=== PATIENT | male | born 1960 | race African-American/Black ===

== ENCOUNTER 2016-11-18 10:30 | Inpatient (IN) | payer BC ==
[~2016-11-18] VITALS: Ht 175.3 cm; Wt 96.7 kg
[~2016-11-18 10:30] MED LIST: HYDR12.58 PO; METF500T4 PO; METO-269 PO
[2016-11-18] MEDS ORDERED: LOSA25TA4 PO (11:03)
[2016-11-18] MEDS ORDERED: METF500T4 PO (11:04)
[2016-11-18] MEDS ORDERED: TAMS0.4C2 PO (11:04)
[2016-11-18] MEDS ORDERED: MELO-156 PO (11:04)
--- NOTE | 2016-11-18 11:05 | PHYS DOC ---
Past Medical History Past Medical History: Hypertension Additional Past Surgical Histo: L knee, R shoulder Adult General Chief Complaint Chief Complaint: OTHER COMPLAINTS HPI HPI Patient is a 55 year old male who presents with L side numbness. Patient reports he was getting ready for islam ~1015 when he started having L side numbness. He reports the sensation started in his face the progressed to his L arm and eventually to his L leg as well. This has mostly resolved by this point. He says he may have had a little weakness as well, but not at this time. No prior similar episodes. Patient noted to have elevated blood pressure; he has not yet taken his daily meds for this. Review of Systems Review of Systems Constitutional: Denies fever or chills Eyes: Denies change in visual acuity or eye pain HENT: Denies nasal congestion or sore throat Respiratory: Denies cough or shortness of breath Cardiovascular: Denies chest pain GI: Denies abdominal pain, nausea, vomiting, bloody stools or diarrhea : Denies dysuria or hematuria Musculoskeletal: Denies back pain or joint pain Integument: Denies rash or skin lesions Neurologic: L side numbness. Denies headache Current Medications Current Medications Current Medications Medications (Trade) Dose Ordered Sig/Vernon Start Time Stop Time Status Last Admin Dose Admin Hydralazine HCl (Apresoline) 10 mg 1X ONCE 11/18/16 11:30 11/18/16 11:31 DC 11/18/16 11:43 10 MG Allergies Allergies Allergies Coded Allergies Type Severity Reaction Last Updated Verified No Known Drug Allergies 10/07/15 No Physical Exam Physical Exam Constitutional: Well developed, well nourished, no acute distress, non-toxic appearance HENT: Normocephalic, atraumatic, bilateral external ears normal Eyes: PERRL, EOMI, conjunctiva normal, no discharge Neck: Normal range of motion, no stridor Cardiovascular: Heart rate normal, regular rhythm, no murmur Lungs & Thorax: Bilateral breath sounds clear to auscultation Abdomen: Bowel sounds normal, soft, non-distended, no TTP Skin: Warm, dry, no erythema, no rash Extremities: No obvious deformity, no edema Neurologic: Alert and oriented X 3, GCS 15, CN II-XII grossly intact except for L facial numbness, strength intact and symmetrical throughout, sensation to light touch intact diminished in LUE/LLE compared to RUE/RLE, no dystaxia noted Psychologic: Affect normal, judgement normal, mood normal Current Patient Data Vital Signs Vital Signs Date Time Temp Pulse Resp B/P Pulse Ox O2 Delivery O2 Flow Rate FiO2 11/18/16 11:43 57 187/88 11/18/16 10:46 98.4 18 95 Room Air 98.4 Lab Values Laboratory Tests Test 11/18/16 11:25 White Blood Count 5.8x10^3/uL (4.0-11.0) Red Blood Count 4.79x10^6/uL (4.30-5.70) Hemoglobin 13.5g/dL (13.0-17.5) Hematocrit 41.2% (39.0-53.0) Mean Corpuscular Volume 86fL (79-100) Mean Corpuscular Hemoglobin 28pg (25-35) Mean Corpuscular Hemoglobin Concent 33g/dL (31-37) Red Cell Distribution Width 14.1% (11.5-14.5) Platelet Count 187x10^3/uL (140-400) Neutrophils (%) (Auto) 54% (31-73) Lymphocytes (%) (Auto) 32% (24-48) Monocytes (%) (Auto) 10% (0-9) H Eosinophils (%) (Auto) 3% (0-3) Basophils (%) (Auto) 1% (0-3) Neutrophils # (Auto) 3.1x10^3uL (1.8-7.7) Lymphocytes # (Auto) 1.8x10^3/uL (1.0-4.8) Monocytes # (Auto) 0.6x10^3/uL (0.0-1.1) Eosinophils # (Auto) 0.2x10^3/uL (0.0-0.7) Basophils # (Auto) 0.1x10^3/uL (0.0-0.2) Prothrombin Time 13.9SEC (11.7-14.0) Prothrombin Time INR 1.1 (0.8-1.1) PTT 31SEC (24-38) Sodium Level 144mmol/L (136-145) Potassium Level 4.0mmol/L (3.5-5.1) Chloride Level 107mmol/L (98-107) Carbon Dioxide Level 27mmol/L (21-32) Anion Gap 10 (6-14) Blood Urea Nitrogen 16mg/dL (8-26) Creatinine 1.1mg/dL (0.7-1.3) Estimated GFR (Cockcroft-Gault) 83.8 BUN/Creatinine Ratio 15 (6-20) Glucose Level 135mg/dL (70-99) H Calcium Level 8.8mg/dL (8.5-10.1) Total Bilirubin 0.8mg/dL (0.2-1.0) Aspartate Amino Transferase (AST) 17U/L (15-37) Alanine Aminotransferase (ALT) 21U/L (16-63) Alkaline Phosphatase 59U/L (46-116) Total Protein 7.1g/dL (6.4-8.2) Albumin 3.5g/dL (3.4-5.0) Albumin/Globulin Ratio 1.0 (1.0-1.7) Laboratory Tests 11/18/16 11:25 Laboratory Tests 11/18/16 11:25 EKG EKG EKG (my read): sinus rhythm, rate 59, LAD, intervals wnl except RR 1016ms, no acute ST/T changes Radiology/Procedures Radiology/Procedures CT head: IMPRESSION: 1. Scattered areas of hypodensity within the cerebral white matter, a nonspecific finding which may be due to chronic small vessel disease. This is not only seen on the remote prior study. 2. Note is made that MRI is more sensitive for acute infarction. CXR: IMPRESSION: No acute pulmonary finding. Course & Med Decision Making Course & Med Decision Making Pertinent Labs and Imaging studies reviewed. (See chart for details) Patient is 55 year old male who presents with L side numbness. Symptoms improving. Concern for TIA. Given no findings other than numbness on exam as well as resolution of symptoms, I believe the risk of tPA for this patient far outweighs the possible benefit. CT head, CXR, EKG, labs ordered to evaluate. Dose of HTN meds ordered. Imaging results as above. Blood work unremarkable. Discussed results with patient, who at this time only has numbness in his L face. Discussed with Dr. Gil, will admit under his care for further evaluation and treatment. Dragon Disclaimer Dragon Disclaimer This electronic medical record was generated, in whole or in part, using a voice recognition dictation system. Departure Departure Impression: Primary Impression: Numbness and tingling of left side of face Additional Impressions: Numbness and tingling of left leg Numbness and tingling in left arm Disposition: 09 ADMITTED INPATIENT Admitting Physician: Ahsan Gil Condition: STABLE Referrals: DILLON ROJAS (PCP) Problem Qualifiers LISSETTE GILMORE MD Nov 18, 2016 11:05
[2016-11-18] MEDS ORDERED: hydrALAZINE 20 MG/ML VIAL. IVP ONE (11:30)
[2016-11-18 11:31] LABS: BASO # 0.1 x10^3/uL (0.0-0.2); BASO % 1 % (0-3); EOS % 3 % (0-3); HEMATOCRIT 41.2 % (39.0-53.0); HEMOGLOBIN 13.5 g/dL (13.0-17.5); LYMPH # 1.8 x10^3/uL (1.0-4.8); LYMPH % 32 % (24-48); MEAN CORPUSCULAR HEMOGLOBIN 28 pg (25-35); MEAN CORPUSCULAR HGB CONC 33 g/dL (31-37); MEAN CORPUSCULAR VOLUME 86 fL (79-100); MONO % 10 % (0-9); NEUT % 54 % (31-73); PLATELET COUNT 187 x10^3/uL (140-400); RED BLOOD COUNT 4.79 x10^6/uL (4.30-5.70); RED CELL DISTRIBUTION WIDTH 14.1 % (11.5-14.5); WHITE BLOOD COUNT 5.8 x10^3/uL (4.0-11.0)
--- NOTE | 2016-11-18 11:35 | RAD ---
EXAM: Chest, single view. HISTORY: Left-sided numbness. COMPARISON: 08/24/2015. FINDINGS: A frontal view of the chest is obtained. There is no infiltrate, effusion or pneumothorax. The heart is normal in size. IMPRESSION: No acute pulmonary finding.
[2016-11-18 11:41] LABS: INR 1.1 (0.8-1.1); PROTHROMBIN TIME PATIENT 13.9 SEC (11.7-14.0)
[2016-11-18 11:42] LABS: CALCIUM 8.8 mg/dL (8.5-10.1); CREATININE 1.1 mg/dL (0.7-1.3); GFR 83.8
--- NOTE | 2016-11-18 11:42 | RAD ---
EXAM: Head CT without contrast. HISTORY: Left-sided numbness. TECHNIQUE: Computed tomographic images of the head were obtained without contrast. COMPARISON: 02/10/2010. FINDINGS: There is no acute or subacute extra-axial or intraparenchymal hemorrhage. There is no mass effect or midline shift. There is no hydrocephalus. There are areas of decreased attenuation within the cerebral white matter, nonspecific and likely related to chronic small vessel disease. The visualized portions of the orbits, paranasal sinuses and mastoid air cells are unremarkable. No suspicious calvarial lesion is seen. IMPRESSION: 1. Scattered areas of hypodensity within the cerebral white matter, a nonspecific finding which may be due to chronic small vessel disease. This is not only seen on the remote prior study. 2. Note is made that MRI is more sensitive for acute infarction. PQRS Compliance Statement: One or more of the following individualized dose reduction techniques were utilized for this examination: 1. Automated exposure control 2. Adjustment of the mA and/or kV according to patient size 3. Use of iterative reconstruction technique
[2016-11-18 11:48] LABS: ALBUMIN 3.5 g/dL (3.4-5.0); TOTAL BILIRUBIN 0.8 mg/dL (0.2-1.0); TOTAL PROTEIN 7.1 g/dL (6.4-8.2)
[2016-11-18] MEDS ORDERED: ONDANSETRON PF 4 MG/2 ML VIAL. IV PRN (12:30)
[2016-11-18] MEDS ORDERED: ACETAMINOPHEN 325 MG TABLET. PO PRN (12:30)
[2016-11-18] MEDS ORDERED: MORPHINE SULFATE 2 MG/ML DISP.SYRIN. IV PRN (12:30)
--- NOTE | 2016-11-18 12:41 | EKG ---
[facility] [address] [place] [address] Test Date: 2016-11-18 Test Time: 11:11:29 Pat Name: JENI STARK Department: Room: [facility] Gender: M Voice Intercept Technician: [ : 1960 Requested By: LISSETTE GILMORE Order Number: [id number] Reading MD: Danisha Kwon Measurements Intervals [place] Rate: 59 P: 28 CA: 164 QRS: -22 QRSD: 72 T: -22 QT: 406 QTc: 406 Interpretive Statements SINUS RHYTHM LEFTWARD AXIS T ABNORMALITY IN INFERIOR LEADS RI6.01 No previous ECG available for comparison Electronically Signed On 11-18-2016 19:29:12 CDT by Danisha Kwon
--- NOTE | 2016-11-18 12:43 | ACF ---
Admission Forms Criteria NEUROLOGY GRG Clinical Indications for Admission to Inpatient Care (Place ' X' for any and all applicable criteria): Hospital admission is needed for appropriate care of the patient because of ANY ONE of the following: [ ]I. New-onset or worsening altered mental status remaining after emergency or observation level care (as appropriate) (9)(10)(11) [ ]II. Severe J[employer] WORKER infections or inflammatory conditions, including ANY ONE of the following(1)(2)(3): [ ]a) Intracranial abscess [ ]b) Spinal abscess or myelitis [ ]c) Tuberculous or other nonbacterial, nonviral JIG WORKER infection(8) [ ]III. Encephalitis(1)(2)(3) [ ]IV. Status epilepticus or repetitive seizures not controlled with emergent treatment [A] (7)(8) [ ]V. Transient alteration in consciousness with high-risk etiology; examples include (12)(13): [ ]a) Cardiovascular source [ ]b) Cataplexy [ ]. Cerebral aneurysm requiring ANY ONE of the following(14): [ ]a) IV antihypertensives or vasoactive agents [ ]b) Sedation and analgesia for suspected leak [ ]c) Need for external ventricular drainage and cerebral perfusion pressure monitoring [ ]d) Emergent evaluation to determine need for surgical clipping or endovascular coiling by interventional radiology. If surgery is required ( Also use Craniotomy, Supratentorial, for Surgery of Bleeding Intracranial Aneurysm (for bleeding aneurysm) or Craniotomy, Supratentorial (for nonbleeding aneurysm) as appropriate. [ ]VII. Altered mental status that is severe or persistent(16) [ ]VIII New-onset severe neurologic findings requiring inpatient care; examples include: [ ]a) Papilledema [ ]b) Cerebral edema [ ]c) Mass effect on imaging [X]IX. New-onset severe neurologic symptom requiring inpatient care indicated by ANY ONE of the following: [ ]a) Aphasia(15) [ ]b) Weakness (grade 3 or less) [ ]c) Paralysis (eg, hemiplegia) [ ]d) Spasticity(16) [ ]e) Ataxia(17) [ ]f) Amnesia(18) [ ]g) Involuntary movements(19) [ ]h) Vertigo [X]i) Other severe neurologic symptom not treatable at alternative level of care (eg, observation care) [ ]X. Guillain-[place] syndrome(20) [ ]XI. Myasthenia gravis crisis or inpatient monitoring need as indicated by ANY ONE of the following(21): [ ]a) Inadequate airway protection [ ]b) Respiratory insufficiency requiring intubation or inpatient. monitoring [ ]c) Progressive dysphagia with failure to thrive [ ]d) Intensive treatment (eg, course of plasmapheresis) with inadequate outpatient situation to monitor patients status [ ]XII. Multiple sclerosis or other acute demyelinating disease requiring inpatient care as indicated by ANY ONE of the following (22)(23): [ ]a) Acute severe deterioration requiring inpatient treatment (eg, IV steroids, plasmapheresis, close observation) [ ]b) Acute complication requiring inpatient care (eg, sepsis, severe decubitus, aspiration) [ ]XIII. Intracranial hypertension (eg, pseudotumor cerebri) requiring inpatient care (eg, acute visual loss, inadequate oral intake) (24) [ ]XIV.Parkinson disease requiring inpatient care (Also use Optimal Recovery Care Criteria or General Recovery Criteria as appropriate) indicated by ANY ONE of the following(25): [ ]a) Infection (eg, aspiration pneumonia) not treatable at alternative level of care [ ]b) Volume depletion not responsive to emergency and observation care treatment (as appropriate) [ ]c) Life-threatening agitation or psychotic behavior not treatable on emergency, observation care, or alternative level (eg, residential) basis [ ]d) Severe medication withdrawal effects (eg, freezing, neuroleptic malignant syndrome) not responsive to emergency and observation care treatment (as appropriate) [ ]e) Other severe manifestation not treatable at alternative level of care [ ]XV.Amyotrophic lateral sclerosis with inpatient care needs as indicated by ANY ONE of the following(26): [ ]a) Acute complications requiring inpatient care (Use Optimal Recovery Care Criteria or General Recovery Criteria as appropriate); examples include: [ ]i) Aspiration pneumonia [ ]ii) Sepsis [ ]b) Dehydration or hypovolemia (not responsive to emergency and observation care treatment as appropriate) AND artificial support desired [ ]c) Inadequate airway protection AND artificial support desired [ ]d) Severe ventilatory insufficiency AND artificial support desired [ ]XVI.Severe myopathy, neuropathy, or other neuromuscular disease as indicated by ANY ONE of the following: [ ]a) New-onset severe diffuse weakness (eg, strength 3/5 or less) [ ]b) Severe dysphagia [ ]c) Dyspnea at rest or with minimal exertion (new) [ ]d) Inadequate airway protection [ ]e) Inadequate ventilation as indicated by ANY ONE of the following : [ ]i) Partial pressure of carbon dioxide greater than 44 mm Hg (5.9 kPa) (new) [ ]ii) Reduced peak expiratory flow rate (new) [ ]iii) Vital capacity less than 50% of predicted ( less than 15 mL/kg) [ ]iv) Peak inspiratory force less negative than -30 cm H20 (-2942 Pa) [ ]XVII.Complications of congenital or degenerative disease (eg, infection, seizures, dehydration, injury) not responsive to emergency and observation care treatment (as appropriate ) [C](16)(29)(30) [ ]XVIII.Suspected or confirmed nerve or muscle toxic injury, including ANY ONE of the following: [ ]a) Rhabdomyolysis(31) [ ]b) Botulism(32) [ ]c) Other severe toxin-induced sign or symptom [ ]XIX. Neurologic trauma requiring inpatient treatment (medical) indicated by ANY ONE of the following(33)(34): [ ]a) Vital signs or neurologic signs more frequently than every 4 hours [ ]b) Hyperosmolar therapy [ ]c) Respiratory monitoring [ ]d) Intracranial pressure monitoring and treatment [ ]e) Stabilization and immobilization device placement (eg, braces, body jacket) [ ]f) Intubation & mechanical ventilation for airway protection or therapeutic hyperventilation [ ]g) Other treatment or monitoring needed that requires inpatient level of care [ ]XX.Complications of neurologic devices (eg, ventricular shunt, neurostimulator) requiring ANY ONE of the following(35)(36): [ ]a) IV antibiotics with monitoring while awaiting culture results [ ]b) Monitoring for hydrocephalus [ ]XXI Vasculitis with ANY ONE of the following(4)(5): [ ]a) Altered mental status [ ]b) Psychosis [ ]c) Seizures [ ]XXII. Neurology condition and ALL of the following: [ ]a) Symptom or finding for which emergency and observation care have failed or are not considered appropriate (Use General Criteria: Observation Care as appropriate) [ ]b) Presence of ANY ONE of the following: [ ]i) A General Admission Criteria [ ]ii A Pediatric General Admission Criteria The original [facility] content created by Rodrick Coppola has been revised. The portions of the content which have been revised are identified through the use of italic text or in bold, and [facility] has neither reviewed nor approved the modified material. All other unmodified content is copyright [facility] Please see references footnoted in the original [facility] edition 2016 Admission Criteria Met?: Yes MACHO BEDOYA Nov 18, 2016 12:43
[2016-11-18] MEDS ORDERED: ASPIRIN ENTERIC COATED 325 MG TABLET.DR. PO ONE (13:00)
[2016-11-18 14:17] VITALS: BP 171/93
[2016-11-18] MEDS ORDERED: METO100T11 (14:21)
[2016-11-18] MEDS: METOPROLOL SUCC 24HR ER 100 MG TAB.ER.24H. PO SCH (14:49)
[2016-11-18 15:30] VITALS: BP 171/93
[2016-11-18] MEDS ORDERED: LOSARTAN POTASSIUM 25 MG TABLET. PO SCH (15:30)
[2016-11-18] MEDS: TAMSULOSIN 0.4 MG CAP.ER.24H. PO SCH (15:39)
[2016-11-18] MEDS: MELOXICAM 7.5 MG TABLET PO SCH (15:39)
[2016-11-18 15:59] LABS: BILIRUBIN,URINE NEGATIVE (NEG); GLUCOSE,URINE NEGATIVE (NEG); NITRITE,URINE NEGATIVE (NEG); PROTEIN,URINE NEGATIVE (NEG-TRACE); UROBILINOGEN,URINE 0.2 mg/dL (0.2 mg/dL)
[2016-11-18 16:08] LABS: BARBITURATES NEG (NEG); BENZODIAZEPINES NEG (NEG); CANNABINOIDS NEG (NEG); COCAINE NEG (NEG); METHADONE NEG (NEG); OPIATES NEG (NEG); PHENCYCLIDINE NEG (NEG)
[2016-11-18 16:09] LABS: ETHANOL, URINE NEG (NEG)
[2016-11-18] MEDS ORDERED: LOSA100T6 PO (16:11)
[2016-11-18 16:14] LABS: BACTERIA,URINE 0 /HPF (0-FEW); RBC,URINE RARE /HPF (0-2); SQUAMOUS EPITHELIAL CELL,UR OCC /LPF; WBC,URINE 0 /HPF (0-4)
[2016-11-18] MEDS ORDERED: LOSARTAN POTASSIUM 25 MG TABLET. PO ONE ×2 (16:20→17:00)
--- NOTE | 2016-11-18 16:32 | PDOC2 ---
NEUROLOGY CONSULT Date of Admission Date of Admission DATE: 11/18/16 TIME: 16:21 Reason for Consult Reason for Consult: IMPRESSION: Left side UE and LE weakness. Left side of lip numbness. Reversible CVa syndrome? Hypertensive urgency, BP 219/98-102 mmHg. Headache. HTN, not well controlled. RECOMMENDATIONS/PLAN: BP control. Treat medical diseases. ASA 325 mg daily. Brain MRI w/o contrast. Carotid A US + Doppler. Echo Fasting lipids, TSH, Vit B12. HISTORY OF THE PRESENT ILLNESS: 55-y-old AA male patient with Hx of HTN but not well controlled. He developed symptoms of left side lip numbness, left side Ue and LE weakness since a.m on 11/18 to come to the ER of [facility]. His symptoms resolved when got to the ER. PAST MEDICAL HISTORY: Please see above. PAST SURGERY HISTORY: Right Shoulder Left knee surgery. ALLERGY: Reviewed. MEDICATIONS: Refer to [facility] FAMILY HISTORY: Non contributory. SOCIAL HISTORY: Lives at home. Denies current smoking, drinking, and illicit drug use. REVIEW OF SYSTEMS: Constitutional: No malnutrition, weight loss, cachexia. Head: No traumatic brain or head injury. Skin: No edema, or rash. Ear: No infection. Eyes: No vision loss or color blindness. Nose: No bleeding or purulent discharges. Hearing: No hearing decrease. Neck: No injury. Cardiac: HTN Pulmonary: No COPD. GI: No GI ulcer, GI bleeding. Urinary/genital: No dysuria, hematuria, incontinence, urinary retention. Endocrinologic: No cousin face, craniofacial dysmorphism, polydactyly, goiter. Skeletomuscular: No muscular atrophy, deformity. Neurological: see HP. Psychiatric: Denies drug use/abuse. Otherwise, not -xqqsc review of systems. PHYSICAL EXAMINATION: General appearance is in subacute distress. HEENT: Normocephalic and nontraumatic. Eyes, nose, ears, and throat are unremarkable. Neck is supple. No lymphadenopathy. No crepitus. Cardiovascular: S1, S2, regular rate and rhythm. Pulmonary: Clear to auscultation bilaterally. Abdomen: Bowel sounds are positive. Abdomen is soft, nontender, and nondistended. Extremities: No rash, lesions, or edema. No restriction of range of motion NEUROLOGICAL EXAMINATION: Alert Oriented to time, place and person. PERRL. EOMI. CN: no focal findings. Muscle tone: within normal. Muscle strength: 5 right side, 5- or 5 left side. DTR: 2+ Plantar reflex: Flexor response bilaterally Gait: not examined in bed. Sensory exam: no abnormal findings. No acute cerebellar signs elicited. F-T-N test fine. Current Medications Current Medications Current Medications Hydralazine HCl (Apresoline) 10 mg 1X ONCE IVP Last administered on 11/18/16 11:43; Start 11/18/16 at 11:30; Stop 11/18/16 at 11:31; Status DC Ondansetron HCl (Zofran) 4 mg PRN Q8HRS PRN IV NAUSEA/VOMITING; Start 11/18/16 at 12:30; Stop 11/19/16 at 12:29 Morphine Sulfate 2 mg PRN Q2HR PRN IV PAIN; Start 11/18/16 at 12:30; Stop at 12:29 Acetaminophen (Tylenol) 650 mg PRN Q4HRS PRN PO FEVER; Start 11/18/16 at 12:30; Stop 11/19/16 at 12:29 Aspirin (Ecotrin) 325 mg 1X ONCE PO Last administered on 11/18/16 13:28; Start 11/18/16 at 13:00; Stop 11/18/16 at 13:01; Status DC Losartan Potassium (Cozaar) 25 mg DAILY PO Last administered on 11/18/16 15:40 ; Start 11/18/16 at 15:30; Stop 11/18/16 at 16:20; Status DC Meloxicam (Mobic) 7.5 mg DAILY PO Last administered on 11/18/16 15:39; Start at 15:30 Metformin HCl (Glucophage) 500 mg BIDWMEALS PO ; Start 11/18/16 at 17:00 Metoprolol Succinate (Toprol Xl) 100 mg DAILY08 PO Last administered on 14:49; Start 11/18/16 at 15:30 Tamsulosin HCl (Flomax) 0.4 mg DAILY PO Last administered on 11/18/16 15:39; Start 11/18/16 at 16:00 Losartan Potassium (Cozaar) 75 mg 1X ONCE PO ; Start 11/18/16 at 16:20; Stop 11/18/16 at 16:21; Status DC Non-Formulary Medication 100 tab DAILY08 PO ; Start 11/19/16 at 08:00; Status UNV Active Scripts Active Reported Losartan Potassium 100 Mg Tablet 100 Tab PO DAILY08 Metoprolol Succinate ( Xl ) (Metoprolol Succinate) 100 Mg Tab.er.24h 100 Meloxicam 7.5 Mg Tablet 7.5 Mg PO DAILY Tamsulosin Hcl 0.4 Mg Cap.er.24h 0.4 Mg PO DAILY Metformin Hcl 500 Mg Tablet 500 Mg PO BIDWMEALS Allergies Allergies: Coded Allergies: No Known Drug Allergies (Unverified , 10/07/15) Vitals VITALS Vital Signs Date Time Temp Pulse Resp B/P Pulse Ox O2 Delivery O2 Flow Rate FiO2 11/18/16 15:40 68 171/93 11/18/16 15:30 97.5 16 100 Room Air 97.5 Labs Labs Laboratory Tests Test 11/18/16 11:25 11/18/16 15:19 White Blood Count 5.8x10^3/uL (4.0-11.0) Red Blood Count 4.79x10^6/uL (4.30-5.70) Hemoglobin 13.5g/dL (13.0-17.5) Hematocrit 41.2% (39.0-53.0) Mean Corpuscular Volume 86fL (79-100) Mean Corpuscular Hemoglobin 28pg (25-35) Mean Corpuscular Hemoglobin Concent 33g/dL (31-37) Red Cell Distribution Width 14.1% (11.5-14.5) Platelet Count 187x10^3/uL (140-400) Neutrophils (%) (Auto) 54% (31-73) Lymphocytes (%) (Auto) 32% (24-48) Monocytes (%) (Auto) 10% (0-9) Eosinophils (%) (Auto) 3% (0-3) Basophils (%) (Auto) 1% (0-3) Neutrophils # (Auto) 3.1x10^3uL (1.8-7.7) Lymphocytes # (Auto) 1.8x10^3/uL (1.0-4.8) Monocytes # (Auto) 0.6x10^3/uL (0.0-1.1) Eosinophils # (Auto) 0.2x10^3/uL (0.0-0.7) Basophils # (Auto) 0.1x10^3/uL (0.0-0.2) Prothrombin Time 13.9SEC (11.7-14.0) Prothromb Time International Ratio 1.1 (0.8-1.1) Activated Partial Thromboplast Time 31SEC (24-38) Sodium Level 144mmol/L (136-145) Potassium Level 4.0mmol/L (3.5-5.1) Chloride Level 107mmol/L (98-107) Carbon Dioxide Level 27mmol/L (21-32) Anion Gap 10 (6-14) Blood Urea Nitrogen 16mg/dL (8-26) Creatinine 1.1mg/dL (0.7-1.3) Estimated GFR (Cockcroft-Gault) 83.8 BUN/Creatinine Ratio 15 (6-20) Glucose Level 135mg/dL (70-99) Calcium Level 8.8mg/dL (8.5-10.1) Total Bilirubin 0.8mg/dL (0.2-1.0) Aspartate Amino Transf (AST/SGOT) 17U/L (15-37) Alanine Aminotransferase (ALT/SGPT) 21U/L (16-63) Alkaline Phosphatase 59U/L (46-116) Total Protein 7.1g/dL (6.4-8.2) Albumin 3.5g/dL (3.4-5.0) Albumin/Globulin Ratio 1.0 (1.0-1.7) Thyroid Stimulating Hormone (TSH) 1.344uIU/mL (0.358-3.74) Urine Collection Type Unknown Urine Color Yellow Urine Clarity Clear Urine pH 8.0 Urine Specific [place] 1.010 Urine Protein Negativemg/dL (NEG-TRACE) Urine Glucose (UA) Negativemg/dL (NEG) Urine Ketones (Stick) Tracemg/dL (NEG) Urine Blood Negative (NEG) Urine Nitrite Negative (NEG) Urine Bilirubin Negative (NEG) Urine Urobilinogen Dipstick 0.2mg/dL (0.2 mg/dL) Urine Leukocyte Esterase Negative (NEG) Urine RBC Rare/HPF (0-2) Urine WBC 0/HPF (0-4) Urine Squamous Epithelial Cells Occ/LPF Urine Bacteria 0/HPF (0-FEW) Urine Opiates Screen Neg (NEG) Urine Methadone Screen Neg (NEG) Urine Barbiturates Neg (NEG) Urine Phencyclidine Screen Neg (NEG) Urine Amphetamine/Methamphetamine Neg (NEG) Urine Benzodiazepines Screen Neg (NEG) Urine Cocaine Screen Neg (NEG) Urine Cannabinoids Screen Neg (NEG) Urine Ethyl Alcohol Neg (NEG) Laboratory Tests Test 11/18/16 11:25 11/18/16 15:19 White Blood Count 5.8x10^3/uL (4.0-11.0) Red Blood Count 4.79x10^6/uL (4.30-5.70) Hemoglobin 13.5g/dL (13.0-17.5) Hematocrit 41.2% (39.0-53.0) Mean Corpuscular Volume 86fL (79-100) Mean Corpuscular Hemoglobin 28pg (25-35) Mean Corpuscular Hemoglobin Concent 33g/dL (31-37) Red Cell Distribution Width 14.1% (11.5-14.5) Platelet Count 187x10^3/uL (140-400) Neutrophils (%) (Auto) 54% (31-73) Lymphocytes (%) (Auto) 32% (24-48) Monocytes (%) (Auto) 10% (0-9) Eosinophils (%) (Auto) 3% (0-3) Basophils (%) (Auto) 1% (0-3) Neutrophils # (Auto) 3.1x10^3uL (1.8-7.7) Lymphocytes # (Auto) 1.8x10^3/uL (1.0-4.8) Monocytes # (Auto) 0.6x10^3/uL (0.0-1.1) Eosinophils # (Auto) 0.2x10^3/uL (0.0-0.7) Basophils # (Auto) 0.1x10^3/uL (0.0-0.2) Prothrombin Time 13.9SEC (11.7-14.0) Prothromb Time International Ratio 1.1 (0.8-1.1) Activated Partial Thromboplast Time 31SEC (24-38) Sodium Level 144mmol/L (136-145) Potassium Level 4.0mmol/L (3.5-5.1) Chloride Level 107mmol/L (98-107) Carbon Dioxide Level 27mmol/L (21-32) Anion Gap 10 (6-14) Blood Urea Nitrogen 16mg/dL (8-26) Creatinine 1.1mg/dL (0.7-1.3) Estimated GFR (Cockcroft-Gault) 83.8 BUN/Creatinine Ratio 15 (6-20) Glucose Level 135mg/dL (70-99) Calcium Level 8.8mg/dL (8.5-10.1) Total Bilirubin 0.8mg/dL (0.2-1.0) Aspartate Amino Transf (AST/SGOT) 17U/L (15-37) Alanine Aminotransferase (ALT/SGPT) 21U/L (16-63) Alkaline Phosphatase 59U/L (46-116) Total Protein 7.1g/dL (6.4-8.2) Albumin 3.5g/dL (3.4-5.0) Albumin/Globulin Ratio 1.0 (1.0-1.7) Thyroid Stimulating Hormone (TSH) 1.344uIU/mL (0.358-3.74) Urine Collection Type Unknown Urine Color Yellow Urine Clarity Clear Urine pH 8.0 Urine Specific [place] 1.010 Urine Protein Negativemg/dL (NEG-TRACE) Urine Glucose (UA) Negativemg/dL (NEG) Urine Ketones (Stick) Tracemg/dL (NEG) Urine Blood Negative (NEG) Urine Nitrite Negative (NEG) Urine Bilirubin Negative (NEG) Urine Urobilinogen Dipstick 0.2mg/dL (0.2 mg/dL) Urine Leukocyte Esterase Negative (NEG) Urine RBC Rare/HPF (0-2) Urine WBC 0/HPF (0-4) Urine Squamous Epithelial Cells Occ/LPF Urine Bacteria 0/HPF (0-FEW) Urine Opiates Screen Neg (NEG) Urine Methadone Screen Neg (NEG) Urine Barbiturates Neg (NEG) Urine Phencyclidine Screen Neg (NEG) Urine Amphetamine/Methamphetamine Neg (NEG) Urine Benzodiazepines Screen Neg (NEG) Urine Cocaine Screen Neg (NEG) Urine Cannabinoids Screen Neg (NEG) Urine Ethyl Alcohol Neg (NEG) ELANA FOOTE MD Nov 18, 2016 16:32
--- NOTE | 2016-11-18 18:15 | RAD ---
PROCEDURE MR of the brain without contrast HISTORY Left-sided numbness and weakness. Headaches. TECHNIQUE Routine multiplanar MR sequences are obtained. Emergency interpretation requested. COMPARISON None FINDINGS Posterior fossa and visualized brainstem demonstrate no abnormality. No evidence of mass lesion or mass effect. There are numerous nodular foci of hyperintense T2 signal within the periventricular white matter bilaterally. No evidence of acute ischemia or restricted diffusion. Major vascular structures demonstrate the expected flow voids. The orbits appear unremarkable. The visualized sinuses appear clear. IMPRESSION 1. No evidence of acute infarction. 2. Numerous and extensive nodular periventricular T2 signal foci. This is a very nonspecific finding. This can be associated with chronic small vessel ischemic disease, although this extensive appearance would usually be expected in patients of a slightly greater age. Multiple sclerosis or other demyelinating disorder could be considered. Infectious or inflammatory etiology is possible depending on clinical correlation. No obvious mass lesion or mass effect. Electronically signed by: Noe Coelho MD (Nov 18, 2016 18:13:48)
[2016-11-18] MEDS: METFORMIN 500 MG TABLET. PO SCH (18:18)
[2016-11-18 19:10] VITALS: BP 137/80
--- NOTE | 2016-11-18 21:14 | HP ---
ADMIT DATE: 11/18/2016 CHIEF COMPLAINT: Left-sided weakness and numbness. HISTORY OF PRESENT ILLNESS: The patient is a pleasant middle-aged relatively healthy male who presented with left-sided numbness and weakness that occurred for a couple of hours. He was ____ it went away. Apparently, a couple years ago, he had a CAT scan that showed the possibility of multiple sclerosis. I have discussed the case with the ER physician. We are going to admit the patient and get an MRI and consult Neurology. PAST MEDICAL HISTORY: Possible early MS although we are not sure on this, hypertension, left knee surgery and right shoulder surgery. ALLERGIES: None. FAMILY HISTORY: Hypertension. SOCIAL HISTORY: He does not drink, smoke or take drugs. 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 MEDICATIONS: Reviewed, please refer to the MRAD. REVIEW OF SYSTEMS: GENERAL: No history of weight change, weakness or fevers. SKIN: No bruising, hair changes or rashes. EYES: No blurred, double or loss of vision. NOSE AND THROAT: No history of nosebleeds, hoarseness or sore throat. HEART: No history of palpitations, chest pain or shortness of breath on exertion. LUNGS: Denies cough, hemoptysis, wheezing or shortness of breath. GASTROINTESTINAL: Denies changes in appetite, nausea, vomiting, diarrhea or constipation. GENITOURINARY: No history of frequency, urgency, hesitancy or nocturia. NEUROLOGIC: Denies history of numbness, tingling, tremor or weakness. PSYCHIATRIC: No history of panic, anxiety or depression. ENDOCRINE: No history of heat or cold intolerance, polyuria or polydipsia. EXTREMITIES: Denies muscle weakness, joint pain, pain on walking or stiffness. PHYSICAL EXAMINATION: VITAL SIGNS: Temperature afebrile, pulse 68, respirations 20, blood pressure ____. GENERAL: He is alert, cooperative. His is present. HEART: Normal S1, S2. LUNGS: Clear. ABDOMEN: Soft, positive bowel sounds. EXTREMITIES: No edema. SKIN: No rashes. PSYCHIATRIC: He is stable. VASCULAR: Good capillary refill. ENDOCRINE: No thyromegaly. LYMPHATICS: No cervical nodes. HEMATOPOIETIC: No bruising. NEUROLOGICAL: He is moving all extremities. No focal deficits. LABORATORY DATA: Hematology normal. Electrolytes normal. INR normal at 1.1. Drug screen negative. Urinalysis negative. IMAGING DATA: MRI of the brain shows no acute infarct. He does have numerous nonspecific findings in the periventricular T2 signal foci. The radiologist states that this can be associated with small vessel ischemic disease. He also states that multiple scoliosis or other demyelinating disorders could be considered. ASSESSMENT AND PLAN: Transient ischemic attack versus autoimmune central nervous system disease such as multiple sclerosis. The patient has been admitted. We are consulting Neurology. Frequent neuro checks. Continue home medicines, cardiac monitoring. MISSY BATES DO DR: MARCO/tay JOB#: [id number] / [id number]
[2016-11-18 22:45] VITALS: BP 145/74
[2016-11-19] VITALS (7 sets, daily range): BP systolic 130–185; BP diastolic 71–103
[2016-11-19 05:09] LABS: CHOLESTEROL/HDL RATIO 4.3
[2016-11-19] MEDS: ASPIRIN 325 MG TABLET PO SCH (08:52)
[2016-11-19] MEDS: LOSARTAN POTASSIUM 50 MG TABLET. PO SCH (08:53)
[2016-11-19] MEDS: METFORMIN 500 MG TABLET. PO SCH ×2 (08:53→18:16)
[2016-11-19] MEDS: METOPROLOL SUCC 24HR ER 100 MG TAB.ER.24H. PO SCH (08:54)
[2016-11-19] MEDS: TAMSULOSIN 0.4 MG CAP.ER.24H. PO SCH ×2 (08:55→11:28)
[2016-11-19] MEDS: MELOXICAM 7.5 MG TABLET PO SCH (08:55)
[2016-11-19] MEDS ORDERED: ONDANSETRON PF 4 MG/2 ML VIAL. IV PRN (10:30)
--- NOTE | 2016-11-19 11:25 | RAD ---
Bilateral duplex carotid sonography History: Weakness and numbness, TIA, facial numbness. Duplex sonography of the cervical portion of both carotid arteries was performed. Findings: Right side: Peak systolic flow velocity of the CCA is 91 cm/sec. Peak systolic flow velocity of the ICA is 75 cm/sec. The ICA/CCA ratio is 0.82. Peak end diastolic flow velocity of the ICA is 25 cm/sec. The peak systolic velocity of the ECA is 125 cm/sec. There is mild intimal thickening of the right common carotid artery. The right carotid bulb demonstrates mild plaquing. Left side: Peak systolic flow velocity of the CCA is 97 cm/sec. Peak systolic flow velocity of the ICA is 85 cm/sec. The ICA/CCA ratio is 0.87. Peak end diastolic flow velocity of the ICA is 30 cm/sec. Peak systolic flow velocity of the ECA is 14 cm/sec. There is mild thickening of left common carotid artery. Scattered, mild atherosclerotic plaquing is seen involving left carotid system. Vertebral arteries: Bilateral vertebral arteries demonstrate antegrade flow. Impression: 1. No hemodynamically significant internal carotid artery stenosis identified. Note: Stenosis calculations for Doppler studies are derived from validated velocity criteria which are known to correlate with NASCET methodology of determining stenosis.
[2016-11-19] MEDS: AMLODIPINE BESYLATE 10 MG TABLET. PO SCH (11:28)
--- NOTE | 2016-11-19 11:39 | PDOC ---
PROGRESS NOTES Assessment Problems Medical Problems: (1) Left sided numbness Status: Acute (2) Numbness and tingling in left arm Status: Acute (3) Numbness and tingling of left leg Status: Acute (4) Numbness and tingling of left side of face Status: Acute TIA Hypertensive urgency, BP 219/98-102 mmHg. Brain MRI changes related to hypertension as I find no evidence of multiple sclerosis or other demyelinating disease. Plan BP control, okay for aggressive control below 150/90. Treat medical diseases. ASA 325 mg daily. I started statin medication and discuss side effects. I asked the nurse to continue bedrest until carotid Dopplers are done given the positional nature, occasionally, of his symptoms Await echocardiogram and carotid Doppler's He does not need rehabilitation modalities given the lack of evidence for a stroke. He was not a candidate for tissue plasminogen activator given resolution of symptoms. Subjective He says he has some left-sided weakness sometimes when he stands up. Objective Vital Signs Date Time Temp Pulse Resp B/P Pulse Ox O2 Delivery O2 Flow Rate FiO2 11/19/16 11:28 63 181/91 11/19/16 08:00 Room Air 11/19/16 07:00 98.3 18 96 98.3 Intake and Output 11/19/16 06:59 Intake Total 1040 ml Balance 1040 ml Intake Oral 1040 ml # Voids 4 PHYSICAL EXAM Alert. Oriented to time, place and person. PERRL. EOMI. CN: no focal findings. Muscle tone: normal. Muscle strength: 5/5 DTR: 2+ Plantar reflex: flexor Gait: normal Sensory exam: no abnormal findings. No cerebellar signs elicited. Review of Relevant I have reviewed the following items michelle (where applicable) has been applied. Labs Laboratory Tests Test 11/18/16 11:25 11/18/16 15:19 11/18/16 16:30 11/18/16 20:44 White Blood Count 5.8x10^3/uL (4.0-11.0) Red Blood Count 4.79x10^6/uL (4.30-5.70) Hemoglobin 13.5g/dL (13.0-17.5) Hematocrit 41.2% (39.0-53.0) Mean Corpuscular Volume 86fL (79-100) Mean Corpuscular Hemoglobin 28pg (25-35) Mean Corpuscular Hemoglobin Concent 33g/dL (31-37) Red Cell Distribution Width 14.1% (11.5-14.5) Platelet Count 187x10^3/uL (140-400) Neutrophils (%) (Auto) 54% (31-73) Lymphocytes (%) (Auto) 32% (24-48) Monocytes (%) (Auto) 10% (0-9) Eosinophils (%) (Auto) 3% (0-3) Basophils (%) (Auto) 1% (0-3) Neutrophils # (Auto) 3.1x10^3uL (1.8-7.7) Lymphocytes # (Auto) 1.8x10^3/uL (1.0-4.8) Monocytes # (Auto) 0.6x10^3/uL (0.0-1.1) Eosinophils # (Auto) 0.2x10^3/uL (0.0-0.7) Basophils # (Auto) 0.1x10^3/uL (0.0-0.2) Prothrombin Time 13.9SEC (11.7-14.0) Prothromb Time International Ratio 1.1 (0.8-1.1) Activated Partial Thromboplast Time 31SEC (24-38) Sodium Level 144mmol/L (136-145) Potassium Level 4.0mmol/L (3.5-5.1) Chloride Level 107mmol/L (98-107) Carbon Dioxide Level 27mmol/L (21-32) Anion Gap 10 (6-14) Blood Urea Nitrogen 16mg/dL (8-26) Creatinine 1.1mg/dL (0.7-1.3) Estimated GFR (Cockcroft-Gault) 83.8 BUN/Creatinine Ratio 15 (6-20) Glucose Level 135mg/dL (70-99) Calcium Level 8.8mg/dL (8.5-10.1) Total Bilirubin 0.8mg/dL (0.2-1.0) Aspartate Amino Transf (AST/SGOT) 17U/L (15-37) Alanine Aminotransferase (ALT/SGPT) 21U/L (16-63) Alkaline Phosphatase 59U/L (46-116) Total Protein 7.1g/dL (6.4-8.2) Albumin 3.5g/dL (3.4-5.0) Albumin/Globulin Ratio 1.0 (1.0-1.7) Vitamin B12 Level 309pg/mL (247-911) Thyroid Stimulating Hormone (TSH) 1.344uIU/mL (0.358-3.74) Urine Collection Type Unknown Urine Color Yellow Urine Clarity Clear Urine pH 8.0 Urine Specific Orange 1.010 Urine Protein Negativemg/dL (NEG-TRACE) Urine Glucose (UA) Negativemg/dL (NEG) Urine Ketones (Stick) Tracemg/dL (NEG) Urine Blood Negative (NEG) Urine Nitrite Negative (NEG) Urine Bilirubin Negative (NEG) Urine Urobilinogen Dipstick 0.2mg/dL (0.2 mg/dL) Urine Leukocyte Esterase Negative (NEG) Urine RBC Rare/HPF (0-2) Urine WBC 0/HPF (0-4) Urine Squamous Epithelial Cells Occ/LPF Urine Bacteria 0/HPF (0-FEW) Urine Opiates Screen Neg (NEG) Urine Methadone Screen Neg (NEG) Urine Barbiturates Neg (NEG) Urine Phencyclidine Screen Neg (NEG) Urine Amphetamine/Methamphetamine Neg (NEG) Urine Benzodiazepines Screen Neg (NEG) Urine Cocaine Screen Neg (NEG) Urine Cannabinoids Screen Neg (NEG) Urine Ethyl Alcohol Neg (NEG) Glucose (Fingerstick) 114mg/dL (70-99) 118mg/dL (70-99) Test 11/19/16 04:05 11/19/16 07:25 Triglycerides Level 218mg/dL (0-150) Cholesterol Level 187mg/dL (0-200) LDL Cholesterol, Calculated 99mg/dL (0-100) VLDL Cholesterol, Calculated 44mg/dL (0-40) HDL Cholesterol 44mg/dL (40-60) Cholesterol/HDL Ratio 4.3 Glucose (Fingerstick) 121mg/dL (70-99) Laboratory Tests Test 11/18/16 15:19 11/18/16 16:30 11/18/16 20:44 11/19/16 04:05 Urine Collection Type Unknown Urine Color Yellow Urine Clarity Clear Urine pH 8.0 Urine Specific Orange 1.010 Urine Protein Negativemg/dL (NEG-TRACE) Urine Glucose (UA) Negativemg/dL (NEG) Urine Ketones (Stick) Tracemg/dL (NEG) Urine Blood Negative (NEG) Urine Nitrite Negative (NEG) Urine Bilirubin Negative (NEG) Urine Urobilinogen Dipstick 0.2mg/dL (0.2 mg/dL) Urine Leukocyte Esterase Negative (NEG) Urine RBC Rare/HPF (0-2) Urine WBC 0/HPF (0-4) Urine Squamous Epithelial Cells Occ/LPF Urine Bacteria 0/HPF (0-FEW) Urine Opiates Screen Neg (NEG) Urine Methadone Screen Neg (NEG) Urine Barbiturates Neg (NEG) Urine Phencyclidine Screen Neg (NEG) Urine Amphetamine/Methamphetamine Neg (NEG) Urine Benzodiazepines Screen Neg (NEG) Urine Cocaine Screen Neg (NEG) Urine Cannabinoids Screen Neg (NEG) Urine Ethyl Alcohol Neg (NEG) Glucose (Fingerstick) 114mg/dL (70-99) 118mg/dL (70-99) Triglycerides Level 218mg/dL (0-150) Cholesterol Level 187mg/dL (0-200) LDL Cholesterol, Calculated 99mg/dL (0-100) VLDL Cholesterol, Calculated 44mg/dL (0-40) HDL Cholesterol 44mg/dL (40-60) Cholesterol/HDL Ratio 4.3 Test 11/19/16 07:25 Glucose (Fingerstick) 121mg/dL (70-99) Medications Current Medications Hydralazine HCl (Apresoline) 10 mg 1X ONCE IVP Last administered on 11/18/16 11:43; Start 11/18/16 at 11:30; Stop 11/18/16 at 11:31; Status DC Ondansetron HCl (Zofran) 4 mg PRN Q8HRS PRN IV NAUSEA/VOMITING; Start 11/18/16 at 12:30; Stop 11/19/16 at 12:29 Morphine Sulfate 2 mg PRN Q2HR PRN IV PAIN; Start 11/18/16 at 12:30; Stop at 12:29 Acetaminophen (Tylenol) 650 mg PRN Q4HRS PRN PO FEVER; Start 11/18/16 at 12:30; Stop 11/19/16 at 12:29 Aspirin (Ecotrin) 325 mg 1X ONCE PO Last administered on 11/18/16 13:28; Start 11/18/16 at 13:00; Stop 11/18/16 at 13:01; Status DC Losartan Potassium (Cozaar) 25 mg DAILY PO Last administered on 11/18/16 15:40 ; Start 11/18/16 at 15:30; Stop 11/18/16 at 16:20; Status DC Meloxicam (Mobic) 7.5 mg DAILY PO Last administered on 11/19/16 08:55; Start at 15:30 Metformin HCl (Glucophage) 500 mg BIDWMEALS PO Last administered on 11/19/16 08 :53; Start 11/18/16 at 17:00 Metoprolol Succinate (Toprol Xl) 100 mg DAILY08 PO Last administered on 08:54; Start 11/18/16 at 15:30; Stop 11/19/16 at 10:26; Status DC Tamsulosin HCl (Flomax) 0.4 mg DAILY PO Last administered on 11/19/16 08:55; Start 11/18/16 at 16:00; Stop 11/19/16 at 10:26; Status DC Losartan Potassium (Cozaar) 75 mg 1X ONCE PO ; Start 11/18/16 at 16:20; Stop 11/18/16 at 16:21; Status Cancel Losartan Potassium (Cozaar) 100 mg DAILY08 PO Last administered on 11/19/16 08: 53; Start 11/19/16 at 08:00 Losartan Potassium (Cozaar) 75 mg 1X ONCE PO Last administered on 11/18/16 18: 18; Start 11/18/16 at 17:00; Stop 11/18/16 at 17:01; Status DC Aspirin (Ingrid Aspirin) 325 mg DAILYWBKFT PO Last administered on 11/19/16 08: 52; Start 11/19/16 at 08:00 Atorvastatin Calcium (Lipitor) 10 mg QHS PO ; Start 11/19/16 at 21:00 Tamsulosin HCl (Flomax) 0.8 mg DAILY PO Last administered on 11/19/16 11:28; Start 11/19/16 at 11:00 Acetaminophen (Tylenol) 650 mg PRN Q6HRS PRN PO FEVER; Start 11/19/16 at 10:30 Carvedilol (Coreg) 12.5 mg BIDWMEALS PO ; Start 11/19/16 at 17:00 Amlodipine Besylate (Norvasc) 10 mg DAILY PO Last administered on 4/3/17at 11: 28; Start 11/19/16 at 11:00 Ondansetron HCl (Zofran) 4 mg PRN Q6HRS PRN IV NAUSEA/VOMITING; Start 11/19/16 at 10:30 Active Scripts Active Reported Losartan Potassium 100 Mg Tablet 100 Tab PO DAILY08 Metoprolol Succinate ( Xl ) (Metoprolol Succinate) 100 Mg Tab.er.24h 100 Meloxicam 7.5 Mg Tablet 7.5 Mg PO DAILY Tamsulosin Hcl 0.4 Mg Cap.er.24h 0.4 Mg PO DAILY Metformin Hcl 500 Mg Tablet 500 Mg PO BIDWMEALS Vitals/I & O Vital Sign - Last 24 Hours 11/18/16 11/18/16 11/18/16 11/18/16 11:37 11:43 12:06 13:06 Pulse 68 57 76 70 Resp 21 16 18 B/P 187/88 187/88 169/77 191/102 Pulse Ox 95 96 96 O2 Delivery Room Air Room Air Room Air 11/18/16 11/18/16 11/18/16 11/18/16 14:17 14:49 15:30 15:40 Temp 97.5 97.5 97.5 97.5 Pulse 68 68 68 68 Resp 16 16 B/P 171/93 171/93 171/93 171/93 Pulse Ox 100 100 O2 Delivery Room Air Room Air 11/18/16 11/18/16 11/18/16 11/18/16 17:00 18:18 19:10 20:05 Temp 98.7 98.7 Pulse 68 68 Resp 18 B/P 171/93 137/80 Pulse Ox 97 O2 Delivery Room Air Room Air Room Air 11/18/16 11/19/16 11/19/16 11/19/16 22:45 03:20 07:00 08:00 Temp 98.5 98.3 98.3 98.5 98.3 98.3 Pulse 66 66 63 Resp 18 18 18 B/P 145/74 135/72 181/91 Pulse Ox 94 96 96 O2 Delivery Room Air Room Air Room Air Room Air 11/19/16 11/19/16 11/19/16 08:53 08:54 11:28 Pulse 63 63 63 B/P 181/91 181/91 181/91 Intake and Output 4/2/17 4/2/17 4/3/17 14:59 22:59 06:59 Intake Total 200 ml 840 ml Balance 200 ml 840 ml Images Brain MRI: 1. No evidence of acute infarction. 2. Numerous and extensive nodular periventricular T2 signal foci. This is a very nonspecific finding. This can be associated with chronic small vessel ischemic disease, although this extensive appearance would usually be expected in patients of a slightly greater age. Multiple sclerosis or other demyelinating disorder could be considered. Infectious or inflammatory etiology is possible depending on clinical correlation. No obvious mass lesion or mass effect. RICH HUGGINS MD Nov 19, 2016 11:39
--- NOTE | 2016-11-19 13:10 | PDOC ---
PROGRESS NOTES Chief Complaint Chief Complaint left face, exts numbness TIA vs. HTN encephalopathy Hypertensive urgency BPH plan: FU WITH neuro MRI brain, carotid US neg echo pending on losartan, dc metoprolol, add coreg, amlodipine increase flomax since still polyuria hope dc tmr History of Present Illness History of Present Illness still left side numbness when walk ONLY no weakness uncontrolled BP Vitals Vitals Vital Signs Date Time Temp Pulse Resp B/P Pulse Ox O2 Delivery O2 Flow Rate FiO2 11/19/16 12:06 185/96 11/19/16 11:47 97.5 63 18 94 Room Air 97.5 Physical Exam General: Alert, Oriented X3, Cooperative Heart: Regular rate, Normal S1, Normal S2 Lungs: Clear Abdomen: Normal bowel sounds, Soft Extremities: No clubbing, No cyanosis Skin: No rashes Labs LABS Laboratory Tests Test 11/18/16 15:19 11/18/16 16:30 11/18/16 20:44 11/19/16 04:05 Urine Collection Type Unknown Urine Color Yellow Urine Clarity Clear Urine pH 8.0 Urine Specific Loyal 1.010 Urine Protein Negativemg/dL (NEG-TRACE) Urine Glucose (UA) Negativemg/dL (NEG) Urine Ketones (Stick) Tracemg/dL (NEG) Urine Blood Negative (NEG) Urine Nitrite Negative (NEG) Urine Bilirubin Negative (NEG) Urine Urobilinogen Dipstick 0.2mg/dL (0.2 mg/dL) Urine Leukocyte Esterase Negative (NEG) Urine RBC Rare/HPF (0-2) Urine WBC 0/HPF (0-4) Urine Squamous Epithelial Cells Occ/LPF Urine Bacteria 0/HPF (0-FEW) Urine Opiates Screen Neg (NEG) Urine Methadone Screen Neg (NEG) Urine Barbiturates Neg (NEG) Urine Phencyclidine Screen Neg (NEG) Urine Amphetamine/Methamphetamine Neg (NEG) Urine Benzodiazepines Screen Neg (NEG) Urine Cocaine Screen Neg (NEG) Urine Cannabinoids Screen Neg (NEG) Urine Ethyl Alcohol Neg (NEG) Glucose (Fingerstick) 114mg/dL (70-99) 118mg/dL (70-99) Triglycerides Level 218mg/dL (0-150) Cholesterol Level 187mg/dL (0-200) LDL Cholesterol, Calculated 99mg/dL (0-100) VLDL Cholesterol, Calculated 44mg/dL (0-40) HDL Cholesterol 44mg/dL (40-60) Cholesterol/HDL Ratio 4.3 Test 11/19/16 07:25 11/19/16 11:37 Glucose (Fingerstick) 121mg/dL (70-99) 101mg/dL (70-99) Review of Systems Review of Systems no fever, chills, sob or chest pain Assessment and Plan Assessmemt and Plan Problems Medical Problems: (1) Left sided numbness Status: Acute (2) Numbness and tingling in left arm Status: Acute (3) Numbness and tingling of left leg Status: Acute (4) Numbness and tingling of left side of face Status: Acute Problems: Comment Review of Relevant I have reviewed the following items michelle (where applicable) has been applied. Labs Laboratory Tests Test 11/18/16 11:25 11/18/16 15:19 11/18/16 16:30 11/18/16 20:44 White Blood Count 5.8x10^3/uL (4.0-11.0) Red Blood Count 4.79x10^6/uL (4.30-5.70) Hemoglobin 13.5g/dL (13.0-17.5) Hematocrit 41.2% (39.0-53.0) Mean Corpuscular Volume 86fL (79-100) Mean Corpuscular Hemoglobin 28pg (25-35) Mean Corpuscular Hemoglobin Concent 33g/dL (31-37) Red Cell Distribution Width 14.1% (11.5-14.5) Platelet Count 187x10^3/uL (140-400) Neutrophils (%) (Auto) 54% (31-73) Lymphocytes (%) (Auto) 32% (24-48) Monocytes (%) (Auto) 10% (0-9) Eosinophils (%) (Auto) 3% (0-3) Basophils (%) (Auto) 1% (0-3) Neutrophils # (Auto) 3.1x10^3uL (1.8-7.7) Lymphocytes # (Auto) 1.8x10^3/uL (1.0-4.8) Monocytes # (Auto) 0.6x10^3/uL (0.0-1.1) Eosinophils # (Auto) 0.2x10^3/uL (0.0-0.7) Basophils # (Auto) 0.1x10^3/uL (0.0-0.2) Prothrombin Time 13.9SEC (11.7-14.0) Prothromb Time International Ratio 1.1 (0.8-1.1) Activated Partial Thromboplast Time 31SEC (24-38) Sodium Level 144mmol/L (136-145) Potassium Level 4.0mmol/L (3.5-5.1) Chloride Level 107mmol/L (98-107) Carbon Dioxide Level 27mmol/L (21-32) Anion Gap 10 (6-14) Blood Urea Nitrogen 16mg/dL (8-26) Creatinine 1.1mg/dL (0.7-1.3) Estimated GFR (Cockcroft-Gault) 83.8 BUN/Creatinine Ratio 15 (6-20) Glucose Level 135mg/dL (70-99) Calcium Level 8.8mg/dL (8.5-10.1) Total Bilirubin 0.8mg/dL (0.2-1.0) Aspartate Amino Transf (AST/SGOT) 17U/L (15-37) Alanine Aminotransferase (ALT/SGPT) 21U/L (16-63) Alkaline Phosphatase 59U/L (46-116) Total Protein 7.1g/dL (6.4-8.2) Albumin 3.5g/dL (3.4-5.0) Albumin/Globulin Ratio 1.0 (1.0-1.7) Vitamin B12 Level 309pg/mL (247-911) Thyroid Stimulating Hormone (TSH) 1.344uIU/mL (0.358-3.74) Urine Collection Type Unknown Urine Color Yellow Urine Clarity Clear Urine pH 8.0 Urine Specific Loyal 1.010 Urine Protein Negativemg/dL (NEG-TRACE) Urine Glucose (UA) Negativemg/dL (NEG) Urine Ketones (Stick) Tracemg/dL (NEG) Urine Blood Negative (NEG) Urine Nitrite Negative (NEG) Urine Bilirubin Negative (NEG) Urine Urobilinogen Dipstick 0.2mg/dL (0.2 mg/dL) Urine Leukocyte Esterase Negative (NEG) Urine RBC Rare/HPF (0-2) Urine WBC 0/HPF (0-4) Urine Squamous Epithelial Cells Occ/LPF Urine Bacteria 0/HPF (0-FEW) Urine Opiates Screen Neg (NEG) Urine Methadone Screen Neg (NEG) Urine Barbiturates Neg (NEG) Urine Phencyclidine Screen Neg (NEG) Urine Amphetamine/Methamphetamine Neg (NEG) Urine Benzodiazepines Screen Neg (NEG) Urine Cocaine Screen Neg (NEG) Urine Cannabinoids Screen Neg (NEG) Urine Ethyl Alcohol Neg (NEG) Glucose (Fingerstick) 114mg/dL (70-99) 118mg/dL (70-99) Test 11/19/16 04:05 11/19/16 07:25 11/19/16 11:37 Triglycerides Level 218mg/dL (0-150) Cholesterol Level 187mg/dL (0-200) LDL Cholesterol, Calculated 99mg/dL (0-100) VLDL Cholesterol, Calculated 44mg/dL (0-40) HDL Cholesterol 44mg/dL (40-60) Cholesterol/HDL Ratio 4.3 Glucose (Fingerstick) 121mg/dL (70-99) 101mg/dL (70-99) Laboratory Tests Test 11/18/16 15:19 11/18/16 16:30 11/18/16 20:44 11/19/16 04:05 Urine Collection Type Unknown Urine Color Yellow Urine Clarity Clear Urine pH 8.0 Urine Specific Loyal 1.010 Urine Protein Negativemg/dL (NEG-TRACE) Urine Glucose (UA) Negativemg/dL (NEG) Urine Ketones (Stick) Tracemg/dL (NEG) Urine Blood Negative (NEG) Urine Nitrite Negative (NEG) Urine Bilirubin Negative (NEG) Urine Urobilinogen Dipstick 0.2mg/dL (0.2 mg/dL) Urine Leukocyte Esterase Negative (NEG) Urine RBC Rare/HPF (0-2) Urine WBC 0/HPF (0-4) Urine Squamous Epithelial Cells Occ/LPF Urine Bacteria 0/HPF (0-FEW) Urine Opiates Screen Neg (NEG) Urine Methadone Screen Neg (NEG) Urine Barbiturates Neg (NEG) Urine Phencyclidine Screen Neg (NEG) Urine Amphetamine/Methamphetamine Neg (NEG) Urine Benzodiazepines Screen Neg (NEG) Urine Cocaine Screen Neg (NEG) Urine Cannabinoids Screen Neg (NEG) Urine Ethyl Alcohol Neg (NEG) Glucose (Fingerstick) 114mg/dL (70-99) 118mg/dL (70-99) Triglycerides Level 218mg/dL (0-150) Cholesterol Level 187mg/dL (0-200) LDL Cholesterol, Calculated 99mg/dL (0-100) VLDL Cholesterol, Calculated 44mg/dL (0-40) HDL Cholesterol 44mg/dL (40-60) Cholesterol/HDL Ratio 4.3 Test 11/19/16 07:25 11/19/16 11:37 Glucose (Fingerstick) 121mg/dL (70-99) 101mg/dL (70-99) Medications Current Medications Hydralazine HCl (Apresoline) 10 mg 1X ONCE IVP Last administered on 11/18/16 11:43; Start 11/18/16 at 11:30; Stop 11/18/16 at 11:31; Status DC Ondansetron HCl (Zofran) 4 mg PRN Q8HRS PRN IV NAUSEA/VOMITING; Start 11/18/16 at 12:30; Stop 11/19/16 at 12:29; Status DC Morphine Sulfate 2 mg PRN Q2HR PRN IV PAIN; Start 11/18/16 at 12:30; Stop at 12:29; Status DC Acetaminophen (Tylenol) 650 mg PRN Q4HRS PRN PO FEVER; Start 11/18/16 at 12:30; Stop 11/19/16 at 12:29; Status DC Aspirin (Ecotrin) 325 mg 1X ONCE PO Last administered on 11/18/16 13:28; Start 11/18/16 at 13:00; Stop 11/18/16 at 13:01; Status DC Losartan Potassium (Cozaar) 25 mg DAILY PO Last administered on 11/18/16 15:40 ; Start 11/18/16 at 15:30; Stop 11/18/16 at 16:20; Status DC Meloxicam (Mobic) 7.5 mg DAILY PO Last administered on 11/19/16 08:55; Start at 15:30 Metformin HCl (Glucophage) 500 mg BIDWMEALS PO Last administered on 11/19/16 08 :53; Start 11/18/16 at 17:00 Metoprolol Succinate (Toprol Xl) 100 mg DAILY08 PO Last administered on 08:54; Start 11/18/16 at 15:30; Stop 11/19/16 at 10:26; Status DC Tamsulosin HCl (Flomax) 0.4 mg DAILY PO Last administered on 11/19/16 08:55; Start 11/18/16 at 16:00; Stop 11/19/16 at 10:26; Status DC Losartan Potassium (Cozaar) 75 mg 1X ONCE PO ; Start 11/18/16 at 16:20; Stop 11/18/16 at 16:21; Status Cancel Losartan Potassium (Cozaar) 100 mg DAILY08 PO Last administered on 11/19/16 08: 53; Start 11/19/16 at 08:00 Losartan Potassium (Cozaar) 75 mg 1X ONCE PO Last administered on 11/18/16 18: 18; Start 11/18/16 at 17:00; Stop 11/18/16 at 17:01; Status DC Aspirin (Stupeflix Aspirin) 325 mg DAILYWBKFT PO Last administered on 11/19/16 08: 52; Start 11/19/16 at 08:00 Atorvastatin Calcium (Lipitor) 10 mg QHS PO ; Start 11/19/16 at 21:00 Tamsulosin HCl (Flomax) 0.8 mg DAILY PO Last administered on 11/19/16 11:28; Start 11/19/16 at 11:00 Acetaminophen (Tylenol) 650 mg PRN Q6HRS PRN PO FEVER; Start 11/19/16 at 10:30 Carvedilol (Coreg) 12.5 mg BIDWMEALS PO ; Start 11/19/16 at 17:00 Amlodipine Besylate (Norvasc) 10 mg DAILY PO Last administered on 11/19/16 11: 28; Start 11/19/16 at 11:00 Ondansetron HCl (Zofran) 4 mg PRN Q6HRS PRN IV NAUSEA/VOMITING; Start 11/19/16 at 10:30 Active Scripts Active Reported Losartan Potassium 100 Mg Tablet 100 Tab PO DAILY08 Metoprolol Succinate ( Xl ) (Metoprolol Succinate) 100 Mg Tab.er.24h 100 Meloxicam 7.5 Mg Tablet 7.5 Mg PO DAILY Tamsulosin Hcl 0.4 Mg Cap.er.24h 0.4 Mg PO DAILY Metformin Hcl 500 Mg Tablet 500 Mg PO BIDWMEALS Vitals/I & O Vital Sign - Last 24 Hours 11/18/16 11/18/16 11/18/16 11/18/16 14:17 14:49 15:30 15:40 Temp 97.5 97.5 97.5 97.5 Pulse 68 68 68 68 Resp 16 16 B/P 171/93 171/93 171/93 171/93 Pulse Ox 100 100 O2 Delivery Room Air Room Air 11/18/16 11/18/16 11/18/16 11/18/16 17:00 18:18 19:10 20:05 Temp 98.7 98.7 Pulse 68 68 Resp 18 B/P 171/93 137/80 Pulse Ox 97 O2 Delivery Room Air Room Air Room Air 11/18/16 11/19/16 11/19/16 11/19/16 22:45 03:20 07:00 08:00 Temp 98.5 98.3 98.3 98.5 98.3 98.3 Pulse 66 66 63 Resp 18 18 18 B/P 145/74 135/72 181/91 Pulse Ox 94 96 96 O2 Delivery Room Air Room Air Room Air Room Air 11/19/16 11/19/16 11/19/16 11/19/16 08:53 08:54 11:28 11:47 Temp 97.5 97.5 Pulse 63 63 63 63 Resp 18 B/P 181/91 181/91 181/91 168/103 Pulse Ox 94 O2 Delivery Room Air 11/19/16 12:06 B/P 185/96 Intake and Output 11/18/16 11/18/16 11/19/16 15:00 23:00 07:00 Intake Total 200 ml 840 ml Balance 200 ml 840 ml TIMMY MARTINS MD Nov 19, 2016 13:09
[2016-11-19] MEDS ORDERED: hydrALAZINE 20 MG/ML VIAL. IVP PRN (13:15)
[2016-11-19] MEDS: ACETAMINOPHEN 325 MG TABLET. PO PRN ×2 (14:17→20:31)
[2016-11-19] MEDS: CARVEDILOL 12.5 MG TABLET. PO SCH (18:16)
[2016-11-19] MEDS ORDERED: ATORVASTATIN CALCIUM 10 MG TABLET. PO SCH (21:00)
[2016-11-20 03:00] VITALS: BP 128/74
[2016-11-20 07:00] VITALS: BP 150/82
--- NOTE | 2016-11-20 08:48 | RAD ---
PROCEDURE MRI brain without contrast. HISTORY Continued stroke-like symptoms, left-sided numbness TECHNIQUE Multiplanar, multi sequential non contrast MR imaging was performed of the brain. COMPARISON November 18, 2016 FINDINGS There is no restricted diffusion suggestive of a recent infarct or cytotoxic edema. There is no new intra-axial mass effect, midline shift, extra-axial fluid collection. As seen previously, there are innumerable foci of abnormal T2 and FLAIR hyperintense signal abnormality of the supratentorial white matter in a bilateral distribution greatest of the frontal parietal lobes. Multiple foci again have a perpendicular orientation relative to the lateral ventricles. There is mild T2 and FLAIR hyperintense signal abnormality of the yamilet. Ventricular size is within normal limits. There is preservation of the major arterial intracranial flow voids at the skull base. Frontal sinus is not pneumatized. There is patchy mild ethmoid air cell mucosal thickening. Mastoid air cells are aerated. There is nonspecific increased CSF signal of the optic nerve sheaths bilaterally. Cerebellar tonsils are normal in location. There is nonspecific mild heterogeneity of the marrow signal of the non expanded clivus. There is no significant abnormality of the pituitary gland or pineal gland. IMPRESSION 1. There is no evidence of a recent infarct or intracranial mass effect. As seen previously, there are innumerable foci of abnormal T2 and FLAIR hyperintense signal abnormality of the supratentorial white matter in a bilateral distribution. Pattern is concerning for inflammatory demyelinating disease. Electronically signed by: Norman Eli MD (Nov 20, 2016 08:45:51)
--- NOTE | 2016-11-20 08:53 | RAD ---
PROCEDURE MRA brain without contrast. HISTORY Continued left-sided weakness TECHNIQUE 3D [id number] MR angiography was performed of the head. COMPARISON None FINDINGS Any determination of stenosis is based on NASCET criteria. Both vertebral arteries constitute the basilar artery. There is visualization of segments of bilateral AICAs, PICAs poorly seen on this exam although believed to be segmentally seen on the left. There is visualization of the bilateral superior cerebellar arteries. There are posterior communicating arteries bilaterally. There is visualization of the petrous, cavernous, ophthalmic internal carotid arteries bilaterally,. There is a patent anterior communicating artery. There is visualization of the anterior, middle, and posterior cerebral arteries bilaterally. No significant focal stenosis, aneurysm, or arteriovenous malformation is identified. IMPRESSION 1. No significant focal stenosis, aneurysm, or arteriovenous malformation is identified. Electronically signed by: Norman Eli MD (Nov 20, 2016 08:51:10)
[2016-11-20] MEDS: TAMSULOSIN 0.4 MG CAP.ER.24H. PO SCH (09:14)
[2016-11-20] MEDS: CARVEDILOL 12.5 MG TABLET. PO SCH (09:14)
[2016-11-20] MEDS: LOSARTAN POTASSIUM 50 MG TABLET. PO SCH (09:14)
[2016-11-20] MEDS: ASPIRIN 325 MG TABLET PO SCH (09:14)
[2016-11-20] MEDS: METFORMIN 500 MG TABLET. PO SCH (09:14)
[2016-11-20] MEDS: AMLODIPINE BESYLATE 10 MG TABLET. PO SCH (09:15)
[2016-11-20] MEDS: MELOXICAM 7.5 MG TABLET PO SCH (09:15)
[2016-11-20] MEDS ORDERED: TAMS0.4C97 PO (10:55)
[2016-11-20] MEDS ORDERED: CARV12.52 PO (10:55)
[2016-11-20] MEDS ORDERED: ASPI325T4 PO (10:55)
[2016-11-20] MEDS ORDERED: AMLO10TA2 PO (10:55)
[2016-11-20] MEDS ORDERED: ATOR10TA60 PO (10:55)
[2016-11-20 11:27] VITALS: BP 147/78
--- NOTE | 2016-11-20 11:31 | PDOC ---
PROGRESS NOTES Assessment Problems Medical Problems: (1) Left sided numbness Status: Acute (2) Numbness and tingling in left arm Status: Acute (3) Numbness and tingling of left leg Status: Acute (4) Numbness and tingling of left side of face Status: Acute TIA As he was still having increasing left-sided numbness yesterday, despite resolution of hypertension, I repeated his brain MRI with MR angiogram, both negative. Hypertensive urgency, BP 219/98-102 mmHg. Brain MRI changes related to hypertension as I find no evidence of multiple sclerosis or other demyelinating disease. Plan Okay for discharge BP control, okay for aggressive control below 150/90. Treat medical diseases. ASA 325 mg daily. Statin. He does not need rehabilitation modalities given the lack of evidence for a stroke. Follow up with me in 6 weeks and I will go over his exam again. We could consider a lumbar puncture to settle the possibility of multiple sclerosis, but I do not believe this is necessary. Subjective He complains of continued left face, hands, and foot paresthesia Objective Vital Signs Date Time Temp Pulse Resp B/P Pulse Ox O2 Delivery O2 Flow Rate FiO2 11/20/16 09:15 62 150/82 11/20/16 08:00 Room Air 11/20/16 07:00 97.9 18 96 97.9 Intake and Output 11/20/16 06:59 Intake Total 1200 ml Balance 1200 ml Intake Oral 1200 ml # Voids 4 PHYSICAL EXAM Alert. Oriented to time, place and person. PERRL. EOMI. CN: no focal findings. Muscle tone: normal. Muscle strength: 5/5 DTR: 2+ Plantar reflex: flexor Gait: normal Sensory exam: no abnormal findings. No cerebellar signs elicited. Review of Relevant I have reviewed the following items michelle (where applicable) has been applied. Labs Laboratory Tests Test 11/18/16 15:19 11/18/16 16:30 11/18/16 20:44 11/19/16 04:05 Urine Collection Type Unknown Urine Color Yellow Urine Clarity Clear Urine pH 8.0 Urine Specific [place] 1.010 Urine Protein Negativemg/dL (NEG-TRACE) Urine Glucose (UA) Negativemg/dL (NEG) Urine Ketones (Stick) Tracemg/dL (NEG) Urine Blood Negative (NEG) Urine Nitrite Negative (NEG) Urine Bilirubin Negative (NEG) Urine Urobilinogen Dipstick 0.2mg/dL (0.2 mg/dL) Urine Leukocyte Esterase Negative (NEG) Urine RBC Rare/HPF (0-2) Urine WBC 0/HPF (0-4) Urine Squamous Epithelial Cells Occ/LPF Urine Bacteria 0/HPF (0-FEW) Urine Opiates Screen Neg (NEG) Urine Methadone Screen Neg (NEG) Urine Barbiturates Neg (NEG) Urine Phencyclidine Screen Neg (NEG) Urine Amphetamine/Methamphetamine Neg (NEG) Urine Benzodiazepines Screen Neg (NEG) Urine Cocaine Screen Neg (NEG) Urine Cannabinoids Screen Neg (NEG) Urine Ethyl Alcohol Neg (NEG) Glucose (Fingerstick) 114mg/dL (70-99) 118mg/dL (70-99) Triglycerides Level 218mg/dL (0-150) Cholesterol Level 187mg/dL (0-200) LDL Cholesterol, Calculated 99mg/dL (0-100) VLDL Cholesterol, Calculated 44mg/dL (0-40) HDL Cholesterol 44mg/dL (40-60) Cholesterol/HDL Ratio 4.3 Test 11/19/16 07:25 11/19/16 11:30 11/19/16 11:37 11/19/16 16:47 Glucose (Fingerstick) 121mg/dL (70-99) 101mg/dL (70-99) 90mg/dL (70-99) Erythrocyte Sedimentation Rate 18 (0-15) Test 11/19/16 21:09 11/20/16 07:55 Glucose (Fingerstick) 104mg/dL (70-99) 105mg/dL (70-99) Laboratory Tests Test 11/19/16 11:30 11/19/16 11:37 11/19/16 16:47 11/19/16 21:09 Erythrocyte Sedimentation Rate 18 (0-15) Glucose (Fingerstick) 101mg/dL (70-99) 90mg/dL (70-99) 104mg/dL (70-99) Test 11/20/16 07:55 Glucose (Fingerstick) 105mg/dL (70-99) Medications Current Medications Hydralazine HCl (Apresoline) 10 mg 1X ONCE IVP Last administered on 11/18/16t 11:43; Start 11/18/16 at 11:30; Stop 11/18/16 at 11:31; Status DC Ondansetron HCl (Zofran) 4 mg PRN Q8HRS PRN IV NAUSEA/VOMITING; Start 11/18/16 at 12:30; Stop 11/19/16 at 12:29; Status DC Morphine Sulfate 2 mg PRN Q2HR PRN IV PAIN; Start 11/18/16 at 12:30; Stop at 12:29; Status DC Acetaminophen (Tylenol) 650 mg PRN Q4HRS PRN PO FEVER; Start 11/18/16 at 12:30; Stop 11/19/16 at 12:29; Status DC Aspirin (Ecotrin) 325 mg 1X ONCE PO Last administered on 11/18/16 13:28; Start 11/18/16 at 13:00; Stop 11/18/16 at 13:01; Status DC Losartan Potassium (Cozaar) 25 mg DAILY PO Last administered on 11/18/16 15:40 ; Start 11/18/16 at 15:30; Stop 11/18/16 at 16:20; Status DC Meloxicam (Mobic) 7.5 mg DAILY PO Last administered on 11/20/16 09:15; Start at 15:30 Metformin HCl (Glucophage) 500 mg BIDWMEALS PO Last administered on 11/20/16 09 :14; Start 11/18/16 at 17:00 Metoprolol Succinate (Toprol Xl) 100 mg DAILY08 PO Last administered on 08:54; Start 11/18/16 at 15:30; Stop 11/19/16 at 10:26; Status DC Tamsulosin HCl (Flomax) 0.4 mg DAILY PO Last administered on 11/19/16 08:55; Start 11/18/16 at 16:00; Stop 11/19/16 at 10:26; Status DC Losartan Potassium (Cozaar) 75 mg 1X ONCE PO ; Start 11/18/16 at 16:20; Stop 11/18/16 at 16:21; Status Cancel Losartan Potassium (Cozaar) 100 mg DAILY08 PO Last administered on 11/20/16 09: 14; Start 11/19/16 at 08:00 Losartan Potassium (Cozaar) 75 mg 1X ONCE PO Last administered on 11/18/16 18: 18; Start 11/18/16 at 17:00; Stop 11/18/16 at 17:01; Status DC Aspirin (Ingrid Aspirin) 325 mg DAILYWBKFT PO Last administered on 11/20/16 09: 14; Start 11/19/16 at 08:00 Atorvastatin Calcium (Lipitor) 10 mg QHS PO Last administered on 11/19/16 20:30 ; Start 11/19/16 at 21:00 Tamsulosin HCl (Flomax) 0.8 mg DAILY PO Last administered on 11/20/16 09:14; Start 11/19/16 at 11:00 Acetaminophen (Tylenol) 650 mg PRN Q6HRS PRN PO FEVER Last administered on 20:31; Start 11/19/16 at 10:30 Carvedilol (Coreg) 12.5 mg BIDWMEALS PO Last administered on 11/20/16 09:14; Start 11/19/16 at 17:00 Amlodipine Besylate (Norvasc) 10 mg DAILY PO Last administered on 11/20/16 09: 15; Start 11/19/16 at 11:00 Ondansetron HCl (Zofran) 4 mg PRN Q6HRS PRN IV NAUSEA/VOMITING; Start 11/19/16 at 10:30 Hydralazine HCl (Apresoline) 10 mg PRN Q4HRS PRN IVP ELEVATED BP, SEE COMMENTS ; Start 11/19/16 at 13:15 Active Scripts Active Flomax (Tamsulosin Hcl) 0.4 Mg Cap.er.24h 0.8 Mg PO DAILY Carvedilol 12.5 Mg Tablet 12.5 Mg PO BIDWMEALS Atorvastatin Calcium 10 Mg Tablet 10 Mg PO QHS Aspirin 325 Mg Tablet 325 Mg PO DAILYWBKFT Amlodipine Besylate 10 Mg Tablet 10 Mg PO DAILY Reported Losartan Potassium 100 Mg Tablet 100 Tab PO DAILY08 Meloxicam 7.5 Mg Tablet 7.5 Mg PO DAILY Metformin Hcl 500 Mg Tablet 500 Mg PO BIDWMEALS Vitals/I & O Vital Sign - Last 24 Hours 11/19/16 11/19/16 11/19/16 11/19/16 11:28 11:47 12:06 15:51 Temp 97.5 98.1 97.5 98.1 Pulse 63 63 71 Resp 18 18 B/P 181/91 168/103 185/96 130/71 Pulse Ox 94 95 O2 Delivery Room Air Room Air 11/19/16 11/19/16 11/19/16 11/19/16 18:16 19:55 20:00 23:00 Temp 98.1 98.9 98.1 98.9 Pulse 71 66 69 Resp 20 21 B/P 130/71 138/77 138/75 Pulse Ox 97 93 O2 Delivery Room Air Room Air Room Air 11/20/16 11/20/16 11/20/16 11/20/16 03:00 07:00 08:00 09:14 Temp 97.5 97.9 97.5 97.9 Pulse 70 62 62 Resp 20 18 B/P 128/74 150/82 150/82 Pulse Ox 94 96 O2 Delivery Room Air Room Air Room Air 11/20/16 11/20/16 09:14 09:15 Pulse 62 62 B/P 150/82 150/82 Intake and Output 11/19/16 11/19/16 11/20/16 14:59 22:59 06:59 Intake Total 500 ml 700 ml Balance 500 ml 700 ml Images MRI brain, repeat, MRI angiogram, carotid Doppler's, negative Echocardiogram report pending RICH HUGGINS MD Nov 20, 2016 11:30
--- NOTE | 2016-11-20 12:37 | PDOC3 ---
Discharge Summary IPC Date of Admission: Nov 18, 2016 Discharge Date: Nov 20, 2016 Admitting Diagnosis left face, exts numbness TIA vs. HTN encephalopathy Hypertensive urgency BPH plan: FU WITH neuro MRI brain, carotid US neg echo pending on losartan, dc metoprolol, add coreg, amlodipine increase flomax since still polyuria hope dc tmr History of Present Illness History of Present Illness still left side numbness when walk ONLY no weakness uncontrolled BP Vitals Vitals Vital Signs Date Time Temp Pulse Resp B/P Pulse Ox O2 Delivery O2 Flow Rate FiO2 11/19/16 12:06 185/96 11/19/16 11:47 97.5 63 18 94 Room Air 97.5 Physical Exam Problems: Final Diagnosis CONSULTS neuro Brief Hospital Course Mr. Terrell is a 55 old M, with uncontrolled HTN, comes for left face, left arm and left leg numbness, especially post ambulation. MRI brain, and angiogram all neg. The numbness is likely 2/2 HTN encephalopathy dc home with losartan, coreg, amlodipine, asa, lipitor. dc time 35min General: Alert, Oriented X3, Cooperative Heart: Regular rate, Normal S1, Normal S2 Lungs: Clear Abdomen: Normal bowel sounds, Soft Extremities: No clubbing, No cyanosis Skin: No rashes Patient History: Patient reports no known family medical history. Problems: Disposition home CONDITION AT DISCHARGE: Improved Diet low salt Scheduled Amlodipine Besylate (Amlodipine Besylate) 10 MG PO DAILY Aspirin (Aspirin) 325 MG PO DAILYWBKFT Atorvastatin Calcium (Atorvastatin Calcium) 10 MG PO QHS Carvedilol (Carvedilol) 12.5 MG PO BIDWMEALS Losartan Potassium (Losartan Potassium) 100 TAB PO DAILY08 (Reported) Meloxicam (Meloxicam) 7.5 MG PO DAILY (Reported) Metformin Hcl (Metformin Hcl) 500 MG PO BIDWMEALS (Reported) Tamsulosin Hcl (Flomax) 0.8 MG PO DAILY Discontinued Medications Losartan Potassium (Losartan Potassium) 25 MG PO DAILY (Reported) Metoprolol Succinate (Toprol Xl) 1 TAB PO DAILY (Reported) Metoprolol Succinate (Metoprolol Succinate ( Xl )) 100 (Reported) Tamsulosin Hcl (Tamsulosin Hcl) 0.4 MG PO DAILY (Reported) Follow Up pcp in 2 weeks TIMMY MARTINS MD Nov 20, 2016 12:37
--- NOTE | 2016-11-20 13:30 | CARD ---
APPROVED REPORT EXAM: Two-dimensional and M-mode echocardiogram with Doppler and color Doppler. Other Information Quality : GoodHR: 66bpm Rhythm : NSR INDICATION CVA/TIA TIA Echo Enhancing Agent Agent/Amount Used: Agitated Saline 8mL RISK FACTORS Hypertension Hyperlipidemia Family History Diabetes 2D DIMENSIONS RVDd2.2 (2.9-3.5cm)Left Atrium(2D)3.4 (1.6-4.0cm) IVSd1.1 (0.7-1.1cm)Aortic Root(2D)3.4 (2.0-3.7cm) LVDd4.4 (3.9-5.9cm)LVOT Diameter2.3 (1.8-2.4cm) PWd1.1 (0.7-1.1cm)LVDs2.7 (2.5-4.0cm) FS (%) 37.9 %SV58.9 ml LVEF(%)68.3 (>50%) Aortic Valve AoV Peak Arcenio.103.8cm/sAoV VTI21.0cm AO Peak GR.4.3mmHgLVOT VTI 22.55cm AO Mean GR.2mmHg Mitral Valve MV E Xnlwyfse63.5cm/sMV DECEL [id number] MV A Abjiljyz02.6cm/sE/A Ratio1.1 MV A [id number] Pulmonary Vein S1 Penjocqa15.1cm/sS2 Btlwknit85.23cm/s D2 Vpjbicvn73.2cm/sPVa [id number] LEFT VENTRICLE The left ventricle is normal size. There is borderline concentric left ventricular hypertrophy. The l eft ventricular systolic function is normal and the ejection fraction is within normal range. The Eje ction Fraction is 60-65%. There is normal LV segmental wall motion. The left ventricular diastolic fu nction and filling is normal for age. There is no ventricular septal defect visualized. RIGHT VENTRICLE The right ventricle is normal size. There is normal right ventricular wall thickness. The right ventr icular systolic function is normal. ATRIA The left atrium is mildly dilated. The right atrium size is normal. There is no Doppler evidence for an atrial septal defect. Injection of bubbles documented no interatrial shunt. AORTIC VALVE The aortic valve is normal in structure and function. Doppler and Color Flow revealed no significant aortic regurgitation. There is no significant aortic valvular stenosis. MITRAL VALVE There is no evidence of mitral valve prolapse. There is no mitral valve stenosis. Doppler and Color F low revealed trace mitral regurgitation. TRICUSPID VALVE Doppler and Color Flow revealed trace tricuspid regurgitation. The pulmonary artery systolic pressure is estimated at 31 mmHg. There is mild pulmonary hypertension. PULMONIC VALVE Doppler and Color Flow revealed trace pulmonic valvular regurgitation. There is no pulmonic valvular stenosis. GREAT VESSELS The aortic root is normal in size. The ascending aorta is normal in size. The IVC is normal in size a nd collapses >50% with inspiration. PERICARDIAL EFFUSION There is no evidence of significant pericardial effusion. Critical Notification Critical Value: No <Conclusion> The left ventricular systolic function is normal and the ejection fraction is within normal range. Th e Ejection Fraction is 60-65%. There is normal LV segmental wall motion. There is no Doppler evidence for an atrial septal defect. Injection of bubbles documented no interatr ial shunt.
== END 2016-11-20 11:40 | disposition home or self-care (01) | DRG 59 ==
LOC: ER 10:30 → 6 SOUTH 12:15
PROVIDERS: ADMIT Internal Medicine; ATTEND Internal Medicine
DX: G35 Multiple sclerosis (principal); G45.9 Transient cerebral ischemic attack, unspecified; I10 Essential (primary) hypertension; I16.0 Hypertensive urgency; N40.0 Benign prostatic hyperplasia without lower urinary tract symptoms; Z79.82 Long term (current) use of aspirin; Z82.49 Family history of ischemic heart disease and other diseases of the circulatory system; Z79.899 Other long term (current) drug therapy
CPT/HCPCS: 99285; C8929; 36415; 70450; 70544; 70551; 71010; 80053; 80061; 81001; 82607; 82947; 84443; 85027; 85610; 85651; 85730; 93005; 93880; 96374; G0481; J0360

== ENCOUNTER 2020-06-30 14:58 | Emergency (ER) | payer BC ==
[~2020-06-30] VITALS: Ht 175.3 cm; Wt 100.0 kg
[~2020-06-30 14:58] MED LIST changes: +AMLO-187 PO; +ASPI325T8 PO; +ATOR10TA60 PO; +CARV12.511 PO; +LOSA100T14 PO; +LOSA25TA54 PO; +MELO7.5T29 PO; +METF500T16 PO; -METF500T4 PO; +METO-247; +TAMS0.4C2 PO; +TAMS0.4C97 PO
--- NOTE | 2020-06-30 15:23 | PHYS DOC ---
Past Medical History Past Medical History: Hypertension Past Surgical History: Other Additional Past Surgical Histo: L knee, R shoulder Smoking Status: Never Smoker Alcohol Use: Occasionally Drug Use: None General Adult EDM: Chief Complaint: NECK PAIN HPI: HPI: Patient is a 59 year old male who presents with complaint of neck pain. Patient has had 1 month of neck pain that is progressively got worse over the st couple days. Patient does a lot of work with his arms and has increased pain with activity. Patient says the symptoms were moderate and are now severe with range of motion. Patient describes the pain in the right upper trapezius area that radiates, right arm. Patient has some tingling into his fingers. Patient says he has some trouble with the dexterity in his right hand as well. Patient said he had MRI couple years ago which showed some stenosis. Patient denies any acute trauma. Patient says the pain is described as sharp in nature Review of Systems: Review of Systems: Constitutional: Denies fever or chills. [] Eyes: Denies change in visual acuity. [] HENT: Denies nasal congestion or sore throat. [] Respiratory: Denies cough or shortness of breath. [] Cardiovascular: Denies chest pain or edema. [] GI: Denies abdominal pain, nausea, vomiting, bloody stools or diarrhea. [] : Denies dysuria. [] Musculoskeletal: Complains of neck pain Integument: Denies rash. [] Neurologic: Denies headache, complains of some tingling in his right hand Endocrine: Denies polyuria or polydipsia. [] Lymphatic: Denies swollen glands. [] Psychiatric: Denies depression or anxiety. [] Heart Score: Risk Factors: Risk Factors: DM, Current or recent (<one month) smoker, HTN, HLP, family history of CAD, obesity. Risk Scores: Score 0 - 3: 2.5% MACE over next 6 weeks - Discharge Home Score 4 - 6: 20.3% MACE over next 6 weeks - Admit for Clinical Observation Score 7 - 10: 72.7% MACE over next 6 weeks - Early Invasive Strategies Current Medications: Current Medications Medications (Trade) Dose Ordered Sig/Vern[place] Start Time Stop Time Status Last Admin Dose Admin Lidocaine HCl (Lidocaine 1% 20ml Vial) 20 ml 1X ONCE 06/30/20 15:30 06/30/20 15:31 UNV Allergies: Allergies: Allergies Coded Allergies Type Severity Reaction Last Updated Verified No Known Drug Allergies 10/07/15 No Physical Exam: PE: Constitutional: Well developed, well nourished, no acute distress, non-toxic meredith earance. [] HENT: Normocephalic, atraumatic, bilateral external ears normal, no trismus nose normal. [] Eyes: PERRLA, EOMI, conjunctiva normal, no discharge. [] Neck: Tender to palpate the right trapezius muscle Cardiovascular:Heart rate regular rhythm, peripheral pulses intact cap refill is brisk Lungs & Thorax: Bilateral breath sounds clear, no respiratory distress Abdomen: , soft, no tenderness, no masses, no pulsatile masses. [] Skin: Warm, dry, no erythema, no rash. [] Back: No tenderness, no CVA tenderness. [] Extremities: No tenderness, no cyanosis, no clubbing, ROM intact, no edema. [] Neurologic: Alert and oriented X 3, normal motor function, normal sensory funct ion, no focal deficits noted. [] Psychologic: Affect normal, judgement normal, mood normal. [] EKG: EKG: [] Radiology/Procedures: Radiology/Procedures: [] Course & Med Decision Making: Course & Med Decision Making Pertinent Labs and Imaging studies reviewed. (See chart for details) [] Procedure note: Trigger point injection Clinical indication right trapezius muscle spasm. After obtaining verbal consent the skin was prepped with alcohol prep and a 22- gauge needle was used to inject 2 to 3 mL of 1% lidocaine. Patient tolerated well. No complications. 59-year-old male presents with radicular right-sided neck pain. Symptoms are consistent with cervical radiculopathy. Patient has no focal neurological deficits on my exam. Patient be treated with anti-inflammatories and muscle relaxants. Patient to follow-up with a spinal specialist. Return precautions given. Dragon Disclaimer: Linda Disclaimer: This electronic medical record was generated, in whole or in part, using a voice recognition dictation system. Departure Departure Impression: Primary Impression: Cervical radiculopathy Disposition: 01 DC HOME SELF CARE/HOMELESS Condition: STABLE Referrals: [facility] MD (PCP) KELLEN BRUNO MD 2-3 DAYS Patient Instructions: Cervical Radiculopathy Additional Instructions: EMERGENCY DEPARTMENT GENERAL DISCHARGE INSTRUCTIONS THANK YOU for coming to [facility] Emergency Department (ED) today and trusting us with your care. We trust that you had a positive experience in our Emergency Department. If you wish to speak to the department Management you can contact the billing department supervisor at . YOUR FOLLOW UP INSTRUCTIONS ARE FOLLOWS: Do you have a private doctor? If you do not have a private doctor, please ask for a resource list of physicians or clinics that may be able to assist you with follow up care. The Emergency Physician has interpreted your x-rays. The X-ray specialist will also review them. If there is a change in the findings you will be notified in 48 hours when at all possible. A lab test or lab culture may have been done, your results will be reviewed and you will be notified if you need a change in treatment. ADDITIONAL INSTRUCTIONS AND INFORMATION Your care today has been supervised by a physician who is specially trained in emergency care. Many problems require more than one evaluation for a complete diagnosis and treatment. We recommend that you schedule your follow up appointment as recommended to ensure complete treatment of your illness or injury. If you are unable to obtain follow up care and continue to have a problem, or if your condition worsens we recommend that you return to the ED. We are not able to safely determine your condition over the phone nor are we able to give sound medical advice over the phone. For these safety reasons, if you call for medical advice we will ask you to come to the ED for further evaluation If you have any questions regarding these discharge instructions please call the ED at . SAFETY INFORMATION In the interest of safety, wellness, and injury prevention; we encourage you to wear your seatbelt, if you smoke; quit smoking, and we encourage your family to use protective helmet for bicycling and other sporting events that present an increased risk for head injury. IF YOUR SYMPTOMS WORSEN OR NEW SYMPTOMS DEVELOP, OR YOU HAVE CONCERNS ABOUT YOUR CONDITION; OR IF YOUR CONDITION WORSENS WHILE YOU ARE WAITING FOR YOUR FOLLOW UP APPOINTMENT; EITHER CONTACT YOUR PRIMARY CARE DOCTOR, THE PHYSICIAN WHOSE NAME AND NUMBER YOU WERE GIVEN, OR RETURN TO THE ED IMMEDIATELY. Scripts Diazepam (VALIUM) 5 Mg Tablet 5 MG PO TID for SPASM, #15 TAB Prov: CINDA ERNANDEZ MD 06/30/20 Ibuprofen (IBUPROFEN) 600 Mg Tablet 600 MG PO PRN Q6HRS PRN for PAIN, #20 TAB take with food or milk Prov: CINDA ERNANDEZ MD 06/30/20 CINDA ERNANDEZ MD Jun 30, 2020 15:23
[2020-06-30] MEDS ORDERED: LIDOCAINE 1% Multi-Dose 20 ML VIAL. INJ ONE (15:30)
[2020-06-30] MEDS ORDERED: IBUP-1007 PO (15:42)
[2020-06-30] MEDS ORDERED: DIAZ5TAB PO (15:42)
[2020-06-30 16:05] VITALS: BP 138/73
== END 2020-06-30 16:08 | disposition home or self-care (01) ==
LOC: ER 14:58
DX: M54.12 Radiculopathy, cervical region (principal); I10 Essential (primary) hypertension
CPT/HCPCS: 20552; 99284; J3490

== ENCOUNTER 2020-08-27 08:54 | Inpatient (IN) | payer BC ==
[~2020-08-27] VITALS: Ht 172.7 cm; Wt 99.3 kg
[~2020-08-27 08:54] MED LIST changes: +DIAZ5TAB PO; +IBUP-1007 PO
[2020-08-27] MEDS ORDERED: IV NORMAL SALINE 1000ML BAG 1,000 ML IV ONE ×3 (10:00→11:15)
--- NOTE | 2020-08-27 10:16 | RAD ---
AP chest. HISTORY: Weakness AP view was taken of the chest. Lungs are clear. There is no pneumothorax or pleural effusion. Heart is normal in size. IMPRESSION: 1. No acute chest disease. Electronically signed by: Jared Skelton MD (08/27/2020 10:13 AM) [facility]
--- NOTE | 2020-08-27 10:20 | PHYS DOC ---
Past Medical History Past Medical History: High Cholesterol, Hypertension Additional Past Medical Histor: "prediabetes" Past Surgical History: Other Additional Past Surgical Histo: L knee, R shoulder Smoking Status: Never Smoker Alcohol Use: Occasionally Drug Use: None General Adult EDM: Chief Complaint: WEAKNESS/GENERALIZED HPI: HPI: Patient is a 59 year old presents with report of generalized weakness that has been progressive over the last several weeks. Patient also reports polyuria and polydipsia which has been worse over the past 3 days. Patient does report some low back pain which is worse when walking to the bathroom. Denies any fe cesar/chills, body aches, cough, shortness of breath, or nausea/vomiting/diarrhea. Patient denies known sick contacts. Denies exposure to COVID-19. 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 Patient does report history of "prediabetes" and reports he stopped taking his Metformin approximately 5-6 ago. Review of Systems: Review of Systems: Constitutional: Denies fever or chills Eyes: Denies redness or eye pain HENT: Denies nasal congestion or sore throat Respiratory: Denies cough or shortness of breath Cardiovascular: Denies chest pain or palpitations GI: Denies abdominal pain, nausea, or vomiting : Reports polyuria Musculoskeletal: Reports low back pain; denies joint pain Integument: Denies rash or skin lesions Neurologic: Denies headache, focal weakness or sensory changes; reports generalized weakness Complete systems were reviewed and found to be within normal limits, except as documented in this note. Current Medications: Current Medications Medications (Trade) Dose Ordered [facility] Start Time Stop Time Status Last Admin Dose Admin Sodium Chloride 1,000 ml @ 1,000 mls/hr 1X ONCE 08/27/20 10:00 08/27/20 10:59 08/27/20 10:00 1,000 MLS/HR Allergies: Allergies: Allergies Coded Allergies Type Severity Reaction Last Updated Verified No Known Drug Allergies 10/07/15 No Physical Exam: PE: Constitutional: Well developed, well nourished, no acute distress, non-toxic appearance HENT: Normocephalic, atraumatic, mucous membranes dry Eyes: PERRL, EOMI, conjunctiva normal, no discharge Neck: Normal range of motion, no tenderness, supple Lungs & Thorax: No respiratory distress, equal chest rise and fall Abdomen: Soft, no tenderness, no guarding/rebound tenderness/distention, reducible umbilical hernia noted Skin: Warm, dry, no erythema, no rash Back: No midline tenderness, no CVA tenderness, lumbar paraspinal tenderness noted Extremities: No tenderness, ROM intact, no edema Neurologic: Alert and oriented X 3, normal motor function, normal sensory function, no focal deficits noted Psychologic: Affect normal, judgment normal EKG: EKG: @1037 NSR at 78bpm, NO ST elevation, QRS 76ms, QT/QTc 358/411ms, nonspecific t wave inversion III Radiology/Procedures: Radiology/Procedures: PROCEDURE: PORTABLE CHEST 1V AP chest. HISTORY: Weakness AP view was taken of the chest. Lungs are clear. There is no pneumothorax or pleural effusion. Heart is normal in size. IMPRESSION: 1. No acute chest disease. Electronically signed by: Jared Skelton MD (08/27/2020 10:13 AM) [facility] PROCEDURE: CT HEAD WO CONTRAST CT head without contrast 08/27/2020. Reason for exam: Weakness. Noncontrast images were performed. Exposure: One or more of the following individualized dose reduction techniques were utilized for this examination: 1. Automated exposure control 2. Adjustment of the mA and/or kV according to patient size 3. Use of iterative reconstruction technique. Comparison is made with a study of 11/18/2016. FINDINGS: There is no apparent intracranial mass, hemorrhage or abnormal extra- axial fluid collection. Patchy low attenuation is again seen in the cerebral white matter. No new area of abnormal density is seen. The ventricles and basilar cisterns are normally positioned. The sinuses and mastoid air cells appear clear. IMPRESSION: No evidence of acute abnormality. Electronically signed by: Graham Parks Jr., MD (08/27/2020 10:24 AM) [id number] Course & Med Decision Making: Course & Med Decision Making Pertinent Labs and Imaging studies reviewed. (See chart for details) Patient presents with several week history of progressive generalized weakness. Patient now with polydipsia and polyuria x3 days. Accu-Chek read high. Patient does report history of "prediabetes ". Reports has stopped taking his Metformin for the last 5 to 6 months. IV fluid hydration provided. Labs obtained and posted to chart. Glucose greater than 700. Acetone negative. Osmolality pending. Insulin given. Renal insufficiency noted. Clinical signs of dehydration. CT head/chest x-ray without acute finding. Patient requiring admission for further evaluation and treatment. Discussed with Dr. Mena (hospitalist) who is in agreement with admission. Discussed findings and plan with patient, who acknowledges understanding and agreement. Dragon Disclaimer: Dragon Disclaimer: This electronic medical record was generated, in whole or in part, using a voice recognition dictation system. Departure Departure Impression: Primary Impression: Generalized weakness Additional Impressions: Hyperglycemia Acute renal insufficiency Disposition: ADMITTED INPT THIS HOSP Admitting Physician: YINA Andersen) Condition: STABLE Referrals: [facility] ALONSO MD (PCP) NIHSS Stroke Scale NIH Stroke Scale: NIH Stroke Scale Response (Comments) Value Level of Consciousness: 0 Alert/Responsive 0 LOC Questions: 0 Answers both correctly 0 LOC Commands: 0 Performs both tasks 0 Best Gaze: 0 Normal 0 Visual: 0 No visual loss 0 Facial Palsy: 0 Normal, symmetrical 0 Motor - Left Arm 0 No drift 0 Motor - Right Arm 0 No drift 0 Motor - Left Leg 0 No drift 0 Motor: Right Leg 0 No drift 0 Limb Ataxia: 0 Absent 0 Sensory: 0 No loss 0 Best Language: 0 Normal 0 Dysathria: 0 Normal 0 Extinction and Inattention: 0 Normal 0 Total 0 ALMANZA,CHRISTI Gregg DO Aug 27, 2020 10:19
[2020-08-27 10:38] LABS: BILIRUBIN,URINE NEGATIVE (NEG); CLARITY,URINE CLEAR; COLOR,URINE YELLOW; NITRITE,URINE NEGATIVE (NEG); PH,URINE 5.5 (<5.0-8.0); PROTEIN,URINE NEGATIVE (NEG-TRACE); UROBILINOGEN,URINE 0.2 mg/dL (0.2 mg/dL)
--- NOTE | 2020-08-27 10:39 | RAD ---
CT head without contrast 08/27/2020. Reason for exam: Weakness. Noncontrast images were performed. Exposure: One or more of the following individualized dose reducti on techniques were utilized for this examination: 1. Automated exposure control 2. Adjustment of th e mA and/or kV according to patient size 3. Use of iterative reconstruction technique. Comparison is made with a study of 11/18/2016. FINDINGS: There is no apparent intracranial mass, hemorrhage or abnormal extra-axial fluid collection . Patchy low attenuation is again seen in the cerebral white matter. No new area of abnormal density is seen. The ventricles and basilar cisterns are normally positioned. The sinuses and mastoid air stephen ls appear clear. IMPRESSION: No evidence of acute abnormality. Electronically signed by: Graham Parks Jr., MD (08/27/2020 10:24 AM) [id number]
[2020-08-27 10:42] LABS: ALBUMIN 3.6 g/dL (3.4-5.0); ALBUMIN/GLOBULIN RATIO 0.8 (1.0-1.7); CALCIUM 9.3 mg/dL (8.5-10.1); CREATININE 1.6 mg/dL (0.7-1.3); GFR 53.6; MAGNESIUM 2.4 mg/dL (1.8-2.4); POTASSIUM 4.9 mmol/L (3.5-5.1); TOTAL BILIRUBIN 0.9 mg/dL (0.2-1.0); TOTAL PROTEIN 8.3 g/dL (6.4-8.2)
[2020-08-27 10:47] LABS: CREATINE KINASE 137 U/L (39-308)
[2020-08-27 11:00] LABS: BASO # 0.1 x10^3/uL (0.0-0.2); BASO % 1 % (0-3); EOS # 0.2 x10^3/uL (0.0-0.7); EOS % 2 % (0-3); HEMATOCRIT 43.4 % (39.0-53.0); HEMOGLOBIN 14.5 g/dL (13.0-17.5); LYMPH # 1.8 x10^3/uL (1.0-4.8); LYMPH % 22 % (24-48); MEAN CORPUSCULAR HEMOGLOBIN 28 pg (25-35); MEAN CORPUSCULAR HGB CONC 34 g/dL (31-37); MEAN CORPUSCULAR VOLUME 84 fL (79-100); MONO # 0.6 x10^3/uL (0.0-1.1); MONO % 7 % (0-9); NEUT # 5.7 x10^3/uL (1.8-7.7); NEUT % 68 % (31-73); PLATELET COUNT 207 x10^3/uL (140-400); RED BLOOD COUNT 5.18 x10^6/uL (4.30-5.70); RED CELL DISTRIBUTION WIDTH 13.2 % (11.5-14.5); WHITE BLOOD COUNT 8.4 x10^3/uL (4.0-11.0)
[2020-08-27] MEDS ORDERED: INSULIN REGULAR 100 UNIT/ML 3ML VIAL. SQ ONE (11:00)
[2020-08-27] MEDS ORDERED: ONDANSETRON PF 4 MG/2 ML VIAL. IV PRN ×2 (11:15→12:00)
[2020-08-27] MEDS ORDERED: DEXTROSE 50% 25 GM / 50ML DISP.SYRIN. IV PRN ×2 (11:15→12:00)
[2020-08-27 11:28] LABS: BACTERIA,URINE 0 /HPF (0-FEW); RBC,URINE 0 /HPF (0-2); WBC,URINE OCC /HPF (0-4)
[2020-08-27] MEDS ORDERED: fentaNYL PF VIAL 100 MCG/2 ML VIAL IVP PRN (11:45)
[2020-08-27] MEDS ORDERED: ORPHENADRINE CITRATE 60 MG/2 ML VIAL. IV ONE (11:45)
[2020-08-27] MEDS ORDERED: ENOXAPARIN 40 MG/0.4 ML SYRINGE. SQ SCH (12:00)
[2020-08-27] MEDS ORDERED: LORazepam 0.5 MG TABLET PO PRN (12:00)
[2020-08-27] MEDS ORDERED: IPRATRPIUM/ALBUTEROL 0.5/2.5MG 3 ML NEBU. NEB SCH (12:00)
[2020-08-27] MEDS ORDERED: DOCUSATE SODIUM 100 MG CAPSULE. PO PRN (12:00)
[2020-08-27] MEDS ORDERED: guaiFENesin ORAL 200 MG/10 ML LIQUID. PO PRN (12:00)
[2020-08-27] MEDS ORDERED: ACETAMINOPHEN 325 MG TABLET. PO PRN (12:00)
[2020-08-27] MEDS: IV NORMAL SALINE 1000ML BAG 1,000 ML IV SCH ×2 (12:00→21:42)
[2020-08-27] MEDS ORDERED: ZOLPIDEM 5 MG TABLET. PO PRN (12:00)
[2020-08-27] MEDS ORDERED: ALBUTEROL SULFATE 2.5 MG/3 ML NEBU. NEB PRN (12:30)
[2020-08-27 12:56] LABS: CHOLESTEROL/HDL RATIO 4.1
[2020-08-27] MEDS: INSULIN GLARGINE SYRINGE. SQ SCH ×2 (15:03→21:45)
[2020-08-27] MEDS: INSULIN LISPRO 300 UNITS/3 ML VIAL. SQ SCH ×3 (15:08→17:46)
--- NOTE | 2020-08-27 16:28 | PDOC1 ---
History and Physical Date of Admission Date of Admission August 27, 2020 Identification/Chief Complaint Chief Complaint I feel weak Source Source: Chart review, Patient History of Present Illness History of Present Illness Patient is a 59-year-old gentleman with past medical history of essential hypertension dyslipidemia and he was told to be prediabetic who has been weaker than usual, like lightheaded. The patient denies any polyuria polyphagia polydipsia prior to his presentation to the ER today. He actually says that his vision has gotten better over the last week or so. Nevertheless patient has been feeling nauseous has not been able to eat as much as he usually does no changes in his diet has been reported no recent infections no upper respiratory tract infections no headaches no fever no chills no body aches. He has not been exposed to people infected with coronavirus. He was found to have 700 glycemia in the emergency department reason why we were asked to admit the patient to stabilize his new diagnosis of diabetes. He does not take medications on a regular basis. He is in no acute distress no chest pain palpitations no shortness of breath no paroxysmal internal dyspnea no nausea vomiting or diarrhea has been reported. Patient is eating at the time of my visit and seems to be in no acute distress. Plan of care has been explained detail all of his concerns addressed to the best of my abilities Past Medical History Cardiovascular: HTN, Hyperlipidemia Past Surgical History Past Surgical History: No pertinent history Family History Family History: No Significant Social History Smoke: No ALCOHOL: none Drugs: None Current Problem List Problem List Problems Medical Problems: (1) Acute renal insufficiency Status: Acute (2) Generalized weakness Status: Acute (3) Hyperglycemia Status: Acute Current Medications Current Medications Current Medications Medications (Trade) Dose Ordered Sig/[place] Start Time Stop Time Status Last Admin Dose Admin Acetaminophen (Tylenol) 650 mg PRN Q4HRS PRN 08/27/20 12:00 Albuterol Sulfate (Ventolin Neb Soln) 2.5 mg PRN Q4HRS PRN 08/27/20 12:30 Albuterol/ Ipratropium (Duoneb) 3 ml Q4H 08/27/20 12:00 08/27/20 12:25 DC Dextrose (Dextrose 50%-Water Syringe) 12.5 gm PRN Q15MIN PRN 08/27/20 12:00 08/27/20 12:26 DC Docusate Sodium (Colace) 100 mg PRN BID PRN 08/27/20 12:00 Enoxaparin Sodium (Lovenox 40mg Syringe) 40 mg Q24H 08/27/20 12:00 Fentanyl Citrate (Fentanyl 2ml Vial) 50 mcg PRN Q2HR PRN 08/27/20 11:45 08/28/20 11:44 08/27/20 12:23 50 MCG Guaifenesin (Robitussin) 200 mg PRN Q4HRS PRN 08/27/20 12:00 Insulin Glargine (Lantus Syringe) 12 unit BID 08/27/20 12:00 08/27/20 15:03 12 UNIT Insulin Human Lispro (HumaLOG) 8 units TIDAC 08/27/20 16:30 Insulin Human Regular (HumuLIN R VIAL) 10 unit 1X ONCE 08/27/20 11:00 08/27/20 11:01 DC 08/27/20 11:17 10 UNIT Lorazepam (Ativan) 0.5 mg PRN Q4HRS PRN 08/27/20 12:00 Ondansetron HCl (Zofran) 4 mg PRN Q4HRS PRN 08/27/20 12:00 Orphenadrine Citrate (Norflex) 60 mg 1X ONCE 08/27/20 11:45 08/27/20 11:46 DC Sodium Chloride 1,000 ml @ 100 mls/hr Q10H 08/27/20 12:00 Zolpidem Tartrate (Ambien) 5 mg PRN QHS PRN 08/27/20 12:00 Allergies Allergies Allergies Coded Allergies Type Severity Reaction Last Updated Verified No Known Drug Allergies 10/07/15 No ROS Review of System CONSTITUTIONAL: No fever or chills EYES: No recent changes SKIN: No rash or itching CARDIOVASCULAR: No chest pain, syncope, palpitations, or edema RESPIRATORY: No SOB or cough GASTROINTESTINAL: No nausea, vomiting or abdominal pain NEUROLOGICAL: No headaches or weakness ENDOCRINE: No cold or heat intolerance GENITOURINARY: No urgency or frequency of urination MUSCULOSKELETAL: No back pain or joint pain LYMPHATICS: No enlarged lymph nodes PSYCHIATRIC: No anxiety or depression Physical Exam Physical Exam GEN.: No apparent distress. Alert and oriented. HEENT: Head is normocephalic, atraumatic NECK: Supple. LUNGS: Clear to auscultation. HEART: RRR, S1, S2 present. Peripheral pulses intact ABDOMEN: Soft, nontender. Positive bowel sounds. EXTREMITIES: Without any cyanosis. NEUROLOGIC: Normal speech, normal tone PSYCHIATRIC: Normal affect, normal mood. SKIN: No ulcerations Vitals Vitals Vital Signs Date Time Temp Pulse Resp B/P (MAP) Pulse Ox O2 Delivery O2 Flow Rate FiO2 08/27/20 10:42 84 18 96 08/27/20 09:25 98.1 141/84 (103) Room Air 98.1 Labs Labs Laboratory Tests Test 08/27/20 09:30 08/27/20 10:00 08/27/20 15:00 Urine Collection Type Unknown Urine Color Yellow Urine Clarity Clear Urine pH 5.5 (<5.0-8.0) Urine Specific Hurst >=1.030 (1.000-1.030) Urine Protein Negative mg/dL (NEG-TRACE) Urine Glucose (UA) >=1000 mg/dL (NEG) Urine Ketones (Stick) Negative mg/dL (NEG) Urine Blood Negative (NEG) Urine Nitrite Negative (NEG) Urine Bilirubin Negative (NEG) Urine Urobilinogen Dipstick 0.2 mg/dL (0.2 mg/dL) Urine Leukocyte Esterase Negative (NEG) Urine RBC 0 /HPF (0-2) Urine WBC Occ /HPF (0-4) Urine Squamous Epithelial Cells Occ /LPF Urine Bacteria 0 /HPF (0-FEW) White Blood Count 8.4 x10^3/uL (4.0-11.0) Red Blood Count 5.18 x10^6/uL (4.30-5.70) Hemoglobin 14.5 g/dL (13.0-17.5) Hematocrit 43.4 % (39.0-53.0) Mean Corpuscular Volume 84 fL (79-100) Mean Corpuscular Hemoglobin 28 pg (25-35) Mean Corpuscular Hemoglobin Concent 34 g/dL (31-37) Red Cell Distribution Width 13.2 % (11.5-14.5) Platelet Count 207 x10^3/uL (140-400) Neutrophils (%) (Auto) 68 % (31-73) Lymphocytes (%) (Auto) 22 % (24-48) Monocytes (%) (Auto) 7 % (0-9) Eosinophils (%) (Auto) 2 % (0-3) Basophils (%) (Auto) 1 % (0-3) Neutrophils # (Auto) 5.7 x10^3/uL (1.8-7.7) Lymphocytes # (Auto) 1.8 x10^3/uL (1.0-4.8) Monocytes # (Auto) 0.6 x10^3/uL (0.0-1.1) Eosinophils # (Auto) 0.2 x10^3/uL (0.0-0.7) Basophils # (Auto) 0.1 x10^3/uL (0.0-0.2) Sodium Level 127 mmol/L (136-145) Potassium Level 4.9 mmol/L (3.5-5.1) Chloride Level 91 mmol/L (98-107) Carbon Dioxide Level 25 mmol/L (21-32) Anion Gap 11 (6-14) Blood Urea Nitrogen 22 mg/dL (8-26) Creatinine 1.6 mg/dL (0.7-1.3) Estimated GFR (Cockcroft-Gault) 53.6 BUN/Creatinine Ratio 14 (6-20) Glucose Level 737 mg/dL (70-99) Lactic Acid Level 1.5 mmol/L (0.4-2.0) Calcium Level 9.3 mg/dL (8.5-10.1) Magnesium Level 2.4 mg/dL (1.8-2.4) Total Bilirubin 0.9 mg/dL (0.2-1.0) Aspartate Amino Transf (AST/SGOT) 20 U/L (15-37) Alanine Aminotransferase (ALT/SGPT) 38 U/L (16-63) Alkaline Phosphatase 171 U/L (46-116) Creatine Kinase 137 U/L (39-308) Creatine Kinase MB (Mass) < 0.5 ng/mL (0.0-3.6) Creatine Kinase MB Relative Index % (0-4) Troponin I Quantitative < 0.017 ng/mL (0.000-0.055) Total Protein 8.3 g/dL (6.4-8.2) Albumin 3.6 g/dL (3.4-5.0) Albumin/Globulin Ratio 0.8 (1.0-1.7) Triglycerides Level 180 mg/dL (0-150) Cholesterol Level 158 mg/dL (0-200) LDL Cholesterol, Calculated 83 mg/dL (0-100) VLDL Cholesterol, Calculated 36 mg/dL (0-40) Non-HDL Cholesterol Calculated 119 mg/dL (0-129) HDL Cholesterol 39 mg/dL (40-60) Cholesterol/HDL Ratio 4.1 Acetone Level Neg (NEG) Glucose (Fingerstick) 530 mg/dL (70-99) Laboratory Tests Test 08/27/20 09:30 08/27/20 10:00 08/27/20 15:00 Urine Collection Type Unknown Urine Color Yellow Urine Clarity Clear Urine pH 5.5 (<5.0-8.0) Urine Specific Hurst >=1.030 (1.000-1.030) Urine Protein Negative mg/dL (NEG-TRACE) Urine Glucose (UA) >=1000 mg/dL (NEG) Urine Ketones (Stick) Negative mg/dL (NEG) Urine Blood Negative (NEG) Urine Nitrite Negative (NEG) Urine Bilirubin Negative (NEG) Urine Urobilinogen Dipstick 0.2 mg/dL (0.2 mg/dL) Urine Leukocyte Esterase Negative (NEG) Urine RBC 0 /HPF (0-2) Urine WBC Occ /HPF (0-4) Urine Squamous Epithelial Cells Occ /LPF Urine Bacteria 0 /HPF (0-FEW) White Blood Count 8.4 x10^3/uL (4.0-11.0) Red Blood Count 5.18 x10^6/uL (4.30-5.70) Hemoglobin 14.5 g/dL (13.0-17.5) Hematocrit 43.4 % (39.0-53.0) Mean Corpuscular Volume 84 fL (79-100) Mean Corpuscular Hemoglobin 28 pg (25-35) Mean Corpuscular Hemoglobin Concent 34 g/dL (31-37) Red Cell Distribution Width 13.2 % (11.5-14.5) Platelet Count 207 x10^3/uL (140-400) Neutrophils (%) (Auto) 68 % (31-73) Lymphocytes (%) (Auto) 22 % (24-48) Monocytes (%) (Auto) 7 % (0-9) Eosinophils (%) (Auto) 2 % (0-3) Basophils (%) (Auto) 1 % (0-3) Neutrophils # (Auto) 5.7 x10^3/uL (1.8-7.7) Lymphocytes # (Auto) 1.8 x10^3/uL (1.0-4.8) Monocytes # (Auto) 0.6 x10^3/uL (0.0-1.1) Eosinophils # (Auto) 0.2 x10^3/uL (0.0-0.7) Basophils # (Auto) 0.1 x10^3/uL (0.0-0.2) Sodium Level 127 mmol/L (136-145) Potassium Level 4.9 mmol/L (3.5-5.1) Chloride Level 91 mmol/L (98-107) Carbon Dioxide Level 25 mmol/L (21-32) Anion Gap 11 (6-14) Blood Urea Nitrogen 22 mg/dL (8-26) Creatinine 1.6 mg/dL (0.7-1.3) Estimated GFR (Cockcroft-Gault) 53.6 BUN/Creatinine Ratio 14 (6-20) Glucose Level 737 mg/dL (70-99) Lactic Acid Level 1.5 mmol/L (0.4-2.0) Calcium Level 9.3 mg/dL (8.5-10.1) Magnesium Level 2.4 mg/dL (1.8-2.4) Total Bilirubin 0.9 mg/dL (0.2-1.0) Aspartate Amino Transf (AST/SGOT) 20 U/L (15-37) Alanine Aminotransferase (ALT/SGPT) 38 U/L (16-63) Alkaline Phosphatase 171 U/L (46-116) Creatine Kinase 137 U/L (39-308) Creatine Kinase MB (Mass) < 0.5 ng/mL (0.0-3.6) Creatine Kinase MB Relative Index % (0-4) Troponin I Quantitative < 0.017 ng/mL (0.000-0.055) Total Protein 8.3 g/dL (6.4-8.2) Albumin 3.6 g/dL (3.4-5.0) Albumin/Globulin Ratio 0.8 (1.0-1.7) Triglycerides Level 180 mg/dL (0-150) Cholesterol Level 158 mg/dL (0-200) LDL Cholesterol, Calculated 83 mg/dL (0-100) VLDL Cholesterol, Calculated 36 mg/dL (0-40) Non-HDL Cholesterol Calculated 119 mg/dL (0-129) HDL Cholesterol 39 mg/dL (40-60) Cholesterol/HDL Ratio 4.1 Acetone Level Neg (NEG) Glucose (Fingerstick) 530 mg/dL (70-99) VTE Prophylaxis Ordered VTE Prophylaxis Devices: No VTE Pharmacological Prophylaxi: Yes Assessment/Plan Assessment/Plan Uncontrolled diabetes type 2 Hyperglycemia History of dyslipidemia Pseudohyponatremia History of essential hypertension Plan ADA diet We will give IV fluids 1 L further recommendations based on the clinical course Start insulin with Lantus twice a day and lispro with meals Follow response to therapy Lipid panel We will request a hemoglobin A1c DVT prophylaxis with Lovenox Justifications for Admission Other Justification uncontrolled diabetes CHRISTINE HOWARD MD Aug 27, 2020 16:27
[2020-08-27 16:30] VITALS: BP 145/85
[2020-08-27 18:59] VITALS: BP 145/85
[2020-08-27 19:00] VITALS: BP_SYST 126
[2020-08-27] MEDS: ENOXAPARIN 40 MG/0.4 ML SYRINGE. SQ SCH (21:41)
[2020-08-27 23:00] VITALS: BP 125/66
[2020-08-28 03:11] VITALS: BP 131/71
[2020-08-28 07:00] VITALS: BP 139/79
--- NOTE | 2020-08-28 07:39 | PDOC ---
PROGRESS NOTES Date of Service: DATE: 08/28/20 TIME: 07:36 Chief Complaint Chief Complaint Assessment/Plan New diagnosis of diabetes Uncontrolled diabetes type 2 Hyperglycemia History of dyslipidemia Pseudohyponatremia History of essential hypertension Plan ADA diet Start insulin with Lantus twice a day and lispro with meals Follow response to therapy Lipid panel with slight elevation of triglycerides and low HDL. Patient could probably have a trial of 3 months of lifestyle modification Follow results of hemoglobin A1c Diabetic education Hopefully discharge in next 24 to 48 hours continues to do well DVT prophylaxis with Lovenox History of Present Illness History of Present Illness History of Present Illness Patient is a 59-year-old gentleman with past medical history of essential h ypertension dyslipidemia and he was told to be prediabetic who has been weaker than usual, like lightheaded. The patient denies any polyuria polyphagia polydipsia prior to his presentation to the ER today. He actually says that his vision has gotten better over the last week or so. Nevertheless patient has been feeling nauseous has not been able to eat as much as he usually does no changes in his diet has been reported no recent infections no upper respiratory tract infections no headaches no fever no chills no body aches. He has not been exposed to people infected with coronavirus. He was found to have 700 glycemia in the emergency department reason why we were asked to admit the patient to stabilize his new diagnosis of diabetes. He does not take medications on a regular basis. He is in no acute distress no chest pain palpitations no shortness of breath no paroxysmal internal dyspnea no nausea vomiting or diarrhea has been reported. Patient is eating at the time of my visit and seems to be in no acute distress. Plan of care has been explained detail all of his concerns addressed to the best of my abilities 08/28: No acute events reported overnight, case discussed with nursing staff patient in no acute distress no complaints during my visit we are still waiting for hemoglobin A1c to be reported this will determine whether he can be on oral hypoglycemias or if he will need insulin Vitals Vitals Vital Signs Date Time Temp Pulse Resp B/P (MAP) Pulse Ox O2 Delivery O2 Flow Rate FiO2 08/28/20 03:11 98.1 82 18 131/71 (91) 97 Room Air 98.1 Physical Exam Lungs: Clear Labs LABS Laboratory Tests Test 08/27/20 09:30 08/27/20 10:00 08/27/20 15:00 08/27/20 16:25 Urine Collection Type Unknown Urine Color Yellow Urine Clarity Clear Urine pH 5.5 (<5.0-8.0) Urine Specific [place] >=1.030 (1.000-1.030) Urine Protein Negative mg/dL (NEG-TRACE) Urine Glucose (UA) >=1000 mg/dL (NEG) Urine Ketones (Stick) Negative mg/dL (NEG) Urine Blood Negative (NEG) Urine Nitrite Negative (NEG) Urine Bilirubin Negative (NEG) Urine Urobilinogen Dipstick 0.2 mg/dL (0.2 mg/dL) Urine Leukocyte Esterase Negative (NEG) Urine RBC 0 /HPF (0-2) Urine WBC Occ /HPF (0-4) Urine Squamous Epithelial Cells Occ /LPF Urine Bacteria 0 /HPF (0-FEW) White Blood Count 8.4 x10^3/uL (4.0-11.0) Red Blood Count 5.18 x10^6/uL (4.30-5.70) Hemoglobin 14.5 g/dL (13.0-17.5) Hematocrit 43.4 % (39.0-53.0) Mean Corpuscular Volume 84 fL (79-100) Mean Corpuscular Hemoglobin 28 pg (25-35) Mean Corpuscular Hemoglobin Concent 34 g/dL (31-37) Red Cell Distribution Width 13.2 % (11.5-14.5) Platelet Count 207 x10^3/uL (140-400) Neutrophils (%) (Auto) 68 % (31-73) Lymphocytes (%) (Auto) 22 % (24-48) Monocytes (%) (Auto) 7 % (0-9) Eosinophils (%) (Auto) 2 % (0-3) Basophils (%) (Auto) 1 % (0-3) Neutrophils # (Auto) 5.7 x10^3/uL (1.8-7.7) Lymphocytes # (Auto) 1.8 x10^3/uL (1.0-4.8) Monocytes # (Auto) 0.6 x10^3/uL (0.0-1.1) Eosinophils # (Auto) 0.2 x10^3/uL (0.0-0.7) Basophils # (Auto) 0.1 x10^3/uL (0.0-0.2) Sodium Level 127 mmol/L (136-145) Potassium Level 4.9 mmol/L (3.5-5.1) Chloride Level 91 mmol/L (98-107) Carbon Dioxide Level 25 mmol/L (21-32) Anion Gap 11 (6-14) Blood Urea Nitrogen 22 mg/dL (8-26) Creatinine 1.6 mg/dL (0.7-1.3) Estimated GFR (Cockcroft-Gault) 53.6 BUN/Creatinine Ratio 14 (6-20) Glucose Level 737 mg/dL (70-99) Lactic Acid Level 1.5 mmol/L (0.4-2.0) Calcium Level 9.3 mg/dL (8.5-10.1) Magnesium Level 2.4 mg/dL (1.8-2.4) Total Bilirubin 0.9 mg/dL (0.2-1.0) Aspartate Amino Transf (AST/SGOT) 20 U/L (15-37) Alanine Aminotransferase (ALT/SGPT) 38 U/L (16-63) Alkaline Phosphatase 171 U/L (46-116) Creatine Kinase 137 U/L (39-308) Creatine Kinase MB (Mass) < 0.5 ng/mL (0.0-3.6) Creatine Kinase MB Relative Index % (0-4) Troponin I Quantitative < 0.017 ng/mL (0.000-0.055) < 0.017 ng/mL (0.000-0.055) Total Protein 8.3 g/dL (6.4-8.2) Albumin 3.6 g/dL (3.4-5.0) Albumin/Globulin Ratio 0.8 (1.0-1.7) Triglycerides Level 180 mg/dL (0-150) Cholesterol Level 158 mg/dL (0-200) LDL Cholesterol, Calculated 83 mg/dL (0-100) VLDL Cholesterol, Calculated 36 mg/dL (0-40) Non-HDL Cholesterol Calculated 119 mg/dL (0-129) HDL Cholesterol 39 mg/dL (40-60) Cholesterol/HDL Ratio 4.1 Acetone Level Neg (NEG) Glucose (Fingerstick) 530 mg/dL (70-99) Test 08/27/20 17:27 08/27/20 20:42 Glucose (Fingerstick) 336 mg/dL (70-99) 180 mg/dL (70-99) Review of Systems Review of Systems Review of systems pertinent as per HPI otherwise 14 point review of system is negative Assessment and Plan Assessmemt and Plan Problems Medical Problems: (1) Acute renal insufficiency Status: Acute (2) Generalized weakness Status: Acute (3) Hyperglycemia Status: Acute Comment Review of Relevant I have reviewed the following items michelle (where applicable) has been applied. Labs Laboratory Tests Test 08/27/20 09:30 08/27/20 10:00 08/27/20 15:00 08/27/20 16:25 Urine Collection Type Unknown Urine Color Yellow Urine Clarity Clear Urine pH 5.5 (<5.0-8.0) Urine Specific [place] >=1.030 (1.000-1.030) Urine Protein Negative mg/dL (NEG-TRACE) Urine Glucose (UA) >=1000 mg/dL (NEG) Urine Ketones (Stick) Negative mg/dL (NEG) Urine Blood Negative (NEG) Urine Nitrite Negative (NEG) Urine Bilirubin Negative (NEG) Urine Urobilinogen Dipstick 0.2 mg/dL (0.2 mg/dL) Urine Leukocyte Esterase Negative (NEG) Urine RBC 0 /HPF (0-2) Urine WBC Occ /HPF (0-4) Urine Squamous Epithelial Cells Occ /LPF Urine Bacteria 0 /HPF (0-FEW) White Blood Count 8.4 x10^3/uL (4.0-11.0) Red Blood Count 5.18 x10^6/uL (4.30-5.70) Hemoglobin 14.5 g/dL (13.0-17.5) Hematocrit 43.4 % (39.0-53.0) Mean Corpuscular Volume 84 fL (79-100) Mean Corpuscular Hemoglobin 28 pg (25-35) Mean Corpuscular Hemoglobin Concent 34 g/dL (31-37) Red Cell Distribution Width 13.2 % (11.5-14.5) Platelet Count 207 x10^3/uL (140-400) Neutrophils (%) (Auto) 68 % (31-73) Lymphocytes (%) (Auto) 22 % (24-48) Monocytes (%) (Auto) 7 % (0-9) Eosinophils (%) (Auto) 2 % (0-3) Basophils (%) (Auto) 1 % (0-3) Neutrophils # (Auto) 5.7 x10^3/uL (1.8-7.7) Lymphocytes # (Auto) 1.8 x10^3/uL (1.0-4.8) Monocytes # (Auto) 0.6 x10^3/uL (0.0-1.1) Eosinophils # (Auto) 0.2 x10^3/uL (0.0-0.7) Basophils # (Auto) 0.1 x10^3/uL (0.0-0.2) Sodium Level 127 mmol/L (136-145) Potassium Level 4.9 mmol/L (3.5-5.1) Chloride Level 91 mmol/L (98-107) Carbon Dioxide Level 25 mmol/L (21-32) Anion Gap 11 (6-14) Blood Urea Nitrogen 22 mg/dL (8-26) Creatinine 1.6 mg/dL (0.7-1.3) Estimated GFR (Cockcroft-Gault) 53.6 BUN/Creatinine Ratio 14 (6-20) Glucose Level 737 mg/dL (70-99) Lactic Acid Level 1.5 mmol/L (0.4-2.0) Calcium Level 9.3 mg/dL (8.5-10.1) Magnesium Level 2.4 mg/dL (1.8-2.4) Total Bilirubin 0.9 mg/dL (0.2-1.0) Aspartate Amino Transf (AST/SGOT) 20 U/L (15-37) Alanine Aminotransferase (ALT/SGPT) 38 U/L (16-63) Alkaline Phosphatase 171 U/L (46-116) Creatine Kinase 137 U/L (39-308) Creatine Kinase MB (Mass) < 0.5 ng/mL (0.0-3.6) Creatine Kinase MB Relative Index % (0-4) Troponin I Quantitative < 0.017 ng/mL (0.000-0.055) < 0.017 ng/mL (0.000-0.055) Total Protein 8.3 g/dL (6.4-8.2) Albumin 3.6 g/dL (3.4-5.0) Albumin/Globulin Ratio 0.8 (1.0-1.7) Triglycerides Level 180 mg/dL (0-150) Cholesterol Level 158 mg/dL (0-200) LDL Cholesterol, Calculated 83 mg/dL (0-100) VLDL Cholesterol, Calculated 36 mg/dL (0-40) Non-HDL Cholesterol Calculated 119 mg/dL (0-129) HDL Cholesterol 39 mg/dL (40-60) Cholesterol/HDL Ratio 4.1 Acetone Level Neg (NEG) Glucose (Fingerstick) 530 mg/dL (70-99) Test 08/27/20 17:27 08/27/20 20:42 Glucose (Fingerstick) 336 mg/dL (70-99) 180 mg/dL (70-99) Laboratory Tests Test 08/27/20 09:30 08/27/20 10:00 08/27/20 15:00 08/27/20 16:25 Urine Collection Type Unknown Urine Color Yellow Urine Clarity Clear Urine pH 5.5 (<5.0-8.0) Urine Specific [place] >=1.030 (1.000-1.030) Urine Protein Negative mg/dL (NEG-TRACE) Urine Glucose (UA) >=1000 mg/dL (NEG) Urine Ketones (Stick) Negative mg/dL (NEG) Urine Blood Negative (NEG) Urine Nitrite Negative (NEG) Urine Bilirubin Negative (NEG) Urine Urobilinogen Dipstick 0.2 mg/dL (0.2 mg/dL) Urine Leukocyte Esterase Negative (NEG) Urine RBC 0 /HPF (0-2) Urine WBC Occ /HPF (0-4) Urine Squamous Epithelial Cells Occ /LPF Urine Bacteria 0 /HPF (0-FEW) White Blood Count 8.4 x10^3/uL (4.0-11.0) Red Blood Count 5.18 x10^6/uL (4.30-5.70) Hemoglobin 14.5 g/dL (13.0-17.5) Hematocrit 43.4 % (39.0-53.0) Mean Corpuscular Volume 84 fL (79-100) Mean Corpuscular Hemoglobin 28 pg (25-35) Mean Corpuscular Hemoglobin Concent 34 g/dL (31-37) Red Cell Distribution Width 13.2 % (11.5-14.5) Platelet Count 207 x10^3/uL (140-400) Neutrophils (%) (Auto) 68 % (31-73) Lymphocytes (%) (Auto) 22 % (24-48) Monocytes (%) (Auto) 7 % (0-9) Eosinophils (%) (Auto) 2 % (0-3) Basophils (%) (Auto) 1 % (0-3) Neutrophils # (Auto) 5.7 x10^3/uL (1.8-7.7) Lymphocytes # (Auto) 1.8 x10^3/uL (1.0-4.8) Monocytes # (Auto) 0.6 x10^3/uL (0.0-1.1) Eosinophils # (Auto) 0.2 x10^3/uL (0.0-0.7) Basophils # (Auto) 0.1 x10^3/uL (0.0-0.2) Sodium Level 127 mmol/L (136-145) Potassium Level 4.9 mmol/L (3.5-5.1) Chloride Level 91 mmol/L (98-107) Carbon Dioxide Level 25 mmol/L (21-32) Anion Gap 11 (6-14) Blood Urea Nitrogen 22 mg/dL (8-26) Creatinine 1.6 mg/dL (0.7-1.3) Estimated GFR (Cockcroft-Gault) 53.6 BUN/Creatinine Ratio 14 (6-20) Glucose Level 737 mg/dL (70-99) Lactic Acid Level 1.5 mmol/L (0.4-2.0) Calcium Level 9.3 mg/dL (8.5-10.1) Magnesium Level 2.4 mg/dL (1.8-2.4) Total Bilirubin 0.9 mg/dL (0.2-1.0) Aspartate Amino Transf (AST/SGOT) 20 U/L (15-37) Alanine Aminotransferase (ALT/SGPT) 38 U/L (16-63) Alkaline Phosphatase 171 U/L (46-116) Creatine Kinase 137 U/L (39-308) Creatine Kinase MB (Mass) < 0.5 ng/mL (0.0-3.6) Creatine Kinase MB Relative Index % (0-4) Troponin I Quantitative < 0.017 ng/mL (0.000-0.055) < 0.017 ng/mL (0.000-0.055) Total Protein 8.3 g/dL (6.4-8.2) Albumin 3.6 g/dL (3.4-5.0) Albumin/Globulin Ratio 0.8 (1.0-1.7) Triglycerides Level 180 mg/dL (0-150) Cholesterol Level 158 mg/dL (0-200) LDL Cholesterol, Calculated 83 mg/dL (0-100) VLDL Cholesterol, Calculated 36 mg/dL (0-40) Non-HDL Cholesterol Calculated 119 mg/dL (0-129) HDL Cholesterol 39 mg/dL (40-60) Cholesterol/HDL Ratio 4.1 Acetone Level Neg (NEG) Glucose (Fingerstick) 530 mg/dL (70-99) Test 08/27/20 17:27 08/27/20 20:42 Glucose (Fingerstick) 336 mg/dL (70-99) 180 mg/dL (70-99) Medications Current Medications Sodium Chloride 1,000 ml @ 1,000 mls/hr 1X ONCE IV Last administered on 08/27/20at 10:00; Start 08/27/20 at 10:00; Stop 08/27/20 at 10:59; Status DC Insulin Human Regular (HumuLIN R VIAL) 10 unit 1X ONCE SQ Last administered on 08/27/20at 11:17; Start 08/27/20 at 11:00; Stop 08/27/20 at 11:01; Status DC Sodium Chloride 1,000 ml @ 1,000 mls/hr 1X ONCE IV Last administered on 08/27/20at 11:15; Start 08/27/20 at 11:00; Stop 08/27/20 at 11:59; Status DC Ondansetron HCl (Zofran) 4 mg PRN Q8HRS PRN IV NAUSEA/VOMITING; Start 08/27/20 at 11:15; Stop 08/28/20 at 11:14 Insulin Human Lispro (HumaLOG) 0-5 UNITS TIDWMEALS SQ Last administered on 08/27/20at 17:44; Start 08/27/20 at 12:00 Dextrose (Dextrose 50%-Water Syringe) 12.5 gm PRN Q15MIN PRN IV SEE COMMENTS; Start 08/27/20 at 11:15 Sodium Chloride 1,000 ml @ 125 mls/hr 1X ONCE IV Last administered on 08/27/20at 12:22; Start 08/27/20 at 11:15; Stop 08/27/20 at 19:14; Status DC Orphenadrine Citrate (Norflex) 60 mg 1X ONCE IV ; Start 08/27/20 at 11:45; Stop 08/27/20 at 11:46; Status DC Fentanyl Citrate (Fentanyl 2ml Vial) 50 mcg PRN Q2HR PRN IVP PAIN Last administered on 08/27/20at 12:23; Start 08/27/20 at 11:45; Stop 08/28/20 at 11:44 Sodium Chloride 1,000 ml @ 100 mls/hr Q10H IV Last administered on 08/27/20at 21:42; Start 08/27/20 at 12:00 Ondansetron HCl (Zofran) 4 mg PRN Q4HRS PRN IV NAUSEA/VOMITING; Start 08/27/20 at 12:00 Zolpidem Tartrate (Ambien) 5 mg PRN QHS PRN PO INSOMNIA; Start 08/27/20 at 12:00 Acetaminophen (Tylenol) 650 mg PRN Q4HRS PRN PO TEMP OVER 100.4F OR MILD PAIN; Start 08/27/20 at 12:00 Docusate Sodium (Colace) 100 mg PRN BID PRN PO HARD STOOLS; Start 08/27/20 at 12:00 Albuterol/ Ipratropium (Duoneb) 3 ml Q4H NEB ; Start 08/27/20 at 12:00; Stop 08/27/20 at 12:25; Status DC Guaifenesin (Robitussin) 200 mg PRN Q4HRS PRN PO COUGH; Start 08/27/20 at 12:00 Lorazepam (Ativan) 0.5 mg PRN Q4HRS PRN PO ANXIETY / AGITATION; Start 08/27/20 at 12:00 Enoxaparin Sodium (Lovenox 40mg Syringe) 40 mg Q24H SQ ; Start 08/27/20 at 12:00; Stop 08/27/20 at 17:23; Status DC Dextrose (Dextrose 50%-Water Syringe) 12.5 gm PRN Q15MIN PRN IV SEE COMMENTS; Start 08/27/20 at 12:00; Stop 08/27/20 at 12:26; Status DC Insulin Glargine (Lantus Syringe) 12 unit BID SQ Last administered on 08/27/20at 21:45; Start 08/27/20 at 12:00 Insulin Human Lispro (HumaLOG) 8 units TIDAC SQ Last administered on 08/27/20at 17:46; Start 08/27/20 at 16:30 Albuterol Sulfate (Ventolin Neb Soln) 2.5 mg PRN Q4HRS PRN NEB SHORTNESS OF BREATH; Start 08/27/20 at 12:30 Enoxaparin Sodium (Lovenox 40mg Syringe) 40 mg Q24H SQ Last administered on 08/27/20at 21:41; Start 08/27/20 at 21:00 Active Scripts Active Valium (Diazepam) 5 Mg Tablet 5 Mg PO TID Ibuprofen 600 Mg Tablet 600 Mg PO PRN Q6HRS PRN take with food or milk Flomax (Tamsulosin Hcl) 0.4 Mg Cap.er.24h 0.8 Mg PO DAILY Carvedilol (Carvedilol) 12.5 Mg Tablet 12.5 Mg PO BIDWMEALS Atorvastatin Calcium 10 Mg Tablet 10 Mg PO QHS Aspirin 325 Mg Tablet 325 Mg PO [id number] Amlodipine Besylate 10 Mg Tablet 10 Mg PO DAILY Reported Losartan Potassium 100 Mg Tablet 100 Tab PO DAILY08 Meloxicam 7.5 Mg Tablet 7.5 Mg PO DAILY Metformin Hcl 500 Mg Tablet 500 Mg PO BIDWMEALS Vitals/I & O Vital Sign - Last 24 Hours 08/27/20 08/27/20 08/27/20 08/27/20 09:25 10:42 16:30 17:24 Temp 98.1 97.8 98.1 97.8 Pulse 89 84 91 Resp 20 18 18 B/P (MAP) 141/84 (103) 145/85 (105) Pulse Ox 96 96 96 O2 Delivery Room Air Room Air Room Air 08/27/20 08/27/20 08/27/20 08/27/20 17:45 19:00 20:02 23:00 Temp 98.3 98.4 98.3 98.4 Pulse 87 89 Resp 18 18 B/P (MAP) 126/ 125/66 (85) Pulse Ox 97 96 O2 Delivery Room Air Room Air Room Air Room Air 08/28/20 03:11 Temp 98.1 98.1 Pulse 82 Resp 18 B/P (MAP) 131/71 (91) Pulse Ox 97 O2 Delivery Room Air Intake and Output 1/9/21 1/9/21 1/10/21 15:00 23:00 07:00 Intake Total 1000 ml Balance 1000 ml Justicifation of Admission Dx: Justifications for Admission: Justification of Admission Dx: Yes Diabetic Urgency: Diabetic Urgency CHRISTINE HOWARD MD Aug 28, 2020 07:39
[2020-08-28] MEDS: IV NORMAL SALINE 1000ML BAG 1,000 ML IV SCH ×3 (08:00→21:23)
[2020-08-28] MEDS: INSULIN LISPRO 300 UNITS/3 ML VIAL. SQ SCH ×6 (08:30→17:26)
[2020-08-28] MEDS: LISINOPRIL 5 MG TABLET. PO SCH (10:44)
[2020-08-28] MEDS: INSULIN GLARGINE SYRINGE. SQ SCH ×2 (10:52→21:21)
[2020-08-28 11:00] VITALS: BP 139/88
--- NOTE | 2020-08-28 11:47 | EKG ---
[facility] [address] [place] [address] Test Date: 2020-08-27 Test Time: 10:37:49 Pat Name: JENI STARK Department: Room: Gender: M Alteration Hand: : 1960 Requested By: CHRISTI ALMANZA Order Number: [id number] Reading MD: Measurements Intervals [place] Rate: 78 P: 46 ND: 160 QRS: -17 QRSD: 76 T: 7 QT: 358 QTc: 411 Interpretive Statements SINUS RHYTHM LEFTWARD AXIS OTHERWISE NORMAL ECG RI6.01 No previous ECG available for comparison
[2020-08-28 13:18] LABS: HEMOGLOBIN A1C 12.3 % (4.8-5.6)
[2020-08-28 15:00] VITALS: BP 140/77
[2020-08-28 19:00] VITALS: BP 149/78
[2020-08-28] MEDS: ENOXAPARIN 40 MG/0.4 ML SYRINGE. SQ SCH (21:22)
[2020-08-28 23:00] VITALS: BP 132/77
[2020-08-29 03:06] VITALS: BP 141/86
[2020-08-29 07:00] VITALS: BP 154/82
[2020-08-29] MEDS: LISINOPRIL 5 MG TABLET. PO SCH (08:18)
[2020-08-29] MEDS: INSULIN LISPRO 300 UNITS/3 ML VIAL. SQ SCH ×6 (08:24→17:12)
[2020-08-29] MEDS: INSULIN GLARGINE SYRINGE. SQ SCH ×2 (09:33→21:01)
[2020-08-29 11:00] VITALS: BP 131/76
--- NOTE | 2020-08-29 11:21 | NUR ---
SW following. Discussed with RN, pt from home with girlfriend, room air, cardiac diet. RN advised no SW needs at this time. SW will continue to follow.
[2020-08-29] MEDS: IV NORMAL SALINE 1000ML BAG 1,000 ML IV SCH ×2 (14:00→23:37)
[2020-08-29 15:00] VITALS: BP 164/90
--- NOTE | 2020-08-29 16:55 | PDOC ---
[employer] PROGRESS NOTE Date of Service DOS: DATE: 08/29/20 TIME: 16:53 Chief Complaint Chief Complaint Assessment/Plan New diagnosis of diabetes Uncontrolled diabetes type 2 Hyperglycemia History of dyslipidemia Pseudohyponatremia History of essential hypertension Plan ADA diet Start insulin with Lantus twice a day and lispro with meals Follow response to therapy Lipid panel with slight elevation of triglycerides and low HDL. Patient could probably have a trial of 3 months of lifestyle modification Follow results of hemoglobin A1c Diabetic education Hopefully discharge in next 24 to 48 hours continues to do well DVT prophylaxis with Lovenox History of Present Illness History of Present Illness History of Present Illness Patient is a 59-year-old gentleman with past medical history of essential hypertension dyslipidemia and he was told to be prediabetic who has been weaker than usual, like lightheaded. The patient denies any polyuria polyphagia polydipsia prior to his presentation to the ER today. He actually says that his vision has gotten better over the last week or so. Nevertheless patient has been feeling nauseous has not been able to eat as much as he usually does no changes in his diet has been reported no recent infections no upper respiratory tract infections no headaches no fever no chills no body aches. He has not been exposed to people infected with coronavirus. He was found to have 700 glycemia in the emergency department reason why we were asked to admit the patient to stabilize his new diagnosis of diabetes. He does not take medications on a regular basis. He is in no acute distress no chest pain palpitations no shortness of breath no paroxysmal internal dyspnea no nausea vomiting or diarrhea has been reported. Patient is eating at the time of my visit and seems to be in no acute distress. Plan of care has been explained detail all of his concerns addressed to the best of my abilities 08/28: No acute events reported overnight, case discussed with nursing staff patient in no acute distress no complaints during my visit we are still waiting for hemoglobin A1c to be reported this will determine whether he can be on oral hypoglycemias or if he will need insulin 08/29/2020 No acute events overnight. Patient seen and examined bedside. No complaints voiced at this time and feels better after his sugars have been controlled. Patient has never been on insulin and we are waiting for A1c to determine whether he should be discharged with oral hypoglycemias or insulin. Vitals/I&O Vitals/I&O: Vital Signs Date Time Temp Pulse Resp B/P (MAP) Pulse Ox O2 Delivery O2 Flow Rate FiO2 08/29/20 15:00 98.2 87 18 164/90 (114) 97 Room Air 98.2 I & O 08/28/20 08/28/20 08/29/20 15:00 23:00 07:00 Intake Total 580 ml 360 ml Output Total 500 ml 500 ml Balance 80 ml 360 ml -500 ml Physical Exam Lungs: Clear Labs Labs: Laboratory Tests Test 08/28/20 17:06 08/28/20 20:34 08/29/20 07:23 08/29/20 11:42 Glucose (Fingerstick) 172 mg/dL (70-99) 214 mg/dL (70-99) 234 mg/dL (70-99) 205 mg/dL (70-99) Test 08/29/20 16:37 Glucose (Fingerstick) 315 mg/dL (70-99) Assessment and Plan Assessmemt and Plan Problems Medical Problems: (1) Acute renal insufficiency Status: Acute (2) Generalized weakness Status: Acute (3) Hyperglycemia Status: Acute Comment Review of Relevant I have reviewed the following items michelle (where applicable) has been applied. Justifications for Admission Other Justification uncontrolled diabetes SHANICE TAYLOR MD Aug 29, 2020 16:55
[2020-08-29 19:00] VITALS: BP 149/78
[2020-08-29] MEDS: ENOXAPARIN 40 MG/0.4 ML SYRINGE. SQ SCH (20:57)
[2020-08-29 23:00] VITALS: BP 161/77
[2020-08-30 03:00] VITALS: BP 129/69
[2020-08-30 07:00] VITALS: BP 140/89
[2020-08-30 07:08] LABS: BASO # 0.1 x10^3/uL (0.0-0.2); BASO % 1 % (0-3); EOS # 0.4 x10^3/uL (0.0-0.7); EOS % 4 % (0-3); HEMATOCRIT 35.9 % (39.0-53.0); LYMPH % 36 % (24-48); MEAN CORPUSCULAR HEMOGLOBIN 28 pg (25-35); MEAN CORPUSCULAR HGB CONC 34 g/dL (31-37); MEAN CORPUSCULAR VOLUME 83 fL (79-100); MONO # 0.8 x10^3/uL (0.0-1.1); MONO % 10 % (0-9); NEUT # 4.2 x10^3/uL (1.8-7.7); NEUT % 49 % (31-73); PLATELET COUNT 172 x10^3/uL (140-400); RED BLOOD COUNT 4.32 x10^6/uL (4.30-5.70); RED CELL DISTRIBUTION WIDTH 13.1 % (11.5-14.5); WHITE BLOOD COUNT 8.4 x10^3/uL (4.0-11.0)
[2020-08-30 07:34] LABS: CALCIUM 8.2 mg/dL (8.5-10.1); GFR 92.2; MAGNESIUM 1.8 mg/dL (1.8-2.4); PHOSPHORUS 3.6 mg/dL (2.6-4.7); POTASSIUM 3.7 mmol/L (3.5-5.1)
[2020-08-30] MEDS: LISINOPRIL 5 MG TABLET. PO SCH (08:55)
[2020-08-30] MEDS: INSULIN GLARGINE SYRINGE. SQ SCH (09:05)
[2020-08-30] MEDS: INSULIN LISPRO 300 UNITS/3 ML VIAL. SQ SCH ×4 (09:05→12:32)
[2020-08-30] MEDS: IV NORMAL SALINE 1000ML BAG 1,000 ML IV SCH (10:00)
--- NOTE | 2020-08-30 10:23 | NUR ---
SW following. Discussed with RN, pt wanting to discharge home today. Blood sugars high today. RN unsure if physician will release pt today. RN advised no SW needs. SW will continue to follow.
[2020-08-30 11:00] VITALS: BP 143/80
[2020-08-30] MEDS ORDERED: SITA100T PO (11:43)
[2020-08-30] MEDS ORDERED: CANA300T PO (11:46)
[2020-08-30 15:00] VITALS: BP 172/83
--- NOTE | 2020-08-30 16:45 | NUR ---
patient discharged home. meds and follow up reviewed. scripts sent to pharmacy. called in scripts for glucometer, strips, and lancets. pt stable upon dc.
--- NOTE | 2020-09-01 16:07 | PDOC3 ---
[facility]-Discharge Summary Date of Admission: Date of Admission: Aug 27, 2020 Date of Discharge: Date of Discharge: Aug 30, 2020 Discharge Diagnosis: Discharge Diagnosis: Uncontrolled diabetes type 2 Hyperglycemia History of dyslipidemia Pseudohyponatremia History of essential hypertension Hospital Course: Hospital Course: 59-year-old gentleman with past medical history of essential hypertension dyslipidemia and he was told to be prediabetic who has been weaker than usual, like lightheaded. The patient denies any polyuria polyphagia polydipsia prior to his presentation to the ER today. He actually says that his vision has gotten better over the last week or so. Nevertheless patient has been feeling nauseous has not been able to eat as much as he usually does no changes in his diet has been reported no recent infections no upper respiratory tract infections no headaches no fever no chills no body aches. He has not been exposed to people infected with coronavirus. He was found to have 700 glycemia in the emergency department reason why we were asked to admit the patient to stabilize his new diagnosis of diabetes. He does not take medications on a regular basis. He is in no acute distress no chest pain palpitations no shortness of breath no paroxysmal internal dyspnea no nausea vomiting or diarrhea has been reported. Patient is eating at the time of my visit and seems to be in no acute distress. Plan of care has been explained detail all of his concerns addressed to the best of my abilities 08/28: No acute events reported overnight, case discussed with nursing staff patient in no acute distress no complaints during my visit we are still waiting for hemoglobin A1c to be reported this will determine whether he can be on oral hypoglycemias or if he will need insulin 08/29/2020 No acute events overnight. Patient seen and examined bedside. No complaints voiced at this time and feels better after his sugars have been controlled. Patient has never been on insulin and we are waiting for A1c to determine whether he should be discharged with oral hypoglycemias or insulin. Patient had HbA1c of 12%. He will need insulin but he wants to try with oral hypoglycemics. He will be discharged with Januvia and Farxiga or Invokana. He is unable to tolerate metformin. The rest of his hospital course was uneventful. Activity: Activity: Resume previous activity Diet: Diet: Consistent Carbohydrate Medications: Home Meds Active Scripts Canagliflozin (INVOKANA) 300 Mg Tablet, 1 TAB PO DAILY for diabetes for 90 Days, #90 TAB 0 Refills Prov:SHANICE TAYLOR MD 08/30/20 Sitagliptin Phosphate (JANUVIA) 100 Mg Tablet, 1 TAB PO DAILY for diabetes for 90 Days, #90 TAB 1 Refill Prov:SHANICE TAYLOR MD 08/30/20 Diazepam (VALIUM) 5 Mg Tablet, 5 MG PO TID for SPASM, #15 TAB Prov:CINDA ERNANDEZ MD 06/30/20 Tamsulosin Hcl (FLOMAX) 0.4 Mg Cap.er.24h, 0.8 MG PO DAILY, #60 TAB-CAP Prov:TIMMY MARTINS MD 11/20/16 Carvedilol (CARVEDILOL ) 12.5 Mg Tablet, 12.5 MG PO BIDWMEALS, #60 TAB-CAP Prov:TIMMY MARTINS MD 11/20/16 Atorvastatin Calcium (ATORVASTATIN CALCIUM) 10 Mg Tablet, 10 MG PO QHS, #30 TAB- CAP Prov:TIMMY MARTINS MD 11/20/16 Aspirin (ASPIRIN) 325 Mg Tablet, 325 MG PO DAILYWBKFT, #30 TAB-CAP Prov:TIMMY MARTINS MD 11/20/16 Amlodipine Besylate (AMLODIPINE BESYLATE) 10 Mg Tablet, 10 MG PO DAILY, #30 TAB- CAP Prov:TIMMY MARTINS MD 11/20/16 Reported Medications Losartan Potassium (LOSARTAN POTASSIUM) 100 Mg Tablet, 100 TAB PO DAILY08, #30 11/18/16 Meloxicam (MELOXICAM) 7.5 Mg Tablet, 7.5 MG PO DAILY, TAB 11/18/16 Discontinued Reported Medications Metformin Hcl (METFORMIN HCL) 500 Mg Tablet, 500 MG PO BIDWMEALS for ANTI- DIABETIC, TAB 0 Refills 11/18/16 Discontinued Scripts Ibuprofen (IBUPROFEN) 600 Mg Tablet, 600 MG PO PRN Q6HRS PRN for PAIN, #20 TAB take with food or milk Prov:CINDA ERNANDEZ MD 06/30/20 Scheduled Amlodipine Besylate (Amlodipine Besylate), 10 MG PO DAILY Aspirin (Aspirin), 325 MG PO DAILYWBKFT Atorvastatin Calcium (Atorvastatin Calcium), 10 MG PO QHS Canagliflozin (Invokana), 1 TAB PO DAILY Carvedilol (Carvedilol ), 12.5 MG PO BIDWMEALS Diazepam (Valium), 5 MG PO TID Losartan Potassium (Losartan Potassium), 100 TAB PO DAILY08, (Reported) Meloxicam (Meloxicam), 7.5 MG PO DAILY, (Reported) Sitagliptin Phosphate (Januvia), 1 TAB PO DAILY Tamsulosin Hcl (Flomax), 0.8 MG PO DAILY Discontinued Medications Ibuprofen (Ibuprofen), 600 MG PO PRN Q6HRS PRN for PAIN Metformin Hcl (Metformin Hcl), 500 MG PO BIDWMEALS, (Reported) Total Time: Total Time: Total time spent was 60 minutes in preparing scripts, discharge planning with SW and RN, and preparing this discharge summary. Patient seen and examined on day of discharge. Justicifation of Admission Dx: Justifications for Admission: Justification of Admission Dx: Yes SHANICE TAYLOR MD Sep 01, 2020 16:06
== END 2020-08-30 16:47 | disposition home or self-care (01) | DRG 639 ==
LOC: ER 08:54 → ED HOLD 11:01 → 5 NORTH 17:13
PROVIDERS: ADMIT Internal Medicine; ATTEND Internal Medicine
DX: E11.65 Type 2 diabetes mellitus with hyperglycemia (principal); E78.00 Pure hypercholesterolemia, unspecified; E78.5 Hyperlipidemia, unspecified; I10 Essential (primary) hypertension; N28.9 Disorder of kidney and ureter, unspecified; Z79.4 Long term (current) use of insulin
CPT/HCPCS: 36415; 70450; 71045; 80048; 80053; 80061; 81001; 82010; 82553; 82962; 83036; 83605; 83735; 83930; 84100; 84484; 85025; 93005; 96361; 96372; 96374; 99285; J1650; J1815; J3010; J7030; G0378

== ENCOUNTER 2020-09-04 19:32 | Emergency (ER) | payer BC ==
[~2020-09-04] VITALS: Ht 172.7 cm; Wt 93.2 kg
[~2020-09-04 19:32] MED LIST changes: +CANA300T PO; +SITA100T PO
[2020-09-04] MEDS ORDERED: IV NORMAL SALINE 1000ML BAG 1,000 ML IV ONE (20:00)
--- NOTE | 2020-09-04 20:05 | PHYS DOC ---
Past Medical History Past Medical History: Diabetes-Type II, High Cholesterol, Hypertension Additional Past Medical Histor: "prediabetes" (AFSANEH BANGURA APRN) Past Surgical History: Other Additional Past Surgical Histo: L knee, R shoulder (AFSANEH BANGURA APRN) Smoking Status: Never Smoker Alcohol Use: Occasionally Drug Use: None (AFSANEH BANGURA APRN) General Adult EDM: Chief Complaint: BLOOD SUGAR PROBLEM HPI: HPI: Patient is a 59 year old male with history of high cholesterol, hypertension, diabetes type 2 who presents to the ED today complaining of hyperglycemia. Patient states he took his blood glucose today and the machine read high. He states he has had trouble controlling his blood sugars for the last 2 weeks. He states he got discharged from the hospital 6 days ago after being admitted for hyperglycemia. He states he was sent home with Mustaphacathleen which he did not fill the prescription until Saturday due to insurance issues. He reports having mac & cheese and barbecue beans this evening, checked his blood sugar and it was high. Denies any nausea vomiting. Denies any chest pain or shortness of breath. (AFSANEH BANGURA APRN) Review of Systems: Review of Systems: Constitutional: Denies fever or chills. [] Eyes: Denies change in visual acuity. [] HENT: Denies nasal congestion or sore throat. [] Respiratory: Denies cough or shortness of breath. [] Cardiovascular: Denies chest pain or edema. [] GI: Denies abdominal pain, nausea, vomiting, bloody stools or diarrhea. [] : Denies dysuria. [] Musculoskeletal: Denies back pain or joint pain. [] Integument: Denies rash. [] Neurologic: Denies headache, focal weakness or sensory changes. [] Endocrine: Reports hypoglycemia Psychiatric: Denies depression or anxiety. [] (AFSANEH BANGURA APRN) Heart Score: Risk Factors: Risk Factors: DM, Current or recent (<one month) smoker, HTN, HLP, family history of CAD, obesity. Risk Scores: Score 0 - 3: 2.5% MACE over next 6 weeks - Discharge Home Score 4 - 6: 20.3% MACE over next 6 weeks - Admit for Clinical Observation Score 7 - 10: 72.7% MACE over next 6 weeks - Early Invasive Strategies (AFSANEH BANGURA APRN) Current Medications: Current Medications Medications (Trade) Dose Ordered Sig/[place] Start Time Stop Time Status Last Admin Dose Admin Sodium Chloride 1,000 ml @ 1,000 mls/hr 1X ONCE 09/04/20 20:00 09/04/20 20:59 UNV (AFSANEH BANGURA APRN) Allergies: Allergies: Allergies Coded Allergies Type Severity Reaction Last Updated Verified No Known Drug Allergies 10/07/15 No (AFSANEH BANGURA APRN) Physical Exam: PE: Constitutional: Well developed, well nourished, no acute distress, non-toxic appearance. [] HENT: Normocephalic, atraumatic, bilateral external ears normal, oropharynx moist, no oral exudates, nose normal. [] Eyes: PERRLA, EOMI, conjunctiva normal, no discharge. [] Neck: Normal range of motion, no tenderness, supple, no stridor. [] Cardiovascular:Heart rate regular rhythm, no murmur [] Lungs & Thorax: Bilateral breath sounds clear to auscultation [] Abdomen: Bowel sounds normal, soft, no tenderness, no masses, no pulsatile masses. [] Skin: Warm, dry, no erythema, no rash. [] Back: No tenderness, no CVA tenderness. [] Extremities: No tenderness, no cyanosis, no clubbing, ROM intact, no edema. [] Neurologic: Alert and oriented X 3, normal motor function, normal sensory function, no focal deficits noted. [] Psychologic: Affect normal, judgement normal, mood normal. [] (AFSANEH BANGURA APRN) Current Patient Data: Labs: Laboratory Tests Test 09/04/20 19:45 Glucose (Fingerstick) 479 mg/dL (70-99) H (AFSANEH BANGURA APRN) EKG: EKG: [] (AFSANEH BANGURA APRN) Radiology/Procedures: Radiology/Procedures: [] (AFSANEH BANGURA APRN) Course & Med Decision Making: Course & Med Decision Making Pertinent Labs and Imaging studies reviewed. (See chart for details) This is a 59-year-old male patient with history of diabetes type 2 who presents today complaining of hyperglycemia. His glucose read at home was high. He was discharged from the hospital 6 days ago with Januvia which he did not fill until day before yesterday. Today had mac & cheese and barbecue beans, blood glucose was high with the home glucometer. CBC no acute findings, CMP with glucose of 446, anion gap is normal. Creatinine is 1.7 but this is around patient's baseline when he was admitted with creatinine of 1.6. Urine has no ketones. Patient was given 1 L of IV fluid and insulin 10 units. Glucose 365 prior to d/c I spoke to patient at length about diabetes especially the importance of observing the diet part of it and using medicines as ordered. He was discharged home and follow-up with the PCP in the course of this week (AFSANEH BANGURA APRN) Dragon Disclaimer: Dragon Disclaimer: This electronic medical record was generated, in whole or in part, using a voice recognition dictation system. (AFSANEH BANGURA APRN) Departure Departure Impression: Primary Impression: Hyperglycemia Disposition: 01 DC HOME SELF CARE/HOMELESS Condition: STABLE Referrals: LA[facility] ALON[facility] MD (PCP) Follow-up in the course of this week Patient Instructions: 1800 Calorie Diet for Diabetes Meal Planning, Hyperglycemia Additional Instructions: You were evaluated in the emergency room for high blood glucose. Please ensure you are following a diabetic diet. Try and read the discharge information on diabetes diet. Use your Januvia as prescribed. Follow-up with your doctor in the course of this week Attending Signature Attending Signature I have reviewed the PA/[employer] INSPECTOR's note and plan of care. I was available for consultation as needed during the patient's visit in the emergency department. I agree with the clinical impression, plan, and disposition. (CHRISTI ALMANZA DO) AFSANEH BANGURA APRN Sep 04, 2020 20:05 CHRISTI ALMANZA DO Sep 05, 2020 04:22
[2020-09-04 20:06] LABS: BILIRUBIN,URINE NEGATIVE (NEG); CLARITY,URINE CLEAR; COLOR,URINE YELLOW; NITRITE,URINE NEGATIVE (NEG); PH,URINE 5.5 (<5.0-8.0); PROTEIN,URINE NEGATIVE (NEG-TRACE); UROBILINOGEN,URINE 0.2 mg/dL (0.2 mg/dL)
[2020-09-04 20:13] LABS: BARBITURATES NEG (NEG); BENZODIAZEPINES NEG (NEG); CANNABINOIDS NEG (NEG); COCAINE NEG (NEG); METHADONE NEG (NEG); OPIATES NEG (NEG); PHENCYCLIDINE NEG (NEG)
[2020-09-04 20:13] LABS: BASO # 0.1 x10^3/uL (0.0-0.2); BASO % 1 % (0-3); EOS # 0.2 x10^3/uL (0.0-0.7); EOS % 2 % (0-3); HEMATOCRIT 39.3 % (39.0-53.0); LYMPH # 2.6 x10^3/uL (1.0-4.8); LYMPH % 27 % (24-48); MEAN CORPUSCULAR HEMOGLOBIN 28 pg (25-35); MEAN CORPUSCULAR HGB CONC 33 g/dL (31-37); MEAN CORPUSCULAR VOLUME 84 fL (79-100); MONO # 0.8 x10^3/uL (0.0-1.1); MONO % 9 % (0-9); NEUT # 5.8 x10^3/uL (1.8-7.7); NEUT % 60 % (31-73); PLATELET COUNT 233 x10^3/uL (140-400); RED BLOOD COUNT 4.69 x10^6/uL (4.30-5.70); RED CELL DISTRIBUTION WIDTH 13.3 % (11.5-14.5); WHITE BLOOD COUNT 9.6 x10^3/uL (4.0-11.0)
[2020-09-04 20:17] LABS: AMPHETAMINE/METHAMPHETAMINE NEG (NEG)
[2020-09-04 20:21] LABS: AMORPHOUS SEDIMENT,UR PRESENT /HPF; BACTERIA,URINE 0 /HPF (0-FEW); RBC,URINE 0 /HPF (0-2); WBC,URINE 0 /HPF (0-4)
[2020-09-04 20:23] LABS: CALCIUM 9.3 mg/dL (8.5-10.1); CREATININE 1.7 mg/dL (0.7-1.3); POTASSIUM 4.3 mmol/L (3.5-5.1)
[2020-09-04 20:29] LABS: ALBUMIN 3.5 g/dL (3.4-5.0); ALBUMIN/GLOBULIN RATIO 0.8 (1.0-1.7); TOTAL BILIRUBIN 0.4 mg/dL (0.2-1.0); TOTAL PROTEIN 7.9 g/dL (6.4-8.2)
[2020-09-04 21:09] VITALS: BP 144/78
== END 2020-09-04 21:42 | disposition home or self-care (01) ==
LOC: ER 19:32
DX: E11.65 Type 2 diabetes mellitus with hyperglycemia (principal); E78.00 Pure hypercholesterolemia, unspecified; I10 Essential (primary) hypertension; Z98.890 Other specified postprocedural states
CPT/HCPCS: 36415; 80053; 80307; 81001; 82010; 82962; 85025; 96360; 99283; G0480; J7030

== ENCOUNTER 2020-09-14 22:07 | Inpatient (IN) | payer BC ==
[~2020-09-14] VITALS: Ht 172.7 cm; Wt 96.8 kg
[2020-09-14 22:35] LABS: BILIRUBIN,URINE NEGATIVE (NEG); CLARITY,URINE CLEAR; NITRITE,URINE NEGATIVE (NEG); PH,URINE 5.5 (<5.0-8.0); PROTEIN,URINE NEGATIVE (NEG-TRACE); UROBILINOGEN,URINE 0.2 mg/dL (0.2 mg/dL)
[2020-09-14 22:41] LABS: BASO # 0.1 x10^3/uL (0.0-0.2); BASO % 1 % (0-3); EOS # 0.2 x10^3/uL (0.0-0.7); EOS % 2 % (0-3); HEMATOCRIT 40.5 % (39.0-53.0); HEMOGLOBIN 13.5 g/dL (13.0-17.5); LYMPH # 3.3 x10^3/uL (1.0-4.8); LYMPH % 33 % (24-48); MEAN CORPUSCULAR HEMOGLOBIN 28 pg (25-35); MEAN CORPUSCULAR HGB CONC 33 g/dL (31-37); MEAN CORPUSCULAR VOLUME 86 fL (79-100); MONO # 0.8 x10^3/uL (0.0-1.1); MONO % 8 % (0-9); NEUT # 5.6 x10^3/uL (1.8-7.7); NEUT % 56 % (31-73); PLATELET COUNT 211 x10^3/uL (140-400); RED BLOOD COUNT 4.74 x10^6/uL (4.30-5.70); RED CELL DISTRIBUTION WIDTH 13.8 % (11.5-14.5); WHITE BLOOD COUNT 9.9 x10^3/uL (4.0-11.0)
[2020-09-14 22:42] LABS: COLOR,URINE STRAW
[2020-09-14 22:43] LABS: BACTERIA,URINE 0 /HPF (0-FEW); RBC,URINE 0 /HPF (0-2); WBC,URINE 0 /HPF (0-4)
[2020-09-14 23:00] LABS: ALBUMIN 3.6 g/dL (3.4-5.0); ALBUMIN/GLOBULIN RATIO 0.8 (1.0-1.7); CALCIUM 9.3 mg/dL (8.5-10.1); CREATININE 1.6 mg/dL (0.7-1.3); GFR 53.6; POTASSIUM 4.9 mmol/L (3.5-5.1); TOTAL BILIRUBIN 0.4 mg/dL (0.2-1.0)
[2020-09-14] MEDS ORDERED: IV NORMAL SALINE 1000ML BAG 1,000 ML IV SCH (23:00)
[2020-09-14] MEDS ORDERED: INSULIN REGULAR 100 UNIT/ML 3ML VIAL. IV ONE (23:00)
--- NOTE | 2020-09-14 23:04 | PHYS DOC ---
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 He states that he was admitted here on August 27 and discharged on August 30 as his blood sugar was 700. This was a new diagnosis for him. Patient was placed on Januvia and Invokana on August 30 when he was discharged. Patient did not to get those medications until about 4 days ago. He states he had a hard time getting them. Patient states he is continued to feel bad. Patient denies headache, dizziness, chest pain, shortness of breath, numbness or tingling, syncope, vision changes, focal weakness, abdominal pain, nausea, vomiting, diarrhea, constipation, cough, fever. He states he took his blood sugar at home and it read high. He denies any pain at this time. Patient has a history of diabetes, high cholesterol, hypertension, left knee and right shoulder surgery. Review of Systems: Review of Systems: Constitutional: Denies fever or chills. [] Eyes: Denies change in visual acuity. [] HENT: Denies nasal congestion or sore throat. + Excessive thirst [] Respiratory: Denies cough or shortness of breath. [] Cardiovascular: Denies chest pain or edema. [] GI: Denies abdominal pain, nausea, vomiting, bloody stools or diarrhea. [] : Denies dysuria. + Frequent urination [] Musculoskeletal: Denies back pain or joint pain. + Generalized weakness [] Integument: Denies rash. [] Neurologic: Denies headache, focal weakness or sensory changes. [] Endocrine: Denies polyuria or polydipsia. [] Lymphatic: Denies swollen glands. [] Psychiatric: Denies depression or anxiety. [] Heart Score: Risk Factors: Risk Factors: DM, Current or recent (<one month) smoker, HTN, HLP, family history of CAD, obesity. Risk Scores: Score 0 - 3: 2.5% MACE over next 6 weeks - Discharge Home Score 4 - 6: 20.3% MACE over next 6 weeks - Admit for Clinical Observation Score 7 - 10: 72.7% MACE over next 6 weeks - Early Invasive Strategies Current Medications: Current Medications Medications (Trade) Dose Ordered Sig/Vernon Start Time Stop Time Status Last Admin Dose Admin Insulin Human Regular (HumuLIN R VIAL) 10 unit 1X ONCE 09/14/20 23:00 09/14/20 23:01 DC Sodium Chloride 1,000 ml @ 1,000 mls/hr Q1H 09/14/20 23:00 09/14/20 23:59 Allergies: Allergies: Allergies Coded Allergies Type Severity Reaction Last Updated Verified No Known Drug Allergies 10/07/15 No Physical Exam: PE: Constitutional: Well developed, well nourished, no acute distress, non-toxic appearance. [] HENT: Normocephalic, atraumatic, bilateral external ears normal, oropharynx moist, no oral exudates, nose normal. [] Eyes: PERRLA, EOMI, conjunctiva normal, no discharge. [] Neck: Normal range of motion, no tenderness, supple, no stridor. [] Cardiovascular:Heart rate regular rhythm, no murmur [] Lungs & Thorax: Bilateral breath sounds clear to auscultation [] Abdomen: Bowel sounds normal, soft, no tenderness, no masses, no pulsatile masses. [] Skin: Warm, dry, no erythema, no rash. [] Back: No tenderness, no CVA tenderness. [] Extremities: No tenderness, no cyanosis, no clubbing, ROM intact, no edema. [] Neurologic: Alert and oriented X 3, normal motor function, normal sensory function, no focal deficits noted. [] Psychologic: Affect normal, judgement normal, mood normal. Normal physical exam [] Current Patient Data: Labs: Laboratory Tests Test 09/14/20 22:25 09/14/20 22:33 Urine Collection Type Void Urine Color Straw Urine Clarity Clear Urine pH 5.5 (<5.0-8.0) Urine Specific [place] >=1.030 (1.000-1.030) Urine Protein Negative mg/dL (NEG-TRACE) Urine Glucose (UA) >=1000 mg/dL (NEG) Urine Ketones (Stick) Negative mg/dL (NEG) Urine Blood Negative (NEG) Urine Nitrite Negative (NEG) Urine Bilirubin Negative (NEG) Urine Urobilinogen Dipstick 0.2 mg/dL (0.2 mg/dL) Urine Leukocyte Esterase Negative (NEG) Urine RBC 0 /HPF (0-2) Urine WBC 0 /HPF (0-4) Urine Squamous Epithelial Cells Occ /LPF Urine Bacteria 0 /HPF (0-FEW) White Blood Count 9.9 x10^3/uL (4.0-11.0) Red Blood Count 4.74 x10^6/uL (4.30-5.70) Hemoglobin 13.5 g/dL (13.0-17.5) Hematocrit 40.5 % (39.0-53.0) Mean Corpuscular Volume 86 fL (79-100) Mean Corpuscular Hemoglobin 28 pg (25-35) Mean Corpuscular Hemoglobin Concent 33 g/dL (31-37) Red Cell Distribution Width 13.8 % (11.5-14.5) Platelet Count 211 x10^3/uL (140-400) Neutrophils (%) (Auto) 56 % (31-73) Lymphocytes (%) (Auto) 33 % (24-48) Monocytes (%) (Auto) 8 % (0-9) Eosinophils (%) (Auto) 2 % (0-3) Basophils (%) (Auto) 1 % (0-3) Neutrophils # (Auto) 5.6 x10^3/uL (1.8-7.7) Lymphocytes # (Auto) 3.3 x10^3/uL (1.0-4.8) Monocytes # (Auto) 0.8 x10^3/uL (0.0-1.1) Eosinophils # (Auto) 0.2 x10^3/uL (0.0-0.7) Basophils # (Auto) 0.1 x10^3/uL (0.0-0.2) Acetone Level Neg (NEG) Laboratory Tests 09/14/20 22:33 Vital Signs: Vital Signs Date Time Temp Pulse Resp B/P (MAP) Pulse Ox O2 Delivery O2 Flow Rate FiO2 09/14/20 22:17 98.0 97 12 156/115 (129) 98 Room Air 98.0 EKG: EK AND READ BY DR PRIDE SINUS RHYTHM AND NO STEMI Radiology/Procedures: Radiology/Procedures: [] Impression: [facility] [address] [place] [address] IMAGING REPORT Signed PATIENT: JENI STARK DACCOUNT: [id number] : 1960 LOCATION: ER AGE: 59 SEX: M EXAM STATUS: REG ER ORD. PHYSICIAN: JUAN ALBERTO KELLEY APRN REASON: weakness PROCEDURE: PORTABLE CHEST 1V Chest AP portable at 2253: Reason for examination: Weakness. Comparison is made to previous study dated 08/27/2020. The heart size is normal. Mediastinum is unremarkable. Lung fisher are clear. No acute bony abnormalities are seen. Impression: No acute cardiopulmonary disease. Electronically signed by: Alissa Dobbins MD (09/14/2020 11:14 PM) [facility] DICTATED and SIGNED BY: ALISSA DOBBINS MD DATE: 09/14/20 [id number] Course & Med Decision Making: Course & Med Decision Making Pertinent Labs and Imaging studies reviewed. (See chart for details) See HPI. Alert and oriented x4. Ambulatory with a steady gait. Skin pink warm and dry. No peripheral edema. Abdomen is soft and nontender. Speaks in full complete sentences. Patient's blood glucose is 698. He is given 10 units of insulin. His acetone is negative. Kidney function remains elevated. Sodium 129. [] Dragon Disclaimer: Dragon Disclaimer: This electronic medical record was generated, in whole or in part, using a voice recognition dictation system. Departure Departure Impression: Primary Impression: Hyperglycemia Disposition: ADMITTED INPT THIS HOSP Admitting Physician: YINA Condition: STABLE Referrals: [facility] MD (PCP) JUAN ALBERTO KELLEY APRN Sep 14, 2020 23:04
--- NOTE | 2020-09-14 23:16 | RAD ---
Chest AP portable at 2253: Reason for examination: Weakness. Comparison is made to previous study dated 08/27/2020. The heart size is normal. Mediastinum is unremarkable. Lung fisher are clear. No acute bony abnormali ties are seen. Impression: No acute cardiopulmonary disease. Electronically signed by: Bren Rae MD (09/14/2020 11:14 PM) DEE
[2020-09-14] MEDS ORDERED: ONDANSETRON PF 4 MG/2 ML VIAL. IV PRN (23:30)
[2020-09-14] MEDS ORDERED: IV NORMAL SALINE 1000ML BAG 1,000 ML IV ONE (23:30)
[2020-09-14] MEDS ORDERED: INSULIN REGULAR VIAL 100 UNIT in IV NORMAL SALINE 100ML 100 ML IV PRN (23:30)
[2020-09-14 23:46] LABS: BASE EXCESS COOX -3 mmol/L (-3-3); HCO3 COOX 22 mmol/L (21-28); METHEMOGLOBIN 0.2 % (0.0-1.9); OXYHEMOGLOBIN 94.4 %; PCO2 COOX 36 mmHg (35-46); PO2 COOX 82 mmHg (65-108); SAT O2 COOX 95 % (92-99)
--- NOTE | 2020-09-15 02:15 | NUR ---
The patient, JENI STARK, 59 y/o, M admitted by MISSY BATES III, DO, was given written information regarding hospital policies, unit procedures and contact persons. Valuables were checked and left with him.
[2020-09-15 03:37] VITALS: BP 125/63
--- NOTE | 2020-09-15 05:23 | EKG ---
[facility] [address] [place] [address] Test Date: 2020-09-14 Test Time: 22:39:37 Pat Name: JENI STARK Department: Room: Gender: M Collet Driller: : 1960 Requested By: JUAN ALBERTO KELLEY Order Number: [id number] Reading MD: Measurements Intervals [place] Rate: 88 P: 34 MO: 162 QRS: -27 QRSD: 72 T: 18 QT: 332 QTc: 405 Interpretive Statements SINUS RHYTHM LEFT ATRIAL ABNORMALITY LEFTWARD AXIS ABNORMAL ECG RI6.02 No previous ECG available for comparison
[2020-09-15 07:00] VITALS: BP_SYST 132; BP_SYST 178; BP_DIAS 62; BP_DIAS 85
[2020-09-15] MEDS ORDERED: DEXTROSE 50% 25 GM / 50ML DISP.SYRIN. IV PRN (08:45)
--- NOTE | 2020-09-15 09:12 | PDOC1 ---
History and Physical Date of Admission Date of Admission DATE: 09/15/20 TIME: 09:12 Identification/Chief Complaint Chief Complaint UNCONTROLLED DIABETES History of Present Illness History of Present Illness 59-year-old gentleman with past medical history of essential hypertension dyslipidemia and he was told HE diabetic who has been weaker than usual, lightheaded. NOTES polyuria polyphagia polydipsia prior to his presentation He actually says that his vision has gotten better over the last week or so. patient has been feeling nauseous has not been able to eat as much as he usually does no changes in his diet has been reported no recent infections no upper respiratory tract infections no headaches no fever no chills no body aches. He has not been exposed to people infected with coronavirus. we were asked to admit the patient to stabilize his diabetes. no acute distress no chest pain palpitations no shortness of breath no paroxysmal internal dyspnea no nausea vomiting or diarrhea has been reported was placed on Januvia and Invokana on August 30 when he was discharged. Patient did not to get those medications until about 4 days ago. He states he had a hard time getting them. DUE TO COST Patient states he is continued to feel bad. 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 [employer]." fhx HTN Cardiovascular: HTN, Hyperlipidemia Hepatobiliary: No pertinent hx Infectious disease: No pertinent hx Renal/: No pertinent hx Endocrine: Diabetes Dermatology: No pertinent hx Past Surgical History Past Surgical History: No pertinent history Family History Family History: No Significant, Hypertension Social History Smoke: <1 pack per day ALCOHOL: occassional Drugs: None, Marijuana Current Problem List Problem List Problems Medical Problems: (1) Hyperglycemia Status: Acute Current Medications Current Medications Current Medications Sodium Chloride 1,000 ml @ 1,000 mls/hr Q1H IV Last administered on 09/14/20at 22:57; Start 09/14/20 at 23:00; Stop 09/14/20 at 23:59; Status DC Insulin Human Regular (HumuLIN R VIAL) 10 unit 1X ONCE IV Last administered on 09/14/20at 23:01; Start 09/14/20 at 23:00; Stop 09/14/20 at 23:01; Status DC Sodium Chloride 1,000 ml @ 1,000 mls/hr 1X ONCE IV Last administered on 09/14/20at 23:50; Start 09/14/20 at 23:30; Stop 09/15/20 at 00:29; Status DC Insulin Human Regular 100 unit/ Sodium Chloride 101 ml @ 0 mls/hr CONT PRN IV SEE I/O RECORD Last administered on 09/14/20at 23:47; Start 09/14/20 at 23:30; Stop 09/15/20 at 08:38; Status DC Ondansetron HCl (Zofran) 4 mg PRN Q8HRS PRN IV NAUSEA/VOMITING 1ST CHOICE; Start 09/14/20 at 23:30; Stop 09/15/20 at 23:29 Insulin Human Lispro (HumaLOG) 0-7 UNITS TIDACHC SQ ; Start 09/15/20 at 11:30 Dextrose (Dextrose 50%-Water Syringe) 12.5 gm PRN Q15MIN PRN IV SEE COMMENTS; Start 09/15/20 at 08:45 Active Scripts Active Invokana (Canagliflozin) 300 Mg Tablet 1 Tab PO DAILY 90 Days Januvia (Sitagliptin Phosphate) 100 Mg Tablet 1 Tab PO DAILY 90 Days Valium (Diazepam) 5 Mg Tablet 5 Mg PO TID Flomax (Tamsulosin Hcl) 0.4 Mg Cap.er.24h 0.8 Mg PO DAILY Carvedilol (Carvedilol) 12.5 Mg Tablet 12.5 Mg PO BIDWMEALS Atorvastatin Calcium 10 Mg Tablet 10 Mg PO QHS Aspirin 325 Mg Tablet 325 Mg PO DAILYWBKFT Amlodipine Besylate 10 Mg Tablet 10 Mg PO DAILY Reported Losartan Potassium 100 Mg Tablet 100 Tab PO DAILY08 Meloxicam 7.5 Mg Tablet 7.5 Mg PO DAILY Allergies Allergies: Coded Allergies: No Known Drug Allergies (Unverified , 10/07/15) ROS Review of System Constitutional: Denies fever or chills. [] Eyes: Denies change in visual acuity. [] HENT: Denies nasal congestion or sore throat. + Excessive thirst [] Respiratory: Denies cough or shortness of breath. [] Cardiovascular: Denies chest pain or edema. [] GI: Denies abdominal pain, nausea, vomiting, bloody stools or diarrhea. [] : Denies dysuria. + Frequent urination [] Musculoskeletal: Denies back pain or joint pain. + Generalized weakness [] Integument: Denies rash. [] Neurologic: Denies headache, focal weakness or sensory changes. [] Endocrine: Denies polyuria or polydipsia. [] Lymphatic: Denies swollen glands. [] Psychiatric: Denies depression or anxiety. [] 14 PT ROS OTHERWISE NEG Physical Exam Physical Exam Constitutional: Well developed, well nourished, no acute distress, non-toxic appearance. [] HENT: Normocephalic, atraumatic, bilateral external ears normal, oropharynx moist, no oral exudates, nose normal. [] Eyes: PERRLA, EOMI, conjunctiva normal, no discharge. [] Neck: Normal range of motion, no tenderness, supple, no stridor. [] Cardiovascular:Heart rate regular rhythm, no murmur [] Lungs & Thorax: Bilateral breath sounds clear to auscultation [] Abdomen: Bowel sounds normal, soft, no tenderness, no masses, no pulsatile masses. [] Skin: Warm, dry, no erythema, no rash. [] Back: No tenderness, no CVA tenderness. [] Extremities: No tenderness, no cyanosis, no clubbing, ROM intact, no edema. [] Neurologic: Alert and oriented X 3, normal motor function, normal sensory function, no focal deficits noted. [] Psychologic: Affect normal, judgement normal, mood normal. General: Alert, Oriented X3, Cooperative, No acute distress HEENT: Atraumatic, EOMI, Mucous membr. moist/pink Lungs: Clear to auscultation, Normal air movement Heart: S1S2, RRR, no gallops, no murmurs Breasts: Not examined Abdomen: Normal bowel sounds, Soft Rectal Exam: not examined PELVIC: Examination not indicated Extremities: No clubbing, No cyanosis, No edema Neuro: Normal speech, Strength at 5/5 X4 ext, Sensation intact, Cranial nerves 3-12 NL Psych/Mental Status: Mental status NL, Mood NL Vitals Vitals Vital Signs Date Time Temp Pulse Resp B/P (MAP) Pulse Ox O2 Delivery O2 Flow Rate FiO2 09/15/20 07:00 97.9 70 16 132/62 (85) 98 Room Air 97.9 Labs Labs Laboratory Tests Test 09/14/20 22:25 09/14/20 22:33 09/14/20 23:27 09/14/20 23:45 Urine Collection Type Void Urine Color Straw Urine Clarity Clear Urine pH 5.5 (<5.0-8.0) Urine Specific [place] >=1.030 (1.000-1.030) Urine Protein Negative mg/dL (NEG-TRACE) Urine Glucose (UA) >=1000 mg/dL (NEG) Urine Ketones (Stick) Negative mg/dL (NEG) Urine Blood Negative (NEG) Urine Nitrite Negative (NEG) Urine Bilirubin Negative (NEG) Urine Urobilinogen Dipstick 0.2 mg/dL (0.2 mg/dL) Urine Leukocyte Esterase Negative (NEG) Urine RBC 0 /HPF (0-2) Urine WBC 0 /HPF (0-4) Urine Squamous Epithelial Cells Occ /LPF Urine Bacteria 0 /HPF (0-FEW) White Blood Count 9.9 x10^3/uL (4.0-11.0) Red Blood Count 4.74 x10^6/uL (4.30-5.70) Hemoglobin 13.5 g/dL (13.0-17.5) Hematocrit 40.5 % (39.0-53.0) Mean Corpuscular Volume 86 fL (79-100) Mean Corpuscular Hemoglobin 28 pg (25-35) Mean Corpuscular Hemoglobin Concent 33 g/dL (31-37) Red Cell Distribution Width 13.8 % (11.5-14.5) Platelet Count 211 x10^3/uL (140-400) Neutrophils (%) (Auto) 56 % (31-73) Lymphocytes (%) (Auto) 33 % (24-48) Monocytes (%) (Auto) 8 % (0-9) Eosinophils (%) (Auto) 2 % (0-3) Basophils (%) (Auto) 1 % (0-3) Neutrophils # (Auto) 5.6 x10^3/uL (1.8-7.7) Lymphocytes # (Auto) 3.3 x10^3/uL (1.0-4.8) Monocytes # (Auto) 0.8 x10^3/uL (0.0-1.1) Eosinophils # (Auto) 0.2 x10^3/uL (0.0-0.7) Basophils # (Auto) 0.1 x10^3/uL (0.0-0.2) Sodium Level 129 mmol/L (136-145) Potassium Level 4.9 mmol/L (3.5-5.1) Chloride Level 94 mmol/L (98-107) Carbon Dioxide Level 20 mmol/L (21-32) Anion Gap 15 (6-14) Blood Urea Nitrogen 26 mg/dL (8-26) Creatinine 1.6 mg/dL (0.7-1.3) Estimated GFR (Cockcroft-Gault) 53.6 BUN/Creatinine Ratio 16 (6-20) Glucose Level 698 mg/dL (70-99) Calcium Level 9.3 mg/dL (8.5-10.1) Magnesium Level 2.5 mg/dL (1.8-2.4) Total Bilirubin 0.4 mg/dL (0.2-1.0) Aspartate Amino Transf (AST/SGOT) 8 U/L (15-37) Alanine Aminotransferase (ALT/SGPT) 18 U/L (16-63) Alkaline Phosphatase 142 U/L (46-116) Troponin I Quantitative < 0.017 ng/mL (0.000-0.055) Total Protein 8.0 g/dL (6.4-8.2) Albumin 3.6 g/dL (3.4-5.0) Albumin/Globulin Ratio 0.8 (1.0-1.7) Acetone Level Neg (NEG) Glucose (Fingerstick) 515 mg/dL (70-99) O2 Saturation 95 % (92-99) Arterial Blood pH 7.39 (7.35-7.45) Arterial Blood pCO2 at Patient Temp 36 mmHg (35-46) Arterial Blood pO2 at Patient Temp 82 mmHg (65-108) Arterial Blood HCO3 22 mmol/L (21-28) Arterial Blood Base Excess -3 mmol/L (-3-3) Oxyhemoglobin 94.4 % Methemoglobin 0.2 % (0.0-1.9) Carbon Monoxide, Quantitative 0.2 % (0.0-1.9) FiO2 21 Test 09/15/20 00:44 09/15/20 01:50 09/15/20 02:41 09/15/20 04:01 Glucose (Fingerstick) 233 mg/dL (70-99) 131 mg/dL (70-99) 163 mg/dL (70-99) 195 mg/dL (70-99) Test 09/15/20 05:08 09/15/20 05:54 09/15/20 07:21 09/15/20 07:48 Glucose (Fingerstick) 222 mg/dL (70-99) 182 mg/dL (70-99) 84 mg/dL (70-99) 65 mg/dL (70-99) Test 09/15/20 08:00 09/15/20 08:15 Glucose (Fingerstick) 105 mg/dL (70-99) 172 mg/dL (70-99) Laboratory Tests Test 09/14/20 22:25 09/14/20 22:33 09/14/20 23:27 09/14/20 23:45 Urine Collection Type Void Urine Color Straw Urine Clarity Clear Urine pH 5.5 (<5.0-8.0) Urine Specific [place] >=1.030 (1.000-1.030) Urine Protein Negative mg/dL (NEG-TRACE) Urine Glucose (UA) >=1000 mg/dL (NEG) Urine Ketones (Stick) Negative mg/dL (NEG) Urine Blood Negative (NEG) Urine Nitrite Negative (NEG) Urine Bilirubin Negative (NEG) Urine Urobilinogen Dipstick 0.2 mg/dL (0.2 mg/dL) Urine Leukocyte Esterase Negative (NEG) Urine RBC 0 /HPF (0-2) Urine WBC 0 /HPF (0-4) Urine Squamous Epithelial Cells Occ /LPF Urine Bacteria 0 /HPF (0-FEW) White Blood Count 9.9 x10^3/uL (4.0-11.0) Red Blood Count 4.74 x10^6/uL (4.30-5.70) Hemoglobin 13.5 g/dL (13.0-17.5) Hematocrit 40.5 % (39.0-53.0) Mean Corpuscular Volume 86 fL (79-100) Mean Corpuscular Hemoglobin 28 pg (25-35) Mean Corpuscular Hemoglobin Concent 33 g/dL (31-37) Red Cell Distribution Width 13.8 % (11.5-14.5) Platelet Count 211 x10^3/uL (140-400) Neutrophils (%) (Auto) 56 % (31-73) Lymphocytes (%) (Auto) 33 % (24-48) Monocytes (%) (Auto) 8 % (0-9) Eosinophils (%) (Auto) 2 % (0-3) Basophils (%) (Auto) 1 % (0-3) Neutrophils # (Auto) 5.6 x10^3/uL (1.8-7.7) Lymphocytes # (Auto) 3.3 x10^3/uL (1.0-4.8) Monocytes # (Auto) 0.8 x10^3/uL (0.0-1.1) Eosinophils # (Auto) 0.2 x10^3/uL (0.0-0.7) Basophils # (Auto) 0.1 x10^3/uL (0.0-0.2) Sodium Level 129 mmol/L (136-145) Potassium Level 4.9 mmol/L (3.5-5.1) Chloride Level 94 mmol/L (98-107) Carbon Dioxide Level 20 mmol/L (21-32) Anion Gap 15 (6-14) Blood Urea Nitrogen 26 mg/dL (8-26) Creatinine 1.6 mg/dL (0.7-1.3) Estimated GFR (Cockcroft-Gault) 53.6 BUN/Creatinine Ratio 16 (6-20) Glucose Level 698 mg/dL (70-99) Calcium Level 9.3 mg/dL (8.5-10.1) Magnesium Level 2.5 mg/dL (1.8-2.4) Total Bilirubin 0.4 mg/dL (0.2-1.0) Aspartate Amino Transf (AST/SGOT) 8 U/L (15-37) Alanine Aminotransferase (ALT/SGPT) 18 U/L (16-63) Alkaline Phosphatase 142 U/L (46-116) Troponin I Quantitative < 0.017 ng/mL (0.000-0.055) Total Protein 8.0 g/dL (6.4-8.2) Albumin 3.6 g/dL (3.4-5.0) Albumin/Globulin Ratio 0.8 (1.0-1.7) Acetone Level Neg (NEG) Glucose (Fingerstick) 515 mg/dL (70-99) O2 Saturation 95 % (92-99) Arterial Blood pH 7.39 (7.35-7.45) Arterial Blood pCO2 at Patient Temp 36 mmHg (35-46) Arterial Blood pO2 at Patient Temp 82 mmHg (65-108) Arterial Blood HCO3 22 mmol/L (21-28) Arterial Blood Base Excess -3 mmol/L (-3-3) Oxyhemoglobin 94.4 % Methemoglobin 0.2 % (0.0-1.9) Carbon Monoxide, Quantitative 0.2 % (0.0-1.9) FiO2 21 Test 09/15/20 00:44 09/15/20 01:50 09/15/20 02:41 09/15/20 04:01 Glucose (Fingerstick) 233 mg/dL (70-99) 131 mg/dL (70-99) 163 mg/dL (70-99) 195 mg/dL (70-99) Test 09/15/20 05:08 09/15/20 05:54 09/15/20 07:21 09/15/20 07:48 Glucose (Fingerstick) 222 mg/dL (70-99) 182 mg/dL (70-99) 84 mg/dL (70-99) 65 mg/dL (70-99) Test 09/15/20 08:00 09/15/20 08:15 Glucose (Fingerstick) 105 mg/dL (70-99) 172 mg/dL (70-99) Images Images PATIENT: JENI STARK DACCOUNT: [id number] : 1960 LOCATION: ER AGE: 59 SEX: M EXAM STATUS: REG ER ORD. PHYSICIAN: JUAN ALBERTO KELLEY APRN REASON: weakness PROCEDURE: PORTABLE CHEST 1V Chest AP portable at 2253: Reason for examination: Weakness. Comparison is made to previous study dated 08/27/2020. The heart size is normal. Mediastinum is unremarkable. Lung fisher are clear. No acute bony abnormalities are seen. Impression: No acute cardiopulmonary disease. Electronically signed by: Bren Dobbins MD (09/14/2020 11:14 PM) [facility] DICTATED and SIGNED BY: BREN DOBBINS MD DATE: 09/14/20 [id number] VTE Prophylaxis Ordered VTE Prophylaxis Devices: Yes VTE Pharmacological Prophylaxi: Yes Assessment/Plan Assessment/Plan IMPRESSION Uncontrolled diabetes type 2 Hyperglycemia History of dyslipidemia Pseudohyponatremia History of essential hypertension MORBID OBESITY NONCOMPLIANCE DUE TO COST OF MEDS PLAN ADMIT OBSERVATION INSULIN DRIP Plan ADA diet Lantus twice a day and lispro with meals Lipid panel with slight elevation of triglycerides and low HDL. 3 months of lifestyle modification hemoglobin A1c DVT PROPHYLAXIS Diabetic education Hopefully discharge in next 24 to 48 hours continues to do well DVT prophylaxis with Lovenox Justifications for Admission Other Justification uncontrolled diabetes AIDE LENTZ MD Sep 15, 2020 09:12
--- NOTE | 2020-09-15 09:51 | NUR ---
SW following. Discussed with RN, pt from home, room air, ada diet. RN advised no SW needs at this time. SW will continue to follow.
[2020-09-15 11:00] VITALS: BP_SYST 153; BP_SYST 157; BP_DIAS 68; BP_DIAS 79
[2020-09-15] MEDS: INSULIN LISPRO 300 UNITS/3 ML VIAL. SQ SCH ×3 (12:12→21:49)
[2020-09-15] MEDS ORDERED: ZOLPIDEM 5 MG TABLET. PO PRN (14:30)
[2020-09-15] MEDS ORDERED: MAG HYDROX/ALUMINUM HYD/SIMETH 30 ML ORAL.SUSP PO PRN (14:30)
[2020-09-15] MEDS ORDERED: ALBUTEROL SULFATE 2.5 MG/3 ML NEBU. NEB PRN (14:30)
[2020-09-15] MEDS ORDERED: DOCUSATE SODIUM 100 MG CAPSULE. PO PRN (14:30)
[2020-09-15] MEDS ORDERED: LORazepam 0.5 MG TABLET PO PRN (14:30)
[2020-09-15] MEDS ORDERED: cloNIDine HCL 0.1 MG TABLET PO PRN (14:30)
[2020-09-15] MEDS ORDERED: 0.9 % SODIUM CHLORIDE 10 ML DISP.SYRIN. IV PRN (14:30)
[2020-09-15] MEDS ORDERED: ONDANSETRON PF 4 MG/2 ML VIAL. IV PRN (14:30)
[2020-09-15] MEDS ORDERED: SODIUM PHOSPHATES 19/7GM 133 ML ENEMA. PR PRN (14:30)
[2020-09-15] MEDS ORDERED: ACETAMINOPHEN 325 MG TABLET. PO PRN (14:30)
[2020-09-15] MEDS ORDERED: guaiFENesin ORAL 200 MG/10 ML LIQUID. PO PRN (14:30)
[2020-09-15] MEDS: IV NORMAL SALINE 1000ML BAG 1,000 ML IV SCH (14:55)
[2020-09-15] MEDS: ENOXAPARIN 40 MG/0.4 ML SYRINGE. SQ SCH (14:56)
[2020-09-15 15:00] VITALS: BP 140/87
[2020-09-15] MEDS: diazePAM 5 MG TABLET PO SCH ×2 (15:00→21:33)
[2020-09-15] MEDS: CARVEDILOL 12.5 MG TABLET. PO SCH (17:13)
[2020-09-15 19:00] VITALS: BP 145/85
[2020-09-15] MEDS ORDERED: INSULIN GLARGINE SYRINGE. SQ SCH (21:00)
[2020-09-15] MEDS: ATORVASTATIN CALCIUM 10 MG TABLET. PO SCH (21:33)
[2020-09-15 23:00] VITALS: BP 155/101
[2020-09-16] MEDS: IV NORMAL SALINE 1000ML BAG 1,000 ML IV SCH ×2 (00:33→11:30)
[2020-09-16 03:00] VITALS: BP 113/61
--- NOTE | 2020-09-16 04:38 | NUR ---
Patient non-compliant with food ate most of the night, had sandwich box, gram crackers, saltine crackers, peanut butter, milk, apple juice, grape juice, diet Christa cola, diet Christa north fork soda, chocolate pudding and continues to c/o being hungry constantly through the night asking different staff for food consistently, Doctor and RN educated on Diabetes and food but Patient continues to ask for food each time saying he is still hungry.
[2020-09-16 07:00] VITALS: BP 135/73
[2020-09-16] MEDS: CARVEDILOL 12.5 MG TABLET. PO SCH ×2 (08:00→17:00)
[2020-09-16] MEDS: ASPIRIN 325 MG TABLET PO SCH (08:19)
[2020-09-16] MEDS: diazePAM 5 MG TABLET PO SCH ×3 (08:20→20:51)
[2020-09-16] MEDS: TAMSULOSIN 0.4 MG CAP.ER.24H. PO SCH (08:22)
[2020-09-16] MEDS: LOSARTAN POTASSIUM 50 MG TABLET. PO SCH (08:22)
[2020-09-16] MEDS: INSULIN LISPRO 300 UNITS/3 ML VIAL. SQ SCH ×4 (08:29→20:57)
--- NOTE | 2020-09-16 08:44 | PDOC ---
PROGRESS NOTES Date of Service: DATE: 09/16/20 TIME: 08:43 Chief Complaint Chief Complaint VTE Prophylaxis Ordered VTE Prophylaxis Devices: Yes VTE Pharmacological Prophylaxi: Yes Assessment/Plan Assessment/Plan IMPRESSION Uncontrolled diabetes type 2, SLOW TO IMPROVE Hyperglycemia History of dyslipidemia Pseudohyponatremia History of essential hypertension MORBID OBESITY NONCOMPLIANCE DUE TO COST OF MEDS PLAN ADMIT OBSERVATION INSULIN DRIP, D/C 09-15 Plan ADA diet Lantus twice a day and lispro with meals Lipid panel with slight elevation of triglycerides and low HDL. 3 months of lifestyle modification hemoglobin A1c DVT PROPHYLAXIS Diabetic education Hopefully discharge 09-17 , ss insulin DVT prophylaxis with Lovenox 09-16 HE APPEARS TO BE CONSUMING TOO many carbs, d/w pt and dietary, educated D/W RN Justifications for Admission Justifications for Admission Other Justification uncontrolled diabetes History of Present Illness History of Present Illness Identification/Chief Complaint Chief Complaint UNCONTROLLED DIABETES History of Present Illness History of Present Illness 59-year-old gentleman with past medical history of essential hypertension dyslipidemia and he was told HE diabetic who has been weaker than usual, lightheaded. NOTES polyuria polyphagia polydipsia prior to his presentation He actually says that his vision has gotten better over the last week or so. patient has been feeling nauseous has not been able to eat as much as he usually does no changes in his diet has been reported no recent infections no upper respiratory tract infections no headaches no fever no chills no body aches. He has not been exposed to people infected with coronavirus. we were asked to admit the patient to stabilize his diabetes. no acute distress no chest pain palpitations no shortness of breath no pa roxysmal internal dyspnea no nausea vomiting or diarrhea has been reported was placed on Januvia and Invokana on August 30 when he was discharged. Patient did not to get those medications until about 4 days ago. He states he had a hard time getting them. DUE TO COST Patient states he is continued to feel bad. 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 MARIJUANA." fhx HTN Cardiovascular: HTN, Hyperlipidemia Hepatobiliary: No pertinent hx Infectious disease: No pertinent hx Renal/: No pertinent hx Endocrine: Diabetes Dermatology: No pertinent hx Past Surgical History Past Surgical History: No pertinent history Family History Family History: No Significant, Hypertension Social History Smoke: <1 pack per day ALCOHOL: occassional Drugs: None, Marijuana Current Problem List Problem List Problems Medical Problems: (1) Hyperglycemia Status: Acute Vitals Vitals Vital Signs Date Time Temp Pulse Resp B/P (MAP) Pulse Ox O2 Delivery O2 Flow Rate FiO2 09/16/20 08:22 65 135/73 09/16/20 07:00 97.7 16 98 Room Air 97.7 Physical Exam General: Alert, Oriented X3, Cooperative, No acute distress Heart: Regular rate Lungs: Clear Abdomen: Normal bowel sounds, Soft Extremities: No clubbing, No cyanosis, No edema Skin: No significant lesion Labs LABS Laboratory Tests Test 09/15/20 12:01 09/15/20 16:59 09/15/20 21:35 09/16/20 07:13 Glucose (Fingerstick) 307 mg/dL (70-99) 250 mg/dL (70-99) 440 mg/dL (70-99) 259 mg/dL (70-99) Assessment and Plan Assessmemt and Plan Problems Medical Problems: (1) Hyperglycemia Status: Acute Comment Review of Relevant I have reviewed the following items michelle (where applicable) has been applied. Labs Laboratory Tests Test 09/14/20 22:25 09/14/20 22:33 09/14/20 23:27 09/14/20 23:45 Urine Collection Type Void Urine Color Straw Urine Clarity Clear Urine pH 5.5 (<5.0-8.0) Urine Specific [place] >=1.030 (1.000-1.030) Urine Protein Negative mg/dL (NEG-TRACE) Urine Glucose (UA) >=1000 mg/dL (NEG) Urine Ketones (Stick) Negative mg/dL (NEG) Urine Blood Negative (NEG) Urine Nitrite Negative (NEG) Urine Bilirubin Negative (NEG) Urine Urobilinogen Dipstick 0.2 mg/dL (0.2 mg/dL) Urine Leukocyte Esterase Negative (NEG) Urine RBC 0 /HPF (0-2) Urine WBC 0 /HPF (0-4) Urine Squamous Epithelial Cells Occ /LPF Urine Bacteria 0 /HPF (0-FEW) White Blood Count 9.9 x10^3/uL (4.0-11.0) Red Blood Count 4.74 x10^6/uL (4.30-5.70) Hemoglobin 13.5 g/dL (13.0-17.5) Hematocrit 40.5 % (39.0-53.0) Mean Corpuscular Volume 86 fL (79-100) Mean Corpuscular Hemoglobin 28 pg (25-35) Mean Corpuscular Hemoglobin Concent 33 g/dL (31-37) Red Cell Distribution Width 13.8 % (11.5-14.5) Platelet Count 211 x10^3/uL (140-400) Neutrophils (%) (Auto) 56 % (31-73) Lymphocytes (%) (Auto) 33 % (24-48) Monocytes (%) (Auto) 8 % (0-9) Eosinophils (%) (Auto) 2 % (0-3) Basophils (%) (Auto) 1 % (0-3) Neutrophils # (Auto) 5.6 x10^3/uL (1.8-7.7) Lymphocytes # (Auto) 3.3 x10^3/uL (1.0-4.8) Monocytes # (Auto) 0.8 x10^3/uL (0.0-1.1) Eosinophils # (Auto) 0.2 x10^3/uL (0.0-0.7) Basophils # (Auto) 0.1 x10^3/uL (0.0-0.2) Sodium Level 129 mmol/L (136-145) Potassium Level 4.9 mmol/L (3.5-5.1) Chloride Level 94 mmol/L (98-107) Carbon Dioxide Level 20 mmol/L (21-32) Anion Gap 15 (6-14) Blood Urea Nitrogen 26 mg/dL (8-26) Creatinine 1.6 mg/dL (0.7-1.3) Estimated GFR (Cockcroft-Gault) 53.6 BUN/Creatinine Ratio 16 (6-20) Glucose Level 698 mg/dL (70-99) Calcium Level 9.3 mg/dL (8.5-10.1) Magnesium Level 2.5 mg/dL (1.8-2.4) Total Bilirubin 0.4 mg/dL (0.2-1.0) Aspartate Amino Transf (AST/SGOT) 8 U/L (15-37) Alanine Aminotransferase (ALT/SGPT) 18 U/L (16-63) Alkaline Phosphatase 142 U/L (46-116) Troponin I Quantitative < 0.017 ng/mL (0.000-0.055) Total Protein 8.0 g/dL (6.4-8.2) Albumin 3.6 g/dL (3.4-5.0) Albumin/Globulin Ratio 0.8 (1.0-1.7) Acetone Level Neg (NEG) Glucose (Fingerstick) 515 mg/dL (70-99) O2 Saturation 95 % (92-99) Arterial Blood pH 7.39 (7.35-7.45) Arterial Blood pCO2 at Patient Temp 36 mmHg (35-46) Arterial Blood pO2 at Patient Temp 82 mmHg (65-108) Arterial Blood HCO3 22 mmol/L (21-28) Arterial Blood Base Excess -3 mmol/L (-3-3) Oxyhemoglobin 94.4 % Methemoglobin 0.2 % (0.0-1.9) Carbon Monoxide, Quantitative 0.2 % (0.0-1.9) FiO2 21 Test 09/15/20 00:44 09/15/20 01:50 09/15/20 02:41 09/15/20 04:01 Glucose (Fingerstick) 233 mg/dL (70-99) 131 mg/dL (70-99) 163 mg/dL (70-99) 195 mg/dL (70-99) Test 09/15/20 05:08 09/15/20 05:54 09/15/20 07:21 09/15/20 07:48 Glucose (Fingerstick) 222 mg/dL (70-99) 182 mg/dL (70-99) 84 mg/dL (70-99) 65 mg/dL (70-99) Test 09/15/20 08:00 09/15/20 08:15 09/15/20 12:01 09/15/20 16:59 Glucose (Fingerstick) 105 mg/dL (70-99) 172 mg/dL (70-99) 307 mg/dL (70-99) 250 mg/dL (70-99) Test 09/15/20 21:35 09/16/20 07:13 Glucose (Fingerstick) 440 mg/dL (70-99) 259 mg/dL (70-99) Laboratory Tests Test 09/15/20 12:01 09/15/20 16:59 09/15/20 21:35 09/16/20 07:13 Glucose (Fingerstick) 307 mg/dL (70-99) 250 mg/dL (70-99) 440 mg/dL (70-99) 259 mg/dL (70-99) Medications Current Medications Sodium Chloride 1,000 ml @ 1,000 mls/hr Q1H IV Last administered on 09/14/20at 22:57; Start 09/14/20 at 23:00; Stop 09/14/20 at 23:59; Status DC Insulin Human Regular (HumuLIN R VIAL) 10 unit 1X ONCE IV Last administered on 09/14/20at 23:01; Start 09/14/20 at 23:00; Stop 09/14/20 at 23:01; Status DC Sodium Chloride 1,000 ml @ 1,000 mls/hr 1X ONCE IV Last administered on 09/14/20at 23:50; Start 09/14/20 at 23:30; Stop 09/15/20 at 00:29; Status DC Insulin Human Regular 100 unit/ Sodium Chloride 101 ml @ 0 mls/hr CONT PRN IV SEE I/O RECORD Last administered on 09/14/20at 23:47; Start 09/14/20 at 23:30; Stop 09/15/20 at 08:38; Status DC Ondansetron HCl (Zofran) 4 mg PRN Q8HRS PRN IV NAUSEA/VOMITING 1ST CHOICE; Start 09/14/20 at 23:30; Stop 09/15/20 at 23:29; Status DC Insulin Human Lispro (HumaLOG) 0-7 UNITS TIDACHC SQ Last administered on 09/16/20at 08:29; Start 09/15/20 at 11:30 Dextrose (Dextrose 50%-Water Syringe) 12.5 gm PRN Q15MIN PRN IV SEE COMMENTS; Start 09/15/20 at 08:45 Sodium Chloride (Normal Saline Flush) 3 ml QSHIFT PRN IV AFTER MEDS AND BLOOD DRAWS; Start 09/15/20 at 14:30 Sodium Chloride 1,000 ml @ 100 mls/hr Q10H IV Last administered on 09/16/20at 00:33; Start 09/15/20 at 14:30 Ondansetron HCl (Zofran) 4 mg PRN Q4HRS PRN IV NAUSEA/VOMITING; Start 09/15/20 at 14:30 Zolpidem Tartrate (Ambien) 5 mg PRN QHS PRN PO INSOMNIA Last administered on 09/15/20at 21:33; Start 09/15/20 at 14:30 Acetaminophen (Tylenol) 650 mg PRN Q4HRS PRN PO TEMP OVER 100.4F OR MILD PAIN; Start 09/15/20 at 14:30 Al Hydroxide/Mg Hydroxide (Mylanta Plus Xs) 30 ml PRN DAILY PRN PO HEARTBURN / GAS; Start 09/15/20 at 14:30 Clonidine HCl (Catapres) 0.1 mg PRN Q6HRS PRN PO SBP>160 OR DBP>90; Start 09/15/20 at 14:30 Sodium Monofluorophosphate (Fleet Adult) 133 ml PRN DAILY PRN [place] CONSTIPATION; Start 09/15/20 at 14:30 Docusate Sodium (Colace) 100 mg PRN BID PRN PO HARD STOOLS; Start 09/15/20 at 14:30 Albuterol Sulfate (Ventolin Neb Soln) 2.5 mg PRN Q4HRS PRN NEB SHORTNESS OF BREATH; Start 09/15/20 at 14:30 Guaifenesin (Robitussin) 200 mg PRN Q4HRS PRN PO COUGH; Start 09/15/20 at 14:30 Lorazepam (Ativan) 0.5 mg PRN Q4HRS PRN PO ANXIETY / AGITATION; Start 09/15/20 at 14:30 Enoxaparin Sodium (Lovenox 40mg Syringe) 40 mg Q24H SQ Last administered on 09/15/20at 14:56; Start 09/15/20 at 15:00 Amlodipine Besylate (Norvasc) 10 mg DAILY PO Last administered on 09/16/20at 08:19; Start 09/16/20 at 09:00 Aspirin (Ingrid Aspirin) 325 mg DAILYWBKFT PO Last administered on 09/16/20at 08:19; Start 09/16/20 at 08:00 Atorvastatin Calcium (Lipitor) 10 mg QHS PO Last administered on 09/15/20at 2 1:33; Start 09/15/20 at 21:00 Carvedilol (Coreg) 12.5 mg BIDWMEALS PO Last administered on 09/15/20at 17:13; Start 09/15/20 at 17:00 Diazepam (Valium) 5 mg TID PO Last administered on 09/15/20at 21:33; Start 09/15/20 at 15:00 Tamsulosin HCl (Flomax) 0.8 mg DAILY PO Last administered on 09/16/20at 08:22; Start 09/16/20 at 09:00 Losartan Potassium (Cozaar) 100 mg DAILY08 PO Last administered on 09/16/20at 08:22; Start 09/16/20 at 08:00 Insulin Glargine (Lantus Syringe) 10 unit QHS SQ Last administered on 09/15/20at 21:50; Start 09/15/20 at 21:00 Active Scripts Active Invokana (Canagliflozin) 300 Mg Tablet 1 Tab PO DAILY 90 Days Januvia (Sitagliptin Phosphate) 100 Mg Tablet 1 Tab PO DAILY 90 Days Valium (Diazepam) 5 Mg Tablet 5 Mg PO TID Flomax (Tamsulosin Hcl) 0.4 Mg Cap.er.24h 0.8 Mg PO DAILY Carvedilol (Carvedilol) 12.5 Mg Tablet 12.5 Mg PO BIDWMEALS Atorvastatin Calcium 10 Mg Tablet 10 Mg PO QHS Aspirin 325 Mg Tablet 325 Mg PO DAILYWBKFT Amlodipine Besylate 10 Mg Tablet 10 Mg PO DAILY Reported Losartan Potassium 100 Mg Tablet 100 Tab PO DAILY08 Meloxicam 7.5 Mg Tablet 7.5 Mg PO DAILY Vitals/I & O Vital Sign - Last 24 Hours 09/15/20 09/15/20 09/15/20 09/15/20 11:00 15:00 17:13 19:00 Temp 97.8 98.0 98.1 97.8 98.0 98.1 Pulse 86 88 88 70 Resp 18 18 18 B/P (MAP) 157/79 (105) 140/87 (104) 140/87 145/85 (105) Pulse Ox 98 97 96 O2 Delivery Room Air Room Air Room Air 09/15/20 09/15/20 09/16/20 09/16/20 20:00 23:00 03:00 07:00 Temp 98.0 97.9 97.7 98.0 97.9 97.7 Pulse 86 61 65 Resp 20 16 16 B/P (MAP) 155/101 (119) 113/61 (78) 135/73 (93) Pulse Ox 99 97 98 O2 Delivery Room Air Room Air Room Air 09/16/20 09/16/20 09/16/20 08:00 08:19 08:22 Pulse 65 65 65 B/P (MAP) 135/73 135/73 135/73 Intake and Output 09/15/20 09/15/20 09/16/20 15:00 23:00 07:00 Intake Total 2200 ml Output Total 775 ml 625 ml 600 ml Balance -775 ml -625 ml 1600 ml Justicifation of Admission Dx: Justifications for Admission: Justification of Admission Dx: Yes AIDE LENTZ MD Sep 16, 2020 08:44
--- NOTE | 2020-09-16 10:12 | NUR ---
SW following. Discussed with RN, pt from home, room air, ada diet. Pt wanting to go home. RN advised no SW needs at this time, and anticipates pt will be ready for discharge in the next day or two. SW will continue to follow.
[2020-09-16 11:00] VITALS: BP 141/75
[2020-09-16 13:11] LABS: CALCIUM 8.5 mg/dL (8.5-10.1); CREATININE 1.1 mg/dL (0.7-1.3); GFR 82.6; POTASSIUM 4.2 mmol/L (3.5-5.1)
[2020-09-16 15:00] VITALS: BP_SYST 124; BP_SYST 132; BP_SYST 141; BP_DIAS 47; BP_DIAS 57; BP_DIAS 71
[2020-09-16] MEDS: ENOXAPARIN 40 MG/0.4 ML SYRINGE. SQ SCH (15:07)
[2020-09-16 19:00] VITALS: BP 136/70
[2020-09-16] MEDS: ATORVASTATIN CALCIUM 10 MG TABLET. PO SCH (20:50)
[2020-09-16] MEDS ORDERED: INSULIN GLARGINE SYRINGE. SQ SCH (21:00)
[2020-09-16 23:00] VITALS: BP 154/86
[2020-09-17 03:00] VITALS: BP 139/71
[2020-09-17 07:00] VITALS: BP 158/86
[2020-09-17] MEDS ORDERED: NON FORMULARY ITEM (Canagliflozin (Invokana) 1 TAB) PO SCH (09:00)
[2020-09-17] MEDS ORDERED: LINAGLIPTIN 5 MG TABLET PO SCH (09:00)
[2020-09-17] MEDS: diazePAM 5 MG TABLET PO SCH ×2 (09:00→14:00)
[2020-09-17] MEDS: ASPIRIN 325 MG TABLET PO SCH (10:42)
[2020-09-17] MEDS: LOSARTAN POTASSIUM 50 MG TABLET. PO SCH (10:42)
[2020-09-17] MEDS: CARVEDILOL 12.5 MG TABLET. PO SCH (10:43)
[2020-09-17] MEDS: TAMSULOSIN 0.4 MG CAP.ER.24H. PO SCH (10:43)
[2020-09-17] MEDS: INSULIN LISPRO 300 UNITS/3 ML VIAL. SQ SCH ×2 (10:58→12:10)
--- NOTE | 2020-09-17 11:02 | PDOC ---
PROGRESS NOTES Date of Service: DATE: 09/17/20 TIME: 11:01 Chief Complaint Chief Complaint VTE Prophylaxis Ordered VTE Prophylaxis Devices: Yes VTE Pharmacological Prophylaxi: Yes Assessment/Plan Assessment/Plan IMPRESSION Uncontrolled diabetes type 2, SLOW TO IMPROVE a1c 12.3 Hyperglycemia History of dyslipidemia Pseudohyponatremia History of essential hypertension MORBID OBESITY NONCOMPLIANCE DUE TO COST OF MEDS PLAN ADMIT OBSERVATION INSULIN DRIP, D/C 09-15 Plan ADA diet Lantus 18 units sq q hs lispro with meals Lipid panel with slight elevation of triglycerides and low HDL. 3 months of lifestyle modification hemoglobin A1c DVT PROPHYLAXIS Diabetic education Hopefully discharge 09-17 , ss insulin, lantus 18 units hs DVT prophylaxis with Lovenox 09-17 HE APPEARS TO BE CONSUMING TOO many carbs, d/w pt and dietary, educated D/W RN d/c planning 32 min Justifications for Admission Justifications for Admission Other Justification uncontrolled diabetes History of Present Illness History of Present Illness Identification/Chief Complaint Chief Complaint UNCONTROLLED DIABETES History of Present Illness History of Present Illness 59-year-old gentleman with past medical history of essential hypertension dyslipidemia and he was told HE diabetic who has been weaker than usual, lightheaded. NOTES polyuria polyphagia polydipsia prior to his presentation He actually says that his vision has gotten better over the last week or so. patient has been feeling nauseous has not been able to eat as much as he usually does no changes in his diet has been reported no recent infections no upper respiratory tract infections no headaches no fever no chills no body aches. He has not been exposed to people infected with coronavirus. we were asked to admit the patient to stabilize his diabetes. no acute distress no chest pain palpitations no shortness of breath no paroxysmal internal dyspnea no nausea vomiting or diarrhea has been reported was placed on Januvia and Invokana on August 30 when he was discharged. Patient did not to get those medications until about 4 days ago. He states he had a hard time getting them. DUE TO COST Patient states he is continued to feel bad. 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 MARIJUANA." fhx HTN Cardiovascular: HTN, Hyperlipidemia Hepatobiliary: No pertinent hx Infectious disease: No pertinent hx Renal/: No pertinent hx Endocrine: Diabetes Dermatology: No pertinent hx Past Surgical History Past Surgical History: No pertinent history Family History Family History: No Significant, Hypertension Social History Smoke: <1 pack per day ALCOHOL: occassional Drugs: None, Marijuana Current Problem List Problem List Problems Medical Problems: (1) Hyperglycemia Status: Acute Vitals Vitals Vital Signs Date Time Temp Pulse Resp B/P (MAP) Pulse Ox O2 Delivery O2 Flow Rate FiO2 09/17/20 10:43 73 158/86 09/17/20 07:00 97.7 20 96 Room Air 97.7 Physical Exam General: Alert, Oriented X3, Cooperative, No acute distress Heart: Regular rate, Normal S1, Normal S2, No murmurs Lungs: Clear Abdomen: Normal bowel sounds, Soft, No tenderness Extremities: No clubbing, No cyanosis, No edema Skin: No significant lesion Labs LABS Laboratory Tests Test 09/16/20 12:50 09/16/20 16:29 09/16/20 19:24 09/17/20 07:55 Sodium Level 137 mmol/L (136-145) Potassium Level 4.2 mmol/L (3.5-5.1) Chloride Level 104 mmol/L (98-107) Carbon Dioxide Level 25 mmol/L (21-32) Anion Gap 8 (6-14) Blood Urea Nitrogen 12 mg/dL (8-26) Creatinine 1.1 mg/dL (0.7-1.3) Estimated GFR (Cockcroft-Gault) 82.6 Glucose Level 311 mg/dL (70-99) Calcium Level 8.5 mg/dL (8.5-10.1) Glucose (Fingerstick) 295 mg/dL (70-99) 293 mg/dL (70-99) 271 mg/dL (70-99) Assessment and Plan Assessmemt and Plan Problems Medical Problems: (1) Hyperglycemia Status: Acute Comment Review of Relevant I have reviewed the following items michelle (where applicable) has been applied. Labs Laboratory Tests Test 09/15/20 12:01 09/15/20 16:59 09/15/20 21:35 09/16/20 07:13 Glucose (Fingerstick) 307 mg/dL (70-99) 250 mg/dL (70-99) 440 mg/dL (70-99) 259 mg/dL (70-99) Test 09/16/20 10:42 09/16/20 12:50 09/16/20 16:29 09/16/20 19:24 Glucose (Fingerstick) 288 mg/dL (70-99) 295 mg/dL (70-99) 293 mg/dL (70-99) Sodium Level 137 mmol/L (136-145) Potassium Level 4.2 mmol/L (3.5-5.1) Chloride Level 104 mmol/L (98-107) Carbon Dioxide Level 25 mmol/L (21-32) Anion Gap 8 (6-14) Blood Urea Nitrogen 12 mg/dL (8-26) Creatinine 1.1 mg/dL (0.7-1.3) Estimated GFR (Cockcroft-Gault) 82.6 Glucose Level 311 mg/dL (70-99) Calcium Level 8.5 mg/dL (8.5-10.1) Test 09/17/20 07:55 Glucose (Fingerstick) 271 mg/dL (70-99) Laboratory Tests Test 09/16/20 12:50 09/16/20 16:29 09/16/20 19:24 09/17/20 07:55 Sodium Level 137 mmol/L (136-145) Potassium Level 4.2 mmol/L (3.5-5.1) Chloride Level 104 mmol/L (98-107) Carbon Dioxide Level 25 mmol/L (21-32) Anion Gap 8 (6-14) Blood Urea Nitrogen 12 mg/dL (8-26) Creatinine 1.1 mg/dL (0.7-1.3) Estimated GFR (Cockcroft-Gault) 82.6 Glucose Level 311 mg/dL (70-99) Calcium Level 8.5 mg/dL (8.5-10.1) Glucose (Fingerstick) 295 mg/dL (70-99) 293 mg/dL (70-99) 271 mg/dL (70-99) Medications Current Medications Sodium Chloride 1,000 ml @ 1,000 mls/hr Q1H IV Last administered on 09/14/20at 22:57; Start 09/14/20 at 23:00; Stop 09/14/20 at 23:59; Status DC Insulin Human Regular (HumuLIN R VIAL) 10 unit 1X ONCE IV Last administered on 09/14/20at 23:01; Start 09/14/20 at 23:00; Stop 09/14/20 at 23:01; Status DC Sodium Chloride 1,000 ml @ 1,000 mls/hr 1X ONCE IV Last administered on 09/14/20at 23:50; Start 09/14/20 at 23:30; Stop 09/15/20 at 00:29; Status DC Insulin Human Regular 100 unit/ Sodium Chloride 101 ml @ 0 mls/hr CONT PRN IV SEE I/O RECORD Last administered on 09/14/20at 23:47; Start 09/14/20 at 23:30; Stop 09/15/20 at 08:38; Status DC Ondansetron HCl (Zofran) 4 mg PRN Q8HRS PRN IV NAUSEA/VOMITING 1ST CHOICE; Start 09/14/20 at 23:30; Stop 09/15/20 at 23:29; Status DC Insulin Human Lispro (HumaLOG) 0-7 UNITS TIDACHC SQ Last administered on 09/17/20at 10:58; Start 09/15/20 at 11:30 Dextrose (Dextrose 50%-Water Syringe) 12.5 gm PRN Q15MIN PRN IV SEE COMMENTS; Start 09/15/20 at 08:45 Sodium Chloride (Normal Saline Flush) 3 ml QSHIFT PRN IV AFTER MEDS AND BLOOD DRAWS; Start 09/15/20 at 14:30 Sodium Chloride 1,000 ml @ 100 mls/hr Q10H IV Last administered on 09/16/20at 11:30; Start 09/15/20 at 14:30; Stop 09/16/20 at 12:33; Status DC Ondansetron HCl (Zofran) 4 mg PRN Q4HRS PRN IV NAUSEA/VOMITING; Start 09/15/20 at 14:30 Zolpidem Tartrate (Ambien) 5 mg PRN QHS PRN PO INSOMNIA Last administered on 09/15/20at 21:33; Start 09/15/20 at 14:30 Acetaminophen (Tylenol) 650 mg PRN Q4HRS PRN PO TEMP OVER 100.4F OR MILD PAIN; Start 09/15/20 at 14:30 Al Hydroxide/Mg Hydroxide (Mylanta Plus Xs) 30 ml PRN DAILY PRN PO HEARTBURN / GAS; Start 09/15/20 at 14:30 Clonidine HCl (Catapres) 0.1 mg PRN Q6HRS PRN PO SBP>160 OR DBP>90; Start 09/15/20 at 14:30 Sodium Monofluorophosphate (Fleet Adult) 133 ml PRN DAILY PRN [place] CONSTIPATION; Start 09/15/20 at 14:30 Docusate Sodium (Colace) 100 mg PRN BID PRN PO HARD STOOLS; Start 09/15/20 at 1 4:30 Albuterol Sulfate (Ventolin Neb Soln) 2.5 mg PRN Q4HRS PRN NEB SHORTNESS OF BREATH; Start 09/15/20 at 14:30 Guaifenesin (Robitussin) 200 mg PRN Q4HRS PRN PO COUGH; Start 09/15/20 at 14:30 Lorazepam (Ativan) 0.5 mg PRN Q4HRS PRN PO ANXIETY / AGITATION; Start 09/15/20 at 14:30 Enoxaparin Sodium (Lovenox 40mg Syringe) 40 mg Q24H SQ Last administered on 09/16/20at 15:07; Start 09/15/20 at 15:00 Amlodipine Besylate (Norvasc) 10 mg DAILY PO Last administered on 09/17/20at 10:43; Start 09/16/20 at 09:00 Aspirin (Ingrid Aspirin) 325 mg DAILYWBKFT PO Last administered on 09/17/20at 10:42; Start 09/16/20 at 08:00 Atorvastatin Calcium (Lipitor) 10 mg QHS PO Last administered on 09/16/20at 20:50; Start 09/15/20 at 21:00 Carvedilol (Coreg) 12.5 mg BIDWMEALS PO Last administered on 09/17/20at 10:43; Start 09/15/20 at 17:00 Diazepam (Valium) 5 mg TID PO Last administered on 09/15/20at 21:33; Start 09/15/20 at 15:00 Tamsulosin HCl (Flomax) 0.8 mg DAILY PO Last administered on 09/17/20at 10:43; Start 09/16/20 at 09:00 Losartan Potassium (Cozaar) 100 mg DAILY08 PO Last administered on 09/17/20at 10:42; Start 09/16/20 at 08:00 Insulin Glargine (Lantus Syringe) 10 unit QHS SQ Last administered on 09/15/20at 21:50; Start 09/15/20 at 21:00; Stop 09/16/20 at 12:33; Status DC Insulin Glargine (Lantus Syringe) 14 unit QHS SQ Last administered on 09/16/20at 20:57; Start 09/16/20 at 21:00 Non-Formulary Medication (Canagliflozin (Invokana)) 1 tab DAILY PO ; Start 09/17/20 at 09:00; Status UNV Linagliptin (Tradjenta) 5 mg DAILY PO Last administered on 09/17/20at 10:43; Start 09/17/20 at 09:00 Active Scripts Active Invokana (Canagliflozin) 300 Mg Tablet 1 Tab PO DAILY 90 Days Januvia (Sitagliptin Phosphate) 100 Mg Tablet 1 Tab PO DAILY 90 Days Valium (Diazepam) 5 Mg Tablet 5 Mg PO TID Flomax (Tamsulosin Hcl) 0.4 Mg Cap.er.24h 0.8 Mg PO DAILY Carvedilol (Carvedilol) 12.5 Mg Tablet 12.5 Mg PO BIDWMEALS Atorvastatin Calcium 10 Mg Tablet 10 Mg PO QHS Aspirin 325 Mg Tablet 325 Mg PO DAILYWBKFT Amlodipine Besylate 10 Mg Tablet 10 Mg PO DAILY Reported Losartan Potassium 100 Mg Tablet 100 Tab PO DAILY08 Meloxicam 7.5 Mg Tablet 7.5 Mg PO DAILY Vitals/I & O Vital Sign - Last 24 Hours 09/16/20 09/16/20 09/16/20 09/16/20 15:00 17:00 19:00 20:15 Temp 98.1 98.2 98.1 98.2 Pulse 65 88 81 Resp 16 17 B/P (MAP) 141/47 (78) 121/68 136/70 (92) Pulse Ox 96 96 O2 Delivery Room Air Room Air Room Air 09/16/20 09/17/20 09/17/20 09/17/20 23:00 03:00 07:00 10:42 Temp 98.1 98.2 97.7 98.1 98.2 97.7 Pulse 82 69 73 73 Resp 18 18 20 B/P (MAP) 154/86 (108) 139/71 (93) 158/86 (110) 158/86 Pulse Ox 98 95 96 O2 Delivery Room Air Room Air Room Air 09/17/20 09/17/20 10:43 10:43 Pulse 73 73 B/P (MAP) 158/86 158/86 Intake and Output 09/16/20 09/16/20 09/17/20 15:00 23:00 07:00 Intake Total 120 ml Balance 120 ml Justicifation of Admission Dx: Justifications for Admission: Justification of Admission Dx: Yes AIDE LENTZ MD Sep 17, 2020 11:02
[2020-09-17 11:15] VITALS: BP 151/83
[2020-09-17] MEDS ORDERED: INSU100V35 SQ (12:40)
[2020-09-17] MEDS ORDERED: INSU100V8 SQ (12:40)
[2020-09-17] MEDS ORDERED: DOCU-153 PO (12:40)
[2020-09-17] MEDS ORDERED: ACET325T9 PO (12:40)
--- NOTE | 2020-09-17 12:42 | DISCH ---
DISCHARGE INSTRUCTIONS Condition on Discharge Condition on Discharge: Stable Activity After Discharge Activity Instructions for Disc: Resume previous activity Exercise Instruction after Dis: Walk 10 min, 3 x per day, Exercise per therapy Driving Instructions after Dis: Do not drive today Diet after Discharge Diet after Discharge: Diabetic No Calorie Level Diet Texture: Regular Liquid Texture: Thin Liquid Wound Incision Care Wound/Incision Care: No wound care needed Checks after Discharge Checks after discharge: Check blood press - daily, Check blood sugar, ac/hs Contacting the DR. after DC Call your doctor for: If your condition worsens Follow-Up Follow up with: pcp in 5 days, keep glucose log ac. hs Treatment/Equipment after DC Adaptive Equipment Issued: None AIDE LENTZ MD Sep 17, 2020 12:42
[2020-09-17] MEDS: ENOXAPARIN 40 MG/0.4 ML SYRINGE. SQ SCH (15:00)
[2020-09-17 15:18] VITALS: BP 160/76
--- NOTE | 2020-09-17 15:30 | NUR ---
DISCHARGE INSTRUCTIONS GIVEN INCLUDING INFORMATION ON INSULIN ADMINISTRATION (HOW MUCH, WHEN AND WHAT TIMES TO INJECT), PATIENT DID NOT SHOW THIS SKI TOW OPERATOR HOW TO INJECT THE INSULIN BUT DID SHOW HOW TO DRAW UP THE INSULIN IN A SYRINGE. PATIENTS' SISTER AT THE BEDSIDE, QUESTIONS AND CONCERNS ANSWERED. SALINE LOCK REMOVED FROM PATIENTS' RIGHT AC PER THIS SKI TOW OPERATOR, BANDAGE APPLIED.
--- NOTE | 2020-09-17 16:05 | NUR ---
PATIENT LEAVES THE UNIT PER W/C AND ACCOMPANIED BY THIS MACHINES TECHNICIAN, EMOTIONAL SUPPORT GIVEN, FOLLOW UP APPOINTMENTS ENCOURAGED.
--- NOTE | 2020-09-17 20:32 | DS ---
DATE OF DISCHARGE: 09/17/2020 HISTORY OF PRESENT ILLNESS: This pleasant 59-year-old male with a known history of diabetes, was admitted after noting uncontrolled blood sugars was seen in the Emergency Room. He complained of vision blurring. Denied any headache, fever, or body aches. He apparently did not take his Januvia and Invokana since he was discharged on 08/30. He did get those medications filled 4 days prior to admission. His blood sugar remained out of control prior to admit . in the range of 600 Unfortunately, he is not following appropriate ADA diet and is eating too many calories in large portions., eating fast foods as well Family confirms by phone today that he often eats fast food, non ADA compliant PAST MEDICAL HISTORY: Significant for hyperlipidemia, cholesterol, and hypertension. SOCIAL HISTORY: Has used marijuana in the past. He smokes less than 1 pack per day. HOSPITAL COURSE: The patient did well with routine monitoring of blood sugars and Lantus 18 units was added at bedtime., glucose remained labile, and difficult to control and adjust his insulin needs, which prolonged his hospital stay LABORATORY DATA: Today's blood sugar is 279. Hemoglobin on admission 13.5. UA showed glycosuria, negative nitrites. Blood gas; pH is 7.39, pCO2 of 36, pO2 of 82. Urine drug screen in the past was negative. BUN is 12, creatinine is 1.1. Hemoglobin A1c is 12.3. DISCHARGE DIAGNOSES: 1. Uncontrolled diabetes secondary to diabetic medication noncompliance. His A1c is elevated at 12.3. 2. Hyperglycemia, improved. 3. Hyperlipidemia. 4. Pseudohyponatremia, resolved. 5. History of essential hypertension. 6. Morbid obesity. 7. Noncompliance with meds. The patient's insulin drip was discontinued on 09/15. He was instructed on an ADA diet and counseled nutrition. We increased the Lantus to 18 units at bedtime. Again, he appears to be consuming too many carbs and large serving portions. He will follow up with his primary care physician in 3-5 days.HE was instruced to stay with his family for 3-5 days after this hospital stay he has a home glucometer. his nurse today assured me he has been instructed on self insulin administration and precautions COMPLICATIONS: None. DISCHARGE CONDITION: Good. PROGNOSIS: Good with compliance. PROCEDURES: None. Discharge blood pressure 151/83, O2 sat 97% on room air. Discharge planning time is 32 minutes. AIDE LENTZ MD DR: TEJ/tay JOB#: [id number] / [id number] MEENU
[2020-09-17] MEDS ORDERED: INSULIN GLARGINE SYRINGE. SQ SCH (21:00)
== END 2020-09-17 16:05 | disposition home or self-care (01) | DRG 639 ==
LOC: ER 22:07 → 1 WEST ICU 23:27 → 5 NORTH 09-15 02:15
PROVIDERS: ADMIT Internal Medicine; ATTEND Internal Medicine
DX: E11.65 Type 2 diabetes mellitus with hyperglycemia (principal); E66.01 Morbid (severe) obesity due to excess calories; Z91.19 Patient's noncompliance with other medical treatment and regimen; E78.00 Pure hypercholesterolemia, unspecified; F17.210 Nicotine dependence, cigarettes, uncomplicated; E78.5 Hyperlipidemia, unspecified; I10 Essential (primary) hypertension; Z79.4 Long term (current) use of insulin; Z82.49 Family history of ischemic heart disease and other diseases of the circulatory system; Z91.14 Patient's other noncompliance with medication regimen; Z68.32 Body mass index [BMI] 32.0-32.9, adult
CPT/HCPCS: 36415; 36600; 71045; 80048; 80053; 81001; 82010; 82805; 82962; 83735; 84484; 85025; 93005; 96365; 96375; J1650; J1815; J7030; 99285-25; G0378

== ENCOUNTER → 2021-09-01 | Outpatient (CLI) | payer BC ==
[2021-08-01 12:00] VITALS: BP 128/58
[~2021-09-01] MED LIST changes: +ACET325T9 PO; +DOCU-148 PO; +INSU100V35 SQ; +INSU100V8 SQ
--- NOTE | 2021-09-01 16:00 | KCIC ---
MR CERVICAL SPINE WO DATE: 09/01/2021 1:39 PM INDICATION: CERVICAL STENOSIS/CERVICAL MYELOPATHY. S/P Trauma with Cspine fracture and anterior fusi on 07/2021. TECHNIQUE: Multiplanar multisequence magnetic resonance imaging of the cervical spine was performed w ithout administration of intravenous contrast using the standard cervical spine protocol. COMPARISON: 07/28/2021. FINDINGS: Postsurgical changes of ACDF at C4-C6. Straightening of the cervical lordosis. No acute fracture. Mild multilevel degenerative disc desicca tion and disc height loss. T3 hemangioma. Improved abnormal spinal cord signal, with residual T2/STIR hyperintensity and volume loss at C5-6. On the limited views of the cranial cavity and brain, the cerebellum and yamilet have normal morphology and signal characteristics. No Chiari malformation. No soft tissue abnormality. Normal signal voids are present in the vertebral arteries. Congenitally narrowed spinal canal. C2-3: No significant spinal canal stenosis or neural foraminal narrowing. C3-4: Disc osteophyte complex. Uncovertebral hypertrophy. Moderate spinal canal stenosis, previously moderate to severe. Severe right and moderate left neural foraminal narrowing. C4-5: Disc osteophyte complex. Uncovertebral hypertrophy. Moderate spinal canal stenosis, previously severe. Moderate bilateral neural foraminal narrowing. C5-6: Disc osteophyte complex. Uncovertebral hypertrophy. Moderate spinal canal stenosis, previously severe. Moderate right and mild left neural foraminal narrowing. C6-7: Disc osteophyte complex. Uncovertebral hypertrophy. Mild spinal canal stenosis, previously mode rate. Moderate bilateral neural foraminal narrowing. C7-T1: Uncovertebral hypertrophy. Severe bilateral neural foraminal narrowing. No spinal canal stenos is. IMPRESSION: Spinal canal stenosis and abnormal spinal cord signal have improved. Residual abnormal spinal cord si gnal with volume loss at C5-C6, likely myelomalacia. Electronically signed by: Freddy Alba MD (09/01/2021 3:58 PM) [id number]
== END ==
LOC: KCIC MRI 13:13
PROVIDERS: ATTEND Neurological Surgery
DX: M48.03 Spinal stenosis, cervicothoracic region (principal); M47.13 Other spondylosis with myelopathy, cervicothoracic region; M25.78 Osteophyte, vertebrae
CPT/HCPCS: 72141

== ENCOUNTER 2021-09-25 06:51 | Inpatient (IN) | payer BC ==
[~2021-09-25] VITALS: Ht 172.7 cm; Wt 96.3 kg
[2021-09-25] VITALS (7 sets, daily range): BP systolic 106–138; BP diastolic 57–84
--- NOTE | 2021-09-25 05:02 | PREOP HP ---
DATE OF SERVICE: 09/25/2021 PREOPERATIVE HISTORY AND PHYSICAL HISTORY OF PRESENT ILLNESS: The patient is a pleasant 60-year-old who underwent an ACDF at C4-C5 and C5-C6 in 07/2021 for severe cervical stenosis and myelopathy following a fall. He did well from that. He went to [facility] after that and he has noted significant improvement in his upper and lower extremity strength following that surgery. He does not have significant pain down. He does note that his hands feel cold to him. He has been working with occupational therapy, physical therapy. He says he is now able to feed himself. He does state that his right shoulder is painful at times and his left hamstring was tight. He is taking oxycodone, baclofen, and Lyrica. He is in a wheelchair and has a cervical collar. CURRENT MEDICATIONS: Insulin, amlodipine, hydralazine, aspirin, hydroxyzine, bacitracin, Flonase, NovoLog, MiraLax, atorvastatin, Colace, diazepam, magnesium, Mintox, Tylenol, baclofen, Lyrica, oxycodone. PAST MEDICAL HISTORY: Diabetes, hypertension, hyperlipidemia, osteoarthritis, GERD, status post left knee arthroplasty and TIA. PAST SURGICAL HISTORY: Left knee arthroplasty, ACDF at C4-C5, C5-C6 in 07/2021. IVC filter placement 07/2021. FAMILY HISTORY: Noncontributory, but does include cancer, diabetes and hypertension. 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 Does not smoke. . ALLERGIES: No known drug allergies. REVIEW OF SYSTEMS: A review of systems was performed and is noncontributory except that mentioned above. PHYSICAL EXAMINATION: GENERAL: Alert, pleasant, in no acute distress. HEENT: Head is normocephalic, atraumatic. SKIN: Warm and dry. NECK: Supple. No significant tenderness with palpation of posterior cervical region, well-healed incision. MUSCULOSKELETAL: Cervical paraspinal muscle bulk is normal. EXTREMITIES: No clubbing, cyanosis or edema. NEUROLOGIC: Alert and oriented x 3. Normal recent and remote memory, diffuse weakness in both hands, hip flexor strength is 2/5, otherwise 3-4/5 strength in the lower extremities, 4/5 strength in the triceps, sensory is intact to light touch in the upper and lower extremities except decreased sensation in both of his hands. He is seated in a wheelchair. IMAGING: I reviewed a cervical MRI scan. The stenosis has significantly improved; however, there is still multilevel deformation of the spinal cord with moderate stenosis. I feel it is prudent to perform a laminectomy and fusion to fully decompress the spinal cord and see if he can gain further improvement of function. ASSESSMENT AND PLAN: I do feel that further surgery including laminectomy and fusion to fully decompress the spinal cord is prudent and see if he can gain improvement in function. I did discuss this with the patient as well as his sister. I spoke with them about the technique and the risk and the expected postoperative course. I recommended a laminectomy C3 through C7 with instrumentation and facet fusion, C3-C6. They understand and would like to proceed. We will make arrangements. JOSEPH/WANG/YUE DR: Sathya TID: [id number] MEENU
[~2021-09-25 06:51] MED LIST changes: +ASPI-630 PO; +BACL10TA PO; +BUPIVACAINE-EPI 0.5% 30 ML VIAL KIT. ONE; +DEXAMETHASONE SOD PHOS 4 MG/ML VIAL ONE; +DICL100G24 TP; +FLUT16SP NS; +GELATIN SPONGE SIZE 100. ONE; +HYDR25TA PO; +INSU100V13 SQ; +KETOROLAC 60 MG/2 ML VIAL. ONE; +LIDO700A21 TP; +LIDOCAINE 2% PF 5 ML VIAL. ONE; +LINA5TAB PO; +MICO14CR2 TP; +MIDO2.5T PO; +ONDANSETRON PF 4 MG/2 ML VIAL. ONE; +OXYC5TAB2 PO; +PHENYLEPHRINE 10 MG/ML VIAL. ONE; +POLY2500 PO; +PREG100C PO; +PROCHLORPERAZINE 10 MG/2 ML VIAL. IVP PRN; +PROPOFOL 10 MG/ML (20ML) VIAL. IV ONE; +PROPOFOL 50 ML IV ONE; +REMIFENTANIL 1 MG VIAL. IV ONE; +SUCCINYLCHOLINE 200 MG/10 ML VIAL. ONE; +THROMBIN TOPICAL 20,000 UNIT SPRAY.SYRN KIT TP ONE; +ceFAZolin SODIUM 1 GM in IV NORMAL SALINE 1000ML BAG 1,000 ML IRR ONE; +fentaNYL PF VIAL 100 MCG/2 ML VIAL IVP PRN; +fentaNYL PF VIAL 100 MCG/2 ML VIAL ONE
[2021-09-25] MEDS ORDERED: GLYCOPYRROLATE 1 MG/5 ML VIAL. ONE (07:11)
[2021-09-25] MEDS: IV RINGERS,LACTATED 1000ML 1,000 ML IV SCH ×2 (07:55→12:54)
[2021-09-25] MEDS ORDERED: PROPOFOL 50 ML IV ONE (08:07)
[2021-09-25] MEDS ORDERED: KETAMINE HCL IN NACL, ISO-OSM 50 MG/5 ML SYRINGE ONE (08:15)
[2021-09-25 08:35] LABS: PROTHROMBIN TIME PATIENT 14.8 SEC (11.7-14.0)
[2021-09-25] MEDS ORDERED: GELATIN SPONGE SIZE 100. TP ONE (10:14)
[2021-09-25] MEDS ORDERED: BUPIVACAINE-EPI 0.5% 30 ML VIAL KIT. INJ ONE (10:14)
[2021-09-25] MEDS ORDERED: THROMBIN TOPICAL 20,000 UNIT SPRAY.SYRN KIT TP ONE (10:14)
[2021-09-25] MEDS ORDERED: KETOROLAC 60 MG/2 ML VIAL. INJ ONE (10:14)
[2021-09-25] MEDS ORDERED: HYDROmorphone 2 MG/ML INJ. ONE ×2 (10:44→14:54)
[2021-09-25] MEDS ORDERED: MAGNESIUM HYDROXIDE 2,400 MG/30 ML ORAL.SUSP. PO PRN (12:30)
[2021-09-25] MEDS ORDERED: 0.9 % SODIUM CHLORIDE 10 ML DISP.SYRIN. IV PRN (12:30)
[2021-09-25] MEDS ORDERED: MAG HYDROX/ALUMINUM HYD/SIMETH 30 ML ORAL.SUSP PO PRN (12:30)
[2021-09-25] MEDS ORDERED: ACETAMINOPHEN 325 MG TABLET. PO PRN (12:30)
[2021-09-25] MEDS ORDERED: MIDODRINE 2.5 MG TABLET PO PRN (12:30)
[2021-09-25] MEDS ORDERED: IV DEXTROSE 5% 250 ML BAG. IV PRN (12:30)
[2021-09-25] MEDS ORDERED: CALCIUM CARBONATE 500 MG TAB.CHEW PO PRN (12:30)
[2021-09-25] MEDS ORDERED: NALOXONE 0.4 MG/ML VIAL. IV PRN (12:30)
[2021-09-25] MEDS ORDERED: DEXTROSE 50% 25 GM / 50ML DISP.SYRIN. IV PRN (12:30)
[2021-09-25] MEDS ORDERED: DICLOFENAC SODIUM 1% TOPICAL GEL 100GM TUBE. TP PRN (13:15)
[2021-09-25] MEDS: INSULIN LISPRO 100 UNIT/ML 3ML VIAL for OP,RR ONLY. SQ PRN ×2 (13:26→17:01)
[2021-09-25] MEDS ORDERED: fentaNYL PF VIAL 100 MCG/2 ML VIAL ONE (13:26)
[2021-09-25] MEDS: fentaNYL PF VIAL 100 MCG/2 ML VIAL IVP PRN ×4 (13:30→23:49)
--- NOTE | 2021-09-25 13:34 | OP ---
DATE OF SURGERY: 09/25/2021 PREOPERATIVE DIAGNOSIS: Cervical spinal stenosis, C3 through C7. POSTOPERATIVE DIAGNOSIS: Cervical spinal stenosis, C3 through C7. OPERATION PERFORMED: Cervical laminectomy, C3, C4, C5, C6, partial C7 with lateral mass fusion C3 through C7, Posterior instrumentation C3-C7 on the left and posterior instrumentation C-C6 on the right. The operation was done with EMG monitoring, SSEP monitoring, fluoroscopy, microscopic dissection, motor evoked potentials. SURGEON: Cristóbal Collier M.D. ACCOUNT INSTALLATION SPECIALIST: VANESSA Messina, assisted with the surgery. She assisted with the exposure, the placement of the instrumentation, the laminectomy and the closure. OPERATIVE INDICATIONS: The patient is a pleasant 60-year-old who about 2 months ago suffered a significant cervical spine injury. He underwent an emergent anterior discectomy and fusion at C4-C5 and C5-C6 and he slowly began to improve. He has been through rehab. On imaging studies, there still remains [id number] cervical stenosis throughout the cervical spine and I felt to give him the absolute best chance of recovery would be worthwhile to perform a laminectomy C3 through C7 to fully decompress the spinal cord and give him every opportunity to improve. I spoke with him and his family about the surgery, the risks, technique and expected postoperative course. They wished for me to go ahead. DESCRIPTION OF PROCEDURE: Following general endotracheal anesthesia, the patient was positioned prone on a Tommie table in Pichardo pins. His posterior cervical region was then clipped, prepped and draped in standard fashion. ZAHRAA hose and AV impulse boots were applied for DVT prophylaxis. The microscope was draped, fluoroscopy draped and brought into field. Monitoring was established. Ancef 2 grams was given less than 1 hour prior to initiation of the surgery. Using fluoroscopic guidance, an incision was made in the midline from C2-C7. I dissected the skin, subcutaneous tissue, reflected the paraspinal muscles and placed a self-retaining retractor. I then placed engine pilot holes in C3, C4, C5, C6, C7 and placed screws and rods on each side and also excoriated the facets. On the right side at C7, I did not have excellent purchase and the screw was placed there, but otherwise, the screws in the other locations were perfect. I did trim the spinous process and placed this over the excoriated facet for fusion. I then, using a high-speed air drill, I burred down 2 troughs, 1 on each side. I then used the micro Kerrisons to trim and remove any residual bone. This immediately allowed the lamina to move posteriorly. I then continued and trimmed away the ligament, freeing up the lamina and gently peeled it away inferior to superior being very careful to avoid any contact with the cord. I then irrigated with antibiotic solution. At this point, I did lay Gelfoam over both lateral gutters. There was no significant hemorrhage. I did torque the rods that were attached to the screws. On the right side, I used a 70 mm oh, on the left, a 60 mm oh. I irrigated copiously with antibiotic solution. I removed the retractors, obtained hemostasis in the muscle. Then, I closed the wound in layers with absorbable suture and the skin was closed with skin favio. Films looked excellent. I was quite pleased with the surgery. JED/ISAAC DR: Lima TID: [id number] MEENU
[2021-09-25] MEDS ORDERED: MORPHINE SULFATE 2 MG/ML INJ. ONE (14:04)
[2021-09-25] MEDS: MORPHINE SULFATE 2 MG/ML INJ. IVP PRN ×2 (14:06→14:21)
[2021-09-25] MEDS: HYDROmorphone 2 MG/ML INJ. IVP PRN ×3 (14:55→16:53)
[2021-09-25] MEDS: oxyCODONE IR 5 MG TABLET PO PRN ×2 (15:41→21:57)
[2021-09-25] MEDS: POTASSIUM CL 20MEQ-0.45% NACL 1,000 ML IV SCH (18:26)
[2021-09-25] MEDS: LINAGLIPTIN 5 MG TABLET PO SCH (18:26)
[2021-09-25] MEDS: diazePAM 5 MG TABLET PO SCH ×2 (18:26→23:49)
[2021-09-25] MEDS: ceFAZolin SODIUM IV Push 1 GM VIAL. IVP SCH (19:35)
[2021-09-25] MEDS: METHYL SALICYLATE/MENTHOL TOPICAL CREAM 57GM TUBE. TP PRN (19:35)
[2021-09-25] MEDS: PREGABALIN 50 MG CAPSULE PO SCH (20:06)
[2021-09-25] MEDS: ATORVASTATIN CALCIUM 10 MG TABLET. PO SCH (20:06)
[2021-09-25] MEDS: BACLOFEN 10 MG TABLET. PO SCH (20:06)
[2021-09-25] MEDS: LIDOCAINE (700MG/PATCH) PATCH. TP SCH ×2 (20:06→21:00)
[2021-09-25] MEDS: MICONAZOLE NITRATE 2% TOPICAL CREAM 30GM TUBE. TP SCH (20:07)
[2021-09-25] MEDS: POLYETHYLENE GLYCOL 3350 17 GM PACKET. PO SCH (21:01)
[2021-09-25] MEDS: INSULIN GLARGINE SYRINGE. SQ SCH (22:01)
[2021-09-26] VITALS (17 sets, daily range): BP systolic 86–136; BP diastolic 50–77
[2021-09-26] MEDS: ceFAZolin SODIUM IV Push 1 GM VIAL. IVP SCH ×2 (04:14→10:00)
[2021-09-26] MEDS: POTASSIUM CL 20MEQ-0.45% NACL 1,000 ML IV SCH (07:00)
[2021-09-26] MEDS ORDERED: DEXAMETHASONE SOD PHOS 4 MG/ML VIAL IVP ONE (07:30)
[2021-09-26] MEDS: MUPIROCIN 2 % OINTMENT 22GM TUBE. NS SCH ×2 (07:33→21:00)
[2021-09-26] MEDS: LOSARTAN POTASSIUM 25 MG TABLET. PO SCH (07:33)
[2021-09-26] MEDS: FLUTICASONE 50MCG/NASAL SPRAY 16GM BOTTLE. NS SCH (07:34)
[2021-09-26 08:10] LABS: HEMATOCRIT 29.6 % (39.0-53.0); HEMOGLOBIN 9.5 g/dL (13.0-17.5); RED BLOOD COUNT 3.45 x10^6/uL (4.30-5.70); RED CELL DISTRIBUTION WIDTH 13.6 % (11.5-14.5); WHITE BLOOD COUNT 12.7 x10^3/uL (4.0-11.0)
[2021-09-26] MEDS: LINAGLIPTIN 5 MG TABLET PO SCH (08:30)
[2021-09-26] MEDS: ASPIRIN CHEWABLE 81 MG TABLET. PO SCH (08:30)
[2021-09-26] MEDS: PREGABALIN 50 MG CAPSULE PO SCH ×2 (08:30→20:23)
[2021-09-26] MEDS: BACLOFEN 10 MG TABLET. PO SCH ×2 (08:30→21:00)
[2021-09-26] MEDS: MICONAZOLE NITRATE 2% TOPICAL CREAM 30GM TUBE. TP SCH ×3 (09:00→21:00)
[2021-09-26] MEDS: diazePAM 5 MG TABLET PO SCH ×3 (09:00→20:23)
[2021-09-26] MEDS: POLYETHYLENE GLYCOL 3350 17 GM PACKET. PO SCH (09:00)
[2021-09-26] MEDS: fentaNYL PF VIAL 100 MCG/2 ML VIAL IVP PRN ×4 (09:28→23:22)
--- NOTE | 2021-09-26 09:42 | RAD ---
CT CERVICAL SPINE WO History: Pain, increased numbness, tingling, decreased range of motion. Comparison: MRI cervical spine 09/01/2021. Fluoroscopy for laminectomy 09/25/2021. CTA head and neck 05/2021 Technique: Noncontrast CT of the cervical spine. Findings: There are 7 nonrib-bearing cervical vertebral segments. Redemonstrated ACDF from C4-C6. There have been new postsurgical features from posterior spinal fixation C3-C7 on the left and C3-C6 on the right. C3-C6 laminectomies. Alignment remains anatomic. No fracture or a component malalignmen t identified. There is a small amount of extradural air at the level of C2 consistent with recent instrumentation. Evaluation of the spinal canal at the surgical levels is significantly limited by metallic streak art ifact. Question posterior epidural fluid collection at the level of C2-C3 measuring approximately 4 m m thickness and narrowing the thecal sac (sagittal image 28) to approximately 4-5 mm AP. No preverteb ral soft tissue swelling. There is a fluid tract in the posterior soft tissues consistent with recent instrumentation. Surgical clips in the vertical orientation along the posterior neck. Intervertebral disc heights are relatively preserved with mild narrowing at C6-C7. Left neural forami nal stenosis at C6-C7. Right neural foraminal stenosis at C3-C4. Limited evaluation of the upper chest is unremarkable. Impression: 1. Recent postsurgical features from C3-C7 posterior spinal fixation with C3-C6 laminectomies. 2. Metallic artifact significantly limits evaluation of the spinal canal at the surgical levels. Que stion posterior epidural hematoma at the level of C2-C3 measuring 4 mm thickness, narrowing the theca l sac to approximately 4-5 mm AP. This is not well visualized and could potentially represent imaging artifact. 3. Degenerative disc and facet disease causing foraminal stenosis on the right at C3-C4 and on the l eft at C6-C7. Findings discussed with patient's nurse Mirella at 09/26/2021 9:39 AM. FOR INTERNAL CODING PURPOSES RESULT CODE: (C) ------- Exposure: One or more of the following individualized dose reduction techniques were utilized for thi s examination: 1. Automated exposure control 2. Adjustment of the mA and/or kV according to patient size 3. Use of iterative reconstruction technique. Electronically signed by: Joon Hamm MD (09/26/2021 9:40 AM) [id number]
[2021-09-26] MEDS ORDERED: ceFAZolin SODIUM IV Push 1 GM VIAL. IVP ONE (10:05)
[2021-09-26] MEDS ORDERED: LIDOCAINE 2% PF 5 ML VIAL. ONE (10:18)
[2021-09-26] MEDS ORDERED: DEXAMETHASONE SOD PHOS 4 MG/ML VIAL ONE ×2 (10:18→11:04)
[2021-09-26] MEDS ORDERED: SEVOFLURANE 31 TO 60 MINUTES. IH ONE (10:18)
[2021-09-26] MEDS ORDERED: ONDANSETRON PF 4 MG/2 ML VIAL. ONE (10:18)
[2021-09-26] MEDS ORDERED: PROPOFOL 10 MG/ML (20ML) VIAL. IV ONE (10:18)
[2021-09-26] MEDS ORDERED: ROCURONIUM 50 MG/5 ML VIAL. ONE (10:19)
[2021-09-26] MEDS ORDERED: fentaNYL PF VIAL 100 MCG/2 ML VIAL ONE ×2 (10:19→14:23)
[2021-09-26] MEDS: INSULIN LISPRO 100 UNIT/ML 3ML VIAL for OP,RR ONLY. SQ PRN ×3 (10:29→15:11)
[2021-09-26] MEDS ORDERED: KETOROLAC 60 MG/2 ML VIAL. ONE (10:30)
[2021-09-26] MEDS ORDERED: THROMBIN TOPICAL 20,000 UNIT SPRAY.SYRN KIT TP ONE (10:30)
[2021-09-26] MEDS ORDERED: SUGAMMADEX SODIUM 200 MG/2 ML VIAL. IVP ONE (10:30)
[2021-09-26] MEDS ORDERED: ceFAZolin SODIUM 1 GM in IV NORMAL SALINE 1000ML BAG 1,000 ML IRR ONE (10:30)
[2021-09-26] MEDS ORDERED: BUPIVACAINE-EPI 0.5% 30 ML VIAL KIT. ONE (10:30)
[2021-09-26] MEDS ORDERED: GELATIN SPONGE SIZE 100. ONE (10:30)
[2021-09-26] MEDS ORDERED: VANCOMYCIN 1 GM in IV NORMAL SALINE 250ML 250 ML IV PRN (10:45)
[2021-09-26] MEDS ORDERED: GLYCOPYRROLATE 1 MG/5 ML VIAL. ONE (11:04)
--- NOTE | 2021-09-26 11:25 | CONS ---
DATE OF CONSULTATION: 09/26/2021 CHIEF COMPLAINT: Postop cervical laminectomy, request for evaluation and treatment of comorbidities. HISTORY OF PRESENT ILLNESS: The patient is a pleasant 60-year-old male who underwent a cervical laminectomy yesterday. We have been requested for postop medical evaluation and treatment of comorbidities. PAST MEDICAL HISTORY: Cervical laminectomy as per above, diabetes, hypertension, hyperlipidemia, arthritis, GERD, left knee arthroplasty and TIA and also IVC filter and prior ACDF at C4 through C5 and C5 through C6 in 07/2021. ALLERGIES: None. FAMILY HISTORY: Diabetes. SOCIAL HISTORY: Does not drink, smoke or take drugs. He is . 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 MEDICATIONS: Reviewed. Please see the MRAD. REVIEW OF SYSTEMS: GENERAL: No history of weight change, weakness or fevers. SKIN: No bruising, hair changes or rashes. HEENT: He complains of neck pain. EYES: No blurred, double or loss of vision. NOSE AND THROAT: No history of nosebleeds, hoarseness or sore throat. HEART: No history of palpitations, chest pain or shortness of breath on exertion. LUNGS: Denies cough, hemoptysis, wheezing or shortness of breath. GASTROINTESTINAL: Denies changes in appetite, nausea, vomiting, diarrhea or constipation. GENITOURINARY: No history of frequency, urgency, hesitancy or nocturia. NEUROLOGIC: Denies history of numbness, tingling, tremor or weakness. PSYCHIATRIC: No history of panic, anxiety or depression. ENDOCRINE: No history of heat or cold intolerance, polyuria or polydipsia. EXTREMITIES: Denies muscle weakness, joint pain, pain on walking or stiffness. PHYSICAL EXAMINATION: VITALS: Within normal limits and are stable. GENERAL: No apparent distress. Alert and oriented. HEENT: He has clean, dry and intact dressing on his posterior neck. Eyes: Extraocular muscles are intact, pupils are equally round and reactive to light and accommodation. MUSCULOSKELETAL: Well developed, well nourished, good range of motion. ENDOCRINE: No thyromegaly was palpated. LYMPHATICS: No cervical chain or axillary nodes were noted. HEMATOPOIETIC: No bruising. NECK: Supple, no JVD, no thyromegaly was noted. LUNGS: Clear to auscultation in all lung fisher without rhonchi or wheezing. HEART: RRR, S1, S2 present. Peripheral pulses intact, no obvious murmurs were noted. ABDOMEN: Soft, nontender. Positive bowel sounds no organomegaly, normal bowel sounds. EXTREMITIES: Without any cyanosis, clubbing, or edema. Pedal pulses intact, Homans sign is negative. NEUROLOGIC: Normal speech, normal tone. A and O x 3, moves all extremities, no obvious focal deficits. PSYCHIATRIC: Normal affect, normal mood. Stable. SKIN: No ulcerations or rashes, good skin turgor, no jaundice. VASCULAR: Good capillary refill, neurovascular bundle appears to be intact. LABORATORY DATA: Hemoglobin is 9.5. Glucose 184. ASSESSMENT AND PLAN: Postoperative cervical laminectomy. We are going to resume his home meds plus the sliding scale. Wound care, PT, OT. DVT prophylaxis. Full code. Continue the current dexamethasone and cefazolin. Suspect he might need snf. CAS DR: Debra TID: [id number]
[2021-09-26] MEDS ORDERED: HYDROmorphone 2 MG/ML INJ. ONE (11:56)
[2021-09-26 12:38] LABS: PROTHROMBIN TIME PATIENT 15.6 SEC (11.7-14.0)
[2021-09-26 14:21] LABS: CALCIUM 8.1 mg/dL (8.5-10.1); GFR 91.9; POTASSIUM 5.2 mmol/L (3.5-5.1)
--- NOTE | 2021-09-26 14:21 | OP ---
DATE OF SURGERY: 09/26/2021 PREOPERATIVE DIAGNOSIS: 1. Cervical epidural hematoma with sublaminar extension inferior C2, superior C7 2. Suboptimal positioning of right C3, C4 lateral mass screws POSTOPERATIVE DIAGNOSIS: 1. Cervical epidural hematoma with sublaminar extension inferior C2, superior C7 2. Suboptimal positioning of right C3, C4 lateral mass screws OPERATION PERFORMED: 1. Posterior cervical exploration with evacuation of cervical epidural hematoma. 2. Extension of laminectomy inferior C2, superior C7. 3. Repositioning of the C3 and C4 right lateral mass screws. SURGEON: Cristóbal Collier M.D. RETAIL LOSS PREVENTION INVESTIGATOR: quoc Messina assisted with the surgery. She assisted with the exposure, the removal of the epidural as well as closure. OPERATIVE INDICATIONS: The patient yesterday underwent a cervical laminectomy, which was uncomplicated. He did very well from that. He was noted this morning to be weaker than preoperatively and we proceeded immediately with a cervical CT scan in which there was a suspicion of an epidural hematoma. I discussed with the patient and his sister the rationale for exploration and hematoma removal. They understood and they wished me to go ahead. DESCRIPTION OF PROCEDURE: Following general endotracheal anesthesia, the patient was positioned prone in a neutral position. His skin favio removed and the posterior cervical region was then prepped and draped in the standard fashion. ZAHRAA hose and AV impulse boots were present. SCDs were present and functioning. The wound was then gently and carefully opened and we worked down through the skin, subcutaneous tissue, fascia and then encountered a large epidural hematoma. I did not find significant pressure per se. I removed the hematoma and it did intercalate itself superiorly under the inferior portion of the C2 lamina and inferiorly under the superior portion of the residual C7 lamina. I removed the hematoma. The wound was, at the time of opening and after the hematoma was removed, significantly hemorrhagic with multiple regions oozing, which was definitely not present when we closed 24 hours ago. I irrigated copiously throughout the operation. I used a high-speed air drill and the rongeurs to carry my bone work superiorly farther into of the C2 spinous process and lamina until I could visualize the dura without any evidence of clot and the same inferiorly with C7 I worked inferiorly to make sure any clot between the lamina and the spinal cord was removed. I then went to the lateral mass screws on the right side and removed the nuts and oh. This allowed me to reposition the C3 and C4 screws. I then replaced the nuts and rods and sequentially torqued the construct. I then laid Gelfoam along the gutters. I did use hemostatic agents as well to help with hemostasis. The bipolar cautery was employed and as I worked, the hemostasis became excellent. I did place a drain in the epidural space and brought out through a separate stab incision. I then closed the wound in layers with absorbable suture and the skin was closed with skin favio. The surgery went very well and the patient was stable following surgery. SAM/MARINE/ISAAC DR: Lima TID: [id number] MEENU
[2021-09-26] MEDS ORDERED: PROCHLORPERAZINE 10 MG/2 ML VIAL. IVP PRN ×2 (14:30)
[2021-09-26] MEDS ORDERED: MORPHINE SULFATE 2 MG/ML INJ. IVP PRN ×2 (14:30)
[2021-09-26] MEDS ORDERED: fentaNYL PF VIAL 100 MCG/2 ML VIAL IVP PRN ×4 (14:30)
[2021-09-26] MEDS ORDERED: IV RINGERS,LACTATED 1000ML 1,000 ML IV SCH ×2 (14:30)
[2021-09-26] MEDS ORDERED: HYDROmorphone 2 MG/ML INJ. IVP PRN ×2 (14:30)
[2021-09-26 14:47] LABS: HEMATOCRIT 27.4 % (39.0-53.0); HEMOGLOBIN 8.9 g/dL (13.0-17.5); RED BLOOD COUNT 3.17 x10^6/uL (4.30-5.70); RED CELL DISTRIBUTION WIDTH 13.8 % (11.5-14.5); WHITE BLOOD COUNT 12.8 x10^3/uL (4.0-11.0)
[2021-09-26] MEDS: IV 1/2 NORMAL SALINE 1,000 ML IV SCH (17:35)
[2021-09-26] MEDS: DEXAMETHASONE SOD PHOS 4 MG/ML VIAL IVP SCH ×2 (18:12→23:21)
[2021-09-26] MEDS: oxyCODONE IR 5 MG TABLET PO PRN (18:21)
[2021-09-26] MEDS: ATORVASTATIN CALCIUM 10 MG TABLET. PO SCH (20:15)
[2021-09-26] MEDS: INSULIN GLARGINE SYRINGE. SQ SCH (21:00)
[2021-09-26] MEDS: LIDOCAINE (700MG/PATCH) PATCH. TP SCH (21:00)
[2021-09-27] VITALS (30 sets, daily range): BP systolic 88–146; BP diastolic 42–71
[2021-09-27] MEDS: oxyCODONE IR 5 MG TABLET PO PRN ×4 (00:08→21:19)
[2021-09-27] MEDS: fentaNYL PF VIAL 100 MCG/2 ML VIAL IVP PRN ×6 (01:53→23:48)
[2021-09-27] MEDS ORDERED: ceFAZolin SODIUM IV Push 1 GM VIAL. IVP SCH (06:00)
[2021-09-27] MEDS ORDERED: VANCOMYCIN 1 GM in IV NORMAL SALINE 250ML 250 ML IV ONE (06:00)
[2021-09-27] MEDS: DEXAMETHASONE SOD PHOS 4 MG/ML VIAL IVP SCH ×4 (06:26→23:48)
[2021-09-27] MEDS: IV 1/2 NORMAL SALINE 1,000 ML IV SCH ×2 (07:29→15:41)
[2021-09-27 07:55] LABS: BASO % 0 % (0-3); EOS % 0 % (0-3); HEMATOCRIT 21.6 % (39.0-53.0); LYMPH # 1.2 x10^3/uL (1.0-4.8); LYMPH % 10 % (24-48); MEAN CORPUSCULAR HEMOGLOBIN 28 pg (25-35); MEAN CORPUSCULAR HGB CONC 32 g/dL (31-37); MEAN CORPUSCULAR VOLUME 86 fL (79-100); MONO # 1.5 x10^3/uL (0.0-1.1); MONO % 12 % (0-9); NEUT # 9.4 x10^3/uL (1.8-7.7); NEUT % 78 % (31-73); PLATELET COUNT 119 x10^3/uL (140-400); RED BLOOD COUNT 2.52 x10^6/uL (4.30-5.70); RED CELL DISTRIBUTION WIDTH 13.8 % (11.5-14.5); WHITE BLOOD COUNT 12.1 x10^3/uL (4.0-11.0)
[2021-09-27] MEDS: LOSARTAN POTASSIUM 25 MG TABLET. PO SCH (08:00)
[2021-09-27 08:32] LABS: CALCIUM 7.9 mg/dL (8.5-10.1); GFR 91.9; POTASSIUM 4.8 mmol/L (3.5-5.1)
[2021-09-27] MEDS: LINAGLIPTIN 5 MG TABLET PO SCH (08:54)
[2021-09-27] MEDS: diazePAM 5 MG TABLET PO SCH ×3 (08:54→21:18)
[2021-09-27] MEDS: POLYETHYLENE GLYCOL 3350 17 GM PACKET. PO SCH (08:54)
[2021-09-27] MEDS: PREGABALIN 50 MG CAPSULE PO SCH ×2 (08:55→21:19)
[2021-09-27] MEDS: FLUTICASONE 50MCG/NASAL SPRAY 16GM BOTTLE. NS SCH (08:59)
[2021-09-27] MEDS: BACLOFEN 10 MG TABLET. PO SCH ×2 (09:00→21:18)
[2021-09-27] MEDS: ASPIRIN CHEWABLE 81 MG TABLET. PO SCH (09:00)
[2021-09-27] MEDS: MICONAZOLE NITRATE 2% TOPICAL CREAM 30GM TUBE. TP SCH ×4 (09:01→21:21)
[2021-09-27] MEDS: MUPIROCIN 2 % OINTMENT 22GM TUBE. NS SCH ×2 (09:02→21:21)
--- NOTE | 2021-09-27 11:10 | PDOC ---
[facility] PROGRESS NOTE Date of Service DOS: DATE: 09/27/21 TIME: 11:08 Chief Complaint Chief Complaint Postoperative cervical laminectomy. We are going to resume his home meds plus the sliding scale. Wound care, PT, OT. DVT prophylaxis. Full code. Continue the current dexamethasone and cefazolin. Suspect he might need group home. Transfuse 1 unit packed red blood cells today History of Present Illness History of Present Illness 09/27 Patient evaluated examined at bedside. Was resting in bed easily awoken able to answer some questions. Some movement in his upper extremities but very limited in lower. Transfuse 1 unit today. Plan discussed with RN. Vitals/I&O Vitals/I&O: Vital Signs Date Time Temp Pulse Resp B/P (MAP) Pulse Ox O2 Delivery O2 Flow Rate FiO2 09/27/21 10:55 98.0 93 16 113/54 98.0 09/27/21 10:00 98 Nasal Cannula 1.0 I & O 09/26/21 09/26/21 09/27/21 15:00 23:00 07:00 Intake Total 1350 ml 1020 ml 250 ml Output Total 45 ml 685 ml 150 ml Balance 1305 ml 335 ml 100 ml Physical Exam General: Alert, Oriented X3, Cooperative Heart: Regular rate Lungs: Clear Abdomen: Normal bowel sounds, Soft, No tenderness Extremities: No edema, Normal pulses Skin: No significant lesion Labs Labs: Laboratory Tests Test 09/26/21 12:20 09/26/21 14:06 09/26/21 14:40 09/26/21 15:03 Prothrombin Time 15.6 SEC (11.7-14.0) Prothromb Time International Ratio 1.2 (0.8-1.1) Activated Partial Thromboplast Time 29 SEC (24-38) Glucose (Fingerstick) 199 mg/dL (70-99) 207 mg/dL (70-99) White Blood Count 12.8 x10^3/uL (4.0-11.0) Red Blood Count 3.17 x10^6/uL (4.30-5.70) Hemoglobin 8.9 g/dL (13.0-17.5) Hematocrit 27.4 % (39.0-53.0) Mean Corpuscular Volume 86 fL (79-100) Mean Corpuscular Hemoglobin 28 pg (25-35) Mean Corpuscular Hemoglobin Concent 32 g/dL (31-37) Red Cell Distribution Width 13.8 % (11.5-14.5) Platelet Count 118 x10^3/uL (140-400) Test 09/26/21 20:25 09/27/21 07:00 09/27/21 08:31 Glucose (Fingerstick) 179 mg/dL (70-99) 178 mg/dL (70-99) White Blood Count 12.1 x10^3/uL (4.0-11.0) Red Blood Count 2.52 x10^6/uL (4.30-5.70) Hemoglobin 7.0 g/dL (13.0-17.5) Hematocrit 21.6 % (39.0-53.0) Mean Corpuscular Volume 86 fL (79-100) Mean Corpuscular Hemoglobin 28 pg (25-35) Mean Corpuscular Hemoglobin Concent 32 g/dL (31-37) Red Cell Distribution Width 13.8 % (11.5-14.5) Platelet Count 119 x10^3/uL (140-400) Neutrophils (%) (Auto) 78 % (31-73) Lymphocytes (%) (Auto) 10 % (24-48) Monocytes (%) (Auto) 12 % (0-9) Eosinophils (%) (Auto) 0 % (0-3) Basophils (%) (Auto) 0 % (0-3) Neutrophils # (Auto) 9.4 x10^3/uL (1.8-7.7) Lymphocytes # (Auto) 1.2 x10^3/uL (1.0-4.8) Monocytes # (Auto) 1.5 x10^3/uL (0.0-1.1) Eosinophils # (Auto) 0.0 x10^3/uL (0.0-0.7) Basophils # (Auto) 0.0 x10^3/uL (0.0-0.2) Sodium Level 138 mmol/L (136-145) Potassium Level 4.8 mmol/L (3.5-5.1) Chloride Level 103 mmol/L (98-107) Carbon Dioxide Level 27 mmol/L (21-32) Anion Gap 8 (6-14) Blood Urea Nitrogen 27 mg/dL (8-26) Creatinine 1.0 mg/dL (0.7-1.3) Estimated GFR (Cockcroft-Gault) 91.9 Glucose Level 187 mg/dL (70-99) Calcium Level 7.9 mg/dL (8.5-10.1) Comment Review of Relevant I have reviewed the following items michelle (where applicable) has been applied. Medications: Current Medications Medications (Trade) Dose Ordered Sig/Vernon Route PRN Reason Start Time Stop Time Status Last Admin Dose Admin Ringer's Solution 1,000 ml @ 30 mls/hr Q24H IV 09/26/21 14:30 09/26/21 21:00 DC 09/26/21 15:18 Dexamethasone Sodium Phosphate (Decadron) 4 mg Q6HRS IVP 09/26/21 18:00 09/27/21 06:26 Sodium Chloride 1,000 ml @ 100 mls/hr Q10H IV 09/26/21 17:30 09/27/21 07:29 Vancomycin HCl 1 gm/Sodium Chloride 250 ml @ 166.667 mls/hr 1X ONCE IV 09/27/21 06:00 09/27/21 07:29 DC 09/27/21 06:27 Justifications for Admission Other Justification uncontrolled diabetes STACY LÓPEZ MD Sep 27, 2021 11:10
--- NOTE | 2021-09-27 12:55 | PDOC ---
PROGRESS NOTES Date of Service DATE: 09/27/21 TIME: 12:46 Subjective Subjective POD #1 S/P Evacuation of epidural hematoma, s/p cervical laminectomy and fusion 09/25/21 awake, alert pain well controlled sister at bedside Objective Objective Vital Signs Date Time Temp Pulse Resp B/P (MAP) Pulse Ox O2 Delivery O2 Flow Rate FiO2 09/27/21 12:16 16 97 Nasal Cannula 1.0 09/27/21 12:10 97.7 90 119/57 97.7 Intake and Output 09/27/21 07:00 Intake Total 2620 ml Output Total 880 ml Balance 1740 ml Intake Oral 270 ml IV Total 1850 ml Other 500 ml Output Urine Total 725 ml Drainage Total 155 ml Physical Exam General: Alert, Oriented X3, Cooperative Neuro: Normal speech, Other (sensation improved in upper and lower extremites, moves upper extremities with 3/5 strength, hand grasps trace) Skin: Other (dressing changed, ozzing, favio intact, drain in place- output noted) Plan Plan of Care labs noted transfusing PRBCs now keep in ICU D/W RN Comment Review of Relevant I have reviewed the following items michelle (where applicable) has been applied. Labs Laboratory Tests Test 09/25/21 13:21 09/25/21 16:47 09/25/21 20:54 09/26/21 00:33 Glucose (Fingerstick) 149 mg/dL (70-99) 175 mg/dL (70-99) 146 mg/dL (70-99) 185 mg/dL (70-99) Test 09/26/21 06:34 09/26/21 07:35 09/26/21 10:19 09/26/21 12:20 Glucose (Fingerstick) 170 mg/dL (70-99) 184 mg/dL (70-99) White Blood Count 12.7 x10^3/uL (4.0-11.0) Red Blood Count 3.45 x10^6/uL (4.30-5.70) Hemoglobin 9.5 g/dL (13.0-17.5) Hematocrit 29.6 % (39.0-53.0) Mean Corpuscular Volume 86 fL (79-100) Mean Corpuscular Hemoglobin 28 pg (25-35) Mean Corpuscular Hemoglobin Concent 32 g/dL (31-37) Red Cell Distribution Width 13.6 % (11.5-14.5) Platelet Count 117 x10^3/uL (140-400) Sodium Level 136 mmol/L (136-145) Potassium Level 5.2 mmol/L (3.5-5.1) Chloride Level 101 mmol/L (98-107) Carbon Dioxide Level 25 mmol/L (21-32) Anion Gap 10 (6-14) Blood Urea Nitrogen 27 mg/dL (8-26) Creatinine 1.0 mg/dL (0.7-1.3) Estimated GFR (Cockcroft-Gault) 91.9 Glucose Level 180 mg/dL (70-99) Calcium Level 8.1 mg/dL (8.5-10.1) Prothrombin Time 15.6 SEC (11.7-14.0) Prothromb Time International Ratio 1.2 (0.8-1.1) Activated Partial Thromboplast Time 29 SEC (24-38) Test 09/26/21 14:06 09/26/21 14:40 09/26/21 15:03 09/26/21 20:25 Glucose (Fingerstick) 199 mg/dL (70-99) 207 mg/dL (70-99) 179 mg/dL (70-99) White Blood Count 12.8 x10^3/uL (4.0-11.0) Red Blood Count 3.17 x10^6/uL (4.30-5.70) Hemoglobin 8.9 g/dL (13.0-17.5) Hematocrit 27.4 % (39.0-53.0) Mean Corpuscular Volume 86 fL (79-100) Mean Corpuscular Hemoglobin 28 pg (25-35) Mean Corpuscular Hemoglobin Concent 32 g/dL (31-37) Red Cell Distribution Width 13.8 % (11.5-14.5) Platelet Count 118 x10^3/uL (140-400) Test 09/27/21 07:00 09/27/21 08:31 White Blood Count 12.1 x10^3/uL (4.0-11.0) Red Blood Count 2.52 x10^6/uL (4.30-5.70) Hemoglobin 7.0 g/dL (13.0-17.5) Hematocrit 21.6 % (39.0-53.0) Mean Corpuscular Volume 86 fL (79-100) Mean Corpuscular Hemoglobin 28 pg (25-35) Mean Corpuscular Hemoglobin Concent 32 g/dL (31-37) Red Cell Distribution Width 13.8 % (11.5-14.5) Platelet Count 119 x10^3/uL (140-400) Neutrophils (%) (Auto) 78 % (31-73) Lymphocytes (%) (Auto) 10 % (24-48) Monocytes (%) (Auto) 12 % (0-9) Eosinophils (%) (Auto) 0 % (0-3) Basophils (%) (Auto) 0 % (0-3) Neutrophils # (Auto) 9.4 x10^3/uL (1.8-7.7) Lymphocytes # (Auto) 1.2 x10^3/uL (1.0-4.8) Monocytes # (Auto) 1.5 x10^3/uL (0.0-1.1) Eosinophils # (Auto) 0.0 x10^3/uL (0.0-0.7) Basophils # (Auto) 0.0 x10^3/uL (0.0-0.2) Sodium Level 138 mmol/L (136-145) Potassium Level 4.8 mmol/L (3.5-5.1) Chloride Level 103 mmol/L (98-107) Carbon Dioxide Level 27 mmol/L (21-32) Anion Gap 8 (6-14) Blood Urea Nitrogen 27 mg/dL (8-26) Creatinine 1.0 mg/dL (0.7-1.3) Estimated GFR (Cockcroft-Gault) 91.9 Glucose Level 187 mg/dL (70-99) Calcium Level 7.9 mg/dL (8.5-10.1) Glucose (Fingerstick) 178 mg/dL (70-99) Laboratory Tests Test 09/26/21 14:06 09/26/21 14:40 09/26/21 15:03 09/26/21 20:25 Glucose (Fingerstick) 199 mg/dL (70-99) 207 mg/dL (70-99) 179 mg/dL (70-99) White Blood Count 12.8 x10^3/uL (4.0-11.0) Red Blood Count 3.17 x10^6/uL (4.30-5.70) Hemoglobin 8.9 g/dL (13.0-17.5) Hematocrit 27.4 % (39.0-53.0) Mean Corpuscular Volume 86 fL (79-100) Mean Corpuscular Hemoglobin 28 pg (25-35) Mean Corpuscular Hemoglobin Concent 32 g/dL (31-37) Red Cell Distribution Width 13.8 % (11.5-14.5) Platelet Count 118 x10^3/uL (140-400) Test 09/27/21 07:00 09/27/21 08:31 White Blood Count 12.1 x10^3/uL (4.0-11.0) Red Blood Count 2.52 x10^6/uL (4.30-5.70) Hemoglobin 7.0 g/dL (13.0-17.5) Hematocrit 21.6 % (39.0-53.0) Mean Corpuscular Volume 86 fL (79-100) Mean Corpuscular Hemoglobin 28 pg (25-35) Mean Corpuscular Hemoglobin Concent 32 g/dL (31-37) Red Cell Distribution Width 13.8 % (11.5-14.5) Platelet Count 119 x10^3/uL (140-400) Neutrophils (%) (Auto) 78 % (31-73) Lymphocytes (%) (Auto) 10 % (24-48) Monocytes (%) (Auto) 12 % (0-9) Eosinophils (%) (Auto) 0 % (0-3) Basophils (%) (Auto) 0 % (0-3) Neutrophils # (Auto) 9.4 x10^3/uL (1.8-7.7) Lymphocytes # (Auto) 1.2 x10^3/uL (1.0-4.8) Monocytes # (Auto) 1.5 x10^3/uL (0.0-1.1) Eosinophils # (Auto) 0.0 x10^3/uL (0.0-0.7) Basophils # (Auto) 0.0 x10^3/uL (0.0-0.2) Sodium Level 138 mmol/L (136-145) Potassium Level 4.8 mmol/L (3.5-5.1) Chloride Level 103 mmol/L (98-107) Carbon Dioxide Level 27 mmol/L (21-32) Anion Gap 8 (6-14) Blood Urea Nitrogen 27 mg/dL (8-26) Creatinine 1.0 mg/dL (0.7-1.3) Estimated GFR (Cockcroft-Gault) 91.9 Glucose Level 187 mg/dL (70-99) Calcium Level 7.9 mg/dL (8.5-10.1) Glucose (Fingerstick) 178 mg/dL (70-99) Medications Current Medications Fentanyl Citrate (Fentanyl 2ml Vial) 25 mcg PRN Q5MIN PRN IVP MILD PAIN 1-3; Start 09/25/21 at 06:00; Stop 09/25/21 at 20:00; Status DC Fentanyl Citrate (Fentanyl 2ml Vial) 50 mcg PRN Q5MIN PRN IVP MODERATE PAIN 4-6 Last administered on 09/25/21at 13:48; Start 09/25/21 at 06:00; Stop 09/25/21 at 20:00; Status DC Morphine Sulfate (Morphine Sulfate) 1 mg PRN Q10MIN PRN IVP SEVERE PAIN 7-10 Last administered on 09/25/21at 14:21; Start 09/25/21 at 06:00; Stop 09/25/21 at 20:00; Status DC Ringer's Solution 1,000 ml @ 30 mls/hr Q24H IV Last administered on 09/25/21at 12:54; Start 09/25/21 at 06:00; Stop 09/25/21 at 17:59; Status DC Hydromorphone HCl (Dilaudid) 0.5 mg PRN Q10MIN PRN IVP SEVERE PAIN 7-10, 2nd CHOICE Last administered on 09/25/21at 16:53; Start 09/25/21 at 06:00; Stop 09/25/21 at 20:00; Status DC Prochlorperazine Edisylate (Compazine) 5 mg PACU PRN PRN IVP NAUSEA, MRX1; Start 09/25/21 at 06:00; Stop 09/25/21 at 20:00; Status DC Cefazolin Sodium 1 gm/Sodium Chloride 1,000 ml @ 1,000 mls/hr 1X ONCE IRR Last administered on 09/25/21at 10:14; Start 09/25/21 at 06:00; Stop 09/25/21 at 06:59; Status DC Cefazolin Sodium/ Dextrose 50 ml @ 100 mls/hr 1X PREOP PRN IV PRIOR TO PROCEDURE Last administered on 09/25/21 09:30; Start 09/25/21 at 06:00; Stop 09/25/21 at 13:39; Status DC Insulin Human Lispro (HumaLOG VIAL for OP,RR ONLY) 0-10 units PRN Q1HR PRN SQ PER PROTOCOL Last administered on 09/25/21 17:01; Start 09/25/21 at 07:00; Stop 09/25/21 at 18:00; Status DC Bupivacaine HCl/ Epinephrine Bitart (Sensorcain-Epi 0.5% Kit) 30 ml STK-MED ONCE INJ Last administered on 09/25/21 10:14; Start 09/25/21 at 10:14; Stop 09/25/21 at 10:30; Status DC Ketorolac Tromethamine (Toradol Im) 60 mg STK-MED ONCE INJ Last administered on 09/25/21at 10:14; Start 09/25/21 at 10:14; Stop 09/25/21 at 10:30; Status DC Thrombin 20,000 unit STK-MED ONCE TP Last administered on 09/25/21 10:14; Start 09/25/21 at 10:14; Stop 09/25/21 at 10:30; Status DC Gelatin (Gelfoam Size 100) 1 each STK-MED ONCE TP Last administered on 09/25/21 10:14; Start 09/25/21 at 10:14; Stop 09/25/21 at 10:30; Status DC Acetaminophen (Tylenol) 650 mg PRN Q4HRS PRN PO TEMP OVER 100.4F OR MILD PAIN; Start 09/25/21 at 12:30 Aspirin (Aspirin Chewable) 81 mg DAILY PO Last administered on 09/26/21 08:30; Start 09/26/21 at 09:00 Atorvastatin Calcium (Lipitor) 10 mg QHS PO Last administered on 09/26/21 20:15; Start 09/25/21 at 21:00 Baclofen (Lioresal) 10 mg BID PO Last administered on 09/27/21at 09:00; Start 09/25/21 at 21:00 Diazepam (Valium) 5 mg TID PO Last administered on 09/27/21 08:54; Start 09/25/21 at 14:00 Docusate Sodium (Colace) 100 mg PRN BID PRN PO HARD STOOLS; Start 09/25/21 at 12:30 Fluticasone Propionate (Flonase) 2 spray DAILY NS ; Start 09/26/21 at 09:00 Hydroxyzine HCl (Atarax) 25 mg PRN Q6HRS PRN PO itching; Start 09/25/21 at 12:30 Lidocaine (Lidoderm) 1 patch QHS TP Last administered on 09/26/21at 21:00; Start 09/25/21 at 20:00 Linagliptin (Tradjenta) 5 mg DAILY PO Last administered on 09/27/21 08:54; Start 09/25/21 at 13:00 Miconazole Nitrate (Monistat-Derm) 1 crispin TID TP Last administered on 09/27/21 09:01; Start 09/25/21 at 21:00 Midodrine (Proamatine) 2.5 mg PRN 1X PRN PO hypotension Last administered on 09/27/21 08:56; Start 09/25/21 at 12:30 Oxycodone HCl (Roxicodone) 10 mg PRN Q6HRS PRN PO MODERATE-SEVERE PAIN Last administered on 09/27/21 08:57; Start 09/25/21 at 12:30 Diclofenac Sodium (Voltaren) 1 crispin PRN TID PRN TP PAIN CONTROL; Start 09/25/21 at 13:15; Stop 09/25/21 at 18:37; Status DC Insulin Glargine (Lantus Syringe) 4 unit QHS SQ Last administered on 09/26/21at 21:00; Start 09/25/21 at 21:00 Losartan Potassium (Cozaar) 25 mg DAILY08 PO ; Start 09/26/21 at 08:00 Polyethylene Glycol (miraLAX PACKET) 17 gm DAILY PO Last administered on 09/27/21 08:54; Start 09/25/21 at 14:00 Pregabalin (Lyrica) 100 mg BID PO Last administered on 09/27/21 08:55; Start 09/25/21 at 21:00 Acetaminophen (Tylenol) 650 mg PRN Q6HRS PRN PO MILD PAIN / TEMP > 100.3'F; Start 09/25/21 at 12:30; Status Cancel Al Hydroxide/Mg Hydroxide (Mylanta Plus Xs) 30 ml PRN Q3HRS PRN PO HEARTBURN / GAS; Start 09/25/21 at 12:30 Calcium Carbonate/ Glycine (Tums) 500 mg PRN Q3HRS PRN PO INDIGESTION; Start 09/25/21 at 12:30 Diphenhydramine HCl (Benadryl) 25 mg PRN Q6HRS PRN PO ITCHING; Start 09/25/21 at 12:30 Naloxone HCl (Narcan) 0.1 mg PRN Q2MIN PRN IV SEE COMMENTS; Start 09/25/21 at 12:30 Sodium Chloride (Normal Saline Flush) 3 ml QSHIFT PRN IV AFTER MEDS AND BLOOD DRAWS; Start 09/25/21 at 12:30 Potassium Chloride/Sodium Chloride 1,000 ml @ 75 mls/hr [id number] IV Last administered on 09/26/21at 07:00; Start 09/25/21 at 12:30; Stop 09/26/21 at 17:33; Status DC Magnesium Hydroxide (Milk Of Magnesia) 2,400 mg PRN Q12HR PRN PO CONSTIPATION; Start 09/25/21 at 12:30 Cefazolin Sodium (Ancef) 1 gm Q8H IVP Last administered on 09/26/21at 04:14; Start 09/25/21 at 18:00; Stop 09/26/21 at 10:01; Status DC Fentanyl Citrate (Fentanyl 2ml Vial) 50 mcg PRN Q2HR PRN IVP MODERATE TO SEVERE PAIN Last administered on 09/27/21at 11:46; Start 09/25/21 at 12:30 Dextrose (Dextrose 50%-Water Syringe) 12.5 gm PRN Q15MIN PRN IV SEE COMMENTS; Start 09/25/21 at 12:30 Dextrose (Iv Dextrose 5%) 250 ml PRN Q15MIN PRN IV SEE COMMENTS; Start 09/25/21 at 12:30 Gelatin (Gelfoam Size 100) 1 each STK-MED ONCE .ROUTE ; Start 09/25/21 at 06:37; Stop 09/25/21 at 14:55; Status DC Bupivacaine HCl/ Epinephrine Bitart (Sensorcain-Epi 0.5% Kit) 30 ml STK-MED ONCE .ROUTE ; Start 09/25/21 at 06:37; Stop 09/25/21 at 14:55; Status DC Ketorolac Tromethamine (Toradol Im) 60 mg STK-MED ONCE .ROUTE ; Start 09/25/21 at 06:37; Stop 09/25/21 at 14:55; Status DC Thrombin 20,000 unit STK-MED ONCE TP ; Start 09/25/21 at 06:38; Stop 09/25/21 at 14:55; Status DC Propofol (Diprivan) 200 mg STK-MED ONCE IV ; Start 09/25/21 at 05:54; Stop 09/25/21 at 14:57; Status DC Lidocaine HCl (Lidocaine Pf 2% Vial) 5 ml STK-MED ONCE .ROUTE ; Start 09/25/21 at 05:54; Stop 09/25/21 at 14:57; Status DC Ondansetron HCl (Zofran) 4 mg STK-MED ONCE .ROUTE ; Start 09/25/21 at 05:54; Stop 09/25/21 at 14:57; Status DC Phenylephrine HCl (Ramone-Synephrine Inj) 10 mg STK-MED ONCE .ROUTE ; Start 09/25/21 at 05:54; Stop 09/25/21 at 14:57; Status DC Propofol 50 ml @ As Directed STK-MED ONCE IV ; Start 09/25/21 at 05:54; Stop 09/25/21 at 14:57; Status DC Dexamethasone Sodium Phosphate (Decadron) 4 mg STK-MED ONCE .ROUTE ; Start 09/25/21 at 05:54; Stop 09/25/21 at 14:57; Status DC Fentanyl Citrate (Fentanyl 2ml Vial) 100 mcg STK-MED ONCE .ROUTE ; Start 09/25/21 at 05:54; Stop 09/25/21 at 14:57; Status DC Succinylcholine Chloride (Anectine) 200 mg STK-MED ONCE .ROUTE ; Start 09/25/21 at 05:54; Stop 09/25/21 at 14:57; Status DC Remifentanil HCl (Ultiva) 1 mg STK-MED ONCE IV ; Start 09/25/21 at 05:54; Stop 09/25/21 at 14:57; Status DC Glycopyrrolate (Robinul) 1 mg STK-MED ONCE .ROUTE ; Start 09/25/21 at 07:11; Stop 09/25/21 at 15:01; Status DC Propofol 50 ml @ As Directed STK-MED ONCE IV ; Start 09/25/21 at 08:07; Stop 09/25/21 at 15:02; Status DC Ketamine HCl (Ketamine) 50 mg STK-MED ONCE .ROUTE ; Start 09/25/21 at 08:15; Stop 09/25/21 at 15:02; Status DC Hydromorphone HCl (Dilaudid) 2 mg STK-MED ONCE .ROUTE ; Start 09/25/21 at 10:44; Stop 09/25/21 at 15:03; Status DC Fentanyl Citrate (Fentanyl 2ml Vial) 100 mcg STK-MED ONCE .ROUTE ; Start 09/25/21 at 13:26; Stop 09/25/21 at 15:04; Status DC Morphine Sulfate (Morphine Sulfate) 2 mg STK-MED ONCE .ROUTE ; Start 09/25/21 at 14:04; Stop 09/25/21 at 15:05; Status DC Hydromorphone HCl (Dilaudid) 2 mg STK-MED ONCE .ROUTE ; Start 09/25/21 at 14:54; Stop 09/25/21 at 15:06; Status DC Menthol/Methyl Salicylate (Bengay Greaseless Cream) 1 crispin PRN Q30MIN PRN TP MUSCLE PAIN Last administered on 09/25/21at 19:35; Start 09/25/21 at 18:45 Mupirocin (Bactroban) 1 crispin BID NS Last administered on 09/27/21at 09:02; Start 09/26/21 at 09:00 Dexamethasone Sodium Phosphate (Decadron) 10 mg 1X ONCE IVP Last administered on 09/26/21at 07:31; Start 09/26/21 at 07:30; Stop 09/26/21 at 07:31; Status DC Cefazolin Sodium 1 gm/Sodium Chloride 1,000 ml @ 1,000 mls/hr 1X ONCE IRR Last administered on 09/26/21at 11:52; Start 09/26/21 at 10:30; Stop 09/26/21 at 11:29; Status DC Cefazolin Sodium (Ancef) 1 gm STK-MED ONCE IVP ; Start 09/26/21 at 10:05; Stop 09/26/21 at 10:06; Status DC Lidocaine HCl (Lidocaine Pf 2% Vial) 5 ml STK-MED ONCE .ROUTE ; Start 09/26/21 at 10:18; Stop 09/26/21 at 10:18; Status DC Ondansetron HCl (Zofran) 4 mg STK-MED ONCE .ROUTE ; Start 09/26/21 at 10:18; Stop 09/26/21 at 10:18; Status DC Propofol (Diprivan) 200 mg STK-MED ONCE IV ; Start 09/26/21 at 10:18; Stop 09/26/21 at 10:19; Status DC Dexamethasone Sodium Phosphate (Decadron) 4 mg STK-MED ONCE .ROUTE ; Start 09/26/21 at 10:18; Stop 09/26/21 at 10:19; Status DC Sevoflurane (Ultane) 30 ml STK-MED ONCE IH ; Start 09/26/21 at 10:18; Stop 09/26/21 at 10:19; Status DC Fentanyl Citrate (Fentanyl 2ml Vial) 100 mcg STK-MED ONCE .ROUTE ; Start 09/26/21 at 10:19; Stop 09/26/21 at 10:19; Status DC Rocuronium Liberty (Zemuron) 50 mg STK-MED ONCE .ROUTE ; Start 09/26/21 at 10:19; Stop 09/26/21 at 10:19; Status DC Insulin Human Lispro (HumaLOG VIAL for OP,RR ONLY) 0-10 units PRN Q1HR PRN SQ PER PROTOCOL Last administered on 09/26/21at 15:11; Start 09/26/21 at 10:30; Stop 09/26/21 at 18:00; Status DC Sugammadex Sodium (Bridion) 200 mg 1X ONCE IVP ; Start 09/26/21 at 10:30; Stop 09/26/21 at 10:31; Status DC Gelatin (Gelfoam Size 100) 1 each STK-MED ONCE .ROUTE Last administered on 09/26/21at 11:52; Start 09/26/21 at 10:30; Stop 09/26/21 at 10:30; Status DC Bupivacaine HCl/ Epinephrine Bitart (Sensorcain-Epi 0.5% Kit) 30 ml STK-MED ONCE .ROUTE ; Start 09/26/21 at 10:30; Stop 09/26/21 at 10:30; Status DC Ketorolac Tromethamine (Toradol Im) 60 mg STK-MED ONCE .ROUTE ; Start 09/26/21 at 10:30; Stop 09/26/21 at 10:30; Status DC Thrombin 20,000 unit STK-MED ONCE TP Last administered on 09/26/21at 11:52; Start 09/26/21 at 10:30; Stop 09/26/21 at 10:31; Status DC Cefazolin Sodium/ Dextrose 50 ml @ As Directed STK-MED ONCE IV ; Start 09/26/21 at 10:32; Stop 09/26/21 at 10:32; Status DC Vancomycin HCl 1 gm/Sodium Chloride 250 ml @ 250 mls/hr PREOP PRN PRN IV PRIOR TO PROCEDURE; Start 09/26/21 at 10:45; Stop 09/26/21 at 14:00; Status DC Cefazolin Sodium/ Dextrose 50 ml @ 100 mls/hr 1X ONCE IV Last administered on 09/26/21at 11:00; Start 09/26/21 at 11:00; Stop 09/26/21 at 11:29; Status DC Dexamethasone Sodium Phosphate (Decadron) 4 mg STK-MED ONCE .ROUTE ; Start 09/26/21 at 11:04; Stop 09/26/21 at 11:04; Status DC Glycopyrrolate (Robinul) 1 mg STK-MED ONCE .ROUTE ; Start 09/26/21 at 11:04; Stop 09/26/21 at 11:04; Status DC Hydromorphone HCl (Dilaudid) 2 mg STK-MED ONCE .ROUTE ; Start 09/26/21 at 11:56; Stop 09/26/21 at 11:56; Status DC Fentanyl Citrate (Fentanyl 2ml Vial) 25 mcg PRN Q5MIN PRN IVP MILD PAIN 1-3; Start 09/26/21 at 14:30; Stop 09/26/21 at 18:15; Status DC Fentanyl Citrate (Fentanyl 2ml Vial) 50 mcg PRN Q5MIN PRN IVP MODERATE PAIN 4- 6; Start 09/26/21 at 14:30; Stop 09/26/21 at 18:15; Status DC Morphine Sulfate (Morphine Sulfate) 1 mg PRN Q10MIN PRN IVP SEVERE PAIN 7-10; Start 09/26/21 at 14:30; Stop 09/26/21 at 18:15; Status DC Ringer's Solution 1,000 ml @ 30 mls/hr Q24H IV Last administered on 09/26/21at 15:18; Start 09/26/21 at 14:30; Stop 09/26/21 at 21:00; Status DC Hydromorphone HCl (Dilaudid) 0.5 mg PRN Q10MIN PRN IVP SEVERE PAIN 7-10, 2nd CHOICE; Start 09/26/21 at 14:30; Stop 09/26/21 at 18:15; Status DC Prochlorperazine Edisylate (Compazine) 5 mg PACU PRN PRN IVP NAUSEA, MRX1; Start 09/26/21 at 14:30; Stop 09/26/21 at 21:00; Status DC Fentanyl Citrate (Fentanyl 2ml Vial) 100 mcg STK-MED ONCE .ROUTE ; Start 09/26/21 at 14:23; Stop 09/26/21 at 14:25; Status DC Fentanyl Citrate (Fentanyl 2ml Vial) 25 mcg PRN Q5MIN PRN IVP MILD PAIN 1-3; Start 09/26/21 at 14:30; Stop 09/27/21 at 14:29; Status UNV Fentanyl Citrate (Fentanyl 2ml Vial) 50 mcg PRN Q5MIN PRN IVP MODERATE PAIN 4- 6; Start 09/26/21 at 14:30; Stop 09/27/21 at 14:29; Status UNV Morphine Sulfate (Morphine Sulfate) 1 mg PRN Q10MIN PRN IVP SEVERE PAIN 7-10; Start 09/26/21 at 14:30; Stop 09/27/21 at 14:29; Status UNV Ringer's Solution 1,000 ml @ 30 mls/hr Q24H IV ; Start 09/26/21 at 14:30; Stop 09/27/21 at 02:29; Status UNV Hydromorphone HCl (Dilaudid) 0.5 mg PRN Q10MIN PRN IVP SEVERE PAIN 7-10, 2nd CHOICE; Start 09/26/21 at 14:30; Stop 09/27/21 at 14:29; Status UNV Prochlorperazine Edisylate (Compazine) 5 mg PACU PRN PRN IVP NAUSEA, MRX1; Start 09/26/21 at 14:30; Stop 09/27/21 at 14:29; Status UNV Dexamethasone Sodium Phosphate (Decadron) 4 mg Q6HRS IVP Last administered on 09/27/21at 12:26; Start 09/26/21 at 18:00 Sodium Chloride 1,000 ml @ 100 mls/hr Q10H IV Last administered on 09/27/21at 07 :29; Start 09/26/21 at 17:30 Cefazolin Sodium (Ancef) 1 gm Q8HRS IVP ; Start 09/27/21 at 06:00; Stop 09/27/21 at 05:47; Status DC Vancomycin HCl 1 gm/Sodium Chloride 250 ml @ 166.667 mls/hr 1X ONCE IV Last administered on 09/27/21at 06:27; Start 09/27/21 at 06:00; Stop 09/27/21 at 07:29; Status DC Active Scripts Active Dok (Docusate Sodium) 100 Mg Capsule 100 Mg PO PRN BID PRN 30 Days Tylenol (Acetaminophen) 325 Mg Tablet 650 Mg PO PRN Q4HRS PRN 30 Days Valium (Diazepam) 5 Mg Tablet 5 Mg PO TID Atorvastatin Calcium 10 Mg Tablet 10 Mg PO QHS Reported Midodrine Hcl 2.5 Mg Tablet 2.5 Mg PO PRN 1X PRN Aspirin 81 Mg Tab.chew 81 Mg PO DAILY Baclofen 10 Mg Tablet 10 Mg PO BID Lyrica (Pregabalin) 100 Mg Capsule 100 Mg PO BID 30 Days Polyethylene Glycol 3350 2,500 Gm Powder 17 Gm PO DAILY 30 Days Oxycodone HCl 5 Mg Tablet 10 Mg PO PRN Q6HRS PRN Micatin (Miconazole Nitrate) 14 Gm Cream..g. 1 [place]pin TP TID Tradjenta (Linagliptin) 5 Mg Tablet 5 Mg PO DAILY Lidocaine PATCH (Lidocaine) 1 Each Adh..patch 1 Each TP DAILY REMOVE AFTER 12 HOURS Levemir (Insulin Detemir) 100 Unit/1 Ml Vial 4 Unit SQ HS Hydroxyzine Hcl 25 Mg Tablet 25 Mg PO PRN Q6HRS PRN Fluticasone Propionate Nasal [place] (Fluticasone Propionate) 16 Gm [place].susp 2 [place] NS DAILY Diclofenac Sodium 100 Gm Gel..gram. 100 Gm TP PRN TID PRN Losartan Potassium 100 Mg Tablet 25 Tab PO DAILY08 Vitals/I & O Vital Sign - Last 24 Hours 09/26/21 09/26/21 09/26/21 09/26/21 13:54 13:54 14:10 14:25 Temp 98.6 98.6 Pulse 97 98 96 Resp 16 16 16 B/P (MAP) 90/47 102/54 95/54 Pulse Ox 99 99 98 O2 Delivery Simple Mask Mask Simple Mask Simple Mask O2 Flow Rate 10 10 10 10 09/26/21 09/26/21 09/26/21 09/26/21 14:27 14:40 14:55 15:08 Pulse 94 96 Resp 16 16 16 16 B/P (MAP) 90/46 85/44 Pulse Ox 99 98 99 100 O2 Delivery Simple Mask Simple Mask Simple Mask Simple Mask O2 Flow Rate 10.0 10 10 10.0 09/26/21 09/26/21 09/26/21 09/26/21 15:10 15:30 15:45 15:45 Temp 98.3 98.3 Pulse 90 98 Resp 16 14 B/P (MAP) 90/47 110/56 (74) Pulse Ox 99 100 100 O2 Delivery Simple Mask Room Air Nasal Cannula Room Air O2 Flow Rate 10 2.0 09/26/21 09/26/21 09/26/21 09/26/21 15:45 16:00 16:00 17:00 Pulse 84 92 Resp 14 14 B/P (MAP) 104/52 (69) 128/63 (84) Pulse Ox 100 100 100 O2 Delivery Room Air Nasal Cannula Nasal Cannula Nasal Cannula O2 Flow Rate 2.0 2.0 2.0 09/26/21 09/26/21 09/26/21 09/26/21 18:00 18:21 18:51 19:00 Pulse 98 104 Resp 17 10 14 B/P (MAP) 122/59 (80) 111/57 (75) Pulse Ox 99 100 100 100 O2 Delivery Nasal Cannula Nasal Cannula Nasal Cannula Nasal Cannula O2 Flow Rate 1.0 2.0 1.0 2.0 09/26/21 09/26/21 09/26/21 09/26/21 20:00 20:00 21:00 22:00 Temp 98.0 98.0 Pulse 98 90 90 Resp 17 17 17 B/P (MAP) 120/52 (74) 95/50 (65) 109/53 (71) Pulse Ox 99 99 99 O2 Delivery Nasal Cannula Nasal Cannula Nasal Cannula Nasal Cannula O2 Flow Rate 1.0 2.0 1.0 1.0 09/26/21 09/26/21 09/26/21 09/27/21 23:00 23:22 23:52 00:01 Temp 98.0 98.0 Pulse 104 100 Resp 14 17 B/P (MAP) 109/57 (74) 103/48 (66) Pulse Ox 100 100 100 99 O2 Delivery Nasal Cannula Nasal Cannula Nasal Cannula Nasal Cannula O2 Flow Rate 1.0 1.0 1.0 1.0 09/27/21 09/27/21 09/27/21 09/27/21 00:08 00:38 01:00 01:53 Pulse 100 Resp 14 B/P (MAP) 104/47 (66) Pulse Ox 99 99 97 97 O2 Delivery Nasal Cannula Nasal Cannula Nasal Cannula Nasal Cannula O2 Flow Rate 1.0 1.0 1.0 1.0 09/27/21 09/27/21 09/27/21 09/27/21 02:00 02:23 03:00 04:00 Pulse 109 108 107 Resp 14 14 17 B/P (MAP) 104/45 (64) 98/45 (62) 97/46 (63) Pulse Ox 97 97 97 99 O2 Delivery Nasal Cannula Nasal Cannula Nasal Cannula Nasal Cannula O2 Flow Rate 1.0 1.0 1.0 1.0 09/27/21 09/27/21 09/27/21 09/27/21 05:00 06:00 06:28 06:58 Pulse 104 104 Resp 17 17 14 16 B/P (MAP) 94/42 (59) 107/44 (65) Pulse Ox 99 99 97 O2 Delivery Nasal Cannula Nasal Cannula Nasal Cannula Nasal Cannula O2 Flow Rate 1.0 1.0 1.0 1.0 09/27/21 09/27/21 09/27/21 09/27/21 07:00 08:00 08:00 08:00 Temp 98.6 98.6 Pulse 102 103 102 Resp 18 16 B/P (MAP) 88/42 (57) 95/50 92/45 (61) Pulse Ox 97 97 O2 Delivery Nasal Cannula Nasal Cannula Nasal Cannula O2 Flow Rate 1.0 1.0 1.0 09/27/21 09/27/21 09/27/21 09/27/21 08:56 08:57 09:00 09:27 Pulse 103 106 Resp 22 16 18 B/P (MAP) 95/50 106/54 (71) Pulse Ox 97 97 98 O2 Delivery Nasal Cannula Nasal Cannula Nasal Cannula O2 Flow Rate 1.0 1.0 1.0 09/27/21 09/27/21 09/27/21 09/27/21 09:30 09:45 10:00 10:45 Temp 98.6 98.3 98.0 98.6 98.3 98.0 Pulse 103 103 98 93 Resp 16 16 18 16 B/P (MAP) 95/56 114/52 114/52 (72) 113/54 Pulse Ox 98 O2 Delivery Nasal Cannula O2 Flow Rate 1.0 09/27/21 09/27/21 09/27/21 09/27/21 10:55 11:00 11:10 11:46 Temp 98.0 98.5 98.0 98.5 Pulse 93 103 98 Resp 16 14 12 14 B/P (MAP) 113/54 117/53 (74) 117/53 Pulse Ox 98 97 O2 Delivery Nasal Cannula Nasal Cannula O2 Flow Rate 1.0 1.0 09/27/21 09/27/21 12:10 12:16 Temp 97.7 97.7 Pulse 90 Resp 18 16 B/P (MAP) 119/57 Pulse Ox 97 O2 Delivery Nasal Cannula O2 Flow Rate 1.0 Intake and Output 09/26/21 09/26/21 09/27/21 15:00 23:00 07:00 Intake Total 1350 ml 1020 ml 250 ml Output Total 45 ml 685 ml 150 ml Balance 1305 ml 335 ml 100 ml Justifications for Admission Other Justification uncontrolled diabetes KELLEN BRUNO MD Sep 27, 2021 12:55
[2021-09-27 13:49] LABS: HEMATOCRIT 26.3 % (39.0-53.0); HEMOGLOBIN 8.6 g/dL (13.0-17.5)
--- NOTE | 2021-09-27 19:07 | PATHOLOGY ---
[facility] Accession Number: [id number] . 01 Material submitted: . vertebral column - CERVICAL DECOMPRESSION . 01 Clinical history: . CERVICAL SPONDYLOSIS WITH MYELOPATHY STENOSIS POSTERIOR CERVICAL LAMINECTOMY C3 THRU PARTIAL C7 POSTERIOR CERVICAL INSTRUMENTATION AND FACET FUSION C3-C6 . 02 Diagnosis: Segments of fibrocartilaginous, adipose, and skeletal muscle tissue and bone, cervical decompression: - Focal degenerative and coagulative changes of fibrocartilaginous tissue. . (JPM:vida; 09/27/2021) MBR 09/27/2021 1657 Local . 02 Comment: There is no evidence of an acute inflammatory process or malignancy. (JPM:vida; 09/27/2021) . 02 Electronically signed: . Boone Jensen MD, Pathologist NPI- [id number] . 01 Gross description: . The specimen is received in formalin, labeled "Terrell, [place], cervical decompression" and consists of a linear rubbery and cartilaginous portion of tissue (6.1 cm in length by 2.1 x 1.5 cm) with 1 smooth, slightly concave side, and an opposing roughened side. The roughened side displays attached portions of bone, possibly consistent with portions of vertebrae. The opposing slightly concave side displays attached hemorrhagic fine adhesions. Sectioning reveals parra-pink calcified but otherwise unremarkable cut surfaces. Also received in the same container are multiple broussard-parra rubbery irregular portions of connective tissue (2.5 x 2.2 x 0.7 cm in aggregate). Sectioning reveals unremarkable cut surfaces. [facility] sections are submitted in A1 following decalcification. (MARSHALL; 09/26/2021) DKA/DKA 09/27/2021 1655 Local . 02 Pathologist provided ICD-10: M50.30 . 02 CPT . 552903, [id number] Specimen Comment: A courtesy copy of this report has been sent to [phone] Specimen Comment: Report sent to Specimen Comment: A duplicate report has been generated due to demographic updates. Performed at: 01 [facility] [id number] [facility] [address], [place] [id number] MD Severiano Atkins MD Phone: [phone] Performed at: [facility] [address] [place] [id number] MD Boone Jensen MD Phone: [phone]
--- NOTE | 2021-09-27 19:33 | CONS ---
DATE OF CONSULTATION: 09/27/2021 ATTENDING PHYSICIAN: Cristóbal Collier MD REASON FOR CONSULTATION: The patient was seen at the request of Dr. Collier for rehab evaluation. HISTORY OF PRESENT ILLNESS: This is a 60-year-old male who underwent ACDF at C4-5 and C5-6 in 07/2021 for severe cervical spinal stenosis and myelopathy following a fall. He did well from that, gone to [facility]. Some improvement in his upper and lower extremity muscle strength following the surgery, but could not take care of himself. He went to [facility] per senior living care unit. The patient does not have any pain. He does note how his hands feel cold any time, has been working with occupational and physical therapy, able to feed himself and his right shoulder is painful at times and left hamstring was tight. He has been taking baclofen, oxycodone and Lyrica. He is in a wheelchair in cervical collar. The patient started having increasing weakness, so he was transferred to [facility] on 09/25/2021. He had MRI scan of the cervical vertebrae done on 09/01/2021 and he had epidural hematoma and he had posterior cervical exploration with evacuation of cervical epidural hematoma, adjustment of C4 and C3 right lateral mass screws done on 09/26/2021. Preop CT scan revealed recent postsurgical fusion at C3-7 posterior spinal fusion with C3-4 laminectomies, metallic artifact significantly limits evaluation of the spinal canal at the surgical levels. Questionable posterior epidural hematoma at the level of C2-3 measuring 4 mm thickness, narrowing the thecal sac to approximately 4-5 mm AP diameter, degenerative disk and facet disease causing foraminal stenosis on the right at C3-4 and on the left at C6-7. The patient postop continues with no voluntary motion of his lower extremities and relatively increased weakness in his upper extremities when compared to his stay at [facility] as per the patient. 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 The patient had a sister available to help him as needed. The patient received blood transfusion this afternoon. PHYSICAL EXAMINATION: GENERAL: Today revealed a middle-aged male. He is alert, oriented to time, place, person, circumstance and cooperative. NEUROLOGIC: Normal speech. He had equal perception of touch and pinprick sensation overall. No voluntary motion of his lower extremities noted. He had significant weakness of finger extensors. Other than that, his upper extremity muscle strength is 2/5-3/5 grade. Absent knee and ankle jerks. Plantar reflex is equivocal bilaterally. The patient had dressing to posterior aspect of his neck. ASSESSMENT: Mobility and self-care limitation in a patient status post cervical decompression laminectomy and fusion done in 07/2021 and also status post evacuation of epidural hematoma in cervical area done on 09/26 2021 with continued quadriparesis without any voluntary motor function of his lower extremities. Clinical evidence of peripheral neuropathy, anemia. RECOMMENDATIONS: Agree with the plan for physical therapy and occupational therapy. Dr. Collier, I appreciate asking me to participate in care of this interesting patient. I will be glad to see him for followup with you on as needed basis. DIAMANTE DR: Rolando TID: [id number]
[2021-09-27] MEDS: ATORVASTATIN CALCIUM 10 MG TABLET. PO SCH (21:19)
[2021-09-27] MEDS: LIDOCAINE (700MG/PATCH) PATCH. TP SCH (21:20)
[2021-09-27] MEDS: METHYL SALICYLATE/MENTHOL TOPICAL CREAM 57GM TUBE. TP PRN (21:20)
[2021-09-27] MEDS: INSULIN GLARGINE SYRINGE. SQ SCH (21:35)
[2021-09-28] VITALS (24 sets, daily range): BP systolic 110–162; BP diastolic 53–87
[2021-09-28] MEDS: IV 1/2 NORMAL SALINE 1,000 ML IV SCH ×3 (00:08→22:21)
[2021-09-28] MEDS: oxyCODONE IR 5 MG TABLET PO PRN ×2 (04:18→21:26)
[2021-09-28] MEDS: DEXAMETHASONE SOD PHOS 4 MG/ML VIAL IVP SCH (05:06)
[2021-09-28 06:53] LABS: BASO % 0 % (0-3); EOS % 0 % (0-3); HEMATOCRIT 26.5 % (39.0-53.0); HEMOGLOBIN 8.6 g/dL (13.0-17.5); LYMPH # 1.1 x10^3/uL (1.0-4.8); LYMPH % 10 % (24-48); MEAN CORPUSCULAR HEMOGLOBIN 28 pg (25-35); MEAN CORPUSCULAR HGB CONC 32 g/dL (31-37); MEAN CORPUSCULAR VOLUME 86 fL (79-100); MONO # 0.7 x10^3/uL (0.0-1.1); MONO % 7 % (0-9); NEUT # 9.2 x10^3/uL (1.8-7.7); NEUT % 84 % (31-73); PLATELET COUNT 124 x10^3/uL (140-400); RED BLOOD COUNT 3.09 x10^6/uL (4.30-5.70); RED CELL DISTRIBUTION WIDTH 13.5 % (11.5-14.5); WHITE BLOOD COUNT 11.1 x10^3/uL (4.0-11.0)
[2021-09-28 07:02] LABS: CALCIUM 7.5 mg/dL (8.5-10.1); CREATININE 0.8 mg/dL (0.7-1.3); GFR 118.9; POTASSIUM 4.6 mmol/L (3.5-5.1)
[2021-09-28] MEDS: diazePAM 5 MG TABLET PO SCH ×3 (08:39→21:25)
[2021-09-28] MEDS: LOSARTAN POTASSIUM 25 MG TABLET. PO SCH (08:39)
[2021-09-28] MEDS: POLYETHYLENE GLYCOL 3350 17 GM PACKET. PO SCH (08:40)
[2021-09-28] MEDS: BACLOFEN 10 MG TABLET. PO SCH ×2 (08:40→21:26)
[2021-09-28] MEDS: LINAGLIPTIN 5 MG TABLET PO SCH (08:41)
[2021-09-28] MEDS: PREGABALIN 50 MG CAPSULE PO SCH ×2 (08:41→21:26)
[2021-09-28] MEDS: ASPIRIN CHEWABLE 81 MG TABLET. PO SCH (09:00)
[2021-09-28] MEDS: MICONAZOLE NITRATE 2% TOPICAL CREAM 30GM TUBE. TP SCH ×3 (09:00→21:27)
[2021-09-28] MEDS: FLUTICASONE 50MCG/NASAL SPRAY 16GM BOTTLE. NS SCH (09:30)
[2021-09-28] MEDS: MUPIROCIN 2 % OINTMENT 22GM TUBE. NS SCH ×2 (09:30→21:00)
--- NOTE | 2021-09-28 09:52 | PDOC ---
PROGRESS NOTES Date of Service DATE: 09/28/21 TIME: 09:48 Subjective Subjective No new complaints. Objective Objective Vital Signs Date Time Temp Pulse Resp B/P (MAP) Pulse Ox O2 Delivery O2 Flow Rate FiO2 09/28/21 09:00 96 19 153/71 (98) 95 Nasal Cannula 1.0 09/28/21 08:00 98.2 98.2 Intake and Output 09/28/21 07:00 Intake Total 1800 ml Output Total 2960 ml Balance -1160 ml Intake Oral 1800 ml Output Urine Total 2880 ml Drainage Total 80 ml Physical Exam Physical Exam He is alert,supine in bed wiht head end propped up and no change with his neurological status. I have not observed any muscle contraction of rectus abdominis muscle and may be slight tone in left hip extensors. Plan Plan of Care To continue present rehab efforts as tolerated. Comment Review of Relevant I have reviewed the following items michelle (where applicable) has been applied. Labs Laboratory Tests Test 09/26/21 10:19 09/26/21 12:20 09/26/21 14:06 09/26/21 14:40 Glucose (Fingerstick) 184 mg/dL (70-99) 199 mg/dL (70-99) Prothrombin Time 15.6 SEC (11.7-14.0) Prothromb Time International Ratio 1.2 (0.8-1.1) Activated Partial Thromboplast Time 29 SEC (24-38) White Blood Count 12.8 x10^3/uL (4.0-11.0) Red Blood Count 3.17 x10^6/uL (4.30-5.70) Hemoglobin 8.9 g/dL (13.0-17.5) Hematocrit 27.4 % (39.0-53.0) Mean Corpuscular Volume 86 fL (79-100) Mean Corpuscular Hemoglobin 28 pg (25-35) Mean Corpuscular Hemoglobin Concent 32 g/dL (31-37) Red Cell Distribution Width 13.8 % (11.5-14.5) Platelet Count 118 x10^3/uL (140-400) Test 09/26/21 15:03 09/26/21 20:25 09/27/21 07:00 09/27/21 08:31 Glucose (Fingerstick) 207 mg/dL (70-99) 179 mg/dL (70-99) 178 mg/dL (70-99) White Blood Count 12.1 x10^3/uL (4.0-11.0) Red Blood Count 2.52 x10^6/uL (4.30-5.70) Hemoglobin 7.0 g/dL (13.0-17.5) Hematocrit 21.6 % (39.0-53.0) Mean Corpuscular Volume 86 fL (79-100) Mean Corpuscular Hemoglobin 28 pg (25-35) Mean Corpuscular Hemoglobin Concent 32 g/dL (31-37) Red Cell Distribution Width 13.8 % (11.5-14.5) Platelet Count 119 x10^3/uL (140-400) Neutrophils (%) (Auto) 78 % (31-73) Lymphocytes (%) (Auto) 10 % (24-48) Monocytes (%) (Auto) 12 % (0-9) Eosinophils (%) (Auto) 0 % (0-3) Basophils (%) (Auto) 0 % (0-3) Neutrophils # (Auto) 9.4 x10^3/uL (1.8-7.7) Lymphocytes # (Auto) 1.2 x10^3/uL (1.0-4.8) Monocytes # (Auto) 1.5 x10^3/uL (0.0-1.1) Eosinophils # (Auto) 0.0 x10^3/uL (0.0-0.7) Basophils # (Auto) 0.0 x10^3/uL (0.0-0.2) Sodium Level 138 mmol/L (136-145) Potassium Level 4.8 mmol/L (3.5-5.1) Chloride Level 103 mmol/L (98-107) Carbon Dioxide Level 27 mmol/L (21-32) Anion Gap 8 (6-14) Blood Urea Nitrogen 27 mg/dL (8-26) Creatinine 1.0 mg/dL (0.7-1.3) Estimated GFR (Cockcroft-Gault) 91.9 Glucose Level 187 mg/dL (70-99) Calcium Level 7.9 mg/dL (8.5-10.1) Test 09/27/21 13:25 09/27/21 20:11 09/28/21 04:35 09/28/21 05:35 Hemoglobin 8.6 g/dL (13.0-17.5) 8.6 g/dL (13.0-17.5) Hematocrit 26.3 % (39.0-53.0) 26.5 % (39.0-53.0) Mean Corpuscular Hemoglobin Concent 33 g/dL (31-37) 32 g/dL (31-37) Glucose (Fingerstick) 321 mg/dL (70-99) Sodium Level 136 mmol/L (136-145) Potassium Level 4.6 mmol/L (3.5-5.1) Chloride Level 103 mmol/L (98-107) Carbon Dioxide Level 30 mmol/L (21-32) Anion Gap 3 (6-14) Blood Urea Nitrogen 24 mg/dL (8-26) Creatinine 0.8 mg/dL (0.7-1.3) Estimated GFR (Cockcroft-Gault) 118.9 Glucose Level 277 mg/dL (70-99) Calcium Level 7.5 mg/dL (8.5-10.1) White Blood Count 11.1 x10^3/uL (4.0-11.0) Red Blood Count 3.09 x10^6/uL (4.30-5.70) Mean Corpuscular Volume 86 fL (79-100) Mean Corpuscular Hemoglobin 28 pg (25-35) Red Cell Distribution Width 13.5 % (11.5-14.5) Platelet Count 124 x10^3/uL (140-400) Neutrophils (%) (Auto) 84 % (31-73) Lymphocytes (%) (Auto) 10 % (24-48) Monocytes (%) (Auto) 7 % (0-9) Eosinophils (%) (Auto) 0 % (0-3) Basophils (%) (Auto) 0 % (0-3) Neutrophils # (Auto) 9.2 x10^3/uL (1.8-7.7) Lymphocytes # (Auto) 1.1 x10^3/uL (1.0-4.8) Monocytes # (Auto) 0.7 x10^3/uL (0.0-1.1) Eosinophils # (Auto) 0.0 x10^3/uL (0.0-0.7) Basophils # (Auto) 0.0 x10^3/uL (0.0-0.2) Test 09/28/21 08:31 Glucose (Fingerstick) 266 mg/dL (70-99) Laboratory Tests Test 09/27/21 13:25 09/27/21 20:11 09/28/21 04:35 09/28/21 05:35 Hemoglobin 8.6 g/dL (13.0-17.5) 8.6 g/dL (13.0-17.5) Hematocrit 26.3 % (39.0-53.0) 26.5 % (39.0-53.0) Mean Corpuscular Hemoglobin Concent 33 g/dL (31-37) 32 g/dL (31-37) Glucose (Fingerstick) 321 mg/dL (70-99) Sodium Level 136 mmol/L (136-145) Potassium Level 4.6 mmol/L (3.5-5.1) Chloride Level 103 mmol/L (98-107) Carbon Dioxide Level 30 mmol/L (21-32) Anion Gap 3 (6-14) Blood Urea Nitrogen 24 mg/dL (8-26) Creatinine 0.8 mg/dL (0.7-1.3) Estimated GFR (Cockcroft-Gault) 118.9 Glucose Level 277 mg/dL (70-99) Calcium Level 7.5 mg/dL (8.5-10.1) White Blood Count 11.1 x10^3/uL (4.0-11.0) Red Blood Count 3.09 x10^6/uL (4.30-5.70) Mean Corpuscular Volume 86 fL (79-100) Mean Corpuscular Hemoglobin 28 pg (25-35) Red Cell Distribution Width 13.5 % (11.5-14.5) Platelet Count 124 x10^3/uL (140-400) Neutrophils (%) (Auto) 84 % (31-73) Lymphocytes (%) (Auto) 10 % (24-48) Monocytes (%) (Auto) 7 % (0-9) Eosinophils (%) (Auto) 0 % (0-3) Basophils (%) (Auto) 0 % (0-3) Neutrophils # (Auto) 9.2 x10^3/uL (1.8-7.7) Lymphocytes # (Auto) 1.1 x10^3/uL (1.0-4.8) Monocytes # (Auto) 0.7 x10^3/uL (0.0-1.1) Eosinophils # (Auto) 0.0 x10^3/uL (0.0-0.7) Basophils # (Auto) 0.0 x10^3/uL (0.0-0.2) Test 09/28/21 08:31 Glucose (Fingerstick) 266 mg/dL (70-99) Medications Current Medications Fentanyl Citrate (Fentanyl 2ml Vial) 25 mcg PRN Q5MIN PRN IVP MILD PAIN 1-3; Start 09/25/21 at 06:00; Stop 09/25/21 at 20:00; Status DC Fentanyl Citrate (Fentanyl 2ml Vial) 50 mcg PRN Q5MIN PRN IVP MODERATE PAIN 4-6 Last administered on 09/25/21at 13:48; Start 09/25/21 at 06:00; Stop 09/25/21 at 20:00; Status DC Morphine Sulfate (Morphine Sulfate) 1 mg PRN Q10MIN PRN IVP SEVERE PAIN 7-10 Last administered on 09/25/21at 14:21; Start 09/25/21 at 06:00; Stop 09/25/21 at 20:00; Status DC Ringer's Solution 1,000 ml @ 30 mls/hr Q24H IV Last administered on 09/25/21at 12:54; Start 09/25/21 at 06:00; Stop 09/25/21 at 17:59; Status DC Hydromorphone HCl (Dilaudid) 0.5 mg PRN Q10MIN PRN IVP SEVERE PAIN 7-10, 2nd CHOICE Last administered on 09/25/21at 16:53; Start 09/25/21 at 06:00; Stop 09/25/21 at 20:00; Status DC Prochlorperazine Edisylate (Compazine) 5 mg PACU PRN PRN IVP NAUSEA, MRX1; Start 09/25/21 at 06:00; Stop 09/25/21 at 20:00; Status DC Cefazolin Sodium 1 gm/Sodium Chloride 1,000 ml @ 1,000 mls/hr 1X ONCE IRR Last administered on 09/25/21at 10:14; Start 09/25/21 at 06:00; Stop 09/25/21 at 06:59; Status DC Cefazolin Sodium/ Dextrose 50 ml @ 100 mls/hr 1X PREOP PRN IV PRIOR TO PROCEDURE Last administered on 09/25/21at 09:30; Start 09/25/21 at 06:00; Stop 09/25/21 at 13:39; Status DC Insulin Human Lispro (HumaLOG VIAL for OP,RR ONLY) 0-10 units PRN Q1HR PRN SQ PER PROTOCOL Last administered on 09/25/21at 17:01; Start 09/25/21 at 07:00; Stop 09/25/21 at 18:00; Status DC Bupivacaine HCl/ Epinephrine Bitart (Sensorcain-Epi 0.5% Kit) 30 ml STK-MED ONCE INJ Last administered on 09/25/21at 10:14; Start 09/25/21 at 10:14; Stop 09/25/21 at 10:30; Status DC Ketorolac Tromethamine (Toradol Im) 60 mg STK-MED ONCE INJ Last administered on 09/25/21at 10:14; Start 09/25/21 at 10:14; Stop 09/25/21 at 10:30; Status DC Thrombin 20,000 unit STK-MED ONCE TP Last administered on 09/25/21 10:14; Start 09/25/21 at 10:14; Stop 09/25/21 at 10:30; Status DC Gelatin (Gelfoam Size 100) 1 each STK-MED ONCE TP Last administered on 09/25/21at 10:14; Start 09/25/21 at 10:14; Stop 09/25/21 at 10:30; Status DC Acetaminophen (Tylenol) 650 mg PRN Q4HRS PRN PO TEMP OVER 100.4F OR MILD PAIN; Start 09/25/21 at 12:30 Aspirin (Aspirin Chewable) 81 mg DAILY PO Last administered on 09/26/21at 08:30; Start 09/26/21 at 09:00 Atorvastatin Calcium (Lipitor) 10 mg QHS PO Last administered on 09/27/21at 21:19; Start 09/25/21 at 21:00 Baclofen (Lioresal) 10 mg BID PO Last administered on 09/28/21at 08:40; Start 09/25/21 at 21:00 Diazepam (Valium) 5 mg TID PO Last administered on 09/28/21 08:39; Start 09/25/21 at 14:00 Docusate Sodium (Colace) 100 mg PRN BID PRN PO HARD STOOLS; Start 09/25/21 at 12:30 Fluticasone Propionate (Flonase) 2 spray DAILY NS Last administered on 09/28/21at 09:30; Start 09/26/21 at 09:00 Hydroxyzine HCl (Atarax) 25 mg PRN Q6HRS PRN PO itching; Start 09/25/21 at 12:30 Lidocaine (Lidoderm) 1 patch QHS TP Last administered on 09/27/21 21:20; Start 09/25/21 at 20:00 Linagliptin (Tradjenta) 5 mg DAILY PO Last administered on 09/28/21 08:41; Start 09/25/21 at 13:00 Miconazole Nitrate (Monistat-Derm) 1 crispin TID TP Last administered on 09/27/21at 14:11; Start 09/25/21 at 21:00 Midodrine (Proamatine) 2.5 mg PRN 1X PRN PO hypotension Last administered on 09/27/21 08:56; Start 09/25/21 at 12:30 Oxycodone HCl (Roxicodone) 10 mg PRN Q6HRS PRN PO MODERATE-SEVERE PAIN Last administered on 09/28/21 04:18; Start 09/25/21 at 12:30 Diclofenac Sodium (Voltaren) 1 crispin PRN TID PRN TP PAIN CONTROL; Start 09/25/21 a t 13:15; Stop 09/25/21 at 18:37; Status DC Insulin Glargine (Lantus Syringe) 4 unit QHS SQ Last administered on 09/27/21 21:35; Start 09/25/21 at 21:00 Losartan Potassium (Cozaar) 25 mg DAILY08 PO Last administered on 09/28/21 08:39; Start 09/26/21 at 08:00 Polyethylene Glycol (miraLAX PACKET) 17 gm DAILY PO Last administered on 09/28/21at 08:40; Start 09/25/21 at 14:00 Pregabalin (Lyrica) 100 mg BID PO Last administered on 09/28/21at 08:41; Start 09/25/21 at 21:00 Acetaminophen (Tylenol) 650 mg PRN Q6HRS PRN PO MILD PAIN / TEMP > 100.3'F; Start 09/25/21 at 12:30; Status Cancel Al Hydroxide/Mg Hydroxide (Mylanta Plus Xs) 30 ml PRN Q3HRS PRN PO HEARTBURN / GAS; Start 09/25/21 at 12:30 Calcium Carbonate/ Glycine (Tums) 500 mg PRN Q3HRS PRN PO INDIGESTION; Start 09/25/21 at 12:30 Diphenhydramine HCl (Benadryl) 25 mg PRN Q6HRS PRN PO ITCHING; Start 09/25/21 at 12:30 Naloxone HCl (Narcan) 0.1 mg PRN Q2MIN PRN IV SEE COMMENTS; Start 09/25/21 at 12:30 Sodium Chloride (Normal Saline Flush) 3 ml QSHIFT PRN IV AFTER MEDS AND BLOOD DRAWS; Start 09/25/21 at 12:30 Potassium Chloride/Sodium Chloride 1,000 ml @ 75 mls/hr [id number] IV Last administered on 09/26/21at 07:00; Start 09/25/21 at 12:30; Stop 09/26/21 at 17:33; Status DC Magnesium Hydroxide (Milk Of Magnesia) 2,400 mg PRN Q12HR PRN PO CONSTIPATION; Start 09/25/21 at 12:30 Cefazolin Sodium (Ancef) 1 gm Q8H IVP Last administered on 09/26/21at 04:14; Start 09/25/21 at 18:00; Stop 09/26/21 at 10:01; Status DC Fentanyl Citrate (Fentanyl 2ml Vial) 50 mcg PRN Q2HR PRN IVP MODERATE TO SEVERE PAIN Last administered on 09/27/21at 23:48; Start 09/25/21 at 12:30 Dextrose (Dextrose 50%-Water Syringe) 12.5 gm PRN Q15MIN PRN IV SEE COMMENTS; Start 09/25/21 at 12:30 Dextrose (Iv Dextrose 5%) 250 ml PRN Q15MIN PRN IV SEE COMMENTS; Start 09/25/21 at 12:30 Gelatin (Gelfoam Size 100) 1 each STK-MED ONCE .ROUTE ; Start 09/25/21 at 06:37; Stop 09/25/21 at 14:55; Status DC Bupivacaine HCl/ Epinephrine Bitart (Sensorcain-Epi 0.5% Kit) 30 ml STK-MED ONCE .ROUTE ; Start 09/25/21 at 06:37; Stop 09/25/21 at 14:55; Status DC Ketorolac Tromethamine (Toradol Im) 60 mg STK-MED ONCE .ROUTE ; Start 09/25/21 at 06:37; Stop 09/25/21 at 14:55; Status DC Thrombin 20,000 unit STK-MED ONCE TP ; Start 09/25/21 at 06:38; Stop 09/25/21 at 14:55; Status DC Propofol (Diprivan) 200 mg STK-MED ONCE IV ; Start 09/25/21 at 05:54; Stop 09/25/21 at 14:57; Status DC Lidocaine HCl (Lidocaine Pf 2% Vial) 5 ml STK-MED ONCE .ROUTE ; Start 09/25/21 at 05:54; Stop 09/25/21 at 14:57; Status DC Ondansetron HCl (Zofran) 4 mg STK-MED ONCE .ROUTE ; Start 09/25/21 at 05:54; Stop 09/25/21 at 14:57; Status DC Phenylephrine HCl (Ramone-Synephrine Inj) 10 mg STK-MED ONCE .ROUTE ; Start 09/25/21 at 05:54; Stop 09/25/21 at 14:57; Status DC Propofol 50 ml @ As Directed STK-MED ONCE IV ; Start 09/25/21 at 05:54; Stop 09/25/21 at 14:57; Status DC Dexamethasone Sodium Phosphate (Decadron) 4 mg STK-MED ONCE .ROUTE ; Start 09/25/21 at 05:54; Stop 09/25/21 at 14:57; Status DC Fentanyl Citrate (Fentanyl 2ml Vial) 100 mcg STK-MED ONCE .ROUTE ; Start 09/25/21 at 05:54; Stop 09/25/21 at 14:57; Status DC Succinylcholine Chloride (Anectine) 200 mg STK-MED ONCE .ROUTE ; Start 09/25/21 at 05:54; Stop 09/25/21 at 14:57; Status DC Remifentanil HCl (Ultiva) 1 mg STK-MED ONCE IV ; Start 09/25/21 at 05:54; Stop 09/25/21 at 14:57; Status DC Glycopyrrolate (Robinul) 1 mg STK-MED ONCE .ROUTE ; Start 09/25/21 at 07:11; Stop 09/25/21 at 15:01; Status DC Propofol 50 ml @ As Directed STK-MED ONCE IV ; Start 09/25/21 at 08:07; Stop 09/25/21 at 15:02; Status DC Ketamine HCl (Ketamine) 50 mg STK-MED ONCE .ROUTE ; Start 09/25/21 at 08:15; Stop 09/25/21 at 15:02; Status DC Hydromorphone HCl (Dilaudid) 2 mg STK-MED ONCE .ROUTE ; Start 09/25/21 at 10:44; Stop 09/25/21 at 15:03; Status DC Fentanyl Citrate (Fentanyl 2ml Vial) 100 mcg STK-MED ONCE .ROUTE ; Start 09/25/21 at 13:26; Stop 09/25/21 at 15:04; Status DC Morphine Sulfate (Morphine Sulfate) 2 mg STK-MED ONCE .ROUTE ; Start 09/25/21 at 14:04; Stop 09/25/21 at 15:05; Status DC Hydromorphone HCl (Dilaudid) 2 mg STK-MED ONCE .ROUTE ; Start 09/25/21 at 14:54; Stop 09/25/21 at 15:06; Status DC Menthol/Methyl Salicylate ([place] Greaseless Cream) 1 crispin PRN Q30MIN PRN TP MUSCLE PAIN Last administered on 09/27/21at 21:20; Start 09/25/21 at 18:45 Mupirocin (Bactroban) 1 crispin BID NS Last administered on 09/28/21at 09:30; Start 09/26/21 at 09:00 Dexamethasone Sodium Phosphate (Decadron) 10 mg 1X ONCE IVP Last administered on 09/26/21at 07:31; Start 09/26/21 at 07:30; Stop 09/26/21 at 07:31; Status DC Cefazolin Sodium 1 gm/Sodium Chloride 1,000 ml @ 1,000 mls/hr 1X ONCE IRR Last administered on 09/26/21at 11:52; Start 09/26/21 at 10:30; Stop 09/26/21 at 11:29; Status DC Cefazolin Sodium (Ancef) 1 gm STK-MED ONCE IVP ; Start 09/26/21 at 10:05; Stop 09/26/21 at 10:06; Status DC Lidocaine HCl (Lidocaine Pf 2% Vial) 5 ml STK-MED ONCE .ROUTE ; Start 09/26/21 at 10:18; Stop 09/26/21 at 10:18; Status DC Ondansetron HCl (Zofran) 4 mg STK-MED ONCE .ROUTE ; Start 09/26/21 at 10:18; Stop 09/26/21 at 10:18; Status DC Propofol (Diprivan) 200 mg STK-MED ONCE IV ; Start 09/26/21 at 10:18; Stop 09/26/21 at 10:19; Status DC Dexamethasone Sodium Phosphate (Decadron) 4 mg STK-MED ONCE .ROUTE ; Start 09/26/21 at 10:18; Stop 09/26/21 at 10:19; Status DC Sevoflurane (Ultane) 30 ml STK-MED ONCE IH ; Start 09/26/21 at 10:18; Stop 09/26/21 at 10:19; Status DC Fentanyl Citrate (Fentanyl 2ml Vial) 100 mcg STK-MED ONCE .ROUTE ; Start 09/26/21 at 10:19; Stop 09/26/21 at 10:19; Status DC Rocuronium [place] (Zemuron) 50 mg STK-MED ONCE .ROUTE ; Start 09/26/21 at 10:19; Stop 09/26/21 at 10:19; Status DC Insulin Human Lispro (HumaLOG VIAL for OP,RR ONLY) 0-10 units PRN Q1HR PRN SQ PER PROTOCOL Last administered on 09/26/21at 15:11; Start 09/26/21 at 10:30; Stop 09/26/21 at 18:00; Status DC Sugammadex Sodium (Bridion) 200 mg 1X ONCE IVP ; Start 09/26/21 at 10:30; Stop 09/26/21 at 10:31; Status DC Gelatin (Gelfoam Size 100) 1 each STK-MED ONCE .ROUTE Last administered on 09/26/21at 11:52; Start 09/26/21 at 10:30; Stop 09/26/21 at 10:30; Status DC Bupivacaine HCl/ Epinephrine Bitart (Sensorcain-Epi 0.5% Kit) 30 ml STK-MED ONCE .ROUTE ; Start 09/26/21 at 10:30; Stop 09/26/21 at 10:30; Status DC Ketorolac Tromethamine (Toradol Im) 60 mg STK-MED ONCE .ROUTE ; Start 09/26/21 at 10:30; Stop 09/26/21 at 10:30; Status DC Thrombin 20,000 unit STK-MED ONCE TP Last administered on 09/26/21at 11:52; Start 09/26/21 at 10:30; Stop 09/26/21 at 10:31; Status DC Cefazolin Sodium/ Dextrose 50 ml @ As Directed STK-MED ONCE IV ; Start 09/26/21 at 10:32; Stop 09/26/21 at 10:32; Status DC Vancomycin HCl 1 gm/Sodium Chloride 250 ml @ 250 mls/hr PREOP PRN PRN IV PRIOR TO PROCEDURE; Start 09/26/21 at 10:45; Stop 09/26/21 at 14:00; Status DC Cefazolin Sodium/ Dextrose 50 ml @ 100 mls/hr 1X ONCE IV Last administered on 09/26/21at 11:00; Start 09/26/21 at 11:00; Stop 09/26/21 at 11:29; Status DC Dexamethasone Sodium Phosphate (Decadron) 4 mg STK-MED ONCE .ROUTE ; Start 09/26/21 at 11:04; Stop 09/26/21 at 11:04; Status DC Glycopyrrolate (Robinul) 1 mg STK-MED ONCE .ROUTE ; Start 09/26/21 at 11:04; Stop 09/26/21 at 11:04; Status DC Hydromorphone HCl (Dilaudid) 2 mg STK-MED ONCE .ROUTE ; Start 09/26/21 at 11:56; Stop 09/26/21 at 11:56; Status DC Fentanyl Citrate (Fentanyl 2ml Vial) 25 mcg PRN Q5MIN PRN IVP MILD PAIN 1-3; Start 09/26/21 at 14:30; Stop 09/26/21 at 18:15; Status DC Fentanyl Citrate (Fentanyl 2ml Vial) 50 mcg PRN Q5MIN PRN IVP MODERATE PAIN 4- 6; Start 09/26/21 at 14:30; Stop 09/26/21 at 18:15; Status DC Morphine Sulfate (Morphine Sulfate) 1 mg PRN Q10MIN PRN IVP SEVERE PAIN 7-10; Start 09/26/21 at 14:30; Stop 09/26/21 at 18:15; Status DC Ringer's Solution 1,000 ml @ 30 mls/hr Q24H IV Last administered on 09/26/21at 15:18; Start 09/26/21 at 14:30; Stop 09/26/21 at 21:00; Status DC Hydromorphone HCl (Dilaudid) 0.5 mg PRN Q10MIN PRN IVP SEVERE PAIN 7-10, 2nd CHOICE; Start 09/26/21 at 14:30; Stop 09/26/21 at 18:15; Status DC Prochlorperazine Edisylate (Compazine) 5 mg PACU PRN PRN IVP NAUSEA, MRX1; Start 09/26/21 at 14:30; Stop 09/26/21 at 21:00; Status DC Fentanyl Citrate (Fentanyl 2ml Vial) 100 mcg STK-MED ONCE .ROUTE ; Start 09/26/21 at 14:23; Stop 09/26/21 at 14:25; Status DC Fentanyl Citrate (Fentanyl 2ml Vial) 25 mcg PRN Q5MIN PRN IVP MILD PAIN 1-3; Start 09/26/21 at 14:30; Stop 09/27/21 at 14:29; Status UNV Fentanyl Citrate (Fentanyl 2ml Vial) 50 mcg PRN Q5MIN PRN IVP MODERATE PAIN 4- 6; Start 09/26/21 at 14:30; Stop 09/27/21 at 14:29; Status UNV Morphine Sulfate (Morphine Sulfate) 1 mg PRN Q10MIN PRN IVP SEVERE PAIN 7-10; Start 09/26/21 at 14:30; Stop 09/27/21 at 14:29; Status UNV Ringer's Solution 1,000 ml @ 30 mls/hr Q24H IV ; Start 09/26/21 at 14:30; Stop 09/27/21 at 02:29; Status UNV Hydromorphone HCl (Dilaudid) 0.5 mg PRN Q10MIN PRN IVP SEVERE PAIN 7-10, 2nd CHOICE; Start 09/26/21 at 14:30; Stop 09/27/21 at 14:29; Status UNV Prochlorperazine Edisylate (Compazine) 5 mg PACU PRN PRN IVP NAUSEA, MRX1; S tart 09/26/21 at 14:30; Stop 09/27/21 at 14:29; Status UNV Dexamethasone Sodium Phosphate (Decadron) 4 mg Q6HRS IVP Last administered on 09/28/21at 05:06; Start 09/26/21 at 18:00; Stop 09/28/21 at 06:00; Status DC Sodium Chloride 1,000 ml @ 100 mls/hr Q10H IV Last administered on 09/28/21at 00:08; Start 09/26/21 at 17:30 Cefazolin Sodium (Ancef) 1 gm Q8HRS IVP ; Start 09/27/21 at 06:00; Stop 09/27/21 at 05:47; Status DC Vancomycin HCl 1 gm/Sodium Chloride 250 ml @ 166.667 mls/hr 1X ONCE IV Last administered on 09/27/21at 06:27; Start 09/27/21 at 06:00; Stop 09/27/21 at 07:29; Status DC Active Scripts Active Dok (Docusate Sodium) 100 Mg Capsule 100 Mg PO PRN BID PRN 30 Days Tylenol (Acetaminophen) 325 Mg Tablet 650 Mg PO PRN Q4HRS PRN 30 Days Valium (Diazepam) 5 Mg Tablet 5 Mg PO TID Atorvastatin Calcium 10 Mg Tablet 10 Mg PO QHS Reported Midodrine Hcl 2.5 Mg Tablet 2.5 Mg PO PRN 1X PRN Aspirin 81 Mg Tab.chew 81 Mg PO DAILY Baclofen 10 Mg Tablet 10 Mg PO BID Lyrica (Pregabalin) 100 Mg Capsule 100 Mg PO BID 30 Days Polyethylene Glycol 3350 2,500 Gm Powder 17 Gm PO DAILY 30 Days Oxycodone HCl 5 Mg Tablet 10 Mg PO PRN Q6HRS PRN Micatin (Miconazole Nitrate) 14 Gm Cream..g. 1 [place] TP TID Tradjenta (Linagliptin) 5 Mg Tablet 5 Mg PO DAILY Lidocaine PATCH (Lidocaine) 1 Each Adh..patch 1 Each TP DAILY REMOVE AFTER 12 HOURS Levemir (Insulin Detemir) 100 Unit/1 Ml Vial 4 Unit SQ HS Hydroxyzine Hcl 25 Mg Tablet 25 Mg PO PRN Q6HRS PRN Fluticasone Propionate Nasal [place] (Fluticasone Propionate) 16 Gm [place].susp 2 [place] NS DAILY Diclofenac Sodium 100 Gm Gel..gram. 100 Gm TP PRN TID PRN Losartan Potassium 100 Mg Tablet 25 Tab PO DAILY08 Vitals/I & O Vital Sign - Last 24 Hours 09/27/21 09/27/21 09/27/21 09/27/21 10:00 10:45 10:55 11:00 Temp 98.0 98.0 98.0 98.0 Pulse 98 93 93 103 Resp 18 16 16 14 B/P (MAP) 114/52 (72) 113/54 113/54 117/53 (74) Pulse Ox 98 98 O2 Delivery Nasal Cannula Nasal Cannula O2 Flow Rate 1.0 1.0 09/27/21 09/27/21 09/27/21 09/27/21 11:10 11:46 12:00 12:10 Temp 98.5 97.7 97.7 98.5 97.7 97.7 Pulse 98 93 90 Resp 12 14 16 18 B/P (MAP) 117/53 111/55 (73) 119/57 Pulse Ox 97 98 O2 Delivery Nasal Cannula Nasal Cannula O2 Flow Rate 1.0 1.0 09/27/21 09/27/21 09/27/21 09/27/21 12:16 13:00 14:00 14:53 Pulse 94 100 Resp 16 16 14 15 B/P (MAP) 114/56 (75) 131/62 (85) Pulse Ox 97 98 97 97 O2 Delivery Nasal Cannula Nasal Cannula Nasal Cannula Nasal Cannula O2 Flow Rate 1.0 1.0 1.0 1.0 09/27/21 09/27/21 09/27/21 09/27/21 14:54 15:00 15:23 15:23 Pulse 96 Resp 15 16 14 14 B/P (MAP) 136/66 (89) Pulse Ox 97 98 97 97 O2 Delivery Nasal Cannula Nasal Cannula Nasal Cannula Nasal Cannula O2 Flow Rate 1.0 1.0 1.0 1.0 09/27/21 09/27/21 09/27/21 09/27/21 16:00 17:00 17:49 18:00 Temp 98.0 98.0 Pulse 98 100 98 Resp 16 14 20 18 B/P (MAP) 127/64 (85) 146/70 (95) 139/66 (90) Pulse Ox 98 98 97 98 O2 Delivery Nasal Cannula Nasal Cannula Nasal Cannula Nasal Cannula O2 Flow Rate 1.0 1.0 1.0 1.0 09/27/21 09/27/21 09/27/21 09/27/21 19:00 20:00 20:00 21:00 Pulse 101 96 94 Resp 25 17 19 B/P (MAP) 139/71 (93) 140/63 (88) 133/63 (86) Pulse Ox 98 97 97 O2 Delivery Nasal Cannula Nasal Cannula Nasal Cannula O2 Flow Rate 1.0 1.0 1.0 1.0 09/27/21 09/27/21 09/28/21 09/28/21 22:00 23:00 00:01 01:00 Temp 98.2 98.2 Pulse 88 74 72 69 Resp 18 15 12 14 B/P (MAP) 111/59 (76) 110/58 (75) 118/57 (77) 110/54 (72) Pulse Ox 97 97 98 97 O2 Delivery Nasal Cannula Nasal Cannula Nasal Cannula Nasal Cannula O2 Flow Rate 1.0 1.0 1.0 1.0 09/28/21 09/28/21 09/28/21 09/28/21 02:00 03:00 04:00 05:00 Temp 98.4 98.4 Pulse 64 62 82 84 Resp 13 19 19 19 B/P (MAP) 114/57 (76) 120/62 (81) 151/87 (108) 162/84 (110) Pulse Ox 98 98 96 97 O2 Delivery Nasal Cannula Nasal Cannula Nasal Cannula Nasal Cannula O2 Flow Rate 1.0 1.0 1.0 1.0 09/28/21 09/28/21 09/28/21 09/28/21 06:00 07:00 08:00 08:00 Temp 98.2 98.2 Pulse 77 76 74 Resp 16 17 18 B/P (MAP) 142/76 (98) 141/61 (87) 131/59 (83) Pulse Ox 97 98 97 O2 Delivery Nasal Cannula Nasal Cannula Nasal Cannula Nasal Cannula O2 Flow Rate 1.0 1.0 1.0 1.0 09/28/21 09/28/21 08:39 09:00 Pulse 76 96 Resp 19 B/P (MAP) 141/61 153/71 (98) Pulse Ox 95 O2 Delivery Nasal Cannula O2 Flow Rate 1.0 Intake and Output 09/27/21 09/27/21 09/28/21 15:00 23:00 07:00 Intake Total 960 ml 240 ml 600 ml Output Total 830 ml 590 ml 1540 ml Balance 130 ml -350 ml -940 ml Justifications for Admission Other Justification uncontrolled diabetes TERRY JURADO MD Sep 28, 2021 09:52
--- NOTE | 2021-09-28 11:14 | PDOC ---
[employer] PROGRESS NOTE Date of Service DOS: DATE: 09/28/21 TIME: 11:13 Chief Complaint Chief Complaint Postoperative cervical laminectomy. We are going to resume his home meds plus the sliding scale. Wound care, PT, OT. DVT prophylaxis. Full code. Continue the current dexamethasone and cefazolin. Suspect he might need prison. Transfuse 1 unit packed red blood cells today History of Present Illness History of Present Illness 09/28 Evaluate examined at bedside. Resting in bed had no complaints to me. Said pain is quite improved. Did okay with transfusion yesterday. Continue current treatments. PT/OT. Discussed with bedside RN. D 09/27 Patient evaluated examined at bedside. Was resting in bed easily awoken able to answer some questions. Some movement in his upper extremities but very limited in lower. Transfuse 1 unit today. Plan discussed with RN. Vitals/I&O Vitals/I&O: Vital Signs Date Time Temp Pulse Resp B/P (MAP) Pulse Ox O2 Delivery O2 Flow Rate FiO2 09/28/21 10:00 92 16 160/66 (97) 95 Room Air 09/28/21 09:00 1.0 09/28/21 08:00 98.2 98.2 I & O 09/27/21 09/27/21 09/28/21 15:00 23:00 07:00 Intake Total 960 ml 240 ml 600 ml Output Total 830 ml 590 ml 1540 ml Balance 130 ml -350 ml -940 ml Physical Exam General: Alert, Oriented X3, Cooperative Heart: Regular rate Lungs: Clear Abdomen: Normal bowel sounds, Soft, No tenderness Extremities: No edema, Normal pulses Skin: Other (dressing changed, ozzing, favio intact, drain in place- output noted) Labs Labs: Laboratory Tests Test 09/27/21 13:25 09/27/21 20:11 09/28/21 04:35 09/28/21 05:35 Hemoglobin 8.6 g/dL (13.0-17.5) 8.6 g/dL (13.0-17.5) Hematocrit 26.3 % (39.0-53.0) 26.5 % (39.0-53.0) Mean Corpuscular Hemoglobin Concent 33 g/dL (31-37) 32 g/dL (31-37) Glucose (Fingerstick) 321 mg/dL (70-99) Sodium Level 136 mmol/L (136-145) Potassium Level 4.6 mmol/L (3.5-5.1) Chloride Level 103 mmol/L (98-107) Carbon Dioxide Level 30 mmol/L (21-32) Anion Gap 3 (6-14) Blood Urea Nitrogen 24 mg/dL (8-26) Creatinine 0.8 mg/dL (0.7-1.3) Estimated GFR (Cockcroft-Gault) 118.9 Glucose Level 277 mg/dL (70-99) Calcium Level 7.5 mg/dL (8.5-10.1) White Blood Count 11.1 x10^3/uL (4.0-11.0) Red Blood Count 3.09 x10^6/uL (4.30-5.70) Mean Corpuscular Volume 86 fL (79-100) Mean Corpuscular Hemoglobin 28 pg (25-35) Red Cell Distribution Width 13.5 % (11.5-14.5) Platelet Count 124 x10^3/uL (140-400) Neutrophils (%) (Auto) 84 % (31-73) Lymphocytes (%) (Auto) 10 % (24-48) Monocytes (%) (Auto) 7 % (0-9) Eosinophils (%) (Auto) 0 % (0-3) Basophils (%) (Auto) 0 % (0-3) Neutrophils # (Auto) 9.2 x10^3/uL (1.8-7.7) Lymphocytes # (Auto) 1.1 x10^3/uL (1.0-4.8) Monocytes # (Auto) 0.7 x10^3/uL (0.0-1.1) Eosinophils # (Auto) 0.0 x10^3/uL (0.0-0.7) Basophils # (Auto) 0.0 x10^3/uL (0.0-0.2) Test 09/28/21 08:31 Glucose (Fingerstick) 266 mg/dL (70-99) Comment Review of Relevant I have reviewed the following items michelle (where applicable) has been applied. Justifications for Admission Other Justification uncontrolled diabetes STACY LÓPEZ MD Sep 28, 2021 11:14
[2021-09-28] MEDS: METHYL SALICYLATE/MENTHOL TOPICAL CREAM 57GM TUBE. TP PRN ×2 (13:21→21:27)
--- NOTE | 2021-09-28 16:31 | PDOC ---
PROGRESS NOTES Date of Service DATE: 09/28/21 TIME: 16:26 Subjective Subjective POD #2 S/P Evacuation of epidural hematoma, s/p cervical laminectomy and fusion 09/25/21 Pain improving increased sensation in hand and lower extremities Objective Objective Vital Signs Date Time Temp Pulse Resp B/P (MAP) Pulse Ox O2 Delivery O2 Flow Rate FiO2 09/28/21 16:00 98.2 68 18 124/54 (77) 97 Nasal Cannula 1.0 98.2 Intake and Output 09/28/21 07:00 Intake Total 1800 ml Output Total 2960 ml Balance -1160 ml Intake Oral 1800 ml Output Urine Total 2880 ml Drainage Total 80 ml Physical Exam General: Alert, Oriented X3, Cooperative, No acute distress Neuro: Normal speech, Other (sensation improved in upper and lower extremites, moves upper extremities with 3/5 strength, hand grasps trace) Skin: Other (dressing C,D,I, drain in place - output noted) Plan Plan of Care keep in ICU SCDs if not further improvement tomorrow will obtain cervical MRI D/W RN Comment Review of Relevant I have reviewed the following items michelle (where applicable) has been applied. Labs Laboratory Tests Test 09/26/21 20:25 09/27/21 07:00 09/27/21 08:31 09/27/21 13:25 Glucose (Fingerstick) 179 mg/dL (70-99) 178 mg/dL (70-99) White Blood Count 12.1 x10^3/uL (4.0-11.0) Red Blood Count 2.52 x10^6/uL (4.30-5.70) Hemoglobin 7.0 g/dL (13.0-17.5) 8.6 g/dL (13.0-17.5) Hematocrit 21.6 % (39.0-53.0) 26.3 % (39.0-53.0) Mean Corpuscular Volume 86 fL (79-100) Mean Corpuscular Hemoglobin 28 pg (25-35) Mean Corpuscular Hemoglobin Concent 32 g/dL (31-37) 33 g/dL (31-37) Red Cell Distribution Width 13.8 % (11.5-14.5) Platelet Count 119 x10^3/uL (140-400) Neutrophils (%) (Auto) 78 % (31-73) Lymphocytes (%) (Auto) 10 % (24-48) Monocytes (%) (Auto) 12 % (0-9) Eosinophils (%) (Auto) 0 % (0-3) Basophils (%) (Auto) 0 % (0-3) Neutrophils # (Auto) 9.4 x10^3/uL (1.8-7.7) Lymphocytes # (Auto) 1.2 x10^3/uL (1.0-4.8) Monocytes # (Auto) 1.5 x10^3/uL (0.0-1.1) Eosinophils # (Auto) 0.0 x10^3/uL (0.0-0.7) Basophils # (Auto) 0.0 x10^3/uL (0.0-0.2) Sodium Level 138 mmol/L (136-145) Potassium Level 4.8 mmol/L (3.5-5.1) Chloride Level 103 mmol/L (98-107) Carbon Dioxide Level 27 mmol/L (21-32) Anion Gap 8 (6-14) Blood Urea Nitrogen 27 mg/dL (8-26) Creatinine 1.0 mg/dL (0.7-1.3) Estimated GFR (Cockcroft-Gault) 91.9 Glucose Level 187 mg/dL (70-99) Calcium Level 7.9 mg/dL (8.5-10.1) Test 09/27/21 20:11 09/28/21 04:35 09/28/21 05:35 09/28/21 08:31 Glucose (Fingerstick) 321 mg/dL (70-99) 266 mg/dL (70-99) Sodium Level 136 mmol/L (136-145) Potassium Level 4.6 mmol/L (3.5-5.1) Chloride Level 103 mmol/L (98-107) Carbon Dioxide Level 30 mmol/L (21-32) Anion Gap 3 (6-14) Blood Urea Nitrogen 24 mg/dL (8-26) Creatinine 0.8 mg/dL (0.7-1.3) Estimated GFR (Cockcroft-Gault) 118.9 Glucose Level 277 mg/dL (70-99) Calcium Level 7.5 mg/dL (8.5-10.1) White Blood Count 11.1 x10^3/uL (4.0-11.0) Red Blood Count 3.09 x10^6/uL (4.30-5.70) Hemoglobin 8.6 g/dL (13.0-17.5) Hematocrit 26.5 % (39.0-53.0) Mean Corpuscular Volume 86 fL (79-100) Mean Corpuscular Hemoglobin 28 pg (25-35) Mean Corpuscular Hemoglobin Concent 32 g/dL (31-37) Red Cell Distribution Width 13.5 % (11.5-14.5) Platelet Count 124 x10^3/uL (140-400) Neutrophils (%) (Auto) 84 % (31-73) Lymphocytes (%) (Auto) 10 % (24-48) Monocytes (%) (Auto) 7 % (0-9) Eosinophils (%) (Auto) 0 % (0-3) Basophils (%) (Auto) 0 % (0-3) Neutrophils # (Auto) 9.2 x10^3/uL (1.8-7.7) Lymphocytes # (Auto) 1.1 x10^3/uL (1.0-4.8) Monocytes # (Auto) 0.7 x10^3/uL (0.0-1.1) Eosinophils # (Auto) 0.0 x10^3/uL (0.0-0.7) Basophils # (Auto) 0.0 x10^3/uL (0.0-0.2) Laboratory Tests Test 09/27/21 20:11 09/28/21 04:35 09/28/21 05:35 09/28/21 08:31 Glucose (Fingerstick) 321 mg/dL (70-99) 266 mg/dL (70-99) Sodium Level 136 mmol/L (136-145) Potassium Level 4.6 mmol/L (3.5-5.1) Chloride Level 103 mmol/L (98-107) Carbon Dioxide Level 30 mmol/L (21-32) Anion Gap 3 (6-14) Blood Urea Nitrogen 24 mg/dL (8-26) Creatinine 0.8 mg/dL (0.7-1.3) Estimated GFR (Cockcroft-Gault) 118.9 Glucose Level 277 mg/dL (70-99) Calcium Level 7.5 mg/dL (8.5-10.1) White Blood Count 11.1 x10^3/uL (4.0-11.0) Red Blood Count 3.09 x10^6/uL (4.30-5.70) Hemoglobin 8.6 g/dL (13.0-17.5) Hematocrit 26.5 % (39.0-53.0) Mean Corpuscular Volume 86 fL (79-100) Mean Corpuscular Hemoglobin 28 pg (25-35) Mean Corpuscular Hemoglobin Concent 32 g/dL (31-37) Red Cell Distribution Width 13.5 % (11.5-14.5) Platelet Count 124 x10^3/uL (140-400) Neutrophils (%) (Auto) 84 % (31-73) Lymphocytes (%) (Auto) 10 % (24-48) Monocytes (%) (Auto) 7 % (0-9) Eosinophils (%) (Auto) 0 % (0-3) Basophils (%) (Auto) 0 % (0-3) Neutrophils # (Auto) 9.2 x10^3/uL (1.8-7.7) Lymphocytes # (Auto) 1.1 x10^3/uL (1.0-4.8) Monocytes # (Auto) 0.7 x10^3/uL (0.0-1.1) Eosinophils # (Auto) 0.0 x10^3/uL (0.0-0.7) Basophils # (Auto) 0.0 x10^3/uL (0.0-0.2) Medications Current Medications Fentanyl Citrate (Fentanyl 2ml Vial) 25 mcg PRN Q5MIN PRN IVP MILD PAIN 1-3; Start 09/25/21 at 06:00; Stop 09/25/21 at 20:00; Status DC Fentanyl Citrate (Fentanyl 2ml Vial) 50 mcg PRN Q5MIN PRN IVP MODERATE PAIN 4-6 Last administered on 09/25/21at 13:48; Start 09/25/21 at 06:00; Stop 09/25/21 at 20:00; Status DC Morphine Sulfate (Morphine Sulfate) 1 mg PRN Q10MIN PRN IVP SEVERE PAIN 7-10 Last administered on 09/25/21at 14:21; Start 09/25/21 at 06:00; Stop 09/25/21 at 20:00; Status DC Ringer's Solution 1,000 ml @ 30 mls/hr Q24H IV Last administered on 09/25/21at 12:54; Start 09/25/21 at 06:00; Stop 09/25/21 at 17:59; Status DC Hydromorphone HCl (Dilaudid) 0.5 mg PRN Q10MIN PRN IVP SEVERE PAIN 7-10, 2nd CHOICE Last administered on 09/25/21at 16:53; Start 09/25/21 at 06:00; Stop 09/25/21 at 20:00; Status DC Prochlorperazine Edisylate (Compazine) 5 mg PACU PRN PRN IVP NAUSEA, MRX1; Start 09/25/21 at 06:00; Stop 09/25/21 at 20:00; Status DC Cefazolin Sodium 1 gm/Sodium Chloride 1,000 ml @ 1,000 mls/hr 1X ONCE IRR Last administered on 09/25/21at 10:14; Start 09/25/21 at 06:00; Stop 09/25/21 at 06:59; Status DC Cefazolin Sodium/ Dextrose 50 ml @ 100 mls/hr 1X PREOP PRN IV PRIOR TO PROCEDURE Last administered on 09/25/21at 09:30; Start 09/25/21 at 06:00; Stop 09/25/21 at 13:39; Status DC Insulin Human Lispro (HumaLOG VIAL for OP,RR ONLY) 0-10 units PRN Q1HR PRN SQ PER PROTOCOL Last administered on 09/25/21at 17:01; Start 09/25/21 at 07:00; Stop 09/25/21 at 18:00; Status DC Bupivacaine HCl/ Epinephrine Bitart (Sensorcain-Epi 0.5% Kit) 30 ml STK-MED ONCE INJ Last administered on 09/25/21at 10:14; Start 09/25/21 at 10:14; Stop 09/25/21 at 10:30; Status DC Ketorolac Tromethamine (Toradol Im) 60 mg STK-MED ONCE INJ Last administered on 09/25/21at 10:14; Start 09/25/21 at 10:14; Stop 09/25/21 at 10:30; Status DC Thrombin 20,000 unit STK-MED ONCE TP Last administered on 09/25/21 10:14; S tart 09/25/21 at 10:14; Stop 09/25/21 at 10:30; Status DC Gelatin (Gelfoam Size 100) 1 each STK-MED ONCE TP Last administered on 09/25/21 10:14; Start 09/25/21 at 10:14; Stop 09/25/21 at 10:30; Status DC Acetaminophen (Tylenol) 650 mg PRN Q4HRS PRN PO TEMP OVER 100.4F OR MILD PAIN; Start 09/25/21 at 12:30 Aspirin (Aspirin Chewable) 81 mg DAILY PO Last administered on 09/26/21 08:30; Start 09/26/21 at 09:00 Atorvastatin Calcium (Lipitor) 10 mg QHS PO Last administered on 09/27/21 21:19; Start 09/25/21 at 21:00 Baclofen (Lioresal) 10 mg BID PO Last administered on 09/28/21 08:40; Start 09/25/21 at 21:00 Diazepam (Valium) 5 mg TID PO Last administered on 09/28/21 08:39; Start 09/25/21 at 14:00 Docusate Sodium (Colace) 100 mg PRN BID PRN PO HARD STOOLS; Start 09/25/21 at 12:30 Fluticasone Propionate (Flonase) 2 spray DAILY NS Last administered on 09/28/21 09:30; Start 09/26/21 at 09:00 Hydroxyzine HCl (Atarax) 25 mg PRN Q6HRS PRN PO itching; Start 09/25/21 at 12:30 Lidocaine (Lidoderm) 1 patch QHS TP Last administered on 09/27/21 21:20; Start 09/25/21 at 20:00 Linagliptin (Tradjenta) 5 mg DAILY PO Last administered on 09/28/21 08:41; Start 09/25/21 at 13:00 Miconazole Nitrate (Monistat-Derm) 1 crispin TID TP Last administered on 09/27/21 14:11; Start 09/25/21 at 21:00 Midodrine (Proamatine) 2.5 mg PRN 1X PRN PO hypotension Last administered on 2/9/22at 08:56; Start 09/25/21 at 12:30 Oxycodone HCl (Roxicodone) 10 mg PRN Q6HRS PRN PO MODERATE-SEVERE PAIN Last administered on 09/28/21at 04:18; Start 09/25/21 at 12:30 Diclofenac Sodium (Voltaren) 1 cripsin PRN TID PRN TP PAIN CONTROL; Start 09/25/21 at 13:15; Stop 09/25/21 at 18:37; Status DC Insulin Glargine (Lantus Syringe) 4 unit QHS SQ Last administered on 09/27/21at 21:35; Start 09/25/21 at 21:00 Losartan Potassium (Cozaar) 25 mg DAILY08 PO Last administered on 09/28/21at 08:39; Start 09/26/21 at 08:00 Polyethylene Glycol (miraLAX PACKET) 17 gm DAILY PO Last administered on 09/28/21at 08:40; Start 09/25/21 at 14:00 Pregabalin (Lyrica) 100 mg BID PO Last administered on 09/28/21at 08:41; Start 09/25/21 at 21:00 Acetaminophen (Tylenol) 650 mg PRN Q6HRS PRN PO MILD PAIN / TEMP > 100.3'F; Start 09/25/21 at 12:30; Status Cancel Al Hydroxide/Mg Hydroxide (Mylanta Plus Xs) 30 ml PRN Q3HRS PRN PO HEARTBURN / GAS; Start 09/25/21 at 12:30 Calcium Carbonate/ Glycine (Tums) 500 mg PRN Q3HRS PRN PO INDIGESTION; Start 09/25/21 at 12:30 Diphenhydramine HCl (Benadryl) 25 mg PRN Q6HRS PRN PO ITCHING; Start 09/25/21 at 12:30 Naloxone HCl (Narcan) 0.1 mg PRN Q2MIN PRN IV SEE COMMENTS; Start 09/25/21 at 12:30 Sodium Chloride (Normal Saline Flush) 3 ml QSHIFT PRN IV AFTER MEDS AND BLOOD DRAWS; Start 09/25/21 at 12:30 Potassium Chloride/Sodium Chloride 1,000 ml @ 75 mls/hr [id number] IV Last administered on 09/26/21at 07:00; Start 09/25/21 at 12:30; Stop 09/26/21 at 17:33; Status DC Magnesium Hydroxide (Milk Of Magnesia) 2,400 mg PRN Q12HR PRN PO CONSTIPATION; Start 09/25/21 at 12:30 Cefazolin Sodium (Ancef) 1 gm Q8H IVP Last administered on 09/26/21at 04:14; Start 09/25/21 at 18:00; Stop 09/26/21 at 10:01; Status DC Fentanyl Citrate (Fentanyl 2ml Vial) 50 mcg PRN Q2HR PRN IVP MODERATE TO SEVERE PAIN Last administered on 09/27/21at 23:48; Start 09/25/21 at 12:30 Dextrose (Dextrose 50%-Water Syringe) 12.5 gm PRN Q15MIN PRN IV SEE COMMENTS; Start 09/25/21 at 12:30 Dextrose (Iv Dextrose 5%) 250 ml PRN Q15MIN PRN IV SEE COMMENTS; Start 09/25/21 at 12:30 Gelatin (Gelfoam Size 100) 1 each STK-MED ONCE .ROUTE ; Start 09/25/21 at 06:37; Stop 09/25/21 at 14:55; Status DC Bupivacaine HCl/ Epinephrine Bitart (Sensorcain-Epi 0.5% Kit) 30 ml STK-MED ONCE .ROUTE ; Start 09/25/21 at 06:37; Stop 09/25/21 at 14:55; Status DC Ketorolac Tromethamine (Toradol Im) 60 mg STK-MED ONCE .ROUTE ; Start 09/25/21 at 06:37; Stop 09/25/21 at 14:55; Status DC Thrombin 20,000 unit STK-MED ONCE TP ; Start 09/25/21 at 06:38; Stop 09/25/21 at 14:55; Status DC Propofol (Diprivan) 200 mg STK-MED ONCE IV ; Start 09/25/21 at 05:54; Stop 09/25/21 at 14:57; Status DC Lidocaine HCl (Lidocaine Pf 2% Vial) 5 ml STK-MED ONCE .ROUTE ; Start 09/25/21 at 05:54; Stop 09/25/21 at 14:57; Status DC Ondansetron HCl (Zofran) 4 mg STK-MED ONCE .ROUTE ; Start 09/25/21 at 05:54; Stop 09/25/21 at 14:57; Status DC Phenylephrine HCl (Ramone-Synephrine Inj) 10 mg STK-MED ONCE .ROUTE ; Start 09/25/21 at 05:54; Stop 09/25/21 at 14:57; Status DC Propofol 50 ml @ As Directed STK-MED ONCE IV ; Start 09/25/21 at 05:54; Stop 09/25/21 at 14:57; Status DC Dexamethasone Sodium Phosphate (Decadron) 4 mg STK-MED ONCE .ROUTE ; Start 09/25/21 at 05:54; Stop 09/25/21 at 14:57; Status DC Fentanyl Citrate (Fentanyl 2ml Vial) 100 mcg STK-MED ONCE .ROUTE ; Start 09/25/21 at 05:54; Stop 09/25/21 at 14:57; Status DC Succinylcholine Chloride (Anectine) 200 mg STK-MED ONCE .ROUTE ; Start 09/25/21 at 05:54; Stop 09/25/21 at 14:57; Status DC Remifentanil HCl (Ultiva) 1 mg STK-MED ONCE IV ; Start 09/25/21 at 05:54; Stop 09/25/21 at 14:57; Status DC Glycopyrrolate (Robinul) 1 mg STK-MED ONCE .ROUTE ; Start 09/25/21 at 07:11; Stop 09/25/21 at 15:01; Status DC Propofol 50 ml @ As Directed STK-MED ONCE IV ; Start 09/25/21 at 08:07; Stop 09/25/21 at 15:02; Status DC Ketamine HCl (Ketamine) 50 mg STK-MED ONCE .ROUTE ; Start 09/25/21 at 08:15; Stop 09/25/21 at 15:02; Status DC Hydromorphone HCl (Dilaudid) 2 mg STK-MED ONCE .ROUTE ; Start 09/25/21 at 10:44; Stop 09/25/21 at 15:03; Status DC Fentanyl Citrate (Fentanyl 2ml Vial) 100 mcg STK-MED ONCE .ROUTE ; Start 09/25/21 at 13:26; Stop 09/25/21 at 15:04; Status DC Morphine Sulfate (Morphine Sulfate) 2 mg STK-MED ONCE .ROUTE ; Start 09/25/21 at 14:04; Stop 09/25/21 at 15:05; Status DC Hydromorphone HCl (Dilaudid) 2 mg STK-MED ONCE .ROUTE ; Start 09/25/21 at 14:54; Stop 09/25/21 at 15:06; Status DC Menthol/Methyl Salicylate (Bengay Greaseless Cream) 1 crispin PRN Q30MIN PRN TP MUSCLE PAIN Last administered on 09/28/21at 13:21; Start 09/25/21 at 18:45 Mupirocin (Bactroban) 1 crispin BID NS Last administered on 09/28/21at 09:30; Start 09/26/21 at 09:00 Dexamethasone Sodium Phosphate (Decadron) 10 mg 1X ONCE IVP Last administered on 09/26/21at 07:31; Start 09/26/21 at 07:30; Stop 09/26/21 at 07:31; Status DC Cefazolin Sodium 1 gm/Sodium Chloride 1,000 ml @ 1,000 mls/hr 1X ONCE IRR Last administered on 09/26/21at 11:52; Start 09/26/21 at 10:30; Stop 09/26/21 at 11:29; Status DC Cefazolin Sodium (Ancef) 1 gm STK-MED ONCE IVP ; Start 09/26/21 at 10:05; Stop 09/26/21 at 10:06; Status DC Lidocaine HCl (Lidocaine Pf 2% Vial) 5 ml STK-MED ONCE .ROUTE ; Start 09/26/21 at 10:18; Stop 09/26/21 at 10:18; Status DC Ondansetron HCl (Zofran) 4 mg STK-MED ONCE .ROUTE ; Start 09/26/21 at 10:18; Stop 09/26/21 at 10:18; Status DC Propofol (Diprivan) 200 mg STK-MED ONCE IV ; Start 09/26/21 at 10:18; Stop 09/26/21 at 10:19; Status DC Dexamethasone Sodium Phosphate (Decadron) 4 mg STK-MED ONCE .ROUTE ; Start 09/26/21 at 10:18; Stop 09/26/21 at 10:19; Status DC Sevoflurane (Ultane) 30 ml STK-MED ONCE IH ; Start 09/26/21 at 10:18; Stop 09/26/21 at 10:19; Status DC Fentanyl Citrate (Fentanyl 2ml Vial) 100 mcg STK-MED ONCE .ROUTE ; Start 09/26/21 at 10:19; Stop 09/26/21 at 10:19; Status DC Rocuronium [place] (Zemuron) 50 mg STK-MED ONCE .ROUTE ; Start 09/26/21 at 10:19; Stop 09/26/21 at 10:19; Status DC Insulin Human Lispro (HumaLOG VIAL for OP,RR ONLY) 0-10 units PRN Q1HR PRN SQ PER PROTOCOL Last administered on 09/26/21at 15:11; Start 09/26/21 at 10:30; Stop 09/26/21 at 18:00; Status DC Sugammadex Sodium (Bridion) 200 mg 1X ONCE IVP Last administered on 09/26/21at 10:30; Start 09/26/21 at 10:30; Stop 09/26/21 at 10:31; Status DC Gelatin (Gelfoam Size 100) 1 each STK-MED ONCE .ROUTE Last administered on 09/26/21at 11:52; Start 09/26/21 at 10:30; Stop 09/26/21 at 10:30; Status DC Bupivacaine HCl/ Epinephrine Bitart (Sensorcain-Epi 0.5% Kit) 30 ml STK-MED ONCE .ROUTE ; Start 09/26/21 at 10:30; Stop 09/26/21 at 10:30; Status DC Ketorolac Tromethamine (Toradol Im) 60 mg STK-MED ONCE .ROUTE ; Start 09/26/21 at 10:30; Stop 09/26/21 at 10:30; Status DC Thrombin 20,000 unit STK-MED ONCE TP Last administered on 09/26/21at 11:52; Start 09/26/21 at 10:30; Stop 09/26/21 at 10:31; Status DC Cefazolin Sodium/ Dextrose 50 ml @ As Directed STK-MED ONCE IV ; Start 09/26/21 at 10:32; Stop 09/26/21 at 10:32; Status DC Vancomycin HCl 1 gm/Sodium Chloride 250 ml @ 250 mls/hr PREOP PRN PRN IV PRIOR TO PROCEDURE; Start 09/26/21 at 10:45; Stop 09/26/21 at 14:00; Status DC Cefazolin Sodium/ Dextrose 50 ml @ 100 mls/hr 1X ONCE IV Last administered on 09/26/21at 11:00; Start 09/26/21 at 11:00; Stop 09/26/21 at 11:29; Status DC Dexamethasone Sodium Phosphate (Decadron) 4 mg STK-MED ONCE .ROUTE ; Start 09/26/21 at 11:04; Stop 09/26/21 at 11:04; Status DC Glycopyrrolate (Robinul) 1 mg STK-MED ONCE .ROUTE ; Start 09/26/21 at 11:04; Stop 09/26/21 at 11:04; Status DC Hydromorphone HCl (Dilaudid) 2 mg STK-MED ONCE .ROUTE ; Start 09/26/21 at 11:56; Stop 09/26/21 at 11:56; Status DC Fentanyl Citrate (Fentanyl 2ml Vial) 25 mcg PRN Q5MIN PRN IVP MILD PAIN 1-3; Start 09/26/21 at 14:30; Stop 09/26/21 at 18:15; Status DC Fentanyl Citrate (Fentanyl 2ml Vial) 50 mcg PRN Q5MIN PRN IVP MODERATE PAIN 4- 6; Start 09/26/21 at 14:30; Stop 09/26/21 at 18:15; Status DC Morphine Sulfate (Morphine Sulfate) 1 mg PRN Q10MIN PRN IVP SEVERE PAIN 7-10; Start 09/26/21 at 14:30; Stop 09/26/21 at 18:15; Status DC Ringer's Solution 1,000 ml @ 30 mls/hr Q24H IV Last administered on 09/26/21at 15:18; Start 09/26/21 at 14:30; Stop 09/26/21 at 21:00; Status DC Hydromorphone HCl (Dilaudid) 0.5 mg PRN Q10MIN PRN IVP SEVERE PAIN 7-10, 2nd CHOICE; Start 09/26/21 at 14:30; Stop 09/26/21 at 18:15; Status DC Prochlorperazine Edisylate (Compazine) 5 mg PACU PRN PRN IVP NAUSEA, MRX1; Start 09/26/21 at 14:30; Stop 09/26/21 at 21:00; Status DC Fentanyl Citrate (Fentanyl 2ml Vial) 100 mcg STK-MED ONCE .ROUTE ; Start 09/26/21 at 14:23; Stop 09/26/21 at 14:25; Status DC Fentanyl Citrate (Fentanyl 2ml Vial) 25 mcg PRN Q5MIN PRN IVP MILD PAIN 1-3; Start 09/26/21 at 14:30; Stop 09/27/21 at 14:29; Status UNV Fentanyl Citrate (Fentanyl 2ml Vial) 50 mcg PRN Q5MIN PRN IVP MODERATE PAIN 4- 6; Start 09/26/21 at 14:30; Stop 09/27/21 at 14:29; Status UNV Morphine Sulfate (Morphine Sulfate) 1 mg PRN Q10MIN PRN IVP SEVERE PAIN 7-10; Start 09/26/21 at 14:30; Stop 09/27/21 at 14:29; Status UNV Ringer's Solution 1,000 ml @ 30 mls/hr Q24H IV ; Start 09/26/21 at 14:30; Stop 09/27/21 at 02:29; Status UNV Hydromorphone HCl (Dilaudid) 0.5 mg PRN Q10MIN PRN IVP SEVERE PAIN 7-10, 2nd CHOICE; Start 09/26/21 at 14:30; Stop 09/27/21 at 14:29; Status UNV Prochlorperazine Edisylate (Compazine) 5 mg PACU PRN PRN IVP NAUSEA, MRX1; Start 09/26/21 at 14:30; Stop 09/27/21 at 14:29; Status UNV Dexamethasone Sodium Phosphate (Decadron) 4 mg Q6HRS IVP Last administered on 09/28/21at 05:06; Start 09/26/21 at 18:00; Stop 09/28/21 at 06:00; Status DC Sodium Chloride 1,000 ml @ 100 mls/hr Q10H IV Last administered on 09/28/21at 12:52; Start 09/26/21 at 17:30 Cefazolin Sodium (Ancef) 1 gm Q8HRS IVP ; Start 09/27/21 at 06:00; Stop 09/27/21 at 05:47; Status DC Vancomycin HCl 1 gm/Sodium Chloride 250 ml @ 166.667 mls/hr 1X ONCE IV Last administered on 09/27/21at 06:27; Start 09/27/21 at 06:00; Stop 09/27/21 at 07:29; Status DC Active Scripts Active Dok (Docusate Sodium) 100 Mg Capsule 100 Mg PO PRN BID PRN 30 Days Tylenol (Acetaminophen) 325 Mg Tablet 650 Mg PO PRN Q4HRS PRN 30 Days Valium (Diazepam) 5 Mg Tablet 5 Mg PO TID Atorvastatin Calcium 10 Mg Tablet 10 Mg PO QHS Reported Midodrine Hcl 2.5 Mg Tablet 2.5 Mg PO PRN 1X PRN Aspirin 81 Mg Tab.chew 81 Mg PO DAILY Baclofen 10 Mg Tablet 10 Mg PO BID Lyrica (Pregabalin) 100 Mg Capsule 100 Mg PO BID 30 Days Polyethylene Glycol 3350 2,500 Gm Powder 17 Gm PO DAILY 30 Days Oxycodone HCl 5 Mg Tablet 10 Mg PO PRN Q6HRS PRN Micatin (Miconazole Nitrate) 14 Gm Cream..g. 1 Crispin TP TID Tradjenta (Linagliptin) 5 Mg Tablet 5 Mg PO DAILY Lidocaine PATCH (Lidocaine) 1 Each Adh..patch 1 Each TP DAILY REMOVE AFTER 12 HOURS Levemir (Insulin Detemir) 100 Unit/1 Ml Vial 4 Unit SQ HS Hydroxyzine Hcl 25 Mg Tablet 25 Mg PO PRN Q6HRS PRN Fluticasone Propionate Nasal [place] (Fluticasone Propionate) 16 Gm [place].susp 2 [place] NS DAILY Diclofenac Sodium 100 Gm Gel..gram. 100 Gm TP PRN TID PRN Losartan Potassium 100 Mg Tablet 25 Tab PO DAILY08 Vitals/I & O Vital Sign - Last 24 Hours 09/27/21 09/27/21 09/27/21 09/27/21 17:00 17:49 18:00 19:00 Pulse 100 98 101 Resp 14 20 18 25 B/P (MAP) 146/70 (95) 139/66 (90) 139/71 (93) Pulse Ox 98 97 98 98 O2 Delivery Nasal Cannula Nasal Cannula Nasal Cannula O2 Flow Rate 1.0 1.0 1.0 1.0 09/27/21 09/27/21 09/27/21 09/27/21 20:00 20:00 21:00 22:00 Pulse 96 94 88 Resp 17 19 18 B/P (MAP) 140/63 (88) 133/63 (86) 111/59 (76) Pulse Ox 97 97 97 O2 Delivery Nasal Cannula Nasal Cannula Nasal Cannula Nasal Cannula O2 Flow Rate 1.0 1.0 1.0 1.0 09/27/21 09/28/21 09/28/21 09/28/21 23:00 00:01 01:00 02:00 Temp 98.2 98.2 Pulse 74 72 69 64 Resp 15 12 14 13 B/P (MAP) 110/58 (75) 118/57 (77) 110/54 (72) 114/57 (76) Pulse Ox 97 98 97 98 O2 Delivery Nasal Cannula Nasal Cannula Nasal Cannula Nasal Cannula O2 Flow Rate 1.0 1.0 1.0 1.0 09/28/21 09/28/21 09/28/21 09/28/21 03:00 04:00 05:00 06:00 Temp 98.4 98.4 Pulse 62 82 84 77 Resp 19 19 19 16 B/P (MAP) 120/62 (81) 151/87 (108) 162/84 (110) 142/76 (98) Pulse Ox 98 96 97 97 O2 Delivery Nasal Cannula Nasal Cannula Nasal Cannula Nasal Cannula O2 Flow Rate 1.0 1.0 1.0 1.0 09/28/21 09/28/21 09/28/21 09/28/21 07:00 08:00 08:00 08:39 Temp 98.2 98.2 Pulse 76 74 76 Resp 17 18 B/P (MAP) 141/61 (87) 131/59 (83) 141/61 Pulse Ox 98 97 O2 Delivery Nasal Cannula Nasal Cannula Nasal Cannula O2 Flow Rate 1.0 1.0 1.0 09/28/21 09/28/21 09/28/21 09/28/21 09:00 10:00 11:00 12:00 Temp 98.9 98.9 Pulse 96 92 88 74 Resp 19 16 16 18 B/P (MAP) 153/71 (98) 160/66 (97) 134/61 (85) 140/57 (84) Pulse Ox 95 95 94 97 O2 Delivery Nasal Cannula Room Air Room Air Room Air O2 Flow Rate 1.0 09/28/21 09/28/21 09/28/21 09/28/21 13:00 14:00 15:00 16:00 Temp 98.2 98.2 Pulse 89 92 85 68 Resp 16 16 19 18 B/P (MAP) 138/65 (89) 128/53 (78) 135/64 (87) 124/54 (77) Pulse Ox 97 99 99 97 O2 Delivery Room Air Nasal Cannula Nasal Cannula Nasal Cannula O2 Flow Rate 1.0 1.0 1.0 Intake and Output 09/27/21 09/27/21 09/28/21 15:00 23:00 07:00 Intake Total 960 ml 240 ml 600 ml Output Total 830 ml 590 ml 1540 ml Balance 130 ml -350 ml -940 ml Justifications for Admission Other Justification uncontrolled diabetes KELLEN BRUNO MD Sep 28, 2021 16:30
[2021-09-28] MEDS: ATORVASTATIN CALCIUM 10 MG TABLET. PO SCH (21:26)
[2021-09-28] MEDS: LIDOCAINE (700MG/PATCH) PATCH. TP SCH (21:28)
[2021-09-28] MEDS: INSULIN GLARGINE SYRINGE. SQ SCH (21:29)
[2021-09-29] VITALS (24 sets, daily range): BP systolic 97–158; BP diastolic 54–87
[2021-09-29] MEDS: hydrOXYzine 25 MG TABLET PO PRN ×3 (00:16→21:00)
[2021-09-29 03:47] LABS: BASO % 0 % (0-3); EOS # 0.1 x10^3/uL (0.0-0.7); EOS % 1 % (0-3); HEMATOCRIT 24.4 % (39.0-53.0); HEMOGLOBIN 8.2 g/dL (13.0-17.5); LYMPH # 3.2 x10^3/uL (1.0-4.8); LYMPH % 26 % (24-48); MEAN CORPUSCULAR HEMOGLOBIN 28 pg (25-35); MEAN CORPUSCULAR HGB CONC 34 g/dL (31-37); MEAN CORPUSCULAR VOLUME 85 fL (79-100); MONO # 1.4 x10^3/uL (0.0-1.1); MONO % 11 % (0-9); NEUT # 7.8 x10^3/uL (1.8-7.7); NEUT % 62 % (31-73); PLATELET COUNT 145 x10^3/uL (140-400); RED BLOOD COUNT 2.87 x10^6/uL (4.30-5.70); RED CELL DISTRIBUTION WIDTH 13.5 % (11.5-14.5); WHITE BLOOD COUNT 12.5 x10^3/uL (4.0-11.0)
[2021-09-29 04:02] LABS: CALCIUM 7.5 mg/dL (8.5-10.1); CREATININE 0.7 mg/dL (0.7-1.3); GFR 138.7; POTASSIUM 3.9 mmol/L (3.5-5.1)
[2021-09-29] MEDS ORDERED: GADOTERATE 7.5 MMOL/15ML VIAL. IVP ONE (08:15)
[2021-09-29] MEDS: LIDOCAINE (700MG/PATCH) PATCH. TP SCH ×2 (08:39→20:33)
[2021-09-29] MEDS: diazePAM 5 MG TABLET PO SCH ×3 (08:39→20:32)
[2021-09-29] MEDS: DOCUSATE SODIUM 100 MG CAPSULE. PO PRN (08:39)
[2021-09-29] MEDS: POLYETHYLENE GLYCOL 3350 17 GM PACKET. PO SCH (08:39)
[2021-09-29] MEDS: PREGABALIN 50 MG CAPSULE PO SCH ×2 (08:40→20:33)
[2021-09-29] MEDS: LOSARTAN POTASSIUM 25 MG TABLET. PO SCH (08:40)
[2021-09-29] MEDS: LINAGLIPTIN 5 MG TABLET PO SCH (08:40)
[2021-09-29] MEDS: BACLOFEN 10 MG TABLET. PO SCH ×2 (08:40→20:32)
[2021-09-29] MEDS: FLUTICASONE 50MCG/NASAL SPRAY 16GM BOTTLE. NS SCH (08:41)
[2021-09-29] MEDS: MICONAZOLE NITRATE 2% TOPICAL CREAM 30GM TUBE. TP SCH ×3 (08:42→20:33)
[2021-09-29] MEDS: METHYL SALICYLATE/MENTHOL TOPICAL CREAM 57GM TUBE. TP PRN (08:42)
[2021-09-29] MEDS: MUPIROCIN 2 % OINTMENT 22GM TUBE. NS SCH ×2 (09:00→20:33)
--- NOTE | 2021-09-29 09:36 | PDOC ---
PROGRESS NOTES Date of Service DATE: 09/29/21 TIME: 09:32 Subjective Subjective No new complaints. Objective Objective Vital Signs Date Time Temp Pulse Resp B/P (MAP) Pulse Ox O2 Delivery O2 Flow Rate FiO2 09/29/21 08:40 81 121/62 09/29/21 06:00 16 98 Nasal Cannula 1.0 09/28/21 22:00 98.2 98.2 Intake and Output 09/29/21 07:00 Intake Total 2608 ml Output Total 3070 ml Balance -462 ml Intake Oral 1350 ml IV Total 1258 ml Output Urine Total 3050 ml Drainage Total 20 ml Physical Exam Physical Exam No change with his neurological status. He is alert and comfortable. Plan Plan of Care To consider steroids to ease edema if agreeable to . Comment Review of Relevant I have reviewed the following items michelle (where applicable) has been applied. Labs Laboratory Tests Test 09/27/21 13:25 09/27/21 20:11 09/28/21 04:35 09/28/21 05:35 Hemoglobin 8.6 g/dL (13.0-17.5) 8.6 g/dL (13.0-17.5) Hematocrit 26.3 % (39.0-53.0) 26.5 % (39.0-53.0) Mean Corpuscular Hemoglobin Concent 33 g/dL (31-37) 32 g/dL (31-37) Glucose (Fingerstick) 321 mg/dL (70-99) Sodium Level 136 mmol/L (136-145) Potassium Level 4.6 mmol/L (3.5-5.1) Chloride Level 103 mmol/L (98-107) Carbon Dioxide Level 30 mmol/L (21-32) Anion Gap 3 (6-14) Blood Urea Nitrogen 24 mg/dL (8-26) Creatinine 0.8 mg/dL (0.7-1.3) Estimated GFR (Cockcroft-Gault) 118.9 Glucose Level 277 mg/dL (70-99) Calcium Level 7.5 mg/dL (8.5-10.1) White Blood Count 11.1 x10^3/uL (4.0-11.0) Red Blood Count 3.09 x10^6/uL (4.30-5.70) Mean Corpuscular Volume 86 fL (79-100) Mean Corpuscular Hemoglobin 28 pg (25-35) Red Cell Distribution Width 13.5 % (11.5-14.5) Platelet Count 124 x10^3/uL (140-400) Neutrophils (%) (Auto) 84 % (31-73) Lymphocytes (%) (Auto) 10 % (24-48) Monocytes (%) (Auto) 7 % (0-9) Eosinophils (%) (Auto) 0 % (0-3) Basophils (%) (Auto) 0 % (0-3) Neutrophils # (Auto) 9.2 x10^3/uL (1.8-7.7) Lymphocytes # (Auto) 1.1 x10^3/uL (1.0-4.8) Monocytes # (Auto) 0.7 x10^3/uL (0.0-1.1) Eosinophils # (Auto) 0.0 x10^3/uL (0.0-0.7) Basophils # (Auto) 0.0 x10^3/uL (0.0-0.2) Test 09/28/21 08:31 09/29/21 03:25 Glucose (Fingerstick) 266 mg/dL (70-99) White Blood Count 12.5 x10^3/uL (4.0-11.0) Red Blood Count 2.87 x10^6/uL (4.30-5.70) Hemoglobin 8.2 g/dL (13.0-17.5) Hematocrit 24.4 % (39.0-53.0) Mean Corpuscular Volume 85 fL (79-100) Mean Corpuscular Hemoglobin 28 pg (25-35) Mean Corpuscular Hemoglobin Concent 34 g/dL (31-37) Red Cell Distribution Width 13.5 % (11.5-14.5) Platelet Count 145 x10^3/uL (140-400) Neutrophils (%) (Auto) 62 % (31-73) Lymphocytes (%) (Auto) 26 % (24-48) Monocytes (%) (Auto) 11 % (0-9) Eosinophils (%) (Auto) 1 % (0-3) Basophils (%) (Auto) 0 % (0-3) Neutrophils # (Auto) 7.8 x10^3/uL (1.8-7.7) Lymphocytes # (Auto) 3.2 x10^3/uL (1.0-4.8) Monocytes # (Auto) 1.4 x10^3/uL (0.0-1.1) Eosinophils # (Auto) 0.1 x10^3/uL (0.0-0.7) Basophils # (Auto) 0.0 x10^3/uL (0.0-0.2) Sodium Level 139 mmol/L (136-145) Potassium Level 3.9 mmol/L (3.5-5.1) Chloride Level 103 mmol/L (98-107) Carbon Dioxide Level 29 mmol/L (21-32) Anion Gap 7 (6-14) Blood Urea Nitrogen 22 mg/dL (8-26) Creatinine 0.7 mg/dL (0.7-1.3) Estimated GFR (Cockcroft-Gault) 138.7 Glucose Level 178 mg/dL (70-99) Calcium Level 7.5 mg/dL (8.5-10.1) Laboratory Tests Test 09/29/21 03:25 White Blood Count 12.5 x10^3/uL (4.0-11.0) Red Blood Count 2.87 x10^6/uL (4.30-5.70) Hemoglobin 8.2 g/dL (13.0-17.5) Hematocrit 24.4 % (39.0-53.0) Mean Corpuscular Volume 85 fL (79-100) Mean Corpuscular Hemoglobin 28 pg (25-35) Mean Corpuscular Hemoglobin Concent 34 g/dL (31-37) Red Cell Distribution Width 13.5 % (11.5-14.5) Platelet Count 145 x10^3/uL (140-400) Neutrophils (%) (Auto) 62 % (31-73) Lymphocytes (%) (Auto) 26 % (24-48) Monocytes (%) (Auto) 11 % (0-9) Eosinophils (%) (Auto) 1 % (0-3) Basophils (%) (Auto) 0 % (0-3) Neutrophils # (Auto) 7.8 x10^3/uL (1.8-7.7) Lymphocytes # (Auto) 3.2 x10^3/uL (1.0-4.8) Monocytes # (Auto) 1.4 x10^3/uL (0.0-1.1) Eosinophils # (Auto) 0.1 x10^3/uL (0.0-0.7) Basophils # (Auto) 0.0 x10^3/uL (0.0-0.2) Sodium Level 139 mmol/L (136-145) Potassium Level 3.9 mmol/L (3.5-5.1) Chloride Level 103 mmol/L (98-107) Carbon Dioxide Level 29 mmol/L (21-32) Anion Gap 7 (6-14) Blood Urea Nitrogen 22 mg/dL (8-26) Creatinine 0.7 mg/dL (0.7-1.3) Estimated GFR (Cockcroft-Gault) 138.7 Glucose Level 178 mg/dL (70-99) Calcium Level 7.5 mg/dL (8.5-10.1) Medications Current Medications Fentanyl Citrate (Fentanyl 2ml Vial) 25 mcg PRN Q5MIN PRN IVP MILD PAIN 1-3; Start 09/25/21 at 06:00; Stop 09/25/21 at 20:00; Status DC Fentanyl Citrate (Fentanyl 2ml Vial) 50 mcg PRN Q5MIN PRN IVP MODERATE PAIN 4-6 Last administered on 09/25/21at 13:48; Start 09/25/21 at 06:00; Stop 09/25/21 at 20:00; Status DC Morphine Sulfate (Morphine Sulfate) 1 mg PRN Q10MIN PRN IVP SEVERE PAIN 7-10 Last administered on 09/25/21at 14:21; Start 09/25/21 at 06:00; Stop 09/25/21 at 2 0:00; Status DC Ringer's Solution 1,000 ml @ 30 mls/hr Q24H IV Last administered on 09/25/21at 12:54; Start 09/25/21 at 06:00; Stop 09/25/21 at 17:59; Status DC Hydromorphone HCl (Dilaudid) 0.5 mg PRN Q10MIN PRN IVP SEVERE PAIN 7-10, 2nd CHOICE Last administered on 09/25/21at 16:53; Start 09/25/21 at 06:00; Stop 09/25/21 at 20:00; Status DC Prochlorperazine Edisylate (Compazine) 5 mg PACU PRN PRN IVP NAUSEA, MRX1; Start 09/25/21 at 06:00; Stop 09/25/21 at 20:00; Status DC Cefazolin Sodium 1 gm/Sodium Chloride 1,000 ml @ 1,000 mls/hr 1X ONCE IRR Last administered on 09/25/21at 10:14; Start 09/25/21 at 06:00; Stop 09/25/21 at 06:59; Status DC Cefazolin Sodium/ Dextrose 50 ml @ 100 mls/hr 1X PREOP PRN IV PRIOR TO PROCEDURE Last administered on 09/25/21at 09:30; Start 09/25/21 at 06:00; Stop 09/25/21 at 13:39; Status DC Insulin Human Lispro (HumaLOG VIAL for OP,RR ONLY) 0-10 units PRN Q1HR PRN SQ PER PROTOCOL Last administered on 09/25/21at 17:01; Start 09/25/21 at 07:00; Stop 09/25/21 at 18:00; Status DC Bupivacaine HCl/ Epinephrine Bitart (Sensorcain-Epi 0.5% Kit) 30 ml STK-MED ONCE INJ Last administered on 09/25/21at 10:14; Start 09/25/21 at 10:14; Stop 09/25/21 at 10:30; Status DC Ketorolac Tromethamine (Toradol Im) 60 mg STK-MED ONCE INJ Last administered on 09/25/21at 10:14; Start 09/25/21 at 10:14; Stop 09/25/21 at 10:30; Status DC Thrombin 20,000 unit STK-MED ONCE TP Last administered on 09/25/21at 10:14; Start 09/25/21 at 10:14; Stop 09/25/21 at 10:30; Status DC Gelatin (Gelfoam Size 100) 1 each STK-MED ONCE TP Last administered on 09/25/21at 10:14; Start 09/25/21 at 10:14; Stop 09/25/21 at 10:30; Status DC Acetaminophen (Tylenol) 650 mg PRN Q4HRS PRN PO TEMP OVER 100.4F OR MILD PAIN; Start 09/25/21 at 12:30 Aspirin (Aspirin Chewable) 81 mg DAILY PO Last administered on 09/26/21 08:30; Start 09/26/21 at 09:00; Stop 09/28/21 at 17:19; Status DC Atorvastatin Calcium (Lipitor) 10 mg QHS PO Last administered on 09/28/21 21:26; Start 09/25/21 at 21:00 Baclofen (Lioresal) 10 mg BID PO Last administered on 09/29/21 08:40; Start 09/25/21 at 21:00 Diazepam (Valium) 5 mg TID PO Last administered on 09/29/21 08:39; Start 09/25/21 at 14:00 Docusate Sodium (Colace) 100 mg PRN BID PRN PO HARD STOOLS Last administered on 09/29/21 08:39; Start 09/25/21 at 12:30 Fluticasone Propionate (Flonase) 2 spray DAILY NS Last administered on 09/29/21 08:41; Start 09/26/21 at 09:00 Hydroxyzine HCl (Atarax) 25 mg PRN Q6HRS PRN PO itching Last administered on 09/29/21 06:22; Start 09/25/21 at 12:30 Lidocaine (Lidoderm) 1 patch QHS TP Last administered on 09/28/21 21:28; Start 09/25/21 at 20:00 Linagliptin (Tradjenta) 5 mg DAILY PO Last administered on 09/29/21 08:40; Start 09/25/21 at 13:00 Miconazole Nitrate (Monistat-Derm) 1 crispin TID TP Last administered on 09/29/21 08:42; Start 09/25/21 at 21:00 Midodrine (Proamatine) 2.5 mg PRN 1X PRN PO hypotension Last administered on 09/27/21 08:56; Start 09/25/21 at 12:30 Oxycodone HCl (Roxicodone) 10 mg PRN Q6HRS PRN PO MODERATE-SEVERE PAIN Last administered on 09/28/21 21:26; Start 09/25/21 at 12:30 Diclofenac Sodium (Voltaren) 1 crispin PRN TID PRN TP PAIN CONTROL; Start 09/25/21 at 13:15; Stop 09/25/21 at 18:37; Status DC Insulin Glargine (Lantus Syringe) 4 unit QHS SQ Last administered on 09/28/21at 21:29; Start 09/25/21 at 21:00 Losartan Potassium (Cozaar) 25 mg DAILY08 PO Last administered on 09/29/21at 08:40; Start 09/26/21 at 08:00 Polyethylene Glycol (miraLAX PACKET) 17 gm DAILY PO Last administered on 09/29/21at 08:39; Start 09/25/21 at 14:00 Pregabalin (Lyrica) 100 mg BID PO Last administered on 09/29/21at 08:40; Start 09/25/21 at 21:00 Acetaminophen (Tylenol) 650 mg PRN Q6HRS PRN PO MILD PAIN / TEMP > 100.3'F; Start 09/25/21 at 12:30; Status Cancel Al Hydroxide/Mg Hydroxide (Mylanta Plus Xs) 30 ml PRN Q3HRS PRN PO HEARTBURN / GAS; Start 09/25/21 at 12:30 Calcium Carbonate/ Glycine (Tums) 500 mg PRN Q3HRS PRN PO INDIGESTION; Start 09/25/21 at 12:30 Diphenhydramine HCl (Benadryl) 25 mg PRN Q6HRS PRN PO ITCHING; Start 09/25/21 at 12:30 Naloxone HCl (Narcan) 0.1 mg PRN Q2MIN PRN IV SEE COMMENTS; Start 09/25/21 at 12:30 Sodium Chloride (Normal Saline Flush) 3 ml QSHIFT PRN IV AFTER MEDS AND BLOOD DRAWS; Start 09/25/21 at 12:30 Potassium Chloride/Sodium Chloride 1,000 ml @ 75 mls/hr [id number] IV Last administered on 09/26/21at 07:00; Start 09/25/21 at 12:30; Stop 09/26/21 at 17:33; Status DC Magnesium Hydroxide (Milk Of Magnesia) 2,400 mg PRN Q12HR PRN PO CONSTIPATION; Start 09/25/21 at 12:30 Cefazolin Sodium (Ancef) 1 gm Q8H IVP Last administered on 09/26/21at 04:14; Start 09/25/21 at 18:00; Stop 09/26/21 at 10:01; Status DC Fentanyl Citrate (Fentanyl 2ml Vial) 50 mcg PRN Q2HR PRN IVP MODERATE TO SEVERE PAIN Last administered on 09/27/21at 23:48; Start 09/25/21 at 12:30 Dextrose (Dextrose 50%-Water Syringe) 12.5 gm PRN Q15MIN PRN IV SEE COMMENTS; Start 09/25/21 at 12:30 Dextrose (Iv Dextrose 5%) 250 ml PRN Q15MIN PRN IV SEE COMMENTS; Start 09/25/21 at 12:30 Gelatin (Gelfoam Size 100) 1 each STK-MED ONCE .ROUTE ; Start 09/25/21 at 06:37; Stop 09/25/21 at 14:55; Status DC Bupivacaine HCl/ Epinephrine Bitart (Sensorcain-Epi 0.5% Kit) 30 ml STK-MED ONCE .ROUTE ; Start 09/25/21 at 06:37; Stop 09/25/21 at 14:55; Status DC Ketorolac Tromethamine (Toradol Im) 60 mg STK-MED ONCE .ROUTE ; Start 09/25/21 at 06:37; Stop 09/25/21 at 14:55; Status DC Thrombin 20,000 unit STK-MED ONCE TP ; Start 09/25/21 at 06:38; Stop 09/25/21 at 14:55; Status DC Propofol (Diprivan) 200 mg STK-MED ONCE IV ; Start 09/25/21 at 05:54; Stop 09/25/21 at 14:57; Status DC Lidocaine HCl (Lidocaine Pf 2% Vial) 5 ml STK-MED ONCE .ROUTE ; Start 09/25/21 at 05:54; Stop 09/25/21 at 14:57; Status DC Ondansetron HCl (Zofran) 4 mg STK-MED ONCE .ROUTE ; Start 09/25/21 at 05:54; Stop 09/25/21 at 14:57; Status DC Phenylephrine HCl (Ramone-Synephrine Inj) 10 mg STK-MED ONCE .ROUTE ; Start 09/25/21 at 05:54; Stop 09/25/21 at 14:57; Status DC Propofol 50 ml @ As Directed STK-MED ONCE IV ; Start 09/25/21 at 05:54; Stop 09/25/21 at 14:57; Status DC Dexamethasone Sodium Phosphate (Decadron) 4 mg STK-MED ONCE .ROUTE ; Start 09/25/21 at 05:54; Stop 09/25/21 at 14:57; Status DC Fentanyl Citrate (Fentanyl 2ml Vial) 100 mcg STK-MED ONCE .ROUTE ; Start 09/25/21 at 05:54; Stop 09/25/21 at 14:57; Status DC Succinylcholine Chloride (Anectine) 200 mg STK-MED ONCE .ROUTE ; Start 09/25/21 at 05:54; Stop 09/25/21 at 14:57; Status DC Remifentanil HCl (Ultiva) 1 mg STK-MED ONCE IV ; Start 09/25/21 at 05:54; Stop 09/25/21 at 14:57; Status DC Glycopyrrolate (Robinul) 1 mg STK-MED ONCE .ROUTE ; Start 09/25/21 at 07:11; Stop 09/25/21 at 15:01; Status DC Propofol 50 ml @ As Directed STK-MED ONCE IV ; Start 09/25/21 at 08:07; Stop 09/25/21 at 15:02; Status DC Ketamine HCl (Ketamine) 50 mg STK-MED ONCE .ROUTE ; Start 09/25/21 at 08:15; Stop 09/25/21 at 15:02; Status DC Hydromorphone HCl (Dilaudid) 2 mg STK-MED ONCE .ROUTE ; Start 09/25/21 at 10:44; Stop 09/25/21 at 15:03; Status DC Fentanyl Citrate (Fentanyl 2ml Vial) 100 mcg STK-MED ONCE .ROUTE ; Start 09/25/21 at 13:26; Stop 09/25/21 at 15:04; Status DC Morphine Sulfate (Morphine Sulfate) 2 mg STK-MED ONCE .ROUTE ; Start 09/25/21 at 14:04; Stop 09/25/21 at 15:05; Status DC Hydromorphone HCl (Dilaudid) 2 mg STK-MED ONCE .ROUTE ; Start 09/25/21 at 14:54; Stop 09/25/21 at 15:06; Status DC Menthol/Methyl Salicylate ([place] Greaseless Cream) 1 crispin PRN Q30MIN PRN TP MUSCLE PAIN Last administered on 09/29/21at 08:42; Start 09/25/21 at 18:45 Mupirocin (Bactroban) 1 crispin BID NS Last administered on 09/28/21at 21:00; Start 09/26/21 at 09:00 Dexamethasone Sodium Phosphate (Decadron) 10 mg 1X ONCE IVP Last administered on 09/26/21at 07:31; Start 09/26/21 at 07:30; Stop 09/26/21 at 07:31; Status DC Cefazolin Sodium 1 gm/Sodium Chloride 1,000 ml @ 1,000 mls/hr 1X ONCE IRR Last administered on 09/26/21at 11:52; Start 09/26/21 at 10:30; Stop 09/26/21 at 11:29; Status DC Cefazolin Sodium (Ancef) 1 gm STK-MED ONCE IVP ; Start 09/26/21 at 10:05; Stop 09/26/21 at 10:06; Status DC Lidocaine HCl (Lidocaine Pf 2% Vial) 5 ml STK-MED ONCE .ROUTE ; Start 09/26/21 at 10:18; Stop 09/26/21 at 10:18; Status DC Ondansetron HCl (Zofran) 4 mg STK-MED ONCE .ROUTE ; Start 09/26/21 at 10:18; Stop 09/26/21 at 10:18; Status DC Propofol (Diprivan) 200 mg STK-MED ONCE IV ; Start 09/26/21 at 10:18; Stop 09/26/21 at 10:19; Status DC Dexamethasone Sodium Phosphate (Decadron) 4 mg STK-MED ONCE .ROUTE ; Start 09/26/21 at 10:18; Stop 09/26/21 at 10:19; Status DC Sevoflurane (Ultane) 30 ml STK-MED ONCE IH ; Start 09/26/21 at 10:18; Stop 09/26/21 at 10:19; Status DC Fentanyl Citrate (Fentanyl 2ml Vial) 100 mcg STK-MED ONCE .ROUTE ; Start 09/26/21 at 10:19; Stop 09/26/21 at 10:19; Status DC Rocuronium [place] (Zemuron) 50 mg STK-MED ONCE .ROUTE ; Start 09/26/21 at 10:19; Stop 09/26/21 at 10:19; Status DC Insulin Human Lispro (HumaLOG VIAL for OP,RR ONLY) 0-10 units PRN Q1HR PRN SQ PER PROTOCOL Last administered on 09/26/21at 15:11; Start 09/26/21 at 10:30; Stop 09/26/21 at 18:00; Status DC Sugammadex Sodium (Bridion) 200 mg 1X ONCE IVP Last administered on 09/26/21at 10:30; Start 09/26/21 at 10:30; Stop 09/26/21 at 10:31; Status DC Gelatin (Gelfoam Size 100) 1 each STK-MED ONCE .ROUTE Last administered on 09/26/21at 11:52; Start 09/26/21 at 10:30; Stop 09/26/21 at 10:30; Status DC Bupivacaine HCl/ Epinephrine Bitart (Sensorcain-Epi 0.5% Kit) 30 ml STK-MED ONCE .ROUTE ; Start 09/26/21 at 10:30; Stop 09/26/21 at 10:30; Status DC Ketorolac Tromethamine (Toradol Im) 60 mg STK-MED ONCE .ROUTE ; Start 09/26/21 at 10:30; Stop 09/26/21 at 10:30; Status DC Thrombin 20,000 unit STK-MED ONCE TP Last administered on 09/26/21at 11:52; Start 09/26/21 at 10:30; Stop 09/26/21 at 10:31; Status DC Cefazolin Sodium/ Dextrose 50 ml @ As Directed STK-MED ONCE IV ; Start 09/26/21 at 10:32; Stop 09/26/21 at 10:32; Status DC Vancomycin HCl 1 gm/Sodium Chloride 250 ml @ 250 mls/hr PREOP PRN PRN IV PRIOR TO PROCEDURE; Start 09/26/21 at 10:45; Stop 09/26/21 at 14:00; Status DC Cefazolin Sodium/ Dextrose 50 ml @ 100 mls/hr 1X ONCE IV Last administered on 09/26/21at 11:00; Start 09/26/21 at 11:00; Stop 09/26/21 at 11:29; Status DC Dexamethasone Sodium Phosphate (Decadron) 4 mg STK-MED ONCE .ROUTE ; Start 09/26/21 at 11:04; Stop 09/26/21 at 11:04; Status DC Glycopyrrolate (Robinul) 1 mg STK-MED ONCE .ROUTE ; Start 09/26/21 at 11:04; Stop 09/26/21 at 11:04; Status DC Hydromorphone HCl (Dilaudid) 2 mg STK-MED ONCE .ROUTE ; Start 09/26/21 at 11:56; Stop 09/26/21 at 11:56; Status DC Fentanyl Citrate (Fentanyl 2ml Vial) 25 mcg PRN Q5MIN PRN IVP MILD PAIN 1-3; Start 09/26/21 at 14:30; Stop 09/26/21 at 18:15; Status DC Fentanyl Citrate (Fentanyl 2ml Vial) 50 mcg PRN Q5MIN PRN IVP MODERATE PAIN 4- 6; Start 09/26/21 at 14:30; Stop 09/26/21 at 18:15; Status DC Morphine Sulfate (Morphine Sulfate) 1 mg PRN Q10MIN PRN IVP SEVERE PAIN 7-10; Start 09/26/21 at 14:30; Stop 09/26/21 at 18:15; Status DC Ringer's Solution 1,000 ml @ 30 mls/hr Q24H IV Last administered on 09/26/21at 15:18; Start 09/26/21 at 14:30; Stop 09/26/21 at 21:00; Status DC Hydromorphone HCl (Dilaudid) 0.5 mg PRN Q10MIN PRN IVP SEVERE PAIN 7-10, 2nd CHOICE; Start 09/26/21 at 14:30; Stop 09/26/21 at 18:15; Status DC Prochlorperazine Edisylate (Compazine) 5 mg PACU PRN PRN IVP NAUSEA, MRX1; Start 09/26/21 at 14:30; Stop 09/26/21 at 21:00; Status DC Fentanyl Citrate (Fentanyl 2ml Vial) 100 mcg STK-MED ONCE .ROUTE ; Start 09/26/21 at 14:23; Stop 09/26/21 at 14:25; Status DC Fentanyl Citrate (Fentanyl 2ml Vial) 25 mcg PRN Q5MIN PRN IVP MILD PAIN 1-3; Start 09/26/21 at 14:30; Stop 09/27/21 at 14:29; Status UNV Fentanyl Citrate (Fentanyl 2ml Vial) 50 mcg PRN Q5MIN PRN IVP MODERATE PAIN 4- 6; Start 09/26/21 at 14:30; Stop 09/27/21 at 14:29; Status UNV Morphine Sulfate (Morphine Sulfate) 1 mg PRN Q10MIN PRN IVP SEVERE PAIN 7-10; Start 09/26/21 at 14:30; Stop 09/27/21 at 14:29; Status UNV Ringer's Solution 1,000 ml @ 30 mls/hr Q24H IV ; Start 09/26/21 at 14:30; Stop 09/27/21 at 02:29; Status UNV Hydromorphone HCl (Dilaudid) 0.5 mg PRN Q10MIN PRN IVP SEVERE PAIN 7-10, 2nd CHOICE; Start 09/26/21 at 14:30; Stop 09/27/21 at 14:29; Status UNV Prochlorperazine Edisylate (Compazine) 5 mg PACU PRN PRN IVP NAUSEA, MRX1; Start 09/26/21 at 14:30; Stop 09/27/21 at 14:29; Status UNV Dexamethasone Sodium Phosphate (Decadron) 4 mg Q6HRS IVP Last administered on 09/28/21at 05:06; Start 09/26/21 at 18:00; Stop 09/28/21 at 06:00; Status DC Sodium Chloride 1,000 ml @ 100 mls/hr Q10H IV Last administered on 09/28/21at 22:21; Start 09/26/21 at 17:30 Cefazolin Sodium (Ancef) 1 gm Q8HRS IVP ; Start 09/27/21 at 06:00; Stop 09/27/21 at 05:47; Status DC Vancomycin HCl 1 gm/Sodium Chloride 250 ml @ 166.667 mls/hr 1X ONCE IV Last administered on 09/27/21at 06:27; Start 09/27/21 at 06:00; Stop 09/27/21 at 07:29; Status DC Gadoterate Meglumine (Clariscan) 19 ml 1X ONCE IVP ; Start 09/29/21 at 08:15; Stop 09/29/21 at 08:17; Status DC Active Scripts Active Dok (Docusate Sodium) 100 Mg Capsule 100 Mg PO PRN BID PRN 30 Days Tylenol (Acetaminophen) 325 Mg Tablet 650 Mg PO PRN Q4HRS PRN 30 Days Valium (Diazepam) 5 Mg Tablet 5 Mg PO TID Atorvastatin Calcium 10 Mg Tablet 10 Mg PO QHS Reported Midodrine Hcl 2.5 Mg Tablet 2.5 Mg PO PRN 1X PRN Aspirin 81 Mg Tab.chew 81 Mg PO DAILY Baclofen 10 Mg Tablet 10 Mg PO BID Lyrica (Pregabalin) 100 Mg Capsule 100 Mg PO BID 30 Days Polyethylene Glycol 3350 2,500 Gm Powder 17 Gm PO DAILY 30 Days Oxycodone HCl 5 Mg Tablet 10 Mg PO PRN Q6HRS PRN Micatin (Miconazole Nitrate) 14 Gm Cream..g. 1 [place] TP TID Tradjenta (Linagliptin) 5 Mg Tablet 5 Mg PO DAILY Lidocaine PATCH (Lidocaine) 1 Each Adh..patch 1 Each TP DAILY REMOVE AFTER 12 HOURS Levemir (Insulin Detemir) 100 Unit/1 Ml Vial 4 Unit SQ HS Hydroxyzine Hcl 25 Mg Tablet 25 Mg PO PRN Q6HRS PRN Fluticasone Propionate Nasal [place] (Fluticasone Propionate) 16 Gm [place].susp 2 [place] NS DAILY Diclofenac Sodium 100 Gm Gel..gram. 100 Gm TP PRN TID PRN Losartan Potassium 100 Mg Tablet 25 Tab PO DAILY08 Vitals/I & O Vital Sign - Last 24 Hours 09/28/21 09/28/21 09/28/21 09/28/21 10:00 11:00 12:00 13:00 Temp 98.9 98.9 Pulse 92 88 74 89 Resp 16 16 18 16 B/P (MAP) 160/66 (97) 134/61 (85) 140/57 (84) 138/65 (89) Pulse Ox 95 94 97 97 O2 Delivery Room Air Room Air Room Air Room Air 09/28/21 09/28/21 09/28/21 09/28/21 14:00 15:00 16:00 17:00 Temp 98.2 98.2 Pulse 92 85 68 85 Resp 16 19 18 14 B/P (MAP) 128/53 (78) 135/64 (87) 124/54 (77) 116/67 (83) Pulse Ox 99 99 97 99 O2 Delivery Nasal Cannula Nasal Cannula Nasal Cannula Nasal Cannula O2 Flow Rate 1.0 1.0 1.0 1.0 09/28/21 09/28/21 09/28/21 09/28/21 18:00 19:00 20:00 20:00 Pulse 78 80 84 Resp 17 17 17 B/P (MAP) 146/64 (91) 130/60 (83) 130/64 (86) Pulse Ox 98 96 95 O2 Delivery Nasal Cannula Nasal Cannula Nasal Cannula Nasal Cannula O2 Flow Rate 1.0 1.0 1.0 1.0 09/28/21 09/28/21 09/28/21 09/28/21 21:00 21:26 22:00 23:00 Temp 98.2 98.2 Pulse 92 92 70 Resp 16 25 16 16 B/P (MAP) 135/67 (89) 135/67 (89) 121/64 (83) Pulse Ox 97 98 97 97 O2 Delivery Nasal Cannula Nasal Cannula Nasal Cannula Nasal Cannula O2 Flow Rate 1.0 1.0 1.0 09/29/21 09/29/21 09/29/21 09/29/21 00:01 01:00 02:00 03:00 Pulse 72 64 64 60 Resp 16 16 16 16 B/P (MAP) 121/64 (83) 109/57 (74) 108/55 (72) 107/60 (76) Pulse Ox 97 98 98 98 O2 Delivery Nasal Cannula Nasal Cannula Nasal Cannula Nasal Cannula O2 Flow Rate 1.0 1.0 1.0 1.0 09/29/21 09/29/21 09/29/21 09/29/21 04:00 05:00 06:00 08:40 Pulse 60 60 60 81 Resp 16 16 16 B/P (MAP) 107/58 (74) 108/57 (74) 109/58 (75) 121/62 Pulse Ox 98 98 98 O2 Delivery Nasal Cannula Nasal Cannula Nasal Cannula O2 Flow Rate 1.0 1.0 1.0 Intake and Output 09/28/21 09/28/21 09/29/21 15:00 23:00 07:00 Intake Total 950 ml 1658 ml Output Total 1450 ml 1620 ml Balance -500 ml 38 ml Justifications for Admission Other Justification uncontrolled diabetes TERRY JURADO MD Sep 29, 2021 09:36
--- NOTE | 2021-09-29 11:37 | PDOC ---
[facility] PROGRESS NOTE Date of Service DOS: DATE: 09/29/21 TIME: 11:35 Chief Complaint Chief Complaint Postoperative cervical laminectomy. We are going to resume his home meds plus the sliding scale. Wound care, PT, OT. DVT prophylaxis. Full code. Continue the current dexamethasone and cefazolin. Suspect he might need assisted. Transfuse 1 unit packed red blood cells today History of Present Illness History of Present Illness 09/29 Patient evaluated at bedside. Underwent MRI this morning. Symptoms very similar to yesterday but he feels like he is regaining some function. Pain controlled. PT OT. Hemoglovin stable. 09/28 Evaluate examined at bedside. Resting in bed had no complaints to me. Said pain is quite improved. Did okay with transfusion yesterday. Continue current treatments. PT/OT. Discussed with bedside RN. Roxi 09/27 Patient evaluated examined at bedside. Was resting in bed easily awoken able to answer some questions. Some movement in his upper extremities but very limited in lower. Transfuse 1 unit today. Plan discussed with RN. Vitals/I&O Vitals/I&O: Vital Signs Date Time Temp Pulse Resp B/P (MAP) Pulse Ox O2 Delivery O2 Flow Rate FiO2 09/29/21 08:40 81 121/62 09/29/21 08:00 Nasal Cannula 2.0 09/29/21 06:00 16 98 09/28/21 22:00 98.2 98.2 I & O 09/28/21 09/28/21 09/29/21 15:00 23:00 07:00 Intake Total 950 ml 1658 ml Output Total 1450 ml 1620 ml Balance -500 ml 38 ml Physical Exam General: Alert, Oriented X3, Cooperative, No acute distress Heart: Regular rate Lungs: Clear Abdomen: Normal bowel sounds, Soft, No tenderness Extremities: No edema, Normal pulses Skin: Other Labs Labs: Laboratory Tests Test 09/29/21 03:25 White Blood Count 12.5 x10^3/uL (4.0-11.0) Red Blood Count 2.87 x10^6/uL (4.30-5.70) Hemoglobin 8.2 g/dL (13.0-17.5) Hematocrit 24.4 % (39.0-53.0) Mean Corpuscular Volume 85 fL (79-100) Mean Corpuscular Hemoglobin 28 pg (25-35) Mean Corpuscular Hemoglobin Concent 34 g/dL (31-37) Red Cell Distribution Width 13.5 % (11.5-14.5) Platelet Count 145 x10^3/uL (140-400) Neutrophils (%) (Auto) 62 % (31-73) Lymphocytes (%) (Auto) 26 % (24-48) Monocytes (%) (Auto) 11 % (0-9) Eosinophils (%) (Auto) 1 % (0-3) Basophils (%) (Auto) 0 % (0-3) Neutrophils # (Auto) 7.8 x10^3/uL (1.8-7.7) Lymphocytes # (Auto) 3.2 x10^3/uL (1.0-4.8) Monocytes # (Auto) 1.4 x10^3/uL (0.0-1.1) Eosinophils # (Auto) 0.1 x10^3/uL (0.0-0.7) Basophils # (Auto) 0.0 x10^3/uL (0.0-0.2) Sodium Level 139 mmol/L (136-145) Potassium Level 3.9 mmol/L (3.5-5.1) Chloride Level 103 mmol/L (98-107) Carbon Dioxide Level 29 mmol/L (21-32) Anion Gap 7 (6-14) Blood Urea Nitrogen 22 mg/dL (8-26) Creatinine 0.7 mg/dL (0.7-1.3) Estimated GFR (Cockcroft-Gault) 138.7 Glucose Level 178 mg/dL (70-99) Calcium Level 7.5 mg/dL (8.5-10.1) Comment Review of Relevant I have reviewed the following items michelle (where applicable) has been applied. Medications: Current Medications Medications (Trade) Dose Ordered Sig/[place] Route PRN Reason Start Time Stop Time Status Last Admin Dose Admin Gadoterate Meglumine ([place]) 19 ml 1X ONCE IVP 09/29/21 08:15 09/29/21 08:17 DC 09/29/21 10:32 Justifications for Admission Other Justification uncontrolled diabetes STACY LÓPEZ MD Sep 29, 2021 11:37
[2021-09-29] MEDS: IV 1/2 NORMAL SALINE 1,000 ML IV SCH ×2 (11:38→20:32)
[2021-09-29] MEDS: fentaNYL PF VIAL 100 MCG/2 ML VIAL IVP PRN ×5 (12:22→23:01)
--- NOTE | 2021-09-29 13:36 | PDOC ---
PROGRESS NOTES Date of Service DATE: 09/29/21 TIME: 13:26 Subjective Subjective POD #3 S/P Evacuation of epidural hematoma, s/p cervical laminectomy and fusion 09/25/21 Pain improving, Feels hands are slightly stronger Objective Objective Vital Signs Date Time Temp Pulse Resp B/P (MAP) Pulse Ox O2 Delivery O2 Flow Rate FiO2 09/29/21 12:52 18 100 Nasal Cannula 2.0 09/29/21 11:00 68 126/71 (89) 09/29/21 08:00 98.5 98.5 Intake and Output 09/29/21 07:00 Intake Total 2608 ml Output Total 3070 ml Balance -462 ml Intake Oral 1350 ml IV Total 1258 ml Output Urine Total 3050 ml Drainage Total 20 ml Physical Exam General: Alert, Oriented X3, Cooperative, No acute distress Neuro: Normal speech, Other (Normal speech, Other (sensation improved in upper and lower extremites, moves upper extremities with 3/5 strength, hand grasps slightly stronger) Skin: Other (drain removed without difficulty, dressing changed, favio intact) Plan Plan of Care Cervical MRI reviewed, I do not see pressure on the spinal cord drain out keep in ICU D/W RN Comment Review of Relevant I have reviewed the following items michelle (where applicable) has been applied. Labs Laboratory Tests Test 09/27/21 20:11 09/28/21 04:35 09/28/21 05:35 09/28/21 08:31 Glucose (Fingerstick) 321 mg/dL (70-99) 266 mg/dL (70-99) Sodium Level 136 mmol/L (136-145) Potassium Level 4.6 mmol/L (3.5-5.1) Chloride Level 103 mmol/L (98-107) Carbon Dioxide Level 30 mmol/L (21-32) Anion Gap 3 (6-14) Blood Urea Nitrogen 24 mg/dL (8-26) Creatinine 0.8 mg/dL (0.7-1.3) Estimated GFR (Cockcroft-Gault) 118.9 Glucose Level 277 mg/dL (70-99) Calcium Level 7.5 mg/dL (8.5-10.1) White Blood Count 11.1 x10^3/uL (4.0-11.0) Red Blood Count 3.09 x10^6/uL (4.30-5.70) Hemoglobin 8.6 g/dL (13.0-17.5) Hematocrit 26.5 % (39.0-53.0) Mean Corpuscular Volume 86 fL (79-100) Mean Corpuscular Hemoglobin 28 pg (25-35) Mean Corpuscular Hemoglobin Concent 32 g/dL (31-37) Red Cell Distribution Width 13.5 % (11.5-14.5) Platelet Count 124 x10^3/uL (140-400) Neutrophils (%) (Auto) 84 % (31-73) Lymphocytes (%) (Auto) 10 % (24-48) Monocytes (%) (Auto) 7 % (0-9) Eosinophils (%) (Auto) 0 % (0-3) Basophils (%) (Auto) 0 % (0-3) Neutrophils # (Auto) 9.2 x10^3/uL (1.8-7.7) Lymphocytes # (Auto) 1.1 x10^3/uL (1.0-4.8) Monocytes # (Auto) 0.7 x10^3/uL (0.0-1.1) Eosinophils # (Auto) 0.0 x10^3/uL (0.0-0.7) Basophils # (Auto) 0.0 x10^3/uL (0.0-0.2) Test 09/29/21 03:25 White Blood Count 12.5 x10^3/uL (4.0-11.0) Red Blood Count 2.87 x10^6/uL (4.30-5.70) Hemoglobin 8.2 g/dL (13.0-17.5) Hematocrit 24.4 % (39.0-53.0) Mean Corpuscular Volume 85 fL (79-100) Mean Corpuscular Hemoglobin 28 pg (25-35) Mean Corpuscular Hemoglobin Concent 34 g/dL (31-37) Red Cell Distribution Width 13.5 % (11.5-14.5) Platelet Count 145 x10^3/uL (140-400) Neutrophils (%) (Auto) 62 % (31-73) Lymphocytes (%) (Auto) 26 % (24-48) Monocytes (%) (Auto) 11 % (0-9) Eosinophils (%) (Auto) 1 % (0-3) Basophils (%) (Auto) 0 % (0-3) Neutrophils # (Auto) 7.8 x10^3/uL (1.8-7.7) Lymphocytes # (Auto) 3.2 x10^3/uL (1.0-4.8) Monocytes # (Auto) 1.4 x10^3/uL (0.0-1.1) Eosinophils # (Auto) 0.1 x10^3/uL (0.0-0.7) Basophils # (Auto) 0.0 x10^3/uL (0.0-0.2) Sodium Level 139 mmol/L (136-145) Potassium Level 3.9 mmol/L (3.5-5.1) Chloride Level 103 mmol/L (98-107) Carbon Dioxide Level 29 mmol/L (21-32) Anion Gap 7 (6-14) Blood Urea Nitrogen 22 mg/dL (8-26) Creatinine 0.7 mg/dL (0.7-1.3) Estimated GFR (Cockcroft-Gault) 138.7 Glucose Level 178 mg/dL (70-99) Calcium Level 7.5 mg/dL (8.5-10.1) Laboratory Tests Test 09/29/21 03:25 White Blood Count 12.5 x10^3/uL (4.0-11.0) Red Blood Count 2.87 x10^6/uL (4.30-5.70) Hemoglobin 8.2 g/dL (13.0-17.5) Hematocrit 24.4 % (39.0-53.0) Mean Corpuscular Volume 85 fL (79-100) Mean Corpuscular Hemoglobin 28 pg (25-35) Mean Corpuscular Hemoglobin Concent 34 g/dL (31-37) Red Cell Distribution Width 13.5 % (11.5-14.5) Platelet Count 145 x10^3/uL (140-400) Neutrophils (%) (Auto) 62 % (31-73) Lymphocytes (%) (Auto) 26 % (24-48) Monocytes (%) (Auto) 11 % (0-9) Eosinophils (%) (Auto) 1 % (0-3) Basophils (%) (Auto) 0 % (0-3) Neutrophils # (Auto) 7.8 x10^3/uL (1.8-7.7) Lymphocytes # (Auto) 3.2 x10^3/uL (1.0-4.8) Monocytes # (Auto) 1.4 x10^3/uL (0.0-1.1) Eosinophils # (Auto) 0.1 x10^3/uL (0.0-0.7) Basophils # (Auto) 0.0 x10^3/uL (0.0-0.2) Sodium Level 139 mmol/L (136-145) Potassium Level 3.9 mmol/L (3.5-5.1) Chloride Level 103 mmol/L (98-107) Carbon Dioxide Level 29 mmol/L (21-32) Anion Gap 7 (6-14) Blood Urea Nitrogen 22 mg/dL (8-26) Creatinine 0.7 mg/dL (0.7-1.3) Estimated GFR (Cockcroft-Gault) 138.7 Glucose Level 178 mg/dL (70-99) Calcium Level 7.5 mg/dL (8.5-10.1) Medications Current Medications Fentanyl Citrate (Fentanyl 2ml Vial) 25 mcg PRN Q5MIN PRN IVP MILD PAIN 1-3; Start 09/25/21 at 06:00; Stop 09/25/21 at 20:00; Status DC Fentanyl Citrate (Fentanyl 2ml Vial) 50 mcg PRN Q5MIN PRN IVP MODERATE PAIN 4-6 Last administered on 09/25/21at 13:48; Start 09/25/21 at 06:00; Stop 09/25/21 at 20:00; Status DC Morphine Sulfate (Morphine Sulfate) 1 mg PRN Q10MIN PRN IVP SEVERE PAIN 7-10 Last administered on 09/25/21at 14:21; Start 09/25/21 at 06:00; Stop 09/25/21 at 20:00; Status DC Ringer's Solution 1,000 ml @ 30 mls/hr Q24H IV Last administered on 09/25/21at 12:54; Start 09/25/21 at 06:00; Stop 09/25/21 at 17:59; Status DC Hydromorphone HCl (Dilaudid) 0.5 mg PRN Q10MIN PRN IVP SEVERE PAIN 7-10, 2nd CHOICE Last administered on 09/25/21at 16:53; Start 09/25/21 at 06:00; Stop 09/25/21 at 20:00; Status DC Prochlorperazine Edisylate (Compazine) 5 mg PACU PRN PRN IVP NAUSEA, MRX1; Start 09/25/21 at 06:00; Stop 09/25/21 at 20:00; Status DC Cefazolin Sodium 1 gm/Sodium Chloride 1,000 ml @ 1,000 mls/hr 1X ONCE IRR Last administered on 09/25/21at 10:14; Start 09/25/21 at 06:00; Stop 09/25/21 at 06:59; Status DC Cefazolin Sodium/ Dextrose 50 ml @ 100 mls/hr 1X PREOP PRN IV PRIOR TO PROCEDURE Last administered on 09/25/21at 09:30; Start 09/25/21 at 06:00; Stop 09/25/21 at 13:39; Status DC Insulin Human Lispro (HumaLOG VIAL for OP,RR ONLY) 0-10 units PRN Q1HR PRN SQ PER PROTOCOL Last administered on 09/25/21at 17:01; Start 09/25/21 at 07:00; Stop 09/25/21 at 18:00; Status DC Bupivacaine HCl/ Epinephrine Bitart (Sensorcain-Epi 0.5% Kit) 30 ml STK-MED ONCE INJ Last administered on 09/25/21at 10:14; Start 09/25/21 at 10:14; Stop 09/25/21 at 10:30; Status DC Ketorolac Tromethamine (Toradol Im) 60 mg STK-MED ONCE INJ Last administered on 09/25/21at 10:14; Start 09/25/21 at 10:14; Stop 09/25/21 at 10:30; Status DC Thrombin 20,000 unit STK-MED ONCE TP Last administered on 09/25/21at 10:14; Start 09/25/21 at 10:14; Stop 09/25/21 at 10:30; Status DC Gelatin (Gelfoam Size 100) 1 each STK-MED ONCE TP Last administered on 09/25/21at 10:14; Start 09/25/21 at 10:14; Stop 09/25/21 at 10:30; Status DC Acetaminophen (Tylenol) 650 mg PRN Q4HRS PRN PO TEMP OVER 100.4F OR MILD PAIN; Start 09/25/21 at 12:30 Aspirin (Aspirin Chewable) 81 mg DAILY PO Last administered on 09/26/21 08:30; Start 09/26/21 at 09:00; Stop 09/28/21 at 17:19; Status DC Atorvastatin Calcium (Lipitor) 10 mg QHS PO Last administered on 09/28/21 21:26; Start 09/25/21 at 21:00 Baclofen (Lioresal) 10 mg BID PO Last administered on 09/29/21 08:40; Start 09/25/21 at 21:00 Diazepam (Valium) 5 mg TID PO Last administered on 09/29/21 08:39; Start 09/25/21 at 14:00 Docusate Sodium (Colace) 100 mg PRN BID PRN PO HARD STOOLS Last administered on 09/29/21 08:39; Start 09/25/21 at 12:30 Fluticasone Propionate (Flonase) 2 spray DAILY NS Last administered on 09/29/21 08:41; Start 09/26/21 at 09:00 Hydroxyzine HCl (Atarax) 25 mg PRN Q6HRS PRN PO itching Last administered on 09/29/21 06:22; Start 09/25/21 at 12:30 Lidocaine (Lidoderm) 1 patch QHS TP Last administered on 09/28/21 21:28; Start 09/25/21 at 20:00 Linagliptin (Tradjenta) 5 mg DAILY PO Last administered on 09/29/21 08:40; Start 09/25/21 at 13:00 Miconazole Nitrate (Monistat-Derm) 1 crispin TID TP Last administered on 09/29/21 08:42; Start 09/25/21 at 21:00 Midodrine (Proamatine) 2.5 mg PRN 1X PRN PO hypotension Last administered on 09/27/21 08:56; Start 09/25/21 at 12:30 Oxycodone HCl (Roxicodone) 10 mg PRN Q6HRS PRN PO MODERATE-SEVERE PAIN Last administered on 09/28/21 21:26; Start 09/25/21 at 12:30 Diclofenac Sodium (Voltaren) 1 crispin PRN TID PRN TP PAIN CONTROL; Start 09/25/21 at 13:15; Stop 09/25/21 at 18:37; Status DC Insulin Glargine (Lantus Syringe) 4 unit QHS SQ Last administered on 09/28/21at 21:29; Start 09/25/21 at 21:00 Losartan Potassium (Cozaar) 25 mg DAILY08 PO Last administered on 09/29/21at 08:40; Start 09/26/21 at 08:00 Polyethylene Glycol (miraLAX PACKET) 17 gm DAILY PO Last administered on 09/29/21at 08:39; Start 09/25/21 at 14:00 Pregabalin (Lyrica) 100 mg BID PO Last administered on 09/29/21at 08:40; Start 09/25/21 at 21:00 Acetaminophen (Tylenol) 650 mg PRN Q6HRS PRN PO MILD PAIN / TEMP > 100.3'F; Start 09/25/21 at 12:30; Status Cancel Al Hydroxide/Mg Hydroxide (Mylanta Plus Xs) 30 ml PRN Q3HRS PRN PO HEARTBURN / GAS; Start 09/25/21 at 12:30 Calcium Carbonate/ Glycine (Tums) 500 mg PRN Q3HRS PRN PO INDIGESTION; Start 09/25/21 at 12:30 Diphenhydramine HCl (Benadryl) 25 mg PRN Q6HRS PRN PO ITCHING; Start 09/25/21 at 12:30 Naloxone HCl (Narcan) 0.1 mg PRN Q2MIN PRN IV SEE COMMENTS; Start 09/25/21 at 12:30 Sodium Chloride (Normal Saline Flush) 3 ml QSHIFT PRN IV AFTER MEDS AND BLOOD DRAWS; Start 09/25/21 at 12:30 Potassium Chloride/Sodium Chloride 1,000 ml @ 75 mls/hr [id number] IV Last administered on 09/26/21at 07:00; Start 09/25/21 at 12:30; Stop 09/26/21 at 17:33; Status DC Magnesium Hydroxide (Milk Of Magnesia) 2,400 mg PRN Q12HR PRN PO CONSTIPATION; Start 09/25/21 at 12:30 Cefazolin Sodium (Ancef) 1 gm Q8H IVP Last administered on 09/26/21at 04:14; Start 09/25/21 at 18:00; Stop 09/26/21 at 10:01; Status DC Fentanyl Citrate (Fentanyl 2ml Vial) 50 mcg PRN Q2HR PRN IVP MODERATE TO SEVERE PAIN Last administered on 09/29/21at 12:22; Start 09/25/21 at 12:30 Dextrose (Dextrose 50%-Water Syringe) 12.5 gm PRN Q15MIN PRN IV SEE COMMENTS; Start 09/25/21 at 12:30 Dextrose (Iv Dextrose 5%) 250 ml PRN Q15MIN PRN IV SEE COMMENTS; Start 09/25/21 at 12:30 Gelatin (Gelfoam Size 100) 1 each STK-MED ONCE .ROUTE ; Start 09/25/21 at 06:37; Stop 09/25/21 at 14:55; Status DC Bupivacaine HCl/ Epinephrine Bitart (Sensorcain-Epi 0.5% Kit) 30 ml STK-MED ONCE .ROUTE ; Start 09/25/21 at 06:37; Stop 09/25/21 at 14:55; Status DC Ketorolac Tromethamine (Toradol Im) 60 mg STK-MED ONCE .ROUTE ; Start 09/25/21 at 06:37; Stop 09/25/21 at 14:55; Status DC Thrombin 20,000 unit STK-MED ONCE TP ; Start 09/25/21 at 06:38; Stop 09/25/21 at 14:55; Status DC Propofol (Diprivan) 200 mg STK-MED ONCE IV ; Start 09/25/21 at 05:54; Stop 09/25/21 at 14:57; Status DC Lidocaine HCl (Lidocaine Pf 2% Vial) 5 ml STK-MED ONCE .ROUTE ; Start 09/25/21 at 05:54; Stop 09/25/21 at 14:57; Status DC Ondansetron HCl (Zofran) 4 mg STK-MED ONCE .ROUTE ; Start 09/25/21 at 05:54; Stop 09/25/21 at 14:57; Status DC Phenylephrine HCl (Ramone-Synephrine Inj) 10 mg STK-MED ONCE .ROUTE ; Start 09/25/21 at 05:54; Stop 09/25/21 at 14:57; Status DC Propofol 50 ml @ As Directed STK-MED ONCE IV ; Start 09/25/21 at 05:54; Stop 09/25/21 at 14:57; Status DC Dexamethasone Sodium Phosphate (Decadron) 4 mg STK-MED ONCE .ROUTE ; Start 09/25/21 at 05:54; Stop 09/25/21 at 14:57; Status DC Fentanyl Citrate (Fentanyl 2ml Vial) 100 mcg STK-MED ONCE .ROUTE ; Start 09/25/21 at 05:54; Stop 09/25/21 at 14:57; Status DC Succinylcholine Chloride (Anectine) 200 mg STK-MED ONCE .ROUTE ; Start 09/25/21 at 05:54; Stop 09/25/21 at 14:57; Status DC Remifentanil HCl (Ultiva) 1 mg STK-MED ONCE IV ; Start 09/25/21 at 05:54; Stop 09/25/21 at 14:57; Status DC Glycopyrrolate (Robinul) 1 mg STK-MED ONCE .ROUTE ; Start 09/25/21 at 07:11; Stop 09/25/21 at 15:01; Status DC Propofol 50 ml @ As Directed STK-MED ONCE IV ; Start 09/25/21 at 08:07; Stop 09/25/21 at 15:02; Status DC Ketamine HCl (Ketamine) 50 mg STK-MED ONCE .ROUTE ; Start 09/25/21 at 08:15; Stop 09/25/21 at 15:02; Status DC Hydromorphone HCl (Dilaudid) 2 mg STK-MED ONCE .ROUTE ; Start 09/25/21 at 10:44; Stop 09/25/21 at 15:03; Status DC Fentanyl Citrate (Fentanyl 2ml Vial) 100 mcg STK-MED ONCE .ROUTE ; Start 09/25/21 at 13:26; Stop 09/25/21 at 15:04; Status DC Morphine Sulfate (Morphine Sulfate) 2 mg STK-MED ONCE .ROUTE ; Start 09/25/21 at 14:04; Stop 09/25/21 at 15:05; Status DC Hydromorphone HCl (Dilaudid) 2 mg STK-MED ONCE .ROUTE ; Start 09/25/21 at 14:54; Stop 09/25/21 at 15:06; Status DC Menthol/Methyl Salicylate (Bengay Greaseless Cream) 1 crispin PRN Q30MIN PRN TP MUSCLE PAIN Last administered on 09/29/21at 08:42; Start 09/25/21 at 18:45 Mupirocin (Bactroban) 1 crispin BID NS Last administered on 09/28/21at 21:00; Start 09/26/21 at 09:00 Dexamethasone Sodium Phosphate (Decadron) 10 mg 1X ONCE IVP Last administered on 09/26/21at 07:31; Start 09/26/21 at 07:30; Stop 09/26/21 at 07:31; Status DC Cefazolin Sodium 1 gm/Sodium Chloride 1,000 ml @ 1,000 mls/hr 1X ONCE IRR Last administered on 09/26/21at 11:52; Start 09/26/21 at 10:30; Stop 09/26/21 at 11:29; Status DC Cefazolin Sodium (Ancef) 1 gm STK-MED ONCE IVP ; Start 09/26/21 at 10:05; Stop 09/26/21 at 10:06; Status DC Lidocaine HCl (Lidocaine Pf 2% Vial) 5 ml STK-MED ONCE .ROUTE ; Start 09/26/21 at 10:18; Stop 09/26/21 at 10:18; Status DC Ondansetron HCl (Zofran) 4 mg STK-MED ONCE .ROUTE ; Start 09/26/21 at 10:18; Stop 09/26/21 at 10:18; Status DC Propofol (Diprivan) 200 mg STK-MED ONCE IV ; Start 09/26/21 at 10:18; Stop 09/26/21 at 10:19; Status DC Dexamethasone Sodium Phosphate (Decadron) 4 mg STK-MED ONCE .ROUTE ; Start 09/26/21 at 10:18; Stop 09/26/21 at 10:19; Status DC Sevoflurane (Ultane) 30 ml STK-MED ONCE IH ; Start 09/26/21 at 10:18; Stop 09/26/21 at 10:19; Status DC Fentanyl Citrate (Fentanyl 2ml Vial) 100 mcg STK-MED ONCE .ROUTE ; Start 09/26/21 at 10:19; Stop 09/26/21 at 10:19; Status DC Rocuronium Winston (Zemuron) 50 mg STK-MED ONCE .ROUTE ; Start 09/26/21 at 10:19; Stop 09/26/21 at 10:19; Status DC Insulin Human Lispro (HumaLOG VIAL for OP,RR ONLY) 0-10 units PRN Q1HR PRN SQ PER PROTOCOL Last administered on 09/26/21at 15:11; Start 09/26/21 at 10:30; Stop 09/26/21 at 18:00; Status DC Sugammadex Sodium (Bridion) 200 mg 1X ONCE IVP Last administered on 09/26/21at 10:30; Start 09/26/21 at 10:30; Stop 09/26/21 at 10:31; Status DC Gelatin (Gelfoam Size 100) 1 each STK-MED ONCE .ROUTE Last administered on 09/26/21at 11:52; Start 09/26/21 at 10:30; Stop 09/26/21 at 10:30; Status DC Bupivacaine HCl/ Epinephrine Bitart (Sensorcain-Epi 0.5% Kit) 30 ml STK-MED ONCE .ROUTE ; Start 09/26/21 at 10:30; Stop 09/26/21 at 10:30; Status DC Ketorolac Tromethamine (Toradol Im) 60 mg STK-MED ONCE .ROUTE ; Start 09/26/21 at 10:30; Stop 09/26/21 at 10:30; Status DC Thrombin 20,000 unit STK-MED ONCE TP Last administered on 09/26/21at 11:52; Start 09/26/21 at 10:30; Stop 09/26/21 at 10:31; Status DC Cefazolin Sodium/ Dextrose 50 ml @ As Directed STK-MED ONCE IV ; Start 09/26/21 at 10:32; Stop 09/26/21 at 10:32; Status DC Vancomycin HCl 1 gm/Sodium Chloride 250 ml @ 250 mls/hr PREOP PRN PRN IV PRIOR TO PROCEDURE; Start 09/26/21 at 10:45; Stop 09/26/21 at 14:00; Status DC Cefazolin Sodium/ Dextrose 50 ml @ 100 mls/hr 1X ONCE IV Last administered on 09/26/21at 11:00; Start 09/26/21 at 11:00; Stop 09/26/21 at 11:29; Status DC Dexamethasone Sodium Phosphate (Decadron) 4 mg STK-MED ONCE .ROUTE ; Start 09/26/21 at 11:04; Stop 09/26/21 at 11:04; Status DC Glycopyrrolate (Robinul) 1 mg STK-MED ONCE .ROUTE ; Start 09/26/21 at 11:04; Stop 09/26/21 at 11:04; Status DC Hydromorphone HCl (Dilaudid) 2 mg STK-MED ONCE .ROUTE ; Start 09/26/21 at 11:56; Stop 09/26/21 at 11:56; Status DC Fentanyl Citrate (Fentanyl 2ml Vial) 25 mcg PRN Q5MIN PRN IVP MILD PAIN 1-3; Start 09/26/21 at 14:30; Stop 09/26/21 at 18:15; Status DC Fentanyl Citrate (Fentanyl 2ml Vial) 50 mcg PRN Q5MIN PRN IVP MODERATE PAIN 4- 6; Start 09/26/21 at 14:30; Stop 09/26/21 at 18:15; Status DC Morphine Sulfate (Morphine Sulfate) 1 mg PRN Q10MIN PRN IVP SEVERE PAIN 7-10; Start 09/26/21 at 14:30; Stop 09/26/21 at 18:15; Status DC Ringer's Solution 1,000 ml @ 30 mls/hr Q24H IV Last administered on 09/26/21at 15:18; Start 09/26/21 at 14:30; Stop 09/26/21 at 21:00; Status DC Hydromorphone HCl (Dilaudid) 0.5 mg PRN Q10MIN PRN IVP SEVERE PAIN 7-10, 2nd CHOICE; Start 09/26/21 at 14:30; Stop 09/26/21 at 18:15; Status DC Prochlorperazine Edisylate (Compazine) 5 mg PACU PRN PRN IVP NAUSEA, MRX1; Start 09/26/21 at 14:30; Stop 09/26/21 at 21:00; Status DC Fentanyl Citrate (Fentanyl 2ml Vial) 100 mcg STK-MED ONCE .ROUTE ; Start 09/26/21 at 14:23; Stop 09/26/21 at 14:25; Status DC Fentanyl Citrate (Fentanyl 2ml Vial) 25 mcg PRN Q5MIN PRN IVP MILD PAIN 1-3; Start 09/26/21 at 14:30; Stop 09/27/21 at 14:29; Status UNV Fentanyl Citrate (Fentanyl 2ml Vial) 50 mcg PRN Q5MIN PRN IVP MODERATE PAIN 4- 6; Start 09/26/21 at 14:30; Stop 09/27/21 at 14:29; Status UNV Morphine Sulfate (Morphine Sulfate) 1 mg PRN Q10MIN PRN IVP SEVERE PAIN 7-10; Start 09/26/21 at 14:30; Stop 09/27/21 at 14:29; Status UNV Ringer's Solution 1,000 ml @ 30 mls/hr Q24H IV ; Start 09/26/21 at 14:30; Stop 09/27/21 at 02:29; Status UNV Hydromorphone HCl (Dilaudid) 0.5 mg PRN Q10MIN PRN IVP SEVERE PAIN 7-10, 2nd CHOICE; Start 09/26/21 at 14:30; Stop 09/27/21 at 14:29; Status UNV Prochlorperazine Edisylate (Compazine) 5 mg PACU PRN PRN IVP NAUSEA, MRX1; Start 09/26/21 at 14:30; Stop 09/27/21 at 14:29; Status UNV Dexamethasone Sodium Phosphate (Decadron) 4 mg Q6HRS IVP Last administered on 09/28/21at 05:06; Start 09/26/21 at 18:00; Stop 09/28/21 at 06:00; Status DC Sodium Chloride 1,000 ml @ 100 mls/hr Q10H IV Last administered on 09/29/21at 11:38; Start 09/26/21 at 17:30 Cefazolin Sodium (Ancef) 1 gm Q8HRS IVP ; Start 09/27/21 at 06:00; Stop 09/27/21 at 05:47; Status DC Vancomycin HCl 1 gm/Sodium Chloride 250 ml @ 166.667 mls/hr 1X ONCE IV Last administered on 09/27/21at 06:27; Start 09/27/21 at 06:00; Stop 09/27/21 at 07:29; Status DC Gadoterate Meglumine (Clariscan) 19 ml 1X ONCE IVP Last administered on 09/29/21at 10:32; Start 09/29/21 at 08:15; Stop 09/29/21 at 08:17; Status DC Active Scripts Active Dok (Docusate Sodium) 100 Mg Capsule 100 Mg PO PRN BID PRN 30 Days Tylenol (Acetaminophen) 325 Mg Tablet 650 Mg PO PRN Q4HRS PRN 30 Days Valium (Diazepam) 5 Mg Tablet 5 Mg PO TID Atorvastatin Calcium 10 Mg Tablet 10 Mg PO QHS Reported Midodrine Hcl 2.5 Mg Tablet 2.5 Mg PO PRN 1X PRN Aspirin 81 Mg Tab.chew 81 Mg PO DAILY Baclofen 10 Mg Tablet 10 Mg PO BID Lyrica (Pregabalin) 100 Mg Capsule 100 Mg PO BID 30 Days Polyethylene Glycol 3350 2,500 Gm Powder 17 Gm PO DAILY 30 Days Oxycodone HCl 5 Mg Tablet 10 Mg PO PRN Q6HRS PRN Micatin (Miconazole Nitrate) 14 Gm Cream..g. 1 Crispin TP TID Tradjenta (Linagliptin) 5 Mg Tablet 5 Mg PO DAILY Lidocaine PATCH (Lidocaine) 1 Each Adh..patch 1 Each TP DAILY REMOVE AFTER 12 HOURS Levemir (Insulin Detemir) 100 Unit/1 Ml Vial 4 Unit SQ HS Hydroxyzine Hcl 25 Mg Tablet 25 Mg PO PRN Q6HRS PRN Fluticasone Propionate Nasal [employer] (Fluticasone Propionate) 16 Gm [employer].susp 2 [employer] NS DAILY Diclofenac Sodium 100 Gm Gel..gram. 100 Gm TP PRN TID PRN Losartan Potassium 100 Mg Tablet 25 Tab PO DAILY08 Vitals/I & O Vital Sign - Last 24 Hours 09/28/21 09/28/21 09/28/21 09/28/21 14:00 15:00 16:00 17:00 Temp 98.2 98.2 Pulse 92 85 68 85 Resp 16 19 18 14 B/P (MAP) 128/53 (78) 135/64 (87) 124/54 (77) 116/67 (83) Pulse Ox 99 99 97 99 O2 Delivery Nasal Cannula Nasal Cannula Nasal Cannula Nasal Cannula O2 Flow Rate 1.0 1.0 1.0 1.0 09/28/21 09/28/21 09/28/21 09/28/21 18:00 19:00 20:00 20:00 Pulse 78 80 84 Resp 17 17 17 B/P (MAP) 146/64 (91) 130/60 (83) 130/64 (86) Pulse Ox 98 96 95 O2 Delivery Nasal Cannula Nasal Cannula Nasal Cannula Nasal Cannula O2 Flow Rate 1.0 1.0 1.0 1.0 09/28/21 09/28/21 09/28/21 09/28/21 21:00 21:26 22:00 23:00 Temp 98.2 98.2 Pulse 92 92 70 Resp 16 25 16 16 B/P (MAP) 135/67 (89) 135/67 (89) 121/64 (83) Pulse Ox 97 98 97 97 O2 Delivery Nasal Cannula Nasal Cannula Nasal Cannula Nasal Cannula O2 Flow Rate 1.0 1.0 1.0 09/29/21 09/29/21 09/29/21 09/29/21 00:01 01:00 02:00 03:00 Pulse 72 64 64 60 Resp 16 16 16 16 B/P (MAP) 121/64 (83) 109/57 (74) 108/55 (72) 107/60 (76) Pulse Ox 97 98 98 98 O2 Delivery Nasal Cannula Nasal Cannula Nasal Cannula Nasal Cannula O2 Flow Rate 1.0 1.0 1.0 1.0 09/29/21 09/29/21 09/29/21 09/29/21 04:00 05:00 06:00 07:00 Pulse 60 60 60 72 Resp 16 16 16 18 B/P (MAP) 107/58 (74) 108/57 (74) 109/58 (75) 135/56 (82) Pulse Ox 98 98 98 99 O2 Delivery Nasal Cannula Nasal Cannula Nasal Cannula Nasal Cannula O2 Flow Rate 1.0 1.0 1.0 2.0 09/29/21 09/29/21 09/29/21 09/29/21 08:00 08:00 08:40 09:00 Temp 98.5 98.5 Pulse 65 81 69 Resp 18 18 B/P (MAP) 125/63 (83) 121/62 122/54 (76) Pulse Ox 97 100 O2 Delivery Nasal Cannula Nasal Cannula Nasal Cannula O2 Flow Rate 2.0 2.0 2.0 09/29/21 09/29/21 09/29/21 09/29/21 10:00 11:00 12:22 12:52 Pulse 74 68 Resp 18 18 18 18 B/P (MAP) 135/72 (93) 126/71 (89) Pulse Ox 100 100 100 100 O2 Delivery Nasal Cannula Nasal Cannula Nasal Cannula Nasal Cannula O2 Flow Rate 2.0 2.0 2.0 2.0 Intake and Output 09/28/21 09/28/21 09/29/21 15:00 23:00 07:00 Intake Total 950 ml 1658 ml Output Total 1450 ml 1620 ml Balance -500 ml 38 ml Justifications for Admission Other Justification uncontrolled diabetes KELLEN BRUNO MD Sep 29, 2021 13:36
[2021-09-29] MEDS ORDERED: BISACODYL 10 MG SUPP.RECT. PR PRN (14:15)
[2021-09-29] MEDS: LACTULOSE 20 GM/30 ML SOLUTION. PO PRN (14:37)
--- NOTE | 2021-09-29 15:17 | RAD ---
EXAM: Cervical spine MRI without and with contrast. HISTORY: Cervical hematoma evacuation. TECHNIQUE: Multiplanar, multisequence magnetic resonance imaging of the cervical spine was performed without and with contrast. COMPARISON: CT dated 09/26/2021. MRI dated 07/28/2021. MRI dated 07/28/2021. FINDINGS: There is instrumented anterior spinal fusion and interbody fusion at C4-C6. There is viktoriya ctomy decompression and instrumented posterior fusion at C3-C7. The instrumentation is better charact erized on the recent CT. There is a drainage catheter within the laminectomy decompression space exte nding cephalad from C6 to terminate at C2. There is surrounding postoperative edema and susceptibilit y artifact. No drainable fluid collection is seen. There is central canal stenosis and deformation of the cervical spinal cord at multiple levels. There is associated focal T2 hyperintensity within the the dorsal aspect of the spinal cord at C5 due to m yelomalacia. This is stable in appearance. There is increased signal within the cervical spinal cord at T3 on sagittal images. This is likely artifactual rather than due to edema or myelomalacia, given the absence of a correlate signal abnormality on axial images. There is a 1.3 cm fluid signal intensi ty lesion within the right parotid gland. At C2-C3, there is endplate remodeling. There is no stenosis. At C3-C4, there is a left posterior lateral disc protrusion and osteophyte complex superimposed on a disc bulge and endplate remodeling. There is uncovertebral arthropathy. There is severe right and mil d to moderate left foraminal stenosis. There is deformation of the spinal cord and moderate central c anal stenosis measuring 6.1 mm. There are overlying laminectomy changes. At C4-C5, there is instrumented fusion and laminectomy decompression. There is endplate remodeling. T here is uncovertebral arthropathy. There is mild bilateral foraminal stenosis. At C5-C6, there is instrumented fusion and laminectomy decompression. There is endplate remodeling. T here is uncovertebral arthropathy. There is mild right foraminal stenosis. There is mild central han l stenosis. At C6-C7, there is a disc bulge and endplate remodeling. There is uncovertebral arthropathy. There is moderate bilateral facet arthropathy. There is mild right foraminal stenosis. At C7-T1, there is a suspected right foraminal disc osteophyte complex superimposed on a disc bulge a nd endplate remodeling. There is moderate to severe bilateral foraminal stenosis. IMPRESSION: 1. Interval placement of a surgical drain within laminectomy decompression spaces at the cervical lev els. No drainable focal lesion is seen. There is surrounding postoperative edema and susceptibility e ffect. 2. Instrumented anterior spinal fusion and interbody fusion at C4-C6 and posterior fusion at C3-C7. T he instrumentation is better characterized on the recent CT. 3. Deformation the spinal cord at multiple levels due to central canal stenosis. There are superimpos ed myelomalacia within C5, stable in appearance. 4. Degenerative changes resulting in foraminal and central canal stenosis as described above. The macie tral canal stenosis is decreased at C4-C5 and C5-C6 compared to the prior MRI. The stenosis is not si gnificantly changed the remainder of the levels. 4. Stable 1.3 cm suspected cystic lesion or T2 hyperintense lymph node within the right parotid gland . Electronically signed by: Delmi Freitas MD (09/29/2021 3:15 PM) [id number]
[2021-09-29] MEDS: oxyCODONE IR 5 MG TABLET PO PRN (18:42)
[2021-09-29] MEDS: ATORVASTATIN CALCIUM 10 MG TABLET. PO SCH (20:32)
[2021-09-29] MEDS: INSULIN GLARGINE SYRINGE. SQ SCH (20:36)
[2021-09-30] VITALS (19 sets, daily range): BP systolic 90–119; BP diastolic 46–65
[2021-09-30] MEDS: oxyCODONE IR 5 MG TABLET PO PRN ×4 (01:39→22:34)
[2021-09-30 05:23] LABS: CALCIUM 7.5 mg/dL (8.5-10.1); CREATININE 0.8 mg/dL (0.7-1.3); GFR 118.9; POTASSIUM 3.8 mmol/L (3.5-5.1)
[2021-09-30] MEDS: IV 1/2 NORMAL SALINE 1,000 ML IV SCH ×2 (05:35→14:42)
[2021-09-30 06:15] LABS: BASO % 0 % (0-3); EOS # 0.5 x10^3/uL (0.0-0.7); EOS % 4 % (0-3); HEMATOCRIT 25.7 % (39.0-53.0); HEMOGLOBIN 8.5 g/dL (13.0-17.5); LYMPH # 4.4 x10^3/uL (1.0-4.8); LYMPH % 33 % (24-48); MEAN CORPUSCULAR HEMOGLOBIN 29 pg (25-35); MEAN CORPUSCULAR HGB CONC 33 g/dL (31-37); MEAN CORPUSCULAR VOLUME 86 fL (79-100); MONO # 1.4 x10^3/uL (0.0-1.1); MONO % 10 % (0-9); NEUT # 6.9 x10^3/uL (1.8-7.7); NEUT % 52 % (31-73); PLATELET COUNT 159 x10^3/uL (140-400); RED BLOOD COUNT 2.99 x10^6/uL (4.30-5.70); RED CELL DISTRIBUTION WIDTH 13.9 % (11.5-14.5); WHITE BLOOD COUNT 13.2 x10^3/uL (4.0-11.0)
[2021-09-30] MEDS: LOSARTAN POTASSIUM 25 MG TABLET. PO SCH (08:12)
[2021-09-30] MEDS: BACLOFEN 10 MG TABLET. PO SCH ×2 (08:12→20:26)
[2021-09-30] MEDS: PREGABALIN 50 MG CAPSULE PO SCH ×2 (08:13→20:27)
[2021-09-30] MEDS: diazePAM 5 MG TABLET PO SCH ×3 (08:14→22:55)
[2021-09-30] MEDS: METHYL SALICYLATE/MENTHOL TOPICAL CREAM 57GM TUBE. TP PRN ×2 (08:15→21:07)
[2021-09-30] MEDS: fentaNYL PF VIAL 100 MCG/2 ML VIAL IVP PRN ×4 (08:15→17:45)
[2021-09-30] MEDS: POLYETHYLENE GLYCOL 3350 17 GM PACKET. PO SCH (08:15)
[2021-09-30] MEDS: MICONAZOLE NITRATE 2% TOPICAL CREAM 30GM TUBE. TP SCH ×3 (08:15→21:00)
[2021-09-30] MEDS: MUPIROCIN 2 % OINTMENT 22GM TUBE. NS SCH ×2 (08:16→21:00)
[2021-09-30] MEDS: FLUTICASONE 50MCG/NASAL SPRAY 16GM BOTTLE. NS SCH (08:16)
[2021-09-30] MEDS: LINAGLIPTIN 5 MG TABLET PO SCH (08:30)
--- NOTE | 2021-09-30 10:08 | PDOC ---
PROGRESS NOTES Date of Service DATE: 09/30/21 TIME: 10:04 Subjective Subjective POD #4 S/P Evacuation of epidural hematoma, s/p cervical laminectomy and fusion 09/25/21 Pain controlled with medication Objective Objective Vital Signs Date Time Temp Pulse Resp B/P (MAP) Pulse Ox O2 Delivery O2 Flow Rate FiO2 09/30/21 08:15 12 95 Room Air 09/30/21 08:12 81 119/65 09/30/21 04:00 99.0 99.0 09/29/21 17:22 2.0 Intake and Output 09/30/21 07:00 Intake Total 4545.7 ml Output Total 5000 ml Balance -454.3 ml Intake Oral 1320 ml IV Total 3225.7 ml Output Urine Total 5000 ml # Bowel Movements 1 Physical Exam General: Alert, Oriented X3, Cooperative Neuro: Normal speech, Other (sensation improved in upper and lower extremites, moves upper extremities with 3/5 strength, hand grasps slightly stronger- no significant change from yesterday) Skin: Other (dressing C,D,I) Plan Plan of Care keep in ICU SCDs D/W RN and sister Comment Review of Relevant I have reviewed the following items michelle (where applicable) has been applied. Labs Laboratory Tests Test 09/29/21 03:25 09/29/21 16:13 09/30/21 03:15 White Blood Count 12.5 x10^3/uL (4.0-11.0) 13.2 x10^3/uL (4.0-11.0) Red Blood Count 2.87 x10^6/uL (4.30-5.70) 2.99 x10^6/uL (4.30-5.70) Hemoglobin 8.2 g/dL (13.0-17.5) 8.5 g/dL (13.0-17.5) Hematocrit 24.4 % (39.0-53.0) 25.7 % (39.0-53.0) Mean Corpuscular Volume 85 fL (79-100) 86 fL (79-100) Mean Corpuscular Hemoglobin 28 pg (25-35) 29 pg (25-35) Mean Corpuscular Hemoglobin Concent 34 g/dL (31-37) 33 g/dL (31-37) Red Cell Distribution Width 13.5 % (11.5-14.5) 13.9 % (11.5-14.5) Platelet Count 145 x10^3/uL (140-400) 159 x10^3/uL (140-400) Neutrophils (%) (Auto) 62 % (31-73) 52 % (31-73) Lymphocytes (%) (Auto) 26 % (24-48) 33 % (24-48) Monocytes (%) (Auto) 11 % (0-9) 10 % (0-9) Eosinophils (%) (Auto) 1 % (0-3) 4 % (0-3) Basophils (%) (Auto) 0 % (0-3) 0 % (0-3) Neutrophils # (Auto) 7.8 x10^3/uL (1.8-7.7) 6.9 x10^3/uL (1.8-7.7) Lymphocytes # (Auto) 3.2 x10^3/uL (1.0-4.8) 4.4 x10^3/uL (1.0-4.8) Monocytes # (Auto) 1.4 x10^3/uL (0.0-1.1) 1.4 x10^3/uL (0.0-1.1) Eosinophils # (Auto) 0.1 x10^3/uL (0.0-0.7) 0.5 x10^3/uL (0.0-0.7) Basophils # (Auto) 0.0 x10^3/uL (0.0-0.2) 0.0 x10^3/uL (0.0-0.2) Sodium Level 139 mmol/L (136-145) 142 mmol/L (136-145) Potassium Level 3.9 mmol/L (3.5-5.1) 3.8 mmol/L (3.5-5.1) Chloride Level 103 mmol/L (98-107) 106 mmol/L (98-107) Carbon Dioxide Level 29 mmol/L (21-32) 28 mmol/L (21-32) Anion Gap 7 (6-14) 8 (6-14) Blood Urea Nitrogen 22 mg/dL (8-26) 20 mg/dL (8-26) Creatinine 0.7 mg/dL (0.7-1.3) 0.8 mg/dL (0.7-1.3) Estimated GFR (Cockcroft-Gault) 138.7 118.9 Glucose Level 178 mg/dL (70-99) 177 mg/dL (70-99) Calcium Level 7.5 mg/dL (8.5-10.1) 7.5 mg/dL (8.5-10.1) Glucose (Fingerstick) 133 mg/dL (70-99) Laboratory Tests Test 09/29/21 16:13 09/30/21 03:15 Glucose (Fingerstick) 133 mg/dL (70-99) White Blood Count 13.2 x10^3/uL (4.0-11.0) Red Blood Count 2.99 x10^6/uL (4.30-5.70) Hemoglobin 8.5 g/dL (13.0-17.5) Hematocrit 25.7 % (39.0-53.0) Mean Corpuscular Volume 86 fL (79-100) Mean Corpuscular Hemoglobin 29 pg (25-35) Mean Corpuscular Hemoglobin Concent 33 g/dL (31-37) Red Cell Distribution Width 13.9 % (11.5-14.5) Platelet Count 159 x10^3/uL (140-400) Neutrophils (%) (Auto) 52 % (31-73) Lymphocytes (%) (Auto) 33 % (24-48) Monocytes (%) (Auto) 10 % (0-9) Eosinophils (%) (Auto) 4 % (0-3) Basophils (%) (Auto) 0 % (0-3) Neutrophils # (Auto) 6.9 x10^3/uL (1.8-7.7) Lymphocytes # (Auto) 4.4 x10^3/uL (1.0-4.8) Monocytes # (Auto) 1.4 x10^3/uL (0.0-1.1) Eosinophils # (Auto) 0.5 x10^3/uL (0.0-0.7) Basophils # (Auto) 0.0 x10^3/uL (0.0-0.2) Sodium Level 142 mmol/L (136-145) Potassium Level 3.8 mmol/L (3.5-5.1) Chloride Level 106 mmol/L (98-107) Carbon Dioxide Level 28 mmol/L (21-32) Anion Gap 8 (6-14) Blood Urea Nitrogen 20 mg/dL (8-26) Creatinine 0.8 mg/dL (0.7-1.3) Estimated GFR (Cockcroft-Gault) 118.9 Glucose Level 177 mg/dL (70-99) Calcium Level 7.5 mg/dL (8.5-10.1) Medications Current Medications Fentanyl Citrate (Fentanyl 2ml Vial) 25 mcg PRN Q5MIN PRN IVP MILD PAIN 1-3; Start 09/25/21 at 06:00; Stop 09/25/21 at 20:00; Status DC Fentanyl Citrate (Fentanyl 2ml Vial) 50 mcg PRN Q5MIN PRN IVP MODERATE PAIN 4-6 Last administered on 09/25/21at 13:48; Start 09/25/21 at 06:00; Stop 09/25/21 at 20:00; Status DC Morphine Sulfate (Morphine Sulfate) 1 mg PRN Q10MIN PRN IVP SEVERE PAIN 7-10 Last administered on 09/25/21at 14:21; Start 09/25/21 at 06:00; Stop 09/25/21 at 20:00; Status DC Ringer's Solution 1,000 ml @ 30 mls/hr Q24H IV Last administered on 09/25/21at 12:54; Start 09/25/21 at 06:00; Stop 09/25/21 at 17:59; Status DC Hydromorphone HCl (Dilaudid) 0.5 mg PRN Q10MIN PRN IVP SEVERE PAIN 7-10, 2nd CHOICE Last administered on 09/25/21at 16:53; Start 09/25/21 at 06:00; Stop 09/25/21 at 20:00; Status DC Prochlorperazine Edisylate (Compazine) 5 mg PACU PRN PRN IVP NAUSEA, MRX1; Start 09/25/21 at 06:00; Stop 09/25/21 at 20:00; Status DC Cefazolin Sodium 1 gm/Sodium Chloride 1,000 ml @ 1,000 mls/hr 1X ONCE IRR Last administered on 09/25/21at 10:14; Start 09/25/21 at 06:00; Stop 09/25/21 at 06:59; Status DC Cefazolin Sodium/ Dextrose 50 ml @ 100 mls/hr 1X PREOP PRN IV PRIOR TO PROCEDURE Last administered on 09/25/21at 09:30; Start 09/25/21 at 06:00; Stop 09/25/21 at 13:39; Status DC Insulin Human Lispro (HumaLOG VIAL for OP,RR ONLY) 0-10 units PRN Q1HR PRN SQ PER PROTOCOL Last administered on 09/25/21at 17:01; Start 09/25/21 at 07:00; Stop 09/25/21 at 18:00; Status DC Bupivacaine HCl/ Epinephrine Bitart (Sensorcain-Epi 0.5% Kit) 30 ml STK-MED ONCE INJ Last administered on 09/25/21at 10:14; Start 09/25/21 at 10:14; Stop 09/25/21 at 10:30; Status DC Ketorolac Tromethamine (Toradol Im) 60 mg STK-MED ONCE INJ Last administered on 09/25/21at 10:14; Start 09/25/21 at 10:14; Stop 09/25/21 at 10:30; Status DC Thrombin 20,000 unit STK-MED ONCE TP Last administered on 09/25/21at 10:14; Start 09/25/21 at 10:14; Stop 09/25/21 at 10:30; Status DC Gelatin (Gelfoam Size 100) 1 each STK-MED ONCE TP Last administered on 09/25/21at 10:14; Start 09/25/21 at 10:14; Stop 09/25/21 at 10:30; Status DC Acetaminophen (Tylenol) 650 mg PRN Q4HRS PRN PO TEMP OVER 100.4F OR MILD PAIN; Start 09/25/21 at 12:30 Aspirin (Aspirin Chewable) 81 mg DAILY PO Last administered on 09/26/21at 08:30; Start 09/26/21 at 09:00; Stop 09/28/21 at 17:19; Status DC Atorvastatin Calcium (Lipitor) 10 mg QHS PO Last administered on 09/29/21at 20:32; Start 09/25/21 at 21:00 Baclofen (Lioresal) 10 mg BID PO Last administered on 09/30/21at 08:12; Start 09/25/21 at 21:00 Diazepam (Valium) 5 mg TID PO Last administered on 09/30/21 08:14; Start 09/25/21 at 14:00 Docusate Sodium (Colace) 100 mg PRN BID PRN PO HARD STOOLS Last administered on 09/29/21 08:39; Start 09/25/21 at 12:30 Fluticasone Propionate (Flonase) 2 spray DAILY NS Last administered on 09/30/21 08:16; Start 09/26/21 at 09:00 Hydroxyzine HCl (Atarax) 25 mg PRN Q6HRS PRN PO itching Last administered on 09/29/21 21:00; Start 09/25/21 at 12:30 Lidocaine (Lidoderm) 1 patch QHS TP Last administered on 09/29/21 20:33; Start 09/25/21 at 20:00 Linagliptin (Tradjenta) 5 mg DAILY PO Last administered on 09/30/21 08:30; Start 09/25/21 at 13:00 Miconazole Nitrate (Monistat-Derm) 1 crispin TID TP Last administered on 09/30/21 08:15; Start 09/25/21 at 21:00 Midodrine (Proamatine) 2.5 mg PRN 1X PRN PO hypotension Last administered on 09/27/21 08:56; Start 09/25/21 at 12:30 Oxycodone HCl (Roxicodone) 10 mg PRN Q6HRS PRN PO MODERATE-SEVERE PAIN Last administered on 09/30/21 08:14; Start 09/25/21 at 12:30 Diclofenac Sodium (Voltaren) 1 crispin PRN TID PRN TP PAIN CONTROL; Start 09/25/21 at 13:15; Stop 09/25/21 at 18:37; Status DC Insulin Glargine (Lantus Syringe) 4 unit QHS SQ Last administered on 09/29/21 20:36; Start 09/25/21 at 21:00 Losartan Potassium (Cozaar) 25 mg DAILY08 PO Last administered on 09/30/21 08:12; Start 09/26/21 at 08:00 Polyethylene Glycol (miraLAX PACKET) 17 gm DAILY PO Last administered on 09/30/21 08:15; Start 09/25/21 at 14:00 Pregabalin (Lyrica) 100 mg BID PO Last administered on 09/30/21at 08:13; Start 09/25/21 at 21:00 Acetaminophen (Tylenol) 650 mg PRN Q6HRS PRN PO MILD PAIN / TEMP > 100.3'F; Start 09/25/21 at 12:30; Status Cancel Al Hydroxide/Mg Hydroxide (Mylanta Plus Xs) 30 ml PRN Q3HRS PRN PO HEARTBURN / GAS; Start 09/25/21 at 12:30 Calcium Carbonate/ Glycine (Tums) 500 mg PRN Q3HRS PRN PO INDIGESTION; Start 09/25/21 at 12:30 Diphenhydramine HCl (Benadryl) 25 mg PRN Q6HRS PRN PO ITCHING; Start 09/25/21 at 12:30 Naloxone HCl (Narcan) 0.1 mg PRN Q2MIN PRN IV SEE COMMENTS; Start 09/25/21 at 12:30 Sodium Chloride (Normal Saline Flush) 3 ml QSHIFT PRN IV AFTER MEDS AND BLOOD DRAWS; Start 09/25/21 at 12:30 Potassium Chloride/Sodium Chloride 1,000 ml @ 75 mls/hr [id number] IV Last administered on 09/26/21at 07:00; Start 09/25/21 at 12:30; Stop 09/26/21 at 17:33; Status DC Magnesium Hydroxide (Milk Of Magnesia) 2,400 mg PRN Q12HR PRN PO CONSTIPATION; Start 09/25/21 at 12:30 Cefazolin Sodium (Ancef) 1 gm Q8H IVP Last administered on 09/26/21at 04:14; Start 09/25/21 at 18:00; Stop 09/26/21 at 10:01; Status DC Fentanyl Citrate (Fentanyl 2ml Vial) 50 mcg PRN Q2HR PRN IVP MODERATE TO SEVERE PAIN Last administered on 09/30/21at 08:15; Start 09/25/21 at 12:30 Dextrose (Dextrose 50%-Water Syringe) 12.5 gm PRN Q15MIN PRN IV SEE COMMENTS; Start 09/25/21 at 12:30 Dextrose (Iv Dextrose 5%) 250 ml PRN Q15MIN PRN IV SEE COMMENTS; Start 09/25/21 at 12:30 Gelatin (Gelfoam Size 100) 1 each STK-MED ONCE .ROUTE ; Start 09/25/21 at 06:37; Stop 09/25/21 at 14:55; Status DC Bupivacaine HCl/ Epinephrine Bitart (Sensorcain-Epi 0.5% Kit) 30 ml STK-MED ONCE .ROUTE ; Start 09/25/21 at 06:37; Stop 09/25/21 at 14:55; Status DC Ketorolac Tromethamine (Toradol Im) 60 mg STK-MED ONCE .ROUTE ; Start 09/25/21 at 06:37; Stop 09/25/21 at 14:55; Status DC Thrombin 20,000 unit STK-MED ONCE TP ; Start 09/25/21 at 06:38; Stop 09/25/21 at 14:55; Status DC Propofol (Diprivan) 200 mg STK-MED ONCE IV ; Start 09/25/21 at 05:54; Stop 09/25/21 at 14:57; Status DC Lidocaine HCl (Lidocaine Pf 2% Vial) 5 ml STK-MED ONCE .ROUTE ; Start 09/25/21 at 05:54; Stop 09/25/21 at 14:57; Status DC Ondansetron HCl (Zofran) 4 mg STK-MED ONCE .ROUTE ; Start 09/25/21 at 05:54; Stop 09/25/21 at 14:57; Status DC Phenylephrine HCl (Ramone-Synephrine Inj) 10 mg STK-MED ONCE .ROUTE ; Start 09/25/21 at 05:54; Stop 09/25/21 at 14:57; Status DC Propofol 50 ml @ As Directed STK-MED ONCE IV ; Start 09/25/21 at 05:54; Stop 09/25/21 at 14:57; Status DC Dexamethasone Sodium Phosphate (Decadron) 4 mg STK-MED ONCE .ROUTE ; Start 09/25/21 at 05:54; Stop 09/25/21 at 14:57; Status DC Fentanyl Citrate (Fentanyl 2ml Vial) 100 mcg STK-MED ONCE .ROUTE ; Start 09/25/21 at 05:54; Stop 09/25/21 at 14:57; Status DC Succinylcholine Chloride (Anectine) 200 mg STK-MED ONCE .ROUTE ; Start 09/25/21 at 05:54; Stop 09/25/21 at 14:57; Status DC Remifentanil HCl (Ultiva) 1 mg STK-MED ONCE IV ; Start 09/25/21 at 05:54; Stop 09/25/21 at 14:57; Status DC Glycopyrrolate (Robinul) 1 mg STK-MED ONCE .ROUTE ; Start 09/25/21 at 07:11; Stop 09/25/21 at 15:01; Status DC Propofol 50 ml @ As Directed STK-MED ONCE IV ; Start 09/25/21 at 08:07; Stop 09/25/21 at 15:02; Status DC Ketamine HCl (Ketamine) 50 mg STK-MED ONCE .ROUTE ; Start 09/25/21 at 08:15; Stop 09/25/21 at 15:02; Status DC Hydromorphone HCl (Dilaudid) 2 mg STK-MED ONCE .ROUTE ; Start 09/25/21 at 10:44; Stop 09/25/21 at 15:03; Status DC Fentanyl Citrate (Fentanyl 2ml Vial) 100 mcg STK-MED ONCE .ROUTE ; Start 09/25/21 at 13:26; Stop 09/25/21 at 15:04; Status DC Morphine Sulfate (Morphine Sulfate) 2 mg STK-MED ONCE .ROUTE ; Start 09/25/21 at 14:04; Stop 09/25/21 at 15:05; Status DC Hydromorphone HCl (Dilaudid) 2 mg STK-MED ONCE .ROUTE ; Start 09/25/21 at 14:54; Stop 09/25/21 at 15:06; Status DC Menthol/Methyl Salicylate ([place] Greaseless Cream) 1 crispin PRN Q30MIN PRN TP MUSCLE PAIN Last administered on 09/30/21at 08:15; Start 09/25/21 at 18:45 Mupirocin (Bactroban) 1 crispin BID NS Last administered on 09/30/21at 08:16; Start 09/26/21 at 09:00 Dexamethasone Sodium Phosphate (Decadron) 10 mg 1X ONCE IVP Last administered on 09/26/21at 07:31; Start 09/26/21 at 07:30; Stop 09/26/21 at 07:31; Status DC Cefazolin Sodium 1 gm/Sodium Chloride 1,000 ml @ 1,000 mls/hr 1X ONCE IRR Last administered on 09/26/21at 11:52; Start 09/26/21 at 10:30; Stop 09/26/21 at 11:29; Status DC Cefazolin Sodium (Ancef) 1 gm STK-MED ONCE IVP ; Start 09/26/21 at 10:05; Stop 09/26/21 at 10:06; Status DC Lidocaine HCl (Lidocaine Pf 2% Vial) 5 ml STK-MED ONCE .ROUTE ; Start 09/26/21 at 10:18; Stop 09/26/21 at 10:18; Status DC Ondansetron HCl (Zofran) 4 mg STK-MED ONCE .ROUTE ; Start 09/26/21 at 10:18; Stop 09/26/21 at 10:18; Status DC Propofol (Diprivan) 200 mg STK-MED ONCE IV ; Start 09/26/21 at 10:18; Stop 09/26/21 at 10:19; Status DC Dexamethasone Sodium Phosphate (Decadron) 4 mg STK-MED ONCE .ROUTE ; Start 09/26/21 at 10:18; Stop 09/26/21 at 10:19; Status DC Sevoflurane (Ultane) 30 ml STK-MED ONCE IH ; Start 09/26/21 at 10:18; Stop 09/26/21 at 10:19; Status DC Fentanyl Citrate (Fentanyl 2ml Vial) 100 mcg STK-MED ONCE .ROUTE ; Start 09/26/21 at 10:19; Stop 09/26/21 at 10:19; Status DC Rocuronium [place] (Zemuron) 50 mg STK-MED ONCE .ROUTE ; Start 09/26/21 at 10:19; Stop 09/26/21 at 10:19; Status DC Insulin Human Lispro (HumaLOG VIAL for OP,RR ONLY) 0-10 units PRN Q1HR PRN SQ PER PROTOCOL Last administered on 09/26/21at 15:11; Start 09/26/21 at 10:30; Stop 09/26/21 at 18:00; Status DC Sugammadex Sodium (Bridion) 200 mg 1X ONCE IVP Last administered on 09/26/21at 10:30; Start 09/26/21 at 10:30; Stop 09/26/21 at 10:31; Status DC Gelatin (Gelfoam Size 100) 1 each STK-MED ONCE .ROUTE Last administered on 09/26/21at 11:52; Start 09/26/21 at 10:30; Stop 09/26/21 at 10:30; Status DC Bupivacaine HCl/ Epinephrine Bitart (Sensorcain-Epi 0.5% Kit) 30 ml STK-MED ONCE .ROUTE ; Start 09/26/21 at 10:30; Stop 09/26/21 at 10:30; Status DC Ketorolac Tromethamine (Toradol Im) 60 mg STK-MED ONCE .ROUTE ; Start 09/26/21 at 10:30; Stop 09/26/21 at 10:30; Status DC Thrombin 20,000 unit STK-MED ONCE TP Last administered on 09/26/21at 11:52; Start 09/26/21 at 10:30; Stop 09/26/21 at 10:31; Status DC Cefazolin Sodium/ Dextrose 50 ml @ As Directed STK-MED ONCE IV ; Start 09/26/21 at 10:32; Stop 09/26/21 at 10:32; Status DC Vancomycin HCl 1 gm/Sodium Chloride 250 ml @ 250 mls/hr PREOP PRN PRN IV PRIOR TO PROCEDURE; Start 09/26/21 at 10:45; Stop 09/26/21 at 14:00; Status DC Cefazolin Sodium/ Dextrose 50 ml @ 100 mls/hr 1X ONCE IV Last administered on 09/26/21at 11:00; Start 09/26/21 at 11:00; Stop 09/26/21 at 11:29; Status DC Dexamethasone Sodium Phosphate (Decadron) 4 mg STK-MED ONCE .ROUTE ; Start 09/26/21 at 11:04; Stop 09/26/21 at 11:04; Status DC Glycopyrrolate (Robinul) 1 mg STK-MED ONCE .ROUTE ; Start 09/26/21 at 11:04; Stop 09/26/21 at 11:04; Status DC Hydromorphone HCl (Dilaudid) 2 mg STK-MED ONCE .ROUTE ; Start 09/26/21 at 11:56; Stop 09/26/21 at 11:56; Status DC Fentanyl Citrate (Fentanyl 2ml Vial) 25 mcg PRN Q5MIN PRN IVP MILD PAIN 1-3; Start 09/26/21 at 14:30; Stop 09/26/21 at 18:15; Status DC Fentanyl Citrate (Fentanyl 2ml Vial) 50 mcg PRN Q5MIN PRN IVP MODERATE PAIN 4- 6; Start 09/26/21 at 14:30; Stop 09/26/21 at 18:15; Status DC Morphine Sulfate (Morphine Sulfate) 1 mg PRN Q10MIN PRN IVP SEVERE PAIN 7-10; Start 09/26/21 at 14:30; Stop 09/26/21 at 18:15; Status DC Ringer's Solution 1,000 ml @ 30 mls/hr Q24H IV Last administered on 09/26/21at 15:18; Start 09/26/21 at 14:30; Stop 09/26/21 at 21:00; Status DC Hydromorphone HCl (Dilaudid) 0.5 mg PRN Q10MIN PRN IVP SEVERE PAIN 7-10, 2nd CHOICE; Start 09/26/21 at 14:30; Stop 09/26/21 at 18:15; Status DC Prochlorperazine Edisylate (Compazine) 5 mg PACU PRN PRN IVP NAUSEA, MRX1; Start 09/26/21 at 14:30; Stop 09/26/21 at 21:00; Status DC Fentanyl Citrate (Fentanyl 2ml Vial) 100 mcg STK-MED ONCE .ROUTE ; Start 09/26/21 at 14:23; Stop 09/26/21 at 14:25; Status DC Fentanyl Citrate (Fentanyl 2ml Vial) 25 mcg PRN Q5MIN PRN IVP MILD PAIN 1-3; Start 09/26/21 at 14:30; Stop 09/27/21 at 14:29; Status UNV Fentanyl Citrate (Fentanyl 2ml Vial) 50 mcg PRN Q5MIN PRN IVP MODERATE PAIN 4- 6; Start 09/26/21 at 14:30; Stop 09/27/21 at 14:29; Status UNV Morphine Sulfate (Morphine Sulfate) 1 mg PRN Q10MIN PRN IVP SEVERE PAIN 7-10; Start 09/26/21 at 14:30; Stop 09/27/21 at 14:29; Status UNV Ringer's Solution 1,000 ml @ 30 mls/hr Q24H IV ; Start 09/26/21 at 14:30; Stop 09/27/21 at 02:29; Status UNV Hydromorphone HCl (Dilaudid) 0.5 mg PRN Q10MIN PRN IVP SEVERE PAIN 7-10, 2nd CHOICE; Start 09/26/21 at 14:30; Stop 09/27/21 at 14:29; Status UNV Prochlorperazine Edisylate (Compazine) 5 mg PACU PRN PRN IVP NAUSEA, MRX1; Start 09/26/21 at 14:30; Stop 09/27/21 at 14:29; Status UNV Dexamethasone Sodium Phosphate (Decadron) 4 mg Q6HRS IVP Last administered on 09/28/21at 05:06; Start 09/26/21 at 18:00; Stop 09/28/21 at 06:00; Status DC Sodium Chloride 1,000 ml @ 100 mls/hr Q10H IV Last administered on 09/30/21at 05:35; Start 09/26/21 at 17:30 Cefazolin Sodium (Ancef) 1 gm Q8HRS IVP ; Start 09/27/21 at 06:00; Stop 09/27/21 at 05:47; Status DC Vancomycin HCl 1 gm/Sodium Chloride 250 ml @ 166.667 mls/hr 1X ONCE IV Last administered on 09/27/21at 06:27; Start 09/27/21 at 06:00; Stop 09/27/21 at 07:29; Status DC Gadoterate Meglumine (Clariscan) 19 ml 1X ONCE IVP Last administered on 09/29/21at 10:32; Start 09/29/21 at 08:15; Stop 09/29/21 at 08:17; Status DC Bisacodyl (Dulcolax Supp) 10 mg PRN DAILY PRN [place] CONSTIPATION; Start 09/29/21 at 14:15 Lactulose (Lactulose) 20 gm PRN DAILY PRN PO CONSTIPATION Last administered on 09/29/21at 14:37; Start 09/29/21 at 14:30 Active Scripts Active Dok (Docusate Sodium) 100 Mg Capsule 100 Mg PO PRN BID PRN 30 Days Tylenol (Acetaminophen) 325 Mg Tablet 650 Mg PO PRN Q4HRS PRN 30 Days Valium (Diazepam) 5 Mg Tablet 5 Mg PO TID Atorvastatin Calcium 10 Mg Tablet 10 Mg PO QHS Reported Midodrine Hcl 2.5 Mg Tablet 2.5 Mg PO PRN 1X PRN Aspirin 81 Mg Tab.chew 81 Mg PO DAILY Baclofen 10 Mg Tablet 10 Mg PO BID Lyrica (Pregabalin) 100 Mg Capsule 100 Mg PO BID 30 Days Polyethylene Glycol 3350 2,500 Gm Powder 17 Gm PO DAILY 30 Days Oxycodone HCl 5 Mg Tablet 10 Mg PO PRN Q6HRS PRN Micatin (Miconazole Nitrate) 14 Gm Cream..g. 1 [place] TP TID Tradjenta (Linagliptin) 5 Mg Tablet 5 Mg PO DAILY Lidocaine PATCH (Lidocaine) 1 Each Adh..patch 1 Each TP DAILY REMOVE AFTER 12 HOURS Levemir (Insulin Detemir) 100 Unit/1 Ml Vial 4 Unit SQ HS Hydroxyzine Hcl 25 Mg Tablet 25 Mg PO PRN Q6HRS PRN Fluticasone Propionate Nasal [place] (Fluticasone Propionate) 16 Gm [place].susp 2 [place] NS DAILY Diclofenac Sodium 100 Gm Gel..gram. 100 Gm TP PRN TID PRN Losartan Potassium 100 Mg Tablet 25 Tab PO DAILY08 Vitals/I & O Vital Sign - Last 24 Hours 09/29/21 09/29/21 09/29/21 09/29/21 11:00 12:00 12:22 12:52 Temp 98.6 98.6 Pulse 68 66 Resp 18 18 18 18 B/P (MAP) 126/71 (89) 145/75 (98) Pulse Ox 100 97 100 100 O2 Delivery Nasal Cannula Nasal Cannula Nasal Cannula Nasal Cannula O2 Flow Rate 2.0 2.0 2.0 2.0 09/29/21 09/29/21 09/29/21 09/29/21 13:00 14:00 14:24 14:54 Pulse 72 70 Resp 18 18 17 19 B/P (MAP) 152/74 (100) 158/87 (110) Pulse Ox 100 100 100 100 O2 Delivery Nasal Cannula Nasal Cannula Nasal Cannula Nasal Cannula O2 Flow Rate 2.0 2.0 2.0 2.0 09/29/21 09/29/21 09/29/21 09/29/21 15:00 16:00 16:52 17:00 Temp 98.5 98.5 Pulse 68 68 70 Resp 18 16 14 17 B/P (MAP) 127/68 (87) 139/69 (92) 141/65 (90) Pulse Ox 100 96 96 98 O2 Delivery Nasal Cannula Nasal Cannula Room Air Nasal Cannula O2 Flow Rate 2.0 2.0 2.0 09/29/21 09/29/21 09/29/21 09/29/21 17:22 18:00 18:42 19:00 Pulse 72 78 Resp 17 17 18 15 B/P (MAP) 149/75 (99) 131/66 (87) Pulse Ox 96 95 95 94 O2 Delivery Nasal Cannula Room Air Room Air Room Air O2 Flow Rate 2.0 09/29/21 09/29/21 09/29/21 09/29/21 19:12 20:00 20:00 20:34 Temp 98.7 98.7 Pulse 76 Resp 15 12 20 B/P (MAP) 109/54 (72) Pulse Ox 95 95 96 O2 Delivery Room Air Room Air Room Air Room Air 09/29/21 09/29/21 09/29/21 09/29/21 21:00 21:04 22:00 23:00 Pulse 86 82 76 Resp 14 18 16 14 B/P (MAP) 101/65 (77) 97/56 (70) 104/57 (73) Pulse Ox 95 95 96 96 O2 Delivery Room Air Room Air Room Air Room Air 09/29/21 09/29/21 09/30/21 09/30/21 23:01 23:31 00:00 01:00 Temp 99.0 99.0 Pulse 78 80 Resp 14 18 12 12 B/P (MAP) 90/50 (63) 95/57 (70) Pulse Ox 96 95 96 96 O2 Delivery Room Air Room Air Room Air Room Air 09/30/21 09/30/21 09/30/21 09/30/21 01:39 02:00 02:09 03:00 Pulse 78 74 Resp 12 11 12 12 B/P (MAP) 93/51 (65) 92/50 (64) Pulse Ox 95 95 95 96 O2 Delivery Room Air Room Air Room Air Room Air 09/30/21 09/30/21 09/30/21 09/30/21 04:00 05:00 06:00 07:00 Temp 99.0 99.0 Pulse 78 80 77 79 Resp 12 10 10 10 B/P (MAP) 96/51 (66) 109/52 (71) 101/50 (67) 104/51 (68) Pulse Ox 95 95 96 96 O2 Delivery Room Air Room Air Room Air Room Air 09/30/21 09/30/21 09/30/21 08:12 08:14 08:15 Pulse 81 Resp 12 12 B/P (MAP) 119/65 Pulse Ox 95 95 O2 Delivery Room Air Room Air Intake and Output 09/29/21 09/29/21 09/30/21 15:00 23:00 07:00 Intake Total 1000 ml 2420 ml 1125.7 ml Output Total 3400 ml 600 ml 1000 ml Balance -2400 ml 1820 ml 125.7 ml Justifications for Admission Other Justification uncontrolled diabetes TODD RIVERA APRN Sep 30, 2021 10:07
--- NOTE | 2021-09-30 10:22 | PDOC ---
PROGRESS NOTES Date of Service DATE: 09/30/21 TIME: 10:19 Subjective Subjective No new complaints. Nursing reports of low grade fever this AM. Objective Objective Vital Signs Date Time Temp Pulse Resp B/P (MAP) Pulse Ox O2 Delivery O2 Flow Rate FiO2 09/30/21 08:44 12 94 Room Air 09/30/21 08:12 81 119/65 09/30/21 04:00 99.0 99.0 09/29/21 17:22 2.0 Intake and Output 09/30/21 07:00 Intake Total 4545.7 ml Output Total 5000 ml Balance -454.3 ml Intake Oral 1320 ml IV Total 3225.7 ml Output Urine Total 5000 ml # Bowel Movements 1 Physical Exam Physical Exam He is alert,supine in bed and no change with his neurological status and apparently he received steroids initially post op period. Plan Plan of Care To continue present care efforts as tolerated. Comment Review of Relevant I have reviewed the following items michelle (where applicable) has been applied. Labs Laboratory Tests Test 09/29/21 03:25 09/29/21 16:13 09/30/21 03:15 White Blood Count 12.5 x10^3/uL (4.0-11.0) 13.2 x10^3/uL (4.0-11.0) Red Blood Count 2.87 x10^6/uL (4.30-5.70) 2.99 x10^6/uL (4.30-5.70) Hemoglobin 8.2 g/dL (13.0-17.5) 8.5 g/dL (13.0-17.5) Hematocrit 24.4 % (39.0-53.0) 25.7 % (39.0-53.0) Mean Corpuscular Volume 85 fL (79-100) 86 fL (79-100) Mean Corpuscular Hemoglobin 28 pg (25-35) 29 pg (25-35) Mean Corpuscular Hemoglobin Concent 34 g/dL (31-37) 33 g/dL (31-37) Red Cell Distribution Width 13.5 % (11.5-14.5) 13.9 % (11.5-14.5) Platelet Count 145 x10^3/uL (140-400) 159 x10^3/uL (140-400) Neutrophils (%) (Auto) 62 % (31-73) 52 % (31-73) Lymphocytes (%) (Auto) 26 % (24-48) 33 % (24-48) Monocytes (%) (Auto) 11 % (0-9) 10 % (0-9) Eosinophils (%) (Auto) 1 % (0-3) 4 % (0-3) Basophils (%) (Auto) 0 % (0-3) 0 % (0-3) Neutrophils # (Auto) 7.8 x10^3/uL (1.8-7.7) 6.9 x10^3/uL (1.8-7.7) Lymphocytes # (Auto) 3.2 x10^3/uL (1.0-4.8) 4.4 x10^3/uL (1.0-4.8) Monocytes # (Auto) 1.4 x10^3/uL (0.0-1.1) 1.4 x10^3/uL (0.0-1.1) Eosinophils # (Auto) 0.1 x10^3/uL (0.0-0.7) 0.5 x10^3/uL (0.0-0.7) Basophils # (Auto) 0.0 x10^3/uL (0.0-0.2) 0.0 x10^3/uL (0.0-0.2) Sodium Level 139 mmol/L (136-145) 142 mmol/L (136-145) Potassium Level 3.9 mmol/L (3.5-5.1) 3.8 mmol/L (3.5-5.1) Chloride Level 103 mmol/L (98-107) 106 mmol/L (98-107) Carbon Dioxide Level 29 mmol/L (21-32) 28 mmol/L (21-32) Anion Gap 7 (6-14) 8 (6-14) Blood Urea Nitrogen 22 mg/dL (8-26) 20 mg/dL (8-26) Creatinine 0.7 mg/dL (0.7-1.3) 0.8 mg/dL (0.7-1.3) Estimated GFR (Cockcroft-Gault) 138.7 118.9 Glucose Level 178 mg/dL (70-99) 177 mg/dL (70-99) Calcium Level 7.5 mg/dL (8.5-10.1) 7.5 mg/dL (8.5-10.1) Glucose (Fingerstick) 133 mg/dL (70-99) Laboratory Tests Test 09/29/21 16:13 09/30/21 03:15 Glucose (Fingerstick) 133 mg/dL (70-99) White Blood Count 13.2 x10^3/uL (4.0-11.0) Red Blood Count 2.99 x10^6/uL (4.30-5.70) Hemoglobin 8.5 g/dL (13.0-17.5) Hematocrit 25.7 % (39.0-53.0) Mean Corpuscular Volume 86 fL (79-100) Mean Corpuscular Hemoglobin 29 pg (25-35) Mean Corpuscular Hemoglobin Concent 33 g/dL (31-37) Red Cell Distribution Width 13.9 % (11.5-14.5) Platelet Count 159 x10^3/uL (140-400) Neutrophils (%) (Auto) 52 % (31-73) Lymphocytes (%) (Auto) 33 % (24-48) Monocytes (%) (Auto) 10 % (0-9) Eosinophils (%) (Auto) 4 % (0-3) Basophils (%) (Auto) 0 % (0-3) Neutrophils # (Auto) 6.9 x10^3/uL (1.8-7.7) Lymphocytes # (Auto) 4.4 x10^3/uL (1.0-4.8) Monocytes # (Auto) 1.4 x10^3/uL (0.0-1.1) Eosinophils # (Auto) 0.5 x10^3/uL (0.0-0.7) Basophils # (Auto) 0.0 x10^3/uL (0.0-0.2) Sodium Level 142 mmol/L (136-145) Potassium Level 3.8 mmol/L (3.5-5.1) Chloride Level 106 mmol/L (98-107) Carbon Dioxide Level 28 mmol/L (21-32) Anion Gap 8 (6-14) Blood Urea Nitrogen 20 mg/dL (8-26) Creatinine 0.8 mg/dL (0.7-1.3) Estimated GFR (Cockcroft-Gault) 118.9 Glucose Level 177 mg/dL (70-99) Calcium Level 7.5 mg/dL (8.5-10.1) Medications Current Medications Fentanyl Citrate (Fentanyl 2ml Vial) 25 mcg PRN Q5MIN PRN IVP MILD PAIN 1-3; Start 09/25/21 at 06:00; Stop 09/25/21 at 20:00; Status DC Fentanyl Citrate (Fentanyl 2ml Vial) 50 mcg PRN Q5MIN PRN IVP MODERATE PAIN 4-6 Last administered on 09/25/21at 13:48; Start 09/25/21 at 06:00; Stop 09/25/21 at 20:00; Status DC Morphine Sulfate (Morphine Sulfate) 1 mg PRN Q10MIN PRN IVP SEVERE PAIN 7-10 Last administered on 09/25/21at 14:21; Start 09/25/21 at 06:00; Stop 09/25/21 at 20:00; Status DC Ringer's Solution 1,000 ml @ 30 mls/hr Q24H IV Last administered on 09/25/21at 12:54; Start 09/25/21 at 06:00; Stop 09/25/21 at 17:59; Status DC Hydromorphone HCl (Dilaudid) 0.5 mg PRN Q10MIN PRN IVP SEVERE PAIN 7-10, 2nd CHOICE Last administered on 09/25/21at 16:53; Start 09/25/21 at 06:00; Stop 09/25/21 at 20:00; Status DC Prochlorperazine Edisylate (Compazine) 5 mg PACU PRN PRN IVP NAUSEA, MRX1; Start 09/25/21 at 06:00; Stop 09/25/21 at 20:00; Status DC Cefazolin Sodium 1 gm/Sodium Chloride 1,000 ml @ 1,000 mls/hr 1X ONCE IRR Last administered on 09/25/21at 10:14; Start 09/25/21 at 06:00; Stop 09/25/21 at 06:59; Status DC Cefazolin Sodium/ Dextrose 50 ml @ 100 mls/hr 1X PREOP PRN IV PRIOR TO PROCEDURE Last administered on 09/25/21at 09:30; Start 09/25/21 at 06:00; Stop 09/25/21 at 13:39; Status DC Insulin Human Lispro (HumaLOG VIAL for OP,RR ONLY) 0-10 units PRN Q1HR PRN SQ PER PROTOCOL Last administered on 09/25/21at 17:01; Start 09/25/21 at 07:00; Stop 09/25/21 at 18:00; Status DC Bupivacaine HCl/ Epinephrine Bitart (Sensorcain-Epi 0.5% Kit) 30 ml STK-MED ONCE INJ Last administered on 09/25/21at 10:14; Start 09/25/21 at 10:14; Stop 09/25/21 at 10:30; Status DC Ketorolac Tromethamine (Toradol Im) 60 mg STK-MED ONCE INJ Last administered on 09/25/21at 10:14; Start 09/25/21 at 10:14; Stop 09/25/21 at 10:30; Status DC Thrombin 20,000 unit STK-MED ONCE TP Last administered on 09/25/21at 10:14; Start 09/25/21 at 10:14; Stop 09/25/21 at 10:30; Status DC Gelatin (Gelfoam Size 100) 1 each STK-MED ONCE TP Last administered on 09/25/21at 10:14; Start 09/25/21 at 10:14; Stop 09/25/21 at 10:30; Status DC Acetaminophen (Tylenol) 650 mg PRN Q4HRS PRN PO TEMP OVER 100.4F OR MILD PAIN; Start 09/25/21 at 12:30 Aspirin (Aspirin Chewable) 81 mg DAILY PO Last administered on 09/26/21at 08:30; Start 09/26/21 at 09:00; Stop 09/28/21 at 17:19; Status DC Atorvastatin Calcium (Lipitor) 10 mg QHS PO Last administered on 09/29/21at 20:32; Start 09/25/21 at 21:00 Baclofen (Lioresal) 10 mg BID PO Last administered on 09/30/21at 08:12; Start 09/25/21 at 21:00 Diazepam (Valium) 5 mg TID PO Last administered on 09/30/21at 08:14; Start 09/25/21 at 14:00 Docusate Sodium (Colace) 100 mg PRN BID PRN PO HARD STOOLS Last administered on 09/29/21 08:39; Start 09/25/21 at 12:30 Fluticasone Propionate (Flonase) 2 spray DAILY NS Last administered on 08:16; Start 09/26/21 at 09:00 Hydroxyzine HCl (Atarax) 25 mg PRN Q6HRS PRN PO itching Last administered on 09/29/21 21:00; Start 09/25/21 at 12:30 Lidocaine (Lidoderm) 1 patch QHS TP Last administered on 09/29/21 20:33; Start 09/25/21 at 20:00 Linagliptin (Tradjenta) 5 mg DAILY PO Last administered on 09/30/21 08:30; Start 09/25/21 at 13:00 Miconazole Nitrate (Monistat-Derm) 1 crispin TID TP Last administered on 09/30/21 08:15; Start 09/25/21 at 21:00 Midodrine (Proamatine) 2.5 mg PRN 1X PRN PO hypotension Last administered on 09/27/21 08:56; Start 09/25/21 at 12:30 Oxycodone HCl (Roxicodone) 10 mg PRN Q6HRS PRN PO MODERATE-SEVERE PAIN Last administered on 09/30/21 08:14; Start 09/25/21 at 12:30 Diclofenac Sodium (Voltaren) 1 crispin PRN TID PRN TP PAIN CONTROL; Start 09/25/21 at 13:15; Stop 09/25/21 at 18:37; Status DC Insulin Glargine (Lantus Syringe) 4 unit QHS SQ Last administered on 09/29/21 20:36; Start 09/25/21 at 21:00 Losartan Potassium (Cozaar) 25 mg DAILY08 PO Last administered on 09/30/21 08:12; Start 09/26/21 at 08:00 Polyethylene Glycol (miraLAX PACKET) 17 gm DAILY PO Last administered on 09/30/21 08:15; Start 09/25/21 at 14:00 Pregabalin (Lyrica) 100 mg BID PO Last administered on 09/30/21 08:13; Start 09/25/21 at 21:00 Acetaminophen (Tylenol) 650 mg PRN Q6HRS PRN PO MILD PAIN / TEMP > 100.3'F; Start 09/25/21 at 12:30; Status Cancel Al Hydroxide/Mg Hydroxide (Mylanta Plus Xs) 30 ml PRN Q3HRS PRN PO HEARTBURN / GAS; Start 09/25/21 at 12:30 Calcium Carbonate/ Glycine (Tums) 500 mg PRN Q3HRS PRN PO INDIGESTION; Start 09/25/21 at 12:30 Diphenhydramine HCl (Benadryl) 25 mg PRN Q6HRS PRN PO ITCHING; Start 09/25/21 at 12:30 Naloxone HCl (Narcan) 0.1 mg PRN Q2MIN PRN IV SEE COMMENTS; Start 09/25/21 at 12:30 Sodium Chloride (Normal Saline Flush) 3 ml QSHIFT PRN IV AFTER MEDS AND BLOOD DRAWS; Start 09/25/21 at 12:30 Potassium Chloride/Sodium Chloride 1,000 ml @ 75 mls/hr [id number] IV Last administered on 09/26/21at 07:00; Start 09/25/21 at 12:30; Stop 09/26/21 at 17:33; Status DC Magnesium Hydroxide (Milk Of Magnesia) 2,400 mg PRN Q12HR PRN PO CONSTIPATION; Start 09/25/21 at 12:30 Cefazolin Sodium (Ancef) 1 gm Q8H IVP Last administered on 09/26/21at 04:14; Start 09/25/21 at 18:00; Stop 09/26/21 at 10:01; Status DC Fentanyl Citrate (Fentanyl 2ml Vial) 50 mcg PRN Q2HR PRN IVP MODERATE TO SEVERE PAIN Last administered on 09/30/21at 08:15; Start 09/25/21 at 12:30 Dextrose (Dextrose 50%-Water Syringe) 12.5 gm PRN Q15MIN PRN IV SEE COMMENTS; Start 09/25/21 at 12:30 Dextrose (Iv Dextrose 5%) 250 ml PRN Q15MIN PRN IV SEE COMMENTS; Start 09/25/21 at 12:30 Gelatin (Gelfoam Size 100) 1 each STK-MED ONCE .ROUTE ; Start 09/25/21 at 06:37; Stop 09/25/21 at 14:55; Status DC Bupivacaine HCl/ Epinephrine Bitart (Sensorcain-Epi 0.5% Kit) 30 ml STK-MED ONCE .ROUTE ; Start 09/25/21 at 06:37; Stop 09/25/21 at 14:55; Status DC Ketorolac Tromethamine (Toradol Im) 60 mg STK-MED ONCE .ROUTE ; Start 09/25/21 at 06:37; Stop 09/25/21 at 14:55; Status DC Thrombin 20,000 unit STK-MED ONCE TP ; Start 09/25/21 at 06:38; Stop 09/25/21 at 14:55; Status DC Propofol (Diprivan) 200 mg STK-MED ONCE IV ; Start 09/25/21 at 05:54; Stop 09/25/21 at 14:57; Status DC Lidocaine HCl (Lidocaine Pf 2% Vial) 5 ml STK-MED ONCE .ROUTE ; Start 09/25/21 at 05:54; Stop 09/25/21 at 14:57; Status DC Ondansetron HCl (Zofran) 4 mg STK-MED ONCE .ROUTE ; Start 09/25/21 at 05:54; Stop 09/25/21 at 14:57; Status DC Phenylephrine HCl (Ramone-Synephrine Inj) 10 mg STK-MED ONCE .ROUTE ; Start 09/25/21 at 05:54; Stop 09/25/21 at 14:57; Status DC Propofol 50 ml @ As Directed STK-MED ONCE IV ; Start 09/25/21 at 05:54; Stop 09/25/21 at 14:57; Status DC Dexamethasone Sodium Phosphate (Decadron) 4 mg STK-MED ONCE .ROUTE ; Start 09/25/21 at 05:54; Stop 09/25/21 at 14:57; Status DC Fentanyl Citrate (Fentanyl 2ml Vial) 100 mcg STK-MED ONCE .ROUTE ; Start 09/25/21 at 05:54; Stop 09/25/21 at 14:57; Status DC Succinylcholine Chloride (Anectine) 200 mg STK-MED ONCE .ROUTE ; Start 09/25/21 at 05:54; Stop 09/25/21 at 14:57; Status DC Remifentanil HCl (Ultiva) 1 mg STK-MED ONCE IV ; Start 09/25/21 at 05:54; Stop 09/25/21 at 14:57; Status DC Glycopyrrolate (Robinul) 1 mg STK-MED ONCE .ROUTE ; Start 09/25/21 at 07:11; Stop 09/25/21 at 15:01; Status DC Propofol 50 ml @ As Directed STK-MED ONCE IV ; Start 09/25/21 at 08:07; Stop 09/25/21 at 15:02; Status DC Ketamine HCl (Ketamine) 50 mg STK-MED ONCE .ROUTE ; Start 09/25/21 at 08:15; Stop 09/25/21 at 15:02; Status DC Hydromorphone HCl (Dilaudid) 2 mg STK-MED ONCE .ROUTE ; Start 09/25/21 at 10:44; Stop 09/25/21 at 15:03; Status DC Fentanyl Citrate (Fentanyl 2ml Vial) 100 mcg STK-MED ONCE .ROUTE ; Start 09/25/21 at 13:26; Stop 09/25/21 at 15:04; Status DC Morphine Sulfate (Morphine Sulfate) 2 mg STK-MED ONCE .ROUTE ; Start 09/25/21 at 14:04; Stop 09/25/21 at 15:05; Status DC Hydromorphone HCl (Dilaudid) 2 mg STK-MED ONCE .ROUTE ; Start 09/25/21 at 14:54; Stop 09/25/21 at 15:06; Status DC Menthol/Methyl Salicylate ([place] Greaseless Cream) 1 crispin PRN Q30MIN PRN TP MUSCLE PAIN Last administered on 09/30/21at 08:15; Start 09/25/21 at 18:45 Mupirocin (Bactroban) 1 crispin BID NS Last administered on 09/30/21at 08:16; Start 09/26/21 at 09:00 Dexamethasone Sodium Phosphate (Decadron) 10 mg 1X ONCE IVP Last administered on 09/26/21at 07:31; Start 09/26/21 at 07:30; Stop 09/26/21 at 07:31; Status DC Cefazolin Sodium 1 gm/Sodium Chloride 1,000 ml @ 1,000 mls/hr 1X ONCE IRR Last administered on 09/26/21at 11:52; Start 09/26/21 at 10:30; Stop 09/26/21 at 11:29; Status DC Cefazolin Sodium (Ancef) 1 gm STK-MED ONCE IVP ; Start 09/26/21 at 10:05; Stop 09/26/21 at 10:06; Status DC Lidocaine HCl (Lidocaine Pf 2% Vial) 5 ml STK-MED ONCE .ROUTE ; Start 09/26/21 at 10:18; Stop 09/26/21 at 10:18; Status DC Ondansetron HCl (Zofran) 4 mg STK-MED ONCE .ROUTE ; Start 09/26/21 at 10:18; Stop 09/26/21 at 10:18; Status DC Propofol (Diprivan) 200 mg STK-MED ONCE IV ; Start 09/26/21 at 10:18; Stop 09/26/21 at 10:19; Status DC Dexamethasone Sodium Phosphate (Decadron) 4 mg STK-MED ONCE .ROUTE ; Start 09/26/21 at 10:18; Stop 09/26/21 at 10:19; Status DC Sevoflurane (Ultane) 30 ml STK-MED ONCE IH ; Start 09/26/21 at 10:18; Stop 09/26/21 at 10:19; Status DC Fentanyl Citrate (Fentanyl 2ml Vial) 100 mcg STK-MED ONCE .ROUTE ; Start 09/26/21 at 10:19; Stop 09/26/21 at 10:19; Status DC Rocuronium [place] (Zemuron) 50 mg STK-MED ONCE .ROUTE ; Start 09/26/21 at 10:19; Stop 09/26/21 at 10:19; Status DC Insulin Human Lispro (HumaLOG VIAL for OP,RR ONLY) 0-10 units PRN Q1HR PRN SQ PER PROTOCOL Last administered on 09/26/21at 15:11; Start 09/26/21 at 10:30; Stop 09/26/21 at 18:00; Status DC Sugammadex Sodium (Bridion) 200 mg 1X ONCE IVP Last administered on 09/26/21at 10:30; Start 09/26/21 at 10:30; Stop 09/26/21 at 10:31; Status DC Gelatin (Gelfoam Size 100) 1 each STK-MED ONCE .ROUTE Last administered on 09/26/21at 11:52; Start 09/26/21 at 10:30; Stop 09/26/21 at 10:30; Status DC Bupivacaine HCl/ Epinephrine Bitart (Sensorcain-Epi 0.5% Kit) 30 ml STK-MED ONCE .ROUTE ; Start 09/26/21 at 10:30; Stop 09/26/21 at 10:30; Status DC Ketorolac Tromethamine (Toradol Im) 60 mg STK-MED ONCE .ROUTE ; Start 09/26/21 at 10:30; Stop 09/26/21 at 10:30; Status DC Thrombin 20,000 unit STK-MED ONCE TP Last administered on 09/26/21at 11:52; Start 09/26/21 at 10:30; Stop 09/26/21 at 10:31; Status DC Cefazolin Sodium/ Dextrose 50 ml @ As Directed STK-MED ONCE IV ; Start 09/26/21 at 10:32; Stop 09/26/21 at 10:32; Status DC Vancomycin HCl 1 gm/Sodium Chloride 250 ml @ 250 mls/hr PREOP PRN PRN IV PRIOR TO PROCEDURE; Start 09/26/21 at 10:45; Stop 09/26/21 at 14:00; Status DC Cefazolin Sodium/ Dextrose 50 ml @ 100 mls/hr 1X ONCE IV Last administered on 09/26/21at 11:00; Start 09/26/21 at 11:00; Stop 09/26/21 at 11:29; Status DC Dexamethasone Sodium Phosphate (Decadron) 4 mg STK-MED ONCE .ROUTE ; Start 09/26/21 at 11:04; Stop 09/26/21 at 11:04; Status DC Glycopyrrolate (Robinul) 1 mg STK-MED ONCE .ROUTE ; Start 09/26/21 at 11:04; Stop 09/26/21 at 11:04; Status DC Hydromorphone HCl (Dilaudid) 2 mg STK-MED ONCE .ROUTE ; Start 09/26/21 at 11:56; Stop 09/26/21 at 11:56; Status DC Fentanyl Citrate (Fentanyl 2ml Vial) 25 mcg PRN Q5MIN PRN IVP MILD PAIN 1-3; Start 09/26/21 at 14:30; Stop 09/26/21 at 18:15; Status DC Fentanyl Citrate (Fentanyl 2ml Vial) 50 mcg PRN Q5MIN PRN IVP MODERATE PAIN 4- 6; Start 09/26/21 at 14:30; Stop 09/26/21 at 18:15; Status DC Morphine Sulfate (Morphine Sulfate) 1 mg PRN Q10MIN PRN IVP SEVERE PAIN 7-10; Start 09/26/21 at 14:30; Stop 09/26/21 at 18:15; Status DC Ringer's Solution 1,000 ml @ 30 mls/hr Q24H IV Last administered on 09/26/21at 15:18; Start 09/26/21 at 14:30; Stop 09/26/21 at 21:00; Status DC Hydromorphone HCl (Dilaudid) 0.5 mg PRN Q10MIN PRN IVP SEVERE PAIN 7-10, 2nd CHOICE; Start 09/26/21 at 14:30; Stop 09/26/21 at 18:15; Status DC Prochlorperazine Edisylate (Compazine) 5 mg PACU PRN PRN IVP NAUSEA, MRX1; Start 09/26/21 at 14:30; Stop 09/26/21 at 21:00; Status DC Fentanyl Citrate (Fentanyl 2ml Vial) 100 mcg STK-MED ONCE .ROUTE ; Start 09/26/21 at 14:23; Stop 09/26/21 at 14:25; Status DC Fentanyl Citrate (Fentanyl 2ml Vial) 25 mcg PRN Q5MIN PRN IVP MILD PAIN 1-3; Start 09/26/21 at 14:30; Stop 09/27/21 at 14:29; Status UNV Fentanyl Citrate (Fentanyl 2ml Vial) 50 mcg PRN Q5MIN PRN IVP MODERATE PAIN 4- 6; Start 09/26/21 at 14:30; Stop 09/27/21 at 14:29; Status UNV Morphine Sulfate (Morphine Sulfate) 1 mg PRN Q10MIN PRN IVP SEVERE PAIN 7-10; Start 09/26/21 at 14:30; Stop 09/27/21 at 14:29; Status UNV Ringer's Solution 1,000 ml @ 30 mls/hr Q24H IV ; Start 09/26/21 at 14:30; Stop 09/27/21 at 02:29; Status UNV Hydromorphone HCl (Dilaudid) 0.5 mg PRN Q10MIN PRN IVP SEVERE PAIN 7-10, 2nd CHOICE; Start 09/26/21 at 14:30; Stop 09/27/21 at 14:29; Status UNV Prochlorperazine Edisylate (Compazine) 5 mg PACU PRN PRN IVP NAUSEA, MRX1; Start 09/26/21 at 14:30; Stop 09/27/21 at 14:29; Status UNV Dexamethasone Sodium Phosphate (Decadron) 4 mg Q6HRS IVP Last administered on 09/28/21at 05:06; Start 09/26/21 at 18:00; Stop 09/28/21 at 06:00; Status DC Sodium Chloride 1,000 ml @ 100 mls/hr Q10H IV Last administered on 09/30/21at 05:35; Start 09/26/21 at 17:30 Cefazolin Sodium (Ancef) 1 gm Q8HRS IVP ; Start 09/27/21 at 06:00; Stop 09/27/21 at 05:47; Status DC Vancomycin HCl 1 gm/Sodium Chloride 250 ml @ 166.667 mls/hr 1X ONCE IV Last administered on 09/27/21at 06:27; Start 09/27/21 at 06:00; Stop 09/27/21 at 07:29; Status DC Gadoterate Meglumine (Clariscan) 19 ml 1X ONCE IVP Last administered on 09/29/21at 10:32; Start 09/29/21 at 08:15; Stop 09/29/21 at 08:17; Status DC Bisacodyl (Dulcolax Supp) 10 mg PRN DAILY PRN [place] CONSTIPATION; Start 09/29/21 at 14:15 Lactulose (Lactulose) 20 gm PRN DAILY PRN PO CONSTIPATION Last administered on 09/29/21at 14:37; Start 09/29/21 at 14:30 Active Scripts Active Dok (Docusate Sodium) 100 Mg Capsule 100 Mg PO PRN BID PRN 30 Days Tylenol (Acetaminophen) 325 Mg Tablet 650 Mg PO PRN Q4HRS PRN 30 Days Valium (Diazepam) 5 Mg Tablet 5 Mg PO TID Atorvastatin Calcium 10 Mg Tablet 10 Mg PO QHS Reported Midodrine Hcl 2.5 Mg Tablet 2.5 Mg PO PRN 1X PRN Aspirin 81 Mg Tab.chew 81 Mg PO DAILY Baclofen 10 Mg Tablet 10 Mg PO BID Lyrica (Pregabalin) 100 Mg Capsule 100 Mg PO BID 30 Days Polyethylene Glycol 3350 2,500 Gm Powder 17 Gm PO DAILY 30 Days Oxycodone HCl 5 Mg Tablet 10 Mg PO PRN Q6HRS PRN Micatin (Miconazole Nitrate) 14 Gm Cream..g. 1 [place] TP TID Tradjenta (Linagliptin) 5 Mg Tablet 5 Mg PO DAILY Lidocaine PATCH (Lidocaine) 1 Each Adh..patch 1 Each TP DAILY REMOVE AFTER 12 HOURS Levemir (Insulin Detemir) 100 Unit/1 Ml Vial 4 Unit SQ HS Hydroxyzine Hcl 25 Mg Tablet 25 Mg PO PRN Q6HRS PRN Fluticasone Propionate Nasal [place] (Fluticasone Propionate) 16 Gm [place].susp 2 [place] NS DAILY Diclofenac Sodium 100 Gm Gel..gram. 100 Gm TP PRN TID PRN Losartan Potassium 100 Mg Tablet 25 Tab PO DAILY08 Vitals/I & O Vital Sign - Last 24 Hours 09/29/21 09/29/21 09/29/21 09/29/21 11:00 12:00 12:22 12:52 Temp 98.6 98.6 Pulse 68 66 Resp 18 18 18 18 B/P (MAP) 126/71 (89) 145/75 (98) Pulse Ox 100 97 100 100 O2 Delivery Nasal Cannula Nasal Cannula Nasal Cannula Nasal Cannula O2 Flow Rate 2.0 2.0 2.0 2.0 09/29/21 09/29/21 09/29/21 09/29/21 13:00 14:00 14:24 14:54 Pulse 72 70 Resp 18 18 17 19 B/P (MAP) 152/74 (100) 158/87 (110) Pulse Ox 100 100 100 100 O2 Delivery Nasal Cannula Nasal Cannula Nasal Cannula Nasal Cannula O2 Flow Rate 2.0 2.0 2.0 2.0 09/29/21 09/29/21 09/29/21 09/29/21 15:00 16:00 16:52 17:00 Temp 98.5 98.5 Pulse 68 68 70 Resp 18 16 14 17 B/P (MAP) 127/68 (87) 139/69 (92) 141/65 (90) Pulse Ox 100 96 96 98 O2 Delivery Nasal Cannula Nasal Cannula Room Air Nasal Cannula O2 Flow Rate 2.0 2.0 2.0 09/29/21 09/29/21 09/29/21 09/29/21 17:22 18:00 18:42 19:00 Pulse 72 78 Resp 17 17 18 15 B/P (MAP) 149/75 (99) 131/66 (87) Pulse Ox 96 95 95 94 O2 Delivery Nasal Cannula Room Air Room Air Room Air O2 Flow Rate 2.0 09/29/21 09/29/21 09/29/21 09/29/21 19:12 20:00 20:00 20:34 Temp 98.7 98.7 Pulse 76 Resp 15 12 20 B/P (MAP) 109/54 (72) Pulse Ox 95 95 96 O2 Delivery Room Air Room Air Room Air Room Air 09/29/21 09/29/21 09/29/21 09/29/21 21:00 21:04 22:00 23:00 Pulse 86 82 76 Resp 14 18 16 14 B/P (MAP) 101/65 (77) 97/56 (70) 104/57 (73) Pulse Ox 95 95 96 96 O2 Delivery Room Air Room Air Room Air Room Air 09/29/21 09/29/21 09/30/21 09/30/21 23:01 23:31 00:00 01:00 Temp 99.0 99.0 Pulse 78 80 Resp 14 18 12 12 B/P (MAP) 90/50 (63) 95/57 (70) Pulse Ox 96 95 96 96 O2 Delivery Room Air Room Air Room Air Room Air 09/30/21 09/30/21 09/30/21 09/30/21 01:39 02:00 02:09 03:00 Pulse 78 74 Resp 12 11 12 12 B/P (MAP) 93/51 (65) 92/50 (64) Pulse Ox 95 95 95 96 O2 Delivery Room Air Room Air Room Air Room Air 09/30/21 09/30/21 09/30/21 09/30/21 04:00 05:00 06:00 07:00 Temp 99.0 99.0 Pulse 78 80 77 79 Resp 12 10 10 10 B/P (MAP) 96/51 (66) 109/52 (71) 101/50 (67) 104/51 (68) Pulse Ox 95 95 96 96 O2 Delivery Room Air Room Air Room Air Room Air 09/30/21 09/30/21 09/30/21 09/30/21 08:12 08:14 08:15 08:44 Pulse 81 Resp 12 12 12 B/P (MAP) 119/65 Pulse Ox 95 95 94 O2 Delivery Room Air Room Air Room Air 09/30/21 08:44 Resp 12 Pulse Ox 94 O2 Delivery Room Air Intake and Output 09/29/21 09/29/21 09/30/21 15:00 23:00 07:00 Intake Total 1000 ml 2420 ml 1125.7 ml Output Total 3400 ml 600 ml 1000 ml Balance -2400 ml 1820 ml 125.7 ml Justifications for Admission Other Justification uncontrolled diabetes TERRY JURADO MD Sep 30, 2021 10:21
[2021-09-30] MEDS: ACETAMINOPHEN 325 MG TABLET. PO PRN (12:45)
[2021-09-30] MEDS: ATORVASTATIN CALCIUM 10 MG TABLET. PO SCH (20:26)
[2021-09-30] MEDS: LIDOCAINE (700MG/PATCH) PATCH. TP SCH (20:28)
[2021-09-30] MEDS: INSULIN GLARGINE SYRINGE. SQ SCH (20:36)
[2021-09-30] MEDS: hydrOXYzine 25 MG TABLET PO PRN (22:55)
[2021-10-01] VITALS (17 sets, daily range): BP systolic 87–134; BP diastolic 46–66
[2021-10-01] MEDS: IV 1/2 NORMAL SALINE 1,000 ML IV SCH ×2 (01:42→08:37)
[2021-10-01] MEDS: fentaNYL PF VIAL 100 MCG/2 ML VIAL IVP PRN ×3 (03:42→20:27)
[2021-10-01] MEDS: oxyCODONE IR 5 MG TABLET PO PRN ×3 (04:37→18:26)
[2021-10-01 08:30] LABS: BASO # 0.1 x10^3/uL (0.0-0.2); BASO % 1 % (0-3); EOS # 0.7 x10^3/uL (0.0-0.7); EOS % 5 % (0-3); HEMATOCRIT 26.4 % (39.0-53.0); HEMOGLOBIN 8.7 g/dL (13.0-17.5); LYMPH # 3.4 x10^3/uL (1.0-4.8); LYMPH % 24 % (24-48); MEAN CORPUSCULAR HEMOGLOBIN 28 pg (25-35); MEAN CORPUSCULAR HGB CONC 33 g/dL (31-37); MEAN CORPUSCULAR VOLUME 86 fL (79-100); MONO # 1.5 x10^3/uL (0.0-1.1); MONO % 11 % (0-9); NEUT # 8.6 x10^3/uL (1.8-7.7); NEUT % 60 % (31-73); PLATELET COUNT 169 x10^3/uL (140-400); RED BLOOD COUNT 3.06 x10^6/uL (4.30-5.70); RED CELL DISTRIBUTION WIDTH 14.1 % (11.5-14.5); WHITE BLOOD COUNT 14.2 x10^3/uL (4.0-11.0)
[2021-10-01] MEDS: DOCUSATE SODIUM 100 MG CAPSULE. PO PRN ×2 (08:34→20:28)
[2021-10-01] MEDS: LINAGLIPTIN 5 MG TABLET PO SCH (08:34)
[2021-10-01] MEDS: BACLOFEN 10 MG TABLET. PO SCH ×2 (08:34→20:29)
[2021-10-01] MEDS: LOSARTAN POTASSIUM 25 MG TABLET. PO SCH (08:34)
[2021-10-01] MEDS: diazePAM 5 MG TABLET PO SCH ×2 (08:34→13:08)
[2021-10-01] MEDS: LACTULOSE 20 GM/30 ML SOLUTION. PO PRN (08:35)
[2021-10-01] MEDS: PREGABALIN 50 MG CAPSULE PO SCH ×2 (08:35→20:28)
[2021-10-01] MEDS: POLYETHYLENE GLYCOL 3350 17 GM PACKET. PO SCH (08:35)
[2021-10-01] MEDS: MUPIROCIN 2 % OINTMENT 22GM TUBE. NS SCH ×2 (08:36→21:00)
[2021-10-01] MEDS: FLUTICASONE 50MCG/NASAL SPRAY 16GM BOTTLE. NS SCH (08:36)
[2021-10-01] MEDS: MICONAZOLE NITRATE 2% TOPICAL CREAM 30GM TUBE. TP SCH ×3 (08:36→21:00)
[2021-10-01 08:43] LABS: CALCIUM 7.9 mg/dL (8.5-10.1); CREATININE 0.8 mg/dL (0.7-1.3); GFR 118.9; POTASSIUM 4.2 mmol/L (3.5-5.1)
--- NOTE | 2021-10-01 09:57 | PDOC ---
[facility] PROGRESS NOTE Date of Service DOS: Late entry for September 30 Chief Complaint Chief Complaint Postoperative cervical laminectomy. We are going to resume his home meds plus the sliding scale. Wound care, PT, OT. DVT prophylaxis. Full code. Continue the current dexamethasone and cefazolin. Suspect he might need long-term. Transfuse 1 unit packed red blood cells today History of Present Illness History of Present Illness 09/30 Patient evaluated examined at bedside. Clinically about the same from . Continue rehab modalities. Labs stable. Plan discussed with bedside RN. 09/29 Patient evaluated at bedside. Underwent MRI this morning. Symptoms very similar to yesterday but he feels like he is regaining some function. Pain controlled. PT OT. Hemoglovin stable. 09/28 Evaluate examined at bedside. Resting in bed had no complaints to me. Said pain is quite improved. Did okay with transfusion yesterday. Continue current treatments. PT/OT. Discussed with bedside RN. Roxi 09/27 Patient evaluated examined at bedside. Was resting in bed easily awoken able to answer some questions. Some movement in his upper extremities but very limited in lower. Transfuse 1 unit today. Plan discussed with RN. Vitals/I&O Vitals/I&O: Vital Signs Date Time Temp Pulse Resp B/P (MAP) Pulse Ox O2 Delivery O2 Flow Rate FiO2 10/01/21 08:34 84 134/66 10/01/21 07:11 94 10/01/21 03:00 Room Air 10/01/21 02:00 12 09/30/21 23:45 98.9 98.9 I & O 09/30/21 09/30/21 10/01/21 15:00 23:00 07:00 Intake Total 200 ml 150 ml Output Total 1000 ml 800 ml 2200 ml Balance -1000 ml -600 ml -2050 ml Physical Exam General: Alert, Oriented X3, Cooperative Heart: Regular rate Lungs: Clear Abdomen: Normal bowel sounds, Soft, No tenderness Extremities: No edema, Normal pulses Skin: Other (dressing C,D,I) Labs Labs: Laboratory Tests Test 09/30/21 21:00 10/01/21 08:10 Glucose (Fingerstick) 148 mg/dL (70-99) White Blood Count 14.2 x10^3/uL (4.0-11.0) Red Blood Count 3.06 x10^6/uL (4.30-5.70) Hemoglobin 8.7 g/dL (13.0-17.5) Hematocrit 26.4 % (39.0-53.0) Mean Corpuscular Volume 86 fL (79-100) Mean Corpuscular Hemoglobin 28 pg (25-35) Mean Corpuscular Hemoglobin Concent 33 g/dL (31-37) Red Cell Distribution Width 14.1 % (11.5-14.5) Platelet Count 169 x10^3/uL (140-400) Neutrophils (%) (Auto) 60 % (31-73) Lymphocytes (%) (Auto) 24 % (24-48) Monocytes (%) (Auto) 11 % (0-9) Eosinophils (%) (Auto) 5 % (0-3) Basophils (%) (Auto) 1 % (0-3) Neutrophils # (Auto) 8.6 x10^3/uL (1.8-7.7) Lymphocytes # (Auto) 3.4 x10^3/uL (1.0-4.8) Monocytes # (Auto) 1.5 x10^3/uL (0.0-1.1) Eosinophils # (Auto) 0.7 x10^3/uL (0.0-0.7) Basophils # (Auto) 0.1 x10^3/uL (0.0-0.2) Sodium Level 137 mmol/L (136-145) Potassium Level 4.2 mmol/L (3.5-5.1) Chloride Level 102 mmol/L (98-107) Carbon Dioxide Level 30 mmol/L (21-32) Anion Gap 5 (6-14) Blood Urea Nitrogen 15 mg/dL (8-26) Creatinine 0.8 mg/dL (0.7-1.3) Estimated GFR (Cockcroft-Gault) 118.9 Glucose Level 146 mg/dL (70-99) Calcium Level 7.9 mg/dL (8.5-10.1) Comment Review of Relevant I have reviewed the following items michelle (where applicable) has been applied. Justifications for Admission Other Justification uncontrolled diabetes STACY LÓPEZ MD Oct 01, 2021 09:57
--- NOTE | 2021-10-01 12:26 | PDOC ---
[facility] PROGRESS NOTE Date of Service DOS: DATE: 10/01/21 TIME: 12:26 Chief Complaint Chief Complaint Postoperative cervical laminectomy. We are going to resume his home meds plus the sliding scale. Wound care, PT, OT. DVT prophylaxis. Full code. Continue the current dexamethasone and cefazolin. Suspect he might need [facility]. Transfuse 1 unit packed red blood cells today History of Present Illness History of Present Illness 10/01 Patient evaluated examined at bedside. Continues to improve. Continue rehab. Plan discussed with bedside RN. 09/30 Patient evaluated examined at bedside. Clinically about the same from yesterday. Continue rehab modalities. Labs stable. Plan discussed with bedside RN. 09/29 Patient evaluated at bedside. Underwent MRI this morning. Symptoms very similar to yesterday but he feels like he is regaining some function. Pain controlled. PT OT. Hemoglovin stable. 09/28 Evaluate examined at bedside. Resting in bed had no complaints to me. Said pain is quite improved. Did okay with transfusion yesterday. Continue current treatments. PT/OT. Discussed with bedside RN. Roxi 09/27 Patient evaluated examined at bedside. Was resting in bed easily awoken able to answer some questions. Some movement in his upper extremities but very limited in lower. Transfuse 1 unit today. Plan discussed with RN. Vitals/I&O Vitals/I&O: Vital Signs Date Time Temp Pulse Resp B/P (MAP) Pulse Ox O2 Delivery O2 Flow Rate FiO2 10/01/21 11:21 17 97 Room Air 2.0 10/01/21 11:00 76 118/56 (76) 10/01/21 08:00 99.1 99.1 I & O 09/30/21 09/30/21 10/01/21 15:00 23:00 07:00 Intake Total 200 ml 150 ml Output Total 1000 ml 800 ml 2200 ml Balance -1000 ml -600 ml -2050 ml Physical Exam General: Alert, Oriented X3, Cooperative Heart: Regular rate Lungs: Clear Abdomen: Normal bowel sounds, Soft, No tenderness Extremities: No edema, Normal pulses Skin: Other (dressing C,D,I) Labs Labs: Laboratory Tests Test 09/30/21 21:00 10/01/21 08:10 Glucose (Fingerstick) 148 mg/dL (70-99) White Blood Count 14.2 x10^3/uL (4.0-11.0) Red Blood Count 3.06 x10^6/uL (4.30-5.70) Hemoglobin 8.7 g/dL (13.0-17.5) Hematocrit 26.4 % (39.0-53.0) Mean Corpuscular Volume 86 fL (79-100) Mean Corpuscular Hemoglobin 28 pg (25-35) Mean Corpuscular Hemoglobin Concent 33 g/dL (31-37) Red Cell Distribution Width 14.1 % (11.5-14.5) Platelet Count 169 x10^3/uL (140-400) Neutrophils (%) (Auto) 60 % (31-73) Lymphocytes (%) (Auto) 24 % (24-48) Monocytes (%) (Auto) 11 % (0-9) Eosinophils (%) (Auto) 5 % (0-3) Basophils (%) (Auto) 1 % (0-3) Neutrophils # (Auto) 8.6 x10^3/uL (1.8-7.7) Lymphocytes # (Auto) 3.4 x10^3/uL (1.0-4.8) Monocytes # (Auto) 1.5 x10^3/uL (0.0-1.1) Eosinophils # (Auto) 0.7 x10^3/uL (0.0-0.7) Basophils # (Auto) 0.1 x10^3/uL (0.0-0.2) Sodium Level 137 mmol/L (136-145) Potassium Level 4.2 mmol/L (3.5-5.1) Chloride Level 102 mmol/L (98-107) Carbon Dioxide Level 30 mmol/L (21-32) Anion Gap 5 (6-14) Blood Urea Nitrogen 15 mg/dL (8-26) Creatinine 0.8 mg/dL (0.7-1.3) Estimated GFR (Cockcroft-Gault) 118.9 Glucose Level 146 mg/dL (70-99) Calcium Level 7.9 mg/dL (8.5-10.1) Comment Review of Relevant I have reviewed the following items michelle (where applicable) has been applied. Justifications for Admission Other Justification uncontrolled diabetes STACY LÓPEZ MD Oct 01, 2021 12:26
[2021-10-01 13:11] LABS: BILIRUBIN,URINE NEGATIVE (NEG); CLARITY,URINE CLEAR; COLOR,URINE YELLOW; NITRITE,URINE NEGATIVE (NEG); PROTEIN,URINE NEGATIVE (NEG-TRACE)
[2021-10-01 13:21] LABS: BACTERIA,URINE MANY /HPF (0-FEW); RBC,URINE OCC /HPF (0-2)
--- NOTE | 2021-10-01 15:48 | PDOC ---
PROGRESS NOTES Date of Service DATE: 10/01/21 TIME: 15:42 Subjective Subjective Patient seen at 1050 POD #5 S/P Evacuation of epidural hematoma, s/p cervical laminectomy and fusion 09/25/21 Pain controlled with medication Objective Objective Vital Signs Date Time Temp Pulse Resp B/P (MAP) Pulse Ox O2 Delivery O2 Flow Rate FiO2 10/01/21 14:00 87 16 103/53 (70) 96 Room Air 10/01/21 13:35 2.0 10/01/21 12:00 98.5 98.5 Intake and Output 10/01/21 07:00 Intake Total 350 ml Output Total 4000 ml Balance -3650 ml Intake Oral 350 ml Output Urine Total 3400 ml Drainage Total 600 ml # Bowel Movements 1 Physical Exam General: Alert, Oriented X3, Cooperative Neuro: Normal speech, Other (sensation improved in upper and lower extremites, moves upper extremities with 3/5 strength, hand grasps slightly stronger- finger extension on the right improved) Plan Plan of Care keep in ICU will need rehab SCDs Comment Review of Relevant I have reviewed the following items michelle (where applicable) has been applied. Labs Laboratory Tests Test 09/29/21 16:13 09/30/21 03:15 09/30/21 21:00 10/01/21 08:10 Glucose (Fingerstick) 133 mg/dL (70-99) 148 mg/dL (70-99) White Blood Count 13.2 x10^3/uL (4.0-11.0) 14.2 x10^3/uL (4.0-11.0) Red Blood Count 2.99 x10^6/uL (4.30-5.70) 3.06 x10^6/uL (4.30-5.70) Hemoglobin 8.5 g/dL (13.0-17.5) 8.7 g/dL (13.0-17.5) Hematocrit 25.7 % (39.0-53.0) 26.4 % (39.0-53.0) Mean Corpuscular Volume 86 fL (79-100) 86 fL (79-100) Mean Corpuscular Hemoglobin 29 pg (25-35) 28 pg (25-35) Mean Corpuscular Hemoglobin Concent 33 g/dL (31-37) 33 g/dL (31-37) Red Cell Distribution Width 13.9 % (11.5-14.5) 14.1 % (11.5-14.5) Platelet Count 159 x10^3/uL (140-400) 169 x10^3/uL (140-400) Neutrophils (%) (Auto) 52 % (31-73) 60 % (31-73) Lymphocytes (%) (Auto) 33 % (24-48) 24 % (24-48) Monocytes (%) (Auto) 10 % (0-9) 11 % (0-9) Eosinophils (%) (Auto) 4 % (0-3) 5 % (0-3) Basophils (%) (Auto) 0 % (0-3) 1 % (0-3) Neutrophils # (Auto) 6.9 x10^3/uL (1.8-7.7) 8.6 x10^3/uL (1.8-7.7) Lymphocytes # (Auto) 4.4 x10^3/uL (1.0-4.8) 3.4 x10^3/uL (1.0-4.8) Monocytes # (Auto) 1.4 x10^3/uL (0.0-1.1) 1.5 x10^3/uL (0.0-1.1) Eosinophils # (Auto) 0.5 x10^3/uL (0.0-0.7) 0.7 x10^3/uL (0.0-0.7) Basophils # (Auto) 0.0 x10^3/uL (0.0-0.2) 0.1 x10^3/uL (0.0-0.2) Sodium Level 142 mmol/L (136-145) 137 mmol/L (136-145) Potassium Level 3.8 mmol/L (3.5-5.1) 4.2 mmol/L (3.5-5.1) Chloride Level 106 mmol/L (98-107) 102 mmol/L (98-107) Carbon Dioxide Level 28 mmol/L (21-32) 30 mmol/L (21-32) Anion Gap 8 (6-14) 5 (6-14) Blood Urea Nitrogen 20 mg/dL (8-26) 15 mg/dL (8-26) Creatinine 0.8 mg/dL (0.7-1.3) 0.8 mg/dL (0.7-1.3) Estimated GFR (Cockcroft-Gault) 118.9 118.9 Glucose Level 177 mg/dL (70-99) 146 mg/dL (70-99) Calcium Level 7.5 mg/dL (8.5-10.1) 7.9 mg/dL (8.5-10.1) Test 10/01/21 11:30 Urine Collection Type Unknown Urine Color Yellow Urine Clarity Clear Urine pH 6.0 (<5.0-8.0) Urine Specific [place] 1.010 (1.000-1.030) Urine Protein Negative mg/dL (NEG-TRACE) Urine Glucose (UA) Negative mg/dL (NEG) Urine Ketones (Stick) Negative mg/dL (NEG) Urine Blood Trace (NEG) Urine Nitrite Negative (NEG) Urine Bilirubin Negative (NEG) Urine Urobilinogen Dipstick 1.0 mg/dL (0.2 mg/dL) Urine Leukocyte Esterase Moderate (NEG) Urine RBC Occ /HPF (0-2) Urine WBC 11-20 /HPF (0-4) Urine Squamous Epithelial Cells Occ /LPF Urine Bacteria Many /HPF (0-FEW) Laboratory Tests Test 09/30/21 21:00 10/01/21 08:10 10/01/21 11:30 Glucose (Fingerstick) 148 mg/dL (70-99) White Blood Count 14.2 x10^3/uL (4.0-11.0) Red Blood Count 3.06 x10^6/uL (4.30-5.70) Hemoglobin 8.7 g/dL (13.0-17.5) Hematocrit 26.4 % (39.0-53.0) Mean Corpuscular Volume 86 fL (79-100) Mean Corpuscular Hemoglobin 28 pg (25-35) Mean Corpuscular Hemoglobin Concent 33 g/dL (31-37) Red Cell Distribution Width 14.1 % (11.5-14.5) Platelet Count 169 x10^3/uL (140-400) Neutrophils (%) (Auto) 60 % (31-73) Lymphocytes (%) (Auto) 24 % (24-48) Monocytes (%) (Auto) 11 % (0-9) Eosinophils (%) (Auto) 5 % (0-3) Basophils (%) (Auto) 1 % (0-3) Neutrophils # (Auto) 8.6 x10^3/uL (1.8-7.7) Lymphocytes # (Auto) 3.4 x10^3/uL (1.0-4.8) Monocytes # (Auto) 1.5 x10^3/uL (0.0-1.1) Eosinophils # (Auto) 0.7 x10^3/uL (0.0-0.7) Basophils # (Auto) 0.1 x10^3/uL (0.0-0.2) Sodium Level 137 mmol/L (136-145) Potassium Level 4.2 mmol/L (3.5-5.1) Chloride Level 102 mmol/L (98-107) Carbon Dioxide Level 30 mmol/L (21-32) Anion Gap 5 (6-14) Blood Urea Nitrogen 15 mg/dL (8-26) Creatinine 0.8 mg/dL (0.7-1.3) Estimated GFR (Cockcroft-Gault) 118.9 Glucose Level 146 mg/dL (70-99) Calcium Level 7.9 mg/dL (8.5-10.1) Urine Collection Type Unknown Urine Color Yellow Urine Clarity Clear Urine pH 6.0 (<5.0-8.0) Urine Specific [place] 1.010 (1.000-1.030) Urine Protein Negative mg/dL (NEG-TRACE) Urine Glucose (UA) Negative mg/dL (NEG) Urine Ketones (Stick) Negative mg/dL (NEG) Urine Blood Trace (NEG) Urine Nitrite Negative (NEG) Urine Bilirubin Negative (NEG) Urine Urobilinogen Dipstick 1.0 mg/dL (0.2 mg/dL) Urine Leukocyte Esterase Moderate (NEG) Urine RBC Occ /HPF (0-2) Urine WBC 11-20 /HPF (0-4) Urine Squamous Epithelial Cells Occ /LPF Urine Bacteria Many /HPF (0-FEW) Medications Current Medications Fentanyl Citrate (Fentanyl 2ml Vial) 25 mcg PRN Q5MIN PRN IVP MILD PAIN 1-3; Start 09/25/21 at 06:00; Stop 09/25/21 at 20:00; Status DC Fentanyl Citrate (Fentanyl 2ml Vial) 50 mcg PRN Q5MIN PRN IVP MODERATE PAIN 4-6 Last administered on 09/25/21at 13:48; Start 09/25/21 at 06:00; Stop 09/25/21 at 20:00; Status DC Morphine Sulfate (Morphine Sulfate) 1 mg PRN Q10MIN PRN IVP SEVERE PAIN 7-10 Last administered on 09/25/21at 14:21; Start 09/25/21 at 06:00; Stop 09/25/21 at 20:00; Status DC Ringer's Solution 1,000 ml @ 30 mls/hr Q24H IV Last administered on 09/25/21at 12:54; Start 09/25/21 at 06:00; Stop 09/25/21 at 17:59; Status DC Hydromorphone HCl (Dilaudid) 0.5 mg PRN Q10MIN PRN IVP SEVERE PAIN 7-10, 2nd CHOICE Last administered on 09/25/21at 16:53; Start 09/25/21 at 06:00; Stop 09/25/21 at 20:00; Status DC Prochlorperazine Edisylate (Compazine) 5 mg PACU PRN PRN IVP NAUSEA, MRX1; Start 09/25/21 at 06:00; Stop 09/25/21 at 20:00; Status DC Cefazolin Sodium 1 gm/Sodium Chloride 1,000 ml @ 1,000 mls/hr 1X ONCE IRR Last administered on 09/25/21at 10:14; Start 09/25/21 at 06:00; Stop 09/25/21 at 06:59; Status DC Cefazolin Sodium/ Dextrose 50 ml @ 100 mls/hr 1X PREOP PRN IV PRIOR TO PROCEDURE Last administered on 09/25/21at 09:30; Start 09/25/21 at 06:00; Stop 09/25/21 at 13:39; Status DC Insulin Human Lispro (HumaLOG VIAL for OP,RR ONLY) 0-10 units PRN Q1HR PRN SQ PER PROTOCOL Last administered on 09/25/21at 17:01; Start 09/25/21 at 07:00; Stop 09/25/21 at 18:00; Status DC Bupivacaine HCl/ Epinephrine Bitart (Sensorcain-Epi 0.5% Kit) 30 ml STK-MED ONCE INJ Last administered on 09/25/21at 10:14; Start 09/25/21 at 10:14; Stop 09/25/21 at 10:30; Status DC Ketorolac Tromethamine (Toradol Im) 60 mg STK-MED ONCE INJ Last administered on 09/25/21 10:14; Start 09/25/21 at 10:14; Stop 09/25/21 at 10:30; Status DC Thrombin 20,000 unit STK-MED ONCE TP Last administered on 09/25/21at 10:14; Start 09/25/21 at 10:14; Stop 09/25/21 at 10:30; Status DC Gelatin (Gelfoam Size 100) 1 each STK-MED ONCE TP Last administered on 09/25/21 10:14; Start 09/25/21 at 10:14; Stop 09/25/21 at 10:30; Status DC Acetaminophen (Tylenol) 650 mg PRN Q4HRS PRN PO TEMP OVER 100.4F OR MILD PAIN Last administered on 09/30/21 12:45; Start 09/25/21 at 12:30 Aspirin (Aspirin Chewable) 81 mg DAILY PO Last administered on 09/26/21 08:30; Start 09/26/21 at 09:00; Stop 09/28/21 at 17:19; Status DC Atorvastatin Calcium (Lipitor) 10 mg QHS PO Last administered on 09/30/21 20:26; Start 09/25/21 at 21:00 Baclofen (Lioresal) 10 mg BID PO Last administered on 10/01/21 08:34; Start 09/25/21 at 21:00 Diazepam (Valium) 5 mg TID PO Last administered on 10/01/21at 13:08; Start 09/25/21 at 14:00 Docusate Sodium (Colace) 100 mg PRN BID PRN PO HARD STOOLS Last administered on 10/01/21 08:34; Start 09/25/21 at 12:30 Fluticasone Propionate (Flonase) 2 spray DAILY NS Last administered on 10/01/21 08:36; Start 09/26/21 at 09:00 Hydroxyzine HCl (Atarax) 25 mg PRN Q6HRS PRN PO itching Last administered on 09/30/21at 22:55; Start 09/25/21 at 12:30 Lidocaine (Lidoderm) 1 patch QHS TP Last administered on 09/30/21at 20:28; Start 09/25/21 at 20:00 Linagliptin (Tradjenta) 5 mg DAILY PO Last administered on 10/01/21 08:34; Start 09/25/21 at 13:00 Miconazole Nitrate (Monistat-Derm) 1 crispin TID TP Last administered on 10/01/21 13:05; Start 09/25/21 at 21:00 Midodrine (Proamatine) 2.5 mg PRN 1X PRN PO hypotension Last administered on 09/27/21 08:56; Start 09/25/21 at 12:30 Oxycodone HCl (Roxicodone) 10 mg PRN Q6HRS PRN PO MODERATE-SEVERE PAIN Last administered on 10/01/21at 13:05; Start 09/25/21 at 12:30 Diclofenac Sodium (Voltaren) 1 crispin PRN TID PRN TP PAIN CONTROL; Start 09/25/21 at 13:15; Stop 09/25/21 at 18:37; Status DC Insulin Glargine (Lantus Syringe) 4 unit QHS SQ Last administered on 09/30/21at 20:36; Start 09/25/21 at 21:00 Losartan Potassium (Cozaar) 25 mg DAILY08 PO Last administered on 10/01/21at 08:34; Start 09/26/21 at 08:00 Polyethylene Glycol (miraLAX PACKET) 17 gm DAILY PO Last administered on 10/01/21at 08:35; Start 09/25/21 at 14:00 Pregabalin (Lyrica) 100 mg BID PO Last administered on 10/01/21at 08:35; Start 09/25/21 at 21:00 Acetaminophen (Tylenol) 650 mg PRN Q6HRS PRN PO MILD PAIN / TEMP > 100.3'F; Start 09/25/21 at 12:30; Status Cancel Al Hydroxide/Mg Hydroxide (Mylanta Plus Xs) 30 ml PRN Q3HRS PRN PO HEARTBURN / GAS; Start 09/25/21 at 12:30 Calcium Carbonate/ Glycine (Tums) 500 mg PRN Q3HRS PRN PO INDIGESTION; Start 09/25/21 at 12:30 Diphenhydramine HCl (Benadryl) 25 mg PRN Q6HRS PRN PO ITCHING; Start 09/25/21 at 12:30 Naloxone HCl (Narcan) 0.1 mg PRN Q2MIN PRN IV SEE COMMENTS; Start 09/25/21 at 12:30 Sodium Chloride (Normal Saline Flush) 3 ml QSHIFT PRN IV AFTER MEDS AND BLOOD DRAWS; Start 09/25/21 at 12:30 Potassium Chloride/Sodium Chloride 1,000 ml @ 75 mls/hr [id number] IV Last administered on 09/26/21at 07:00; Start 09/25/21 at 12:30; Stop 09/26/21 at 17:33; Status DC Magnesium Hydroxide (Milk Of Magnesia) 2,400 mg PRN Q12HR PRN PO CONSTIPATION; Start 09/25/21 at 12:30 Cefazolin Sodium (Ancef) 1 gm Q8H IVP Last administered on 09/26/21at 04:14; Start 09/25/21 at 18:00; Stop 09/26/21 at 10:01; Status DC Fentanyl Citrate (Fentanyl 2ml Vial) 50 mcg PRN Q2HR PRN IVP MODERATE TO SEVERE PAIN Last administered on 10/01/21at 11:21; Start 09/25/21 at 12:30 Dextrose (Dextrose 50%-Water Syringe) 12.5 gm PRN Q15MIN PRN IV SEE COMMENTS; Start 09/25/21 at 12:30 Dextrose (Iv Dextrose 5%) 250 ml PRN Q15MIN PRN IV SEE COMMENTS; Start 09/25/21 at 12:30 Gelatin (Gelfoam Size 100) 1 each STK-MED ONCE .ROUTE ; Start 09/25/21 at 06:37; Stop 09/25/21 at 14:55; Status DC Bupivacaine HCl/ Epinephrine Bitart (Sensorcain-Epi 0.5% Kit) 30 ml STK-MED ONCE .ROUTE ; Start 09/25/21 at 06:37; Stop 09/25/21 at 14:55; Status DC Ketorolac Tromethamine (Toradol Im) 60 mg STK-MED ONCE .ROUTE ; Start 09/25/21 at 06:37; Stop 09/25/21 at 14:55; Status DC Thrombin 20,000 unit STK-MED ONCE TP ; Start 09/25/21 at 06:38; Stop 09/25/21 at 14:55; Status DC Propofol (Diprivan) 200 mg STK-MED ONCE IV ; Start 09/25/21 at 05:54; Stop 09/25/21 at 14:57; Status DC Lidocaine HCl (Lidocaine Pf 2% Vial) 5 ml STK-MED ONCE .ROUTE ; Start 09/25/21 at 05:54; Stop 09/25/21 at 14:57; Status DC Ondansetron HCl (Zofran) 4 mg STK-MED ONCE .ROUTE ; Start 09/25/21 at 05:54; Stop 09/25/21 at 14:57; Status DC Phenylephrine HCl ([place]one-Synephrine Inj) 10 mg STK-MED ONCE .ROUTE ; Start 09/25/21 at 05:54; Stop 09/25/21 at 14:57; Status DC Propofol 50 ml @ As Directed STK-MED ONCE IV ; Start 09/25/21 at 05:54; Stop 09/25/21 at 14:57; Status DC Dexamethasone Sodium Phosphate (Decadron) 4 mg STK-MED ONCE .ROUTE ; Start 09/25/21 at 05:54; Stop 09/25/21 at 14:57; Status DC Fentanyl Citrate (Fentanyl 2ml Vial) 100 mcg STK-MED ONCE .ROUTE ; Start 09/25/21 at 05:54; Stop 09/25/21 at 14:57; Status DC Succinylcholine Chloride ([place]) 200 mg STK-MED ONCE .ROUTE ; Start 09/25/21 at 05:54; Stop 09/25/21 at 14:57; Status DC Remifentanil HCl (Ultiva) 1 mg STK-MED ONCE IV ; Start 09/25/21 at 05:54; Stop 09/25/21 at 14:57; Status DC Glycopyrrolate (Robinul) 1 mg STK-MED ONCE .ROUTE ; Start 09/25/21 at 07:11; Stop 09/25/21 at 15:01; Status DC Propofol 50 ml @ As Directed STK-MED ONCE IV ; Start 09/25/21 at 08:07; Stop 09/25/21 at 15:02; Status DC Ketamine HCl (Ketamine) 50 mg STK-MED ONCE .ROUTE ; Start 09/25/21 at 08:15; Stop 09/25/21 at 15:02; Status DC Hydromorphone HCl (Dilaudid) 2 mg STK-MED ONCE .ROUTE ; Start 09/25/21 at 10:44; Stop 09/25/21 at 15:03; Status DC Fentanyl Citrate (Fentanyl 2ml Vial) 100 mcg STK-MED ONCE .ROUTE ; Start 09/25/21 at 13:26; Stop 09/25/21 at 15:04; Status DC Morphine Sulfate (Morphine Sulfate) 2 mg STK-MED ONCE .ROUTE ; Start 09/25/21 at 14:04; Stop 09/25/21 at 15:05; Status DC Hydromorphone HCl (Dilaudid) 2 mg STK-MED ONCE .ROUTE ; Start 09/25/21 at 14:54; Stop 09/25/21 at 15:06; Status DC Menthol/Methyl Salicylate ([place] Greaseless Cream) 1 crispin PRN Q30MIN PRN TP MUSCLE PAIN Last administered on 09/30/21at 21:07; Start 09/25/21 at 18:45 Mupirocin (Bactroban) 1 crispin BID NS Last administered on 10/01/21at 08:36; Start 09/26/21 at 09:00 Dexamethasone Sodium Phosphate (Decadron) 10 mg 1X ONCE IVP Last administered on 09/26/21at 07:31; Start 09/26/21 at 07:30; Stop 09/26/21 at 07:31; Status DC Cefazolin Sodium 1 gm/Sodium Chloride 1,000 ml @ 1,000 mls/hr 1X ONCE IRR Last administered on 09/26/21at 11:52; Start 09/26/21 at 10:30; Stop 09/26/21 at 11:29; Status DC Cefazolin Sodium (Ancef) 1 gm STK-MED ONCE IVP ; Start 09/26/21 at 10:05; Stop 09/26/21 at 10:06; Status DC Lidocaine HCl (Lidocaine Pf 2% Vial) 5 ml STK-MED ONCE .ROUTE ; Start 09/26/21 at 10:18; Stop 09/26/21 at 10:18; Status DC Ondansetron HCl (Zofran) 4 mg STK-MED ONCE .ROUTE ; Start 09/26/21 at 10:18; Stop 09/26/21 at 10:18; Status DC Propofol (Diprivan) 200 mg STK-MED ONCE IV ; Start 09/26/21 at 10:18; Stop 09/26/21 at 10:19; Status DC Dexamethasone Sodium Phosphate (Decadron) 4 mg STK-MED ONCE .ROUTE ; Start 09/26/21 at 10:18; Stop 09/26/21 at 10:19; Status DC Sevoflurane (Ultane) 30 ml STK-MED ONCE IH ; Start 09/26/21 at 10:18; Stop 09/26/21 at 10:19; Status DC Fentanyl Citrate (Fentanyl 2ml Vial) 100 mcg STK-MED ONCE .ROUTE ; Start 09/26/21 at 10:19; Stop 09/26/21 at 10:19; Status DC Rocuronium [place] (Zemuron) 50 mg STK-MED ONCE .ROUTE ; Start 09/26/21 at 10:19; Stop 09/26/21 at 10:19; Status DC Insulin Human Lispro (HumaLOG VIAL for OP,RR ONLY) 0-10 units PRN Q1HR PRN SQ PER PROTOCOL Last administered on 09/26/21at 15:11; Start 09/26/21 at 10:30; Stop 09/26/21 at 18:00; Status DC Sugammadex Sodium ([place]rid[place]) 200 mg 1X ONCE IVP Last administered on 09/26/21at 10:30; Start 09/26/21 at 10:30; Stop 09/26/21 at 10:31; Status DC Gelatin (Gelfoam Size 100) 1 each STK-MED ONCE .ROUTE Last administered on 09/26/21at 11:52; Start 09/26/21 at 10:30; Stop 09/26/21 at 10:30; Status DC Bupivacaine HCl/ Epinephrine Bitart (Sensorcain-Epi 0.5% Kit) 30 ml STK-MED ONCE .ROUTE ; Start 09/26/21 at 10:30; Stop 09/26/21 at 10:30; Status DC Ketorolac Tromethamine (Toradol Im) 60 mg STK-MED ONCE .ROUTE ; Start 09/26/21 at 10:30; Stop 09/26/21 at 10:30; Status DC Thrombin 20,000 unit STK-MED ONCE TP Last administered on 09/26/21at 11:52; Start 09/26/21 at 10:30; Stop 09/26/21 at 10:31; Status DC Cefazolin Sodium/ Dextrose 50 ml @ As Directed STK-MED ONCE IV ; Start 09/26/21 at 10:32; Stop 09/26/21 at 10:32; Status DC Vancomycin HCl 1 gm/Sodium Chloride 250 ml @ 250 mls/hr PREOP PRN PRN IV PRIOR TO PROCEDURE; Start 09/26/21 at 10:45; Stop 09/26/21 at 14:00; Status DC Cefazolin Sodium/ Dextrose 50 ml @ 100 mls/hr 1X ONCE IV Last administered on 09/26/21at 11:00; Start 09/26/21 at 11:00; Stop 09/26/21 at 11:29; Status DC Dexamethasone Sodium Phosphate (Decadron) 4 mg STK-MED ONCE .ROUTE ; Start 09/26/21 at 11:04; Stop 09/26/21 at 11:04; Status DC Glycopyrrolate (Robinul) 1 mg STK-MED ONCE .ROUTE ; Start 09/26/21 at 11:04; Stop 09/26/21 at 11:04; Status DC Hydromorphone HCl (Dilaudid) 2 mg STK-MED ONCE .ROUTE ; Start 09/26/21 at 11:56; Stop 09/26/21 at 11:56; Status DC Fentanyl Citrate (Fentanyl 2ml Vial) 25 mcg PRN Q5MIN PRN IVP MILD PAIN 1-3; Start 09/26/21 at 14:30; Stop 09/26/21 at 18:15; Status DC Fentanyl Citrate (Fentanyl 2ml Vial) 50 mcg PRN Q5MIN PRN IVP MODERATE PAIN 4- 6; Start 09/26/21 at 14:30; Stop 09/26/21 at 18:15; Status DC Morphine Sulfate (Morphine Sulfate) 1 mg PRN Q10MIN PRN IVP SEVERE PAIN 7-10; Start 09/26/21 at 14:30; Stop 09/26/21 at 18:15; Status DC Ringer's Solution 1,000 ml @ 30 mls/hr Q24H IV Last administered on 09/26/21at 15:18; Start 09/26/21 at 14:30; Stop 09/26/21 at 21:00; Status DC Hydromorphone HCl (Dilaudid) 0.5 mg PRN Q10MIN PRN IVP SEVERE PAIN 7-10, 2nd CHOICE; Start 09/26/21 at 14:30; Stop 09/26/21 at 18:15; Status DC Prochlorperazine Edisylate (Compazine) 5 mg PACU PRN PRN IVP NAUSEA, MRX1; Start 09/26/21 at 14:30; Stop 09/26/21 at 21:00; Status DC Fentanyl Citrate (Fentanyl 2ml Vial) 100 mcg STK-MED ONCE .ROUTE ; Start 09/26/21 at 14:23; Stop 09/26/21 at 14:25; Status DC Fentanyl Citrate (Fentanyl 2ml Vial) 25 mcg PRN Q5MIN PRN IVP MILD PAIN 1-3; Start 09/26/21 at 14:30; Stop 09/27/21 at 14:29; Status UNV Fentanyl Citrate (Fentanyl 2ml Vial) 50 mcg PRN Q5MIN PRN IVP MODERATE PAIN 4- 6; Start 09/26/21 at 14:30; Stop 09/27/21 at 14:29; Status UNV Morphine Sulfate (Morphine Sulfate) 1 mg PRN Q10MIN PRN IVP SEVERE PAIN 7-10; Start 09/26/21 at 14:30; Stop 09/27/21 at 14:29; Status UNV Ringer's Solution 1,000 ml @ 30 mls/hr Q24H IV ; Start 09/26/21 at 14:30; Stop 09/27/21 at 02:29; Status UNV Hydromorphone HCl (Dilaudid) 0.5 mg PRN Q10MIN PRN IVP SEVERE PAIN 7-10, 2nd CHOICE; Start 09/26/21 at 14:30; Stop 09/27/21 at 14:29; Status UNV Prochlorperazine Edisylate (Compazine) 5 mg PACU PRN PRN IVP NAUSEA, MRX1; Start 09/26/21 at 14:30; Stop 09/27/21 at 14:29; Status UNV Dexamethasone Sodium Phosphate (Decadron) 4 mg Q6HRS IVP Last administered on 09/28/21at 05:06; Start 09/26/21 at 18:00; Stop 09/28/21 at 06:00; Status DC Sodium Chloride 1,000 ml @ 100 mls/hr Q10H IV Last administered on 10/01/21at 08:37; Start 09/26/21 at 17:30 Cefazolin Sodium (Ancef) 1 gm Q8HRS IVP ; Start 09/27/21 at 06:00; Stop 09/27/21 at 05:47; Status DC Vancomycin HCl 1 gm/Sodium Chloride 250 ml @ 166.667 mls/hr 1X ONCE IV Last administered on 09/27/21at 06:27; Start 09/27/21 at 06:00; Stop 09/27/21 at 07:29; Status DC Gadoterate Meglumine (Clariscan) 19 ml 1X ONCE IVP Last administered on 09/29/21at 10:32; Start 09/29/21 at 08:15; Stop 09/29/21 at 08:17; Status DC Bisacodyl (Dulcolax Supp) 10 mg PRN DAILY PRN [place] CONSTIPATION; Start 09/29/21 at 14:15 Lactulose (Lactulose) 20 gm PRN DAILY PRN PO CONSTIPATION Last administered on 10/01/21at 08:35; Start 09/29/21 at 14:30 Active Scripts Active Dok (Docusate Sodium) 100 Mg Capsule 100 Mg PO PRN BID PRN 30 Days Tylenol (Acetaminophen) 325 Mg Tablet 650 Mg PO PRN Q4HRS PRN 30 Days Valium (Diazepam) 5 Mg Tablet 5 Mg PO TID Atorvastatin Calcium 10 Mg Tablet 10 Mg PO QHS Reported Midodrine Hcl 2.5 Mg Tablet 2.5 Mg PO PRN 1X PRN Aspirin 81 Mg Tab.chew 81 Mg PO DAILY Baclofen 10 Mg Tablet 10 Mg PO BID Lyrica (Pregabalin) 100 Mg Capsule 100 Mg PO BID 30 Days Polyethylene Glycol 3350 2,500 Gm Powder 17 Gm PO DAILY 30 Days Oxycodone HCl 5 Mg Tablet 10 Mg PO PRN Q6HRS PRN Micatin (Miconazole Nitrate) 14 Gm Cream..g. 1 [place] TP TID Tradjenta (Linagliptin) 5 Mg Tablet 5 Mg PO DAILY Lidocaine PATCH (Lidocaine) 1 Each Adh..patch 1 Each TP DAILY REMOVE AFTER 12 HOURS Levemir (Insulin Detemir) 100 Unit/1 Ml Vial 4 Unit SQ HS Hydroxyzine Hcl 25 Mg Tablet 25 Mg PO PRN Q6HRS PRN Fluticasone Propionate Nasal [place] (Fluticasone Propionate) 16 Gm [place].susp 2 [place] NS DAILY Diclofenac Sodium 100 Gm Gel..gram. 100 Gm TP PRN TID PRN Losartan Potassium 100 Mg Tablet 25 Tab PO DAILY08 Vitals/I & O Vital Sign - Last 24 Hours 09/30/21 09/30/21 09/30/21 09/30/21 16:00 17:00 17:45 18:00 Temp 100.3 100.3 Pulse 78 82 84 Resp 18 18 14 18 B/P (MAP) 96/53 (67) 111/56 (74) 104/60 (75) Pulse Ox 95 97 97 96 O2 Delivery Room Air Room Air Room Air Room Air 09/30/21 09/30/21 09/30/21 09/30/21 18:15 20:20 20:20 23:45 Temp 98.6 98.9 98.6 98.9 Resp 14 Pulse Ox 97 O2 Delivery Room Air Room Air 10/01/21 10/01/21 10/01/21 10/01/21 00:00 01:00 02:00 03:00 Pulse 80 75 Resp 12 12 12 B/P (MAP) 96/50 (65) 91/50 (64) 87/47 (60) 105/50 (68) Pulse Ox 94 94 O2 Delivery Room Air Room Air Nasal Cannula Room Air 10/01/21 10/01/21 10/01/21 10/01/21 07:11 08:00 08:00 08:34 Temp 99.1 99.1 Pulse 79 80 84 Resp 18 B/P (MAP) 111/55 (73) 110/60 (77) 134/66 Pulse Ox 94 96 O2 Delivery Room Air Room Air 10/01/21 10/01/21 10/01/21 10/01/21 09:00 10:00 11:00 11:21 Pulse 78 82 76 Resp 18 17 18 17 B/P (MAP) 134/66 (88) 99/54 (69) 118/56 (76) Pulse Ox 95 97 95 97 O2 Delivery Room Air Room Air Room Air Room Air O2 Flow Rate 2.0 2/13/10/01/21 10/01/21 10/01/21 11:51 12:00 13:00 13:05 Temp 98.5 98.5 Pulse 74 89 Resp 17 18 17 18 B/P (MAP) 120/53 (75) 115/55 (75) Pulse Ox 97 97 95 97 O2 Delivery Room Air Room Air Room Air Room Air O2 Flow Rate 2.0 2.0 10/01/21 10/01/21 13:35 14:00 Pulse 87 Resp 18 16 B/P (MAP) 103/53 (70) Pulse Ox 97 96 O2 Delivery Room Air Room Air O2 Flow Rate 2.0 Intake and Output 09/30/21 09/30/21 10/01/21 15:00 23:00 07:00 Intake Total 200 ml 150 ml Output Total 1000 ml 800 ml 2200 ml Balance -1000 ml -600 ml -2050 ml Justifications for Admission Other Justification uncontrolled diabetes KELLEN BRUNO MD Oct 01, 2021 15:48
[2021-10-01] MEDS: hydrOXYzine 25 MG TABLET PO PRN (18:26)
[2021-10-01] MEDS: LIDOCAINE (700MG/PATCH) PATCH. TP SCH (20:28)
[2021-10-01] MEDS: ATORVASTATIN CALCIUM 10 MG TABLET. PO SCH (20:29)
[2021-10-02] VITALS (14 sets, daily range): BP systolic 81–146; BP diastolic 44–67
[2021-10-02] MEDS: diazePAM 5 MG TABLET PO SCH ×4 (00:11→22:58)
[2021-10-02] MEDS: INSULIN GLARGINE SYRINGE. SQ SCH ×2 (00:17→23:09)
[2021-10-02] MEDS: fentaNYL PF VIAL 100 MCG/2 ML VIAL IVP PRN ×3 (00:27→21:18)
[2021-10-02] MEDS: IV 1/2 NORMAL SALINE 1,000 ML IV SCH ×3 (00:28→17:13)
[2021-10-02] MEDS: oxyCODONE IR 5 MG TABLET PO PRN ×4 (00:56→17:41)
[2021-10-02] MEDS: hydrOXYzine 25 MG TABLET PO PRN ×3 (01:03→22:58)
[2021-10-02] MEDS: METHYL SALICYLATE/MENTHOL TOPICAL CREAM 57GM TUBE. TP PRN ×2 (03:35→21:03)
[2021-10-02 06:02] LABS: BASO # 0.1 x10^3/uL (0.0-0.2); BASO % 1 % (0-3); EOS # 0.6 x10^3/uL (0.0-0.7); EOS % 4 % (0-3); HEMATOCRIT 25.8 % (39.0-53.0); HEMOGLOBIN 8.4 g/dL (13.0-17.5); LYMPH # 3.3 x10^3/uL (1.0-4.8); LYMPH % 22 % (24-48); MEAN CORPUSCULAR HEMOGLOBIN 29 pg (25-35); MEAN CORPUSCULAR HGB CONC 33 g/dL (31-37); MEAN CORPUSCULAR VOLUME 88 fL (79-100); MONO # 1.6 x10^3/uL (0.0-1.1); MONO % 11 % (0-9); NEUT # 9.2 x10^3/uL (1.8-7.7); NEUT % 62 % (31-73); PLATELET COUNT 195 x10^3/uL (140-400); RED BLOOD COUNT 2.95 x10^6/uL (4.30-5.70); RED CELL DISTRIBUTION WIDTH 14.2 % (11.5-14.5); WHITE BLOOD COUNT 14.8 x10^3/uL (4.0-11.0)
[2021-10-02 06:22] LABS: CALCIUM 7.7 mg/dL (8.5-10.1); CREATININE 0.8 mg/dL (0.7-1.3); GFR 118.9; POTASSIUM 4.3 mmol/L (3.5-5.1)
[2021-10-02] MEDS: LOSARTAN POTASSIUM 25 MG TABLET. PO SCH (08:00)
[2021-10-02] MEDS: MICONAZOLE NITRATE 2% TOPICAL CREAM 30GM TUBE. TP SCH ×3 (09:00→21:00)
[2021-10-02] MEDS: BACLOFEN 10 MG TABLET. PO SCH ×2 (09:05→21:01)
[2021-10-02] MEDS: PREGABALIN 50 MG CAPSULE PO SCH ×2 (09:05→21:02)
[2021-10-02] MEDS: LINAGLIPTIN 5 MG TABLET PO SCH (09:05)
[2021-10-02] MEDS: POLYETHYLENE GLYCOL 3350 17 GM PACKET. PO SCH (09:06)
[2021-10-02] MEDS: FLUTICASONE 50MCG/NASAL SPRAY 16GM BOTTLE. NS SCH (09:09)
[2021-10-02] MEDS: MUPIROCIN 2 % OINTMENT 22GM TUBE. NS SCH ×2 (09:09→21:00)
--- NOTE | 2021-10-02 09:32 | PDOC ---
PROGRESS NOTES Date of Service DATE: 10/02/21 TIME: 09:26 Subjective Subjective No new complaints. Objective Objective Vital Signs Date Time Temp Pulse Resp B/P (MAP) Pulse Ox O2 Delivery O2 Flow Rate FiO2 10/02/21 09:10 84 11 103/51 (68) 94 Room Air 10/02/21 04:00 98.5 98.5 10/02/21 00:27 2.0 Intake and Output 10/02/21 07:00 Intake Total 2720 ml Output Total 4000 ml Balance -1280 ml Intake Oral 1520 ml IV Total 1200 ml Output Urine Total 4000 ml Physical Exam Physical Exam He is alert,supine in bed and no change with his neurological status. He had urinary tract infection with E.Coli. Plan Plan of Care To arrange for rehab unit screen. Comment Review of Relevant I have reviewed the following items michelle (where applicable) has been applied. Labs Laboratory Tests Test 09/30/21 21:00 10/01/21 08:10 10/01/21 11:30 10/01/21 21:06 Glucose (Fingerstick) 148 mg/dL (70-99) 184 mg/dL (70-99) White Blood Count 14.2 x10^3/uL (4.0-11.0) Red Blood Count 3.06 x10^6/uL (4.30-5.70) Hemoglobin 8.7 g/dL (13.0-17.5) Hematocrit 26.4 % (39.0-53.0) Mean Corpuscular Volume 86 fL (79-100) Mean Corpuscular Hemoglobin 28 pg (25-35) Mean Corpuscular Hemoglobin Concent 33 g/dL (31-37) Red Cell Distribution Width 14.1 % (11.5-14.5) Platelet Count 169 x10^3/uL (140-400) Neutrophils (%) (Auto) 60 % (31-73) Lymphocytes (%) (Auto) 24 % (24-48) Monocytes (%) (Auto) 11 % (0-9) Eosinophils (%) (Auto) 5 % (0-3) Basophils (%) (Auto) 1 % (0-3) Neutrophils # (Auto) 8.6 x10^3/uL (1.8-7.7) Lymphocytes # (Auto) 3.4 x10^3/uL (1.0-4.8) Monocytes # (Auto) 1.5 x10^3/uL (0.0-1.1) Eosinophils # (Auto) 0.7 x10^3/uL (0.0-0.7) Basophils # (Auto) 0.1 x10^3/uL (0.0-0.2) Sodium Level 137 mmol/L (136-145) Potassium Level 4.2 mmol/L (3.5-5.1) Chloride Level 102 mmol/L (98-107) Carbon Dioxide Level 30 mmol/L (21-32) Anion Gap 5 (6-14) Blood Urea Nitrogen 15 mg/dL (8-26) Creatinine 0.8 mg/dL (0.7-1.3) Estimated GFR (Cockcroft-Gault) 118.9 Glucose Level 146 mg/dL (70-99) Calcium Level 7.9 mg/dL (8.5-10.1) Urine Collection Type Unknown Urine Color Yellow Urine Clarity Clear Urine pH 6.0 (<5.0-8.0) Urine Specific [place] 1.010 (1.000-1.030) Urine Protein Negative mg/dL (NEG-TRACE) Urine Glucose (UA) Negative mg/dL (NEG) Urine Ketones (Stick) Negative mg/dL (NEG) Urine Blood Trace (NEG) Urine Nitrite Negative (NEG) Urine Bilirubin Negative (NEG) Urine Urobilinogen Dipstick 1.0 mg/dL (0.2 mg/dL) Urine Leukocyte Esterase Moderate (NEG) Urine RBC Occ /HPF (0-2) Urine WBC 11-20 /HPF (0-4) Urine Squamous Epithelial Cells Occ /LPF Urine Bacteria Many /HPF (0-FEW) Test 10/02/21 05:40 White Blood Count 14.8 x10^3/uL (4.0-11.0) Red Blood Count 2.95 x10^6/uL (4.30-5.70) Hemoglobin 8.4 g/dL (13.0-17.5) Hematocrit 25.8 % (39.0-53.0) Mean Corpuscular Volume 88 fL (79-100) Mean Corpuscular Hemoglobin 29 pg (25-35) Mean Corpuscular Hemoglobin Concent 33 g/dL (31-37) Red Cell Distribution Width 14.2 % (11.5-14.5) Platelet Count 195 x10^3/uL (140-400) Neutrophils (%) (Auto) 62 % (31-73) Lymphocytes (%) (Auto) 22 % (24-48) Monocytes (%) (Auto) 11 % (0-9) Eosinophils (%) (Auto) 4 % (0-3) Basophils (%) (Auto) 1 % (0-3) Neutrophils # (Auto) 9.2 x10^3/uL (1.8-7.7) Lymphocytes # (Auto) 3.3 x10^3/uL (1.0-4.8) Monocytes # (Auto) 1.6 x10^3/uL (0.0-1.1) Eosinophils # (Auto) 0.6 x10^3/uL (0.0-0.7) Basophils # (Auto) 0.1 x10^3/uL (0.0-0.2) Sodium Level 138 mmol/L (136-145) Potassium Level 4.3 mmol/L (3.5-5.1) Chloride Level 102 mmol/L (98-107) Carbon Dioxide Level 30 mmol/L (21-32) Anion Gap 6 (6-14) Blood Urea Nitrogen 13 mg/dL (8-26) Creatinine 0.8 mg/dL (0.7-1.3) Estimated GFR (Cockcroft-Gault) 118.9 Glucose Level 160 mg/dL (70-99) Calcium Level 7.7 mg/dL (8.5-10.1) Laboratory Tests Test 10/01/21 11:30 10/01/21 21:06 10/02/21 05:40 Urine Collection Type Unknown Urine Color Yellow Urine Clarity Clear Urine pH 6.0 (<5.0-8.0) Urine Specific [place] 1.010 (1.000-1.030) Urine Protein Negative mg/dL (NEG-TRACE) Urine Glucose (UA) Negative mg/dL (NEG) Urine Ketones (Stick) Negative mg/dL (NEG) Urine Blood Trace (NEG) Urine Nitrite Negative (NEG) Urine Bilirubin Negative (NEG) Urine Urobilinogen Dipstick 1.0 mg/dL (0.2 mg/dL) Urine Leukocyte Esterase Moderate (NEG) Urine RBC Occ /HPF (0-2) Urine WBC 11-20 /HPF (0-4) Urine Squamous Epithelial Cells Occ /LPF Urine Bacteria Many /HPF (0-FEW) Glucose (Fingerstick) 184 mg/dL (70-99) White Blood Count 14.8 x10^3/uL (4.0-11.0) Red Blood Count 2.95 x10^6/uL (4.30-5.70) Hemoglobin 8.4 g/dL (13.0-17.5) Hematocrit 25.8 % (39.0-53.0) Mean Corpuscular Volume 88 fL (79-100) Mean Corpuscular Hemoglobin 29 pg (25-35) Mean Corpuscular Hemoglobin Concent 33 g/dL (31-37) Red Cell Distribution Width 14.2 % (11.5-14.5) Platelet Count 195 x10^3/uL (140-400) Neutrophils (%) (Auto) 62 % (31-73) Lymphocytes (%) (Auto) 22 % (24-48) Monocytes (%) (Auto) 11 % (0-9) Eosinophils (%) (Auto) 4 % (0-3) Basophils (%) (Auto) 1 % (0-3) Neutrophils # (Auto) 9.2 x10^3/uL (1.8-7.7) Lymphocytes # (Auto) 3.3 x10^3/uL (1.0-4.8) Monocytes # (Auto) 1.6 x10^3/uL (0.0-1.1) Eosinophils # (Auto) 0.6 x10^3/uL (0.0-0.7) Basophils # (Auto) 0.1 x10^3/uL (0.0-0.2) Sodium Level 138 mmol/L (136-145) Potassium Level 4.3 mmol/L (3.5-5.1) Chloride Level 102 mmol/L (98-107) Carbon Dioxide Level 30 mmol/L (21-32) Anion Gap 6 (6-14) Blood Urea Nitrogen 13 mg/dL (8-26) Creatinine 0.8 mg/dL (0.7-1.3) Estimated GFR (Cockcroft-Gault) 118.9 Glucose Level 160 mg/dL (70-99) Calcium Level 7.7 mg/dL (8.5-10.1) Microbiology 2/12/22 Urine Culture - Preliminary, Resulted Escherichia Coli Medications Current Medications Fentanyl Citrate (Fentanyl 2ml Vial) 25 mcg PRN Q5MIN PRN IVP MILD PAIN 1-3; Start 09/25/21 at 06:00; Stop 09/25/21 at 20:00; Status DC Fentanyl Citrate (Fentanyl 2ml Vial) 50 mcg PRN Q5MIN PRN IVP MODERATE PAIN 4-6 Last administered on 09/25/21at 13:48; Start 09/25/21 at 06:00; Stop 09/25/21 at 20:00; Status DC Morphine Sulfate (Morphine Sulfate) 1 mg PRN Q10MIN PRN IVP SEVERE PAIN 7-10 Last administered on 09/25/21at 14:21; Start 09/25/21 at 06:00; Stop 09/25/21 at 20:00; Status DC Ringer's Solution 1,000 ml @ 30 mls/hr Q24H IV Last administered on 09/25/21at 12:54; Start 09/25/21 at 06:00; Stop 09/25/21 at 17:59; Status DC Hydromorphone HCl (Dilaudid) 0.5 mg PRN Q10MIN PRN IVP SEVERE PAIN 7-10, 2nd CHOICE Last administered on 09/25/21at 16:53; Start 09/25/21 at 06:00; Stop 09/25/21 at 20:00; Status DC Prochlorperazine Edisylate (Compazine) 5 mg PACU PRN PRN IVP NAUSEA, MRX1; Start 09/25/21 at 06:00; Stop 09/25/21 at 20:00; Status DC Cefazolin Sodium 1 gm/Sodium Chloride 1,000 ml @ 1,000 mls/hr 1X ONCE IRR Last administered on 09/25/21at 10:14; Start 09/25/21 at 06:00; Stop 09/25/21 at 06:59; Status DC Cefazolin Sodium/ Dextrose 50 ml @ 100 mls/hr 1X PREOP PRN IV PRIOR TO PROCEDURE Last administered on 09/25/21at 09:30; Start 09/25/21 at 06:00; Stop 09/25/21 at 13:39; Status DC Insulin Human Lispro (HumaLOG VIAL for OP,RR ONLY) 0-10 units PRN Q1HR PRN SQ PER PROTOCOL Last administered on 09/25/21at 17:01; Start 09/25/21 at 07:00; Stop 09/25/21 at 18:00; Status DC Bupivacaine HCl/ Epinephrine Bitart (Sensorcain-Epi 0.5% Kit) 30 ml STK-MED ONCE INJ Last administered on 09/25/21at 10:14; Start 09/25/21 at 10:14; Stop 09/25/21 at 10:30; Status DC Ketorolac Tromethamine (Toradol Im) 60 mg STK-MED ONCE INJ Last administered on 09/25/21at 10:14; Start 09/25/21 at 10:14; Stop 09/25/21 at 10:30; Status DC Thrombin 20,000 unit STK-MED ONCE TP Last administered on 09/25/21at 10:14; Start 09/25/21 at 10:14; Stop 09/25/21 at 10:30; Status DC Gelatin (Gelfoam Size 100) 1 each STK-MED ONCE TP Last administered on 09/25/21a t 10:14; Start 09/25/21 at 10:14; Stop 09/25/21 at 10:30; Status DC Acetaminophen (Tylenol) 650 mg PRN Q4HRS PRN PO TEMP OVER 100.4F OR MILD PAIN Last administered on 09/30/21at 12:45; Start 09/25/21 at 12:30 Aspirin (Aspirin Chewable) 81 mg DAILY PO Last administered on 09/26/21 08:30; Start 09/26/21 at 09:00; Stop 09/28/21 at 17:19; Status DC Atorvastatin Calcium (Lipitor) 10 mg QHS PO Last administered on 10/01/21 20:29; Start 09/25/21 at 21:00 Baclofen (Lioresal) 10 mg BID PO Last administered on 10/02/21 09:05; Start 09/25/21 at 21:00 Diazepam (Valium) 5 mg TID PO Last administered on 10/02/21 09:05; Start 09/25/21 at 14:00 Docusate Sodium (Colace) 100 mg PRN BID PRN PO HARD STOOLS Last administered on 2/13/22at 20:28; Start 09/25/21 at 12:30 Fluticasone Propionate (Flonase) 2 spray DAILY NS Last administered on 10/02/21 09:09; Start 09/26/21 at 09:00 Hydroxyzine HCl (Atarax) 25 mg PRN Q6HRS PRN PO itching Last administered on 10/02/21 07:09; Start 09/25/21 at 12:30 Lidocaine (Lidoderm) 1 patch QHS TP Last administered on 10/01/21 20:28; Start 09/25/21 at 20:00 Linagliptin (Tradjenta) 5 mg DAILY PO Last administered on 10/02/21 09:05; Start 09/25/21 at 13:00 Miconazole Nitrate (Monistat-Derm) 1 crispin TID TP Last administered on 10/01/21 13:05; Start 09/25/21 at 21:00 Midodrine (Proamatine) 2.5 mg PRN 1X PRN PO hypotension Last administered on 09/27/21 08:56; Start 09/25/21 at 12:30 Oxycodone HCl (Roxicodone) 10 mg PRN Q6HRS PRN PO MODERATE-SEVERE PAIN Last administered on 10/02/21 07:09; Start 09/25/21 at 12:30 Diclofenac Sodium (Voltaren) 1 crispin PRN TID PRN TP PAIN CONTROL; Start 09/25/21 at 13:15; Stop 09/25/21 at 18:37; Status DC Insulin Glargine (Lantus Syringe) 4 unit QHS SQ Last administered on 10/02/21 00:17; Start 09/25/21 at 21:00 Losartan Potassium (Cozaar) 25 mg DAILY08 PO Last administered on 10/01/21 08:34; Start 09/26/21 at 08:00 Polyethylene Glycol (miraLAX PACKET) 17 gm DAILY PO Last administered on 10/02/21 09:06; Start 09/25/21 at 14:00 Pregabalin (Lyrica) 100 mg BID PO Last administered on 10/02/21 09:05; Start 09/25/21 at 21:00 Acetaminophen (Tylenol) 650 mg PRN Q6HRS PRN PO MILD PAIN / TEMP > 100.3'F; Start 09/25/21 at 12:30; Status Cancel Al Hydroxide/Mg Hydroxide (Mylanta Plus Xs) 30 ml PRN Q3HRS PRN PO HEARTBURN / GAS; Start 09/25/21 at 12:30 Calcium Carbonate/ Glycine (Tums) 500 mg PRN Q3HRS PRN PO INDIGESTION; Start 09/25/21 at 12:30 Diphenhydramine HCl (Benadryl) 25 mg PRN Q6HRS PRN PO ITCHING; Start 09/25/21 at 12:30 Naloxone HCl (Narcan) 0.1 mg PRN Q2MIN PRN IV SEE COMMENTS; Start 09/25/21 at 12:30 Sodium Chloride (Normal Saline Flush) 3 ml QSHIFT PRN IV AFTER MEDS AND BLOOD DRAWS; Start 09/25/21 at 12:30 Potassium Chloride/Sodium Chloride 1,000 ml @ 75 mls/hr [id number] IV Last administered on 09/26/21at 07:00; Start 09/25/21 at 12:30; Stop 09/26/21 at 17:33; Status DC Magnesium Hydroxide (Milk Of Magnesia) 2,400 mg PRN Q12HR PRN PO CONSTIPATION; Start 09/25/21 at 12:30 Cefazolin Sodium (Ancef) 1 gm Q8H IVP Last administered on 09/26/21at 04:14; Start 09/25/21 at 18:00; Stop 09/26/21 at 10:01; Status DC Fentanyl Citrate (Fentanyl 2ml Vial) 50 mcg PRN Q2HR PRN IVP MODERATE TO SEVERE PAIN Last administered on 10/02/21at 03:27; Start 09/25/21 at 12:30 Dextrose (Dextrose 50%-Water Syringe) 12.5 gm PRN Q15MIN PRN IV SEE COMMENTS; Start 09/25/21 at 12:30 Dextrose (Iv Dextrose 5%) 250 ml PRN Q15MIN PRN IV SEE COMMENTS; Start 09/25/21 at 12:30 Gelatin (Gelfoam Size 100) 1 each STK-MED ONCE .ROUTE ; Start 09/25/21 at 06:37; Stop 09/25/21 at 14:55; Status DC Bupivacaine HCl/ Epinephrine Bitart (Sensorcain-Epi 0.5% Kit) 30 ml STK-MED ONCE .ROUTE ; Start 09/25/21 at 06:37; Stop 09/25/21 at 14:55; Status DC Ketorolac Tromethamine (Toradol Im) 60 mg STK-MED ONCE .ROUTE ; Start 09/25/21 at 06:37; Stop 09/25/21 at 14:55; Status DC Thrombin 20,000 unit STK-MED ONCE TP ; Start 09/25/21 at 06:38; Stop 09/25/21 at 14:55; Status DC Propofol (Diprivan) 200 mg STK-MED ONCE IV ; Start 09/25/21 at 05:54; Stop 09/25/21 at 14:57; Status DC Lidocaine HCl (Lidocaine Pf 2% Vial) 5 ml STK-MED ONCE .ROUTE ; Start 09/25/21 at 05:54; Stop 09/25/21 at 14:57; Status DC Ondansetron HCl (Zofran) 4 mg STK-MED ONCE .ROUTE ; Start 09/25/21 at 05:54; Stop 09/25/21 at 14:57; Status DC Phenylephrine HCl ([place]one-Synephrine Inj) 10 mg STK-MED ONCE .ROUTE ; Start 09/25/21 at 05:54; Stop 09/25/21 at 14:57; Status DC Propofol 50 ml @ As Directed STK-MED ONCE IV ; Start 09/25/21 at 05:54; Stop 09/25/21 at 14:57; Status DC Dexamethasone Sodium Phosphate (Decadron) 4 mg STK-MED ONCE .ROUTE ; Start 09/25/21 at 05:54; Stop 09/25/21 at 14:57; Status DC Fentanyl Citrate (Fentanyl 2ml Vial) 100 mcg STK-MED ONCE .ROUTE ; Start 09/25/21 at 05:54; Stop 09/25/21 at 14:57; Status DC Succinylcholine Chloride ([place]) 200 mg STK-MED ONCE .ROUTE ; Start 09/25/21 at 05:54; Stop 09/25/21 at 14:57; Status DC Remifentanil HCl (Ultiva) 1 mg STK-MED ONCE IV ; Start 09/25/21 at 05:54; Stop 09/25/21 at 14:57; Status DC Glycopyrrolate (Robinul) 1 mg STK-MED ONCE .ROUTE ; Start 09/25/21 at 07:11; Stop 09/25/21 at 15:01; Status DC Propofol 50 ml @ As Directed STK-MED ONCE IV ; Start 09/25/21 at 08:07; Stop 09/25/21 at 15:02; Status DC Ketamine HCl (Ketamine) 50 mg STK-MED ONCE .ROUTE ; Start 09/25/21 at 08:15; Stop 09/25/21 at 15:02; Status DC Hydromorphone HCl (Dilaudid) 2 mg STK-MED ONCE .ROUTE ; Start 09/25/21 at 10:44; Stop 09/25/21 at 15:03; Status DC Fentanyl Citrate (Fentanyl 2ml Vial) 100 mcg STK-MED ONCE .ROUTE ; Start 09/25/21 at 13:26; Stop 09/25/21 at 15:04; Status DC Morphine Sulfate (Morphine Sulfate) 2 mg STK-MED ONCE .ROUTE ; Start 09/25/21 at 14:04; Stop 09/25/21 at 15:05; Status DC Hydromorphone HCl (Dilaudid) 2 mg STK-MED ONCE .ROUTE ; Start 09/25/21 at 14:54; Stop 09/25/21 at 15:06; Status DC Menthol/Methyl Salicylate ([place] Greaseless Cream) 1 crispin PRN Q30MIN PRN TP MUSCLE PAIN Last administered on 10/02/21at 03:35; Start 09/25/21 at 18:45 Mupirocin (Bactroban) 1 crispin BID NS Last administered on 10/02/21at 09:09; Start 09/26/21 at 09:00 Dexamethasone Sodium Phosphate (Decadron) 10 mg 1X ONCE IVP Last administered on 09/26/21at 07:31; Start 09/26/21 at 07:30; Stop 09/26/21 at 07:31; Status DC Cefazolin Sodium 1 gm/Sodium Chloride 1,000 ml @ 1,000 mls/hr 1X ONCE IRR Last administered on 09/26/21at 11:52; Start 09/26/21 at 10:30; Stop 09/26/21 at 11:29; Status DC Cefazolin Sodium (Ancef) 1 gm STK-MED ONCE IVP ; Start 09/26/21 at 10:05; Stop 09/26/21 at 10:06; Status DC Lidocaine HCl (Lidocaine Pf 2% Vial) 5 ml STK-MED ONCE .ROUTE ; Start 09/26/21 at 10:18; Stop 09/26/21 at 10:18; Status DC Ondansetron HCl (Zofran) 4 mg STK-MED ONCE .ROUTE ; Start 09/26/21 at 10:18; Stop 09/26/21 at 10:18; Status DC Propofol (Diprivan) 200 mg STK-MED ONCE IV ; Start 09/26/21 at 10:18; Stop 09/26/21 at 10:19; Status DC Dexamethasone Sodium Phosphate (Decadron) 4 mg STK-MED ONCE .ROUTE ; Start 09/26/21 at 10:18; Stop 09/26/21 at 10:19; Status DC Sevoflurane (Ultane) 30 ml STK-MED ONCE IH ; Start 09/26/21 at 10:18; Stop 09/26/21 at 10:19; Status DC Fentanyl Citrate (Fentanyl 2ml Vial) 100 mcg STK-MED ONCE .ROUTE ; Start 09/26/21 at 10:19; Stop 09/26/21 at 10:19; Status DC Rocuronium [place] (Zemuron) 50 mg STK-MED ONCE .ROUTE ; Start 09/26/21 at 10:19; Stop 09/26/21 at 10:19; Status DC Insulin Human Lispro (HumaLOG VIAL for OP,RR ONLY) 0-10 units PRN Q1HR PRN SQ PER PROTOCOL Last administered on 09/26/21at 15:11; Start 09/26/21 at 10:30; Stop 09/26/21 at 18:00; Status DC Sugammadex Sodium ([place]rid[place]) 200 mg 1X ONCE IVP Last administered on 09/26/21at 10:30; Start 09/26/21 at 10:30; Stop 09/26/21 at 10:31; Status DC Gelatin (Gelfoam Size 100) 1 each STK-MED ONCE .ROUTE Last administered on 09/26/21at 11:52; Start 09/26/21 at 10:30; Stop 09/26/21 at 10:30; Status DC Bupivacaine HCl/ Epinephrine Bitart (Sensorcain-Epi 0.5% Kit) 30 ml STK-MED ONCE .ROUTE ; Start 09/26/21 at 10:30; Stop 09/26/21 at 10:30; Status DC Ketorolac Tromethamine (Toradol Im) 60 mg STK-MED ONCE .ROUTE ; Start 09/26/21 at 10:30; Stop 09/26/21 at 10:30; Status DC Thrombin 20,000 unit STK-MED ONCE TP Last administered on 09/26/21at 11:52; Start 09/26/21 at 10:30; Stop 09/26/21 at 10:31; Status DC Cefazolin Sodium/ Dextrose 50 ml @ As Directed STK-MED ONCE IV ; Start 09/26/21 at 10:32; Stop 09/26/21 at 10:32; Status DC Vancomycin HCl 1 gm/Sodium Chloride 250 ml @ 250 mls/hr PREOP PRN PRN IV PRIOR TO PROCEDURE; Start 09/26/21 at 10:45; Stop 09/26/21 at 14:00; Status DC Cefazolin Sodium/ Dextrose 50 ml @ 100 mls/hr 1X ONCE IV Last administered on 09/26/21at 11:00; Start 09/26/21 at 11:00; Stop 09/26/21 at 11:29; Status DC Dexamethasone Sodium Phosphate (Decadron) 4 mg STK-MED ONCE .ROUTE ; Start 09/26/21 at 11:04; Stop 09/26/21 at 11:04; Status DC Glycopyrrolate (Robinul) 1 mg STK-MED ONCE .ROUTE ; Start 09/26/21 at 11:04; Stop 09/26/21 at 11:04; Status DC Hydromorphone HCl (Dilaudid) 2 mg STK-MED ONCE .ROUTE ; Start 09/26/21 at 11:56; Stop 09/26/21 at 11:56; Status DC Fentanyl Citrate (Fentanyl 2ml Vial) 25 mcg PRN Q5MIN PRN IVP MILD PAIN 1-3; Start 09/26/21 at 14:30; Stop 09/26/21 at 18:15; Status DC Fentanyl Citrate (Fentanyl 2ml Vial) 50 mcg PRN Q5MIN PRN IVP MODERATE PAIN 4- 6; Start 09/26/21 at 14:30; Stop 09/26/21 at 18:15; Status DC Morphine Sulfate (Morphine Sulfate) 1 mg PRN Q10MIN PRN IVP SEVERE PAIN 7-10; Start 09/26/21 at 14:30; Stop 09/26/21 at 18:15; Status DC Ringer's Solution 1,000 ml @ 30 mls/hr Q24H IV Last administered on 09/26/21at 15:18; Start 09/26/21 at 14:30; Stop 09/26/21 at 21:00; Status DC Hydromorphone HCl (Dilaudid) 0.5 mg PRN Q10MIN PRN IVP SEVERE PAIN 7-10, 2nd CHOICE; Start 09/26/21 at 14:30; Stop 09/26/21 at 18:15; Status DC Prochlorperazine Edisylate (Compazine) 5 mg PACU PRN PRN IVP NAUSEA, MRX1; Start 09/26/21 at 14:30; Stop 09/26/21 at 21:00; Status DC Fentanyl Citrate (Fentanyl 2ml Vial) 100 mcg STK-MED ONCE .ROUTE ; Start 09/26/21 at 14:23; Stop 09/26/21 at 14:25; Status DC Fentanyl Citrate (Fentanyl 2ml Vial) 25 mcg PRN Q5MIN PRN IVP MILD PAIN 1-3; Start 09/26/21 at 14:30; Stop 09/27/21 at 14:29; Status UNV Fentanyl Citrate (Fentanyl 2ml Vial) 50 mcg PRN Q5MIN PRN IVP MODERATE PAIN 4- 6; Start 09/26/21 at 14:30; Stop 09/27/21 at 14:29; Status UNV Morphine Sulfate (Morphine Sulfate) 1 mg PRN Q10MIN PRN IVP SEVERE PAIN 7-10; Start 09/26/21 at 14:30; Stop 09/27/21 at 14:29; Status UNV Ringer's Solution 1,000 ml @ 30 mls/hr Q24H IV ; Start 09/26/21 at 14:30; Stop 09/27/21 at 02:29; Status UNV Hydromorphone HCl (Dilaudid) 0.5 mg PRN Q10MIN PRN IVP SEVERE PAIN 7-10, 2nd CHOICE; Start 09/26/21 at 14:30; Stop 09/27/21 at 14:29; Status UNV Prochlorperazine Edisylate (Compazine) 5 mg PACU PRN PRN IVP NAUSEA, MRX1; Start 09/26/21 at 14:30; Stop 09/27/21 at 14:29; Status UNV Dexamethasone Sodium Phosphate (Decadron) 4 mg Q6HRS IVP Last administered on 09/28/21at 05:06; Start 09/26/21 at 18:00; Stop 09/28/21 at 06:00; Status DC Sodium Chloride 1,000 ml @ 100 mls/hr Q10H IV Last administered on 10/02/21at 07:13; Start 09/26/21 at 17:30 Cefazolin Sodium (Ancef) 1 gm Q8HRS IVP ; Start 09/27/21 at 06:00; Stop 09/27/21 at 05:47; Status DC Vancomycin HCl 1 gm/Sodium Chloride 250 ml @ 166.667 mls/hr 1X ONCE IV Last administered on 09/27/21at 06:27; Start 09/27/21 at 06:00; Stop 09/27/21 at 07:29; Status DC Gadoterate Meglumine (Clariscan) 19 ml 1X ONCE IVP Last administered on 09/29/21at 10:32; Start 09/29/21 at 08:15; Stop 09/29/21 at 08:17; Status DC Bisacodyl (Dulcolax Supp) 10 mg PRN DAILY PRN SC CONSTIPATION; Start 09/29/21 at 14:15 Lactulose (Lactulose) 20 gm PRN DAILY PRN PO CONSTIPATION Last administered on 10/01/21at 08:35; Start 09/29/21 at 14:30 Active Scripts Active Dok (Docusate Sodium) 100 Mg Capsule 100 Mg PO PRN BID PRN 30 Days Tylenol (Acetaminophen) 325 Mg Tablet 650 Mg PO PRN Q4HRS PRN 30 Days Valium (Diazepam) 5 Mg Tablet 5 Mg PO TID Atorvastatin Calcium 10 Mg Tablet 10 Mg PO QHS Reported Midodrine Hcl 2.5 Mg Tablet 2.5 Mg PO PRN 1X PRN Aspirin 81 Mg Tab.chew 81 Mg PO DAILY Baclofen 10 Mg Tablet 10 Mg PO BID Lyrica (Pregabalin) 100 Mg Capsule 100 Mg PO BID 30 Days Polyethylene Glycol 3350 2,500 Gm Powder 17 Gm PO DAILY 30 Days Oxycodone HCl 5 Mg Tablet 10 Mg PO PRN Q6HRS PRN Micatin (Miconazole Nitrate) 14 Gm Cream..g. 1 [place] TP TID Tradjenta (Linagliptin) 5 Mg Tablet 5 Mg PO DAILY Lidocaine PATCH (Lidocaine) 1 Each Adh..patch 1 Each TP DAILY REMOVE AFTER 12 HOURS Levemir (Insulin Detemir) 100 Unit/1 Ml Vial 4 Unit SQ HS Hydroxyzine Hcl 25 Mg Tablet 25 Mg PO PRN Q6HRS PRN Fluticasone Propionate Nasal [place] (Fluticasone Propionate) 16 Gm [place].susp 2 [place] NS DAILY Diclofenac Sodium 100 Gm Gel..gram. 100 Gm TP PRN TID PRN Losartan Potassium 100 Mg Tablet 25 Tab PO DAILY08 Vitals/I & O Vital Sign - Last 24 Hours 10/01/21 10/01/21 10/01/21 10/01/21 10:00 11:00 11:21 11:51 Pulse 82 76 Resp 17 18 17 17 B/P (MAP) 99/54 (69) 118/56 (76) Pulse Ox 97 95 97 97 O2 Delivery Room Air Room Air Room Air Room Air O2 Flow Rate 2.0 2.0 10/01/21 10/01/21 10/01/21 10/01/21 12:00 13:00 13:05 13:35 Temp 98.5 98.5 Pulse 74 89 Resp 18 17 18 18 B/P (MAP) 120/53 (75) 115/55 (75) Pulse Ox 97 95 97 97 O2 Delivery Room Air Room Air Room Air Room Air O2 Flow Rate 2.0 2.0 10/01/21 10/01/21 10/01/21 10/01/21 14:00 15:00 16:00 17:00 Temp 98.4 98.4 Pulse 87 87 87 90 Resp 16 16 17 18 B/P (MAP) 103/53 (70) 107/53 (71) 103/46 (65) 109/52 (71) Pulse Ox 96 96 98 94 O2 Delivery Room Air Room Air Room Air Room Air 10/01/21 10/01/21 10/01/21 10/01/21 18:00 18:26 18:56 19:00 Pulse 90 90 Resp 18 17 18 B/P (MAP) 98/49 (65) 107/46 (66) Pulse Ox 94 94 94 O2 Delivery Room Air Room Air Room Air Nasal Cannula O2 Flow Rate 2.0 2.0 10/01/21 10/02/21 10/02/21 10/02/21 20:10 00:27 02:31 04:00 Temp 98.5 98.5 Pulse 100 79 Resp 20 9 B/P (MAP) 103/54 (70) 84/48 (60) Pulse Ox 94 21 21 O2 Delivery Room Air Room Air Room Air Room Air O2 Flow Rate 2.0 10/02/21 10/02/21 10/02/21 05:00 06:12 09:10 Pulse 78 76 84 Resp 10 11 11 B/P (MAP) 81/45 (57) 96/46 (63) 103/51 (68) Pulse Ox 21 21 94 O2 Delivery Room Air Room Air Room Air Intake and Output 10/01/21 10/01/21 10/02/21 15:00 23:00 07:00 Intake Total 720 ml 1900 ml 100 ml Output Total 2050 ml 1450 ml 500 ml Balance -1330 ml 450 ml -400 ml Justifications for Admission Other Justification uncontrolled diabetes TERRY JURADO MD Oct 02, 2021 09:32
--- NOTE | 2021-10-02 11:46 | PDOC ---
[employer] PROGRESS NOTE Date of Service DOS: DATE: 10/02/21 TIME: 11:44 Chief Complaint Chief Complaint Postoperative posterior cervical laminectomy. Fall in July with cervical fracture (at that time he had a anterior cervical laminectomy) Status post cervical hematoma had to return to the OR History of the following; Cervical laminectomy as per above, diabetes, hypertension, hyperlipidemia, arthritis, GERD, left knee arthroplasty and TIA and also IVC filter and prior ACDF at C4 through C5 and C5 through C6 in 07/2021. History of Present Illness History of Present Illness 10/02/2021 Patient seen and examined in the ICU He is still unable to move his legs He is able to move his hands and arms slightly but is very weak at bedside Chart reviewed Discussed with RN I called case management to see if maybe he could go to [facility] sometime soon 10/01 Patient evaluated examined at bedside. Continues to improve. Continue rehab. Plan discussed with bedside RN. 09/30 Patient evaluated examined at bedside. Clinically about the same from yesterday. Continue rehab modalities. Labs stable. Plan discussed with bedside RN. 09/29 Patient evaluated at bedside. Underwent MRI this morning. Symptoms very similar to yesterday but he feels like he is regaining some function. Pain controlled. PT OT. Hemoglovin stable. 09/28 Evaluate examined at bedside. Resting in bed had no complaints to me. Said pain is quite improved. Did okay with transfusion yesterday. Continue current treatments. PT/OT. Discussed with bedside RN. Roxi 09/27 Patient evaluated examined at bedside. Was resting in bed easily awoken able to answer some questions. Some movement in his upper extremities but very limited in lower. Transfuse 1 unit today. Plan discussed with RN. Vitals/I&O Vitals/I&O: Vital Signs Date Time Temp Pulse Resp B/P (MAP) Pulse Ox O2 Delivery O2 Flow Rate FiO2 10/02/21 11:20 98.4 85 24 109/49 (69) 95 Room Air 98.4 10/02/21 00:27 2.0 I & O 10/01/21 10/01/21 10/02/21 15:00 23:00 07:00 Intake Total 720 ml 1900 ml 100 ml Output Total 2050 ml 1450 ml 500 ml Balance -1330 ml 450 ml -400 ml Physical Exam General: Alert, Oriented X3, Cooperative Heart: Regular rate Lungs: Clear Abdomen: Normal bowel sounds, Soft, No tenderness Extremities: No edema, Normal pulses Skin: Other (dressing C,D,I) Labs Labs: Laboratory Tests Test 10/01/21 21:06 10/02/21 05:40 Glucose (Fingerstick) 184 mg/dL (70-99) White Blood Count 14.8 x10^3/uL (4.0-11.0) Red Blood Count 2.95 x10^6/uL (4.30-5.70) Hemoglobin 8.4 g/dL (13.0-17.5) Hematocrit 25.8 % (39.0-53.0) Mean Corpuscular Volume 88 fL (79-100) Mean Corpuscular Hemoglobin 29 pg (25-35) Mean Corpuscular Hemoglobin Concent 33 g/dL (31-37) Red Cell Distribution Width 14.2 % (11.5-14.5) Platelet Count 195 x10^3/uL (140-400) Neutrophils (%) (Auto) 62 % (31-73) Lymphocytes (%) (Auto) 22 % (24-48) Monocytes (%) (Auto) 11 % (0-9) Eosinophils (%) (Auto) 4 % (0-3) Basophils (%) (Auto) 1 % (0-3) Neutrophils # (Auto) 9.2 x10^3/uL (1.8-7.7) Lymphocytes # (Auto) 3.3 x10^3/uL (1.0-4.8) Monocytes # (Auto) 1.6 x10^3/uL (0.0-1.1) Eosinophils # (Auto) 0.6 x10^3/uL (0.0-0.7) Basophils # (Auto) 0.1 x10^3/uL (0.0-0.2) Sodium Level 138 mmol/L (136-145) Potassium Level 4.3 mmol/L (3.5-5.1) Chloride Level 102 mmol/L (98-107) Carbon Dioxide Level 30 mmol/L (21-32) Anion Gap 6 (6-14) Blood Urea Nitrogen 13 mg/dL (8-26) Creatinine 0.8 mg/dL (0.7-1.3) Estimated GFR (Cockcroft-Gault) 118.9 Glucose Level 160 mg/dL (70-99) Calcium Level 7.7 mg/dL (8.5-10.1) Assessment and Plan Assessmemt and Plan Postoperative posterior cervical laminectomy. Fall in July with cervical fracture (at that time he had a anterior cervical laminectomy) Status post cervical hematoma had to return to the OR New UTI History of the following; Cervical laminectomy as per above, diabetes, hypertension, hyperlipidemia, arthritis, GERD, left knee arthroplasty and TIA and also IVC filter and prior ACDF at C4 through C5 and C5 through C6 in 07/2021. Plan ICU monitoring PT OT Wound USP meds DVT prophylaxis Added Levaquin for UTI As needed Valium Continue Lyrica Full code Seems like a good candidate to go to [facility] again Discussed with case management to see if we could arrange it Comment Review of Relevant I have reviewed the following items michelle (where applicable) has been applied. Justifications for Admission Other Justification uncontrolled diabetes MISSY BATES III DO Oct 02, 2021 11:46
[2021-10-02] MEDS: ASCORBIC ACID 500 MG TABLET PO SCH (12:13)
--- NOTE | 2021-10-02 13:30 | PDOC ---
PROGRESS NOTES Date of Service DATE: 10/02/21 TIME: 13:26 Subjective Subjective POD #6 S/P Evacuation of epidural hematoma, s/p cervical laminectomy and fusion 09/25/21 Pain controlled with medication sat on side of bed with nursing today Objective Objective Vital Signs Date Time Temp Pulse Resp B/P (MAP) Pulse Ox O2 Delivery O2 Flow Rate FiO2 10/02/21 13:09 90 11 116/60 (78) 97 Room Air 10/02/21 11:20 98.4 98.4 10/02/21 00:27 2.0 Intake and Output 10/02/21 07:00 Intake Total 2720 ml Output Total 4000 ml Balance -1280 ml Intake Oral 1520 ml IV Total 1200 ml Output Urine Total 4000 ml Physical Exam General: Alert, Oriented X3, Cooperative Neuro: Normal speech, Other (sensation intact in upper and lower extremites, moves upper extremities with 3/5 strength, hand grasps slightly stronger- finger extension improved) Skin: Other (dressing dry and intact) Plan Plan of Care UTI continue current plan plan for transfer to [facility] D/W RN Comment Review of Relevant I have reviewed the following items michelle (where applicable) has been applied. Labs Laboratory Tests Test 09/30/21 21:00 10/01/21 08:10 10/01/21 11:30 10/01/21 21:06 Glucose (Fingerstick) 148 mg/dL (70-99) 184 mg/dL (70-99) White Blood Count 14.2 x10^3/uL (4.0-11.0) Red Blood Count 3.06 x10^6/uL (4.30-5.70) Hemoglobin 8.7 g/dL (13.0-17.5) Hematocrit 26.4 % (39.0-53.0) Mean Corpuscular Volume 86 fL (79-100) Mean Corpuscular Hemoglobin 28 pg (25-35) Mean Corpuscular Hemoglobin Concent 33 g/dL (31-37) Red Cell Distribution Width 14.1 % (11.5-14.5) Platelet Count 169 x10^3/uL (140-400) Neutrophils (%) (Auto) 60 % (31-73) Lymphocytes (%) (Auto) 24 % (24-48) Monocytes (%) (Auto) 11 % (0-9) Eosinophils (%) (Auto) 5 % (0-3) Basophils (%) (Auto) 1 % (0-3) Neutrophils # (Auto) 8.6 x10^3/uL (1.8-7.7) Lymphocytes # (Auto) 3.4 x10^3/uL (1.0-4.8) Monocytes # (Auto) 1.5 x10^3/uL (0.0-1.1) Eosinophils # (Auto) 0.7 x10^3/uL (0.0-0.7) Basophils # (Auto) 0.1 x10^3/uL (0.0-0.2) Sodium Level 137 mmol/L (136-145) Potassium Level 4.2 mmol/L (3.5-5.1) Chloride Level 102 mmol/L (98-107) Carbon Dioxide Level 30 mmol/L (21-32) Anion Gap 5 (6-14) Blood Urea Nitrogen 15 mg/dL (8-26) Creatinine 0.8 mg/dL (0.7-1.3) Estimated GFR (Cockcroft-Gault) 118.9 Glucose Level 146 mg/dL (70-99) Calcium Level 7.9 mg/dL (8.5-10.1) Urine Collection Type Unknown Urine Color Yellow Urine Clarity Clear Urine pH 6.0 (<5.0-8.0) Urine Specific [place] 1.010 (1.000-1.030) Urine Protein Negative mg/dL (NEG-TRACE) Urine Glucose (UA) Negative mg/dL (NEG) Urine Ketones (Stick) Negative mg/dL (NEG) Urine Blood Trace (NEG) Urine Nitrite Negative (NEG) Urine Bilirubin Negative (NEG) Urine Urobilinogen Dipstick 1.0 mg/dL (0.2 mg/dL) Urine Leukocyte Esterase Moderate (NEG) Urine RBC Occ /HPF (0-2) Urine WBC 11-20 /HPF (0-4) Urine Squamous Epithelial Cells Occ /LPF Urine Bacteria Many /HPF (0-FEW) Test 10/02/21 05:40 10/02/21 12:02 White Blood Count 14.8 x10^3/uL (4.0-11.0) Red Blood Count 2.95 x10^6/uL (4.30-5.70) Hemoglobin 8.4 g/dL (13.0-17.5) Hematocrit 25.8 % (39.0-53.0) Mean Corpuscular Volume 88 fL (79-100) Mean Corpuscular Hemoglobin 29 pg (25-35) Mean Corpuscular Hemoglobin Concent 33 g/dL (31-37) Red Cell Distribution Width 14.2 % (11.5-14.5) Platelet Count 195 x10^3/uL (140-400) Neutrophils (%) (Auto) 62 % (31-73) Lymphocytes (%) (Auto) 22 % (24-48) Monocytes (%) (Auto) 11 % (0-9) Eosinophils (%) (Auto) 4 % (0-3) Basophils (%) (Auto) 1 % (0-3) Neutrophils # (Auto) 9.2 x10^3/uL (1.8-7.7) Lymphocytes # (Auto) 3.3 x10^3/uL (1.0-4.8) Monocytes # (Auto) 1.6 x10^3/uL (0.0-1.1) Eosinophils # (Auto) 0.6 x10^3/uL (0.0-0.7) Basophils # (Auto) 0.1 x10^3/uL (0.0-0.2) Sodium Level 138 mmol/L (136-145) Potassium Level 4.3 mmol/L (3.5-5.1) Chloride Level 102 mmol/L (98-107) Carbon Dioxide Level 30 mmol/L (21-32) Anion Gap 6 (6-14) Blood Urea Nitrogen 13 mg/dL (8-26) Creatinine 0.8 mg/dL (0.7-1.3) Estimated GFR (Cockcroft-Gault) 118.9 Glucose Level 160 mg/dL (70-99) Calcium Level 7.7 mg/dL (8.5-10.1) Glucose (Fingerstick) 201 mg/dL (70-99) Laboratory Tests Test 10/01/21 21:06 10/02/21 05:40 10/02/21 12:02 Glucose (Fingerstick) 184 mg/dL (70-99) 201 mg/dL (70-99) White Blood Count 14.8 x10^3/uL (4.0-11.0) Red Blood Count 2.95 x10^6/uL (4.30-5.70) Hemoglobin 8.4 g/dL (13.0-17.5) Hematocrit 25.8 % (39.0-53.0) Mean Corpuscular Volume 88 fL (79-100) Mean Corpuscular Hemoglobin 29 pg (25-35) Mean Corpuscular Hemoglobin Concent 33 g/dL (31-37) Red Cell Distribution Width 14.2 % (11.5-14.5) Platelet Count 195 x10^3/uL (140-400) Neutrophils (%) (Auto) 62 % (31-73) Lymphocytes (%) (Auto) 22 % (24-48) Monocytes (%) (Auto) 11 % (0-9) Eosinophils (%) (Auto) 4 % (0-3) Basophils (%) (Auto) 1 % (0-3) Neutrophils # (Auto) 9.2 x10^3/uL (1.8-7.7) Lymphocytes # (Auto) 3.3 x10^3/uL (1.0-4.8) Monocytes # (Auto) 1.6 x10^3/uL (0.0-1.1) Eosinophils # (Auto) 0.6 x10^3/uL (0.0-0.7) Basophils # (Auto) 0.1 x10^3/uL (0.0-0.2) Sodium Level 138 mmol/L (136-145) Potassium Level 4.3 mmol/L (3.5-5.1) Chloride Level 102 mmol/L (98-107) Carbon Dioxide Level 30 mmol/L (21-32) Anion Gap 6 (6-14) Blood Urea Nitrogen 13 mg/dL (8-26) Creatinine 0.8 mg/dL (0.7-1.3) Estimated GFR (Cockcroft-Gault) 118.9 Glucose Level 160 mg/dL (70-99) Calcium Level 7.7 mg/dL (8.5-10.1) Microbiology 09/30/21 Urine Culture - Preliminary, Resulted Escherichia Coli Medications Current Medications Fentanyl Citrate (Fentanyl 2ml Vial) 25 mcg PRN Q5MIN PRN IVP MILD PAIN 1-3; Start 09/25/21 at 06:00; Stop 09/25/21 at 20:00; Status DC Fentanyl Citrate (Fentanyl 2ml Vial) 50 mcg PRN Q5MIN PRN IVP MODERATE PAIN 4-6 Last administered on 09/25/21at 13:48; Start 09/25/21 at 06:00; Stop 09/25/21 at 20:00; Status DC Morphine Sulfate (Morphine Sulfate) 1 mg PRN Q10MIN PRN IVP SEVERE PAIN 7-10 Last administered on 09/25/21at 14:21; Start 09/25/21 at 06:00; Stop 09/25/21 at 20:00; Status DC Ringer's Solution 1,000 ml @ 30 mls/hr Q24H IV Last administered on 09/25/21at 12:54; Start 09/25/21 at 06:00; Stop 09/25/21 at 17:59; Status DC Hydromorphone HCl (Dilaudid) 0.5 mg PRN Q10MIN PRN IVP SEVERE PAIN 7-10, 2nd CHOICE Last administered on 09/25/21at 16:53; Start 09/25/21 at 06:00; Stop 09/25/21 at 20:00; Status DC Prochlorperazine Edisylate (Compazine) 5 mg PACU PRN PRN IVP NAUSEA, MRX1; Start 09/25/21 at 06:00; Stop 09/25/21 at 20:00; Status DC Cefazolin Sodium 1 gm/Sodium Chloride 1,000 ml @ 1,000 mls/hr 1X ONCE IRR Last administered on 09/25/21at 10:14; Start 09/25/21 at 06:00; Stop 09/25/21 at 06:59; Status DC Cefazolin Sodium/ Dextrose 50 ml @ 100 mls/hr 1X PREOP PRN IV PRIOR TO PROCEDURE Last administered on 09/25/21at 09:30; Start 09/25/21 at 06:00; Stop 09/25/21 at 13:39; Status DC Insulin Human Lispro (HumaLOG VIAL for OP,RR ONLY) 0-10 units PRN Q1HR PRN SQ PER PROTOCOL Last administered on 09/25/21at 17:01; Start 09/25/21 at 07:00; Stop 09/25/21 at 18:00; Status DC Bupivacaine HCl/ Epinephrine Bitart (Sensorcain-Epi 0.5% Kit) 30 ml STK-MED ONCE INJ Last administered on 09/25/21 10:14; Start 09/25/21 at 10:14; Stop 09/25/21 at 10:30; Status DC Ketorolac Tromethamine (Toradol Im) 60 mg STK-MED ONCE INJ Last administered on 09/25/21 10:14; Start 09/25/21 at 10:14; Stop 09/25/21 at 10:30; Status DC Thrombin 20,000 unit STK-MED ONCE TP Last administered on 09/25/21at 10:14; Start 09/25/21 at 10:14; Stop 09/25/21 at 10:30; Status DC Gelatin (Gelfoam Size 100) 1 each STK-MED ONCE TP Last administered on 09/25/21 10:14; Start 09/25/21 at 10:14; Stop 09/25/21 at 10:30; Status DC Acetaminophen (Tylenol) 650 mg PRN Q4HRS PRN PO TEMP OVER 100.4F OR MILD PAIN Last administered on 09/30/21at 12:45; Start 09/25/21 at 12:30 Aspirin (Aspirin Chewable) 81 mg DAILY PO Last administered on 09/26/21 08:30; Start 09/26/21 at 09:00; Stop 09/28/21 at 17:19; Status DC Atorvastatin Calcium (Lipitor) 10 mg QHS PO Last administered on 10/01/21 20:29; Start 09/25/21 at 21:00 Baclofen (Lioresal) 10 mg BID PO Last administered on 10/02/21 09:05; Start 09/25/21 at 21:00 Diazepam (Valium) 5 mg TID PO Last administered on 10/02/21 09:05; Start 09/25/21 at 14:00 Docusate Sodium (Colace) 100 mg PRN BID PRN PO HARD STOOLS Last administered on 10/01/21 20:28; Start 09/25/21 at 12:30 Fluticasone Propionate (Flonase) 2 spray DAILY NS Last administered on 10/02/21 09:09; Start 09/26/21 at 09:00 Hydroxyzine HCl (Atarax) 25 mg PRN Q6HRS PRN PO itching Last administered on 10/02/21 07:09; Start 09/25/21 at 12:30 Lidocaine (Lidoderm) 1 patch QHS TP Last administered on 10/01/21 20:28; Start 09/25/21 at 20:00 Linagliptin (Tradjenta) 5 mg DAILY PO Last administered on 10/02/21 09:05; Start 09/25/21 at 13:00 Miconazole Nitrate (Monistat-Derm) 1 crispin TID TP Last administered on 10/02/21 09:00; Start 09/25/21 at 21:00 Midodrine (Proamatine) 2.5 mg PRN 1X PRN PO hypotension Last administered on 09/27/21 08:56; Start 09/25/21 at 12:30 Oxycodone HCl (Roxicodone) 10 mg PRN Q6HRS PRN PO MODERATE-SEVERE PAIN Last administered on 10/02/21 12:14; Start 09/25/21 at 12:30 Diclofenac Sodium (Voltaren) 1 crispin PRN TID PRN TP PAIN CONTROL; Start 09/25/21 at 13:15; Stop 09/25/21 at 18:37; Status DC Insulin Glargine (Lantus Syringe) 4 unit QHS SQ Last administered on 10/02/21 00:17; Start 09/25/21 at 21:00 Losartan Potassium (Cozaar) 25 mg DAILY08 PO Last administered on 10/01/21 08:34; Start 09/26/21 at 08:00 Polyethylene Glycol (miraLAX PACKET) 17 gm DAILY PO Last administered on 10/02/21 09:06; Start 09/25/21 at 14:00 Pregabalin (Lyrica) 100 mg BID PO Last administered on 10/02/21 09:05; Start 09/25/21 at 21:00 Acetaminophen (Tylenol) 650 mg PRN Q6HRS PRN PO MILD PAIN / TEMP > 100.3'F; Start 09/25/21 at 12:30; Status Cancel Al Hydroxide/Mg Hydroxide (Mylanta Plus Xs) 30 ml PRN Q3HRS PRN PO HEARTBURN / GAS; Start 09/25/21 at 12:30 Calcium Carbonate/ Glycine (Tums) 500 mg PRN Q3HRS PRN PO INDIGESTION; Start 09/25/21 at 12:30 Diphenhydramine HCl (Benadryl) 25 mg PRN Q6HRS PRN PO ITCHING; Start 09/25/21 at 12:30 Naloxone HCl (Narcan) 0.1 mg PRN Q2MIN PRN IV SEE COMMENTS; Start 09/25/21 at 12:30 Sodium Chloride (Normal Saline Flush) 3 ml QSHIFT PRN IV AFTER MEDS AND BLOOD DRAWS; Start 09/25/21 at 12:30 Potassium Chloride/Sodium Chloride 1,000 ml @ 75 mls/hr [id number] IV Last administered on 09/26/21at 07:00; Start 09/25/21 at 12:30; Stop 09/26/21 at 17:33; Status DC Magnesium Hydroxide (Milk Of Magnesia) 2,400 mg PRN Q12HR PRN PO CONSTIPATION; Start 09/25/21 at 12:30 Cefazolin Sodium (Ancef) 1 gm Q8H IVP Last administered on 09/26/21at 04:14; Start 09/25/21 at 18:00; Stop 09/26/21 at 10:01; Status DC Fentanyl Citrate (Fentanyl 2ml Vial) 50 mcg PRN Q2HR PRN IVP MODERATE TO SEVERE PAIN Last administered on 10/02/21at 03:27; Start 09/25/21 at 12:30 Dextrose (Dextrose 50%-Water Syringe) 12.5 gm PRN Q15MIN PRN IV SEE COMMENTS; Start 09/25/21 at 12:30 Dextrose (Iv Dextrose 5%) 250 ml PRN Q15MIN PRN IV SEE COMMENTS; Start 09/25/21 at 12:30 Gelatin (Gelfoam Size 100) 1 each STK-MED ONCE .ROUTE ; Start 09/25/21 at 06:37; Stop 09/25/21 at 14:55; Status DC Bupivacaine HCl/ Epinephrine Bitart (Sensorcain-Epi 0.5% Kit) 30 ml STK-MED ONCE .ROUTE ; Start 09/25/21 at 06:37; Stop 09/25/21 at 14:55; Status DC Ketorolac Tromethamine (Toradol Im) 60 mg STK-MED ONCE .ROUTE ; Start 09/25/21 at 06:37; Stop 09/25/21 at 14:55; Status DC Thrombin 20,000 unit STK-MED ONCE TP ; Start 09/25/21 at 06:38; Stop 09/25/21 at 14:55; Status DC Propofol (Diprivan) 200 mg STK-MED ONCE IV ; Start 09/25/21 at 05:54; Stop 09/25/21 at 14:57; Status DC Lidocaine HCl (Lidocaine Pf 2% Vial) 5 ml STK-MED ONCE .ROUTE ; Start 09/25/21 at 05:54; Stop 09/25/21 at 14:57; Status DC Ondansetron HCl (Zofran) 4 mg STK-MED ONCE .ROUTE ; Start 09/25/21 at 05:54; Stop 09/25/21 at 14:57; Status DC Phenylephrine HCl (Ramone-Synephrine Inj) 10 mg STK-MED ONCE .ROUTE ; Start 09/25/21 at 05:54; Stop 09/25/21 at 14:57; Status DC Propofol 50 ml @ As Directed STK-MED ONCE IV ; Start 09/25/21 at 05:54; Stop 09/25 at 14:57; Status DC Dexamethasone Sodium Phosphate (Decadron) 4 mg STK-MED ONCE .ROUTE ; Start 09/25/21 at 05:54; Stop 09/25/21 at 14:57; Status DC Fentanyl Citrate (Fentanyl 2ml Vial) 100 mcg STK-MED ONCE .ROUTE ; Start 09/25/21 at 05:54; Stop 09/25/21 at 14:57; Status DC Succinylcholine Chloride (Anectine) 200 mg STK-MED ONCE .ROUTE ; Start 09/25/21 at 05:54; Stop 09/25/21 at 14:57; Status DC Remifentanil HCl (Ultiva) 1 mg STK-MED ONCE IV ; Start 09/25/21 at 05:54; Stop 09/25/21 at 14:57; Status DC Glycopyrrolate (Robinul) 1 mg STK-MED ONCE .ROUTE ; Start 09/25/21 at 07:11; Stop 09/25/21 at 15:01; Status DC Propofol 50 ml @ As Directed STK-MED ONCE IV ; Start 09/25/21 at 08:07; Stop 09/25/21 at 15:02; Status DC Ketamine HCl (Ketamine) 50 mg STK-MED ONCE .ROUTE ; Start 09/25/21 at 08:15; Stop 09/25/21 at 15:02; Status DC Hydromorphone HCl (Dilaudid) 2 mg STK-MED ONCE .ROUTE ; Start 09/25/21 at 10:44; Stop 09/25/21 at 15:03; Status DC Fentanyl Citrate (Fentanyl 2ml Vial) 100 mcg STK-MED ONCE .ROUTE ; Start 09/25/21 at 13:26; Stop 09/25/21 at 15:04; Status DC Morphine Sulfate (Morphine Sulfate) 2 mg STK-MED ONCE .ROUTE ; Start 09/25/21 at 14:04; Stop 09/25/21 at 15:05; Status DC Hydromorphone HCl (Dilaudid) 2 mg STK-MED ONCE .ROUTE ; Start 09/25/21 at 14:54; Stop 09/25/21 at 15:06; Status DC Menthol/Methyl Salicylate ([place] Greaseless Cream) 1 crispin PRN Q30MIN PRN TP MUSCLE PAIN Last administered on 10/02/21at 03:35; Start 09/25/21 at 18:45 Mupirocin (Bactroban) 1 crispin BID NS Last administered on 10/02/21at 09:09; Start 09/26/21 at 09:00 Dexamethasone Sodium Phosphate (Decadron) 10 mg 1X ONCE IVP Last administered on 09/26/21at 07:31; Start 09/26/21 at 07:30; Stop 09/26/21 at 07:31; Status DC Cefazolin Sodium 1 gm/Sodium Chloride 1,000 ml @ 1,000 mls/hr 1X ONCE IRR Last administered on 09/26/21at 11:52; Start 09/26/21 at 10:30; Stop 09/26/21 at 11:29; Status DC Cefazolin Sodium (Ancef) 1 gm STK-MED ONCE IVP ; Start 09/26/21 at 10:05; Stop 09/26/21 at 10:06; Status DC Lidocaine HCl (Lidocaine Pf 2% Vial) 5 ml STK-MED ONCE .ROUTE ; Start 09/26/21 at 10:18; Stop 09/26/21 at 10:18; Status DC Ondansetron HCl (Zofran) 4 mg STK-MED ONCE .ROUTE ; Start 09/26/21 at 10:18; Stop 09/26/21 at 10:18; Status DC Propofol (Diprivan) 200 mg STK-MED ONCE IV ; Start 09/26/21 at 10:18; Stop 09/26/21 at 10:19; Status DC Dexamethasone Sodium Phosphate (Decadron) 4 mg STK-MED ONCE .ROUTE ; Start 09/26/21 at 10:18; Stop 09/26/21 at 10:19; Status DC Sevoflurane (Ultane) 30 ml STK-MED ONCE IH ; Start 09/26/21 at 10:18; Stop 09/26/21 at 10:19; Status DC Fentanyl Citrate (Fentanyl 2ml Vial) 100 mcg STK-MED ONCE .ROUTE ; Start 09/26/21 at 10:19; Stop 09/26/21 at 10:19; Status DC Rocuronium [place] (Zemuron) 50 mg STK-MED ONCE .ROUTE ; Start 09/26/21 at 10:19; Stop 09/26/21 at 10:19; Status DC Insulin Human Lispro (HumaLOG VIAL for OP,RR ONLY) 0-10 units PRN Q1HR PRN SQ PER PROTOCOL Last administered on 09/26/21at 15:11; Start 09/26/21 at 10:30; Stop 09/26/21 at 18:00; Status DC Sugammadex Sodium (Bridion) 200 mg 1X ONCE IVP Last administered on 09/26/21at 10:30; Start 09/26/21 at 10:30; Stop 09/26/21 at 10:31; Status DC Gelatin (Gelfoam Size 100) 1 each STK-MED ONCE .ROUTE Last administered on 09/26/21at 11:52; Start 09/26/21 at 10:30; Stop 09/26/21 at 10:30; Status DC Bupivacaine HCl/ Epinephrine Bitart (Sensorcain-Epi 0.5% Kit) 30 ml STK-MED ONCE .ROUTE ; Start 09/26/21 at 10:30; Stop 09/26/21 at 10:30; Status DC Ketorolac Tromethamine (Toradol Im) 60 mg STK-MED ONCE .ROUTE ; Start 09/26/21 at 10:30; Stop 09/26/21 at 10:30; Status DC Thrombin 20,000 unit STK-MED ONCE TP Last administered on 09/26/21at 11:52; Start 09/26/21 at 10:30; Stop 09/26/21 at 10:31; Status DC Cefazolin Sodium/ Dextrose 50 ml @ As Directed STK-MED ONCE IV ; Start 09/26/21 at 10:32; Stop 09/26/21 at 10:32; Status DC Vancomycin HCl 1 gm/Sodium Chloride 250 ml @ 250 mls/hr PREOP PRN PRN IV PRIOR TO PROCEDURE; Start 09/26/21 at 10:45; Stop 09/26/21 at 14:00; Status DC Cefazolin Sodium/ Dextrose 50 ml @ 100 mls/hr 1X ONCE IV Last administered on 09/26/21at 11:00; Start 09/26/21 at 11:00; Stop 09/26/21 at 11:29; Status DC Dexamethasone Sodium Phosphate (Decadron) 4 mg STK-MED ONCE .ROUTE ; Start 09/26/21 at 11:04; Stop 09/26/21 at 11:04; Status DC Glycopyrrolate (Robinul) 1 mg STK-MED ONCE .ROUTE ; Start 09/26/21 at 11:04; Stop 09/26/21 at 11:04; Status DC Hydromorphone HCl (Dilaudid) 2 mg STK-MED ONCE .ROUTE ; Start 09/26/21 at 11:56; Stop 09/26/21 at 11:56; Status DC Fentanyl Citrate (Fentanyl 2ml Vial) 25 mcg PRN Q5MIN PRN IVP MILD PAIN 1-3; Start 09/26/21 at 14:30; Stop 09/26/21 at 18:15; Status DC Fentanyl Citrate (Fentanyl 2ml Vial) 50 mcg PRN Q5MIN PRN IVP MODERATE PAIN 4- 6; Start 09/26/21 at 14:30; Stop 09/26/21 at 18:15; Status DC Morphine Sulfate (Morphine Sulfate) 1 mg PRN Q10MIN PRN IVP SEVERE PAIN 7-10; Start 09/26/21 at 14:30; Stop 09/26/21 at 18:15; Status DC Ringer's Solution 1,000 ml @ 30 mls/hr Q24H IV Last administered on 09/26/21at 15:18; Start 09/26/21 at 14:30; Stop 09/26/21 at 21:00; Status DC Hydromorphone HCl (Dilaudid) 0.5 mg PRN Q10MIN PRN IVP SEVERE PAIN 7-10, 2nd CHOICE; Start 09/26/21 at 14:30; Stop 09/26/21 at 18:15; Status DC Prochlorperazine Edisylate (Compazine) 5 mg PACU PRN PRN IVP NAUSEA, MRX1; Start 09/26/21 at 14:30; Stop 09/26/21 at 21:00; Status DC Fentanyl Citrate (Fentanyl 2ml Vial) 100 mcg STK-MED ONCE .ROUTE ; Start 09/26/21 at 14:23; Stop 09/26/21 at 14:25; Status DC Fentanyl Citrate (Fentanyl 2ml Vial) 25 mcg PRN Q5MIN PRN IVP MILD PAIN 1-3; Start 09/26/21 at 14:30; Stop 09/27/21 at 14:29; Status UNV Fentanyl Citrate (Fentanyl 2ml Vial) 50 mcg PRN Q5MIN PRN IVP MODERATE PAIN 4- 6; Start 09/26/21 at 14:30; Stop 09/27/21 at 14:29; Status UNV Morphine Sulfate (Morphine Sulfate) 1 mg PRN Q10MIN PRN IVP SEVERE PAIN 7-10; Start 09/26/21 at 14:30; Stop 09/27/21 at 14:29; Status UNV Ringer's Solution 1,000 ml @ 30 mls/hr Q24H IV ; Start 09/26/21 at 14:30; Stop 09/27/21 at 02:29; Status UNV Hydromorphone HCl (Dilaudid) 0.5 mg PRN Q10MIN PRN IVP SEVERE PAIN 7-10, 2nd CHOICE; Start 09/26/21 at 14:30; Stop 09/27/21 at 14:29; Status UNV Prochlorperazine Edisylate (Compazine) 5 mg PACU PRN PRN IVP NAUSEA, MRX1; Start 09/26/21 at 14:30; Stop 09/27/21 at 14:29; Status UNV Dexamethasone Sodium Phosphate (Decadron) 4 mg Q6HRS IVP Last administered on 09/28/21at 05:06; Start 09/26/21 at 18:00; Stop 09/28/21 at 06:00; Status DC Sodium Chloride 1,000 ml @ 100 mls/hr Q10H IV Last administered on 10/02/21at 07:13; Start 09/26/21 at 17:30 Cefazolin Sodium (Ancef) 1 gm Q8HRS IVP ; Start 09/27/21 at 06:00; Stop 09/27/21 at 05:47; Status DC Vancomycin HCl 1 gm/Sodium Chloride 250 ml @ 166.667 mls/hr 1X ONCE IV Last administered on 09/27/21at 06:27; Start 09/27/21 at 06:00; Stop 09/27/21 at 07:29; Status DC Gadoterate Meglumine (Clariscan) 19 ml 1X ONCE IVP Last administered on 09/29/21at 10:32; Start 09/29/21 at 08:15; Stop 09/29/21 at 08:17; Status DC Bisacodyl (Dulcolax Supp) 10 mg PRN DAILY PRN [place] CONSTIPATION; Start 09/29/21 at 14:15 Lactulose (Lactulose) 20 gm PRN DAILY PRN PO CONSTIPATION Last administered on 10/01/21at 08:35; Start 09/29/21 at 14:30 Ascorbic Acid (Vitamin C) 500 mg DAILY PO Last administered on 10/02/21at 12:13; Start 10/02/21 at 10:00 Levofloxacin/ Dextrose 100 ml @ 100 mls/hr Q24H IV Last administered on 10/02/21at 12:15; Start 10/02/21 at 12:00 Active Scripts Active Dok (Docusate Sodium) 100 Mg Capsule 100 Mg PO PRN BID PRN 30 Days Tylenol (Acetaminophen) 325 Mg Tablet 650 Mg PO PRN Q4HRS PRN 30 Days Valium (Diazepam) 5 Mg Tablet 5 Mg PO TID Atorvastatin Calcium 10 Mg Tablet 10 Mg PO QHS Reported Midodrine Hcl 2.5 Mg Tablet 2.5 Mg PO PRN 1X PRN Aspirin 81 Mg Tab.chew 81 Mg PO DAILY Baclofen 10 Mg Tablet 10 Mg PO BID Lyrica (Pregabalin) 100 Mg Capsule 100 Mg PO BID 30 Days Polyethylene Glycol 3350 2,500 Gm Powder 17 Gm PO DAILY 30 Days Oxycodone HCl 5 Mg Tablet 10 Mg PO PRN Q6HRS PRN Micatin (Miconazole Nitrate) 14 Gm Cream..g. 1 [place] TP TID Tradjenta (Linagliptin) 5 Mg Tablet 5 Mg PO DAILY Lidocaine PATCH (Lidocaine) 1 Each Adh..patch 1 Each TP DAILY REMOVE AFTER 12 HOURS Levemir (Insulin Detemir) 100 Unit/1 Ml Vial 4 Unit SQ HS Hydroxyzine Hcl 25 Mg Tablet 25 Mg PO PRN Q6HRS PRN Fluticasone Propionate Nasal [place] (Fluticasone Propionate) 16 Gm [place].susp 2 [place] NS DAILY Diclofenac Sodium 100 Gm Gel..gram. 100 Gm TP PRN TID PRN Losartan Potassium 100 Mg Tablet 25 Tab PO DAILY08 Vitals/I & O Vital Sign - Last 24 Hours 10/01/21 10/01/21 10/01/21 10/01/21 13:35 14:00 15:00 16:00 Temp 98.4 98.4 Pulse 87 87 87 Resp 18 16 16 17 B/P (MAP) 103/53 (70) 107/53 (71) 103/46 (65) Pulse Ox 97 96 96 98 O2 Delivery Room Air Room Air Room Air Room Air O2 Flow Rate 2.0 10/01/21 10/01/21 10/01/21 10/01/21 17:00 18:00 18:26 18:56 Pulse 90 90 Resp 18 18 17 B/P (MAP) 109/52 (71) 98/49 (65) Pulse Ox 94 94 94 94 O2 Delivery Room Air Room Air Room Air Room Air O2 Flow Rate 2.0 2.0 10/01/21 10/01/21 10/02/21 10/02/21 19:00 20:10 00:27 02:31 Pulse 90 100 Resp 18 20 B/P (MAP) 107/46 (66) 103/54 (70) Pulse Ox 94 21 O2 Delivery Nasal Cannula Room Air Room Air Room Air O2 Flow Rate 2.0 10/02/21 10/02/21 10/02/21 10/02/21 04:00 05:00 06:12 08:00 Temp 98.5 98.5 Pulse 79 78 76 88 Resp 9 10 11 B/P (MAP) 84/48 (60) 81/45 (57) 96/46 (63) 95/48 Pulse Ox 21 21 21 O2 Delivery Room Air Room Air Room Air 10/02/21 10/02/21 10/02/21 10/02/21 09:00 09:10 10:00 11:20 Temp 98.4 98.4 Pulse 84 88 85 Resp 11 13 24 B/P (MAP) 103/51 (68) 95/48 (64) 109/49 (69) Pulse Ox 94 95 95 O2 Delivery Room Air Room Air Room Air Room Air 10/02/21 10/02/21 10/02/21 10/02/21 12:03 12:14 13:00 13:09 Pulse 82 90 Resp 15 20 11 B/P (MAP) 103/57 (72) 116/60 (78) Pulse Ox 95 97 97 O2 Delivery Room Air Room Air Room Air Room Air Intake and Output 10/01/21 10/01/21 10/02/21 15:00 23:00 07:00 Intake Total 720 ml 1900 ml 100 ml Output Total 2050 ml 1450 ml 500 ml Balance -1330 ml 450 ml -400 ml Justifications for Admission Other Justification uncontrolled diabetes KELLEN BRUNO MD Oct 02, 2021 13:29
[2021-10-02] MEDS: ACETAMINOPHEN 325 MG TABLET. PO PRN (14:14)
[2021-10-02] MEDS: ATORVASTATIN CALCIUM 10 MG TABLET. PO SCH (21:01)
[2021-10-02] MEDS: LIDOCAINE (700MG/PATCH) PATCH. TP SCH (21:04)
[2021-10-03] MEDS: oxyCODONE IR 5 MG TABLET PO PRN ×3 (03:14→17:20)
[2021-10-03] MEDS: IV 1/2 NORMAL SALINE 1,000 ML IV SCH ×3 (03:20→22:53)
[2021-10-03 04:36] VITALS: BP 106/60
[2021-10-03 05:32] LABS: BASO % 0 % (0-3); EOS # 0.5 x10^3/uL (0.0-0.7); EOS % 4 % (0-3); HEMATOCRIT 25.7 % (39.0-53.0); HEMOGLOBIN 8.3 g/dL (13.0-17.5); LYMPH # 2.5 x10^3/uL (1.0-4.8); LYMPH % 18 % (24-48); MEAN CORPUSCULAR HEMOGLOBIN 28 pg (25-35); MEAN CORPUSCULAR HGB CONC 32 g/dL (31-37); MEAN CORPUSCULAR VOLUME 87 fL (79-100); MONO # 1.5 x10^3/uL (0.0-1.1); MONO % 11 % (0-9); NEUT # 9.2 x10^3/uL (1.8-7.7); NEUT % 67 % (31-73); PLATELET COUNT 217 x10^3/uL (140-400); RED BLOOD COUNT 2.96 x10^6/uL (4.30-5.70); RED CELL DISTRIBUTION WIDTH 14.4 % (11.5-14.5); WHITE BLOOD COUNT 13.7 x10^3/uL (4.0-11.0)
[2021-10-03 05:35] LABS: CALCIUM 7.7 mg/dL (8.5-10.1); CREATININE 0.8 mg/dL (0.7-1.3); GFR 118.9; POTASSIUM 4.4 mmol/L (3.5-5.1)
[2021-10-03] MEDS: fentaNYL PF VIAL 100 MCG/2 ML VIAL IVP PRN ×4 (06:43→22:53)
[2021-10-03 08:00] VITALS: BP 92/56
[2021-10-03] MEDS: LOSARTAN POTASSIUM 25 MG TABLET. PO SCH (08:00)
[2021-10-03] MEDS: BACLOFEN 10 MG TABLET. PO SCH ×2 (08:02→19:25)
[2021-10-03] MEDS: POLYETHYLENE GLYCOL 3350 17 GM PACKET. PO SCH (08:02)
[2021-10-03] MEDS: LINAGLIPTIN 5 MG TABLET PO SCH (08:03)
[2021-10-03] MEDS: PREGABALIN 50 MG CAPSULE PO SCH ×2 (08:03→19:25)
[2021-10-03] MEDS: ASCORBIC ACID 500 MG TABLET PO SCH (08:03)
[2021-10-03] MEDS: MICONAZOLE NITRATE 2% TOPICAL CREAM 30GM TUBE. TP SCH ×4 (08:03→19:47)
[2021-10-03] MEDS: FLUTICASONE 50MCG/NASAL SPRAY 16GM BOTTLE. NS SCH (08:03)
[2021-10-03] MEDS: diazePAM 5 MG TABLET PO SCH ×4 (08:03→19:25)
[2021-10-03] MEDS: MUPIROCIN 2 % OINTMENT 22GM TUBE. NS SCH ×2 (08:04→19:47)
--- NOTE | 2021-10-03 11:04 | PDOC ---
[employer] PROGRESS NOTE Date of Service DOS: DATE: 10/03/21 TIME: 11:03 Chief Complaint Chief Complaint Postoperative posterior cervical laminectomy. Fall in July with cervical fracture (at that time he had a anterior cervical laminectomy) Status post cervical hematoma had to return to the OR History of the following; Cervical laminectomy as per above, diabetes, hypertension, hyperlipidemia, arthritis, GERD, left knee arthroplasty and TIA and also IVC filter and prior ACDF at C4 through C5 and C5 through C6 in 07/2021. History of Present Illness History of Present Illness 10/03/2021 Patient seen and examined in the ICU Chart reviewed Discussed with RN Called case management We are hoping to get the patient transferred to [facility] rehab if possible (they are evaluating his admission criteria to rehab) 10/02/2021 Patient seen and examined in the ICU He is still unable to move his legs He is able to move his hands and arms slightly but is very weak at bedside Chart reviewed Discussed with RN I called case management to see if maybe he could go to [facility] rehab sometime soon 10/01 Patient evaluated examined at bedside. Continues to improve. Continue rehab. Plan discussed with bedside RN. 09/30 Patient evaluated examined at bedside. Clinically about the same from yesterday. Continue rehab modalities. Labs stable. Plan discussed with bedside RN. 09/29 Patient evaluated at bedside. Underwent MRI this morning. Symptoms very similar to yesterday but he feels like he is regaining some function. Pain co ntrolled. PT OT. Hemoglovin stable. 09/28 Evaluate examined at bedside. Resting in bed had no complaints to me. Said pain is quite improved. Did okay with transfusion yesterday. Continue current treatments. PT/OT. Discussed with bedside RN. Roxi 09/27 Patient evaluated examined at bedside. Was resting in bed easily awoken able to answer some questions. Some movement in his upper extremities but very limited in lower. Transfuse 1 unit today. Plan discussed with RN. Vitals/I&O Vitals/I&O: Vital Signs Date Time Temp Pulse Resp B/P (MAP) Pulse Ox O2 Delivery O2 Flow Rate FiO2 10/03/21 08:00 97.9 83 16 92/56 (68) 98 Room Air 97.9 10/03/21 03:14 2.0 I & O 10/02/21 10/02/21 10/03/21 14:59 22:59 06:59 Intake Total 180 ml 2329.3 ml 1200 ml Output Total 1825 ml 500 ml 1650 ml Balance -1645 ml 1829.3 ml -450 ml Physical Exam General: Alert, Oriented X3, Cooperative Heart: Regular rate Lungs: Clear Abdomen: Normal bowel sounds, Soft, No tenderness Extremities: No edema, Normal pulses Skin: Other (dressing dry and intact) Labs Labs: Laboratory Tests Test 10/02/21 12:02 10/02/21 17:44 10/02/21 23:05 10/03/21 04:55 Glucose (Fingerstick) 201 mg/dL (70-99) 165 mg/dL (70-99) 153 mg/dL (70-99) White Blood Count 13.7 x10^3/uL (4.0-11.0) Red Blood Count 2.96 x10^6/uL (4.30-5.70) Hemoglobin 8.3 g/dL (13.0-17.5) Hematocrit 25.7 % (39.0-53.0) Mean Corpuscular Volume 87 fL (79-100) Mean Corpuscular Hemoglobin 28 pg (25-35) Mean Corpuscular Hemoglobin Concent 32 g/dL (31-37) Red Cell Distribution Width 14.4 % (11.5-14.5) Platelet Count 217 x10^3/uL (140-400) Neutrophils (%) (Auto) 67 % (31-73) Lymphocytes (%) (Auto) 18 % (24-48) Monocytes (%) (Auto) 11 % (0-9) Eosinophils (%) (Auto) 4 % (0-3) Basophils (%) (Auto) 0 % (0-3) Neutrophils # (Auto) 9.2 x10^3/uL (1.8-7.7) Lymphocytes # (Auto) 2.5 x10^3/uL (1.0-4.8) Monocytes # (Auto) 1.5 x10^3/uL (0.0-1.1) Eosinophils # (Auto) 0.5 x10^3/uL (0.0-0.7) Basophils # (Auto) 0.0 x10^3/uL (0.0-0.2) Sodium Level 137 mmol/L (136-145) Potassium Level 4.4 mmol/L (3.5-5.1) Chloride Level 104 mmol/L (98-107) Carbon Dioxide Level 30 mmol/L (21-32) Anion Gap 3 (6-14) Blood Urea Nitrogen 13 mg/dL (8-26) Creatinine 0.8 mg/dL (0.7-1.3) Estimated GFR (Cockcroft-Gault) 118.9 Glucose Level 161 mg/dL (70-99) Calcium Level 7.7 mg/dL (8.5-10.1) Assessment and Plan Assessmemt and Plan Postoperative posterior cervical laminectomy. Fall in July with cervical fracture (at that time he had a anterior cervical laminectomy) Status post cervical hematoma had to return to the OR New UTI History of the following; Cervical laminectomy as per above, diabetes, hypertension, hyperlipidemia, arthritis, GERD, left knee arthroplasty and TIA and also IVC filter and prior ACDF at C4 through C5 and C5 through C6 in 07/2021. Plan ICU monitoring PT OT Wound detention meds DVT prophylaxis Added Levaquin for UTI As needed Valium Continue Lyrica Full code Seems like a good candidate to go to [facility] rehab again Discussed with case management to see if we could arrange it (they are evaluating his admission criteria) Comment Review of Relevant I have reviewed the following items michelle (where applicable) has been applied. Medications: Current Medications Medications (Trade) Dose Ordered Sig/Vernon Route PRN Reason Start Time Stop Time Status Last Admin Dose Admin Levofloxacin/ Dextrose 100 ml @ 100 mls/hr Q24H IV 10/02/21 12:00 10/03/21 08:57 DC 10/02/21 12:15 Justifications for Admission Other Justification uncontrolled diabetes MISSY BATES III DO Oct 03, 2021 11:04
--- NOTE | 2021-10-03 11:22 | PDOC ---
PROGRESS NOTES Date of Service DATE: 10/03/21 TIME: 11:13 Subjective Subjective No new complaints. Objective Objective Vital Signs Date Time Temp Pulse Resp B/P (MAP) Pulse Ox O2 Delivery O2 Flow Rate FiO2 10/03/21 08:00 97.9 83 16 92/56 (68) 98 Room Air 97.9 10/03/21 03:14 2.0 Intake and Output 10/03/21 07:00 Intake Total 3709.3 ml Output Total 3975 ml Balance -265.7 ml Intake Oral 1480 ml IV Total 2229.3 ml Output Urine Total 3975 ml # Bowel Movements 1 Physical Exam Physical Exam He is alert,supine in bed with head end propped up and he had stiffness of his shoulders and no change with his neurological status. Plan Plan of Care Awaiting rehab unit transfer when medically stable. Comment Review of Relevant I have reviewed the following items michelle (where applicable) has been applied. Labs Laboratory Tests Test 10/01/21 11:30 10/01/21 21:06 10/02/21 05:40 10/02/21 12:02 Urine Collection Type Unknown Urine Color Yellow Urine Clarity Clear Urine pH 6.0 (<5.0-8.0) Urine Specific [place] 1.010 (1.000-1.030) Urine Protein Negative mg/dL (NEG-TRACE) Urine Glucose (UA) Negative mg/dL (NEG) Urine Ketones (Stick) Negative mg/dL (NEG) Urine Blood Trace (NEG) Urine Nitrite Negative (NEG) Urine Bilirubin Negative (NEG) Urine Urobilinogen Dipstick 1.0 mg/dL (0.2 mg/dL) Urine Leukocyte Esterase Moderate (NEG) Urine RBC Occ /HPF (0-2) Urine WBC 11-20 /HPF (0-4) Urine Squamous Epithelial Cells Occ /LPF Urine Bacteria Many /HPF (0-FEW) Glucose (Fingerstick) 184 mg/dL (70-99) 201 mg/dL (70-99) White Blood Count 14.8 x10^3/uL (4.0-11.0) Red Blood Count 2.95 x10^6/uL (4.30-5.70) Hemoglobin 8.4 g/dL (13.0-17.5) Hematocrit 25.8 % (39.0-53.0) Mean Corpuscular Volume 88 fL (79-100) Mean Corpuscular Hemoglobin 29 pg (25-35) Mean Corpuscular Hemoglobin Concent 33 g/dL (31-37) Red Cell Distribution Width 14.2 % (11.5-14.5) Platelet Count 195 x10^3/uL (140-400) Neutrophils (%) (Auto) 62 % (31-73) Lymphocytes (%) (Auto) 22 % (24-48) Monocytes (%) (Auto) 11 % (0-9) Eosinophils (%) (Auto) 4 % (0-3) Basophils (%) (Auto) 1 % (0-3) Neutrophils # (Auto) 9.2 x10^3/uL (1.8-7.7) Lymphocytes # (Auto) 3.3 x10^3/uL (1.0-4.8) Monocytes # (Auto) 1.6 x10^3/uL (0.0-1.1) Eosinophils # (Auto) 0.6 x10^3/uL (0.0-0.7) Basophils # (Auto) 0.1 x10^3/uL (0.0-0.2) Sodium Level 138 mmol/L (136-145) Potassium Level 4.3 mmol/L (3.5-5.1) Chloride Level 102 mmol/L (98-107) Carbon Dioxide Level 30 mmol/L (21-32) Anion Gap 6 (6-14) Blood Urea Nitrogen 13 mg/dL (8-26) Creatinine 0.8 mg/dL (0.7-1.3) Estimated GFR (Cockcroft-Gault) 118.9 Glucose Level 160 mg/dL (70-99) Calcium Level 7.7 mg/dL (8.5-10.1) Test 10/02/21 17:44 10/02/21 23:05 10/03/21 04:55 Glucose (Fingerstick) 165 mg/dL (70-99) 153 mg/dL (70-99) White Blood Count 13.7 x10^3/uL (4.0-11.0) Red Blood Count 2.96 x10^6/uL (4.30-5.70) Hemoglobin 8.3 g/dL (13.0-17.5) Hematocrit 25.7 % (39.0-53.0) Mean Corpuscular Volume 87 fL (79-100) Mean Corpuscular Hemoglobin 28 pg (25-35) Mean Corpuscular Hemoglobin Concent 32 g/dL (31-37) Red Cell Distribution Width 14.4 % (11.5-14.5) Platelet Count 217 x10^3/uL (140-400) Neutrophils (%) (Auto) 67 % (31-73) Lymphocytes (%) (Auto) 18 % (24-48) Monocytes (%) (Auto) 11 % (0-9) Eosinophils (%) (Auto) 4 % (0-3) Basophils (%) (Auto) 0 % (0-3) Neutrophils # (Auto) 9.2 x10^3/uL (1.8-7.7) Lymphocytes # (Auto) 2.5 x10^3/uL (1.0-4.8) Monocytes # (Auto) 1.5 x10^3/uL (0.0-1.1) Eosinophils # (Auto) 0.5 x10^3/uL (0.0-0.7) Basophils # (Auto) 0.0 x10^3/uL (0.0-0.2) Sodium Level 137 mmol/L (136-145) Potassium Level 4.4 mmol/L (3.5-5.1) Chloride Level 104 mmol/L (98-107) Carbon Dioxide Level 30 mmol/L (21-32) Anion Gap 3 (6-14) Blood Urea Nitrogen 13 mg/dL (8-26) Creatinine 0.8 mg/dL (0.7-1.3) Estimated GFR (Cockcroft-Gault) 118.9 Glucose Level 161 mg/dL (70-99) Calcium Level 7.7 mg/dL (8.5-10.1) Laboratory Tests Test 10/02/21 12:02 10/02/21 17:44 10/02/21 23:05 10/03/21 04:55 Glucose (Fingerstick) 201 mg/dL (70-99) 165 mg/dL (70-99) 153 mg/dL (70-99) White Blood Count 13.7 x10^3/uL (4.0-11.0) Red Blood Count 2.96 x10^6/uL (4.30-5.70) Hemoglobin 8.3 g/dL (13.0-17.5) Hematocrit 25.7 % (39.0-53.0) Mean Corpuscular Volume 87 fL (79-100) Mean Corpuscular Hemoglobin 28 pg (25-35) Mean Corpuscular Hemoglobin Concent 32 g/dL (31-37) Red Cell Distribution Width 14.4 % (11.5-14.5) Platelet Count 217 x10^3/uL (140-400) Neutrophils (%) (Auto) 67 % (31-73) Lymphocytes (%) (Auto) 18 % (24-48) Monocytes (%) (Auto) 11 % (0-9) Eosinophils (%) (Auto) 4 % (0-3) Basophils (%) (Auto) 0 % (0-3) Neutrophils # (Auto) 9.2 x10^3/uL (1.8-7.7) Lymphocytes # (Auto) 2.5 x10^3/uL (1.0-4.8) Monocytes # (Auto) 1.5 x10^3/uL (0.0-1.1) Eosinophils # (Auto) 0.5 x10^3/uL (0.0-0.7) Basophils # (Auto) 0.0 x10^3/uL (0.0-0.2) Sodium Level 137 mmol/L (136-145) Potassium Level 4.4 mmol/L (3.5-5.1) Chloride Level 104 mmol/L (98-107) Carbon Dioxide Level 30 mmol/L (21-32) Anion Gap 3 (6-14) Blood Urea Nitrogen 13 mg/dL (8-26) Creatinine 0.8 mg/dL (0.7-1.3) Estimated GFR (Cockcroft-Gault) 118.9 Glucose Level 161 mg/dL (70-99) Calcium Level 7.7 mg/dL (8.5-10.1) Microbiology 10/01/21 Urine Culture - Preliminary, Resulted Escherichia Coli Escherichia Coli#2 Medications Current Medications Fentanyl Citrate (Fentanyl 2ml Vial) 25 mcg PRN Q5MIN PRN IVP MILD PAIN 1-3; Start 09/25/21 at 06:00; Stop 09/25/21 at 20:00; Status DC Fentanyl Citrate (Fentanyl 2ml Vial) 50 mcg PRN Q5MIN PRN IVP MODERATE PAIN 4-6 Last administered on 09/25/21at 13:48; Start 09/25/21 at 06:00; Stop 09/25/21 at 20:00; Status DC Morphine Sulfate (Morphine Sulfate) 1 mg PRN Q10MIN PRN IVP SEVERE PAIN 7-10 Last administered on 09/25/21at 14:21; Start 09/25/21 at 06:00; Stop 09/25/21 at 20:00; Status DC Ringer's Solution 1,000 ml @ 30 mls/hr Q24H IV Last administered on 09/25/21at 12:54; Start 09/25/21 at 06:00; Stop 09/25/21 at 17:59; Status DC Hydromorphone HCl (Dilaudid) 0.5 mg PRN Q10MIN PRN IVP SEVERE PAIN 7-10, 2nd CHOICE Last administered on 09/25/21at 16:53; Start 09/25/21 at 06:00; Stop 09/25/21 at 20:00; Status DC Prochlorperazine Edisylate (Compazine) 5 mg PACU PRN PRN IVP NAUSEA, MRX1; Start 09/25/21 at 06:00; Stop 09/25/21 at 20:00; Status DC Cefazolin Sodium 1 gm/Sodium Chloride 1,000 ml @ 1,000 mls/hr 1X ONCE IRR Last administered on 09/25/21at 10:14; Start 09/25/21 at 06:00; Stop 09/25/21 at 06:59; Status DC Cefazolin Sodium/ Dextrose 50 ml @ 100 mls/hr 1X PREOP PRN IV PRIOR TO PROCEDURE Last administered on 09/25/21at 09:30; Start 09/25/21 at 06:00; Stop 09/25/21 at 13:39; Status DC Insulin Human Lispro (HumaLOG VIAL for OP,RR ONLY) 0-10 units PRN Q1HR PRN SQ PER PROTOCOL Last administered on 09/25/21at 17:01; Start 09/25/21 at 07:00; Stop 09/25/21 at 18:00; Status DC Bupivacaine HCl/ Epinephrine Bitart (Sensorcain-Epi 0.5% Kit) 30 ml STK-MED ONCE INJ Last administered on 2/7/22at 10:14; Start 09/25/21 at 10:14; Stop 09/25/21 at 10:30; Status DC Ketorolac Tromethamine (Toradol Im) 60 mg STK-MED ONCE INJ Last administered on 09/25/21 10:14; Start 09/25/21 at 10:14; Stop 09/25/21 at 10:30; Status DC Thrombin 20,000 unit STK-MED ONCE TP Last administered on 09/25/21 10:14; Start 09/25/21 at 10:14; Stop 09/25/21 at 10:30; Status DC Gelatin (Gelfoam Size 100) 1 each STK-MED ONCE TP Last administered on 09/25/21 10:14; Start 09/25/21 at 10:14; Stop 09/25/21 at 10:30; Status DC Acetaminophen (Tylenol) 650 mg PRN Q4HRS PRN PO TEMP OVER 100.4F OR MILD PAIN Last administered on 10/02/21 14:14; Start 09/25/21 at 12:30 Aspirin (Aspirin Chewable) 81 mg DAILY PO Last administered on 09/26/21 08:30; Start 09/26/21 at 09:00; Stop 09/28/21 at 17:19; Status DC Atorvastatin Calcium (Lipitor) 10 mg QHS PO Last administered on 10/02/21 21:01; Start 09/25/21 at 21:00 Baclofen (Lioresal) 10 mg BID PO Last administered on 10/03/21 08:02; Start 09/25/21 at 21:00 Diazepam (Valium) 5 mg TID PO Last administered on 10/03/21 08:03; Start 09/25/21 at 14:00 Docusate Sodium (Colace) 100 mg PRN BID PRN PO HARD STOOLS Last administered on 10/01/21 20:28; Start 09/25/21 at 12:30 Fluticasone Propionate (Flonase) 2 spray DAILY NS Last administered on 10/03/21 08:03; Start 09/26/21 at 09:00 Hydroxyzine HCl (Atarax) 25 mg PRN Q6HRS PRN PO itching Last administered on 10/02/21at 22:58; Start 09/25/21 at 12:30 Lidocaine (Lidoderm) 1 patch QHS TP Last administered on 10/02/21at 21:04; Start 09/25/21 at 20:00 Linagliptin (Tradjenta) 5 mg DAILY PO Last administered on 10/03/21 08:03; Start 09/25/21 at 13:00 Miconazole Nitrate (Monistat-Derm) 1 crispin TID TP Last administered on 10/03/21 08:03; Start 09/25/21 at 21:00 Midodrine (Proamatine) 2.5 mg PRN 1X PRN PO hypotension Last administered on 09/27/21 08:56; Start 09/25/21 at 12:30 Oxycodone HCl (Roxicodone) 10 mg PRN Q6HRS PRN PO MODERATE-SEVERE PAIN Last administered on 10/03/21 03:14; Start 09/25/21 at 12:30 Diclofenac Sodium (Voltaren) 1 crispin PRN TID PRN TP PAIN CONTROL; Start 09/25/21 at 13:15; Stop 09/25/21 at 18:37; Status DC Insulin Glargine (Lantus Syringe) 4 unit QHS SQ Last administered on 10/02/21at 23:09; Start 09/25/21 at 21:00 Losartan Potassium (Cozaar) 25 mg DAILY08 PO Last administered on 10/01/21at 08:34; Start 09/26/21 at 08:00 Polyethylene Glycol (miraLAX PACKET) 17 gm DAILY PO Last administered on 10/03/21at 08:02; Start 09/25/21 at 14:00 Pregabalin (Lyrica) 100 mg BID PO Last administered on 10/03/21at 08:03; Start 09/25/21 at 21:00 Acetaminophen (Tylenol) 650 mg PRN Q6HRS PRN PO MILD PAIN / TEMP > 100.3'F; Start 09/25/21 at 12:30; Status Cancel Al Hydroxide/Mg Hydroxide (Mylanta Plus Xs) 30 ml PRN Q3HRS PRN PO HEARTBURN / GAS; Start 09/25/21 at 12:30 Calcium Carbonate/ Glycine (Tums) 500 mg PRN Q3HRS PRN PO INDIGESTION; Start 09/25/21 at 12:30 Diphenhydramine HCl (Benadryl) 25 mg PRN Q6HRS PRN PO ITCHING; Start 09/25/21 at 12:30 Naloxone HCl (Narcan) 0.1 mg PRN Q2MIN PRN IV SEE COMMENTS; Start 09/25/21 at 1 2:30 Sodium Chloride (Normal Saline Flush) 3 ml QSHIFT PRN IV AFTER MEDS AND BLOOD DRAWS; Start 09/25/21 at 12:30 Potassium Chloride/Sodium Chloride 1,000 ml @ 75 mls/hr [id number] IV Last administered on 09/26/21at 07:00; Start 09/25/21 at 12:30; Stop 09/26/21 at 17:33; Status DC Magnesium Hydroxide (Milk Of Magnesia) 2,400 mg PRN Q12HR PRN PO CONSTIPATION; Start 09/25/21 at 12:30 Cefazolin Sodium (Ancef) 1 gm Q8H IVP Last administered on 09/26/21at 04:14; Start 09/25/21 at 18:00; Stop 09/26/21 at 10:01; Status DC Fentanyl Citrate (Fentanyl 2ml Vial) 50 mcg PRN Q2HR PRN IVP MODERATE TO SEVERE PAIN Last administered on 10/03/21at 06:43; Start 09/25/21 at 12:30 Dextrose (Dextrose 50%-Water Syringe) 12.5 gm PRN Q15MIN PRN IV SEE COMMENTS; Start 09/25/21 at 12:30 Dextrose (Iv Dextrose 5%) 250 ml PRN Q15MIN PRN IV SEE COMMENTS; Start 09/25/21 at 12:30 Gelatin (Gelfoam Size 100) 1 each STK-MED ONCE .ROUTE ; Start 09/25/21 at 06:37; Stop 09/25/21 at 14:55; Status DC Bupivacaine HCl/ Epinephrine Bitart (Sensorcain-Epi 0.5% Kit) 30 ml STK-MED ONCE .ROUTE ; Start 09/25/21 at 06:37; Stop 09/25/21 at 14:55; Status DC Ketorolac Tromethamine (Toradol Im) 60 mg STK-MED ONCE .ROUTE ; Start 09/25/21 at 06:37; Stop 09/25/21 at 14:55; Status DC Thrombin 20,000 unit STK-MED ONCE TP ; Start 09/25/21 at 06:38; Stop 09/25/21 at 14:55; Status DC Propofol (Diprivan) 200 mg STK-MED ONCE IV ; Start 09/25/21 at 05:54; Stop 09/25/21 at 14:57; Status DC Lidocaine HCl (Lidocaine Pf 2% Vial) 5 ml STK-MED ONCE .ROUTE ; Start 09/25/21 at 05:54; Stop 09/25/21 at 14:57; Status DC Ondansetron HCl (Zofran) 4 mg STK-MED ONCE .ROUTE ; Start 09/25/21 at 05:54; Stop 09/25/21 at 14:57; Status DC Phenylephrine HCl (Ramone-Synephrine Inj) 10 mg STK-MED ONCE .ROUTE ; Start 09/25/21 at 05:54; Stop 09/25/21 at 14:57; Status DC Propofol 50 ml @ As Directed STK-MED ONCE IV ; Start 09/25/21 at 05:54; Stop 09/25/21 at 14:57; Status DC Dexamethasone Sodium Phosphate (Decadron) 4 mg STK-MED ONCE .ROUTE ; Start 09/25/21 at 05:54; Stop 09/25/21 at 14:57; Status DC Fentanyl Citrate (Fentanyl 2ml Vial) 100 mcg STK-MED ONCE .ROUTE ; Start 09/25/21 at 05:54; Stop 09/25/21 at 14:57; Status DC Succinylcholine Chloride (Anectine) 200 mg STK-MED ONCE .ROUTE ; Start 09/25/21 at 05:54; Stop 09/25/21 at 14:57; Status DC Remifentanil HCl (Ultiva) 1 mg STK-MED ONCE IV ; Start 09/25/21 at 05:54; Stop 09/25/21 at 14:57; Status DC Glycopyrrolate (Robinul) 1 mg STK-MED ONCE .ROUTE ; Start 09/25/21 at 07:11; Stop 09/25/21 at 15:01; Status DC Propofol 50 ml @ As Directed STK-MED ONCE IV ; Start 09/25/21 at 08:07; Stop 09/25/21 at 15:02; Status DC Ketamine HCl (Ketamine) 50 mg STK-MED ONCE .ROUTE ; Start 09/25/21 at 08:15; Stop 09/25/21 at 15:02; Status DC Hydromorphone HCl (Dilaudid) 2 mg STK-MED ONCE .ROUTE ; Start 09/25/21 at 10:44; Stop 09/25/21 at 15:03; Status DC Fentanyl Citrate (Fentanyl 2ml Vial) 100 mcg STK-MED ONCE .ROUTE ; Start 09/25/21 at 13:26; Stop 09/25/21 at 15:04; Status DC Morphine Sulfate (Morphine Sulfate) 2 mg STK-MED ONCE .ROUTE ; Start 09/25/21 at 14:04; Stop 09/25/21 at 15:05; Status DC Hydromorphone HCl (Dilaudid) 2 mg STK-MED ONCE .ROUTE ; Start 09/25/21 at 14:54; Stop 09/25/21 at 15:06; Status DC Menthol/Methyl Salicylate (Bengay Greaseless Cream) 1 crispin PRN Q30MIN PRN TP MUSCLE PAIN Last administered on 10/02/21at 21:03; Start 09/25/21 at 18:45 Mupirocin (Bactroban) 1 crispin BID NS Last administered on 10/03/21at 08:04; Start 09/26/21 at 09:00 Dexamethasone Sodium Phosphate (Decadron) 10 mg 1X ONCE IVP Last administered on 09/26/21at 07:31; Start 09/26/21 at 07:30; Stop 09/26/21 at 07:31; Status DC Cefazolin Sodium 1 gm/Sodium Chloride 1,000 ml @ 1,000 mls/hr 1X ONCE IRR Last administered on 09/26/21at 11:52; Start 09/26/21 at 10:30; Stop 09/26/21 at 11:29; Status DC Cefazolin Sodium (Ancef) 1 gm STK-MED ONCE IVP ; Start 09/26/21 at 10:05; Stop 09/26/21 at 10:06; Status DC Lidocaine HCl (Lidocaine Pf 2% Vial) 5 ml STK-MED ONCE .ROUTE ; Start 09/26/21 at 10:18; Stop 09/26/21 at 10:18; Status DC Ondansetron HCl (Zofran) 4 mg STK-MED ONCE .ROUTE ; Start 09/26/21 at 10:18; Stop 09/26/21 at 10:18; Status DC Propofol (Diprivan) 200 mg STK-MED ONCE IV ; Start 09/26/21 at 10:18; Stop 09/26/21 at 10:19; Status DC Dexamethasone Sodium Phosphate (Decadron) 4 mg STK-MED ONCE .ROUTE ; Start 09/26/21 at 10:18; Stop 09/26/21 at 10:19; Status DC Sevoflurane (Ultane) 30 ml STK-MED ONCE IH ; Start 09/26/21 at 10:18; Stop 09/26/21 at 10:19; Status DC Fentanyl Citrate (Fentanyl 2ml Vial) 100 mcg STK-MED ONCE .ROUTE ; Start 09/26/21 at 10:19; Stop 09/26/21 at 10:19; Status DC Rocuronium Roland (Zemuron) 50 mg STK-MED ONCE .ROUTE ; Start 09/26/21 at 10:19; Stop 09/26/21 at 10:19; Status DC Insulin Human Lispro (HumaLOG VIAL for OP,RR ONLY) 0-10 units PRN Q1HR PRN SQ PER PROTOCOL Last administered on 09/26/21at 15:11; Start 09/26/21 at 10:30; Stop 09/26/21 at 18:00; Status DC Sugammadex Sodium (Bridion) 200 mg 1X ONCE IVP Last administered on 09/26/21at 10:30; Start 09/26/21 at 10:30; Stop 09/26/21 at 10:31; Status DC Gelatin (Gelfoam Size 100) 1 each STK-MED ONCE .ROUTE Last administered on 09/26/21at 11:52; Start 09/26/21 at 10:30; Stop 09/26/21 at 10:30; Status DC Bupivacaine HCl/ Epinephrine Bitart (Sensorcain-Epi 0.5% Kit) 30 ml STK-MED ONCE .ROUTE ; Start 09/26/21 at 10:30; Stop 09/26/21 at 10:30; Status DC Ketorolac Tromethamine (Toradol Im) 60 mg STK-MED ONCE .ROUTE ; Start 09/26/21 at 10:30; Stop 09/26/21 at 10:30; Status DC Thrombin 20,000 unit STK-MED ONCE TP Last administered on 09/26/21at 11:52; Start 09/26/21 at 10:30; Stop 09/26/21 at 10:31; Status DC Cefazolin Sodium/ Dextrose 50 ml @ As Directed STK-MED ONCE IV ; Start 09/26/21 at 10:32; Stop 09/26/21 at 10:32; Status DC Vancomycin HCl 1 gm/Sodium Chloride 250 ml @ 250 mls/hr PREOP PRN PRN IV PRIOR TO PROCEDURE; Start 09/26/21 at 10:45; Stop 09/26/21 at 14:00; Status DC Cefazolin Sodium/ Dextrose 50 ml @ 100 mls/hr 1X ONCE IV Last administered on 09/26/21at 11:00; Start 09/26/21 at 11:00; Stop 09/26/21 at 11:29; Status DC Dexamethasone Sodium Phosphate (Decadron) 4 mg STK-MED ONCE .ROUTE ; Start 09/26/21 at 11:04; Stop 09/26/21 at 11:04; Status DC Glycopyrrolate (Robinul) 1 mg STK-MED ONCE .ROUTE ; Start 09/26/21 at 11:04; Stop 09/26/21 at 11:04; Status DC Hydromorphone HCl (Dilaudid) 2 mg STK-MED ONCE .ROUTE ; Start 09/26/21 at 11:56; Stop 09/26/21 at 11:56; Status DC Fentanyl Citrate (Fentanyl 2ml Vial) 25 mcg PRN Q5MIN PRN IVP MILD PAIN 1-3; Start 09/26/21 at 14:30; Stop 09/26/21 at 18:15; Status DC Fentanyl Citrate (Fentanyl 2ml Vial) 50 mcg PRN Q5MIN PRN IVP MODERATE PAIN 4- 6; Start 09/26/21 at 14:30; Stop 09/26/21 at 18:15; Status DC Morphine Sulfate (Morphine Sulfate) 1 mg PRN Q10MIN PRN IVP SEVERE PAIN 7-10; Start 09/26/21 at 14:30; Stop 09/26/21 at 18:15; Status DC Ringer's Solution 1,000 ml @ 30 mls/hr Q24H IV Last administered on 09/26/21at 15:18; Start 09/26/21 at 14:30; Stop 09/26/21 at 21:00; Status DC Hydromorphone HCl (Dilaudid) 0.5 mg PRN Q10MIN PRN IVP SEVERE PAIN 7-10, 2nd CHOICE; Start 09/26/21 at 14:30; Stop 09/26/21 at 18:15; Status DC Prochlorperazine Edisylate (Compazine) 5 mg PACU PRN PRN IVP NAUSEA, MRX1; Start 09/26/21 at 14:30; Stop 09/26/21 at 21:00; Status DC Fentanyl Citrate (Fentanyl 2ml Vial) 100 mcg STK-MED ONCE .ROUTE ; Start 09/26/21 at 14:23; Stop 09/26/21 at 14:25; Status DC Fentanyl Citrate (Fentanyl 2ml Vial) 25 mcg PRN Q5MIN PRN IVP MILD PAIN 1-3; Start 09/26/21 at 14:30; Stop 09/27/21 at 14:29; Status UNV Fentanyl Citrate (Fentanyl 2ml Vial) 50 mcg PRN Q5MIN PRN IVP MODERATE PAIN 4- 6; Start 09/26/21 at 14:30; Stop 09/27/21 at 14:29; Status UNV Morphine Sulfate (Morphine Sulfate) 1 mg PRN Q10MIN PRN IVP SEVERE PAIN 7-10; Start 09/26/21 at 14:30; Stop 09/27/21 at 14:29; Status UNV Ringer's Solution 1,000 ml @ 30 mls/hr Q24H IV ; Start 09/26/21 at 14:30; Stop 09/27/21 at 02:29; Status UNV Hydromorphone HCl (Dilaudid) 0.5 mg PRN Q10MIN PRN IVP SEVERE PAIN 7-10, 2nd CHOICE; Start 09/26/21 at 14:30; Stop 09/27/21 at 14:29; Status UNV Prochlorperazine Edisylate (Compazine) 5 mg PACU PRN PRN IVP NAUSEA, MRX1; Start 09/26/21 at 14:30; Stop 09/27/21 at 14:29; Status UNV Dexamethasone Sodium Phosphate (Decadron) 4 mg Q6HRS IVP Last administered on 09/28/21at 05:06; Start 09/26/21 at 18:00; Stop 09/28/21 at 06:00; Status DC Sodium Chloride 1,000 ml @ 100 mls/hr Q10H IV Last administered on 10/03/21at 03:20; Start 09/26/21 at 17:30 Cefazolin Sodium (Ancef) 1 gm Q8HRS IVP ; Start 09/27/21 at 06:00; Stop 09/27/21 at 05:47; Status DC Vancomycin HCl 1 gm/Sodium Chloride 250 ml @ 166.667 mls/hr 1X ONCE IV Last administered on 09/27/21at 06:27; Start 09/27/21 at 06:00; Stop 09/27/21 at 07:29; Status DC Gadoterate Meglumine (Clariscan) 19 ml 1X ONCE IVP Last administered on 09/29/21at 10:32; Start 09/29/21 at 08:15; Stop 09/29/21 at 08:17; Status DC Bisacodyl (Dulcolax Supp) 10 mg PRN DAILY PRN [place] CONSTIPATION; Start 09/29/21 at 14:15 Lactulose (Lactulose) 20 gm PRN DAILY PRN PO CONSTIPATION Last administered on 10/01/21at 08:35; Start 09/29/21 at 14:30 Ascorbic Acid (Vitamin C) 500 mg DAILY PO Last administered on 10/03/21at 08:03; Start 10/02/21 at 10:00 Levofloxacin/ Dextrose 100 ml @ 100 mls/hr Q24H IV Last administered on 10/02/21at 12:15; Start 10/02/21 at 12:00; Stop 10/03/21 at 08:57; Status DC Levofloxacin/ Dextrose 50 ml @ 50 mls/hr Q24H IV ; Start 10/03/21 at 12:00 Lactobacillus Rhamnosus (Culturelle) 1 cap BID PO ; Start 10/03/21 at 21:00 Active Scripts Active Dok (Docusate Sodium) 100 Mg Capsule 100 Mg PO PRN BID PRN 30 Days Tylenol (Acetaminophen) 325 Mg Tablet 650 Mg PO PRN Q4HRS PRN 30 Days Valium (Diazepam) 5 Mg Tablet 5 Mg PO TID Atorvastatin Calcium 10 Mg Tablet 10 Mg PO QHS Reported Midodrine Hcl 2.5 Mg Tablet 2.5 Mg PO PRN 1X PRN Aspirin 81 Mg Tab.chew 81 Mg PO DAILY Baclofen 10 Mg Tablet 10 Mg PO BID Lyrica (Pregabalin) 100 Mg Capsule 100 Mg PO BID 30 Days Polyethylene Glycol 3350 2,500 Gm Powder 17 Gm PO DAILY 30 Days Oxycodone HCl 5 Mg Tablet 10 Mg PO PRN Q6HRS PRN Micatin (Miconazole Nitrate) 14 Gm Cream..g. 1 [place] TP TID Tradjenta (Linagliptin) 5 Mg Tablet 5 Mg PO DAILY Lidocaine PATCH (Lidocaine) 1 Each Adh..patch 1 Each TP DAILY REMOVE AFTER 12 HOURS Levemir (Insulin Detemir) 100 Unit/1 Ml Vial 4 Unit SQ HS Hydroxyzine Hcl 25 Mg Tablet 25 Mg PO PRN Q6HRS PRN Fluticasone Propionate Nasal [place] (Fluticasone Propionate) 16 Gm [place].susp 2 [place] NS DAILY Diclofenac Sodium 100 Gm Gel..gram. 100 Gm TP PRN TID PRN Losartan Potassium 100 Mg Tablet 25 Tab PO DAILY08 Vitals/I & O Vital Sign - Last 24 Hours 10/02/21 10/02/21 10/02/21 10/02/21 11:20 12:03 12:14 13:00 Temp 98.4 98.4 Pulse 85 82 Resp 24 15 20 B/P (MAP) 109/49 (69) 103/57 (72) Pulse Ox 95 95 97 O2 Delivery Room Air Room Air Room Air Room Air 10/02/21 10/02/21 10/02/21 10/02/21 13:09 14:18 16:06 17:41 Pulse 90 89 82 Resp 11 17 12 16 B/P (MAP) 116/60 (78) 146/67 (93) 87/44 (58) Pulse Ox 97 100 93 94 O2 Delivery Room Air Room Air 10/02/21 10/02/21 10/02/21 10/02/21 18:02 19:34 20:17 20:30 Temp 98.9 98.6 98.9 98.6 Pulse 82 79 Resp 15 16 14 B/P (MAP) 99/52 (68) 97/50 (66) Pulse Ox 92 92 95 O2 Delivery Room Air Room Air Room Air O2 Flow Rate 2.0 10/02/21 10/02/21 10/02/21 10/03/21 21:18 22:39 23:29 03:14 Temp 98.4 98.4 Pulse 79 Resp 16 18 18 16 B/P (MAP) 90/46 (61) Pulse Ox 95 95 95 95 O2 Delivery Room Air Room Air Room Air Room Air O2 Flow Rate 2.0 10/03/21 10/03/21 10/03/21 10/03/21 03:46 04:36 06:43 07:13 Temp 98.2 98.2 Pulse 82 Resp 18 20 16 18 B/P (MAP) 106/60 (75) Pulse Ox 95 96 96 98 O2 Delivery Room Air Room Air Room Air Room Air 10/03/21 10/03/21 08:00 08:00 Temp 97.9 97.9 Pulse 83 Resp 16 B/P (MAP) 92/56 (68) Pulse Ox 98 O2 Delivery Room Air Room Air Intake and Output 10/02/21 10/02/21 10/03/21 15:00 23:00 07:00 Intake Total 180 ml 2329.3 ml 1200 ml Output Total 1825 ml 500 ml 1650 ml Balance -1645 ml 1829.3 ml -450 ml Justifications for Admission Other Justification uncontrolled diabetes TERRY JURADO MD Oct 03, 2021 11:22
[2021-10-03 12:00] VITALS: BP 111/60
[2021-10-03 16:00] VITALS: BP 131/62
--- NOTE | 2021-10-03 17:01 | PDOC ---
PROGRESS NOTES Date of Service DATE: 10/03/21 TIME: 16:57 Subjective Subjective POD #7 S/P Evacuation of epidural hematoma, s/p cervical laminectomy and fusion 09/25/21 Sitting up in bed pain well controlled sat up on the side of bed today was able to hold chocolate milk and drink himself Objective Objective Vital Signs Date Time Temp Pulse Resp B/P (MAP) Pulse Ox O2 Delivery O2 Flow Rate FiO2 10/03/21 16:00 98.7 88 16 131/62 (85) 96 Room Air 98.7 10/03/21 03:14 2.0 Intake and Output 10/03/21 07:00 Intake Total 3709.3 ml Output Total 3975 ml Balance -265.7 ml Intake Oral 1480 ml IV Total 2229.3 ml Output Urine Total 3975 ml # Bowel Movements 1 Physical Exam General: Alert, Oriented X3, Cooperative Neuro: Normal speech (sensation intact in upper and lower extremites, moves upper extremities with 3/5 strength, hand grasps slightly stronger- finger extension improved)), Other (sensation intact in upper and lower extremites, moves upper extremities with 3/5 strength, hand grasps slightly stronger- finger extension improved, slight movement of right great toe) Plan Plan of Care SCDs continue current treatment plan stable to transfer to rehab D/W RN Comment Review of Relevant I have reviewed the following items michelle (where applicable) has been applied. Labs Laboratory Tests Test 10/01/21 21:06 10/02/21 05:40 10/02/21 12:02 10/02/21 17:44 Glucose (Fingerstick) 184 mg/dL (70-99) 201 mg/dL (70-99) 165 mg/dL (70-99) White Blood Count 14.8 x10^3/uL (4.0-11.0) Red Blood Count 2.95 x10^6/uL (4.30-5.70) Hemoglobin 8.4 g/dL (13.0-17.5) Hematocrit 25.8 % (39.0-53.0) Mean Corpuscular Volume 88 fL (79-100) Mean Corpuscular Hemoglobin 29 pg (25-35) Mean Corpuscular Hemoglobin Concent 33 g/dL (31-37) Red Cell Distribution Width 14.2 % (11.5-14.5) Platelet Count 195 x10^3/uL (140-400) Neutrophils (%) (Auto) 62 % (31-73) Lymphocytes (%) (Auto) 22 % (24-48) Monocytes (%) (Auto) 11 % (0-9) Eosinophils (%) (Auto) 4 % (0-3) Basophils (%) (Auto) 1 % (0-3) Neutrophils # (Auto) 9.2 x10^3/uL (1.8-7.7) Lymphocytes # (Auto) 3.3 x10^3/uL (1.0-4.8) Monocytes # (Auto) 1.6 x10^3/uL (0.0-1.1) Eosinophils # (Auto) 0.6 x10^3/uL (0.0-0.7) Basophils # (Auto) 0.1 x10^3/uL (0.0-0.2) Sodium Level 138 mmol/L (136-145) Potassium Level 4.3 mmol/L (3.5-5.1) Chloride Level 102 mmol/L (98-107) Carbon Dioxide Level 30 mmol/L (21-32) Anion Gap 6 (6-14) Blood Urea Nitrogen 13 mg/dL (8-26) Creatinine 0.8 mg/dL (0.7-1.3) Estimated GFR (Cockcroft-Gault) 118.9 Glucose Level 160 mg/dL (70-99) Calcium Level 7.7 mg/dL (8.5-10.1) Test 10/02/21 23:05 10/03/21 04:55 Glucose (Fingerstick) 153 mg/dL (70-99) White Blood Count 13.7 x10^3/uL (4.0-11.0) Red Blood Count 2.96 x10^6/uL (4.30-5.70) Hemoglobin 8.3 g/dL (13.0-17.5) Hematocrit 25.7 % (39.0-53.0) Mean Corpuscular Volume 87 fL (79-100) Mean Corpuscular Hemoglobin 28 pg (25-35) Mean Corpuscular Hemoglobin Concent 32 g/dL (31-37) Red Cell Distribution Width 14.4 % (11.5-14.5) Platelet Count 217 x10^3/uL (140-400) Neutrophils (%) (Auto) 67 % (31-73) Lymphocytes (%) (Auto) 18 % (24-48) Monocytes (%) (Auto) 11 % (0-9) Eosinophils (%) (Auto) 4 % (0-3) Basophils (%) (Auto) 0 % (0-3) Neutrophils # (Auto) 9.2 x10^3/uL (1.8-7.7) Lymphocytes # (Auto) 2.5 x10^3/uL (1.0-4.8) Monocytes # (Auto) 1.5 x10^3/uL (0.0-1.1) Eosinophils # (Auto) 0.5 x10^3/uL (0.0-0.7) Basophils # (Auto) 0.0 x10^3/uL (0.0-0.2) Sodium Level 137 mmol/L (136-145) Potassium Level 4.4 mmol/L (3.5-5.1) Chloride Level 104 mmol/L (98-107) Carbon Dioxide Level 30 mmol/L (21-32) Anion Gap 3 (6-14) Blood Urea Nitrogen 13 mg/dL (8-26) Creatinine 0.8 mg/dL (0.7-1.3) Estimated GFR (Cockcroft-Gault) 118.9 Glucose Level 161 mg/dL (70-99) Calcium Level 7.7 mg/dL (8.5-10.1) Laboratory Tests Test 10/02/21 17:44 10/02/21 23:05 10/03/21 04:55 Glucose (Fingerstick) 165 mg/dL (70-99) 153 mg/dL (70-99) White Blood Count 13.7 x10^3/uL (4.0-11.0) Red Blood Count 2.96 x10^6/uL (4.30-5.70) Hemoglobin 8.3 g/dL (13.0-17.5) Hematocrit 25.7 % (39.0-53.0) Mean Corpuscular Volume 87 fL (79-100) Mean Corpuscular Hemoglobin 28 pg (25-35) Mean Corpuscular Hemoglobin Concent 32 g/dL (31-37) Red Cell Distribution Width 14.4 % (11.5-14.5) Platelet Count 217 x10^3/uL (140-400) Neutrophils (%) (Auto) 67 % (31-73) Lymphocytes (%) (Auto) 18 % (24-48) Monocytes (%) (Auto) 11 % (0-9) Eosinophils (%) (Auto) 4 % (0-3) Basophils (%) (Auto) 0 % (0-3) Neutrophils # (Auto) 9.2 x10^3/uL (1.8-7.7) Lymphocytes # (Auto) 2.5 x10^3/uL (1.0-4.8) Monocytes # (Auto) 1.5 x10^3/uL (0.0-1.1) Eosinophils # (Auto) 0.5 x10^3/uL (0.0-0.7) Basophils # (Auto) 0.0 x10^3/uL (0.0-0.2) Sodium Level 137 mmol/L (136-145) Potassium Level 4.4 mmol/L (3.5-5.1) Chloride Level 104 mmol/L (98-107) Carbon Dioxide Level 30 mmol/L (21-32) Anion Gap 3 (6-14) Blood Urea Nitrogen 13 mg/dL (8-26) Creatinine 0.8 mg/dL (0.7-1.3) Estimated GFR (Cockcroft-Gault) 118.9 Glucose Level 161 mg/dL (70-99) Calcium Level 7.7 mg/dL (8.5-10.1) Microbiology 10/01/21 Urine Culture - Preliminary, Resulted Escherichia Coli Escherichia Coli#2 Medications Current Medications Fentanyl Citrate (Fentanyl 2ml Vial) 25 mcg PRN Q5MIN PRN IVP MILD PAIN 1-3; Start 09/25/21 at 06:00; Stop 09/25/21 at 20:00; Status DC Fentanyl Citrate (Fentanyl 2ml Vial) 50 mcg PRN Q5MIN PRN IVP MODERATE PAIN 4-6 Last administered on 09/25/21at 13:48; Start 09/25/21 at 06:00; Stop 09/25/21 at 20:00; Status DC Morphine Sulfate (Morphine Sulfate) 1 mg PRN Q10MIN PRN IVP SEVERE PAIN 7-10 Last administered on 09/25/21at 14:21; Start 09/25/21 at 06:00; Stop 09/25/21 at 20:00; Status DC Ringer's Solution 1,000 ml @ 30 mls/hr Q24H IV Last administered on 09/25/21at 12:54; Start 09/25/21 at 06:00; Stop 09/25/21 at 17:59; Status DC Hydromorphone HCl (Dilaudid) 0.5 mg PRN Q10MIN PRN IVP SEVERE PAIN 7-10, 2nd CHOICE Last administered on 09/25/21at 16:53; Start 09/25/21 at 06:00; Stop 09/25/21 at 20:00; Status DC Prochlorperazine Edisylate (Compazine) 5 mg PACU PRN PRN IVP NAUSEA, MRX1; Start 09/25/21 at 06:00; Stop 09/25/21 at 20:00; Status DC Cefazolin Sodium 1 gm/Sodium Chloride 1,000 ml @ 1,000 mls/hr 1X ONCE IRR Last administered on 09/25/21at 10:14; Start 09/25/21 at 06:00; Stop 09/25/21 at 06:59; Status DC Cefazolin Sodium/ Dextrose 50 ml @ 100 mls/hr 1X PREOP PRN IV PRIOR TO PROCEDURE Last administered on 09/25/21at 09:30; Start 09/25/21 at 06:00; Stop 09/25/21 at 13:39; Status DC Insulin Human Lispro (HumaLOG VIAL for OP,RR ONLY) 0-10 units PRN Q1HR PRN SQ PER PROTOCOL Last administered on 09/25/21at 17:01; Start 09/25/21 at 07:00; Stop 09/25/21 at 18:00; Status DC Bupivacaine HCl/ Epinephrine Bitart (Sensorcain-Epi 0.5% Kit) 30 ml STK-MED ONCE INJ Last administered on 09/25/21at 10:14; Start 09/25/21 at 10:14; Stop 09/25/21 at 10:30; Status DC Ketorolac Tromethamine (Toradol Im) 60 mg STK-MED ONCE INJ Last administered on 09/25/21at 10:14; Start 09/25/21 at 10:14; Stop 09/25/21 at 10:30; Status DC Thrombin 20,000 unit STK-MED ONCE TP Last administered on 09/25/21 10:14; Start 09/25/21 at 10:14; Stop 09/25/21 at 10:30; Status DC Gelatin (Gelfoam Size 100) 1 each STK-MED ONCE TP Last administered on 09/25/21 10:14; Start 09/25/21 at 10:14; Stop 09/25/21 at 10:30; Status DC Acetaminophen (Tylenol) 650 mg PRN Q4HRS PRN PO TEMP OVER 100.4F OR MILD PAIN Last administered on 10/02/21 14:14; Start 09/25/21 at 12:30 Aspirin (Aspirin Chewable) 81 mg DAILY PO Last administered on 09/26/21 08:30; Start 09/26/21 at 09:00; Stop 09/28/21 at 17:19; Status DC Atorvastatin Calcium (Lipitor) 10 mg QHS PO Last administered on 10/02/21 21:01; Start 09/25/21 at 21:00 Baclofen (Lioresal) 10 mg BID PO Last administered on 10/03/21 08:02; Start 09/25/21 at 21:00 Diazepam (Valium) 5 mg TID PO Last administered on 10/03/21 08:03; Start 09/25/21 at 14:00 Docusate Sodium (Colace) 100 mg PRN BID PRN PO HARD STOOLS Last administered on 10/01/21 20:28; Start 09/25/21 at 12:30 Fluticasone Propionate (Flonase) 2 spray DAILY NS Last administered on 10/03/21 08:03; Start 09/26/21 at 09:00 Hydroxyzine HCl (Atarax) 25 mg PRN Q6HRS PRN PO itching Last administered on 10/02/21 22:58; Start 09/25/21 at 12:30 Lidocaine (Lidoderm) 1 patch QHS TP Last administered on 10/02/21 21:04; Start 09/25/21 at 20:00 Linagliptin (Tradjenta) 5 mg DAILY PO Last administered on 10/03/21 08:03; Start 09/25/21 at 13:00 Miconazole Nitrate (Monistat-Derm) 1 crispin TID TP Last administered on 10/03/21at 08:03; Start 09/25/21 at 21:00 Midodrine (Proamatine) 2.5 mg PRN 1X PRN PO hypotension Last administered on 09/27/21at 08:56; Start 09/25/21 at 12:30 Oxycodone HCl (Roxicodone) 10 mg PRN Q6HRS PRN PO MODERATE-SEVERE PAIN Last administered on 10/03/21at 11:17; Start 09/25/21 at 12:30 Diclofenac Sodium (Voltaren) 1 crispin PRN TID PRN TP PAIN CONTROL; Start 09/25/21 at 13:15; Stop 09/25/21 at 18:37; Status DC Insulin Glargine (Lantus Syringe) 4 unit QHS SQ Last administered on 10/02/21at 23:09; Start 09/25/21 at 21:00 Losartan Potassium (Cozaar) 25 mg DAILY08 PO Last administered on 10/01/21at 08:34; Start 09/26/21 at 08:00 Polyethylene Glycol (miraLAX PACKET) 17 gm DAILY PO Last administered on 10/03/21at 08:02; Start 09/25/21 at 14:00 Pregabalin (Lyrica) 100 mg BID PO Last administered on 10/03/21at 08:03; Start 09/25/21 at 21:00 Acetaminophen (Tylenol) 650 mg PRN Q6HRS PRN PO MILD PAIN / TEMP > 100.3'F; Start 09/25/21 at 12:30; Status Cancel Al Hydroxide/Mg Hydroxide (Mylanta Plus Xs) 30 ml PRN Q3HRS PRN PO HEARTBURN / GAS; Start 09/25/21 at 12:30 Calcium Carbonate/ Glycine (Tums) 500 mg PRN Q3HRS PRN PO INDIGESTION; Start 09/25/21 at 12:30 Diphenhydramine HCl (Benadryl) 25 mg PRN Q6HRS PRN PO ITCHING; Start 09/25/21 at 12:30 Naloxone HCl (Narcan) 0.1 mg PRN Q2MIN PRN IV SEE COMMENTS; Start 09/25/21 at 12:30 Sodium Chloride (Normal Saline Flush) 3 ml QSHIFT PRN IV AFTER MEDS AND BLOOD DRAWS; Start 09/25/21 at 12:30 Potassium Chloride/Sodium Chloride 1,000 ml @ 75 mls/hr [id number] IV Last administered on 09/26/21at 07:00; Start 09/25/21 at 12:30; Stop 09/26/21 at 17:33; Status DC Magnesium Hydroxide (Milk Of Magnesia) 2,400 mg PRN Q12HR PRN PO CONSTIPATION; Start 09/25/21 at 12:30 Cefazolin Sodium (Ancef) 1 gm Q8H IVP Last administered on 09/26/21at 04:14; Start 09/25/21 at 18:00; Stop 09/26/21 at 10:01; Status DC Fentanyl Citrate (Fentanyl 2ml Vial) 50 mcg PRN Q2HR PRN IVP MODERATE TO SEVERE PAIN Last administered on 10/03/21at 13:19; Start 09/25/21 at 12:30 Dextrose (Dextrose 50%-Water Syringe) 12.5 gm PRN Q15MIN PRN IV SEE COMMENTS; Start 09/25/21 at 12:30 Dextrose (Iv Dextrose 5%) 250 ml PRN Q15MIN PRN IV SEE COMMENTS; Start 09/25/21 at 12:30 Gelatin (Gelfoam Size 100) 1 each STK-MED ONCE .ROUTE ; Start 09/25/21 at 06:37; Stop 09/25/21 at 14:55; Status DC Bupivacaine HCl/ Epinephrine Bitart (Sensorcain-Epi 0.5% Kit) 30 ml STK-MED ONCE .ROUTE ; Start 09/25/21 at 06:37; Stop 09/25/21 at 14:55; Status DC Ketorolac Tromethamine (Toradol Im) 60 mg STK-MED ONCE .ROUTE ; Start 09/25/21 at 06:37; Stop 09/25/21 at 14:55; Status DC Thrombin 20,000 unit STK-MED ONCE TP ; Start 09/25/21 at 06:38; Stop 09/25/21 at 14:55; Status DC Propofol (Diprivan) 200 mg STK-MED ONCE IV ; Start 09/25/21 at 05:54; Stop 09/25/21 at 14:57; Status DC Lidocaine HCl (Lidocaine Pf 2% Vial) 5 ml STK-MED ONCE .ROUTE ; Start 09/25/21 at 05:54; Stop 09/25/21 at 14:57; Status DC Ondansetron HCl (Zofran) 4 mg STK-MED ONCE .ROUTE ; Start 09/25/21 at 05:54; Stop 09/25/21 at 14:57; Status DC Phenylephrine HCl (Ramone-Synephrine Inj) 10 mg STK-MED ONCE .ROUTE ; Start 09/25/21 at 05:54; Stop 09/25/21 at 14:57; Status DC Propofol 50 ml @ As Directed STK-MED ONCE IV ; Start 09/25/21 at 05:54; Stop 09/25/21 at 14:57; Status DC Dexamethasone Sodium Phosphate (Decadron) 4 mg STK-MED ONCE .ROUTE ; Start 09/25/21 at 05:54; Stop 09/25/21 at 14:57; Status DC Fentanyl Citrate (Fentanyl 2ml Vial) 100 mcg STK-MED ONCE .ROUTE ; Start 09/25/21 at 05:54; Stop 09/25/21 at 14:57; Status DC Succinylcholine Chloride (Anectine) 200 mg STK-MED ONCE .ROUTE ; Start 09/25/21 at 05:54; Stop 09/25/21 at 14:57; Status DC Remifentanil HCl (Ultiva) 1 mg STK-MED ONCE IV ; Start 09/25/21 at 05:54; Stop 09/25/21 at 14:57; Status DC Glycopyrrolate (Robinul) 1 mg STK-MED ONCE .ROUTE ; Start 09/25/21 at 07:11; Stop 09/25/21 at 15:01; Status DC Propofol 50 ml @ As Directed STK-MED ONCE IV ; Start 09/25/21 at 08:07; Stop 09/25/21 at 15:02; Status DC Ketamine HCl (Ketamine) 50 mg STK-MED ONCE .ROUTE ; Start 09/25/21 at 08:15; Stop 09/25/21 at 15:02; Status DC Hydromorphone HCl (Dilaudid) 2 mg STK-MED ONCE .ROUTE ; Start 09/25/21 at 10:44; Stop 09/25/21 at 15:03; Status DC Fentanyl Citrate (Fentanyl 2ml Vial) 100 mcg STK-MED ONCE .ROUTE ; Start 09/25/21 at 13:26; Stop 09/25/21 at 15:04; Status DC Morphine Sulfate (Morphine Sulfate) 2 mg STK-MED ONCE .ROUTE ; Start 09/25/21 at 14:04; Stop 09/25/21 at 15:05; Status DC Hydromorphone HCl (Dilaudid) 2 mg STK-MED ONCE .ROUTE ; Start 09/25/21 at 14:54; Stop 09/25/21 at 15:06; Status DC Menthol/Methyl Salicylate (Bengay Greaseless Cream) 1 crispin PRN Q30MIN PRN TP MUSCLE PAIN Last administered on 10/02/21at 21:03; Start 09/25/21 at 18:45 Mupirocin (Bactroban) 1 crispin BID NS Last administered on 10/03/21at 08:04; Start 09/26/21 at 09:00 Dexamethasone Sodium Phosphate (Decadron) 10 mg 1X ONCE IVP Last administered on 09/26/21at 07:31; Start 09/26/21 at 07:30; Stop 09/26/21 at 07:31; Status DC Cefazolin Sodium 1 gm/Sodium Chloride 1,000 ml @ 1,000 mls/hr 1X ONCE IRR Last administered on 09/26/21at 11:52; Start 09/26/21 at 10:30; Stop 09/26/21 at 11:29; Status DC Cefazolin Sodium (Ancef) 1 gm STK-MED ONCE IVP ; Start 09/26/21 at 10:05; Stop 09/26/21 at 10:06; Status DC Lidocaine HCl (Lidocaine Pf 2% Vial) 5 ml STK-MED ONCE .ROUTE ; Start 09/26/21 at 10:18; Stop 09/26/21 at 10:18; Status DC Ondansetron HCl (Zofran) 4 mg STK-MED ONCE .ROUTE ; Start 09/26/21 at 10:18; Stop 09/26/21 at 10:18; Status DC Propofol (Diprivan) 200 mg STK-MED ONCE IV ; Start 09/26/21 at 10:18; Stop 09/26/21 at 10:19; Status DC Dexamethasone Sodium Phosphate (Decadron) 4 mg STK-MED ONCE .ROUTE ; Start 09/26/21 at 10:18; Stop 09/26/21 at 10:19; Status DC Sevoflurane (Ultane) 30 ml STK-MED ONCE IH ; Start 09/26/21 at 10:18; Stop 09/26/21 at 10:19; Status DC Fentanyl Citrate (Fentanyl 2ml Vial) 100 mcg STK-MED ONCE .ROUTE ; Start 09/26/21 at 10:19; Stop 09/26/21 at 10:19; Status DC Rocuronium [place] (Zemuron) 50 mg STK-MED ONCE .ROUTE ; Start 09/26/21 at 10:19; Stop 09/26/21 at 10:19; Status DC Insulin Human Lispro (HumaLOG VIAL for OP,RR ONLY) 0-10 units PRN Q1HR PRN SQ PER PROTOCOL Last administered on 09/26/21at 15:11; Start 09/26/21 at 10:30; Stop 09/26/21 at 18:00; Status DC Sugammadex Sodium (Bridion) 200 mg 1X ONCE IVP Last administered on 09/26/21at 10:30; Start 09/26/21 at 10:30; Stop 09/26/21 at 10:31; Status DC Gelatin (Gelfoam Size 100) 1 each STK-MED ONCE .ROUTE Last administered on 09/26/21at 11:52; Start 09/26/21 at 10:30; Stop 09/26/21 at 10:30; Status DC Bupivacaine HCl/ Epinephrine Bitart (Sensorcain-Epi 0.5% Kit) 30 ml STK-MED ONCE .ROUTE ; Start 09/26/21 at 10:30; Stop 09/26/21 at 10:30; Status DC Ketorolac Tromethamine (Toradol Im) 60 mg STK-MED ONCE .ROUTE ; Start 09/26/21 at 10:30; Stop 09/26/21 at 10:30; Status DC Thrombin 20,000 unit STK-MED ONCE TP Last administered on 09/26/21at 11:52; Start 09/26/21 at 10:30; Stop 09/26/21 at 10:31; Status DC Cefazolin Sodium/ Dextrose 50 ml @ As Directed STK-MED ONCE IV ; Start 09/26/21 at 10:32; Stop 09/26/21 at 10:32; Status DC Vancomycin HCl 1 gm/Sodium Chloride 250 ml @ 250 mls/hr PREOP PRN PRN IV PRIOR TO PROCEDURE; Start 09/26/21 at 10:45; Stop 09/26/21 at 14:00; Status DC Cefazolin Sodium/ Dextrose 50 ml @ 100 mls/hr 1X ONCE IV Last administered on 09/26/21at 11:00; Start 09/26/21 at 11:00; Stop 09/26/21 at 11:29; Status DC Dexamethasone Sodium Phosphate (Decadron) 4 mg STK-MED ONCE .ROUTE ; Start 09/26/21 at 11:04; Stop 09/26/21 at 11:04; Status DC Glycopyrrolate (Robinul) 1 mg STK-MED ONCE .ROUTE ; Start 09/26/21 at 11:04; Stop 09/26/21 at 11:04; Status DC Hydromorphone HCl (Dilaudid) 2 mg STK-MED ONCE .ROUTE ; Start 09/26/21 at 11:56; Stop 09/26/21 at 11:56; Status DC Fentanyl Citrate (Fentanyl 2ml Vial) 25 mcg PRN Q5MIN PRN IVP MILD PAIN 1-3; Start 09/26/21 at 14:30; Stop 09/26/21 at 18:15; Status DC Fentanyl Citrate (Fentanyl 2ml Vial) 50 mcg PRN Q5MIN PRN IVP MODERATE PAIN 4- 6; Start 09/26/21 at 14:30; Stop 09/26/21 at 18:15; Status DC Morphine Sulfate (Morphine Sulfate) 1 mg PRN Q10MIN PRN IVP SEVERE PAIN 7-10; Start 09/26/21 at 14:30; Stop 09/26/21 at 18:15; Status DC Ringer's Solution 1,000 ml @ 30 mls/hr Q24H IV Last administered on 09/26/21at 15:18; Start 09/26/21 at 14:30; Stop 09/26/21 at 21:00; Status DC Hydromorphone HCl (Dilaudid) 0.5 mg PRN Q10MIN PRN IVP SEVERE PAIN 7-10, 2nd CHOICE; Start 09/26/21 at 14:30; Stop 09/26/21 at 18:15; Status DC Prochlorperazine Edisylate (Compazine) 5 mg PACU PRN PRN IVP NAUSEA, MRX1; Start 09/26/21 at 14:30; Stop 09/26/21 at 21:00; Status DC Fentanyl Citrate (Fentanyl 2ml Vial) 100 mcg STK-MED ONCE .ROUTE ; Start 09/26/21 at 14:23; Stop 09/26/21 at 14:25; Status DC Fentanyl Citrate (Fentanyl 2ml Vial) 25 mcg PRN Q5MIN PRN IVP MILD PAIN 1-3; Start 09/26/21 at 14:30; Stop 09/27/21 at 14:29; Status UNV Fentanyl Citrate (Fentanyl 2ml Vial) 50 mcg PRN Q5MIN PRN IVP MODERATE PAIN 4- 6; Start 09/26/21 at 14:30; Stop 09/27/21 at 14:29; Status UNV Morphine Sulfate (Morphine Sulfate) 1 mg PRN Q10MIN PRN IVP SEVERE PAIN 7-10; Start 09/26/21 at 14:30; Stop 09/27/21 at 14:29; Status UNV Ringer's Solution 1,000 ml @ 30 mls/hr Q24H IV ; Start 09/26/21 at 14:30; Stop 09/27/21 at 02:29; Status UNV Hydromorphone HCl (Dilaudid) 0.5 mg PRN Q10MIN PRN IVP SEVERE PAIN 7-10, 2nd CHOICE; Start 09/26/21 at 14:30; Stop 09/27/21 at 14:29; Status UNV Prochlorperazine Edisylate (Compazine) 5 mg PACU PRN PRN IVP NAUSEA, MRX1; Start 09/26/21 at 14:30; Stop 09/27/21 at 14:29; Status UNV Dexamethasone Sodium Phosphate (Decadron) 4 mg Q6HRS IVP Last administered on 09/28/21at 05:06; Start 09/26/21 at 18:00; Stop 09/28/21 at 06:00; Status DC Sodium Chloride 1,000 ml @ 100 mls/hr Q10H IV Last administered on 10/03/21at 14:23; Start 09/26/21 at 17:30 Cefazolin Sodium (Ancef) 1 gm Q8HRS IVP ; Start 09/27/21 at 06:00; Stop 09/27/21 at 05:47; Status DC Vancomycin HCl 1 gm/Sodium Chloride 250 ml @ 166.667 mls/hr 1X ONCE IV Last administered on 09/27/21at 06:27; Start 09/27/21 at 06:00; Stop 09/27/21 at 07:29; Status DC Gadoterate Meglumine (Clariscan) 19 ml 1X ONCE IVP Last administered on 09/29/21at 10:32; Start 09/29/21 at 08:15; Stop 09/29/21 at 08:17; Status DC Bisacodyl (Dulcolax Supp) 10 mg PRN DAILY PRN AL CONSTIPATION; Start 09/29/21 at 14:15 Lactulose (Lactulose) 20 gm PRN DAILY PRN PO CONSTIPATION Last administered on 10/01/21at 08:35; Start 09/29/21 at 14:30 Ascorbic Acid (Vitamin C) 500 mg DAILY PO Last administered on 10/03/21at 08:03; Start 10/02/21 at 10:00 Levofloxacin/ Dextrose 100 ml @ 100 mls/hr Q24H IV Last administered on 10/02/21at 12:15; Start 10/02/21 at 12:00; Stop 10/03/21 at 08:57; Status DC Levofloxacin/ Dextrose 50 ml @ 50 mls/hr Q24H IV Last administered on 10/03/21at 11:17; Start 10/03/21 at 12:00 Lactobacillus Rhamnosus (Culturelle) 1 cap BID PO ; Start 10/03/21 at 21:00 Active Scripts Active Dok (Docusate Sodium) 100 Mg Capsule 100 Mg PO PRN BID PRN 30 Days Tylenol (Acetaminophen) 325 Mg Tablet 650 Mg PO PRN Q4HRS PRN 30 Days Valium (Diazepam) 5 Mg Tablet 5 Mg PO TID Atorvastatin Calcium 10 Mg Tablet 10 Mg PO QHS Reported Midodrine Hcl 2.5 Mg Tablet 2.5 Mg PO PRN 1X PRN Aspirin 81 Mg Tab.chew 81 Mg PO DAILY Baclofen 10 Mg Tablet 10 Mg PO BID Lyrica (Pregabalin) 100 Mg Capsule 100 Mg PO BID 30 Days Polyethylene Glycol 3350 2,500 Gm Powder 17 Gm PO DAILY 30 Days Oxycodone HCl 5 Mg Tablet 10 Mg PO PRN Q6HRS PRN Micatin (Miconazole Nitrate) 14 Gm Cream..g. 1 Crispin TP TID Tradjenta (Linagliptin) 5 Mg Tablet 5 Mg PO DAILY Lidocaine PATCH (Lidocaine) 1 Each Adh..patch 1 Each TP DAILY REMOVE AFTER 12 HOURS Levemir (Insulin Detemir) 100 Unit/1 Ml Vial 4 Unit SQ HS Hydroxyzine Hcl 25 Mg Tablet 25 Mg PO PRN Q6HRS PRN Fluticasone Propionate Nasal [place] (Fluticasone Propionate) 16 Gm [place].susp 2 [place] NS DAILY Diclofenac Sodium 100 Gm Gel..gram. 100 Gm TP PRN TID PRN Losartan Potassium 100 Mg Tablet 25 Tab PO DAILY08 Vitals/I & O Vital Sign - Last 24 Hours 10/02/21 10/02/21 10/02/21 10/02/21 17:41 18:02 19:34 20:17 Temp 98.9 98.6 98.9 98.6 Pulse 82 79 Resp 16 15 16 14 B/P (MAP) 99/52 (68) 97/50 (66) Pulse Ox 94 92 92 95 O2 Delivery Room Air Room Air O2 Flow Rate 2.0 10/02/21 10/02/21 10/02/21 10/02/21 20:30 21:18 22:39 23:29 Temp 98.4 98.4 Pulse 79 Resp 16 18 18 B/P (MAP) 90/46 (61) Pulse Ox 95 95 95 O2 Delivery Room Air Room Air Room Air Room Air 10/03/21 10/03/21 10/03/21 10/03/21 03:14 03:46 04:36 06:43 Temp 98.2 98.2 Pulse 82 Resp 16 18 20 16 B/P (MAP) 106/60 (75) Pulse Ox 95 95 96 96 O2 Delivery Room Air Room Air Room Air Room Air O2 Flow Rate 2.0 10/03/21 10/03/21 10/03/21 10/03/21 07:13 08:00 08:00 11:17 Temp 97.9 97.9 Pulse 83 Resp 18 16 16 B/P (MAP) 92/56 (68) Pulse Ox 98 98 98 O2 Delivery Room Air Room Air Room Air Room Air 10/03/21 10/03/21 10/03/21 10/03/21 11:47 12:00 13:19 13:49 Temp 98.5 98.5 Pulse 83 Resp 16 16 15 18 B/P (MAP) 111/60 (77) Pulse Ox 97 99 98 O2 Delivery Room Air Room Air Room Air 10/03/21 16:00 Temp 98.7 98.7 Pulse 88 Resp 16 B/P (MAP) 131/62 (85) Pulse Ox 96 O2 Delivery Room Air Intake and Output 10/02/21 10/02/21 10/03/21 15:00 23:00 07:00 Intake Total 180 ml 2329.3 ml 1200 ml Output Total 1825 ml 500 ml 1650 ml Balance -1645 ml 1829.3 ml -450 ml Justifications for Admission Other Justification uncontrolled diabetes KELLEN BRUNO MD Oct 03, 2021 17:01
[2021-10-03] MEDS: LACTOBACILLUS RHAMNOSUS GG 1 CAPSULE. PO SCH (19:24)
[2021-10-03] MEDS: ATORVASTATIN CALCIUM 10 MG TABLET. PO SCH (19:24)
[2021-10-03] MEDS: LIDOCAINE (700MG/PATCH) PATCH. TP SCH ×2 (19:25→23:31)
[2021-10-03 20:50] VITALS: BP 120/62
[2021-10-03] MEDS: INSULIN GLARGINE SYRINGE. SQ SCH (20:56)
[2021-10-03] MEDS: hydrOXYzine 25 MG TABLET PO PRN (23:04)
[2021-10-04] VITALS: BP 109/63
[2021-10-04] MEDS: oxyCODONE IR 5 MG TABLET PO PRN ×4 (03:01→23:11)
[2021-10-04 04:00] VITALS: BP 116/60
[2021-10-04] MEDS: fentaNYL PF VIAL 100 MCG/2 ML VIAL IVP PRN ×2 (05:47→20:10)
[2021-10-04 08:00] VITALS: BP 98/55
[2021-10-04] MEDS: LOSARTAN POTASSIUM 25 MG TABLET. PO SCH (08:00)
[2021-10-04] MEDS: POLYETHYLENE GLYCOL 3350 17 GM PACKET. PO SCH (08:47)
[2021-10-04] MEDS: diazePAM 5 MG TABLET PO SCH ×3 (09:00→20:11)
[2021-10-04] MEDS: FLUTICASONE 50MCG/NASAL SPRAY 16GM BOTTLE. NS SCH (09:00)
[2021-10-04] MEDS: MICONAZOLE NITRATE 2% TOPICAL CREAM 30GM TUBE. TP SCH ×3 (09:00→20:08)
[2021-10-04] MEDS: MUPIROCIN 2 % OINTMENT 22GM TUBE. NS SCH ×2 (09:08→20:09)
[2021-10-04] MEDS: ASCORBIC ACID 500 MG TABLET PO SCH (09:08)
[2021-10-04] MEDS: LACTOBACILLUS RHAMNOSUS GG 1 CAPSULE. PO SCH ×2 (09:08→20:10)
[2021-10-04] MEDS: BACLOFEN 10 MG TABLET. PO SCH ×2 (09:08→20:11)
[2021-10-04] MEDS: LINAGLIPTIN 5 MG TABLET PO SCH (09:08)
[2021-10-04] MEDS: PREGABALIN 50 MG CAPSULE PO SCH ×2 (09:08→20:11)
--- NOTE | 2021-10-04 10:00 | PDOC ---
PROGRESS NOTES Date of Service DATE: 10/04/21 TIME: 09:58 Subjective Subjective No new problems. Objective Objective Vital Signs Date Time Temp Pulse Resp B/P (MAP) Pulse Ox O2 Delivery O2 Flow Rate FiO2 10/04/21 09:44 Room Air 10/04/21 08:00 99.3 73 18 98/55 (69) 98 99.3 10/03/21 20:01 2.0 Intake and Output 10/04/21 07:00 Intake Total 4236 ml Output Total 4200 ml Balance 36 ml Intake Oral 980 ml IV Total 3256 ml Output Urine Total 4200 ml # Bowel Movements 2 Physical Exam Physical Exam He is alert,supine in bed and seems to be comfortable and no change with his neurological status. Plan Plan of Care Awaiting rehab unit transfer when medically stable. Comment Review of Relevant I have reviewed the following items michelle (where applicable) has been applied. Labs Laboratory Tests Test 10/02/21 12:02 10/02/21 17:44 10/02/21 23:05 10/03/21 04:55 Glucose (Fingerstick) 201 mg/dL (70-99) 165 mg/dL (70-99) 153 mg/dL (70-99) White Blood Count 13.7 x10^3/uL (4.0-11.0) Red Blood Count 2.96 x10^6/uL (4.30-5.70) Hemoglobin 8.3 g/dL (13.0-17.5) Hematocrit 25.7 % (39.0-53.0) Mean Corpuscular Volume 87 fL (79-100) Mean Corpuscular Hemoglobin 28 pg (25-35) Mean Corpuscular Hemoglobin Concent 32 g/dL (31-37) Red Cell Distribution Width 14.4 % (11.5-14.5) Platelet Count 217 x10^3/uL (140-400) Neutrophils (%) (Auto) 67 % (31-73) Lymphocytes (%) (Auto) 18 % (24-48) Monocytes (%) (Auto) 11 % (0-9) Eosinophils (%) (Auto) 4 % (0-3) Basophils (%) (Auto) 0 % (0-3) Neutrophils # (Auto) 9.2 x10^3/uL (1.8-7.7) Lymphocytes # (Auto) 2.5 x10^3/uL (1.0-4.8) Monocytes # (Auto) 1.5 x10^3/uL (0.0-1.1) Eosinophils # (Auto) 0.5 x10^3/uL (0.0-0.7) Basophils # (Auto) 0.0 x10^3/uL (0.0-0.2) Sodium Level 137 mmol/L (136-145) Potassium Level 4.4 mmol/L (3.5-5.1) Chloride Level 104 mmol/L (98-107) Carbon Dioxide Level 30 mmol/L (21-32) Anion Gap 3 (6-14) Blood Urea Nitrogen 13 mg/dL (8-26) Creatinine 0.8 mg/dL (0.7-1.3) Estimated GFR (Cockcroft-Gault) 118.9 Glucose Level 161 mg/dL (70-99) Calcium Level 7.7 mg/dL (8.5-10.1) Test 10/03/21 11:05 10/03/21 20:53 10/04/21 08:37 Coronavirus (COVID-19)(PCR) Not detected (NOT DETECTD) Glucose (Fingerstick) 166 mg/dL (70-99) 143 mg/dL (70-99) Laboratory Tests Test 10/03/21 11:05 10/03/21 20:53 10/04/21 08:37 Coronavirus (COVID-19)(PCR) Not detected (NOT DETECTD) Glucose (Fingerstick) 166 mg/dL (70-99) 143 mg/dL (70-99) Microbiology 10/01/21 Urine Culture - Final, Complete Escherichia Coli Escherichia Coli#2 Medications Current Medications Fentanyl Citrate (Fentanyl 2ml Vial) 25 mcg PRN Q5MIN PRN IVP MILD PAIN 1-3; Start 09/25/21 at 06:00; Stop 09/25/21 at 20:00; Status DC Fentanyl Citrate (Fentanyl 2ml Vial) 50 mcg PRN Q5MIN PRN IVP MODERATE PAIN 4-6 Last administered on 09/25/21at 13:48; Start 09/25/21 at 06:00; Stop 09/25/21 at 20:00; Status DC Morphine Sulfate (Morphine Sulfate) 1 mg PRN Q10MIN PRN IVP SEVERE PAIN 7-10 Last administered on 09/25/21at 14:21; Start 09/25/21 at 06:00; Stop 09/25/21 at 20:00; Status DC Ringer's Solution 1,000 ml @ 30 mls/hr Q24H IV Last administered on 09/25/21at 1 2:54; Start 09/25/21 at 06:00; Stop 09/25/21 at 17:59; Status DC Hydromorphone HCl (Dilaudid) 0.5 mg PRN Q10MIN PRN IVP SEVERE PAIN 7-10, 2nd CHOICE Last administered on 09/25/21at 16:53; Start 09/25/21 at 06:00; Stop 09/25/21 at 20:00; Status DC Prochlorperazine Edisylate (Compazine) 5 mg PACU PRN PRN IVP NAUSEA, MRX1; Start 09/25/21 at 06:00; Stop 09/25/21 at 20:00; Status DC Cefazolin Sodium 1 gm/Sodium Chloride 1,000 ml @ 1,000 mls/hr 1X ONCE IRR Last administered on 09/25/21at 10:14; Start 09/25/21 at 06:00; Stop 09/25/21 at 06:59; Status DC Cefazolin Sodium/ Dextrose 50 ml @ 100 mls/hr 1X PREOP PRN IV PRIOR TO PROCEDURE Last administered on 09/25/21at 09:30; Start 09/25/21 at 06:00; Stop 09/25/21 at 13:39; Status DC Insulin Human Lispro (HumaLOG VIAL for OP,RR ONLY) 0-10 units PRN Q1HR PRN SQ PER PROTOCOL Last administered on 09/25/21at 17:01; Start 09/25/21 at 07:00; Stop 09/25/21 at 18:00; Status DC Bupivacaine HCl/ Epinephrine Bitart (Sensorcain-Epi 0.5% Kit) 30 ml STK-MED ONCE INJ Last administered on 09/25/21at 10:14; Start 09/25/21 at 10:14; Stop 09/25/21 at 10:30; Status DC Ketorolac Tromethamine (Toradol Im) 60 mg STK-MED ONCE INJ Last administered on 09/25/21at 10:14; Start 09/25/21 at 10:14; Stop 09/25/21 at 10:30; Status DC Thrombin 20,000 unit STK-MED ONCE TP Last administered on 09/25/21 10:14; Start 09/25/21 at 10:14; Stop 09/25/21 at 10:30; Status DC Gelatin (Gelfoam Size 100) 1 each STK-MED ONCE TP Last administered on 09/25/21 10:14; Start 09/25/21 at 10:14; Stop 09/25/21 at 10:30; Status DC Acetaminophen (Tylenol) 650 mg PRN Q4HRS PRN PO TEMP OVER 100.4F OR MILD PAIN Last administered on 10/02/21 14:14; Start 09/25/21 at 12:30 Aspirin (Aspirin Chewable) 81 mg DAILY PO Last administered on 09/26/21 08:30; Start 09/26/21 at 09:00; Stop 09/28/21 at 17:19; Status DC Atorvastatin Calcium (Lipitor) 10 mg QHS PO Last administered on 10/03/21 19:24; Start 09/25/21 at 21:00 Baclofen (Lioresal) 10 mg BID PO Last administered on 10/04/21 09:08; Start 09/25/21 at 21:00 Diazepam (Valium) 5 mg TID PO Last administered on 10/03/21 19:25; Start 09/25/21 at 14:00 Docusate Sodium (Colace) 100 mg PRN BID PRN PO HARD STOOLS Last administered on 10/01/21 20:28; Start 09/25/21 at 12:30 Fluticasone Propionate (Flonase) 2 spray DAILY NS Last administered on 10/03/21 t 08:03; Start 09/26/21 at 09:00 Hydroxyzine HCl (Atarax) 25 mg PRN Q6HRS PRN PO itching Last administered on 10/03/21 23:04; Start 09/25/21 at 12:30 Lidocaine (Lidoderm) 1 patch QHS TP Last administered on 10/03/21 23:31; Start 09/25/21 at 20:00 Linagliptin (Tradjenta) 5 mg DAILY PO Last administered on 10/04/21 09:08; Start 09/25/21 at 13:00 Miconazole Nitrate (Monistat-Derm) 1 crispin TID TP Last administered on 10/03/21 08:03; Start 09/25/21 at 21:00 Midodrine (Proamatine) 2.5 mg PRN 1X PRN PO hypotension Last administered on 09/27/21 08:56; Start 09/25/21 at 12:30 Oxycodone HCl (Roxicodone) 10 mg PRN Q6HRS PRN PO MODERATE-SEVERE PAIN Last administered on 10/04/21 09:08; Start 09/25/21 at 12:30 Diclofenac Sodium (Voltaren) 1 crispin PRN TID PRN TP PAIN CONTROL; Start 09/25/21 at 13:15; Stop 09/25/21 at 18:37; Status DC Insulin Glargine (Lantus Syringe) 4 unit QHS SQ Last administered on 10/03/21at 20:56; Start 09/25/21 at 21:00 Losartan Potassium (Cozaar) 25 mg DAILY08 PO Last administered on 10/01/21at 08:34; Start 09/26/21 at 08:00 Polyethylene Glycol (miraLAX PACKET) 17 gm DAILY PO Last administered on 10/03/21 08:02; Start 09/25/21 at 14:00 Pregabalin (Lyrica) 100 mg BID PO Last administered on 10/04/21 09:08; Start 09/25/21 at 21:00 Acetaminophen (Tylenol) 650 mg PRN Q6HRS PRN PO MILD PAIN / TEMP > 100.3'F; Start 09/25/21 at 12:30; Status Cancel Al Hydroxide/Mg Hydroxide (Mylanta Plus Xs) 30 ml PRN Q3HRS PRN PO HEARTBURN / GAS; Start 09/25/21 at 12:30 Calcium Carbonate/ Glycine (Tums) 500 mg PRN Q3HRS PRN PO INDIGESTION; Start 09/25/21 at 12:30 Diphenhydramine HCl (Benadryl) 25 mg PRN Q6HRS PRN PO ITCHING; Start 09/25/21 at 12:30 Naloxone HCl (Narcan) 0.1 mg PRN Q2MIN PRN IV SEE COMMENTS; Start 09/25/21 at 12:30 Sodium Chloride (Normal Saline Flush) 3 ml QSHIFT PRN IV AFTER MEDS AND BLOOD DRAWS; Start 09/25/21 at 12:30 Potassium Chloride/Sodium Chloride 1,000 ml @ 75 mls/hr [id number] IV Last administered on 09/26/21at 07:00; Start 09/25/21 at 12:30; Stop 09/26/21 at 17:33; Status DC Magnesium Hydroxide (Milk Of Magnesia) 2,400 mg PRN Q12HR PRN PO CONSTIPATION; Start 09/25/21 at 12:30 Cefazolin Sodium (Ancef) 1 gm Q8H IVP Last administered on 09/26/21at 04:14; Start 09/25/21 at 18:00; Stop 09/26/21 at 10:01; Status DC Fentanyl Citrate (Fentanyl 2ml Vial) 50 mcg PRN Q2HR PRN IVP MODERATE TO SEVERE PAIN Last administered on 10/04/21at 05:47; Start 09/25/21 at 12:30 Dextrose (Dextrose 50%-Water Syringe) 12.5 gm PRN Q15MIN PRN IV SEE COMMENTS; Start 09/25/21 at 12:30 Dextrose (Iv Dextrose 5%) 250 ml PRN Q15MIN PRN IV SEE COMMENTS; Start 09/25/21 at 12:30 Gelatin (Gelfoam Size 100) 1 each STK-MED ONCE .ROUTE ; Start 09/25/21 at 06:37; Stop 09/25/21 at 14:55; Status DC Bupivacaine HCl/ Epinephrine Bitart (Sensorcain-Epi 0.5% Kit) 30 ml STK-MED ONCE .ROUTE ; Start 09/25/21 at 06:37; Stop 09/25/21 at 14:55; Status DC Ketorolac Tromethamine (Toradol Im) 60 mg STK-MED ONCE .ROUTE ; Start 09/25/21 at 06:37; Stop 09/25/21 at 14:55; Status DC Thrombin 20,000 unit STK-MED ONCE TP ; Start 09/25/21 at 06:38; Stop 09/25/21 at 14:55; Status DC Propofol (Diprivan) 200 mg STK-MED ONCE IV ; Start 09/25/21 at 05:54; Stop 09/25/21 at 14:57; Status DC Lidocaine HCl (Lidocaine Pf 2% Vial) 5 ml STK-MED ONCE .ROUTE ; Start 09/25/21 at 05:54; Stop 09/25/21 at 14:57; Status DC Ondansetron HCl (Zofran) 4 mg STK-MED ONCE .ROUTE ; Start 09/25/21 at 05:54; Stop 09/25/21 at 14:57; Status DC Phenylephrine HCl (Ramone-Synephrine Inj) 10 mg STK-MED ONCE .ROUTE ; Start 09/25/21 at 05:54; Stop 09/25/21 at 14:57; Status DC Propofol 50 ml @ As Directed STK-MED ONCE IV ; Start 09/25/21 at 05:54; Stop 09/25/21 at 14:57; Status DC Dexamethasone Sodium Phosphate (Decadron) 4 mg STK-MED ONCE .ROUTE ; Start 09/25/21 at 05:54; Stop 09/25/21 at 14:57; Status DC Fentanyl Citrate (Fentanyl 2ml Vial) 100 mcg STK-MED ONCE .ROUTE ; Start 09/25/21 at 05:54; Stop 09/25/21 at 14:57; Status DC Succinylcholine Chloride (Anectine) 200 mg STK-MED ONCE .ROUTE ; Start 09/25/21 at 05:54; Stop 09/25/21 at 14:57; Status DC Remifentanil HCl (Ultiva) 1 mg STK-MED ONCE IV ; Start 09/25/21 at 05:54; Stop 09/25/21 at 14:57; Status DC Glycopyrrolate (Robinul) 1 mg STK-MED ONCE .ROUTE ; Start 09/25/21 at 07:11; Stop 09/25/21 at 15:01; Status DC Propofol 50 ml @ As Directed STK-MED ONCE IV ; Start 09/25/21 at 08:07; Stop 09/25/21 at 15:02; Status DC Ketamine HCl (Ketamine) 50 mg STK-MED ONCE .ROUTE ; Start 09/25/21 at 08:15; Stop 09/25/21 at 15:02; Status DC Hydromorphone HCl (Dilaudid) 2 mg STK-MED ONCE .ROUTE ; Start 09/25/21 at 10:44; Stop 09/25/21 at 15:03; Status DC Fentanyl Citrate (Fentanyl 2ml Vial) 100 mcg STK-MED ONCE .ROUTE ; Start 09/25/21 at 13:26; Stop 09/25/21 at 15:04; Status DC Morphine Sulfate (Morphine Sulfate) 2 mg STK-MED ONCE .ROUTE ; Start 09/25/21 at 14:04; Stop 09/25/21 at 15:05; Status DC Hydromorphone HCl (Dilaudid) 2 mg STK-MED ONCE .ROUTE ; Start 09/25/21 at 14:54; Stop 09/25/21 at 15:06; Status DC Menthol/Methyl Salicylate ([place] Greaseless Cream) 1 crispin PRN Q30MIN PRN TP MUSCLE PAIN Last administered on 10/02/21at 21:03; Start 09/25/21 at 18:45 Mupirocin (Bactroban) 1 crispin BID NS Last administered on 10/04/21at 09:08; Start 09/26/21 at 09:00 Dexamethasone Sodium Phosphate (Decadron) 10 mg 1X ONCE IVP Last administered on 09/26/21at 07:31; Start 09/26/21 at 07:30; Stop 09/26/21 at 07:31; Status DC Cefazolin Sodium 1 gm/Sodium Chloride 1,000 ml @ 1,000 mls/hr 1X ONCE IRR Last administered on 09/26/21at 11:52; Start 09/26/21 at 10:30; Stop 09/26/21 at 11:29; Status DC Cefazolin Sodium (Ancef) 1 gm STK-MED ONCE IVP ; Start 09/26/21 at 10:05; Stop 09/26/21 at 10:06; Status DC Lidocaine HCl (Lidocaine Pf 2% Vial) 5 ml STK-MED ONCE .ROUTE ; Start 09/26/21 at 10:18; Stop 09/26/21 at 10:18; Status DC Ondansetron HCl (Zofran) 4 mg STK-MED ONCE .ROUTE ; Start 09/26/21 at 10:18; Stop 09/26/21 at 10:18; Status DC Propofol (Diprivan) 200 mg STK-MED ONCE IV ; Start 09/26/21 at 10:18; Stop 09/26/21 at 10:19; Status DC Dexamethasone Sodium Phosphate (Decadron) 4 mg STK-MED ONCE .ROUTE ; Start 09/26/21 at 10:18; Stop 09/26/21 at 10:19; Status DC Sevoflurane (Ultane) 30 ml STK-MED ONCE IH ; Start 09/26/21 at 10:18; Stop 09/26/21 at 10:19; Status DC Fentanyl Citrate (Fentanyl 2ml Vial) 100 mcg STK-MED ONCE .ROUTE ; Start 09/26/21 at 10:19; Stop 09/26/21 at 10:19; Status DC Rocuronium [place] (Zemuron) 50 mg STK-MED ONCE .ROUTE ; Start 09/26/21 at 10:19; Stop 09/26/21 at 10:19; Status DC Insulin Human Lispro (HumaLOG VIAL for OP,RR ONLY) 0-10 units PRN Q1HR PRN SQ PER PROTOCOL Last administered on 09/26/21at 15:11; Start 09/26/21 at 10:30; Stop 09/26/21 at 18:00; Status DC Sugammadex Sodium (Bridion) 200 mg 1X ONCE IVP Last administered on 09/26/21at 10:30; Start 09/26/21 at 10:30; Stop 09/26/21 at 10:31; Status DC Gelatin (Gelfoam Size 100) 1 each STK-MED ONCE .ROUTE Last administered on 09/26/21at 11:52; Start 09/26/21 at 10:30; Stop 09/26/21 at 10:30; Status DC Bupivacaine HCl/ Epinephrine Bitart (Sensorcain-Epi 0.5% Kit) 30 ml STK-MED ONCE .ROUTE ; Start 09/26/21 at 10:30; Stop 09/26/21 at 10:30; Status DC Ketorolac Tromethamine (Toradol Im) 60 mg STK-MED ONCE .ROUTE ; Start 09/26/21 at 10:30; Stop 09/26/21 at 10:30; Status DC Thrombin 20,000 unit STK-MED ONCE TP Last administered on 09/26/21at 11:52; Start 09/26/21 at 10:30; Stop 09/26/21 at 10:31; Status DC Cefazolin Sodium/ Dextrose 50 ml @ As Directed STK-MED ONCE IV ; Start 09/26/21 at 10:32; Stop 09/26/21 at 10:32; Status DC Vancomycin HCl 1 gm/Sodium Chloride 250 ml @ 250 mls/hr PREOP PRN PRN IV PRIOR TO PROCEDURE; Start 09/26/21 at 10:45; Stop 09/26/21 at 14:00; Status DC Cefazolin Sodium/ Dextrose 50 ml @ 100 mls/hr 1X ONCE IV Last administered on 09/26/21at 11:00; Start 09/26/21 at 11:00; Stop 09/26/21 at 11:29; Status DC Dexamethasone Sodium Phosphate (Decadron) 4 mg STK-MED ONCE .ROUTE ; Start at 11:04; Stop 09/26/21 at 11:04; Status DC Glycopyrrolate (Robinul) 1 mg STK-MED ONCE .ROUTE ; Start 09/26/21 at 11:04; Stop 09/26/21 at 11:04; Status DC Hydromorphone HCl (Dilaudid) 2 mg STK-MED ONCE .ROUTE ; Start 09/26/21 at 11:56; Stop 09/26/21 at 11:56; Status DC Fentanyl Citrate (Fentanyl 2ml Vial) 25 mcg PRN Q5MIN PRN IVP MILD PAIN 1-3; Start 09/26/21 at 14:30; Stop 09/26/21 at 18:15; Status DC Fentanyl Citrate (Fentanyl 2ml Vial) 50 mcg PRN Q5MIN PRN IVP MODERATE PAIN 4- 6; Start 09/26/21 at 14:30; Stop 09/26/21 at 18:15; Status DC Morphine Sulfate (Morphine Sulfate) 1 mg PRN Q10MIN PRN IVP SEVERE PAIN 7-10; Start 09/26/21 at 14:30; Stop 09/26/21 at 18:15; Status DC Ringer's Solution 1,000 ml @ 30 mls/hr Q24H IV Last administered on 09/26/21at 15:18; Start 09/26/21 at 14:30; Stop 09/26/21 at 21:00; Status DC Hydromorphone HCl (Dilaudid) 0.5 mg PRN Q10MIN PRN IVP SEVERE PAIN 7-10, 2nd CHOICE; Start 09/26/21 at 14:30; Stop 09/26/21 at 18:15; Status DC Prochlorperazine Edisylate (Compazine) 5 mg PACU PRN PRN IVP NAUSEA, MRX1; Start 09/26/21 at 14:30; Stop 09/26/21 at 21:00; Status DC Fentanyl Citrate (Fentanyl 2ml Vial) 100 mcg STK-MED ONCE .ROUTE ; Start 09/26/21 at 14:23; Stop 09/26/21 at 14:25; Status DC Fentanyl Citrate (Fentanyl 2ml Vial) 25 mcg PRN Q5MIN PRN IVP MILD PAIN 1-3; Start 09/26/21 at 14:30; Stop 09/27/21 at 14:29; Status UNV Fentanyl Citrate (Fentanyl 2ml Vial) 50 mcg PRN Q5MIN PRN IVP MODERATE PAIN 4- 6; Start 09/26/21 at 14:30; Stop 09/27/21 at 14:29; Status UNV Morphine Sulfate (Morphine Sulfate) 1 mg PRN Q10MIN PRN IVP SEVERE PAIN 7-10; Start 09/26/21 at 14:30; Stop 09/27/21 at 14:29; Status UNV Ringer's Solution 1,000 ml @ 30 mls/hr Q24H IV ; Start 09/26/21 at 14:30; Stop 09/27/21 at 02:29; Status UNV Hydromorphone HCl (Dilaudid) 0.5 mg PRN Q10MIN PRN IVP SEVERE PAIN 7-10, 2nd CHOICE; Start 09/26/21 at 14:30; Stop 09/27/21 at 14:29; Status UNV Prochlorperazine Edisylate (Compazine) 5 mg PACU PRN PRN IVP NAUSEA, MRX1; Start 09/26/21 at 14:30; Stop 09/27/21 at 14:29; Status UNV Dexamethasone Sodium Phosphate (Decadron) 4 mg Q6HRS IVP Last administered on 09/28/21at 05:06; Start 09/26/21 at 18:00; Stop 09/28/21 at 06:00; Status DC Sodium Chloride 1,000 ml @ 100 mls/hr Q10H IV Last administered on 10/03/21at 22:53; Start 09/26/21 at 17:30 Cefazolin Sodium (Ancef) 1 gm Q8HRS IVP ; Start 09/27/21 at 06:00; Stop 09/27/21 at 05:47; Status DC Vancomycin HCl 1 gm/Sodium Chloride 250 ml @ 166.667 mls/hr 1X ONCE IV Last administered on 09/27/21at 06:27; Start 09/27/21 at 06:00; Stop 09/27/21 at 07:29; Status DC Gadoterate Meglumine (Clariscan) 19 ml 1X ONCE IVP Last administered on 09/29/21at 10:32; Start 09/29/21 at 08:15; Stop 09/29/21 at 08:17; Status DC Bisacodyl (Dulcolax Supp) 10 mg PRN DAILY PRN [place] CONSTIPATION; Start 09/29/21 at 14:15 Lactulose (Lactulose) 20 gm PRN DAILY PRN PO CONSTIPATION Last administered on 10/01/21at 08:35; Start 09/29/21 at 14:30 Ascorbic Acid (Vitamin C) 500 mg DAILY PO Last administered on 10/04/21at 09:08; Start 10/02/21 at 10:00 Levofloxacin/ Dextrose 100 ml @ 100 mls/hr Q24H IV Last administered on 10/02/21at 12:15; Start 10/02/21 at 12:00; Stop 10/03/21 at 08:57; Status DC Levofloxacin/ Dextrose 50 ml @ 50 mls/hr Q24H IV Last administered on 10/03/21at 11:17; Start 10/03/21 at 12:00 Lactobacillus Rhamnosus (Culturelle) 1 cap BID PO Last administered on 10/04/21at 09:08; Start 10/03/21 at 21:00 Active Scripts Active Dok (Docusate Sodium) 100 Mg Capsule 100 Mg PO PRN BID PRN 30 Days Tylenol (Acetaminophen) 325 Mg Tablet 650 Mg PO PRN Q4HRS PRN 30 Days Valium (Diazepam) 5 Mg Tablet 5 Mg PO TID Atorvastatin Calcium 10 Mg Tablet 10 Mg PO QHS Reported Midodrine Hcl 2.5 Mg Tablet 2.5 Mg PO PRN 1X PRN Aspirin 81 Mg Tab.chew 81 Mg PO DAILY Baclofen 10 Mg Tablet 10 Mg PO BID Lyrica (Pregabalin) 100 Mg Capsule 100 Mg PO BID 30 Days Polyethylene Glycol 3350 2,500 Gm Powder 17 Gm PO DAILY 30 Days Oxycodone HCl 5 Mg Tablet 10 Mg PO PRN Q6HRS PRN Micatin (Miconazole Nitrate) 14 Gm Cream..g. 1 [place]pin TP TID Tradjenta (Linagliptin) 5 Mg Tablet 5 Mg PO DAILY Lidocaine PATCH (Lidocaine) 1 Each Adh..patch 1 Each TP DAILY REMOVE AFTER 12 HOURS Levemir (Insulin Detemir) 100 Unit/1 Ml Vial 4 Unit SQ HS Hydroxyzine Hcl 25 Mg Tablet 25 Mg PO PRN Q6HRS PRN Fluticasone Propionate Nasal [place] (Fluticasone Propionate) 16 Gm [place].susp 2 [place] NS DAILY Diclofenac Sodium 100 Gm Gel..gram. 100 Gm TP PRN TID PRN Losartan Potassium 100 Mg Tablet 25 Tab PO DAILY08 Vitals/I & O Vital Sign - Last 24 Hours 10/03/21 10/03/21 10/03/21 10/03/21 11:17 11:47 12:00 13:19 Temp 98.5 98.5 Pulse 83 Resp 16 16 16 15 B/P (MAP) 111/60 (77) Pulse Ox 98 97 99 O2 Delivery Room Air Room Air Room Air 10/03/21 10/03/21 10/03/21 10/03/21 13:49 16:00 17:20 18:00 Temp 98.7 98.7 Pulse 88 Resp 18 16 16 16 B/P (MAP) 131/62 (85) Pulse Ox 98 96 O2 Delivery Room Air Room Air Room Air 10/03/21 10/03/21 10/03/21 10/03/21 19:31 20:00 20:01 20:50 Temp 99.2 99.2 Pulse 85 Resp 16 B/P (MAP) 120/62 (81) Pulse Ox 96 96 96 O2 Delivery Room Air Room Air Room Air Room Air O2 Flow Rate 2.0 2.0 10/03/21 10/03/21 10/04/21 10/04/21 22:53 23:25 00:00 03:01 Temp 99.3 99.3 Pulse 85 Resp 16 16 18 16 B/P (MAP) 109/63 (78) Pulse Ox 96 93 94 95 O2 Delivery Room Air Room Air Room Air 210/04/21 10/04/21 10/04/21 03:33 04:00 05:47 06:20 Temp 99.6 99.6 Pulse 82 Resp 14 16 14 15 B/P (MAP) 116/60 (78) Pulse Ox 96 96 95 96 O2 Delivery Room Air Room Air Room Air Room Air 10/04/21 10/04/21 10/04/21 10/04/21 08:00 08:00 08:00 09:08 Temp 99.3 99.3 Pulse 73 73 Resp 18 B/P (MAP) 98/55 98/55 (69) Pulse Ox 98 O2 Delivery Room Air Room Air Room Air 10/04/21 09:44 O2 Delivery Room Air Intake and Output 10/03/21 10/03/21 10/04/21 15:00 23:00 07:00 Intake Total 290 ml 2015 ml 1931 ml Output Total 1200 ml 800 ml 2200 ml Balance -910 ml 1215 ml -269 ml Justifications for Admission Other Justification uncontrolled diabetes TERRY JURADO MD Oct 04, 2021 10:00
--- NOTE | 2021-10-04 10:54 | PDOC ---
[facility] PROGRESS NOTE Date of Service DOS: DATE: 10/04/21 TIME: 10:51 Chief Complaint Chief Complaint Postoperative posterior cervical laminectomy. Fall in July with cervical fracture (at that time he had a anterior cervical laminectomy) Status post cervical hematoma had to return to the OR History of the following; Cervical laminectomy as per above, diabetes, hypertension, hyperlipidemia, arthritis, GERD, left knee arthroplasty and TIA and also IVC filter and prior ACDF at C4 through C5 and C5 through C6 in 07/2021. History of Present Illness History of Present Illness 10/04/2021 Patient seen and examined again in the ICU He remains very weak cannot move his legs was able to move his hands His sister is present I called case management they are checking into possibly if he could go to rehab [facility] Chart reviewed 10/03/2021 Patient seen and examined in the ICU Chart reviewed Discussed with RN Called case management We are hoping to get the patient transferred to [facility] rehab if possible (they are evaluating his admission criteria to rehab) 10/02/2021 Patient seen and examined in the ICU He is still unable to move his legs He is able to move his hands and arms slightly but is very weak at bedside Chart reviewed Discussed with RN I called case management to see if maybe he could go to [facility] rehab sometime soon 10/01 Patient evaluated examined at bedside. Continues to improve. Continue rehab. Plan discussed with bedside RN. 09/30 Patient evaluated examined at bedside. Clinically about the same from yesterday. Continue rehab modalities. Labs stable. Plan discussed with bedside RN. 09/29 Patient evaluated at bedside. Underwent MRI this morning. Symptoms very similar to yesterday but he feels like he is regaining some function. Pain controlled. PT OT. Hemoglovin stable. 09/28 Evaluate examined at bedside. Resting in bed had no complaints to me. Said pain is quite improved. Did okay with transfusion yesterday. Continue current treatments. PT/OT. Discussed with bedside RN. Roxi 09/27 Patient evaluated examined at bedside. Was resting in bed easily awoken able to answer some questions. Some movement in his upper extremities but very limited in lower. Transfuse 1 unit today. Plan discussed with RN. Vitals/I&O Vitals/I&O: Vital Signs Date Time Temp Pulse Resp B/P (MAP) Pulse Ox O2 Delivery O2 Flow Rate FiO2 2/16/22 09:44 Room Air 10/04/21 08:00 99.3 73 18 98/55 (69) 98 99.3 10/03/21 20:01 2.0 I & O 10/03/21 10/03/21 10/04/21 15:00 23:00 07:00 Intake Total 290 ml 2015 ml 1931 ml Output Total 1200 ml 800 ml 2200 ml Balance -910 ml 1215 ml -269 ml Physical Exam General: Alert, Oriented X3, Cooperative Heart: Regular rate Lungs: Clear Abdomen: Normal bowel sounds, Soft, No tenderness Extremities: No edema, Normal pulses Skin: Other (dressing dry and intact) Labs Labs: Laboratory Tests Test 10/03/21 11:05 10/03/21 20:53 10/04/21 08:37 Coronavirus (COVID-19)(PCR) Not detected (NOT DETECTD) Glucose (Fingerstick) 166 mg/dL (70-99) 143 mg/dL (70-99) Assessment and Plan Assessmemt and Plan Postoperative posterior cervical laminectomy. Fall in July with cervical fracture (at that time he had a anterior cervical laminectomy) Status post cervical hematoma had to return to the OR New UTI History of the following; Cervical laminectomy as per above, diabetes, hypertension, hyperlipidemia, arthritis, GERD, left knee arthroplasty and TIA and also IVC filter and prior ACDF at C4 through C5 and C5 through C6 in 07/2021. Plan ICU monitoring PT OT Wound long-term meds DVT prophylaxis Added Levaquin for UTI As needed Valium Continue Lyrica Full code Rehab hospital [facility] evaluating patient Discussed with case management to see if we could arrange it (they are evaluating his admission criteria) Comment Review of Relevant I have reviewed the following items michelle (where applicable) has been applied. Medications: Current Medications Medications (Trade) Dose Ordered Sig/[place] Route PRN Reason Start Time Stop Time Status Last Admin Dose Admin Levofloxacin/ Dextrose 50 ml @ 50 mls/hr Q24H IV 10/03/21 12:00 10/03/21 11:17 Lactobacillus Rhamnosus (Culturelle) 1 cap BID PO 10/03/21 21:00 10/04/21 09:08 Justifications for Admission Other Justification uncontrolled diabetes JANANIAL K III DO Oct 04, 2021 10:53
[2021-10-04] MEDS: IV 1/2 NORMAL SALINE 1,000 ML IV SCH ×2 (11:39→19:13)
[2021-10-04 11:49] VITALS: BP 116/59
--- NOTE | 2021-10-04 13:32 | PDOC ---
PROGRESS NOTES Date of Service DATE: 10/04/21 TIME: 13:29 Subjective Subjective POD #8 S/P Evacuation of epidural hematoma, s/p cervical laminectomy and fusion 09/25/21 had increased neck pain overnight , now better and well controlled Objective Objective Vital Signs Date Time Temp Pulse Resp B/P (MAP) Pulse Ox O2 Delivery O2 Flow Rate FiO2 10/04/21 11:49 98.7 79 18 116/59 (78) 95 Room Air 98.7 10/03/21 20:01 2.0 Intake and Output 10/04/21 07:00 Intake Total 4236 ml Output Total 4200 ml Balance 36 ml Intake Oral 980 ml IV Total 3256 ml Output Urine Total 4200 ml # Bowel Movements 2 Physical Exam General: Alert, Oriented X3, Cooperative Neuro: Normal speech, Other (sensation intact in upper and lower extremities, moves upper extremities with 3/5 strength, hand grasps slightly stronger- finger extension improved, slight movement of right great toe) Skin: Other (dressing C,D,I, Flat) Plan Plan of Care continue current care SCDs working on placement to rehab [facility] out in a week Comment Review of Relevant I have reviewed the following items michelle (where applicable) has been applied. Labs Laboratory Tests Test 10/02/21 17:44 10/02/21 23:05 10/03/21 04:55 10/03/21 11:05 Glucose (Fingerstick) 165 mg/dL (70-99) 153 mg/dL (70-99) White Blood Count 13.7 x10^3/uL (4.0-11.0) Red Blood Count 2.96 x10^6/uL (4.30-5.70) Hemoglobin 8.3 g/dL (13.0-17.5) Hematocrit 25.7 % (39.0-53.0) Mean Corpuscular Volume 87 fL (79-100) Mean Corpuscular Hemoglobin 28 pg (25-35) Mean Corpuscular Hemoglobin Concent 32 g/dL (31-37) Red Cell Distribution Width 14.4 % (11.5-14.5) Platelet Count 217 x10^3/uL (140-400) Neutrophils (%) (Auto) 67 % (31-73) Lymphocytes (%) (Auto) 18 % (24-48) Monocytes (%) (Auto) 11 % (0-9) Eosinophils (%) (Auto) 4 % (0-3) Basophils (%) (Auto) 0 % (0-3) Neutrophils # (Auto) 9.2 x10^3/uL (1.8-7.7) Lymphocytes # (Auto) 2.5 x10^3/uL (1.0-4.8) Monocytes # (Auto) 1.5 x10^3/uL (0.0-1.1) Eosinophils # (Auto) 0.5 x10^3/uL (0.0-0.7) Basophils # (Auto) 0.0 x10^3/uL (0.0-0.2) Sodium Level 137 mmol/L (136-145) Potassium Level 4.4 mmol/L (3.5-5.1) Chloride Level 104 mmol/L (98-107) Carbon Dioxide Level 30 mmol/L (21-32) Anion Gap 3 (6-14) Blood Urea Nitrogen 13 mg/dL (8-26) Creatinine 0.8 mg/dL (0.7-1.3) Estimated GFR (Cockcroft-Gault) 118.9 Glucose Level 161 mg/dL (70-99) Calcium Level 7.7 mg/dL (8.5-10.1) Coronavirus (COVID-19)(PCR) Not detected (NOT DETECTD) Test 10/03/21 20:53 10/04/21 08:37 10/04/21 12:35 Glucose (Fingerstick) 166 mg/dL (70-99) 143 mg/dL (70-99) 181 mg/dL (70-99) Laboratory Tests Test 10/03/21 20:53 10/04/21 08:37 10/04/21 12:35 Glucose (Fingerstick) 166 mg/dL (70-99) 143 mg/dL (70-99) 181 mg/dL (70-99) Microbiology 10/01/21 Urine Culture - Final, Complete Escherichia Coli Escherichia Coli#2 Medications Current Medications Fentanyl Citrate (Fentanyl 2ml Vial) 25 mcg PRN Q5MIN PRN IVP MILD PAIN 1-3; Start 09/25/21 at 06:00; Stop 09/25/21 at 20:00; Status DC Fentanyl Citrate (Fentanyl 2ml Vial) 50 mcg PRN Q5MIN PRN IVP MODERATE PAIN 4-6 Last administered on 09/25/21at 13:48; Start 09/25/21 at 06:00; Stop 09/25/21 at 20:00; Status DC Morphine Sulfate (Morphine Sulfate) 1 mg PRN Q10MIN PRN IVP SEVERE PAIN 7-10 Last administered on 09/25/21at 14:21; Start 09/25/21 at 06:00; Stop 09/25/21 at 20:00; Status DC Ringer's Solution 1,000 ml @ 30 mls/hr Q24H IV Last administered on 09/25/21at 12:54; Start 09/25/21 at 06:00; Stop 09/25/21 at 17:59; Status DC Hydromorphone HCl (Dilaudid) 0.5 mg PRN Q10MIN PRN IVP SEVERE PAIN 7-10, 2nd CHOICE Last administered on 09/25/21at 16:53; Start 09/25/21 at 06:00; Stop 09/25/21 at 20:00; Status DC Prochlorperazine Edisylate (Compazine) 5 mg PACU PRN PRN IVP NAUSEA, MRX1; Start 09/25/21 at 06:00; Stop 09/25/21 at 20:00; Status DC Cefazolin Sodium 1 gm/Sodium Chloride 1,000 ml @ 1,000 mls/hr 1X ONCE IRR Last administered on 09/25/21at 10:14; Start 09/25/21 at 06:00; Stop 09/25/21 at 06:59; Status DC Cefazolin Sodium/ Dextrose 50 ml @ 100 mls/hr 1X PREOP PRN IV PRIOR TO PROCEDURE Last administered on 09/25/21at 09:30; Start 09/25/21 at 06:00; Stop 09/25/21 at 13:39; Status DC Insulin Human Lispro (HumaLOG VIAL for OP,RR ONLY) 0-10 units PRN Q1HR PRN SQ PER PROTOCOL Last administered on 09/25/21at 17:01; Start 09/25/21 at 07:00; Stop 09/25/21 at 18:00; Status DC Bupivacaine HCl/ Epinephrine Bitart (Sensorcain-Epi 0.5% Kit) 30 ml STK-MED ONCE INJ Last administered on 09/25/21at 10:14; Start 09/25/21 at 10:14; Stop 09/25/21 at 10:30; Status DC Ketorolac Tromethamine (Toradol Im) 60 mg STK-MED ONCE INJ Last administered on 09/25/21 10:14; Start 09/25/21 at 10:14; Stop 09/25/21 at 10:30; Status DC Thrombin 20,000 unit STK-MED ONCE TP Last administered on 09/25/21at 10:14; Start 09/25/21 at 10:14; Stop 09/25/21 at 10:30; Status DC Gelatin (Gelfoam Size 100) 1 each STK-MED ONCE TP Last administered on 09/25/21 10:14; Start 09/25/21 at 10:14; Stop 09/25/21 at 10:30; Status DC Acetaminophen (Tylenol) 650 mg PRN Q4HRS PRN PO TEMP OVER 100.4F OR MILD PAIN Last administered on 10/02/21at 14:14; Start 09/25/21 at 12:30 Aspirin (Aspirin Chewable) 81 mg DAILY PO Last administered on 09/26/21 08:30; Start 09/26/21 at 09:00; Stop 09/28/21 at 17:19; Status DC Atorvastatin Calcium (Lipitor) 10 mg QHS PO Last administered on 10/03/21at 19:24; Start 09/25/21 at 21:00 Baclofen (Lioresal) 10 mg BID PO Last administered on 10/04/21at 09:08; Start 09/25/21 at 21:00 Diazepam (Valium) 5 mg TID PO Last administered on 10/03/21at 19:25; Start 09/25/21 at 14:00 Docusate Sodium (Colace) 100 mg PRN BID PRN PO HARD STOOLS Last administered on 10/01/21 20:28; Start 09/25/21 at 12:30 Fluticasone Propionate (Flonase) 2 spray DAILY NS Last administered on 10/03/21 08:03; Start 09/26/21 at 09:00 Hydroxyzine HCl (Atarax) 25 mg PRN Q6HRS PRN PO itching Last administered on 10/03/21at 23:04; Start 09/25/21 at 12:30 Lidocaine (Lidoderm) 1 patch QHS TP Last administered on 10/03/21at 23:31; Start 09/25/21 at 20:00 Linagliptin (Tradjenta) 5 mg DAILY PO Last administered on 10/04/21at 09:08; Start 09/25/21 at 13:00 Miconazole Nitrate (Monistat-Derm) 1 crispin TID TP Last administered on 10/03/21 08:03; Start 09/25/21 at 21:00 Midodrine (Proamatine) 2.5 mg PRN 1X PRN PO hypotension Last administered on 09/27/21 08:56; Start 09/25/21 at 12:30 Oxycodone HCl (Roxicodone) 10 mg PRN Q6HRS PRN PO MODERATE-SEVERE PAIN Last administered on 10/04/21at 09:08; Start 09/25/21 at 12:30 Diclofenac Sodium (Voltaren) 1 crispin PRN TID PRN TP PAIN CONTROL; Start 09/25/21 at 13:15; Stop 09/25/21 at 18:37; Status DC Insulin Glargine (Lantus Syringe) 4 unit QHS SQ Last administered on 10/03/21at 20:56; Start 09/25/21 at 21:00 Losartan Potassium (Cozaar) 25 mg DAILY08 PO Last administered on 10/01/21at 08:34; Start 09/26/21 at 08:00 Polyethylene Glycol (miraLAX PACKET) 17 gm DAILY PO Last administered on 10/03/21at 08:02; Start 09/25/21 at 14:00 Pregabalin (Lyrica) 100 mg BID PO Last administered on 10/04/21at 09:08; Start 09/25/21 at 21:00 Acetaminophen (Tylenol) 650 mg PRN Q6HRS PRN PO MILD PAIN / TEMP > 100.3'F; Start 09/25/21 at 12:30; Status Cancel Al Hydroxide/Mg Hydroxide (Mylanta Plus Xs) 30 ml PRN Q3HRS PRN PO HEARTBURN / GAS; Start 09/25/21 at 12:30 Calcium Carbonate/ Glycine (Tums) 500 mg PRN Q3HRS PRN PO INDIGESTION; Start 09/25/21 at 12:30 Diphenhydramine HCl (Benadryl) 25 mg PRN Q6HRS PRN PO ITCHING; Start 09/25/21 at 12:30 Naloxone HCl (Narcan) 0.1 mg PRN Q2MIN PRN IV SEE COMMENTS; Start 09/25/21 at 12:30 Sodium Chloride (Normal Saline Flush) 3 ml QSHIFT PRN IV AFTER MEDS AND BLOOD DRAWS; Start 09/25/21 at 12:30 Potassium Chloride/Sodium Chloride 1,000 ml @ 75 mls/hr [id number] IV Last administered on 09/26/21at 07:00; Start 09/25/21 at 12:30; Stop 09/26/21 at 17:33; Status DC Magnesium Hydroxide (Milk Of Magnesia) 2,400 mg PRN Q12HR PRN PO CONSTIPATION; Start 09/25/21 at 12:30 Cefazolin Sodium (Ancef) 1 gm Q8H IVP Last administered on 09/26/21at 04:14; Start 09/25/21 at 18:00; Stop 09/26/21 at 10:01; Status DC Fentanyl Citrate (Fentanyl 2ml Vial) 50 mcg PRN Q2HR PRN IVP MODERATE TO SEVERE PAIN Last administered on 10/04/21at 05:47; Start 09/25/21 at 12:30 Dextrose (Dextrose 50%-Water Syringe) 12.5 gm PRN Q15MIN PRN IV SEE COMMENTS; Start 09/25/21 at 12:30 Dextrose (Iv Dextrose 5%) 250 ml PRN Q15MIN PRN IV SEE COMMENTS; Start 09/25/21 at 12:30 Gelatin (Gelfoam Size 100) 1 each STK-MED ONCE .ROUTE ; Start 09/25/21 at 06:37; Stop 09/25/21 at 14:55; Status DC Bupivacaine HCl/ Epinephrine Bitart (Sensorcain-Epi 0.5% Kit) 30 ml STK-MED ONCE .ROUTE ; Start 09/25/21 at 06:37; Stop 09/25/21 at 14:55; Status DC Ketorolac Tromethamine (Toradol Im) 60 mg STK-MED ONCE .ROUTE ; Start 09/25/21 at 06:37; Stop 09/25/21 at 14:55; Status DC Thrombin 20,000 unit STK-MED ONCE TP ; Start 09/25/21 at 06:38; Stop 09/25/21 at 14:55; Status DC Propofol (Diprivan) 200 mg STK-MED ONCE IV ; Start 09/25/21 at 05:54; Stop 09/25/21 at 14:57; Status DC Lidocaine HCl (Lidocaine Pf 2% Vial) 5 ml STK-MED ONCE .ROUTE ; Start 09/25/21 at 05:54; Stop 09/25/21 at 14:57; Status DC Ondansetron HCl (Zofran) 4 mg STK-MED ONCE .ROUTE ; Start 09/25/21 at 05:54; Stop 09/25/21 at 14:57; Status DC Phenylephrine HCl (Ramone-Synephrine Inj) 10 mg STK-MED ONCE .ROUTE ; Start 09/25/21 at 05:54; Stop 09/25/21 at 14:57; Status DC Propofol 50 ml @ As Directed STK-MED ONCE IV ; Start 09/25/21 at 05:54; Stop 09/25/21 at 14:57; Status DC Dexamethasone Sodium Phosphate (Decadron) 4 mg STK-MED ONCE .ROUTE ; Start 09/25/21 at 05:54; Stop 09/25/21 at 14:57; Status DC Fentanyl Citrate (Fentanyl 2ml Vial) 100 mcg STK-MED ONCE .ROUTE ; Start 09/25/21 at 05:54; Stop 09/25/21 at 14:57; Status DC Succinylcholine Chloride (Anectine) 200 mg STK-MED ONCE .ROUTE ; Start 09/25/21 at 05:54; Stop 09/25/21 at 14:57; Status DC Remifentanil HCl (Ultiva) 1 mg STK-MED ONCE IV ; Start 09/25/21 at 05:54; Stop 09/25/21 at 14:57; Status DC Glycopyrrolate (Robinul) 1 mg STK-MED ONCE .ROUTE ; Start 09/25/21 at 07:11; Stop 09/25/21 at 15:01; Status DC Propofol 50 ml @ As Directed STK-MED ONCE IV ; Start 09/25/21 at 08:07; Stop 09/25/21 at 15:02; Status DC Ketamine HCl (Ketamine) 50 mg STK-MED ONCE .ROUTE ; Start 09/25/21 at 08:15; Stop 09/25/21 at 15:02; Status DC Hydromorphone HCl (Dilaudid) 2 mg STK-MED ONCE .ROUTE ; Start 09/25/21 at 10:44; Stop 09/25/21 at 15:03; Status DC Fentanyl Citrate (Fentanyl 2ml Vial) 100 mcg STK-MED ONCE .ROUTE ; Start 09/25/21 at 13:26; Stop 09/25/21 at 15:04; Status DC Morphine Sulfate (Morphine Sulfate) 2 mg STK-MED ONCE .ROUTE ; Start 09/25/21 at 14:04; Stop 09/25/21 at 15:05; Status DC Hydromorphone HCl (Dilaudid) 2 mg STK-MED ONCE .ROUTE ; Start 09/25/21 at 14:54; Stop 09/25/21 at 15:06; Status DC Menthol/Methyl Salicylate (Bengay Greaseless Cream) 1 crispin PRN Q30MIN PRN TP MUSCLE PAIN Last administered on 10/02/21at 21:03; Start 09/25/21 at 18:45 Mupirocin (Bactroban) 1 crispin BID NS Last administered on 10/04/21at 09:08; Start 09/26/21 at 09:00 Dexamethasone Sodium Phosphate (Decadron) 10 mg 1X ONCE IVP Last administered on 09/26/21at 07:31; Start 09/26/21 at 07:30; Stop 09/26/21 at 07:31; Status DC Cefazolin Sodium 1 gm/Sodium Chloride 1,000 ml @ 1,000 mls/hr 1X ONCE IRR Last administered on 09/26/21at 11:52; Start 09/26/21 at 10:30; Stop 09/26/21 at 11:29; Status DC Cefazolin Sodium (Ancef) 1 gm STK-MED ONCE IVP ; Start 09/26/21 at 10:05; Stop 09/26/21 at 10:06; Status DC Lidocaine HCl (Lidocaine Pf 2% Vial) 5 ml STK-MED ONCE .ROUTE ; Start 09/26/21 at 10:18; Stop 09/26/21 at 10:18; Status DC Ondansetron HCl (Zofran) 4 mg STK-MED ONCE .ROUTE ; Start 09/26/21 at 10:18; Stop 09/26/21 at 10:18; Status DC Propofol (Diprivan) 200 mg STK-MED ONCE IV ; Start 09/26/21 at 10:18; Stop 09/26/21 at 10:19; Status DC Dexamethasone Sodium Phosphate (Decadron) 4 mg STK-MED ONCE .ROUTE ; Start 09/26/21 at 10:18; Stop 09/26/21 at 10:19; Status DC Sevoflurane (Ultane) 30 ml STK-MED ONCE IH ; Start 09/26/21 at 10:18; Stop 09/26/21 at 10:19; Status DC Fentanyl Citrate (Fentanyl 2ml Vial) 100 mcg STK-MED ONCE .ROUTE ; Start 09/26/21 at 10:19; Stop 09/26/21 at 10:19; Status DC Rocuronium [place] (Zemuron) 50 mg STK-MED ONCE .ROUTE ; Start 09/26/21 at 10:19; Stop 09/26/21 at 10:19; Status DC Insulin Human Lispro (HumaLOG VIAL for OP,RR ONLY) 0-10 units PRN Q1HR PRN SQ PER PROTOCOL Last administered on 09/26/21at 15:11; Start 09/26/21 at 10:30; Stop 09/26/21 at 18:00; Status DC Sugammadex Sodium (Bridion) 200 mg 1X ONCE IVP Last administered on 09/26/21at 10:30; Start 09/26/21 at 10:30; Stop 09/26/21 at 10:31; Status DC Gelatin (Gelfoam Size 100) 1 each STK-MED ONCE .ROUTE Last administered on 09/26/21at 11:52; Start 09/26/21 at 10:30; Stop 09/26/21 at 10:30; Status DC Bupivacaine HCl/ Epinephrine Bitart (Sensorcain-Epi 0.5% Kit) 30 ml STK-MED ONCE .ROUTE ; Start 09/26/21 at 10:30; Stop 09/26/21 at 10:30; Status DC Ketorolac Tromethamine (Toradol Im) 60 mg STK-MED ONCE .ROUTE ; Start 09/26/21 at 10:30; Stop 09/26/21 at 10:30; Status DC Thrombin 20,000 unit STK-MED ONCE TP Last administered on 09/26/21at 11:52; Start 09/26/21 at 10:30; Stop 09/26/21 at 10:31; Status DC Cefazolin Sodium/ Dextrose 50 ml @ As Directed STK-MED ONCE IV ; Start 09/26/21 at 10:32; Stop 09/26/21 at 10:32; Status DC Vancomycin HCl 1 gm/Sodium Chloride 250 ml @ 250 mls/hr PREOP PRN PRN IV PRIOR TO PROCEDURE; Start 09/26/21 at 10:45; Stop 09/26/21 at 14:00; Status DC Cefazolin Sodium/ Dextrose 50 ml @ 100 mls/hr 1X ONCE IV Last administered on 09/26/21at 11:00; Start 09/26/21 at 11:00; Stop 09/26/21 at 11:29; Status DC Dexamethasone Sodium Phosphate (Decadron) 4 mg STK-MED ONCE .ROUTE ; Start 09/26/21 at 11:04; Stop 09/26/21 at 11:04; Status DC Glycopyrrolate (Robinul) 1 mg STK-MED ONCE .ROUTE ; Start 09/26/21 at 11:04; Stop 09/26/21 at 11:04; Status DC Hydromorphone HCl (Dilaudid) 2 mg STK-MED ONCE .ROUTE ; Start 09/26/21 at 11:56; Stop 09/26/21 at 11:56; Status DC Fentanyl Citrate (Fentanyl 2ml Vial) 25 mcg PRN Q5MIN PRN IVP MILD PAIN 1-3; Start 09/26/21 at 14:30; Stop 09/26/21 at 18:15; Status DC Fentanyl Citrate (Fentanyl 2ml Vial) 50 mcg PRN Q5MIN PRN IVP MODERATE PAIN 4- 6; Start 09/26/21 at 14:30; Stop 09/26/21 at 18:15; Status DC Morphine Sulfate (Morphine Sulfate) 1 mg PRN Q10MIN PRN IVP SEVERE PAIN 7-10; Start 09/26/21 at 14:30; Stop 09/26/21 at 18:15; Status DC Ringer's Solution 1,000 ml @ 30 mls/hr Q24H IV Last administered on 09/26/21at 15:18; Start 09/26/21 at 14:30; Stop 09/26/21 at 21:00; Status DC Hydromorphone HCl (Dilaudid) 0.5 mg PRN Q10MIN PRN IVP SEVERE PAIN 7-10, 2nd CHOICE; Start 09/26/21 at 14:30; Stop 09/26/21 at 18:15; Status DC Prochlorperazine Edisylate (Compazine) 5 mg PACU PRN PRN IVP NAUSEA, MRX1; Start 09/26/21 at 14:30; Stop 09/26/21 at 21:00; Status DC Fentanyl Citrate (Fentanyl 2ml Vial) 100 mcg STK-MED ONCE .ROUTE ; Start 09/26/21 at 14:23; Stop 09/26/21 at 14:25; Status DC Fentanyl Citrate (Fentanyl 2ml Vial) 25 mcg PRN Q5MIN PRN IVP MILD PAIN 1-3; Start 09/26/21 at 14:30; Stop 09/27/21 at 14:29; Status UNV Fentanyl Citrate (Fentanyl 2ml Vial) 50 mcg PRN Q5MIN PRN IVP MODERATE PAIN 4- 6; Start 09/26/21 at 14:30; Stop 09/27/21 at 14:29; Status UNV Morphine Sulfate (Morphine Sulfate) 1 mg PRN Q10MIN PRN IVP SEVERE PAIN 7-10; Start 09/26/21 at 14:30; Stop 09/27/21 at 14:29; Status UNV Ringer's Solution 1,000 ml @ 30 mls/hr Q24H IV ; Start 09/26/21 at 14:30; Stop 09/27/21 at 02:29; Status UNV Hydromorphone HCl (Dilaudid) 0.5 mg PRN Q10MIN PRN IVP SEVERE PAIN 7-10, 2nd CHOICE; Start 09/26/21 at 14:30; Stop 09/27/21 at 14:29; Status UNV Prochlorperazine Edisylate (Compazine) 5 mg PACU PRN PRN IVP NAUSEA, MRX1; Start 09/26/21 at 14:30; Stop 09/27/21 at 14:29; Status UNV Dexamethasone Sodium Phosphate (Decadron) 4 mg Q6HRS IVP Last administered on 09/28/21at 05:06; Start 09/26/21 at 18:00; Stop 09/28/21 at 06:00; Status DC Sodium Chloride 1,000 ml @ 100 mls/hr Q10H IV Last administered on 10/04/21at 11:39; Start 09/26/21 at 17:30 Cefazolin Sodium (Ancef) 1 gm Q8HRS IVP ; Start 09/27/21 at 06:00; Stop 09/27/21 at 05:47; Status DC Vancomycin HCl 1 gm/Sodium Chloride 250 ml @ 166.667 mls/hr 1X ONCE IV Last administered on 09/27/21at 06:27; Start 09/27/21 at 06:00; Stop 09/27/21 at 07:29; Status DC Gadoterate Meglumine (Clariscan) 19 ml 1X ONCE IVP Last administered on 09/29/21at 10:32; Start 09/29/21 at 08:15; Stop 09/29/21 at 08:17; Status DC Bisacodyl (Dulcolax Supp) 10 mg PRN DAILY PRN VT CONSTIPATION; Start 09/29/21 at 14:15 Lactulose (Lactulose) 20 gm PRN DAILY PRN PO CONSTIPATION Last administered on 10/01/21at 08:35; Start 09/29/21 at 14:30 Ascorbic Acid (Vitamin C) 500 mg DAILY PO Last administered on 10/04/21at 09:08; Start 10/02/21 at 10:00 Levofloxacin/ Dextrose 100 ml @ 100 mls/hr Q24H IV Last administered on 10/02/21at 12:15; Start 10/02/21 at 12:00; Stop 10/03/21 at 08:57; Status DC Levofloxacin/ Dextrose 50 ml @ 50 mls/hr Q24H IV Last administered on 10/04/21at 11:39; Start 10/03/21 at 12:00 Lactobacillus Rhamnosus (Culturelle) 1 cap BID PO Last administered on 10/04/21at 09:08; Start 10/03/21 at 21:00 Active Scripts Active Dok (Docusate Sodium) 100 Mg Capsule 100 Mg PO PRN BID PRN 30 Days Tylenol (Acetaminophen) 325 Mg Tablet 650 Mg PO PRN Q4HRS PRN 30 Days Valium (Diazepam) 5 Mg Tablet 5 Mg PO TID Atorvastatin Calcium 10 Mg Tablet 10 Mg PO QHS Reported Midodrine Hcl 2.5 Mg Tablet 2.5 Mg PO PRN 1X PRN Aspirin 81 Mg Tab.chew 81 Mg PO DAILY Baclofen 10 Mg Tablet 10 Mg PO BID Lyrica (Pregabalin) 100 Mg Capsule 100 Mg PO BID 30 Days Polyethylene Glycol 3350 2,500 Gm Powder 17 Gm PO DAILY 30 Days Oxycodone HCl 5 Mg Tablet 10 Mg PO PRN Q6HRS PRN Micatin (Miconazole Nitrate) 14 Gm Cream..g. 1 Crispin TP TID Tradjenta (Linagliptin) 5 Mg Tablet 5 Mg PO DAILY Lidocaine PATCH (Lidocaine) 1 Each Adh..patch 1 Each TP DAILY REMOVE AFTER 12 HOURS Levemir (Insulin Detemir) 100 Unit/1 Ml Vial 4 Unit SQ HS Hydroxyzine Hcl 25 Mg Tablet 25 Mg PO PRN Q6HRS PRN Fluticasone Propionate Nasal Monarch (Fluticasone Propionate) 16 Gm Monarch.susp 2 Monarch NS DAILY Diclofenac Sodium 100 Gm Gel..gram. 100 Gm TP PRN TID PRN Losartan Potassium 100 Mg Tablet 25 Tab PO DAILY08 Vitals/I & O Vital Sign - Last 24 Hours 10/03/21 10/03/21 10/03/21 10/03/21 13:49 16:00 17:20 18:00 Temp 98.7 98.7 Pulse 88 Resp 18 16 16 16 B/P (MAP) 131/62 (85) Pulse Ox 98 96 O2 Delivery Room Air Room Air Room Air 10/03/21 10/03/21 10/03/21 10/03/21 19:31 20:00 20:01 20:50 Temp 99.2 99.2 Pulse 85 Resp 16 B/P (MAP) 120/62 (81) Pulse Ox 96 96 96 O2 Delivery Room Air Room Air Room Air Room Air O2 Flow Rate 2.0 2.0 10/03/21 10/03/21 10/04/21 10/04/21 22:53 23:25 00:00 03:01 Temp 99.3 99.3 Pulse 85 Resp 16 16 18 16 B/P (MAP) 109/63 (78) Pulse Ox 96 93 94 95 O2 Delivery Room Air Room Air Room Air 10/04/21 10/04/21 10/04/21 10/04/21 03:33 04:00 05:47 06:20 Temp 99.6 99.6 Pulse 82 Resp 14 16 14 15 B/P (MAP) 116/60 (78) Pulse Ox 96 96 95 96 O2 Delivery Room Air Room Air Room Air Room Air 10/04/21 10/04/21 10/04/21 10/04/21 08:00 08:00 08:00 09:08 Temp 99.3 99.3 Pulse 73 73 Resp 18 B/P (MAP) 98/55 98/55 (69) Pulse Ox 98 O2 Delivery Room Air Room Air Room Air 10/04/21 10/04/21 09:44 11:49 Temp 98.7 98.7 Pulse 79 Resp 18 B/P (MAP) 116/59 (78) Pulse Ox 95 O2 Delivery Room Air Room Air Intake and Output 10/03/21 10/03/21 10/04/21 15:00 23:00 07:00 Intake Total 290 ml 2015 ml 1931 ml Output Total 1200 ml 800 ml 2200 ml Balance -910 ml 1215 ml -269 ml Justifications for Admission Other Justification uncontrolled diabetes TODD RIVERA [employer] Oct 04, 2021 13:32
[2021-10-04 16:00] VITALS: BP 145/82
[2021-10-04 20:00] VITALS: BP 111/48
[2021-10-04] MEDS: ATORVASTATIN CALCIUM 10 MG TABLET. PO SCH (20:10)
[2021-10-04] MEDS: INSULIN GLARGINE SYRINGE. SQ SCH (20:18)
[2021-10-04] MEDS: LIDOCAINE (700MG/PATCH) PATCH. TP SCH (22:00)
[2021-10-04] MEDS: hydrOXYzine 25 MG TABLET PO PRN (23:11)
[2021-10-05] VITALS: BP 116/64
[2021-10-05] MEDS: fentaNYL PF VIAL 100 MCG/2 ML VIAL IVP PRN ×5 (00:37→22:46)
[2021-10-05 04:00] VITALS: BP 113/38
[2021-10-05] MEDS: IV 1/2 NORMAL SALINE 1,000 ML IV SCH (06:41)
[2021-10-05] MEDS: POLYETHYLENE GLYCOL 3350 17 GM PACKET. PO SCH (07:22)
[2021-10-05] MEDS: MICONAZOLE NITRATE 2% TOPICAL CREAM 30GM TUBE. TP SCH (07:23)
[2021-10-05] MEDS: MUPIROCIN 2 % OINTMENT 22GM TUBE. NS SCH ×2 (07:23→20:41)
[2021-10-05] MEDS: diazePAM 5 MG TABLET PO SCH ×3 (07:38→20:39)
[2021-10-05] MEDS: BACLOFEN 10 MG TABLET. PO SCH ×2 (07:39→20:39)
[2021-10-05] MEDS: LACTOBACILLUS RHAMNOSUS GG 1 CAPSULE. PO SCH ×2 (07:39→20:39)
[2021-10-05] MEDS: ASCORBIC ACID 500 MG TABLET PO SCH (07:39)
[2021-10-05] MEDS: PREGABALIN 50 MG CAPSULE PO SCH ×2 (07:39→20:39)
[2021-10-05] MEDS: LINAGLIPTIN 5 MG TABLET PO SCH (07:39)
[2021-10-05 08:00] VITALS: BP 123/54
[2021-10-05] MEDS: LOSARTAN POTASSIUM 25 MG TABLET. PO SCH (08:00)
[2021-10-05] MEDS: FLUTICASONE 50MCG/NASAL SPRAY 16GM BOTTLE. NS SCH (08:26)
[2021-10-05] MEDS: oxyCODONE IR 5 MG TABLET PO PRN ×3 (08:47→22:47)
--- NOTE | 2021-10-05 11:27 | PDOC ---
[facility] PROGRESS NOTE Date of Service DOS: DATE: 10/05/21 TIME: 11:26 Chief Complaint Chief Complaint Postoperative posterior cervical laminectomy. Fall in July with cervical fracture (at that time he had a anterior cervical laminectomy) Status post cervical hematoma had to return to the OR History of the following; Cervical laminectomy as per above, diabetes, hypertension, hyperlipidemia, arthritis, GERD, left knee arthroplasty and TIA and also IVC filter and prior ACDF at C4 through C5 and C5 through C6 in 07/2021. History of Present Illness History of Present Illness 10/05/2021 Patient seen and examined in the ICU His nurses are starting to get ready to clean him up His sister is present Discussed with RN Discussed with case management we are still awaiting rehab [facility] transfer if it can be arranged 10/04/2021 Patient seen and examined again in the ICU He remains very weak cannot move his legs was able to move his hands His sister is present I called case management they are checking into possibly if he could go to rehab [facility] Chart reviewed 10/03/2021 Patient seen and examined in the ICU Chart reviewed Discussed with RN Called case management We are hoping to get the patient transferred to [facility] rehab if possible (they are evaluating his admission criteria to rehab) 10/02/2021 Patient seen and examined in the ICU He is still unable to move his legs He is able to move his hands and arms slightly but is very weak at bedside Chart reviewed Discussed with RN I called case management to see if maybe he could go to [facility] rehab sometime soon 10/01 Patient evaluated examined at bedside. Continues to improve. Continue rehab. Plan discussed with bedside RN. 09/30 Patient evaluated examined at bedside. Clinically about the same from yesterday. Continue rehab modalities. Labs stable. Plan discussed with bedside RN. 09/29 Patient evaluated at bedside. Underwent MRI this morning. Symptoms very similar to yesterday but he feels like he is regaining some function. Pain controlled. PT OT. Hemoglovin stable. 09/28 Evaluate examined at bedside. Resting in bed had no complaints to me. Said pain is quite improved. Did okay with transfusion yesterday. Continue current treatments. PT/OT. Discussed with bedside RNStar Diane 09/27 Patient evaluated examined at bedside. Was resting in bed easily awoken able to answer some questions. Some movement in his upper extremities but very limited in lower. Transfuse 1 unit today. Plan discussed with RN. Vitals/I&O Vitals/I&O: Vital Signs Date Time Temp Pulse Resp B/P (MAP) Pulse Ox O2 Delivery O2 Flow Rate FiO2 10/05/21 11:13 16 95 Room Air 10/05/21 08:00 98.4 76 123/54 (77) 98.4 10/04/21 17:05 2.0 I & O 10/04/21 10/04/21 10/05/21 15:00 23:00 07:00 Intake Total 240 ml Output Total 1400 ml 1550 ml 700 ml Balance -1400 ml -1310 ml -700 ml Physical Exam General: Alert, Oriented X3, Cooperative Heart: Regular rate Lungs: Clear Abdomen: Normal bowel sounds, Soft, No tenderness Extremities: No edema, Normal pulses Skin: Other (dressing C,D,I, Flat) Labs Labs: Laboratory Tests Test 10/04/21 12:35 Glucose (Fingerstick) 181 mg/dL (70-99) Assessment and Plan Assessmemt and Plan Assessmemt and Plan Postoperative posterior cervical laminectomy. Fall in July with cervical fracture (at that time he had a anterior cervical laminectomy) Status post cervical hematoma had to return to the OR New UTI History of the following; Cervical laminectomy as per above, diabetes, hypertension, hyperlipidemia, arthritis, GERD, left knee arthroplasty and TIA and also IVC filter and prior ACDF at C4 through C5 and C5 through C6 in 07/2021. Plan ICU monitoring PT OT Wound detention meds DVT prophylaxis Added Levaquin for UTI As needed Valium Continue Lyrica Full code Rehab hospital [facility] evaluation in progress Hope to transfer to rehab hospital in [place] soon Comment Review of Relevant I have reviewed the following items michelle (where applicable) has been applied. Medications: Current Medications Medications (Trade) Dose Ordered Sig/[place] Route PRN Reason Start Time Stop Time Status Last Admin Dose Admin Lidocaine (Lidoderm) 1 patch QHS TP 10/04/21 22:00 10/04/21 22:00 Justifications for Admission Other Justification uncontrolled diabetes MISSY BATES III DO Oct 05, 2021 11:27
[2021-10-05 12:00] VITALS: BP 131/72
[2021-10-05 16:00] VITALS: BP 137/75
--- NOTE | 2021-10-05 16:25 | PDOC ---
PROGRESS NOTES Date of Service DATE: 10/05/21 TIME: 16:22 Subjective Subjective POD #9 S/P Evacuation of epidural hematoma, s/p cervical laminectomy and fusion 09/25/21 pain well controlled Objective Objective Vital Signs Date Time Temp Pulse Resp B/P (MAP) Pulse Ox O2 Delivery O2 Flow Rate FiO2 10/05/21 14:26 18 95 Room Air 10/05/21 12:00 98.9 72 131/72 (91) 98.9 10/04/21 17:05 2.0 Intake and Output 10/05/21 07:00 Intake Total 240 ml Output Total 3650 ml Balance -3410 ml Intake Oral 240 ml Output Urine Total 3650 ml # Bowel Movements 3 Physical Exam General: Alert, Oriented X3, Cooperative, No acute distress Neuro: Normal speech, Other (sensation intact in upper and lower extremities, moves upper extremities with 3/5 strength, hand grasps slightly stronger- finger extension improved, moves right great toe) Skin: Other (dressing C,D,I) Plan Plan of Care continue current care SCDs working on placement to rehab [facility] out in a week Comment Review of Relevant I have reviewed the following items michelle (where applicable) has been applied. Labs Laboratory Tests Test 10/03/21 20:53 10/04/21 08:37 10/04/21 12:35 Glucose (Fingerstick) 166 mg/dL (70-99) 143 mg/dL (70-99) 181 mg/dL (70-99) Microbiology 10/01/21 Urine Culture - Final, Complete Escherichia Coli Escherichia Coli#2 Medications Current Medications Fentanyl Citrate (Fentanyl 2ml Vial) 25 mcg PRN Q5MIN PRN IVP MILD PAIN 1-3; Start 09/25/21 at 06:00; Stop 09/25/21 at 20:00; Status DC Fentanyl Citrate (Fentanyl 2ml Vial) 50 mcg PRN Q5MIN PRN IVP MODERATE PAIN 4-6 Last administered on 09/25/21at 13:48; Start 09/25/21 at 06:00; Stop 09/25/21 at 20:00; Status DC Morphine Sulfate (Morphine Sulfate) 1 mg PRN Q10MIN PRN IVP SEVERE PAIN 7-10 Last administered on 09/25/21at 14:21; Start 09/25/21 at 06:00; Stop 09/25/21 at 20:00; Status DC Ringer's Solution 1,000 ml @ 30 mls/hr Q24H IV Last administered on 09/25/21at 12:54; Start 09/25/21 at 06:00; Stop 09/25/21 at 17:59; Status DC Hydromorphone HCl (Dilaudid) 0.5 mg PRN Q10MIN PRN IVP SEVERE PAIN 7-10, 2nd CHOICE Last administered on 09/25/21at 16:53; Start 09/25/21 at 06:00; Stop 09/25/21 at 20:00; Status DC Prochlorperazine Edisylate (Compazine) 5 mg PACU PRN PRN IVP NAUSEA, MRX1; Start 09/25/21 at 06:00; Stop 09/25/21 at 20:00; Status DC Cefazolin Sodium 1 gm/Sodium Chloride 1,000 ml @ 1,000 mls/hr 1X ONCE IRR Last administered on 09/25/21at 10:14; Start 09/25/21 at 06:00; Stop 09/25/21 at 06:59; Status DC Cefazolin Sodium/ Dextrose 50 ml @ 100 mls/hr 1X PREOP PRN IV PRIOR TO PROCEDURE Last administered on 09/25/21at 09:30; Start 09/25/21 at 06:00; Stop 09/25/21 at 13:39; Status DC Insulin Human Lispro (HumaLOG VIAL for OP,RR ONLY) 0-10 units PRN Q1HR PRN SQ PER PROTOCOL Last administered on 09/25/21at 17:01; Start 09/25/21 at 07:00; Stop 09/25/21 at 18:00; Status DC Bupivacaine HCl/ Epinephrine Bitart (Sensorcain-Epi 0.5% Kit) 30 ml STK-MED ONCE INJ Last administered on 09/25/21at 10:14; Start 09/25/21 at 10:14; Stop 09/25/21 at 10:30; Status DC Ketorolac Tromethamine (Toradol Im) 60 mg STK-MED ONCE INJ Last administered on 09/25/21at 10:14; Start 09/25/21 at 10:14; Stop 09/25/21 at 10:30; Status DC Thrombin 20,000 unit STK-MED ONCE TP Last administered on 09/25/21 10:14; Start 09/25/21 at 10:14; Stop 09/25/21 at 10:30; Status DC Gelatin (Gelfoam Size 100) 1 each STK-MED ONCE TP Last administered on 09/25/21 10:14; Start 09/25/21 at 10:14; Stop 09/25/21 at 10:30; Status DC Acetaminophen (Tylenol) 650 mg PRN Q4HRS PRN PO TEMP OVER 100.4F OR MILD PAIN Last administered on 10/02/21 14:14; Start 09/25/21 at 12:30 Aspirin (Aspirin Chewable) 81 mg DAILY PO Last administered on 09/26/21 08:30; Start 09/26/21 at 09:00; Stop 09/28/21 at 17:19; Status DC Atorvastatin Calcium (Lipitor) 10 mg QHS PO Last administered on 10/04/21 20:10; Start 09/25/21 at 21:00 Baclofen (Lioresal) 10 mg BID PO Last administered on 10/05/21 07:39; Start 09/25/21 at 21:00 Diazepam (Valium) 5 mg TID PO Last administered on 10/05/21 07:38; Start 09/25/21 at 14:00 Docusate Sodium (Colace) 100 mg PRN BID PRN PO HARD STOOLS Last administered on 10/01/21 20:28; Start 09/25/21 at 12:30 Fluticasone Propionate (Flonase) 2 spray DAILY NS Last administered on 10/03/21 08:03; Start 09/26/21 at 09:00 Hydroxyzine HCl (Atarax) 25 mg PRN Q6HRS PRN PO itching Last administered on 10/04/21 23:11; Start 09/25/21 at 12:30 Lidocaine (Lidoderm) 1 patch QHS TP Last administered on 10/03/21 23:31; Start 09/25/21 at 20:00; Stop 10/05/21 at 01:01; Status DC Linagliptin (Tradjenta) 5 mg DAILY PO Last administered on 10/05/21 07:39; S tart 09/25/21 at 13:00 Miconazole Nitrate (Monistat-Derm) 1 crispin TID TP Last administered on 10/04/21at 20:08; Start 09/25/21 at 21:00; Stop 10/05/21 at 13:23; Status DC Midodrine (Proamatine) 2.5 mg PRN 1X PRN PO hypotension Last administered on 09/27/21at 08:56; Start 09/25/21 at 12:30 Oxycodone HCl (Roxicodone) 10 mg PRN Q6HRS PRN PO MODERATE-SEVERE PAIN Last administered on 10/05/21at 13:56; Start 09/25/21 at 12:30 Diclofenac Sodium (Voltaren) 1 crispin PRN TID PRN TP PAIN CONTROL; Start 09/25/21 at 13:15; Stop 09/25/21 at 18:37; Status DC Insulin Glargine (Lantus Syringe) 4 unit QHS SQ Last administered on 10/04/21at 20:18; Start 09/25/21 at 21:00 Losartan Potassium (Cozaar) 25 mg DAILY08 PO Last administered on 10/01/21at 08:34; Start 09/26/21 at 08:00 Polyethylene Glycol (miraLAX PACKET) 17 gm DAILY PO Last administered on 10/03/21at 08:02; Start 09/25/21 at 14:00 Pregabalin (Lyrica) 100 mg BID PO Last administered on 10/05/21at 07:39; Start 09/25/21 at 21:00 Acetaminophen (Tylenol) 650 mg PRN Q6HRS PRN PO MILD PAIN / TEMP > 100.3'F; Start 09/25/21 at 12:30; Status Cancel Al Hydroxide/Mg Hydroxide (Mylanta Plus Xs) 30 ml PRN Q3HRS PRN PO HEARTBURN / GAS; Start 09/25/21 at 12:30 Calcium Carbonate/ Glycine (Tums) 500 mg PRN Q3HRS PRN PO INDIGESTION; Start 09/25/21 at 12:30 Diphenhydramine HCl (Benadryl) 25 mg PRN Q6HRS PRN PO ITCHING; Start 09/25/21 at 12:30 Naloxone HCl (Narcan) 0.1 mg PRN Q2MIN PRN IV SEE COMMENTS; Start 09/25/21 at 12:30 Sodium Chloride (Normal Saline Flush) 3 ml QSHIFT PRN IV AFTER MEDS AND BLOOD DRAWS; Start 09/25/21 at 12:30 Potassium Chloride/Sodium Chloride 1,000 ml @ 75 mls/hr [id number] IV Last administered on 09/26/21at 07:00; Start 09/25/21 at 12:30; Stop 09/26/21 at 17:33; Status DC Magnesium Hydroxide (Milk Of Magnesia) 2,400 mg PRN Q12HR PRN PO CONSTIPATION; Start 09/25/21 at 12:30 Cefazolin Sodium (Ancef) 1 gm Q8H IVP Last administered on 09/26/21at 04:14; Start 09/25/21 at 18:00; Stop 09/26/21 at 10:01; Status DC Fentanyl Citrate (Fentanyl 2ml Vial) 50 mcg PRN Q2HR PRN IVP MODERATE TO SEVERE PAIN Last administered on 10/05/21at 11:13; Start 09/25/21 at 12:30 Dextrose (Dextrose 50%-Water Syringe) 12.5 gm PRN Q15MIN PRN IV SEE COMMENTS; Start 09/25/21 at 12:30 Dextrose (Iv Dextrose 5%) 250 ml PRN Q15MIN PRN IV SEE COMMENTS; Start 09/25/21 at 12:30 Gelatin (Gelfoam Size 100) 1 each STK-MED ONCE .ROUTE ; Start 09/25/21 at 06:37; Stop 09/25/21 at 14:55; Status DC Bupivacaine HCl/ Epinephrine Bitart (Sensorcain-Epi 0.5% Kit) 30 ml STK-MED ONCE .ROUTE ; Start 09/25/21 at 06:37; Stop 09/25/21 at 14:55; Status DC Ketorolac Tromethamine (Toradol Im) 60 mg STK-MED ONCE .ROUTE ; Start 09/25/21 at 06:37; Stop 09/25/21 at 14:55; Status DC Thrombin 20,000 unit STK-MED ONCE TP ; Start 09/25/21 at 06:38; Stop 09/25/21 at 14:55; Status DC Propofol (Diprivan) 200 mg STK-MED ONCE IV ; Start 09/25/21 at 05:54; Stop 09/25/21 at 14:57; Status DC Lidocaine HCl (Lidocaine Pf 2% Vial) 5 ml STK-MED ONCE .ROUTE ; Start 09/25/21 at 05:54; Stop 09/25/21 at 14:57; Status DC Ondansetron HCl (Zofran) 4 mg STK-MED ONCE .ROUTE ; Start 09/25/21 at 05:54; Stop 09/25/21 at 14:57; Status DC Phenylephrine HCl (Ramone-Synephrine Inj) 10 mg STK-MED ONCE .ROUTE ; Start 09/25/21 at 05:54; Stop 09/25/21 at 14:57; Status DC Propofol 50 ml @ As Directed STK-MED ONCE IV ; Start 09/25/21 at 05:54; Stop 09/25/21 at 14:57; Status DC Dexamethasone Sodium Phosphate (Decadron) 4 mg STK-MED ONCE .ROUTE ; Start 09/25/21 at 05:54; Stop 09/25/21 at 14:57; Status DC Fentanyl Citrate (Fentanyl 2ml Vial) 100 mcg STK-MED ONCE .ROUTE ; Start 09/25/21 at 05:54; Stop 09/25/21 at 14:57; Status DC Succinylcholine Chloride (Anectine) 200 mg STK-MED ONCE .ROUTE ; Start 09/25/21 at 05:54; Stop 09/25/21 at 14:57; Status DC Remifentanil HCl (Ultiva) 1 mg STK-MED ONCE IV ; Start 09/25/21 at 05:54; Stop 09/25/21 at 14:57; Status DC Glycopyrrolate (Robinul) 1 mg STK-MED ONCE .ROUTE ; Start 09/25/21 at 07:11; Stop 09/25/21 at 15:01; Status DC Propofol 50 ml @ As Directed STK-MED ONCE IV ; Start 09/25/21 at 08:07; Stop 09/25/21 at 15:02; Status DC Ketamine HCl (Ketamine) 50 mg STK-MED ONCE .ROUTE ; Start 09/25/21 at 08:15; Stop 09/25/21 at 15:02; Status DC Hydromorphone HCl (Dilaudid) 2 mg STK-MED ONCE .ROUTE ; Start 09/25/21 at 10:44; Stop 09/25/21 at 15:03; Status DC Fentanyl Citrate (Fentanyl 2ml Vial) 100 mcg STK-MED ONCE .ROUTE ; Start 09/25/21 at 13:26; Stop 09/25/21 at 15:04; Status DC Morphine Sulfate (Morphine Sulfate) 2 mg STK-MED ONCE .ROUTE ; Start 09/25/21 at 14:04; Stop 09/25/21 at 15:05; Status DC Hydromorphone HCl (Dilaudid) 2 mg STK-MED ONCE .ROUTE ; Start 09/25/21 at 14:54; Stop 09/25/21 at 15:06; Status DC Menthol/Methyl Salicylate (Bengay Greaseless Cream) 1 crispin PRN Q30MIN PRN TP MUSCLE PAIN Last administered on 10/02/21at 21:03; Start 09/25/21 at 18:45 Mupirocin (Bactroban) 1 crispin BID NS Last administered on 10/04/21at 20:09; Start 09/26/21 at 09:00 Dexamethasone Sodium Phosphate (Decadron) 10 mg 1X ONCE IVP Last administered on 09/26/21at 07:31; Start 09/26/21 at 07:30; Stop 09/26/21 at 07:31; Status DC Cefazolin Sodium 1 gm/Sodium Chloride 1,000 ml @ 1,000 mls/hr 1X ONCE IRR Last administered on 09/26/21at 11:52; Start 09/26/21 at 10:30; Stop 09/26/21 at 11:29; Status DC Cefazolin Sodium (Ancef) 1 gm STK-MED ONCE IVP ; Start 09/26/21 at 10:05; Stop 09/26/21 at 10:06; Status DC Lidocaine HCl (Lidocaine Pf 2% Vial) 5 ml STK-MED ONCE .ROUTE ; Start 09/26/21 at 10:18; Stop 09/26/21 at 10:18; Status DC Ondansetron HCl (Zofran) 4 mg STK-MED ONCE .ROUTE ; Start 09/26/21 at 10:18; Stop 09/26/21 at 10:18; Status DC Propofol (Diprivan) 200 mg STK-MED ONCE IV ; Start 09/26/21 at 10:18; Stop 09/26/21 at 10:19; Status DC Dexamethasone Sodium Phosphate (Decadron) 4 mg STK-MED ONCE .ROUTE ; Start 09/26/21 at 10:18; Stop 09/26/21 at 10:19; Status DC Sevoflurane (Ultane) 30 ml STK-MED ONCE IH ; Start 09/26/21 at 10:18; Stop 09/26/21 at 10:19; Status DC Fentanyl Citrate (Fentanyl 2ml Vial) 100 mcg STK-MED ONCE .ROUTE ; Start 09/26/21 at 10:19; Stop 09/26/21 at 10:19; Status DC Rocuronium [place] (Zemuron) 50 mg STK-MED ONCE .ROUTE ; Start 09/26/21 at 10:19; Stop 09/26/21 at 10:19; Status DC Insulin Human Lispro (HumaLOG VIAL for OP,RR ONLY) 0-10 units PRN Q1HR PRN SQ PER PROTOCOL Last administered on 09/26/21at 15:11; Start 09/26/21 at 10:30; Stop 09/26/21 at 18:00; Status DC Sugammadex Sodium (Bridion) 200 mg 1X ONCE IVP Last administered on 09/26/21at 10:30; Start 09/26/21 at 10:30; Stop 09/26/21 at 10:31; Status DC Gelatin (Gelfoam Size 100) 1 each STK-MED ONCE .ROUTE Last administered on 09/26/21at 11:52; Start 09/26/21 at 10:30; Stop 09/26/21 at 10:30; Status DC Bupivacaine HCl/ Epinephrine Bitart (Sensorcain-Epi 0.5% Kit) 30 ml STK-MED ONCE .ROUTE ; Start 09/26/21 at 10:30; Stop 09/26/21 at 10:30; Status DC Ketorolac Tromethamine (Toradol Im) 60 mg STK-MED ONCE .ROUTE ; Start 09/26/21 at 10:30; Stop 09/26/21 at 10:30; Status DC Thrombin 20,000 unit STK-MED ONCE TP Last administered on 09/26/21at 11:52; Start 09/26/21 at 10:30; Stop 09/26/21 at 10:31; Status DC Cefazolin Sodium/ Dextrose 50 ml @ As Directed STK-MED ONCE IV ; Start 09/26/21 at 10:32; Stop 09/26/21 at 10:32; Status DC Vancomycin HCl 1 gm/Sodium Chloride 250 ml @ 250 mls/hr PREOP PRN PRN IV PRIOR TO PROCEDURE; Start 09/26/21 at 10:45; Stop 09/26/21 at 14:00; Status DC Cefazolin Sodium/ Dextrose 50 ml @ 100 mls/hr 1X ONCE IV Last administered on 09/26/21at 11:00; Start 09/26/21 at 11:00; Stop 09/26/21 at 11:29; Status DC Dexamethasone Sodium Phosphate (Decadron) 4 mg STK-MED ONCE .ROUTE ; Start 09/26/21 at 11:04; Stop 09/26/21 at 11:04; Status DC Glycopyrrolate (Robinul) 1 mg STK-MED ONCE .ROUTE ; Start 09/26/21 at 11:04; Stop 09/26/21 at 11:04; Status DC Hydromorphone HCl (Dilaudid) 2 mg STK-MED ONCE .ROUTE ; Start 09/26/21 at 11:56; Stop 09/26/21 at 11:56; Status DC Fentanyl Citrate (Fentanyl 2ml Vial) 25 mcg PRN Q5MIN PRN IVP MILD PAIN 1-3; Start 09/26/21 at 14:30; Stop 09/26/21 at 18:15; Status DC Fentanyl Citrate (Fentanyl 2ml Vial) 50 mcg PRN Q5MIN PRN IVP MODERATE PAIN 4- 6; Start 09/26/21 at 14:30; Stop 09/26/21 at 18:15; Status DC Morphine Sulfate (Morphine Sulfate) 1 mg PRN Q10MIN PRN IVP SEVERE PAIN 7-10; Start 09/26/21 at 14:30; Stop 09/26/21 at 18:15; Status DC Ringer's Solution 1,000 ml @ 30 mls/hr Q24H IV Last administered on 09/26/21at 15:18; Start 09/26/21 at 14:30; Stop 09/26/21 at 21:00; Status DC Hydromorphone HCl (Dilaudid) 0.5 mg PRN Q10MIN PRN IVP SEVERE PAIN 7-10, 2nd CHOICE; Start 09/26/21 at 14:30; Stop 09/26/21 at 18:15; Status DC Prochlorperazine Edisylate (Compazine) 5 mg PACU PRN PRN IVP NAUSEA, MRX1; Start 09/26/21 at 14:30; Stop 09/26/21 at 21:00; Status DC Fentanyl Citrate (Fentanyl 2ml Vial) 100 mcg STK-MED ONCE .ROUTE ; Start 09/26/21 at 14:23; Stop 09/26/21 at 14:25; Status DC Fentanyl Citrate (Fentanyl 2ml Vial) 25 mcg PRN Q5MIN PRN IVP MILD PAIN 1-3; Start 09/26/21 at 14:30; Stop 09/27/21 at 14:29; Status UNV Fentanyl Citrate (Fentanyl 2ml Vial) 50 mcg PRN Q5MIN PRN IVP MODERATE PAIN 4- 6; Start 09/26/21 at 14:30; Stop 09/27/21 at 14:29; Status UNV Morphine Sulfate (Morphine Sulfate) 1 mg PRN Q10MIN PRN IVP SEVERE PAIN 7-10; Start 09/26/21 at 14:30; Stop 09/27/21 at 14:29; Status UNV Ringer's Solution 1,000 ml @ 30 mls/hr Q24H IV ; Start 09/26/21 at 14:30; Stop 09/27/21 at 02:29; Status UNV Hydromorphone HCl (Dilaudid) 0.5 mg PRN Q10MIN PRN IVP SEVERE PAIN 7-10, 2nd CHOICE; Start 09/26/21 at 14:30; Stop 09/27/21 at 14:29; Status UNV Prochlorperazine Edisylate (Compazine) 5 mg PACU PRN PRN IVP NAUSEA, MRX1; Start 09/26/21 at 14:30; Stop 09/27/21 at 14:29; Status UNV Dexamethasone Sodium Phosphate (Decadron) 4 mg Q6HRS IVP Last administered on 09/28/21at 05:06; Start 09/26/21 at 18:00; Stop 09/28/21 at 06:00; Status DC Sodium Chloride 1,000 ml @ 100 mls/hr Q10H IV Last administered on 10/05/21at 06:41; Start 09/26/21 at 17:30; Stop 10/05/21 at 13:48; Status DC Cefazolin Sodium (Ancef) 1 gm Q8HRS IVP ; Start 09/27/21 at 06:00; Stop 09/27/21 at 05:47; Status DC Vancomycin HCl 1 gm/Sodium Chloride 250 ml @ 166.667 mls/hr 1X ONCE IV Last administered on 09/27/21at 06:27; Start 09/27/21 at 06:00; Stop 09/27/21 at 07:29; Status DC Gadoterate Meglumine (Clariscan) 19 ml 1X ONCE IVP Last administered on 09/29/21at 10:32; Start 09/29/21 at 08:15; Stop 09/29/21 at 08:17; Status DC Bisacodyl (Dulcolax Supp) 10 mg PRN DAILY PRN [place] CONSTIPATION; Start 09/29/21 at 14:15 Lactulose (Lactulose) 20 gm PRN DAILY PRN PO CONSTIPATION Last administered on 10/01/21at 08:35; Start 09/29/21 at 14:30 Ascorbic Acid (Vitamin C) 500 mg DAILY PO Last administered on 10/05/21at 07:39; Start 10/02/21 at 10:00 Levofloxacin/ Dextrose 100 ml @ 100 mls/hr Q24H IV Last administered on 10/02/21at 12:15; Start 10/02/21 at 12:00; Stop 10/03/21 at 08:57; Status DC Levofloxacin/ Dextrose 50 ml @ 50 mls/hr Q24H IV Last administered on 10/05/21at 11:13; Start 10/03/21 at 12:00 Lactobacillus Rhamnosus (Culturelle) 1 cap BID PO Last administered on 10/05/21at 07:39; Start 10/03/21 at 21:00 Lidocaine (Lidoderm) 1 patch QHS TP Last administered on 10/04/21at 22:00; Start 10/04/21 at 22:00 Active Scripts Active Dok (Docusate Sodium) 100 Mg Capsule 100 Mg PO PRN BID PRN 30 Days Tylenol (Acetaminophen) 325 Mg Tablet 650 Mg PO PRN Q4HRS PRN 30 Days Valium (Diazepam) 5 Mg Tablet 5 Mg PO TID Atorvastatin Calcium 10 Mg Tablet 10 Mg PO QHS Reported Midodrine Hcl 2.5 Mg Tablet 2.5 Mg PO PRN 1X PRN Aspirin 81 Mg Tab.chew 81 Mg PO DAILY Baclofen 10 Mg Tablet 10 Mg PO BID Lyrica (Pregabalin) 100 Mg Capsule 100 Mg PO BID 30 Days Polyethylene Glycol 3350 2,500 Gm Powder 17 Gm PO DAILY 30 Days Oxycodone HCl 5 Mg Tablet 10 Mg PO PRN Q6HRS PRN Micatin (Miconazole Nitrate) 14 Gm Cream..g. 1 Crispin TP TID Tradjenta (Linagliptin) 5 Mg Tablet 5 Mg PO DAILY Lidocaine PATCH (Lidocaine) 1 Each Adh..patch 1 Each TP DAILY REMOVE AFTER 12 HOURS Levemir (Insulin Detemir) 100 Unit/1 Ml Vial 4 Unit SQ HS Hydroxyzine Hcl 25 Mg Tablet 25 Mg PO PRN Q6HRS PRN Fluticasone Propionate Nasal [place] (Fluticasone Propionate) 16 Gm [place].susp 2 [place] NS DAILY Diclofenac Sodium 100 Gm Gel..gram. 100 Gm TP PRN TID PRN Losartan Potassium 100 Mg Tablet 25 Tab PO DAILY08 Vitals/I & O Vital Sign - Last 24 Hours 10/04/21 10/04/21 10/04/21 10/04/21 16:35 17:05 20:00 20:00 Temp 98.5 98.5 Pulse 75 Resp 12 B/P (MAP) 111/48 (69) Pulse Ox 97 97 96 O2 Delivery Room Air Room Air Room Air Room Air O2 Flow Rate 2.0 2.0 10/04/21 10/05/21 10/05/21 10/05/21 20:10 00:00 00:37 01:07 Temp 98.4 98.4 Pulse 81 Resp 15 11 15 12 B/P (MAP) 116/64 (81) Pulse Ox 94 96 O2 Delivery Room Air Room Air Room Air 10/05/21 10/05/21 10/05/21 10/05/21 04:00 04:29 04:59 08:00 Temp 98.7 98.7 Pulse 80 Resp 19 12 B/P (MAP) 113/38 (63) Pulse Ox 97 O2 Delivery Room Air Room Air Room Air 10/05/21 10/05/21 10/05/21 10/05/21 08:00 08:47 09:17 11:13 Temp 98.4 98.4 Pulse 76 Resp 16 16 20 16 B/P (MAP) 123/54 (77) Pulse Ox 95 95 96 95 O2 Delivery Room Air Room Air Room Air Room Air 10/05/21 10/05/21 10/05/21 10/05/21 11:43 12:00 13:56 14:26 Temp 98.9 98.9 Pulse 72 Resp 18 18 16 18 B/P (MAP) 131/72 (91) Pulse Ox 98 98 96 95 O2 Delivery Room Air Room Air Room Air Room Air Intake and Output 10/04/21 10/04/21 10/05/21 15:00 23:00 07:00 Intake Total 240 ml Output Total 1400 ml 1550 ml 700 ml Balance -1400 ml -1310 ml -700 ml Justifications for Admission Other Justification uncontrolled diabetes TODD RIVERA [employer] Oct 05, 2021 16:25
[2021-10-05 20:00] VITALS: BP 140/71
[2021-10-05] MEDS: ATORVASTATIN CALCIUM 10 MG TABLET. PO SCH (20:39)
[2021-10-05] MEDS: LIDOCAINE (700MG/PATCH) PATCH. TP SCH (20:39)
[2021-10-05] MEDS: INSULIN GLARGINE SYRINGE. SQ SCH (20:48)
[2021-10-05] MEDS: hydrOXYzine 25 MG TABLET PO PRN (22:47)
[2021-10-06] VITALS: BP 106/57
[2021-10-06] MEDS: fentaNYL PF VIAL 100 MCG/2 ML VIAL IVP PRN (01:15)
[2021-10-06 04:00] VITALS: BP 109/58
[2021-10-06] MEDS: oxyCODONE IR 5 MG TABLET PO PRN ×3 (05:06→20:43)
[2021-10-06 08:00] VITALS: BP 128/67
[2021-10-06] MEDS: MUPIROCIN 2 % OINTMENT 22GM TUBE. NS SCH ×2 (09:00→20:44)
[2021-10-06] MEDS: BACLOFEN 10 MG TABLET. PO SCH ×2 (09:00→20:43)
[2021-10-06] MEDS: POLYETHYLENE GLYCOL 3350 17 GM PACKET. PO SCH (09:00)
[2021-10-06] MEDS: diazePAM 5 MG TABLET PO SCH ×3 (09:08→22:57)
[2021-10-06] MEDS: ASCORBIC ACID 500 MG TABLET PO SCH (09:08)
[2021-10-06] MEDS: LACTOBACILLUS RHAMNOSUS GG 1 CAPSULE. PO SCH ×2 (09:08→20:43)
[2021-10-06] MEDS: LINAGLIPTIN 5 MG TABLET PO SCH (09:08)
[2021-10-06] MEDS: LOSARTAN POTASSIUM 25 MG TABLET. PO SCH (09:09)
[2021-10-06] MEDS: PREGABALIN 50 MG CAPSULE PO SCH ×2 (09:09→20:42)
[2021-10-06] MEDS: FLUTICASONE 50MCG/NASAL SPRAY 16GM BOTTLE. NS SCH (09:10)
--- NOTE | 2021-10-06 11:43 | PDOC ---
[employer] PROGRESS NOTE Date of Service DOS: DATE: 10/06/21 TIME: 11:42 Chief Complaint Chief Complaint Postoperative posterior cervical laminectomy. Fall in July with cervical fracture (at that time he had a anterior cervical laminectomy) Status post cervical hematoma had to return to the OR History of the following; Cervical laminectomy as per above, diabetes, hypertension, hyperlipidemia, arthritis, GERD, left knee arthroplasty and TIA and also IVC filter and prior ACDF at C4 through C5 and C5 through C6 in 07/2021. History of Present Illness History of Present Illness 10/06/2021 Patient seen and examined in the ICU I discussed the case with his sister again I also discussed the case with case management [facility] rehab may consider taking him after all now that he is improved over the past 3 days 10/05/2021 Patient seen and examined in the ICU His nurses are starting to get ready to clean him up His sister is present Discussed with RN Discussed with case management [facility] if it can be arranged 10/04/2021 Patient seen and examined again in the ICU He remains very weak cannot move his legs was able to move his hands His sister is present I called case management they are checking into possibly if he could go to rehab hospital [facility] Chart reviewed 10/03/2021 Patient seen and examined in the ICU Chart reviewed Discussed with RN Called case management We are [facility]they are evaluating his admission criteria to rehab) 10/02/2021 Patient seen and examined in the ICU He is still unable to move his legs He is able to move his hands and arms slightly but is very weak at bedside Chart reviewed Discussed with RN I called case management to see if maybe he could go to [facility] rehab sometime soon 10/01 Patient evaluated examined at bedside. Continues to improve. Continue rehab. Plan discussed with bedside RN. 09/30 Patient evaluated examined at bedside. Clinically about the same from yesterday. Continue rehab modalities. Labs stable. Plan discussed with bedside RN. 09/29 Patient evaluated at bedside. Underwent MRI this morning. Symptoms very similar to yesterday but he feels like he is regaining some function. Pain controlled. PT OT. Hemoglovin stable. 09/28 Evaluate examined at bedside. Resting in bed had no complaints to me. Said pain is quite improved. Did okay with transfusion yesterday. Continue current treatments. PT/OT. Discussed with bedside RN. Roxi 09/27 Patient evaluated examined at bedside. Was resting in bed easily awoken able to answer some questions. Some movement in his upper extremities but very limited in lower. Transfuse 1 unit today. Plan discussed with RN. Vitals/I&O Vitals/I&O: Vital Signs Date Time Temp Pulse Resp B/P (MAP) Pulse Ox O2 Delivery O2 Flow Rate FiO2 10/06/21 09:09 74 128/59 10/06/21 08:00 Room Air 10/06/21 05:06 14 10/06/21 04:00 98.7 97 98.7 I & O 10/05/21 10/05/21 10/06/21 15:00 23:00 07:00 Intake Total 1200 ml 700 ml 200 ml Output Total 1000 ml 925 ml 450 ml Balance 200 ml -225 ml -250 ml Physical Exam General: Alert, Oriented X3, Cooperative, No acute distress Heart: Regular rate Lungs: Clear Abdomen: Normal bowel sounds, Soft, No tenderness Extremities: No edema, Normal pulses Skin: Other (dressing C,D,I) Assessment and Plan Assessmemt and Plan Postoperative posterior cervical laminectomy. Fall in July with cervical fracture (at that time he had a anterior cervical laminectomy) Status post cervical hematoma had to return to the OR New UTI History of the following; Cervical laminectomy as per above, diabetes, hypertension, hyperlipidemia, arthritis, GERD, left knee arthroplasty and TIA and also IVC filter and prior ACDF at C4 through C5 and C5 through C6 in 07/2021. Plan We are hoping he can go to [facility] rehab after all as he is improved over the past 3 days For now continue the following; PT OT Wound halfway meds DVT prophylaxis Added Levaquin for UTI As needed Valium Continue Lyrica Full code [facility] rehab reevaluation as he has improved over the past 3 days Hope to transfer to [facility] rehab soon Comment Review of Relevant I have reviewed the following items michelle (where applicable) has been applied. Justifications for Admission Other Justification uncontrolled diabetes MISSY BATES III DO Oct 06, 2021 11:43
--- NOTE | 2021-10-06 11:50 | PDOC ---
PROGRESS NOTES Date of Service DATE: 10/06/21 TIME: 11:48 Subjective Subjective No new complaints. Objective Objective Vital Signs Date Time Temp Pulse Resp B/P (MAP) Pulse Ox O2 Delivery O2 Flow Rate FiO2 10/06/21 09:09 74 128/59 10/06/21 08:00 Room Air 10/06/21 05:06 14 10/06/21 04:00 98.7 97 98.7 10/04/21 17:05 2.0 Intake and Output 10/06/21 07:00 Intake Total 2100 ml Output Total 2375 ml Balance -275 ml Intake Oral 2050 ml IV Total 50 ml Output Urine Total 2375 ml # Bowel Movements 2 Physical Exam Physical Exam He is alert,supine in bed and seems to be comfortable and no change with his neurological status. Plan Plan of Care To continue present rehab efforts as tolerated. Comment Review of Relevant I have reviewed the following items michelle (where applicable) has been applied. Labs Laboratory Tests Test 10/04/21 12:35 Glucose (Fingerstick) 181 mg/dL (70-99) Microbiology 10/01/21 Urine Culture - Final, Complete Escherichia Coli Escherichia Coli#2 Medications Current Medications Fentanyl Citrate (Fentanyl 2ml Vial) 25 mcg PRN Q5MIN PRN IVP MILD PAIN 1-3; Start 09/25/21 at 06:00; Stop 09/25/21 at 20:00; Status DC Fentanyl Citrate (Fentanyl 2ml Vial) 50 mcg PRN Q5MIN PRN IVP MODERATE PAIN 4-6 Last administered on 09/25/21at 13:48; Start 09/25/21 at 06:00; Stop 09/25/21 at 20:00; Status DC Morphine Sulfate (Morphine Sulfate) 1 mg PRN Q10MIN PRN IVP SEVERE PAIN 7-10 Last administered on 09/25/21at 14:21; Start 09/25/21 at 06:00; Stop 09/25/21 at 20:00; Status DC Ringer's Solution 1,000 ml @ 30 mls/hr Q24H IV Last administered on 09/25/21at 12:54; Start 09/25/21 at 06:00; Stop 09/25/21 at 17:59; Status DC Hydromorphone HCl (Dilaudid) 0.5 mg PRN Q10MIN PRN IVP SEVERE PAIN 7-10, 2nd CHOICE Last administered on 09/25/21at 16:53; Start 09/25/21 at 06:00; Stop 09/25/21 at 20:00; Status DC Prochlorperazine Edisylate (Compazine) 5 mg PACU PRN PRN IVP NAUSEA, MRX1; Start 09/25/21 at 06:00; Stop 09/25/21 at 20:00; Status DC Cefazolin Sodium 1 gm/Sodium Chloride 1,000 ml @ 1,000 mls/hr 1X ONCE IRR Last administered on 09/25/21at 10:14; Start 09/25/21 at 06:00; Stop 09/25/21 at 06:59; Status DC Cefazolin Sodium/ Dextrose 50 ml @ 100 mls/hr 1X PREOP PRN IV PRIOR TO PROCEDURE Last administered on 09/25/21at 09:30; Start 09/25/21 at 06:00; Stop 09/25/21 at 13:39; Status DC Insulin Human Lispro (HumaLOG VIAL for OP,RR ONLY) 0-10 units PRN Q1HR PRN SQ PER PROTOCOL Last administered on 09/25/21at 17:01; Start 09/25/21 at 07:00; Stop 09/25/21 at 18:00; Status DC Bupivacaine HCl/ Epinephrine Bitart (Sensorcain-Epi 0.5% Kit) 30 ml STK-MED ONCE INJ Last administered on 09/25/21at 10:14; Start 09/25/21 at 10:14; Stop 09/25/21 at 10:30; Status DC Ketorolac Tromethamine (Toradol Im) 60 mg STK-MED ONCE INJ Last administered on 09/25/21at 10:14; Start 09/25/21 at 10:14; Stop 09/25/21 at 10:30; Status DC Thrombin 20,000 unit STK-MED ONCE TP Last administered on 09/25/21at 10:14; Start 09/25/21 at 10:14; Stop 09/25/21 at 10:30; Status DC Gelatin (Gelfoam Size 100) 1 each STK-MED ONCE TP Last administered on 09/25/21at 10:14; Start 09/25/21 at 10:14; Stop 09/25/21 at 10:30; Status DC Acetaminophen (Tylenol) 650 mg PRN Q4HRS PRN PO TEMP OVER 100.4F OR MILD PAIN Last administered on 10/02/21 14:14; Start 09/25/21 at 12:30 Aspirin (Aspirin Chewable) 81 mg DAILY PO Last administered on 09/26/21 08:30; Start 09/26/21 at 09:00; Stop 09/28/21 at 17:19; Status DC Atorvastatin Calcium (Lipitor) 10 mg QHS PO Last administered on 10/05/21 20:39; Start 09/25/21 at 21:00 Baclofen (Lioresal) 10 mg BID PO Last administered on 10/06/21 09:00; Start 09/25/21 at 21:00 Diazepam (Valium) 5 mg TID PO Last administered on 10/06/21 09:08; Start 09/25/21 at 14:00 Docusate Sodium (Colace) 100 mg PRN BID PRN PO HARD STOOLS Last administered on 10/01/21 20:28; Start 09/25/21 at 12:30 Fluticasone Propionate (Flonase) 2 spray DAILY NS Last administered on 10/06/21 09:10; Start 09/26/21 at 09:00 Hydroxyzine HCl (Atarax) 25 mg PRN Q6HRS PRN PO itching Last administered on 10/05/21 22:47; Start 09/25/21 at 12:30 Lidocaine (Lidoderm) 1 patch QHS TP Last administered on 10/03/21 23:31; Start 09/25/21 at 20:00; Stop 10/05/21 at 01:01; Status DC Linagliptin (Tradjenta) 5 mg DAILY PO Last administered on 10/06/21 09:08; Start 09/25/21 at 13:00 Miconazole Nitrate (Monistat-Derm) 1 crispin TID TP Last administered on 10/04/21 20:08; Start 09/25/21 at 21:00; Stop 10/05/21 at 13:23; Status DC Midodrine (Proamatine) 2.5 mg PRN 1X PRN PO hypotension Last administered on 09/27/21 08:56; Start 09/25/21 at 12:30 Oxycodone HCl (Roxicodone) 10 mg PRN Q6HRS PRN PO MODERATE-SEVERE PAIN Last administered on 10/06/21at 05:06; Start 09/25/21 at 12:30 Diclofenac Sodium (Voltaren) 1 crispin PRN TID PRN TP PAIN CONTROL; Start 09/25/21 at 13:15; Stop 09/25/21 at 18:37; Status DC Insulin Glargine (Lantus Syringe) 4 unit QHS SQ Last administered on 10/05/21at 20:48; Start 09/25/21 at 21:00 Losartan Potassium (Cozaar) 25 mg DAILY08 PO Last administered on 10/06/21at 09:09; Start 09/26/21 at 08:00 Polyethylene Glycol (miraLAX PACKET) 17 gm DAILY PO Last administered on 10/03/21at 08:02; Start 09/25/21 at 14:00 Pregabalin (Lyrica) 100 mg BID PO Last administered on 10/06/21at 09:09; Start 09/25/21 at 21:00 Acetaminophen (Tylenol) 650 mg PRN Q6HRS PRN PO MILD PAIN / TEMP > 100.3'F; Start 09/25/21 at 12:30; Status Cancel Al Hydroxide/Mg Hydroxide (Mylanta Plus Xs) 30 ml PRN Q3HRS PRN PO HEARTBURN / GAS; Start 09/25/21 at 12:30 Calcium Carbonate/ Glycine (Tums) 500 mg PRN Q3HRS PRN PO INDIGESTION; Start 09/25/21 at 12:30 Diphenhydramine HCl (Benadryl) 25 mg PRN Q6HRS PRN PO ITCHING; Start 09/25/21 at 12:30 Naloxone HCl (Narcan) 0.1 mg PRN Q2MIN PRN IV SEE COMMENTS; Start 09/25/21 at 12:30 Sodium Chloride (Normal Saline Flush) 3 ml QSHIFT PRN IV AFTER MEDS AND BLOOD DRAWS; Start 09/25/21 at 12:30 Potassium Chloride/Sodium Chloride 1,000 ml @ 75 mls/hr [id number] IV Last administered on 09/26/21at 07:00; Start 09/25/21 at 12:30; Stop 09/26/21 at 17:33; Status DC Magnesium Hydroxide (Milk Of Magnesia) 2,400 mg PRN Q12HR PRN PO CONSTIPATION; Start 09/25/21 at 12:30 Cefazolin Sodium (Ancef) 1 gm Q8H IVP Last administered on 09/26/21at 04:14; Start 09/25/21 at 18:00; Stop 09/26/21 at 10:01; Status DC Fentanyl Citrate (Fentanyl 2ml Vial) 50 mcg PRN Q2HR PRN IVP MODERATE TO SEVERE PAIN Last administered on 10/05/21at 22:46; Start 09/25/21 at 12:30 Dextrose (Dextrose 50%-Water Syringe) 12.5 gm PRN Q15MIN PRN IV SEE COMMENTS; Start 09/25/21 at 12:30 Dextrose (Iv Dextrose 5%) 250 ml PRN Q15MIN PRN IV SEE COMMENTS; Start 09/25/21 at 12:30 Gelatin (Gelfoam Size 100) 1 each STK-MED ONCE .ROUTE ; Start 09/25/21 at 06:37; Stop 09/25/21 at 14:55; Status DC Bupivacaine HCl/ Epinephrine Bitart (Sensorcain-Epi 0.5% Kit) 30 ml STK-MED ONCE .ROUTE ; Start 09/25/21 at 06:37; Stop 09/25/21 at 14:55; Status DC Ketorolac Tromethamine (Toradol Im) 60 mg STK-MED ONCE .ROUTE ; Start 09/25/21 at 06:37; Stop 09/25/21 at 14:55; Status DC Thrombin 20,000 unit STK-MED ONCE TP ; Start 09/25/21 at 06:38; Stop 09/25/21 at 14:55; Status DC Propofol (Diprivan) 200 mg STK-MED ONCE IV ; Start 09/25/21 at 05:54; Stop 09/25/21 at 14:57; Status DC Lidocaine HCl (Lidocaine Pf 2% Vial) 5 ml STK-MED ONCE .ROUTE ; Start 09/25/21 at 05:54; Stop 09/25/21 at 14:57; Status DC Ondansetron HCl (Zofran) 4 mg STK-MED ONCE .ROUTE ; Start 09/25/21 at 05:54; Stop 09/25/21 at 14:57; Status DC Phenylephrine HCl (Ramone-Synephrine Inj) 10 mg STK-MED ONCE .ROUTE ; Start 09/25/21 at 05:54; Stop 09/25/21 at 14:57; Status DC Propofol 50 ml @ As Directed STK-MED ONCE IV ; Start 09/25/21 at 05:54; Stop 09/25/21 at 14:57; Status DC Dexamethasone Sodium Phosphate (Decadron) 4 mg STK-MED ONCE .ROUTE ; Start 09/25/21 at 05:54; Stop 09/25/21 at 14:57; Status DC Fentanyl Citrate (Fentanyl 2ml Vial) 100 mcg STK-MED ONCE .ROUTE ; Start 09/25/21 at 05:54; Stop 09/25/21 at 14:57; Status DC Succinylcholine Chloride (Anectine) 200 mg STK-MED ONCE .ROUTE ; Start 09/25/21 at 05:54; Stop 09/25/21 at 14:57; Status DC Remifentanil HCl (Ultiva) 1 mg STK-MED ONCE IV ; Start 09/25/21 at 05:54; Stop 09/25/21 at 14:57; Status DC Glycopyrrolate (Robinul) 1 mg STK-MED ONCE .ROUTE ; Start 09/25/21 at 07:11; Stop 09/25/21 at 15:01; Status DC Propofol 50 ml @ As Directed STK-MED ONCE IV ; Start 09/25/21 at 08:07; Stop 09/25/21 at 15:02; Status DC Ketamine HCl (Ketamine) 50 mg STK-MED ONCE .ROUTE ; Start 09/25/21 at 08:15; Stop 09/25/21 at 15:02; Status DC Hydromorphone HCl (Dilaudid) 2 mg STK-MED ONCE .ROUTE ; Start 09/25/21 at 10:44; Stop 09/25/21 at 15:03; Status DC Fentanyl Citrate (Fentanyl 2ml Vial) 100 mcg STK-MED ONCE .ROUTE ; Start 09/25/21 at 13:26; Stop 09/25/21 at 15:04; Status DC Morphine Sulfate (Morphine Sulfate) 2 mg STK-MED ONCE .ROUTE ; Start 09/25/21 at 14:04; Stop 09/25/21 at 15:05; Status DC Hydromorphone HCl (Dilaudid) 2 mg STK-MED ONCE .ROUTE ; Start 09/25/21 at 14:54; Stop 09/25/21 at 15:06; Status DC Menthol/Methyl Salicylate ([place] Greaseless Cream) 1 crispin PRN Q30MIN PRN TP MUSCLE PAIN Last administered on 10/02/21at 21:03; Start 09/25/21 at 18:45 Mupirocin (Bactroban) 1 crispin BID NS Last administered on 10/05/21at 20:41; Start 09/26/21 at 09:00 Dexamethasone Sodium Phosphate (Decadron) 10 mg 1X ONCE IVP Last administered on 09/26/21at 07:31; Start 09/26/21 at 07:30; Stop 09/26/21 at 07:31; Status DC Cefazolin Sodium 1 gm/Sodium Chloride 1,000 ml @ 1,000 mls/hr 1X ONCE IRR Last administered on 09/26/21at 11:52; Start 09/26/21 at 10:30; Stop 09/26/21 at 11:29; Status DC Cefazolin Sodium (Ancef) 1 gm STK-MED ONCE IVP ; Start 09/26/21 at 10:05; Stop 09/26/21 at 10:06; Status DC Lidocaine HCl (Lidocaine Pf 2% Vial) 5 ml STK-MED ONCE .ROUTE ; Start 09/26/21 at 10:18; Stop 09/26/21 at 10:18; Status DC Ondansetron HCl (Zofran) 4 mg STK-MED ONCE .ROUTE ; Start 09/26/21 at 10:18; Stop 09/26/21 at 10:18; Status DC Propofol (Diprivan) 200 mg STK-MED ONCE IV ; Start 09/26/21 at 10:18; Stop 09/26/21 at 10:19; Status DC Dexamethasone Sodium Phosphate (Decadron) 4 mg STK-MED ONCE .ROUTE ; Start 09/26/21 at 10:18; Stop 09/26/21 at 10:19; Status DC Sevoflurane (Ultane) 30 ml STK-MED ONCE IH ; Start 09/26/21 at 10:18; Stop 09/26/21 at 10:19; Status DC Fentanyl Citrate (Fentanyl 2ml Vial) 100 mcg STK-MED ONCE .ROUTE ; Start 09/26/21 at 10:19; Stop 09/26/21 at 10:19; Status DC Rocuronium [place] (Zemuron) 50 mg STK-MED ONCE .ROUTE ; Start 09/26/21 at 10:19; Stop 09/26/21 at 10:19; Status DC Insulin Human Lispro (HumaLOG VIAL for OP,RR ONLY) 0-10 units PRN Q1HR PRN SQ PER PROTOCOL Last administered on 09/26/21at 15:11; Start 09/26/21 at 10:30; Stop 09/26/21 at 18:00; Status DC Sugammadex Sodium (Bridion) 200 mg 1X ONCE IVP Last administered on 09/26/21at 10:30; Start 09/26/21 at 10:30; Stop 09/26/21 at 10:31; Status DC Gelatin (Gelfoam Size 100) 1 each STK-MED ONCE .ROUTE Last administered on 09/26/21at 11:52; Start 09/26/21 at 10:30; Stop 09/26/21 at 10:30; Status DC Bupivacaine HCl/ Epinephrine Bitart (Sensorcain-Epi 0.5% Kit) 30 ml STK-MED ONCE .ROUTE ; Start 09/26/21 at 10:30; Stop 09/26/21 at 10:30; Status DC Ketorolac Tromethamine (Toradol Im) 60 mg STK-MED ONCE .ROUTE ; Start 09/26/21 at 10:30; Stop 09/26/21 at 10:30; Status DC Thrombin 20,000 unit STK-MED ONCE TP Last administered on 09/26/21at 11:52; Start 09/26/21 at 10:30; Stop 09/26/21 at 10:31; Status DC Cefazolin Sodium/ Dextrose 50 ml @ As Directed STK-MED ONCE IV ; Start 09/26/21 at 10:32; Stop 09/26/21 at 10:32; Status DC Vancomycin HCl 1 gm/Sodium Chloride 250 ml @ 250 mls/hr PREOP PRN PRN IV PRIOR TO PROCEDURE; Start 09/26/21 at 10:45; Stop 09/26/21 at 14:00; Status DC Cefazolin Sodium/ Dextrose 50 ml @ 100 mls/hr 1X ONCE IV Last administered on 09/26/21at 11:00; Start 09/26/21 at 11:00; Stop 09/26/21 at 11:29; Status DC Dexamethasone Sodium Phosphate (Decadron) 4 mg STK-MED ONCE .ROUTE ; Start 09/26/21 at 11:04; Stop 09/26/21 at 11:04; Status DC Glycopyrrolate (Robinul) 1 mg STK-MED ONCE .ROUTE ; Start 09/26/21 at 11:04; St op 09/26/21 at 11:04; Status DC Hydromorphone HCl (Dilaudid) 2 mg STK-MED ONCE .ROUTE ; Start 09/26/21 at 11:56; Stop 09/26/21 at 11:56; Status DC Fentanyl Citrate (Fentanyl 2ml Vial) 25 mcg PRN Q5MIN PRN IVP MILD PAIN 1-3; Start 09/26/21 at 14:30; Stop 09/26/21 at 18:15; Status DC Fentanyl Citrate (Fentanyl 2ml Vial) 50 mcg PRN Q5MIN PRN IVP MODERATE PAIN 4- 6; Start 09/26/21 at 14:30; Stop 09/26/21 at 18:15; Status DC Morphine Sulfate (Morphine Sulfate) 1 mg PRN Q10MIN PRN IVP SEVERE PAIN 7-10; Start 09/26/21 at 14:30; Stop 09/26/21 at 18:15; Status DC Ringer's Solution 1,000 ml @ 30 mls/hr Q24H IV Last administered on 09/26/21at 15:18; Start 09/26/21 at 14:30; Stop 09/26/21 at 21:00; Status DC Hydromorphone HCl (Dilaudid) 0.5 mg PRN Q10MIN PRN IVP SEVERE PAIN 7-10, 2nd CHOICE; Start 09/26/21 at 14:30; Stop 09/26/21 at 18:15; Status DC Prochlorperazine Edisylate (Compazine) 5 mg PACU PRN PRN IVP NAUSEA, MRX1; Start 09/26/21 at 14:30; Stop 09/26/21 at 21:00; Status DC Fentanyl Citrate (Fentanyl 2ml Vial) 100 mcg STK-MED ONCE .ROUTE ; Start 09/26/21 at 14:23; Stop 09/26/21 at 14:25; Status DC Fentanyl Citrate (Fentanyl 2ml Vial) 25 mcg PRN Q5MIN PRN IVP MILD PAIN 1-3; Start 09/26/21 at 14:30; Stop 09/27/21 at 14:29; Status UNV Fentanyl Citrate (Fentanyl 2ml Vial) 50 mcg PRN Q5MIN PRN IVP MODERATE PAIN 4- 6; Start 09/26/21 at 14:30; Stop 09/27/21 at 14:29; Status UNV Morphine Sulfate (Morphine Sulfate) 1 mg PRN Q10MIN PRN IVP SEVERE PAIN 7-10; Start 09/26/21 at 14:30; Stop 09/27/21 at 14:29; Status UNV Ringer's Solution 1,000 ml @ 30 mls/hr Q24H IV ; Start 09/26/21 at 14:30; Stop 09/27/21 at 02:29; Status UNV Hydromorphone HCl (Dilaudid) 0.5 mg PRN Q10MIN PRN IVP SEVERE PAIN 7-10, 2nd CHOICE; Start 09/26/21 at 14:30; Stop 09/27/21 at 14:29; Status UNV Prochlorperazine Edisylate (Compazine) 5 mg PACU PRN PRN IVP NAUSEA, MRX1; Start 09/26/21 at 14:30; Stop 09/27/21 at 14:29; Status UNV Dexamethasone Sodium Phosphate (Decadron) 4 mg Q6HRS IVP Last administered on 09/28/21at 05:06; Start 09/26/21 at 18:00; Stop 09/28/21 at 06:00; Status DC Sodium Chloride 1,000 ml @ 100 mls/hr Q10H IV Last administered on 10/05/21at 06:41; Start 09/26/21 at 17:30; Stop 10/05/21 at 13:48; Status DC Cefazolin Sodium (Ancef) 1 gm Q8HRS IVP ; Start 09/27/21 at 06:00; Stop 09/27/21 at 05:47; Status DC Vancomycin HCl 1 gm/Sodium Chloride 250 ml @ 166.667 mls/hr 1X ONCE IV Last administered on 09/27/21at 06:27; Start 09/27/21 at 06:00; Stop 09/27/21 at 07:29; Status DC Gadoterate Meglumine (Clariscan) 19 ml 1X ONCE IVP Last administered on 09/29/21at 10:32; Start 09/29/21 at 08:15; Stop 09/29/21 at 08:17; Status DC Bisacodyl (Dulcolax Supp) 10 mg PRN DAILY PRN IN CONSTIPATION; Start 09/29/21 at 14:15 Lactulose (Lactulose) 20 gm PRN DAILY PRN PO CONSTIPATION, 2nd choice Last administered on 10/01/21at 08:35; Start 09/29/21 at 14:30 Ascorbic Acid (Vitamin C) 500 mg DAILY PO Last administered on 10/06/21at 09:08; Start 10/02/21 at 10:00 Levofloxacin/ Dextrose 100 ml @ 100 mls/hr Q24H IV Last administered on 10/02/21at 12:15; Start 10/02/21 at 12:00; Stop 10/03/21 at 08:57; Status DC Levofloxacin/ Dextrose 50 ml @ 50 mls/hr Q24H IV Last administered on 10/05/21at 11:13; Start 10/03/21 at 12:00; Stop 10/06/21 at 23:00 Lactobacillus Rhamnosus (Culturelle) 1 cap BID PO Last administered on 10/06/21at 09:08; Start 10/03/21 at 21:00 Lidocaine (Lidoderm) 1 patch QHS TP Last administered on 10/05/21at 20:39; Start 10/04/21 at 22:00 Levofloxacin (Levaquin) 250 mg DAILY06 PO ; Start 10/07/21 at 06:00 Active Scripts Active Dok (Docusate Sodium) 100 Mg Capsule 100 Mg PO PRN BID PRN 30 Days Tylenol (Acetaminophen) 325 Mg Tablet 650 Mg PO PRN Q4HRS PRN 30 Days Valium (Diazepam) 5 Mg Tablet 5 Mg PO TID Atorvastatin Calcium 10 Mg Tablet 10 Mg PO QHS Reported Midodrine Hcl 2.5 Mg Tablet 2.5 Mg PO PRN 1X PRN Aspirin 81 Mg Tab.chew 81 Mg PO DAILY Baclofen 10 Mg Tablet 10 Mg PO BID Lyrica (Pregabalin) 100 Mg Capsule 100 Mg PO BID 30 Days Polyethylene Glycol 3350 2,500 Gm Powder 17 Gm PO DAILY 30 Days Oxycodone HCl 5 Mg Tablet 10 Mg PO PRN Q6HRS PRN Micatin (Miconazole Nitrate) 14 Gm Cream..g. 1 [place] TP TID Tradjenta (Linagliptin) 5 Mg Tablet 5 Mg PO DAILY Lidocaine PATCH (Lidocaine) 1 Each Adh..patch 1 Each TP DAILY REMOVE AFTER 12 HOURS Levemir (Insulin Detemir) 100 Unit/1 Ml Vial 4 Unit SQ HS Hydroxyzine Hcl 25 Mg Tablet 25 Mg PO PRN Q6HRS PRN Fluticasone Propionate Nasal [place] (Fluticasone Propionate) 16 Gm [place].susp 2 [place] NS DAILY Diclofenac Sodium 100 Gm Gel..gram. 100 Gm TP PRN TID PRN Losartan Potassium 100 Mg Tablet 25 Tab PO DAILY08 Vitals/I & O Vital Sign - Last 24 Hours 10/05/21 10/05/21 10/05/21 10/05/21 12:00 13:56 14:26 16:00 Temp 98.9 98.7 98.9 98.7 Pulse 72 76 Resp 18 16 18 16 B/P (MAP) 131/72 (91) 137/75 (95) Pulse Ox 98 96 95 96 O2 Delivery Room Air Room Air Room Air Room Air 10/05/21 10/05/21 10/05/21 10/05/21 18:03 18:33 20:00 20:00 Temp 98.3 98.3 Pulse 84 Resp 20 16 17 B/P (MAP) 140/71 (94) Pulse Ox 96 96 97 O2 Delivery Room Air Room Air Room Air Room Air 10/06/21 10/06/21 10/06/21 10/06/21 00:00 04:00 05:06 05:36 Temp 98.8 98.7 98.8 98.7 Pulse 82 73 Resp 16 14 14 B/P (MAP) 106/57 (73) 109/58 (75) Pulse Ox 94 97 O2 Delivery Room Air Room Air Room Air Room Air 10/06/21 10/06/21 08:00 09:09 Pulse 74 B/P (MAP) 128/59 O2 Delivery Room Air Intake and Output 10/05/21 10/05/21 10/06/21 15:00 23:00 07:00 Intake Total 1200 ml 700 ml 200 ml Output Total 1000 ml 925 ml 450 ml Balance 200 ml -225 ml -250 ml Justifications for Admission Other Justification uncontrolled diabetes TERRY JURADO MD Oct 06, 2021 11:50
[2021-10-06 11:57] VITALS: BP 137/71
--- NOTE | 2021-10-06 13:50 | PDOC ---
PROGRESS NOTES Date of Service DATE: 10/06/21 TIME: 13:48 Subjective Subjective POD #10 S/P Evacuation of epidural hematoma, s/p cervical laminectomy and fusion 09/25/21 pain well controlled sister at bedside Objective Objective Vital Signs Date Time Temp Pulse Resp B/P (MAP) Pulse Ox O2 Delivery O2 Flow Rate FiO2 10/06/21 11:57 98.5 89 18 137/71 (93) 95 Room Air 98.5 10/04/21 17:05 2.0 Intake and Output 10/06/21 07:00 Intake Total 2100 ml Output Total 2375 ml Balance -275 ml Intake Oral 2050 ml IV Total 50 ml Output Urine Total 2375 ml # Bowel Movements 2 Physical Exam General: Alert, Oriented X3, Cooperative, No acute distress Neuro: Normal speech, Other (sensation intact in upper and lower extremities, moves upper extremities with 3/5 strength, hand grasps slightly stronger- finger extension improved, moves right great toe) Skin: Other (dressing C,D,I) Plan Plan of Care continue current care SCDs working on placement to rehab [facility] out next week Comment Review of Relevant I have reviewed the following items michelle (where applicable) has been applied. Labs Microbiology 10/01/21 Urine Culture - Final, Complete Escherichia Coli Escherichia Coli#2 Medications Current Medications Fentanyl Citrate (Fentanyl 2ml Vial) 25 mcg PRN Q5MIN PRN IVP MILD PAIN 1-3; Start 09/25/21 at 06:00; Stop 09/25/21 at 20:00; Status DC Fentanyl Citrate (Fentanyl 2ml Vial) 50 mcg PRN Q5MIN PRN IVP MODERATE PAIN 4-6 Last administered on 09/25/21at 13:48; Start 09/25/21 at 06:00; Stop 09/25/21 at 2 0:00; Status DC Morphine Sulfate (Morphine Sulfate) 1 mg PRN Q10MIN PRN IVP SEVERE PAIN 7-10 Last administered on 09/25/21at 14:21; Start 09/25/21 at 06:00; Stop 09/25/21 at 20:00; Status DC Ringer's Solution 1,000 ml @ 30 mls/hr Q24H IV Last administered on 09/25/21at 12:54; Start 09/25/21 at 06:00; Stop 09/25/21 at 17:59; Status DC Hydromorphone HCl (Dilaudid) 0.5 mg PRN Q10MIN PRN IVP SEVERE PAIN 7-10, 2nd CHOICE Last administered on 09/25/21at 16:53; Start 09/25/21 at 06:00; Stop 09/25/21 at 20:00; Status DC Prochlorperazine Edisylate (Compazine) 5 mg PACU PRN PRN IVP NAUSEA, MRX1; Start 09/25/21 at 06:00; Stop 09/25/21 at 20:00; Status DC Cefazolin Sodium 1 gm/Sodium Chloride 1,000 ml @ 1,000 mls/hr 1X ONCE IRR Last administered on 09/25/21at 10:14; Start 09/25/21 at 06:00; Stop 09/25/21 at 06:59; Status DC Cefazolin Sodium/ Dextrose 50 ml @ 100 mls/hr 1X PREOP PRN IV PRIOR TO PRO CEDURE Last administered on 09/25/21at 09:30; Start 09/25/21 at 06:00; Stop 09/25/21 at 13:39; Status DC Insulin Human Lispro (HumaLOG VIAL for OP,RR ONLY) 0-10 units PRN Q1HR PRN SQ PER PROTOCOL Last administered on 09/25/21at 17:01; Start 09/25/21 at 07:00; Stop 09/25/21 at 18:00; Status DC Bupivacaine HCl/ Epinephrine Bitart (Sensorcain-Epi 0.5% Kit) 30 ml STK-MED ONCE INJ Last administered on 09/25/21at 10:14; Start 09/25/21 at 10:14; Stop 09/25/21 at 10:30; Status DC Ketorolac Tromethamine (Toradol Im) 60 mg STK-MED ONCE INJ Last administered on 09/25/21at 10:14; Start 09/25/21 at 10:14; Stop 09/25/21 at 10:30; Status DC Thrombin 20,000 unit STK-MED ONCE TP Last administered on 09/25/21at 10:14; Start 09/25/21 at 10:14; Stop 09/25/21 at 10:30; Status DC Gelatin (Gelfoam Size 100) 1 each STK-MED ONCE TP Last administered on 09/25/21at 10:14; Start 09/25/21 at 10:14; Stop 09/25/21 at 10:30; Status DC Acetaminophen (Tylenol) 650 mg PRN Q4HRS PRN PO TEMP OVER 100.4F OR MILD PAIN Last administered on 10/02/21 14:14; Start 09/25/21 at 12:30 Aspirin (Aspirin Chewable) 81 mg DAILY PO Last administered on 09/26/21 08:30; Start 09/26/21 at 09:00; Stop 09/28/21 at 17:19; Status DC Atorvastatin Calcium (Lipitor) 10 mg QHS PO Last administered on 10/05/21 20:39; Start 09/25/21 at 21:00 Baclofen (Lioresal) 10 mg BID PO Last administered on 10/06/21 09:00; Start 09/25/21 at 21:00 Diazepam (Valium) 5 mg TID PO Last administered on 10/06/21 09:08; Start 09/25/21 at 14:00 Docusate Sodium (Colace) 100 mg PRN BID PRN PO HARD STOOLS Last administered on 10/01/21 20:28; Start 09/25/21 at 12:30 Fluticasone Propionate (Flonase) 2 spray DAILY NS Last administered on 10/06/21 09:10; Start 09/26/21 at 09:00 Hydroxyzine HCl (Atarax) 25 mg PRN Q6HRS PRN PO itching Last administered on 10/05/21 22:47; Start 09/25/21 at 12:30 Lidocaine (Lidoderm) 1 patch QHS TP Last administered on 10/03/21 23:31; Start 09/25/21 at 20:00; Stop 10/05/21 at 01:01; Status DC Linagliptin (Tradjenta) 5 mg DAILY PO Last administered on 10/06/21 09:08; Start 09/25/21 at 13:00 Miconazole Nitrate (Monistat-Derm) 1 crispin TID TP Last administered on 10/04/21 20:08; Start 09/25/21 at 21:00; Stop 10/05/21 at 13:23; Status DC Midodrine (Proamatine) 2.5 mg PRN 1X PRN PO hypotension Last administered on 09/27/21at 08:56; Start 09/25/21 at 12:30 Oxycodone HCl (Roxicodone) 10 mg PRN Q6HRS PRN PO MODERATE-SEVERE PAIN Last administered on 10/06/21at 05:06; Start 09/25/21 at 12:30 Diclofenac Sodium (Voltaren) 1 crispin PRN TID PRN TP PAIN CONTROL; Start 09/25/21 at 13:15; Stop 09/25/21 at 18:37; Status DC Insulin Glargine (Lantus Syringe) 4 unit QHS SQ Last administered on 10/05/21at 20:48; Start 09/25/21 at 21:00 Losartan Potassium (Cozaar) 25 mg DAILY08 PO Last administered on 10/06/21at 09:09; Start 09/26/21 at 08:00 Polyethylene Glycol (miraLAX PACKET) 17 gm DAILY PO Last administered on 10/03/21at 08:02; Start 09/25/21 at 14:00 Pregabalin (Lyrica) 100 mg BID PO Last administered on 10/06/21at 09:09; Start 09/25/21 at 21:00 Acetaminophen (Tylenol) 650 mg PRN Q6HRS PRN PO MILD PAIN / TEMP > 100.3'F; Start 09/25/21 at 12:30; Status Cancel Al Hydroxide/Mg Hydroxide (Mylanta Plus Xs) 30 ml PRN Q3HRS PRN PO HEARTBURN / GAS; Start 09/25/21 at 12:30 Calcium Carbonate/ Glycine (Tums) 500 mg PRN Q3HRS PRN PO INDIGESTION; Start 09/25/21 at 12:30 Diphenhydramine HCl (Benadryl) 25 mg PRN Q6HRS PRN PO ITCHING; Start 09/25/21 at 12:30 Naloxone HCl (Narcan) 0.1 mg PRN Q2MIN PRN IV SEE COMMENTS; Start 09/25/21 at 12:30 Sodium Chloride (Normal Saline Flush) 3 ml QSHIFT PRN IV AFTER MEDS AND BLOOD DRAWS; Start 09/25/21 at 12:30 Potassium Chloride/Sodium Chloride 1,000 ml @ 75 mls/hr [id number] IV Last administered on 09/26/21at 07:00; Start 09/25/21 at 12:30; Stop 09/26/21 at 17:33; Status DC Magnesium Hydroxide (Milk Of Magnesia) 2,400 mg PRN Q12HR PRN PO CONSTIPATION; Start 09/25/21 at 12:30 Cefazolin Sodium (Ancef) 1 gm Q8H IVP Last administered on 09/26/21at 04:14; Start 09/25/21 at 18:00; Stop 09/26/21 at 10:01; Status DC Fentanyl Citrate (Fentanyl 2ml Vial) 50 mcg PRN Q2HR PRN IVP MODERATE TO SEVERE PAIN Last administered on 10/05/21at 22:46; Start 09/25/21 at 12:30 Dextrose (Dextrose 50%-Water Syringe) 12.5 gm PRN Q15MIN PRN IV SEE COMMENTS; Start 09/25/21 at 12:30 Dextrose (Iv Dextrose 5%) 250 ml PRN Q15MIN PRN IV SEE COMMENTS; Start 09/25/21 at 12:30 Gelatin (Gelfoam Size 100) 1 each STK-MED ONCE .ROUTE ; Start 09/25/21 at 06:37; Stop 09/25/21 at 14:55; Status DC Bupivacaine HCl/ Epinephrine Bitart (Sensorcain-Epi 0.5% Kit) 30 ml STK-MED ONCE .ROUTE ; Start 09/25/21 at 06:37; Stop 09/25/21 at 14:55; Status DC Ketorolac Tromethamine (Toradol Im) 60 mg STK-MED ONCE .ROUTE ; Start 09/25/21 at 06:37; Stop 09/25/21 at 14:55; Status DC Thrombin 20,000 unit STK-MED ONCE TP ; Start 09/25/21 at 06:38; Stop 09/25/21 at 14:55; Status DC Propofol (Diprivan) 200 mg STK-MED ONCE IV ; Start 09/25/21 at 05:54; Stop 09/25/21 at 14:57; Status DC Lidocaine HCl (Lidocaine Pf 2% Vial) 5 ml STK-MED ONCE .ROUTE ; Start 09/25/21 at 05:54; Stop 09/25/21 at 14:57; Status DC Ondansetron HCl (Zofran) 4 mg STK-MED ONCE .ROUTE ; Start 09/25/21 at 05:54; Stop 09/25/21 at 14:57; Status DC Phenylephrine HCl (Ramone-Synephrine Inj) 10 mg STK-MED ONCE .ROUTE ; Start 09/25/21 at 05:54; Stop 09/25/21 at 14:57; Status DC Propofol 50 ml @ As Directed STK-MED ONCE IV ; Start 09/25/21 at 05:54; Stop 09/25/21 at 14:57; Status DC Dexamethasone Sodium Phosphate (Decadron) 4 mg STK-MED ONCE .ROUTE ; Start 09/25/21 at 05:54; Stop 09/25/21 at 14:57; Status DC Fentanyl Citrate (Fentanyl 2ml Vial) 100 mcg STK-MED ONCE .ROUTE ; Start 09/25/21 at 05:54; Stop 09/25/21 at 14:57; Status DC Succinylcholine Chloride (Anectine) 200 mg STK-MED ONCE .ROUTE ; Start 09/25/21 at 05:54; Stop 09/25/21 at 14:57; Status DC Remifentanil HCl (Ultiva) 1 mg STK-MED ONCE IV ; Start 09/25/21 at 05:54; Stop 09/25/21 at 14:57; Status DC Glycopyrrolate (Robinul) 1 mg STK-MED ONCE .ROUTE ; Start 09/25/21 at 07:11; Stop 09/25/21 at 15:01; Status DC Propofol 50 ml @ As Directed STK-MED ONCE IV ; Start 09/25/21 at 08:07; Stop 09/25/21 at 15:02; Status DC Ketamine HCl (Ketamine) 50 mg STK-MED ONCE .ROUTE ; Start 09/25/21 at 08:15; Stop 09/25/21 at 15:02; Status DC Hydromorphone HCl (Dilaudid) 2 mg STK-MED ONCE .ROUTE ; Start 09/25/21 at 10:44; Stop 09/25/21 at 15:03; Status DC Fentanyl Citrate (Fentanyl 2ml Vial) 100 mcg STK-MED ONCE .ROUTE ; Start 09/25/21 at 13:26; Stop 09/25/21 at 15:04; Status DC Morphine Sulfate (Morphine Sulfate) 2 mg STK-MED ONCE .ROUTE ; Start 09/25/21 at 14:04; Stop 09/25/21 at 15:05; Status DC Hydromorphone HCl (Dilaudid) 2 mg STK-MED ONCE .ROUTE ; Start 09/25/21 at 14:54; Stop 09/25/21 at 15:06; Status DC Menthol/Methyl Salicylate (Bengay Greaseless Cream) 1 crispin PRN Q30MIN PRN TP MUSCLE PAIN Last administered on 10/02/21at 21:03; Start 09/25/21 at 18:45 Mupirocin (Bactroban) 1 crispin BID NS Last administered on 10/05/21at 20:41; Start 09/26/21 at 09:00 Dexamethasone Sodium Phosphate (Decadron) 10 mg 1X ONCE IVP Last administered on 09/26/21at 07:31; Start 09/26/21 at 07:30; Stop 09/26/21 at 07:31; Status DC Cefazolin Sodium 1 gm/Sodium Chloride 1,000 ml @ 1,000 mls/hr 1X ONCE IRR Last administered on 09/26/21at 11:52; Start 09/26/21 at 10:30; Stop 09/26/21 at 11:29; Status DC Cefazolin Sodium (Ancef) 1 gm STK-MED ONCE IVP ; Start 09/26/21 at 10:05; Stop 09/26/21 at 10:06; Status DC Lidocaine HCl (Lidocaine Pf 2% Vial) 5 ml STK-MED ONCE .ROUTE ; Start 09/26/21 at 10:18; Stop 09/26/21 at 10:18; Status DC Ondansetron HCl (Zofran) 4 mg STK-MED ONCE .ROUTE ; Start 09/26/21 at 10:18; Stop 09/26/21 at 10:18; Status DC Propofol (Diprivan) 200 mg STK-MED ONCE IV ; Start 09/26/21 at 10:18; Stop 09/26/21 at 10:19; Status DC Dexamethasone Sodium Phosphate (Decadron) 4 mg STK-MED ONCE .ROUTE ; Start 09/26/21 at 10:18; Stop 09/26/21 at 10:19; Status DC Sevoflurane (Ultane) 30 ml STK-MED ONCE IH ; Start 09/26/21 at 10:18; Stop 09/26/21 at 10:19; Status DC Fentanyl Citrate (Fentanyl 2ml Vial) 100 mcg STK-MED ONCE .ROUTE ; Start 09/26/21 at 10:19; Stop 09/26/21 at 10:19; Status DC Rocuronium [place] (Zemuron) 50 mg STK-MED ONCE .ROUTE ; Start 09/26/21 at 10:19; Stop 09/26/21 at 10:19; Status DC Insulin Human Lispro (HumaLOG VIAL for OP,RR ONLY) 0-10 units PRN Q1HR PRN SQ PER PROTOCOL Last administered on 09/26/21at 15:11; Start 09/26/21 at 10:30; Stop 09/26/21 at 18:00; Status DC Sugammadex Sodium (Bridion) 200 mg 1X ONCE IVP Last administered on 09/26/21at 10:30; Start 09/26/21 at 10:30; Stop 09/26/21 at 10:31; Status DC Gelatin (Gelfoam Size 100) 1 each STK-MED ONCE .ROUTE Last administered on 09/26/21at 11:52; Start 09/26/21 at 10:30; Stop 09/26/21 at 10:30; Status DC Bupivacaine HCl/ Epinephrine Bitart (Sensorcain-Epi 0.5% Kit) 30 ml STK-MED ONCE .ROUTE ; Start 09/26/21 at 10:30; Stop 09/26/21 at 10:30; Status DC Ketorolac Tromethamine (Toradol Im) 60 mg STK-MED ONCE .ROUTE ; Start 09/26/21 at 10:30; Stop 09/26/21 at 10:30; Status DC Thrombin 20,000 unit STK-MED ONCE TP Last administered on 09/26/21at 11:52; Start 09/26/21 at 10:30; Stop 09/26/21 at 10:31; Status DC Cefazolin Sodium/ Dextrose 50 ml @ As Directed STK-MED ONCE IV ; Start 09/26/21 at 10:32; Stop 09/26/21 at 10:32; Status DC Vancomycin HCl 1 gm/Sodium Chloride 250 ml @ 250 mls/hr PREOP PRN PRN IV PRIOR TO PROCEDURE; Start 09/26/21 at 10:45; Stop 09/26/21 at 14:00; Status DC Cefazolin Sodium/ Dextrose 50 ml @ 100 mls/hr 1X ONCE IV Last administered on 09/26/21at 11:00; Start 09/26/21 at 11:00; Stop 09/26/21 at 11:29; Status DC Dexamethasone Sodium Phosphate (Decadron) 4 mg STK-MED ONCE .ROUTE ; Start 09/26/21 at 11:04; Stop 09/26/21 at 11:04; Status DC Glycopyrrolate (Robinul) 1 mg STK-MED ONCE .ROUTE ; Start 09/26/21 at 11:04; Stop 09/26/21 at 11:04; Status DC Hydromorphone HCl (Dilaudid) 2 mg STK-MED ONCE .ROUTE ; Start 09/26/21 at 11:56; Stop 09/26/21 at 11:56; Status DC Fentanyl Citrate (Fentanyl 2ml Vial) 25 mcg PRN Q5MIN PRN IVP MILD PAIN 1-3; Start 09/26/21 at 14:30; Stop 09/26/21 at 18:15; Status DC Fentanyl Citrate (Fentanyl 2ml Vial) 50 mcg PRN Q5MIN PRN IVP MODERATE PAIN 4- 6; Start 09/26/21 at 14:30; Stop 09/26/21 at 18:15; Status DC Morphine Sulfate (Morphine Sulfate) 1 mg PRN Q10MIN PRN IVP SEVERE PAIN 7-10; Start 09/26/21 at 14:30; Stop 09/26/21 at 18:15; Status DC Ringer's Solution 1,000 ml @ 30 mls/hr Q24H IV Last administered on 09/26/21at 15:18; Start 09/26/21 at 14:30; Stop 09/26/21 at 21:00; Status DC Hydromorphone HCl (Dilaudid) 0.5 mg PRN Q10MIN PRN IVP SEVERE PAIN 7-10, 2nd CHOICE; Start 09/26/21 at 14:30; Stop 09/26/21 at 18:15; Status DC Prochlorperazine Edisylate (Compazine) 5 mg PACU PRN PRN IVP NAUSEA, MRX1; Start 09/26/21 at 14:30; Stop 09/26/21 at 21:00; Status DC Fentanyl Citrate (Fentanyl 2ml Vial) 100 mcg STK-MED ONCE .ROUTE ; Start 09/26/21 at 14:23; Stop 09/26/21 at 14:25; Status DC Fentanyl Citrate (Fentanyl 2ml Vial) 25 mcg PRN Q5MIN PRN IVP MILD PAIN 1-3; Start 09/26/21 at 14:30; Stop 09/27/21 at 14:29; Status UNV Fentanyl Citrate (Fentanyl 2ml Vial) 50 mcg PRN Q5MIN PRN IVP MODERATE PAIN 4- 6; Start 09/26/21 at 14:30; Stop 09/27/21 at 14:29; Status UNV Morphine Sulfate (Morphine Sulfate) 1 mg PRN Q10MIN PRN IVP SEVERE PAIN 7-10; Start 09/26/21 at 14:30; Stop 09/27/21 at 14:29; Status UNV Ringer's Solution 1,000 ml @ 30 mls/hr Q24H IV ; Start 09/26/21 at 14:30; Stop 09/27/21 at 02:29; Status UNV Hydromorphone HCl (Dilaudid) 0.5 mg PRN Q10MIN PRN IVP SEVERE PAIN 7-10, 2nd CHOICE; Start 09/26/21 at 14:30; Stop 09/27/21 at 14:29; Status UNV Prochlorperazine Edisylate (Compazine) 5 mg PACU PRN PRN IVP NAUSEA, MRX1; Start 09/26/21 at 14:30; Stop 09/27/21 at 14:29; Status UNV Dexamethasone Sodium Phosphate (Decadron) 4 mg Q6HRS IVP Last administered on 09/28/21at 05:06; Start 09/26/21 at 18:00; Stop 09/28/21 at 06:00; Status DC Sodium Chloride 1,000 ml @ 100 mls/hr Q10H IV Last administered on 10/05/21at 06:41; Start 09/26/21 at 17:30; Stop 10/05/21 at 13:48; Status DC Cefazolin Sodium (Ancef) 1 gm Q8HRS IVP ; Start 09/27/21 at 06:00; Stop 09/27/21 at 05:47; Status DC Vancomycin HCl 1 gm/Sodium Chloride 250 ml @ 166.667 mls/hr 1X ONCE IV Last administered on 09/27/21at 06:27; Start 09/27/21 at 06:00; Stop 09/27/21 at 07:29; Status DC Gadoterate Meglumine (Clariscan) 19 ml 1X ONCE IVP Last administered on 09/29/21at 10:32; Start 09/29/21 at 08:15; Stop 09/29/21 at 08:17; Status DC Bisacodyl (Dulcolax Supp) 10 mg PRN DAILY PRN MD CONSTIPATION; Start 09/29/21 at 14:15 Lactulose (Lactulose) 20 gm PRN DAILY PRN PO CONSTIPATION, 2nd choice Last administered on 10/01/21at 08:35; Start 09/29/21 at 14:30 Ascorbic Acid (Vitamin C) 500 mg DAILY PO Last administered on 10/06/21at 09:08; Start 10/02/21 at 10:00 Levofloxacin/ Dextrose 100 ml @ 100 mls/hr Q24H IV Last administered on 10/02/21at 12:15; Start 10/02/21 at 12:00; Stop 10/03/21 at 08:57; Status DC Levofloxacin/ Dextrose 50 ml @ 50 mls/hr Q24H IV Last administered on 10/05/21at 11:13; Start 10/03/21 at 12:00; Stop 10/06/21 at 23:00 Lactobacillus Rhamnosus (Culturelle) 1 cap BID PO Last administered on 10/06/21at 09:08; Start 10/03/21 at 21:00 Lidocaine (Lidoderm) 1 patch QHS TP Last administered on 10/05/21at 20:39; Start 10/04/21 at 22:00 Levofloxacin (Levaquin) 250 mg DAILY06 PO ; Start 10/07/21 at 06:00 Active Scripts Active Dok (Docusate Sodium) 100 Mg Capsule 100 Mg PO PRN BID PRN 30 Days Tylenol (Acetaminophen) 325 Mg Tablet 650 Mg PO PRN Q4HRS PRN 30 Days Valium (Diazepam) 5 Mg Tablet 5 Mg PO TID Atorvastatin Calcium 10 Mg Tablet 10 Mg PO QHS Reported Midodrine Hcl 2.5 Mg Tablet 2.5 Mg PO PRN 1X PRN Aspirin 81 Mg Tab.chew 81 Mg PO DAILY Baclofen 10 Mg Tablet 10 Mg PO BID Lyrica (Pregabalin) 100 Mg Capsule 100 Mg PO BID 30 Days Polyethylene Glycol 3350 2,500 Gm Powder 17 Gm PO DAILY 30 Days Oxycodone HCl 5 Mg Tablet 10 Mg PO PRN Q6HRS PRN Micatin (Miconazole Nitrate) 14 Gm Cream..g. 1 Crispin TP TID Tradjenta (Linagliptin) 5 Mg Tablet 5 Mg PO DAILY Lidocaine PATCH (Lidocaine) 1 Each Adh..patch 1 Each TP DAILY REMOVE AFTER 12 HOURS Levemir (Insulin Detemir) 100 Unit/1 Ml Vial 4 Unit SQ HS Hydroxyzine Hcl 25 Mg Tablet 25 Mg PO PRN Q6HRS PRN Fluticasone Propionate Nasal Waldo (Fluticasone Propionate) 16 Gm Waldo.susp 2 Waldo NS DAILY Diclofenac Sodium 100 Gm Gel..gram. 100 Gm TP PRN TID PRN Losartan Potassium 100 Mg Tablet 25 Tab PO DAILY08 Vitals/I & O Vital Sign - Last 24 Hours 10/05/21 10/05/21 10/05/21 10/05/21 13:56 14:26 16:00 18:03 Temp 98.7 98.7 Pulse 76 Resp 16 18 16 20 B/P (MAP) 137/75 (95) Pulse Ox 96 95 96 96 O2 Delivery Room Air Room Air Room Air Room Air 10/05/21 10/05/21 10/05/21 10/06/21 18:33 20:00 20:00 00:00 Temp 98.3 98.8 98.3 98.8 Pulse 84 82 Resp 16 17 16 B/P (MAP) 140/71 (94) 106/57 (73) Pulse Ox 96 97 94 O2 Delivery Room Air Room Air Room Air Room Air 10/06/21 10/06/21 10/06/21 10/06/21 04:00 05:06 05:36 08:00 Temp 98.7 98.7 Pulse 73 Resp 14 14 B/P (MAP) 109/58 (75) Pulse Ox 97 O2 Delivery Room Air Room Air Room Air Room Air 10/06/21 10/06/21 10/06/21 08:00 09:09 11:57 Temp 98.4 98.5 98.4 98.5 Pulse 79 74 89 Resp 17 18 B/P (MAP) 128/67 (87) 128/59 137/71 (93) Pulse Ox 95 95 O2 Delivery Room Air Room Air Intake and Output 10/05/21 10/05/21 10/06/21 15:00 23:00 07:00 Intake Total 1200 ml 700 ml 200 ml Output Total 1000 ml 925 ml 450 ml Balance 200 ml -225 ml -250 ml Justifications for Admission Other Justification uncontrolled diabetes TODD RIVERA APRN Oct 06, 2021 13:50
[2021-10-06 16:00] VITALS: BP 120/64
[2021-10-06 20:00] VITALS: BP 153/76
[2021-10-06] MEDS: LIDOCAINE (700MG/PATCH) PATCH. TP SCH (20:43)
[2021-10-06] MEDS: ATORVASTATIN CALCIUM 10 MG TABLET. PO SCH (20:43)
[2021-10-06] MEDS: INSULIN GLARGINE SYRINGE. SQ SCH (20:44)
[2021-10-06] MEDS: hydrOXYzine 25 MG TABLET PO PRN (22:57)
[2021-10-07] MEDS: oxyCODONE IR 5 MG TABLET PO PRN ×3 (02:58→23:58)
[2021-10-07 04:00] VITALS: BP 102/55
[2021-10-07 08:00] VITALS: BP 117/53
[2021-10-07] MEDS: LOSARTAN POTASSIUM 25 MG TABLET. PO SCH (08:11)
[2021-10-07] MEDS: MUPIROCIN 2 % OINTMENT 22GM TUBE. NS SCH ×2 (08:28→21:00)
[2021-10-07] MEDS: LINAGLIPTIN 5 MG TABLET PO SCH (08:28)
[2021-10-07] MEDS: diazePAM 5 MG TABLET PO SCH ×3 (08:28→22:58)
[2021-10-07] MEDS: LACTOBACILLUS RHAMNOSUS GG 1 CAPSULE. PO SCH ×2 (08:28→20:36)
[2021-10-07] MEDS: ASCORBIC ACID 500 MG TABLET PO SCH (08:28)
[2021-10-07] MEDS: FLUTICASONE 50MCG/NASAL SPRAY 16GM BOTTLE. NS SCH (08:28)
[2021-10-07] MEDS: BACLOFEN 10 MG TABLET. PO SCH ×2 (08:28→20:36)
[2021-10-07] MEDS: PREGABALIN 50 MG CAPSULE PO SCH ×2 (08:29→20:43)
[2021-10-07] MEDS: POLYETHYLENE GLYCOL 3350 17 GM PACKET. PO SCH (09:00)
--- NOTE | 2021-10-07 11:31 | PDOC ---
PROGRESS NOTES Date of Service DATE: 10/07/21 TIME: 11:29 Subjective Subjective No new complaints. Objective Objective Vital Signs Date Time Temp Pulse Resp B/P (MAP) Pulse Ox O2 Delivery O2 Flow Rate FiO2 10/07/21 08:11 78 102/55 10/07/21 08:00 98.7 19 96 Room Air 98.7 10/06/21 15:50 2.0 Intake and Output 10/07/21 07:00 Intake Total 1150 ml Output Total 1350 ml Balance -200 ml Intake Oral 1100 ml IV Total 50 ml Output Urine Total 1350 ml Physical Exam Physical Exam He is alert,supine in bed and seems to be comfortable and no change with his neurological status. Plan Plan of Care Waiting for rehab unit transfer when arrangements are completed. Comment Review of Relevant I have reviewed the following items michelle (where applicable) has been applied. Labs Microbiology 10/01/21 Urine Culture - Final, Complete Escherichia Coli Escherichia Coli#2 Medications Current Medications Fentanyl Citrate (Fentanyl 2ml Vial) 25 mcg PRN Q5MIN PRN IVP MILD PAIN 1-3; Start 09/25/21 at 06:00; Stop 09/25/21 at 20:00; Status DC Fentanyl Citrate (Fentanyl 2ml Vial) 50 mcg PRN Q5MIN PRN IVP MODERATE PAIN 4-6 Last administered on 09/25/21at 13:48; Start 09/25/21 at 06:00; Stop 09/25/21 at 20:00; Status DC Morphine Sulfate (Morphine Sulfate) 1 mg PRN Q10MIN PRN IVP SEVERE PAIN 7-10 Last administered on 09/25/21at 14:21; Start 09/25/21 at 06:00; Stop 09/25/21 at 20:00; Status DC Ringer's Solution 1,000 ml @ 30 mls/hr Q24H IV Last administered on 09/25/21at 12:54; Start 09/25/21 at 06:00; Stop 09/25/21 at 17:59; Status DC Hydromorphone HCl (Dilaudid) 0.5 mg PRN Q10MIN PRN IVP SEVERE PAIN 7-10, 2nd CHOICE Last administered on 09/25/21at 16:53; Start 09/25/21 at 06:00; Stop 09/25/21 at 20:00; Status DC Prochlorperazine Edisylate (Compazine) 5 mg PACU PRN PRN IVP NAUSEA, MRX1; Start 09/25/21 at 06:00; Stop 09/25/21 at 20:00; Status DC Cefazolin Sodium 1 gm/Sodium Chloride 1,000 ml @ 1,000 mls/hr 1X ONCE IRR Last administered on 09/25/21at 10:14; Start 09/25/21 at 06:00; Stop 09/25/21 at 06:59; Status DC Cefazolin Sodium/ Dextrose 50 ml @ 100 mls/hr 1X PREOP PRN IV PRIOR TO PROCEDURE Last administered on 09/25/21at 09:30; Start 09/25/21 at 06:00; Stop 09/25/21 at 13:39; Status DC Insulin Human Lispro (HumaLOG VIAL for OP,RR ONLY) 0-10 units PRN Q1HR PRN SQ PER PROTOCOL Last administered on 09/25/21at 17:01; Start 09/25/21 at 07:00; Stop 09/25/21 at 18:00; Status DC Bupivacaine HCl/ Epinephrine Bitart (Sensorcain-Epi 0.5% Kit) 30 ml STK-MED ONCE INJ Last administered on 09/25/21at 10:14; Start 09/25/21 at 10:14; Stop 09/25/21 at 10:30; Status DC Ketorolac Tromethamine (Toradol Im) 60 mg STK-MED ONCE INJ Last administered on 09/25/21at 10:14; Start 09/25/21 at 10:14; Stop 09/25/21 at 10:30; Status DC Thrombin 20,000 unit STK-MED ONCE TP Last administered on 09/25/21at 10:14; Start 09/25/21 at 10:14; Stop 09/25/21 at 10:30; Status DC Gelatin (Gelfoam Size 100) 1 each STK-MED ONCE TP Last administered on 09/25/21at 10:14; Start 09/25/21 at 10:14; Stop 09/25/21 at 10:30; Status DC Acetaminophen (Tylenol) 650 mg PRN Q4HRS PRN PO TEMP OVER 100.4F OR MILD PAIN Last administered on 10/02/21at 14:14; Start 09/25/21 at 12:30 Aspirin (Aspirin Chewable) 81 mg DAILY PO Last administered on 09/26/21 08:30; Start 09/26/21 at 09:00; Stop 09/28/21 at 17:19; Status DC Atorvastatin Calcium (Lipitor) 10 mg QHS PO Last administered on 10/06/21 20:43; Start 09/25/21 at 21:00 Baclofen (Lioresal) 10 mg BID PO Last administered on 10/07/21 08:28; Start 09/25/21 at 21:00 Diazepam (Valium) 5 mg TID PO Last administered on 10/07/21 08:28; Start 09/25/21 at 14:00 Docusate Sodium (Colace) 100 mg PRN BID PRN PO HARD STOOLS Last administered on 10/01/21 20:28; Start 09/25/21 at 12:30 Fluticasone Propionate (Flonase) 2 spray DAILY NS Last administered on 10/07/21 08:28; Start 09/26/21 at 09:00 Hydroxyzine HCl (Atarax) 25 mg PRN Q6HRS PRN PO itching Last administered on 10/06/21 22:57; Start 09/25/21 at 12:30 Lidocaine (Lidoderm) 1 patch QHS TP Last administered on 10/03/21 23:31; Start 09/25/21 at 20:00; Stop 10/05/21 at 01:01; Status DC Linagliptin (Tradjenta) 5 mg DAILY PO Last administered on 10/07/21 08:28; Start 09/25/21 at 13:00 Miconazole Nitrate (Monistat-Derm) 1 crispin TID TP Last administered on 10/04/21 20:08; Start 09/25/21 at 21:00; Stop 10/05/21 at 13:23; Status DC Midodrine (Proamatine) 2.5 mg PRN 1X PRN PO hypotension Last administered on 09/27/21 08:56; Start 09/25/21 at 12:30 Oxycodone HCl (Roxicodone) 10 mg PRN Q6HRS PRN PO MODERATE-SEVERE PAIN Last administered on 10/07/21 02:58; Start 09/25/21 at 12:30 Diclofenac Sodium (Voltaren) 1 crispin PRN TID PRN TP PAIN CONTROL; Start 09/25/21 at 13:15; Stop 09/25/21 at 18:37; Status DC Insulin Glargine (Lantus Syringe) 4 unit QHS SQ Last administered on 10/06/21at 20:44; Start 09/25/21 at 21:00 Losartan Potassium (Cozaar) 25 mg DAILY08 PO Last administered on 10/07/21at 08:11; Start 09/26/21 at 08:00 Polyethylene Glycol (miraLAX PACKET) 17 gm DAILY PO Last administered on 10/03/21at 08:02; Start 09/25/21 at 14:00 Pregabalin (Lyrica) 100 mg BID PO Last administered on 10/07/21at 08:29; Start 09/25/21 at 21:00 Acetaminophen (Tylenol) 650 mg PRN Q6HRS PRN PO MILD PAIN / TEMP > 100.3'F; Start 09/25/21 at 12:30; Status Cancel Al Hydroxide/Mg Hydroxide (Mylanta Plus Xs) 30 ml PRN Q3HRS PRN PO HEARTBURN / GAS; Start 09/25/21 at 12:30 Calcium Carbonate/ Glycine (Tums) 500 mg PRN Q3HRS PRN PO INDIGESTION; Start 09/25/21 at 12:30 Diphenhydramine HCl (Benadryl) 25 mg PRN Q6HRS PRN PO ITCHING; Start 09/25/21 at 12:30 Naloxone HCl (Narcan) 0.1 mg PRN Q2MIN PRN IV SEE COMMENTS; Start 09/25/21 at 12:30 Sodium Chloride (Normal Saline Flush) 3 ml QSHIFT PRN IV AFTER MEDS AND BLOOD DRAWS; Start 09/25/21 at 12:30 Potassium Chloride/Sodium Chloride 1,000 ml @ 75 mls/hr [id number] IV Last administered on 09/26/21at 07:00; Start 09/25/21 at 12:30; Stop 09/26/21 at 17:33; Status DC Magnesium Hydroxide (Milk Of Magnesia) 2,400 mg PRN Q12HR PRN PO CONSTIPATION; Start 09/25/21 at 12:30 Cefazolin Sodium (Ancef) 1 gm Q8H IVP Last administered on 09/26/21at 04:14; Start 09/25/21 at 18:00; Stop 09/26/21 at 10:01; Status DC Fentanyl Citrate (Fentanyl 2ml Vial) 50 mcg PRN Q2HR PRN IVP MODERATE TO SEVERE PAIN Last administered on 10/05/21at 22:46; Start 09/25/21 at 12:30 Dextrose (Dextrose 50%-Water Syringe) 12.5 gm PRN Q15MIN PRN IV SEE COMMENTS; Start 09/25/21 at 12:30 Dextrose (Iv Dextrose 5%) 250 ml PRN Q15MIN PRN IV SEE COMMENTS; Start 09/25/21 at 12:30 Gelatin (Gelfoam Size 100) 1 each STK-MED ONCE .ROUTE ; Start 09/25/21 at 06:37; Stop 09/25/21 at 14:55; Status DC Bupivacaine HCl/ Epinephrine Bitart (Sensorcain-Epi 0.5% Kit) 30 ml STK-MED ONCE .ROUTE ; Start 09/25/21 at 06:37; Stop 09/25/21 at 14:55; Status DC Ketorolac Tromethamine (Toradol Im) 60 mg STK-MED ONCE .ROUTE ; Start 09/25/21 at 06:37; Stop 09/25/21 at 14:55; Status DC Thrombin 20,000 unit STK-MED ONCE TP ; Start 09/25/21 at 06:38; Stop 09/25/21 at 14:55; Status DC Propofol (Diprivan) 200 mg STK-MED ONCE IV ; Start 09/25/21 at 05:54; Stop 09/25/21 at 14:57; Status DC Lidocaine HCl (Lidocaine Pf 2% Vial) 5 ml STK-MED ONCE .ROUTE ; Start 09/25/21 at 05:54; Stop 09/25/21 at 14:57; Status DC Ondansetron HCl (Zofran) 4 mg STK-MED ONCE .ROUTE ; Start 09/25/21 at 05:54; Stop 09/25/21 at 14:57; Status DC Phenylephrine HCl (Ramone-Synephrine Inj) 10 mg STK-MED ONCE .ROUTE ; Start 09/25/21 at 05:54; Stop 09/25/21 at 14:57; Status DC Propofol 50 ml @ As Directed STK-MED ONCE IV ; Start 09/25/21 at 05:54; Stop 09/25/21 at 14:57; Status DC Dexamethasone Sodium Phosphate (Decadron) 4 mg STK-MED ONCE .ROUTE ; Start 09/25/21 at 05:54; Stop 09/25/21 at 14:57; Status DC Fentanyl Citrate (Fentanyl 2ml Vial) 100 mcg STK-MED ONCE .ROUTE ; Start 09/25/21 at 05:54; Stop 09/25/21 at 14:57; Status DC Succinylcholine Chloride (Anectine) 200 mg STK-MED ONCE .ROUTE ; Start 09/25/21 a t 05:54; Stop 09/25/21 at 14:57; Status DC Remifentanil HCl (Ultiva) 1 mg STK-MED ONCE IV ; Start 09/25/21 at 05:54; Stop 09/25/21 at 14:57; Status DC Glycopyrrolate (Robinul) 1 mg STK-MED ONCE .ROUTE ; Start 09/25/21 at 07:11; Stop 09/25/21 at 15:01; Status DC Propofol 50 ml @ As Directed STK-MED ONCE IV ; Start 09/25/21 at 08:07; Stop 09/25/21 at 15:02; Status DC Ketamine HCl (Ketamine) 50 mg STK-MED ONCE .ROUTE ; Start 09/25/21 at 08:15; Stop 09/25/21 at 15:02; Status DC Hydromorphone HCl (Dilaudid) 2 mg STK-MED ONCE .ROUTE ; Start 09/25/21 at 10:44; Stop 09/25/21 at 15:03; Status DC Fentanyl Citrate (Fentanyl 2ml Vial) 100 mcg STK-MED ONCE .ROUTE ; Start 09/25/21 at 13:26; Stop 09/25/21 at 15:04; Status DC Morphine Sulfate (Morphine Sulfate) 2 mg STK-MED ONCE .ROUTE ; Start 09/25/21 at 14:04; Stop 09/25/21 at 15:05; Status DC Hydromorphone HCl (Dilaudid) 2 mg STK-MED ONCE .ROUTE ; Start 09/25/21 at 14:54; Stop 09/25/21 at 15:06; Status DC Menthol/Methyl Salicylate (Bengay Greaseless Cream) 1 crispin PRN Q30MIN PRN TP MUSCLE PAIN Last administered on 10/02/21at 21:03; Start 09/25/21 at 18:45 Mupirocin (Bactroban) 1 crispin BID NS Last administered on 10/07/21at 08:28; Start 09/26/21 at 09:00 Dexamethasone Sodium Phosphate (Decadron) 10 mg 1X ONCE IVP Last administered on 09/26/21at 07:31; Start 09/26/21 at 07:30; Stop 09/26/21 at 07:31; Status DC Cefazolin Sodium 1 gm/Sodium Chloride 1,000 ml @ 1,000 mls/hr 1X ONCE IRR Last administered on 09/26/21at 11:52; Start 09/26/21 at 10:30; Stop 09/26/21 at 11:29; Status DC Cefazolin Sodium (Ancef) 1 gm STK-MED ONCE IVP ; Start 09/26/21 at 10:05; Stop 09/26/21 at 10:06; Status DC Lidocaine HCl (Lidocaine Pf 2% Vial) 5 ml STK-MED ONCE .ROUTE ; Start 09/26/21 at 10:18; Stop 09/26/21 at 10:18; Status DC Ondansetron HCl (Zofran) 4 mg STK-MED ONCE .ROUTE ; Start 09/26/21 at 10:18; Stop 09/26/21 at 10:18; Status DC Propofol (Diprivan) 200 mg STK-MED ONCE IV ; Start 09/26/21 at 10:18; Stop 09/26/21 at 10:19; Status DC Dexamethasone Sodium Phosphate (Decadron) 4 mg STK-MED ONCE .ROUTE ; Start 09/26/21 at 10:18; Stop 09/26/21 at 10:19; Status DC Sevoflurane (Ultane) 30 ml STK-MED ONCE IH ; Start 09/26/21 at 10:18; Stop 09/26/21 at 10:19; Status DC Fentanyl Citrate (Fentanyl 2ml Vial) 100 mcg STK-MED ONCE .ROUTE ; Start 09/26/21 at 10:19; Stop 09/26/21 at 10:19; Status DC Rocuronium [place] (Zemuron) 50 mg STK-MED ONCE .ROUTE ; Start 09/26/21 at 10:19; Stop 09/26/21 at 10:19; Status DC Insulin Human Lispro (HumaLOG VIAL for OP,RR ONLY) 0-10 units PRN Q1HR PRN SQ PER PROTOCOL Last administered on 09/26/21at 15:11; Start 09/26/21 at 10:30; Stop 09/26/21 at 18:00; Status DC Sugammadex Sodium (Bridion) 200 mg 1X ONCE IVP Last administered on 09/26/21at 10:30; Start 09/26/21 at 10:30; Stop 09/26/21 at 10:31; Status DC Gelatin (Gelfoam Size 100) 1 each STK-MED ONCE .ROUTE Last administered on 09/26/21at 11:52; Start 09/26/21 at 10:30; Stop 09/26/21 at 10:30; Status DC Bupivacaine HCl/ Epinephrine Bitart (Sensorcain-Epi 0.5% Kit) 30 ml STK-MED ONCE .ROUTE ; Start 09/26/21 at 10:30; Stop 09/26/21 at 10:30; Status DC Ketorolac Tromethamine (Toradol Im) 60 mg STK-MED ONCE .ROUTE ; Start 09/26/21 at 10:30; Stop 09/26/21 at 10:30; Status DC Thrombin 20,000 unit STK-MED ONCE TP Last administered on 09/26/21at 11:52; Start 09/26/21 at 10:30; Stop 09/26/21 at 10:31; Status DC Cefazolin Sodium/ Dextrose 50 ml @ As Directed STK-MED ONCE IV ; Start 09/26/21 at 10:32; Stop 09/26/21 at 10:32; Status DC Vancomycin HCl 1 gm/Sodium Chloride 250 ml @ 250 mls/hr PREOP PRN PRN IV PRIOR TO PROCEDURE; Start 09/26/21 at 10:45; Stop 09/26/21 at 14:00; Status DC Cefazolin Sodium/ Dextrose 50 ml @ 100 mls/hr 1X ONCE IV Last administered on 09/26/21at 11:00; Start 09/26/21 at 11:00; Stop 09/26/21 at 11:29; Status DC Dexamethasone Sodium Phosphate (Decadron) 4 mg STK-MED ONCE .ROUTE ; Start 09/26/21 at 11:04; Stop 09/26/21 at 11:04; Status DC Glycopyrrolate (Robinul) 1 mg STK-MED ONCE .ROUTE ; Start 09/26/21 at 11:04; Stop 09/26/21 at 11:04; Status DC Hydromorphone HCl (Dilaudid) 2 mg STK-MED ONCE .ROUTE ; Start 09/26/21 at 11:56; Stop 09/26/21 at 11:56; Status DC Fentanyl Citrate (Fentanyl 2ml Vial) 25 mcg PRN Q5MIN PRN IVP MILD PAIN 1-3; Start 09/26/21 at 14:30; Stop 09/26/21 at 18:15; Status DC Fentanyl Citrate (Fentanyl 2ml Vial) 50 mcg PRN Q5MIN PRN IVP MODERATE PAIN 4- 6; Start 09/26/21 at 14:30; Stop 09/26/21 at 18:15; Status DC Morphine Sulfate (Morphine Sulfate) 1 mg PRN Q10MIN PRN IVP SEVERE PAIN 7-10; Start 09/26/21 at 14:30; Stop 09/26/21 at 18:15; Status DC Ringer's Solution 1,000 ml @ 30 mls/hr Q24H IV Last administered on 09/26/21at 15:18; Start 09/26/21 at 14:30; Stop 09/26/21 at 21:00; Status DC Hydromorphone HCl (Dilaudid) 0.5 mg PRN Q10MIN PRN IVP SEVERE PAIN 7-10, 2nd CHOICE; Start 09/26/21 at 14:30; Stop 09/26/21 at 18:15; Status DC Prochlorperazine Edisylate (Compazine) 5 mg PACU PRN PRN IVP NAUSEA, MRX1; Start 09/26/21 at 14:30; Stop 09/26/21 at 21:00; Status DC Fentanyl Citrate (Fentanyl 2ml Vial) 100 mcg STK-MED ONCE .ROUTE ; Start 09/26/21 at 14:23; Stop 09/26/21 at 14:25; Status DC Fentanyl Citrate (Fentanyl 2ml Vial) 25 mcg PRN Q5MIN PRN IVP MILD PAIN 1-3; Start 09/26/21 at 14:30; Stop 09/27/21 at 14:29; Status UNV Fentanyl Citrate (Fentanyl 2ml Vial) 50 mcg PRN Q5MIN PRN IVP MODERATE PAIN 4- 6; Start 09/26/21 at 14:30; Stop 09/27/21 at 14:29; Status UNV Morphine Sulfate (Morphine Sulfate) 1 mg PRN Q10MIN PRN IVP SEVERE PAIN 7-10; Start 09/26/21 at 14:30; Stop 09/27/21 at 14:29; Status UNV Ringer's Solution 1,000 ml @ 30 mls/hr Q24H IV ; Start 09/26/21 at 14:30; Stop 09/27/21 at 02:29; Status UNV Hydromorphone HCl (Dilaudid) 0.5 mg PRN Q10MIN PRN IVP SEVERE PAIN 7-10, 2nd CHOICE; Start 09/26/21 at 14:30; Stop 09/27/21 at 14:29; Status UNV Prochlorperazine Edisylate (Compazine) 5 mg PACU PRN PRN IVP NAUSEA, MRX1; Start 09/26/21 at 14:30; Stop 09/27/21 at 14:29; Status UNV Dexamethasone Sodium Phosphate (Decadron) 4 mg Q6HRS IVP Last administered on 09/28/21at 05:06; Start 09/26/21 at 18:00; Stop 09/28/21 at 06:00; Status DC Sodium Chloride 1,000 ml @ 100 mls/hr Q10H IV Last administered on 10/05/21at 06:41; Start 09/26/21 at 17:30; Stop 10/05/21 at 13:48; Status DC Cefazolin Sodium (Ancef) 1 gm Q8HRS IVP ; Start 09/27/21 at 06:00; Stop 09/27/21 at 05:47; Status DC Vancomycin HCl 1 gm/Sodium Chloride 250 ml @ 166.667 mls/hr 1X ONCE IV Last administered on 09/27/21at 06:27; Start 09/27/21 at 06:00; Stop 09/27/21 at 07:29; Status DC Gadoterate Meglumine (Clariscan) 19 ml 1X ONCE IVP Last administered on 09/29/21at 10:32; Start 09/29/21 at 08:15; Stop 09/29/21 at 08:17; Status DC Bisacodyl (Dulcolax Supp) 10 mg PRN DAILY PRN ID CONSTIPATION; Start 09/29/21 at 14:15 Lactulose (Lactulose) 20 gm PRN DAILY PRN PO CONSTIPATION, 2nd choice Last administered on 10/01/21at 08:35; Start 09/29/21 at 14:30 Ascorbic Acid (Vitamin C) 500 mg DAILY PO Last administered on 10/07/21at 08:28; Start 10/02/21 at 10:00 Levofloxacin/ Dextrose 100 ml @ 100 mls/hr Q24H IV Last administered on 10/02/21at 12:15; Start 10/02/21 at 12:00; Stop 10/03/21 at 08:57; Status DC Levofloxacin/ Dextrose 50 ml @ 50 mls/hr Q24H IV Last administered on 10/06/21at 15:19; Start 10/03/21 at 12:00; Stop 10/06/21 at 23:00; Status DC Lactobacillus Rhamnosus (Culturelle) 1 cap BID PO Last administered on 10/07/21at 08:28; Start 10/03/21 at 21:00 Lidocaine (Lidoderm) 1 patch QHS TP Last administered on 10/06/21at 20:43; Start 10/04/21 at 22:00 Levofloxacin (Levaquin) 250 mg DAILY06 PO Last administered on 10/07/21at 06:01; Start 10/07/21 at 06:00 Active Scripts Active Dok (Docusate Sodium) 100 Mg Capsule 100 Mg PO PRN BID PRN 30 Days Tylenol (Acetaminophen) 325 Mg Tablet 650 Mg PO PRN Q4HRS PRN 30 Days Valium (Diazepam) 5 Mg Tablet 5 Mg PO TID Atorvastatin Calcium 10 Mg Tablet 10 Mg PO QHS Reported Midodrine Hcl 2.5 Mg Tablet 2.5 Mg PO PRN 1X PRN Aspirin 81 Mg Tab.chew 81 Mg PO DAILY Baclofen 10 Mg Tablet 10 Mg PO BID Lyrica (Pregabalin) 100 Mg Capsule 100 Mg PO BID 30 Days Polyethylene Glycol 3350 2,500 Gm Powder 17 Gm PO DAILY 30 Days Oxycodone HCl 5 Mg Tablet 10 Mg PO PRN Q6HRS PRN Micatin (Miconazole Nitrate) 14 Gm Cream..g. 1 [place] TP TID Tradjenta (Linagliptin) 5 Mg Tablet 5 Mg PO DAILY Lidocaine PATCH (Lidocaine) 1 Each Adh..patch 1 Each TP DAILY REMOVE AFTER 12 HOURS Levemir (Insulin Detemir) 100 Unit/1 Ml Vial 4 Unit SQ HS Hydroxyzine Hcl 25 Mg Tablet 25 Mg PO PRN Q6HRS PRN Fluticasone Propionate Nasal [place] (Fluticasone Propionate) 16 Gm [place].susp 2 [place] NS DAILY Diclofenac Sodium 100 Gm Gel..gram. 100 Gm TP PRN TID PRN Losartan Potassium 100 Mg Tablet 25 Tab PO DAILY08 Vitals/I & O Vital Sign - Last 24 Hours 10/06/21 10/06/21 10/06/21 10/06/21 11:57 15:20 15:50 16:00 Temp 98.5 98.1 98.5 98.1 Pulse 89 74 Resp 18 18 18 B/P (MAP) 137/71 (93) 120/64 (82) Pulse Ox 95 95 94 94 O2 Delivery Room Air Room Air Room Air Room Air O2 Flow Rate 2.0 10/06/21 10/06/21 10/06/21 10/06/21 20:00 20:00 20:43 21:15 Temp 98.6 98.6 Pulse 76 Resp 14 14 14 B/P (MAP) 153/76 (101) Pulse Ox 98 98 O2 Delivery Room Air Room Air Room Air Room Air 10/07/21 10/07/21 10/07/21 10/07/21 02:58 03:35 04:00 08:00 Temp 98.4 98.4 Pulse 78 Resp 16 16 B/P (MAP) 102/55 (71) Pulse Ox 95 95 95 O2 Delivery Room Air Room Air Room Air Room Air 10/07/21 10/07/21 08:00 08:11 Temp 98.7 98.7 Pulse 81 78 Resp 19 B/P (MAP) 117/53 (74) 102/55 Pulse Ox 96 O2 Delivery Room Air Intake and Output 10/06/21 10/06/21 10/07/21 15:00 23:00 07:00 Intake Total 750 ml 400 ml Output Total 525 ml 525 ml 300 ml Balance 225 ml -125 ml -300 ml Justifications for Admission Other Justification uncontrolled diabetes TERRY JURADO MD Oct 07, 2021 11:31
--- NOTE | 2021-10-07 11:36 | PDOC ---
[employer] PROGRESS NOTE Date of Service DOS: DATE: 10/07/21 TIME: 11:35 Chief Complaint Chief Complaint Postoperative posterior cervical laminectomy. Fall in July with cervical fracture (at that time he had a anterior cervical laminectomy) Status post cervical hematoma had to return to the OR History of the following; Cervical laminectomy as per above, diabetes, hypertension, hyperlipidemia, arthritis, GERD, left knee arthroplasty and TIA and also IVC filter and prior ACDF at C4 through C5 and C5 through C6 in 07/2021. History of Present Illness History of Present Illness 10/07/2021 Patient seen and examined in the ICU (he is actually in overfull patient) He is working with his nurse to try to use his nurse button and remote control Started to move his toes a little bit Doing much better 10/06/2021 Patient seen and examined in the ICU I discussed the case with his sister again I also discussed the case with case management [facility] rehab may consider taking him after all now that he is improved over the past 3 days 10/05/2021 Patient seen and examined in the ICU His nurses are starting to get ready to clean him up His sister is present Discussed with RN Discussed with case management we are still awaiting rehab [facility] transfer if it can be arranged 10/04/2021 Patient seen and examined again in the ICU He remains very weak cannot move his legs was able to move his hands His sister is present I called case management they are checking into possibly if he could go to rehab [facility] Chart reviewed 10/03/2021 Patient seen and examined in the ICU Chart reviewed Discussed with RN Called case management We are hoping to get the patient transferred to [facility] rehab if possible (they are evaluating his admission criteria to rehab) 10/02/2021 Patient seen and examined in the ICU He is still unable to move his legs He is able to move his hands and arms slightly but is very weak at bedside Chart reviewed Discussed with RN I called case management to see if maybe he could go to [facility] rehab sometime soon 10/01 Patient evaluated examined at bedside. Continues to improve. Continue rehab. Plan discussed with bedside RN. 09/30 Patient evaluated examined at bedside. Clinically about the same from yesterday. Continue rehab modalities. Labs stable. Plan discussed with bedside RN. 09/29 Patient evaluated at bedside. Underwent MRI this morning. Symptoms very similar to yesterday but he feels like he is regaining some function. Pain controlled. PT OT. Hemoglovin stable. 09/28 Evaluate examined at bedside. Resting in bed had no complaints to me. Said pain is quite improved. Did okay with transfusion yesterday. Continue current treatments. PT/OT. Discussed with bedside RN. Roxi 09/27 Patient evaluated examined at bedside. Was resting in bed easily awoken able to answer some questions. Some movement in his upper extremities but very limited in lower. Transfuse 1 unit today. Plan discussed with RN. Vitals/I&O Vitals/I&O: Vital Signs Date Time Temp Pulse Resp B/P (MAP) Pulse Ox O2 Delivery O2 Flow Rate FiO2 10/07/21 08:11 78 102/55 10/07/21 08:00 98.7 19 96 Room Air 98.7 10/06/21 15:50 2.0 I & O 10/06/21 10/06/21 10/07/21 15:00 23:00 07:00 Intake Total 750 ml 400 ml Output Total 525 ml 525 ml 300 ml Balance 225 ml -125 ml -300 ml Physical Exam General: Alert, Oriented X3, Cooperative, No acute distress Heart: Regular rate Lungs: Clear Abdomen: Normal bowel sounds, Soft, No tenderness Extremities: No edema, Normal pulses Skin: Other (dressing C,D,I) Assessment and Plan Assessmemt and Plan Assessmemt and Plan Postoperative posterior cervical laminectomy. Fall in July with cervical fracture (at that time he had a anterior cervical laminectomy) Status post cervical hematoma had to return to the OR New UTI History of the following; Cervical laminectomy as per above, diabetes, hypertension, hyperlipidemia, arthritis, GERD, left knee arthroplasty and TIA and also IVC filter and prior ACDF at C4 through C5 and C5 through C6 in 07/2021. Plan We are hoping he can go to [facility] rehab after all as he is improved over the past 4 days For now continue the following; PT OT Wound snf meds DVT prophylaxis Added Levaquin for UTI As needed Valium Continue Lyrica Full code [facility] rehab reevaluation as he has improved over the past 3 days Hope to transfer to [facility] rehab soon Comment Review of Relevant I have reviewed the following items michelle (where applicable) has been applied. Medications: Current Medications Medications (Trade) Dose Ordered Sig/[place] Route PRN Reason Start Time Stop Time Status Last Admin Dose Admin Levofloxacin (Levaquin) 250 mg DAILY06 PO 10/07/21 06:00 10/07/21 06:01 Justifications for Admission Other Justification uncontrolled diabetes MISSY BATES III DO Oct 07, 2021 11:36
[2021-10-07 12:00] VITALS: BP 110/58
--- NOTE | 2021-10-07 12:13 | PDOC ---
PROGRESS NOTES Date of Service DATE: 10/07/21 TIME: 12:10 Subjective Subjective POD #11 S/P Evacuation of epidural hematoma, s/p cervical laminectomy and fusion 09/25/21 pain well controlled Objective Objective Vital Signs Date Time Temp Pulse Resp B/P (MAP) Pulse Ox O2 Delivery O2 Flow Rate FiO2 10/07/21 08:11 78 102/55 10/07/21 08:00 98.7 19 96 Room Air 98.7 10/06/21 15:50 2.0 Intake and Output 10/07/21 07:00 Intake Total 1150 ml Output Total 1350 ml Balance -200 ml Intake Oral 1100 ml IV Total 50 ml Output Urine Total 1350 ml Physical Exam General: Alert, Oriented X3, Cooperative Neuro: Normal speech, Other (sensation intact in upper and lower extremities, moves upper extremities with 3/5 strength, hand grasps slightly stronger- finger extension improved, moves right great toe) Skin: Other (dressing dry and intact) Plan Plan of Care continue current plan SCDs favio out next week arrangements being made for rehab placement Comment Review of Relevant I have reviewed the following items michelle (where applicable) has been applied. Labs Microbiology 10/01/21 Urine Culture - Final, Complete Escherichia Coli Escherichia Coli#2 Medications Current Medications Fentanyl Citrate (Fentanyl 2ml Vial) 25 mcg PRN Q5MIN PRN IVP MILD PAIN 1-3; Start 09/25/21 at 06:00; Stop 09/25/21 at 20:00; Status DC Fentanyl Citrate (Fentanyl 2ml Vial) 50 mcg PRN Q5MIN PRN IVP MODERATE PAIN 4-6 Last administered on 09/25/21at 13:48; Start 09/25/21 at 06:00; Stop 09/25/21 at 20:00; Status DC Morphine Sulfate (Morphine Sulfate) 1 mg PRN Q10MIN PRN IVP SEVERE PAIN 7-10 Last administered on 09/25/21at 14:21; Start 09/25/21 at 06:00; Stop 09/25/21 at 20:00; Status DC Ringer's Solution 1,000 ml @ 30 mls/hr Q24H IV Last administered on 09/25/21at 12:54; Start 09/25/21 at 06:00; Stop 09/25/21 at 17:59; Status DC Hydromorphone HCl (Dilaudid) 0.5 mg PRN Q10MIN PRN IVP SEVERE PAIN 7-10, 2nd CHOICE Last administered on 09/25/21at 16:53; Start 09/25/21 at 06:00; Stop 09/25/21 at 20:00; Status DC Prochlorperazine Edisylate (Compazine) 5 mg PACU PRN PRN IVP NAUSEA, MRX1; Start 09/25/21 at 06:00; Stop 09/25/21 at 20:00; Status DC Cefazolin Sodium 1 gm/Sodium Chloride 1,000 ml @ 1,000 mls/hr 1X ONCE IRR Last administered on 09/25/21at 10:14; Start 09/25/21 at 06:00; Stop 09/25/21 at 06:59; Status DC Cefazolin Sodium/ Dextrose 50 ml @ 100 mls/hr 1X PREOP PRN IV PRIOR TO PROCEDURE Last administered on 09/25/21at 09:30; Start 09/25/21 at 06:00; Stop 09/25/21 at 13:39; Status DC Insulin Human Lispro (HumaLOG VIAL for OP,RR ONLY) 0-10 units PRN Q1HR PRN SQ PER PROTOCOL Last administered on 09/25/21at 17:01; Start 09/25/21 at 07:00; Stop 09/25/21 at 18:00; Status DC Bupivacaine HCl/ Epinephrine Bitart (Sensorcain-Epi 0.5% Kit) 30 ml STK-MED ONCE INJ Last administered on 09/25/21at 10:14; Start 09/25/21 at 10:14; Stop 09/25/21 at 10:30; Status DC Ketorolac Tromethamine (Toradol Im) 60 mg STK-MED ONCE INJ Last administered on 09/25/21at 10:14; Start 09/25/21 at 10:14; Stop 09/25/21 at 10:30; Status DC Thrombin 20,000 unit STK-MED ONCE TP Last administered on 09/25/21at 10:14; Start 09/25/21 at 10:14; Stop 09/25/21 at 10:30; Status DC Gelatin (Gelfoam Size 100) 1 each STK-MED ONCE TP Last administered on 09/25/21at 10:14; Start 09/25/21 at 10:14; Stop 09/25/21 at 10:30; Status DC Acetaminophen (Tylenol) 650 mg PRN Q4HRS PRN PO TEMP OVER 100.4F OR MILD PAIN Last administered on 10/02/21 14:14; Start 09/25/21 at 12:30 Aspirin (Aspirin Chewable) 81 mg DAILY PO Last administered on 09/26/21 08:30; Start 09/26/21 at 09:00; Stop 09/28/21 at 17:19; Status DC Atorvastatin Calcium (Lipitor) 10 mg QHS PO Last administered on 10/06/21 20:43; Start 09/25/21 at 21:00 Baclofen (Lioresal) 10 mg BID PO Last administered on 10/07/21 08:28; Start 09/25/21 at 21:00 Diazepam (Valium) 5 mg TID PO Last administered on 10/07/21 08:28; Start 09/25/21 at 14:00 Docusate Sodium (Colace) 100 mg PRN BID PRN PO HARD STOOLS Last administered on 10/01/21 20:28; Start 09/25/21 at 12:30 Fluticasone Propionate (Flonase) 2 spray DAILY NS Last administered on 10/07/21 08:28; Start 09/26/21 at 09:00 Hydroxyzine HCl (Atarax) 25 mg PRN Q6HRS PRN PO itching Last administered on 10/06/21 22:57; Start 09/25/21 at 12:30 Lidocaine (Lidoderm) 1 patch QHS TP Last administered on 10/03/21 23:31; Start 09/25/21 at 20:00; Stop 10/05/21 at 01:01; Status DC Linagliptin (Tradjenta) 5 mg DAILY PO Last administered on 10/07/21 08:28; Start 09/25/21 at 13:00 Miconazole Nitrate (Monistat-Derm) 1 crispin TID TP Last administered on 10/04/21 20:08; Start 09/25/21 at 21:00; Stop 10/05/21 at 13:23; Status DC Midodrine (Proamatine) 2.5 mg PRN 1X PRN PO hypotension Last administered on 09/27/21 08:56; Start 09/25/21 at 12:30 Oxycodone HCl (Roxicodone) 10 mg PRN Q6HRS PRN PO MODERATE-SEVERE PAIN Last administered on 10/07/21at 02:58; Start 09/25/21 at 12:30 Diclofenac Sodium (Voltaren) 1 crispin PRN TID PRN TP PAIN CONTROL; Start 09/25/21 at 13:15; Stop 09/25/21 at 18:37; Status DC Insulin Glargine (Lantus Syringe) 4 unit QHS SQ Last administered on 10/06/21at 20:44; Start 09/25/21 at 21:00 Losartan Potassium (Cozaar) 25 mg DAILY08 PO Last administered on 10/07/21at 08:11; Start 09/26/21 at 08:00 Polyethylene Glycol (miraLAX PACKET) 17 gm DAILY PO Last administered on 10/03/21at 08:02; Start 09/25/21 at 14:00 Pregabalin (Lyrica) 100 mg BID PO Last administered on 10/07/21at 08:29; Start 09/25/21 at 21:00 Acetaminophen (Tylenol) 650 mg PRN Q6HRS PRN PO MILD PAIN / TEMP > 100.3'F; Start 09/25/21 at 12:30; Status Cancel Al Hydroxide/Mg Hydroxide (Mylanta Plus Xs) 30 ml PRN Q3HRS PRN PO HEARTBURN / GAS; Start 09/25/21 at 12:30 Calcium Carbonate/ Glycine (Tums) 500 mg PRN Q3HRS PRN PO INDIGESTION; Start 09/25/21 at 12:30 Diphenhydramine HCl (Benadryl) 25 mg PRN Q6HRS PRN PO ITCHING; Start 09/25/21 at 12:30 Naloxone HCl (Narcan) 0.1 mg PRN Q2MIN PRN IV SEE COMMENTS; Start 09/25/21 at 12:30 Sodium Chloride (Normal Saline Flush) 3 ml QSHIFT PRN IV AFTER MEDS AND BLOOD DRAWS; Start 09/25/21 at 12:30 Potassium Chloride/Sodium Chloride 1,000 ml @ 75 mls/hr [id number] IV Last administered on 09/26/21at 07:00; Start 09/25/21 at 12:30; Stop 09/26/21 at 17:33; Status DC Magnesium Hydroxide (Milk Of Magnesia) 2,400 mg PRN Q12HR PRN PO CONSTIPATION; Start 09/25/21 at 12:30 Cefazolin Sodium (Ancef) 1 gm Q8H IVP Last administered on 09/26/21at 04:14; Start 09/25/21 at 18:00; Stop 09/26/21 at 10:01; Status DC Fentanyl Citrate (Fentanyl 2ml Vial) 50 mcg PRN Q2HR PRN IVP MODERATE TO SEVERE PAIN Last administered on 10/05/21at 22:46; Start 09/25/21 at 12:30 Dextrose (Dextrose 50%-Water Syringe) 12.5 gm PRN Q15MIN PRN IV SEE COMMENTS; Start 09/25/21 at 12:30 Dextrose (Iv Dextrose 5%) 250 ml PRN Q15MIN PRN IV SEE COMMENTS; Start 09/25/21 at 12:30 Gelatin (Gelfoam Size 100) 1 each STK-MED ONCE .ROUTE ; Start 09/25/21 at 06:37; Stop 09/25/21 at 14:55; Status DC Bupivacaine HCl/ Epinephrine Bitart (Sensorcain-Epi 0.5% Kit) 30 ml STK-MED ONCE .ROUTE ; Start 09/25/21 at 06:37; Stop 09/25/21 at 14:55; Status DC Ketorolac Tromethamine (Toradol Im) 60 mg STK-MED ONCE .ROUTE ; Start 09/25/21 at 06:37; Stop 09/25/21 at 14:55; Status DC Thrombin 20,000 unit STK-MED ONCE TP ; Start 09/25/21 at 06:38; Stop 09/25/21 at 14:55; Status DC Propofol (Diprivan) 200 mg STK-MED ONCE IV ; Start 09/25/21 at 05:54; Stop 09/25/21 at 14:57; Status DC Lidocaine HCl (Lidocaine Pf 2% Vial) 5 ml STK-MED ONCE .ROUTE ; Start 09/25/21 at 05:54; Stop 09/25/21 at 14:57; Status DC Ondansetron HCl (Zofran) 4 mg STK-MED ONCE .ROUTE ; Start 09/25/21 at 05:54; Stop 09/25/21 at 14:57; Status DC Phenylephrine HCl (Ramone-Synephrine Inj) 10 mg STK-MED ONCE .ROUTE ; Start 09/25/21 at 05:54; Stop 09/25/21 at 14:57; Status DC Propofol 50 ml @ As Directed STK-MED ONCE IV ; Start 09/25/21 at 05:54; Stop 09/25/21 at 14:57; Status DC Dexamethasone Sodium Phosphate (Decadron) 4 mg STK-MED ONCE .ROUTE ; Start 09/25/21 at 05:54; Stop 09/25/21 at 14:57; Status DC Fentanyl Citrate (Fentanyl 2ml Vial) 100 mcg STK-MED ONCE .ROUTE ; Start 09/25/21 at 05:54; Stop 09/25/21 at 14:57; Status DC Succinylcholine Chloride (Anectine) 200 mg STK-MED ONCE .ROUTE ; Start 09/25/21 at 05:54; Stop 09/25/21 at 14:57; Status DC Remifentanil HCl (Ultiva) 1 mg STK-MED ONCE IV ; Start 09/25/21 at 05:54; Stop 09/25/21 at 14:57; Status DC Glycopyrrolate (Robinul) 1 mg STK-MED ONCE .ROUTE ; Start 09/25/21 at 07:11; Stop 09/25/21 at 15:01; Status DC Propofol 50 ml @ As Directed STK-MED ONCE IV ; Start 09/25/21 at 08:07; Stop 09/25/21 at 15:02; Status DC Ketamine HCl (Ketamine) 50 mg STK-MED ONCE .ROUTE ; Start 09/25/21 at 08:15; Stop 09/25/21 at 15:02; Status DC Hydromorphone HCl (Dilaudid) 2 mg STK-MED ONCE .ROUTE ; Start 09/25/21 at 10:44; Stop 09/25/21 at 15:03; Status DC Fentanyl Citrate (Fentanyl 2ml Vial) 100 mcg STK-MED ONCE .ROUTE ; Start 09/25/21 at 13:26; Stop 09/25/21 at 15:04; Status DC Morphine Sulfate (Morphine Sulfate) 2 mg STK-MED ONCE .ROUTE ; Start 09/25/21 at 14:04; Stop 09/25/21 at 15:05; Status DC Hydromorphone HCl (Dilaudid) 2 mg STK-MED ONCE .ROUTE ; Start 09/25/21 at 14:54; Stop 09/25/21 at 15:06; Status DC Menthol/Methyl Salicylate (Bengay Greaseless Cream) 1 crispin PRN Q30MIN PRN TP MUSCLE PAIN Last administered on 10/02/21at 21:03; Start 09/25/21 at 18:45 Mupirocin (Bactroban) 1 crispin BID NS Last administered on 10/07/21at 08:28; Start 09/26/21 at 09:00 Dexamethasone Sodium Phosphate (Decadron) 10 mg 1X ONCE IVP Last administered on 09/26/21at 07:31; Start 09/26/21 at 07:30; Stop 09/26/21 at 07:31; Status DC Cefazolin Sodium 1 gm/Sodium Chloride 1,000 ml @ 1,000 mls/hr 1X ONCE IRR Last administered on 09/26/21at 11:52; Start 09/26/21 at 10:30; Stop 09/26/21 at 11:29; Status DC Cefazolin Sodium (Ancef) 1 gm STK-MED ONCE IVP ; Start 09/26/21 at 10:05; Stop 09/26/21 at 10:06; Status DC Lidocaine HCl (Lidocaine Pf 2% Vial) 5 ml STK-MED ONCE .ROUTE ; Start 09/26/21 at 10:18; Stop 09/26/21 at 10:18; Status DC Ondansetron HCl (Zofran) 4 mg STK-MED ONCE .ROUTE ; Start 09/26/21 at 10:18; Stop 09/26/21 at 10:18; Status DC Propofol (Diprivan) 200 mg STK-MED ONCE IV ; Start 09/26/21 at 10:18; Stop 09/26/21 at 10:19; Status DC Dexamethasone Sodium Phosphate (Decadron) 4 mg STK-MED ONCE .ROUTE ; Start 09/26/21 at 10:18; Stop 09/26/21 at 10:19; Status DC Sevoflurane (Ultane) 30 ml STK-MED ONCE IH ; Start 09/26/21 at 10:18; Stop 09/26/21 at 10:19; Status DC Fentanyl Citrate (Fentanyl 2ml Vial) 100 mcg STK-MED ONCE .ROUTE ; Start 09/26/21 at 10:19; Stop 09/26/21 at 10:19; Status DC Rocuronium [place] (Zemuron) 50 mg STK-MED ONCE .ROUTE ; Start 09/26/21 at 10:19; Stop 09/26/21 at 10:19; Status DC Insulin Human Lispro (HumaLOG VIAL for OP,RR ONLY) 0-10 units PRN Q1HR PRN SQ PER PROTOCOL Last administered on 09/26/21at 15:11; Start 09/26/21 at 10:30; Stop 09/26/21 at 18:00; Status DC Sugammadex Sodium (Bridion) 200 mg 1X ONCE IVP Last administered on 09/26/21at 10:30; Start 09/26/21 at 10:30; Stop 09/26/21 at 10:31; Status DC Gelatin (Gelfoam Size 100) 1 each STK-MED ONCE .ROUTE Last administered on 09/26/21at 11:52; Start 09/26/21 at 10:30; Stop 09/26/21 at 10:30; Status DC Bupivacaine HCl/ Epinephrine Bitart (Sensorcain-Epi 0.5% Kit) 30 ml STK-MED ONCE .ROUTE ; Start 09/26/21 at 10:30; Stop 09/26/21 at 10:30; Status DC Ketorolac Tromethamine (Toradol Im) 60 mg STK-MED ONCE .ROUTE ; Start 09/26/21 at 10:30; Stop 09/26/21 at 10:30; Status DC Thrombin 20,000 unit STK-MED ONCE TP Last administered on 09/26/21at 11:52; Start 09/26/21 at 10:30; Stop 09/26/21 at 10:31; Status DC Cefazolin Sodium/ Dextrose 50 ml @ As Directed STK-MED ONCE IV ; Start 09/26/21 at 10:32; Stop 09/26/21 at 10:32; Status DC Vancomycin HCl 1 gm/Sodium Chloride 250 ml @ 250 mls/hr PREOP PRN PRN IV PRIOR TO PROCEDURE; Start 09/26/21 at 10:45; Stop 09/26/21 at 14:00; Status DC Cefazolin Sodium/ Dextrose 50 ml @ 100 mls/hr 1X ONCE IV Last administered on 09/26/21at 11:00; Start 09/26/21 at 11:00; Stop 09/26/21 at 11:29; Status DC Dexamethasone Sodium Phosphate (Decadron) 4 mg STK-MED ONCE .ROUTE ; Start 09/26/21 at 11:04; Stop 09/26/21 at 11:04; Status DC Glycopyrrolate (Robinul) 1 mg STK-MED ONCE .ROUTE ; Start 09/26/21 at 11:04; Stop 09/26/21 at 11:04; Status DC Hydromorphone HCl (Dilaudid) 2 mg STK-MED ONCE .ROUTE ; Start 09/26/21 at 11:56; Stop 09/26/21 at 11:56; Status DC Fentanyl Citrate (Fentanyl 2ml Vial) 25 mcg PRN Q5MIN PRN IVP MILD PAIN 1-3; Start 09/26/21 at 14:30; Stop 09/26/21 at 18:15; Status DC Fentanyl Citrate (Fentanyl 2ml Vial) 50 mcg PRN Q5MIN PRN IVP MODERATE PAIN 4- 6; Start 09/26/21 at 14:30; Stop 09/26/21 at 18:15; Status DC Morphine Sulfate (Morphine Sulfate) 1 mg PRN Q10MIN PRN IVP SEVERE PAIN 7-10; Start 09/26/21 at 14:30; Stop 09/26/21 at 18:15; Status DC Ringer's Solution 1,000 ml @ 30 mls/hr Q24H IV Last administered on 09/26/21at 15:18; Start 09/26/21 at 14:30; Stop 09/26/21 at 21:00; Status DC Hydromorphone HCl (Dilaudid) 0.5 mg PRN Q10MIN PRN IVP SEVERE PAIN 7-10, 2nd CHOICE; Start 09/26/21 at 14:30; Stop 09/26/21 at 18:15; Status DC Prochlorperazine Edisylate (Compazine) 5 mg PACU PRN PRN IVP NAUSEA, MRX1; Start 09/26/21 at 14:30; Stop 09/26/21 at 21:00; Status DC Fentanyl Citrate (Fentanyl 2ml Vial) 100 mcg STK-MED ONCE .ROUTE ; Start 09/26/21 at 14:23; Stop 09/26/21 at 14:25; Status DC Fentanyl Citrate (Fentanyl 2ml Vial) 25 mcg PRN Q5MIN PRN IVP MILD PAIN 1-3; Start 09/26/21 at 14:30; Stop 09/27/21 at 14:29; Status UNV Fentanyl Citrate (Fentanyl 2ml Vial) 50 mcg PRN Q5MIN PRN IVP MODERATE PAIN 4- 6; Start 09/26/21 at 14:30; Stop 09/27/21 at 14:29; Status UNV Morphine Sulfate (Morphine Sulfate) 1 mg PRN Q10MIN PRN IVP SEVERE PAIN 7-10; Start 09/26/21 at 14:30; Stop 09/27/21 at 14:29; Status UNV Ringer's Solution 1,000 ml @ 30 mls/hr Q24H IV ; Start 09/26/21 at 14:30; Stop 09/27/21 at 02:29; Status UNV Hydromorphone HCl (Dilaudid) 0.5 mg PRN Q10MIN PRN IVP SEVERE PAIN 7-10, 2nd CHOICE; Start 09/26/21 at 14:30; Stop 09/27/21 at 14:29; Status UNV Prochlorperazine Edisylate (Compazine) 5 mg PACU PRN PRN IVP NAUSEA, MRX1; S tart 09/26/21 at 14:30; Stop 09/27/21 at 14:29; Status UNV Dexamethasone Sodium Phosphate (Decadron) 4 mg Q6HRS IVP Last administered on 09/28/21at 05:06; Start 09/26/21 at 18:00; Stop 09/28/21 at 06:00; Status DC Sodium Chloride 1,000 ml @ 100 mls/hr Q10H IV Last administered on 10/05/21at 06:41; Start 09/26/21 at 17:30; Stop 10/05/21 at 13:48; Status DC Cefazolin Sodium (Ancef) 1 gm Q8HRS IVP ; Start 09/27/21 at 06:00; Stop 09/27/21 at 05:47; Status DC Vancomycin HCl 1 gm/Sodium Chloride 250 ml @ 166.667 mls/hr 1X ONCE IV Last administered on 09/27/21at 06:27; Start 09/27/21 at 06:00; Stop 09/27/21 at 07:29; Status DC Gadoterate Meglumine (Clariscan) 19 ml 1X ONCE IVP Last administered on 09/29/21at 10:32; Start 09/29/21 at 08:15; Stop 09/29/21 at 08:17; Status DC Bisacodyl (Dulcolax Supp) 10 mg PRN DAILY PRN ND CONSTIPATION; Start 09/29/21 at 14:15 Lactulose (Lactulose) 20 gm PRN DAILY PRN PO CONSTIPATION, 2nd choice Last administered on 10/01/21at 08:35; Start 09/29/21 at 14:30 Ascorbic Acid (Vitamin C) 500 mg DAILY PO Last administered on 10/07/21at 08:28; Start 10/02/21 at 10:00 Levofloxacin/ Dextrose 100 ml @ 100 mls/hr Q24H IV Last administered on 10/02/21at 12:15; Start 10/02/21 at 12:00; Stop 10/03/21 at 08:57; Status DC Levofloxacin/ Dextrose 50 ml @ 50 mls/hr Q24H IV Last administered on 10/06/21at 15:19; Start 10/03/21 at 12:00; Stop 10/06/21 at 23:00; Status DC Lactobacillus Rhamnosus (Culturelle) 1 cap BID PO Last administered on 10/07/21at 08:28; Start 10/03/21 at 21:00 Lidocaine (Lidoderm) 1 patch QHS TP Last administered on 10/06/21at 20:43; Start 10/04/21 at 22:00 Levofloxacin (Levaquin) 250 mg DAILY06 PO Last administered on 10/07/21at 06:01; Start 10/07/21 at 06:00 Active Scripts Active Dok (Docusate Sodium) 100 Mg Capsule 100 Mg PO PRN BID PRN 30 Days Tylenol (Acetaminophen) 325 Mg Tablet 650 Mg PO PRN Q4HRS PRN 30 Days Valium (Diazepam) 5 Mg Tablet 5 Mg PO TID Atorvastatin Calcium 10 Mg Tablet 10 Mg PO QHS Reported Midodrine Hcl 2.5 Mg Tablet 2.5 Mg PO PRN 1X PRN Aspirin 81 Mg Tab.chew 81 Mg PO DAILY Baclofen 10 Mg Tablet 10 Mg PO BID Lyrica (Pregabalin) 100 Mg Capsule 100 Mg PO BID 30 Days Polyethylene Glycol 3350 2,500 Gm Powder 17 Gm PO DAILY 30 Days Oxycodone HCl 5 Mg Tablet 10 Mg PO PRN Q6HRS PRN Micatin (Miconazole Nitrate) 14 Gm Cream..g. 1 [place] TP TID Tradjenta (Linagliptin) 5 Mg Tablet 5 Mg PO DAILY Lidocaine PATCH (Lidocaine) 1 Each Adh..patch 1 Each TP DAILY REMOVE AFTER 12 HOURS Levemir (Insulin Detemir) 100 Unit/1 Ml Vial 4 Unit SQ HS Hydroxyzine Hcl 25 Mg Tablet 25 Mg PO PRN Q6HRS PRN Fluticasone Propionate Nasal [place] (Fluticasone Propionate) 16 Gm [place].susp 2 [place] NS DAILY Diclofenac Sodium 100 Gm Gel..gram. 100 Gm TP PRN TID PRN Losartan Potassium 100 Mg Tablet 25 Tab PO DAILY08 Vitals/I & O Vital Sign - Last 24 Hours 10/06/21 10/06/21 10/06/21 10/06/21 15:20 15:50 16:00 20:00 Temp 98.1 98.6 98.1 98.6 Pulse 74 76 Resp 18 18 14 B/P (MAP) 120/64 (82) 153/76 (101) Pulse Ox 95 94 94 98 O2 Delivery Room Air Room Air Room Air Room Air O2 Flow Rate 2.0 10/06/21 10/06/21 10/06/21 10/07/21 20:00 20:43 21:15 02:58 Resp 14 14 16 Pulse Ox 98 95 O2 Delivery Room Air Room Air Room Air Room Air 10/07/21 10/07/21 10/07/21 10/07/21 03:35 04:00 08:00 08:00 Temp 98.4 98.7 98.4 98.7 Pulse 78 81 Resp 16 19 B/P (MAP) 102/55 (71) 117/53 (74) Pulse Ox 95 95 96 O2 Delivery Room Air Room Air Room Air Room Air 10/07/21 08:11 Pulse 78 B/P (MAP) 102/55 Intake and Output 10/06/21 10/06/21 10/07/21 15:00 23:00 07:00 Intake Total 750 ml 400 ml Output Total 525 ml 525 ml 300 ml Balance 225 ml -125 ml -300 ml Justifications for Admission Other Justification uncontrolled diabetes KELLEN BRUNO MD Oct 07, 2021 12:13
[2021-10-07 16:00] VITALS: BP 106/60
[2021-10-07 20:28] VITALS: BP 126/62
[2021-10-07] MEDS: ATORVASTATIN CALCIUM 10 MG TABLET. PO SCH (20:36)
[2021-10-07] MEDS: LIDOCAINE (700MG/PATCH) PATCH. TP SCH (20:39)
[2021-10-07] MEDS: INSULIN GLARGINE SYRINGE. SQ SCH (20:41)
[2021-10-07] MEDS: hydrOXYzine 25 MG TABLET PO PRN (22:58)
[2021-10-08] VITALS: BP 116/49
[2021-10-08 04:30] VITALS: BP 128/65
[2021-10-08] MEDS: oxyCODONE IR 5 MG TABLET PO PRN ×3 (06:27→22:45)
[2021-10-08 08:00] VITALS: BP 117/49
[2021-10-08] MEDS: LINAGLIPTIN 5 MG TABLET PO SCH (08:24)
[2021-10-08] MEDS: ASCORBIC ACID 500 MG TABLET PO SCH (08:24)
[2021-10-08] MEDS: LACTOBACILLUS RHAMNOSUS GG 1 CAPSULE. PO SCH ×2 (08:24→21:41)
[2021-10-08] MEDS: BACLOFEN 10 MG TABLET. PO SCH ×2 (08:24→21:41)
[2021-10-08] MEDS: LOSARTAN POTASSIUM 25 MG TABLET. PO SCH (08:24)
[2021-10-08] MEDS: PREGABALIN 50 MG CAPSULE PO SCH ×2 (08:25→21:41)
[2021-10-08] MEDS: MUPIROCIN 2 % OINTMENT 22GM TUBE. NS SCH ×2 (08:25→21:00)
[2021-10-08] MEDS: FLUTICASONE 50MCG/NASAL SPRAY 16GM BOTTLE. NS SCH (08:25)
[2021-10-08] MEDS: POLYETHYLENE GLYCOL 3350 17 GM PACKET. PO SCH (09:00)
[2021-10-08] MEDS: diazePAM 5 MG TABLET PO SCH ×3 (09:00→21:41)
--- NOTE | 2021-10-08 11:22 | PDOC ---
PROGRESS NOTES Date of Service DATE: 10/08/21 TIME: 11:20 Subjective Subjective No new complaints. Objective Objective Vital Signs Date Time Temp Pulse Resp B/P (MAP) Pulse Ox O2 Delivery O2 Flow Rate FiO2 10/08/21 08:24 71 117/40 10/08/21 08:00 97.9 19 98 Room Air 97.9 10/06/21 15:50 2.0 Intake and Output 10/08/21 07:00 Intake Total 1850 ml Output Total 1877 ml Balance -27 ml Intake Oral 1850 ml Output Urine Total 1875 ml Stool Total 2 ml Physical Exam Physical Exam He is alert,supiine in bed with head end propped up and he had trace right big toe movement and also right hip extension and adduction. Plan Plan of Care To continue present care efforts while waiting for rehab unit or SNF transfer. Comment Review of Relevant I have reviewed the following items michelle (where applicable) has been applied. Labs Microbiology 10/01/21 Urine Culture - Final, Complete Escherichia Coli Escherichia Coli#2 Medications Current Medications Fentanyl Citrate (Fentanyl 2ml Vial) 25 mcg PRN Q5MIN PRN IVP MILD PAIN 1-3; Start 09/25/21 at 06:00; Stop 09/25/21 at 20:00; Status DC Fentanyl Citrate (Fentanyl 2ml Vial) 50 mcg PRN Q5MIN PRN IVP MODERATE PAIN 4-6 Last administered on 09/25/21at 13:48; Start 09/25/21 at 06:00; Stop 09/25/21 at 20:00; Status DC Morphine Sulfate (Morphine Sulfate) 1 mg PRN Q10MIN PRN IVP SEVERE PAIN 7-10 Last administered on 09/25/21at 14:21; Start 09/25/21 at 06:00; Stop 09/25/21 at 20:00; Status DC Ringer's Solution 1,000 ml @ 30 mls/hr Q24H IV Last administered on 09/25/21at 12:54; Start 09/25/21 at 06:00; Stop 09/25/21 at 17:59; Status DC Hydromorphone HCl (Dilaudid) 0.5 mg PRN Q10MIN PRN IVP SEVERE PAIN 7-10, 2nd CHOICE Last administered on 09/25/21at 16:53; Start 09/25/21 at 06:00; Stop 09/25/21 at 20:00; Status DC Prochlorperazine Edisylate (Compazine) 5 mg PACU PRN PRN IVP NAUSEA, MRX1; Start 09/25/21 at 06:00; Stop 09/25/21 at 20:00; Status DC Cefazolin Sodium 1 gm/Sodium Chloride 1,000 ml @ 1,000 mls/hr 1X ONCE IRR Last administered on 09/25/21at 10:14; Start 09/25/21 at 06:00; Stop 09/25/21 at 06:59; Status DC Cefazolin Sodium/ Dextrose 50 ml @ 100 mls/hr 1X PREOP PRN IV PRIOR TO PROCEDURE Last administered on 09/25/21at 09:30; Start 09/25/21 at 06:00; Stop 09/25/21 at 13:39; Status DC Insulin Human Lispro (HumaLOG VIAL for OP,RR ONLY) 0-10 units PRN Q1HR PRN SQ PER PROTOCOL Last administered on 09/25/21at 17:01; Start 09/25/21 at 07:00; Stop 09/25/21 at 18:00; Status DC Bupivacaine HCl/ Epinephrine Bitart (Sensorcain-Epi 0.5% Kit) 30 ml STK-MED ONCE INJ Last administered on 09/25/21at 10:14; Start 09/25/21 at 10:14; Stop 09/25/21 at 10:30; Status DC Ketorolac Tromethamine (Toradol Im) 60 mg STK-MED ONCE INJ Last administered on 09/25/21at 10:14; Start 09/25/21 at 10:14; Stop 09/25/21 at 10:30; Status DC Thrombin 20,000 unit STK-MED ONCE TP Last administered on 09/25/21at 10:14; Start 09/25/21 at 10:14; Stop 09/25/21 at 10:30; Status DC Gelatin (Gelfoam Size 100) 1 each STK-MED ONCE TP Last administered on 09/25/21at 10:14; Start 09/25/21 at 10:14; Stop 09/25/21 at 10:30; Status DC Acetaminophen (Tylenol) 650 mg PRN Q4HRS PRN PO TEMP OVER 100.4F OR MILD PAIN Last administered on 10/02/21 14:14; Start 09/25/21 at 12:30 Aspirin (Aspirin Chewable) 81 mg DAILY PO Last administered on 09/26/21 08:30; Start 09/26/21 at 09:00; Stop 09/28/21 at 17:19; Status DC Atorvastatin Calcium (Lipitor) 10 mg QHS PO Last administered on 10/07/21 20:36; Start 09/25/21 at 21:00 Baclofen (Lioresal) 10 mg BID PO Last administered on 10/08/21 08:24; Start 09/25/21 at 21:00 Diazepam (Valium) 5 mg TID PO Last administered on 10/07/21 22:58; Start 09/25/21 at 14:00 Docusate Sodium (Colace) 100 mg PRN BID PRN PO HARD STOOLS Last administered on 10/01/21 20:28; Start 09/25/21 at 12:30 Fluticasone Propionate (Flonase) 2 spray DAILY NS Last administered on 10/08/21 08:25; Start 09/26/21 at 09:00 Hydroxyzine HCl (Atarax) 25 mg PRN Q6HRS PRN PO itching Last administered on 10/07/21 22:58; Start 09/25/21 at 12:30 Lidocaine (Lidoderm) 1 patch QHS TP Last administered on 10/03/21 23:31; Start 09/25/21 at 20:00; Stop 10/05/21 at 01:01; Status DC Linagliptin (Tradjenta) 5 mg DAILY PO Last administered on 10/08/21 08:24; Start 09/25/21 at 13:00 Miconazole Nitrate (Monistat-Derm) 1 crispin TID TP Last administered on 10/04/21 20:08; Start 09/25/21 at 21:00; Stop 10/05/21 at 13:23; Status DC Midodrine (Proamatine) 2.5 mg PRN 1X PRN PO hypotension Last administered on 09/27/21 08:56; Start 09/25/21 at 12:30 Oxycodone HCl (Roxicodone) 10 mg PRN Q6HRS PRN PO MODERATE-SEVERE PAIN Last administered on 2/20/22at 06:27; Start 09/25/21 at 12:30 Diclofenac Sodium (Voltaren) 1 crispin PRN TID PRN TP PAIN CONTROL; Start 09/25/21 at 13:15; Stop 09/25/21 at 18:37; Status DC Insulin Glargine (Lantus Syringe) 4 unit QHS SQ Last administered on 10/07/21at 20:41; Start 09/25/21 at 21:00 Losartan Potassium (Cozaar) 25 mg DAILY08 PO Last administered on 10/08/21at 08:24; Start 09/26/21 at 08:00 Polyethylene Glycol (miraLAX PACKET) 17 gm DAILY PO Last administered on 10/03/21at 08:02; Start 09/25/21 at 14:00 Pregabalin (Lyrica) 100 mg BID PO Last administered on 10/08/21at 08:25; Start 09/25/21 at 21:00 Acetaminophen (Tylenol) 650 mg PRN Q6HRS PRN PO MILD PAIN / TEMP > 100.3'F; Start 09/25/21 at 12:30; Status Cancel Al Hydroxide/Mg Hydroxide (Mylanta Plus Xs) 30 ml PRN Q3HRS PRN PO HEARTBURN / GAS; Start 09/25/21 at 12:30 Calcium Carbonate/ Glycine (Tums) 500 mg PRN Q3HRS PRN PO INDIGESTION; Start 09/25/21 at 12:30 Diphenhydramine HCl (Benadryl) 25 mg PRN Q6HRS PRN PO ITCHING; Start 09/25/21 at 12:30 Naloxone HCl (Narcan) 0.1 mg PRN Q2MIN PRN IV SEE COMMENTS; Start 09/25/21 at 12:30 Sodium Chloride (Normal Saline Flush) 3 ml QSHIFT PRN IV AFTER MEDS AND BLOOD DRAWS; Start 09/25/21 at 12:30 Potassium Chloride/Sodium Chloride 1,000 ml @ 75 mls/hr [id number] IV Last administered on 09/26/21at 07:00; Start 09/25/21 at 12:30; Stop 09/26/21 at 17:33; Status DC Magnesium Hydroxide (Milk Of Magnesia) 2,400 mg PRN Q12HR PRN PO CONSTIPATION; Start 09/25/21 at 12:30 Cefazolin Sodium (Ancef) 1 gm Q8H IVP Last administered on 09/26/21at 04:14; Start 09/25/21 at 18:00; Stop 09/26/21 at 10:01; Status DC Fentanyl Citrate (Fentanyl 2ml Vial) 50 mcg PRN Q2HR PRN IVP MODERATE TO SEVERE PAIN Last administered on 10/05/21at 22:46; Start 09/25/21 at 12:30 Dextrose (Dextrose 50%-Water Syringe) 12.5 gm PRN Q15MIN PRN IV SEE COMMENTS; Start 09/25/21 at 12:30 Dextrose (Iv Dextrose 5%) 250 ml PRN Q15MIN PRN IV SEE COMMENTS; Start 09/25/21 at 12:30 Gelatin (Gelfoam Size 100) 1 each STK-MED ONCE .ROUTE ; Start 09/25/21 at 06:37; Stop 09/25/21 at 14:55; Status DC Bupivacaine HCl/ Epinephrine Bitart (Sensorcain-Epi 0.5% Kit) 30 ml STK-MED ONCE .ROUTE ; Start 09/25/21 at 06:37; Stop 09/25/21 at 14:55; Status DC Ketorolac Tromethamine (Toradol Im) 60 mg STK-MED ONCE .ROUTE ; Start 09/25/21 at 06:37; Stop 09/25/21 at 14:55; Status DC Thrombin 20,000 unit STK-MED ONCE TP ; Start 09/25/21 at 06:38; Stop 09/25/21 at 14:55; Status DC Propofol (Diprivan) 200 mg STK-MED ONCE IV ; Start 09/25/21 at 05:54; Stop at 14:57; Status DC Lidocaine HCl (Lidocaine Pf 2% Vial) 5 ml STK-MED ONCE .ROUTE ; Start 09/25/21 at 05:54; Stop 09/25/21 at 14:57; Status DC Ondansetron HCl (Zofran) 4 mg STK-MED ONCE .ROUTE ; Start 09/25/21 at 05:54; Stop 09/25/21 at 14:57; Status DC Phenylephrine HCl (Ramone-Synephrine Inj) 10 mg STK-MED ONCE .ROUTE ; Start 09/25/21 at 05:54; Stop 09/25/21 at 14:57; Status DC Propofol 50 ml @ As Directed STK-MED ONCE IV ; Start 09/25/21 at 05:54; Stop 09/25/21 at 14:57; Status DC Dexamethasone Sodium Phosphate (Decadron) 4 mg STK-MED ONCE .ROUTE ; Start 09/25/21 at 05:54; Stop 09/25/21 at 14:57; Status DC Fentanyl Citrate (Fentanyl 2ml Vial) 100 mcg STK-MED ONCE .ROUTE ; Start 09/25/21 at 05:54; Stop 09/25/21 at 14:57; Status DC Succinylcholine Chloride (Anectine) 200 mg STK-MED ONCE .ROUTE ; Start 09/25/21 at 05:54; Stop 09/25/21 at 14:57; Status DC Remifentanil HCl (Ultiva) 1 mg STK-MED ONCE IV ; Start 09/25/21 at 05:54; Stop 09/25/21 at 14:57; Status DC Glycopyrrolate (Robinul) 1 mg STK-MED ONCE .ROUTE ; Start 09/25/21 at 07:11; Stop 09/25/21 at 15:01; Status DC Propofol 50 ml @ As Directed STK-MED ONCE IV ; Start 09/25/21 at 08:07; Stop 09/25/21 at 15:02; Status DC Ketamine HCl (Ketamine) 50 mg STK-MED ONCE .ROUTE ; Start 09/25/21 at 08:15; Stop 09/25/21 at 15:02; Status DC Hydromorphone HCl (Dilaudid) 2 mg STK-MED ONCE .ROUTE ; Start 09/25/21 at 10:44; Stop 09/25/21 at 15:03; Status DC Fentanyl Citrate (Fentanyl 2ml Vial) 100 mcg STK-MED ONCE .ROUTE ; Start 09/25/21 at 13:26; Stop 09/25/21 at 15:04; Status DC Morphine Sulfate (Morphine Sulfate) 2 mg STK-MED ONCE .ROUTE ; Start 09/25/21 at 14:04; Stop 09/25/21 at 15:05; Status DC Hydromorphone HCl (Dilaudid) 2 mg STK-MED ONCE .ROUTE ; Start 09/25/21 at 14:54; Stop 09/25/21 at 15:06; Status DC Menthol/Methyl Salicylate ([place] Greaseless Cream) 1 crispin PRN Q30MIN PRN TP MUSCLE PAIN Last administered on 10/02/21at 21:03; Start 09/25/21 at 18:45 Mupirocin (Bactroban) 1 crispin BID NS Last administered on 10/08/21at 08:25; Start 09/26/21 at 09:00 Dexamethasone Sodium Phosphate (Decadron) 10 mg 1X ONCE IVP Last administered on 09/26/21at 07:31; Start 09/26/21 at 07:30; Stop 09/26/21 at 07:31; Status DC Cefazolin Sodium 1 gm/Sodium Chloride 1,000 ml @ 1,000 mls/hr 1X ONCE IRR Last administered on 09/26/21at 11:52; Start 09/26/21 at 10:30; Stop 09/26/21 at 11:29; Status DC Cefazolin Sodium (Ancef) 1 gm STK-MED ONCE IVP ; Start 09/26/21 at 10:05; Stop 09/26/21 at 10:06; Status DC Lidocaine HCl (Lidocaine Pf 2% Vial) 5 ml STK-MED ONCE .ROUTE ; Start 09/26/21 at 10:18; Stop 09/26/21 at 10:18; Status DC Ondansetron HCl (Zofran) 4 mg STK-MED ONCE .ROUTE ; Start 09/26/21 at 10:18; Stop 09/26/21 at 10:18; Status DC Propofol (Diprivan) 200 mg STK-MED ONCE IV ; Start 09/26/21 at 10:18; Stop 09/26/21 at 10:19; Status DC Dexamethasone Sodium Phosphate (Decadron) 4 mg STK-MED ONCE .ROUTE ; Start 09/26/21 at 10:18; Stop 09/26/21 at 10:19; Status DC Sevoflurane (Ultane) 30 ml STK-MED ONCE IH ; Start 09/26/21 at 10:18; Stop 09/26/21 at 10:19; Status DC Fentanyl Citrate (Fentanyl 2ml Vial) 100 mcg STK-MED ONCE .ROUTE ; Start 09/26/21 at 10:19; Stop 09/26/21 at 10:19; Status DC Rocuronium [place] (Zemuron) 50 mg STK-MED ONCE .ROUTE ; Start 09/26/21 at 10:19; Stop 09/26/21 at 10:19; Status DC Insulin Human Lispro (HumaLOG VIAL for OP,RR ONLY) 0-10 units PRN Q1HR PRN SQ PER PROTOCOL Last administered on 09/26/21at 15:11; Start 09/26/21 at 10:30; Stop 09/26/21 at 18:00; Status DC Sugammadex Sodium (Bridion) 200 mg 1X ONCE IVP Last administered on 09/26/21at 10:30; Start 09/26/21 at 10:30; Stop 09/26/21 at 10:31; Status DC Gelatin (Gelfoam Size 100) 1 each STK-MED ONCE .ROUTE Last administered on 09/26/21at 11:52; Start 09/26/21 at 10:30; Stop 09/26/21 at 10:30; Status DC Bupivacaine HCl/ Epinephrine Bitart (Sensorcain-Epi 0.5% Kit) 30 ml STK-MED ONCE .ROUTE ; Start 09/26/21 at 10:30; Stop 09/26/21 at 10:30; Status DC Ketorolac Tromethamine (Toradol Im) 60 mg STK-MED ONCE .ROUTE ; Start 09/26/21 at 10:30; Stop 09/26/21 at 10:30; Status DC Thrombin 20,000 unit STK-MED ONCE TP Last administered on 09/26/21at 11:52; Start 09/26/21 at 10:30; Stop 09/26/21 at 10:31; Status DC Cefazolin Sodium/ Dextrose 50 ml @ As Directed STK-MED ONCE IV ; Start 09/26/21 at 10:32; Stop 09/26/21 at 10:32; Status DC Vancomycin HCl 1 gm/Sodium Chloride 250 ml @ 250 mls/hr PREOP PRN PRN IV PRIOR TO PROCEDURE; Start 09/26/21 at 10:45; Stop 09/26/21 at 14:00; Status DC Cefazolin Sodium/ Dextrose 50 ml @ 100 mls/hr 1X ONCE IV Last administered on 09/26/21at 11:00; Start 09/26/21 at 11:00; Stop 09/26/21 at 11:29; Status DC Dexamethasone Sodium Phosphate (Decadron) 4 mg STK-MED ONCE .ROUTE ; Start 09/26/21 at 11:04; Stop 09/26/21 at 11:04; Status DC Glycopyrrolate (Robinul) 1 mg STK-MED ONCE .ROUTE ; Start 09/26/21 at 11:04; Stop 09/26/21 at 11:04; Status DC Hydromorphone HCl (Dilaudid) 2 mg STK-MED ONCE .ROUTE ; Start 09/26/21 at 11:56; Stop 09/26/21 at 11:56; Status DC Fentanyl Citrate (Fentanyl 2ml Vial) 25 mcg PRN Q5MIN PRN IVP MILD PAIN 1-3; Start 09/26/21 at 14:30; Stop 09/26/21 at 18:15; Status DC Fentanyl Citrate (Fentanyl 2ml Vial) 50 mcg PRN Q5MIN PRN IVP MODERATE PAIN 4- 6; Start 09/26/21 at 14:30; Stop 09/26/21 at 18:15; Status DC Morphine Sulfate (Morphine Sulfate) 1 mg PRN Q10MIN PRN IVP SEVERE PAIN 7-10; Start 09/26/21 at 14:30; Stop 09/26/21 at 18:15; Status DC Ringer's Solution 1,000 ml @ 30 mls/hr Q24H IV Last administered on 09/26/21at 15:18; Start 09/26/21 at 14:30; Stop 09/26/21 at 21:00; Status DC Hydromorphone HCl (Dilaudid) 0.5 mg PRN Q10MIN PRN IVP SEVERE PAIN 7-10, 2nd CHOICE; Start 09/26/21 at 14:30; Stop 09/26/21 at 18:15; Status DC Prochlorperazine Edisylate (Compazine) 5 mg PACU PRN PRN IVP NAUSEA, MRX1; Start 09/26/21 at 14:30; Stop 09/26/21 at 21:00; Status DC Fentanyl Citrate (Fentanyl 2ml Vial) 100 mcg STK-MED ONCE .ROUTE ; Start 09/26/21 at 14:23; Stop 09/26/21 at 14:25; Status DC Fentanyl Citrate (Fentanyl 2ml Vial) 25 mcg PRN Q5MIN PRN IVP MILD PAIN 1-3; Start 09/26/21 at 14:30; Stop 09/27/21 at 14:29; Status UNV Fentanyl Citrate (Fentanyl 2ml Vial) 50 mcg PRN Q5MIN PRN IVP MODERATE PAIN 4- 6; Start 09/26/21 at 14:30; Stop 09/27/21 at 14:29; Status UNV Morphine Sulfate (Morphine Sulfate) 1 mg PRN Q10MIN PRN IVP SEVERE PAIN 7-10; Start 09/26/21 at 14:30; Stop 09/27/21 at 14:29; Status UNV Ringer's Solution 1,000 ml @ 30 mls/hr Q24H IV ; Start 09/26/21 at 14:30; Stop 09/27/21 at 02:29; Status UNV Hydromorphone HCl (Dilaudid) 0.5 mg PRN Q10MIN PRN IVP SEVERE PAIN 7-10, 2nd CHOICE; Start 09/26/21 at 14:30; Stop 09/27/21 at 14:29; Status UNV Prochlorperazine Edisylate (Compazine) 5 mg PACU PRN PRN IVP NAUSEA, MRX1; Start 09/26/21 at 14:30; Stop 09/27/21 at 14:29; Status UNV Dexamethasone Sodium Phosphate (Decadron) 4 mg Q6HRS IVP Last administered on 09/28/21at 05:06; Start 09/26/21 at 18:00; Stop 09/28/21 at 06:00; Status DC Sodium Chloride 1,000 ml @ 100 mls/hr Q10H IV Last administered on 10/05/21at 06:41; Start 09/26/21 at 17:30; Stop 10/05/21 at 13:48; Status DC Cefazolin Sodium (Ancef) 1 gm Q8HRS IVP ; Start 09/27/21 at 06:00; Stop 09/27/21 at 05:47; Status DC Vancomycin HCl 1 gm/Sodium Chloride 250 ml @ 166.667 mls/hr 1X ONCE IV Last administered on 09/27/21at 06:27; Start 09/27/21 at 06:00; Stop 09/27/21 at 07:29; Status DC Gadoterate Meglumine (Clariscan) 19 ml 1X ONCE IVP Last administered on 09/29/21at 10:32; Start 09/29/21 at 08:15; Stop 09/29/21 at 08:17; Status DC Bisacodyl (Dulcolax Supp) 10 mg PRN DAILY PRN PA CONSTIPATION; Start 09/29/21 at 14:15 Lactulose (Lactulose) 20 gm PRN DAILY PRN PO CONSTIPATION, 2nd choice Last administered on 10/01/21at 08:35; Start 09/29/21 at 14:30 Ascorbic Acid (Vitamin C) 500 mg DAILY PO Last administered on 10/08/21at 08:24; Start 10/02/21 at 10:00 Levofloxacin/ Dextrose 100 ml @ 100 mls/hr Q24H IV Last administered on 10/02/21at 12:15; Start 10/02/21 at 12:00; Stop 10/03/21 at 08:57; Status DC Levofloxacin/ Dextrose 50 ml @ 50 mls/hr Q24H IV Last administered on 10/06/21at 15:19; Start 10/03/21 at 12:00; Stop 10/06/21 at 23:00; Status DC Lactobacillus Rhamnosus (Culturelle) 1 cap BID PO Last administered on 10/08/21at 08:24; Start 10/03/21 at 21:00 Lidocaine (Lidoderm) 1 patch QHS TP Last administered on 10/07/21at 20:39; Start 10/04/21 at 22:00 Levofloxacin (Levaquin) 250 mg DAILY06 PO Last administered on 10/08/21at 06:16; Start 10/07/21 at 06:00 Active Scripts Active Dok (Docusate Sodium) 100 Mg Capsule 100 Mg PO PRN BID PRN 30 Days Tylenol (Acetaminophen) 325 Mg Tablet 650 Mg PO PRN Q4HRS PRN 30 Days Valium (Diazepam) 5 Mg Tablet 5 Mg PO TID Atorvastatin Calcium 10 Mg Tablet 10 Mg PO QHS Reported Midodrine Hcl 2.5 Mg Tablet 2.5 Mg PO PRN 1X PRN Aspirin 81 Mg Tab.chew 81 Mg PO DAILY Baclofen 10 Mg Tablet 10 Mg PO BID Lyrica (Pregabalin) 100 Mg Capsule 100 Mg PO BID 30 Days Polyethylene Glycol 3350 2,500 Gm Powder 17 Gm PO DAILY 30 Days Oxycodone HCl 5 Mg Tablet 10 Mg PO PRN Q6HRS PRN Micatin (Miconazole Nitrate) 14 Gm Cream..g. 1 [place] TP TID Tradjenta (Linagliptin) 5 Mg Tablet 5 Mg PO DAILY Lidocaine PATCH (Lidocaine) 1 Each Adh..patch 1 Each TP DAILY REMOVE AFTER 12 HOURS Levemir (Insulin Detemir) 100 Unit/1 Ml Vial 4 Unit SQ HS Hydroxyzine Hcl 25 Mg Tablet 25 Mg PO PRN Q6HRS PRN Fluticasone Propionate Nasal [place] (Fluticasone Propionate) 16 Gm [place].susp 2 [place] NS DAILY Diclofenac Sodium 100 Gm Gel..gram. 100 Gm TP PRN TID PRN Losartan Potassium 100 Mg Tablet 25 Tab PO DAILY08 Vitals/I & O Vital Sign - Last 24 Hours 10/07/21 10/07/21 10/07/21 10/07/21 12:00 16:00 17:39 18:09 Temp 98.4 97.8 98.4 97.8 Pulse 85 78 Resp 18 19 B/P (MAP) 110/58 (75) 106/60 (75) Pulse Ox 97 97 97 97 O2 Delivery Room Air Room Air Room Air Room Air 10/07/21 10/07/21 10/08/21 10/08/21 20:28 20:30 00:00 04:30 Temp 98.0 98.1 98.0 98.0 98.1 98.0 Pulse 75 66 73 Resp 18 18 18 B/P (MAP) 126/62 (83) 116/49 (71) 128/65 (86) Pulse Ox 98 95 95 O2 Delivery Room Air Room Air Room Air Room Air 10/08/21 10/08/21 10/08/21 10/08/21 07:00 08:00 08:00 08:24 Temp 97.9 97.9 Pulse 71 71 Resp 19 19 B/P (MAP) 117/49 (71) 117/40 Pulse Ox 98 98 O2 Delivery Room Air Room Air Room Air Intake and Output 10/07/21 10/07/21 10/08/21 15:00 23:00 07:00 Intake Total 1050 ml 550 ml 250 ml Output Total 376 ml 501 ml 1000 ml Balance 674 ml 49 ml -750 ml Justifications for Admission Other Justification uncontrolled diabetes TERRY JURADO MD Oct 08, 2021 11:22
[2021-10-08 12:00] VITALS: BP 129/69
--- NOTE | 2021-10-08 12:51 | PDOC ---
[facility] PROGRESS NOTE Date of Service DOS: DATE: 10/08/21 TIME: 12:49 Chief Complaint Chief Complaint Postoperative posterior cervical laminectomy. Fall in July with cervical fracture (at that time he had a anterior cervical laminectomy) Status post cervical hematoma had to return to the OR History of the following; Cervical laminectomy as per above, diabetes, hypertension, hyperlipidemia, arthritis, GERD, left knee arthroplasty and TIA and also IVC filter and prior ACDF at C4 through C5 and C5 through C6 in 07/2021. History of Present Illness History of Present Illness 10/08/2019 Patient seen and examined He is moving his toes more each day Discussed with RN Chart reviewed 10/07/2021 Patient seen and examined in the ICU (he is actually in overfull patient) He is working with his nurse to try to use his nurse button and remote control Started to move his toes a little bit Doing much better 10/06/2021 Patient seen and examined in the ICU I discussed the case with his sister again I also discussed the case with case management [facility] may consider taking him after all now that he is improved over the past 3 days 10/05/2021 Patient seen and examined in the ICU His nurses are starting to get ready to clean him up His sister is present Discussed with RN Discussed with case management we [facility] still [facility] transfer if it can be arranged 10/04/2021 Patient seen and examined again in the ICU He remains very weak cannot move his legs was able to move his hands His sister is present I called case management they are checking into possibly if he could go to rehab [facility] Chart reviewed 10/03/2021 Patient seen and examined in the ICU Chart reviewed Discussed with RN Called case management We are hoping to get the patient transferred to [facility] if possible (they are evaluating his admission criteria to rehab) 10/02/2021 Patient seen and examined in the ICU He is still unable to move his legs He is able to move his hands and arms slightly but is very weak at bedside Chart reviewed Discussed with RN I called case management to see if maybe he could go to [facility] sometime soon 10/01 Patient evaluated examined at bedside. Continues to improve. Continue rehab. Plan discussed with bedside RN. 09/30 Patient evaluated examined at bedside. Clinically about the same from yesterday. Continue rehab modalities. Labs stable. Plan discussed with bedside RN. 09/29 Patient evaluated at bedside. Underwent MRI this morning. Symptoms very similar to yesterday but he feels like he is regaining some function. Pain controlled. PT OT. Hemoglovin stable. 09/28 Evaluate examined at bedside. Resting in bed had no complaints to me. Said pain is quite improved. Did okay with transfusion yesterday. Continue current treatments. PT/OT. Discussed with bedside RNStar Diane 09/27 Patient evaluated examined at bedside. Was resting in bed easily awoken able to answer some questions. Some movement in his upper extremities but very limited in lower. Transfuse 1 unit today. Plan discussed with RN. Vitals/I&O Vitals/I&O: Vital Signs Date Time Temp Pulse Resp B/P (MAP) Pulse Ox O2 Delivery O2 Flow Rate FiO2 10/08/21 12:00 98.2 72 18 129/69 (89) 97 Room Air 98.2 I & O 10/07/21 10/07/21 10/08/21 15:00 23:00 07:00 Intake Total 1050 ml 550 ml 250 ml Output Total 376 ml 501 ml 1000 ml Balance 674 ml 49 ml -750 ml Physical Exam General: Alert, Oriented X3, Cooperative Heart: Regular rate Lungs: Clear Abdomen: Normal bowel sounds, Soft, No tenderness Extremities: No edema, Normal pulses Skin: Other (dressing dry and intact) Assessment and Plan Assessmemt and Plan Postoperative posterior cervical laminectomy. Fall in July with cervical fracture (at that time he had a anterior cervical laminectomy) Status post cervical hematoma had to return to the OR New UTI History of the following; Cervical laminectomy as per above, diabetes, hypertension, hyperlipidemia, arthritis, GERD, left knee arthroplasty and TIA and also IVC filter and prior ACDF at C4 through C5 and C5 through C6 in 07/2021. Plan We are hoping he can go to [facility] after all as he is improved over the past 5 days For now continue the following; PT OT (he is starting to move a little more each day) Wound long-term meds DVT prophylaxis Added Levaquin for UTI As needed Valium Continue Lyrica Full code [facility] reevaluation as he has improved over the past 5 days and is moving a little more each day Hope to transfer to [facility] soon Comment Review of Relevant I have reviewed the following items michelle (where applicable) has been applied. Justifications for Admission Other Justification uncontrolled diabetes MISSY BATES III DO Oct 08, 2021 12:51
[2021-10-08 17:00] VITALS: BP 150/79
--- NOTE | 2021-10-08 19:03 | PDOC ---
PROGRESS NOTES Date of Service DATE: 10/08/21 TIME: 19:02 Subjective Subjective Patient seen and examined at 1400 POD #12 S/P Evacuation of epidural hematoma, s/p cervical laminectomy and fusion 09/25/21 pain well controlled Objective Objective Vital Signs Date Time Temp Pulse Resp B/P (MAP) Pulse Ox O2 Delivery O2 Flow Rate FiO2 10/08/21 17:44 18 98 Room Air 10/08/21 17:00 97.9 76 150/79 (102) 97.9 10/06/21 15:50 2.0 Intake and Output 10/08/21 07:00 Intake Total 1850 ml Output Total 1877 ml Balance -27 ml Intake Oral 1850 ml Output Urine Total 1875 ml Stool Total 2 ml Physical Exam General: Alert, Oriented X3, Cooperative Neuro: Other (sensation intact in upper and lower extremities, moves upper extremities with 3/5 strength, hand grasps slightly stronger- finger extension improved, moves right great toe)) Skin: Other (dressing dry, intact) Plan Plan of Care continue current plan SCDs favio out next week arrangements being made for rehab placement Comment Review of Relevant I have reviewed the following items michelle (where applicable) has been applied. Labs Microbiology 10/01/21 Urine Culture - Final, Complete Escherichia Coli Escherichia Coli#2 Medications Current Medications Fentanyl Citrate (Fentanyl 2ml Vial) 25 mcg PRN Q5MIN PRN IVP MILD PAIN 1-3; Start 09/25/21 at 06:00; Stop 09/25/21 at 20:00; Status DC Fentanyl Citrate (Fentanyl 2ml Vial) 50 mcg PRN Q5MIN PRN IVP MODERATE PAIN 4-6 Last administered on 09/25/21at 13:48; Start 09/25/21 at 06:00; Stop 09/25/21 at 20:00; Status DC Morphine Sulfate (Morphine Sulfate) 1 mg PRN Q10MIN PRN IVP SEVERE PAIN 7-10 Last administered on 09/25/21at 14:21; Start 09/25/21 at 06:00; Stop 09/25/21 at 20:00; Status DC Ringer's Solution 1,000 ml @ 30 mls/hr Q24H IV Last administered on 09/25/21at 12:54; Start 09/25/21 at 06:00; Stop 09/25/21 at 17:59; Status DC Hydromorphone HCl (Dilaudid) 0.5 mg PRN Q10MIN PRN IVP SEVERE PAIN 7-10, 2nd CHOICE Last administered on 09/25/21at 16:53; Start 09/25/21 at 06:00; Stop 09/25/21 at 20:00; Status DC Prochlorperazine Edisylate (Compazine) 5 mg PACU PRN PRN IVP NAUSEA, MRX1; Start 09/25/21 at 06:00; Stop 09/25/21 at 20:00; Status DC Cefazolin Sodium 1 gm/Sodium Chloride 1,000 ml @ 1,000 mls/hr 1X ONCE IRR Last administered on 09/25/21at 10:14; Start 09/25/21 at 06:00; Stop 09/25/21 at 06:59; Status DC Cefazolin Sodium/ Dextrose 50 ml @ 100 mls/hr 1X PREOP PRN IV PRIOR TO PROCEDURE Last administered on 09/25/21at 09:30; Start 09/25/21 at 06:00; Stop 09/25/21 at 13:39; Status DC Insulin Human Lispro (HumaLOG VIAL for OP,RR ONLY) 0-10 units PRN Q1HR PRN SQ PER PROTOCOL Last administered on 09/25/21at 17:01; Start 09/25/21 at 07:00; Stop 09/25/21 at 18:00; Status DC Bupivacaine HCl/ Epinephrine Bitart (Sensorcain-Epi 0.5% Kit) 30 ml STK-MED ONCE INJ Last administered on 09/25/21at 10:14; Start 09/25/21 at 10:14; Stop 09/25/21 at 10:30; Status DC Ketorolac Tromethamine (Toradol Im) 60 mg STK-MED ONCE INJ Last administered on 09/25/21at 10:14; Start 09/25/21 at 10:14; Stop 09/25/21 at 10:30; Status DC Thrombin 20,000 unit STK-MED ONCE TP Last administered on 09/25/21at 10:14; Start 09/25/21 at 10:14; Stop 09/25/21 at 10:30; Status DC Gelatin (Gelfoam Size 100) 1 each STK-MED ONCE TP Last administered on 09/25/21at 10:14; Start 09/25/21 at 10:14; Stop 09/25/21 at 10:30; Status DC Acetaminophen (Tylenol) 650 mg PRN Q4HRS PRN PO TEMP OVER 100.4F OR MILD PAIN Last administered on 10/02/21 14:14; Start 09/25/21 at 12:30 Aspirin (Aspirin Chewable) 81 mg DAILY PO Last administered on 09/26/21 08:30; Start 09/26/21 at 09:00; Stop 09/28/21 at 17:19; Status DC Atorvastatin Calcium (Lipitor) 10 mg QHS PO Last administered on 10/07/21 20:36; Start 09/25/21 at 21:00 Baclofen (Lioresal) 10 mg BID PO Last administered on 10/08/21 08:24; Start 09/25/21 at 21:00 Diazepam (Valium) 5 mg TID PO Last administered on 10/08/21 12:56; Start 09/25/21 at 14:00 Docusate Sodium (Colace) 100 mg PRN BID PRN PO HARD STOOLS Last administered on 10/01/21 20:28; Start 09/25/21 at 12:30 Fluticasone Propionate (Flonase) 2 spray DAILY NS Last administered on 10/08/21 08:25; Start 09/26/21 at 09:00 Hydroxyzine HCl (Atarax) 25 mg PRN Q6HRS PRN PO itching Last administered on 10/07/21 22:58; Start 09/25/21 at 12:30 Lidocaine (Lidoderm) 1 patch QHS TP Last administered on 10/03/21 23:31; Start 09/25/21 at 20:00; Stop 10/05/21 at 01:01; Status DC Linagliptin (Tradjenta) 5 mg DAILY PO Last administered on 10/08/21 08:24; S tart 09/25/21 at 13:00 Miconazole Nitrate (Monistat-Derm) 1 crispin TID TP Last administered on 10/04/21 20:08; Start 09/25/21 at 21:00; Stop 10/05/21 at 13:23; Status DC Midodrine (Proamatine) 2.5 mg PRN 1X PRN PO hypotension Last administered on 09/27/21at 08:56; Start 09/25/21 at 12:30 Oxycodone HCl (Roxicodone) 10 mg PRN Q6HRS PRN PO MODERATE-SEVERE PAIN Last administered on 10/08/21at 17:14; Start 09/25/21 at 12:30 Diclofenac Sodium (Voltaren) 1 crispin PRN TID PRN TP PAIN CONTROL; Start 09/25/21 at 13:15; Stop 09/25/21 at 18:37; Status DC Insulin Glargine (Lantus Syringe) 4 unit QHS SQ Last administered on 10/07/21at 20:41; Start 09/25/21 at 21:00 Losartan Potassium (Cozaar) 25 mg DAILY08 PO Last administered on 10/08/21at 08:24; Start 09/26/21 at 08:00 Polyethylene Glycol (miraLAX PACKET) 17 gm DAILY PO Last administered on 10/03/21at 08:02; Start 09/25/21 at 14:00 Pregabalin (Lyrica) 100 mg BID PO Last administered on 10/08/21at 08:25; Start 09/25/21 at 21:00 Acetaminophen (Tylenol) 650 mg PRN Q6HRS PRN PO MILD PAIN / TEMP > 100.3'F; Start 09/25/21 at 12:30; Status Cancel Al Hydroxide/Mg Hydroxide (Mylanta Plus Xs) 30 ml PRN Q3HRS PRN PO HEARTBURN / GAS; Start 09/25/21 at 12:30 Calcium Carbonate/ Glycine (Tums) 500 mg PRN Q3HRS PRN PO INDIGESTION; Start 09/25/21 at 12:30 Diphenhydramine HCl (Benadryl) 25 mg PRN Q6HRS PRN PO ITCHING; Start 09/25/21 at 12:30 Naloxone HCl (Narcan) 0.1 mg PRN Q2MIN PRN IV SEE COMMENTS; Start 09/25/21 at 12:30 Sodium Chloride (Normal Saline Flush) 3 ml QSHIFT PRN IV AFTER MEDS AND BLOOD DRAWS; Start 09/25/21 at 12:30 Potassium Chloride/Sodium Chloride 1,000 ml @ 75 mls/hr [id number] IV Last administered on 09/26/21at 07:00; Start 09/25/21 at 12:30; Stop 09/26/21 at 17:33; Status DC Magnesium Hydroxide (Milk Of Magnesia) 2,400 mg PRN Q12HR PRN PO CONSTIPATION; Start 09/25/21 at 12:30 Cefazolin Sodium (Ancef) 1 gm Q8H IVP Last administered on 09/26/21at 04:14; Start 09/25/21 at 18:00; Stop 09/26/21 at 10:01; Status DC Fentanyl Citrate (Fentanyl 2ml Vial) 50 mcg PRN Q2HR PRN IVP MODERATE TO SEVERE PAIN Last administered on 10/05/21at 22:46; Start 09/25/21 at 12:30 Dextrose (Dextrose 50%-Water Syringe) 12.5 gm PRN Q15MIN PRN IV SEE COMMENTS; Start 09/25/21 at 12:30 Dextrose (Iv Dextrose 5%) 250 ml PRN Q15MIN PRN IV SEE COMMENTS; Start 09/25/21 at 12:30 Gelatin (Gelfoam Size 100) 1 each STK-MED ONCE .ROUTE ; Start 09/25/21 at 06:37; Stop 09/25/21 at 14:55; Status DC Bupivacaine HCl/ Epinephrine Bitart (Sensorcain-Epi 0.5% Kit) 30 ml STK-MED ONCE .ROUTE ; Start 09/25/21 at 06:37; Stop 09/25/21 at 14:55; Status DC Ketorolac Tromethamine (Toradol Im) 60 mg STK-MED ONCE .ROUTE ; Start 09/25/21 at 06:37; Stop 09/25/21 at 14:55; Status DC Thrombin 20,000 unit STK-MED ONCE TP ; Start 09/25/21 at 06:38; Stop 09/25/21 at 14:55; Status DC Propofol (Diprivan) 200 mg STK-MED ONCE IV ; Start 09/25/21 at 05:54; Stop 09/25/21 at 14:57; Status DC Lidocaine HCl (Lidocaine Pf 2% Vial) 5 ml STK-MED ONCE .ROUTE ; Start 09/25/21 at 05:54; Stop 09/25/21 at 14:57; Status DC Ondansetron HCl (Zofran) 4 mg STK-MED ONCE .ROUTE ; Start 09/25/21 at 05:54; Stop 09/25/21 at 14:57; Status DC Phenylephrine HCl (Ramone-Synephrine Inj) 10 mg STK-MED ONCE .ROUTE ; Start 09/25/21 at 05:54; Stop 09/25/21 at 14:57; Status DC Propofol 50 ml @ As Directed STK-MED ONCE IV ; Start 09/25/21 at 05:54; Stop 09/25/21 at 14:57; Status DC Dexamethasone Sodium Phosphate (Decadron) 4 mg STK-MED ONCE .ROUTE ; Start 09/25/21 at 05:54; Stop 09/25/21 at 14:57; Status DC Fentanyl Citrate (Fentanyl 2ml Vial) 100 mcg STK-MED ONCE .ROUTE ; Start 09/25/21 at 05:54; Stop 09/25/21 at 14:57; Status DC Succinylcholine Chloride (Anectine) 200 mg STK-MED ONCE .ROUTE ; Start 09/25/21 at 05:54; Stop 09/25/21 at 14:57; Status DC Remifentanil HCl (Ultiva) 1 mg STK-MED ONCE IV ; Start 09/25/21 at 05:54; Stop 09/25/21 at 14:57; Status DC Glycopyrrolate (Robinul) 1 mg STK-MED ONCE .ROUTE ; Start 09/25/21 at 07:11; Stop 09/25/21 at 15:01; Status DC Propofol 50 ml @ As Directed STK-MED ONCE IV ; Start 09/25/21 at 08:07; Stop 09/25/21 at 15:02; Status DC Ketamine HCl (Ketamine) 50 mg STK-MED ONCE .ROUTE ; Start 09/25/21 at 08:15; Stop 09/25/21 at 15:02; Status DC Hydromorphone HCl (Dilaudid) 2 mg STK-MED ONCE .ROUTE ; Start 09/25/21 at 10:44; Stop 09/25/21 at 15:03; Status DC Fentanyl Citrate (Fentanyl 2ml Vial) 100 mcg STK-MED ONCE .ROUTE ; Start 09/25/21 at 13:26; Stop 09/25/21 at 15:04; Status DC Morphine Sulfate (Morphine Sulfate) 2 mg STK-MED ONCE .ROUTE ; Start 09/25/21 at 14:04; Stop 09/25/21 at 15:05; Status DC Hydromorphone HCl (Dilaudid) 2 mg STK-MED ONCE .ROUTE ; Start 09/25/21 at 14:54; Stop 09/25/21 at 15:06; Status DC Menthol/Methyl Salicylate (Bengay Greaseless Cream) 1 crispin PRN Q30MIN PRN TP MUSCLE PAIN Last administered on 10/02/21at 21:03; Start 09/25/21 at 18:45 Mupirocin (Bactroban) 1 crispin BID NS Last administered on 10/08/21at 08:25; Start 09/26/21 at 09:00 Dexamethasone Sodium Phosphate (Decadron) 10 mg 1X ONCE IVP Last administered on 09/26/21at 07:31; Start 09/26/21 at 07:30; Stop 09/26/21 at 07:31; Status DC Cefazolin Sodium 1 gm/Sodium Chloride 1,000 ml @ 1,000 mls/hr 1X ONCE IRR Last administered on 09/26/21at 11:52; Start 09/26/21 at 10:30; Stop 09/26/21 at 11:29; Status DC Cefazolin Sodium (Ancef) 1 gm STK-MED ONCE IVP ; Start 09/26/21 at 10:05; Stop 09/26/21 at 10:06; Status DC Lidocaine HCl (Lidocaine Pf 2% Vial) 5 ml STK-MED ONCE .ROUTE ; Start 09/26/21 at 10:18; Stop 09/26/21 at 10:18; Status DC Ondansetron HCl (Zofran) 4 mg STK-MED ONCE .ROUTE ; Start 09/26/21 at 10:18; Stop 09/26/21 at 10:18; Status DC Propofol (Diprivan) 200 mg STK-MED ONCE IV ; Start 09/26/21 at 10:18; Stop 09/26/21 at 10:19; Status DC Dexamethasone Sodium Phosphate (Decadron) 4 mg STK-MED ONCE .ROUTE ; Start 09/26/21 at 10:18; Stop 09/26/21 at 10:19; Status DC Sevoflurane (Ultane) 30 ml STK-MED ONCE IH ; Start 09/26/21 at 10:18; Stop 09/26/21 at 10:19; Status DC Fentanyl Citrate (Fentanyl 2ml Vial) 100 mcg STK-MED ONCE .ROUTE ; Start 09/26/21 at 10:19; Stop 09/26/21 at 10:19; Status DC Rocuronium [place] (Zemuron) 50 mg STK-MED ONCE .ROUTE ; Start 09/26/21 at 10:19; Stop 09/26/21 at 10:19; Status DC Insulin Human Lispro (HumaLOG VIAL for OP,RR ONLY) 0-10 units PRN Q1HR PRN SQ PER PROTOCOL Last administered on 09/26/21at 15:11; Start 09/26/21 at 10:30; Stop 09/26/21 at 18:00; Status DC Sugammadex Sodium (Bridion) 200 mg 1X ONCE IVP Last administered on 09/26/21at 10:30; Start 09/26/21 at 10:30; Stop 09/26/21 at 10:31; Status DC Gelatin (Gelfoam Size 100) 1 each STK-MED ONCE .ROUTE Last administered on 09/26/21at 11:52; Start 09/26/21 at 10:30; Stop 09/26/21 at 10:30; Status DC Bupivacaine HCl/ Epinephrine Bitart (Sensorcain-Epi 0.5% Kit) 30 ml STK-MED ONCE .ROUTE ; Start 09/26/21 at 10:30; Stop 09/26/21 at 10:30; Status DC Ketorolac Tromethamine (Toradol Im) 60 mg STK-MED ONCE .ROUTE ; Start 09/26/21 at 10:30; Stop 09/26/21 at 10:30; Status DC Thrombin 20,000 unit STK-MED ONCE TP Last administered on 09/26/21at 11:52; Start 09/26/21 at 10:30; Stop 09/26/21 at 10:31; Status DC Cefazolin Sodium/ Dextrose 50 ml @ As Directed STK-MED ONCE IV ; Start 09/26/21 at 10:32; Stop 09/26/21 at 10:32; Status DC Vancomycin HCl 1 gm/Sodium Chloride 250 ml @ 250 mls/hr PREOP PRN PRN IV PRIOR TO PROCEDURE; Start 09/26/21 at 10:45; Stop 09/26/21 at 14:00; Status DC Cefazolin Sodium/ Dextrose 50 ml @ 100 mls/hr 1X ONCE IV Last administered on 09/26/21at 11:00; Start 09/26/21 at 11:00; Stop 09/26/21 at 11:29; Status DC Dexamethasone Sodium Phosphate (Decadron) 4 mg STK-MED ONCE .ROUTE ; Start 09/26/21 at 11:04; Stop 09/26/21 at 11:04; Status DC Glycopyrrolate (Robinul) 1 mg STK-MED ONCE .ROUTE ; Start 09/26/21 at 11:04; Stop 09/26/21 at 11:04; Status DC Hydromorphone HCl (Dilaudid) 2 mg STK-MED ONCE .ROUTE ; Start 09/26/21 at 11:56; Stop 09/26/21 at 11:56; Status DC Fentanyl Citrate (Fentanyl 2ml Vial) 25 mcg PRN Q5MIN PRN IVP MILD PAIN 1-3; Start 09/26/21 at 14:30; Stop 09/26/21 at 18:15; Status DC Fentanyl Citrate (Fentanyl 2ml Vial) 50 mcg PRN Q5MIN PRN IVP MODERATE PAIN 4- 6; Start 09/26/21 at 14:30; Stop 09/26/21 at 18:15; Status DC Morphine Sulfate (Morphine Sulfate) 1 mg PRN Q10MIN PRN IVP SEVERE PAIN 7-10; Start 09/26/21 at 14:30; Stop 09/26/21 at 18:15; Status DC Ringer's Solution 1,000 ml @ 30 mls/hr Q24H IV Last administered on 09/26/21at 15:18; Start 09/26/21 at 14:30; Stop 09/26/21 at 21:00; Status DC Hydromorphone HCl (Dilaudid) 0.5 mg PRN Q10MIN PRN IVP SEVERE PAIN 7-10, 2nd CHOICE; Start 09/26/21 at 14:30; Stop 09/26/21 at 18:15; Status DC Prochlorperazine Edisylate (Compazine) 5 mg PACU PRN PRN IVP NAUSEA, MRX1; Start 09/26/21 at 14:30; Stop 09/26/21 at 21:00; Status DC Fentanyl Citrate (Fentanyl 2ml Vial) 100 mcg STK-MED ONCE .ROUTE ; Start 09/26/21 at 14:23; Stop 09/26/21 at 14:25; Status DC Fentanyl Citrate (Fentanyl 2ml Vial) 25 mcg PRN Q5MIN PRN IVP MILD PAIN 1-3; Start 09/26/21 at 14:30; Stop 09/27/21 at 14:29; Status UNV Fentanyl Citrate (Fentanyl 2ml Vial) 50 mcg PRN Q5MIN PRN IVP MODERATE PAIN 4- 6; Start 09/26/21 at 14:30; Stop 09/27/21 at 14:29; Status UNV Morphine Sulfate (Morphine Sulfate) 1 mg PRN Q10MIN PRN IVP SEVERE PAIN 7-10; Start 09/26/21 at 14:30; Stop 09/27/21 at 14:29; Status UNV Ringer's Solution 1,000 ml @ 30 mls/hr Q24H IV ; Start 09/26/21 at 14:30; Stop 09/27/21 at 02:29; Status UNV Hydromorphone HCl (Dilaudid) 0.5 mg PRN Q10MIN PRN IVP SEVERE PAIN 7-10, 2nd CHOICE; Start 09/26/21 at 14:30; Stop 09/27/21 at 14:29; Status UNV Prochlorperazine Edisylate (Compazine) 5 mg PACU PRN PRN IVP NAUSEA, MRX1; Start 09/26/21 at 14:30; Stop 09/27/21 at 14:29; Status UNV Dexamethasone Sodium Phosphate (Decadron) 4 mg Q6HRS IVP Last administered on 09/28/21at 05:06; Start 09/26/21 at 18:00; Stop 09/28/21 at 06:00; Status DC Sodium Chloride 1,000 ml @ 100 mls/hr Q10H IV Last administered on 10/05/21at 06:41; Start 09/26/21 at 17:30; Stop 10/05/21 at 13:48; Status DC Cefazolin Sodium (Ancef) 1 gm Q8HRS IVP ; Start 09/27/21 at 06:00; Stop 09/27/21 at 05:47; Status DC Vancomycin HCl 1 gm/Sodium Chloride 250 ml @ 166.667 mls/hr 1X ONCE IV Last administered on 09/27/21at 06:27; Start 09/27/21 at 06:00; Stop 09/27/21 at 07:29; Status DC Gadoterate Meglumine (Clariscan) 19 ml 1X ONCE IVP Last administered on 09/29/21at 10:32; Start 09/29/21 at 08:15; Stop 09/29/21 at 08:17; Status DC Bisacodyl (Dulcolax Supp) 10 mg PRN DAILY PRN VT CONSTIPATION; Start 09/29/21 at 14:15 Lactulose (Lactulose) 20 gm PRN DAILY PRN PO CONSTIPATION, 2nd choice Last administered on 10/01/21at 08:35; Start 09/29/21 at 14:30 Ascorbic Acid (Vitamin C) 500 mg DAILY PO Last administered on 10/08/21at 08:24; Start 10/02/21 at 10:00 Levofloxacin/ Dextrose 100 ml @ 100 mls/hr Q24H IV Last administered on 10/02/21at 12:15; Start 10/02/21 at 12:00; Stop 10/03/21 at 08:57; Status DC Levofloxacin/ Dextrose 50 ml @ 50 mls/hr Q24H IV Last administered on 10/06/21at 15:19; Start 10/03/21 at 12:00; Stop 10/06/21 at 23:00; Status DC Lactobacillus Rhamnosus (Culturelle) 1 cap BID PO Last administered on 10/08/21at 08:24; Start 10/03/21 at 21:00 Lidocaine (Lidoderm) 1 patch QHS TP Last administered on 10/07/21at 20:39; Start 10/04/21 at 22:00 Levofloxacin (Levaquin) 250 mg DAILY06 PO Last administered on 10/08/21at 06:16; Start 10/07/21 at 06:00 Active Scripts Active Dok (Docusate Sodium) 100 Mg Capsule 100 Mg PO PRN BID PRN 30 Days Tylenol (Acetaminophen) 325 Mg Tablet 650 Mg PO PRN Q4HRS PRN 30 Days Valium (Diazepam) 5 Mg Tablet 5 Mg PO TID Atorvastatin Calcium 10 Mg Tablet 10 Mg PO QHS Reported Midodrine Hcl 2.5 Mg Tablet 2.5 Mg PO PRN 1X PRN Aspirin 81 Mg Tab.chew 81 Mg PO DAILY Baclofen 10 Mg Tablet 10 Mg PO BID Lyrica (Pregabalin) 100 Mg Capsule 100 Mg PO BID 30 Days Polyethylene Glycol 3350 2,500 Gm Powder 17 Gm PO DAILY 30 Days Oxycodone HCl 5 Mg Tablet 10 Mg PO PRN Q6HRS PRN Micatin (Miconazole Nitrate) 14 Gm Cream..g. 1 Crispin TP TID Tradjenta (Linagliptin) 5 Mg Tablet 5 Mg PO DAILY Lidocaine PATCH (Lidocaine) 1 Each Adh..patch 1 Each TP DAILY REMOVE AFTER 12 HOURS Levemir (Insulin Detemir) 100 Unit/1 Ml Vial 4 Unit SQ HS Hydroxyzine Hcl 25 Mg Tablet 25 Mg PO PRN Q6HRS PRN Fluticasone Propionate Nasal [place] (Fluticasone Propionate) 16 Gm [place].susp 2 [place] NS DAILY Diclofenac Sodium 100 Gm Gel..gram. 100 Gm TP PRN TID PRN Losartan Potassium 100 Mg Tablet 25 Tab PO DAILY08 Vitals/I & O Vital Sign - Last 24 Hours 10/07/21 10/07/21 10/08/21 10/08/21 20:28 20:30 00:00 04:30 Temp 98.0 98.1 98.0 98.0 98.1 98.0 Pulse 75 66 73 Resp 18 18 18 B/P (MAP) 126/62 (83) 116/49 (71) 128/65 (86) Pulse Ox 98 95 95 O2 Delivery Room Air Room Air Room Air Room Air 10/08/21 10/08/21 10/08/21 10/08/21 07:00 08:00 08:00 08:24 Temp 97.9 97.9 Pulse 71 71 Resp 19 19 B/P (MAP) 117/49 (71) 117/40 Pulse Ox 98 98 O2 Delivery Room Air Room Air Room Air 10/08/21 10/08/21 10/08/21 10/08/21 12:00 17:00 17:14 17:44 Temp 98.2 97.9 98.2 97.9 Pulse 72 76 Resp 18 17 18 18 B/P (MAP) 129/69 (89) 150/79 (102) Pulse Ox 97 98 98 98 O2 Delivery Room Air Room Air Room Air Room Air Intake and Output 10/07/21 10/07/21 10/08/21 15:00 23:00 07:00 Intake Total 1050 ml 550 ml 250 ml Output Total 376 ml 501 ml 1000 ml Balance 674 ml 49 ml -750 ml Justifications for Admission Other Justification uncontrolled diabetes KELLEN BRUNO MD Oct 08, 2021 19:02
[2021-10-08 20:00] VITALS: BP 136/72
[2021-10-08] MEDS: INSULIN GLARGINE SYRINGE. SQ SCH (21:40)
[2021-10-08] MEDS: ATORVASTATIN CALCIUM 10 MG TABLET. PO SCH (21:41)
[2021-10-08] MEDS: LIDOCAINE (700MG/PATCH) PATCH. TP SCH (21:53)
[2021-10-08] MEDS: hydrOXYzine 25 MG TABLET PO PRN (21:54)
[2021-10-09] VITALS: BP 132/74
[2021-10-09 04:00] VITALS: BP 106/72
[2021-10-09] MEDS: oxyCODONE IR 5 MG TABLET PO PRN ×3 (06:06→21:36)
[2021-10-09 07:29] VITALS: BP 113/63
[2021-10-09] MEDS: ASCORBIC ACID 500 MG TABLET PO SCH (08:33)
[2021-10-09] MEDS: diazePAM 5 MG TABLET PO SCH ×4 (08:33→20:58)
[2021-10-09] MEDS: BACLOFEN 10 MG TABLET. PO SCH ×2 (08:33→20:58)
[2021-10-09] MEDS: POLYETHYLENE GLYCOL 3350 17 GM PACKET. PO SCH (08:33)
[2021-10-09] MEDS: LINAGLIPTIN 5 MG TABLET PO SCH (08:33)
[2021-10-09] MEDS: LACTOBACILLUS RHAMNOSUS GG 1 CAPSULE. PO SCH ×2 (08:33→20:59)
[2021-10-09] MEDS: MUPIROCIN 2 % OINTMENT 22GM TUBE. NS SCH ×3 (08:34→20:59)
[2021-10-09] MEDS: LOSARTAN POTASSIUM 25 MG TABLET. PO SCH (08:34)
[2021-10-09] MEDS: FLUTICASONE 50MCG/NASAL SPRAY 16GM BOTTLE. NS SCH (08:34)
[2021-10-09] MEDS: PREGABALIN 50 MG CAPSULE PO SCH ×2 (08:36→20:58)
--- NOTE | 2021-10-09 11:32 | PDOC ---
[employer] PROGRESS NOTE Date of Service DOS: DATE: 10/09/21 TIME: 11:31 Chief Complaint Chief Complaint Postoperative posterior cervical laminectomy. Fall in July with cervical fracture (at that time he had a anterior cervical laminectomy) Status post cervical hematoma had to return to the OR History of the following; Cervical laminectomy as per above, diabetes, hypertension, hyperlipidemia, arthritis, GERD, left knee arthroplasty and TIA and also IVC filter and prior ACDF at C4 through C5 and C5 through C6 in 07/2021. History of Present Illness History of Present Illness 10/09/2021 Patient seen and examined Discussed with RN Chart reviewed Discussed with case management His sister is here as well discussed with her Plan is to get the patient to [facility] if they accept him 10/08/2019 Patient seen and examined He is moving his toes more each day Discussed with RN Chart reviewed 10/07/2021 Patient seen and examined in the ICU (he is actually in overfull patient) He is working with his nurse to try to use his nurse button and remote control Started to move his toes a little bit Doing much better 10/06/2021 Patient seen and examined in the ICU I discussed the case with his sister again I also discussed the case with case management [facility] rehab may consider taking him after all now that he is improved over the past 3 days 10/05/2021 Patient seen and examined in the ICU His nurses are starting to get ready to clean him up His sister is present Discussed with RN Discussed with case management [facility] if it can be arranged 10/04/2021 Patient seen and examined again in the ICU He remains very weak cannot move his legs was able to move his hands His sister is present I called case management they are checking into possibly if he could go to rehab [facility] Chart reviewed 10/03/2021 Patient seen and examined in the ICU Chart reviewed Discussed with RN Called case management We are hoping to get the patient transferred to [facility] rehab if possible (they are evaluating his admission criteria to rehab) 10/02/2021 Patient seen and examined in the ICU He is still unable to move his legs He is able to move his hands and arms slightly but is very weak at bedside Chart reviewed Discussed with RN I called case management to see if maybe he could go to [facility] rehab sometime soon 10/01 Patient evaluated examined at bedside. Continues to improve. Continue rehab. Plan discussed with bedside RN. 09/30 Patient evaluated examined at bedside. Clinically about the same from yesterday. Continue rehab modalities. Labs stable. Plan discussed with bedside RN. 09/29 Patient evaluated at bedside. Underwent MRI this morning. Symptoms very similar to yesterday but he feels like he is regaining some function. Pain controlled. PT OT. Hemoglovin stable. 09/28 Evaluate examined at bedside. Resting in bed had no complaints to me. Said pain is quite improved. Did okay with transfusion yesterday. Continue current treatments. PT/OT. Discussed with bedside RN. Roxi 09/27 Patient evaluated examined at bedside. Was resting in bed easily awoken able to answer some questions. Some movement in his upper extremities but very limited in lower. Transfuse 1 unit today. Plan discussed with RN. Vitals/I&O Vitals/I&O: Vital Signs Date Time Temp Pulse Resp B/P (MAP) Pulse Ox O2 Delivery O2 Flow Rate FiO2 10/09/21 08:34 79 113/63 10/09/21 07:45 Room Air 10/09/21 07:29 98.5 16 100 98.5 10/09/21 06:36 2.0 I & O 10/08/21 10/08/21 10/09/21 15:00 23:00 07:00 Intake Total 1500 ml 150 ml 500 ml Output Total 400 ml 550 ml 600 ml Balance 1100 ml -400 ml -100 ml Physical Exam General: Alert, Oriented X3, Cooperative Heart: Regular rate Lungs: Clear Abdomen: Normal bowel sounds, Soft, No tenderness Extremities: No edema, Normal pulses Skin: Other (dressing dry, intact) Assessment and Plan Assessmemt and Plan Postoperative posterior cervical laminectomy. Fall in July with cervical fracture (at that time he had a anterior cervical laminectomy) Status post cervical hematoma had to return to the OR New UTI History of the following; Cervical laminectomy as per above, diabetes, hypertension, hyperlipidemia, arthritis, GERD, left knee arthroplasty and TIA and also IVC filter and prior ACDF at C4 through C5 and C5 through C6 in 07/2021. Plan PT OT (he is starting to move a little more each day) Wound jail meds DVT prophylaxis Added Levaquin for UTI As needed Valium Continue Lyrica Full code [facility] rehab did not accept the patient again Hopes to transfer to [facility] alf unit Comment Review of Relevant I have reviewed the following items michelle (where applicable) has been applied. Justifications for Admission Other Justification uncontrolled diabetes MISSY BATES III DO Oct 09, 2021 11:32
[2021-10-09 12:00] VITALS: BP 138/65
--- NOTE | 2021-10-09 12:49 | PDOC ---
PROGRESS NOTES Date of Service DATE: 10/09/21 TIME: 12:46 Subjective Subjective POD #13 S/P Evacuation of epidural hematoma, s/p cervical laminectomy and fusion 09/25/21 pain well controlled left arm feels cold at night feels short of breath when talking Objective Objective Vital Signs Date Time Temp Pulse Resp B/P (MAP) Pulse Ox O2 Delivery O2 Flow Rate FiO2 10/09/21 12:00 97.9 80 16 138/65 (89) 97 Room Air 97.9 10/09/21 06:36 2.0 Intake and Output 10/09/21 06:59 Intake Total 2150 ml Output Total 1550 ml Balance 600 ml Intake Oral 2150 ml Output Urine Total 1550 ml Physical Exam General: Alert, Oriented X3, Cooperative, No acute distress Neuro: Normal speech, Other (sensation intact in upper and lower extremities, moves upper extremities with 3/5 strength, hand grasps slightly stronger- finger extension improved, moves right great toe) Skin: Other (dressing dry and intact) Plan Plan of Care continue current plan chest x ray SCDs favio out this week arrangements being made for rehab/ SNF placement D/W RN Comment Review of Relevant I have reviewed the following items michelle (where applicable) has been applied. Labs Microbiology 10/01/21 Urine Culture - Final, Complete Escherichia Coli Escherichia Coli#2 Medications Current Medications Fentanyl Citrate (Fentanyl 2ml Vial) 25 mcg PRN Q5MIN PRN IVP MILD PAIN 1-3; Start 09/25/21 at 06:00; Stop 09/25/21 at 20:00; Status DC Fentanyl Citrate (Fentanyl 2ml Vial) 50 mcg PRN Q5MIN PRN IVP MODERATE PAIN 4-6 Last administered on 09/25/21at 13:48; Start 09/25/21 at 06:00; Stop 09/25/21 at 20:00; Status DC Morphine Sulfate (Morphine Sulfate) 1 mg PRN Q10MIN PRN IVP SEVERE PAIN 7-10 Last administered on 09/25/21at 14:21; Start 09/25/21 at 06:00; Stop 09/25/21 at 20:00; Status DC Ringer's Solution 1,000 ml @ 30 mls/hr Q24H IV Last administered on 09/25/21at 12:54; Start 09/25/21 at 06:00; Stop 09/25/21 at 17:59; Status DC Hydromorphone HCl (Dilaudid) 0.5 mg PRN Q10MIN PRN IVP SEVERE PAIN 7-10, 2nd CHOICE Last administered on 09/25/21at 16:53; Start 09/25/21 at 06:00; Stop 09/25/21 at 20:00; Status DC Prochlorperazine Edisylate (Compazine) 5 mg PACU PRN PRN IVP NAUSEA, MRX1; Start 09/25/21 at 06:00; Stop 09/25/21 at 20:00; Status DC Cefazolin Sodium 1 gm/Sodium Chloride 1,000 ml @ 1,000 mls/hr 1X ONCE IRR Last administered on 09/25/21at 10:14; Start 09/25/21 at 06:00; Stop 09/25/21 at 06:59; Status DC Cefazolin Sodium/ Dextrose 50 ml @ 100 mls/hr 1X PREOP PRN IV PRIOR TO PROCEDURE Last administered on 09/25/21at 09:30; Start 09/25/21 at 06:00; Stop 09/25/21 at 13:39; Status DC Insulin Human Lispro (HumaLOG VIAL for OP,RR ONLY) 0-10 units PRN Q1HR PRN SQ PER PROTOCOL Last administered on 09/25/21at 17:01; Start 09/25/21 at 07:00; Stop 09/25/21 at 18:00; Status DC Bupivacaine HCl/ Epinephrine Bitart (Sensorcain-Epi 0.5% Kit) 30 ml STK-MED ONCE INJ Last administered on 09/25/21at 10:14; Start 09/25/21 at 10:14; Stop 09/25/21 at 10:30; Status DC Ketorolac Tromethamine (Toradol Im) 60 mg STK-MED ONCE INJ Last administered on 09/25/21at 10:14; Start 09/25/21 at 10:14; Stop 09/25/21 at 10:30; Status DC Thrombin 20,000 unit STK-MED ONCE TP Last administered on 09/25/21at 10:14; Start 09/25/21 at 10:14; Stop 09/25/21 at 10:30; Status DC Gelatin (Gelfoam Size 100) 1 each STK-MED ONCE TP Last administered on 09/25/21at 10:14; Start 09/25/21 at 10:14; Stop 09/25/21 at 10:30; Status DC Acetaminophen (Tylenol) 650 mg PRN Q4HRS PRN PO TEMP OVER 100.4F OR MILD PAIN Last administered on 10/02/21 14:14; Start 09/25/21 at 12:30 Aspirin (Aspirin Chewable) 81 mg DAILY PO Last administered on 09/26/21 08:30; Start 09/26/21 at 09:00; Stop 09/28/21 at 17:19; Status DC Atorvastatin Calcium (Lipitor) 10 mg QHS PO Last administered on 10/08/21at 21:41; Start 09/25/21 at 21:00 Baclofen (Lioresal) 10 mg BID PO Last administered on 10/09/21at 08:33; Start 09/25/21 at 21:00 Diazepam (Valium) 5 mg TID PO Last administered on 10/09/21 08:33; Start 09/25/21 at 14:00 Docusate Sodium (Colace) 100 mg PRN BID PRN PO HARD STOOLS Last administered on 10/01/21 20:28; Start 09/25/21 at 12:30 Fluticasone Propionate (Flonase) 2 spray DAILY NS Last administered on 10/09/21 08:34; Start 09/26/21 at 09:00 Hydroxyzine HCl (Atarax) 25 mg PRN Q6HRS PRN PO itching Last administered on 10/08/21 21:54; Start 09/25/21 at 12:30 Lidocaine (Lidoderm) 1 patch QHS TP Last administered on 10/03/21 23:31; Start 09/25/21 at 20:00; Stop 10/05/21 at 01:01; Status DC Linagliptin (Tradjenta) 5 mg DAILY PO Last administered on 10/09/21 08:33; Start 09/25/21 at 13:00 Miconazole Nitrate (Monistat-Derm) 1 crispin TID TP Last administered on 10/04/21 20:08; Start 09/25/21 at 21:00; Stop 10/05/21 at 13:23; Status DC Midodrine (Proamatine) 2.5 mg PRN 1X PRN PO hypotension Last administered on 09/27/21at 08:56; Start 09/25/21 at 12:30 Oxycodone HCl (Roxicodone) 10 mg PRN Q6HRS PRN PO MODERATE-SEVERE PAIN Last administered on 10/09/21at 06:06; Start 09/25/21 at 12:30 Diclofenac Sodium (Voltaren) 1 crispin PRN TID PRN TP PAIN CONTROL; Start 09/25/21 at 13:15; Stop 09/25/21 at 18:37; Status DC Insulin Glargine (Lantus Syringe) 4 unit QHS SQ Last administered on 10/08/21at 21:40; Start 09/25/21 at 21:00 Losartan Potassium (Cozaar) 25 mg DAILY08 PO Last administered on 10/09/21at 08:34; Start 09/26/21 at 08:00 Polyethylene Glycol (miraLAX PACKET) 17 gm DAILY PO Last administered on 10/09/21at 08:33; Start 09/25/21 at 14:00 Pregabalin (Lyrica) 100 mg BID PO Last administered on 10/09/21at 08:36; Start 09/25/21 at 21:00 Acetaminophen (Tylenol) 650 mg PRN Q6HRS PRN PO MILD PAIN / TEMP > 100.3'F; Start 09/25/21 at 12:30; Status Cancel Al Hydroxide/Mg Hydroxide (Mylanta Plus Xs) 30 ml PRN Q3HRS PRN PO HEARTBURN / GAS; Start 09/25/21 at 12:30 Calcium Carbonate/ Glycine (Tums) 500 mg PRN Q3HRS PRN PO INDIGESTION; Start 09/25/21 at 12:30 Diphenhydramine HCl (Benadryl) 25 mg PRN Q6HRS PRN PO ITCHING; Start 09/25/21 at 12:30 Naloxone HCl (Narcan) 0.1 mg PRN Q2MIN PRN IV SEE COMMENTS; Start 09/25/21 at 12:30 Sodium Chloride (Normal Saline Flush) 3 ml QSHIFT PRN IV AFTER MEDS AND BLOOD DRAWS; Start 09/25/21 at 12:30 Potassium Chloride/Sodium Chloride 1,000 ml @ 75 mls/hr [id number] IV Last administered on 09/26/21at 07:00; Start 09/25/21 at 12:30; Stop 09/26/21 at 17:33; Status DC Magnesium Hydroxide (Milk Of Magnesia) 2,400 mg PRN Q12HR PRN PO CONSTIPATION; Start 09/25/21 at 12:30 Cefazolin Sodium (Ancef) 1 gm Q8H IVP Last administered on 09/26/21at 04:14; Start 09/25/21 at 18:00; Stop 09/26/21 at 10:01; Status DC Fentanyl Citrate (Fentanyl 2ml Vial) 50 mcg PRN Q2HR PRN IVP MODERATE TO SEVERE PAIN Last administered on 10/05/21at 22:46; Start 09/25/21 at 12:30 Dextrose (Dextrose 50%-Water Syringe) 12.5 gm PRN Q15MIN PRN IV SEE COMMENTS; Start 09/25/21 at 12:30 Dextrose (Iv Dextrose 5%) 250 ml PRN Q15MIN PRN IV SEE COMMENTS; Start 09/25/21 at 12:30 Gelatin (Gelfoam Size 100) 1 each STK-MED ONCE .ROUTE ; Start 09/25/21 at 06:37; Stop 09/25/21 at 14:55; Status DC Bupivacaine HCl/ Epinephrine Bitart (Sensorcain-Epi 0.5% Kit) 30 ml STK-MED ONCE .ROUTE ; Start 09/25/21 at 06:37; Stop 09/25/21 at 14:55; Status DC Ketorolac Tromethamine (Toradol Im) 60 mg STK-MED ONCE .ROUTE ; Start 09/25/21 at 06:37; Stop 09/25/21 at 14:55; Status DC Thrombin 20,000 unit STK-MED ONCE TP ; Start 09/25/21 at 06:38; Stop 09/25/21 at 14:55; Status DC Propofol (Diprivan) 200 mg STK-MED ONCE IV ; Start 09/25/21 at 05:54; Stop 09/25/21 at 14:57; Status DC Lidocaine HCl (Lidocaine Pf 2% Vial) 5 ml STK-MED ONCE .ROUTE ; Start 09/25/21 at 05:54; Stop 09/25/21 at 14:57; Status DC Ondansetron HCl (Zofran) 4 mg STK-MED ONCE .ROUTE ; Start 09/25/21 at 05:54; Stop 09/25/21 at 14:57; Status DC Phenylephrine HCl (Ramone-Synephrine Inj) 10 mg STK-MED ONCE .ROUTE ; Start 09/25/21 at 05:54; Stop 09/25/21 at 14:57; Status DC Propofol 50 ml @ As Directed STK-MED ONCE IV ; Start 09/25/21 at 05:54; Stop 09/25/21 at 14:57; Status DC Dexamethasone Sodium Phosphate (Decadron) 4 mg STK-MED ONCE .ROUTE ; Start 09/25/21 at 05:54; Stop 09/25/21 at 14:57; Status DC Fentanyl Citrate (Fentanyl 2ml Vial) 100 mcg STK-MED ONCE .ROUTE ; Start 09/25/21 at 05:54; Stop 09/25/21 at 14:57; Status DC Succinylcholine Chloride (Anectine) 200 mg STK-MED ONCE .ROUTE ; Start 09/25/21 at 05:54; Stop 09/25/21 at 14:57; Status DC Remifentanil HCl (Ultiva) 1 mg STK-MED ONCE IV ; Start 09/25/21 at 05:54; Stop 09/25/21 at 14:57; Status DC Glycopyrrolate (Robinul) 1 mg STK-MED ONCE .ROUTE ; Start 09/25/21 at 07:11; Stop 09/25/21 at 15:01; Status DC Propofol 50 ml @ As Directed STK-MED ONCE IV ; Start 09/25/21 at 08:07; Stop 09/25/21 at 15:02; Status DC Ketamine HCl (Ketamine) 50 mg STK-MED ONCE .ROUTE ; Start 09/25/21 at 08:15; Stop 09/25/21 at 15:02; Status DC Hydromorphone HCl (Dilaudid) 2 mg STK-MED ONCE .ROUTE ; Start 09/25/21 at 10:44; Stop 09/25/21 at 15:03; Status DC Fentanyl Citrate (Fentanyl 2ml Vial) 100 mcg STK-MED ONCE .ROUTE ; Start 09/25/21 at 13:26; Stop 09/25/21 at 15:04; Status DC Morphine Sulfate (Morphine Sulfate) 2 mg STK-MED ONCE .ROUTE ; Start 09/25/21 at 14:04; Stop 09/25/21 at 15:05; Status DC Hydromorphone HCl (Dilaudid) 2 mg STK-MED ONCE .ROUTE ; Start 09/25/21 at 14:54; Stop 09/25/21 at 15:06; Status DC Menthol/Methyl Salicylate (Bengay Greaseless Cream) 1 crispin PRN Q30MIN PRN TP MUSCLE PAIN Last administered on 10/02/21at 21:03; Start 09/25/21 at 18:45 Mupirocin (Bactroban) 1 crispin BID NS Last administered on 10/08/21at 21:00; Start 09/26/21 at 09:00 Dexamethasone Sodium Phosphate (Decadron) 10 mg 1X ONCE IVP Last administered on 09/26/21at 07:31; Start 09/26/21 at 07:30; Stop 09/26/21 at 07:31; Status DC Cefazolin Sodium 1 gm/Sodium Chloride 1,000 ml @ 1,000 mls/hr 1X ONCE IRR Last administered on 09/26/21at 11:52; Start 09/26/21 at 10:30; Stop 09/26/21 at 11:29; Status DC Cefazolin Sodium (Ancef) 1 gm STK-MED ONCE IVP ; Start 09/26/21 at 10:05; Stop 09/26/21 at 10:06; Status DC Lidocaine HCl (Lidocaine Pf 2% Vial) 5 ml STK-MED ONCE .ROUTE ; Start 09/26/21 at 10:18; Stop 09/26/21 at 10:18; Status DC Ondansetron HCl (Zofran) 4 mg STK-MED ONCE .ROUTE ; Start 09/26/21 at 10:18; Stop 09/26/21 at 10:18; Status DC Propofol (Diprivan) 200 mg STK-MED ONCE IV ; Start 09/26/21 at 10:18; Stop 09/26/21 at 10:19; Status DC Dexamethasone Sodium Phosphate (Decadron) 4 mg STK-MED ONCE .ROUTE ; Start 09/26/21 at 10:18; Stop 09/26/21 at 10:19; Status DC Sevoflurane (Ultane) 30 ml STK-MED ONCE IH ; Start 09/26/21 at 10:18; Stop 09/26/21 at 10:19; Status DC Fentanyl Citrate (Fentanyl 2ml Vial) 100 mcg STK-MED ONCE .ROUTE ; Start 09/26/21 at 10:19; Stop 09/26/21 at 10:19; Status DC Rocuronium [place] (Zemuron) 50 mg STK-MED ONCE .ROUTE ; Start 09/26/21 at 10:19; Stop 09/26/21 at 10:19; Status DC Insulin Human Lispro (HumaLOG VIAL for OP,RR ONLY) 0-10 units PRN Q1HR PRN SQ PER PROTOCOL Last administered on 09/26/21at 15:11; Start 09/26/21 at 10:30; Stop 09/26/21 at 18:00; Status DC Sugammadex Sodium (Bridion) 200 mg 1X ONCE IVP Last administered on 09/26/21at 10:30; Start 09/26/21 at 10:30; Stop 09/26/21 at 10:31; Status DC Gelatin (Gelfoam Size 100) 1 each STK-MED ONCE .ROUTE Last administered on 09/26/21at 11:52; Start 09/26/21 at 10:30; Stop 09/26/21 at 10:30; Status DC Bupivacaine HCl/ Epinephrine Bitart (Sensorcain-Epi 0.5% Kit) 30 ml STK-MED ONCE .ROUTE ; Start 09/26/21 at 10:30; Stop 09/26/21 at 10:30; Status DC Ketorolac Tromethamine (Toradol Im) 60 mg STK-MED ONCE .ROUTE ; Start 09/26/21 at 10:30; Stop 09/26/21 at 10:30; Status DC Thrombin 20,000 unit STK-MED ONCE TP Last administered on 09/26/21at 11:52; Start 09/26/21 at 10:30; Stop 09/26/21 at 10:31; Status DC Cefazolin Sodium/ Dextrose 50 ml @ As Directed STK-MED ONCE IV ; Start 09/26/21 at 10:32; Stop 09/26/21 at 10:32; Status DC Vancomycin HCl 1 gm/Sodium Chloride 250 ml @ 250 mls/hr PREOP PRN PRN IV PRIOR TO PROCEDURE; Start 09/26/21 at 10:45; Stop 09/26/21 at 14:00; Status DC Cefazolin Sodium/ Dextrose 50 ml @ 100 mls/hr 1X ONCE IV Last administered on 09/26/21at 11:00; Start 09/26/21 at 11:00; Stop 09/26/21 at 11:29; Status DC Dexamethasone Sodium Phosphate (Decadron) 4 mg STK-MED ONCE .ROUTE ; Start 09/26/21 at 11:04; Stop 09/26/21 at 11:04; Status DC Glycopyrrolate (Robinul) 1 mg STK-MED ONCE .ROUTE ; Start 09/26/21 at 11:04; Stop 09/26/21 at 11:04; Status DC Hydromorphone HCl (Dilaudid) 2 mg STK-MED ONCE .ROUTE ; Start 09/26/21 at 11:56; Stop 09/26/21 at 11:56; Status DC Fentanyl Citrate (Fentanyl 2ml Vial) 25 mcg PRN Q5MIN PRN IVP MILD PAIN 1-3; Start 09/26/21 at 14:30; Stop 09/26/21 at 18:15; Status DC Fentanyl Citrate (Fentanyl 2ml Vial) 50 mcg PRN Q5MIN PRN IVP MODERATE PAIN 4- 6; Start 09/26/21 at 14:30; Stop 09/26/21 at 18:15; Status DC Morphine Sulfate (Morphine Sulfate) 1 mg PRN Q10MIN PRN IVP SEVERE PAIN 7-10; Start 09/26/21 at 14:30; Stop 09/26/21 at 18:15; Status DC Ringer's Solution 1,000 ml @ 30 mls/hr Q24H IV Last administered on 09/26/21at 15:18; Start 09/26/21 at 14:30; Stop 09/26/21 at 21:00; Status DC Hydromorphone HCl (Dilaudid) 0.5 mg PRN Q10MIN PRN IVP SEVERE PAIN 7-10, 2nd CHOICE; Start 09/26/21 at 14:30; Stop 09/26/21 at 18:15; Status DC Prochlorperazine Edisylate (Compazine) 5 mg PACU PRN PRN IVP NAUSEA, MRX1; Start 09/26/21 at 14:30; Stop 09/26/21 at 21:00; Status DC Fentanyl Citrate (Fentanyl 2ml Vial) 100 mcg STK-MED ONCE .ROUTE ; Start 09/26/21 at 14:23; Stop 09/26/21 at 14:25; Status DC Fentanyl Citrate (Fentanyl 2ml Vial) 25 mcg PRN Q5MIN PRN IVP MILD PAIN 1-3; Start 09/26/21 at 14:30; Stop 09/27/21 at 14:29; Status UNV Fentanyl Citrate (Fentanyl 2ml Vial) 50 mcg PRN Q5MIN PRN IVP MODERATE PAIN 4- 6; Start 09/26/21 at 14:30; Stop 09/27/21 at 14:29; Status UNV Morphine Sulfate (Morphine Sulfate) 1 mg PRN Q10MIN PRN IVP SEVERE PAIN 7-10; Start 09/26/21 at 14:30; Stop 09/27/21 at 14:29; Status UNV Ringer's Solution 1,000 ml @ 30 mls/hr Q24H IV ; Start 09/26/21 at 14:30; Stop 09/27/21 at 02:29; Status UNV Hydromorphone HCl (Dilaudid) 0.5 mg PRN Q10MIN PRN IVP SEVERE PAIN 7-10, 2nd CHOICE; Start 09/26/21 at 14:30; Stop 09/27/21 at 14:29; Status UNV Prochlorperazine Edisylate (Compazine) 5 mg PACU PRN PRN IVP NAUSEA, MRX1; Start 09/26/21 at 14:30; Stop 09/27/21 at 14:29; Status UNV Dexamethasone Sodium Phosphate (Decadron) 4 mg Q6HRS IVP Last administered on 09/28/21at 05:06; Start 09/26/21 at 18:00; Stop 09/28/21 at 06:00; Status DC Sodium Chloride 1,000 ml @ 100 mls/hr Q10H IV Last administered on 10/05/21at 06:41; Start 09/26/21 at 17:30; Stop 10/05/21 at 13:48; Status DC Cefazolin Sodium (Ancef) 1 gm Q8HRS IVP ; Start 09/27/21 at 06:00; Stop 09/27/21 at 05:47; Status DC Vancomycin HCl 1 gm/Sodium Chloride 250 ml @ 166.667 mls/hr 1X ONCE IV Last administered on 09/27/21at 06:27; Start 09/27/21 at 06:00; Stop 09/27/21 at 07:29; Status DC Gadoterate Meglumine (Clariscan) 19 ml 1X ONCE IVP Last administered on 09/29/21at 10:32; Start 09/29/21 at 08:15; Stop 09/29/21 at 08:17; Status DC Bisacodyl (Dulcolax Supp) 10 mg PRN DAILY PRN [place] CONSTIPATION; Start 09/29/21 at 14:15 Lactulose (Lactulose) 20 gm PRN DAILY PRN PO CONSTIPATION, 2nd choice Last administered on 10/01/21at 08:35; Start 09/29/21 at 14:30 Ascorbic Acid (Vitamin C) 500 mg DAILY PO Last administered on 10/09/21at 08:33; Start 10/02/21 at 10:00 Levofloxacin/ Dextrose 100 ml @ 100 mls/hr Q24H IV Last administered on 10/02/21at 12:15; Start 10/02/21 at 12:00; Stop 10/03/21 at 08:57; Status DC Levofloxacin/ Dextrose 50 ml @ 50 mls/hr Q24H IV Last administered on 10/06/21at 15:19; Start 10/03/21 at 12:00; Stop 10/06/21 at 23:00; Status DC Lactobacillus Rhamnosus (Culturelle) 1 cap BID PO Last administered on 10/09/21at 08:33; Start 10/03/21 at 21:00 Lidocaine (Lidoderm) 1 patch QHS TP Last administered on 10/08/21at 21:53; St art 10/04/21 at 22:00 Levofloxacin (Levaquin) 250 mg DAILY06 PO Last administered on 10/09/21at 06:06; Start 10/07/21 at 06:00 Active Scripts Active Dok (Docusate Sodium) 100 Mg Capsule 100 Mg PO PRN BID PRN 30 Days Tylenol (Acetaminophen) 325 Mg Tablet 650 Mg PO PRN Q4HRS PRN 30 Days Valium (Diazepam) 5 Mg Tablet 5 Mg PO TID Atorvastatin Calcium 10 Mg Tablet 10 Mg PO QHS Reported Midodrine Hcl 2.5 Mg Tablet 2.5 Mg PO PRN 1X PRN Aspirin 81 Mg Tab.chew 81 Mg PO DAILY Baclofen 10 Mg Tablet 10 Mg PO BID Lyrica (Pregabalin) 100 Mg Capsule 100 Mg PO BID 30 Days Polyethylene Glycol 3350 2,500 Gm Powder 17 Gm PO DAILY 30 Days Oxycodone HCl 5 Mg Tablet 10 Mg PO PRN Q6HRS PRN Micatin (Miconazole Nitrate) 14 Gm Cream..g. 1 Crispin TP TID Tradjenta (Linagliptin) 5 Mg Tablet 5 Mg PO DAILY Lidocaine PATCH (Lidocaine) 1 Each Adh..patch 1 Each TP DAILY REMOVE AFTER 12 HOURS Levemir (Insulin Detemir) 100 Unit/1 Ml Vial 4 Unit SQ HS Hydroxyzine Hcl 25 Mg Tablet 25 Mg PO PRN Q6HRS PRN Fluticasone Propionate Nasal [place] (Fluticasone Propionate) 16 Gm [place].susp 2 [place] NS DAILY Diclofenac Sodium 100 Gm Gel..gram. 100 Gm TP PRN TID PRN Losartan Potassium 100 Mg Tablet 25 Tab PO DAILY08 Vitals/I & O Vital Sign - Last 24 Hours 10/08/21 10/08/21 10/08/21 10/08/21 17:00 17:14 17:44 20:00 Temp 97.9 98.9 97.9 98.9 Pulse 76 76 Resp 17 18 18 16 B/P (MAP) 150/79 (102) 136/72 (93) Pulse Ox 98 98 98 97 O2 Delivery Room Air Room Air Room Air Room Air 10/08/21 10/08/21 10/08/21 10/09/21 20:00 22:45 23:15 00:00 Temp 98.4 98.4 Pulse 72 Resp 14 14 16 B/P (MAP) 132/74 (93) Pulse Ox 98 97 97 O2 Delivery Room Air Room Air Room Air Room Air O2 Flow Rate 2.0 10/09/21 10/09/21 10/09/21 10/09/21 04:00 06:06 06:36 07:29 Temp 98.5 98.5 98.5 98.5 Pulse 76 79 Resp 16 12 18 16 B/P (MAP) 106/72 (83) 113/63 (80) Pulse Ox 97 97 100 100 O2 Delivery Room Air Room Air Room Air Room Air O2 Flow Rate 2.0 2.0 10/09/21 10/09/21 10/09/21 07:45 08:34 12:00 Temp 97.9 97.9 Pulse 79 80 Resp 16 B/P (MAP) 113/63 138/65 (89) Pulse Ox 97 O2 Delivery Room Air Room Air Intake and Output 10/08/21 10/08/21 10/09/21 14:59 22:59 06:59 Intake Total 1500 ml 150 ml 500 ml Output Total 400 ml 550 ml 600 ml Balance 1100 ml -400 ml -100 ml Justifications for Admission Other Justification uncontrolled diabetes TODD RIVERA PRECISION 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
--- NOTE | 2021-10-09 13:41 | RAD ---
EXAM: Chest, single view. HISTORY: Short of breath. COMPARISON: 07/25/2021 FINDINGS: A frontal view of the chest is obtained. There is no infiltrate, pleural effusion or pneumo thorax. The heart is normal in size. IMPRESSION: No acute pulmonary finding. Electronically signed by: Delmi Freitas MD (10/09/2021 1:39 PM) [id number]
[2021-10-09 16:05] VITALS: BP 129/66
[2021-10-09 20:00] VITALS: BP 121/62
[2021-10-09] MEDS: hydrOXYzine 25 MG TABLET PO PRN (20:57)
[2021-10-09] MEDS: ATORVASTATIN CALCIUM 10 MG TABLET. PO SCH (20:58)
[2021-10-09] MEDS: INSULIN GLARGINE SYRINGE. SQ SCH (20:58)
[2021-10-09] MEDS: LIDOCAINE (700MG/PATCH) PATCH. TP SCH (20:59)
[2021-10-10] VITALS: BP 96/44
[2021-10-10] MEDS: oxyCODONE IR 5 MG TABLET PO PRN ×4 (03:32→23:03)
[2021-10-10 04:00] VITALS: BP 96/59
[2021-10-10] MEDS: hydrOXYzine 25 MG TABLET PO PRN ×2 (04:44→20:53)
[2021-10-10] MEDS: LACTOBACILLUS RHAMNOSUS GG 1 CAPSULE. PO SCH ×2 (07:54→20:53)
[2021-10-10] MEDS: LINAGLIPTIN 5 MG TABLET PO SCH (07:54)
[2021-10-10] MEDS: LOSARTAN POTASSIUM 25 MG TABLET. PO SCH (07:55)
[2021-10-10] MEDS: diazePAM 5 MG TABLET PO SCH ×3 (07:55→20:53)
[2021-10-10] MEDS: PREGABALIN 50 MG CAPSULE PO SCH ×2 (07:56→20:53)
[2021-10-10] MEDS: ASCORBIC ACID 500 MG TABLET PO SCH (07:56)
[2021-10-10] MEDS: FLUTICASONE 50MCG/NASAL SPRAY 16GM BOTTLE. NS SCH (07:56)
[2021-10-10] MEDS: MUPIROCIN 2 % OINTMENT 22GM TUBE. NS SCH ×2 (07:56→20:57)
[2021-10-10] MEDS: BACLOFEN 10 MG TABLET. PO SCH ×2 (07:56→20:53)
[2021-10-10] MEDS: POLYETHYLENE GLYCOL 3350 17 GM PACKET. PO SCH (07:57)
[2021-10-10 08:05] VITALS: BP 137/66
--- NOTE | 2021-10-10 10:25 | SNU/HH DC ---
DISCHARGE WITH HOME HEALTH DISCHARGE INFORMATION: Condition on Discharge: Stable CODE STATUS: Code Status: Full HOME HEALTH: Face to Face: I certify this patient is under my care and that I, or a nurse practitioner or physician's judicial administrative assistant working with me, had a face to face encounter that meets the physician face to face encounter requirements with this patient on []. Medical Complications: Other (Recent fall with neck injury/cervical surgery) Long Term For: Assess/Skilled Observatio RN For Eval/Treatment: Yes Physical Therapy For: Evalulation/Treatment Occupational Therapy For: Evaluation/Treatment Speech Language Pathology For: Evaluation/Treatment Home Health Aide For: Self-care DIRECTORY OPERATOR For: Community Resources Pt Meets Homebound Status: Poor coordination w/ amb. POST DISCHARGE ORDERS: Activity Instructions for Disc: Activity as tolerated Weight Bearing Status after Di: As tolerated DIET AFTER DISCHARGE: Regular Wound/Incision Care: No wound care needed CHECKS AFTER DISCHARGE: Checks after discharge: Check blood press - daily, Check blood sugar, ac/hs FOLLOW-UP: DC TO SNF LABS: cbc, chem 7 1 week, TREATMENT/EQUIPMENT ORDERS: Adaptive Equipment Issued: Grab bars, Leg mechanical expert CERTIFICATION STATEMENT: Certification Statement: Certification Statement: Based on the above finding, I certify that this patient is confined to the home and needs intermittent mcfp care, physical therapy and/or speech therapy, or continues to need occupational therapy.~ This patient is under my care, and I have initiated the establishment of the plan of care.~ This patient will be followed by myself or a community physician who will periodically review the plan of care. Home Meds Active Scripts Docusate Sodium (DOK) 100 Mg Capsule, 100 MG PO PRN BID PRN for HARD STOOLS for 30 Days, #60 CAP Prov:AIDE LENTZ MD 09/17/20 Acetaminophen (TYLENOL) 325 Mg Tablet, 650 MG PO PRN Q4HRS PRN for TEMP OVER 100.4F OR MILD PAIN for 30 Days, #60 TAB Prov:AIDE LENTZ MD 09/17/20 Diazepam (VALIUM) 5 Mg Tablet, 5 MG PO TID for SPASM, #15 TAB Prov:CINDA ERNANDEZ MD 06/30/20 Atorvastatin Calcium (ATORVASTATIN CALCIUM) 10 Mg Tablet, 10 MG PO QHS, #30 TAB- CAP Prov:TIMMY MARTINS MD 11/20/16 Reported Medications Midodrine Hcl (MIDODRINE HCL) 2.5 Mg Tablet, 2.5 MG PO PRN 1X PRN for hypotension, TAB 09/22/21 Aspirin (ASPIRIN) 81 Mg Tab.chew, 81 MG PO DAILY for blood thinner, TAB.CHEW 09/22/21 Baclofen (BACLOFEN) 10 Mg Tablet, 10 MG PO BID 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, #30 TAB 0 Refills 09/21/21 Pregabalin (LYRICA) 100 Mg Capsule, 100 MG PO BID for neurological pain for 30 Days, CAP 0 Refills 09/21/21 Polyethylene Glycol 3350 (POLYETHYLENE GLYCOL 3350) 2,500 Gm Powder, 17 GM PO DAILY for constipation for 30 Days, #527 GM 0 Refills 09/21/21 Oxycodone HCl (Oxycodone HCl) 5 Mg Tablet, 10 MG PO PRN Q6HRS PRN for severe pain 7-10, TAB 09/21/21 Miconazole Nitrate (MICATIN) 14 Gm Cream..g., 1 MARTHA TP TID for treat tinea pedis, EACH 09/21/21 Linagliptin (TRADJENTA) 5 Mg Tablet, 5 MG PO DAILY for TYPE 2 DIABETES, TAB 09/21/21 Lidocaine (Lidocaine PATCH ) 1 Each Adh..patch, 1 EACH TP DAILY for FOR LOCAL PAIN, PATCH REMOVE AFTER 12 HOURS 09/21/21 Insulin Detemir (LEVEMIR) 100 Unit/1 Ml Vial, 4 UNIT SQ HS for control diabetes, EACH 09/21/21 Hydroxyzine Hcl (HYDROXYZINE HCL) 25 Mg Tablet, 25 MG PO PRN Q6HRS PRN for itching, TAB 09/21/21 Fluticasone Propionate (FLUTICASONE PROPIONATE NASAL SPRAY) 16 Gm [place].susp, 2 SPRAY NS DAILY for control allergies, EACH 09/21/21 Diclofenac Sodium (DICLOFENAC SODIUM) 100 Gm Gel..gram., 100 GM TP PRN TID PRN for pain control, EACH 09/21/21 Losartan Potassium (LOSARTAN POTASSIUM) 100 Mg Tablet, 25 TAB PO DAILY08 for bp control, #30 11/18/16 MISSY BATES III DO Oct 10, 2021 10:25
--- NOTE | 2021-10-10 10:39 | SNU/HH DC ---
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 Physical Therapy For: Evalulation/Treatment Occupational Therapy For: Evaluation/Treatment Speech Language Pathology For: Evaluation/Treatment DISCHARGE MEDICATIONS: Home Meds Active Scripts Docusate Sodium (DOK) 100 Mg Capsule, 100 MG PO PRN BID PRN for HARD STOOLS for 30 Days, #60 CAP Prov:AIDE LENTZ MD 09/17/20 Acetaminophen (TYLENOL) 325 Mg Tablet, 650 MG PO PRN Q4HRS PRN for TEMP OVER 100.4F OR MILD PAIN for 30 Days, #60 TAB Prov:AIDE LENTZ MD 09/17/20 Diazepam (VALIUM) 5 Mg Tablet, 5 MG PO TID for SPASM, #15 TAB Prov:CINDA ERNANDEZ MD 06/30/20 Atorvastatin Calcium (ATORVASTATIN CALCIUM) 10 Mg Tablet, 10 MG PO QHS, #30 TAB- CAP Prov:TIMMY MARTINS MD 11/20/16 Reported Medications Midodrine Hcl (MIDODRINE HCL) 2.5 Mg Tablet, 2.5 MG PO PRN 1X PRN for hypotension, TAB 09/22/21 Aspirin (ASPIRIN) 81 Mg Tab.chew, 81 MG PO DAILY for blood thinner, TAB.CHEW 09/22/21 Baclofen (BACLOFEN) 10 Mg Tablet, 10 MG PO BID 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, #30 TAB 0 Refills 09/21/21 Pregabalin (LYRICA) 100 Mg Capsule, 100 MG PO BID for neurological pain for 30 Days, CAP 0 Refills 09/21/21 Polyethylene Glycol 3350 (POLYETHYLENE GLYCOL 3350) 2,500 Gm Powder, 17 GM PO DAILY for constipation for 30 Days, #527 GM 0 Refills 09/21/21 Miconazole Nitrate (MICATIN) 14 Gm Cream..g., 1 MARTHA TP TID for treat tinea pedis, EACH 09/21/21 Linagliptin (TRADJENTA) 5 Mg Tablet, 5 MG PO DAILY for TYPE 2 DIABETES, TAB 09/21/21 Lidocaine (Lidocaine PATCH ) 1 Each Adh..patch, 1 EACH TP DAILY for FOR LOCAL PAIN, PATCH REMOVE AFTER 12 HOURS 09/21/21 Insulin Detemir (LEVEMIR) 100 Unit/1 Ml Vial, 4 UNIT SQ HS for control diabetes, EACH 09/21/21 Hydroxyzine Hcl (HYDROXYZINE HCL) 25 Mg Tablet, 25 MG PO PRN Q6HRS PRN for itching, TAB 09/21/21 Fluticasone Propionate (FLUTICASONE PROPIONATE NASAL SPRAY) 16 Gm [place].susp, 2 SPRAY NS DAILY for control allergies, EACH 09/21/21 Diclofenac Sodium (DICLOFENAC SODIUM) 100 Gm Gel..gram., 100 GM TP PRN TID PRN for pain control, EACH 09/21/21 Losartan Potassium (LOSARTAN POTASSIUM) 100 Mg Tablet, 25 TAB PO DAILY08 for bp control, #30 11/18/16 Discontinued Reported Medications Oxycodone HCl (Oxycodone HCl) 5 Mg Tablet, 10 MG PO PRN Q6HRS PRN for severe pain 7-10, TAB 09/21/21 MISSY BATES III DO Oct 10, 2021 10:39
--- NOTE | 2021-10-10 10:50 | PDOC ---
PROGRESS NOTES Date of Service DATE: 10/10/21 TIME: 10:47 Subjective Subjective No new complaints. Objective Objective Vital Signs Date Time Temp Pulse Resp B/P (MAP) Pulse Ox O2 Delivery O2 Flow Rate FiO2 10/10/21 08:08 Room Air 10/10/21 08:05 97.7 73 18 137/66 (89) 98 97.7 10/10/21 04:02 2.0 Intake and Output 10/10/21 07:00 Intake Total 2400 ml Output Total 2325 ml Balance 75 ml Intake Oral 2400 ml Output Urine Total 2325 ml Physical Exam Physical Exam He is alert,supine in bed and seems comfortable and some stiffness of right shoulder. He moved left big toe this AM. Plan Plan of Care Agree with plans for transfer to [facility] for continued care when medically stable. Comment Review of Relevant I have reviewed the following items michelle (where applicable) has been applied. Labs Laboratory Tests Test 10/09/21 10:50 Coronavirus (COVID-19)(PCR) Not detected (NOT DETECTD) Laboratory Tests Test 10/09/21 10:50 Coronavirus (COVID-19)(PCR) Not detected (NOT DETECTD) Microbiology 10/01/21 Urine Culture - Final, Complete Escherichia Coli Escherichia Coli#2 Medications Current Medications Fentanyl Citrate (Fentanyl 2ml Vial) 25 mcg PRN Q5MIN PRN IVP MILD PAIN 1-3; Start 09/25/21 at 06:00; Stop 09/25/21 at 20:00; Status DC Fentanyl Citrate (Fentanyl 2ml Vial) 50 mcg PRN Q5MIN PRN IVP MODERATE PAIN 4-6 Last administered on 09/25/21at 13:48; Start 09/25/21 at 06:00; Stop 09/25/21 at 20:00; Status DC Morphine Sulfate (Morphine Sulfate) 1 mg PRN Q10MIN PRN IVP SEVERE PAIN 7-10 Last administered on 09/25/21at 14:21; Start 09/25/21 at 06:00; Stop 09/25/21 at 20:00; Status DC Ringer's Solution 1,000 ml @ 30 mls/hr Q24H IV Last administered on 09/25/21at 12:54; Start 09/25/21 at 06:00; Stop 09/25/21 at 17:59; Status DC Hydromorphone HCl (Dilaudid) 0.5 mg PRN Q10MIN PRN IVP SEVERE PAIN 7-10, 2nd CHOICE Last administered on 09/25/21at 16:53; Start 09/25/21 at 06:00; Stop 09/25/21 at 20:00; Status DC Prochlorperazine Edisylate (Compazine) 5 mg PACU PRN PRN IVP NAUSEA, MRX1; Start 09/25/21 at 06:00; Stop 09/25/21 at 20:00; Status DC Cefazolin Sodium 1 gm/Sodium Chloride 1,000 ml @ 1,000 mls/hr 1X ONCE IRR Last administered on 09/25/21at 10:14; Start 09/25/21 at 06:00; Stop 09/25/21 at 06:59; Status DC Cefazolin Sodium/ Dextrose 50 ml @ 100 mls/hr 1X PREOP PRN IV PRIOR TO PROCEDURE Last administered on 09/25/21at 09:30; Start 09/25/21 at 06:00; Stop 09/25/21 at 13:39; Status DC Insulin Human Lispro (HumaLOG VIAL for OP,RR ONLY) 0-10 units PRN Q1HR PRN SQ PER PROTOCOL Last administered on 09/25/21at 17:01; Start 09/25/21 at 07:00; Stop 09/25/21 at 18:00; Status DC Bupivacaine HCl/ Epinephrine Bitart (Sensorcain-Epi 0.5% Kit) 30 ml STK-MED ONCE INJ Last administered on 09/25/21at 10:14; Start 09/25/21 at 10:14; Stop 09/25/21 at 10:30; Status DC Ketorolac Tromethamine (Toradol Im) 60 mg STK-MED ONCE INJ Last administered on 09/25/21at 10:14; Start 09/25/21 at 10:14; Stop 09/25/21 at 10:30; Status DC Thrombin 20,000 unit STK-MED ONCE TP Last administered on 09/25/21at 10:14; Start 09/25/21 at 10:14; Stop 09/25/21 at 10:30; Status DC Gelatin (Gelfoam Size 100) 1 each STK-MED ONCE TP Last administered on 09/25/21at 10:14; Start 09/25/21 at 10:14; Stop 09/25/21 at 10:30; Status DC Acetaminophen (Tylenol) 650 mg PRN Q4HRS PRN PO TEMP OVER 100.4F OR MILD PAIN Last administered on 10/02/21at 14:14; Start 09/25/21 at 12:30 Aspirin (Aspirin Chewable) 81 mg DAILY PO Last administered on 09/26/21 08:30; Start 09/26/21 at 09:00; Stop 09/28/21 at 17:19; Status DC Atorvastatin Calcium (Lipitor) 10 mg QHS PO Last administered on 10/09/21 20:58; Start 09/25/21 at 21:00 Baclofen (Lioresal) 10 mg BID PO Last administered on 10/10/21 07:56; Start 09/25/21 at 21:00 Diazepam (Valium) 5 mg TID PO Last administered on 10/10/21 07:55; Start 09/25/21 at 14:00 Docusate Sodium (Colace) 100 mg PRN BID PRN PO HARD STOOLS Last administered on 10/01/21 20:28; Start 09/25/21 at 12:30 Fluticasone Propionate (Flonase) 2 spray DAILY NS Last administered on 10/10/21 07:56; Start 09/26/21 at 09:00 Hydroxyzine HCl (Atarax) 25 mg PRN Q6HRS PRN PO itching Last administered on 10/10/21 04:44; Start 09/25/21 at 12:30 Lidocaine (Lidoderm) 1 patch QHS TP Last administered on 10/03/21 23:31; Start 09/25/21 at 20:00; Stop 10/05/21 at 01:01; Status DC Linagliptin (Tradjenta) 5 mg DAILY PO Last administered on 10/10/21 07:54; Start 09/25/21 at 13:00 Miconazole Nitrate (Monistat-Derm) 1 crispin TID TP Last administered on 10/04/21 20:08; Start 09/25/21 at 21:00; Stop 10/05/21 at 13:23; Status DC Midodrine (Proamatine) 2.5 mg PRN 1X PRN PO hypotension Last administered on 2/9/22at 08:56; Start 09/25/21 at 12:30 Oxycodone HCl (Roxicodone) 10 mg PRN Q6HRS PRN PO MODERATE-SEVERE PAIN Last administered on 10/10/21at 03:32; Start 09/25/21 at 12:30 Diclofenac Sodium (Voltaren) 1 crispin PRN TID PRN TP PAIN CONTROL; Start 09/25/21 at 13:15; Stop 09/25/21 at 18:37; Status DC Insulin Glargine (Lantus Syringe) 4 unit QHS SQ Last administered on 10/09/21at 20:58; Start 09/25/21 at 21:00 Losartan Potassium (Cozaar) 25 mg DAILY08 PO Last administered on 10/10/21at 07:55; Start 09/26/21 at 08:00 Polyethylene Glycol (miraLAX PACKET) 17 gm DAILY PO Last administered on 10/09/21at 08:33; Start 09/25/21 at 14:00 Pregabalin (Lyrica) 100 mg BID PO Last administered on 10/10/21at 07:56; Start 09/25/21 at 21:00 Acetaminophen (Tylenol) 650 mg PRN Q6HRS PRN PO MILD PAIN / TEMP > 100.3'F; Start 09/25/21 at 12:30; Status Cancel Al Hydroxide/Mg Hydroxide (Mylanta Plus Xs) 30 ml PRN Q3HRS PRN PO HEARTBURN / GAS; Start 09/25/21 at 12:30 Calcium Carbonate/ Glycine (Tums) 500 mg PRN Q3HRS PRN PO INDIGESTION; Start 09/25/21 at 12:30 Diphenhydramine HCl (Benadryl) 25 mg PRN Q6HRS PRN PO ITCHING; Start 09/25/21 at 12:30 Naloxone HCl (Narcan) 0.1 mg PRN Q2MIN PRN IV SEE COMMENTS; Start 09/25/21 at 12:30 Sodium Chloride (Normal Saline Flush) 3 ml QSHIFT PRN IV AFTER MEDS AND BLOOD DRAWS; Start 09/25/21 at 12:30 Potassium Chloride/Sodium Chloride 1,000 ml @ 75 mls/hr [id number] IV Last administered on 09/26/21at 07:00; Start 09/25/21 at 12:30; Stop 09/26/21 at 17:33; Status DC Magnesium Hydroxide (Milk Of Magnesia) 2,400 mg PRN Q12HR PRN PO CONSTIPATION; Start 09/25/21 at 12:30 Cefazolin Sodium (Ancef) 1 gm Q8H IVP Last administered on 09/26/21at 04:14; Start 09/25/21 at 18:00; Stop 09/26/21 at 10:01; Status DC Fentanyl Citrate (Fentanyl 2ml Vial) 50 mcg PRN Q2HR PRN IVP MODERATE TO SEVERE PAIN Last administered on 10/05/21at 22:46; Start 09/25/21 at 12:30 Dextrose (Dextrose 50%-Water Syringe) 12.5 gm PRN Q15MIN PRN IV SEE COMMENTS; Start 09/25/21 at 12:30 Dextrose (Iv Dextrose 5%) 250 ml PRN Q15MIN PRN IV SEE COMMENTS; Start 09/25/21 at 12:30 Gelatin (Gelfoam Size 100) 1 each STK-MED ONCE .ROUTE ; Start 09/25/21 at 06:37; Stop 09/25/21 at 14:55; Status DC Bupivacaine HCl/ Epinephrine Bitart (Sensorcain-Epi 0.5% Kit) 30 ml STK-MED ONCE .ROUTE ; Start 09/25/21 at 06:37; Stop 09/25/21 at 14:55; Status DC Ketorolac Tromethamine (Toradol Im) 60 mg STK-MED ONCE .ROUTE ; Start 09/25/21 at 06:37; Stop 09/25/21 at 14:55; Status DC Thrombin 20,000 unit STK-MED ONCE TP ; Start 09/25/21 at 06:38; Stop 09/25/21 at 14:55; Status DC Propofol (Diprivan) 200 mg STK-MED ONCE IV ; Start 09/25/21 at 05:54; Stop 09/25/21 at 14:57; Status DC Lidocaine HCl (Lidocaine Pf 2% Vial) 5 ml STK-MED ONCE .ROUTE ; Start 09/25/21 at 05:54; Stop 09/25/21 at 14:57; Status DC Ondansetron HCl (Zofran) 4 mg STK-MED ONCE .ROUTE ; Start 09/25/21 at 05:54; Stop 09/25/21 at 14:57; Status DC Phenylephrine HCl (Ramone-Synephrine Inj) 10 mg STK-MED ONCE .ROUTE ; Start 09/25/21 at 05:54; Stop 09/25/21 at 14:57; Status DC Propofol 50 ml @ As Directed STK-MED ONCE IV ; Start 09/25/21 at 05:54; Stop at 14:57; Status DC Dexamethasone Sodium Phosphate (Decadron) 4 mg STK-MED ONCE .ROUTE ; Start 09/25/21 at 05:54; Stop 09/25/21 at 14:57; Status DC Fentanyl Citrate (Fentanyl 2ml Vial) 100 mcg STK-MED ONCE .ROUTE ; Start 09/25/21 at 05:54; Stop 09/25/21 at 14:57; Status DC Succinylcholine Chloride (Anectine) 200 mg STK-MED ONCE .ROUTE ; Start 09/25/21 at 05:54; Stop 09/25/21 at 14:57; Status DC Remifentanil HCl (Ultiva) 1 mg STK-MED ONCE IV ; Start 09/25/21 at 05:54; Stop 09/25/21 at 14:57; Status DC Glycopyrrolate (Robinul) 1 mg STK-MED ONCE .ROUTE ; Start 09/25/21 at 07:11; Stop 09/25/21 at 15:01; Status DC Propofol 50 ml @ As Directed STK-MED ONCE IV ; Start 09/25/21 at 08:07; Stop 09/25/21 at 15:02; Status DC Ketamine HCl (Ketamine) 50 mg STK-MED ONCE .ROUTE ; Start 09/25/21 at 08:15; Stop 09/25/21 at 15:02; Status DC Hydromorphone HCl (Dilaudid) 2 mg STK-MED ONCE .ROUTE ; Start 09/25/21 at 10:44; Stop 09/25/21 at 15:03; Status DC Fentanyl Citrate (Fentanyl 2ml Vial) 100 mcg STK-MED ONCE .ROUTE ; Start 09/25/21 at 13:26; Stop 09/25/21 at 15:04; Status DC Morphine Sulfate (Morphine Sulfate) 2 mg STK-MED ONCE .ROUTE ; Start 09/25/21 at 14:04; Stop 09/25/21 at 15:05; Status DC Hydromorphone HCl (Dilaudid) 2 mg STK-MED ONCE .ROUTE ; Start 09/25/21 at 14:54; Stop 09/25/21 at 15:06; Status DC Menthol/Methyl Salicylate (Bengay Greaseless Cream) 1 crispin PRN Q30MIN PRN TP MUSCLE PAIN Last administered on 10/02/21at 21:03; Start 09/25/21 at 18:45 Mupirocin (Bactroban) 1 crispin BID NS Last administered on 10/09/21at 20:59; Start 09/26/21 at 09:00 Dexamethasone Sodium Phosphate (Decadron) 10 mg 1X ONCE IVP Last administered on 09/26/21at 07:31; Start 09/26/21 at 07:30; Stop 09/26/21 at 07:31; Status DC Cefazolin Sodium 1 gm/Sodium Chloride 1,000 ml @ 1,000 mls/hr 1X ONCE IRR Las t administered on 09/26/21at 11:52; Start 09/26/21 at 10:30; Stop 09/26/21 at 11:29; Status DC Cefazolin Sodium (Ancef) 1 gm STK-MED ONCE IVP ; Start 09/26/21 at 10:05; Stop 09/26/21 at 10:06; Status DC Lidocaine HCl (Lidocaine Pf 2% Vial) 5 ml STK-MED ONCE .ROUTE ; Start 09/26/21 at 10:18; Stop 09/26/21 at 10:18; Status DC Ondansetron HCl (Zofran) 4 mg STK-MED ONCE .ROUTE ; Start 09/26/21 at 10:18; Stop 09/26/21 at 10:18; Status DC Propofol (Diprivan) 200 mg STK-MED ONCE IV ; Start 09/26/21 at 10:18; Stop 09/26/21 at 10:19; Status DC Dexamethasone Sodium Phosphate (Decadron) 4 mg STK-MED ONCE .ROUTE ; Start 09/26/21 at 10:18; Stop 09/26/21 at 10:19; Status DC Sevoflurane (Ultane) 30 ml STK-MED ONCE IH ; Start 09/26/21 at 10:18; Stop 09/26/21 at 10:19; Status DC Fentanyl Citrate (Fentanyl 2ml Vial) 100 mcg STK-MED ONCE .ROUTE ; Start 09/26/21 at 10:19; Stop 09/26/21 at 10:19; Status DC Rocuronium Mckenzie (Zemuron) 50 mg STK-MED ONCE .ROUTE ; Start 09/26/21 at 10:19; Stop 09/26/21 at 10:19; Status DC Insulin Human Lispro (HumaLOG VIAL for OP,RR ONLY) 0-10 units PRN Q1HR PRN SQ PER PROTOCOL Last administered on 09/26/21at 15:11; Start 09/26/21 at 10:30; Stop 09/26/21 at 18:00; Status DC Sugammadex Sodium (Bridion) 200 mg 1X ONCE IVP Last administered on 09/26/21at 10:30; Start 09/26/21 at 10:30; Stop 09/26/21 at 10:31; Status DC Gelatin (Gelfoam Size 100) 1 each STK-MED ONCE .ROUTE Last administered on 09/26/21at 11:52; Start 09/26/21 at 10:30; Stop 09/26/21 at 10:30; Status DC Bupivacaine HCl/ Epinephrine Bitart (Sensorcain-Epi 0.5% Kit) 30 ml STK-MED ONCE .ROUTE ; Start 09/26/21 at 10:30; Stop 09/26/21 at 10:30; Status DC Ketorolac Tromethamine (Toradol Im) 60 mg STK-MED ONCE .ROUTE ; Start 09/26/21 at 10:30; Stop 09/26/21 at 10:30; Status DC Thrombin 20,000 unit STK-MED ONCE TP Last administered on 09/26/21at 11:52; Start 09/26/21 at 10:30; Stop 09/26/21 at 10:31; Status DC Cefazolin Sodium/ Dextrose 50 ml @ As Directed STK-MED ONCE IV ; Start 09/26/21 at 10:32; Stop 09/26/21 at 10:32; Status DC Vancomycin HCl 1 gm/Sodium Chloride 250 ml @ 250 mls/hr PREOP PRN PRN IV PRIOR TO PROCEDURE; Start 09/26/21 at 10:45; Stop 09/26/21 at 14:00; Status DC Cefazolin Sodium/ Dextrose 50 ml @ 100 mls/hr 1X ONCE IV Last administered on 09/26/21at 11:00; Start 09/26/21 at 11:00; Stop 09/26/21 at 11:29; Status DC Dexamethasone Sodium Phosphate (Decadron) 4 mg STK-MED ONCE .ROUTE ; Start 09/26/21 at 11:04; Stop 09/26/21 at 11:04; Status DC Glycopyrrolate (Robinul) 1 mg STK-MED ONCE .ROUTE ; Start 09/26/21 at 11:04; Stop 09/26/21 at 11:04; Status DC Hydromorphone HCl (Dilaudid) 2 mg STK-MED ONCE .ROUTE ; Start 09/26/21 at 11:56; Stop 09/26/21 at 11:56; Status DC Fentanyl Citrate (Fentanyl 2ml Vial) 25 mcg PRN Q5MIN PRN IVP MILD PAIN 1-3; Start 09/26/21 at 14:30; Stop 09/26/21 at 18:15; Status DC Fentanyl Citrate (Fentanyl 2ml Vial) 50 mcg PRN Q5MIN PRN IVP MODERATE PAIN 4- 6; Start 09/26/21 at 14:30; Stop 09/26/21 at 18:15; Status DC Morphine Sulfate (Morphine Sulfate) 1 mg PRN Q10MIN PRN IVP SEVERE PAIN 7-10; Start 09/26/21 at 14:30; Stop 09/26/21 at 18:15; Status DC Ringer's Solution 1,000 ml @ 30 mls/hr Q24H IV Last administered on 09/26/21at 15:18; Start 09/26/21 at 14:30; Stop 09/26/21 at 21:00; Status DC Hydromorphone HCl (Dilaudid) 0.5 mg PRN Q10MIN PRN IVP SEVERE PAIN 7-10, 2nd CHOICE; Start 09/26/21 at 14:30; Stop 09/26/21 at 18:15; Status DC Prochlorperazine Edisylate (Compazine) 5 mg PACU PRN PRN IVP NAUSEA, MRX1; Start 09/26/21 at 14:30; Stop 09/26/21 at 21:00; Status DC Fentanyl Citrate (Fentanyl 2ml Vial) 100 mcg STK-MED ONCE .ROUTE ; Start 09/26/21 at 14:23; Stop 09/26/21 at 14:25; Status DC Fentanyl Citrate (Fentanyl 2ml Vial) 25 mcg PRN Q5MIN PRN IVP MILD PAIN 1-3; Start 09/26/21 at 14:30; Stop 09/27/21 at 14:29; Status UNV Fentanyl Citrate (Fentanyl 2ml Vial) 50 mcg PRN Q5MIN PRN IVP MODERATE PAIN 4- 6; Start 09/26/21 at 14:30; Stop 09/27/21 at 14:29; Status UNV Morphine Sulfate (Morphine Sulfate) 1 mg PRN Q10MIN PRN IVP SEVERE PAIN 7-10; Start 09/26/21 at 14:30; Stop 09/27/21 at 14:29; Status UNV Ringer's Solution 1,000 ml @ 30 mls/hr Q24H IV ; Start 09/26/21 at 14:30; Stop 09/27/21 at 02:29; Status UNV Hydromorphone HCl (Dilaudid) 0.5 mg PRN Q10MIN PRN IVP SEVERE PAIN 7-10, 2nd CHOICE; Start 09/26/21 at 14:30; Stop 09/27/21 at 14:29; Status UNV Prochlorperazine Edisylate (Compazine) 5 mg PACU PRN PRN IVP NAUSEA, MRX1; Start 09/26/21 at 14:30; Stop 09/27/21 at 14:29; Status UNV Dexamethasone Sodium Phosphate (Decadron) 4 mg Q6HRS IVP Last administered on 09/28/21at 05:06; Start 09/26/21 at 18:00; Stop 09/28/21 at 06:00; Status DC Sodium Chloride 1,000 ml @ 100 mls/hr Q10H IV Last administered on 10/05/21at 06:41; Start 09/26/21 at 17:30; Stop 10/05/21 at 13:48; Status DC Cefazolin Sodium (Ancef) 1 gm Q8HRS IVP ; Start 09/27/21 at 06:00; Stop 09/27/21 at 05:47; Status DC Vancomycin HCl 1 gm/Sodium Chloride 250 ml @ 166.667 mls/hr 1X ONCE IV Last administered on 09/27/21at 06:27; Start 09/27/21 at 06:00; Stop 09/27/21 at 07:29; Status DC Gadoterate Meglumine (Clariscan) 19 ml 1X ONCE IVP Last administered on 09/29/21at 10:32; Start 09/29/21 at 08:15; Stop 09/29/21 at 08:17; Status DC Bisacodyl (Dulcolax Supp) 10 mg PRN DAILY PRN [place] CONSTIPATION; Start 09/29/21 at 14:15 Lactulose (Lactulose) 20 gm PRN DAILY PRN PO CONSTIPATION, 2nd choice Last administered on 10/01/21at 08:35; Start 09/29/21 at 14:30 Ascorbic Acid (Vitamin C) 500 mg DAILY PO Last administered on 10/10/21at 07:56; Start 10/02/21 at 10:00 Levofloxacin/ Dextrose 100 ml @ 100 mls/hr Q24H IV Last administered on 10/02/21at 12:15; Start 10/02/21 at 12:00; Stop 10/03/21 at 08:57; Status DC Levofloxacin/ Dextrose 50 ml @ 50 mls/hr Q24H IV Last administered on 10/06/21at 15:19; Start 10/03/21 at 12:00; Stop 10/06/21 at 23:00; Status DC Lactobacillus Rhamnosus (Culturelle) 1 cap BID PO Last administered on 10/10/21at 07:54; Start 10/03/21 at 21:00 Lidocaine (Lidoderm) 1 patch QHS TP Last administered on 10/09/21at 20:59; Start 10/04/21 at 22:00 Levofloxacin (Levaquin) 250 mg DAILY06 PO Last administered on 10/10/21at 04:44; Start 10/07/21 at 06:00; Stop 10/11/21 at 12:00 Active Scripts Active Dok (Docusate Sodium) 100 Mg Capsule 100 Mg PO PRN BID PRN 30 Days Tylenol (Acetaminophen) 325 Mg Tablet 650 Mg PO PRN Q4HRS PRN 30 Days Valium (Diazepam) 5 Mg Tablet 5 Mg PO TID Atorvastatin Calcium 10 Mg Tablet 10 Mg PO QHS Reported Midodrine Hcl 2.5 Mg Tablet 2.5 Mg PO PRN 1X PRN Aspirin 81 Mg Tab.chew 81 Mg PO DAILY Baclofen 10 Mg Tablet 10 Mg PO BID Lyrica (Pregabalin) 100 Mg Capsule 100 Mg PO BID 30 Days Polyethylene Glycol 3350 2,500 Gm Powder 17 Gm PO DAILY 30 Days Micatin (Miconazole Nitrate) 14 Gm Cream..g. 1 Crispin TP TID Tradjenta (Linagliptin) 5 Mg Tablet 5 Mg PO DAILY Lidocaine PATCH (Lidocaine) 1 Each Adh..patch 1 Each TP DAILY REMOVE AFTER 12 HOURS Levemir (Insulin Detemir) 100 Unit/1 Ml Vial 4 Unit SQ HS Hydroxyzine Hcl 25 Mg Tablet 25 Mg PO PRN Q6HRS PRN Fluticasone Propionate Nasal [place] (Fluticasone Propionate) 16 Gm [place].susp 2 [place] NS DAILY Diclofenac Sodium 100 Gm Gel..gram. 100 Gm TP PRN TID PRN Losartan Potassium 100 Mg Tablet 25 Tab PO DAILY08 Vitals/I & O Vital Sign - Last 24 Hours 10/09/21 10/09/21 10/09/21 10/09/21 12:00 16:03 16:05 16:33 Temp 97.9 97.9 97.9 97.9 Pulse 80 87 Resp 16 18 16 16 B/P (MAP) 138/65 (89) 129/66 (87) Pulse Ox 97 97 97 97 O2 Delivery Room Air Room Air Room Air Room Air O2 Flow Rate 2.0 2.0 10/09/21 10/09/21 10/09/21 10/09/21 20:00 20:00 21:36 22:06 Temp 98.2 98.2 Pulse 74 Resp 20 24 B/P (MAP) 121/62 (81) Pulse Ox 99 99 99 O2 Delivery Room Air Room Air Room Air Room Air O2 Flow Rate 2.0 10/10/21 10/10/21 10/10/21 10/10/21 00:00 03:32 04:00 04:02 Temp 98.4 98.5 98.4 98.5 Pulse 72 77 Resp 20 16 20 B/P (MAP) 96/44 (61) 96/59 (71) Pulse Ox 99 99 97 97 O2 Delivery Room Air Room Air Room Air Room Air O2 Flow Rate 2.0 2.0 10/10/21 10/10/21 10/10/21 07:55 08:05 08:08 Temp 97.7 97.7 Pulse 77 73 Resp 18 B/P (MAP) 96/59 137/66 (89) Pulse Ox 98 O2 Delivery Room Air Room Air Intake and Output 10/09/21 10/09/21 10/10/21 15:00 23:00 07:00 Intake Total 900 ml 500 ml 1000 ml Output Total 400 ml 1375 ml 550 ml Balance 500 ml -875 ml 450 ml Justifications for Admission Other Justification uncontrolled diabetes TERRY JURADO MD Oct 10, 2021 10:50
[2021-10-10 12:00] VITALS: BP 123/72
--- NOTE | 2021-10-10 16:02 | DS ---
DATE OF DISCHARGE: 10/10/2021 ADMISSION DIAGNOSES: Cervical stenosis, spondylolysis, myelopathy. DISCHARGE DIAGNOSES: 1. Postoperative cervical laminectomy C3 through C7 with lateral mass fusion of C3 through C7. 2. Postoperative cervical exploration with evacuation of cervical epidural hematoma. HOSPITAL COURSE: The patient is a pleasant middle-aged male who fell a couple months ago and since then has had cervical disease. He has had a couple of cervical laminectomies over the past couple months. After this last one on 09/25, he had to go back to the OR the next day because he had worsening symptoms. They discovered a hematoma, which was evacuated. For the last couple weeks, we have been observing him in the ICU. We have had him working with physical therapy. He is doing much better. Today, I saw and examined him. He wants to go to rehab. We plan to discharge to [facility] at [facility]. DISPOSITION: senior care. ACTIVITY: As tolerated. DIET: Low sodium. DISCHARGE MEDICATIONS: Please see the MRAD. P.r.n. Tylenol, aspirin 81 a day, atorvastatin 10 a day, baclofen 10 b.i.d., Valium 5 t.i.d., diclofenac 100 p.r.n., docusate, Flonase, hydralazine 25 q.6 p.r.n., insulin 4 units at bedtime of Levemir, lidocaine patches, Tradjenta 5 a day, losartan 25 a day, miconazole cream, midodrine 2.5 b.i.d. p.r.n., polyethylene glycol and Lyrica 100 b.i.d. TOTAL TIME: 32 minutes. LILIAN/ISAAC DR: MARCO/tay TID: [id number]
[2021-10-10 16:10] VITALS: BP 147/82
--- NOTE | 2021-10-10 17:10 | PDOC ---
PROGRESS NOTES Date of Service DATE: 10/10/21 TIME: 17:06 Subjective Subjective POD #14 S/P Evacuation of epidural hematoma, s/p cervical laminectomy and fusion 09/25/21 pain well controlled shortness of breath with talking has improved has been sitting up in bed, chair position for an hour and a half c/o of ongoing right shoulder pain when turning to the right side Objective Objective Vital Signs Date Time Temp Pulse Resp B/P (MAP) Pulse Ox O2 Delivery O2 Flow Rate FiO2 10/10/21 16:10 97.9 80 16 147/82 (103) 95 Room Air 97.9 10/10/21 11:29 2.0 Intake and Output 10/10/21 07:00 Intake Total 2400 ml Output Total 2325 ml Balance 75 ml Intake Oral 2400 ml Output Urine Total 2325 ml Physical Exam General: Alert, Oriented X3, Cooperative, No acute distress Neuro: Normal speech, Other (sensation intact in upper and lower extremities, moves upper extremities with 3/5 strength, hand grasps slightly stronger- finger extension improved, moves right great toe and left great toe today) Skin: Other (favio removed, incision is healing well, no erythema or drainge noted) Plan Plan of Care continue PT/ OT continue current plan SCDs arrangements being made for rehab/ SNF placement D/W RN Comment Review of Relevant I have reviewed the following items michelle (where applicable) has been applied. Labs Laboratory Tests Test 10/09/21 10:50 Coronavirus (COVID-19)(PCR) Not detected (NOT DETECTD) Microbiology 10/01/21 Urine Culture - Final, Complete Escherichia Coli Escherichia Coli#2 Medications Current Medications Fentanyl Citrate (Fentanyl 2ml Vial) 25 mcg PRN Q5MIN PRN IVP MILD PAIN 1-3; Start 09/25/21 at 06:00; Stop 09/25/21 at 20:00; Status DC Fentanyl Citrate (Fentanyl 2ml Vial) 50 mcg PRN Q5MIN PRN IVP MODERATE PAIN 4-6 Last administered on 09/25/21at 13:48; Start 09/25/21 at 06:00; Stop 09/25/21 at 20:00; Status DC Morphine Sulfate (Morphine Sulfate) 1 mg PRN Q10MIN PRN IVP SEVERE PAIN 7-10 Last administered on 09/25/21at 14:21; Start 09/25/21 at 06:00; Stop 09/25/21 at 20:00; Status DC Ringer's Solution 1,000 ml @ 30 mls/hr Q24H IV Last administered on 09/25/21at 12:54; Start 09/25/21 at 06:00; Stop 09/25/21 at 17:59; Status DC Hydromorphone HCl (Dilaudid) 0.5 mg PRN Q10MIN PRN IVP SEVERE PAIN 7-10, 2nd CHOICE Last administered on 09/25/21at 16:53; Start 09/25/21 at 06:00; Stop 09/25/21 at 20:00; Status DC Prochlorperazine Edisylate (Compazine) 5 mg PACU PRN PRN IVP NAUSEA, MRX1; Start 09/25/21 at 06:00; Stop 09/25/21 at 20:00; Status DC Cefazolin Sodium 1 gm/Sodium Chloride 1,000 ml @ 1,000 mls/hr 1X ONCE IRR Last administered on 09/25/21at 10:14; Start 09/25/21 at 06:00; Stop 09/25/21 at 06:59; Status DC Cefazolin Sodium/ Dextrose 50 ml @ 100 mls/hr 1X PREOP PRN IV PRIOR TO PROCEDURE Last administered on 09/25/21at 09:30; Start 09/25/21 at 06:00; Stop 09/25/21 at 13:39; Status DC Insulin Human Lispro (HumaLOG VIAL for OP,RR ONLY) 0-10 units PRN Q1HR PRN SQ PER PROTOCOL Last administered on 09/25/21at 17:01; Start 09/25/21 at 07:00; Stop 09/25/21 at 18:00; Status DC Bupivacaine HCl/ Epinephrine Bitart (Sensorcain-Epi 0.5% Kit) 30 ml STK-MED ONCE INJ Last administered on 09/25/21at 10:14; Start 09/25/21 at 10:14; Stop 09/25/21 at 10:30; Status DC Ketorolac Tromethamine (Toradol Im) 60 mg STK-MED ONCE INJ Last administered on 09/25/21at 10:14; Start 09/25/21 at 10:14; Stop 09/25/21 at 10:30; Status DC Thrombin 20,000 unit STK-MED ONCE TP Last administered on 09/25/21 10:14; St art 09/25/21 at 10:14; Stop 09/25/21 at 10:30; Status DC Gelatin (Gelfoam Size 100) 1 each STK-MED ONCE TP Last administered on 09/25/21 10:14; Start 09/25/21 at 10:14; Stop 09/25/21 at 10:30; Status DC Acetaminophen (Tylenol) 650 mg PRN Q4HRS PRN PO TEMP OVER 100.4F OR MILD PAIN Last administered on 10/02/21 14:14; Start 09/25/21 at 12:30 Aspirin (Aspirin Chewable) 81 mg DAILY PO Last administered on 09/26/21 08:30; Start 09/26/21 at 09:00; Stop 09/28/21 at 17:19; Status DC Atorvastatin Calcium (Lipitor) 10 mg QHS PO Last administered on 10/09/21 20:58; Start 09/25/21 at 21:00 Baclofen (Lioresal) 10 mg BID PO Last administered on 10/10/21 07:56; Start 09/25/21 at 21:00 Diazepam (Valium) 5 mg TID PO Last administered on 10/10/21 07:55; Start 09/25/21 at 14:00 Docusate Sodium (Colace) 100 mg PRN BID PRN PO HARD STOOLS Last administered on 10/01/21 20:28; Start 09/25/21 at 12:30 Fluticasone Propionate (Flonase) 2 spray DAILY NS Last administered on 10/10/21 07:56; Start 09/26/21 at 09:00 Hydroxyzine HCl (Atarax) 25 mg PRN Q6HRS PRN PO itching Last administered on 10/10/21 04:44; Start 09/25/21 at 12:30 Lidocaine (Lidoderm) 1 patch QHS TP Last administered on 10/03/21 23:31; Start 09/25/21 at 20:00; Stop 10/05/21 at 01:01; Status DC Linagliptin (Tradjenta) 5 mg DAILY PO Last administered on 10/10/21at 07:54; Start 09/25/21 at 13:00 Miconazole Nitrate (Monistat-Derm) 1 crispin TID TP Last administered on 10/04/21at 20:08; Start 09/25/21 at 21:00; Stop 10/05/21 at 13:23; Status DC Midodrine (Proamatine) 2.5 mg PRN 1X PRN PO hypotension Last administered on 09/27/21at 08:56; Start 09/25/21 at 12:30 Oxycodone HCl (Roxicodone) 10 mg PRN Q6HRS PRN PO MODERATE-SEVERE PAIN Last administered on 10/10/21at 10:59; Start 09/25/21 at 12:30 Diclofenac Sodium (Voltaren) 1 crispin PRN TID PRN TP PAIN CONTROL; Start 09/25/21 at 13:15; Stop 09/25/21 at 18:37; Status DC Insulin Glargine (Lantus Syringe) 4 unit QHS SQ Last administered on 10/09/21at 20:58; Start 09/25/21 at 21:00 Losartan Potassium (Cozaar) 25 mg DAILY08 PO Last administered on 10/10/21at 07:55; Start 09/26/21 at 08:00 Polyethylene Glycol (miraLAX PACKET) 17 gm DAILY PO Last administered on 10/09/21at 08:33; Start 09/25/21 at 14:00 Pregabalin (Lyrica) 100 mg BID PO Last administered on 10/10/21at 07:56; Start 09/25/21 at 21:00 Acetaminophen (Tylenol) 650 mg PRN Q6HRS PRN PO MILD PAIN / TEMP > 100.3'F; Start 09/25/21 at 12:30; Status Cancel Al Hydroxide/Mg Hydroxide (Mylanta Plus Xs) 30 ml PRN Q3HRS PRN PO HEARTBURN / GAS; Start 09/25/21 at 12:30 Calcium Carbonate/ Glycine (Tums) 500 mg PRN Q3HRS PRN PO INDIGESTION; Start 09/25/21 at 12:30 Diphenhydramine HCl (Benadryl) 25 mg PRN Q6HRS PRN PO ITCHING; Start 09/25/21 at 12:30 Naloxone HCl (Narcan) 0.1 mg PRN Q2MIN PRN IV SEE COMMENTS; Start 09/25/21 at 12:30 Sodium Chloride (Normal Saline Flush) 3 ml QSHIFT PRN IV AFTER MEDS AND BLOOD DRAWS; Start 09/25/21 at 12:30 Potassium Chloride/Sodium Chloride 1,000 ml @ 75 mls/hr [id number] IV Last administered on 09/26/21at 07:00; Start 09/25/21 at 12:30; Stop 09/26/21 at 17:33; Status DC Magnesium Hydroxide (Milk Of Magnesia) 2,400 mg PRN Q12HR PRN PO CONSTIPATION; Start 09/25/21 at 12:30 Cefazolin Sodium (Ancef) 1 gm Q8H IVP Last administered on 09/26/21at 04:14; Start 09/25/21 at 18:00; Stop 09/26/21 at 10:01; Status DC Fentanyl Citrate (Fentanyl 2ml Vial) 50 mcg PRN Q2HR PRN IVP MODERATE TO SEVERE PAIN Last administered on 10/05/21at 22:46; Start 09/25/21 at 12:30 Dextrose (Dextrose 50%-Water Syringe) 12.5 gm PRN Q15MIN PRN IV SEE COMMENTS; Start 09/25/21 at 12:30 Dextrose (Iv Dextrose 5%) 250 ml PRN Q15MIN PRN IV SEE COMMENTS; Start 09/25/21 at 12:30 Gelatin (Gelfoam Size 100) 1 each STK-MED ONCE .ROUTE ; Start 09/25/21 at 06:37; Stop 09/25/21 at 14:55; Status DC Bupivacaine HCl/ Epinephrine Bitart (Sensorcain-Epi 0.5% Kit) 30 ml STK-MED ONCE .ROUTE ; Start 09/25/21 at 06:37; Stop 09/25/21 at 14:55; Status DC Ketorolac Tromethamine (Toradol Im) 60 mg STK-MED ONCE .ROUTE ; Start 09/25/21 at 06:37; Stop 09/25/21 at 14:55; Status DC Thrombin 20,000 unit STK-MED ONCE TP ; Start 09/25/21 at 06:38; Stop 09/25/21 at 14:55; Status DC Propofol (Diprivan) 200 mg STK-MED ONCE IV ; Start 09/25/21 at 05:54; Stop 09/25/21 at 14:57; Status DC Lidocaine HCl (Lidocaine Pf 2% Vial) 5 ml STK-MED ONCE .ROUTE ; Start 09/25/21 at 05:54; Stop 09/25/21 at 14:57; Status DC Ondansetron HCl (Zofran) 4 mg STK-MED ONCE .ROUTE ; Start 09/25/21 at 05:54; Stop 09/25/21 at 14:57; Status DC Phenylephrine HCl (Ramone-Synephrine Inj) 10 mg STK-MED ONCE .ROUTE ; Start 09/25/21 at 05:54; Stop 09/25/21 at 14:57; Status DC Propofol 50 ml @ As Directed STK-MED ONCE IV ; Start 09/25/21 at 05:54; Stop 09/25/21 at 14:57; Status DC Dexamethasone Sodium Phosphate (Decadron) 4 mg STK-MED ONCE .ROUTE ; Start 09/25/21 at 05:54; Stop 09/25/21 at 14:57; Status DC Fentanyl Citrate (Fentanyl 2ml Vial) 100 mcg STK-MED ONCE .ROUTE ; Start 09/25/21 at 05:54; Stop 09/25/21 at 14:57; Status DC Succinylcholine Chloride (Anectine) 200 mg STK-MED ONCE .ROUTE ; Start 09/25/21 at 05:54; Stop 09/25/21 at 14:57; Status DC Remifentanil HCl (Ultiva) 1 mg STK-MED ONCE IV ; Start 09/25/21 at 05:54; Stop 09/25/21 at 14:57; Status DC Glycopyrrolate (Robinul) 1 mg STK-MED ONCE .ROUTE ; Start 09/25/21 at 07:11; Stop 09/25/21 at 15:01; Status DC Propofol 50 ml @ As Directed STK-MED ONCE IV ; Start 09/25/21 at 08:07; Stop 09/25/21 at 15:02; Status DC Ketamine HCl (Ketamine) 50 mg STK-MED ONCE .ROUTE ; Start 09/25/21 at 08:15; Stop 09/25/21 at 15:02; Status DC Hydromorphone HCl (Dilaudid) 2 mg STK-MED ONCE .ROUTE ; Start 09/25/21 at 10:44; Stop 09/25/21 at 15:03; Status DC Fentanyl Citrate (Fentanyl 2ml Vial) 100 mcg STK-MED ONCE .ROUTE ; Start 09/25/21 at 13:26; Stop 09/25/21 at 15:04; Status DC Morphine Sulfate (Morphine Sulfate) 2 mg STK-MED ONCE .ROUTE ; Start 09/25/21 at 14:04; Stop 09/25/21 at 15:05; Status DC Hydromorphone HCl (Dilaudid) 2 mg STK-MED ONCE .ROUTE ; Start 09/25/21 at 14:54; Stop 09/25/21 at 15:06; Status DC Menthol/Methyl Salicylate (Bengay Greaseless Cream) 1 crispin PRN Q30MIN PRN TP MUSCLE PAIN Last administered on 10/02/21at 21:03; Start 09/25/21 at 18:45 Mupirocin (Bactroban) 1 crispin BID NS Last administered on 10/09/21at 20:59; Start 09/26/21 at 09:00 Dexamethasone Sodium Phosphate (Decadron) 10 mg 1X ONCE IVP Last administered on 09/26/21at 07:31; Start 09/26/21 at 07:30; Stop 09/26/21 at 07:31; Status DC Cefazolin Sodium 1 gm/Sodium Chloride 1,000 ml @ 1,000 mls/hr 1X ONCE IRR Last administered on 09/26/21at 11:52; Start 09/26/21 at 10:30; Stop 09/26/21 at 11:29; Status DC Cefazolin Sodium (Ancef) 1 gm STK-MED ONCE IVP ; Start 09/26/21 at 10:05; Stop 09/26/21 at 10:06; Status DC Lidocaine HCl (Lidocaine Pf 2% Vial) 5 ml STK-MED ONCE .ROUTE ; Start 09/26/21 at 10:18; Stop 09/26/21 at 10:18; Status DC Ondansetron HCl (Zofran) 4 mg STK-MED ONCE .ROUTE ; Start 09/26/21 at 10:18; Stop 09/26/21 at 10:18; Status DC Propofol (Diprivan) 200 mg STK-MED ONCE IV ; Start 09/26/21 at 10:18; Stop 09/26/21 at 10:19; Status DC Dexamethasone Sodium Phosphate (Decadron) 4 mg STK-MED ONCE .ROUTE ; Start 09/26/21 at 10:18; Stop 09/26/21 at 10:19; Status DC Sevoflurane (Ultane) 30 ml STK-MED ONCE IH ; Start 09/26/21 at 10:18; Stop 09/26/21 at 10:19; Status DC Fentanyl Citrate (Fentanyl 2ml Vial) 100 mcg STK-MED ONCE .ROUTE ; Start 09/26/21 at 10:19; Stop 09/26/21 at 10:19; Status DC Rocuronium Sublimity (Zemuron) 50 mg STK-MED ONCE .ROUTE ; Start 09/26/21 at 10:19; Stop 09/26/21 at 10:19; Status DC Insulin Human Lispro (HumaLOG VIAL for OP,RR ONLY) 0-10 units PRN Q1HR PRN SQ PER PROTOCOL Last administered on 09/26/21at 15:11; Start 09/26/21 at 10:30; Stop 09/26/21 at 18:00; Status DC Sugammadex Sodium (Bridion) 200 mg 1X ONCE IVP Last administered on 09/26/21at 10:30; Start 09/26/21 at 10:30; Stop 09/26/21 at 10:31; Status DC Gelatin (Gelfoam Size 100) 1 each STK-MED ONCE .ROUTE Last administered on 09/26/21at 11:52; Start 09/26/21 at 10:30; Stop 09/26/21 at 10:30; Status DC Bupivacaine HCl/ Epinephrine Bitart (Sensorcain-Epi 0.5% Kit) 30 ml STK-MED ONCE .ROUTE ; Start 09/26/21 at 10:30; Stop 09/26/21 at 10:30; Status DC Ketorolac Tromethamine (Toradol Im) 60 mg STK-MED ONCE .ROUTE ; Start 09/26/21 at 10:30; Stop 09/26/21 at 10:30; Status DC Thrombin 20,000 unit STK-MED ONCE TP Last administered on 09/26/21at 11:52; Start 09/26/21 at 10:30; Stop 09/26/21 at 10:31; Status DC Cefazolin Sodium/ Dextrose 50 ml @ As Directed STK-MED ONCE IV ; Start 09/26/21 at 10:32; Stop 09/26/21 at 10:32; Status DC Vancomycin HCl 1 gm/Sodium Chloride 250 ml @ 250 mls/hr PREOP PRN PRN IV PRIOR TO PROCEDURE; Start 09/26/21 at 10:45; Stop 09/26/21 at 14:00; Status DC Cefazolin Sodium/ Dextrose 50 ml @ 100 mls/hr 1X ONCE IV Last administered on 09/26/21at 11:00; Start 09/26/21 at 11:00; Stop 09/26/21 at 11:29; Status DC Dexamethasone Sodium Phosphate (Decadron) 4 mg STK-MED ONCE .ROUTE ; Start 09/26/21 at 11:04; Stop 09/26/21 at 11:04; Status DC Glycopyrrolate (Robinul) 1 mg STK-MED ONCE .ROUTE ; Start 09/26/21 at 11:04; Stop 09/26/21 at 11:04; Status DC Hydromorphone HCl (Dilaudid) 2 mg STK-MED ONCE .ROUTE ; Start 09/26/21 at 11:56; Stop 09/26/21 at 11:56; Status DC Fentanyl Citrate (Fentanyl 2ml Vial) 25 mcg PRN Q5MIN PRN IVP MILD PAIN 1-3; Start 09/26/21 at 14:30; Stop 09/26/21 at 18:15; Status DC Fentanyl Citrate (Fentanyl 2ml Vial) 50 mcg PRN Q5MIN PRN IVP MODERATE PAIN 4- 6; Start 09/26/21 at 14:30; Stop 09/26/21 at 18:15; Status DC Morphine Sulfate (Morphine Sulfate) 1 mg PRN Q10MIN PRN IVP SEVERE PAIN 7-10; Start 09/26/21 at 14:30; Stop 09/26/21 at 18:15; Status DC Ringer's Solution 1,000 ml @ 30 mls/hr Q24H IV Last administered on 09/26/21at 15:18; Start 09/26/21 at 14:30; Stop 09/26/21 at 21:00; Status DC Hydromorphone HCl (Dilaudid) 0.5 mg PRN Q10MIN PRN IVP SEVERE PAIN 7-10, 2nd CHOICE; Start 09/26/21 at 14:30; Stop 09/26/21 at 18:15; Status DC Prochlorperazine Edisylate (Compazine) 5 mg PACU PRN PRN IVP NAUSEA, MRX1; Start 09/26/21 at 14:30; Stop 09/26/21 at 21:00; Status DC Fentanyl Citrate (Fentanyl 2ml Vial) 100 mcg STK-MED ONCE .ROUTE ; Start 09/26/21 at 14:23; Stop 09/26/21 at 14:25; Status DC Fentanyl Citrate (Fentanyl 2ml Vial) 25 mcg PRN Q5MIN PRN IVP MILD PAIN 1-3; Start 09/26/21 at 14:30; Stop 09/27/21 at 14:29; Status UNV Fentanyl Citrate (Fentanyl 2ml Vial) 50 mcg PRN Q5MIN PRN IVP MODERATE PAIN 4- 6; Start 09/26/21 at 14:30; Stop 09/27/21 at 14:29; Status UNV Morphine Sulfate (Morphine Sulfate) 1 mg PRN Q10MIN PRN IVP SEVERE PAIN 7-10; Start 09/26/21 at 14:30; Stop 09/27/21 at 14:29; Status UNV Ringer's Solution 1,000 ml @ 30 mls/hr Q24H IV ; Start 09/26/21 at 14:30; Stop 09/27/21 at 02:29; Status UNV Hydromorphone HCl (Dilaudid) 0.5 mg PRN Q10MIN PRN IVP SEVERE PAIN 7-10, 2nd CHOICE; Start 09/26/21 at 14:30; Stop 09/27/21 at 14:29; Status UNV Prochlorperazine Edisylate (Compazine) 5 mg PACU PRN PRN IVP NAUSEA, MRX1; Start 09/26/21 at 14:30; Stop 09/27/21 at 14:29; Status UNV Dexamethasone Sodium Phosphate (Decadron) 4 mg Q6HRS IVP Last administered on 09/28/21at 05:06; Start 09/26/21 at 18:00; Stop 09/28/21 at 06:00; Status DC Sodium Chloride 1,000 ml @ 100 mls/hr Q10H IV Last administered on 10/05/21at 06:41; Start 09/26/21 at 17:30; Stop 10/05/21 at 13:48; Status DC Cefazolin Sodium (Ancef) 1 gm Q8HRS IVP ; Start 09/27/21 at 06:00; Stop 09/27/21 at 05:47; Status DC Vancomycin HCl 1 gm/Sodium Chloride 250 ml @ 166.667 mls/hr 1X ONCE IV Last administered on 09/27/21at 06:27; Start 09/27/21 at 06:00; Stop 09/27/21 at 07:29; Status DC Gadoterate Meglumine (Clariscan) 19 ml 1X ONCE IVP Last administered on 09/29/21at 10:32; Start 09/29/21 at 08:15; Stop 09/29/21 at 08:17; Status DC Bisacodyl (Dulcolax Supp) 10 mg PRN DAILY PRN CO CONSTIPATION; Start 09/29/21 at 14:15 Lactulose (Lactulose) 20 gm PRN DAILY PRN PO CONSTIPATION, 2nd choice Last a dministered on 10/01/21at 08:35; Start 09/29/21 at 14:30 Ascorbic Acid (Vitamin C) 500 mg DAILY PO Last administered on 10/10/21at 07:56; Start 10/02/21 at 10:00 Levofloxacin/ Dextrose 100 ml @ 100 mls/hr Q24H IV Last administered on 10/02/21at 12:15; Start 10/02/21 at 12:00; Stop 10/03/21 at 08:57; Status DC Levofloxacin/ Dextrose 50 ml @ 50 mls/hr Q24H IV Last administered on 10/06/21at 15:19; Start 10/03/21 at 12:00; Stop 10/06/21 at 23:00; Status DC Lactobacillus Rhamnosus (Culturelle) 1 cap BID PO Last administered on 10/10/21at 07:54; Start 10/03/21 at 21:00 Lidocaine (Lidoderm) 1 patch QHS TP Last administered on 10/09/21at 20:59; Start 10/04/21 at 22:00 Levofloxacin (Levaquin) 250 mg DAILY06 PO Last administered on 10/10/21at 04:44; Start 10/07/21 at 06:00; Stop 10/11/21 at 12:00 Active Scripts Active Dok (Docusate Sodium) 100 Mg Capsule 100 Mg PO PRN BID PRN 30 Days Tylenol (Acetaminophen) 325 Mg Tablet 650 Mg PO PRN Q4HRS PRN 30 Days Valium (Diazepam) 5 Mg Tablet 5 Mg PO TID Atorvastatin Calcium 10 Mg Tablet 10 Mg PO QHS Reported Midodrine Hcl 2.5 Mg Tablet 2.5 Mg PO PRN 1X PRN Aspirin 81 Mg Tab.chew 81 Mg PO DAILY Baclofen 10 Mg Tablet 10 Mg PO BID Lyrica (Pregabalin) 100 Mg Capsule 100 Mg PO BID 30 Days Polyethylene Glycol 3350 2,500 Gm Powder 17 Gm PO DAILY 30 Days Micatin (Miconazole Nitrate) 14 Gm Cream..g. 1 Crispin TP TID Tradjenta (Linagliptin) 5 Mg Tablet 5 Mg PO DAILY Lidocaine PATCH (Lidocaine) 1 Each Adh..patch 1 Each TP DAILY REMOVE AFTER 12 HOURS Levemir (Insulin Detemir) 100 Unit/1 Ml Vial 4 Unit SQ HS Hydroxyzine Hcl 25 Mg Tablet 25 Mg PO PRN Q6HRS PRN Fluticasone Propionate Nasal Ravia (Fluticasone Propionate) 16 Gm Ravia.susp 2 Ravia NS DAILY Diclofenac Sodium 100 Gm Gel..gram. 100 Gm TP PRN TID PRN Losartan Potassium 100 Mg Tablet 25 Tab PO DAILY08 Vitals/I & O Vital Sign - Last 24 Hours 10/09/21 10/09/21 10/09/21 10/09/21 20:00 20:00 21:36 22:06 Temp 98.2 98.2 Pulse 74 Resp 20 24 B/P (MAP) 121/62 (81) Pulse Ox 99 99 99 O2 Delivery Room Air Room Air Room Air Room Air O2 Flow Rate 2.0 10/10/21 10/10/21 10/10/21 10/10/21 00:00 03:32 04:00 04:02 Temp 98.4 98.5 98.4 98.5 Pulse 72 77 Resp 20 16 20 B/P (MAP) 96/44 (61) 96/59 (71) Pulse Ox 99 99 97 97 O2 Delivery Room Air Room Air Room Air Room Air O2 Flow Rate 2.0 2.0 10/10/21 10/10/21 10/10/21 10/10/21 07:55 08:05 08:08 10:59 Temp 97.7 97.7 Pulse 77 73 Resp 18 B/P (MAP) 96/59 137/66 (89) Pulse Ox 98 98 O2 Delivery Room Air Room Air Room Air O2 Flow Rate 2.0 10/10/21 10/10/21 10/10/21 11:29 12:00 16:10 Temp 98.3 97.9 98.3 97.9 Pulse 77 80 Resp 16 16 16 B/P (MAP) 123/72 (89) 147/82 (103) Pulse Ox 97 97 95 O2 Delivery Room Air Room Air Room Air O2 Flow Rate 2.0 Intake and Output 10/09/21 10/09/21 10/10/21 15:00 23:00 07:00 Intake Total 900 ml 500 ml 1000 ml Output Total 400 ml 1375 ml 550 ml Balance 500 ml -875 ml 450 ml Justifications for Admission Other Justification uncontrolled diabetes TODD RIVERA APRN Oct 10, 2021 17:10
[2021-10-10 20:00] VITALS: BP 136/72
[2021-10-10] MEDS: LIDOCAINE (700MG/PATCH) PATCH. TP SCH (20:51)
[2021-10-10] MEDS: ATORVASTATIN CALCIUM 10 MG TABLET. PO SCH (20:53)
[2021-10-10] MEDS: INSULIN GLARGINE SYRINGE. SQ SCH (20:54)
[2021-10-11] VITALS: BP 160/80
[2021-10-11 04:00] VITALS: BP 100/60
[2021-10-11] MEDS: oxyCODONE IR 5 MG TABLET PO PRN ×2 (06:13→16:37)
[2021-10-11] MEDS: BACLOFEN 10 MG TABLET. PO SCH ×2 (07:59→20:45)
[2021-10-11] MEDS: ASCORBIC ACID 500 MG TABLET PO SCH (07:59)
[2021-10-11] MEDS: LINAGLIPTIN 5 MG TABLET PO SCH (07:59)
[2021-10-11] MEDS: PREGABALIN 50 MG CAPSULE PO SCH ×2 (07:59→20:45)
[2021-10-11 08:00] VITALS: BP 125/69
[2021-10-11] MEDS: FLUTICASONE 50MCG/NASAL SPRAY 16GM BOTTLE. NS SCH (08:00)
[2021-10-11] MEDS: POLYETHYLENE GLYCOL 3350 17 GM PACKET. PO SCH (08:00)
[2021-10-11] MEDS: diazePAM 5 MG TABLET PO SCH ×3 (08:00→20:45)
[2021-10-11] MEDS: LACTOBACILLUS RHAMNOSUS GG 1 CAPSULE. PO SCH ×2 (08:00→20:45)
[2021-10-11] MEDS: LOSARTAN POTASSIUM 25 MG TABLET. PO SCH (08:00)
[2021-10-11] MEDS: MUPIROCIN 2 % OINTMENT 22GM TUBE. NS SCH ×2 (08:00→20:45)
--- NOTE | 2021-10-11 08:56 | PDOC ---
[employer] PROGRESS NOTE Date of Service DOS: DATE: 10/11/21 TIME: 08:55 Chief Complaint Chief Complaint Postoperative posterior cervical laminectomy. Fall in July with cervical fracture (at that time he had a anterior cervical laminectomy) Status post cervical hematoma had to return to the OR History of the following; Cervical laminectomy as per above, diabetes, hypertension, hyperlipidemia, arthritis, GERD, left knee arthroplasty and TIA and also IVC filter and prior ACDF at C4 through C5 and C5 through C6 in 07/2021. History of Present Illness History of Present Illness 10/11/2021 Patient seen and examined Discussed with RN Chart reviewed His discharge was held again as he was not accepted at [facility] 10/09/2021 Patient seen and examined Discussed with RN Chart reviewed Discussed with case management His sister is here as well discussed with her Plan is to get the patient to [facility] long-term if they accept him 10/08/2019 Patient seen and examined He is moving his toes more each day Discussed with RN Chart reviewed 10/07/2021 Patient seen and examined in the ICU (he is actually in overfull patient) He is working with his nurse to try to use his nurse button and remote control Started to move his toes a little bit Doing much better 10/06/2021 Patient seen and examined in the ICU I discussed the case with his sister again I also discussed the case with case management [facility] rehab may consider taking him after all now that he is improved over the past 3 days 10/05/2021 Patient seen and examined in the ICU His nurses are starting to get ready to clean him up His sister is present Discussed with RN Discussed with case management we are still awaiting rehab [facility] transfer if it can be arranged 10/04/2021 Patient seen and examined again in the ICU He remains very weak cannot move his legs was able to move his hands His sister is present I called case management they are checking into possibly if he could go to rehab [facility] Chart reviewed 10/03/2021 Patient seen and examined in the ICU Chart reviewed Discussed with RN Called case management We are hoping to get the patient transferred to [facility] rehab if possible (they are evaluating his admission criteria to rehab) 10/02/2021 Patient seen and examined in the ICU He is still unable to move his legs He is able to move his hands and arms slightly but is very weak at bedside Chart reviewed Discussed with RN I called case management to see if maybe he could go to [facility] rehab sometime soon 10/01 Patient evaluated examined at bedside. Continues to improve. Continue rehab. Plan discussed with bedside RN. 09/30 Patient evaluated examined at bedside. Clinically about the same from yesterday. Continue rehab modalities. Labs stable. Plan discussed with bedside RN. 09/29 Patient evaluated at bedside. Underwent MRI this morning. Symptoms very similar to yesterday but he feels like he is regaining some function. Pain controlled. PT OT. Hemoglovin stable. 09/28 Evaluate examined at bedside. Resting in bed had no complaints to me. Said pain is quite improved. Did okay with transfusion yesterday. Continue current treatments. PT/OT. Discussed with bedside RN. Roxi 09/27 Patient evaluated examined at bedside. Was resting in bed easily awoken able to answer some questions. Some movement in his upper extremities but very limited in lower. Transfuse 1 unit today. Plan discussed with RN. Vitals/I&O Vitals/I&O: Vital Signs Date Time Temp Pulse Resp B/P (MAP) Pulse Ox O2 Delivery O2 Flow Rate FiO2 10/11/21 08:01 Room Air 10/11/21 08:00 98.3 71 16 125/69 (87) 97 98.3 10/11/21 06:43 2.0 I & O 10/10/21 10/10/21 10/11/21 15:00 23:00 07:00 Intake Total 250 ml 300 ml Output Total 400 ml 800 ml 800 ml Balance -400 ml -550 ml -500 ml Physical Exam General: Alert, Oriented X3, Cooperative, No acute distress Heart: Regular rate Lungs: Clear Abdomen: Normal bowel sounds, Soft, No tenderness Extremities: No edema, Normal pulses Skin: Other (favio removed, incision is healing well, no erythema or drainge noted) Assessment and Plan Assessmemt and Plan Postoperative posterior cervical laminectomy. Fall in July with cervical fracture (at that time he had a anterior cervical laminectomy) Status post cervical hematoma had to return to the OR New UTI History of the following; Cervical laminectomy as per above, diabetes, hypertension, hyperlipidemia, arthritis, GERD, left knee arthroplasty and TIA and also IVC filter and prior ACDF at C4 through C5 and C5 through C6 in 07/2021. Plan PT OT (he is starting to move a little more each day) Wound snf meds DVT prophylaxis Added Levaquin for UTI As needed Valium Continue Lyrica Full code [facility] rehab did not accept the patient nor did [facility] working on a new discharge facility? Comment Review of Relevant I have reviewed the following items michelle (where applicable) has been applied. Justifications for Admission Other Justification uncontrolled diabetes MISSY BATES III DO Oct 11, 2021 08:56
[2021-10-11] MEDS: hydrOXYzine 25 MG TABLET PO PRN (09:58)
--- NOTE | 2021-10-11 10:52 | PDOC ---
PROGRESS NOTES Date of Service DATE: 10/11/21 TIME: 10:50 Subjective Subjective No new complaints. Objective Objective Vital Signs Date Time Temp Pulse Resp B/P (MAP) Pulse Ox O2 Delivery O2 Flow Rate FiO2 10/11/21 08:01 Room Air 10/11/21 08:00 98.3 71 16 125/69 (87) 97 98.3 10/11/21 06:43 2.0 Intake and Output 10/11/21 07:00 Intake Total 550 ml Output Total 2000 ml Balance -1450 ml Intake Oral 550 ml Output Urine Total 2000 ml Physical Exam Physical Exam He is alert,supine in bed and I did not notice any movement of his toes but trace right hip adduction. Plan Plan of Care To continue present rehab efforts as tolerated while waiting for transfer to rehab unit or [facility] care unit that can accept his care. Comment Review of Relevant I have reviewed the following items michelle (where applicable) has been applied. Labs Microbiology 10/01/21 Urine Culture - Final, Complete Escherichia Coli Escherichia Coli#2 Medications Current Medications Fentanyl Citrate (Fentanyl 2ml Vial) 25 mcg PRN Q5MIN PRN IVP MILD PAIN 1-3; Start 09/25/21 at 06:00; Stop 09/25/21 at 20:00; Status DC Fentanyl Citrate (Fentanyl 2ml Vial) 50 mcg PRN Q5MIN PRN IVP MODERATE PAIN 4-6 Last administered on 09/25/21at 13:48; Start 09/25/21 at 06:00; Stop 09/25/21 at 20:00; Status DC Morphine Sulfate (Morphine Sulfate) 1 mg PRN Q10MIN PRN IVP SEVERE PAIN 7-10 Last administered on 09/25/21at 14:21; Start 09/25/21 at 06:00; Stop 09/25/21 at 20:00; Status DC Ringer's Solution 1,000 ml @ 30 mls/hr Q24H IV Last administered on 09/25/21at 12:54; Start 09/25/21 at 06:00; Stop 09/25/21 at 17:59; Status DC Hydromorphone HCl (Dilaudid) 0.5 mg PRN Q10MIN PRN IVP SEVERE PAIN 7-10, 2nd CHOICE Last administered on 09/25/21at 16:53; Start 09/25/21 at 06:00; Stop 09/25/21 at 20:00; Status DC Prochlorperazine Edisylate (Compazine) 5 mg PACU PRN PRN IVP NAUSEA, MRX1; Start 09/25/21 at 06:00; Stop 09/25/21 at 20:00; Status DC Cefazolin Sodium 1 gm/Sodium Chloride 1,000 ml @ 1,000 mls/hr 1X ONCE IRR Last administered on 09/25/21at 10:14; Start 09/25/21 at 06:00; Stop 09/25/21 at 06:59; Status DC Cefazolin Sodium/ Dextrose 50 ml @ 100 mls/hr 1X PREOP PRN IV PRIOR TO PROCEDURE Last administered on 09/25/21at 09:30; Start 09/25/21 at 06:00; Stop 09/25/21 at 13:39; Status DC Insulin Human Lispro (HumaLOG VIAL for OP,RR ONLY) 0-10 units PRN Q1HR PRN SQ PER PROTOCOL Last administered on 09/25/21at 17:01; Start 09/25/21 at 07:00; Stop 09/25/21 at 18:00; Status DC Bupivacaine HCl/ Epinephrine Bitart (Sensorcain-Epi 0.5% Kit) 30 ml STK-MED ONCE INJ Last administered on 09/25/21at 10:14; Start 09/25/21 at 10:14; Stop 09/25/21 at 10:30; Status DC Ketorolac Tromethamine (Toradol Im) 60 mg STK-MED ONCE INJ Last administered on 09/25/21at 10:14; Start 09/25/21 at 10:14; Stop 09/25/21 at 10:30; Status DC Thrombin 20,000 unit STK-MED ONCE TP Last administered on 09/25/21at 10:14; Start 09/25/21 at 10:14; Stop 09/25/21 at 10:30; Status DC Gelatin (Gelfoam Size 100) 1 each STK-MED ONCE TP Last administered on 09/25/21at 10:14; Start 09/25/21 at 10:14; Stop 09/25/21 at 10:30; Status DC Acetaminophen (Tylenol) 650 mg PRN Q4HRS PRN PO TEMP OVER 100.4F OR MILD PAIN Last administered on 10/02/21 14:14; Start 09/25/21 at 12:30 Aspirin (Aspirin Chewable) 81 mg DAILY PO Last administered on 09/26/21 08:30; Start 09/26/21 at 09:00; Stop 09/28/21 at 17:19; Status DC Atorvastatin Calcium (Lipitor) 10 mg QHS PO Last administered on 10/10/21 20:53; Start 09/25/21 at 21:00 Baclofen (Lioresal) 10 mg BID PO Last administered on 10/11/21 07:59; Start 09/25/21 at 21:00 Diazepam (Valium) 5 mg TID PO Last administered on 10/11/21 08:00; Start 09/25/21 at 14:00 Docusate Sodium (Colace) 100 mg PRN BID PRN PO HARD STOOLS Last administered on 10/01/21 20:28; Start 09/25/21 at 12:30 Fluticasone Propionate (Flonase) 2 spray DAILY NS Last administered on 10/10/21 07:56; Start 09/26/21 at 09:00 Hydroxyzine HCl (Atarax) 25 mg PRN Q6HRS PRN PO itching Last administered on 10/11/21 09:58; Start 09/25/21 at 12:30 Lidocaine (Lidoderm) 1 patch QHS TP Last administered on 10/03/21 23:31; Start 09/25/21 at 20:00; Stop 10/05/21 at 01:01; Status DC Linagliptin (Tradjenta) 5 mg DAILY PO Last administered on 10/11/21 07:59; Start 09/25/21 at 13:00 Miconazole Nitrate (Monistat-Derm) 1 crispin TID TP Last administered on 10/04/21 20:08; Start 09/25/21 at 21:00; Stop 10/05/21 at 13:23; Status DC Midodrine (Proamatine) 2.5 mg PRN 1X PRN PO hypotension Last administered on 09/27/21 08:56; Start 09/25/21 at 12:30 Oxycodone HCl (Roxicodone) 10 mg PRN Q6HRS PRN PO MODERATE-SEVERE PAIN Last administered on 2/23/22at 06:13; Start 09/25/21 at 12:30 Diclofenac Sodium (Voltaren) 1 crispin PRN TID PRN TP PAIN CONTROL; Start 09/25/21 at 13:15; Stop 09/25/21 at 18:37; Status DC Insulin Glargine (Lantus Syringe) 4 unit QHS SQ Last administered on 10/10/21at 20:54; Start 09/25/21 at 21:00 Losartan Potassium (Cozaar) 25 mg DAILY08 PO Last administered on 10/11/21at 08:00; Start 09/26/21 at 08:00 Polyethylene Glycol (miraLAX PACKET) 17 gm DAILY PO Last administered on 10/09/21at 08:33; Start 09/25/21 at 14:00 Pregabalin (Lyrica) 100 mg BID PO Last administered on 10/11/21at 07:59; Start 09/25/21 at 21:00 Acetaminophen (Tylenol) 650 mg PRN Q6HRS PRN PO MILD PAIN / TEMP > 100.3'F; Start 09/25/21 at 12:30; Status Cancel Al Hydroxide/Mg Hydroxide (Mylanta Plus Xs) 30 ml PRN Q3HRS PRN PO HEARTBURN / GAS; Start 09/25/21 at 12:30 Calcium Carbonate/ Glycine (Tums) 500 mg PRN Q3HRS PRN PO INDIGESTION; Start 09/25/21 at 12:30 Diphenhydramine HCl (Benadryl) 25 mg PRN Q6HRS PRN PO ITCHING; Start 09/25/21 at 12:30 Naloxone HCl (Narcan) 0.1 mg PRN Q2MIN PRN IV SEE COMMENTS; Start 09/25/21 at 12:30 Sodium Chloride (Normal Saline Flush) 3 ml QSHIFT PRN IV AFTER MEDS AND BLOOD DRAWS; Start 09/25/21 at 12:30 Potassium Chloride/Sodium Chloride 1,000 ml @ 75 mls/hr [id number] IV Last administered on 09/26/21at 07:00; Start 09/25/21 at 12:30; Stop 09/26/21 at 17:33; Status DC Magnesium Hydroxide (Milk Of Magnesia) 2,400 mg PRN Q12HR PRN PO CONSTIPATION; Start 09/25/21 at 12:30 Cefazolin Sodium (Ancef) 1 gm Q8H IVP Last administered on 09/26/21at 04:14; Start 09/25/21 at 18:00; Stop 09/26/21 at 10:01; Status DC Fentanyl Citrate (Fentanyl 2ml Vial) 50 mcg PRN Q2HR PRN IVP MODERATE TO SEVERE PAIN Last administered on 10/05/21at 22:46; Start 09/25/21 at 12:30 Dextrose (Dextrose 50%-Water Syringe) 12.5 gm PRN Q15MIN PRN IV SEE COMMENTS; Start 09/25/21 at 12:30 Dextrose (Iv Dextrose 5%) 250 ml PRN Q15MIN PRN IV SEE COMMENTS; Start 09/25/21 at 12:30 Gelatin (Gelfoam Size 100) 1 each STK-MED ONCE .ROUTE ; Start 09/25/21 at 06:37; Stop 09/25/21 at 14:55; Status DC Bupivacaine HCl/ Epinephrine Bitart (Sensorcain-Epi 0.5% Kit) 30 ml STK-MED ONCE .ROUTE ; Start 09/25/21 at 06:37; Stop 09/25/21 at 14:55; Status DC Ketorolac Tromethamine (Toradol Im) 60 mg STK-MED ONCE .ROUTE ; Start 09/25/21 at 06:37; Stop 09/25/21 at 14:55; Status DC Thrombin 20,000 unit STK-MED ONCE TP ; Start 09/25/21 at 06:38; Stop 09/25/21 at 14:55; Status DC Propofol (Diprivan) 200 mg STK-MED ONCE IV ; Start 09/25/21 at 05:54; Stop 09/25/21 at 14:57; Status DC Lidocaine HCl (Lidocaine Pf 2% Vial) 5 ml STK-MED ONCE .ROUTE ; Start 09/25/21 at 05:54; Stop 09/25/21 at 14:57; Status DC Ondansetron HCl (Zofran) 4 mg STK-MED ONCE .ROUTE ; Start 09/25/21 at 05:54; Stop 09/25/21 at 14:57; Status DC Phenylephrine HCl (Ramone-Synephrine Inj) 10 mg STK-MED ONCE .ROUTE ; Start 09/25/21 at 05:54; Stop 09/25/21 at 14:57; Status DC Propofol 50 ml @ As Directed STK-MED ONCE IV ; Start 09/25/21 at 05:54; Stop 09/25/21 at 14:57; Status DC Dexamethasone Sodium Phosphate (Decadron) 4 mg STK-MED ONCE .ROUTE ; Start 09/25/21 at 05:54; Stop 09/25/21 at 14:57; Status DC Fentanyl Citrate (Fentanyl 2ml Vial) 100 mcg STK-MED ONCE .ROUTE ; Start 09/25/21 at 05:54; Stop 09/25/21 at 14:57; Status DC Succinylcholine Chloride (Anectine) 200 mg STK-MED ONCE .ROUTE ; Start 09/25/21 at 05:54; Stop 09/25/21 at 14:57; Status DC Remifentanil HCl (Ultiva) 1 mg STK-MED ONCE IV ; Start 09/25/21 at 05:54; Stop 09/25/21 at 14:57; Status DC Glycopyrrolate (Robinul) 1 mg STK-MED ONCE .ROUTE ; Start 09/25/21 at 07:11; Stop 09/25/21 at 15:01; Status DC Propofol 50 ml @ As Directed STK-MED ONCE IV ; Start 09/25/21 at 08:07; Stop 09/25/21 at 15:02; Status DC Ketamine HCl (Ketamine) 50 mg STK-MED ONCE .ROUTE ; Start 09/25/21 at 08:15; Stop 09/25/21 at 15:02; Status DC Hydromorphone HCl (Dilaudid) 2 mg STK-MED ONCE .ROUTE ; Start 09/25/21 at 10:44; Stop 09/25/21 at 15:03; Status DC Fentanyl Citrate (Fentanyl 2ml Vial) 100 mcg STK-MED ONCE .ROUTE ; Start 09/25/21 at 13:26; Stop 09/25/21 at 15:04; Status DC Morphine Sulfate (Morphine Sulfate) 2 mg STK-MED ONCE .ROUTE ; Start 09/25/21 at 14:04; Stop 09/25/21 at 15:05; Status DC Hydromorphone HCl (Dilaudid) 2 mg STK-MED ONCE .ROUTE ; Start 09/25/21 at 14:54; Stop 09/25/21 at 15:06; Status DC Menthol/Methyl Salicylate (Bengay Greaseless Cream) 1 crispin PRN Q30MIN PRN TP MUSCLE PAIN Last administered on 10/02/21at 21:03; Start 09/25/21 at 18:45 Mupirocin (Bactroban) 1 crispin BID NS Last administered on 10/10/21at 20:57; Start 09/26/21 at 09:00 Dexamethasone Sodium Phosphate (Decadron) 10 mg 1X ONCE IVP Last administered on 09/26/21at 07:31; Start 09/26/21 at 07:30; Stop 09/26/21 at 07:31; Status DC Cefazolin Sodium 1 gm/Sodium Chloride 1,000 ml @ 1,000 mls/hr 1X ONCE IRR Last administered on 09/26/21at 11:52; Start 09/26/21 at 10:30; Stop 09/26/21 at 11:29; Status DC Cefazolin Sodium (Ancef) 1 gm STK-MED ONCE IVP ; Start 09/26/21 at 10:05; Stop 09/26/21 at 10:06; Status DC Lidocaine HCl (Lidocaine Pf 2% Vial) 5 ml STK-MED ONCE .ROUTE ; Start 09/26/21 at 10:18; Stop 09/26/21 at 10:18; Status DC Ondansetron HCl (Zofran) 4 mg STK-MED ONCE .ROUTE ; Start 09/26/21 at 10:18; Stop 09/26/21 at 10:18; Status DC Propofol (Diprivan) 200 mg STK-MED ONCE IV ; Start 09/26/21 at 10:18; Stop 09/26/21 at 10:19; Status DC Dexamethasone Sodium Phosphate (Decadron) 4 mg STK-MED ONCE .ROUTE ; Start 09/26/21 at 10:18; Stop 09/26/21 at 10:19; Status DC Sevoflurane (Ultane) 30 ml STK-MED ONCE IH ; Start 09/26/21 at 10:18; Stop 09/26/21 at 10:19; Status DC Fentanyl Citrate (Fentanyl 2ml Vial) 100 mcg STK-MED ONCE .ROUTE ; Start 09/26/21 at 10:19; Stop 09/26/21 at 10:19; Status DC Rocuronium [place] (Zemuron) 50 mg STK-MED ONCE .ROUTE ; Start 09/26/21 at 10:19; Stop 09/26/21 at 10:19; Status DC Insulin Human Lispro (HumaLOG VIAL for OP,RR ONLY) 0-10 units PRN Q1HR PRN SQ PER PROTOCOL Last administered on 09/26/21at 15:11; Start 09/26/21 at 10:30; Stop 09/26/21 at 18:00; Status DC Sugammadex Sodium (Bridion) 200 mg 1X ONCE IVP Last administered on 09/26/21at 10:30; Start 09/26/21 at 10:30; Stop 09/26/21 at 10:31; Status DC Gelatin (Gelfoam Size 100) 1 each STK-MED ONCE .ROUTE Last administered on 09/26/21at 11:52; Start 09/26/21 at 10:30; Stop 09/26/21 at 10:30; Status DC Bupivacaine HCl/ Epinephrine Bitart (Sensorcain-Epi 0.5% Kit) 30 ml STK-MED ONCE .ROUTE ; Start 09/26/21 at 10:30; Stop 09/26/21 at 10:30; Status DC Ketorolac Tromethamine (Toradol Im) 60 mg STK-MED ONCE .ROUTE ; Start 09/26/21 at 10:30; Stop 09/26/21 at 10:30; Status DC Thrombin 20,000 unit STK-MED ONCE TP Last administered on 09/26/21at 11:52; Start 09/26/21 at 10:30; Stop 09/26/21 at 10:31; Status DC Cefazolin Sodium/ Dextrose 50 ml @ As Directed STK-MED ONCE IV ; Start 09/26/21 at 10:32; Stop 09/26/21 at 10:32; Status DC Vancomycin HCl 1 gm/Sodium Chloride 250 ml @ 250 mls/hr PREOP PRN PRN IV PRIOR TO PROCEDURE; Start 09/26/21 at 10:45; Stop 09/26/21 at 14:00; Status DC Cefazolin Sodium/ Dextrose 50 ml @ 100 mls/hr 1X ONCE IV Last administered on 09/26/21at 11:00; Start 09/26/21 at 11:00; Stop 09/26/21 at 11:29; Status DC Dexamethasone Sodium Phosphate (Decadron) 4 mg STK-MED ONCE .ROUTE ; Start 09/26/21 at 11:04; Stop 09/26/21 at 11:04; Status DC Glycopyrrolate (Robinul) 1 mg STK-MED ONCE .ROUTE ; Start 09/26/21 at 11:04; Stop 09/26/21 at 11:04; Status DC Hydromorphone HCl (Dilaudid) 2 mg STK-MED ONCE .ROUTE ; Start 09/26/21 at 11:56; Stop 09/26/21 at 11:56; Status DC Fentanyl Citrate (Fentanyl 2ml Vial) 25 mcg PRN Q5MIN PRN IVP MILD PAIN 1-3; Start 09/26/21 at 14:30; Stop 09/26/21 at 18:15; Status DC Fentanyl Citrate (Fentanyl 2ml Vial) 50 mcg PRN Q5MIN PRN IVP MODERATE PAIN 4- 6; Start 09/26/21 at 14:30; Stop 09/26/21 at 18:15; Status DC Morphine Sulfate (Morphine Sulfate) 1 mg PRN Q10MIN PRN IVP SEVERE PAIN 7-10; Start 09/26/21 at 14:30; Stop 09/26/21 at 18:15; Status DC Ringer's Solution 1,000 ml @ 30 mls/hr Q24H IV Last administered on 09/26/21at 15:18; Start 09/26/21 at 14:30; Stop 09/26/21 at 21:00; Status DC Hydromorphone HCl (Dilaudid) 0.5 mg PRN Q10MIN PRN IVP SEVERE PAIN 7-10, 2nd CHOICE; Start 09/26/21 at 14:30; Stop 09/26/21 at 18:15; Status DC Prochlorperazine Edisylate (Compazine) 5 mg PACU PRN PRN IVP NAUSEA, MRX1; Start 09/26/21 at 14:30; Stop 09/26/21 at 21:00; Status DC Fentanyl Citrate (Fentanyl 2ml Vial) 100 mcg STK-MED ONCE .ROUTE ; Start 09/26/21 at 14:23; Stop 09/26/21 at 14:25; Status DC Fentanyl Citrate (Fentanyl 2ml Vial) 25 mcg PRN Q5MIN PRN IVP MILD PAIN 1-3; Start 09/26/21 at 14:30; Stop 09/27/21 at 14:29; Status UNV Fentanyl Citrate (Fentanyl 2ml Vial) 50 mcg PRN Q5MIN PRN IVP MODERATE PAIN 4- 6; Start 09/26/21 at 14:30; Stop 09/27/21 at 14:29; Status UNV Morphine Sulfate (Morphine Sulfate) 1 mg PRN Q10MIN PRN IVP SEVERE PAIN 7-10; Start 09/26/21 at 14:30; Stop 09/27/21 at 14:29; Status UNV Ringer's Solution 1,000 ml @ 30 mls/hr Q24H IV ; Start 09/26/21 at 14:30; Stop 09/27/21 at 02:29; Status UNV Hydromorphone HCl (Dilaudid) 0.5 mg PRN Q10MIN PRN IVP SEVERE PAIN 7-10, 2nd CHOICE; Start 09/26/21 at 14:30; Stop 09/27/21 at 14:29; Status UNV Prochlorperazine Edisylate (Compazine) 5 mg PACU PRN PRN IVP NAUSEA, MRX1; Start 09/26/21 at 14:30; Stop 09/27/21 at 14:29; Status UNV Dexamethasone Sodium Phosphate (Decadron) 4 mg Q6HRS IVP Last administered on 09/28/21at 05:06; Start 09/26/21 at 18:00; Stop 09/28/21 at 06:00; Status DC Sodium Chloride 1,000 ml @ 100 mls/hr Q10H IV Last administered on 10/05/21at 06:41; Start 09/26/21 at 17:30; Stop 10/05/21 at 13:48; Status DC Cefazolin Sodium (Ancef) 1 gm Q8HRS IVP ; Start 09/27/21 at 06:00; Stop 09/27/21 at 05:47; Status DC Vancomycin HCl 1 gm/Sodium Chloride 250 ml @ 166.667 mls/hr 1X ONCE IV Last administered on 09/27/21at 06:27; Start 09/27/21 at 06:00; Stop 09/27/21 at 07:29; Status DC Gadoterate Meglumine (Clariscan) 19 ml 1X ONCE IVP Last administered on 09/29/21at 10:32; Start 09/29/21 at 08:15; Stop 09/29/21 at 08:17; Status DC Bisacodyl (Dulcolax Supp) 10 mg PRN DAILY PRN [place] CONSTIPATION; Start 09/29/21 at 14:15 Lactulose (Lactulose) 20 gm PRN DAILY PRN PO CONSTIPATION, 2nd choice Last administered on 10/01/21at 08:35; Start 09/29/21 at 14:30 Ascorbic Acid (Vitamin C) 500 mg DAILY PO Last administered on 10/11/21at 07:59; Start 10/02/21 at 10:00 Levofloxacin/ Dextrose 100 ml @ 100 mls/hr Q24H IV Last administered on 10/02/21at 12:15; Start 10/02/21 at 12:00; Stop 10/03/21 at 08:57; Status DC Levofloxacin/ Dextrose 50 ml @ 50 mls/hr Q24H IV Last administered on 10/06/21at 15:19; Start 10/03/21 at 12:00; Stop 10/06/21 at 23:00; Status DC Lactobacillus Rhamnosus (Culturelle) 1 cap BID PO Last administered on 10/11/21at 08:00; Start 10/03/21 at 21:00 Lidocaine (Lidoderm) 1 patch QHS TP Last administered on 10/10/21at 20:51; Start 10/04/21 at 22:00 Levofloxacin (Levaquin) 250 mg DAILY06 PO Last administered on 10/11/21at 06:13; Start 10/07/21 at 06:00; Stop 10/11/21 at 12:00 Active Scripts Active Dok (Docusate Sodium) 100 Mg Capsule 100 Mg PO PRN BID PRN 30 Days Tylenol (Acetaminophen) 325 Mg Tablet 650 Mg PO PRN Q4HRS PRN 30 Days Valium (Diazepam) 5 Mg Tablet 5 Mg PO TID Atorvastatin Calcium 10 Mg Tablet 10 Mg PO QHS Reported Midodrine Hcl 2.5 Mg Tablet 2.5 Mg PO PRN 1X PRN Aspirin 81 Mg Tab.chew 81 Mg PO DAILY Baclofen 10 Mg Tablet 10 Mg PO BID Lyrica (Pregabalin) 100 Mg Capsule 100 Mg PO BID 30 Days Polyethylene Glycol 3350 2,500 Gm Powder 17 Gm PO DAILY 30 Days Micatin (Miconazole Nitrate) 14 Gm Cream..g. 1 Crispin TP TID Tradjenta (Linagliptin) 5 Mg Tablet 5 Mg PO DAILY Lidocaine PATCH (Lidocaine) 1 Each Adh..patch 1 Each TP DAILY REMOVE AFTER 12 HOURS Levemir (Insulin Detemir) 100 Unit/1 Ml Vial 4 Unit SQ HS Hydroxyzine Hcl 25 Mg Tablet 25 Mg PO PRN Q6HRS PRN Fluticasone Propionate Nasal [place] (Fluticasone Propionate) 16 Gm [place].susp 2 [place] NS DAILY Diclofenac Sodium 100 Gm Gel..gram. 100 Gm TP PRN TID PRN Losartan Potassium 100 Mg Tablet 25 Tab PO DAILY08 Vitals/I & O Vital Sign - Last 24 Hours 10/10/21 10/10/21 10/10/21 10/10/21 10:59 11:29 12:00 16:10 Temp 98.3 97.9 98.3 97.9 Pulse 77 80 Resp 16 16 16 B/P (MAP) 123/72 (89) 147/82 (103) Pulse Ox 98 97 97 95 O2 Delivery Room Air Room Air Room Air Room Air O2 Flow Rate 2.0 2.0 10/10/21 10/10/21 10/10/21 10/10/21 17:23 17:53 20:00 20:00 Temp 99.0 99.0 Pulse 74 Resp 16 18 16 B/P (MAP) 136/72 (93) Pulse Ox 95 95 97 O2 Delivery Room Air Room Air Room Air Room Air O2 Flow Rate 2.0 2.0 10/10/21 10/10/21 10/11/21 10/11/21 23:03 23:33 00:00 04:00 Temp 98.2 98.6 98.2 98.6 Pulse 76 76 Resp 16 16 16 16 B/P (MAP) 160/80 (106) 100/60 (73) Pulse Ox 97 97 97 97 O2 Delivery Room Air Room Air Room Air Room Air 10/11/21 10/11/21 10/11/21 10/11/21 06:13 06:43 08:00 08:00 Temp 98.3 98.3 Pulse 76 71 Resp 16 16 16 B/P (MAP) 100/60 125/69 (87) Pulse Ox 97 97 97 O2 Delivery Room Air Room Air Room Air O2 Flow Rate 2.0 2.0 10/11/21 08:01 O2 Delivery Room Air Intake and Output 10/10/21 10/10/21 10/11/21 15:00 23:00 07:00 Intake Total 250 ml 300 ml Output Total 400 ml 800 ml 800 ml Balance -400 ml -550 ml -500 ml Justifications for Admission Other Justification uncontrolled diabetes TERRY JURADO MD Oct 11, 2021 10:52
[2021-10-11 12:00] VITALS: BP 116/72
--- NOTE | 2021-10-11 15:02 | PDOC ---
PROGRESS NOTES Date of Service DATE: 10/11/21 TIME: 15:00 Subjective Subjective POD #15 S/P Evacuation of epidural hematoma, s/p cervical laminectomy and fusion 09/25/21 pain well controlled Objective Objective Vital Signs Date Time Temp Pulse Resp B/P (MAP) Pulse Ox O2 Delivery O2 Flow Rate FiO2 10/11/21 12:00 98.5 78 18 116/72 (87) 98 Room Air 98.5 10/11/21 06:43 2.0 Intake and Output 10/11/21 07:00 Intake Total 550 ml Output Total 2000 ml Balance -1450 ml Intake Oral 550 ml Output Urine Total 2000 ml Physical Exam General: Alert, Oriented X3, Cooperative, No acute distress Neuro: Other (sensation intact in upper and lower extremities, moves upper extremities with 3/5 strength, hand grasps slightly stronger- finger extension improved) Skin: Other (incision dry, favio out 10/10) Plan Plan of Care continue PT/ OT continue current plan SCDs arrangements being made for rehab/ SNF placement, spoke with regional planner Shreya discussed assistance with Medicaid Comment Review of Relevant I have reviewed the following items michelle (where applicable) has been applied. Labs Microbiology 10/01/21 Urine Culture - Final, Complete Escherichia Coli Escherichia Coli#2 Medications Current Medications Fentanyl Citrate (Fentanyl 2ml Vial) 25 mcg PRN Q5MIN PRN IVP MILD PAIN 1-3; Start 09/25/21 at 06:00; Stop 09/25/21 at 20:00; Status DC Fentanyl Citrate (Fentanyl 2ml Vial) 50 mcg PRN Q5MIN PRN IVP MODERATE PAIN 4-6 Last administered on 09/25/21at 13:48; Start 09/25/21 at 06:00; Stop 09/25/21 at 20:00; Status DC Morphine Sulfate (Morphine Sulfate) 1 mg PRN Q10MIN PRN IVP SEVERE PAIN 7-10 Last administered on 09/25/21at 14:21; Start 09/25/21 at 06:00; Stop 09/25/21 at 20:00; Status DC Ringer's Solution 1,000 ml @ 30 mls/hr Q24H IV Last administered on 09/25/21at 12:54; Start 09/25/21 at 06:00; Stop 09/25/21 at 17:59; Status DC Hydromorphone HCl (Dilaudid) 0.5 mg PRN Q10MIN PRN IVP SEVERE PAIN 7-10, 2nd CHOICE Last administered on 09/25/21at 16:53; Start 09/25/21 at 06:00; Stop 09/25/21 at 20:00; Status DC Prochlorperazine Edisylate (Compazine) 5 mg PACU PRN PRN IVP NAUSEA, MRX1; Start 09/25/21 at 06:00; Stop 09/25/21 at 20:00; Status DC Cefazolin Sodium 1 gm/Sodium Chloride 1,000 ml @ 1,000 mls/hr 1X ONCE IRR Last administered on 09/25/21at 10:14; Start 09/25/21 at 06:00; Stop 09/25/21 at 06:59; Status DC Cefazolin Sodium/ Dextrose 50 ml @ 100 mls/hr 1X PREOP PRN IV PRIOR TO PROCEDURE Last administered on 09/25/21at 09:30; Start 09/25/21 at 06:00; Stop 09/25/21 at 13:39; Status DC Insulin Human Lispro (HumaLOG VIAL for OP,RR ONLY) 0-10 units PRN Q1HR PRN SQ PER PROTOCOL Last administered on 09/25/21at 17:01; Start 09/25/21 at 07:00; Stop 09/25/21 at 18:00; Status DC Bupivacaine HCl/ Epinephrine Bitart (Sensorcain-Epi 0.5% Kit) 30 ml STK-MED ONCE INJ Last administered on 09/25/21at 10:14; Start 09/25/21 at 10:14; Stop 09/25/21 at 10:30; Status DC Ketorolac Tromethamine (Toradol Im) 60 mg STK-MED ONCE INJ Last administered on 09/25/21at 10:14; Start 09/25/21 at 10:14; Stop 09/25/21 at 10:30; Status DC Thrombin 20,000 unit STK-MED ONCE TP Last administered on 09/25/21at 10:14; Start 09/25/21 at 10:14; Stop 09/25/21 at 10:30; Status DC Gelatin (Gelfoam Size 100) 1 each STK-MED ONCE TP Last administered on 09/25/21at 10:14; Start 09/25/21 at 10:14; Stop 09/25/21 at 10:30; Status DC Acetaminophen (Tylenol) 650 mg PRN Q4HRS PRN PO TEMP OVER 100.4F OR MILD PAIN Last administered on 10/02/21at 14:14; Start 09/25/21 at 12:30 Aspirin (Aspirin Chewable) 81 mg DAILY PO Last administered on 09/26/21 08:30; Start 09/26/21 at 09:00; Stop 09/28/21 at 17:19; Status DC Atorvastatin Calcium (Lipitor) 10 mg QHS PO Last administered on 10/10/21 20:53; Start 09/25/21 at 21:00 Baclofen (Lioresal) 10 mg BID PO Last administered on 10/11/21 07:59; Start 09/25/21 at 21:00 Diazepam (Valium) 5 mg TID PO Last administered on 10/11/21at 08:00; Start 09/25/21 at 14:00 Docusate Sodium (Colace) 100 mg PRN BID PRN PO HARD STOOLS Last administered on 10/01/21 20:28; Start 09/25/21 at 12:30 Fluticasone Propionate (Flonase) 2 spray DAILY NS Last administered on 10/10/21 07:56; Start 09/26/21 at 09:00 Hydroxyzine HCl (Atarax) 25 mg PRN Q6HRS PRN PO Itching (2ND Choice) Last a dministered on 10/11/21 09:58; Start 09/25/21 at 12:30 Lidocaine (Lidoderm) 1 patch QHS TP Last administered on 10/03/21 23:31; Start 09/25/21 at 20:00; Stop 10/05/21 at 01:01; Status DC Linagliptin (Tradjenta) 5 mg DAILY PO Last administered on 10/11/21 07:59; Start 09/25/21 at 13:00 Miconazole Nitrate (Monistat-Derm) 1 crispin TID TP Last administered on 10/04/21 20:08; Start 09/25/21 at 21:00; Stop 10/05/21 at 13:23; Status DC Midodrine (Proamatine) 2.5 mg PRN 1X PRN PO hypotension Last administered on 09/27/21at 08:56; Start 09/25/21 at 12:30 Oxycodone HCl (Roxicodone) 10 mg PRN Q6HRS PRN PO MODERATE-SEVERE PAIN Last administered on 10/11/21at 06:13; Start 09/25/21 at 12:30 Diclofenac Sodium (Voltaren) 1 crispin PRN TID PRN TP PAIN CONTROL; Start 09/25/21 at 13:15; Stop 09/25/21 at 18:37; Status DC Insulin Glargine (Lantus Syringe) 4 unit QHS SQ Last administered on 10/10/21at 20:54; Start 09/25/21 at 21:00 Losartan Potassium (Cozaar) 25 mg DAILY08 PO Last administered on 10/11/21at 08:00; Start 09/26/21 at 08:00 Polyethylene Glycol (miraLAX PACKET) 17 gm DAILY PO Last administered on 10/09/21at 08:33; Start 09/25/21 at 14:00 Pregabalin (Lyrica) 100 mg BID PO Last administered on 10/11/21at 07:59; Start 09/25/21 at 21:00 Acetaminophen (Tylenol) 650 mg PRN Q6HRS PRN PO MILD PAIN / TEMP > 100.3'F; Start 09/25/21 at 12:30; Status Cancel Al Hydroxide/Mg Hydroxide (Mylanta Plus Xs) 30 ml PRN Q3HRS PRN PO HEARTBURN / GAS; Start 09/25/21 at 12:30 Calcium Carbonate/ Glycine (Tums) 500 mg PRN Q3HRS PRN PO INDIGESTION; Start 09/25/21 at 12:30 Diphenhydramine HCl (Benadryl) 25 mg PRN Q6HRS PRN PO ITCHING (1ST CHOICE); Start 09/25/21 at 12:30 Naloxone HCl (Narcan) 0.1 mg PRN Q2MIN PRN IV SEE COMMENTS; Start 09/25/21 at 12:30 Sodium Chloride (Normal Saline Flush) 3 ml QSHIFT PRN IV AFTER MEDS AND BLOOD DRAWS; Start 09/25/21 at 12:30 Potassium Chloride/Sodium Chloride 1,000 ml @ 75 mls/hr [id number] IV Last administered on 09/26/21at 07:00; Start 09/25/21 at 12:30; Stop 09/26/21 at 17:33; Status DC Magnesium Hydroxide (Milk Of Magnesia) 2,400 mg PRN Q12HR PRN PO CONSTIPATION; Start 09/25/21 at 12:30 Cefazolin Sodium (Ancef) 1 gm Q8H IVP Last administered on 09/26/21at 04:14; Start 09/25/21 at 18:00; Stop 09/26/21 at 10:01; Status DC Fentanyl Citrate (Fentanyl 2ml Vial) 50 mcg PRN Q2HR PRN IVP MODERATE TO SEVERE PAIN Last administered on 10/05/21at 22:46; Start 09/25/21 at 12:30 Dextrose (Dextrose 50%-Water Syringe) 12.5 gm PRN Q15MIN PRN IV SEE COMMENTS; Start 09/25/21 at 12:30 Dextrose (Iv Dextrose 5%) 250 ml PRN Q15MIN PRN IV SEE COMMENTS; Start 09/25/21 at 12:30 Gelatin (Gelfoam Size 100) 1 each STK-MED ONCE .ROUTE ; Start 09/25/21 at 06:37; Stop 09/25/21 at 14:55; Status DC Bupivacaine HCl/ Epinephrine Bitart (Sensorcain-Epi 0.5% Kit) 30 ml STK-MED ONCE .ROUTE ; Start 09/25/21 at 06:37; Stop 09/25/21 at 14:55; Status DC Ketorolac Tromethamine (Toradol Im) 60 mg STK-MED ONCE .ROUTE ; Start 09/25/21 at 06:37; Stop 09/25/21 at 14:55; Status DC Thrombin 20,000 unit STK-MED ONCE TP ; Start 09/25/21 at 06:38; Stop 09/25/21 at 14:55; Status DC Propofol (Diprivan) 200 mg STK-MED ONCE IV ; Start 09/25/21 at 05:54; Stop 09/25/21 at 14:57; Status DC Lidocaine HCl (Lidocaine Pf 2% Vial) 5 ml STK-MED ONCE .ROUTE ; Start 09/25/21 at 05:54; Stop 09/25/21 at 14:57; Status DC Ondansetron HCl (Zofran) 4 mg STK-MED ONCE .ROUTE ; Start 09/25/21 at 05:54; Stop 09/25/21 at 14:57; Status DC Phenylephrine HCl (Ramone-Synephrine Inj) 10 mg STK-MED ONCE .ROUTE ; Start 09/25/21 at 05:54; Stop 09/25/21 at 14:57; Status DC Propofol 50 ml @ As Directed STK-MED ONCE IV ; Start 09/25/21 at 05:54; Stop 09/25/21 at 14:57; Status DC Dexamethasone Sodium Phosphate (Decadron) 4 mg STK-MED ONCE .ROUTE ; Start 09/25 at 05:54; Stop 09/25/21 at 14:57; Status DC Fentanyl Citrate (Fentanyl 2ml Vial) 100 mcg STK-MED ONCE .ROUTE ; Start 09/25/21 at 05:54; Stop 09/25/21 at 14:57; Status DC Succinylcholine Chloride (Anectine) 200 mg STK-MED ONCE .ROUTE ; Start 09/25/21 at 05:54; Stop 09/25/21 at 14:57; Status DC Remifentanil HCl (Ultiva) 1 mg STK-MED ONCE IV ; Start 09/25/21 at 05:54; Stop 09/25/21 at 14:57; Status DC Glycopyrrolate (Robinul) 1 mg STK-MED ONCE .ROUTE ; Start 09/25/21 at 07:11; Stop 09/25/21 at 15:01; Status DC Propofol 50 ml @ As Directed STK-MED ONCE IV ; Start 09/25/21 at 08:07; Stop 09/25/21 at 15:02; Status DC Ketamine HCl (Ketamine) 50 mg STK-MED ONCE .ROUTE ; Start 09/25/21 at 08:15; Stop 09/25/21 at 15:02; Status DC Hydromorphone HCl (Dilaudid) 2 mg STK-MED ONCE .ROUTE ; Start 09/25/21 at 10:44; Stop 09/25/21 at 15:03; Status DC Fentanyl Citrate (Fentanyl 2ml Vial) 100 mcg STK-MED ONCE .ROUTE ; Start 09/25/21 at 13:26; Stop 09/25/21 at 15:04; Status DC Morphine Sulfate (Morphine Sulfate) 2 mg STK-MED ONCE .ROUTE ; Start 09/25/21 at 14:04; Stop 09/25/21 at 15:05; Status DC Hydromorphone HCl (Dilaudid) 2 mg STK-MED ONCE .ROUTE ; Start 09/25/21 at 14:54; Stop 09/25/21 at 15:06; Status DC Menthol/Methyl Salicylate (Bengay Greaseless Cream) 1 crispin PRN Q30MIN PRN TP M USCLE PAIN Last administered on 10/02/21at 21:03; Start 09/25/21 at 18:45 Mupirocin (Bactroban) 1 crispin BID NS Last administered on 10/10/21at 20:57; Start 09/26/21 at 09:00 Dexamethasone Sodium Phosphate (Decadron) 10 mg 1X ONCE IVP Last administered on 09/26/21at 07:31; Start 09/26/21 at 07:30; Stop 09/26/21 at 07:31; Status DC Cefazolin Sodium 1 gm/Sodium Chloride 1,000 ml @ 1,000 mls/hr 1X ONCE IRR Last administered on 09/26/21at 11:52; Start 09/26/21 at 10:30; Stop 09/26/21 at 11:29; Status DC Cefazolin Sodium (Ancef) 1 gm STK-MED ONCE IVP ; Start 09/26/21 at 10:05; Stop 09/26/21 at 10:06; Status DC Lidocaine HCl (Lidocaine Pf 2% Vial) 5 ml STK-MED ONCE .ROUTE ; Start 09/26/21 at 10:18; Stop 09/26/21 at 10:18; Status DC Ondansetron HCl (Zofran) 4 mg STK-MED ONCE .ROUTE ; Start 09/26/21 at 10:18; Stop 09/26/21 at 10:18; Status DC Propofol (Diprivan) 200 mg STK-MED ONCE IV ; Start 09/26/21 at 10:18; Stop 09/26/21 at 10:19; Status DC Dexamethasone Sodium Phosphate (Decadron) 4 mg STK-MED ONCE .ROUTE ; Start 09/26/21 at 10:18; Stop 09/26/21 at 10:19; Status DC Sevoflurane (Ultane) 30 ml STK-MED ONCE IH ; Start 09/26/21 at 10:18; Stop 09/26/21 at 10:19; Status DC Fentanyl Citrate (Fentanyl 2ml Vial) 100 mcg STK-MED ONCE .ROUTE ; Start 09/26/21 at 10:19; Stop 09/26/21 at 10:19; Status DC Rocuronium [place] (Zemuron) 50 mg STK-MED ONCE .ROUTE ; Start 09/26/21 at 10:19; Stop 09/26/21 at 10:19; Status DC Insulin Human Lispro (HumaLOG VIAL for OP,RR ONLY) 0-10 units PRN Q1HR PRN SQ PER PROTOCOL Last administered on 09/26/21at 15:11; Start 09/26/21 at 10:30; Stop 09/26/21 at 18:00; Status DC Sugammadex Sodium (Bridion) 200 mg 1X ONCE IVP Last administered on 09/26/21at 10:30; Start 09/26/21 at 10:30; Stop 09/26/21 at 10:31; Status DC Gelatin (Gelfoam Size 100) 1 each STK-MED ONCE .ROUTE Last administered on 09/26/21at 11:52; Start 09/26/21 at 10:30; Stop 09/26/21 at 10:30; Status DC Bupivacaine HCl/ Epinephrine Bitart (Sensorcain-Epi 0.5% Kit) 30 ml STK-MED ONCE .ROUTE ; Start 09/26/21 at 10:30; Stop 09/26/21 at 10:30; Status DC Ketorolac Tromethamine (Toradol Im) 60 mg STK-MED ONCE .ROUTE ; Start 09/26/21 at 10:30; Stop 09/26/21 at 10:30; Status DC Thrombin 20,000 unit STK-MED ONCE TP Last administered on 09/26/21at 11:52; Start 09/26/21 at 10:30; Stop 09/26/21 at 10:31; Status DC Cefazolin Sodium/ Dextrose 50 ml @ As Directed STK-MED ONCE IV ; Start 09/26/21 at 10:32; Stop 09/26/21 at 10:32; Status DC Vancomycin HCl 1 gm/Sodium Chloride 250 ml @ 250 mls/hr PREOP PRN PRN IV PRIOR TO PROCEDURE; Start 09/26/21 at 10:45; Stop 09/26/21 at 14:00; Status DC Cefazolin Sodium/ Dextrose 50 ml @ 100 mls/hr 1X ONCE IV Last administered on 09/26/21at 11:00; Start 09/26/21 at 11:00; Stop 09/26/21 at 11:29; Status DC Dexamethasone Sodium Phosphate (Decadron) 4 mg STK-MED ONCE .ROUTE ; Start 09/26/21 at 11:04; Stop 09/26/21 at 11:04; Status DC Glycopyrrolate (Robinul) 1 mg STK-MED ONCE .ROUTE ; Start 09/26/21 at 11:04; Stop 09/26/21 at 11:04; Status DC Hydromorphone HCl (Dilaudid) 2 mg STK-MED ONCE .ROUTE ; Start 09/26/21 at 11:56; Stop 09/26/21 at 11:56; Status DC Fentanyl Citrate (Fentanyl 2ml Vial) 25 mcg PRN Q5MIN PRN IVP MILD PAIN 1-3; Start 09/26/21 at 14:30; Stop 09/26/21 at 18:15; Status DC Fentanyl Citrate (Fentanyl 2ml Vial) 50 mcg PRN Q5MIN PRN IVP MODERATE PAIN 4- 6; Start 09/26/21 at 14:30; Stop 09/26/21 at 18:15; Status DC Morphine Sulfate (Morphine Sulfate) 1 mg PRN Q10MIN PRN IVP SEVERE PAIN 7-10; Start 09/26/21 at 14:30; Stop 09/26/21 at 18:15; Status DC Ringer's Solution 1,000 ml @ 30 mls/hr Q24H IV Last administered on 09/26/21at 15:18; Start 09/26/21 at 14:30; Stop 09/26/21 at 21:00; Status DC Hydromorphone HCl (Dilaudid) 0.5 mg PRN Q10MIN PRN IVP SEVERE PAIN 7-10, 2nd CHOICE; Start 09/26/21 at 14:30; Stop 09/26/21 at 18:15; Status DC Prochlorperazine Edisylate (Compazine) 5 mg PACU PRN PRN IVP NAUSEA, MRX1; Start 09/26/21 at 14:30; Stop 09/26/21 at 21:00; Status DC Fentanyl Citrate (Fentanyl 2ml Vial) 100 mcg STK-MED ONCE .ROUTE ; Start 09/26/21 at 14:23; Stop 09/26/21 at 14:25; Status DC Fentanyl Citrate (Fentanyl 2ml Vial) 25 mcg PRN Q5MIN PRN IVP MILD PAIN 1-3; Start 09/26/21 at 14:30; Stop 09/27/21 at 14:29; Status UNV Fentanyl Citrate (Fentanyl 2ml Vial) 50 mcg PRN Q5MIN PRN IVP MODERATE PAIN 4- 6; Start 09/26/21 at 14:30; Stop 09/27/21 at 14:29; Status UNV Morphine Sulfate (Morphine Sulfate) 1 mg PRN Q10MIN PRN IVP SEVERE PAIN 7-10; Start 09/26/21 at 14:30; Stop 09/27/21 at 14:29; Status UNV Ringer's Solution 1,000 ml @ 30 mls/hr Q24H IV ; Start 09/26/21 at 14:30; Stop 09/27/21 at 02:29; Status UNV Hydromorphone HCl (Dilaudid) 0.5 mg PRN Q10MIN PRN IVP SEVERE PAIN 7-10, 2nd CHOICE; Start 09/26/21 at 14:30; Stop 09/27/21 at 14:29; Status UNV Prochlorperazine Edisylate (Compazine) 5 mg PACU PRN PRN IVP NAUSEA, MRX1; Start 09/26/21 at 14:30; Stop 09/27/21 at 14:29; Status UNV Dexamethasone Sodium Phosphate (Decadron) 4 mg Q6HRS IVP Last administered on 09/28/21at 05:06; Start 09/26/21 at 18:00; Stop 09/28/21 at 06:00; Status DC Sodium Chloride 1,000 ml @ 100 mls/hr Q10H IV Last administered on 10/05/21at 06:41; Start 09/26/21 at 17:30; Stop 10/05/21 at 13:48; Status DC Cefazolin Sodium (Ancef) 1 gm Q8HRS IVP ; Start 09/27/21 at 06:00; Stop 09/27/21 at 05:47; Status DC Vancomycin HCl 1 gm/Sodium Chloride 250 ml @ 166.667 mls/hr 1X ONCE IV Last administered on 09/27/21at 06:27; Start 09/27/21 at 06:00; Stop 09/27/21 at 07:29; Status DC Gadoterate Meglumine (Clariscan) 19 ml 1X ONCE IVP Last administered on 09/29/21at 10:32; Start 09/29/21 at 08:15; Stop 09/29/21 at 08:17; Status DC Bisacodyl (Dulcolax Supp) 10 mg PRN DAILY PRN DE CONSTIPATION; Start 09/29/21 at 14:15 Lactulose (Lactulose) 20 gm PRN DAILY PRN PO CONSTIPATION, 2nd choice Last administered on 10/01/21at 08:35; Start 09/29/21 at 14:30 Ascorbic Acid (Vitamin C) 500 mg DAILY PO Last administered on 10/11/21at 07:59; Start 10/02/21 at 10:00 Levofloxacin/ Dextrose 100 ml @ 100 mls/hr Q24H IV Last administered on 10/02/21at 12:15; Start 10/02/21 at 12:00; Stop 10/03/21 at 08:57; Status DC Levofloxacin/ Dextrose 50 ml @ 50 mls/hr Q24H IV Last administered on 10/06/21at 15:19; Start 10/03/21 at 12:00; Stop 10/06/21 at 23:00; Status DC Lactobacillus Rhamnosus (Culturelle) 1 cap BID PO Last administered on 10/11/21at 08:00; Start 10/03/21 at 21:00 Lidocaine (Lidoderm) 1 patch QHS TP Last administered on 10/10/21at 20:51; Start 10/04/21 at 22:00 Levofloxacin (Levaquin) 250 mg DAILY06 PO Last administered on 10/11/21at 06:13; Start 10/07/21 at 06:00; Stop 10/11/21 at 12:00; Status DC Active Scripts Active Dok (Docusate Sodium) 100 Mg Capsule 100 Mg PO PRN BID PRN 30 Days Tylenol (Acetaminophen) 325 Mg Tablet 650 Mg PO PRN Q4HRS PRN 30 Days Valium (Diazepam) 5 Mg Tablet 5 Mg PO TID Atorvastatin Calcium 10 Mg Tablet 10 Mg PO QHS Reported Midodrine Hcl 2.5 Mg Tablet 2.5 Mg PO PRN 1X PRN Aspirin 81 Mg Tab.chew 81 Mg PO DAILY Baclofen 10 Mg Tablet 10 Mg PO BID Lyrica (Pregabalin) 100 Mg Capsule 100 Mg PO BID 30 Days Polyethylene Glycol 3350 2,500 Gm Powder 17 Gm PO DAILY 30 Days Micatin (Miconazole Nitrate) 14 Gm Cream..g. 1 Crispin TP TID Tradjenta (Linagliptin) 5 Mg Tablet 5 Mg PO DAILY Lidocaine PATCH (Lidocaine) 1 Each Adh..patch 1 Each TP DAILY REMOVE AFTER 12 HOURS Levemir (Insulin Detemir) 100 Unit/1 Ml Vial 4 Unit SQ HS Hydroxyzine Hcl 25 Mg Tablet 25 Mg PO PRN Q6HRS PRN Fluticasone Propionate Nasal [place] (Fluticasone Propionate) 16 Gm [place].susp 2 [place] NS DAILY Diclofenac Sodium 100 Gm Gel..gram. 100 Gm TP PRN TID PRN Losartan Potassium 100 Mg Tablet 25 Tab PO DAILY08 Vitals/I & O Vital Sign - Last 24 Hours 10/10/21 10/10/21 10/10/21 10/10/21 16:10 17:23 17:53 20:00 Temp 97.9 99.0 97.9 99.0 Pulse 80 74 Resp 16 16 18 16 B/P (MAP) 147/82 (103) 136/72 (93) Pulse Ox 95 95 95 97 O2 Delivery Room Air Room Air Room Air Room Air O2 Flow Rate 2.0 2.0 10/10/21 10/10/21 10/10/21 10/11/21 20:00 23:03 23:33 00:00 Temp 98.2 98.2 Pulse 76 Resp 16 16 16 B/P (MAP) 160/80 (106) Pulse Ox 97 97 97 O2 Delivery Room Air Room Air Room Air Room Air 10/11/21 10/11/21 10/11/21 10/11/21 04:00 06:13 06:43 08:00 Temp 98.6 98.6 Pulse 76 76 Resp 16 16 16 B/P (MAP) 100/60 (73) 100/60 Pulse Ox 97 97 97 O2 Delivery Room Air Room Air Room Air O2 Flow Rate 2.0 2.0 10/11/21 10/11/21 10/11/21 08:00 08:01 12:00 Temp 98.3 98.5 98.3 98.5 Pulse 71 78 Resp 16 18 B/P (MAP) 125/69 (87) 116/72 (87) Pulse Ox 97 98 O2 Delivery Room Air Room Air Room Air Intake and Output 0 10/10/21 10/10/21 10/11/21 15:00 23:00 07:00 Intake Total 250 ml 300 ml Output Total 400 ml 800 ml 800 ml Balance -400 ml -550 ml -500 ml Justifications for Admission Other Justification uncontrolled diabetes TODD RIVERA APRN Oct 11, 2021 15:02
[2021-10-11 16:00] VITALS: BP 123/75
[2021-10-11] MEDS ORDERED: IV DEXTROSE 5% 250 ML BAG. IV PRN (19:00)
[2021-10-11] MEDS ORDERED: DEXTROSE 50% 25 GM / 50ML DISP.SYRIN. IV PRN (19:00)
[2021-10-11 20:00] VITALS: BP 119/64
[2021-10-11] MEDS: ATORVASTATIN CALCIUM 10 MG TABLET. PO SCH (20:45)
[2021-10-11] MEDS: LIDOCAINE (700MG/PATCH) PATCH. TP SCH (20:46)
[2021-10-11] MEDS: INSULIN GLARGINE SYRINGE. SQ SCH (20:52)
[2021-10-11] MEDS: ACETAMINOPHEN 325 MG TABLET. PO PRN (21:10)
[2021-10-12] VITALS: BP 95/54
[2021-10-12 04:00] VITALS: BP 104/70
[2021-10-12] MEDS: oxyCODONE IR 5 MG TABLET PO PRN ×3 (04:32→20:40)
[2021-10-12] MEDS: ACETAMINOPHEN 325 MG TABLET. PO PRN ×2 (05:54→18:56)
[2021-10-12] MEDS: INSULIN LISPRO 300 UNITS/3 ML VIAL. SQ SCH ×3 (07:49→17:00)
[2021-10-12 08:00] VITALS: BP 116/63
[2021-10-12] MEDS: FLUTICASONE 50MCG/NASAL SPRAY 16GM BOTTLE. NS SCH (08:20)
[2021-10-12] MEDS: MUPIROCIN 2 % OINTMENT 22GM TUBE. NS SCH ×2 (08:21→21:09)
[2021-10-12] MEDS: ASCORBIC ACID 500 MG TABLET PO SCH (08:22)
[2021-10-12] MEDS: diazePAM 5 MG TABLET PO SCH ×4 (08:23→20:40)
[2021-10-12] MEDS: PREGABALIN 50 MG CAPSULE PO SCH ×2 (08:23→20:41)
[2021-10-12] MEDS: LOSARTAN POTASSIUM 25 MG TABLET. PO SCH (08:23)
[2021-10-12] MEDS: LACTOBACILLUS RHAMNOSUS GG 1 CAPSULE. PO SCH ×2 (08:24→20:39)
[2021-10-12] MEDS: LINAGLIPTIN 5 MG TABLET PO SCH (08:24)
[2021-10-12] MEDS: BACLOFEN 10 MG TABLET. PO SCH ×2 (08:24→20:39)
[2021-10-12] MEDS: POLYETHYLENE GLYCOL 3350 17 GM PACKET. PO SCH (08:24)
--- NOTE | 2021-10-12 11:29 | PDOC ---
[employer] PROGRESS NOTE Date of Service DOS: DATE: 10/12/21 TIME: 11:29 Chief Complaint Chief Complaint Postoperative posterior cervical laminectomy. Fall in July with cervical fracture (at that time he had a anterior cervical laminectomy) Status post cervical hematoma had to return to the OR History of the following; Cervical laminectomy as per above, diabetes, hypertension, hyperlipidemia, arthritis, GERD, left knee arthroplasty and TIA and also IVC filter and prior ACDF at C4 through C5 and C5 through C6 in 07/2021. History of Present Illness History of Present Illness 10/12/2021 Patient seen and examined Discussed with RN Chart reviewed Discussed with case management 10/11/2021 Patient seen and examined Discussed with RN Chart reviewed His discharge was held again as he was not accepted at [facility] 10/09/2021 Patient seen and examined Discussed with RN Chart reviewed Discussed with case management His sister is here as well discussed with her Plan is to get the patient to [facility] if they accept him 10/08/2019 Patient seen and examined He is moving his toes more each day Discussed with RN Chart reviewed 10/07/2021 Patient seen and examined in the ICU (he is actually in overfull patient) He is working with his nurse to try to use his nurse button and remote control Started to move his toes a little bit Doing much better 10/06/2021 Patient seen and examined in the ICU I discussed the case with his sister again I also discussed the case with case management [facility] may consider taking him after all now that he is improved over the past 3 days 10/05/2021 Patient seen and examined in the ICU His nurses are starting to get ready to clean him up His sister is present Discussed with RN Discussed with case management we are still awaiting rehab [facility] transfer if it can be arranged 10/04/2021 Patient seen and examined again in the ICU He remains very weak cannot move his legs was able to move his hands His sister is present I called case management they are checking into possibly if he could go to rehab [facility] Chart reviewed 10/03/2021 Patient seen and examined in the ICU Chart reviewed Discussed with RN Called case management We are hoping to get the patient transferred to [facility] rehab if possible (they are evaluating his admission criteria to rehab) 10/02/2021 Patient seen and examined in the ICU He is still unable to move his legs He is able to move his hands and arms slightly but is very weak at bedside Chart reviewed Discussed with RN I called case management to see if maybe he could go to [facility] rehab sometime soon 10/01 Patient evaluated examined at bedside. Continues to improve. Continue rehab. Plan discussed with bedside RN. 09/30 Patient evaluated examined at bedside. Clinically about the same from yesterday. Continue rehab modalities. Labs stable. Plan discussed with lisandra robbins RN. 09/29 Patient evaluated at bedside. Underwent MRI this morning. Symptoms very similar to yesterday but he feels like he is regaining some function. Pain controlled. PT OT. Hemoglovin stable. 09/28 Evaluate examined at bedside. Resting in bed had no complaints to me. Said pain is quite improved. Did okay with transfusion yesterday. Continue current treatments. PT/OT. Discussed with bedside RN. Roxi 09/27 Patient evaluated examined at bedside. Was resting in bed easily awoken able to answer some questions. Some movement in his upper extremities but very limited in lower. Transfuse 1 unit today. Plan discussed with RN. Vitals/I&O Vitals/I&O: Vital Signs Date Time Temp Pulse Resp B/P (MAP) Pulse Ox O2 Delivery O2 Flow Rate FiO2 10/12/21 08:23 66 116/63 10/12/21 08:00 97.8 14 97 Room Air 97.8 10/11/21 17:07 2.0 I & O 10/11/21 10/11/21 10/12/21 15:00 23:00 07:00 Intake Total 600 ml 250 ml 200 ml Output Total 500 ml 1000 ml 300 ml Balance 100 ml -750 ml -100 ml Physical Exam General: Alert, Oriented X3, Cooperative, No acute distress Heart: Regular rate Lungs: Clear Abdomen: Normal bowel sounds, Soft, No tenderness Extremities: No edema, Normal pulses Skin: Other (incision dry, favio out 10/10) Labs Labs: Laboratory Tests Test 10/11/21 20:42 10/12/21 07:41 Glucose (Fingerstick) 152 mg/dL (70-99) 135 mg/dL (70-99) Assessment and Plan Assessmemt and Plan Postoperative posterior cervical laminectomy. Fall in July with cervical fracture (at that time he had a anterior cervical laminectomy) Status post cervical hematoma had to return to the OR New UTI History of the following; Cervical laminectomy as per above, diabetes, hypertension, hyperlipidemia, arthritis, GERD, left knee arthroplasty and TIA and also IVC filter and prior ACDF at C4 through C5 and C5 through C6 in 07/2021. Plan PT OT (he is starting to move a little more each day) Wound long term meds DVT prophylaxis Added Levaquin for UTI As needed Valium Continue Lyrica Full code [facility] rehab did not accept the patient nor did [facility] working on a new discharge facility? Comment Review of Relevant I have reviewed the following items michelle (where applicable) has been applied. Justifications for Admission Other Justification uncontrolled diabetes MISSY BATES III DO Oct 12, 2021 11:29
[2021-10-12 12:00] VITALS: BP 133/67
--- NOTE | 2021-10-12 14:18 | PDOC ---
PROGRESS NOTES Date of Service DATE: 10/12/21 TIME: 14:06 Subjective Subjective seen at 1030 POD #16 S/P Evacuation of epidural hematoma, s/p cervical laminectomy and fusion 09/25/21 pain well controlled, Does C/O right shoulder pain Objective Objective Vital Signs Date Time Temp Pulse Resp B/P (MAP) Pulse Ox O2 Delivery O2 Flow Rate FiO2 10/12/21 08:23 66 116/63 10/12/21 08:00 97.8 14 97 Room Air 97.8 10/11/21 17:07 2.0 Intake and Output 10/12/21 07:00 Intake Total 1050 ml Output Total 1800 ml Balance -750 ml Intake Oral 1050 ml Output Urine Total 1800 ml Physical Exam Neuro: Other (sensation intact in upper and lower extremities, moves upper extremities with 3/5 strength, hand grasps slightly stronger- finger extension improved, moving left great toe) Skin: Other (dressing C,D,I, flat) Plan Plan of Care continue PT/ OT continue current plan SCDs arrangements being made for rehab/ SNF placement, spoke with program services planner Shreya discussed assistance with Medicaid will discuss right shoulder pain with Dr. Pineda Comment Review of Relevant I have reviewed the following items michelle (where applicable) has been applied. Labs Laboratory Tests Test 10/11/21 20:42 10/12/21 07:41 10/12/21 12:07 Glucose (Fingerstick) 152 mg/dL (70-99) 135 mg/dL (70-99) 183 mg/dL (70-99) Laboratory Tests Test 10/11/21 20:42 10/12/21 07:41 10/12/21 12:07 Glucose (Fingerstick) 152 mg/dL (70-99) 135 mg/dL (70-99) 183 mg/dL (70-99) Microbiology 10/01/21 Urine Culture - Final, Complete Escherichia Coli Escherichia Coli#2 Medications Current Medications Fentanyl Citrate (Fentanyl 2ml Vial) 25 mcg PRN Q5MIN PRN IVP MILD PAIN 1-3; Start 09/25/21 at 06:00; Stop 09/25/21 at 20:00; Status DC Fentanyl Citrate (Fentanyl 2ml Vial) 50 mcg PRN Q5MIN PRN IVP MODERATE PAIN 4-6 Last administered on 09/25/21at 13:48; Start 09/25/21 at 06:00; Stop 09/25/21 at 20:00; Status DC Morphine Sulfate (Morphine Sulfate) 1 mg PRN Q10MIN PRN IVP SEVERE PAIN 7-10 Last administered on 09/25/21at 14:21; Start 09/25/21 at 06:00; Stop 09/25/21 at 20:00; Status DC Ringer's Solution 1,000 ml @ 30 mls/hr Q24H IV Last administered on 09/25/21at 12:54; Start 09/25/21 at 06:00; Stop 09/25/21 at 17:59; Status DC Hydromorphone HCl (Dilaudid) 0.5 mg PRN Q10MIN PRN IVP SEVERE PAIN 7-10, 2nd CHOICE Last administered on 09/25/21at 16:53; Start 09/25/21 at 06:00; Stop 09/25/21 at 20:00; Status DC Prochlorperazine Edisylate (Compazine) 5 mg PACU PRN PRN IVP NAUSEA, MRX1; Start 09/25/21 at 06:00; Stop 09/25/21 at 20:00; Status DC Cefazolin Sodium 1 gm/Sodium Chloride 1,000 ml @ 1,000 mls/hr 1X ONCE IRR Last administered on 09/25/21at 10:14; Start 09/25/21 at 06:00; Stop 09/25/21 at 06:59; Status DC Cefazolin Sodium/ Dextrose 50 ml @ 100 mls/hr 1X PREOP PRN IV PRIOR TO PROCEDURE Last administered on 09/25/21at 09:30; Start 09/25/21 at 06:00; Stop 09/25/21 at 13:39; Status DC Insulin Human Lispro (HumaLOG VIAL for OP,RR ONLY) 0-10 units PRN Q1HR PRN SQ PER PROTOCOL Last administered on 09/25/21at 17:01; Start 09/25/21 at 07:00; Stop 09/25/21 at 18:00; Status DC Bupivacaine HCl/ Epinephrine Bitart (Sensorcain-Epi 0.5% Kit) 30 ml STK-MED ONCE INJ Last administered on 09/25/21at 10:14; Start 09/25/21 at 10:14; Stop 09/25/21 at 10:30; Status DC Ketorolac Tromethamine (Toradol Im) 60 mg STK-MED ONCE INJ Last administered on 09/25/21 10:14; Start 09/25/21 at 10:14; Stop 09/25/21 at 10:30; Status DC Thrombin 20,000 unit STK-MED ONCE TP Last administered on 09/25/21 10:14; Start 09/25/21 at 10:14; Stop 09/25/21 at 10:30; Status DC Gelatin (Gelfoam Size 100) 1 each STK-MED ONCE TP Last administered on 09/25/21 10:14; Start 09/25/21 at 10:14; Stop 09/25/21 at 10:30; Status DC Acetaminophen (Tylenol) 650 mg PRN Q4HRS PRN PO TEMP OVER 100.4F OR MILD PAIN Last administered on 10/12/21 05:54; Start 09/25/21 at 12:30 Aspirin (Aspirin Chewable) 81 mg DAILY PO Last administered on 09/26/21 08:30; Start 09/26/21 at 09:00; Stop 09/28/21 at 17:19; Status DC Atorvastatin Calcium (Lipitor) 10 mg QHS PO Last administered on 10/11/21 20:45; Start 09/25/21 at 21:00 Baclofen (Lioresal) 10 mg BID PO Last administered on 10/12/21 08:24; Start 09/25/21 at 21:00 Diazepam (Valium) 5 mg TID PO Last administered on 10/11/21 20:45; Start 09/25/21 at 14:00 Docusate Sodium (Colace) 100 mg PRN BID PRN PO HARD STOOLS Last administered on 10/01/21 20:28; Start 09/25/21 at 12:30 Fluticasone Propionate (Flonase) 2 spray DAILY NS Last administered on 10/12/21 08:20; Start 09/26/21 at 09:00 Hydroxyzine HCl (Atarax) 25 mg PRN Q6HRS PRN PO Itching (2ND Choice) Last administered on 10/11/21 09:58; Start 09/25/21 at 12:30 Lidocaine (Lidoderm) 1 patch QHS TP Last administered on 2/15/22at 23:31; Start 09/25/21 at 20:00; Stop 10/05/21 at 01:01; Status DC Linagliptin (Tradjenta) 5 mg DAILY PO Last administered on 10/12/21at 08:24; Start 09/25/21 at 13:00 Miconazole Nitrate (Monistat-Derm) 1 crispin TID TP Last administered on 10/04/21at 20:08; Start 09/25/21 at 21:00; Stop 10/05/21 at 13:23; Status DC Midodrine (Proamatine) 2.5 mg PRN 1X PRN PO hypotension Last administered on 09/27/21at 08:56; Start 09/25/21 at 12:30 Oxycodone HCl (Roxicodone) 10 mg PRN Q6HRS PRN PO MODERATE-SEVERE PAIN Last administered on 10/12/21at 04:32; Start 09/25/21 at 12:30 Diclofenac Sodium (Voltaren) 1 crispin PRN TID PRN TP PAIN CONTROL; Start 09/25/21 at 13:15; Stop 09/25/21 at 18:37; Status DC Insulin Glargine (Lantus Syringe) 4 unit QHS SQ Last administered on 10/11/21at 20:52; Start 09/25/21 at 21:00 Losartan Potassium (Cozaar) 25 mg DAILY08 PO Last administered on 10/12/21at 08:23; Start 09/26/21 at 08:00 Polyethylene Glycol (miraLAX PACKET) 17 gm DAILY PO Last administered on 10/09/21at 08:33; Start 09/25/21 at 14:00 Pregabalin (Lyrica) 100 mg BID PO Last administered on 10/12/21at 08:23; Start 09/25/21 at 21:00 Acetaminophen (Tylenol) 650 mg PRN Q6HRS PRN PO MILD PAIN / TEMP > 100.3'F; Start 09/25/21 at 12:30; Status Cancel Al Hydroxide/Mg Hydroxide (Mylanta Plus Xs) 30 ml PRN Q3HRS PRN PO HEARTBURN / GAS; Start 09/25/21 at 12:30 Calcium Carbonate/ Glycine (Tums) 500 mg PRN Q3HRS PRN PO INDIGESTION; Start 09/25/21 at 12:30 Diphenhydramine HCl (Benadryl) 25 mg PRN Q6HRS PRN PO ITCHING (1ST CHOICE); Start 09/25/21 at 12:30 Naloxone HCl (Narcan) 0.1 mg PRN Q2MIN PRN IV SEE COMMENTS; Start 09/25/21 at 12:30 Sodium Chloride (Normal Saline Flush) 3 ml QSHIFT PRN IV AFTER MEDS AND BLOOD DRAWS; Start 09/25/21 at 12:30 Potassium Chloride/Sodium Chloride 1,000 ml @ 75 mls/hr [id number] IV Last administered on 09/26/21at 07:00; Start 09/25/21 at 12:30; Stop 09/26/21 at 17:33; Status DC Magnesium Hydroxide (Milk Of Magnesia) 2,400 mg PRN Q12HR PRN PO CONSTIPATION; Start 09/25/21 at 12:30 Cefazolin Sodium (Ancef) 1 gm Q8H IVP Last administered on 09/26/21at 04:14; Start 09/25/21 at 18:00; Stop 09/26/21 at 10:01; Status DC Fentanyl Citrate (Fentanyl 2ml Vial) 50 mcg PRN Q2HR PRN IVP MODERATE TO SEVERE PAIN Last administered on 10/05/21at 22:46; Start 09/25/21 at 12:30 Dextrose (Dextrose 50%-Water Syringe) 12.5 gm PRN Q15MIN PRN IV SEE COMMENTS; Start 09/25/21 at 12:30 Dextrose (Iv Dextrose 5%) 250 ml PRN Q15MIN PRN IV SEE COMMENTS; Start 09/25/21 at 12:30; Status Cancel Gelatin (Gelfoam Size 100) 1 each STK-MED ONCE .ROUTE ; Start 09/25/21 at 06:37; Stop 09/25/21 at 14:55; Status DC Bupivacaine HCl/ Epinephrine Bitart (Sensorcain-Epi 0.5% Kit) 30 ml STK-MED ONCE .ROUTE ; Start 09/25/21 at 06:37; Stop 09/25/21 at 14:55; Status DC Ketorolac Tromethamine (Toradol Im) 60 mg STK-MED ONCE .ROUTE ; Start 09/25/21 at 06:37; Stop 09/25/21 at 14:55; Status DC Thrombin 20,000 unit STK-MED ONCE TP ; Start 09/25/21 at 06:38; Stop 09/25/21 at 14:55; Status DC Propofol (Diprivan) 200 mg STK-MED ONCE IV ; Start 09/25/21 at 05:54; Stop 09/25/21 at 14:57; Status DC Lidocaine HCl (Lidocaine Pf 2% Vial) 5 ml STK-MED ONCE .ROUTE ; Start 09/25/21 at 05:54; Stop 09/25/21 at 14:57; Status DC Ondansetron HCl (Zofran) 4 mg STK-MED ONCE .ROUTE ; Start 09/25/21 at 05:54; Stop 09/25/21 at 14:57; Status DC Phenylephrine HCl (Ramone-Synephrine Inj) 10 mg STK-MED ONCE .ROUTE ; Start 09/25/21 at 05:54; Stop 09/25/21 at 14:57; Status DC Propofol 50 ml @ As Directed STK-MED ONCE IV ; Start 09/25/21 at 05:54; Stop 09/25/21 at 14:57; Status DC Dexamethasone Sodium Phosphate (Decadron) 4 mg STK-MED ONCE .ROUTE ; Start 09/25/21 at 05:54; Stop 09/25/21 at 14:57; Status DC Fentanyl Citrate (Fentanyl 2ml Vial) 100 mcg STK-MED ONCE .ROUTE ; Start 09/25/21 at 05:54; Stop 09/25/21 at 14:57; Status DC Succinylcholine Chloride (Anectine) 200 mg STK-MED ONCE .ROUTE ; Start 09/25/21 at 05:54; Stop 09/25/21 at 14:57; Status DC Remifentanil HCl (Ultiva) 1 mg STK-MED ONCE IV ; Start 09/25/21 at 05:54; Stop 09/25/21 at 14:57; Status DC Glycopyrrolate (Robinul) 1 mg STK-MED ONCE .ROUTE ; Start 09/25/21 at 07:11; Stop 09/25/21 at 15:01; Status DC Propofol 50 ml @ As Directed STK-MED ONCE IV ; Start 09/25/21 at 08:07; Stop 09/25/21 at 15:02; Status DC Ketamine HCl (Ketamine) 50 mg STK-MED ONCE .ROUTE ; Start 09/25/21 at 08:15; Stop 09/25/21 at 15:02; Status DC Hydromorphone HCl (Dilaudid) 2 mg STK-MED ONCE .ROUTE ; Start 09/25/21 at 10:44; Stop 09/25/21 at 15:03; Status DC Fentanyl Citrate (Fentanyl 2ml Vial) 100 mcg STK-MED ONCE .ROUTE ; Start 09/25/21 at 13:26; Stop 09/25/21 at 15:04; Status DC Morphine Sulfate (Morphine Sulfate) 2 mg STK-MED ONCE .ROUTE ; Start 09/25/21 at 14:04; Stop 09/25/21 at 15:05; Status DC Hydromorphone HCl (Dilaudid) 2 mg STK-MED ONCE .ROUTE ; Start 09/25/21 at 14:54; Stop 09/25/21 at 15:06; Status DC Menthol/Methyl Salicylate (Bengay Greaseless Cream) 1 crispin PRN Q30MIN PRN TP MUSCLE PAIN Last administered on 10/02/21at 21:03; Start 09/25/21 at 18:45 Mupirocin (Bactroban) 1 crispin BID NS Last administered on 10/12/21at 08:21; Start 09/26/21 at 09:00 Dexamethasone Sodium Phosphate (Decadron) 10 mg 1X ONCE IVP Last administered on 09/26/21at 07:31; Start 09/26/21 at 07:30; Stop 09/26/21 at 07:31; Status DC Cefazolin Sodium 1 gm/Sodium Chloride 1,000 ml @ 1,000 mls/hr 1X ONCE IRR Last administered on 09/26/21at 11:52; Start 09/26/21 at 10:30; Stop 09/26/21 at 11:29; Status DC Cefazolin Sodium (Ancef) 1 gm STK-MED ONCE IVP ; Start 09/26/21 at 10:05; Stop 09/26/21 at 10:06; Status DC Lidocaine HCl (Lidocaine Pf 2% Vial) 5 ml STK-MED ONCE .ROUTE ; Start 09/26/21 at 10:18; Stop 09/26/21 at 10:18; Status DC Ondansetron HCl (Zofran) 4 mg STK-MED ONCE .ROUTE ; Start 09/26/21 at 10:18; Stop 09/26/21 at 10:18; Status DC Propofol (Diprivan) 200 mg STK-MED ONCE IV ; Start 09/26/21 at 10:18; Stop 09/26/21 at 10:19; Status DC Dexamethasone Sodium Phosphate (Decadron) 4 mg STK-MED ONCE .ROUTE ; Start 09/26/21 at 10:18; Stop 09/26/21 at 10:19; Status DC Sevoflurane (Ultane) 30 ml STK-MED ONCE IH ; Start 09/26/21 at 10:18; Stop 09/26/21 at 10:19; Status DC Fentanyl Citrate (Fentanyl 2ml Vial) 100 mcg STK-MED ONCE .ROUTE ; Start 09/26/21 at 10:19; Stop 09/26/21 at 10:19; Status DC Rocuronium [place] (Zemuron) 50 mg STK-MED ONCE .ROUTE ; Start 09/26/21 at 10:19; Stop 09/26/21 at 10:19; Status DC Insulin Human Lispro (HumaLOG VIAL for OP,RR ONLY) 0-10 units PRN Q1HR PRN SQ PER PROTOCOL Last administered on 09/26/21at 15:11; Start 09/26/21 at 10:30; Stop 09/26/21 at 18:00; Status DC Sugammadex Sodium (Bridion) 200 mg 1X ONCE IVP Last administered on 09/26/21at 10:30; Start 09/26/21 at 10:30; Stop 09/26/21 at 10:31; Status DC Gelatin (Gelfoam Size 100) 1 each STK-MED ONCE .ROUTE Last administered on 09/26/21at 11:52; Start 09/26/21 at 10:30; Stop 09/26/21 at 10:30; Status DC Bupivacaine HCl/ Epinephrine Bitart (Sensorcain-Epi 0.5% Kit) 30 ml STK-MED ONCE .ROUTE ; Start 09/26/21 at 10:30; Stop 09/26/21 at 10:30; Status DC Ketorolac Tromethamine (Toradol Im) 60 mg STK-MED ONCE .ROUTE ; Start 09/26/21 at 10:30; Stop 09/26/21 at 10:30; Status DC Thrombin 20,000 unit STK-MED ONCE TP Last administered on 09/26/21at 11:52; Start 09/26/21 at 10:30; Stop 09/26/21 at 10:31; Status DC Cefazolin Sodium/ Dextrose 50 ml @ As Directed STK-MED ONCE IV ; Start 09/26/21 at 10:32; Stop 09/26/21 at 10:32; Status DC Vancomycin HCl 1 gm/Sodium Chloride 250 ml @ 250 mls/hr PREOP PRN PRN IV PRIOR TO PROCEDURE; Start 09/26/21 at 10:45; Stop 09/26/21 at 14:00; Status DC Cefazolin Sodium/ Dextrose 50 ml @ 100 mls/hr 1X ONCE IV Last administered on 09/26/21at 11:00; Start 09/26/21 at 11:00; Stop 09/26/21 at 11:29; Status DC Dexamethasone Sodium Phosphate (Decadron) 4 mg STK-MED ONCE .ROUTE ; Start 09/26/21 at 11:04; Stop 09/26/21 at 11:04; Status DC Glycopyrrolate (Robinul) 1 mg STK-MED ONCE .ROUTE ; Start 09/26/21 at 11:04; Stop 09/26/21 at 11:04; Status DC Hydromorphone HCl (Dilaudid) 2 mg STK-MED ONCE .ROUTE ; Start 09/26/21 at 11:56; Stop 09/26/21 at 11:56; Status DC Fentanyl Citrate (Fentanyl 2ml Vial) 25 mcg PRN Q5MIN PRN IVP MILD PAIN 1-3; Start 09/26/21 at 14:30; Stop 09/26/21 at 18:15; Status DC Fentanyl Citrate (Fentanyl 2ml Vial) 50 mcg PRN Q5MIN PRN IVP MODERATE PAIN 4- 6; Start 09/26/21 at 14:30; Stop 09/26/21 at 18:15; Status DC Morphine Sulfate (Morphine Sulfate) 1 mg PRN Q10MIN PRN IVP SEVERE PAIN 7-10; Start 09/26/21 at 14:30; Stop 09/26/21 at 18:15; Status DC Ringer's Solution 1,000 ml @ 30 mls/hr Q24H IV Last administered on 09/26/21at 15:18; Start 09/26/21 at 14:30; Stop 09/26/21 at 21:00; Status DC Hydromorphone HCl (Dilaudid) 0.5 mg PRN Q10MIN PRN IVP SEVERE PAIN 7-10, 2nd CHOICE; Start 09/26/21 at 14:30; Stop 09/26/21 at 18:15; Status DC Prochlorperazine Edisylate (Compazine) 5 mg PACU PRN PRN IVP NAUSEA, MRX1; Start 09/26/21 at 14:30; Stop 09/26/21 at 21:00; Status DC Fentanyl Citrate (Fentanyl 2ml Vial) 100 mcg STK-MED ONCE .ROUTE ; Start 09/26/21 at 14:23; Stop 09/26/21 at 14:25; Status DC Fentanyl Citrate (Fentanyl 2ml Vial) 25 mcg PRN Q5MIN PRN IVP MILD PAIN 1-3; Start 09/26/21 at 14:30; Stop 09/27/21 at 14:29; Status UNV Fentanyl Citrate (Fentanyl 2ml Vial) 50 mcg PRN Q5MIN PRN IVP MODERATE PAIN 4-6 ; Start 09/26/21 at 14:30; Stop 09/27/21 at 14:29; Status UNV Morphine Sulfate (Morphine Sulfate) 1 mg PRN Q10MIN PRN IVP SEVERE PAIN 7-10; Start 09/26/21 at 14:30; Stop 09/27/21 at 14:29; Status UNV Ringer's Solution 1,000 ml @ 30 mls/hr Q24H IV ; Start 09/26/21 at 14:30; Stop 09/27/21 at 02:29; Status UNV Hydromorphone HCl (Dilaudid) 0.5 mg PRN Q10MIN PRN IVP SEVERE PAIN 7-10, 2nd CHOICE; Start 09/26/21 at 14:30; Stop 09/27/21 at 14:29; Status UNV Prochlorperazine Edisylate (Compazine) 5 mg PACU PRN PRN IVP NAUSEA, MRX1; Start 09/26/21 at 14:30; Stop 09/27/21 at 14:29; Status UNV Dexamethasone Sodium Phosphate (Decadron) 4 mg Q6HRS IVP Last administered on 09/28/21at 05:06; Start 09/26/21 at 18:00; Stop 09/28/21 at 06:00; Status DC Sodium Chloride 1,000 ml @ 100 mls/hr Q10H IV Last administered on 10/05/21at 06:41; Start 09/26/21 at 17:30; Stop 10/05/21 at 13:48; Status DC Cefazolin Sodium (Ancef) 1 gm Q8HRS IVP ; Start 09/27/21 at 06:00; Stop 09/27/21 at 05:47; Status DC Vancomycin HCl 1 gm/Sodium Chloride 250 ml @ 166.667 mls/hr 1X ONCE IV Last administered on 09/27/21at 06:27; Start 09/27/21 at 06:00; Stop 09/27/21 at 07:29; Status DC Gadoterate Meglumine (Clariscan) 19 ml 1X ONCE IVP Last administered on 09/29/21at 10:32; Start 09/29/21 at 08:15; Stop 09/29/21 at 08:17; Status DC Bisacodyl (Dulcolax Supp) 10 mg PRN DAILY PRN [place] CONSTIPATION; Start 09/29/21 at 14:15 Lactulose (Lactulose) 20 gm PRN DAILY PRN PO CONSTIPATION, 2nd choice Last administered on 10/01/21at 08:35; Start 09/29/21 at 14:30 Ascorbic Acid (Vitamin C) 500 mg DAILY PO Last administered on 10/12/21at 08:22; Start 10/02/21 at 10:00 Levofloxacin/ Dextrose 100 ml @ 100 mls/hr Q24H IV Last administered on 10/02/21at 12:15; Start 10/02/21 at 12:00; Stop 10/03/21 at 08:57; Status DC Levofloxacin/ Dextrose 50 ml @ 50 mls/hr Q24H IV Last administered on 10/06/21at 15:19; Start 10/03/21 at 12:00; Stop 10/06/21 at 23:00; Status DC Lactobacillus Rhamnosus (Culturelle) 1 cap BID PO Last administered on 10/12/21at 08:24; Start 10/03/21 at 21:00 Lidocaine (Lidoderm) 1 patch QHS TP Last administered on 10/11/21at 20:46; Start 10/04/21 at 22:00 Levofloxacin (Levaquin) 250 mg DAILY06 PO Last administered on 10/11/21at 06:13; Start 10/07/21 at 06:00; Stop 10/11/21 at 12:00; Status DC Insulin Human Lispro (HumaLOG) 0-5 UNITS TIDWMEALS SQ Last administered on 10/12/21at 12:10; Start 10/12/21 at 08:00 Dextrose (Dextrose 50%-Water Syringe) 12.5 gm PRN Q15MIN PRN IV SEE COMMENTS; Start 10/11/21 at 19:00 Dextrose (Iv Dextrose 5%) 250 ml PRN Q15MIN PRN IV SEE COMMENTS; Start 10/11/21 at 19:00 Active Scripts Active Dok (Docusate Sodium) 100 Mg Capsule 100 Mg PO PRN BID PRN 30 Days Tylenol (Acetaminophen) 325 Mg Tablet 650 Mg PO PRN Q4HRS PRN 30 Days Valium (Diazepam) 5 Mg Tablet 5 Mg PO TID Atorvastatin Calcium 10 Mg Tablet 10 Mg PO QHS Reported Midodrine Hcl 2.5 Mg Tablet 2.5 Mg PO PRN 1X PRN Aspirin 81 Mg Tab.chew 81 Mg PO DAILY Baclofen 10 Mg Tablet 10 Mg PO BID Lyrica (Pregabalin) 100 Mg Capsule 100 Mg PO BID 30 Days Polyethylene Glycol 3350 2,500 Gm Powder 17 Gm PO DAILY 30 Days Micatin (Miconazole Nitrate) 14 Gm Cream..g. 1 Crispin TP TID Tradjenta (Linagliptin) 5 Mg Tablet 5 Mg PO DAILY Lidocaine PATCH (Lidocaine) 1 Each Adh..patch 1 Each TP DAILY REMOVE AFTER 12 HOURS Levemir (Insulin Detemir) 100 Unit/1 Ml Vial 4 Unit SQ HS Hydroxyzine Hcl 25 Mg Tablet 25 Mg PO PRN Q6HRS PRN Fluticasone Propionate Nasal Lilly (Fluticasone Propionate) 16 Gm Lilly.susp 2 Lilly NS DAILY Diclofenac Sodium 100 Gm Gel..gram. 100 Gm TP PRN TID PRN Losartan Potassium 100 Mg Tablet 25 Tab PO DAILY08 Vitals/I & O Vital Sign - Last 24 Hours 10/11/21 10/11/21 10/11/21 10/11/21 16:00 16:37 17:07 20:00 Temp 98.5 98.2 98.5 98.2 Pulse 75 79 Resp 18 18 16 19 B/P (MAP) 123/75 (91) 119/64 (82) Pulse Ox 95 95 95 98 O2 Delivery Room Air Room Air Room Air Room Air O2 Flow Rate 2.0 2.0 10/11/21 10/12/21 10/12/21 10/12/21 20:00 00:00 04:00 04:32 Temp 98.2 98.1 98.2 98.1 Pulse 73 61 Resp 18 16 16 B/P (MAP) 95/54 (68) 104/70 (81) Pulse Ox 96 98 O2 Delivery Room Air Room Air Room Air 10/12/21 10/12/21 10/12/21 08:00 08:00 08:23 Temp 97.8 97.8 Pulse 66 66 Resp 14 B/P (MAP) 116/63 (80) 116/63 Pulse Ox 97 O2 Delivery Room Air Room Air Intake and Output 10/11/21 10/11/21 10/12/21 15:00 23:00 07:00 Intake Total 600 ml 250 ml 200 ml Output Total 500 ml 1000 ml 300 ml Balance 100 ml -750 ml -100 ml Justifications for Admission Other Justification uncontrolled diabetes TODD RIVERA APRN Oct 12, 2021 14:18
--- NOTE | 2021-10-12 14:54 | PDOC ---
PROGRESS NOTES Date of Service DATE: 10/12/21 TIME: 14:47 Subjective Subjective He admits right shoulder and right wrist pain with movement. Objective Objective Vital Signs Date Time Temp Pulse Resp B/P (MAP) Pulse Ox O2 Delivery O2 Flow Rate FiO2 10/12/21 14:25 14 98 Room Air 10/12/21 12:00 97.2 68 133/67 (89) 97.2 10/11/21 17:07 2.0 Intake and Output 10/12/21 07:00 Intake Total 1050 ml Output Total 1800 ml Balance -750 ml Intake Oral 1050 ml Output Urine Total 1800 ml Physical Exam Physical Exam He is alert,supine in bed with head end propped up and he had tenderness to palpation over right biceps tendon tendon attachment to anterior aspect of right shoulder and dorsal aspect of right wrist and painfully limited right shoulder joint ROM and he moved both big toes and trace right hip extension and adduction was noted today. Plan Plan of Care Bicipital tendinitis with associated adhesive capsulitis,right shoulder. Sprain wrist,right. Rec:To continue use of physical modalities and try wrist cock up splint and to consider steroid injection to right shoulder if pain persists. Comment Review of Relevant I have reviewed the following items michelle (where applicable) has been applied. Labs Laboratory Tests Test 10/11/21 20:42 10/12/21 07:41 10/12/21 12:07 Glucose (Fingerstick) 152 mg/dL (70-99) 135 mg/dL (70-99) 183 mg/dL (70-99) Laboratory Tests Test 10/11/21 20:42 10/12/21 07:41 10/12/21 12:07 Glucose (Fingerstick) 152 mg/dL (70-99) 135 mg/dL (70-99) 183 mg/dL (70-99) Microbiology 10/01/21 Urine Culture - Final, Complete Escherichia Coli Escherichia Coli#2 Medications Current Medications Fentanyl Citrate (Fentanyl 2ml Vial) 25 mcg PRN Q5MIN PRN IVP MILD PAIN 1-3; Start 09/25/21 at 06:00; Stop 09/25/21 at 20:00; Status DC Fentanyl Citrate (Fentanyl 2ml Vial) 50 mcg PRN Q5MIN PRN IVP MODERATE PAIN 4-6 Last administered on 09/25/21at 13:48; Start 09/25/21 at 06:00; Stop 09/25/21 at 2 0:00; Status DC Morphine Sulfate (Morphine Sulfate) 1 mg PRN Q10MIN PRN IVP SEVERE PAIN 7-10 Last administered on 09/25/21at 14:21; Start 09/25/21 at 06:00; Stop 09/25/21 at 20:00; Status DC Ringer's Solution 1,000 ml @ 30 mls/hr Q24H IV Last administered on 09/25/21at 12:54; Start 09/25/21 at 06:00; Stop 09/25/21 at 17:59; Status DC Hydromorphone HCl (Dilaudid) 0.5 mg PRN Q10MIN PRN IVP SEVERE PAIN 7-10, 2nd CHOICE Last administered on 09/25/21at 16:53; Start 09/25/21 at 06:00; Stop 09/25/21 at 20:00; Status DC Prochlorperazine Edisylate (Compazine) 5 mg PACU PRN PRN IVP NAUSEA, MRX1; Start 09/25/21 at 06:00; Stop 09/25/21 at 20:00; Status DC Cefazolin Sodium 1 gm/Sodium Chloride 1,000 ml @ 1,000 mls/hr 1X ONCE IRR Last administered on 09/25/21at 10:14; Start 09/25/21 at 06:00; Stop 09/25/21 at 06:59; Status DC Cefazolin Sodium/ Dextrose 50 ml @ 100 mls/hr 1X PREOP PRN IV PRIOR TO PRO CEDURE Last administered on 09/25/21at 09:30; Start 09/25/21 at 06:00; Stop 09/25/21 at 13:39; Status DC Insulin Human Lispro (HumaLOG VIAL for OP,RR ONLY) 0-10 units PRN Q1HR PRN SQ PER PROTOCOL Last administered on 09/25/21at 17:01; Start 09/25/21 at 07:00; Stop 09/25/21 at 18:00; Status DC Bupivacaine HCl/ Epinephrine Bitart (Sensorcain-Epi 0.5% Kit) 30 ml STK-MED ONCE INJ Last administered on 09/25/21at 10:14; Start 09/25/21 at 10:14; Stop 09/25/21 at 10:30; Status DC Ketorolac Tromethamine (Toradol Im) 60 mg STK-MED ONCE INJ Last administered on 09/25/21 10:14; Start 09/25/21 at 10:14; Stop 09/25/21 at 10:30; Status DC Thrombin 20,000 unit STK-MED ONCE TP Last administered on 09/25/21 10:14; Start 09/25/21 at 10:14; Stop 09/25/21 at 10:30; Status DC Gelatin (Gelfoam Size 100) 1 each STK-MED ONCE TP Last administered on 09/25/21 10:14; Start 09/25/21 at 10:14; Stop 09/25/21 at 10:30; Status DC Acetaminophen (Tylenol) 650 mg PRN Q4HRS PRN PO TEMP OVER 100.4F OR MILD PAIN Last administered on 10/12/21 05:54; Start 09/25/21 at 12:30 Aspirin (Aspirin Chewable) 81 mg DAILY PO Last administered on 09/26/21 08:30; Start 09/26/21 at 09:00; Stop 09/28/21 at 17:19; Status DC Atorvastatin Calcium (Lipitor) 10 mg QHS PO Last administered on 10/11/21 20:45; Start 09/25/21 at 21:00 Baclofen (Lioresal) 10 mg BID PO Last administered on 10/12/21 08:24; Start 09/25/21 at 21:00 Diazepam (Valium) 5 mg TID PO Last administered on 10/11/21 20:45; Start 09/25/21 at 14:00 Docusate Sodium (Colace) 100 mg PRN BID PRN PO HARD STOOLS Last administered on 10/01/21 20:28; Start 09/25/21 at 12:30 Fluticasone Propionate (Flonase) 2 spray DAILY NS Last administered on 10/12/21 08:20; Start 09/26/21 at 09:00 Hydroxyzine HCl (Atarax) 25 mg PRN Q6HRS PRN PO Itching (2ND Choice) Last administered on 10/11/21 09:58; Start 09/25/21 at 12:30 Lidocaine (Lidoderm) 1 patch QHS TP Last administered on 2/15/22at 23:31; Sta rt 09/25/21 at 20:00; Stop 10/05/21 at 01:01; Status DC Linagliptin (Tradjenta) 5 mg DAILY PO Last administered on 10/12/21at 08:24; Start 09/25/21 at 13:00 Miconazole Nitrate (Monistat-Derm) 1 crispin TID TP Last administered on 10/04/21at 20:08; Start 09/25/21 at 21:00; Stop 10/05/21 at 13:23; Status DC Midodrine (Proamatine) 2.5 mg PRN 1X PRN PO hypotension Last administered on 09/27/21at 08:56; Start 09/25/21 at 12:30 Oxycodone HCl (Roxicodone) 10 mg PRN Q6HRS PRN PO MODERATE-SEVERE PAIN Last administered on 10/12/21at 14:25; Start 09/25/21 at 12:30 Diclofenac Sodium (Voltaren) 1 crispin PRN TID PRN TP PAIN CONTROL; Start 09/25/21 at 13:15; Stop 09/25/21 at 18:37; Status DC Insulin Glargine (Lantus Syringe) 4 unit QHS SQ Last administered on 10/11/21at 20:52; Start 09/25/21 at 21:00 Losartan Potassium (Cozaar) 25 mg DAILY08 PO Last administered on 10/12/21at 08:23; Start 09/26/21 at 08:00 Polyethylene Glycol (miraLAX PACKET) 17 gm DAILY PO Last administered on 10/09/21at 08:33; Start 09/25/21 at 14:00 Pregabalin (Lyrica) 100 mg BID PO Last administered on 10/12/21at 08:23; Start 09/25/21 at 21:00 Acetaminophen (Tylenol) 650 mg PRN Q6HRS PRN PO MILD PAIN / TEMP > 100.3'F; Start 09/25/21 at 12:30; Status Cancel Al Hydroxide/Mg Hydroxide (Mylanta Plus Xs) 30 ml PRN Q3HRS PRN PO HEARTBURN / GAS; Start 09/25/21 at 12:30 Calcium Carbonate/ Glycine (Tums) 500 mg PRN Q3HRS PRN PO INDIGESTION; Start 09/25/21 at 12:30 Diphenhydramine HCl (Benadryl) 25 mg PRN Q6HRS PRN PO ITCHING (1ST CHOICE); Start 09/25/21 at 12:30 Naloxone HCl (Narcan) 0.1 mg PRN Q2MIN PRN IV SEE COMMENTS; Start 09/25/21 at 12:30 Sodium Chloride (Normal Saline Flush) 3 ml QSHIFT PRN IV AFTER MEDS AND BLOOD DRAWS; Start 09/25/21 at 12:30 Potassium Chloride/Sodium Chloride 1,000 ml @ 75 mls/hr [id number] IV Last admin istered on 09/26/21at 07:00; Start 09/25/21 at 12:30; Stop 09/26/21 at 17:33; Status DC Magnesium Hydroxide (Milk Of Magnesia) 2,400 mg PRN Q12HR PRN PO CONSTIPATION; Start 09/25/21 at 12:30 Cefazolin Sodium (Ancef) 1 gm Q8H IVP Last administered on 09/26/21at 04:14; Start 09/25/21 at 18:00; Stop 09/26/21 at 10:01; Status DC Fentanyl Citrate (Fentanyl 2ml Vial) 50 mcg PRN Q2HR PRN IVP MODERATE TO SEVERE PAIN Last administered on 10/05/21at 22:46; Start 09/25/21 at 12:30 Dextrose (Dextrose 50%-Water Syringe) 12.5 gm PRN Q15MIN PRN IV SEE COMMENTS; Start 09/25/21 at 12:30 Dextrose (Iv Dextrose 5%) 250 ml PRN Q15MIN PRN IV SEE COMMENTS; Start 09/25/21 at 12:30; Status Cancel Gelatin (Gelfoam Size 100) 1 each STK-MED ONCE .ROUTE ; Start 09/25/21 at 06:37; Stop 09/25/21 at 14:55; Status DC Bupivacaine HCl/ Epinephrine Bitart (Sensorcain-Epi 0.5% Kit) 30 ml STK-MED ONCE .ROUTE ; Start 09/25/21 at 06:37; Stop 09/25/21 at 14:55; Status DC Ketorolac Tromethamine (Toradol Im) 60 mg STK-MED ONCE .ROUTE ; Start 09/25/21 at 06:37; Stop 09/25/21 at 14:55; Status DC Thrombin 20,000 unit STK-MED ONCE TP ; Start 09/25/21 at 06:38; Stop 09/25/21 at 14:55; Status DC Propofol (Diprivan) 200 mg STK-MED ONCE IV ; Start 09/25/21 at 05:54; Stop 09/25/21 at 14:57; Status DC Lidocaine HCl (Lidocaine Pf 2% Vial) 5 ml STK-MED ONCE .ROUTE ; Start 09/25/21 at 05:54; Stop 09/25/21 at 14:57; Status DC Ondansetron HCl (Zofran) 4 mg STK-MED ONCE .ROUTE ; Start 09/25/21 at 05:54; Stop 09/25/21 at 14:57; Status DC Phenylephrine HCl (Ramone-Synephrine Inj) 10 mg STK-MED ONCE .ROUTE ; Start 09/25/21 at 05:54; Stop 09/25/21 at 14:57; Status DC Propofol 50 ml @ As Directed STK-MED ONCE IV ; Start 09/25/21 at 05:54; Stop 09/25/21 at 14:57; Status DC Dexamethasone Sodium Phosphate (Decadron) 4 mg STK-MED ONCE .ROUTE ; Start 09/25/21 at 05:54; Stop 09/25/21 at 14:57; Status DC Fentanyl Citrate (Fentanyl 2ml Vial) 100 mcg STK-MED ONCE .ROUTE ; Start 09/25/21 at 05:54; Stop 09/25/21 at 14:57; Status DC Succinylcholine Chloride (Anectine) 200 mg STK-MED ONCE .ROUTE ; Start 09/25/21 at 05:54; Stop 09/25/21 at 14:57; Status DC Remifentanil HCl (Ultiva) 1 mg STK-MED ONCE IV ; Start 09/25/21 at 05:54; Stop 09/25/21 at 14:57; Status DC Glycopyrrolate (Robinul) 1 mg STK-MED ONCE .ROUTE ; Start 09/25/21 at 07:11; Stop 09/25/21 at 15:01; Status DC Propofol 50 ml @ As Directed STK-MED ONCE IV ; Start 09/25/21 at 08:07; Stop 09/25/21 at 15:02; Status DC Ketamine HCl (Ketamine) 50 mg STK-MED ONCE .ROUTE ; Start 09/25/21 at 08:15; Stop 09/25/21 at 15:02; Status DC Hydromorphone HCl (Dilaudid) 2 mg STK-MED ONCE .ROUTE ; Start 09/25/21 at 10:44; Stop 09/25/21 at 15:03; Status DC Fentanyl Citrate (Fentanyl 2ml Vial) 100 mcg STK-MED ONCE .ROUTE ; Start 09/25/21 at 13:26; Stop 09/25/21 at 15:04; Status DC Morphine Sulfate (Morphine Sulfate) 2 mg STK-MED ONCE .ROUTE ; Start 09/25/21 at 14:04; Stop 09/25/21 at 15:05; Status DC Hydromorphone HCl (Dilaudid) 2 mg STK-MED ONCE .ROUTE ; Start 09/25/21 at 14:54; Stop 09/25/21 at 15:06; Status DC Menthol/Methyl Salicylate ([place] Greaseless Cream) 1 crispin PRN Q30MIN PRN TP MUSCLE PAIN Last administered on 10/02/21at 21:03; Start 09/25/21 at 18:45 Mupirocin (Bactroban) 1 crispin BID NS Last administered on 10/12/21at 08:21; Start 09/26/21 at 09:00 Dexamethasone Sodium Phosphate (Decadron) 10 mg 1X ONCE IVP Last administered on 09/26/21at 07:31; Start 09/26/21 at 07:30; Stop 09/26/21 at 07:31; Status DC Cefazolin Sodium 1 gm/Sodium Chloride 1,000 ml @ 1,000 mls/hr 1X ONCE IRR Last administered on 09/26/21at 11:52; Start 09/26/21 at 10:30; Stop 09/26/21 at 11:29; Status DC Cefazolin Sodium (Ancef) 1 gm STK-MED ONCE IVP ; Start 09/26/21 at 10:05; Stop 09/26/21 at 10:06; Status DC Lidocaine HCl (Lidocaine Pf 2% Vial) 5 ml STK-MED ONCE .ROUTE ; Start 09/26/21 at 10:18; Stop 09/26/21 at 10:18; Status DC Ondansetron HCl (Zofran) 4 mg STK-MED ONCE .ROUTE ; Start 09/26/21 at 10:18; Stop 09/26/21 at 10:18; Status DC Propofol (Diprivan) 200 mg STK-MED ONCE IV ; Start 09/26/21 at 10:18; Stop 09/26/21 at 10:19; Status DC Dexamethasone Sodium Phosphate (Decadron) 4 mg STK-MED ONCE .ROUTE ; Start 09/26/21 at 10:18; Stop 09/26/21 at 10:19; Status DC Sevoflurane (Ultane) 30 ml STK-MED ONCE IH ; Start 09/26/21 at 10:18; Stop 09/26/21 at 10:19; Status DC Fentanyl Citrate (Fentanyl 2ml Vial) 100 mcg STK-MED ONCE .ROUTE ; Start 09/26/21 at 10:19; Stop 09/26/21 at 10:19; Status DC Rocuronium [place] (Zemuron) 50 mg STK-MED ONCE .ROUTE ; Start 09/26/21 at 10:19; Stop 09/26/21 at 10:19; Status DC Insulin Human Lispro (HumaLOG VIAL for OP,RR ONLY) 0-10 units PRN Q1HR PRN SQ PER PROTOCOL Last administered on 09/26/21at 15:11; Start 09/26/21 at 10:30; Stop 09/26/21 at 18:00; Status DC Sugammadex Sodium (Bridion) 200 mg 1X ONCE IVP Last administered on 09/26/21at 10:30; Start 09/26/21 at 10:30; Stop 09/26/21 at 10:31; Status DC Gelatin (Gelfoam Size 100) 1 each STK-MED ONCE .ROUTE Last administered on 09/26/21at 11:52; Start 09/26/21 at 10:30; Stop 09/26/21 at 10:30; Status DC Bupivacaine HCl/ Epinephrine Bitart (Sensorcain-Epi 0.5% Kit) 30 ml STK-MED ONCE .ROUTE ; Start 09/26/21 at 10:30; Stop 09/26/21 at 10:30; Status DC Ketorolac Tromethamine (Toradol Im) 60 mg STK-MED ONCE .ROUTE ; Start 09/26/21 at 10:30; Stop 09/26/21 at 10:30; Status DC Thrombin 20,000 unit STK-MED ONCE TP Last administered on 09/26/21at 11:52; Start 09/26/21 at 10:30; Stop 09/26/21 at 10:31; Status DC Cefazolin Sodium/ Dextrose 50 ml @ As Directed STK-MED ONCE IV ; Start 09/26/21 at 10:32; Stop 09/26/21 at 10:32; Status DC Vancomycin HCl 1 gm/Sodium Chloride 250 ml @ 250 mls/hr PREOP PRN PRN IV PRIOR TO PROCEDURE; Start 09/26/21 at 10:45; Stop 09/26/21 at 14:00; Status DC Cefazolin Sodium/ Dextrose 50 ml @ 100 mls/hr 1X ONCE IV Last administered on 09/26/21at 11:00; Start 09/26/21 at 11:00; Stop 09/26/21 at 11:29; Status DC Dexamethasone Sodium Phosphate (Decadron) 4 mg STK-MED ONCE .ROUTE ; Start at 11:04; Stop 09/26/21 at 11:04; Status DC Glycopyrrolate (Robinul) 1 mg STK-MED ONCE .ROUTE ; Start 09/26/21 at 11:04; Stop 09/26/21 at 11:04; Status DC Hydromorphone HCl (Dilaudid) 2 mg STK-MED ONCE .ROUTE ; Start 09/26/21 at 11:56; Stop 09/26/21 at 11:56; Status DC Fentanyl Citrate (Fentanyl 2ml Vial) 25 mcg PRN Q5MIN PRN IVP MILD PAIN 1-3; Start 09/26/21 at 14:30; Stop 09/26/21 at 18:15; Status DC Fentanyl Citrate (Fentanyl 2ml Vial) 50 mcg PRN Q5MIN PRN IVP MODERATE PAIN 4- 6; Start 09/26/21 at 14:30; Stop 09/26/21 at 18:15; Status DC Morphine Sulfate (Morphine Sulfate) 1 mg PRN Q10MIN PRN IVP SEVERE PAIN 7-10; Start 09/26/21 at 14:30; Stop 09/26/21 at 18:15; Status DC Ringer's Solution 1,000 ml @ 30 mls/hr Q24H IV Last administered on 09/26/21at 15:18; Start 09/26/21 at 14:30; Stop 09/26/21 at 21:00; Status DC Hydromorphone HCl (Dilaudid) 0.5 mg PRN Q10MIN PRN IVP SEVERE PAIN 7-10, 2nd CHOICE; Start 09/26/21 at 14:30; Stop 09/26/21 at 18:15; Status DC Prochlorperazine Edisylate (Compazine) 5 mg PACU PRN PRN IVP NAUSEA, MRX1; Start 09/26/21 at 14:30; Stop 09/26/21 at 21:00; Status DC Fentanyl Citrate (Fentanyl 2ml Vial) 100 mcg STK-MED ONCE .ROUTE ; Start 09/26/21 at 14:23; Stop 09/26/21 at 14:25; Status DC Fentanyl Citrate (Fentanyl 2ml Vial) 25 mcg PRN Q5MIN PRN IVP MILD PAIN 1-3; Start 09/26/21 at 14:30; Stop 09/27/21 at 14:29; Status UNV Fentanyl Citrate (Fentanyl 2ml Vial) 50 mcg PRN Q5MIN PRN IVP MODERATE PAIN 4- 6; Start 09/26/21 at 14:30; Stop 09/27/21 at 14:29; Status UNV Morphine Sulfate (Morphine Sulfate) 1 mg PRN Q10MIN PRN IVP SEVERE PAIN 7-10; Start 09/26/21 at 14:30; Stop 09/27/21 at 14:29; Status UNV Ringer's Solution 1,000 ml @ 30 mls/hr Q24H IV ; Start 09/26/21 at 14:30; Stop 09/27/21 at 02:29; Status UNV Hydromorphone HCl (Dilaudid) 0.5 mg PRN Q10MIN PRN IVP SEVERE PAIN 7-10, 2nd CHOICE; Start 09/26/21 at 14:30; Stop 09/27/21 at 14:29; Status UNV Prochlorperazine Edisylate (Compazine) 5 mg PACU PRN PRN IVP NAUSEA, MRX1; Start 09/26/21 at 14:30; Stop 09/27/21 at 14:29; Status UNV Dexamethasone Sodium Phosphate (Decadron) 4 mg Q6HRS IVP Last administered on 09/28/21at 05:06; Start 09/26/21 at 18:00; Stop 09/28/21 at 06:00; Status DC Sodium Chloride 1,000 ml @ 100 mls/hr Q10H IV Last administered on 10/05/21at 06:41; Start 09/26/21 at 17:30; Stop 10/05/21 at 13:48; Status DC Cefazolin Sodium (Ancef) 1 gm Q8HRS IVP ; Start 09/27/21 at 06:00; Stop 09/27/21 at 05:47; Status DC Vancomycin HCl 1 gm/Sodium Chloride 250 ml @ 166.667 mls/hr 1X ONCE IV Last administered on 09/27/21at 06:27; Start 09/27/21 at 06:00; Stop 09/27/21 at 07:29; Status DC Gadoterate Meglumine (Clariscan) 19 ml 1X ONCE IVP Last administered on 09/29/21at 10:32; Start 09/29/21 at 08:15; Stop 09/29/21 at 08:17; Status DC Bisacodyl (Dulcolax Supp) 10 mg PRN DAILY PRN [place] CONSTIPATION; Start 09/29/21 at 14:15 Lactulose (Lactulose) 20 gm PRN DAILY PRN PO CONSTIPATION, 2nd choice Last administered on 10/01/21at 08:35; Start 09/29/21 at 14:30 Ascorbic Acid (Vitamin C) 500 mg DAILY PO Last administered on 10/12/21at 08:22; Start 10/02/21 at 10:00 Levofloxacin/ Dextrose 100 ml @ 100 mls/hr Q24H IV Last administered on 10/02/21at 12:15; Start 10/02/21 at 12:00; Stop 10/03/21 at 08:57; Status DC Levofloxacin/ Dextrose 50 ml @ 50 mls/hr Q24H IV Last administered on 10/06/21at 15:19; Start 10/03/21 at 12:00; Stop 10/06/21 at 23:00; Status DC Lactobacillus Rhamnosus (Culturelle) 1 cap BID PO Last administered on 09/20 12/08at 08:24; Start 10/03/21 at 21:00 Lidocaine (Lidoderm) 1 patch QHS TP Last administered on 10/11/21at 20:46; Start 10/04/21 at 22:00 Levofloxacin (Levaquin) 250 mg DAILY06 PO Last administered on 10/11/21at 06:13; Start 10/07/21 at 06:00; Stop 10/11/21 at 12:00; Status DC Insulin Human Lispro (HumaLOG) 0-5 UNITS TIDWMEALS SQ Last administered on 10/12/21at 12:10; Start 10/12/21 at 08:00 Dextrose (Dextrose 50%-Water Syringe) 12.5 gm PRN Q15MIN PRN IV SEE COMMENTS; Start 10/11/21 at 19:00 Dextrose (Iv Dextrose 5%) 250 ml PRN Q15MIN PRN IV SEE COMMENTS; Start 10/11/21 at 19:00 Active Scripts Active Dok (Docusate Sodium) 100 Mg Capsule 100 Mg PO PRN BID PRN 30 Days Tylenol (Acetaminophen) 325 Mg Tablet 650 Mg PO PRN Q4HRS PRN 30 Days Valium (Diazepam) 5 Mg Tablet 5 Mg PO TID Atorvastatin Calcium 10 Mg Tablet 10 Mg PO QHS Reported Midodrine Hcl 2.5 Mg Tablet 2.5 Mg PO PRN 1X PRN Aspirin 81 Mg Tab.chew 81 Mg PO DAILY Baclofen 10 Mg Tablet 10 Mg PO BID Lyrica (Pregabalin) 100 Mg Capsule 100 Mg PO BID 30 Days Polyethylene Glycol 3350 2,500 Gm Powder 17 Gm PO DAILY 30 Days Micatin (Miconazole Nitrate) 14 Gm Cream..g. 1 [place] TP TID Tradjenta (Linagliptin) 5 Mg Tablet 5 Mg PO DAILY Lidocaine PATCH (Lidocaine) 1 Each Adh..patch 1 Each TP DAILY REMOVE AFTER 12 HOURS Levemir (Insulin Detemir) 100 Unit/1 Ml Vial 4 Unit SQ HS Hydroxyzine Hcl 25 Mg Tablet 25 Mg PO PRN Q6HRS PRN Fluticasone Propionate Nasal [place] (Fluticasone Propionate) 16 Gm [place].susp 2 [place] NS DAILY Diclofenac Sodium 100 Gm Gel..gram. 100 Gm TP PRN TID PRN Losartan Potassium 100 Mg Tablet 25 Tab PO DAILY08 Vitals/I & O Vital Sign - Last 24 Hours 10/11/21 10/11/21 10/11/21 10/11/21 16:00 16:37 17:07 20:00 Temp 98.5 98.2 98.5 98.2 Pulse 75 79 Resp 18 18 16 19 B/P (MAP) 123/75 (91) 119/64 (82) Pulse Ox 95 95 95 98 O2 Delivery Room Air Room Air Room Air Room Air O2 Flow Rate 2.0 2.0 10/11/21 10/12/21 10/12/21 10/12/21 20:00 00:00 04:00 04:32 Temp 98.2 98.1 98.2 98.1 Pulse 73 61 Resp 18 16 16 B/P (MAP) 95/54 (68) 104/70 (81) Pulse Ox 96 98 O2 Delivery Room Air Room Air Room Air 10/12/21 10/12/21 10/12/21 10/12/21 08:00 08:00 08:23 12:00 Temp 97.8 97.2 97.8 97.2 Pulse 66 66 68 Resp 14 16 B/P (MAP) 116/63 (80) 116/63 133/67 (89) Pulse Ox 97 98 O2 Delivery Room Air Room Air Room Air 10/12/21 14:25 Resp 14 Pulse Ox 98 O2 Delivery Room Air Intake and Output 10/11/21 10/11/21 10/12/21 15:00 23:00 07:00 Intake Total 600 ml 250 ml 200 ml Output Total 500 ml 1000 ml 300 ml Balance 100 ml -750 ml -100 ml Justifications for Admission Other Justification uncontrolled diabetes TERRY JURADO MD Oct 12, 2021 14:54
[2021-10-12 16:00] VITALS: BP 143/82
[2021-10-12 20:00] VITALS: BP 160/81
[2021-10-12] MEDS: ATORVASTATIN CALCIUM 10 MG TABLET. PO SCH (20:40)
[2021-10-12] MEDS: LIDOCAINE (700MG/PATCH) PATCH. TP SCH (20:41)
[2021-10-12] MEDS: INSULIN GLARGINE SYRINGE. SQ SCH (20:45)
[2021-10-13] VITALS: BP 119/61
[2021-10-13] MEDS: ACETAMINOPHEN 325 MG TABLET. PO PRN ×3 (00:36→18:36)
[2021-10-13 04:00] VITALS: BP 98/55
[2021-10-13 08:00] VITALS: BP 126/70
[2021-10-13] MEDS: INSULIN LISPRO 300 UNITS/3 ML VIAL. SQ SCH ×3 (08:00→16:43)
[2021-10-13] MEDS: LINAGLIPTIN 5 MG TABLET PO SCH (08:52)
[2021-10-13] MEDS: BACLOFEN 10 MG TABLET. PO SCH ×2 (08:52→20:36)
[2021-10-13] MEDS: ASCORBIC ACID 500 MG TABLET PO SCH (08:52)
[2021-10-13] MEDS: LACTOBACILLUS RHAMNOSUS GG 1 CAPSULE. PO SCH ×2 (08:52→20:37)
[2021-10-13] MEDS: PREGABALIN 50 MG CAPSULE PO SCH ×2 (08:53→20:36)
[2021-10-13] MEDS: POLYETHYLENE GLYCOL 3350 17 GM PACKET. PO SCH (08:53)
[2021-10-13] MEDS: LOSARTAN POTASSIUM 25 MG TABLET. PO SCH (08:54)
[2021-10-13] MEDS: FLUTICASONE 50MCG/NASAL SPRAY 16GM BOTTLE. NS SCH (08:55)
[2021-10-13] MEDS: diazePAM 5 MG TABLET PO SCH ×3 (09:00→20:37)
--- NOTE | 2021-10-13 10:14 | PDOC ---
[employer] PROGRESS NOTE Date of Service DOS: DATE: 10/13/21 TIME: 10:13 Chief Complaint Chief Complaint Postoperative posterior cervical laminectomy. Fall in July with cervical fracture (at that time he had a anterior cervical laminectomy) Status post cervical hematoma had to return to the OR History of the following; Cervical laminectomy as per above, diabetes, hypertension, hyperlipidemia, arthritis, GERD, left knee arthroplasty and TIA and also IVC filter and prior ACDF at C4 through C5 and C5 through C6 in 07/2021. History of Present Illness History of Present Illness 10/13/2021 Patient seen and examined Discussed with RN Discussed with case management Chart reviewed Discussed with neurosurgery nurse practitioner Roberta 10/12/2021 Patient seen and examined Discussed with RN Chart reviewed Discussed with case management 10/11/2021 Patient seen and examined Discussed with RN Chart reviewed His discharge was held again as he was not accepted at [facility] 10/09/2021 Patient seen and examined Discussed with RN Chart reviewed Discussed with case management His sister is here as well discussed with her Plan is to get the patient to [facility] senior living if they accept him 10/08/2019 Patient seen and examined He is moving his toes more each day Discussed with RN Chart reviewed 10/07/2021 Patient seen and examined in the ICU (he is actually in overfull patient) He is working with his nurse to try to use his nurse button and remote control Started to move his toes a little bit Doing much better 10/06/2021 Patient seen and examined in the ICU I discussed the case with his sister again I also discussed the case with case management [facility] rehab may consider taking him after all now that he is improved over the past 3 days 10/05/2021 Patient seen and examined in the ICU His nurses are starting to get ready to clean him up His sister is present Discussed with RN Discussed with case management we are still awaiting rehab [facility] transfer if it can be arranged 10/04/2021 Patient seen and examined again in the ICU He remains very weak cannot move his legs was able to move his hands His sister is present I called case management they are checking into possibly if he could go to rehab hospital [facility] Chart reviewed 10/03/2021 Patient seen and examined in the ICU Chart reviewed Discussed with RN Called case management We are hoping to get the patient transferred to [facility] rehab if possible (they are evaluating his admission criteria to rehab) 10/02/2021 Patient seen and examined in the ICU He is still unable to move his legs He is able to move his hands and arms slightly but is very weak at bedside Chart reviewed Discussed with RN I called case management to see if maybe he could go to [facility] rehab sometime soon 10/01 Patient evaluated examined at bedside. Continues to improve. Continue rehab. Plan discussed with bedside RN. 09/30 Patient evaluated examined at bedside. Clinically about the same from yesterday. Continue rehab modalities. Labs stable. Plan discussed with bedside RN. 09/29 Patient evaluated at bedside. Underwent MRI this morning. Symptoms very similar to yesterday but he feels like he is regaining some function. Pain controlled. PT OT. Hemoglovin stable. 09/28 Evaluate examined at bedside. Resting in bed had no complaints to me. Said pain is quite improved. Did okay with transfusion yesterday. Continue current treatments. PT/OT. Discussed with bedside RN. Roxi 09/27 Patient evaluated examined at bedside. Was resting in bed easily awoken able to answer some questions. Some movement in his upper extremities but very limited in lower. Transfuse 1 unit today. Plan discussed with RN. Vitals/I&O Vitals/I&O: Vital Signs Date Time Temp Pulse Resp B/P (MAP) Pulse Ox O2 Delivery O2 Flow Rate FiO2 10/13/21 08:54 71 120/55 10/13/21 08:00 97.7 16 97 Room Air 97.7 I & O 10/12/21 10/12/21 10/13/21 15:00 23:00 07:00 Intake Total 480 ml 610 ml Output Total 600 ml 775 ml 300 ml Balance -120 ml -165 ml -300 ml Physical Exam General: Alert, Oriented X3, Cooperative, No acute distress Heart: Regular rate Lungs: Clear Abdomen: Normal bowel sounds, Soft, No tenderness Extremities: No edema, Normal pulses Skin: Other (dressing C,D,I, flat) Labs Labs: Laboratory Tests Test 10/12/21 12:07 10/12/21 16:59 10/12/21 20:46 10/13/21 08:47 Glucose (Fingerstick) 183 mg/dL (70-99) 147 mg/dL (70-99) 150 mg/dL (70-99) 141 mg/dL (70-99) Assessment and Plan Assessmemt and Plan Postoperative posterior cervical laminectomy. Fall in July with cervical fracture (at that time he had a anterior cervical laminectomy) Status post cervical hematoma had to return to the OR New UTI History of the following; Cervical laminectomy as per above, diabetes, hypertension, hyperlipidemia, arthritis, GERD, left knee arthroplasty and TIA and also IVC filter and prior ACDF at C4 through C5 and C5 through C6 in 07/2021. Plan PT OT (he is starting to move a little more each day) Wound group home meds DVT prophylaxis Levaquin for UTI As needed Valium Continue Lyrica Full code [facility] rehab did not accept the patient nor did [facility] adult services librarian working on a new discharge facility? Comment Review of Relevant I have reviewed the following items michelle (where applicable) has been applied. Justifications for Admission Other Justification uncontrolled diabetes MISSY BATES III DO Oct 13, 2021 10:14
[2021-10-13 12:00] VITALS: BP 140/70
--- NOTE | 2021-10-13 12:30 | PDOC ---
PROGRESS NOTES Date of Service DATE: 10/13/21 TIME: 12:28 Subjective Subjective He admits right shoulder pain is less after physical therapy. Objective Objective Vital Signs Date Time Temp Pulse Resp B/P (MAP) Pulse Ox O2 Delivery O2 Flow Rate FiO2 10/13/21 12:00 97.7 74 16 140/70 (93) 98 Room Air 97.7 10/11/21 17:07 2.0 Intake and Output 10/13/21 07:00 Intake Total 1090 ml Output Total 1675 ml Balance -585 ml Intake Oral 1090 ml Output Urine Total 1675 ml Physical Exam Physical Exam He is alert,supine in bed with head end propped up and no change with his neurological status. Plan Plan of Care Waiting for rehab unit or [facility] care unit transfer when medically stable. Comment Review of Relevant I have reviewed the following items michelle (where applicable) has been applied. Labs Laboratory Tests Test 10/11/21 20:42 10/12/21 07:41 10/12/21 12:07 10/12/21 16:59 Glucose (Fingerstick) 152 mg/dL (70-99) 135 mg/dL (70-99) 183 mg/dL (70-99) 147 mg/dL (70-99) Test 10/12/21 20:46 10/13/21 08:47 10/13/21 12:03 Glucose (Fingerstick) 150 mg/dL (70-99) 141 mg/dL (70-99) 149 mg/dL (70-99) Laboratory Tests Test 10/12/21 16:59 10/12/21 20:46 10/13/21 08:47 10/13/21 12:03 Glucose (Fingerstick) 147 mg/dL (70-99) 150 mg/dL (70-99) 141 mg/dL (70-99) 149 mg/dL (70-99) Microbiology 10/01/21 Urine Culture - Final, Complete Escherichia Coli Escherichia Coli#2 Medications Current Medications Fentanyl Citrate (Fentanyl 2ml Vial) 25 mcg PRN Q5MIN PRN IVP MILD PAIN 1-3; Start 09/25/21 at 06:00; Stop 09/25/21 at 20:00; Status DC Fentanyl Citrate (Fentanyl 2ml Vial) 50 mcg PRN Q5MIN PRN IVP MODERATE PAIN 4-6 Last administered on 09/25/21at 13:48; Start 09/25/21 at 06:00; Stop 09/25/21 at 20:00; Status DC Morphine Sulfate (Morphine Sulfate) 1 mg PRN Q10MIN PRN IVP SEVERE PAIN 7-10 Last administered on 09/25/21at 14:21; Start 09/25/21 at 06:00; Stop 09/25/21 at 20:00; Status DC Ringer's Solution 1,000 ml @ 30 mls/hr Q24H IV Last administered on 09/25/21at 12:54; Start 09/25/21 at 06:00; Stop 09/25/21 at 17:59; Status DC Hydromorphone HCl (Dilaudid) 0.5 mg PRN Q10MIN PRN IVP SEVERE PAIN 7-10, 2nd CHOICE Last administered on 09/25/21at 16:53; Start 09/25/21 at 06:00; Stop 09/25/21 at 20:00; Status DC Prochlorperazine Edisylate (Compazine) 5 mg PACU PRN PRN IVP NAUSEA, MRX1; Start 09/25/21 at 06:00; Stop 09/25/21 at 20:00; Status DC Cefazolin Sodium 1 gm/Sodium Chloride 1,000 ml @ 1,000 mls/hr 1X ONCE IRR Last administered on 09/25/21at 10:14; Start 09/25/21 at 06:00; Stop 09/25/21 at 06:59; Status DC Cefazolin Sodium/ Dextrose 50 ml @ 100 mls/hr 1X PREOP PRN IV PRIOR TO PROCEDURE Last administered on 09/25/21at 09:30; Start 09/25/21 at 06:00; Stop 09/25/21 at 13:39; Status DC Insulin Human Lispro (HumaLOG VIAL for OP,RR ONLY) 0-10 units PRN Q1HR PRN SQ PER PROTOCOL Last administered on 09/25/21at 17:01; Start 09/25/21 at 07:00; Stop 09/25/21 at 18:00; Status DC Bupivacaine HCl/ Epinephrine Bitart (Sensorcain-Epi 0.5% Kit) 30 ml STK-MED ONCE INJ Last administered on 09/25/21at 10:14; Start 09/25/21 at 10:14; Stop 09/25/21 at 10:30; Status DC Ketorolac Tromethamine (Toradol Im) 60 mg STK-MED ONCE INJ Last administered on 09/25/21 10:14; Start 09/25/21 at 10:14; Stop 09/25/21 at 10:30; Status DC Thrombin 20,000 unit STK-MED ONCE TP Last administered on 09/25/21 10:14; Start 09/25/21 at 10:14; Stop 09/25/21 at 10:30; Status DC Gelatin (Gelfoam Size 100) 1 each STK-MED ONCE TP Last administered on 09/25/21 10:14; Start 09/25/21 at 10:14; Stop 09/25/21 at 10:30; Status DC Acetaminophen (Tylenol) 650 mg PRN Q4HRS PRN PO TEMP OVER 100.4F OR MILD PAIN L ast administered on 10/13/21 04:59; Start 09/25/21 at 12:30 Aspirin (Aspirin Chewable) 81 mg DAILY PO Last administered on 09/26/21 08:30; Start 09/26/21 at 09:00; Stop 09/28/21 at 17:19; Status DC Atorvastatin Calcium (Lipitor) 10 mg QHS PO Last administered on 10/12/21 20:40; Start 09/25/21 at 21:00 Baclofen (Lioresal) 10 mg BID PO Last administered on 10/13/21 08:52; Start 09/25/21 at 21:00 Diazepam (Valium) 5 mg TID PO Last administered on 10/12/21 20:40; Start 09/25/21 at 14:00 Docusate Sodium (Colace) 100 mg PRN BID PRN PO HARD STOOLS Last administered on 10/01/21 20:28; Start 09/25/21 at 12:30 Fluticasone Propionate (Flonase) 2 spray DAILY NS Last administered on 10/13/21 08:55; Start 09/26/21 at 09:00 Hydroxyzine HCl (Atarax) 25 mg PRN Q6HRS PRN PO Itching (2ND Choice) Last administered on 10/11/21 09:58; Start 09/25/21 at 12:30 Lidocaine (Lidoderm) 1 patch QHS TP Last administered on 10/03/21at 23:31; Start 09/25/21 at 20:00; Stop 10/05/21 at 01:01; Status DC Linagliptin (Tradjenta) 5 mg DAILY PO Last administered on 10/13/21 08:52; Start 09/25/21 at 13:00 Miconazole Nitrate (Monistat-Derm) 1 crispin TID TP Last administered on 10/04/21at 20:08; Start 09/25/21 at 21:00; Stop 10/05/21 at 13:23; Status DC Midodrine (Proamatine) 2.5 mg PRN 1X PRN PO hypotension Last administered on 09/27/21 08:56; Start 09/25/21 at 12:30 Oxycodone HCl (Roxicodone) 10 mg PRN Q6HRS PRN PO MODERATE-SEVERE PAIN Last administered on 10/12/21at 20:40; Start 09/25/21 at 12:30 Diclofenac Sodium (Voltaren) 1 crispin PRN TID PRN TP PAIN CONTROL; Start 09/25/21 at 13:15; Stop 09/25/21 at 18:37; Status DC Insulin Glargine (Lantus Syringe) 4 unit QHS SQ Last administered on 10/12/21at 20:45; Start 09/25/21 at 21:00 Losartan Potassium (Cozaar) 25 mg DAILY08 PO Last administered on 10/13/21 08:54; Start 09/26/21 at 08:00 Polyethylene Glycol (miraLAX PACKET) 17 gm DAILY PO Last administered on 10/13/21 08:53; Start 09/25/21 at 14:00 Pregabalin (Lyrica) 100 mg BID PO Last administered on 10/13/21at 08:53; Start 09/25/21 at 21:00 Acetaminophen (Tylenol) 650 mg PRN Q6HRS PRN PO MILD PAIN / TEMP > 100.3'F; Start 09/25/21 at 12:30; Status Cancel Al Hydroxide/Mg Hydroxide (Mylanta Plus Xs) 30 ml PRN Q3HRS PRN PO HEARTBURN / GAS; Start 09/25/21 at 12:30 Calcium Carbonate/ Glycine (Tums) 500 mg PRN Q3HRS PRN PO INDIGESTION; Start 09/25/21 at 12:30 Diphenhydramine HCl (Benadryl) 25 mg PRN Q6HRS PRN PO ITCHING (1ST CHOICE); Start 09/25/21 at 12:30 Naloxone HCl (Narcan) 0.1 mg PRN Q2MIN PRN IV SEE COMMENTS; Start 09/25/21 at 12:30 Sodium Chloride (Normal Saline Flush) 3 ml QSHIFT PRN IV AFTER MEDS AND BLOOD DRAWS; Start 09/25/21 at 12:30 Potassium Chloride/Sodium Chloride 1,000 ml @ 75 mls/hr [id number] IV Last administered on 09/26/21at 07:00; Start 09/25/21 at 12:30; Stop 09/26/21 at 17:33; Status DC Magnesium Hydroxide (Milk Of Magnesia) 2,400 mg PRN Q12HR PRN PO CONSTIPATION; Start 09/25/21 at 12:30 Cefazolin Sodium (Ancef) 1 gm Q8H IVP Last administered on 09/26/21at 04:14; Start 09/25/21 at 18:00; Stop 09/26/21 at 10:01; Status DC Fentanyl Citrate (Fentanyl 2ml Vial) 50 mcg PRN Q2HR PRN IVP MODERATE TO SEVERE PAIN Last administered on 10/05/21at 22:46; Start 09/25/21 at 12:30 Dextrose (Dextrose 50%-Water Syringe) 12.5 gm PRN Q15MIN PRN IV SEE COMMENTS; Start 09/25/21 at 12:30; Status Cancel Dextrose (Iv Dextrose 5%) 250 ml PRN Q15MIN PRN IV SEE COMMENTS; Start 09/25/21 at 12:30; Status Cancel Gelatin (Gelfoam Size 100) 1 each STK-MED ONCE .ROUTE ; Start 09/25/21 at 06:37; Stop 09/25/21 at 14:55; Status DC Bupivacaine HCl/ Epinephrine Bitart (Sensorcain-Epi 0.5% Kit) 30 ml STK-MED ONCE .ROUTE ; Start 09/25/21 at 06:37; Stop 09/25/21 at 14:55; Status DC Ketorolac Tromethamine (Toradol Im) 60 mg STK-MED ONCE .ROUTE ; Start 09/25/21 at 06:37; Stop 09/25/21 at 14:55; Status DC Thrombin 20,000 unit STK-MED ONCE TP ; Start 09/25/21 at 06:38; Stop 09/25/21 at 14:55; Status DC Propofol (Diprivan) 200 mg STK-MED ONCE IV ; Start 09/25/21 at 05:54; Stop 09/25/21 at 14:57; Status DC Lidocaine HCl (Lidocaine Pf 2% Vial) 5 ml STK-MED ONCE .ROUTE ; Start 09/25/21 at 05:54; Stop 09/25/21 at 14:57; Status DC Ondansetron HCl (Zofran) 4 mg STK-MED ONCE .ROUTE ; Start 09/25/21 at 05:54; Stop 09/25/21 at 14:57; Status DC Phenylephrine HCl (Ramone-Synephrine Inj) 10 mg STK-MED ONCE .ROUTE ; Start 09/25/21 at 05:54; Stop 09/25/21 at 14:57; Status DC Propofol 50 ml @ As Directed STK-MED ONCE IV ; Start 09/25/21 at 05:54; Stop 09/25/21 at 14:57; Status DC Dexamethasone Sodium Phosphate (Decadron) 4 mg STK-MED ONCE .ROUTE ; Start 09/25/21 at 05:54; Stop 09/25/21 at 14:57; Status DC Fentanyl Citrate (Fentanyl 2ml Vial) 100 mcg STK-MED ONCE .ROUTE ; Start 09/25/21 at 05:54; Stop 09/25/21 at 14:57; Status DC Succinylcholine Chloride (Anectine) 200 mg STK-MED ONCE .ROUTE ; Start 09/25/21 at 05:54; Stop 09/25/21 at 14:57; Status DC Remifentanil HCl (Ultiva) 1 mg STK-MED ONCE IV ; Start 09/25/21 at 05:54; Stop 09/25/21 at 14:57; Status DC Glycopyrrolate (Robinul) 1 mg STK-MED ONCE .ROUTE ; Start 09/25/21 at 07:11; Stop 09/25/21 at 15:01; Status DC Propofol 50 ml @ As Directed STK-MED ONCE IV ; Start 09/25/21 at 08:07; Stop 09/25/21 at 15:02; Status DC Ketamine HCl (Ketamine) 50 mg STK-MED ONCE .ROUTE ; Start 09/25/21 at 08:15; Stop 09/25/21 at 15:02; Status DC Hydromorphone HCl (Dilaudid) 2 mg STK-MED ONCE .ROUTE ; Start 09/25/21 at 10:44; Stop 09/25/21 at 15:03; Status DC Fentanyl Citrate (Fentanyl 2ml Vial) 100 mcg STK-MED ONCE .ROUTE ; Start 09/25/21 at 13:26; Stop 09/25/21 at 15:04; Status DC Morphine Sulfate (Morphine Sulfate) 2 mg STK-MED ONCE .ROUTE ; Start 09/25/21 at 14:04; Stop 09/25/21 at 15:05; Status DC Hydromorphone HCl (Dilaudid) 2 mg STK-MED ONCE .ROUTE ; Start 09/25/21 at 14:54; Stop 09/25/21 at 15:06; Status DC Menthol/Methyl Salicylate (Bengay Greaseless Cream) 1 crispin PRN Q30MIN PRN TP MUSCLE PAIN Last administered on 10/02/21at 21:03; Start 09/25/21 at 18:45 Mupirocin (Bactroban) 1 crispin BID NS Last administered on 10/12/21at 21:09; Start 09/26/21 at 09:00; Stop 10/13/21 at 07:56; Status DC Dexamethasone Sodium Phosphate (Decadron) 10 mg 1X ONCE IVP Last administered on 09/26/21at 07:31; Start 09/26/21 at 07:30; Stop 09/26/21 at 07:31; Status DC Cefazolin Sodium 1 gm/Sodium Chloride 1,000 ml @ 1,000 mls/hr 1X ONCE IRR Last administered on 09/26/21at 11:52; Start 09/26/21 at 10:30; Stop 09/26/21 at 11:29; Status DC Cefazolin Sodium (Ancef) 1 gm STK-MED ONCE IVP ; Start 09/26/21 at 10:05; Stop 09/26/21 at 10:06; Status DC Lidocaine HCl (Lidocaine Pf 2% Vial) 5 ml STK-MED ONCE .ROUTE ; Start 09/26/21 at 10:18; Stop 09/26/21 at 10:18; Status DC Ondansetron HCl (Zofran) 4 mg STK-MED ONCE .ROUTE ; Start 09/26/21 at 10:18; Stop 09/26/21 at 10:18; Status DC Propofol (Diprivan) 200 mg STK-MED ONCE IV ; Start 09/26/21 at 10:18; Stop 09/26/21 at 10:19; Status DC Dexamethasone Sodium Phosphate (Decadron) 4 mg STK-MED ONCE .ROUTE ; Start 09/26/21 at 10:18; Stop 09/26/21 at 10:19; Status DC Sevoflurane (Ultane) 30 ml STK-MED ONCE IH ; Start 09/26/21 at 10:18; Stop 09/26/21 at 10:19; Status DC Fentanyl Citrate (Fentanyl 2ml Vial) 100 mcg STK-MED ONCE .ROUTE ; Start 09/26/21 at 10:19; Stop 09/26/21 at 10:19; Status DC Rocuronium [place] (Zemuron) 50 mg STK-MED ONCE .ROUTE ; Start 09/26/21 at 10:19; Stop 09/26/21 at 10:19; Status DC Insulin Human Lispro (HumaLOG VIAL for OP,RR ONLY) 0-10 units PRN Q1HR PRN SQ PER PROTOCOL Last administered on 09/26/21at 15:11; Start 09/26/21 at 10:30; Stop 09/26/21 at 18:00; Status DC Sugammadex Sodium (Bridion) 200 mg 1X ONCE IVP Last administered on 09/26/21at 10:30; Start 09/26/21 at 10:30; Stop 09/26/21 at 10:31; Status DC Gelatin (Gelfoam Size 100) 1 each STK-MED ONCE .ROUTE Last administered on at 11:52; Start 09/26/21 at 10:30; Stop 09/26/21 at 10:30; Status DC Bupivacaine HCl/ Epinephrine Bitart (Sensorcain-Epi 0.5% Kit) 30 ml STK-MED ONCE .ROUTE ; Start 09/26/21 at 10:30; Stop 09/26/21 at 10:30; Status DC Ketorolac Tromethamine (Toradol Im) 60 mg STK-MED ONCE .ROUTE ; Start 09/26/21 at 10:30; Stop 09/26/21 at 10:30; Status DC Thrombin 20,000 unit STK-MED ONCE TP Last administered on 09/26/21at 11:52; Start 09/26/21 at 10:30; Stop 09/26/21 at 10:31; Status DC Cefazolin Sodium/ Dextrose 50 ml @ As Directed STK-MED ONCE IV ; Start 09/26/21 at 10:32; Stop 09/26/21 at 10:32; Status DC Vancomycin HCl 1 gm/Sodium Chloride 250 ml @ 250 mls/hr PREOP PRN PRN IV PRIOR TO PROCEDURE; Start 09/26/21 at 10:45; Stop 09/26/21 at 14:00; Status DC Cefazolin Sodium/ Dextrose 50 ml @ 100 mls/hr 1X ONCE IV Last administered on 09/26/21at 11:00; Start 09/26/21 at 11:00; Stop 09/26/21 at 11:29; Status DC Dexamethasone Sodium Phosphate (Decadron) 4 mg STK-MED ONCE .ROUTE ; Start 09/26/21 at 11:04; Stop 09/26/21 at 11:04; Status DC Glycopyrrolate (Robinul) 1 mg STK-MED ONCE .ROUTE ; Start 09/26/21 at 11:04; Stop 09/26/21 at 11:04; Status DC Hydromorphone HCl (Dilaudid) 2 mg STK-MED ONCE .ROUTE ; Start 09/26/21 at 11:56; Stop 09/26/21 at 11:56; Status DC Fentanyl Citrate (Fentanyl 2ml Vial) 25 mcg PRN Q5MIN PRN IVP MILD PAIN 1-3; Start 09/26/21 at 14:30; Stop 09/26/21 at 18:15; Status DC Fentanyl Citrate (Fentanyl 2ml Vial) 50 mcg PRN Q5MIN PRN IVP MODERATE PAIN 4- 6; Start 09/26/21 at 14:30; Stop 09/26/21 at 18:15; Status DC Morphine Sulfate (Morphine Sulfate) 1 mg PRN Q10MIN PRN IVP SEVERE PAIN 7-10; Start 09/26/21 at 14:30; Stop 09/26/21 at 18:15; Status DC Ringer's Solution 1,000 ml @ 30 mls/hr Q24H IV Last administered on 09/26/21at 15:18; Start 09/26/21 at 14:30; Stop 09/26/21 at 21:00; Status DC Hydromorphone HCl (Dilaudid) 0.5 mg PRN Q10MIN PRN IVP SEVERE PAIN 7-10, 2nd CHOICE; Start 09/26/21 at 14:30; Stop 09/26/21 at 18:15; Status DC Prochlorperazine Edisylate (Compazine) 5 mg PACU PRN PRN IVP NAUSEA, MRX1; Start 09/26/21 at 14:30; Stop 09/26/21 at 21:00; Status DC Fentanyl Citrate (Fentanyl 2ml Vial) 100 mcg STK-MED ONCE .ROUTE ; Start 09/26/21 at 14:23; Stop 09/26/21 at 14:25; Status DC Fentanyl Citrate (Fentanyl 2ml Vial) 25 mcg PRN Q5MIN PRN IVP MILD PAIN 1-3; Start 09/26/21 at 14:30; Stop 09/27/21 at 14:29; Status UNV Fentanyl Citrate (Fentanyl 2ml Vial) 50 mcg PRN Q5MIN PRN IVP MODERATE PAIN 4- 6; Start 09/26/21 at 14:30; Stop 09/27/21 at 14:29; Status UNV Morphine Sulfate (Morphine Sulfate) 1 mg PRN Q10MIN PRN IVP SEVERE PAIN 7-10; Start 09/26/21 at 14:30; Stop 09/27/21 at 14:29; Status UNV Ringer's Solution 1,000 ml @ 30 mls/hr Q24H IV ; Start 09/26/21 at 14:30; Stop 09/27/21 at 02:29; Status UNV Hydromorphone HCl (Dilaudid) 0.5 mg PRN Q10MIN PRN IVP SEVERE PAIN 7-10, 2nd CHOICE; Start 09/26/21 at 14:30; Stop 09/27/21 at 14:29; Status UNV Prochlorperazine Edisylate (Compazine) 5 mg PACU PRN PRN IVP NAUSEA, MRX1; Start 09/26/21 at 14:30; Stop 09/27/21 at 14:29; Status UNV Dexamethasone Sodium Phosphate (Decadron) 4 mg Q6HRS IVP Last administered on 09/28/21at 05:06; Start 09/26/21 at 18:00; Stop 09/28/21 at 06:00; Status DC Sodium Chloride 1,000 ml @ 100 mls/hr Q10H IV Last administered on 10/05/21at 06:41; Start 09/26/21 at 17:30; Stop 10/05/21 at 13:48; Status DC Cefazolin Sodium (Ancef) 1 gm Q8HRS IVP ; Start 09/27/21 at 06:00; Stop 09/27/21 at 05:47; Status DC Vancomycin HCl 1 gm/Sodium Chloride 250 ml @ 166.667 mls/hr 1X ONCE IV Last administered on 09/27/21at 06:27; Start 09/27/21 at 06:00; Stop 09/27/21 at 07:29; Status DC Gadoterate Meglumine (Clariscan) 19 ml 1X ONCE IVP Last administered on 09/29/21at 10:32; Start 09/29/21 at 08:15; Stop 09/29/21 at 08:17; Status DC Bisacodyl (Dulcolax Supp) 10 mg PRN DAILY PRN PA CONSTIPATION; Start 09/29/21 at 14:15 Lactulose (Lactulose) 20 gm PRN DAILY PRN PO CONSTIPATION, 2nd choice Last administered on 10/01/21at 08:35; Start 09/29/21 at 14:30 Ascorbic Acid (Vitamin C) 500 mg DAILY PO Last administered on 10/13/21at 08:52; Start 10/02/21 at 10:00 Levofloxacin/ Dextrose 100 ml @ 100 mls/hr Q24H IV Last administered on 10/02/21at 12:15; Start 10/02/21 at 12:00; Stop 10/03/21 at 08:57; Status DC Levofloxacin/ Dextrose 50 ml @ 50 mls/hr Q24H IV Last administered on 10/06/21at 15:19; Start 10/03/21 at 12:00; Stop 10/06/21 at 23:00; Status DC Lactobacillus Rhamnosus (Culturelle) 1 cap BID PO Last administered on 10/13/21at 08:52; Start 10/03/21 at 21:00 Lidocaine (Lidoderm) 1 patch QHS TP Last administered on 10/12/21at 20:41; Start 10/04/21 at 22:00 Levofloxacin (Levaquin) 250 mg DAILY06 PO Last administered on 10/11/21at 06:13; Start 10/07/21 at 06:00; Stop 10/11/21 at 12:00; Status DC Insulin Human Lispro (HumaLOG) 0-5 UNITS TIDWMEALS SQ Last administered on 10/12/21at 12:10; Start 10/12/21 at 08:00 Dextrose (Dextrose 50%-Water Syringe) 12.5 gm PRN Q15MIN PRN IV SEE COMMENTS; Start 10/11/21 at 19:00 Dextrose (Iv Dextrose 5%) 250 ml PRN Q15MIN PRN IV SEE COMMENTS; Start 10/11/21 at 19:00 Active Scripts Active Dok (Docusate Sodium) 100 Mg Capsule 100 Mg PO PRN BID PRN 30 Days Tylenol (Acetaminophen) 325 Mg Tablet 650 Mg PO PRN Q4HRS PRN 30 Days Valium (Diazepam) 5 Mg Tablet 5 Mg PO TID Atorvastatin Calcium 10 Mg Tablet 10 Mg PO QHS Reported Midodrine Hcl 2.5 Mg Tablet 2.5 Mg PO PRN 1X PRN Aspirin 81 Mg Tab.chew 81 Mg PO DAILY Baclofen 10 Mg Tablet 10 Mg PO BID Lyrica (Pregabalin) 100 Mg Capsule 100 Mg PO BID 30 Days Polyethylene Glycol 3350 2,500 Gm Powder 17 Gm PO DAILY 30 Days Micatin (Miconazole Nitrate) 14 Gm Cream..g. 1 Crispin TP TID Tradjenta (Linagliptin) 5 Mg Tablet 5 Mg PO DAILY Lidocaine PATCH (Lidocaine) 1 Each Adh..patch 1 Each TP DAILY REMOVE AFTER 12 HOURS Levemir (Insulin Detemir) 100 Unit/1 Ml Vial 4 Unit SQ HS Hydroxyzine Hcl 25 Mg Tablet 25 Mg PO PRN Q6HRS PRN Fluticasone Propionate Nasal Atlantic (Fluticasone Propionate) 16 Gm Atlantic.susp 2 Atlantic NS DAILY Diclofenac Sodium 100 Gm Gel..gram. 100 Gm TP PRN TID PRN Losartan Potassium 100 Mg Tablet 25 Tab PO DAILY08 Vitals/I & O Vital Sign - Last 24 Hours 10/12/21 10/12/21 10/12/21 10/12/21 14:25 14:55 16:00 20:00 Temp 98.0 97.8 98.0 97.8 Pulse 76 74 Resp 14 14 16 14 B/P (MAP) 143/82 (102) 160/81 (107) Pulse Ox 98 98 99 99 O2 Delivery Room Air Room Air Room Air Room Air 10/12/21 10/13/21 10/13/21 10/13/21 20:00 00:00 04:00 08:00 Temp 97.2 98.0 97.2 98.0 Pulse 81 71 Resp 13 16 B/P (MAP) 119/61 (80) 98/55 (69) Pulse Ox 98 98 O2 Delivery Room Air Room Air Room Air Room Air 10/13/21 10/13/21 10/13/21 08:00 08:54 12:00 Temp 97.7 97.7 97.7 97.7 Pulse 72 71 74 Resp 16 16 B/P (MAP) 126/70 (88) 120/55 140/70 (93) Pulse Ox 97 98 O2 Delivery Room Air Room Air Intake and Output 10/12/21 10/12/21 10/13/21 15:00 23:00 07:00 Intake Total 480 ml 610 ml Output Total 600 ml 775 ml 300 ml Balance -120 ml -165 ml -300 ml Justifications for Admission Other Justification uncontrolled diabetes TERRY JURADO MD Oct 13, 2021 12:30
--- NOTE | 2021-10-13 14:41 | PDOC ---
PROGRESS NOTES Date of Service DATE: 10/13/21 TIME: 14:38 Subjective Subjective seen at 1000 POD #17 S/P Evacuation of epidural hematoma, s/p cervical laminectomy and fusion 09/25/21 pain well controlled, right shoulder pain improved with PT, biofreeze Objective Objective Vital Signs Date Time Temp Pulse Resp B/P (MAP) Pulse Ox O2 Delivery O2 Flow Rate FiO2 10/13/21 12:00 97.7 74 16 140/70 (93) 98 Room Air 97.7 10/11/21 17:07 2.0 Intake and Output 10/13/21 07:00 Intake Total 1090 ml Output Total 1675 ml Balance -585 ml Intake Oral 1090 ml Output Urine Total 1675 ml Physical Exam General: Alert, Oriented X3, Cooperative Neuro: Normal speech, Other (sensation intact in upper and lower extremities, moves upper extremities with 3/5 strength, hand grasps slightly stronger- finger extension improved, moving bilateral great toes) Skin: Other (dressing clean, dry and intact) Plan Plan of Care continue PT/ OT continue current plan SCDs arrangements being made for rehab/ SNF placement D/W RN Comment Review of Relevant I have reviewed the following items michelle (where applicable) has been applied. Labs Laboratory Tests Test 10/11/21 20:42 10/12/21 07:41 10/12/21 12:07 10/12/21 16:59 Glucose (Fingerstick) 152 mg/dL (70-99) 135 mg/dL (70-99) 183 mg/dL (70-99) 147 mg/dL (70-99) Test 10/12/21 20:46 10/13/21 08:47 10/13/21 12:03 Glucose (Fingerstick) 150 mg/dL (70-99) 141 mg/dL (70-99) 149 mg/dL (70-99) Laboratory Tests Test 10/12/21 16:59 10/12/21 20:46 10/13/21 08:47 10/13/21 12:03 Glucose (Fingerstick) 147 mg/dL (70-99) 150 mg/dL (70-99) 141 mg/dL (70-99) 149 mg/dL (70-99) Microbiology 10/01/21 Urine Culture - Final, Complete Escherichia Coli Escherichia Coli#2 Medications Current Medications Fentanyl Citrate (Fentanyl 2ml Vial) 25 mcg PRN Q5MIN PRN IVP MILD PAIN 1-3; Start 09/25/21 at 06:00; Stop 09/25/21 at 20:00; Status DC Fentanyl Citrate (Fentanyl 2ml Vial) 50 mcg PRN Q5MIN PRN IVP MODERATE PAIN 4-6 Last administered on 09/25/21at 13:48; Start 09/25/21 at 06:00; Stop 09/25/21 at 20:00; Status DC Morphine Sulfate (Morphine Sulfate) 1 mg PRN Q10MIN PRN IVP SEVERE PAIN 7-10 Last administered on 09/25/21at 14:21; Start 09/25/21 at 06:00; Stop 09/25/21 at 20:00; Status DC Ringer's Solution 1,000 ml @ 30 mls/hr Q24H IV Last administered on 09/25/21at 12:54; Start 09/25/21 at 06:00; Stop 09/25/21 at 17:59; Status DC Hydromorphone HCl (Dilaudid) 0.5 mg PRN Q10MIN PRN IVP SEVERE PAIN 7-10, 2nd CHOICE Last administered on 09/25/21at 16:53; Start 09/25/21 at 06:00; Stop 09/25/21 at 20:00; Status DC Prochlorperazine Edisylate (Compazine) 5 mg PACU PRN PRN IVP NAUSEA, MRX1; Start 09/25/21 at 06:00; Stop 09/25/21 at 20:00; Status DC Cefazolin Sodium 1 gm/Sodium Chloride 1,000 ml @ 1,000 mls/hr 1X ONCE IRR Last administered on 09/25/21at 10:14; Start 09/25/21 at 06:00; Stop 09/25/21 at 06:59; Status DC Cefazolin Sodium/ Dextrose 50 ml @ 100 mls/hr 1X PREOP PRN IV PRIOR TO PROCEDURE Last administered on 09/25/21at 09:30; Start 09/25/21 at 06:00; Stop 09/25/21 at 13:39; Status DC Insulin Human Lispro (HumaLOG VIAL for OP,RR ONLY) 0-10 units PRN Q1HR PRN SQ PER PROTOCOL Last administered on 09/25/21at 17:01; Start 09/25/21 at 07:00; Stop 09/25/21 at 18:00; Status DC Bupivacaine HCl/ Epinephrine Bitart (Sensorcain-Epi 0.5% Kit) 30 ml STK-MED ONCE INJ Last administered on 09/25/21at 10:14; Start 09/25/21 at 10:14; Stop 09/25/21 at 10:30; Status DC Ketorolac Tromethamine (Toradol Im) 60 mg STK-MED ONCE INJ Last administered on 09/25/21at 10:14; Start 09/25/21 at 10:14; Stop 09/25/21 at 10:30; Status DC Thrombin 20,000 unit STK-MED ONCE TP Last administered on 09/25/21at 10:14; Start 09/25/21 at 10:14; Stop 09/25/21 at 10:30; Status DC Gelatin (Gelfoam Size 100) 1 each STK-MED ONCE TP Last administered on 09/25/21at 10:14; Start 09/25/21 at 10:14; Stop 09/25/21 at 10:30; Status DC Acetaminophen (Tylenol) 650 mg PRN Q4HRS PRN PO TEMP OVER 100.4F OR MILD PAIN Last administered on 10/13/21 04:59; Start 09/25/21 at 12:30 Aspirin (Aspirin Chewable) 81 mg DAILY PO Last administered on 09/26/21 08:30; Start 09/26/21 at 09:00; Stop 09/28/21 at 17:19; Status DC Atorvastatin Calcium (Lipitor) 10 mg QHS PO Last administered on 10/12/21at 20:40; Start 09/25/21 at 21:00 Baclofen (Lioresal) 10 mg BID PO Last administered on 10/13/21 08:52; Start 09/25/21 at 21:00 Diazepam (Valium) 5 mg TID PO Last administered on 10/13/21at 14:06; Start 09/25/21 at 14:00 Docusate Sodium (Colace) 100 mg PRN BID PRN PO HARD STOOLS Last administered on 10/01/21at 20:28; Start 09/25/21 at 12:30 Fluticasone Propionate (Flonase) 2 spray DAILY NS Last administered on 10/13/21 08:55; Start 09/26/21 at 09:00 Hydroxyzine HCl (Atarax) 25 mg PRN Q6HRS PRN PO Itching (2ND Choice) Last administered on 10/11/21 09:58; Start 09/25/21 at 12:30 Lidocaine (Lidoderm) 1 patch QHS TP Last administered on 10/03/21 23:31; Start 09/25/21 at 20:00; Stop 10/05/21 at 01:01; Status DC Linagliptin (Tradjenta) 5 mg DAILY PO Last administered on 10/13/21 08:52; Start 09/25/21 at 13:00 Miconazole Nitrate (Monistat-Derm) 1 crispin TID TP Last administered on 10/04/21 20:08; Start 09/25/21 at 21:00; Stop 10/05/21 at 13:23; Status DC Midodrine (Proamatine) 2.5 mg PRN 1X PRN PO hypotension Last administered on 09/27/21 08:56; Start 09/25/21 at 12:30 Oxycodone HCl (Roxicodone) 10 mg PRN Q6HRS PRN PO MODERATE-SEVERE PAIN Last administered on 10/12/21 20:40; Start 09/25/21 at 12:30 Diclofenac Sodium (Voltaren) 1 crispin PRN TID PRN TP PAIN CONTROL; Start 09/25/21 at 13:15; Stop 09/25/21 at 18:37; Status DC Insulin Glargine (Lantus Syringe) 4 unit QHS SQ Last administered on 10/12/21 20:45; Start 09/25/21 at 21:00 Losartan Potassium (Cozaar) 25 mg DAILY08 PO Last administered on 10/13/21 08:54; Start 09/26/21 at 08:00 Polyethylene Glycol (miraLAX PACKET) 17 gm DAILY PO Last administered on 10/13/21 08:53; Start 09/25/21 at 14:00 Pregabalin (Lyrica) 100 mg BID PO Last administered on 10/13/21 08:53; Start 09/25/21 at 21:00 Acetaminophen (Tylenol) 650 mg PRN Q6HRS PRN PO MILD PAIN / TEMP > 100.3'F; Start 09/25/21 at 12:30; Status Cancel Al Hydroxide/Mg Hydroxide (Mylanta Plus Xs) 30 ml PRN Q3HRS PRN PO HEARTBURN / GAS; Start 09/25/21 at 12:30 Calcium Carbonate/ Glycine (Tums) 500 mg PRN Q3HRS PRN PO INDIGESTION; Start 09/25/21 at 12:30 Diphenhydramine HCl (Benadryl) 25 mg PRN Q6HRS PRN PO ITCHING (1ST CHOICE); Start 09/25/21 at 12:30 Naloxone HCl (Narcan) 0.1 mg PRN Q2MIN PRN IV SEE COMMENTS; Start 09/25/21 at 12:30 Sodium Chloride (Normal Saline Flush) 3 ml QSHIFT PRN IV AFTER MEDS AND BLOOD DRAWS; Start 09/25/21 at 12:30 Potassium Chloride/Sodium Chloride 1,000 ml @ 75 mls/hr [id number] IV Last administered on 09/26/21at 07:00; Start 09/25/21 at 12:30; Stop 09/26/21 at 17:33; Status DC Magnesium Hydroxide (Milk Of Magnesia) 2,400 mg PRN Q12HR PRN PO CONSTIPATION; Start 09/25/21 at 12:30 Cefazolin Sodium (Ancef) 1 gm Q8H IVP Last administered on 09/26/21at 04:14; Start 09/25/21 at 18:00; Stop 09/26/21 at 10:01; Status DC Fentanyl Citrate (Fentanyl 2ml Vial) 50 mcg PRN Q2HR PRN IVP MODERATE TO SEVERE PAIN Last administered on 10/05/21at 22:46; Start 09/25/21 at 12:30 Dextrose (Dextrose 50%-Water Syringe) 12.5 gm PRN Q15MIN PRN IV SEE COMMENTS; Start 09/25/21 at 12:30; Status Cancel Dextrose (Iv Dextrose 5%) 250 ml PRN Q15MIN PRN IV SEE COMMENTS; Start 09/25/21 at 12:30; Status Cancel Gelatin (Gelfoam Size 100) 1 each STK-MED ONCE .ROUTE ; Start 09/25/21 at 06:37; Stop 09/25/21 at 14:55; Status DC Bupivacaine HCl/ Epinephrine Bitart (Sensorcain-Epi 0.5% Kit) 30 ml STK-MED ONCE .ROUTE ; Start 09/25/21 at 06:37; Stop 09/25/21 at 14:55; Status DC Ketorolac Tromethamine (Toradol Im) 60 mg STK-MED ONCE .ROUTE ; Start 09/25/21 at 06:37; Stop 09/25/21 at 14:55; Status DC Thrombin 20,000 unit STK-MED ONCE TP ; Start 09/25/21 at 06:38; Stop 09/25/21 at 14:55; Status DC Propofol (Diprivan) 200 mg STK-MED ONCE IV ; Start 09/25/21 at 05:54; Stop 09/25/21 at 14:57; Status DC Lidocaine HCl (Lidocaine Pf 2% Vial) 5 ml STK-MED ONCE .ROUTE ; Start 09/25/21 at 05:54; Stop 09/25/21 at 14:57; Status DC Ondansetron HCl (Zofran) 4 mg STK-MED ONCE .ROUTE ; Start 09/25/21 at 05:54; Stop 09/25/21 at 14:57; Status DC Phenylephrine HCl (Ramone-Synephrine Inj) 10 mg STK-MED ONCE .ROUTE ; Start 09/25/21 at 05:54; Stop 09/25/21 at 14:57; Status DC Propofol 50 ml @ As Directed STK-MED ONCE IV ; Start 09/25/21 at 05:54; Stop 09/25/21 at 14:57; Status DC Dexamethasone Sodium Phosphate (Decadron) 4 mg STK-MED ONCE .ROUTE ; Start 09/25/21 at 05:54; Stop 09/25/21 at 14:57; Status DC Fentanyl Citrate (Fentanyl 2ml Vial) 100 mcg STK-MED ONCE .ROUTE ; Start 09/25/21 at 05:54; Stop 09/25/21 at 14:57; Status DC Succinylcholine Chloride (Anectine) 200 mg STK-MED ONCE .ROUTE ; Start 09/25/21 at 05:54; Stop 09/25/21 at 14:57; Status DC Remifentanil HCl (Ultiva) 1 mg STK-MED ONCE IV ; Start 09/25/21 at 05:54; Stop 09/25/21 at 14:57; Status DC Glycopyrrolate (Robinul) 1 mg STK-MED ONCE .ROUTE ; Start 09/25/21 at 07:11; Stop 09/25/21 at 15:01; Status DC Propofol 50 ml @ As Directed STK-MED ONCE IV ; Start 09/25/21 at 08:07; Stop 09/25/21 at 15:02; Status DC Ketamine HCl (Ketamine) 50 mg STK-MED ONCE .ROUTE ; Start 09/25/21 at 08:15; Stop 09/25/21 at 15:02; Status DC Hydromorphone HCl (Dilaudid) 2 mg STK-MED ONCE .ROUTE ; Start 09/25/21 at 10:44; Stop 09/25/21 at 15:03; Status DC Fentanyl Citrate (Fentanyl 2ml Vial) 100 mcg STK-MED ONCE .ROUTE ; Start 09/25/21 at 13:26; Stop 09/25/21 at 15:04; Status DC Morphine Sulfate (Morphine Sulfate) 2 mg STK-MED ONCE .ROUTE ; Start 09/25/21 at 14:04; Stop 09/25/21 at 15:05; Status DC Hydromorphone HCl (Dilaudid) 2 mg STK-MED ONCE .ROUTE ; Start 09/25/21 at 14:54; Stop 09/25/21 at 15:06; Status DC Menthol/Methyl Salicylate ([place] Greaseless Cream) 1 crispin PRN Q30MIN PRN TP MUSCLE PAIN Last administered on 10/02/21at 21:03; Start 09/25/21 at 18:45 Mupirocin (Bactroban) 1 crispin BID NS Last administered on 10/12/21at 21:09; Start 09/26/21 at 09:00; Stop 10/13/21 at 07:56; Status DC Dexamethasone Sodium Phosphate (Decadron) 10 mg 1X ONCE IVP Last administered on 09/26/21at 07:31; Start 09/26/21 at 07:30; Stop 09/26/21 at 07:31; Status DC Cefazolin Sodium 1 gm/Sodium Chloride 1,000 ml @ 1,000 mls/hr 1X ONCE IRR Last administered on 09/26/21at 11:52; Start 09/26/21 at 10:30; Stop 09/26/21 at 11:29; Status DC Cefazolin Sodium (Ancef) 1 gm STK-MED ONCE IVP ; Start 09/26/21 at 10:05; Stop 09/26/21 at 10:06; Status DC Lidocaine HCl (Lidocaine Pf 2% Vial) 5 ml STK-MED ONCE .ROUTE ; Start 09/26/21 at 10:18; Stop 09/26/21 at 10:18; Status DC Ondansetron HCl (Zofran) 4 mg STK-MED ONCE .ROUTE ; Start 09/26/21 at 10:18; Stop 09/26/21 at 10:18; Status DC Propofol (Diprivan) 200 mg STK-MED ONCE IV ; Start 09/26/21 at 10:18; Stop 09/26/21 at 10:19; Status DC Dexamethasone Sodium Phosphate (Decadron) 4 mg STK-MED ONCE .ROUTE ; Start 09/26/21 at 10:18; Stop 09/26/21 at 10:19; Status DC Sevoflurane (Ultane) 30 ml STK-MED ONCE IH ; Start 09/26/21 at 10:18; Stop 09/26/21 at 10:19; Status DC Fentanyl Citrate (Fentanyl 2ml Vial) 100 mcg STK-MED ONCE .ROUTE ; Start 09/26/21 at 10:19; Stop 09/26/21 at 10:19; Status DC Rocuronium [place] (Zemuron) 50 mg STK-MED ONCE .ROUTE ; Start 09/26/21 at 10:19; Stop 09/26/21 at 10:19; Status DC Insulin Human Lispro (HumaLOG VIAL for OP,RR ONLY) 0-10 units PRN Q1HR PRN SQ PER PROTOCOL Last administered on 09/26/21at 15:11; Start 09/26/21 at 10:30; Stop 09/26/21 at 18:00; Status DC Sugammadex Sodium (Bridion) 200 mg 1X ONCE IVP Last administered on 09/26/21at 10:30; Start 09/26/21 at 10:30; Stop 09/26/21 at 10:31; Status DC Gelatin (Gelfoam Size 100) 1 each STK-MED ONCE .ROUTE Last administered on 09/26/21at 11:52; Start 09/26/21 at 10:30; Stop 09/26/21 at 10:30; Status DC Bupivacaine HCl/ Epinephrine Bitart (Sensorcain-Epi 0.5% Kit) 30 ml STK-MED ONCE .ROUTE ; Start 09/26/21 at 10:30; Stop 09/26/21 at 10:30; Status DC Ketorolac Tromethamine (Toradol Im) 60 mg STK-MED ONCE .ROUTE ; Start 09/26/21 at 10:30; Stop 09/26/21 at 10:30; Status DC Thrombin 20,000 unit STK-MED ONCE TP Last administered on 09/26/21at 11:52; Start 09/26/21 at 10:30; Stop 09/26/21 at 10:31; Status DC Cefazolin Sodium/ Dextrose 50 ml @ As Directed STK-MED ONCE IV ; Start 09/26/21 at 10:32; Stop 09/26/21 at 10:32; Status DC Vancomycin HCl 1 gm/Sodium Chloride 250 ml @ 250 mls/hr PREOP PRN PRN IV PRIOR TO PROCEDURE; Start 09/26/21 at 10:45; Stop 09/26/21 at 14:00; Status DC Cefazolin Sodium/ Dextrose 50 ml @ 100 mls/hr 1X ONCE IV Last administered on 09/26/21at 11:00; Start 09/26/21 at 11:00; Stop 09/26/21 at 11:29; Status DC Dexamethasone Sodium Phosphate (Decadron) 4 mg STK-MED ONCE .ROUTE ; Start 09/26/21 at 11:04; Stop 09/26/21 at 11:04; Status DC Glycopyrrolate (Robinul) 1 mg STK-MED ONCE .ROUTE ; Start 09/26/21 at 11:04; Stop 09/26/21 at 11:04; Status DC Hydromorphone HCl (Dilaudid) 2 mg STK-MED ONCE .ROUTE ; Start 09/26/21 at 11:56; Stop 09/26/21 at 11:56; Status DC Fentanyl Citrate (Fentanyl 2ml Vial) 25 mcg PRN Q5MIN PRN IVP MILD PAIN 1-3; Start 09/26/21 at 14:30; Stop 09/26/21 at 18:15; Status DC Fentanyl Citrate (Fentanyl 2ml Vial) 50 mcg PRN Q5MIN PRN IVP MODERATE PAIN 4- 6; Start 09/26/21 at 14:30; Stop 09/26/21 at 18:15; Status DC Morphine Sulfate (Morphine Sulfate) 1 mg PRN Q10MIN PRN IVP SEVERE PAIN 7-10; Start 09/26/21 at 14:30; Stop 09/26/21 at 18:15; Status DC Ringer's Solution 1,000 ml @ 30 mls/hr Q24H IV Last administered on 09/26/21at 15:18; Start 09/26/21 at 14:30; Stop 09/26/21 at 21:00; Status DC Hydromorphone HCl (Dilaudid) 0.5 mg PRN Q10MIN PRN IVP SEVERE PAIN 7-10, 2nd CHOICE; Start 09/26/21 at 14:30; Stop 09/26/21 at 18:15; Status DC Prochlorperazine Edisylate (Compazine) 5 mg PACU PRN PRN IVP NAUSEA, MRX1; Start 09/26/21 at 14:30; Stop 09/26/21 at 21:00; Status DC Fentanyl Citrate (Fentanyl 2ml Vial) 100 mcg STK-MED ONCE .ROUTE ; Start 09/26/21 at 14:23; Stop 09/26/21 at 14:25; Status DC Fentanyl Citrate (Fentanyl 2ml Vial) 25 mcg PRN Q5MIN PRN IVP MILD PAIN 1-3; Start 09/26/21 at 14:30; Stop 09/27/21 at 14:29; Status UNV Fentanyl Citrate (Fentanyl 2ml Vial) 50 mcg PRN Q5MIN PRN IVP MODERATE PAIN 4- 6; Start 09/26/21 at 14:30; Stop 09/27/21 at 14:29; Status UNV Morphine Sulfate (Morphine Sulfate) 1 mg PRN Q10MIN PRN IVP SEVERE PAIN 7-10; Start 09/26/21 at 14:30; Stop 09/27/21 at 14:29; Status UNV Ringer's Solution 1,000 ml @ 30 mls/hr Q24H IV ; Start 09/26/21 at 14:30; Stop 09/27/21 at 02:29; Status UNV Hydromorphone HCl (Dilaudid) 0.5 mg PRN Q10MIN PRN IVP SEVERE PAIN 7-10, 2nd CHOICE; Start 09/26/21 at 14:30; Stop 09/27/21 at 14:29; Status UNV Prochlorperazine Edisylate (Compazine) 5 mg PACU PRN PRN IVP NAUSEA, MRX1; Start 09/26/21 at 14:30; Stop 09/27/21 at 14:29; Status UNV Dexamethasone Sodium Phosphate (Decadron) 4 mg Q6HRS IVP Last administered on 09/28/21at 05:06; Start 09/26/21 at 18:00; Stop 09/28/21 at 06:00; Status DC Sodium Chloride 1,000 ml @ 100 mls/hr Q10H IV Last administered on 10/05/21at 06:41; Start 09/26/21 at 17:30; Stop 10/05/21 at 13:48; Status DC Cefazolin Sodium (Ancef) 1 gm Q8HRS IVP ; Start 09/27/21 at 06:00; Stop 09/27/21 at 05:47; Status DC Vancomycin HCl 1 gm/Sodium Chloride 250 ml @ 166.667 mls/hr 1X ONCE IV Last administered on 09/27/21at 06:27; Start 09/27/21 at 06:00; Stop 09/27/21 at 07:29; Status DC Gadoterate Meglumine (Clariscan) 19 ml 1X ONCE IVP Last administered on 09/29/21at 10:32; Start 09/29/21 at 08:15; Stop 09/29/21 at 08:17; Status DC Bisacodyl (Dulcolax Supp) 10 mg PRN DAILY PRN MS CONSTIPATION; Start 09/29/21 at 14:15 Lactulose (Lactulose) 20 gm PRN DAILY PRN PO CONSTIPATION, 2nd choice Last administered on 10/01/21at 08:35; Start 09/29/21 at 14:30 Ascorbic Acid (Vitamin C) 500 mg DAILY PO Last administered on 10/13/21at 08:52; Start 10/02/21 at 10:00 Levofloxacin/ Dextrose 100 ml @ 100 mls/hr Q24H IV Last administered on 10/02/21at 12:15; Start 10/02/21 at 12:00; Stop 10/03/21 at 08:57; Status DC Levofloxacin/ Dextrose 50 ml @ 50 mls/hr Q24H IV Last administered on 10/06/21at 15:19; Start 10/03/21 at 12:00; Stop 10/06/21 at 23:00; Status DC Lactobacillus Rhamnosus (Culturelle) 1 cap BID PO Last administered on 10/13/21at 08:52; Start 10/03/21 at 21:00 Lidocaine (Lidoderm) 1 patch QHS TP Last administered on 10/12/21at 20:41; Start 10/04/21 at 22:00 Levofloxacin (Levaquin) 250 mg DAILY06 PO Last administered on 10/11/21at 06:13; Start 10/07/21 at 06:00; Stop 10/11/21 at 12:00; Status DC Insulin Human Lispro (HumaLOG) 0-5 UNITS TIDWMEALS SQ Last administered on 10/12/21at 12:10; Start 10/12/21 at 08:00 Dextrose (Dextrose 50%-Water Syringe) 12.5 gm PRN Q15MIN PRN IV SEE COMMENTS; Start 10/11/21 at 19:00 Dextrose (Iv Dextrose 5%) 250 ml PRN Q15MIN PRN IV SEE COMMENTS; Start 10/11/21 at 19:00 Active Scripts Active Dok (Docusate Sodium) 100 Mg Capsule 100 Mg PO PRN BID PRN 30 Days Tylenol (Acetaminophen) 325 Mg Tablet 650 Mg PO PRN Q4HRS PRN 30 Days Valium (Diazepam) 5 Mg Tablet 5 Mg PO TID Atorvastatin Calcium 10 Mg Tablet 10 Mg PO QHS Reported Midodrine Hcl 2.5 Mg Tablet 2.5 Mg PO PRN 1X PRN Aspirin 81 Mg Tab.chew 81 Mg PO DAILY Baclofen 10 Mg Tablet 10 Mg PO BID Lyrica (Pregabalin) 100 Mg Capsule 100 Mg PO BID 30 Days Polyethylene Glycol 3350 2,500 Gm Powder 17 Gm PO DAILY 30 Days Micatin (Miconazole Nitrate) 14 Gm Cream..g. 1 [place] TP TID Tradjenta (Linagliptin) 5 Mg Tablet 5 Mg PO DAILY Lidocaine PATCH (Lidocaine) 1 Each Adh..patch 1 Each TP DAILY REMOVE AFTER 12 HOURS Levemir (Insulin Detemir) 100 Unit/1 Ml Vial 4 Unit SQ HS Hydroxyzine Hcl 25 Mg Tablet 25 Mg PO PRN Q6HRS PRN Fluticasone Propionate Nasal [place] (Fluticasone Propionate) 16 Gm [place].susp 2 [place] NS DAILY Diclofenac Sodium 100 Gm Gel..gram. 100 Gm TP PRN TID PRN Losartan Potassium 100 Mg Tablet 25 Tab PO DAILY08 Vitals/I & O Vital Sign - Last 24 Hours 10/12/21 10/12/21 10/12/21 10/12/21 14:55 16:00 20:00 20:00 Temp 98.0 97.8 98.0 97.8 Pulse 76 74 Resp 14 16 14 B/P (MAP) 143/82 (102) 160/81 (107) Pulse Ox 98 99 99 O2 Delivery Room Air Room Air Room Air Room Air 10/13/21 10/13/21 10/13/21 10/13/21 00:00 04:00 08:00 08:00 Temp 97.2 98.0 97.7 97.2 98.0 97.7 Pulse 81 71 72 Resp 13 16 16 B/P (MAP) 119/61 (80) 98/55 (69) 126/70 (88) Pulse Ox 98 98 97 O2 Delivery Room Air Room Air Room Air Room Air 10/13/21 10/13/21 08:54 12:00 Temp 97.7 97.7 Pulse 71 74 Resp 16 B/P (MAP) 120/55 140/70 (93) Pulse Ox 98 O2 Delivery Room Air Intake and Output 10/12/21 10/12/21 10/13/21 15:00 23:00 07:00 Intake Total 480 ml 610 ml Output Total 600 ml 775 ml 300 ml Balance -120 ml -165 ml -300 ml Justifications for Admission Other Justification uncontrolled diabetes TODD RIVERA PERIANESTHESIA MANAGER Oct 13, 2021 14:41
[2021-10-13 16:00] VITALS: BP 156/74
[2021-10-13] MEDS: oxyCODONE IR 5 MG TABLET PO PRN (18:48)
[2021-10-13 20:00] VITALS: BP 140/67
[2021-10-13] MEDS: ATORVASTATIN CALCIUM 10 MG TABLET. PO SCH (20:36)
[2021-10-13] MEDS: LIDOCAINE (700MG/PATCH) PATCH. TP SCH (20:37)
[2021-10-13] MEDS: INSULIN GLARGINE SYRINGE. SQ SCH (20:50)
[2021-10-13] MEDS: hydrOXYzine 25 MG TABLET PO PRN (20:52)
[2021-10-14] VITALS: BP 91/49
[2021-10-14] MEDS: ACETAMINOPHEN 325 MG TABLET. PO PRN (00:25)
[2021-10-14 04:00] VITALS: BP 97/50
[2021-10-14] MEDS: oxyCODONE IR 5 MG TABLET PO PRN ×3 (07:03→22:59)
[2021-10-14 08:00] VITALS: BP 138/72
[2021-10-14] MEDS: INSULIN LISPRO 300 UNITS/3 ML VIAL. SQ SCH ×3 (08:00→17:00)
--- NOTE | 2021-10-14 08:25 | PDOC ---
[employer] PROGRESS NOTE Date of Service DOS: DATE: 10/14/21 TIME: 08:18 Chief Complaint Chief Complaint Cervical spinal cord injury - Concern for C5 cord edema, cord compression, a right lateral C5 fracture, and concern for numerous ligamentous injuries. 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 S/p decompression 07/26/2021 and repeat surgeries 09/25 and 09/26 Diabetes - sliding scale plus basal HTN - prn hydralazine HLD - statin when taking PO Cervical laminectomy as per above, diabetes, hypertension, hyperlipidemia, arthritis, GERD, left knee arthroplasty and TIA S/p; IVC filter FEN - ADAT PPX - SCDs FULL CODE Dispo - Inpatient History of Present Illness History of Present Illness 10/14: Seen bedside in ICU. Still with spasming upon awakening in his hands and feet still with some weakness in his left foot. Poor appetite. 10/13/2021 Patient seen and examined Discussed with RN Discussed with case management Chart reviewed Discussed with neurosurgery nurse practitioner Roberta 10/12/2021 Patient seen and examined Discussed with RN Chart reviewed Discussed with case management 10/11/2021 Patient seen and examined Discussed with RN Chart reviewed His discharge was held again as he was not accepted at [facility] 10/09/2021 Patient seen and examined Discussed with RN Chart reviewed Discussed with case management His sister is here as well discussed with her Plan is to get the patient to [facility] if they accept him 10/08/2019 Patient seen and examined He is moving his toes more each day Discussed with RN Chart reviewed 10/07/2021 Patient seen and examined in the ICU (he is actually in overfull patient) He is working with his nurse to try to use his nurse button and remote control Started to move his toes a little bit Doing much better 10/06/2021 Patient seen and examined in the ICU I discussed the case with his sister again I also discussed the case with case management [facility] rehab may consider taking him after all now that he is improved over the past 3 days 10/05/2021 Patient seen and examined in the ICU His nurses are starting to get ready to clean him up His sister is present Discussed with RN Discussed with case management we are still awaiting rehab [facility] if it can be arranged 10/04/2021 Patient seen and examined again in the ICU He remains very weak cannot move his legs was able to move his hands His sister is present I called case management they are checking into possibly if he could go to [facility] Chart reviewed 10/03/2021 Patient seen and examined in the ICU Chart reviewed Discussed with RN Called case management We are hoping to get the patient transferred to [facility] if [facility] (they are evaluating his admission criteria to rehab) 10/02/2021 Patient seen and examined in the ICU He is still unable to move his legs He is able to move his hands and arms slightly but is very weak at bedside Chart reviewed Discussed with RN I called case management to see if maybe he could go to [facility] rehab sometime soon 10/01 Patient evaluated examined at bedside. Continues to improve. Continue rehab. Plan discussed with bedside RN. 09/30 Patient evaluated examined at bedside. Clinically about the same from yesterday. Continue rehab modalities. Labs stable. Plan discussed with bedside RN. 09/29 Patient evaluated at bedside. Underwent MRI this morning. Symptoms very similar to yesterday but he feels like he is regaining some function. Pain controlled. PT OT. Hemoglovin stable. 09/28 Evaluate examined at bedside. Resting in bed had no complaints to me. Said pain is quite improved. Did okay with transfusion yesterday. Continue current treatments. PT/OT. Discussed with bedside RN. Roxi 09/27 Patient evaluated examined at bedside. Was resting in bed easily awoken able to answer some questions. Some movement in his upper extremities but very limited in lower. Transfuse 1 unit today. Plan discussed with RN. Mr Terrell is a 60-year-old male w/ PMHx prediabetes, HLD, HTN and recent fal l in July 2021 with cervical myelopathy and s/p cervical decompression with ACDF C5-6 07/26/2021 On 09/25/21 underwent cervical laminectomy, C3, C4, C5, C6, partial C7 with lateral mass fusion C3 through C7, Posterior nstrumentation C3-C7 on the left and posterior instrumentation C-C6 on the right. On 09/26/21 returned to OR for cervical hematoma evacuation. Vitals/I&O Vitals/I&O: Vital Signs Date Time Temp Pulse Resp B/P (MAP) Pulse Ox O2 Delivery O2 Flow Rate FiO2 10/14/21 04:00 98.0 57 12 97/50 (66) 97 Room Air 98.0 I & O 10/13/21 10/13/21 10/14/21 15:00 23:00 07:00 Intake Total 940 ml 560 ml 100 ml Output Total 200 ml 350 ml 100 ml Balance 740 ml 210 ml 0 ml Physical Exam General: Alert, Oriented X3, Cooperative Heart: Regular rate Lungs: Clear Abdomen: Normal bowel sounds, Soft, No tenderness Extremities: No edema, Normal pulses Skin: Other (dressing clean, dry and intact) Labs Labs: Laboratory Tests Test 10/13/21 08:47 10/13/21 12:03 10/13/21 16:42 10/13/21 20:40 Glucose (Fingerstick) 141 mg/dL (70-99) 149 mg/dL (70-99) 169 mg/dL (70-99) 175 mg/dL (70-99) Test 10/14/21 08:09 Glucose (Fingerstick) 121 mg/dL (70-99) Comment Review of Relevant I have reviewed the following items michelle (where applicable) has been applied. Justifications for Admission Other Justification uncontrolled diabetes STACY HOUSTON MD Oct 14, 2021 08:25
[2021-10-14] MEDS: POLYETHYLENE GLYCOL 3350 17 GM PACKET. PO SCH (09:00)
[2021-10-14] MEDS: FLUTICASONE 50MCG/NASAL SPRAY 16GM BOTTLE. NS SCH (09:00)
[2021-10-14] MEDS: ASCORBIC ACID 500 MG TABLET PO SCH (09:06)
[2021-10-14] MEDS: BACLOFEN 10 MG TABLET. PO SCH ×2 (09:06→21:01)
[2021-10-14] MEDS: LINAGLIPTIN 5 MG TABLET PO SCH (09:06)
[2021-10-14] MEDS: LOSARTAN POTASSIUM 25 MG TABLET. PO SCH (09:07)
[2021-10-14] MEDS: LACTOBACILLUS RHAMNOSUS GG 1 CAPSULE. PO SCH ×2 (09:07→21:00)
[2021-10-14] MEDS: PREGABALIN 50 MG CAPSULE PO SCH ×2 (09:08→21:01)
[2021-10-14] MEDS: diazePAM 5 MG TABLET PO SCH ×3 (09:08→22:59)
--- NOTE | 2021-10-14 10:57 | PDOC ---
PROGRESS NOTES Date of Service DATE: 10/14/21 TIME: 10:54 Subjective Subjective He feels better with right shoulder pain and stiffness. Objective Objective Vital Signs Date Time Temp Pulse Resp B/P (MAP) Pulse Ox O2 Delivery O2 Flow Rate FiO2 10/14/21 09:07 64 138/72 10/14/21 07:33 14 96 Room Air 10/14/21 04:00 98.0 98.0 10/11/21 17:07 2.0 l Intake and Output 10/14/21 07:00 Intake Total 1600 ml Output Total 650 ml Balance 950 ml Intake Oral 1600 ml Output Urine Total 650 ml Physical Exam Physical Exam He is alert,supine in bed with head end propped up and seems to be comfortable. He had moved whole right foot toes,left big toe and slightly stronger right hip adduction and extension today. Plan Plan of Care To continue present care efforts while waiting for SNF or rehab unit transfer. Comment Review of Relevant I have reviewed the following items michelle (where applicable) has been applied. Labs Laboratory Tests Test 10/12/21 12:07 10/12/21 16:59 10/12/21 20:46 10/13/21 08:47 Glucose (Fingerstick) 183 mg/dL (70-99) 147 mg/dL (70-99) 150 mg/dL (70-99) 141 mg/dL (70-99) Test 10/13/21 12:03 10/13/21 16:42 10/13/21 20:40 10/14/21 08:09 Glucose (Fingerstick) 149 mg/dL (70-99) 169 mg/dL (70-99) 175 mg/dL (70-99) 121 mg/dL (70-99) Laboratory Tests Test 10/13/21 12:03 10/13/21 16:42 10/13/21 20:40 10/14/21 08:09 Glucose (Fingerstick) 149 mg/dL (70-99) 169 mg/dL (70-99) 175 mg/dL (70-99) 121 mg/dL (70-99) Microbiology 10/01/21 Urine Culture - Final, Complete Escherichia Coli Escherichia Coli#2 Medications Current Medications Fentanyl Citrate (Fentanyl 2ml Vial) 25 mcg PRN Q5MIN PRN IVP MILD PAIN 1-3; Start 09/25/21 at 06:00; Stop 09/25/21 at 20:00; Status DC Fentanyl Citrate (Fentanyl 2ml Vial) 50 mcg PRN Q5MIN PRN IVP MODERATE PAIN 4-6 Last administered on 09/25/21at 13:48; Start 09/25/21 at 06:00; Stop 09/25/21 at 20:00; Status DC Morphine Sulfate (Morphine Sulfate) 1 mg PRN Q10MIN PRN IVP SEVERE PAIN 7-10 Last administered on 09/25/21at 14:21; Start 09/25/21 at 06:00; Stop 09/25/21 at 20:00; Status DC Ringer's Solution 1,000 ml @ 30 mls/hr Q24H IV Last administered on 09/25/21at 12:54; Start 09/25/21 at 06:00; Stop 09/25/21 at 17:59; Status DC Hydromorphone HCl (Dilaudid) 0.5 mg PRN Q10MIN PRN IVP SEVERE PAIN 7-10, 2nd CHOICE Last administered on 09/25/21at 16:53; Start 09/25/21 at 06:00; Stop 09/25/21 at 20:00; Status DC Prochlorperazine Edisylate (Compazine) 5 mg PACU PRN PRN IVP NAUSEA, MRX1; Start 09/25/21 at 06:00; Stop 09/25/21 at 20:00; Status DC Cefazolin Sodium 1 gm/Sodium Chloride 1,000 ml @ 1,000 mls/hr 1X ONCE IRR Last administered on 09/25/21at 10:14; Start 09/25/21 at 06:00; Stop 09/25/21 at 06:59; Status DC Cefazolin Sodium/ Dextrose 50 ml @ 100 mls/hr 1X PREOP PRN IV PRIOR TO PROCEDURE Last administered on 09/25/21at 09:30; Start 09/25/21 at 06:00; Stop 09/25/21 at 13:39; Status DC Insulin Human Lispro (HumaLOG VIAL for OP,RR ONLY) 0-10 units PRN Q1HR PRN SQ PER PROTOCOL Last administered on 09/25/21at 17:01; Start 09/25/21 at 07:00; Stop 09/25/21 at 18:00; Status DC Bupivacaine HCl/ Epinephrine Bitart (Sensorcain-Epi 0.5% Kit) 30 ml STK-MED ONCE INJ Last administered on 09/25/21 10:14; Start 09/25/21 at 10:14; Stop 09/25/21 at 10:30; Status DC Ketorolac Tromethamine (Toradol Im) 60 mg STK-MED ONCE INJ Last administered on 09/25/21at 10:14; Start 09/25/21 at 10:14; Stop 09/25/21 at 10:30; Status DC Thrombin 20,000 unit STK-MED ONCE TP Last administered on 09/25/21at 10:14; Sta rt 09/25/21 at 10:14; Stop 09/25/21 at 10:30; Status DC Gelatin (Gelfoam Size 100) 1 each STK-MED ONCE TP Last administered on 10:14; Start 09/25/21 at 10:14; Stop 09/25/21 at 10:30; Status DC Acetaminophen (Tylenol) 650 mg PRN Q4HRS PRN PO TEMP OVER 100.4F OR MILD PAIN Last administered on 10/14/21at 00:25; Start 09/25/21 at 12:30 Aspirin (Aspirin Chewable) 81 mg DAILY PO Last administered on 09/26/21at 08:30; Start 09/26/21 at 09:00; Stop 09/28/21 at 17:19; Status DC Atorvastatin Calcium (Lipitor) 10 mg QHS PO Last administered on 10/13/21at 20:36; Start 09/25/21 at 21:00 Baclofen (Lioresal) 10 mg BID PO Last administered on 10/14/21at 09:06; Start 09/25/21 at 21:00 Diazepam (Valium) 5 mg TID PO Last administered on 10/14/21 09:08; Start 09/25/21 at 14:00 Docusate Sodium (Colace) 100 mg PRN BID PRN PO HARD STOOLS Last administered on 10/01/21 20:28; Start 09/25/21 at 12:30 Fluticasone Propionate (Flonase) 2 spray DAILY NS Last administered on 10/13/21 08:55; Start 09/26/21 at 09:00 Hydroxyzine HCl (Atarax) 25 mg PRN Q6HRS PRN PO Itching (2ND Choice) Last administered on 10/13/21 20:52; Start 09/25/21 at 12:30 Lidocaine (Lidoderm) 1 patch QHS TP Last administered on 10/03/21at 23:31; Start 09/25/21 at 20:00; Stop 10/05/21 at 01:01; Status DC Linagliptin (Tradjenta) 5 mg DAILY PO Last administered on 10/14/21at 09:06; Start 09/25/21 at 13:00 Miconazole Nitrate (Monistat-Derm) 1 crispin TID TP Last administered on 10/04/21at 20:08; Start 09/25/21 at 21:00; Stop 10/05/21 at 13:23; Status DC Midodrine (Proamatine) 2.5 mg PRN 1X PRN PO hypotension Last administered on 09/27/21at 08:56; Start 09/25/21 at 12:30 Oxycodone HCl (Roxicodone) 10 mg PRN Q6HRS PRN PO MODERATE-SEVERE PAIN Last administered on 10/14/21at 07:03; Start 09/25/21 at 12:30 Diclofenac Sodium (Voltaren) 1 crispin PRN TID PRN TP PAIN CONTROL; Start 09/25/21 at 13:15; Stop 09/25/21 at 18:37; Status DC Insulin Glargine (Lantus Syringe) 4 unit QHS SQ Last administered on 10/13/21at 20:50; Start 09/25/21 at 21:00 Losartan Potassium (Cozaar) 25 mg DAILY08 PO Last administered on 10/14/21at 09:07; Start 09/26/21 at 08:00 Polyethylene Glycol (miraLAX PACKET) 17 gm DAILY PO Last administered on 10/13/21at 08:53; Start 09/25/21 at 14:00 Pregabalin (Lyrica) 100 mg BID PO Last administered on 10/14/21at 09:08; Start 09/25/21 at 21:00 Acetaminophen (Tylenol) 650 mg PRN Q6HRS PRN PO MILD PAIN / TEMP > 100.3'F; Start 09/25/21 at 12:30; Status Cancel Al Hydroxide/Mg Hydroxide (Mylanta Plus Xs) 30 ml PRN Q3HRS PRN PO HEARTBURN / GAS; Start 09/25/21 at 12:30 Calcium Carbonate/ Glycine (Tums) 500 mg PRN Q3HRS PRN PO INDIGESTION; Start 09/25/21 at 12:30 Diphenhydramine HCl (Benadryl) 25 mg PRN Q6HRS PRN PO ITCHING (1ST CHOICE); Start 09/25/21 at 12:30 Naloxone HCl (Narcan) 0.1 mg PRN Q2MIN PRN IV SEE COMMENTS; Start 09/25/21 at 12 :30 Sodium Chloride (Normal Saline Flush) 3 ml QSHIFT PRN IV AFTER MEDS AND BLOOD DRAWS; Start 09/25/21 at 12:30 Potassium Chloride/Sodium Chloride 1,000 ml @ 75 mls/hr [id number] IV Last administered on 09/26/21at 07:00; Start 09/25/21 at 12:30; Stop 09/26/21 at 17:33; Status DC Magnesium Hydroxide (Milk Of Magnesia) 2,400 mg PRN Q12HR PRN PO CONSTIPATION; Start 09/25/21 at 12:30 Cefazolin Sodium (Ancef) 1 gm Q8H IVP Last administered on 09/26/21at 04:14; Start 09/25/21 at 18:00; Stop 09/26/21 at 10:01; Status DC Fentanyl Citrate (Fentanyl 2ml Vial) 50 mcg PRN Q2HR PRN IVP MODERATE TO SEVERE PAIN Last administered on 10/05/21at 22:46; Start 09/25/21 at 12:30 Dextrose (Dextrose 50%-Water Syringe) 12.5 gm PRN Q15MIN PRN IV SEE COMMENTS; Start 09/25/21 at 12:30; Status Cancel Dextrose (Iv Dextrose 5%) 250 ml PRN Q15MIN PRN IV SEE COMMENTS; Start 09/25/21 at 12:30; Status Cancel Gelatin (Gelfoam Size 100) 1 each STK-MED ONCE .ROUTE ; Start 09/25/21 at 06:37; Stop 09/25/21 at 14:55; Status DC Bupivacaine HCl/ Epinephrine Bitart (Sensorcain-Epi 0.5% Kit) 30 ml STK-MED ONCE .ROUTE ; Start 09/25/21 at 06:37; Stop 09/25/21 at 14:55; Status DC Ketorolac Tromethamine (Toradol Im) 60 mg STK-MED ONCE .ROUTE ; Start 09/25/21 at 06:37; Stop 09/25/21 at 14:55; Status DC Thrombin 20,000 unit STK-MED ONCE TP ; Start 09/25/21 at 06:38; Stop 09/25/21 at 14:55; Status DC Propofol (Diprivan) 200 mg STK-MED ONCE IV ; Start 09/25/21 at 05:54; Stop 09/25/21 at 14:57; Status DC Lidocaine HCl (Lidocaine Pf 2% Vial) 5 ml STK-MED ONCE .ROUTE ; Start 09/25/21 at 05:54; Stop 09/25/21 at 14:57; Status DC Ondansetron HCl (Zofran) 4 mg STK-MED ONCE .ROUTE ; Start 09/25/21 at 05:54; Stop 09/25/21 at 14:57; Status DC Phenylephrine HCl (Ramone-Synephrine Inj) 10 mg STK-MED ONCE .ROUTE ; Start 09/25/21 at 05:54; Stop 09/25/21 at 14:57; Status DC Propofol 50 ml @ As Directed STK-MED ONCE IV ; Start 09/25/21 at 05:54; Stop 09/25/21 at 14:57; Status DC Dexamethasone Sodium Phosphate (Decadron) 4 mg STK-MED ONCE .ROUTE ; Start 09/25/21 at 05:54; Stop 09/25/21 at 14:57; Status DC Fentanyl Citrate (Fentanyl 2ml Vial) 100 mcg STK-MED ONCE .ROUTE ; Start 09/25/21 at 05:54; Stop 09/25/21 at 14:57; Status DC Succinylcholine Chloride (Anectine) 200 mg STK-MED ONCE .ROUTE ; Start 09/25/21 at 05:54; Stop 09/25/21 at 14:57; Status DC Remifentanil HCl (Ultiva) 1 mg STK-MED ONCE IV ; Start 09/25/21 at 05:54; Stop 09/25/21 at 14:57; Status DC Glycopyrrolate (Robinul) 1 mg STK-MED ONCE .ROUTE ; Start 09/25/21 at 07:11; Stop 09/25/21 at 15:01; Status DC Propofol 50 ml @ As Directed STK-MED ONCE IV ; Start 09/25/21 at 08:07; Stop 09/25/21 at 15:02; Status DC Ketamine HCl (Ketamine) 50 mg STK-MED ONCE .ROUTE ; Start 09/25/21 at 08:15; Stop 09/25/21 at 15:02; Status DC Hydromorphone HCl (Dilaudid) 2 mg STK-MED ONCE .ROUTE ; Start 09/25/21 at 10:44; Stop 09/25/21 at 15:03; Status DC Fentanyl Citrate (Fentanyl 2ml Vial) 100 mcg STK-MED ONCE .ROUTE ; Start 09/25/21 at 13:26; Stop 09/25/21 at 15:04; Status DC Morphine Sulfate (Morphine Sulfate) 2 mg STK-MED ONCE .ROUTE ; Start 09/25/21 at 14:04; Stop 09/25/21 at 15:05; Status DC Hydromorphone HCl (Dilaudid) 2 mg STK-MED ONCE .ROUTE ; Start 09/25/21 at 14:54; Stop 09/25/21 at 15:06; Status DC Menthol/Methyl Salicylate (Bengay Greaseless Cream) 1 crispin PRN Q30MIN PRN TP MUSCLE PAIN Last administered on 10/02/21at 21:03; Start 09/25/21 at 18:45 Mupirocin (Bactroban) 1 crispin BID NS Last administered on 10/12/21at 21:09; Start 09/26/21 at 09:00; Stop 10/13/21 at 07:56; Status DC Dexamethasone Sodium Phosphate (Decadron) 10 mg 1X ONCE IVP Last administered on 09/26/21at 07:31; Start 09/26/21 at 07:30; Stop 09/26/21 at 07:31; Status DC Cefazolin Sodium 1 gm/Sodium Chloride 1,000 ml @ 1,000 mls/hr 1X ONCE IRR Last administered on 09/26/21at 11:52; Start 09/26/21 at 10:30; Stop 09/26/21 at 11:29; Status DC Cefazolin Sodium (Ancef) 1 gm STK-MED ONCE IVP ; Start 09/26/21 at 10:05; Stop 09/26/21 at 10:06; Status DC Lidocaine HCl (Lidocaine Pf 2% Vial) 5 ml STK-MED ONCE .ROUTE ; Start 09/26/21 at 10:18; Stop 09/26/21 at 10:18; Status DC Ondansetron HCl (Zofran) 4 mg STK-MED ONCE .ROUTE ; Start 09/26/21 at 10:18; Stop 09/26/21 at 10:18; Status DC Propofol (Diprivan) 200 mg STK-MED ONCE IV ; Start 09/26/21 at 10:18; Stop 09/26/21 at 10:19; Status DC Dexamethasone Sodium Phosphate (Decadron) 4 mg STK-MED ONCE .ROUTE ; Start 09/26/21 at 10:18; Stop 09/26/21 at 10:19; Status DC Sevoflurane (Ultane) 30 ml STK-MED ONCE IH ; Start 09/26/21 at 10:18; Stop 09/26/21 at 10:19; Status DC Fentanyl Citrate (Fentanyl 2ml Vial) 100 mcg STK-MED ONCE .ROUTE ; Start 09/26/21 at 10:19; Stop 09/26/21 at 10:19; Status DC Rocuronium [place] (Zemuron) 50 mg STK-MED ONCE .ROUTE ; Start 09/26/21 at 10:19; Stop 09/26/21 at 10:19; Status DC Insulin Human Lispro (HumaLOG VIAL for OP,RR ONLY) 0-10 units PRN Q1HR PRN SQ PER PROTOCOL Last administered on 09/26/21at 15:11; Start 09/26/21 at 10:30; Stop 09/26/21 at 18:00; Status DC Sugammadex Sodium (Bridion) 200 mg 1X ONCE IVP Last administered on 09/26/21at 10:30; Start 09/26/21 at 10:30; Stop 09/26/21 at 10:31; Status DC Gelatin (Gelfoam Size 100) 1 each STK-MED ONCE .ROUTE Last administered on 09/26/21at 11:52; Start 09/26/21 at 10:30; Stop 09/26/21 at 10:30; Status DC Bupivacaine HCl/ Epinephrine Bitart (Sensorcain-Epi 0.5% Kit) 30 ml STK-MED ONCE .ROUTE ; Start 09/26/21 at 10:30; Stop 09/26/21 at 10:30; Status DC Ketorolac Tromethamine (Toradol Im) 60 mg STK-MED ONCE .ROUTE ; Start 09/26/21 at 10:30; Stop 09/26/21 at 10:30; Status DC Thrombin 20,000 unit STK-MED ONCE TP Last administered on 09/26/21at 11:52; Start 09/26/21 at 10:30; Stop 09/26/21 at 10:31; Status DC Cefazolin Sodium/ Dextrose 50 ml @ As Directed STK-MED ONCE IV ; Start 09/26/21 at 10:32; Stop 09/26/21 at 10:32; Status DC Vancomycin HCl 1 gm/Sodium Chloride 250 ml @ 250 mls/hr PREOP PRN PRN IV PRIOR TO PROCEDURE; Start 09/26/21 at 10:45; Stop 09/26/21 at 14:00; Status DC Cefazolin Sodium/ Dextrose 50 ml @ 100 mls/hr 1X ONCE IV Last administered on 09/26/21at 11:00; Start 09/26/21 at 11:00; Stop 09/26/21 at 11:29; Status DC Dexamethasone Sodium Phosphate (Decadron) 4 mg STK-MED ONCE .ROUTE ; Start 09/26/21 at 11:04; Stop 09/26/21 at 11:04; Status DC Glycopyrrolate (Robinul) 1 mg STK-MED ONCE .ROUTE ; Start 09/26/21 at 11:04; Stop 09/26/21 at 11:04; Status DC Hydromorphone HCl (Dilaudid) 2 mg STK-MED ONCE .ROUTE ; Start 09/26/21 at 11:56; Stop 09/26/21 at 11:56; Status DC Fentanyl Citrate (Fentanyl 2ml Vial) 25 mcg PRN Q5MIN PRN IVP MILD PAIN 1-3; Start 09/26/21 at 14:30; Stop 09/26/21 at 18:15; Status DC Fentanyl Citrate (Fentanyl 2ml Vial) 50 mcg PRN Q5MIN PRN IVP MODERATE PAIN 4- 6; Start 09/26/21 at 14:30; Stop 09/26/21 at 18:15; Status DC Morphine Sulfate (Morphine Sulfate) 1 mg PRN Q10MIN PRN IVP SEVERE PAIN 7-10; Start 09/26/21 at 14:30; Stop 09/26/21 at 18:15; Status DC Ringer's Solution 1,000 ml @ 30 mls/hr Q24H IV Last administered on 09/26/21at 15:18; Start 09/26/21 at 14:30; Stop 09/26/21 at 21:00; Status DC Hydromorphone HCl (Dilaudid) 0.5 mg PRN Q10MIN PRN IVP SEVERE PAIN 7-10, 2nd CH OICE; Start 09/26/21 at 14:30; Stop 09/26/21 at 18:15; Status DC Prochlorperazine Edisylate (Compazine) 5 mg PACU PRN PRN IVP NAUSEA, MRX1; Start 09/26/21 at 14:30; Stop 09/26/21 at 21:00; Status DC Fentanyl Citrate (Fentanyl 2ml Vial) 100 mcg STK-MED ONCE .ROUTE ; Start 09/26/21 at 14:23; Stop 09/26/21 at 14:25; Status DC Fentanyl Citrate (Fentanyl 2ml Vial) 25 mcg PRN Q5MIN PRN IVP MILD PAIN 1-3; Start 09/26/21 at 14:30; Stop 09/27/21 at 14:29; Status UNV Fentanyl Citrate (Fentanyl 2ml Vial) 50 mcg PRN Q5MIN PRN IVP MODERATE PAIN 4- 6; Start 09/26/21 at 14:30; Stop 09/27/21 at 14:29; Status UNV Morphine Sulfate (Morphine Sulfate) 1 mg PRN Q10MIN PRN IVP SEVERE PAIN 7-10; Start 09/26/21 at 14:30; Stop 09/27/21 at 14:29; Status UNV Ringer's Solution 1,000 ml @ 30 mls/hr Q24H IV ; Start 09/26/21 at 14:30; Stop 09/27/21 at 02:29; Status UNV Hydromorphone HCl (Dilaudid) 0.5 mg PRN Q10MIN PRN IVP SEVERE PAIN 7-10, 2nd CHOICE; Start 09/26/21 at 14:30; Stop 09/27/21 at 14:29; Status UNV Prochlorperazine Edisylate (Compazine) 5 mg PACU PRN PRN IVP NAUSEA, MRX1; Start 09/26/21 at 14:30; Stop 09/27/21 at 14:29; Status UNV Dexamethasone Sodium Phosphate (Decadron) 4 mg Q6HRS IVP Last administered on 09/28/21at 05:06; Start 09/26/21 at 18:00; Stop 09/28/21 at 06:00; Status DC Sodium Chloride 1,000 ml @ 100 mls/hr Q10H IV Last administered on 10/05/21at 06:41; Start 09/26/21 at 17:30; Stop 10/05/21 at 13:48; Status DC Cefazolin Sodium (Ancef) 1 gm Q8HRS IVP ; Start 09/27/21 at 06:00; Stop 09/27/21 at 05:47; Status DC Vancomycin HCl 1 gm/Sodium Chloride 250 ml @ 166.667 mls/hr 1X ONCE IV Last administered on 09/27/21at 06:27; Start 09/27/21 at 06:00; Stop 09/27/21 at 07:29; Status DC Gadoterate Meglumine (Clariscan) 19 ml 1X ONCE IVP Last administered on 09/29/21at 10:32; Start 09/29/21 at 08:15; Stop 09/29/21 at 08:17; Status DC Bisacodyl (Dulcolax Supp) 10 mg PRN DAILY PRN SD CONSTIPATION; Start 09/29/21 at 14:15 Lactulose (Lactulose) 20 gm PRN DAILY PRN PO CONSTIPATION, 2nd choice Last administered on 10/01/21at 08:35; Start 09/29/21 at 14:30 Ascorbic Acid (Vitamin C) 500 mg DAILY PO Last administered on 10/14/21at 09:06; Start 10/02/21 at 10:00 Levofloxacin/ Dextrose 100 ml @ 100 mls/hr Q24H IV Last administered on 10/02/21at 12:15; Start 10/02/21 at 12:00; Stop 10/03/21 at 08:57; Status DC Levofloxacin/ Dextrose 50 ml @ 50 mls/hr Q24H IV Last administered on 10/06/21at 15:19; Start 10/03/21 at 12:00; Stop 10/06/21 at 23:00; Status DC Lactobacillus Rhamnosus (Culturelle) 1 cap BID PO Last administered on 10/14/21at 09:07; Start 10/03/21 at 21:00 Lidocaine (Lidoderm) 1 patch QHS TP Last administered on 10/13/21at 20:37; Start 10/04/21 at 22:00 Levofloxacin (Levaquin) 250 mg DAILY06 PO Last administered on 10/11/21at 06:13; Start 10/07/21 at 06:00; Stop 10/11/21 at 12:00; Status DC Insulin Human Lispro (HumaLOG) 0-5 UNITS TIDWMEALS SQ Last administered on 10/13/21at 16:43; Start 10/12/21 at 08:00 Dextrose (Dextrose 50%-Water Syringe) 12.5 gm PRN Q15MIN PRN IV SEE COMMENTS; Start 10/11/21 at 19:00 Dextrose (Iv Dextrose 5%) 250 ml PRN Q15MIN PRN IV SEE COMMENTS; Start 10/11/21 at 19:00 Active Scripts Active Dok (Docusate Sodium) 100 Mg Capsule 100 Mg PO PRN BID PRN 30 Days Tylenol (Acetaminophen) 325 Mg Tablet 650 Mg PO PRN Q4HRS PRN 30 Days Valium (Diazepam) 5 Mg Tablet 5 Mg PO TID Atorvastatin Calcium 10 Mg Tablet 10 Mg PO QHS Reported Midodrine Hcl 2.5 Mg Tablet 2.5 Mg PO PRN 1X PRN Aspirin 81 Mg Tab.chew 81 Mg PO DAILY Baclofen 10 Mg Tablet 10 Mg PO BID Lyrica (Pregabalin) 100 Mg Capsule 100 Mg PO BID 30 Days Polyethylene Glycol 3350 2,500 Gm Powder 17 Gm PO DAILY 30 Days Micatin (Miconazole Nitrate) 14 Gm Cream..g. 1 [place] TP TID Tradjenta (Linagliptin) 5 Mg Tablet 5 Mg PO DAILY Lidocaine PATCH (Lidocaine) 1 Each Adh..patch 1 Each TP DAILY REMOVE AFTER 12 HOURS Levemir (Insulin Detemir) 100 Unit/1 Ml Vial 4 Unit SQ HS Hydroxyzine Hcl 25 Mg Tablet 25 Mg PO PRN Q6HRS PRN Fluticasone Propionate Nasal [place] (Fluticasone Propionate) 16 Gm [place].susp 2 [place] NS DAILY Diclofenac Sodium 100 Gm Gel..gram. 100 Gm TP PRN TID PRN Losartan Potassium 100 Mg Tablet 25 Tab PO DAILY08 Vitals/I & O Vital Sign - Last 24 Hours 10/13/21 10/13/21 10/13/21 10/13/21 12:00 16:00 18:48 20:00 Temp 97.7 97.9 98.9 97.7 97.9 98.9 Pulse 74 75 82 Resp 16 16 18 14 B/P (MAP) 140/70 (93) 156/74 (101) 140/67 (91) Pulse Ox 98 97 97 97 O2 Delivery Room Air Room Air Room Air Room Air 10/13/21 10/14/21 10/14/21 10/14/21 20:00 00:00 04:00 07:33 Temp 98.0 98.0 98.0 98.0 Pulse 70 57 Resp 14 12 14 B/P (MAP) 91/49 (63) 97/50 (66) Pulse Ox 98 97 96 O2 Delivery Room Air Room Air Room Air Room Air 10/14/21 09:07 Pulse 64 B/P (MAP) 138/72 Intake and Output 10/13/21 10/13/21 10/14/21 15:00 23:00 07:00 Intake Total 940 ml 560 ml 100 ml Output Total 200 ml 350 ml 100 ml Balance 740 ml 210 ml 0 ml Justifications for Admission Other Justification uncontrolled diabetes TERRY JURADO MD Oct 14, 2021 10:57
[2021-10-14 12:00] VITALS: BP 126/70
--- NOTE | 2021-10-14 12:00 | PDOC ---
PROGRESS NOTES Date of Service DATE: 10/14/21 TIME: 11:59 Subjective Subjective POD #18 S/P Evacuation of epidural hematoma, s/p cervical laminectomy and fusion 09/25/21 pain well controlled Objective Objective Vital Signs Date Time Temp Pulse Resp B/P (MAP) Pulse Ox O2 Delivery O2 Flow Rate FiO2 10/14/21 09:07 64 138/72 10/14/21 08:00 Room Air 10/14/21 07:33 14 96 10/14/21 04:00 98.0 98.0 10/11/21 17:07 2.0 Intake and Output 10/14/21 07:00 Intake Total 1600 ml Output Total 650 ml Balance 950 ml Intake Oral 1600 ml Output Urine Total 650 ml Physical Exam General: Alert, Oriented X3, Cooperative, No acute distress Neuro: Normal speech, Other (sensation intact in upper and lower extremities, moves upper extremities with 3/5 strength, hand grasps slightly stronger- finger extension improved, moving bilateral great toes) Skin: Other (incision healing well) Plan Plan of Care continue current treatment while awaiting placement SCDS Comment Review of Relevant I have reviewed the following items michelle (where applicable) has been applied. Labs Laboratory Tests Test 10/12/21 12:07 10/12/21 16:59 10/12/21 20:46 10/13/21 08:47 Glucose (Fingerstick) 183 mg/dL (70-99) 147 mg/dL (70-99) 150 mg/dL (70-99) 141 mg/dL (70-99) Test 10/13/21 12:03 10/13/21 16:42 10/13/21 20:40 10/14/21 08:09 Glucose (Fingerstick) 149 mg/dL (70-99) 169 mg/dL (70-99) 175 mg/dL (70-99) 121 mg/dL (70-99) Laboratory Tests Test 10/13/21 12:03 10/13/21 16:42 10/13/21 20:40 10/14/21 08:09 Glucose (Fingerstick) 149 mg/dL (70-99) 169 mg/dL (70-99) 175 mg/dL (70-99) 121 mg/dL (70-99) Microbiology 10/01/21 Urine Culture - Final, Complete Escherichia Coli Escherichia Coli#2 Medications Current Medications Fentanyl Citrate (Fentanyl 2ml Vial) 25 mcg PRN Q5MIN PRN IVP MILD PAIN 1-3; Start 09/25/21 at 06:00; Stop 09/25/21 at 20:00; Status DC Fentanyl Citrate (Fentanyl 2ml Vial) 50 mcg PRN Q5MIN PRN IVP MODERATE PAIN 4-6 Last administered on 09/25/21at 13:48; Start 09/25/21 at 06:00; Stop 09/25/21 at 20:00; Status DC Morphine Sulfate (Morphine Sulfate) 1 mg PRN Q10MIN PRN IVP SEVERE PAIN 7-10 Last administered on 09/25/21at 14:21; Start 09/25/21 at 06:00; Stop 09/25/21 at 20:00; Status DC Ringer's Solution 1,000 ml @ 30 mls/hr Q24H IV Last administered on 09/25/21at 12:54; Start 09/25/21 at 06:00; Stop 09/25/21 at 17:59; Status DC Hydromorphone HCl (Dilaudid) 0.5 mg PRN Q10MIN PRN IVP SEVERE PAIN 7-10, 2nd CHOICE Last administered on 09/25/21at 16:53; Start 09/25/21 at 06:00; Stop 09/25/21 at 20:00; Status DC Prochlorperazine Edisylate (Compazine) 5 mg PACU PRN PRN IVP NAUSEA, MRX1; Start 09/25/21 at 06:00; Stop 09/25/21 at 20:00; Status DC Cefazolin Sodium 1 gm/Sodium Chloride 1,000 ml @ 1,000 mls/hr 1X ONCE IRR Last administered on 09/25/21at 10:14; Start 09/25/21 at 06:00; Stop 09/25/21 at 06:59; Status DC Cefazolin Sodium/ Dextrose 50 ml @ 100 mls/hr 1X PREOP PRN IV PRIOR TO PROCEDURE Last administered on 09/25/21at 09:30; Start 09/25/21 at 06:00; Stop 09/25/21 at 13:39; Status DC Insulin Human Lispro (HumaLOG VIAL for OP,RR ONLY) 0-10 units PRN Q1HR PRN SQ PER PROTOCOL Last administered on 09/25/21at 17:01; Start 09/25/21 at 07:00; Stop 09/25/21 at 18:00; Status DC Bupivacaine HCl/ Epinephrine Bitart (Sensorcain-Epi 0.5% Kit) 30 ml STK-MED ONCE INJ Last administered on 09/25/21 10:14; Start 09/25/21 at 10:14; Stop 09/25/21 at 10:30; Status DC Ketorolac Tromethamine (Toradol Im) 60 mg STK-MED ONCE INJ Last administered on 09/25/21 10:14; Start 09/25/21 at 10:14; Stop 09/25/21 at 10:30; Status DC Thrombin 20,000 unit STK-MED ONCE TP Last administered on 09/25/21 10:14; Start 09/25/21 at 10:14; Stop 09/25/21 at 10:30; Status DC Gelatin (Gelfoam Size 100) 1 each STK-MED ONCE TP Last administered on 09/25/21 10:14; Start 09/25/21 at 10:14; Stop 09/25/21 at 10:30; Status DC Acetaminophen (Tylenol) 650 mg PRN Q4HRS PRN PO TEMP OVER 100.4F OR MILD PAIN Last administered on 10/14/21 00:25; Start 09/25/21 at 12:30 Aspirin (Aspirin Chewable) 81 mg DAILY PO Last administered on 09/26/21 08:30; Start 09/26/21 at 09:00; Stop 09/28/21 at 17:19; Status DC Atorvastatin Calcium (Lipitor) 10 mg QHS PO Last administered on 10/13/21at 20:36; Start 09/25/21 at 21:00 Baclofen (Lioresal) 10 mg BID PO Last administered on 10/14/21 09:06; Start 09/25/21 at 21:00 Diazepam (Valium) 5 mg TID PO Last administered on 10/14/21 09:08; Start 09/25/21 at 14:00 Docusate Sodium (Colace) 100 mg PRN BID PRN PO HARD STOOLS Last administered on 10/01/21 20:28; Start 09/25/21 at 12:30 Fluticasone Propionate (Flonase) 2 spray DAILY NS Last administered on 10/13/21 08:55; Start 09/26/21 at 09:00 Hydroxyzine HCl (Atarax) 25 mg PRN Q6HRS PRN PO Itching (2ND Choice) Last administered on 10/13/21 20:52; Start 09/25/21 at 12:30 Lidocaine (Lidoderm) 1 patch QHS TP Last administered on 10/03/21 23:31; Start 09/25/21 at 20:00; Stop 10/05/21 at 01:01; Status DC Linagliptin (Tradjenta) 5 mg DAILY PO Last administered on 10/14/21 09:06; Start 09/25/21 at 13:00 Miconazole Nitrate (Monistat-Derm) 1 crispin TID TP Last administered on 10/04/21at 20:08; Start 09/25/21 at 21:00; Stop 10/05/21 at 13:23; Status DC Midodrine (Proamatine) 2.5 mg PRN 1X PRN PO hypotension Last administered on 09/27/21 08:56; Start 09/25/21 at 12:30 Oxycodone HCl (Roxicodone) 10 mg PRN Q6HRS PRN PO MODERATE-SEVERE PAIN Last administered on 10/14/21at 07:03; Start 09/25/21 at 12:30 Diclofenac Sodium (Voltaren) 1 crispin PRN TID PRN TP PAIN CONTROL; Start 09/25/21 at 13:15; Stop 09/25/21 at 18:37; Status DC Insulin Glargine (Lantus Syringe) 4 unit QHS SQ Last administered on 10/13/21at 20:50; Start 09/25/21 at 21:00 Losartan Potassium (Cozaar) 25 mg DAILY08 PO Last administered on 10/14/21 09:07; Start 09/26/21 at 08:00 Polyethylene Glycol (miraLAX PACKET) 17 gm DAILY PO Last administered on 10/13/21 08:53; Start 09/25/21 at 14:00 Pregabalin (Lyrica) 100 mg BID PO Last administered on 10/14/21 09:08; Start 09/25/21 at 21:00 Acetaminophen (Tylenol) 650 mg PRN Q6HRS PRN PO MILD PAIN / TEMP > 100.3'F; Start 09/25/21 at 12:30; Status Cancel Al Hydroxide/Mg Hydroxide (Mylanta Plus Xs) 30 ml PRN Q3HRS PRN PO HEARTBURN / GAS; Start 09/25/21 at 12:30 Calcium Carbonate/ Glycine (Tums) 500 mg PRN Q3HRS PRN PO INDIGESTION; Start 09/25/21 at 12:30 Diphenhydramine HCl (Benadryl) 25 mg PRN Q6HRS PRN PO ITCHING (1ST CHOICE); Start 09/25/21 at 12:30 Naloxone HCl (Narcan) 0.1 mg PRN Q2MIN PRN IV SEE COMMENTS; Start 09/25/21 at 12:30 Sodium Chloride (Normal Saline Flush) 3 ml QSHIFT PRN IV AFTER MEDS AND BLOOD DRAWS; Start 09/25/21 at 12:30 Potassium Chloride/Sodium Chloride 1,000 ml @ 75 mls/hr [id number] IV Last administered on 09/26/21at 07:00; Start 09/25/21 at 12:30; Stop 09/26/21 at 17:33; Status DC Magnesium Hydroxide (Milk Of Magnesia) 2,400 mg PRN Q12HR PRN PO CONSTIPATION; Start 09/25/21 at 12:30 Cefazolin Sodium (Ancef) 1 gm Q8H IVP Last administered on 09/26/21at 04:14; Start 09/25/21 at 18:00; Stop 09/26/21 at 10:01; Status DC Fentanyl Citrate (Fentanyl 2ml Vial) 50 mcg PRN Q2HR PRN IVP MODERATE TO SEVERE PAIN Last administered on 10/05/21at 22:46; Start 09/25/21 at 12:30 Dextrose (Dextrose 50%-Water Syringe) 12.5 gm PRN Q15MIN PRN IV SEE COMMENTS; Start 09/25/21 at 12:30; Status Cancel Dextrose (Iv Dextrose 5%) 250 ml PRN Q15MIN PRN IV SEE COMMENTS; Start 09/25/21 at 12:30; Status Cancel Gelatin (Gelfoam Size 100) 1 each STK-MED ONCE .ROUTE ; Start 09/25/21 at 06:37; Stop 09/25/21 at 14:55; Status DC Bupivacaine HCl/ Epinephrine Bitart (Sensorcain-Epi 0.5% Kit) 30 ml STK-MED ONCE .ROUTE ; Start 09/25/21 at 06:37; Stop 09/25/21 at 14:55; Status DC Ketorolac Tromethamine (Toradol Im) 60 mg STK-MED ONCE .ROUTE ; Start 09/25/21 at 06:37; Stop 09/25/21 at 14:55; Status DC Thrombin 20,000 unit STK-MED ONCE TP ; Start 09/25/21 at 06:38; Stop 09/25/21 at 14:55; Status DC Propofol (Diprivan) 200 mg STK-MED ONCE IV ; Start 09/25/21 at 05:54; Stop 09/25/21 at 14:57; Status DC Lidocaine HCl (Lidocaine Pf 2% Vial) 5 ml STK-MED ONCE .ROUTE ; Start 09/25/21 at 05:54; Stop 09/25/21 at 14:57; Status DC Ondansetron HCl (Zofran) 4 mg STK-MED ONCE .ROUTE ; Start 09/25/21 at 05:54; Stop 09/25/21 at 14:57; Status DC Phenylephrine HCl (Ramone-Synephrine Inj) 10 mg STK-MED ONCE .ROUTE ; Start 09/25/21 at 05:54; Stop 09/25/21 at 14:57; Status DC Propofol 50 ml @ As Directed STK-MED ONCE IV ; Start 09/25/21 at 05:54; Stop 09/25/21 at 14:57; Status DC Dexamethasone Sodium Phosphate (Decadron) 4 mg STK-MED ONCE .ROUTE ; Start 09/25/21 at 05:54; Stop 09/25/21 at 14:57; Status DC Fentanyl Citrate (Fentanyl 2ml Vial) 100 mcg STK-MED ONCE .ROUTE ; Start 09/25/21 at 05:54; Stop 09/25/21 at 14:57; Status DC Succinylcholine Chloride (Anectine) 200 mg STK-MED ONCE .ROUTE ; Start 09/25/21 at 05:54; Stop 09/25/21 at 14:57; Status DC Remifentanil HCl (Ultiva) 1 mg STK-MED ONCE IV ; Start 09/25/21 at 05:54; Stop 09/25/21 at 14:57; Status DC Glycopyrrolate (Robinul) 1 mg STK-MED ONCE .ROUTE ; Start 09/25/21 at 07:11; Stop 09/25/21 at 15:01; Status DC Propofol 50 ml @ As Directed STK-MED ONCE IV ; Start 09/25/21 at 08:07; Stop 09/25/21 at 15:02; Status DC Ketamine HCl (Ketamine) 50 mg STK-MED ONCE .ROUTE ; Start 09/25/21 at 08:15; Stop 09/25/21 at 15:02; Status DC Hydromorphone HCl (Dilaudid) 2 mg STK-MED ONCE .ROUTE ; Start 09/25/21 at 10:44; Stop 09/25/21 at 15:03; Status DC Fentanyl Citrate (Fentanyl 2ml Vial) 100 mcg STK-MED ONCE .ROUTE ; Start 09/25/21 at 13:26; Stop 09/25/21 at 15:04; Status DC Morphine Sulfate (Morphine Sulfate) 2 mg STK-MED ONCE .ROUTE ; Start 09/25/21 at 14:04; Stop 09/25/21 at 15:05; Status DC Hydromorphone HCl (Dilaudid) 2 mg STK-MED ONCE .ROUTE ; Start 09/25/21 at 14:54; Stop 09/25/21 at 15:06; Status DC Menthol/Methyl Salicylate (Bengay Greaseless Cream) 1 crispin PRN Q30MIN PRN TP MUSCLE PAIN Last administered on 10/02/21at 21:03; Start 09/25/21 at 18:45 Mupirocin (Bactroban) 1 crispin BID NS Last administered on 10/12/21at 21:09; Start 09/26/21 at 09:00; Stop 10/13/21 at 07:56; Status DC Dexamethasone Sodium Phosphate (Decadron) 10 mg 1X ONCE IVP Last administered on 09/26/21at 07:31; Start 09/26/21 at 07:30; Stop 09/26/21 at 07:31; Status DC Cefazolin Sodium 1 gm/Sodium Chloride 1,000 ml @ 1,000 mls/hr 1X ONCE IRR Last administered on 09/26/21at 11:52; Start 09/26/21 at 10:30; Stop 09/26/21 at 11:29; Status DC Cefazolin Sodium (Ancef) 1 gm STK-MED ONCE IVP ; Start 09/26/21 at 10:05; Stop 09/26/21 at 10:06; Status DC Lidocaine HCl (Lidocaine Pf 2% Vial) 5 ml STK-MED ONCE .ROUTE ; Start 09/26/21 at 10:18; Stop 09/26/21 at 10:18; Status DC Ondansetron HCl (Zofran) 4 mg STK-MED ONCE .ROUTE ; Start 09/26/21 at 10:18; Stop 09/26/21 at 10:18; Status DC Propofol (Diprivan) 200 mg STK-MED ONCE IV ; Start 09/26/21 at 10:18; Stop 09/26/21 at 10:19; Status DC Dexamethasone Sodium Phosphate (Decadron) 4 mg STK-MED ONCE .ROUTE ; Start 09/26/21 at 10:18; Stop 09/26/21 at 10:19; Status DC Sevoflurane (Ultane) 30 ml STK-MED ONCE IH ; Start 09/26/21 at 10:18; Stop 09/26/21 at 10:19; Status DC Fentanyl Citrate (Fentanyl 2ml Vial) 100 mcg STK-MED ONCE .ROUTE ; Start 09/26/21 at 10:19; Stop 09/26/21 at 10:19; Status DC Rocuronium [place] (Zemuron) 50 mg STK-MED ONCE .ROUTE ; Start 09/26/21 at 10:19; Stop 09/26/21 at 10:19; Status DC Insulin Human Lispro (HumaLOG VIAL for OP,RR ONLY) 0-10 units PRN Q1HR PRN SQ PER PROTOCOL Last administered on 09/26/21at 15:11; Start 09/26/21 at 10:30; Stop 09/26/21 at 18:00; Status DC Sugammadex Sodium (Bridion) 200 mg 1X ONCE IVP Last administered on 09/26/21at 10:30; Start 09/26/21 at 10:30; Stop 09/26/21 at 10:31; Status DC Gelatin (Gelfoam Size 100) 1 each STK-MED ONCE .ROUTE Last administered on 09/26/21at 11:52; Start 09/26/21 at 10:30; Stop 09/26/21 at 10:30; Status DC Bupivacaine HCl/ Epinephrine Bitart (Sensorcain-Epi 0.5% Kit) 30 ml STK-MED ONCE .ROUTE ; Start 09/26/21 at 10:30; Stop 09/26/21 at 10:30; Status DC Ketorolac Tromethamine (Toradol Im) 60 mg STK-MED ONCE .ROUTE ; Start 09/26/21 at 10:30; Stop 09/26/21 at 10:30; Status DC Thrombin 20,000 unit STK-MED ONCE TP Last administered on 09/26/21at 11:52; Start 09/26/21 at 10:30; Stop 09/26/21 at 10:31; Status DC Cefazolin Sodium/ Dextrose 50 ml @ As Directed STK-MED ONCE IV ; Start 09/26/21 at 10:32; Stop 09/26/21 at 10:32; Status DC Vancomycin HCl 1 gm/Sodium Chloride 250 ml @ 250 mls/hr PREOP PRN PRN IV PRIOR TO PROCEDURE; Start 09/26/21 at 10:45; Stop 09/26/21 at 14:00; Status DC Cefazolin Sodium/ Dextrose 50 ml @ 100 mls/hr 1X ONCE IV Last administered on 09/26/21at 11:00; Start 09/26/21 at 11:00; Stop 09/26/21 at 11:29; Status DC Dexamethasone Sodium Phosphate (Decadron) 4 mg STK-MED ONCE .ROUTE ; Start 09/26/21 at 11:04; Stop 09/26/21 at 11:04; Status DC Glycopyrrolate (Robinul) 1 mg STK-MED ONCE .ROUTE ; Start 09/26/21 at 11:04; Stop 09/26/21 at 11:04; Status DC Hydromorphone HCl (Dilaudid) 2 mg STK-MED ONCE .ROUTE ; Start 09/26/21 at 11:56; Stop 09/26/21 at 11:56; Status DC Fentanyl Citrate (Fentanyl 2ml Vial) 25 mcg PRN Q5MIN PRN IVP MILD PAIN 1-3; Start 09/26/21 at 14:30; Stop 09/26/21 at 18:15; Status DC Fentanyl Citrate (Fentanyl 2ml Vial) 50 mcg PRN Q5MIN PRN IVP MODERATE PAIN 4- 6; Start 09/26/21 at 14:30; Stop 09/26/21 at 18:15; Status DC Morphine Sulfate (Morphine Sulfate) 1 mg PRN Q10MIN PRN IVP SEVERE PAIN 7-10; Start 09/26/21 at 14:30; Stop 09/26/21 at 18:15; Status DC Ringer's Solution 1,000 ml @ 30 mls/hr Q24H IV Last administered on 09/26/21at 15:18; Start 09/26/21 at 14:30; Stop 09/26/21 at 21:00; Status DC Hydromorphone HCl (Dilaudid) 0.5 mg PRN Q10MIN PRN IVP SEVERE PAIN 7-10, 2nd CHOICE; Start 09/26/21 at 14:30; Stop 09/26/21 at 18:15; Status DC Prochlorperazine Edisylate (Compazine) 5 mg PACU PRN PRN IVP NAUSEA, MRX1; Start 09/26/21 at 14:30; Stop 09/26/21 at 21:00; Status DC Fentanyl Citrate (Fentanyl 2ml Vial) 100 mcg STK-MED ONCE .ROUTE ; Start 09/26/21 at 14:23; Stop 09/26/21 at 14:25; Status DC Fentanyl Citrate (Fentanyl 2ml Vial) 25 mcg PRN Q5MIN PRN IVP MILD PAIN 1-3; Start 09/26/21 at 14:30; Stop 09/27/21 at 14:29; Status UNV Fentanyl Citrate (Fentanyl 2ml Vial) 50 mcg PRN Q5MIN PRN IVP MODERATE PAIN 4- 6; Start 09/26/21 at 14:30; Stop 09/27/21 at 14:29; Status UNV Morphine Sulfate (Morphine Sulfate) 1 mg PRN Q10MIN PRN IVP SEVERE PAIN 7-10; Start 09/26/21 at 14:30; Stop 09/27/21 at 14:29; Status UNV Ringer's Solution 1,000 ml @ 30 mls/hr Q24H IV ; Start 09/26/21 at 14:30; Stop 09/27/21 at 02:29; Status UNV Hydromorphone HCl (Dilaudid) 0.5 mg PRN Q10MIN PRN IVP SEVERE PAIN 7-10, 2nd CHOICE; Start 09/26/21 at 14:30; Stop 09/27/21 at 14:29; Status UNV Prochlorperazine Edisylate (Compazine) 5 mg PACU PRN PRN IVP NAUSEA, MRX1; Start 09/26/21 at 14:30; Stop 09/27/21 at 14:29; Status UNV Dexamethasone Sodium Phosphate (Decadron) 4 mg Q6HRS IVP Last administered on 09/28/21at 05:06; Start 09/26/21 at 18:00; Stop 09/28/21 at 06:00; Status DC Sodium Chloride 1,000 ml @ 100 mls/hr Q10H IV Last administered on 10/05/21at 06:41; Start 09/26/21 at 17:30; Stop 10/05/21 at 13:48; Status DC Cefazolin Sodium (Ancef) 1 gm Q8HRS IVP ; Start 09/27/21 at 06:00; Stop 09/27/21 at 05:47; Status DC Vancomycin HCl 1 gm/Sodium Chloride 250 ml @ 166.667 mls/hr 1X ONCE IV Last administered on 09/27/21at 06:27; Start 09/27/21 at 06:00; Stop 09/27/21 at 07:29; Status DC Gadoterate Meglumine (Clariscan) 19 ml 1X ONCE IVP Last administered on 09/29/21at 10:32; Start 09/29/21 at 08:15; Stop 09/29/21 at 08:17; Status DC Bisacodyl (Dulcolax Supp) 10 mg PRN DAILY PRN [place] CONSTIPATION; Start 09/29/21 at 14:15 Lactulose (Lactulose) 20 gm PRN DAILY PRN PO CONSTIPATION, 2nd choice Last administered on 10/01/21at 08:35; Start 09/29/21 at 14:30 Ascorbic Acid (Vitamin C) 500 mg DAILY PO Last administered on 10/14/21at 09:06; Start 10/02/21 at 10:00 Levofloxacin/ Dextrose 100 ml @ 100 mls/hr Q24H IV Last administered on 10/02/21at 12:15; Start 10/02/21 at 12:00; Stop 10/03/21 at 08:57; Status DC Levofloxacin/ Dextrose 50 ml @ 50 mls/hr Q24H IV Last administered on 10/06/21at 15:19; Start 10/03/21 at 12:00; Stop 10/06/21 at 23:00; Status DC Lactobacillus Rhamnosus (Culturelle) 1 cap BID PO Last administered on 10/14/21at 09:07; Start 10/03/21 at 21:00 Lidocaine (Lidoderm) 1 patch QHS TP Last administered on 10/13/21at 20:37; Start 10/04/21 at 22:00 Levofloxacin (Levaquin) 250 mg DAILY06 PO Last administered on 10/11/21at 06:13; Start 10/07/21 at 06:00; Stop 10/11/21 at 12:00; Status DC Insulin Human Lispro (HumaLOG) 0-5 UNITS TIDWMEALS SQ Last administered on 10/13/21at 16:43; Start 10/12/21 at 08:00 Dextrose (Dextrose 50%-Water Syringe) 12.5 gm PRN Q15MIN PRN IV SEE COMMENTS; Start 10/11/21 at 19:00 Dextrose (Iv Dextrose 5%) 250 ml PRN Q15MIN PRN IV SEE COMMENTS; Start 10/11/21 at 19:00 Active Scripts Active Dok (Docusate Sodium) 100 Mg Capsule 100 Mg PO PRN BID PRN 30 Days Tylenol (Acetaminophen) 325 Mg Tablet 650 Mg PO PRN Q4HRS PRN 30 Days Valium (Diazepam) 5 Mg Tablet 5 Mg PO TID Atorvastatin Calcium 10 Mg Tablet 10 Mg PO QHS Reported Midodrine Hcl 2.5 Mg Tablet 2.5 Mg PO PRN 1X PRN Aspirin 81 Mg Tab.chew 81 Mg PO DAILY Baclofen 10 Mg Tablet 10 Mg PO BID Lyrica (Pregabalin) 100 Mg Capsule 100 Mg PO BID 30 Days Polyethylene Glycol 3350 2,500 Gm Powder 17 Gm PO DAILY 30 Days Micatin (Miconazole Nitrate) 14 Gm Cream..g. 1 Crispin TP TID Tradjenta (Linagliptin) 5 Mg Tablet 5 Mg PO DAILY Lidocaine PATCH (Lidocaine) 1 Each Adh..patch 1 Each TP DAILY REMOVE AFTER 12 HOURS Levemir (Insulin Detemir) 100 Unit/1 Ml Vial 4 Unit SQ HS Hydroxyzine Hcl 25 Mg Tablet 25 Mg PO PRN Q6HRS PRN Fluticasone Propionate Nasal Mikado (Fluticasone Propionate) 16 Gm Mikado.susp 2 Mikado NS DAILY Diclofenac Sodium 100 Gm Gel..gram. 100 Gm TP PRN TID PRN Losartan Potassium 100 Mg Tablet 25 Tab PO DAILY08 Vitals/I & O Vital Sign - Last 24 Hours 10/13/21 10/13/21 10/13/21 10/13/21 16:00 18:48 20:00 20:00 Temp 97.9 98.9 97.9 98.9 Pulse 75 82 Resp 16 18 14 B/P (MAP) 156/74 (101) 140/67 (91) Pulse Ox 97 97 97 O2 Delivery Room Air Room Air Room Air Room Air 10/14/21 10/14/21 10/14/21 10/14/21 00:00 04:00 07:33 08:00 Temp 98.0 98.0 98.0 98.0 Pulse 70 57 Resp 14 12 14 B/P (MAP) 91/49 (63) 97/50 (66) Pulse Ox 98 97 96 O2 Delivery Room Air Room Air Room Air Room Air 10/14/21 09:07 Pulse 64 B/P (MAP) 138/72 Intake and Output 10/13/21 10/13/21 10/14/21 15:00 23:00 07:00 Intake Total 940 ml 560 ml 100 ml Output Total 200 ml 350 ml 100 ml Balance 740 ml 210 ml 0 ml Justifications for Admission Other Justification uncontrolled diabetes TODD RIVERA APRN Oct 14, 2021 12:00
[2021-10-14 16:00] VITALS: BP 146/78
[2021-10-14 20:00] VITALS: BP 134/68
[2021-10-14] MEDS: INSULIN GLARGINE SYRINGE. SQ SCH (21:00)
[2021-10-14] MEDS: LIDOCAINE (700MG/PATCH) PATCH. TP SCH (21:01)
[2021-10-14] MEDS: diphenhydrAMINE HCL 25 MG CAPSULE PO PRN (21:01)
[2021-10-14] MEDS: ATORVASTATIN CALCIUM 10 MG TABLET. PO SCH (21:01)
[2021-10-14] MEDS: hydrOXYzine 25 MG TABLET PO PRN (22:59)
[2021-10-15] MEDS: ACETAMINOPHEN 325 MG TABLET. PO PRN (02:07)
[2021-10-15] MEDS: oxyCODONE IR 5 MG TABLET PO PRN ×2 (04:47→10:32)
[2021-10-15 05:00] VITALS: BP 121/58
[2021-10-15 05:39] LABS: ALBUMIN 2.4 g/dL (3.4-5.0); ALBUMIN/GLOBULIN RATIO 0.6 (1.0-1.7); CALCIUM 8.6 mg/dL (8.5-10.1); CREATININE 0.9 mg/dL (0.7-1.3); GFR 103.8; MAGNESIUM 1.7 mg/dL (1.8-2.4); PHOSPHORUS 5.2 mg/dL (2.6-4.7); POTASSIUM 3.6 mmol/L (3.5-5.1); TOTAL BILIRUBIN 0.3 mg/dL (0.2-1.0); TOTAL PROTEIN 6.6 g/dL (6.4-8.2)
[2021-10-15 08:00] VITALS: BP 119/64
--- NOTE | 2021-10-15 09:40 | PDOC ---
[employer] PROGRESS NOTE Date of Service DOS: DATE: 10/15/21 TIME: 09:36 Chief Complaint Chief Complaint Cervical spinal cord injury - Concern for C5 cord edema, cord compression, a right lateral C5 fracture, and concern for numerous ligamentous injuries. 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 S/p decompression 07/26/2021 and repeat surgeries 09/25 and 09/26 Diabetes - sliding scale plus basal HTN - prn hydralazine HLD - statin when taking PO Cervical laminectomy as per above, diabetes, hypertension, hyperlipidemia, arthritis, GERD, left knee arthroplasty and TIA S/p; IVC filter FEN - ADAT PPX - SCDs FULL CODE Dispo - Inpatient History of Present Illness History of Present Illness 10/15: Seen bedside in ICU getting bed bath. Says his spasming is improved today having a little bit of shortness of breath but no cough. No chest pain. 10/14: Seen bedside in ICU. Still with spasming upon awakening in his hands and feet still with some weakness in his left foot. Poor appetite. 10/13: Patient seen and examined. Discussed with neurosurgery nurse practitioner Roberta 10/12: Patient seen and examined 10/11: Patient seen and examined. His discharge was held again as he was not accepted at [facility] 10/09: His sister is here as well discussed with her. Plan is to get the patient to [facility] assisted if they accept him 10/08: Patient seen and examined. He is moving his toes more each day 10/07/2021 Patient seen and examined in the ICU (he is actually in overfull patient) He is working with his nurse to try to use his nurse button and remote control Started to move his toes a little bit Doing much better 10/06/2021 Patient seen and examined in the ICU I discussed the case with his sister again I also discussed the case with case management [facility] rehab may consider taking him after all now that he is improved over the past 3 days 10/05/2021 Patient seen and examined in the ICU His nurses are starting to get ready to clean him up His sister is present Discussed with RN Discussed with case management we are still awaiting rehab [facility] if it can be arranged 10/04/2021 Patient seen and examined again in the ICU He remains very weak cannot move his legs was able to move his hands His sister is present I called case management they are checking into possibly if he could go to rehab [facility] Chart reviewed 10/03/2021 Patient seen and examined in the ICU Chart reviewed Discussed with RN Called case management We are hoping to get the patient transferred to [facility] rehab if possible (they are evaluating his admission criteria to rehab) 10/02/2021 Patient seen and examined in the ICU He is still unable to move his legs He is able to move his hands and arms slightly but is very weak at bedside Chart reviewed Discussed with RN I called case management to see if maybe he could go to [facility] rehab sometime soon 10/01 Patient evaluated examined at bedside. Continues to improve. Continue rehab. Plan discussed with bedside RN. 09/30 Patient evaluated examined at bedside. Clinically about the same from yesterday. Continue rehab modalities. Labs stable. Plan discussed with bedside RN. 09/29 Patient evaluated at bedside. Underwent MRI this morning. Symptoms very similar to yesterday but he feels like he is regaining some function. Pain controlled. PT OT. Hemoglovin stable. 09/28 Evaluate examined at bedside. Resting in bed had no complaints to me. Said pain is quite improved. Did okay with transfusion yesterday. Continue current treatments. PT/OT. Discussed with bedside RN. Roxi 09/27 Patient evaluated examined at bedside. Was resting in bed easily awoken able to answer some questions. Some movement in his upper extremities but very limited in lower. Transfuse 1 unit today. Plan discussed with RN. Mr Terrell is a 60-year-old male w/ PMHx prediabetes, HLD, HTN and recent fall in July 2021 with cervical myelopathy and s/p cervical decompression with ACDF C5-6 07/26/2021 On 09/25/21 underwent cervical laminectomy, C3, C4, C5, C6, partial C7 with lateral mass fusion C3 through C7, Posterior nstrumentation C3-C7 on the left and posterior instrumentation C-C6 on the right. On 09/26/21 returned to OR for cervical hematoma evacuation. Vitals/I&O Vitals/I&O: Vital Signs Date Time Temp Pulse Resp B/P (MAP) Pulse Ox O2 Delivery O2 Flow Rate FiO2 10/15/21 05:17 16 96 Room Air 10/15/21 05:00 97.7 62 121/58 (79) 97.7 10/14/21 17:55 2.0 I & O 10/14/21 10/14/21 10/15/21 15:00 23:00 07:00 Intake Total 360 ml 240 ml 240 ml Output Total 600 ml 500 ml 920 ml Balance -240 ml -260 ml -680 ml Physical Exam General: Alert, Oriented X3, Cooperative Heart: Regular rate Lungs: Clear Abdomen: Normal bowel sounds, Soft, No tenderness Extremities: No edema, Normal pulses Skin: Other (dressing clean, dry and intact) Labs Labs: Laboratory Tests Test 10/14/21 12:09 10/14/21 17:29 10/15/21 04:00 Glucose (Fingerstick) 153 mg/dL (70-99) 127 mg/dL (70-99) Sodium Level 142 mmol/L (136-145) Potassium Level 3.6 mmol/L (3.5-5.1) Chloride Level 106 mmol/L (98-107) Carbon Dioxide Level 30 mmol/L (21-32) Anion Gap 6 (6-14) Blood Urea Nitrogen 13 mg/dL (8-26) Creatinine 0.9 mg/dL (0.7-1.3) Estimated GFR (Cockcroft-Gault) 103.8 BUN/Creatinine Ratio 14 (6-20) Glucose Level 116 mg/dL (70-99) Calcium Level 8.6 mg/dL (8.5-10.1) Phosphorus Level 5.2 mg/dL (2.6-4.7) Magnesium Level 1.7 mg/dL (1.8-2.4) Total Bilirubin 0.3 mg/dL (0.2-1.0) Aspartate Amino Transf (AST/SGOT) 12 U/L (15-37) Alanine Aminotransferase (ALT/SGPT) 12 U/L (16-63) Alkaline Phosphatase 70 U/L (46-116) Creatine Kinase 43 U/L (39-308) Total Protein 6.6 g/dL (6.4-8.2) Albumin 2.4 g/dL (3.4-5.0) Albumin/Globulin Ratio 0.6 (1.0-1.7) Thyroid Stimulating Hormone (TSH) 2.166 uIU/mL (0.358-3.74) Comment Review of Relevant I have reviewed the following items michelle (where applicable) has been applied. Justifications for Admission Other Justification uncontrolled diabetes STACY HOUSTON MD Oct 15, 2021 09:40
[2021-10-15] MEDS: LINAGLIPTIN 5 MG TABLET PO SCH (10:21)
[2021-10-15] MEDS: diazePAM 5 MG TABLET PO SCH ×2 (10:21→21:10)
[2021-10-15] MEDS: ASCORBIC ACID 500 MG TABLET PO SCH (10:22)
[2021-10-15] MEDS: PREGABALIN 50 MG CAPSULE PO SCH ×2 (10:22→21:09)
[2021-10-15] MEDS: BACLOFEN 10 MG TABLET. PO SCH ×2 (10:22→21:09)
[2021-10-15] MEDS: DOCUSATE SODIUM 100 MG CAPSULE. PO PRN (10:22)
[2021-10-15] MEDS: LACTOBACILLUS RHAMNOSUS GG 1 CAPSULE. PO SCH ×2 (10:22→21:09)
[2021-10-15] MEDS ORDERED: MAGNESIUM SULFATE 2GM 50 ML IV ONE (10:30)
[2021-10-15] MEDS ORDERED: POTASSIUM CHLORIDE 20 MEQ TABLET.ER. PO ONE (10:30)
[2021-10-15] MEDS: LOSARTAN POTASSIUM 25 MG TABLET. PO SCH (10:33)
[2021-10-15 12:00] VITALS: BP 153/80
[2021-10-15 16:00] VITALS: BP 148/76
[2021-10-15 20:00] VITALS: BP 124/63
[2021-10-15] MEDS: LIDOCAINE (700MG/PATCH) PATCH. TP SCH (21:09)
[2021-10-15] MEDS: ATORVASTATIN CALCIUM 10 MG TABLET. PO SCH (21:09)
[2021-10-15] MEDS: INSULIN GLARGINE SYRINGE. SQ SCH (21:11)
[2021-10-15] MEDS: hydrOXYzine 25 MG TABLET PO PRN (21:16)
[2021-10-16] VITALS (7 sets, daily range): BP systolic 107–148; BP diastolic 63–78
[2021-10-16] MEDS: ACETAMINOPHEN 325 MG TABLET. PO PRN (04:15)
[2021-10-16] MEDS: INSULIN LISPRO 300 UNITS/3 ML VIAL. SQ SCH ×3 (08:00→18:29)
[2021-10-16] MEDS: POLYETHYLENE GLYCOL 3350 17 GM PACKET. PO SCH (08:15)
[2021-10-16] MEDS: PREGABALIN 50 MG CAPSULE PO SCH ×2 (08:25→21:16)
[2021-10-16] MEDS: LACTOBACILLUS RHAMNOSUS GG 1 CAPSULE. PO SCH ×2 (08:25→21:16)
[2021-10-16] MEDS: diazePAM 5 MG TABLET PO SCH ×4 (08:26→23:33)
[2021-10-16] MEDS: LINAGLIPTIN 5 MG TABLET PO SCH (08:26)
[2021-10-16] MEDS: LOSARTAN POTASSIUM 25 MG TABLET. PO SCH (08:26)
[2021-10-16] MEDS: ASCORBIC ACID 500 MG TABLET PO SCH (08:26)
[2021-10-16] MEDS: BACLOFEN 10 MG TABLET. PO SCH ×2 (08:26→21:17)
[2021-10-16] MEDS: FLUTICASONE 50MCG/NASAL SPRAY 16GM BOTTLE. NS SCH (08:27)
--- NOTE | 2021-10-16 09:53 | PDOC ---
[employer] PROGRESS NOTE Date of Service DOS: DATE: 10/16/21 TIME: 09:34 Chief Complaint Chief Complaint Cervical spinal cord injury - Concern for C5 cord edema, cord compression, a right lateral C5 fracture, and concern for numerous ligamentous injuries. 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 S/p decompression 07/26/2021 and repeat surgeries 09/25 and 09/26 Diabetes - sliding scale plus basal HTN - prn hydralazine HLD - statin when taking PO Cervical laminectomy as per above, diabetes, hypertension, hyperlipidemia, arthritis, GERD, left knee arthroplasty and TIA S/p; IVC filter FEN - ADAT PPX - SCDs FULL CODE Dispo - Inpatient History of Present Illness History of Present Illness 10/16: Seen in ICU notes spasming started again last night this happened about 6 times even when he tries to reach up and scratch his eyelid. Having some more pain in his right biceps and left Achilles area. 10/15: Seen bedside in ICU getting bed bath. Says his spasming is improved today having a little bit of shortness of breath but no cough. No chest pain. 10/14: Seen bedside in ICU. Still with spasming upon awakening in his hands and feet still with some weakness in his left foot. Poor appetite. 10/13: Patient seen and examined. Discussed with neurosurgery nurse practitioner Roberta 10/12: Patient seen and examined 10/11: Patient seen and examined. His discharge was held again as he was not accepted at [facility] 10/09: His sister is here as well discussed with her. Plan is to get the patient to [facility] long-term if they accept him 10/08: Patient seen and examined. He is moving his toes more each day 10/07: Patient seen and examined in the ICU (he is actually in overfull patient). He is working with his nurse to try to use his nurse button and remote control. Started to move his toes a little bit 10/06/2021 Patient seen and examined in the ICU I discussed the case with his sister again I also discussed the case with case management [facility] rehab may consider taking him after all now that he is improved over the past 3 days 10/05/2021 Patient seen and examined in the ICU His nurses are starting to get ready to clean him up His sister is present Discussed with RN Discussed with case management we are still awaiting rehab [facility] transfer if it can be arranged 10/04/2021 Patient seen and examined again in the ICU He remains very weak cannot move his legs was able to move his hands His sister is present I called case management they are checking into possibly if he could go to rehab [facility] Chart reviewed 10/03/2021 Patient seen and examined in the ICU Chart reviewed Discussed with RN Called case management We are hoping to get the patient transferred to [facility] if possible (they are evaluating his admission criteria to rehab) 10/02/2021 Patient seen and examined in the ICU He is still unable to move his legs He is able to move his hands and arms slightly but is very weak at bedside Chart reviewed Discussed with RN I called case management to see if maybe he could go to [facility] rehab sometime soon 10/01 Patient evaluated examined at bedside. Continues to improve. Continue rehab. Plan discussed with bedside RN. 09/30 Patient evaluated examined at bedside. Clinically about the same from yesterday. Continue rehab modalities. Labs stable. Plan discussed with bedside RN. 09/29 Patient evaluated at bedside. Underwent MRI this morning. Symptoms very similar to yesterday but he feels like he is regaining some function. Pain controlled. PT OT. Hemoglovin stable. 09/28 Evaluate examined at bedside. Resting in bed had no complaints to me. Said pain is quite improved. Did okay with transfusion yesterday. Continue current treatments. PT/OT. Discussed with bedside RN. Roxi 09/27 Patient evaluated examined at bedside. Was resting in bed easily awoken able to answer some questions. Some movement in his upper extremities but very limited in lower. Transfuse 1 unit today. Plan discussed with RN. Mr Terrell is a 60-year-old male w/ PMHx prediabetes, HLD, HTN and recent fall in July 2021 with cervical myelopathy and s/p cervical decompression with ACDF C5-6 07/26/2021 On 09/25/21 underwent cervical laminectomy, C3, C4, C5, C6, partial C7 with lateral mass fusion C3 through C7, Posterior nstrumentation C3-C7 on the left and posterior instrumentation C-C6 on the right. On 09/26/21 returned to OR for cervical hematoma evacuation. Vitals/I&O Vitals/I&O: Vital Signs Date Time Temp Pulse Resp B/P (MAP) Pulse Ox O2 Delivery O2 Flow Rate FiO2 10/16/21 08:26 81 107/73 10/16/21 07:42 Room Air 10/16/21 07:34 98.1 20 98 98.1 10/15/21 10:32 2.0 I & O 10/15/21 10/15/21 10/16/21 15:00 23:00 07:00 Intake Total 450 ml 400 ml Output Total 1000 ml 700 ml 850 ml Balance -550 ml -300 ml -850 ml Physical Exam General: Alert, Oriented X3, Cooperative Heart: Regular rate Lungs: Clear Abdomen: Normal bowel sounds, Soft, No tenderness Extremities: No edema, Normal pulses Skin: Other (dressing clean, dry and intact) Labs Labs: Laboratory Tests Test 10/15/21 12:27 10/15/21 17:11 10/15/21 21:38 10/16/21 07:15 Glucose (Fingerstick) 128 mg/dL (70-99) 114 mg/dL (70-99) 156 mg/dL (70-99) 133 mg/dL (70-99) Comment Review of Relevant I have reviewed the following items michelle (where applicable) has been applied. Medications: Current Medications Medications (Trade) Dose Ordered Sig/[place] Route PRN Reason Start Time Stop Time Status Last Admin Dose Admin Potassium Chloride (Klor-Con) 40 meq 1X ONCE PO 10/15/21 10:30 10/15/21 10:31 DC 10/15/21 10:21 Magnesium Sulfate 50 ml @ 25 mls/hr 1X ONCE IV 10/15/21 10:30 10/15/21 12:29 DC 10/15/21 10:20 Justifications for Admission Other Justification uncontrolled diabetes STACY HOUSTON MD Oct 16, 2021 09:53
--- NOTE | 2021-10-16 13:27 | PDOC ---
PROGRESS NOTES Date of Service DATE: 10/16/21 TIME: 13:25 Subjective Subjective He admits muscle spasms disturbed his sleep last night. Objective Objective Vital Signs Date Time Temp Pulse Resp B/P (MAP) Pulse Ox O2 Delivery O2 Flow Rate FiO2 10/16/21 11:16 Room Air 10/16/21 11:15 98.0 78 20 135/77 (96) 98 98.0 10/15/21 10:32 2.0 Intake and Output 10/16/21 07:00 Intake Total 850 ml Output Total 2550 ml Balance -1700 ml Intake Oral 850 ml Output Urine Total 2550 ml # Bowel Movements 2 Physical Exam Physical Exam He is alert,supine in bed and no change with his neurological status. He apparently had 20 days of SNF benefits left out and social service helping with medicaid application. Plan Plan of Care To continue present care efforts while waiting for SNF transfer. Comment Review of Relevant I have reviewed the following items michelle (where applicable) has been applied. Labs Laboratory Tests Test 10/14/21 17:29 10/15/21 04:00 10/15/21 12:27 10/15/21 17:11 Glucose (Fingerstick) 127 mg/dL (70-99) 128 mg/dL (70-99) 114 mg/dL (70-99) Sodium Level 142 mmol/L (136-145) Potassium Level 3.6 mmol/L (3.5-5.1) Chloride Level 106 mmol/L (98-107) Carbon Dioxide Level 30 mmol/L (21-32) Anion Gap 6 (6-14) Blood Urea Nitrogen 13 mg/dL (8-26) Creatinine 0.9 mg/dL (0.7-1.3) Estimated GFR (Cockcroft-Gault) 103.8 BUN/Creatinine Ratio 14 (6-20) Glucose Level 116 mg/dL (70-99) Calcium Level 8.6 mg/dL (8.5-10.1) Phosphorus Level 5.2 mg/dL (2.6-4.7) Magnesium Level 1.7 mg/dL (1.8-2.4) Total Bilirubin 0.3 mg/dL (0.2-1.0) Aspartate Amino Transf (AST/SGOT) 12 U/L (15-37) Alanine Aminotransferase (ALT/SGPT) 12 U/L (16-63) Alkaline Phosphatase 70 U/L (46-116) Creatine Kinase 43 U/L (39-308) Total Protein 6.6 g/dL (6.4-8.2) Albumin 2.4 g/dL (3.4-5.0) Albumin/Globulin Ratio 0.6 (1.0-1.7) Vitamin B12 Level 602 pg/mL (247-911) Thyroid Stimulating Hormone (TSH) 2.166 uIU/mL (0.358-3.74) Test 10/15/21 21:38 10/16/21 07:15 10/16/21 12:48 Glucose (Fingerstick) 156 mg/dL (70-99) 133 mg/dL (70-99) 148 mg/dL (70-99) Laboratory Tests Test 10/15/21 17:11 10/15/21 21:38 10/16/21 07:15 10/16/21 12:48 Glucose (Fingerstick) 114 mg/dL (70-99) 156 mg/dL (70-99) 133 mg/dL (70-99) 148 mg/dL (70-99) Microbiology 10/01/21 Urine Culture - Final, Complete Escherichia Coli Escherichia Coli#2 Medications Current Medications Fentanyl Citrate (Fentanyl 2ml Vial) 25 mcg PRN Q5MIN PRN IVP MILD PAIN 1-3; Start 09/25/21 at 06:00; Stop 09/25/21 at 20:00; Status DC Fentanyl Citrate (Fentanyl 2ml Vial) 50 mcg PRN Q5MIN PRN IVP MODERATE PAIN 4-6 Last administered on 09/25/21at 13:48; Start 09/25/21 at 06:00; Stop 09/25/21 at 20:00; Status DC Morphine Sulfate (Morphine Sulfate) 1 mg PRN Q10MIN PRN IVP SEVERE PAIN 7-10 Last administered on 09/25/21at 14:21; Start 09/25/21 at 06:00; Stop 09/25/21 at 20:00; Status DC Ringer's Solution 1,000 ml @ 30 mls/hr Q24H IV Last administered on 09/25/21at 12:54; Start 09/25/21 at 06:00; Stop 09/25/21 at 17:59; Status DC Hydromorphone HCl (Dilaudid) 0.5 mg PRN Q10MIN PRN IVP SEVERE PAIN 7-10, 2nd CHOICE Last administered on 09/25/21at 16:53; Start 09/25/21 at 06:00; Stop 09/25/21 at 20:00; Status DC Prochlorperazine Edisylate (Compazine) 5 mg PACU PRN PRN IVP NAUSEA, MRX1; Start 09/25/21 at 06:00; Stop 09/25/21 at 20:00; Status DC Cefazolin Sodium 1 gm/Sodium Chloride 1,000 ml @ 1,000 mls/hr 1X ONCE IRR Last administered on 09/25/21at 10:14; Start 09/25/21 at 06:00; Stop 09/25/21 at 06:59; Status DC Cefazolin Sodium/ Dextrose 50 ml @ 100 mls/hr 1X PREOP PRN IV PRIOR TO PROCEDURE Last administered on 09/25/21at 09:30; Start 09/25/21 at 06:00; Stop 09/25/21 at 13:39; Status DC Insulin Human Lispro (HumaLOG VIAL for OP,RR ONLY) 0-10 units PRN Q1HR PRN SQ PER PROTOCOL Last administered on 09/25/21at 17:01; Start 09/25/21 at 07:00; Stop 09/25/21 at 18:00; Status DC Bupivacaine HCl/ Epinephrine Bitart (Sensorcain-Epi 0.5% Kit) 30 ml STK-MED ONCE INJ Last administered on 09/25/21at 10:14; Start 09/25/21 at 10:14; Stop 09/25/21 at 10:30; Status DC Ketorolac Tromethamine (Toradol Im) 60 mg STK-MED ONCE INJ Last administered on 09/25/21at 10:14; Start 09/25/21 at 10:14; Stop 09/25/21 at 10:30; Status DC Thrombin 20,000 unit STK-MED ONCE TP Last administered on 09/25/21at 10:14; Start 09/25/21 at 10:14; Stop 09/25/21 at 10:30; Status DC Gelatin (Gelfoam Size 100) 1 each STK-MED ONCE TP Last administered on 09/25/21at 10:14; Start 09/25/21 at 10:14; Stop 09/25/21 at 10:30; Status DC Acetaminophen (Tylenol) 650 mg PRN Q4HRS PRN PO TEMP OVER 100.4F OR MILD PAIN Last administered on 10/16/21 04:15; Start 09/25/21 at 12:30 Aspirin (Aspirin Chewable) 81 mg DAILY PO Last administered on 09/26/21 08:30; Start 09/26/21 at 09:00; Stop 09/28/21 at 17:19; Status DC Atorvastatin Calcium (Lipitor) 10 mg QHS PO Last administered on 10/15/21 21:09; Start 09/25/21 at 21:00 Baclofen (Lioresal) 10 mg BID PO Last administered on 10/16/21 08:26; Start 09/25/21 at 21:00 Diazepam (Valium) 5 mg TID PO Last administered on 10/16/21 08:26; Start 09/25/21 at 14:00 Docusate Sodium (Colace) 100 mg PRN BID PRN PO HARD STOOLS Last administered on 10/15/21 10:22; Start 09/25/21 at 12:30 Fluticasone Propionate (Flonase) 2 spray DAILY NS Last administered on 10/13/21 08:55; Start 09/26/21 at 09:00 Hydroxyzine HCl (Atarax) 25 mg PRN Q6HRS PRN PO Itching (2ND Choice) Last administered on 10/15/21 21:16; Start 09/25/21 at 12:30 Lidocaine (Lidoderm) 1 patch QHS TP Last administered on 10/03/21 23:31; Start 09/25/21 at 20:00; Stop 10/05/21 at 01:01; Status DC Linagliptin (Tradjenta) 5 mg DAILY PO Last administered on 10/16/21 08:26; Start 09/25/21 at 13:00 Miconazole Nitrate (Monistat-Derm) 1 crispin TID TP Last administered on 10/04/21 20:08; Start 09/25/21 at 21:00; Stop 10/05/21 at 13:23; Status DC Midodrine (Proamatine) 2.5 mg PRN 1X PRN PO hypotension Last administered on 2/9/22at 08:56; Start 09/25/21 at 12:30 Oxycodone HCl (Roxicodone) 10 mg PRN Q6HRS PRN PO MODERATE-SEVERE PAIN Last administered on 10/15/21at 10:32; Start 09/25/21 at 12:30 Diclofenac Sodium (Voltaren) 1 crispin PRN TID PRN TP PAIN CONTROL; Start 09/25/21 at 13:15; Stop 09/25/21 at 18:37; Status DC Insulin Glargine (Lantus Syringe) 4 unit QHS SQ Last administered on 10/15/21at 21:11; Start 09/25/21 at 21:00 Losartan Potassium (Cozaar) 25 mg DAILY08 PO Last administered on 10/16/21at 08:26; Start 09/26/21 at 08:00 Polyethylene Glycol (miraLAX PACKET) 17 gm DAILY PO Last administered on 10/13/21at 08:53; Start 09/25/21 at 14:00 Pregabalin (Lyrica) 100 mg BID PO Last administered on 10/16/21at 08:25; Start 09/25/21 at 21:00 Acetaminophen (Tylenol) 650 mg PRN Q6HRS PRN PO MILD PAIN / TEMP > 100.3'F; Start 09/25/21 at 12:30; Status Cancel Al Hydroxide/Mg Hydroxide (Mylanta Plus Xs) 30 ml PRN Q3HRS PRN PO HEARTBURN / GAS; Start 09/25/21 at 12:30 Calcium Carbonate/ Glycine (Tums) 500 mg PRN Q3HRS PRN PO INDIGESTION; Start 09/25/21 at 12:30 Diphenhydramine HCl (Benadryl) 25 mg PRN Q6HRS PRN PO ITCHING (1ST CHOICE); Start 09/25/21 at 12:30 Naloxone HCl (Narcan) 0.1 mg PRN Q2MIN PRN IV SEE COMMENTS; Start 09/25/21 at 12:30 Sodium Chloride (Normal Saline Flush) 3 ml QSHIFT PRN IV AFTER MEDS AND BLOOD DRAWS; Start 09/25/21 at 12:30 Potassium Chloride/Sodium Chloride 1,000 ml @ 75 mls/hr [id number] IV Last administered on 09/26/21at 07:00; Start 09/25/21 at 12:30; Stop 09/26/21 at 17:33; Status DC Magnesium Hydroxide (Milk Of Magnesia) 2,400 mg PRN Q12HR PRN PO CONSTIPATION; Start 09/25/21 at 12:30 Cefazolin Sodium (Ancef) 1 gm Q8H IVP Last administered on 09/26/21at 04:14; Start 09/25/21 at 18:00; Stop 09/26/21 at 10:01; Status DC Fentanyl Citrate (Fentanyl 2ml Vial) 50 mcg PRN Q2HR PRN IVP MODERATE TO SEVERE PAIN Last administered on 10/05/21at 22:46; Start 09/25/21 at 12:30 Dextrose (Dextrose 50%-Water Syringe) 12.5 gm PRN Q15MIN PRN IV SEE COMMENTS; Start 09/25/21 at 12:30; Status Cancel Dextrose (Iv Dextrose 5%) 250 ml PRN Q15MIN PRN IV SEE COMMENTS; Start 09/25/21 at 12:30; Status Cancel Gelatin (Gelfoam Size 100) 1 each STK-MED ONCE .ROUTE ; Start 09/25/21 at 06:37; Stop 09/25/21 at 14:55; Status DC Bupivacaine HCl/ Epinephrine Bitart (Sensorcain-Epi 0.5% Kit) 30 ml STK-MED ONCE .ROUTE ; Start 09/25/21 at 06:37; Stop 09/25/21 at 14:55; Status DC Ketorolac Tromethamine (Toradol Im) 60 mg STK-MED ONCE .ROUTE ; Start 09/25/21 at 06:37; Stop 09/25/21 at 14:55; Status DC Thrombin 20,000 unit STK-MED ONCE TP ; Start 09/25/21 at 06:38; Stop 09/25/21 at 14:55; Status DC Propofol (Diprivan) 200 mg STK-MED ONCE IV ; Start 09/25/21 at 05:54; Stop 09/25/21 at 14:57; Status DC Lidocaine HCl (Lidocaine Pf 2% Vial) 5 ml STK-MED ONCE .ROUTE ; Start 09/25/21 at 05:54; Stop 09/25/21 at 14:57; Status DC Ondansetron HCl (Zofran) 4 mg STK-MED ONCE .ROUTE ; Start 09/25/21 at 05:54; Stop 09/25/21 at 14:57; Status DC Phenylephrine HCl (Ramone-Synephrine Inj) 10 mg STK-MED ONCE .ROUTE ; Start 09/25/21 at 05:54; Stop 09/25/21 at 14:57; Status DC Propofol 50 ml @ As Directed STK-MED ONCE IV ; Start 09/25/21 at 05:54; Stop 09/25/21 at 14:57; Status DC Dexamethasone Sodium Phosphate (Decadron) 4 mg STK-MED ONCE .ROUTE ; Start 09/25/21 at 05:54; Stop 09/25/21 at 14:57; Status DC Fentanyl Citrate (Fentanyl 2ml Vial) 100 mcg STK-MED ONCE .ROUTE ; Start 09/25/21 at 05:54; Stop 09/25/21 at 14:57; Status DC Succinylcholine Chloride (Anectine) 200 mg STK-MED ONCE .ROUTE ; Start 09/25/21 at 05:54; Stop 09/25/21 at 14:57; Status DC Remifentanil HCl (Ultiva) 1 mg STK-MED ONCE IV ; Start 09/25/21 at 05:54; Stop 09/25/21 at 14:57; Status DC Glycopyrrolate (Robinul) 1 mg STK-MED ONCE .ROUTE ; Start 09/25/21 at 07:11; Stop 09/25/21 at 15:01; Status DC Propofol 50 ml @ As Directed STK-MED ONCE IV ; Start 09/25/21 at 08:07; Stop 09/25/21 at 15:02; Status DC Ketamine HCl (Ketamine) 50 mg STK-MED ONCE .ROUTE ; Start 09/25/21 at 08:15; Stop 09/25/21 at 15:02; Status DC Hydromorphone HCl (Dilaudid) 2 mg STK-MED ONCE .ROUTE ; Start 09/25/21 at 10:44; Stop 09/25/21 at 15:03; Status DC Fentanyl Citrate (Fentanyl 2ml Vial) 100 mcg STK-MED ONCE .ROUTE ; Start 09/25/21 at 13:26; Stop 09/25/21 at 15:04; Status DC Morphine Sulfate (Morphine Sulfate) 2 mg STK-MED ONCE .ROUTE ; Start 09/25/21 at 14:04; Stop 09/25/21 at 15:05; Status DC Hydromorphone HCl (Dilaudid) 2 mg STK-MED ONCE .ROUTE ; Start 09/25/21 at 14:54; Stop 09/25/21 at 15:06; Status DC Menthol/Methyl Salicylate (Bengay Greaseless Cream) 1 crispin PRN Q30MIN PRN TP MUSCLE PAIN Last administered on 10/02/21at 21:03; Start 09/25/21 at 18:45 Mupirocin (Bactroban) 1 crispin BID NS Last administered on 10/12/21at 21:09; Start 09/26/21 at 09:00; Stop 10/13/21 at 07:56; Status DC Dexamethasone Sodium Phosphate (Decadron) 10 mg 1X ONCE IVP Last administered on 09/26/21at 07:31; Start 09/26/21 at 07:30; Stop 09/26/21 at 07:31; Status DC Cefazolin Sodium 1 gm/Sodium Chloride 1,000 ml @ 1,000 mls/hr 1X ONCE IRR Last administered on 09/26/21at 11:52; Start 09/26/21 at 10:30; Stop 09/26/21 at 11:29; Status DC Cefazolin Sodium (Ancef) 1 gm STK-MED ONCE IVP ; Start 09/26/21 at 10:05; Stop 09/26/21 at 10:06; Status DC Lidocaine HCl (Lidocaine Pf 2% Vial) 5 ml STK-MED ONCE .ROUTE ; Start 09/26/21 at 10:18; Stop 09/26/21 at 10:18; Status DC Ondansetron HCl (Zofran) 4 mg STK-MED ONCE .ROUTE ; Start 09/26/21 at 10:18; Stop 09/26/21 at 10:18; Status DC Propofol (Diprivan) 200 mg STK-MED ONCE IV ; Start 09/26/21 at 10:18; Stop 09/26/21 at 10:19; Status DC Dexamethasone Sodium Phosphate (Decadron) 4 mg STK-MED ONCE .ROUTE ; Start 09/26/21 at 10:18; Stop 09/26/21 at 10:19; Status DC Sevoflurane (Ultane) 30 ml STK-MED ONCE IH ; Start 09/26/21 at 10:18; Stop 09/26/21 at 10:19; Status DC Fentanyl Citrate (Fentanyl 2ml Vial) 100 mcg STK-MED ONCE .ROUTE ; Start 09/26/21 at 10:19; Stop 09/26/21 at 10:19; Status DC Rocuronium [place] (Zemuron) 50 mg STK-MED ONCE .ROUTE ; Start 09/26/21 at 10:19; Stop 09/26/21 at 10:19; Status DC Insulin Human Lispro (HumaLOG VIAL for OP,RR ONLY) 0-10 units PRN Q1HR PRN SQ PER PROTOCOL Last administered on 09/26/21at 15:11; Start 09/26/21 at 10:30; Stop 09/26/21 at 18:00; Status DC Sugammadex Sodium (Bridion) 200 mg 1X ONCE IVP Last administered on 09/26/21at 10:30; Start 09/26/21 at 10:30; Stop 09/26/21 at 10:31; Status DC Gelatin (Gelfoam Size 100) 1 each STK-MED ONCE .ROUTE Last administered on 09/26/21at 11:52; Start 09/26/21 at 10:30; Stop 09/26/21 at 10:30; Status DC Bupivacaine HCl/ Epinephrine Bitart (Sensorcain-Epi 0.5% Kit) 30 ml STK-MED ONCE .ROUTE ; Start 09/26/21 at 10:30; Stop 09/26/21 at 10:30; Status DC Ketorolac Tromethamine (Toradol Im) 60 mg STK-MED ONCE .ROUTE ; Start 09/26/21 at 10:30; Stop 09/26/21 at 10:30; Status DC Thrombin 20,000 unit STK-MED ONCE TP Last administered on 09/26/21at 11:52; Start 09/26/21 at 10:30; Stop 09/26/21 at 10:31; Status DC Cefazolin Sodium/ Dextrose 50 ml @ As Directed STK-MED ONCE IV ; Start 09/26/21 at 10:32; Stop 09/26/21 at 10:32; Status DC Vancomycin HCl 1 gm/Sodium Chloride 250 ml @ 250 mls/hr PREOP PRN PRN IV PRIOR TO PROCEDURE; Start 09/26/21 at 10:45; Stop 09/26/21 at 14:00; Status DC Cefazolin Sodium/ Dextrose 50 ml @ 100 mls/hr 1X ONCE IV Last administered on 09/26/21at 11:00; Start 09/26/21 at 11:00; Stop 09/26/21 at 11:29; Status DC Dexamethasone Sodium Phosphate (Decadron) 4 mg STK-MED ONCE .ROUTE ; Start 09/26/21 at 11:04; Stop 09/26/21 at 11:04; Status DC Glycopyrrolate (Robinul) 1 mg STK-MED ONCE .ROUTE ; Start 09/26/21 at 11:04; Stop 09/26/21 at 11:04; Status DC Hydromorphone HCl (Dilaudid) 2 mg STK-MED ONCE .ROUTE ; Start 09/26/21 at 11:56; Stop 09/26/21 at 11:56; Status DC Fentanyl Citrate (Fentanyl 2ml Vial) 25 mcg PRN Q5MIN PRN IVP MILD PAIN 1-3; Start 09/26/21 at 14:30; Stop 09/26/21 at 18:15; Status DC Fentanyl Citrate (Fentanyl 2ml Vial) 50 mcg PRN Q5MIN PRN IVP MODERATE PAIN 4- 6; Start 09/26/21 at 14:30; Stop 09/26/21 at 18:15; Status DC Morphine Sulfate (Morphine Sulfate) 1 mg PRN Q10MIN PRN IVP SEVERE PAIN 7-10; Start 09/26/21 at 14:30; Stop 09/26/21 at 18:15; Status DC Ringer's Solution 1,000 ml @ 30 mls/hr Q24H IV Last administered on 09/26/21at 15:18; Start 09/26/21 at 14:30; Stop 09/26/21 at 21:00; Status DC Hydromorphone HCl (Dilaudid) 0.5 mg PRN Q10MIN PRN IVP SEVERE PAIN 7-10, 2nd CHOICE; Start 09/26/21 at 14:30; Stop 09/26/21 at 18:15; Status DC Prochlorperazine Edisylate (Compazine) 5 mg PACU PRN PRN IVP NAUSEA, MRX1; Start 09/26/21 at 14:30; Stop 09/26/21 at 21:00; Status DC Fentanyl Citrate (Fentanyl 2ml Vial) 100 mcg STK-MED ONCE .ROUTE ; Start 09/26/21 at 14:23; Stop 09/26/21 at 14:25; Status DC Fentanyl Citrate (Fentanyl 2ml Vial) 25 mcg PRN Q5MIN PRN IVP MILD PAIN 1-3; Start 09/26/21 at 14:30; Stop 09/27/21 at 14:29; Status UNV Fentanyl Citrate (Fentanyl 2ml Vial) 50 mcg PRN Q5MIN PRN IVP MODERATE PAIN 4- 6; Start 09/26/21 at 14:30; Stop 09/27/21 at 14:29; Status UNV Morphine Sulfate (Morphine Sulfate) 1 mg PRN Q10MIN PRN IVP SEVERE PAIN 7-10; Start 09/26/21 at 14:30; Stop 09/27/21 at 14:29; Status UNV Ringer's Solution 1,000 ml @ 30 mls/hr Q24H IV ; Start 09/26/21 at 14:30; Stop 09/27/21 at 02:29; Status UNV Hydromorphone HCl (Dilaudid) 0.5 mg PRN Q10MIN PRN IVP SEVERE PAIN 7-10, 2nd CHOICE; Start 09/26/21 at 14:30; Stop 09/27/21 at 14:29; Status UNV Prochlorperazine Edisylate (Compazine) 5 mg PACU PRN PRN IVP NAUSEA, MRX1; Start 09/26/21 at 14:30; Stop 09/27/21 at 14:29; Status UNV Dexamethasone Sodium Phosphate (Decadron) 4 mg Q6HRS IVP Last administered on 09/28/21at 05:06; Start 09/26/21 at 18:00; Stop 09/28/21 at 06:00; Status DC Sodium Chloride 1,000 ml @ 100 mls/hr Q10H IV Last administered on 10/05/21at 06:41; Start 09/26/21 at 17:30; Stop 10/05/21 at 13:48; Status DC Cefazolin Sodium (Ancef) 1 gm Q8HRS IVP ; Start 09/27/21 at 06:00; Stop 09/27/21 at 05:47; Status DC Vancomycin HCl 1 gm/Sodium Chloride 250 ml @ 166.667 mls/hr 1X ONCE IV Last administered on 09/27/21at 06:27; Start 09/27/21 at 06:00; Stop 09/27/21 at 07:29; Status DC Gadoterate Meglumine (Clariscan) 19 ml 1X ONCE IVP Last administered on 09/29/21at 10:32; Start 09/29/21 at 08:15; Stop 09/29/21 at 08:17; Status DC Bisacodyl (Dulcolax Supp) 10 mg PRN DAILY PRN NM CONSTIPATION; Start 09/29/21 at 14:15 Lactulose (Lactulose) 20 gm PRN DAILY PRN PO CONSTIPATION, 2nd choice Last administered on 10/01/21at 08:35; Start 09/29/21 at 14:30 Ascorbic Acid (Vitamin C) 500 mg DAILY PO Last administered on 10/16/21at 08:26; Start 10/02/21 at 10:00 Levofloxacin/ Dextrose 100 ml @ 100 mls/hr Q24H IV Last administered on 10/02/21at 12:15; Start 10/02/21 at 12:00; Stop 10/03/21 at 08:57; Status DC Levofloxacin/ Dextrose 50 ml @ 50 mls/hr Q24H IV Last administered on 10/06/21at 15:19; Start 10/03/21 at 12:00; Stop 10/06/21 at 23:00; Status DC Lactobacillus Rhamnosus (Culturelle) 1 cap BID PO Last administered on 10/16/21at 08:25; Start 10/03/21 at 21:00 Lidocaine (Lidoderm) 1 patch QHS TP Last administered on 10/15/21at 21:09; Start 10/04/21 at 22:00 Levofloxacin (Levaquin) 250 mg DAILY06 PO Last administered on 10/11/21at 06:13; Start 10/07/21 at 06:00; Stop 10/11/21 at 12:00; Status DC Insulin Human Lispro (HumaLOG) 0-5 UNITS TIDWMEALS SQ Last administered on 10/14/21at 12:11; Start 10/12/21 at 08:00 Dextrose (Dextrose 50%-Water Syringe) 12.5 gm PRN Q15MIN PRN IV SEE COMMENTS; Start 10/11/21 at 19:00 Dextrose (Iv Dextrose 5%) 250 ml PRN Q15MIN PRN IV SEE COMMENTS; Start 10/11/21 at 19:00 Potassium Chloride (Klor-Con) 40 meq 1X ONCE PO Last administered on 10/15/21at 10:21; Start 10/15/21 at 10:30; Stop 10/15/21 at 10:31; Status DC Magnesium Sulfate 50 ml @ 25 mls/hr 1X ONCE IV Last administered on 10/15/21at 10:20; Start 10/15/21 at 10:30; Stop 10/15/21 at 12:29; Status DC Active Scripts Active Dok (Docusate Sodium) 100 Mg Capsule 100 Mg PO PRN BID PRN 30 Days Tylenol (Acetaminophen) 325 Mg Tablet 650 Mg PO PRN Q4HRS PRN 30 Days Valium (Diazepam) 5 Mg Tablet 5 Mg PO TID Atorvastatin Calcium 10 Mg Tablet 10 Mg PO QHS Reported Midodrine Hcl 2.5 Mg Tablet 2.5 Mg PO PRN 1X PRN Aspirin 81 Mg Tab.chew 81 Mg PO DAILY Baclofen 10 Mg Tablet 10 Mg PO BID Lyrica (Pregabalin) 100 Mg Capsule 100 Mg PO BID 30 Days Polyethylene Glycol 3350 2,500 Gm Powder 17 Gm PO DAILY 30 Days Micatin (Miconazole Nitrate) 14 Gm Cream..g. 1 Crispin TP TID Tradjenta (Linagliptin) 5 Mg Tablet 5 Mg PO DAILY Lidocaine PATCH (Lidocaine) 1 Each Adh..patch 1 Each TP DAILY REMOVE AFTER 12 HOURS Levemir (Insulin Detemir) 100 Unit/1 Ml Vial 4 Unit SQ HS Hydroxyzine Hcl 25 Mg Tablet 25 Mg PO PRN Q6HRS PRN Fluticasone Propionate Nasal Ocate (Fluticasone Propionate) 16 Gm Ocate.susp 2 Ocate NS DAILY Diclofenac Sodium 100 Gm Gel..gram. 100 Gm TP PRN TID PRN Losartan Potassium 100 Mg Tablet 25 Tab PO DAILY08 Vitals/I & O Vital Sign - Last 24 Hours 10/15/21 10/15/21 10/15/21 10/16/21 16:00 20:00 20:00 00:00 Temp 98.9 98.2 98.7 98.9 98.2 98.7 Pulse 72 74 89 Resp 16 16 16 B/P (MAP) 148/76 (100) 124/63 (83) 125/63 (83) Pulse Ox 94 95 97 O2 Delivery Room Air Room Air Room Air Room Air 10/16/21 10/16/21 10/16/21 10/16/21 04:00 07:34 07:42 08:26 Temp 98.3 98.1 98.3 98.1 Pulse 65 81 81 Resp 16 20 B/P (MAP) 132/65 (87) 107/73 (84) 107/73 Pulse Ox 97 98 O2 Delivery Room Air Room Air Room Air 10/16/21 10/16/21 11:15 11:16 Temp 98.0 98.0 Pulse 78 Resp 20 B/P (MAP) 135/77 (96) Pulse Ox 98 O2 Delivery Room Air Room Air Intake and Output 10/15/21 10/15/21 10/16/21 15:00 23:00 07:00 Intake Total 450 ml 400 ml Output Total 1000 ml 700 ml 850 ml Balance -550 ml -300 ml -850 ml Justifications for Admission Other Justification uncontrolled diabetes TERRY JURADO MD Oct 16, 2021 13:27
--- NOTE | 2021-10-16 15:41 | PDOC ---
PROGRESS NOTES Date of Service DATE: 10/16/21 TIME: 15:37 Subjective Subjective Patient seen at 1015 POD #20 S/P Evacuation of epidural hematoma, s/p cervical laminectomy and fusion 09/25/21 some spasms in upper extremities overnight, improved now Objective Objective Vital Signs Date Time Temp Pulse Resp B/P (MAP) Pulse Ox O2 Delivery O2 Flow Rate FiO2 10/16/21 15:15 98.2 81 18 148/71 (96) 98 Room Air 98.2 10/15/21 10:32 2.0 Intake and Output 10/16/21 07:00 Intake Total 850 ml Output Total 2550 ml Balance -1700 ml Intake Oral 850 ml Output Urine Total 2550 ml # Bowel Movements 2 Physical Exam General: Alert, Oriented X3, Cooperative, No acute distress Neuro: Normal speech, Other (sensation intact in upper and lower extremities, moves upper extremities with 3/5 strength, hand grasps slightly stronger- finger extension improved, moving bilateral great toes) Skin: Other (incision dry, healing well) Plan Plan of Care To continue present care efforts while waiting for SNF transfer.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 Labs Laboratory Tests Test 10/14/21 17:29 10/15/21 04:00 10/15/21 12:27 10/15/21 17:11 Glucose (Fingerstick) 127 mg/dL (70-99) 128 mg/dL (70-99) 114 mg/dL (70-99) Sodium Level 142 mmol/L (136-145) Potassium Level 3.6 mmol/L (3.5-5.1) Chloride Level 106 mmol/L (98-107) Carbon Dioxide Level 30 mmol/L (21-32) Anion Gap 6 (6-14) Blood Urea Nitrogen 13 mg/dL (8-26) Creatinine 0.9 mg/dL (0.7-1.3) Estimated GFR (Cockcroft-Gault) 103.8 BUN/Creatinine Ratio 14 (6-20) Glucose Level 116 mg/dL (70-99) Calcium Level 8.6 mg/dL (8.5-10.1) Phosphorus Level 5.2 mg/dL (2.6-4.7) Magnesium Level 1.7 mg/dL (1.8-2.4) Total Bilirubin 0.3 mg/dL (0.2-1.0) Aspartate Amino Transf (AST/SGOT) 12 U/L (15-37) Alanine Aminotransferase (ALT/SGPT) 12 U/L (16-63) Alkaline Phosphatase 70 U/L (46-116) Creatine Kinase 43 U/L (39-308) Total Protein 6.6 g/dL (6.4-8.2) Albumin 2.4 g/dL (3.4-5.0) Albumin/Globulin Ratio 0.6 (1.0-1.7) Vitamin B12 Level 602 pg/mL (247-911) Thyroid Stimulating Hormone (TSH) 2.166 uIU/mL (0.358-3.74) Test 10/15/21 21:38 10/16/21 07:15 10/16/21 12:48 Glucose (Fingerstick) 156 mg/dL (70-99) 133 mg/dL (70-99) 148 mg/dL (70-99) Laboratory Tests Test 10/15/21 17:11 10/15/21 21:38 10/16/21 07:15 10/16/21 12:48 Glucose (Fingerstick) 114 mg/dL (70-99) 156 mg/dL (70-99) 133 mg/dL (70-99) 148 mg/dL (70-99) Microbiology 10/01/21 Urine Culture - Final, Complete Escherichia Coli Escherichia Coli#2 Medications Current Medications Fentanyl Citrate (Fentanyl 2ml Vial) 25 mcg PRN Q5MIN PRN IVP MILD PAIN 1-3; Start 09/25/21 at 06:00; Stop 09/25/21 at 20:00; Status DC Fentanyl Citrate (Fentanyl 2ml Vial) 50 mcg PRN Q5MIN PRN IVP MODERATE PAIN 4-6 Last administered on 09/25/21at 13:48; Start 09/25/21 at 06:00; Stop 09/25/21 at 20:00; Status DC Morphine Sulfate (Morphine Sulfate) 1 mg PRN Q10MIN PRN IVP SEVERE PAIN 7-10 Last administered on 09/25/21at 14:21; Start 09/25/21 at 06:00; Stop 09/25/21 at 20:00; Status DC Ringer's Solution 1,000 ml @ 30 mls/hr Q24H IV Last administered on 09/25/21at 12:54; Start 09/25/21 at 06:00; Stop 09/25/21 at 17:59; Status DC Hydromorphone HCl (Dilaudid) 0.5 mg PRN Q10MIN PRN IVP SEVERE PAIN 7-10, 2nd CHOICE Last administered on 09/25/21at 16:53; Start 09/25/21 at 06:00; Stop 09/25/21 at 20:00; Status DC Prochlorperazine Edisylate (Compazine) 5 mg PACU PRN PRN IVP NAUSEA, MRX1; Start 09/25/21 at 06:00; Stop 09/25/21 at 20:00; Status DC Cefazolin Sodium 1 gm/Sodium Chloride 1,000 ml @ 1,000 mls/hr 1X ONCE IRR L ast administered on 09/25/21at 10:14; Start 09/25/21 at 06:00; Stop 09/25/21 at 06:59; Status DC Cefazolin Sodium/ Dextrose 50 ml @ 100 mls/hr 1X PREOP PRN IV PRIOR TO PROCEDURE Last administered on 09/25/21at 09:30; Start 09/25/21 at 06:00; Stop 09/25/21 at 13:39; Status DC Insulin Human Lispro (HumaLOG VIAL for OP,RR ONLY) 0-10 units PRN Q1HR PRN SQ PER PROTOCOL Last administered on 09/25/21at 17:01; Start 09/25/21 at 07:00; Stop 09/25/21 at 18:00; Status DC Bupivacaine HCl/ Epinephrine Bitart (Sensorcain-Epi 0.5% Kit) 30 ml STK-MED ONCE INJ Last administered on 09/25/21at 10:14; Start 09/25/21 at 10:14; Stop 09/25/21 at 10:30; Status DC Ketorolac Tromethamine (Toradol Im) 60 mg STK-MED ONCE INJ Last administered on 09/25/21at 10:14; Start 09/25/21 at 10:14; Stop 09/25/21 at 10:30; Status DC Thrombin 20,000 unit STK-MED ONCE TP Last administered on 09/25/21at 10:14; Start 09/25/21 at 10:14; Stop 09/25/21 at 10:30; Status DC Gelatin (Gelfoam Size 100) 1 each STK-MED ONCE TP Last administered on 09/25/21at 10:14; Start 09/25/21 at 10:14; Stop 09/25/21 at 10:30; Status DC Acetaminophen (Tylenol) 650 mg PRN Q4HRS PRN PO TEMP OVER 100.4F OR MILD PAIN Last administered on 10/16/21at 04:15; Start 09/25/21 at 12:30 Aspirin (Aspirin Chewable) 81 mg DAILY PO Last administered on 09/26/21 08:30; Start 09/26/21 at 09:00; Stop 09/28/21 at 17:19; Status DC Atorvastatin Calcium (Lipitor) 10 mg QHS PO Last administered on 10/15/21at 21:09; Start 09/25/21 at 21:00 Baclofen (Lioresal) 10 mg BID PO Last administered on 10/16/21 08:26; Start 09/25/21 at 21:00; Stop 10/16/21 at 13:21; Status DC Diazepam (Valium) 5 mg TID PO Last administered on 10/16/21 15:08; Start 09/25/21 at 14:00 Docusate Sodium (Colace) 100 mg PRN BID PRN PO HARD STOOLS Last administered on 10/15/21at 10:22; Start 09/25/21 at 12:30 Fluticasone Propionate (Flonase) 2 spray DAILY NS Last administered on 10/13/21at 08:55; Start 09/26/21 at 09:00 Hydroxyzine HCl (Atarax) 25 mg PRN Q6HRS PRN PO Itching (2ND Choice) Last administered on 10/15/21 21:16; Start 09/25/21 at 12:30 Lidocaine (Lidoderm) 1 patch QHS TP Last administered on 10/03/21 23:31; Start 09/25/21 at 20:00; Stop 10/05/21 at 01:01; Status DC Linagliptin (Tradjenta) 5 mg DAILY PO Last administered on 10/16/21 08:26; Start 09/25/21 at 13:00 Miconazole Nitrate (Monistat-Derm) 1 crispin TID TP Last administered on 10/04/21at 20:08; Start 09/25/21 at 21:00; Stop 10/05/21 at 13:23; Status DC Midodrine (Proamatine) 2.5 mg PRN 1X PRN PO hypotension Last administered on 09/27/21at 08:56; Start 09/25/21 at 12:30 Oxycodone HCl (Roxicodone) 10 mg PRN Q6HRS PRN PO MODERATE-SEVERE PAIN Last administered on 10/15/21at 10:32; Start 09/25/21 at 12:30 Diclofenac Sodium (Voltaren) 1 crispin PRN TID PRN TP PAIN CONTROL; Start 09/25/21 at 13:15; Stop 09/25/21 at 18:37; Status DC Insulin Glargine (Lantus Syringe) 4 unit QHS SQ Last administered on 10/15/21at 21:11; Start 09/25/21 at 21:00 Losartan Potassium (Cozaar) 25 mg DAILY08 PO Last administered on 10/16/21at 08:26; Start 09/26/21 at 08:00 Polyethylene Glycol (miraLAX PACKET) 17 gm DAILY PO Last administered on 10/13/21at 08:53; Start 09/25/21 at 14:00 Pregabalin (Lyrica) 100 mg BID PO Last administered on 10/16/21at 08:25; Start 09/25/21 at 21:00 Acetaminophen (Tylenol) 650 mg PRN Q6HRS PRN PO MILD PAIN / TEMP > 100.3'F; Start 09/25/21 at 12:30; Status Cancel Al Hydroxide/Mg Hydroxide (Mylanta Plus Xs) 30 ml PRN Q3HRS PRN PO HEARTBURN / GAS; Start 09/25/21 at 12:30 Calcium Carbonate/ Glycine (Tums) 500 mg PRN Q3HRS PRN PO INDIGESTION; Start 09/25/21 at 12:30 Diphenhydramine HCl (Benadryl) 25 mg PRN Q6HRS PRN PO ITCHING (1ST CHOICE); Start 09/25/21 at 12:30 Naloxone HCl (Narcan) 0.1 mg PRN Q2MIN PRN IV SEE COMMENTS; Start 09/25/21 at 12:30 Sodium Chloride (Normal Saline Flush) 3 ml QSHIFT PRN IV AFTER MEDS AND BLOOD DRAWS; Start 09/25/21 at 12:30 Potassium Chloride/Sodium Chloride 1,000 ml @ 75 mls/hr [id number] IV Last administered on 09/26/21at 07:00; Start 09/25/21 at 12:30; Stop 09/26/21 at 17:33; Status DC Magnesium Hydroxide (Milk Of Magnesia) 2,400 mg PRN Q12HR PRN PO CONSTIPATION; Start 09/25/21 at 12:30 Cefazolin Sodium (Ancef) 1 gm Q8H IVP Last administered on 09/26/21at 04:14; Start 09/25/21 at 18:00; Stop 09/26/21 at 10:01; Status DC Fentanyl Citrate (Fentanyl 2ml Vial) 50 mcg PRN Q2HR PRN IVP MODERATE TO SEVERE PAIN Last administered on 10/05/21at 22:46; Start 09/25/21 at 12:30 Dextrose (Dextrose 50%-Water Syringe) 12.5 gm PRN Q15MIN PRN IV SEE COMMENTS; Start 09/25/21 at 12:30; Status Cancel Dextrose (Iv Dextrose 5%) 250 ml PRN Q15MIN PRN IV SEE COMMENTS; Start 09/25/21 at 12:30; Status Cancel Gelatin (Gelfoam Size 100) 1 each STK-MED ONCE .ROUTE ; Start 09/25/21 at 06:37; Stop 09/25/21 at 14:55; Status DC Bupivacaine HCl/ Epinephrine Bitart (Sensorcain-Epi 0.5% Kit) 30 ml STK-MED ONCE .ROUTE ; Start 09/25/21 at 06:37; Stop 09/25/21 at 14:55; Status DC Ketorolac Tromethamine (Toradol Im) 60 mg STK-MED ONCE .ROUTE ; Start 09/25/21 at 06:37; Stop 09/25/21 at 14:55; Status DC Thrombin 20,000 unit STK-MED ONCE TP ; Start 09/25/21 at 06:38; Stop 09/25/21 at 14:55; Status DC Propofol (Diprivan) 200 mg STK-MED ONCE IV ; Start 09/25/21 at 05:54; Stop 09/25/21 at 14:57; Status DC Lidocaine HCl (Lidocaine Pf 2% Vial) 5 ml STK-MED ONCE .ROUTE ; Start 09/25/21 at 05:54; Stop 09/25/21 at 14:57; Status DC Ondansetron HCl (Zofran) 4 mg STK-MED ONCE .ROUTE ; Start 09/25/21 at 05:54; Stop 09/25/21 at 14:57; Status DC Phenylephrine HCl (Ramone-Synephrine Inj) 10 mg STK-MED ONCE .ROUTE ; Start 09/25/21 at 05:54; Stop 09/25/21 at 14:57; Status DC Propofol 50 ml @ As Directed STK-MED ONCE IV ; Start 09/25/21 at 05:54; Stop 09/25 at 14:57; Status DC Dexamethasone Sodium Phosphate (Decadron) 4 mg STK-MED ONCE .ROUTE ; Start 09/25/21 at 05:54; Stop 09/25/21 at 14:57; Status DC Fentanyl Citrate (Fentanyl 2ml Vial) 100 mcg STK-MED ONCE .ROUTE ; Start 09/25/21 at 05:54; Stop 09/25/21 at 14:57; Status DC Succinylcholine Chloride (Anectine) 200 mg STK-MED ONCE .ROUTE ; Start 09/25/21 at 05:54; Stop 09/25/21 at 14:57; Status DC Remifentanil HCl (Ultiva) 1 mg STK-MED ONCE IV ; Start 09/25/21 at 05:54; Stop 09/25/21 at 14:57; Status DC Glycopyrrolate (Robinul) 1 mg STK-MED ONCE .ROUTE ; Start 09/25/21 at 07:11; Stop 09/25/21 at 15:01; Status DC Propofol 50 ml @ As Directed STK-MED ONCE IV ; Start 09/25/21 at 08:07; Stop 09/25/21 at 15:02; Status DC Ketamine HCl (Ketamine) 50 mg STK-MED ONCE .ROUTE ; Start 09/25/21 at 08:15; Stop 09/25/21 at 15:02; Status DC Hydromorphone HCl (Dilaudid) 2 mg STK-MED ONCE .ROUTE ; Start 09/25/21 at 10:44; Stop 09/25/21 at 15:03; Status DC Fentanyl Citrate (Fentanyl 2ml Vial) 100 mcg STK-MED ONCE .ROUTE ; Start 09/25/21 at 13:26; Stop 09/25/21 at 15:04; Status DC Morphine Sulfate (Morphine Sulfate) 2 mg STK-MED ONCE .ROUTE ; Start 09/25/21 at 14:04; Stop 09/25/21 at 15:05; Status DC Hydromorphone HCl (Dilaudid) 2 mg STK-MED ONCE .ROUTE ; Start 09/25/21 at 14:54; Stop 09/25/21 at 15:06; Status DC Menthol/Methyl Salicylate ([place] Greaseless Cream) 1 crispin PRN Q30MIN PRN TP MUSCLE PAIN Last administered on 10/02/21at 21:03; Start 09/25/21 at 18:45 Mupirocin (Bactroban) 1 crispin BID NS Last administered on 10/12/21at 21:09; Start 09/26/21 at 09:00; Stop 10/13/21 at 07:56; Status DC Dexamethasone Sodium Phosphate (Decadron) 10 mg 1X ONCE IVP Last administered on 09/26/21at 07:31; Start 09/26/21 at 07:30; Stop 09/26/21 at 07:31; Status DC Cefazolin Sodium 1 gm/Sodium Chloride 1,000 ml @ 1,000 mls/hr 1X ONCE IRR Last administered on 09/26/21at 11:52; Start 09/26/21 at 10:30; Stop 09/26/21 at 11:29; Status DC Cefazolin Sodium (Ancef) 1 gm STK-MED ONCE IVP ; Start 09/26/21 at 10:05; Stop 09/26/21 at 10:06; Status DC Lidocaine HCl (Lidocaine Pf 2% Vial) 5 ml STK-MED ONCE .ROUTE ; Start 09/26/21 at 10:18; Stop 09/26/21 at 10:18; Status DC Ondansetron HCl (Zofran) 4 mg STK-MED ONCE .ROUTE ; Start 09/26/21 at 10:18; Stop 09/26/21 at 10:18; Status DC Propofol (Diprivan) 200 mg STK-MED ONCE IV ; Start 09/26/21 at 10:18; Stop 09/26/21 at 10:19; Status DC Dexamethasone Sodium Phosphate (Decadron) 4 mg STK-MED ONCE .ROUTE ; Start 09/26/21 at 10:18; Stop 09/26/21 at 10:19; Status DC Sevoflurane (Ultane) 30 ml STK-MED ONCE IH ; Start 09/26/21 at 10:18; Stop 09/26/21 at 10:19; Status DC Fentanyl Citrate (Fentanyl 2ml Vial) 100 mcg STK-MED ONCE .ROUTE ; Start 09/26/21 at 10:19; Stop 09/26/21 at 10:19; Status DC Rocuronium [place] (Zemuron) 50 mg STK-MED ONCE .ROUTE ; Start 09/26/21 at 10:19; Stop 09/26/21 at 10:19; Status DC Insulin Human Lispro (HumaLOG VIAL for OP,RR ONLY) 0-10 units PRN Q1HR PRN SQ PER PROTOCOL Last administered on 09/26/21at 15:11; Start 09/26/21 at 10:30; Stop 09/26/21 at 18:00; Status DC Sugammadex Sodium (Bridion) 200 mg 1X ONCE IVP Last administered on 09/26/21at 10:30; Start 09/26/21 at 10:30; Stop 09/26/21 at 10:31; Status DC Gelatin (Gelfoam Size 100) 1 each STK-MED ONCE .ROUTE Last administered on 09/26/21at 11:52; Start 09/26/21 at 10:30; Stop 09/26/21 at 10:30; Status DC Bupivacaine HCl/ Epinephrine Bitart (Sensorcain-Epi 0.5% Kit) 30 ml STK-MED ONCE .ROUTE ; Start 09/26/21 at 10:30; Stop 09/26/21 at 10:30; Status DC Ketorolac Tromethamine (Toradol Im) 60 mg STK-MED ONCE .ROUTE ; Start 09/26/21 at 10:30; Stop 09/26/21 at 10:30; Status DC Thrombin 20,000 unit STK-MED ONCE TP Last administered on 09/26/21at 11:52; Start 09/26/21 at 10:30; Stop 09/26/21 at 10:31; Status DC Cefazolin Sodium/ Dextrose 50 ml @ As Directed STK-MED ONCE IV ; Start 09/26/21 at 10:32; Stop 09/26/21 at 10:32; Status DC Vancomycin HCl 1 gm/Sodium Chloride 250 ml @ 250 mls/hr PREOP PRN PRN IV PRIOR TO PROCEDURE; Start 09/26/21 at 10:45; Stop 09/26/21 at 14:00; Status DC Cefazolin Sodium/ Dextrose 50 ml @ 100 mls/hr 1X ONCE IV Last administered on 09/26/21at 11:00; Start 09/26/21 at 11:00; Stop 09/26/21 at 11:29; Status DC Dexamethasone Sodium Phosphate (Decadron) 4 mg STK-MED ONCE .ROUTE ; Start 09/26/21 at 11:04; Stop 09/26/21 at 11:04; Status DC Glycopyrrolate (Robinul) 1 mg STK-MED ONCE .ROUTE ; Start 09/26/21 at 11:04; St op 09/26/21 at 11:04; Status DC Hydromorphone HCl (Dilaudid) 2 mg STK-MED ONCE .ROUTE ; Start 09/26/21 at 11:56; Stop 09/26/21 at 11:56; Status DC Fentanyl Citrate (Fentanyl 2ml Vial) 25 mcg PRN Q5MIN PRN IVP MILD PAIN 1-3; Start 09/26/21 at 14:30; Stop 09/26/21 at 18:15; Status DC Fentanyl Citrate (Fentanyl 2ml Vial) 50 mcg PRN Q5MIN PRN IVP MODERATE PAIN 4- 6; Start 09/26/21 at 14:30; Stop 09/26/21 at 18:15; Status DC Morphine Sulfate (Morphine Sulfate) 1 mg PRN Q10MIN PRN IVP SEVERE PAIN 7-10; Start 09/26/21 at 14:30; Stop 09/26/21 at 18:15; Status DC Ringer's Solution 1,000 ml @ 30 mls/hr Q24H IV Last administered on 09/26/21at 15:18; Start 09/26/21 at 14:30; Stop 09/26/21 at 21:00; Status DC Hydromorphone HCl (Dilaudid) 0.5 mg PRN Q10MIN PRN IVP SEVERE PAIN 7-10, 2nd CHOICE; Start 09/26/21 at 14:30; Stop 09/26/21 at 18:15; Status DC Prochlorperazine Edisylate (Compazine) 5 mg PACU PRN PRN IVP NAUSEA, MRX1; Start 09/26/21 at 14:30; Stop 09/26/21 at 21:00; Status DC Fentanyl Citrate (Fentanyl 2ml Vial) 100 mcg STK-MED ONCE .ROUTE ; Start 09/26/21 at 14:23; Stop 09/26/21 at 14:25; Status DC Fentanyl Citrate (Fentanyl 2ml Vial) 25 mcg PRN Q5MIN PRN IVP MILD PAIN 1-3; Start 09/26/21 at 14:30; Stop 09/27/21 at 14:29; Status UNV Fentanyl Citrate (Fentanyl 2ml Vial) 50 mcg PRN Q5MIN PRN IVP MODERATE PAIN 4- 6; Start 09/26/21 at 14:30; Stop 09/27/21 at 14:29; Status UNV Morphine Sulfate (Morphine Sulfate) 1 mg PRN Q10MIN PRN IVP SEVERE PAIN 7-10; Start 09/26/21 at 14:30; Stop 09/27/21 at 14:29; Status UNV Ringer's Solution 1,000 ml @ 30 mls/hr Q24H IV ; Start 09/26/21 at 14:30; Stop 09/27/21 at 02:29; Status UNV Hydromorphone HCl (Dilaudid) 0.5 mg PRN Q10MIN PRN IVP SEVERE PAIN 7-10, 2nd CHOICE; Start 09/26/21 at 14:30; Stop 09/27/21 at 14:29; Status UNV Prochlorperazine Edisylate (Compazine) 5 mg PACU PRN PRN IVP NAUSEA, MRX1; Start 09/26/21 at 14:30; Stop 09/27/21 at 14:29; Status UNV Dexamethasone Sodium Phosphate (Decadron) 4 mg Q6HRS IVP Last administered on 09/28/21at 05:06; Start 09/26/21 at 18:00; Stop 09/28/21 at 06:00; Status DC Sodium Chloride 1,000 ml @ 100 mls/hr Q10H IV Last administered on 10/05/21at 06:41; Start 09/26/21 at 17:30; Stop 10/05/21 at 13:48; Status DC Cefazolin Sodium (Ancef) 1 gm Q8HRS IVP ; Start 09/27/21 at 06:00; Stop 09/27/21 at 05:47; Status DC Vancomycin HCl 1 gm/Sodium Chloride 250 ml @ 166.667 mls/hr 1X ONCE IV Last administered on 09/27/21at 06:27; Start 09/27/21 at 06:00; Stop 09/27/21 at 07:29; Status DC Gadoterate Meglumine (Clariscan) 19 ml 1X ONCE IVP Last administered on 09/29/21at 10:32; Start 09/29/21 at 08:15; Stop 09/29/21 at 08:17; Status DC Bisacodyl (Dulcolax Supp) 10 mg PRN DAILY PRN HI CONSTIPATION; Start 09/29/21 at 14:15 Lactulose (Lactulose) 20 gm PRN DAILY PRN PO CONSTIPATION, 2nd choice Last administered on 10/01/21at 08:35; Start 09/29/21 at 14:30 Ascorbic Acid (Vitamin C) 500 mg DAILY PO Last administered on 10/16/21at 08:26; Start 10/02/21 at 10:00 Levofloxacin/ Dextrose 100 ml @ 100 mls/hr Q24H IV Last administered on 10/02/21at 12:15; Start 10/02/21 at 12:00; Stop 10/03/21 at 08:57; Status DC Levofloxacin/ Dextrose 50 ml @ 50 mls/hr Q24H IV Last administered on 10/06/21at 15:19; Start 10/03/21 at 12:00; Stop 10/06/21 at 23:00; Status DC Lactobacillus Rhamnosus (Culturelle) 1 cap BID PO Last administered on at 08:25; Start 10/03/21 at 21:00 Lidocaine (Lidoderm) 1 patch QHS TP Last administered on 10/15/21at 21:09; Start 10/04/21 at 22:00 Levofloxacin (Levaquin) 250 mg DAILY06 PO Last administered on 10/11/21at 06:13; Start 10/07/21 at 06:00; Stop 10/11/21 at 12:00; Status DC Insulin Human Lispro (HumaLOG) 0-5 UNITS TIDWMEALS SQ Last administered on 10/14/21at 12:11; Start 10/12/21 at 08:00 Dextrose (Dextrose 50%-Water Syringe) 12.5 gm PRN Q15MIN PRN IV SEE COMMENTS; Start 10/11/21 at 19:00 Dextrose (Iv Dextrose 5%) 250 ml PRN Q15MIN PRN IV SEE COMMENTS; Start 10/11/21 at 19:00 Potassium Chloride (Klor-Con) 40 meq 1X ONCE PO Last administered on 10/15/21at 10:21; Start 10/15/21 at 10:30; Stop 10/15/21 at 10:31; Status DC Magnesium Sulfate 50 ml @ 25 mls/hr 1X ONCE IV Last administered on 10/15/21at 10:20; Start 10/15/21 at 10:30; Stop 10/15/21 at 12:29; Status DC Baclofen (Lioresal) 10 mg Q8HRS PO ; Start 10/16/21 at 22:00 Active Scripts Active Dok (Docusate Sodium) 100 Mg Capsule 100 Mg PO PRN BID PRN 30 Days Tylenol (Acetaminophen) 325 Mg Tablet 650 Mg PO PRN Q4HRS PRN 30 Days Valium (Diazepam) 5 Mg Tablet 5 Mg PO TID Atorvastatin Calcium 10 Mg Tablet 10 Mg PO QHS Reported Midodrine Hcl 2.5 Mg Tablet 2.5 Mg PO PRN 1X PRN Aspirin 81 Mg Tab.chew 81 Mg PO DAILY Baclofen 10 Mg Tablet 10 Mg PO BID Lyrica (Pregabalin) 100 Mg Capsule 100 Mg PO BID 30 Days Polyethylene Glycol 3350 2,500 Gm Powder 17 Gm PO DAILY 30 Days Micatin (Miconazole Nitrate) 14 Gm Cream..g. 1 [place] TP TID Tradjenta (Linagliptin) 5 Mg Tablet 5 Mg PO DAILY Lidocaine PATCH (Lidocaine) 1 Each Adh..patch 1 Each TP DAILY REMOVE AFTER 12 HOURS Levemir (Insulin Detemir) 100 Unit/1 Ml Vial 4 Unit SQ HS Hydroxyzine Hcl 25 Mg Tablet 25 Mg PO PRN Q6HRS PRN Fluticasone Propionate Nasal [place] (Fluticasone Propionate) 16 Gm [place].susp 2 [place] NS DAILY Diclofenac Sodium 100 Gm Gel..gram. 100 Gm TP PRN TID PRN Losartan Potassium 100 Mg Tablet 25 Tab PO DAILY08 Vitals/I & O Vital Sign - Last 24 Hours 10/15/21 10/15/21 10/15/21 10/16/21 16:00 20:00 20:00 00:00 Temp 98.9 98.2 98.7 98.9 98.2 98.7 Pulse 72 74 89 Resp 16 16 16 B/P (MAP) 148/76 (100) 124/63 (83) 125/63 (83) Pulse Ox 94 95 97 O2 Delivery Room Air Room Air Room Air Room Air 10/16/21 10/16/21 10/16/21 10/16/21 04:00 07:34 07:42 08:26 Temp 98.3 98.1 98.3 98.1 Pulse 65 81 81 Resp 16 20 B/P (MAP) 132/65 (87) 107/73 (84) 107/73 Pulse Ox 97 98 O2 Delivery Room Air Room Air Room Air 10/16/21 10/16/21 10/16/21 11:15 11:16 15:15 Temp 98.0 98.2 98.0 98.2 Pulse 78 81 Resp 20 18 B/P (MAP) 135/77 (96) 148/71 (96) Pulse Ox 98 98 O2 Delivery Room Air Room Air Room Air Intake and Output 10/15/21 10/15/21 10/16/21 15:00 23:00 07:00 Intake Total 450 ml 400 ml Output Total 1000 ml 700 ml 850 ml Balance -550 ml -300 ml -850 ml Justifications for Admission Other Justification uncontrolled diabetes 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
[2021-10-16] MEDS: oxyCODONE IR 5 MG TABLET PO PRN (18:05)
[2021-10-16] MEDS: ATORVASTATIN CALCIUM 10 MG TABLET. PO SCH (21:16)
[2021-10-16] MEDS: LIDOCAINE (700MG/PATCH) PATCH. TP SCH (21:26)
[2021-10-16] MEDS: hydrOXYzine 25 MG TABLET PO PRN (23:33)
[2021-10-17 03:05] VITALS: BP 128/50
[2021-10-17] MEDS: INSULIN GLARGINE SYRINGE. SQ SCH ×2 (04:42→21:00)
[2021-10-17] MEDS: BACLOFEN 10 MG TABLET. PO SCH ×4 (06:02→23:16)
[2021-10-17] MEDS: INSULIN LISPRO 300 UNITS/3 ML VIAL. SQ SCH ×3 (08:00→17:00)
[2021-10-17 08:20] VITALS: BP 132/82
[2021-10-17] MEDS: LACTOBACILLUS RHAMNOSUS GG 1 CAPSULE. PO SCH ×2 (08:52→21:00)
[2021-10-17] MEDS: PREGABALIN 50 MG CAPSULE PO SCH ×2 (08:52→21:00)
[2021-10-17] MEDS: ASCORBIC ACID 500 MG TABLET PO SCH (08:52)
[2021-10-17] MEDS: diazePAM 5 MG TABLET PO SCH ×2 (08:53→23:16)
[2021-10-17] MEDS: LINAGLIPTIN 5 MG TABLET PO SCH (08:53)
[2021-10-17] MEDS: LOSARTAN POTASSIUM 25 MG TABLET. PO SCH (08:53)
[2021-10-17] MEDS: POLYETHYLENE GLYCOL 3350 17 GM PACKET. PO SCH (09:00)
[2021-10-17 10:59] VITALS: BP 137/69
[2021-10-17] MEDS ORDERED: BUPIVACAINE MPF 0.25% 10 ML VIAL. IJ ONE (12:00)
[2021-10-17] MEDS ORDERED: TRIAMCINOLONE PRES.FREE 40 MG/ML VIAL. IM ONE (12:15)
--- NOTE | 2021-10-17 12:17 | PDOC ---
PROGRESS NOTES Date of Service DATE: 10/17/21 TIME: 12:13 Subjective Subjective He admits continued muscle spasms in his upper extremities and abdominal muscles. Objective Objective Vital Signs Date Time Temp Pulse Resp B/P (MAP) Pulse Ox O2 Delivery O2 Flow Rate FiO2 10/17/21 10:59 98.9 84 18 137/69 (91) 94 Room Air 98.9 10/15/21 10:32 2.0 Intake and Output 10/17/21 07:00 Intake Total 640 ml Output Total 1250 ml Balance -610 ml Intake Oral 640 ml Output Urine Total 1250 ml Physical Exam Physical Exam He is alert,supine in bed and continues with tenderness to palpation over anterior aspect of right shoulder and painfully limited right shoulder joint ROM and no change with his neurological status. Plan Plan of Care To increase dose of baclofen and he is already of valium 5 mg tid. To proceed with injection to his right shoulder. Comment Review of Relevant I have reviewed the following items michelle (where applicable) has been applied. Labs Laboratory Tests Test 10/15/21 12:27 10/15/21 17:11 10/15/21 21:38 10/16/21 07:15 Glucose (Fingerstick) 128 mg/dL (70-99) 114 mg/dL (70-99) 156 mg/dL (70-99) 133 mg/dL (70-99) Test 10/16/21 12:48 10/16/21 16:51 10/16/21 21:14 10/17/21 07:06 Glucose (Fingerstick) 148 mg/dL (70-99) 156 mg/dL (70-99) 136 mg/dL (70-99) 127 mg/dL (70-99) Test 10/17/21 11:55 Glucose (Fingerstick) 163 mg/dL (70-99) Laboratory Tests Test 10/16/21 12:48 10/16/21 16:51 10/16/21 21:14 10/17/21 07:06 Glucose (Fingerstick) 148 mg/dL (70-99) 156 mg/dL (70-99) 136 mg/dL (70-99) 127 mg/dL (70-99) Test 10/17/21 11:55 Glucose (Fingerstick) 163 mg/dL (70-99) Microbiology 2/13/22 Urine Culture - Final, Complete Escherichia Coli Escherichia Coli#2 Medications Current Medications Fentanyl Citrate (Fentanyl 2ml Vial) 25 mcg PRN Q5MIN PRN IVP MILD PAIN 1-3; Start 09/25/21 at 06:00; Stop 09/25/21 at 20:00; Status DC Fentanyl Citrate (Fentanyl 2ml Vial) 50 mcg PRN Q5MIN PRN IVP MODERATE PAIN 4-6 Last administered on 09/25/21at 13:48; Start 09/25/21 at 06:00; Stop 09/25/21 at 20:00; Status DC Morphine Sulfate (Morphine Sulfate) 1 mg PRN Q10MIN PRN IVP SEVERE PAIN 7-10 Last administered on 09/25/21at 14:21; Start 09/25/21 at 06:00; Stop 09/25/21 at 20:00; Status DC Ringer's Solution 1,000 ml @ 30 mls/hr Q24H IV Last administered on 09/25/21at 12:54; Start 09/25/21 at 06:00; Stop 09/25/21 at 17:59; Status DC Hydromorphone HCl (Dilaudid) 0.5 mg PRN Q10MIN PRN IVP SEVERE PAIN 7-10, 2nd CHOICE Last administered on 09/25/21at 16:53; Start 09/25/21 at 06:00; Stop 09/25/21 at 20:00; Status DC Prochlorperazine Edisylate (Compazine) 5 mg PACU PRN PRN IVP NAUSEA, MRX1; Start 09/25/21 at 06:00; Stop 09/25/21 at 20:00; Status DC Cefazolin Sodium 1 gm/Sodium Chloride 1,000 ml @ 1,000 mls/hr 1X ONCE IRR Last administered on 09/25/21at 10:14; Start 09/25/21 at 06:00; Stop 09/25/21 at 06:59; Status DC Cefazolin Sodium/ Dextrose 50 ml @ 100 mls/hr 1X PREOP PRN IV PRIOR TO PROCEDURE Last administered on 09/25/21at 09:30; Start 09/25/21 at 06:00; Stop 09/25/21 at 13:39; Status DC Insulin Human Lispro (HumaLOG VIAL for OP,RR ONLY) 0-10 units PRN Q1HR PRN SQ PER PROTOCOL Last administered on 09/25/21at 17:01; Start 09/25/21 at 07:00; Stop 09/25/21 at 18:00; Status DC Bupivacaine HCl/ Epinephrine Bitart (Sensorcain-Epi 0.5% Kit) 30 ml STK-MED ONCE INJ Last administered on 09/25/21at 10:14; Start 09/25/21 at 10:14; Stop 09/25/21 at 10:30; Status DC Ketorolac Tromethamine (Toradol Im) 60 mg STK-MED ONCE INJ Last administered on 09/25/21at 10:14; Start 09/25/21 at 10:14; Stop 09/25/21 at 10:30; Status DC Thrombin 20,000 unit STK-MED ONCE TP Last administered on 09/25/21at 10:14; Start 09/25/21 at 10:14; Stop 09/25/21 at 10:30; Status DC Gelatin (Gelfoam Size 100) 1 each STK-MED ONCE TP Last administered on 09/25/21at 10:14; Start 09/25/21 at 10:14; Stop 09/25/21 at 10:30; Status DC Acetaminophen (Tylenol) 650 mg PRN Q4HRS PRN PO TEMP OVER 100.4F OR MILD PAIN Last administered on 10/16/21at 04:15; Start 09/25/21 at 12:30 Aspirin (Aspirin Chewable) 81 mg DAILY PO Last administered on 09/26/21at 08:30; Start 09/26/21 at 09:00; Stop 09/28/21 at 17:19; Status DC Atorvastatin Calcium (Lipitor) 10 mg QHS PO Last administered on 10/16/21at 21:16; Start 09/25/21 at 21:00 Baclofen (Lioresal) 10 mg BID PO Last administered on 10/16/21at 08:26; Start 09/25/21 at 21:00; Stop 10/16/21 at 13:21; Status DC Diazepam (Valium) 5 mg TID PO Last administered on 10/17/21at 08:53; Start 09/25/21 at 14:00 Docusate Sodium (Colace) 100 mg PRN BID PRN PO HARD STOOLS Last administered on 10/15/21at 10:22; Start 09/25/21 at 12:30 Fluticasone Propionate (Flonase) 2 spray DAILY NS Last administered on 10/13/21 08:55; Start 09/26/21 at 09:00 Hydroxyzine HCl (Atarax) 25 mg PRN Q6HRS PRN PO Itching (2ND Choice) Last administered on 10/16/21 23:33; Start 09/25/21 at 12:30 Lidocaine (Lidoderm) 1 patch QHS TP Last administered on 10/03/21 23:31; Start 09/25/21 at 20:00; Stop 10/05/21 at 01:01; Status DC Linagliptin (Tradjenta) 5 mg DAILY PO Last administered on 10/17/21 08:53; Start 09/25/21 at 13:00 Miconazole Nitrate (Monistat-Derm) 1 crispin TID TP Last administered on 10/04/21 20:08; Start 09/25/21 at 21:00; Stop 10/05/21 at 13:23; Status DC Midodrine (Proamatine) 2.5 mg PRN 1X PRN PO hypotension Last administered on 09/27/21 08:56; Start 09/25/21 at 12:30 Oxycodone HCl (Roxicodone) 10 mg PRN Q6HRS PRN PO MODERATE-SEVERE PAIN Last administered on 10/16/21at 18:05; Start 09/25/21 at 12:30 Diclofenac Sodium (Voltaren) 1 crispin PRN TID PRN TP PAIN CONTROL; Start 09/25/21 at 13:15; Stop 09/25/21 at 18:37; Status DC Insulin Glargine (Lantus Syringe) 4 unit QHS SQ Last administered on 10/17/21 04:42; Start 09/25/21 at 21:00 Losartan Potassium (Cozaar) 25 mg DAILY08 PO Last administered on 10/17/21 08:53; Start 09/26/21 at 08:00 Polyethylene Glycol (miraLAX PACKET) 17 gm DAILY PO Last administered on 10/13/21 08:53; Start 09/25/21 at 14:00 Pregabalin (Lyrica) 100 mg BID PO Last administered on 3/1/22at 08:52; Start 09/25/21 at 21:00 Acetaminophen (Tylenol) 650 mg PRN Q6HRS PRN PO MILD PAIN / TEMP > 100.3'F; Start 09/25/21 at 12:30; Status Cancel Al Hydroxide/Mg Hydroxide (Mylanta Plus Xs) 30 ml PRN Q3HRS PRN PO HEARTBURN / GAS; Start 09/25/21 at 12:30 Calcium Carbonate/ Glycine (Tums) 500 mg PRN Q3HRS PRN PO INDIGESTION; Start 09/25/21 at 12:30 Diphenhydramine HCl (Benadryl) 25 mg PRN Q6HRS PRN PO ITCHING (1ST CHOICE); Start 09/25/21 at 12:30 Naloxone HCl (Narcan) 0.1 mg PRN Q2MIN PRN IV SEE COMMENTS; Start 09/25/21 at 12:30 Sodium Chloride (Normal Saline Flush) 3 ml QSHIFT PRN IV AFTER MEDS AND BLOOD DRAWS; Start 09/25/21 at 12:30 Potassium Chloride/Sodium Chloride 1,000 ml @ 75 mls/hr [id number] IV Last administered on 09/26/21at 07:00; Start 09/25/21 at 12:30; Stop 09/26/21 at 17:33; Status DC Magnesium Hydroxide (Milk Of Magnesia) 2,400 mg PRN Q12HR PRN PO CONSTIPATION; Start 09/25/21 at 12:30 Cefazolin Sodium (Ancef) 1 gm Q8H IVP Last administered on 09/26/21at 04:14; Start 09/25/21 at 18:00; Stop 09/26/21 at 10:01; Status DC Fentanyl Citrate (Fentanyl 2ml Vial) 50 mcg PRN Q2HR PRN IVP MODERATE TO SEVERE PAIN Last administered on 10/05/21at 22:46; Start 09/25/21 at 12:30 Dextrose (Dextrose 50%-Water Syringe) 12.5 gm PRN Q15MIN PRN IV SEE COMMENTS; Start 09/25/21 at 12:30; Status Cancel Dextrose (Iv Dextrose 5%) 250 ml PRN Q15MIN PRN IV SEE COMMENTS; Start 09/25/21 at 12:30; Status Cancel Gelatin (Gelfoam Size 100) 1 each STK-MED ONCE .ROUTE ; Start 09/25/21 at 06:37; Stop 09/25/21 at 14:55; Status DC Bupivacaine HCl/ Epinephrine Bitart (Sensorcain-Epi 0.5% Kit) 30 ml STK-MED ONCE .ROUTE ; Start 09/25/21 at 06:37; Stop 09/25/21 at 14:55; Status DC Ketorolac Tromethamine (Toradol Im) 60 mg STK-MED ONCE .ROUTE ; Start 09/25/21 at 06:37; Stop 09/25/21 at 14:55; Status DC Thrombin 20,000 unit STK-MED ONCE TP ; Start 09/25/21 at 06:38; Stop 09/25/21 at 14:55; Status DC Propofol (Diprivan) 200 mg STK-MED ONCE IV ; Start 09/25/21 at 05:54; Stop 09/25/21 at 14:57; Status DC Lidocaine HCl (Lidocaine Pf 2% Vial) 5 ml STK-MED ONCE .ROUTE ; Start 09/25/21 at 05:54; Stop 09/25/21 at 14:57; Status DC Ondansetron HCl (Zofran) 4 mg STK-MED ONCE .ROUTE ; Start 09/25/21 at 05:54; Stop 09/25/21 at 14:57; Status DC Phenylephrine HCl (Ramone-Synephrine Inj) 10 mg STK-MED ONCE .ROUTE ; Start 09/25/21 at 05:54; Stop 09/25/21 at 14:57; Status DC Propofol 50 ml @ As Directed STK-MED ONCE IV ; Start 09/25/21 at 05:54; Stop 09/25/21 at 14:57; Status DC Dexamethasone Sodium Phosphate (Decadron) 4 mg STK-MED ONCE .ROUTE ; Start 09/25/21 at 05:54; Stop 09/25/21 at 14:57; Status DC Fentanyl Citrate (Fentanyl 2ml Vial) 100 mcg STK-MED ONCE .ROUTE ; Start 09/25/21 at 05:54; Stop 09/25/21 at 14:57; Status DC Succinylcholine Chloride (Anectine) 200 mg STK-MED ONCE .ROUTE ; Start 09/25/21 at 05:54; Stop 09/25/21 at 14:57; Status DC Remifentanil HCl (Ultiva) 1 mg STK-MED ONCE IV ; Start 09/25/21 at 05:54; Stop 09/25/21 at 14:57; Status DC Glycopyrrolate (Robinul) 1 mg STK-MED ONCE .ROUTE ; Start 09/25/21 at 07:11; Stop 09/25/21 at 15:01; Status DC Propofol 50 ml @ As Directed STK-MED ONCE IV ; Start 09/25/21 at 08:07; Stop 09/25/21 at 15:02; Status DC Ketamine HCl (Ketamine) 50 mg STK-MED ONCE .ROUTE ; Start 09/25/21 at 08:15; Stop 09/25/21 at 15:02; Status DC Hydromorphone HCl (Dilaudid) 2 mg STK-MED ONCE .ROUTE ; Start 09/25/21 at 10:44; Stop 09/25/21 at 15:03; Status DC Fentanyl Citrate (Fentanyl 2ml Vial) 100 mcg STK-MED ONCE .ROUTE ; Start 09/25/21 at 13:26; Stop 09/25/21 at 15:04; Status DC Morphine Sulfate (Morphine Sulfate) 2 mg STK-MED ONCE .ROUTE ; Start 09/25/21 at 14:04; Stop 09/25/21 at 15:05; Status DC Hydromorphone HCl (Dilaudid) 2 mg STK-MED ONCE .ROUTE ; Start 09/25/21 at 14:54; Stop 09/25/21 at 15:06; Status DC Menthol/Methyl Salicylate (Bengay Greaseless Cream) 1 crispin PRN Q30MIN PRN TP MUSCLE PAIN Last administered on 10/02/21at 21:03; Start 09/25/21 at 18:45 Mupirocin (Bactroban) 1 crispin BID NS Last administered on 10/12/21at 21:09; Start 09/26/21 at 09:00; Stop 10/13/21 at 07:56; Status DC Dexamethasone Sodium Phosphate (Decadron) 10 mg 1X ONCE IVP Last administered on 09/26/21at 07:31; Start 09/26/21 at 07:30; Stop 09/26/21 at 07:31; Status DC Cefazolin Sodium 1 gm/Sodium Chloride 1,000 ml @ 1,000 mls/hr 1X ONCE IRR Last administered on 09/26/21at 11:52; Start 09/26/21 at 10:30; Stop 09/26/21 at 11:29; Status DC Cefazolin Sodium (Ancef) 1 gm STK-MED ONCE IVP ; Start 09/26/21 at 10:05; Stop 09/26/21 at 10:06; Status DC Lidocaine HCl (Lidocaine Pf 2% Vial) 5 ml STK-MED ONCE .ROUTE ; Start 09/26/21 at 10:18; Stop 09/26/21 at 10:18; Status DC Ondansetron HCl (Zofran) 4 mg STK-MED ONCE .ROUTE ; Start 09/26/21 at 10:18; Stop 09/26/21 at 10:18; Status DC Propofol (Diprivan) 200 mg STK-MED ONCE IV ; Start 09/26/21 at 10:18; Stop 09/26/21 at 10:19; Status DC Dexamethasone Sodium Phosphate (Decadron) 4 mg STK-MED ONCE .ROUTE ; Start 09/26/21 at 10:18; Stop 09/26/21 at 10:19; Status DC Sevoflurane (Ultane) 30 ml STK-MED ONCE IH ; Start 09/26/21 at 10:18; Stop 09/26/21 at 10:19; Status DC Fentanyl Citrate (Fentanyl 2ml Vial) 100 mcg STK-MED ONCE .ROUTE ; Start 09/26/21 at 10:19; Stop 09/26/21 at 10:19; Status DC Rocuronium Mcalister (Zemuron) 50 mg STK-MED ONCE .ROUTE ; Start 09/26/21 at 10:19; Stop 09/26/21 at 10:19; Status DC Insulin Human Lispro (HumaLOG VIAL for OP,RR ONLY) 0-10 units PRN Q1HR PRN SQ PER PROTOCOL Last administered on 09/26/21at 15:11; Start 09/26/21 at 10:30; Stop 09/26/21 at 18:00; Status DC Sugammadex Sodium (Bridion) 200 mg 1X ONCE IVP Last administered on 09/26/21at 10:30; Start 09/26/21 at 10:30; Stop 09/26/21 at 10:31; Status DC Gelatin (Gelfoam Size 100) 1 each STK-MED ONCE .ROUTE Last administered on 09/26/21at 11:52; Start 09/26/21 at 10:30; Stop 09/26/21 at 10:30; Status DC Bupivacaine HCl/ Epinephrine Bitart (Sensorcain-Epi 0.5% Kit) 30 ml STK-MED ONCE .ROUTE ; Start 09/26/21 at 10:30; Stop 09/26/21 at 10:30; Status DC Ketorolac Tromethamine (Toradol Im) 60 mg STK-MED ONCE .ROUTE ; Start 09/26/21 at 10:30; Stop 09/26/21 at 10:30; Status DC Thrombin 20,000 unit STK-MED ONCE TP Last administered on 09/26/21at 11:52; Start 09/26/21 at 10:30; Stop 09/26/21 at 10:31; Status DC Cefazolin Sodium/ Dextrose 50 ml @ As Directed STK-MED ONCE IV ; Start 09/26/21 at 10:32; Stop 09/26/21 at 10:32; Status DC Vancomycin HCl 1 gm/Sodium Chloride 250 ml @ 250 mls/hr PREOP PRN PRN IV PRIOR TO PROCEDURE; Start 09/26/21 at 10:45; Stop 09/26/21 at 14:00; Status DC Cefazolin Sodium/ Dextrose 50 ml @ 100 mls/hr 1X ONCE IV Last administered on 09/26/21at 11:00; Start 09/26/21 at 11:00; Stop 09/26/21 at 11:29; Status DC Dexamethasone Sodium Phosphate (Decadron) 4 mg STK-MED ONCE .ROUTE ; Start 09/26/21 at 11:04; Stop 09/26/21 at 11:04; Status DC Glycopyrrolate (Robinul) 1 mg STK-MED ONCE .ROUTE ; Start 09/26/21 at 11:04; Stop 09/26/21 at 11:04; Status DC Hydromorphone HCl (Dilaudid) 2 mg STK-MED ONCE .ROUTE ; Start 09/26/21 at 11:56; Stop 09/26/21 at 11:56; Status DC Fentanyl Citrate (Fentanyl 2ml Vial) 25 mcg PRN Q5MIN PRN IVP MILD PAIN 1-3; Start 09/26/21 at 14:30; Stop 09/26/21 at 18:15; Status DC Fentanyl Citrate (Fentanyl 2ml Vial) 50 mcg PRN Q5MIN PRN IVP MODERATE PAIN 4- 6; Start 09/26/21 at 14:30; Stop 09/26/21 at 18:15; Status DC Morphine Sulfate (Morphine Sulfate) 1 mg PRN Q10MIN PRN IVP SEVERE PAIN 7-10; Start 09/26/21 at 14:30; Stop 09/26/21 at 18:15; Status DC Ringer's Solution 1,000 ml @ 30 mls/hr Q24H IV Last administered on 09/26/21at 15:18; Start 09/26/21 at 14:30; Stop 09/26/21 at 21:00; Status DC Hydromorphone HCl (Dilaudid) 0.5 mg PRN Q10MIN PRN IVP SEVERE PAIN 7-10, 2nd CHOICE; Start 09/26/21 at 14:30; Stop 09/26/21 at 18:15; Status DC Prochlorperazine Edisylate (Compazine) 5 mg PACU PRN PRN IVP NAUSEA, MRX1; Start 09/26/21 at 14:30; Stop 09/26/21 at 21:00; Status DC Fentanyl Citrate (Fentanyl 2ml Vial) 100 mcg STK-MED ONCE .ROUTE ; Start 09/26/21 at 14:23; Stop 09/26/21 at 14:25; Status DC Fentanyl Citrate (Fentanyl 2ml Vial) 25 mcg PRN Q5MIN PRN IVP MILD PAIN 1-3; Start 09/26/21 at 14:30; Stop 09/27/21 at 14:29; Status UNV Fentanyl Citrate (Fentanyl 2ml Vial) 50 mcg PRN Q5MIN PRN IVP MODERATE PAIN 4- 6; Start 09/26/21 at 14:30; Stop 09/27/21 at 14:29; Status UNV Morphine Sulfate (Morphine Sulfate) 1 mg PRN Q10MIN PRN IVP SEVERE PAIN 7-10; Start 09/26/21 at 14:30; Stop 09/27/21 at 14:29; Status UNV Ringer's Solution 1,000 ml @ 30 mls/hr Q24H IV ; Start 09/26/21 at 14:30; Stop 09/27/21 at 02:29; Status UNV Hydromorphone HCl (Dilaudid) 0.5 mg PRN Q10MIN PRN IVP SEVERE PAIN 7-10, 2nd CHOICE; Start 09/26/21 at 14:30; Stop 09/27/21 at 14:29; Status UNV Prochlorperazine Edisylate (Compazine) 5 mg PACU PRN PRN IVP NAUSEA, MRX1; Sta rt 09/26/21 at 14:30; Stop 09/27/21 at 14:29; Status UNV Dexamethasone Sodium Phosphate (Decadron) 4 mg Q6HRS IVP Last administered on 09/28/21at 05:06; Start 09/26/21 at 18:00; Stop 09/28/21 at 06:00; Status DC Sodium Chloride 1,000 ml @ 100 mls/hr Q10H IV Last administered on 10/05/21at 06:41; Start 09/26/21 at 17:30; Stop 10/05/21 at 13:48; Status DC Cefazolin Sodium (Ancef) 1 gm Q8HRS IVP ; Start 09/27/21 at 06:00; Stop 09/27/21 at 05:47; Status DC Vancomycin HCl 1 gm/Sodium Chloride 250 ml @ 166.667 mls/hr 1X ONCE IV Last administered on 09/27/21at 06:27; Start 09/27/21 at 06:00; Stop 09/27/21 at 07:29; Status DC Gadoterate Meglumine (Clariscan) 19 ml 1X ONCE IVP Last administered on 09/29/21at 10:32; Start 09/29/21 at 08:15; Stop 09/29/21 at 08:17; Status DC Bisacodyl (Dulcolax Supp) 10 mg PRN DAILY PRN MS CONSTIPATION; Start 09/29/21 at 14:15 Lactulose (Lactulose) 20 gm PRN DAILY PRN PO CONSTIPATION, 2nd choice Last administered on 10/01/21at 08:35; Start 09/29/21 at 14:30 Ascorbic Acid (Vitamin C) 500 mg DAILY PO Last administered on 10/17/21at 08:52; Start 10/02/21 at 10:00 Levofloxacin/ Dextrose 100 ml @ 100 mls/hr Q24H IV Last administered on 10/02/21at 12:15; Start 10/02/21 at 12:00; Stop 10/03/21 at 08:57; Status DC Levofloxacin/ Dextrose 50 ml @ 50 mls/hr Q24H IV Last administered on 10/06/21at 15:19; Start 10/03/21 at 12:00; Stop 10/06/21 at 23:00; Status DC Lactobacillus Rhamnosus (Culturelle) 1 cap BID PO Last administered on 10/17/21at 08:52; Start 10/03/21 at 21:00 Lidocaine (Lidoderm) 1 patch QHS TP Last administered on 10/16/21at 21:26; Start 10/04/21 at 22:00 Levofloxacin (Levaquin) 250 mg DAILY06 PO Last administered on 10/11/21at 06:13; Start 10/07/21 at 06:00; Stop 10/11/21 at 12:00; Status DC Insulin Human Lispro (HumaLOG) 0-5 UNITS TIDWMEALS SQ Last administered on 10/16/21at 18:29; Start 10/12/21 at 08:00 Dextrose (Dextrose 50%-Water Syringe) 12.5 gm PRN Q15MIN PRN IV SEE COMMENTS; Start 10/11/21 at 19:00 Dextrose (Iv Dextrose 5%) 250 ml PRN Q15MIN PRN IV SEE COMMENTS; Start 10/11/21 at 19:00 Potassium Chloride (Klor-Con) 40 meq 1X ONCE PO Last administered on 10/15/21at 10:21; Start 10/15/21 at 10:30; Stop 10/15/21 at 10:31; Status DC Magnesium Sulfate 50 ml @ 25 mls/hr 1X ONCE IV Last administered on 10/15/21at 10:20; Start 10/15/21 at 10:30; Stop 10/15/21 at 12:29; Status DC Baclofen (Lioresal) 10 mg Q8HRS PO Last administered on 10/17/21at 06:02; Start 10/16/21 at 22:00; Stop 10/17/21 at 11:58; Status DC Baclofen (Lioresal) 10 mg Q6HRS PO ; Start 10/17/21 at 12:00 Triamcinolone Acetonide (Kenalog-40) 40 mg 1X ONCE IM ; Start 10/17/21 at 12:15; Stop 10/17/21 at 12:16 Bupivacaine HCl (Sensorcaine-Mpf 0.25%) 10 ml 1X ONCE IJ ; Start 10/17/21 at 12:00; Stop 10/17/21 at 12:01; Status DC Active Scripts Active Dok (Docusate Sodium) 100 Mg Capsule 100 Mg PO PRN BID PRN 30 Days Tylenol (Acetaminophen) 325 Mg Tablet 650 Mg PO PRN Q4HRS PRN 30 Days Valium (Diazepam) 5 Mg Tablet 5 Mg PO TID Atorvastatin Calcium 10 Mg Tablet 10 Mg PO QHS Reported Midodrine Hcl 2.5 Mg Tablet 2.5 Mg PO PRN 1X PRN Aspirin 81 Mg Tab.chew 81 Mg PO DAILY Baclofen 10 Mg Tablet 10 Mg PO BID Lyrica (Pregabalin) 100 Mg Capsule 100 Mg PO BID 30 Days Polyethylene Glycol 3350 2,500 Gm Powder 17 Gm PO DAILY 30 Days Micatin (Miconazole Nitrate) 14 Gm Cream..g. 1 [place] TP TID Tradjenta (Linagliptin) 5 Mg Tablet 5 Mg PO DAILY Lidocaine PATCH (Lidocaine) 1 Each Adh..patch 1 Each TP DAILY REMOVE AFTER 12 HOURS Levemir (Insulin Detemir) 100 Unit/1 Ml Vial 4 Unit SQ HS Hydroxyzine Hcl 25 Mg Tablet 25 Mg PO PRN Q6HRS PRN Fluticasone Propionate Nasal [place] (Fluticasone Propionate) 16 Gm [place].susp 2 [place] NS DAILY Diclofenac Sodium 100 Gm Gel..gram. 100 Gm TP PRN TID PRN Losartan Potassium 100 Mg Tablet 25 Tab PO DAILY08 Vitals/I & O Vital Sign - Last 24 Hours 10/16/21 10/16/21 10/16/21 10/16/21 15:15 17:45 18:05 20:00 Temp 98.2 98.0 98.2 98.0 Pulse 81 78 Resp 18 20 20 B/P (MAP) 148/71 (96) 147/78 (101) Pulse Ox 98 95 O2 Delivery Room Air Room Air Room Air 10/16/21 10/17/21 10/17/21 10/17/21 22:54 03:05 08:00 08:20 Temp 98.2 98.7 98.1 98.2 98.7 98.1 Pulse 73 62 74 Resp 20 20 20 B/P (MAP) 134/77 (96) 128/50 (76) 132/82 (99) Pulse Ox 95 96 95 O2 Delivery Room Air Room Air Room Air Room Air 10/17/21 10/17/21 08:53 10:59 Temp 98.9 98.9 Pulse 74 84 Resp 18 B/P (MAP) 132/82 137/69 (91) Pulse Ox 94 O2 Delivery Room Air Intake and Output 10/16/21 10/16/21 10/17/21 15:00 23:00 07:00 Intake Total 440 ml 200 ml Output Total 900 ml 350 ml Balance -460 ml -150 ml Justifications for Admission Other Justification uncontrolled diabetes TERRY JURADO MD Oct 17, 2021 12:17
[2021-10-17] MEDS: FLUTICASONE 50MCG/NASAL SPRAY 16GM BOTTLE. NS SCH (12:58)
[2021-10-17] MEDS: oxyCODONE IR 5 MG TABLET PO PRN ×2 (13:14→17:33)
--- NOTE | 2021-10-17 13:38 | PDOC ---
[employer] PROGRESS NOTE Date of Service DOS: DATE: 10/17/21 TIME: 13:37 Chief Complaint Chief Complaint Cervical spinal cord injury - Concern for C5 cord edema, cord compression, a right lateral C5 fracture, and concern for numerous ligamentous injuries. 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 S/p decompression 07/26/2021 and repeat surgeries 09/25 and 09/26 Diabetes - sliding scale plus basal HTN - prn hydralazine HLD - statin when taking PO Cervical laminectomy as per above, diabetes, hypertension, hyperlipidemia, arthritis, GERD, left knee arthroplasty and TIA S/p; IVC filter FEN - ADAT PPX - SCDs FULL CODE Dispo - Inpatient History of Present Illness History of Present Illness 10/17/2021 No acute events overnight. Patient seen examined bedside. Still complaining of muscle spasms. Baclofen has been increased. He is already on Valium and Lyrica. Considering neurology consult for evaluation. Pending right shoulder x-ray. Patient's chart, labs, images were reviewed and discussed with RN 10/16: Seen in ICU notes spasming started again last night this happened about 6 times even when he tries to reach up and scratch his eyelid. Having some more pain in his right biceps and left Achilles area. 10/15: Seen bedside in ICU getting bed bath. Says his spasming is improved today having a little bit of shortness of breath but no cough. No chest pain. 10/14: Seen bedside in ICU. Still with spasming upon awakening in his hands and feet still with some weakness in his left foot. Poor appetite. 10/13: Patient seen and examined. Discussed with neurosurgery nurse practitioner Roberta 10/12: Patient seen and examined 10/11: Patient seen and examined. His discharge was held again as he was not accepted at [facility] 10/09: His sister is here as well discussed with her. Plan is to get the patient to [facility] long-term if they accept him 10/08: Patient seen and examined. He is moving his toes more each day 10/07: Patient seen and examined in the ICU (he is actually in overfull patient). He is working with his nurse to try to use his nurse button and remote control. Started to move his toes a little bit 10/06/2021 Patient seen and examined in the ICU I discussed the case with his sister again I also discussed the case with case management [facility] rehab may consider taking him after all now that he is improved over the past 3 days 10/05/2021 Patient seen and examined in the ICU His nurses are starting to get ready to clean him up His sister is present Discussed with RN Discussed with case management [facility] transfer if it can be arranged 10/04/2021 Patient seen and examined again in the ICU He remains very weak cannot move his legs was able to move his hands His sister is present I called case management they are checking into possibly if he could go to rehab [facility] Chart reviewed 10/03/2021 Patient seen and examined in the ICU Chart reviewed Discussed with RN Called case management We are hoping to get the patient transferred to [facility] if possible (they are evaluating his admission criteria to rehab) 10/02/2021 Patient seen and examined in the ICU He is still unable to move his legs He is able to move his hands and arms slightly but is very weak at bedside Chart reviewed Discussed with RN I called case management to see [facility] 10/01 Patient evaluated examined at bedside. Continues to improve. Continue rehab. Plan discussed with bedside RN. 09/30 Patient evaluated examined at bedside. Clinically about the same from yesterday. Continue rehab modalities. Labs stable. Plan discussed with mak colvin RN. 09/29 Patient evaluated at bedside. Underwent MRI this morning. Symptoms very similar to yesterday but he feels like he is regaining some function. Pain controlled. PT OT. Hemoglovin stable. 09/28 Evaluate examined at bedside. Resting in bed had no complaints to me. Said pain is quite improved. Did okay with transfusion yesterday. Continue current treatments. PT/OT. Discussed with bedside RNStar Diane 09/27 Patient evaluated examined at bedside. Was resting in bed easily awoken able to answer some questions. Some movement in his upper extremities but very limited in lower. Transfuse 1 unit today. Plan discussed with RN. Mr Terrell is a 60-year-old male w/ PMHx prediabetes, HLD, HTN and recent fall in July 2021 with cervical myelopathy and s/p cervical decompression with ACDF C5-6 07/26/2021 On 09/25/21 underwent cervical laminectomy, C3, C4, C5, C6, partial C7 with lateral mass fusion C3 through C7, Posterior nstrumentation C3-C7 on the left and posterior instrumentation C-C6 on the right. On 09/26/21 returned to OR for cervical hematoma evacuation. Vitals/I&O Vitals/I&O: Vital Signs Date Time Temp Pulse Resp B/P (MAP) Pulse Ox O2 Delivery O2 Flow Rate FiO2 10/17/21 10:59 98.9 84 18 137/69 (91) 94 Room Air 98.9 I & O 10/16/21 10/16/21 10/17/21 15:00 23:00 07:00 Intake Total 440 ml 200 ml Output Total 900 ml 350 ml Balance -460 ml -150 ml Physical Exam General: Alert, Oriented X3, Cooperative, No acute distress Heart: Regular rate Lungs: Clear Abdomen: Normal bowel sounds, Soft, No tenderness Extremities: No edema, Normal pulses Skin: Other (incision healing well) Labs Labs: Laboratory Tests Test 10/16/21 16:51 10/16/21 21:14 10/17/21 07:06 10/17/21 11:55 Glucose (Fingerstick) 156 mg/dL (70-99) 136 mg/dL (70-99) 127 mg/dL (70-99) 163 mg/dL (70-99) Comment Review of Relevant I have reviewed the following items michelle (where applicable) has been applied. Medications: Current Medications Medications (Trade) Dose Ordered Sig/Vernon Route PRN Reason Start Time Stop Time Status Last Admin Dose Admin Baclofen (Lioresal) 10 mg Q8HRS PO 10/16/21 22:00 10/17/21 11:58 DC 10/17/21 06:02 Baclofen (Lioresal) 10 mg Q6HRS PO 10/17/21 12:00 10/17/21 12:56 Justifications for Admission Other Justification uncontrolled diabetes SHANICE TAYLOR MD Oct 17, 2021 13:38
[2021-10-17 14:37] LABS: BASO # 0.1 x10^3/uL (0.0-0.2); BASO % 1 % (0-3); EOS # 0.2 x10^3/uL (0.0-0.7); EOS % 2 % (0-3); HEMATOCRIT 31.3 % (39.0-53.0); LYMPH # 1.6 x10^3/uL (1.0-4.8); LYMPH % 15 % (24-48); MEAN CORPUSCULAR HEMOGLOBIN 28 pg (25-35); MEAN CORPUSCULAR HGB CONC 32 g/dL (31-37); MEAN CORPUSCULAR VOLUME 86 fL (79-100); MONO # 0.9 x10^3/uL (0.0-1.1); MONO % 8 % (0-9); NEUT # 7.8 x10^3/uL (1.8-7.7); NEUT % 74 % (31-73); PLATELET COUNT 279 x10^3/uL (140-400); RED BLOOD COUNT 3.63 x10^6/uL (4.30-5.70); RED CELL DISTRIBUTION WIDTH 15.3 % (11.5-14.5); WHITE BLOOD COUNT 10.6 x10^3/uL (4.0-11.0)
[2021-10-17 14:47] LABS: CALCIUM 8.2 mg/dL (8.5-10.1); CREATININE 0.8 mg/dL (0.7-1.3); GFR 118.9; MAGNESIUM 1.6 mg/dL (1.8-2.4); POTASSIUM 3.6 mmol/L (3.5-5.1)
[2021-10-17 14:56] VITALS: BP 137/73
--- NOTE | 2021-10-17 16:07 | RAD ---
Exam: XR SHOULDER_RIGHT 2+ VIEWS History: Shoulder pain. Comparison: None. Findings: Osseous mineralization is normal. No acute fracture or dislocaton. Degenerative changes of the right acromioclavicular joint. Partially visualized cervical fusion. The right chest is unremarkable. Impression: 1. Degenerative changes of the right shoulder without acute osseous abnormality. Electronically signed by: Joon Hamm MD (10/17/2021 4:05 PM) [id number]
--- NOTE | 2021-10-17 16:36 | PDOC2 ---
NEUROLOGY CONSULT Date of Service DOS: DATE: 10/17/21 TIME: 16:18 Reason for Consult Reason for Consult: Muscle spasms Referring Physician Referring Physician: Dr. Loo Source Source: Chart review, Patient History of Present Illness History of Present Illness The patient is a 60-year-old right-handed male whom I last saw during his [facility] stay. He fainted the day before admission and had a hematoma on the back of his scalp. There was hyperextension of the neck. He was complaining of left-sided head and neck pain. Then his hands became numb and there was generalized weakness. He had a fracture of the right lateral aspect of C5 and high signal in the cervical cord at C5-6. There was also multiple areas of central and neuroforaminal stenosis throughout the cervical spine. He underwent ACDF at C4-5 and C5-6, then went to [facility] rehab. I see that he had a follow-up cervical MRI on 09/01/21 showing improved abnormal spinal cord signal, with myelomalacia at C5-6. Dr. Collier brought him back on 09/25 for further surgery to decompress the spinal cord and he underwent cervical laminectomy, C3, C4, C5, C6, partial C7 with lateral mass fusion C3 through C7, Posterior instrumentation C3-C7 on the left and posterior instrumentation C-C6 on the right. He then developed an epidural hematoma and required further decompression. I am asked to see him because he is having muscle spasms. Dr. Pineda has been following him and did increase the patient's dose of baclofen. Note that the patient is also on pregabalin and Valium. Patient says that with this adjustment he is feeling quite a bit better today Past Medical History Cardiovascular: HTN, Hyperlipidemia Pulmonary: Pneumonia CENTRAL NERVOUS SYSTEM: Periperal neuropathy, TIA GI: GERD Musculoskeletal: Osteoarthritis Endocrine: Diabetes Past Surgical History Past Surgical History: Other (current surgery, Left knee arthroplasty, ACDF at C4-C5, C5-C6 in 07/2021. IVC filter placement 07/2021.) Family History Family History: Hypertension Social History Social History , occasional alcohol, occasional tobacco Current Medications Current Medications Current Medications Fentanyl Citrate (Fentanyl 2ml Vial) 25 mcg PRN Q5MIN PRN IVP MILD PAIN 1-3; Start 09/25/21 at 06:00; Stop 09/25/21 at 20:00; Status DC Fentanyl Citrate (Fentanyl 2ml Vial) 50 mcg PRN Q5MIN PRN IVP MODERATE PAIN 4-6 Last administered on 09/25/21at 13:48; Start 09/25/21 at 06:00; Stop 09/25/21 at 20:00; Status DC Morphine Sulfate (Morphine Sulfate) 1 mg PRN Q10MIN PRN IVP SEVERE PAIN 7-10 Last administered on 09/25/21at 14:21; Start 09/25/21 at 06:00; Stop 09/25/21 at 20:00; Status DC Ringer's Solution 1,000 ml @ 30 mls/hr Q24H IV Last administered on 09/25/21at 12:54; Start 09/25/21 at 06:00; Stop 09/25/21 at 17:59; Status DC Hydromorphone HCl (Dilaudid) 0.5 mg PRN Q10MIN PRN IVP SEVERE PAIN 7-10, 2nd CHOICE Last administered on 09/25/21at 16:53; Start 09/25/21 at 06:00; Stop 09/25/21 at 20:00; Status DC Prochlorperazine Edisylate (Compazine) 5 mg PACU PRN PRN IVP NAUSEA, MRX1; Start 09/25/21 at 06:00; Stop 09/25/21 at 20:00; Status DC Cefazolin Sodium 1 gm/Sodium Chloride 1,000 ml @ 1,000 mls/hr 1X ONCE IRR Last administered on 09/25/21at 10:14; Start 09/25/21 at 06:00; Stop 09/25/21 at 06:59; Status DC Cefazolin Sodium/ Dextrose 50 ml @ 100 mls/hr 1X PREOP PRN IV PRIOR TO PROCEDURE Last administered on 09/25/21at 09:30; Start 09/25/21 at 06:00; Stop 09/25/21 at 13:39; Status DC Insulin Human Lispro (HumaLOG VIAL for OP,RR ONLY) 0-10 units PRN Q1HR PRN SQ PER PROTOCOL Last administered on 09/25/21at 17:01; Start 09/25/21 at 07:00; Stop 09/25/21 at 18:00; Status DC Bupivacaine HCl/ Epinephrine Bitart (Sensorcain-Epi 0.5% Kit) 30 ml STK-MED ONCE INJ Last administered on 09/25/21 10:14; Start 09/25/21 at 10:14; Stop 09/25/21 at 10:30; Status DC Ketorolac Tromethamine (Toradol Im) 60 mg STK-MED ONCE INJ Last administered on 09/25/21 10:14; Start 09/25/21 at 10:14; Stop 09/25/21 at 10:30; Status DC Thrombin 20,000 unit STK-MED ONCE TP Last administered on 09/25/21at 10:14; Start 09/25/21 at 10:14; Stop 09/25/21 at 10:30; Status DC Gelatin (Gelfoam Size 100) 1 each STK-MED ONCE TP Last administered on 09/25/21 10:14; Start 09/25/21 at 10:14; Stop 09/25/21 at 10:30; Status DC Acetaminophen (Tylenol) 650 mg PRN Q4HRS PRN PO TEMP OVER 100.4F OR MILD PAIN Last administered on 10/16/21at 04:15; Start 09/25/21 at 12:30 Aspirin (Aspirin Chewable) 81 mg DAILY PO Last administered on 09/26/21at 08:30; Start 09/26/21 at 09:00; Stop 09/28/21 at 17:19; Status DC Atorvastatin Calcium (Lipitor) 10 mg QHS PO Last administered on 10/16/21 21:16; Start 09/25/21 at 21:00 Baclofen (Lioresal) 10 mg BID PO Last administered on 10/16/21at 08:26; Start 09/25/21 at 21:00; Stop 10/16/21 at 13:21; Status DC Diazepam (Valium) 5 mg TID PO Last administered on 10/17/21 08:53; Start 09/25/21 at 14:00 Docusate Sodium (Colace) 100 mg PRN BID PRN PO HARD STOOLS Last administered on 10/15/21at 10:22; Start 09/25/21 at 12:30 Fluticasone Propionate (Flonase) 2 spray DAILY NS Last administered on 10/17/21 12:58; Start 09/26/21 at 09:00 Hydroxyzine HCl (Atarax) 25 mg PRN Q6HRS PRN PO Itching (2ND Choice) Last administered on 10/16/21 23:33; Start 09/25/21 at 12:30 Lidocaine (Lidoderm) 1 patch QHS TP Last administered on 10/03/21at 23:31; Start 09/25/21 at 20:00; Stop 10/05/21 at 01:01; Status DC Linagliptin (Tradjenta) 5 mg DAILY PO Last administered on 10/17/21at 08:53; Start 09/25/21 at 13:00 Miconazole Nitrate (Monistat-Derm) 1 crispin TID TP Last administered on 10/04/21at 20:08; Start 09/25/21 at 21:00; Stop 10/05/21 at 13:23; Status DC Midodrine (Proamatine) 2.5 mg PRN 1X PRN PO hypotension Last administered on 09/27/21at 08:56; Start 09/25/21 at 12:30 Oxycodone HCl (Roxicodone) 10 mg PRN Q6HRS PRN PO MODERATE-SEVERE PAIN Last administered on 10/17/21at 13:14; Start 09/25/21 at 12:30 Diclofenac Sodium (Voltaren) 1 crispin PRN TID PRN TP PAIN CONTROL; Start 09/25/21 at 13:15; Stop 09/25/21 at 18:37; Status DC Insulin Glargine (Lantus Syringe) 4 unit QHS SQ Last administered on 10/17/21at 04:42; Start 09/25/21 at 21:00 Losartan Potassium (Cozaar) 25 mg DAILY08 PO Last administered on 10/17/21at 08:53; Start 09/26/21 at 08:00 Polyethylene Glycol (miraLAX PACKET) 17 gm DAILY PO Last administered on 10/13/21at 08:53; Start 09/25/21 at 14:00 Pregabalin (Lyrica) 100 mg BID PO Last administered on 10/17/21at 08:52; Start 09/25/21 at 21:00 Acetaminophen (Tylenol) 650 mg PRN Q6HRS PRN PO MILD PAIN / TEMP > 100.3'F; Start 09/25/21 at 12:30; Status Cancel Al Hydroxide/Mg Hydroxide (Mylanta Plus Xs) 30 ml PRN Q3HRS PRN PO HEARTBURN / GAS; Start 09/25/21 at 12:30 Calcium Carbonate/ Glycine (Tums) 500 mg PRN Q3HRS PRN PO INDIGESTION; Start 09/25/21 at 12:30 Diphenhydramine HCl (Benadryl) 25 mg PRN Q6HRS PRN PO ITCHING (1ST CHOICE); Start 09/25/21 at 12:30 Naloxone HCl (Narcan) 0.1 mg PRN Q2MIN PRN IV SEE COMMENTS; Start 09/25/21 at 12:30 Sodium Chloride (Normal Saline Flush) 3 ml QSHIFT PRN IV AFTER MEDS AND BLOOD DRAWS; Start 09/25/21 at 12:30 Potassium Chloride/Sodium Chloride 1,000 ml @ 75 mls/hr Q50H96Q IV Last administered on 09/26/21at 07:00; Start 09/25/21 at 12:30; Stop 09/26/21 at 17:33; Status DC Magnesium Hydroxide (Milk Of Magnesia) 2,400 mg PRN Q12HR PRN PO CONSTIPATION; Start 09/25/21 at 12:30 Cefazolin Sodium (Ancef) 1 gm Q8H IVP Last administered on 09/26/21at 04:14; Start 09/25/21 at 18:00; Stop 09/26/21 at 10:01; Status DC Fentanyl Citrate (Fentanyl 2ml Vial) 50 mcg PRN Q2HR PRN IVP MODERATE TO SEVERE PAIN Last administered on 10/05/21at 22:46; Start 09/25/21 at 12:30 Dextrose (Dextrose 50%-Water Syringe) 12.5 gm PRN Q15MIN PRN IV SEE COMMENTS; Start 09/25/21 at 12:30; Status Cancel Dextrose (Iv Dextrose 5%) 250 ml PRN Q15MIN PRN IV SEE COMMENTS; Start 09/25/21 at 12:30; Status Cancel Gelatin (Gelfoam Size 100) 1 each STK-MED ONCE .ROUTE ; Start 09/25/21 at 06:37; Stop 09/25/21 at 14:55; Status DC Bupivacaine HCl/ Epinephrine Bitart (Sensorcain-Epi 0.5% Kit) 30 ml STK-MED ONCE .ROUTE ; Start 09/25/21 at 06:37; Stop 09/25/21 at 14:55; Status DC Ketorolac Tromethamine (Toradol Im) 60 mg STK-MED ONCE .ROUTE ; Start 09/25/21 at 06:37; Stop 09/25/21 at 14:55; Status DC Thrombin 20,000 unit STK-MED ONCE TP ; Start 09/25/21 at 06:38; Stop 09/25/21 at 14:55; Status DC Propofol (Diprivan) 200 mg STK-MED ONCE IV ; Start 09/25/21 at 05:54; Stop 09/25/21 at 14:57; Status DC Lidocaine HCl (Lidocaine Pf 2% Vial) 5 ml STK-MED ONCE .ROUTE ; Start 09/25/21 at 05:54; Stop 09/25/21 at 14:57; Status DC Ondansetron HCl (Zofran) 4 mg STK-MED ONCE .ROUTE ; Start 09/25/21 at 05:54; Stop 09/25/21 at 14:57; Status DC Phenylephrine HCl (Ramone-Synephrine Inj) 10 mg STK-MED ONCE .ROUTE ; Start 09/25/21 at 05:54; Stop 09/25/21 at 14:57; Status DC Propofol 50 ml @ As Directed STK-MED ONCE IV ; Start 09/25/21 at 05:54; Stop 09/25/21 at 14:57; Status DC Dexamethasone Sodium Phosphate (Decadron) 4 mg STK-MED ONCE .ROUTE ; Start 09/25/21 at 05:54; Stop 09/25/21 at 14:57; Status DC Fentanyl Citrate (Fentanyl 2ml Vial) 100 mcg STK-MED ONCE .ROUTE ; Start 09/25/21 at 05:54; Stop 09/25/21 at 14:57; Status DC Succinylcholine Chloride (Anectine) 200 mg STK-MED ONCE .ROUTE ; Start 09/25/21 at 05:54; Stop 09/25/21 at 14:57; Status DC Remifentanil HCl (Ultiva) 1 mg STK-MED ONCE IV ; Start 09/25/21 at 05:54; Stop 09/25/21 at 14:57; Status DC Glycopyrrolate (Robinul) 1 mg STK-MED ONCE .ROUTE ; Start 09/25/21 at 07:11; Stop 09/25/21 at 15:01; Status DC Propofol 50 ml @ As Directed STK-MED ONCE IV ; Start 09/25/21 at 08:07; Stop 09/25 at 15:02; Status DC Ketamine HCl (Ketamine) 50 mg STK-MED ONCE .ROUTE ; Start 09/25/21 at 08:15; Stop 09/25/21 at 15:02; Status DC Hydromorphone HCl (Dilaudid) 2 mg STK-MED ONCE .ROUTE ; Start 09/25/21 at 10:44; Stop 09/25/21 at 15:03; Status DC Fentanyl Citrate (Fentanyl 2ml Vial) 100 mcg STK-MED ONCE .ROUTE ; Start 09/25/21 at 13:26; Stop 09/25/21 at 15:04; Status DC Morphine Sulfate (Morphine Sulfate) 2 mg STK-MED ONCE .ROUTE ; Start 09/25/21 at 14:04; Stop 09/25/21 at 15:05; Status DC Hydromorphone HCl (Dilaudid) 2 mg STK-MED ONCE .ROUTE ; Start 09/25/21 at 14:54; Stop 09/25/21 at 15:06; Status DC Menthol/Methyl Salicylate (Bengay Greaseless Cream) 1 crispin PRN Q30MIN PRN TP MUSCLE PAIN Last administered on 10/02/21at 21:03; Start 09/25/21 at 18:45 Mupirocin (Bactroban) 1 crispin BID NS Last administered on 10/12/21at 21:09; Start 09/26/21 at 09:00; Stop 10/13/21 at 07:56; Status DC Dexamethasone Sodium Phosphate (Decadron) 10 mg 1X ONCE IVP Last administered on 09/26/21at 07:31; Start 09/26/21 at 07:30; Stop 09/26/21 at 07:31; Status DC Cefazolin Sodium 1 gm/Sodium Chloride 1,000 ml @ 1,000 mls/hr 1X ONCE IRR Last administered on 09/26/21at 11:52; Start 09/26/21 at 10:30; Stop 09/26/21 at 11:29; Status DC Cefazolin Sodium (Ancef) 1 gm STK-MED ONCE IVP ; Start 09/26/21 at 10:05; Stop 09/26/21 at 10:06; Status DC Lidocaine HCl (Lidocaine Pf 2% Vial) 5 ml STK-MED ONCE .ROUTE ; Start 09/26/21 at 10:18; Stop 09/26/21 at 10:18; Status DC Ondansetron HCl (Zofran) 4 mg STK-MED ONCE .ROUTE ; Start 09/26/21 at 10:18; Stop 09/26/21 at 10:18; Status DC Propofol (Diprivan) 200 mg STK-MED ONCE IV ; Start 09/26/21 at 10:18; Stop 09/26/21 at 10:19; Status DC Dexamethasone Sodium Phosphate (Decadron) 4 mg STK-MED ONCE .ROUTE ; Start 09/26/21 at 10:18; Stop 09/26/21 at 10:19; Status DC Sevoflurane (Ultane) 30 ml STK-MED ONCE IH ; Start 09/26/21 at 10:18; Stop 09/26/21 at 10:19; Status DC Fentanyl Citrate (Fentanyl 2ml Vial) 100 mcg STK-MED ONCE .ROUTE ; Start 09/26/21 at 10:19; Stop 09/26/21 at 10:19; Status DC Rocuronium Langston (Zemuron) 50 mg STK-MED ONCE .ROUTE ; Start 09/26/21 at 10:19; Stop 09/26/21 at 10:19; Status DC Insulin Human Lispro (HumaLOG VIAL for OP,RR ONLY) 0-10 units PRN Q1HR PRN SQ PER PROTOCOL Last administered on 09/26/21at 15:11; Start 09/26/21 at 10:30; Stop 09/26/21 at 18:00; Status DC Sugammadex Sodium (Bridion) 200 mg 1X ONCE IVP Last administered on 09/26/21at 10:30; Start 09/26/21 at 10:30; Stop 09/26/21 at 10:31; Status DC Gelatin (Gelfoam Size 100) 1 each STK-MED ONCE .ROUTE Last administered on 09/26/21at 11:52; Start 09/26/21 at 10:30; Stop 09/26/21 at 10:30; Status DC Bupivacaine HCl/ Epinephrine Bitart (Sensorcain-Epi 0.5% Kit) 30 ml STK-MED ONCE .ROUTE ; Start 09/26/21 at 10:30; Stop 09/26/21 at 10:30; Status DC Ketorolac Tromethamine (Toradol Im) 60 mg STK-MED ONCE .ROUTE ; Start 09/26/21 at 10:30; Stop 09/26/21 at 10:30; Status DC Thrombin 20,000 unit STK-MED ONCE TP Last administered on 09/26/21at 11:52; Start 09/26/21 at 10:30; Stop 09/26/21 at 10:31; Status DC Cefazolin Sodium/ Dextrose 50 ml @ As Directed STK-MED ONCE IV ; Start 09/26/21 at 10:32; Stop 09/26/21 at 10:32; Status DC Vancomycin HCl 1 gm/Sodium Chloride 250 ml @ 250 mls/hr PREOP PRN PRN IV PRIOR TO PROCEDURE; Start 09/26/21 at 10:45; Stop 09/26/21 at 14:00; Status DC Cefazolin Sodium/ Dextrose 50 ml @ 100 mls/hr 1X ONCE IV Last administered on 09/26/21at 11:00; Start 09/26/21 at 11:00; Stop 09/26/21 at 11:29; Status DC Dexamethasone Sodium Phosphate (Decadron) 4 mg STK-MED ONCE .ROUTE ; Start 09/26/21 at 11:04; Stop 09/26/21 at 11:04; Status DC Glycopyrrolate (Robinul) 1 mg STK-MED ONCE .ROUTE ; Start 09/26/21 at 11:04; Stop 09/26/21 at 11:04; Status DC Hydromorphone HCl (Dilaudid) 2 mg STK-MED ONCE .ROUTE ; Start 09/26/21 at 11:56; Stop 09/26/21 at 11:56; Status DC Fentanyl Citrate (Fentanyl 2ml Vial) 25 mcg PRN Q5MIN PRN IVP MILD PAIN 1-3; Start 09/26/21 at 14:30; Stop 09/26/21 at 18:15; Status DC Fentanyl Citrate (Fentanyl 2ml Vial) 50 mcg PRN Q5MIN PRN IVP MODERATE PAIN 4- 6; Start 09/26/21 at 14:30; Stop 09/26/21 at 18:15; Status DC Morphine Sulfate (Morphine Sulfate) 1 mg PRN Q10MIN PRN IVP SEVERE PAIN 7-10; Start 09/26/21 at 14:30; Stop 09/26/21 at 18:15; Status DC Ringer's Solution 1,000 ml @ 30 mls/hr Q24H IV Last administered on 09/26/21at 15:18; Start 09/26/21 at 14:30; Stop 09/26/21 at 21:00; Status DC Hydromorphone HCl (Dilaudid) 0.5 mg PRN Q10MIN PRN IVP SEVERE PAIN 7-10, 2nd CHOICE; Start 09/26/21 at 14:30; Stop 09/26/21 at 18:15; Status DC Prochlorperazine Edisylate (Compazine) 5 mg PACU PRN PRN IVP NAUSEA, MRX1; Start 09/26/21 at 14:30; Stop 09/26/21 at 21:00; Status DC Fentanyl Citrate (Fentanyl 2ml Vial) 100 mcg STK-MED ONCE .ROUTE ; Start 09/26/21 at 14:23; Stop 09/26/21 at 14:25; Status DC Fentanyl Citrate (Fentanyl 2ml Vial) 25 mcg PRN Q5MIN PRN IVP MILD PAIN 1-3; Start 09/26/21 at 14:30; Stop 09/27/21 at 14:29; Status UNV Fentanyl Citrate (Fentanyl 2ml Vial) 50 mcg PRN Q5MIN PRN IVP MODERATE PAIN 4- 6; Start 09/26/21 at 14:30; Stop 09/27/21 at 14:29; Status UNV Morphine Sulfate (Morphine Sulfate) 1 mg PRN Q10MIN PRN IVP SEVERE PAIN 7-10; Start 09/26/21 at 14:30; Stop 09/27/21 at 14:29; Status UNV Ringer's Solution 1,000 ml @ 30 mls/hr Q24H IV ; Start 09/26/21 at 14:30; Stop 09/27/21 at 02:29; Status UNV Hydromorphone HCl (Dilaudid) 0.5 mg PRN Q10MIN PRN IVP SEVERE PAIN 7-10, 2nd CHOICE; Start 09/26/21 at 14:30; Stop 09/27/21 at 14:29; Status UNV Prochlorperazine Edisylate (Compazine) 5 mg PACU PRN PRN IVP NAUSEA, MRX1; Start 09/26/21 at 14:30; Stop 09/27/21 at 14:29; Status UNV Dexamethasone Sodium Phosphate (Decadron) 4 mg Q6HRS IVP Last administered on 09/28/21at 05:06; Start 09/26/21 at 18:00; Stop 09/28/21 at 06:00; Status DC Sodium Chloride 1,000 ml @ 100 mls/hr Q10H IV Last administered on 10/05/21at 06:41; Start 09/26/21 at 17:30; Stop 10/05/21 at 13:48; Status DC Cefazolin Sodium (Ancef) 1 gm Q8HRS IVP ; Start 09/27/21 at 06:00; Stop 09/27/21 at 05:47; Status DC Vancomycin HCl 1 gm/Sodium Chloride 250 ml @ 166.667 mls/hr 1X ONCE IV Last administered on 09/27/21at 06:27; Start 09/27/21 at 06:00; Stop 09/27/21 at 07:29; Status DC Gadoterate Meglumine (Clariscan) 19 ml 1X ONCE IVP Last administered on 09/29/21at 10:32; Start 09/29/21 at 08:15; Stop 09/29/21 at 08:17; Status DC Bisacodyl (Dulcolax Supp) 10 mg PRN DAILY PRN [place] CONSTIPATION; Start 09/29/21 at 14:15 Lactulose (Lactulose) 20 gm PRN DAILY PRN PO CONSTIPATION, 2nd choice Last administered on 10/01/21at 08:35; Start 09/29/21 at 14:30 Ascorbic Acid (Vitamin C) 500 mg DAILY PO Last administered on 10/17/21at 08:52; Start 10/02/21 at 10:00 Levofloxacin/ Dextrose 100 ml @ 100 mls/hr Q24H IV Last administered on 10/02/21at 12:15; Start 10/02/21 at 12:00; Stop 10/03/21 at 08:57; Status DC Levofloxacin/ Dextrose 50 ml @ 50 mls/hr Q24H IV Last administered on 10/06/21at 15:19; Start 10/03/21 at 12:00; Stop 10/06/21 at 23:00; Status DC Lactobacillus Rhamnosus (Culturelle) 1 cap BID PO Last administered on 10/17/21at 08:52; Start 10/03/21 at 21:00 Lidocaine (Lidoderm) 1 patch QHS TP Last administered on 10/16/21at 21:26; Start 10/04/21 at 22:00 Levofloxacin (Levaquin) 250 mg DAILY06 PO Last administered on 10/11/21at 06:13; Start 10/07/21 at 06:00; Stop 10/11/21 at 12:00; Status DC Insulin Human Lispro (HumaLOG) 0-5 UNITS TIDWMEALS SQ Last administered on 10/17/21at 12:47; Start 10/12/21 at 08:00 Dextrose (Dextrose 50%-Water Syringe) 12.5 gm PRN Q15MIN PRN IV SEE COMMENTS; Start 10/11/21 at 19:00 Dextrose (Iv Dextrose 5%) 250 ml PRN Q15MIN PRN IV SEE COMMENTS; Start 10/11/21 at 19:00 Potassium Chloride (Klor-Con) 40 meq 1X ONCE PO Last administered on 10/15/21at 10:21; Start 10/15/21 at 10:30; Stop 10/15/21 at 10:31; Status DC Magnesium Sulfate 50 ml @ 25 mls/hr 1X ONCE IV Last administered on 10/15/21at 10:20; Start 10/15/21 at 10:30; Stop 10/15/21 at 12:29; Status DC Baclofen (Lioresal) 10 mg Q8HRS PO Last administered on 10/17/21at 06:02; Start 10/16/21 at 22:00; Stop 10/17/21 at 11:58; Status DC Baclofen (Lioresal) 10 mg Q6HRS PO Last administered on 10/17/21at 12:56; Start 10/17/21 at 12:00 Triamcinolone Acetonide (Kenalog-40) 40 mg 1X ONCE IM ; Start 10/17/21 at 12:15; Stop 10/17/21 at 12:16; Status DC Bupivacaine HCl (Sensorcaine-Mpf 0.25%) 10 ml 1X ONCE IJ ; Start 10/17/21 at 12:00; Stop 10/17/21 at 12:01; Status DC Active Scripts Active Dok (Docusate Sodium) 100 Mg Capsule 100 Mg PO PRN BID PRN 30 Days Tylenol (Acetaminophen) 325 Mg Tablet 650 Mg PO PRN Q4HRS PRN 30 Days Valium (Diazepam) 5 Mg Tablet 5 Mg PO TID Atorvastatin Calcium 10 Mg Tablet 10 Mg PO QHS Reported Midodrine Hcl 2.5 Mg Tablet 2.5 Mg PO PRN 1X PRN Aspirin 81 Mg Tab.chew 81 Mg PO DAILY Baclofen 10 Mg Tablet 10 Mg PO BID Lyrica (Pregabalin) 100 Mg Capsule 100 Mg PO BID 30 Days Polyethylene Glycol 3350 2,500 Gm Powder 17 Gm PO DAILY 30 Days Micatin (Miconazole Nitrate) 14 Gm Cream..g. 1 Crispin TP TID Tradjenta (Linagliptin) 5 Mg Tablet 5 Mg PO DAILY Lidocaine PATCH (Lidocaine) 1 Each Adh..patch 1 Each TP DAILY REMOVE AFTER 12 HOURS Levemir (Insulin Detemir) 100 Unit/1 Ml Vial 4 Unit SQ HS Hydroxyzine Hcl 25 Mg Tablet 25 Mg PO PRN Q6HRS PRN Fluticasone Propionate Nasal Cadogan (Fluticasone Propionate) 16 Gm Cadogan.susp 2 Cadogan NS DAILY Diclofenac Sodium 100 Gm Gel..gram. 100 Gm TP PRN TID PRN Losartan Potassium 100 Mg Tablet 25 Tab PO DAILY08 Allergies Allergies: Coded Allergies: I S O L A T I O N *CONTACT* (Verified Allergy, Unknown, 09/26/21) mrsa No Known Medication Allergies (Verified Allergy, Unknown, 09/26/21) ROS Review of System Negative for fever, chills, weight loss, shortness of breath, chest pain, indigestion, hematochezia, melena, and dysuria. Full 14-point review of systems is negative. Physical Exam Physical Examination General: Well-developed, well-nourished, black male, in no acute distress HEENT: Normocephalic andatraumatic.Temporal arteriespulsatile and nontender. Neck: Supple without bruit, no meningismus. Musculoskeletal: Stability:see neurologic. Gait exam:see neurologic. Tone:see neurologic.Strength:see neurologic. Neurological: Mental Status:intact, orientation, memory, attention span/concentration, language, fund of knowledge normal. Cranial Nerves:Pupils equal and reactive to light, extraocular movements areintact, visual fisher are full to confrontation. Facial sensation is normal. There is no facial asymmetry. Vestibulo-ocular reflex is intact. Palate elevates and tongue protrudes in midline. All other cranial related problems are negative except as mentioned before.Reflexes:1+ and symmetric with silent plantar responses. Motor:0/5 legs, 3/5 distal arms, 4/5 left shoulder, 5/5 right shoulder. Coordination and gait:not testable. Sensory:Stocking loss, no spinal sensory level. Vitals VITALS Vital Signs Date Time Temp Pulse Resp B/P (MAP) Pulse Ox O2 Delivery O2 Flow Rate FiO2 10/17/21 14:56 98.4 82 18 137/73 (94) 96 Room Air 98.4 Labs Labs Laboratory Tests Test 10/15/21 17:11 10/15/21 21:38 10/16/21 07:15 10/16/21 12:48 Glucose (Fingerstick) 114 mg/dL (70-99) 156 mg/dL (70-99) 133 mg/dL (70-99) 148 mg/dL (70-99) Test 10/16/21 16:51 10/16/21 21:14 10/17/21 07:06 10/17/21 11:55 Glucose (Fingerstick) 156 mg/dL (70-99) 136 mg/dL (70-99) 127 mg/dL (70-99) 163 mg/dL (70-99) Test 10/17/21 14:26 White Blood Count 10.6 x10^3/uL (4.0-11.0) Red Blood Count 3.63 x10^6/uL (4.30-5.70) Hemoglobin 10.0 g/dL (13.0-17.5) Hematocrit 31.3 % (39.0-53.0) Mean Corpuscular Volume 86 fL (79-100) Mean Corpuscular Hemoglobin 28 pg (25-35) Mean Corpuscular Hemoglobin Concent 32 g/dL (31-37) Red Cell Distribution Width 15.3 % (11.5-14.5) Platelet Count 279 x10^3/uL (140-400) Neutrophils (%) (Auto) 74 % (31-73) Lymphocytes (%) (Auto) 15 % (24-48) Monocytes (%) (Auto) 8 % (0-9) Eosinophils (%) (Auto) 2 % (0-3) Basophils (%) (Auto) 1 % (0-3) Neutrophils # (Auto) 7.8 x10^3/uL (1.8-7.7) Lymphocytes # (Auto) 1.6 x10^3/uL (1.0-4.8) Monocytes # (Auto) 0.9 x10^3/uL (0.0-1.1) Eosinophils # (Auto) 0.2 x10^3/uL (0.0-0.7) Basophils # (Auto) 0.1 x10^3/uL (0.0-0.2) Sodium Level 143 mmol/L (136-145) Potassium Level 3.6 mmol/L (3.5-5.1) Chloride Level 106 mmol/L (98-107) Carbon Dioxide Level 26 mmol/L (21-32) Anion Gap 11 (6-14) Blood Urea Nitrogen 10 mg/dL (8-26) Creatinine 0.8 mg/dL (0.7-1.3) Estimated GFR (Cockcroft-Gault) 118.9 Glucose Level 173 mg/dL (70-99) Calcium Level 8.2 mg/dL (8.5-10.1) Magnesium Level 1.6 mg/dL (1.8-2.4) Laboratory Tests Test 10/16/21 16:51 10/16/21 21:14 10/17/21 07:06 10/17/21 11:55 Glucose (Fingerstick) 156 mg/dL (70-99) 136 mg/dL (70-99) 127 mg/dL (70-99) 163 mg/dL (70-99) Test 10/17/21 14:26 White Blood Count 10.6 x10^3/uL (4.0-11.0) Red Blood Count 3.63 x10^6/uL (4.30-5.70) Hemoglobin 10.0 g/dL (13.0-17.5) Hematocrit 31.3 % (39.0-53.0) Mean Corpuscular Volume 86 fL (79-100) Mean Corpuscular Hemoglobin 28 pg (25-35) Mean Corpuscular Hemoglobin Concent 32 g/dL (31-37) Red Cell Distribution Width 15.3 % (11.5-14.5) Platelet Count 279 x10^3/uL (140-400) Neutrophils (%) (Auto) 74 % (31-73) Lymphocytes (%) (Auto) 15 % (24-48) Monocytes (%) (Auto) 8 % (0-9) Eosinophils (%) (Auto) 2 % (0-3) Basophils (%) (Auto) 1 % (0-3) Neutrophils # (Auto) 7.8 x10^3/uL (1.8-7.7) Lymphocytes # (Auto) 1.6 x10^3/uL (1.0-4.8) Monocytes # (Auto) 0.9 x10^3/uL (0.0-1.1) Eosinophils # (Auto) 0.2 x10^3/uL (0.0-0.7) Basophils # (Auto) 0.1 x10^3/uL (0.0-0.2) Sodium Level 143 mmol/L (136-145) Potassium Level 3.6 mmol/L (3.5-5.1) Chloride Level 106 mmol/L (98-107) Carbon Dioxide Level 26 mmol/L (21-32) Anion Gap 11 (6-14) Blood Urea Nitrogen 10 mg/dL (8-26) Creatinine 0.8 mg/dL (0.7-1.3) Estimated GFR (Cockcroft-Gault) 118.9 Glucose Level 173 mg/dL (70-99) Calcium Level 8.2 mg/dL (8.5-10.1) Magnesium Level 1.6 mg/dL (1.8-2.4) Images Images Cervical spine MRI without and with contrast, 09/29/21. HISTORY: Cervical hematoma evacuation. TECHNIQUE: Multiplanar, multisequence magnetic resonance imaging of the cervical spine was performed without and with contrast. COMPARISON: CT dated 09/26/2021. MRI dated 07/28/2021. MRI dated 07/28/2021. FINDINGS: There is instrumented anterior spinal fusion and interbody fusion at C4-C6. There is laminectomy decompression and instrumented posterior fusion at C3-C7. The instrumentation is better characterized on the recent CT. There is a drainage catheter within the laminectomy decompression space extending cephalad from C6 to terminate at C2. There is surrounding postoperative edema and susceptibility artifact. No drainable fluid collection is seen. There is central canal stenosis and deformation of the cervical spinal cord at multiple levels. There is associated focal T2 hyperintensity within the the dorsal aspect of the spinal cord at C5 due to myelomalacia. This is stable in appearance. There is increased signal within the cervical spinal cord at T3 on sagittal images. This is likely artifactual rather than due to edema or myelomalacia, given the absence of a correlate signal abnormality on axial images. There is a 1.3 cm fluid signal intensity lesion within the right parotid gland. At C2-C3, there is endplate remodeling. There is no stenosis. At C3-C4, there is a left posterior lateral disc protrusion and osteophyte complex superimposed on a disc bulge and endplate remodeling. There is uncovertebral arthropathy. There is severe right and mild to moderate left foraminal stenosis. There is deformation of the spinal cord and moderate central canal stenosis measuring 6.1 mm. There are overlying laminectomy changes. At C4-C5, there is instrumented fusion and laminectomy decompression. There is endplate remodeling. There is uncovertebral arthropathy. There is mild bilateral foraminal stenosis. At C5-C6, there is instrumented fusion and laminectomy decompression. There is endplate remodeling. There is uncovertebral arthropathy. There is mild right foraminal stenosis. There is mild central canal stenosis. At C6-C7, there is a disc bulge and endplate remodeling. There is uncovertebral arthropathy. There is moderate bilateral facet arthropathy. There is mild right foraminal stenosis. At C7-T1, there is a suspected right foraminal disc osteophyte complex superimposed on a disc bulge and endplate remodeling. There is moderate to severe bilateral foraminal stenosis. IMPRESSION: 1. Interval placement of a surgical drain within laminectomy decompression spaces at the cervical levels. No drainable focal lesion is seen. There is surrounding postoperative edema and susceptibility effect. 2. Instrumented anterior spinal fusion and interbody fusion at C4-C6 and posterior fusion at C3-C7. The instrumentation is better characterized on the recent CT. 3. Deformation the spinal cord at multiple levels due to central canal stenosis. There are superimposed myelomalacia within C5, stable in appearance. 4. Degenerative changes resulting in foraminal and central canal stenosis as d escribed above. The central canal stenosis is decreased at C4-C5 and C5-C6 compared to the prior MRI. The stenosis is not significantly changed the remainder of the levels. 4. Stable 1.3 cm suspected cystic lesion or T2 hyperintense lymph node within the right parotid gland. CT CERVICAL SPINE WO, 09/26/21 History: Pain, increased numbness, tingling, decreased range of motion. Comparison: MRI cervical spine 09/01/2021. Fluoroscopy for laminectomy 09/25/2021. CTA head and neck 07/28/2021 Technique: Noncontrast CT of the cervical spine. Findings: There are 7 nonrib-bearing cervical vertebral segments. Redemonstrated ACDF from C4-C6. There have been new postsurgical features from posterior spinal fixation C3-C7 on the left and C3-C6 on the right. C3-C6 laminectomies. Alignment remains anatomic. No fracture or a component malalignment identified. There is a small amount of extradural air at the level of C2 consistent with recent instrumentation. Evaluation of the spinal canal at the surgical levels is significantly limited by metallic streak artifact. Question posterior epidural fluid collection at the level of C2-C3 measuring approximately 4 mm thickness and narrowing the thecal sac (sagittal image 28) to approximately 4-5 mm AP. No prevertebral soft tissue swelling. There is a fluid tract in the posterior soft tissues consistent with recent instrumentation. Surgical clips in the vertical orientation along the posterior neck. Intervertebral disc heights are relatively preserved with mild narrowing at C6- C7. Left neural foraminal stenosis at C6-C7. Right neural foraminal stenosis at C3-C4. Limited evaluation of the upper chest is unremarkable. Impression: 1. Recent postsurgical features from C3-C7 posterior spinal fixation with C3-C6 laminectomies. 2. Metallic artifact significantly limits evaluation of the spinal canal at the surgical levels. Question posterior epidural hematoma at the level of C2-C3 measuring 4 mm thickness, narrowing the thecal sac to approximately 4-5 mm AP. This is not well visualized and could potentially represent imaging artifact. 3. Degenerative disc and facet disease causing foraminal stenosis on the right at C3-C4 and on the left at C6-C7. MR CERVICAL SPINE WO,09/01/2021 1:39 PM INDICATION: CERVICAL STENOSIS/CERVICAL MYELOPATHY. S/P Trauma with Cspine fracture and anterior fusion 07/2021. TECHNIQUE: Multiplanar multisequence magnetic resonance imaging of the cervical spine was performed without administration of intravenous contrast using the standard cervical spine protocol. COMPARISON: 07/28/2021. FINDINGS: Postsurgical changes of ACDF at C4-C6. Straightening of the cervical lordosis. No acute fracture. Mild multilevel degenerative disc desiccation and disc height loss. T3 hemangioma. Improved abnormal spinal cord signal, with residual T2/STIR hyperintensity and volume loss at C5-6. On the limited views of the cranial cavity and brain, the cerebellum and yamilet have normal morphology and signal characteristics. No Chiari malformation. No soft tissue abnormality. Normal signal voids are present in the vertebral arteries. Congenitally narrowed spinal canal. C2-3: No significant spinal canal stenosis or neural foraminal narrowing. C3-4: Disc osteophyte complex. Uncovertebral hypertrophy. Moderate spinal canal stenosis, previously moderate to severe. Severe right and moderate left neural foraminal narrowing. C4-5: Disc osteophyte complex. Uncovertebral hypertrophy. Moderate spinal canal stenosis, previously severe. Moderate bilateral neural foraminal narrowing. C5-6: Disc osteophyte complex. Uncovertebral hypertrophy. Moderate spinal canal stenosis, previously severe. Moderate right and mild left neural foraminal narrowing. C6-7: Disc osteophyte complex. Uncovertebral hypertrophy. Mild spinal canal stenosis, previously moderate. Moderate bilateral neural foraminal narrowing. C7-T1: Uncovertebral hypertrophy. Severe bilateral neural foraminal narrowing. No spinal canal stenosis. IMPRESSION: Spinal canal stenosis and abnormal spinal cord signal have improved. Residual abnormal spinal cord signal with volume loss at C5-C6, likely myelomalacia. Assessment/Plan Assessment/Plan Impression: Fall in July due to alcohol intoxication, he underwent cervical decompression done, then returned a month ago for further cervical surgery, developed epidural hematoma, now has a C6 motor spinal level, no sensory spinal level. Spasticity due to above, better with higher dose of baclofen along with pregabalin and Valium. He is also on narcotics analgesics. Diabetic neuropathy History of syncope History of transient ischemic attack related to hypertension Recommendations: Agree with current management by Dr. Pineda I will follow along. Thank you for letting me help with the patient's care. RICH HUGGINS MD Oct 17, 2021 16:36
--- NOTE | 2021-10-17 17:19 | PDOC ---
PROGRESS NOTES Date of Service DATE: 10/17/21 TIME: 17:09 Subjective Subjective patient seen at 1300 POD #21 S/P Evacuation of epidural hematoma, s/p cervical laminectomy and fusion 09/25/21 more spasms today Objective Objective Vital Signs Date Time Temp Pulse Resp B/P (MAP) Pulse Ox O2 Delivery O2 Flow Rate FiO2 10/17/21 14:56 98.4 82 18 137/73 (94) 96 Room Air 98.4 10/15/21 10:32 2.0 Intake and Output 10/17/21 07:00 Intake Total 640 ml Output Total 1250 ml Balance -610 ml Intake Oral 640 ml Output Urine Total 1250 ml Physical Exam General: Alert, Oriented X3, Cooperative Neuro: Normal speech, Other ((sensation intact in upper and lower extremities, moves upper extremities with 3/5 strength, hand grasps slightly stronger- finger extension improved, moving bilateral great toes) Skin: Other (incision healing well) Plan Plan of Care baclofen was increased continue current treatment awaiting rehab placement Comment Review of Relevant I have reviewed the following items michelle (where applicable) has been applied. Labs Laboratory Tests Test 10/15/21 17:11 10/15/21 21:38 10/16/21 07:15 10/16/21 12:48 Glucose (Fingerstick) 114 mg/dL (70-99) 156 mg/dL (70-99) 133 mg/dL (70-99) 148 mg/dL (70-99) Test 10/16/21 16:51 10/16/21 21:14 10/17/21 07:06 10/17/21 11:55 Glucose (Fingerstick) 156 mg/dL (70-99) 136 mg/dL (70-99) 127 mg/dL (70-99) 163 mg/dL (70-99) Test 10/17/21 14:26 White Blood Count 10.6 x10^3/uL (4.0-11.0) Red Blood Count 3.63 x10^6/uL (4.30-5.70) Hemoglobin 10.0 g/dL (13.0-17.5) Hematocrit 31.3 % (39.0-53.0) Mean Corpuscular Volume 86 fL (79-100) Mean Corpuscular Hemoglobin 28 pg (25-35) Mean Corpuscular Hemoglobin Concent 32 g/dL (31-37) Red Cell Distribution Width 15.3 % (11.5-14.5) Platelet Count 279 x10^3/uL (140-400) Neutrophils (%) (Auto) 74 % (31-73) Lymphocytes (%) (Auto) 15 % (24-48) Monocytes (%) (Auto) 8 % (0-9) Eosinophils (%) (Auto) 2 % (0-3) Basophils (%) (Auto) 1 % (0-3) Neutrophils # (Auto) 7.8 x10^3/uL (1.8-7.7) Lymphocytes # (Auto) 1.6 x10^3/uL (1.0-4.8) Monocytes # (Auto) 0.9 x10^3/uL (0.0-1.1) Eosinophils # (Auto) 0.2 x10^3/uL (0.0-0.7) Basophils # (Auto) 0.1 x10^3/uL (0.0-0.2) Sodium Level 143 mmol/L (136-145) Potassium Level 3.6 mmol/L (3.5-5.1) Chloride Level 106 mmol/L (98-107) Carbon Dioxide Level 26 mmol/L (21-32) Anion Gap 11 (6-14) Blood Urea Nitrogen 10 mg/dL (8-26) Creatinine 0.8 mg/dL (0.7-1.3) Estimated GFR (Cockcroft-Gault) 118.9 Glucose Level 173 mg/dL (70-99) Calcium Level 8.2 mg/dL (8.5-10.1) Magnesium Level 1.6 mg/dL (1.8-2.4) Laboratory Tests Test 10/16/21 21:14 10/17/21 07:06 10/17/21 11:55 10/17/21 14:26 Glucose (Fingerstick) 136 mg/dL (70-99) 127 mg/dL (70-99) 163 mg/dL (70-99) White Blood Count 10.6 x10^3/uL (4.0-11.0) Red Blood Count 3.63 x10^6/uL (4.30-5.70) Hemoglobin 10.0 g/dL (13.0-17.5) Hematocrit 31.3 % (39.0-53.0) Mean Corpuscular Volume 86 fL (79-100) Mean Corpuscular Hemoglobin 28 pg (25-35) Mean Corpuscular Hemoglobin Concent 32 g/dL (31-37) Red Cell Distribution Width 15.3 % (11.5-14.5) Platelet Count 279 x10^3/uL (140-400) Neutrophils (%) (Auto) 74 % (31-73) Lymphocytes (%) (Auto) 15 % (24-48) Monocytes (%) (Auto) 8 % (0-9) Eosinophils (%) (Auto) 2 % (0-3) Basophils (%) (Auto) 1 % (0-3) Neutrophils # (Auto) 7.8 x10^3/uL (1.8-7.7) Lymphocytes # (Auto) 1.6 x10^3/uL (1.0-4.8) Monocytes # (Auto) 0.9 x10^3/uL (0.0-1.1) Eosinophils # (Auto) 0.2 x10^3/uL (0.0-0.7) Basophils # (Auto) 0.1 x10^3/uL (0.0-0.2) Sodium Level 143 mmol/L (136-145) Potassium Level 3.6 mmol/L (3.5-5.1) Chloride Level 106 mmol/L (98-107) Carbon Dioxide Level 26 mmol/L (21-32) Anion Gap 11 (6-14) Blood Urea Nitrogen 10 mg/dL (8-26) Creatinine 0.8 mg/dL (0.7-1.3) Estimated GFR (Cockcroft-Gault) 118.9 Glucose Level 173 mg/dL (70-99) Calcium Level 8.2 mg/dL (8.5-10.1) Magnesium Level 1.6 mg/dL (1.8-2.4) Microbiology 10/01/21 Urine Culture - Final, Complete Escherichia Coli Escherichia Coli#2 Medications Current Medications Fentanyl Citrate (Fentanyl 2ml Vial) 25 mcg PRN Q5MIN PRN IVP MILD PAIN 1-3; Start 09/25/21 at 06:00; Stop 09/25/21 at 20:00; Status DC Fentanyl Citrate (Fentanyl 2ml Vial) 50 mcg PRN Q5MIN PRN IVP MODERATE PAIN 4-6 Last administered on 09/25/21at 13:48; Start 09/25/21 at 06:00; Stop 09/25/21 at 20:00; Status DC Morphine Sulfate (Morphine Sulfate) 1 mg PRN Q10MIN PRN IVP SEVERE PAIN 7-10 Last administered on 09/25/21at 14:21; Start 09/25/21 at 06:00; Stop 09/25/21 at 20:00; Status DC Ringer's Solution 1,000 ml @ 30 mls/hr Q24H IV Last administered on 09/25/21at 12:54; Start 09/25/21 at 06:00; Stop 09/25/21 at 17:59; Status DC Hydromorphone HCl (Dilaudid) 0.5 mg PRN Q10MIN PRN IVP SEVERE PAIN 7-10, 2nd CHOICE Last administered on 09/25/21at 16:53; Start 09/25/21 at 06:00; Stop 09/25/21 at 20:00; Status DC Prochlorperazine Edisylate (Compazine) 5 mg PACU PRN PRN IVP NAUSEA, MRX1; Start 09/25/21 at 06:00; Stop 09/25/21 at 20:00; Status DC Cefazolin Sodium 1 gm/Sodium Chloride 1,000 ml @ 1,000 mls/hr 1X ONCE IRR Last administered on 09/25/21at 10:14; Start 09/25/21 at 06:00; Stop 09/25/21 at 06:59; Status DC Cefazolin Sodium/ Dextrose 50 ml @ 100 mls/hr 1X PREOP PRN IV PRIOR TO PROCEDURE Last administered on 09/25/21at 09:30; Start 09/25/21 at 06:00; Stop 09/25/21 at 13:39; Status DC Insulin Human Lispro (HumaLOG VIAL for OP,RR ONLY) 0-10 units PRN Q1HR PRN SQ PER PROTOCOL Last administered on 09/25/21at 17:01; Start 09/25/21 at 07:00; Stop 09/25/21 at 18:00; Status DC Bupivacaine HCl/ Epinephrine Bitart (Sensorcain-Epi 0.5% Kit) 30 ml STK-MED ONCE INJ Last administered on 09/25/21at 10:14; Start 09/25/21 at 10:14; Stop 09/25/21 at 10:30; Status DC Ketorolac Tromethamine (Toradol Im) 60 mg STK-MED ONCE INJ Last administered on 09/25/21at 10:14; Start 09/25/21 at 10:14; Stop 09/25/21 at 10:30; Status DC Thrombin 20,000 unit STK-MED ONCE TP Last administered on 09/25/21at 10:14; Start 09/25/21 at 10:14; Stop 09/25/21 at 10:30; Status DC Gelatin (Gelfoam Size 100) 1 each STK-MED ONCE TP Last administered on 09/25/21at 10:14; Start 09/25/21 at 10:14; Stop 09/25/21 at 10:30; Status DC Acetaminophen (Tylenol) 650 mg PRN Q4HRS PRN PO TEMP OVER 100.4F OR MILD PAIN Last administered on 10/16/21at 04:15; Start 09/25/21 at 12:30 Aspirin (Aspirin Chewable) 81 mg DAILY PO Last administered on 09/26/21at 08:30; Start 09/26/21 at 09:00; Stop 09/28/21 at 17:19; Status DC Atorvastatin Calcium (Lipitor) 10 mg QHS PO Last administered on 10/16/21at 21:16; Start 09/25/21 at 21:00 Baclofen (Lioresal) 10 mg BID PO Last administered on 10/16/21 08:26; Start 09/25/21 at 21:00; Stop 10/16/21 at 13:21; Status DC Diazepam (Valium) 5 mg TID PO Last administered on 10/17/21at 08:53; Start 09/25/21 at 14:00 Docusate Sodium (Colace) 100 mg PRN BID PRN PO HARD STOOLS Last administered on 10/15/21at 10:22; Start 09/25/21 at 12:30 Fluticasone Propionate (Flonase) 2 spray DAILY NS Last administered on 10/17/21at 12:58; Start 09/26/21 at 09:00 Hydroxyzine HCl (Atarax) 25 mg PRN Q6HRS PRN PO Itching (2ND Choice) Last administered on 10/16/21 23:33; Start 09/25/21 at 12:30 Lidocaine (Lidoderm) 1 patch QHS TP Last administered on 10/03/21 23:31; Start 09/25/21 at 20:00; Stop 10/05/21 at 01:01; Status DC Linagliptin (Tradjenta) 5 mg DAILY PO Last administered on 10/17/21 08:53; Start 09/25/21 at 13:00 Miconazole Nitrate (Monistat-Derm) 1 crispin TID TP Last administered on 10/04/21 20:08; Start 09/25/21 at 21:00; Stop 10/05/21 at 13:23; Status DC Midodrine (Proamatine) 2.5 mg PRN 1X PRN PO hypotension Last administered on 09/27/21 08:56; Start 09/25/21 at 12:30 Oxycodone HCl (Roxicodone) 10 mg PRN Q6HRS PRN PO MODERATE-SEVERE PAIN Last administered on 10/17/21at 13:14; Start 09/25/21 at 12:30 Diclofenac Sodium (Voltaren) 1 crispin PRN TID PRN TP PAIN CONTROL; Start 09/25/21 at 13:15; Stop 09/25/21 at 18:37; Status DC Insulin Glargine (Lantus Syringe) 4 unit QHS SQ Last administered on 10/17/21 04:42; Start 09/25/21 at 21:00 Losartan Potassium (Cozaar) 25 mg DAILY08 PO Last administered on 10/17/21 08:53; Start 09/26/21 at 08:00 Polyethylene Glycol (miraLAX PACKET) 17 gm DAILY PO Last administered on 10/13/21 08:53; Start 09/25/21 at 14:00 Pregabalin (Lyrica) 100 mg BID PO Last administered on 10/17/21 08:52; Start 09/25/21 at 21:00 Acetaminophen (Tylenol) 650 mg PRN Q6HRS PRN PO MILD PAIN / TEMP > 100.3'F; Start 09/25/21 at 12:30; Status Cancel Al Hydroxide/Mg Hydroxide (Mylanta Plus Xs) 30 ml PRN Q3HRS PRN PO HEARTBURN / GAS; Start 09/25/21 at 12:30 Calcium Carbonate/ Glycine (Tums) 500 mg PRN Q3HRS PRN PO INDIGESTION; Start 09/25/21 at 12:30 Diphenhydramine HCl (Benadryl) 25 mg PRN Q6HRS PRN PO ITCHING (1ST CHOICE); Start 09/25/21 at 12:30 Naloxone HCl (Narcan) 0.1 mg PRN Q2MIN PRN IV SEE COMMENTS; Start 09/25/21 at 12:30 Sodium Chloride (Normal Saline Flush) 3 ml QSHIFT PRN IV AFTER MEDS AND BLOOD DRAWS; Start 09/25/21 at 12:30 Potassium Chloride/Sodium Chloride 1,000 ml @ 75 mls/hr [id number] IV Last administered on 09/26/21at 07:00; Start 09/25/21 at 12:30; Stop 09/26/21 at 17:33; Status DC Magnesium Hydroxide (Milk Of Magnesia) 2,400 mg PRN Q12HR PRN PO CONSTIPATION; Start 09/25/21 at 12:30 Cefazolin Sodium (Ancef) 1 gm Q8H IVP Last administered on 09/26/21at 04:14; Start 09/25/21 at 18:00; Stop 09/26/21 at 10:01; Status DC Fentanyl Citrate (Fentanyl 2ml Vial) 50 mcg PRN Q2HR PRN IVP MODERATE TO SEVERE PAIN Last administered on 10/05/21at 22:46; Start 09/25/21 at 12:30 Dextrose (Dextrose 50%-Water Syringe) 12.5 gm PRN Q15MIN PRN IV SEE COMMENTS; Start 09/25/21 at 12:30; Status Cancel Dextrose (Iv Dextrose 5%) 250 ml PRN Q15MIN PRN IV SEE COMMENTS; Start 09/25/21 at 12:30; Status Cancel Gelatin (Gelfoam Size 100) 1 each STK-MED ONCE .ROUTE ; Start 09/25/21 at 06:37; Stop 09/25/21 at 14:55; Status DC Bupivacaine HCl/ Epinephrine Bitart (Sensorcain-Epi 0.5% Kit) 30 ml STK-MED ONCE .ROUTE ; Start 09/25/21 at 06:37; Stop 09/25/21 at 14:55; Status DC Ketorolac Tromethamine (Toradol Im) 60 mg STK-MED ONCE .ROUTE ; Start 09/25/21 at 06:37; Stop 09/25/21 at 14:55; Status DC Thrombin 20,000 unit STK-MED ONCE TP ; Start 09/25/21 at 06:38; Stop 09/25/21 at 14:55; Status DC Propofol (Diprivan) 200 mg STK-MED ONCE IV ; Start 09/25/21 at 05:54; Stop 09/25/21 at 14:57; Status DC Lidocaine HCl (Lidocaine Pf 2% Vial) 5 ml STK-MED ONCE .ROUTE ; Start 09/25/21 at 05:54; Stop 09/25/21 at 14:57; Status DC Ondansetron HCl (Zofran) 4 mg STK-MED ONCE .ROUTE ; Start 09/25/21 at 05:54; Stop 09/25/21 at 14:57; Status DC Phenylephrine HCl (Ramone-Synephrine Inj) 10 mg STK-MED ONCE .ROUTE ; Start 09/25/21 at 05:54; Stop 09/25/21 at 14:57; Status DC Propofol 50 ml @ As Directed STK-MED ONCE IV ; Start 09/25/21 at 05:54; Stop 09/25/21 at 14:57; Status DC Dexamethasone Sodium Phosphate (Decadron) 4 mg STK-MED ONCE .ROUTE ; Start 09/25/21 at 05:54; Stop 09/25/21 at 14:57; Status DC Fentanyl Citrate (Fentanyl 2ml Vial) 100 mcg STK-MED ONCE .ROUTE ; Start 09/25/21 at 05:54; Stop 09/25/21 at 14:57; Status DC Succinylcholine Chloride (Anectine) 200 mg STK-MED ONCE .ROUTE ; Start 09/25/21 at 05:54; Stop 09/25/21 at 14:57; Status DC Remifentanil HCl (Ultiva) 1 mg STK-MED ONCE IV ; Start 09/25/21 at 05:54; Stop 09/25/21 at 14:57; Status DC Glycopyrrolate (Robinul) 1 mg STK-MED ONCE .ROUTE ; Start 09/25/21 at 07:11; Stop 09/25/21 at 15:01; Status DC Propofol 50 ml @ As Directed STK-MED ONCE IV ; Start 09/25/21 at 08:07; Stop 09/25/21 at 15:02; Status DC Ketamine HCl (Ketamine) 50 mg STK-MED ONCE .ROUTE ; Start 09/25/21 at 08:15; Stop 09/25/21 at 15:02; Status DC Hydromorphone HCl (Dilaudid) 2 mg STK-MED ONCE .ROUTE ; Start 09/25/21 at 10:44; Stop 09/25/21 at 15:03; Status DC Fentanyl Citrate (Fentanyl 2ml Vial) 100 mcg STK-MED ONCE .ROUTE ; Start 09/25/21 at 13:26; Stop 09/25/21 at 15:04; Status DC Morphine Sulfate (Morphine Sulfate) 2 mg STK-MED ONCE .ROUTE ; Start 09/25/21 at 14:04; Stop 09/25/21 at 15:05; Status DC Hydromorphone HCl (Dilaudid) 2 mg STK-MED ONCE .ROUTE ; Start 09/25/21 at 14:54; Stop 09/25/21 at 15:06; Status DC Menthol/Methyl Salicylate (Bengay Greaseless Cream) 1 crispin PRN Q30MIN PRN TP MUSCLE PAIN Last administered on 10/02/21at 21:03; Start 09/25/21 at 18:45 Mupirocin (Bactroban) 1 crispin BID NS Last administered on 10/12/21at 21:09; Start 09/26/21 at 09:00; Stop 10/13/21 at 07:56; Status DC Dexamethasone Sodium Phosphate (Decadron) 10 mg 1X ONCE IVP Last administered on 09/26/21at 07:31; Start 09/26/21 at 07:30; Stop 09/26/21 at 07:31; Status DC Cefazolin Sodium 1 gm/Sodium Chloride 1,000 ml @ 1,000 mls/hr 1X ONCE IRR Last administered on 09/26/21at 11:52; Start 09/26/21 at 10:30; Stop 09/26/21 at 11:29; Status DC Cefazolin Sodium (Ancef) 1 gm STK-MED ONCE IVP ; Start 09/26/21 at 10:05; Stop 09/26/21 at 10:06; Status DC Lidocaine HCl (Lidocaine Pf 2% Vial) 5 ml STK-MED ONCE .ROUTE ; Start 09/26/21 at 10:18; Stop 09/26/21 at 10:18; Status DC Ondansetron HCl (Zofran) 4 mg STK-MED ONCE .ROUTE ; Start 09/26/21 at 10:18; Stop 09/26/21 at 10:18; Status DC Propofol (Diprivan) 200 mg STK-MED ONCE IV ; Start 09/26/21 at 10:18; Stop 09/26/21 at 10:19; Status DC Dexamethasone Sodium Phosphate (Decadron) 4 mg STK-MED ONCE .ROUTE ; Start 09/26/21 at 10:18; Stop 09/26/21 at 10:19; Status DC Sevoflurane (Ultane) 30 ml STK-MED ONCE IH ; Start 09/26/21 at 10:18; Stop 09/26/21 at 10:19; Status DC Fentanyl Citrate (Fentanyl 2ml Vial) 100 mcg STK-MED ONCE .ROUTE ; Start 09/26/21 at 10:19; Stop 09/26/21 at 10:19; Status DC Rocuronium [place] (Zemuron) 50 mg STK-MED ONCE .ROUTE ; Start 09/26/21 at 10:19; Stop 09/26/21 at 10:19; Status DC Insulin Human Lispro (HumaLOG VIAL for OP,RR ONLY) 0-10 units PRN Q1HR PRN SQ PER PROTOCOL Last administered on 09/26/21at 15:11; Start 09/26/21 at 10:30; Stop 09/26/21 at 18:00; Status DC Sugammadex Sodium (Bridion) 200 mg 1X ONCE IVP Last administered on 09/26/21at 10:30; Start 09/26/21 at 10:30; Stop 09/26/21 at 10:31; Status DC Gelatin (Gelfoam Size 100) 1 each STK-MED ONCE .ROUTE Last administered on 09/26/21at 11:52; Start 09/26/21 at 10:30; Stop 09/26/21 at 10:30; Status DC Bupivacaine HCl/ Epinephrine Bitart (Sensorcain-Epi 0.5% Kit) 30 ml STK-MED ONCE .ROUTE ; Start 09/26/21 at 10:30; Stop 09/26/21 at 10:30; Status DC Ketorolac Tromethamine (Toradol Im) 60 mg STK-MED ONCE .ROUTE ; Start 09/26/21 at 10:30; Stop 09/26/21 at 10:30; Status DC Thrombin 20,000 unit STK-MED ONCE TP Last administered on 09/26/21at 11:52; Start 09/26/21 at 10:30; Stop 09/26/21 at 10:31; Status DC Cefazolin Sodium/ Dextrose 50 ml @ As Directed STK-MED ONCE IV ; Start 09/26/21 at 10:32; Stop 09/26/21 at 10:32; Status DC Vancomycin HCl 1 gm/Sodium Chloride 250 ml @ 250 mls/hr PREOP PRN PRN IV PRIOR TO PROCEDURE; Start 09/26/21 at 10:45; Stop 09/26/21 at 14:00; Status DC Cefazolin Sodium/ Dextrose 50 ml @ 100 mls/hr 1X ONCE IV Last administered on 09/26/21at 11:00; Start 09/26/21 at 11:00; Stop 09/26/21 at 11:29; Status DC Dexamethasone Sodium Phosphate (Decadron) 4 mg STK-MED ONCE .ROUTE ; Start 09/26/21 at 11:04; Stop 09/26/21 at 11:04; Status DC Glycopyrrolate (Robinul) 1 mg STK-MED ONCE .ROUTE ; Start 09/26/21 at 11:04; Stop 09/26/21 at 11:04; Status DC Hydromorphone HCl (Dilaudid) 2 mg STK-MED ONCE .ROUTE ; Start 09/26/21 at 11:56; Stop 09/26/21 at 11:56; Status DC Fentanyl Citrate (Fentanyl 2ml Vial) 25 mcg PRN Q5MIN PRN IVP MILD PAIN 1-3; Start 09/26/21 at 14:30; Stop 09/26/21 at 18:15; Status DC Fentanyl Citrate (Fentanyl 2ml Vial) 50 mcg PRN Q5MIN PRN IVP MODERATE PAIN 4- 6; Start 09/26/21 at 14:30; Stop 09/26/21 at 18:15; Status DC Morphine Sulfate (Morphine Sulfate) 1 mg PRN Q10MIN PRN IVP SEVERE PAIN 7-10; Start 09/26/21 at 14:30; Stop 09/26/21 at 18:15; Status DC Ringer's Solution 1,000 ml @ 30 mls/hr Q24H IV Last administered on 09/26/21at 15:18; Start 09/26/21 at 14:30; Stop 09/26/21 at 21:00; Status DC Hydromorphone HCl (Dilaudid) 0.5 mg PRN Q10MIN PRN IVP SEVERE PAIN 7-10, 2nd CHOICE; Start 09/26/21 at 14:30; Stop 09/26/21 at 18:15; Status DC Prochlorperazine Edisylate (Compazine) 5 mg PACU PRN PRN IVP NAUSEA, MRX1; Start 09/26/21 at 14:30; Stop 09/26/21 at 21:00; Status DC Fentanyl Citrate (Fentanyl 2ml Vial) 100 mcg STK-MED ONCE .ROUTE ; Start 09/26/21 at 14:23; Stop 09/26/21 at 14:25; Status DC Fentanyl Citrate (Fentanyl 2ml Vial) 25 mcg PRN Q5MIN PRN IVP MILD PAIN 1-3; Start 09/26/21 at 14:30; Stop 09/27/21 at 14:29; Status UNV Fentanyl Citrate (Fentanyl 2ml Vial) 50 mcg PRN Q5MIN PRN IVP MODERATE PAIN 4- 6; Start 09/26/21 at 14:30; Stop 09/27/21 at 14:29; Status UNV Morphine Sulfate (Morphine Sulfate) 1 mg PRN Q10MIN PRN IVP SEVERE PAIN 7-10; Start 09/26/21 at 14:30; Stop 09/27/21 at 14:29; Status UNV Ringer's Solution 1,000 ml @ 30 mls/hr Q24H IV ; Start 09/26/21 at 14:30; Stop 09/27/21 at 02:29; Status UNV Hydromorphone HCl (Dilaudid) 0.5 mg PRN Q10MIN PRN IVP SEVERE PAIN 7-10, 2nd CHOICE; Start 09/26/21 at 14:30; Stop 09/27/21 at 14:29; Status UNV Prochlorperazine Edisylate (Compazine) 5 mg PACU PRN PRN IVP NAUSEA, MRX1; Start 09/26/21 at 14:30; Stop 09/27/21 at 14:29; Status UNV Dexamethasone Sodium Phosphate (Decadron) 4 mg Q6HRS IVP Last administered on 09/28/21at 05:06; Start 09/26/21 at 18:00; Stop 09/28/21 at 06:00; Status DC Sodium Chloride 1,000 ml @ 100 mls/hr Q10H IV Last administered on 10/05/21at 06:41; Start 09/26/21 at 17:30; Stop 10/05/21 at 13:48; Status DC Cefazolin Sodium (Ancef) 1 gm Q8HRS IVP ; Start 09/27/21 at 06:00; Stop 09/27/21 at 05:47; Status DC Vancomycin HCl 1 gm/Sodium Chloride 250 ml @ 166.667 mls/hr 1X ONCE IV Last administered on 09/27/21at 06:27; Start 09/27/21 at 06:00; Stop 09/27/21 at 07:29; Status DC Gadoterate Meglumine (Clariscan) 19 ml 1X ONCE IVP Last administered on 09/29/21at 10:32; Start 09/29/21 at 08:15; Stop 09/29/21 at 08:17; Status DC Bisacodyl (Dulcolax Supp) 10 mg PRN DAILY PRN RI CONSTIPATION; Start 09/29/21 at 14:15 Lactulose (Lactulose) 20 gm PRN DAILY PRN PO CONSTIPATION, 2nd choice Last administered on 10/01/21at 08:35; Start 09/29/21 at 14:30 Ascorbic Acid (Vitamin C) 500 mg DAILY PO Last administered on 10/17/21at 08:52; Start 10/02/21 at 10:00 Levofloxacin/ Dextrose 100 ml @ 100 mls/hr Q24H IV Last administered on 10/02/21at 12:15; Start 10/02/21 at 12:00; Stop 10/03/21 at 08:57; Status DC Levofloxacin/ Dextrose 50 ml @ 50 mls/hr Q24H IV Last administered on 10/06/21at 15:19; Start 10/03/21 at 12:00; Stop 10/06/21 at 23:00; Status DC Lactobacillus Rhamnosus (Culturelle) 1 cap BID PO Last administered on 10/17/21at 08:52; Start 10/03/21 at 21:00 Lidocaine (Lidoderm) 1 patch QHS TP Last administered on 10/16/21at 21:26; Start 10/04/21 at 22:00 Levofloxacin (Levaquin) 250 mg DAILY06 PO Last administered on 10/11/21at 06:13; Start 10/07/21 at 06:00; Stop 10/11/21 at 12:00; Status DC Insulin Human Lispro (HumaLOG) 0-5 UNITS TIDWMEALS SQ Last administered on 10/17/21at 12:47; Start 10/12/21 at 08:00 Dextrose (Dextrose 50%-Water Syringe) 12.5 gm PRN Q15MIN PRN IV SEE COMMENTS; Start 10/11/21 at 19:00 Dextrose (Iv Dextrose 5%) 250 ml PRN Q15MIN PRN IV SEE COMMENTS; Start 10/11/21 at 19:00 Potassium Chloride (Klor-Con) 40 meq 1X ONCE PO Last administered on 10/15/21at 10:21; Start 10/15/21 at 10:30; Stop 10/15/21 at 10:31; Status DC Magnesium Sulfate 50 ml @ 25 mls/hr 1X ONCE IV Last administered on 10/15/21at 10:20; Start 10/15/21 at 10:30; Stop 10/15/21 at 12:29; Status DC Baclofen (Lioresal) 10 mg Q8HRS PO Last administered on 10/17/21at 06:02; Start 10/16/21 at 22:00; Stop 10/17/21 at 11:58; Status DC Baclofen (Lioresal) 10 mg Q6HRS PO Last administered on 10/17/21at 12:56; Start 10/17/21 at 12:00 Triamcinolone Acetonide (Kenalog-40) 40 mg 1X ONCE IM ; Start 10/17/21 at 12:15; Stop 10/17/21 at 12:16; Status DC Bupivacaine HCl (Sensorcaine-Mpf 0.25%) 10 ml 1X ONCE IJ ; Start 10/17/21 at 12:00; Stop 10/17/21 at 12:01; Status DC Active Scripts Active Dok (Docusate Sodium) 100 Mg Capsule 100 Mg PO PRN BID PRN 30 Days Tylenol (Acetaminophen) 325 Mg Tablet 650 Mg PO PRN Q4HRS PRN 30 Days Valium (Diazepam) 5 Mg Tablet 5 Mg PO TID Atorvastatin Calcium 10 Mg Tablet 10 Mg PO QHS Reported Midodrine Hcl 2.5 Mg Tablet 2.5 Mg PO PRN 1X PRN Aspirin 81 Mg Tab.chew 81 Mg PO DAILY Baclofen 10 Mg Tablet 10 Mg PO BID Lyrica (Pregabalin) 100 Mg Capsule 100 Mg PO BID 30 Days Polyethylene Glycol 3350 2,500 Gm Powder 17 Gm PO DAILY 30 Days Micatin (Miconazole Nitrate) 14 Gm Cream..g. 1 [place] TP TID Tradjenta (Linagliptin) 5 Mg Tablet 5 Mg PO DAILY Lidocaine PATCH (Lidocaine) 1 Each Adh..patch 1 Each TP DAILY REMOVE AFTER 12 HOURS Levemir (Insulin Detemir) 100 Unit/1 Ml Vial 4 Unit SQ HS Hydroxyzine Hcl 25 Mg Tablet 25 Mg PO PRN Q6HRS PRN Fluticasone Propionate Nasal [place] (Fluticasone Propionate) 16 Gm [place].susp 2 [place] NS DAILY Diclofenac Sodium 100 Gm Gel..gram. 100 Gm TP PRN TID PRN Losartan Potassium 100 Mg Tablet 25 Tab PO DAILY08 Vitals/I & O Vital Sign - Last 24 Hours 10/16/21 10/16/21 10/16/21 10/16/21 17:45 18:05 20:00 22:54 Temp 98.0 98.2 98.0 98.2 Pulse 78 73 Resp 20 20 20 B/P (MAP) 147/78 (101) 134/77 (96) Pulse Ox 95 95 O2 Delivery Room Air Room Air Room Air 10/17/21 10/17/21 10/17/21 10/17/21 03:05 08:00 08:20 08:53 Temp 98.7 98.1 98.7 98.1 Pulse 62 74 74 Resp 20 20 B/P (MAP) 128/50 (76) 132/82 (99) 132/82 Pulse Ox 96 95 O2 Delivery Room Air Room Air Room Air 10/17/21 10/17/21 10/17/21 10:59 11:09 14:56 Temp 98.9 98.4 98.9 98.4 Pulse 84 82 Resp 18 18 B/P (MAP) 137/69 (91) 137/73 (94) Pulse Ox 94 96 O2 Delivery Room Air Room Air Room Air Intake and Output 10/16/21 10/16/21 10/17/21 15:00 23:00 07:00 Intake Total 440 ml 200 ml Output Total 900 ml 350 ml Balance -460 ml -150 ml Justifications for Admission Other Justification uncontrolled diabetes TODD RIVERA [employer]ER Oct 17, 2021 17:19
[2021-10-17 18:35] VITALS: BP 154/86
[2021-10-17] MEDS: ATORVASTATIN CALCIUM 10 MG TABLET. PO SCH (21:00)
[2021-10-17] MEDS: LIDOCAINE (700MG/PATCH) PATCH. TP SCH (21:00)
[2021-10-17 23:15] VITALS: BP 136/71
[2021-10-17] MEDS: hydrOXYzine 25 MG TABLET PO PRN (23:16)
[2021-10-18] MEDS: BACLOFEN 10 MG TABLET. PO SCH ×4 (06:33→23:23)
[2021-10-18 07:42] VITALS: BP 114/64
[2021-10-18] MEDS: LACTOBACILLUS RHAMNOSUS GG 1 CAPSULE. PO SCH ×2 (07:44→20:15)
[2021-10-18] MEDS: oxyCODONE IR 5 MG TABLET PO PRN ×3 (07:44→20:19)
[2021-10-18] MEDS: diazePAM 5 MG TABLET PO SCH ×4 (07:44→22:28)
[2021-10-18] MEDS: ASCORBIC ACID 500 MG TABLET PO SCH (07:44)
[2021-10-18] MEDS: PREGABALIN 50 MG CAPSULE PO SCH ×2 (07:44→20:15)
[2021-10-18] MEDS: LINAGLIPTIN 5 MG TABLET PO SCH (07:45)
[2021-10-18] MEDS: LOSARTAN POTASSIUM 25 MG TABLET. PO SCH (07:45)
[2021-10-18] MEDS: POLYETHYLENE GLYCOL 3350 17 GM PACKET. PO SCH (07:45)
[2021-10-18] MEDS: FLUTICASONE 50MCG/NASAL SPRAY 16GM BOTTLE. NS SCH (07:49)
[2021-10-18] MEDS: INSULIN LISPRO 300 UNITS/3 ML VIAL. SQ SCH ×3 (07:53→16:51)
--- NOTE | 2021-10-18 09:16 | PDOC ---
PROGRESS NOTES Date of Service DATE: 10/18/21 TIME: 09:13 Assessment Fall in July due to alcohol intoxication, he underwent cervical decompression, then returned a month ago for further cervical surgery, developed epidural hematoma, now has a C6 motor spinal level, no sensory spinal level. Spasticity due to above, better with higher dose of baclofen along with pregabalin and Valium. He is also on narcotics analgesics. Diabetic neuropathy History of syncope History of transient ischemic attack related to hypertension Plan Agree with current management by Dr. Pineda I will follow along. Subjective He slept much better last night but had return of spasms this morning, now they have abated Objective Vital Signs Date Time Temp Pulse Resp B/P (MAP) Pulse Ox O2 Delivery O2 Flow Rate FiO2 10/18/21 07:45 61 114/64 10/18/21 07:44 Room Air 10/18/21 07:42 97.9 16 97 97.9 10/17/21 20:00 2.0 Intake and Output 10/18/21 07:00 Intake Total 860 ml Output Total 2100 ml Balance -1240 ml Intake Oral 860 ml Output Urine Total 2100 ml PHYSICAL EXAM Asleep when I walk in the room, arouses easily. Oriented to time, place and person. PERRL. EOMI. CN: no focal findings. Muscle tone: normal. Muscle strength: 0/5 legs, 3/5 distal arms, 4/5 left shoulder, 5/5 right shoulder DTR: 1+ Plantar reflex: Silent Gait: not examined Sensory exam: Stocking loss. No cerebellar signs elicited. Review of Relevant I have reviewed the following items michelle (where applicable) has been applied. Labs Laboratory Tests Test 10/16/21 12:48 10/16/21 16:51 10/16/21 21:14 10/17/21 07:06 Glucose (Fingerstick) 148 mg/dL (70-99) 156 mg/dL (70-99) 136 mg/dL (70-99) 127 mg/dL (70-99) Test 10/17/21 11:55 10/17/21 14:26 10/17/21 20:31 10/18/21 07:51 Glucose (Fingerstick) 163 mg/dL (70-99) 167 mg/dL (70-99) 126 mg/dL (70-99) White Blood Count 10.6 x10^3/uL (4.0-11.0) Red Blood Count 3.63 x10^6/uL (4.30-5.70) Hemoglobin 10.0 g/dL (13.0-17.5) Hematocrit 31.3 % (39.0-53.0) Mean Corpuscular Volume 86 fL (79-100) Mean Corpuscular Hemoglobin 28 pg (25-35) Mean Corpuscular Hemoglobin Concent 32 g/dL (31-37) Red Cell Distribution Width 15.3 % (11.5-14.5) Platelet Count 279 x10^3/uL (140-400) Neutrophils (%) (Auto) 74 % (31-73) Lymphocytes (%) (Auto) 15 % (24-48) Monocytes (%) (Auto) 8 % (0-9) Eosinophils (%) (Auto) 2 % (0-3) Basophils (%) (Auto) 1 % (0-3) Neutrophils # (Auto) 7.8 x10^3/uL (1.8-7.7) Lymphocytes # (Auto) 1.6 x10^3/uL (1.0-4.8) Monocytes # (Auto) 0.9 x10^3/uL (0.0-1.1) Eosinophils # (Auto) 0.2 x10^3/uL (0.0-0.7) Basophils # (Auto) 0.1 x10^3/uL (0.0-0.2) Sodium Level 143 mmol/L (136-145) Potassium Level 3.6 mmol/L (3.5-5.1) Chloride Level 106 mmol/L (98-107) Carbon Dioxide Level 26 mmol/L (21-32) Anion Gap 11 (6-14) Blood Urea Nitrogen 10 mg/dL (8-26) Creatinine 0.8 mg/dL (0.7-1.3) Estimated GFR (Cockcroft-Gault) 118.9 Glucose Level 173 mg/dL (70-99) Calcium Level 8.2 mg/dL (8.5-10.1) Magnesium Level 1.6 mg/dL (1.8-2.4) Laboratory Tests Test 10/17/21 11:55 10/17/21 14:26 10/17/21 20:31 10/18/21 07:51 Glucose (Fingerstick) 163 mg/dL (70-99) 167 mg/dL (70-99) 126 mg/dL (70-99) White Blood Count 10.6 x10^3/uL (4.0-11.0) Red Blood Count 3.63 x10^6/uL (4.30-5.70) Hemoglobin 10.0 g/dL (13.0-17.5) Hematocrit 31.3 % (39.0-53.0) Mean Corpuscular Volume 86 fL (79-100) Mean Corpuscular Hemoglobin 28 pg (25-35) Mean Corpuscular Hemoglobin Concent 32 g/dL (31-37) Red Cell Distribution Width 15.3 % (11.5-14.5) Platelet Count 279 x10^3/uL (140-400) Neutrophils (%) (Auto) 74 % (31-73) Lymphocytes (%) (Auto) 15 % (24-48) Monocytes (%) (Auto) 8 % (0-9) Eosinophils (%) (Auto) 2 % (0-3) Basophils (%) (Auto) 1 % (0-3) Neutrophils # (Auto) 7.8 x10^3/uL (1.8-7.7) Lymphocytes # (Auto) 1.6 x10^3/uL (1.0-4.8) Monocytes # (Auto) 0.9 x10^3/uL (0.0-1.1) Eosinophils # (Auto) 0.2 x10^3/uL (0.0-0.7) Basophils # (Auto) 0.1 x10^3/uL (0.0-0.2) Sodium Level 143 mmol/L (136-145) Potassium Level 3.6 mmol/L (3.5-5.1) Chloride Level 106 mmol/L (98-107) Carbon Dioxide Level 26 mmol/L (21-32) Anion Gap 11 (6-14) Blood Urea Nitrogen 10 mg/dL (8-26) Creatinine 0.8 mg/dL (0.7-1.3) Estimated GFR (Cockcroft-Gault) 118.9 Glucose Level 173 mg/dL (70-99) Calcium Level 8.2 mg/dL (8.5-10.1) Magnesium Level 1.6 mg/dL (1.8-2.4) Microbiology 10/01/21 Urine Culture - Final, Complete Escherichia Coli Escherichia Coli#2 Medications Current Medications Fentanyl Citrate (Fentanyl 2ml Vial) 25 mcg PRN Q5MIN PRN IVP MILD PAIN 1-3; Start 09/25/21 at 06:00; Stop 09/25/21 at 20:00; Status DC Fentanyl Citrate (Fentanyl 2ml Vial) 50 mcg PRN Q5MIN PRN IVP MODERATE PAIN 4-6 Last administered on 09/25/21at 13:48; Start 09/25/21 at 06:00; Stop 09/25/21 at 20:00; Status DC Morphine Sulfate (Morphine Sulfate) 1 mg PRN Q10MIN PRN IVP SEVERE PAIN 7-10 Last administered on 09/25/21at 14:21; Start 09/25/21 at 06:00; Stop 09/25/21 at 20:00; Status DC Ringer's Solution 1,000 ml @ 30 mls/hr Q24H IV Last administered on 09/25/21at 12:54; Start 09/25/21 at 06:00; Stop 09/25/21 at 17:59; Status DC Hydromorphone HCl (Dilaudid) 0.5 mg PRN Q10MIN PRN IVP SEVERE PAIN 7-10, 2nd CHOICE Last administered on 09/25/21at 16:53; Start 09/25/21 at 06:00; Stop 09/25/21 at 20:00; Status DC Prochlorperazine Edisylate (Compazine) 5 mg PACU PRN PRN IVP NAUSEA, MRX1; Start 09/25/21 at 06:00; Stop 09/25/21 at 20:00; Status DC Cefazolin Sodium 1 gm/Sodium Chloride 1,000 ml @ 1,000 mls/hr 1X ONCE IRR Last administered on 09/25/21at 10:14; Start 09/25/21 at 06:00; Stop 09/25/21 at 06:59; Status DC Cefazolin Sodium/ Dextrose 50 ml @ 100 mls/hr 1X PREOP PRN IV PRIOR TO PROCEDURE Last administered on 09/25/21at 09:30; Start 09/25/21 at 06:00; Stop 09/25/21 at 13:39; Status DC Insulin Human Lispro (HumaLOG VIAL for OP,RR ONLY) 0-10 units PRN Q1HR PRN SQ PER PROTOCOL Last administered on 09/25/21at 17:01; Start 09/25/21 at 07:00; Stop 09/25/21 at 18:00; Status DC Bupivacaine HCl/ Epinephrine Bitart (Sensorcain-Epi 0.5% Kit) 30 ml STK-MED ONCE INJ Last administered on 09/25/21at 10:14; Start 09/25/21 at 10:14; Stop 09/25/21 at 10:30; Status DC Ketorolac Tromethamine (Toradol Im) 60 mg STK-MED ONCE INJ Last administered on 09/25/21at 10:14; Start 09/25/21 at 10:14; Stop 09/25/21 at 10:30; Status DC Thrombin 20,000 unit STK-MED ONCE TP Last administered on 09/25/21at 10:14; Start 09/25/21 at 10:14; Stop 09/25/21 at 10:30; Status DC Gelatin (Gelfoam Size 100) 1 each STK-MED ONCE TP Last administered on 09/25/21at 10:14; Start 09/25/21 at 10:14; Stop 09/25/21 at 10:30; Status DC Acetaminophen (Tylenol) 650 mg PRN Q4HRS PRN PO TEMP OVER 100.4F OR MILD PAIN Last administered on 10/16/21at 04:15; Start 09/25/21 at 12:30 Aspirin (Aspirin Chewable) 81 mg DAILY PO Last administered on 09/26/21at 08:30; Start 09/26/21 at 09:00; Stop 09/28/21 at 17:19; Status DC Atorvastatin Calcium (Lipitor) 10 mg QHS PO Last administered on 10/17/21at 21:00; Start 09/25/21 at 21:00 Baclofen (Lioresal) 10 mg BID PO Last administered on 10/16/21at 08:26; Start 09/25/21 at 21:00; Stop 10/16/21 at 13:21; Status DC Diazepam (Valium) 5 mg TID PO Last administered on 10/18/21at 07:44; Start 09/25/21 at 14:00 Docusate Sodium (Colace) 100 mg PRN BID PRN PO HARD STOOLS Last administered on 10/15/21 10:22; Start 09/25/21 at 12:30 Fluticasone Propionate (Flonase) 2 spray DAILY NS Last administered on 10/17/21 12:58; Start 09/26/21 at 09:00 Hydroxyzine HCl (Atarax) 25 mg PRN Q6HRS PRN PO Itching (2ND Choice) Last administered on 10/17/21 23:16; Start 09/25/21 at 12:30 Lidocaine (Lidoderm) 1 patch QHS TP Last administered on 10/03/21 23:31; Start 09/25/21 at 20:00; Stop 10/05/21 at 01:01; Status DC Linagliptin (Tradjenta) 5 mg DAILY PO Last administered on 10/18/21 07:45; Start 09/25/21 at 13:00 Miconazole Nitrate (Monistat-Derm) 1 crispin TID TP Last administered on 10/04/21at 20:08; Start 09/25/21 at 21:00; Stop 10/05/21 at 13:23; Status DC Midodrine (Proamatine) 2.5 mg PRN 1X PRN PO hypotension Last administered on 09/27/21 08:56; Start 09/25/21 at 12:30 Oxycodone HCl (Roxicodone) 10 mg PRN Q6HRS PRN PO MODERATE-SEVERE PAIN Last administered on 10/18/21 07:44; Start 09/25/21 at 12:30 Diclofenac Sodium (Voltaren) 1 crispin PRN TID PRN TP PAIN CONTROL; Start 09/25/21 at 13:15; Stop 09/25/21 at 18:37; Status DC Insulin Glargine (Lantus Syringe) 4 unit QHS SQ Last administered on 10/17/21 21:00; Start 09/25/21 at 21:00 Losartan Potassium (Cozaar) 25 mg DAILY08 PO Last administered on 10/18/21 07:45; Start 09/26/21 at 08:00 Polyethylene Glycol (miraLAX PACKET) 17 gm DAILY PO Last administered on 10/13/21 08:53; Start 09/25/21 at 14:00 Pregabalin (Lyrica) 100 mg BID PO Last administered on 10/18/21at 07:44; Start 09/25/21 at 21:00 Acetaminophen (Tylenol) 650 mg PRN Q6HRS PRN PO MILD PAIN / TEMP > 100.3'F; Start 09/25/21 at 12:30; Status Cancel Al Hydroxide/Mg Hydroxide (Mylanta Plus Xs) 30 ml PRN Q3HRS PRN PO HEARTBURN / GAS; Start 09/25/21 at 12:30 Calcium Carbonate/ Glycine (Tums) 500 mg PRN Q3HRS PRN PO INDIGESTION; Start 09/25/21 at 12:30 Diphenhydramine HCl (Benadryl) 25 mg PRN Q6HRS PRN PO ITCHING (1ST CHOICE); Start 09/25/21 at 12:30 Naloxone HCl (Narcan) 0.1 mg PRN Q2MIN PRN IV SEE COMMENTS; Start 09/25/21 at 12:30 Sodium Chloride (Normal Saline Flush) 3 ml QSHIFT PRN IV AFTER MEDS AND BLOOD DRAWS; Start 09/25/21 at 12:30 Potassium Chloride/Sodium Chloride 1,000 ml @ 75 mls/hr [id number] IV Last administered on 09/26/21at 07:00; Start 09/25/21 at 12:30; Stop 09/26/21 at 17:33; Status DC Magnesium Hydroxide (Milk Of Magnesia) 2,400 mg PRN Q12HR PRN PO CONSTIPATION; Start 09/25/21 at 12:30 Cefazolin Sodium (Ancef) 1 gm Q8H IVP Last administered on 09/26/21at 04:14; Start 09/25/21 at 18:00; Stop 09/26/21 at 10:01; Status DC Fentanyl Citrate (Fentanyl 2ml Vial) 50 mcg PRN Q2HR PRN IVP MODERATE TO SEVERE PAIN Last administered on 10/05/21at 22:46; Start 09/25/21 at 12:30 Dextrose (Dextrose 50%-Water Syringe) 12.5 gm PRN Q15MIN PRN IV SEE COMMENTS; Start 09/25/21 at 12:30; Status Cancel Dextrose (Iv Dextrose 5%) 250 ml PRN Q15MIN PRN IV SEE COMMENTS; Start 09/25/21 at 12:30; Status Cancel Gelatin (Gelfoam Size 100) 1 each STK-MED ONCE .ROUTE ; Start 09/25/21 at 06:37; Stop 09/25/21 at 14:55; Status DC Bupivacaine HCl/ Epinephrine Bitart (Sensorcain-Epi 0.5% Kit) 30 ml STK-MED ONCE .ROUTE ; Start 09/25/21 at 06:37; Stop 09/25/21 at 14:55; Status DC Ketorolac Tromethamine (Toradol Im) 60 mg STK-MED ONCE .ROUTE ; Start 09/25/21 at 06:37; Stop 09/25/21 at 14:55; Status DC Thrombin 20,000 unit STK-MED ONCE TP ; Start 09/25/21 at 06:38; Stop 09/25/21 at 14:55; Status DC Propofol (Diprivan) 200 mg STK-MED ONCE IV ; Start 09/25/21 at 05:54; Stop 09/25/21 at 14:57; Status DC Lidocaine HCl (Lidocaine Pf 2% Vial) 5 ml STK-MED ONCE .ROUTE ; Start 09/25/21 at 05:54; Stop 09/25/21 at 14:57; Status DC Ondansetron HCl (Zofran) 4 mg STK-MED ONCE .ROUTE ; Start 09/25/21 at 05:54; Stop 09/25/21 at 14:57; Status DC Phenylephrine HCl (Ramone-Synephrine Inj) 10 mg STK-MED ONCE .ROUTE ; Start 09/25/21 at 05:54; Stop 09/25/21 at 14:57; Status DC Propofol 50 ml @ As Directed STK-MED ONCE IV ; Start 09/25/21 at 05:54; Stop 09/25/21 at 14:57; Status DC Dexamethasone Sodium Phosphate (Decadron) 4 mg STK-MED ONCE .ROUTE ; Start 09/25/21 at 05:54; Stop 09/25/21 at 14:57; Status DC Fentanyl Citrate (Fentanyl 2ml Vial) 100 mcg STK-MED ONCE .ROUTE ; Start 09/25/21 at 05:54; Stop 09/25/21 at 14:57; Status DC Succinylcholine Chloride (Anectine) 200 mg STK-MED ONCE .ROUTE ; Start 09/25/21 at 05:54; Stop 09/25/21 at 14:57; Status DC Remifentanil HCl (Ultiva) 1 mg STK-MED ONCE IV ; Start 09/25/21 at 05:54; Stop 09/25/21 at 14:57; Status DC Glycopyrrolate (Robinul) 1 mg STK-MED ONCE .ROUTE ; Start 09/25/21 at 07:11; Stop 09/25/21 at 15:01; Status DC Propofol 50 ml @ As Directed STK-MED ONCE IV ; Start 09/25/21 at 08:07; Stop 09/25/21 at 15:02; Status DC Ketamine HCl (Ketamine) 50 mg STK-MED ONCE .ROUTE ; Start 09/25/21 at 08:15; Stop 09/25/21 at 15:02; Status DC Hydromorphone HCl (Dilaudid) 2 mg STK-MED ONCE .ROUTE ; Start 09/25/21 at 10:44; Stop 09/25/21 at 15:03; Status DC Fentanyl Citrate (Fentanyl 2ml Vial) 100 mcg STK-MED ONCE .ROUTE ; Start 09/25/21 at 13:26; Stop 09/25/21 at 15:04; Status DC Morphine Sulfate (Morphine Sulfate) 2 mg STK-MED ONCE .ROUTE ; Start 09/25/21 at 14:04; Stop 09/25/21 at 15:05; Status DC Hydromorphone HCl (Dilaudid) 2 mg STK-MED ONCE .ROUTE ; Start 09/25/21 at 14:54; Stop 09/25/21 at 15:06; Status DC Menthol/Methyl Salicylate (B[place] Greaseless Cream) 1 crispin PRN Q30MIN PRN TP MUSCLE PAIN Last administered on 10/02/21at 21:03; Start 09/25/21 at 18:45 Mupirocin (Bactroban) 1 crispin BID NS Last administered on 10/12/21at 21:09; Start 09/26/21 at 09:00; Stop 10/13/21 at 07:56; Status DC Dexamethasone Sodium Phosphate (Decadron) 10 mg 1X ONCE IVP Last administered on 09/26/21at 07:31; Start 09/26/21 at 07:30; Stop 09/26/21 at 07:31; Status DC Cefazolin Sodium 1 gm/Sodium Chloride 1,000 ml @ 1,000 mls/hr 1X ONCE IRR Last administered on 09/26/21at 11:52; Start 09/26/21 at 10:30; Stop 09/26/21 at 11:29; Status DC Cefazolin Sodium (Ancef) 1 gm STK-MED ONCE IVP ; Start 09/26/21 at 10:05; Stop 09/26/21 at 10:06; Status DC Lidocaine HCl (Lidocaine Pf 2% Vial) 5 ml STK-MED ONCE .ROUTE ; Start 09/26/21 at 10:18; Stop 09/26/21 at 10:18; Status DC Ondansetron HCl (Zofran) 4 mg STK-MED ONCE .ROUTE ; Start 09/26/21 at 10:18; Stop 09/26/21 at 10:18; Status DC Propofol (Diprivan) 200 mg STK-MED ONCE IV ; Start 09/26/21 at 10:18; Stop 09/26/21 at 10:19; Status DC Dexamethasone Sodium Phosphate (Decadron) 4 mg STK-MED ONCE .ROUTE ; Start 09/26/21 at 10:18; Stop 09/26/21 at 10:19; Status DC Sevoflurane (Ultane) 30 ml STK-MED ONCE IH ; Start 09/26/21 at 10:18; Stop 09/26/21 at 10:19; Status DC Fentanyl Citrate (Fentanyl 2ml Vial) 100 mcg STK-MED ONCE .ROUTE ; Start 09/26/21 at 10:19; Stop 09/26/21 at 10:19; Status DC Rocuronium [place] (Zemuron) 50 mg STK-MED ONCE .ROUTE ; Start 09/26/21 at 10:19; Stop 09/26/21 at 10:19; Status DC Insulin Human Lispro (HumaLOG VIAL for OP,RR ONLY) 0-10 units PRN Q1HR PRN SQ PER PROTOCOL Last administered on 09/26/21at 15:11; Start 09/26/21 at 10:30; Stop 09/26/21 at 18:00; Status DC Sugammadex Sodium (Bridion) 200 mg 1X ONCE IVP Last administered on 09/26/21at 10:30; Start 09/26/21 at 10:30; Stop 09/26/21 at 10:31; Status DC Gelatin (Gelfoam Size 100) 1 each STK-MED ONCE .ROUTE Last administered on 09/26/21at 11:52; Start 09/26/21 at 10:30; Stop 09/26/21 at 10:30; Status DC Bupivacaine HCl/ Epinephrine Bitart (Sensorcain-Epi 0.5% Kit) 30 ml STK-MED ONCE .ROUTE ; Start 09/26/21 at 10:30; Stop 09/26/21 at 10:30; Status DC Ketorolac Tromethamine (Toradol Im) 60 mg STK-MED ONCE .ROUTE ; Start 09/26/21 at 10:30; Stop 09/26/21 at 10:30; Status DC Thrombin 20,000 unit STK-MED ONCE TP Last administered on 09/26/21at 11:52; Start 09/26/21 at 10:30; Stop 09/26/21 at 10:31; Status DC Cefazolin Sodium/ Dextrose 50 ml @ As Directed STK-MED ONCE IV ; Start 09/26/21 at 10:32; Stop 09/26/21 at 10:32; Status DC Vancomycin HCl 1 gm/Sodium Chloride 250 ml @ 250 mls/hr PREOP PRN PRN IV PRIOR TO PROCEDURE; Start 09/26/21 at 10:45; Stop 09/26/21 at 14:00; Status DC Cefazolin Sodium/ Dextrose 50 ml @ 100 mls/hr 1X ONCE IV Last administered on 09/26/21at 11:00; Start 09/26/21 at 11:00; Stop 09/26/21 at 11:29; Status DC Dexamethasone Sodium Phosphate (Decadron) 4 mg STK-MED ONCE .ROUTE ; Start 09/26/21 at 11:04; Stop 09/26/21 at 11:04; Status DC Glycopyrrolate (Robinul) 1 mg STK-MED ONCE .ROUTE ; Start 09/26/21 at 11:04; Stop 09/26/21 at 11:04; Status DC Hydromorphone HCl (Dilaudid) 2 mg STK-MED ONCE .ROUTE ; Start 09/26/21 at 11:56; Stop 09/26/21 at 11:56; Status DC Fentanyl Citrate (Fentanyl 2ml Vial) 25 mcg PRN Q5MIN PRN IVP MILD PAIN 1-3; Start 09/26/21 at 14:30; Stop 09/26/21 at 18:15; Status DC Fentanyl Citrate (Fentanyl 2ml Vial) 50 mcg PRN Q5MIN PRN IVP MODERATE PAIN 4- 6; Start 09/26/21 at 14:30; Stop 09/26/21 at 18:15; Status DC Morphine Sulfate (Morphine Sulfate) 1 mg PRN Q10MIN PRN IVP SEVERE PAIN 7-10; Start 09/26/21 at 14:30; Stop 09/26/21 at 18:15; Status DC Ringer's Solution 1,000 ml @ 30 mls/hr Q24H IV Last administered on 09/26/21at 15:18; Start 09/26/21 at 14:30; Stop 09/26/21 at 21:00; Status DC Hydromorphone HCl (Dilaudid) 0.5 mg PRN Q10MIN PRN IVP SEVERE PAIN 7-10, 2nd CHOICE; Start 09/26/21 at 14:30; Stop 09/26/21 at 18:15; Status DC Prochlorperazine Edisylate (Compazine) 5 mg PACU PRN PRN IVP NAUSEA, MRX1; Start 09/26/21 at 14:30; Stop 09/26/21 at 21:00; Status DC Fentanyl Citrate (Fentanyl 2ml Vial) 100 mcg STK-MED ONCE .ROUTE ; Start 09/26/21 at 14:23; Stop 09/26/21 at 14:25; Status DC Fentanyl Citrate (Fentanyl 2ml Vial) 25 mcg PRN Q5MIN PRN IVP MILD PAIN 1-3; Start 09/26/21 at 14:30; Stop 09/27/21 at 14:29; Status UNV Fentanyl Citrate (Fentanyl 2ml Vial) 50 mcg PRN Q5MIN PRN IVP MODERATE PAIN 4- 6; Start 09/26/21 at 14:30; Stop 09/27/21 at 14:29; Status UNV Morphine Sulfate (Morphine Sulfate) 1 mg PRN Q10MIN PRN IVP SEVERE PAIN 7-10; Start 09/26/21 at 14:30; Stop 09/27/21 at 14:29; Status UNV Ringer's Solution 1,000 ml @ 30 mls/hr Q24H IV ; Start 09/26/21 at 14:30; Stop 09/27/21 at 02:29; Status UNV Hydromorphone HCl (Dilaudid) 0.5 mg PRN Q10MIN PRN IVP SEVERE PAIN 7-10, 2nd CHOICE; Start 09/26/21 at 14:30; Stop 09/27/21 at 14:29; Status UNV Prochlorperazine Edisylate (Compazine) 5 mg PACU PRN PRN IVP NAUSEA, MRX1; Start 09/26/21 at 14:30; Stop 09/27/21 at 14:29; Status UNV Dexamethasone Sodium Phosphate (Decadron) 4 mg Q6HRS IVP Last administered on 09/28/21at 05:06; Start 09/26/21 at 18:00; Stop 09/28/21 at 06:00; Status DC Sodium Chloride 1,000 ml @ 100 mls/hr Q10H IV Last administered on 10/05/21at 06:41; Start 09/26/21 at 17:30; Stop 10/05/21 at 13:48; Status DC Cefazolin Sodium (Ancef) 1 gm Q8HRS IVP ; Start 09/27/21 at 06:00; Stop 09/27/21 at 05:47; Status DC Vancomycin HCl 1 gm/Sodium Chloride 250 ml @ 166.667 mls/hr 1X ONCE IV Last administered on 09/27/21at 06:27; Start 09/27/21 at 06:00; Stop 09/27/21 at 07:29; Status DC Gadoterate Meglumine (Clariscan) 19 ml 1X ONCE IVP Last administered on 09/29/21at 10:32; Start 09/29/21 at 08:15; Stop 09/29/21 at 08:17; Status DC Bisacodyl (Dulcolax Supp) 10 mg PRN DAILY PRN PA CONSTIPATION; Start 09/29/21 at 14:15 Lactulose (Lactulose) 20 gm PRN DAILY PRN PO CONSTIPATION, 2nd choice Last administered on 10/01/21at 08:35; Start 09/29/21 at 14:30 Ascorbic Acid (Vitamin C) 500 mg DAILY PO Last administered on 10/18/21at 07:44; Start 10/02/21 at 10:00 Levofloxacin/ Dextrose 100 ml @ 100 mls/hr Q24H IV Last administered on 10/02/21at 12:15; Start 10/02/21 at 12:00; Stop 10/03/21 at 08:57; Status DC Levofloxacin/ Dextrose 50 ml @ 50 mls/hr Q24H IV Last administered on 10/06/21at 15:19; Start 10/03/21 at 12:00; Stop 10/06/21 at 23:00; Status DC Lactobacillus Rhamnosus (Culturelle) 1 cap BID PO Last administered on 10/18/21at 07:44; Start 10/03/21 at 21:00 Lidocaine (Lidoderm) 1 patch QHS TP Last administered on 10/17/21at 21:00; Start 10/04/21 at 22:00 Levofloxacin (Levaquin) 250 mg DAILY06 PO Last administered on 10/11/21at 06:13; Start 10/07/21 at 06:00; Stop 10/11/21 at 12:00; Status DC Insulin Human Lispro (HumaLOG) 0-5 UNITS TIDWMEALS SQ Last administered on 10/17/21at 12:47; Start 10/12/21 at 08:00 Dextrose (Dextrose 50%-Water Syringe) 12.5 gm PRN Q15MIN PRN IV SEE COMMENTS; Start 10/11/21 at 19:00 Dextrose (Iv Dextrose 5%) 250 ml PRN Q15MIN PRN IV SEE COMMENTS; Start 10/11/21 at 19:00 Potassium Chloride (Klor-Con) 40 meq 1X ONCE PO Last administered on 10/15/21at 10:21; Start 10/15/21 at 10:30; Stop 10/15/21 at 10:31; Status DC Magnesium Sulfate 50 ml @ 25 mls/hr 1X ONCE IV Last administered on 10/15/21at 10:20; Start 10/15/21 at 10:30; Stop 10/15/21 at 12:29; Status DC Baclofen (Lioresal) 10 mg Q8HRS PO Last administered on 10/17/21at 06:02; Start 10/16/21 at 22:00; Stop 10/17/21 at 11:58; Status DC Baclofen (Lioresal) 10 mg Q6HRS PO Last administered on 10/18/21at 06:33; Start 10/17/21 at 12:00 Triamcinolone Acetonide (Kenalog-40) 40 mg 1X ONCE IM ; Start 10/17/21 at 12:15; Stop 10/17/21 at 12:16; Status DC Bupivacaine HCl (Sensorcaine-Mpf 0.25%) 10 ml 1X ONCE IJ ; Start 10/17/21 at 12:00; Stop 10/17/21 at 12:01; Status DC Active Scripts Active Dok (Docusate Sodium) 100 Mg Capsule 100 Mg PO PRN BID PRN 30 Days Tylenol (Acetaminophen) 325 Mg Tablet 650 Mg PO PRN Q4HRS PRN 30 Days Valium (Diazepam) 5 Mg Tablet 5 Mg PO TID Atorvastatin Calcium 10 Mg Tablet 10 Mg PO QHS Reported Midodrine Hcl 2.5 Mg Tablet 2.5 Mg PO PRN 1X PRN Aspirin 81 Mg Tab.chew 81 Mg PO DAILY Baclofen 10 Mg Tablet 10 Mg PO BID Lyrica (Pregabalin) 100 Mg Capsule 100 Mg PO BID 30 Days Polyethylene Glycol 3350 2,500 Gm Powder 17 Gm PO DAILY 30 Days Micatin (Miconazole Nitrate) 14 Gm Cream..g. 1 Crispin TP TID Tradjenta (Linagliptin) 5 Mg Tablet 5 Mg PO DAILY Lidocaine PATCH (Lidocaine) 1 Each Adh..patch 1 Each TP DAILY REMOVE AFTER 12 HOURS Levemir (Insulin Detemir) 100 Unit/1 Ml Vial 4 Unit SQ HS Hydroxyzine Hcl 25 Mg Tablet 25 Mg PO PRN Q6HRS PRN Fluticasone Propionate Nasal Arjay (Fluticasone Propionate) 16 Gm Arjay.susp 2 Arjay NS DAILY Diclofenac Sodium 100 Gm Gel..gram. 100 Gm TP PRN TID PRN Losartan Potassium 100 Mg Tablet 25 Tab PO DAILY08 Vitals/I & O Vital Sign - Last 24 Hours 10/17/21 10/17/21 10/17/21 10/17/21 10:59 11:09 14:00 14:56 Temp 98.9 98.4 98.9 98.4 Pulse 84 82 Resp 18 20 18 B/P (MAP) 137/69 (91) 137/73 (94) Pulse Ox 94 96 O2 Delivery Room Air Room Air Room Air 10/17/21 10/17/21 10/17/211/22 17:45 18:35 19:00 20:00 Temp 97.7 97.7 Pulse 77 Resp 20 B/P (MAP) 154/86 (108) Pulse Ox 96 O2 Delivery Room Air Room Air Room Air Room Air O2 Flow Rate 2.0 10/17/21 10/18/21 10/18/21 10/18/21 23:15 03:00 07:42 07:44 Temp 97.9 97.9 97.9 97.9 Pulse 73 61 Resp 18 16 B/P (MAP) 136/71 (92) 114/64 (81) Pulse Ox 97 97 O2 Delivery Room Air Room Air Room Air Room Air 10/18/21 07:45 Pulse 61 B/P (MAP) 114/64 Intake and Output 10/17/21 10/17/21 10/18/21 15:00 23:00 07:00 Intake Total 360 ml 500 ml Output Total 1600 ml 500 ml Balance -1240 ml 0 ml Justicifation of Admission Dx: Justifications for Admission: Justification of Admission Dx: Yes RICH HUGGINS MD Oct 18, 2021 09:16
[2021-10-18 12:00] VITALS: BP 118/68
--- NOTE | 2021-10-18 12:35 | PDOC ---
PROGRESS NOTES Date of Service DATE: 10/18/21 TIME: 12:29 Subjective Subjective He admits less muscle spasms and right shoulder pain this AM. Objective Objective Vital Signs Date Time Temp Pulse Resp B/P (MAP) Pulse Ox O2 Delivery O2 Flow Rate FiO2 10/18/21 12:00 98.2 77 18 118/68 (85) 97 Room Air 98.2 10/17/21 20:00 2.0 Intake and Output 10/18/21 07:00 Intake Total 860 ml Output Total 2100 ml Balance -1240 ml Intake Oral 860 ml Output Urine Total 2100 ml Physical Exam Physical Exam He is alert,supine in bed and no change wiht his neurological status. Plan Plan of Care Waiting fro SNF transfer when arrangements are completed. Comment Review of Relevant I have reviewed the following items michelle (where applicable) has been applied. Labs Laboratory Tests Test 10/16/21 12:48 10/16/21 16:51 10/16/21 21:14 10/17/21 07:06 Glucose (Fingerstick) 148 mg/dL (70-99) 156 mg/dL (70-99) 136 mg/dL (70-99) 127 mg/dL (70-99) Test 10/17/21 11:55 10/17/21 14:26 10/17/21 20:31 10/18/21 07:51 Glucose (Fingerstick) 163 mg/dL (70-99) 167 mg/dL (70-99) 126 mg/dL (70-99) White Blood Count 10.6 x10^3/uL (4.0-11.0) Red Blood Count 3.63 x10^6/uL (4.30-5.70) Hemoglobin 10.0 g/dL (13.0-17.5) Hematocrit 31.3 % (39.0-53.0) Mean Corpuscular Volume 86 fL (79-100) Mean Corpuscular Hemoglobin 28 pg (25-35) Mean Corpuscular Hemoglobin Concent 32 g/dL (31-37) Red Cell Distribution Width 15.3 % (11.5-14.5) Platelet Count 279 x10^3/uL (140-400) Neutrophils (%) (Auto) 74 % (31-73) Lymphocytes (%) (Auto) 15 % (24-48) Monocytes (%) (Auto) 8 % (0-9) Eosinophils (%) (Auto) 2 % (0-3) Basophils (%) (Auto) 1 % (0-3) Neutrophils # (Auto) 7.8 x10^3/uL (1.8-7.7) Lymphocytes # (Auto) 1.6 x10^3/uL (1.0-4.8) Monocytes # (Auto) 0.9 x10^3/uL (0.0-1.1) Eosinophils # (Auto) 0.2 x10^3/uL (0.0-0.7) Basophils # (Auto) 0.1 x10^3/uL (0.0-0.2) Sodium Level 143 mmol/L (136-145) Potassium Level 3.6 mmol/L (3.5-5.1) Chloride Level 106 mmol/L (98-107) Carbon Dioxide Level 26 mmol/L (21-32) Anion Gap 11 (6-14) Blood Urea Nitrogen 10 mg/dL (8-26) Creatinine 0.8 mg/dL (0.7-1.3) Estimated GFR (Cockcroft-Gault) 118.9 Glucose Level 173 mg/dL (70-99) Calcium Level 8.2 mg/dL (8.5-10.1) Magnesium Level 1.6 mg/dL (1.8-2.4) Test 10/18/21 11:48 Glucose (Fingerstick) 182 mg/dL (70-99) Laboratory Tests Test 10/17/21 14:26 10/17/21 20:31 10/18/21 07:51 10/18/21 11:48 White Blood Count 10.6 x10^3/uL (4.0-11.0) Red Blood Count 3.63 x10^6/uL (4.30-5.70) Hemoglobin 10.0 g/dL (13.0-17.5) Hematocrit 31.3 % (39.0-53.0) Mean Corpuscular Volume 86 fL (79-100) Mean Corpuscular Hemoglobin 28 pg (25-35) Mean Corpuscular Hemoglobin Concent 32 g/dL (31-37) Red Cell Distribution Width 15.3 % (11.5-14.5) Platelet Count 279 x10^3/uL (140-400) Neutrophils (%) (Auto) 74 % (31-73) Lymphocytes (%) (Auto) 15 % (24-48) Monocytes (%) (Auto) 8 % (0-9) Eosinophils (%) (Auto) 2 % (0-3) Basophils (%) (Auto) 1 % (0-3) Neutrophils # (Auto) 7.8 x10^3/uL (1.8-7.7) Lymphocytes # (Auto) 1.6 x10^3/uL (1.0-4.8) Monocytes # (Auto) 0.9 x10^3/uL (0.0-1.1) Eosinophils # (Auto) 0.2 x10^3/uL (0.0-0.7) Basophils # (Auto) 0.1 x10^3/uL (0.0-0.2) Sodium Level 143 mmol/L (136-145) Potassium Level 3.6 mmol/L (3.5-5.1) Chloride Level 106 mmol/L (98-107) Carbon Dioxide Level 26 mmol/L (21-32) Anion Gap 11 (6-14) Blood Urea Nitrogen 10 mg/dL (8-26) Creatinine 0.8 mg/dL (0.7-1.3) Estimated GFR (Cockcroft-Gault) 118.9 Glucose Level 173 mg/dL (70-99) Calcium Level 8.2 mg/dL (8.5-10.1) Magnesium Level 1.6 mg/dL (1.8-2.4) Glucose (Fingerstick) 167 mg/dL (70-99) 126 mg/dL (70-99) 182 mg/dL (70-99) Microbiology 10/01/21 Urine Culture - Final, Complete Escherichia Coli Escherichia Coli#2 Medications Current Medications Fentanyl Citrate (Fentanyl 2ml Vial) 25 mcg PRN Q5MIN PRN IVP MILD PAIN 1-3; Start 09/25/21 at 06:00; Stop 09/25/21 at 20:00; Status DC Fentanyl Citrate (Fentanyl 2ml Vial) 50 mcg PRN Q5MIN PRN IVP MODERATE PAIN 4-6 Last administered on 09/25/21at 13:48; Start 09/25/21 at 06:00; Stop 09/25/21 at 20:00; Status DC Morphine Sulfate (Morphine Sulfate) 1 mg PRN Q10MIN PRN IVP SEVERE PAIN 7-10 Last administered on 09/25/21at 14:21; Start 09/25/21 at 06:00; Stop 09/25/21 at 20:00; Status DC Ringer's Solution 1,000 ml @ 30 mls/hr Q24H IV Last administered on 09/25/21at 12:54; Start 09/25/21 at 06:00; Stop 09/25/21 at 17:59; Status DC Hydromorphone HCl (Dilaudid) 0.5 mg PRN Q10MIN PRN IVP SEVERE PAIN 7-10, 2nd CHOICE Last administered on 09/25/21at 16:53; Start 09/25/21 at 06:00; Stop 09/25/21 at 20:00; Status DC Prochlorperazine Edisylate (Compazine) 5 mg PACU PRN PRN IVP NAUSEA, MRX1; Start 09/25/21 at 06:00; Stop 09/25/21 at 20:00; Status DC Cefazolin Sodium 1 gm/Sodium Chloride 1,000 ml @ 1,000 mls/hr 1X ONCE IRR Last administered on 09/25/21at 10:14; Start 09/25/21 at 06:00; Stop 09/25/21 at 06:59; Status DC Cefazolin Sodium/ Dextrose 50 ml @ 100 mls/hr 1X PREOP PRN IV PRIOR TO PROCEDURE Last administered on 09/25/21at 09:30; Start 09/25/21 at 06:00; Stop 09/25/21 at 13:39; Status DC Insulin Human Lispro (HumaLOG VIAL for OP,RR ONLY) 0-10 units PRN Q1HR PRN SQ PER PROTOCOL Last administered on 09/25/21at 17:01; Start 09/25/21 at 07:00; Stop 09/25/21 at 18:00; Status DC Bupivacaine HCl/ Epinephrine Bitart (Sensorcain-Epi 0.5% Kit) 30 ml STK-MED ONCE INJ Last administered on 09/25/21at 10:14; Start 09/25/21 at 10:14; Stop 09/25/21 at 10:30; Status DC Ketorolac Tromethamine (Toradol Im) 60 mg STK-MED ONCE INJ Last administered on 09/25/21 10:14; Start 09/25/21 at 10:14; Stop 09/25/21 at 10:30; Status DC Thrombin 20,000 unit STK-MED ONCE TP Last administered on 09/25/21 10:14; Start 09/25/21 at 10:14; Stop 09/25/21 at 10:30; Status DC Gelatin (Gelfoam Size 100) 1 each STK-MED ONCE TP Last administered on 09/25/21 10:14; Start 09/25/21 at 10:14; Stop 09/25/21 at 10:30; Status DC Acetaminophen (Tylenol) 650 mg PRN Q4HRS PRN PO TEMP OVER 100.4F OR MILD PAIN Last administered on 10/16/21 04:15; Start 09/25/21 at 12:30 Aspirin (Aspirin Chewable) 81 mg DAILY PO Last administered on 09/26/21 08:30; Start 09/26/21 at 09:00; Stop 09/28/21 at 17:19; Status DC Atorvastatin Calcium (Lipitor) 10 mg QHS PO Last administered on 10/17/21 21:00; Start 09/25/21 at 21:00 Baclofen (Lioresal) 10 mg BID PO Last administered on 10/16/21 08:26; Start 09/25/21 at 21:00; Stop 10/16/21 at 13:21; Status DC Diazepam (Valium) 5 mg TID PO Last administered on 10/18/21 07:44; Start 09/25/21 at 14:00 Docusate Sodium (Colace) 100 mg PRN BID PRN PO HARD STOOLS Last administered on 10/15/21 10:22; Start 09/25/21 at 12:30 Fluticasone Propionate (Flonase) 2 spray DAILY NS Last administered on 10/17/21 12:58; Start 09/26/21 at 09:00 Hydroxyzine HCl (Atarax) 25 mg PRN Q6HRS PRN PO Itching (2ND Choice) Last administered on 10/17/21 23:16; Start 09/25/21 at 12:30 Lidocaine (Lidoderm) 1 patch QHS TP Last administered on 10/03/21 23:31; Start 09/25/21 at 20:00; Stop 10/05/21 at 01:01; Status DC Linagliptin (Tradjenta) 5 mg DAILY PO Last administered on 10/18/21at 07:45; Start 09/25/21 at 13:00 Miconazole Nitrate (Monistat-Derm) 1 crispin TID TP Last administered on 10/04/21at 20:08; Start 09/25/21 at 21:00; Stop 10/05/21 at 13:23; Status DC Midodrine (Proamatine) 2.5 mg PRN 1X PRN PO hypotension Last administered on 09/27/21at 08:56; Start 09/25/21 at 12:30 Oxycodone HCl (Roxicodone) 10 mg PRN Q6HRS PRN PO MODERATE-SEVERE PAIN Last administered on 10/18/21at 07:44; Start 09/25/21 at 12:30 Diclofenac Sodium (Voltaren) 1 crispin PRN TID PRN TP PAIN CONTROL; Start 09/25/21 at 13:15; Stop 09/25/21 at 18:37; Status DC Insulin Glargine (Lantus Syringe) 4 unit QHS SQ Last administered on 10/17/21at 21:00; Start 09/25/21 at 21:00 Losartan Potassium (Cozaar) 25 mg DAILY08 PO Last administered on 10/18/21at 07:45; Start 09/26/21 at 08:00 Polyethylene Glycol (miraLAX PACKET) 17 gm DAILY PO Last administered on 10/13/21at 08:53; Start 09/25/21 at 14:00 Pregabalin (Lyrica) 100 mg BID PO Last administered on 10/18/21at 07:44; Start 09/25/21 at 21:00 Acetaminophen (Tylenol) 650 mg PRN Q6HRS PRN PO MILD PAIN / TEMP > 100.3'F; Start 09/25/21 at 12:30; Status Cancel Al Hydroxide/Mg Hydroxide (Mylanta Plus Xs) 30 ml PRN Q3HRS PRN PO HEARTBURN / GAS; Start 09/25/21 at 12:30 Calcium Carbonate/ Glycine (Tums) 500 mg PRN Q3HRS PRN PO INDIGESTION; Start 09/25/21 at 12:30 Diphenhydramine HCl (Benadryl) 25 mg PRN Q6HRS PRN PO ITCHING (1ST CHOICE); Start 09/25/21 at 12:30 Naloxone HCl (Narcan) 0.1 mg PRN Q2MIN PRN IV SEE COMMENTS; Start 09/25/21 at 12:30 Sodium Chloride (Normal Saline Flush) 3 ml QSHIFT PRN IV AFTER MEDS AND BLOOD DRAWS; Start 09/25/21 at 12:30 Potassium Chloride/Sodium Chloride 1,000 ml @ 75 mls/hr [id number] IV Last administered on 09/26/21at 07:00; Start 09/25/21 at 12:30; Stop 09/26/21 at 17:33; Status DC Magnesium Hydroxide (Milk Of Magnesia) 2,400 mg PRN Q12HR PRN PO CONSTIPATION; Start 09/25/21 at 12:30 Cefazolin Sodium (Ancef) 1 gm Q8H IVP Last administered on 09/26/21at 04:14; Start 09/25/21 at 18:00; Stop 09/26/21 at 10:01; Status DC Fentanyl Citrate (Fentanyl 2ml Vial) 50 mcg PRN Q2HR PRN IVP MODERATE TO SEVERE PAIN Last administered on 10/05/21at 22:46; Start 09/25/21 at 12:30 Dextrose (Dextrose 50%-Water Syringe) 12.5 gm PRN Q15MIN PRN IV SEE COMMENTS; Start 09/25/21 at 12:30; Status Cancel Dextrose (Iv Dextrose 5%) 250 ml PRN Q15MIN PRN IV SEE COMMENTS; Start 09/25/21 at 12:30; Status Cancel Gelatin (Gelfoam Size 100) 1 each STK-MED ONCE .ROUTE ; Start 09/25/21 at 06:37; Stop 09/25/21 at 14:55; Status DC Bupivacaine HCl/ Epinephrine Bitart (Sensorcain-Epi 0.5% Kit) 30 ml STK-MED ONCE .ROUTE ; Start 09/25/21 at 06:37; Stop 09/25/21 at 14:55; Status DC Ketorolac Tromethamine (Toradol Im) 60 mg STK-MED ONCE .ROUTE ; Start 09/25/21 at 06:37; Stop 09/25/21 at 14:55; Status DC Thrombin 20,000 unit STK-MED ONCE TP ; Start 09/25/21 at 06:38; Stop 09/25/21 at 14:55; Status DC Propofol (Diprivan) 200 mg STK-MED ONCE IV ; Start 09/25/21 at 05:54; Stop 09/25/21 at 14:57; Status DC Lidocaine HCl (Lidocaine Pf 2% Vial) 5 ml STK-MED ONCE .ROUTE ; Start 09/25/21 at 05:54; Stop 09/25/21 at 14:57; Status DC Ondansetron HCl (Zofran) 4 mg STK-MED ONCE .ROUTE ; Start 09/25/21 at 05:54; Stop 09/25/21 at 14:57; Status DC Phenylephrine HCl (Ramone-Synephrine Inj) 10 mg STK-MED ONCE .ROUTE ; Start 09/25/21 at 05:54; Stop 09/25/21 at 14:57; Status DC Propofol 50 ml @ As Directed STK-MED ONCE IV ; Start 09/25/21 at 05:54; Stop 09/25/21 at 14:57; Status DC Dexamethasone Sodium Phosphate (Decadron) 4 mg STK-MED ONCE .ROUTE ; Start 09/25/21 at 05:54; Stop 09/25/21 at 14:57; Status DC Fentanyl Citrate (Fentanyl 2ml Vial) 100 mcg STK-MED ONCE .ROUTE ; Start 09/25/21 at 05:54; Stop 09/25/21 at 14:57; Status DC Succinylcholine Chloride (Anectine) 200 mg STK-MED ONCE .ROUTE ; Start 09/25/21 at 05:54; Stop 09/25/21 at 14:57; Status DC Remifentanil HCl (Ultiva) 1 mg STK-MED ONCE IV ; Start 09/25/21 at 05:54; Stop 09/25/21 at 14:57; Status DC Glycopyrrolate (Robinul) 1 mg STK-MED ONCE .ROUTE ; Start 09/25/21 at 07:11; Stop 09/25/21 at 15:01; Status DC Propofol 50 ml @ As Directed STK-MED ONCE IV ; Start 09/25/21 at 08:07; Stop 09/25/21 at 15:02; Status DC Ketamine HCl (Ketamine) 50 mg STK-MED ONCE .ROUTE ; Start 09/25/21 at 08:15; Stop 09/25/21 at 15:02; Status DC Hydromorphone HCl (Dilaudid) 2 mg STK-MED ONCE .ROUTE ; Start 09/25/21 at 10:44; Stop 09/25/21 at 15:03; Status DC Fentanyl Citrate (Fentanyl 2ml Vial) 100 mcg STK-MED ONCE .ROUTE ; Start 09/25/21 at 13:26; Stop 09/25/21 at 15:04; Status DC Morphine Sulfate (Morphine Sulfate) 2 mg STK-MED ONCE .ROUTE ; Start 09/25/21 at 14:04; Stop 09/25/21 at 15:05; Status DC Hydromorphone HCl (Dilaudid) 2 mg STK-MED ONCE .ROUTE ; Start 09/25/21 at 14:54; Stop 09/25/21 at 15:06; Status DC Menthol/Methyl Salicylate ([place] Greaseless Cream) 1 crispin PRN Q30MIN PRN TP MUSCLE PAIN Last administered on 10/02/21at 21:03; Start 09/25/21 at 18:45 Mupirocin (Bactroban) 1 crispin BID NS Last administered on 10/12/21at 21:09; Start 09/26/21 at 09:00; Stop 10/13/21 at 07:56; Status DC Dexamethasone Sodium Phosphate (Decadron) 10 mg 1X ONCE IVP Last administered on 09/26/21at 07:31; Start 09/26/21 at 07:30; Stop 09/26/21 at 07:31; Status DC Cefazolin Sodium 1 gm/Sodium Chloride 1,000 ml @ 1,000 mls/hr 1X ONCE IRR Last administered on 09/26/21at 11:52; Start 09/26/21 at 10:30; Stop 09/26/21 at 11:29; Status DC Cefazolin Sodium (Ancef) 1 gm STK-MED ONCE IVP ; Start 09/26/21 at 10:05; Stop 09/26/21 at 10:06; Status DC Lidocaine HCl (Lidocaine Pf 2% Vial) 5 ml STK-MED ONCE .ROUTE ; Start 09/26/21 at 10:18; Stop 09/26/21 at 10:18; Status DC Ondansetron HCl (Zofran) 4 mg STK-MED ONCE .ROUTE ; Start 09/26/21 at 10:18; Stop 09/26/21 at 10:18; Status DC Propofol (Diprivan) 200 mg STK-MED ONCE IV ; Start 09/26/21 at 10:18; Stop 09/26/21 at 10:19; Status DC Dexamethasone Sodium Phosphate (Decadron) 4 mg STK-MED ONCE .ROUTE ; Start 09/26/21 at 10:18; Stop 09/26/21 at 10:19; Status DC Sevoflurane (Ultane) 30 ml STK-MED ONCE IH ; Start 09/26/21 at 10:18; Stop 09/26/21 at 10:19; Status DC Fentanyl Citrate (Fentanyl 2ml Vial) 100 mcg STK-MED ONCE .ROUTE ; Start 09/26/21 at 10:19; Stop 09/26/21 at 10:19; Status DC Rocuronium [place] (Zemuron) 50 mg STK-MED ONCE .ROUTE ; Start 09/26/21 at 10:19; Stop 09/26/21 at 10:19; Status DC Insulin Human Lispro (HumaLOG VIAL for OP,RR ONLY) 0-10 units PRN Q1HR PRN SQ PER PROTOCOL Last administered on 09/26/21at 15:11; Start 09/26/21 at 10:30; Stop 09/26/21 at 18:00; Status DC Sugammadex Sodium (Bridion) 200 mg 1X ONCE IVP Last administered on 09/26/21at 10:30; Start 09/26/21 at 10:30; Stop 09/26/21 at 10:31; Status DC Gelatin (Gelfoam Size 100) 1 each STK-MED ONCE .ROUTE Last administered on 09/26/21at 11:52; Start 09/26/21 at 10:30; Stop 09/26/21 at 10:30; Status DC Bupivacaine HCl/ Epinephrine Bitart (Sensorcain-Epi 0.5% Kit) 30 ml STK-MED ONCE .ROUTE ; Start 09/26/21 at 10:30; Stop 09/26/21 at 10:30; Status DC Ketorolac Tromethamine (Toradol Im) 60 mg STK-MED ONCE .ROUTE ; Start 09/26/21 at 10:30; Stop 09/26/21 at 10:30; Status DC Thrombin 20,000 unit STK-MED ONCE TP Last administered on 09/26/21at 11:52; Start 09/26/21 at 10:30; Stop 09/26/21 at 10:31; Status DC Cefazolin Sodium/ Dextrose 50 ml @ As Directed STK-MED ONCE IV ; Start 09/26/21 at 10:32; Stop 09/26/21 at 10:32; Status DC Vancomycin HCl 1 gm/Sodium Chloride 250 ml @ 250 mls/hr PREOP PRN PRN IV PRIOR TO PROCEDURE; Start 09/26/21 at 10:45; Stop 09/26/21 at 14:00; Status DC Cefazolin Sodium/ Dextrose 50 ml @ 100 mls/hr 1X ONCE IV Last administered on 09/26/21at 11:00; Start 09/26/21 at 11:00; Stop 09/26/21 at 11:29; Status DC Dexamethasone Sodium Phosphate (Decadron) 4 mg STK-MED ONCE .ROUTE ; Start 09/26/21 at 11:04; Stop 09/26/21 at 11:04; Status DC Glycopyrrolate (Robinul) 1 mg STK-MED ONCE .ROUTE ; Start 09/26/21 at 11:04; Stop 09/26/21 at 11:04; Status DC Hydromorphone HCl (Dilaudid) 2 mg STK-MED ONCE .ROUTE ; Start 09/26/21 at 11:56; Stop 09/26/21 at 11:56; Status DC Fentanyl Citrate (Fentanyl 2ml Vial) 25 mcg PRN Q5MIN PRN IVP MILD PAIN 1-3; Start 09/26/21 at 14:30; Stop 09/26/21 at 18:15; Status DC Fentanyl Citrate (Fentanyl 2ml Vial) 50 mcg PRN Q5MIN PRN IVP MODERATE PAIN 4- 6; Start 09/26/21 at 14:30; Stop 09/26/21 at 18:15; Status DC Morphine Sulfate (Morphine Sulfate) 1 mg PRN Q10MIN PRN IVP SEVERE PAIN 7-10; Start 09/26/21 at 14:30; Stop 09/26/21 at 18:15; Status DC Ringer's Solution 1,000 ml @ 30 mls/hr Q24H IV Last administered on 09/26/21at 15:18; Start 09/26/21 at 14:30; Stop 09/26/21 at 21:00; Status DC Hydromorphone HCl (Dilaudid) 0.5 mg PRN Q10MIN PRN IVP SEVERE PAIN 7-10, 2nd CHOICE; Start 09/26/21 at 14:30; Stop 09/26/21 at 18:15; Status DC Prochlorperazine Edisylate (Compazine) 5 mg PACU PRN PRN IVP NAUSEA, MRX1; Start 09/26/21 at 14:30; Stop 09/26/21 at 21:00; Status DC Fentanyl Citrate (Fentanyl 2ml Vial) 100 mcg STK-MED ONCE .ROUTE ; Start 09/26/21 at 14:23; Stop 09/26/21 at 14:25; Status DC Fentanyl Citrate (Fentanyl 2ml Vial) 25 mcg PRN Q5MIN PRN IVP MILD PAIN 1-3; Start 09/26/21 at 14:30; Stop 09/27/21 at 14:29; Status UNV Fentanyl Citrate (Fentanyl 2ml Vial) 50 mcg PRN Q5MIN PRN IVP MODERATE PAIN 4- 6; Start 09/26/21 at 14:30; Stop 09/27/21 at 14:29; Status UNV Morphine Sulfate (Morphine Sulfate) 1 mg PRN Q10MIN PRN IVP SEVERE PAIN 7-10; Start 09/26/21 at 14:30; Stop 09/27/21 at 14:29; Status UNV Ringer's Solution 1,000 ml @ 30 mls/hr Q24H IV ; Start 09/26/21 at 14:30; Stop 09/27/21 at 02:29; Status UNV Hydromorphone HCl (Dilaudid) 0.5 mg PRN Q10MIN PRN IVP SEVERE PAIN 7-10, 2nd CHOICE; Start 09/26/21 at 14:30; Stop 09/27/21 at 14:29; Status UNV Prochlorperazine Edisylate (Compazine) 5 mg PACU PRN PRN IVP NAUSEA, MRX1; Start 09/26/21 at 14:30; Stop 09/27/21 at 14:29; Status UNV Dexamethasone Sodium Phosphate (Decadron) 4 mg Q6HRS IVP Last administered on 09/28/21at 05:06; Start 09/26/21 at 18:00; Stop 09/28/21 at 06:00; Status DC Sodium Chloride 1,000 ml @ 100 mls/hr Q10H IV Last administered on 10/05/21at 06:41; Start 09/26/21 at 17:30; Stop 10/05/21 at 13:48; Status DC Cefazolin Sodium (Ancef) 1 gm Q8HRS IVP ; Start 09/27/21 at 06:00; Stop 09/27/21 at 05:47; Status DC Vancomycin HCl 1 gm/Sodium Chloride 250 ml @ 166.667 mls/hr 1X ONCE IV Last administered on 09/27/21at 06:27; Start 09/27/21 at 06:00; Stop 09/27/21 at 07:29; Status DC Gadoterate Meglumine (Clariscan) 19 ml 1X ONCE IVP Last administered on 09/29/21at 10:32; Start 09/29/21 at 08:15; Stop 09/29/21 at 08:17; Status DC Bisacodyl (Dulcolax Supp) 10 mg PRN DAILY PRN IA CONSTIPATION; Start 09/29/21 at 14:15 Lactulose (Lactulose) 20 gm PRN DAILY PRN PO CONSTIPATION, 2nd choice Last administered on 10/01/21at 08:35; Start 09/29/21 at 14:30 Ascorbic Acid (Vitamin C) 500 mg DAILY PO Last administered on 10/18/21at 07:44; Start 10/02/21 at 10:00 Levofloxacin/ Dextrose 100 ml @ 100 mls/hr Q24H IV Last administered on 10/02/21at 12:15; Start 10/02/21 at 12:00; Stop 10/03/21 at 08:57; Status DC Levofloxacin/ Dextrose 50 ml @ 50 mls/hr Q24H IV Last administered on 10/06/21at 15:19; Start 10/03/21 at 12:00; Stop 10/06/21 at 23:00; Status DC Lactobacillus Rhamnosus (Culturelle) 1 cap BID PO Last administered on 10/18/21at 07:44; Start 10/03/21 at 21:00 Lidocaine (Lidoderm) 1 patch QHS TP Last administered on 10/17/21at 21:00; Start 10/04/21 at 22:00 Levofloxacin (Levaquin) 250 mg DAILY06 PO Last administered on 10/11/21at 06:13; Start 10/07/21 at 06:00; Stop 10/11/21 at 12:00; Status DC Insulin Human Lispro (HumaLOG) 0-5 UNITS TIDWMEALS SQ Last administered on 10/18/21at 12:16; Start 10/12/21 at 08:00 Dextrose (Dextrose 50%-Water Syringe) 12.5 gm PRN Q15MIN PRN IV SEE COMMENTS; Start 10/11/21 at 19:00 Dextrose (Iv Dextrose 5%) 250 ml PRN Q15MIN PRN IV SEE COMMENTS; Start 10/11/21 at 19:00 Potassium Chloride (Klor-Con) 40 meq 1X ONCE PO Last administered on 10/15/21at 10:21; Start 10/15/21 at 10:30; Stop 10/15/21 at 10:31; Status DC Magnesium Sulfate 50 ml @ 25 mls/hr 1X ONCE IV Last administered on 10/15/21at 10:20; Start 10/15/21 at 10:30; Stop 10/15/21 at 12:29; Status DC Baclofen (Lioresal) 10 mg Q8HRS PO Last administered on 10/17/21at 06:02; Start 10/16/21 at 22:00; Stop 10/17/21 at 11:58; Status DC Baclofen (Lioresal) 10 mg Q6HRS PO Last administered on 10/18/21at 11:47; Start 10/17/21 at 12:00 Triamcinolone Acetonide (Kenalog-40) 40 mg 1X ONCE IM ; Start 10/17/21 at 12:15; Stop 10/17/21 at 12:16; Status DC Bupivacaine HCl (Sensorcaine-Mpf 0.25%) 10 ml 1X ONCE IJ ; Start 10/17/21 at 12:00; Stop 10/17/21 at 12:01; Status DC Active Scripts Active Dok (Docusate Sodium) 100 Mg Capsule 100 Mg PO PRN BID PRN 30 Days Tylenol (Acetaminophen) 325 Mg Tablet 650 Mg PO PRN Q4HRS PRN 30 Days Valium (Diazepam) 5 Mg Tablet 5 Mg PO TID Atorvastatin Calcium 10 Mg Tablet 10 Mg PO QHS Reported Midodrine Hcl 2.5 Mg Tablet 2.5 Mg PO PRN 1X PRN Aspirin 81 Mg Tab.chew 81 Mg PO DAILY Baclofen 10 Mg Tablet 10 Mg PO BID Lyrica (Pregabalin) 100 Mg Capsule 100 Mg PO BID 30 Days Polyethylene Glycol 3350 2,500 Gm Powder 17 Gm PO DAILY 30 Days Micatin (Miconazole Nitrate) 14 Gm Cream..g. 1 [place] TP TID Tradjenta (Linagliptin) 5 Mg Tablet 5 Mg PO DAILY Lidocaine PATCH (Lidocaine) 1 Each Adh..patch 1 Each TP DAILY REMOVE AFTER 12 HOURS Levemir (Insulin Detemir) 100 Unit/1 Ml Vial 4 Unit SQ HS Hydroxyzine Hcl 25 Mg Tablet 25 Mg PO PRN Q6HRS PRN Fluticasone Propionate Nasal [place] (Fluticasone Propionate) 16 Gm [place].susp 2 [place] NS DAILY Diclofenac Sodium 100 Gm Gel..gram. 100 Gm TP PRN TID PRN Losartan Potassium 100 Mg Tablet 25 Tab PO DAILY08 Vitals/I & O Vital Sign - Last 24 Hours 10/17/21 10/17/21 10/17/21 10/17/21 14:00 14:56 17:45 18:35 Temp 98.4 97.7 98.4 97.7 Pulse 82 77 Resp 20 18 20 B/P (MAP) 137/73 (94) 154/86 (108) Pulse Ox 96 96 O2 Delivery Room Air Room Air Room Air 10/17/21 10/17/21 10/17/21 10/18/21 19:00 20:00 23:15 03:00 Temp 97.9 97.9 Pulse 73 Resp 18 B/P (MAP) 136/71 (92) Pulse Ox 97 O2 Delivery Room Air Room Air Room Air Room Air O2 Flow Rate 2.0 10/18/21 10/18/21 10/18/21 10/18/21 07:42 07:44 07:45 07:45 Temp 97.9 97.9 Pulse 61 61 Resp 16 B/P (MAP) 114/64 (81) 114/64 Pulse Ox 97 O2 Delivery Room Air Room Air Room Air 10/18/21 10/18/21 08:14 12:00 Temp 98.2 98.2 Pulse 77 Resp 18 B/P (MAP) 118/68 (85) Pulse Ox 97 O2 Delivery Room Air Room Air Intake and Output 10/17/21 10/17/21 10/18/21 15:00 23:00 07:00 Intake Total 360 ml 500 ml Output Total 1600 ml 500 ml Balance -1240 ml 0 ml Justifications for Admission Other Justification uncontrolled diabetes TERRY JURADO MD Oct 18, 2021 12:30
--- NOTE | 2021-10-18 13:12 | PDOC ---
[employer] PROGRESS NOTE Date of Service DOS: DATE: 10/18/21 TIME: 13:11 Chief Complaint Chief Complaint Cervical spinal cord injury - Concern for C5 cord edema, cord compression, a right lateral C5 fracture, and concern for numerous ligamentous injuries. 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 S/p decompression 07/26/2021 and repeat surgeries 09/25 and 09/26 Diabetes - sliding scale plus basal HTN - prn hydralazine HLD - statin when taking PO Cervical laminectomy as per above, diabetes, hypertension, hyperlipidemia, arthritis, GERD, left knee arthroplasty and TIA S/p; IVC filter FEN - ADAT PPX - SCDs FULL CODE Dispo - Inpatient History of Present Illness History of Present Illness 10/18: Right shoulder radiograph with some degenerative changes. Had some spasming this morning, but feeling better currently. Mag 1.6. Discussed addition of B6, 9, 12 and needs for complex neuro rehab. 10/17/2021 No acute events overnight. Patient seen examined bedside. Still complaining of muscle spasms. Baclofen has been increased. He is already on Valium and Lyrica. Considering neurology consult for evaluation. Pending right shoulder x-ray. Patient's chart, labs, images were reviewed and discussed with RN 10/16: Seen in ICU notes spasming started again last night this happened about 6 times even when he tries to reach up and scratch his eyelid. Having some more pain in his right biceps and left Achilles area. 10/15: Seen bedside in ICU getting bed bath. Says his spasming is improved today having a little bit of shortness of breath but no cough. No chest pain. 10/14: Seen bedside in ICU. Still with spasming upon awakening in his hands and feet still with some weakness in his left foot. Poor appetite. 10/13: Patient seen and examined. Discussed with neurosurgery nurse practitioner Roberta 10/12: Patient seen and examined 10/11: Patient seen and examined. His discharge was held again as he was not accepted at [facility] 10/09: His sister is here as well discussed with her. Plan is to get the patient to [facility] if [facility] accept him 10/08: Patient seen and examined. He is moving his toes more each day 10/07: Patient seen and examined in the ICU (he is actually in overfull patient). He is working with his nurse to try to use his nurse button and remote control. Started to move his toes a little bit 10/06/2021 Patient seen and examined in the ICU I discussed the case with his sister again I also discussed the case with case management [facility] rehab may consider taking him after all now that he is improved over the past 3 days 10/05/2021 Patient seen and examined in the ICU His nurses are starting to get ready to clean him up His sister is present Discussed with RN Discussed with case management [facility] if it can be arranged 10/04/2021 Patient seen and examined again in the ICU He remains very weak cannot move his legs was able to move his hands His sister is present I called case management they are checking into possibly if he could go to rehab [facility] Chart reviewed 10/03/2021 Patient seen and examined in the ICU Chart reviewed Discussed with RN Called case management We are hoping to get the patient [facility] (they are evaluating his admission criteria to rehab) 10/02/2021 Patient seen and examined in the ICU He is still unable to move his legs He is able to move his hands and arms slightly but is very weak at bedside Chart reviewed Discussed with RN I called case management to see if maybe he could go to [facility] rehab sometime soon 10/01 Patient evaluated examined at bedside. Continues to improve. Continue rehab. Plan discussed with bedside RN. 09/30 Patient evaluated examined at bedside. Clinically about the same from yeste rday. Continue rehab modalities. Labs stable. Plan discussed with bedside RN. 09/29 Patient evaluated at bedside. Underwent MRI this morning. Symptoms very similar to yesterday but he feels like he is regaining some function. Pain controlled. PT OT. Hemoglovin stable. 09/28 Evaluate examined at bedside. Resting in bed had no complaints to me. Said pain is quite improved. Did okay with transfusion yesterday. Continue current treatments. PT/OT. Discussed with bedside RN. Roxi 09/27 Patient evaluated examined at bedside. Was resting in bed easily awoken able to answer some questions. Some movement in his upper extremities but very limited in lower. Transfuse 1 unit today. Plan discussed with RN. Mr Terrell is a 60-year-old male w/ PMHx prediabetes, HLD, HTN and recent fall in July 2021 with cervical myelopathy and s/p cervical decompression with ACDF C5-6 07/26/2021 On 09/25/21 underwent cervical laminectomy, C3, C4, C5, C6, partial C7 with lateral mass fusion C3 through C7, Posterior nstrumentation C3-C7 on the left and posterior instrumentation C-C6 on the right. On 09/26/21 returned to OR for cervical hematoma evacuation. Vitals/I&O Vitals/I&O: Vital Signs Date Time Temp Pulse Resp B/P (MAP) Pulse Ox O2 Delivery O2 Flow Rate FiO2 10/18/21 12:00 98.2 77 18 118/68 (85) 97 Room Air 98.2 10/17/21 20:00 2.0 I & O 10/17/21 10/17/21 10/18/21 15:00 23:00 07:00 Intake Total 360 ml 500 ml Output Total 1600 ml 500 ml Balance -1240 ml 0 ml Physical Exam General: Alert, Oriented X3, Cooperative Heart: Regular rate Lungs: Clear Abdomen: Normal bowel sounds, Soft, No tenderness Extremities: No edema, Normal pulses Skin: Other (incision healing well) Labs Labs: Laboratory Tests Test 10/17/21 14:26 10/17/21 20:31 10/18/21 07:51 10/18/21 11:48 White Blood Count 10.6 x10^3/uL (4.0-11.0) Red Blood Count 3.63 x10^6/uL (4.30-5.70) Hemoglobin 10.0 g/dL (13.0-17.5) Hematocrit 31.3 % (39.0-53.0) Mean Corpuscular Volume 86 fL (79-100) Mean Corpuscular Hemoglobin 28 pg (25-35) Mean Corpuscular Hemoglobin Concent 32 g/dL (31-37) Red Cell Distribution Width 15.3 % (11.5-14.5) Platelet Count 279 x10^3/uL (140-400) Neutrophils (%) (Auto) 74 % (31-73) Lymphocytes (%) (Auto) 15 % (24-48) Monocytes (%) (Auto) 8 % (0-9) Eosinophils (%) (Auto) 2 % (0-3) Basophils (%) (Auto) 1 % (0-3) Neutrophils # (Auto) 7.8 x10^3/uL (1.8-7.7) Lymphocytes # (Auto) 1.6 x10^3/uL (1.0-4.8) Monocytes # (Auto) 0.9 x10^3/uL (0.0-1.1) Eosinophils # (Auto) 0.2 x10^3/uL (0.0-0.7) Basophils # (Auto) 0.1 x10^3/uL (0.0-0.2) Sodium Level 143 mmol/L (136-145) Potassium Level 3.6 mmol/L (3.5-5.1) Chloride Level 106 mmol/L (98-107) Carbon Dioxide Level 26 mmol/L (21-32) Anion Gap 11 (6-14) Blood Urea Nitrogen 10 mg/dL (8-26) Creatinine 0.8 mg/dL (0.7-1.3) Estimated GFR (Cockcroft-Gault) 118.9 Glucose Level 173 mg/dL (70-99) Calcium Level 8.2 mg/dL (8.5-10.1) Magnesium Level 1.6 mg/dL (1.8-2.4) Glucose (Fingerstick) 167 mg/dL (70-99) 126 mg/dL (70-99) 182 mg/dL (70-99) Comment Review of Relevant I have reviewed the following items michelle (where applicable) has been applied. Justifications for Admission Other Justification uncontrolled diabetes STACY HOUSTON MD Oct 18, 2021 13:12
[2021-10-18] MEDS: VITAMIN B12,B9,B6 COMPLEX 1 TABLET. PO SCH (14:13)
[2021-10-18] MEDS ORDERED: MAGNESIUM SULFATE 4GM 100 ML IV ONE (14:30)
[2021-10-18 16:00] VITALS: BP 111/62
--- NOTE | 2021-10-18 17:12 | PDOC ---
PROGRESS NOTES Date of Service DATE: 10/18/21 TIME: 17:11 Subjective Subjective POD #22 S/P Evacuation of epidural hematoma, s/p cervical laminectomy and fusion 09/25/21 pain improved, spasms improved Objective Objective Vital Signs Date Time Temp Pulse Resp B/P (MAP) Pulse Ox O2 Delivery O2 Flow Rate FiO2 10/18/21 16:00 98.4 76 18 111/62 (78) 97 Room Air 98.4 10/17/21 20:00 2.0 Intake and Output 10/18/21 07:00 Intake Total 860 ml Output Total 2100 ml Balance -1240 ml Intake Oral 860 ml Output Urine Total 2100 ml Physical Exam Neuro: Other (strength 0/5 legs, 3/5 distal arms, 4/5 left shoulder, 5/5 right shoulder) Skin: Other (incision healing well) Plan Plan of Care continue current treatments PT/ OT SCDs 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 Labs Laboratory Tests Test 10/16/21 21:14 10/17/21 07:06 10/17/21 11:55 10/17/21 14:26 Glucose (Fingerstick) 136 mg/dL (70-99) 127 mg/dL (70-99) 163 mg/dL (70-99) White Blood Count 10.6 x10^3/uL (4.0-11.0) Red Blood Count 3.63 x10^6/uL (4.30-5.70) Hemoglobin 10.0 g/dL (13.0-17.5) Hematocrit 31.3 % (39.0-53.0) Mean Corpuscular Volume 86 fL (79-100) Mean Corpuscular Hemoglobin 28 pg (25-35) Mean Corpuscular Hemoglobin Concent 32 g/dL (31-37) Red Cell Distribution Width 15.3 % (11.5-14.5) Platelet Count 279 x10^3/uL (140-400) Neutrophils (%) (Auto) 74 % (31-73) Lymphocytes (%) (Auto) 15 % (24-48) Monocytes (%) (Auto) 8 % (0-9) Eosinophils (%) (Auto) 2 % (0-3) Basophils (%) (Auto) 1 % (0-3) Neutrophils # (Auto) 7.8 x10^3/uL (1.8-7.7) Lymphocytes # (Auto) 1.6 x10^3/uL (1.0-4.8) Monocytes # (Auto) 0.9 x10^3/uL (0.0-1.1) Eosinophils # (Auto) 0.2 x10^3/uL (0.0-0.7) Basophils # (Auto) 0.1 x10^3/uL (0.0-0.2) Sodium Level 143 mmol/L (136-145) Potassium Level 3.6 mmol/L (3.5-5.1) Chloride Level 106 mmol/L (98-107) Carbon Dioxide Level 26 mmol/L (21-32) Anion Gap 11 (6-14) Blood Urea Nitrogen 10 mg/dL (8-26) Creatinine 0.8 mg/dL (0.7-1.3) Estimated GFR (Cockcroft-Gault) 118.9 Glucose Level 173 mg/dL (70-99) Calcium Level 8.2 mg/dL (8.5-10.1) Magnesium Level 1.6 mg/dL (1.8-2.4) Test 10/17/21 20:31 10/18/21 07:51 10/18/21 11:48 10/18/21 16:41 Glucose (Fingerstick) 167 mg/dL (70-99) 126 mg/dL (70-99) 182 mg/dL (70-99) 134 mg/dL (70-99) Laboratory Tests Test 10/17/21 20:31 10/18/21 07:51 10/18/21 11:48 10/18/21 16:41 Glucose (Fingerstick) 167 mg/dL (70-99) 126 mg/dL (70-99) 182 mg/dL (70-99) 134 mg/dL (70-99) Microbiology 10/01/21 Urine Culture - Final, Complete Escherichia Coli Escherichia Coli#2 Medications Current Medications Fentanyl Citrate (Fentanyl 2ml Vial) 25 mcg PRN Q5MIN PRN IVP MILD PAIN 1-3; Start 09/25/21 at 06:00; Stop 09/25/21 at 20:00; Status DC Fentanyl Citrate (Fentanyl 2ml Vial) 50 mcg PRN Q5MIN PRN IVP MODERATE PAIN 4-6 Last administered on 09/25/21at 13:48; Start 09/25/21 at 06:00; Stop 09/25/21 at 20:00; Status DC Morphine Sulfate (Morphine Sulfate) 1 mg PRN Q10MIN PRN IVP SEVERE PAIN 7-10 Last administered on 09/25/21at 14:21; Start 09/25/21 at 06:00; Stop 09/25/21 at 20:00; Status DC Ringer's Solution 1,000 ml @ 30 mls/hr Q24H IV Last administered on 09/25/21at 12:54; Start 09/25/21 at 06:00; Stop 09/25/21 at 17:59; Status DC Hydromorphone HCl (Dilaudid) 0.5 mg PRN Q10MIN PRN IVP SEVERE PAIN 7-10, 2nd CHOICE Last administered on 09/25/21at 16:53; Start 09/25/21 at 06:00; Stop 09/25/21 at 20:00; Status DC Prochlorperazine Edisylate (Compazine) 5 mg PACU PRN PRN IVP NAUSEA, MRX1; Start 09/25/21 at 06:00; Stop 09/25/21 at 20:00; Status DC Cefazolin Sodium 1 gm/Sodium Chloride 1,000 ml @ 1,000 mls/hr 1X ONCE IRR Last administered on 09/25/21at 10:14; Start 09/25/21 at 06:00; Stop 09/25/21 at 06:59; Status DC Cefazolin Sodium/ Dextrose 50 ml @ 100 mls/hr 1X PREOP PRN IV PRIOR TO PROCEDURE Last administered on 09/25/21at 09:30; Start 09/25/21 at 06:00; Stop 09/25/21 at 13:39; Status DC Insulin Human Lispro (HumaLOG VIAL for OP,RR ONLY) 0-10 units PRN Q1HR PRN SQ PER PROTOCOL Last administered on 09/25/21at 17:01; Start 09/25/21 at 07:00; Stop 09/25/21 at 18:00; Status DC Bupivacaine HCl/ Epinephrine Bitart (Sensorcain-Epi 0.5% Kit) 30 ml STK-MED ONCE INJ Last administered on 09/25/21 10:14; Start 09/25/21 at 10:14; Stop 09/25/21 at 10:30; Status DC Ketorolac Tromethamine (Toradol Im) 60 mg STK-MED ONCE INJ Last administered on 09/25/21at 10:14; Start 09/25/21 at 10:14; Stop 09/25/21 at 10:30; Status DC Thrombin 20,000 unit STK-MED ONCE TP Last administered on 09/25/21at 10:14; Start 09/25/21 at 10:14; Stop 09/25/21 at 10:30; Status DC Gelatin (Gelfoam Size 100) 1 each STK-MED ONCE TP Last administered on 09/25/21 10:14; Start 09/25/21 at 10:14; Stop 09/25/21 at 10:30; Status DC Acetaminophen (Tylenol) 650 mg PRN Q4HRS PRN PO TEMP OVER 100.4F OR MILD PAIN Last administered on 10/16/21at 04:15; Start 09/25/21 at 12:30 Aspirin (Aspirin Chewable) 81 mg DAILY PO Last administered on 09/26/21 08:30; Start 09/26/21 at 09:00; Stop 09/28/21 at 17:19; Status DC Atorvastatin Calcium (Lipitor) 10 mg QHS PO Last administered on 10/17/21at 21:00; Start 09/25/21 at 21:00 Baclofen (Lioresal) 10 mg BID PO Last administered on 10/16/21 08:26; Start 09/25/21 at 21:00; Stop 10/16/21 at 13:21; Status DC Diazepam (Valium) 5 mg TID PO Last administered on 10/18/21 14:12; Start 09/25/21 at 14:00 Docusate Sodium (Colace) 100 mg PRN BID PRN PO HARD STOOLS Last administered on 10/15/21 10:22; Start 09/25/21 at 12:30 Fluticasone Propionate (Flonase) 2 spray DAILY NS Last administered on 10/17/21at 12:58; Start 09/26/21 at 09:00 Hydroxyzine HCl (Atarax) 25 mg PRN Q6HRS PRN PO Itching (2ND Choice) Last administered on 10/17/21 23:16; Start 09/25/21 at 12:30 Lidocaine (Lidoderm) 1 patch QHS TP Last administered on 10/03/21at 23:31; Start 09/25/21 at 20:00; Stop 10/05/21 at 01:01; Status DC Linagliptin (Tradjenta) 5 mg DAILY PO Last administered on 10/18/21 07:45; Start 09/25/21 at 13:00 Miconazole Nitrate (Monistat-Derm) 1 crispin TID TP Last administered on 10/04/21 20:08; Start 09/25/21 at 21:00; Stop 10/05/21 at 13:23; Status DC Midodrine (Proamatine) 2.5 mg PRN 1X PRN PO hypotension Last administered on 09/27/21 08:56; Start 09/25/21 at 12:30 Oxycodone HCl (Roxicodone) 10 mg PRN Q6HRS PRN PO MODERATE-SEVERE PAIN Last ad ministered on 10/18/21at 14:12; Start 09/25/21 at 12:30 Diclofenac Sodium (Voltaren) 1 crispin PRN TID PRN TP PAIN CONTROL; Start 09/25/21 at 13:15; Stop 09/25/21 at 18:37; Status DC Insulin Glargine (Lantus Syringe) 4 unit QHS SQ Last administered on 10/17/21at 2 1:00; Start 09/25/21 at 21:00 Losartan Potassium (Cozaar) 25 mg DAILY08 PO Last administered on 10/18/21at 07:45; Start 09/26/21 at 08:00 Polyethylene Glycol (miraLAX PACKET) 17 gm DAILY PO Last administered on 10/13/21 08:53; Start 09/25/21 at 14:00 Pregabalin (Lyrica) 100 mg BID PO Last administered on 10/18/21 07:44; Start 09/25/21 at 21:00 Acetaminophen (Tylenol) 650 mg PRN Q6HRS PRN PO MILD PAIN / TEMP > 100.3'F; Start 09/25/21 at 12:30; Status Cancel Al Hydroxide/Mg Hydroxide (Mylanta Plus Xs) 30 ml PRN Q3HRS PRN PO HEARTBURN / GAS; Start 09/25/21 at 12:30 Calcium Carbonate/ Glycine (Tums) 500 mg PRN Q3HRS PRN PO INDIGESTION; Start 09/25/21 at 12:30 Diphenhydramine HCl (Benadryl) 25 mg PRN Q6HRS PRN PO ITCHING (1ST CHOICE); Start 09/25/21 at 12:30 Naloxone HCl (Narcan) 0.1 mg PRN Q2MIN PRN IV SEE COMMENTS; Start 09/25/21 at 12:30 Sodium Chloride (Normal Saline Flush) 3 ml QSHIFT PRN IV AFTER MEDS AND BLOOD DRAWS; Start 09/25/21 at 12:30 Potassium Chloride/Sodium Chloride 1,000 ml @ 75 mls/hr [id number] IV Last administered on 09/26/21at 07:00; Start 09/25/21 at 12:30; Stop 09/26/21 at 17:33; Status DC Magnesium Hydroxide (Milk Of Magnesia) 2,400 mg PRN Q12HR PRN PO CONSTIPATION; Start 09/25/21 at 12:30 Cefazolin Sodium (Ancef) 1 gm Q8H IVP Last administered on 09/26/21at 04:14; Start 09/25/21 at 18:00; Stop 09/26/21 at 10:01; Status DC Fentanyl Citrate (Fentanyl 2ml Vial) 50 mcg PRN Q2HR PRN IVP MODERATE TO SEVERE PAIN Last administered on 10/05/21at 22:46; Start 09/25/21 at 12:30 Dextrose (Dextrose 50%-Water Syringe) 12.5 gm PRN Q15MIN PRN IV SEE COMMENTS; Start 09/25/21 at 12:30; Status Cancel Dextrose (Iv Dextrose 5%) 250 ml PRN Q15MIN PRN IV SEE COMMENTS; Start 09/25/21 at 12:30; Status Cancel Gelatin (Gelfoam Size 100) 1 each STK-MED ONCE .ROUTE ; Start 09/25/21 at 06:37; Stop 09/25/21 at 14:55; Status DC Bupivacaine HCl/ Epinephrine Bitart (Sensorcain-Epi 0.5% Kit) 30 ml STK-MED ONCE .ROUTE ; Start 09/25/21 at 06:37; Stop 09/25/21 at 14:55; Status DC Ketorolac Tromethamine (Toradol Im) 60 mg STK-MED ONCE .ROUTE ; Start 09/25/21 at 06:37; Stop 09/25/21 at 14:55; Status DC Thrombin 20,000 unit STK-MED ONCE TP ; Start 09/25/21 at 06:38; Stop 09/25/21 at 14:55; Status DC Propofol (Diprivan) 200 mg STK-MED ONCE IV ; Start 09/25/21 at 05:54; Stop 09/25/21 at 14:57; Status DC Lidocaine HCl (Lidocaine Pf 2% Vial) 5 ml STK-MED ONCE .ROUTE ; Start 09/25/21 at 05:54; Stop 09/25/21 at 14:57; Status DC Ondansetron HCl (Zofran) 4 mg STK-MED ONCE .ROUTE ; Start 09/25/21 at 05:54; Stop 09/25/21 at 14:57; Status DC Phenylephrine HCl (Ramone-Synephrine Inj) 10 mg STK-MED ONCE .ROUTE ; Start 09/25/21 at 05:54; Stop 09/25/21 at 14:57; Status DC Propofol 50 ml @ As Directed STK-MED ONCE IV ; Start 09/25/21 at 05:54; Stop 09/25/21 at 14:57; Status DC Dexamethasone Sodium Phosphate (Decadron) 4 mg STK-MED ONCE .ROUTE ; Start 09/25/21 at 05:54; Stop 09/25/21 at 14:57; Status DC Fentanyl Citrate (Fentanyl 2ml Vial) 100 mcg STK-MED ONCE .ROUTE ; Start 09/25/21 at 05:54; Stop 09/25/21 at 14:57; Status DC Succinylcholine Chloride (Anectine) 200 mg STK-MED ONCE .ROUTE ; Start 09/25/21 at 05:54; Stop 09/25/21 at 14:57; Status DC Remifentanil HCl (Ultiva) 1 mg STK-MED ONCE IV ; Start 09/25/21 at 05:54; Stop 09/25/21 at 14:57; Status DC Glycopyrrolate (Robinul) 1 mg STK-MED ONCE .ROUTE ; Start 09/25/21 at 07:11; Stop 09/25/21 at 15:01; Status DC Propofol 50 ml @ As Directed STK-MED ONCE IV ; Start 09/25/21 at 08:07; Stop 09/25/21 at 15:02; Status DC Ketamine HCl (Ketamine) 50 mg STK-MED ONCE .ROUTE ; Start 09/25/21 at 08:15; Stop 09/25/21 at 15:02; Status DC Hydromorphone HCl (Dilaudid) 2 mg STK-MED ONCE .ROUTE ; Start 09/25/21 at 10:44; Stop 09/25/21 at 15:03; Status DC Fentanyl Citrate (Fentanyl 2ml Vial) 100 mcg STK-MED ONCE .ROUTE ; Start 09/25/21 at 13:26; Stop 09/25/21 at 15:04; Status DC Morphine Sulfate (Morphine Sulfate) 2 mg STK-MED ONCE .ROUTE ; Start 09/25/21 at 14:04; Stop 09/25/21 at 15:05; Status DC Hydromorphone HCl (Dilaudid) 2 mg STK-MED ONCE .ROUTE ; Start 09/25/21 at 14:54; Stop 09/25/21 at 15:06; Status DC Menthol/Methyl Salicylate (Bengay Greaseless Cream) 1 crispin PRN Q30MIN PRN TP MUSCLE PAIN Last administered on 10/02/21at 21:03; Start 09/25/21 at 18:45 Mupirocin (Bactroban) 1 crispin BID NS Last administered on 10/12/21at 21:09; Start 09/26/21 at 09:00; Stop 10/13/21 at 07:56; Status DC Dexamethasone Sodium Phosphate (Decadron) 10 mg 1X ONCE IVP Last administered on 09/26/21at 07:31; Start 09/26/21 at 07:30; Stop 09/26/21 at 07:31; Status DC Cefazolin Sodium 1 gm/Sodium Chloride 1,000 ml @ 1,000 mls/hr 1X ONCE IRR Last administered on 09/26/21at 11:52; Start 09/26/21 at 10:30; Stop 09/26/21 at 11:29; Status DC Cefazolin Sodium (Ancef) 1 gm STK-MED ONCE IVP ; Start 09/26/21 at 10:05; Stop 09/26/21 at 10:06; Status DC Lidocaine HCl (Lidocaine Pf 2% Vial) 5 ml STK-MED ONCE .ROUTE ; Start 09/26/21 at 10:18; Stop 09/26/21 at 10:18; Status DC Ondansetron HCl (Zofran) 4 mg STK-MED ONCE .ROUTE ; Start 09/26/21 at 10:18; Stop 09/26/21 at 10:18; Status DC Propofol (Diprivan) 200 mg STK-MED ONCE IV ; Start 09/26/21 at 10:18; Stop 09/26/21 at 10:19; Status DC Dexamethasone Sodium Phosphate (Decadron) 4 mg STK-MED ONCE .ROUTE ; Start 09/26/21 at 10:18; Stop 09/26/21 at 10:19; Status DC Sevoflurane (Ultane) 30 ml STK-MED ONCE IH ; Start 09/26/21 at 10:18; Stop 09/26/21 at 10:19; Status DC Fentanyl Citrate (Fentanyl 2ml Vial) 100 mcg STK-MED ONCE .ROUTE ; Start 09/26/21 at 10:19; Stop 09/26/21 at 10:19; Status DC Rocuronium Camargo (Zemuron) 50 mg STK-MED ONCE .ROUTE ; Start 09/26/21 at 10:19; Stop 09/26/21 at 10:19; Status DC Insulin Human Lispro (HumaLOG VIAL for OP,RR ONLY) 0-10 units PRN Q1HR PRN SQ PER PROTOCOL Last administered on 09/26/21at 15:11; Start 09/26/21 at 10:30; Stop 09/26/21 at 18:00; Status DC Sugammadex Sodium (Bridion) 200 mg 1X ONCE IVP Last administered on 09/26/21at 10:30; Start 09/26/21 at 10:30; Stop 09/26/21 at 10:31; Status DC Gelatin (Gelfoam Size 100) 1 each STK-MED ONCE .ROUTE Last administered on 09/26/21at 11:52; Start 09/26/21 at 10:30; Stop 09/26/21 at 10:30; Status DC Bupivacaine HCl/ Epinephrine Bitart (Sensorcain-Epi 0.5% Kit) 30 ml STK-MED ONCE .ROUTE ; Start 09/26/21 at 10:30; Stop 09/26/21 at 10:30; Status DC Ketorolac Tromethamine (Toradol Im) 60 mg STK-MED ONCE .ROUTE ; Start 09/26/21 at 10:30; Stop 09/26/21 at 10:30; Status DC Thrombin 20,000 unit STK-MED ONCE TP Last administered on 09/26/21at 11:52; Start 09/26/21 at 10:30; Stop 09/26/21 at 10:31; Status DC Cefazolin Sodium/ Dextrose 50 ml @ As Directed STK-MED ONCE IV ; Start 09/26/21 at 10:32; Stop 09/26/21 at 10:32; Status DC Vancomycin HCl 1 gm/Sodium Chloride 250 ml @ 250 mls/hr PREOP PRN PRN IV PRIOR TO PROCEDURE; Start 09/26/21 at 10:45; Stop 09/26/21 at 14:00; Status DC Cefazolin Sodium/ Dextrose 50 ml @ 100 mls/hr 1X ONCE IV Last administered on 09/26/21at 11:00; Start 09/26/21 at 11:00; Stop 09/26/21 at 11:29; Status DC Dexamethasone Sodium Phosphate (Decadron) 4 mg STK-MED ONCE .ROUTE ; Start 09/26/21 at 11:04; Stop 09/26/21 at 11:04; Status DC Glycopyrrolate (Robinul) 1 mg STK-MED ONCE .ROUTE ; Start 09/26/21 at 11:04; Stop 09/26/21 at 11:04; Status DC Hydromorphone HCl (Dilaudid) 2 mg STK-MED ONCE .ROUTE ; Start 09/26/21 at 11:56; Stop 09/26/21 at 11:56; Status DC Fentanyl Citrate (Fentanyl 2ml Vial) 25 mcg PRN Q5MIN PRN IVP MILD PAIN 1-3; Start 09/26/21 at 14:30; Stop 09/26/21 at 18:15; Status DC Fentanyl Citrate (Fentanyl 2ml Vial) 50 mcg PRN Q5MIN PRN IVP MODERATE PAIN 4- 6; Start 09/26/21 at 14:30; Stop 09/26/21 at 18:15; Status DC Morphine Sulfate (Morphine Sulfate) 1 mg PRN Q10MIN PRN IVP SEVERE PAIN 7-10; Start 09/26/21 at 14:30; Stop 09/26/21 at 18:15; Status DC Ringer's Solution 1,000 ml @ 30 mls/hr Q24H IV Last administered on 09/26/21at 15:18; Start 09/26/21 at 14:30; Stop 09/26/21 at 21:00; Status DC Hydromorphone HCl (Dilaudid) 0.5 mg PRN Q10MIN PRN IVP SEVERE PAIN 7-10, 2nd CHOICE; Start 09/26/21 at 14:30; Stop 09/26/21 at 18:15; Status DC Prochlorperazine Edisylate (Compazine) 5 mg PACU PRN PRN IVP NAUSEA, MRX1; Start 09/26/21 at 14:30; Stop 09/26/21 at 21:00; Status DC Fentanyl Citrate (Fentanyl 2ml Vial) 100 mcg STK-MED ONCE .ROUTE ; Start 09/26/21 at 14:23; Stop 09/26/21 at 14:25; Status DC Fentanyl Citrate (Fentanyl 2ml Vial) 25 mcg PRN Q5MIN PRN IVP MILD PAIN 1-3; Start 09/26/21 at 14:30; Stop 09/27/21 at 14:29; Status UNV Fentanyl Citrate (Fentanyl 2ml Vial) 50 mcg PRN Q5MIN PRN IVP MODERATE PAIN 4- 6; Start 09/26/21 at 14:30; Stop 09/27/21 at 14:29; Status UNV Morphine Sulfate (Morphine Sulfate) 1 mg PRN Q10MIN PRN IVP SEVERE PAIN 7-10; Start 09/26/21 at 14:30; Stop 09/27/21 at 14:29; Status UNV Ringer's Solution 1,000 ml @ 30 mls/hr Q24H IV ; Start 09/26/21 at 14:30; Stop 09/27/21 at 02:29; Status UNV Hydromorphone HCl (Dilaudid) 0.5 mg PRN Q10MIN PRN IVP SEVERE PAIN 7-10, 2nd CHOICE; Start 09/26/21 at 14:30; Stop 09/27/21 at 14:29; Status UNV Prochlorperazine Edisylate (Compazine) 5 mg PACU PRN PRN IVP NAUSEA, MRX1; Start 09/26/21 at 14:30; Stop 09/27/21 at 14:29; Status UNV Dexamethasone Sodium Phosphate (Decadron) 4 mg Q6HRS IVP Last administered on 09/28/21at 05:06; Start 09/26/21 at 18:00; Stop 09/28/21 at 06:00; Status DC Sodium Chloride 1,000 ml @ 100 mls/hr Q10H IV Last administered on 10/05/21at 06:41; Start 09/26/21 at 17:30; Stop 10/05/21 at 13:48; Status DC Cefazolin Sodium (Ancef) 1 gm Q8HRS IVP ; Start 09/27/21 at 06:00; Stop 09/27/21 at 05:47; Status DC Vancomycin HCl 1 gm/Sodium Chloride 250 ml @ 166.667 mls/hr 1X ONCE IV Last administered on 09/27/21at 06:27; Start 09/27/21 at 06:00; Stop 09/27/21 at 07:29; Status DC Gadoterate Meglumine (Clariscan) 19 ml 1X ONCE IVP Last administered on 09/29/21at 10:32; Start 09/29/21 at 08:15; Stop 09/29/21 at 08:17; Status DC Bisacodyl (Dulcolax Supp) 10 mg PRN DAILY PRN NM CONSTIPATION; Start 09/29/21 at 14:15 Lactulose (Lactulose) 20 gm PRN DAILY PRN PO CONSTIPATION, 2nd choice Last administered on 10/01/21at 08:35; Start 09/29/21 at 14:30 Ascorbic Acid (Vitamin C) 500 mg DAILY PO Last administered on 10/18/21at 07:44; Start 10/02/21 at 10:00 Levofloxacin/ Dextrose 100 ml @ 100 mls/hr Q24H IV Last administered on 10/02/21at 12:15; Start 10/02/21 at 12:00; Stop 10/03/21 at 08:57; Status DC Levofloxacin/ Dextrose 50 ml @ 50 mls/hr Q24H IV Last administered on 10/06/21at 15:19; Start 10/03/21 at 12:00; Stop 10/06/21 at 23:00; Status DC Lactobacillus Rhamnosus (Culturelle) 1 cap BID PO Last administered on 10/18/21at 07:44; Start 10/03/21 at 21:00 Lidocaine (Lidoderm) 1 patch QHS TP Last administered on 10/17/21at 21:00; Start 10/04/21 at 22:00 Levofloxacin (Levaquin) 250 mg DAILY06 PO Last administered on 10/11/21at 06:13; Start 10/07/21 at 06:00; Stop 10/11/21 at 12:00; Status DC Insulin Human Lispro (HumaLOG) 0-5 UNITS TIDWMEALS SQ Last administered on 10/18/21at 12:16; Start 10/12/21 at 08:00 Dextrose (Dextrose 50%-Water Syringe) 12.5 gm PRN Q15MIN PRN IV SEE COMMENTS; Start 10/11/21 at 19:00 Dextrose (Iv Dextrose 5%) 250 ml PRN Q15MIN PRN IV SEE COMMENTS; Start 10/11/21 at 19:00 Potassium Chloride (Klor-Con) 40 meq 1X ONCE PO Last administered on 10/15/21at 10:21; Start 10/15/21 at 10:30; Stop 10/15/21 at 10:31; Status DC Magnesium Sulfate 50 ml @ 25 mls/hr 1X ONCE IV Last administered on 10/15/21at 10:20; Start 10/15/21 at 10:30; Stop 10/15/21 at 12:29; Status DC Baclofen (Lioresal) 10 mg Q8HRS PO Last administered on 10/17/21at 06:02; Start 10/16/21 at 22:00; Stop 10/17/21 at 11:58; Status DC Baclofen (Lioresal) 10 mg Q6HRS PO Last administered on 10/18/21at 11:47; Start 10/17/21 at 12:00 Triamcinolone Acetonide (Kenalog-40) 40 mg 1X ONCE IM ; Start 10/17/21 at 12:15; Stop 10/17/21 at 12:16; Status DC Bupivacaine HCl (Sensorcaine-Mpf 0.25%) 10 ml 1X ONCE IJ ; Start 10/17/21 at 12:00; Stop 10/17/21 at 12:01; Status DC Magnesium Sulfate 100 ml @ 25 mls/hr 1X ONCE IV Last administered on 10/18/21at 14:11; Start 10/18/21 at 14:30; Stop 10/18/21 at 18:29 Vitamin B Complex (Folbic Tablet) 1 tab DAILY PO Last administered on 10/18/21at 14:13; Start 10/18/21 at 14:30 Active Scripts Active Dok (Docusate Sodium) 100 Mg Capsule 100 Mg PO PRN BID PRN 30 Days Tylenol (Acetaminophen) 325 Mg Tablet 650 Mg PO PRN Q4HRS PRN 30 Days Valium (Diazepam) 5 Mg Tablet 5 Mg PO TID Atorvastatin Calcium 10 Mg Tablet 10 Mg PO QHS Reported Midodrine Hcl 2.5 Mg Tablet 2.5 Mg PO PRN 1X PRN Aspirin 81 Mg Tab.chew 81 Mg PO DAILY Baclofen 10 Mg Tablet 10 Mg PO BID Lyrica (Pregabalin) 100 Mg Capsule 100 Mg PO BID 30 Days Polyethylene Glycol 3350 2,500 Gm Powder 17 Gm PO DAILY 30 Days Micatin (Miconazole Nitrate) 14 Gm Cream..g. 1 Crispin TP TID Tradjenta (Linagliptin) 5 Mg Tablet 5 Mg PO DAILY Lidocaine PATCH (Lidocaine) 1 Each Adh..patch 1 Each TP DAILY REMOVE AFTER 12 HOURS Levemir (Insulin Detemir) 100 Unit/1 Ml Vial 4 Unit SQ HS Hydroxyzine Hcl 25 Mg Tablet 25 Mg PO PRN Q6HRS PRN Fluticasone Propionate Nasal [place] (Fluticasone Propionate) 16 Gm [place].susp 2 [place] NS DAILY Diclofenac Sodium 100 Gm Gel..gram. 100 Gm TP PRN TID PRN Losartan Potassium 100 Mg Tablet 25 Tab PO DAILY08 Vitals/I & O Vital Sign - Last 24 Hours 10/17/21 10/17/21 10/17/21 10/17/21 17:45 18:35 19:00 20:00 Temp 97.7 97.7 Pulse 77 Resp 20 B/P (MAP) 154/86 (108) Pulse Ox 96 O2 Delivery Room Air Room Air Room Air Room Air O2 Flow Rate 2.0 10/17/21 10/18/21 10/18/21 10/18/21 23:15 03:00 07:42 07:44 Temp 97.9 97.9 97.9 97.9 Pulse 73 61 Resp 18 16 B/P (MAP) 136/71 (92) 114/64 (81) Pulse Ox 97 97 O2 Delivery Room Air Room Air Room Air Room Air 10/18/21 10/18/21 10/18/21 10/18/21 07:45 07:45 08:14 12:00 Temp 98.2 98.2 Pulse 61 77 Resp 18 B/P (MAP) 114/64 118/68 (85) Pulse Ox 97 O2 Delivery Room Air Room Air Room Air 10/18/21 10/18/21 10/18/21 14:12 14:42 16:00 Temp 98.4 98.4 Pulse 76 Resp 18 B/P (MAP) 111/62 (78) Pulse Ox 97 97 O2 Delivery Room Air Room Air Room Air Intake and Output 10/17/21 10/17/21 10/18/21 15:00 23:00 07:00 Intake Total 360 ml 500 ml Output Total 1600 ml 500 ml Balance -1240 ml 0 ml Justifications for Admission Other Justification uncontrolled diabetes TODD RIVERA [employer] Oct 18, 2021 17:12
[2021-10-18 20:00] VITALS: BP 121/69
[2021-10-18] MEDS: LIDOCAINE (700MG/PATCH) PATCH. TP SCH (20:16)
[2021-10-18] MEDS: ATORVASTATIN CALCIUM 10 MG TABLET. PO SCH (20:16)
[2021-10-18] MEDS: INSULIN GLARGINE SYRINGE. SQ SCH (20:29)
[2021-10-18] MEDS: hydrOXYzine 25 MG TABLET PO PRN (22:28)
[2021-10-18 23:00] VITALS: BP 117/68
[2021-10-19 03:00] VITALS: BP 107/59
[2021-10-19] MEDS: oxyCODONE IR 5 MG TABLET PO PRN ×4 (03:20→21:06)
[2021-10-19] MEDS: BACLOFEN 10 MG TABLET. PO SCH ×3 (05:43→17:48)
[2021-10-19] MEDS: ACETAMINOPHEN 325 MG TABLET. PO PRN (05:44)
[2021-10-19 06:31] VITALS: BP 121/71
[2021-10-19] MEDS: hydrOXYzine 25 MG TABLET PO PRN (06:38)
[2021-10-19] MEDS: POLYETHYLENE GLYCOL 3350 17 GM PACKET. PO SCH (07:37)
[2021-10-19] MEDS: INSULIN LISPRO 300 UNITS/3 ML VIAL. SQ SCH ×2 (08:00→12:00)
[2021-10-19 08:15] VITALS: BP 116/64
[2021-10-19] MEDS: PREGABALIN 50 MG CAPSULE PO SCH ×2 (08:47→21:06)
[2021-10-19] MEDS: LINAGLIPTIN 5 MG TABLET PO SCH (08:47)
[2021-10-19] MEDS: LACTOBACILLUS RHAMNOSUS GG 1 CAPSULE. PO SCH ×2 (08:47→21:06)
[2021-10-19] MEDS: VITAMIN B12,B9,B6 COMPLEX 1 TABLET. PO SCH (08:47)
[2021-10-19] MEDS: diazePAM 5 MG TABLET PO SCH ×3 (08:48→21:00)
[2021-10-19] MEDS: ASCORBIC ACID 500 MG TABLET PO SCH (08:48)
[2021-10-19] MEDS: FLUTICASONE 50MCG/NASAL SPRAY 16GM BOTTLE. NS SCH (08:48)
[2021-10-19] MEDS: LOSARTAN POTASSIUM 25 MG TABLET. PO SCH (08:48)
--- NOTE | 2021-10-19 09:41 | PDOC ---
PROGRESS NOTES Date of Service DATE: 10/19/21 TIME: 09:39 Subjective Subjective No new complaints. Objective Objective Vital Signs Date Time Temp Pulse Resp B/P (MAP) Pulse Ox O2 Delivery O2 Flow Rate FiO2 10/19/21 09:18 97 Room Air 10/19/21 08:48 65 116/64 10/19/21 08:15 97.2 18 97.2 10/17/21 20:00 2.0 Intake and Output 10/19/21 07:00 Intake Total 240 ml Output Total 1500 ml Balance -1260 ml Intake Oral 240 ml Output Urine Total 1500 ml # Bowel Movements 2 Physical Exam Physical Exam He is alert,and more comfortable with rihgt shoulder area pain from tendinitis and mild degree of adhesive capsulitis and no change with his neurological status. Plan Plan of Care To continue present rehab efforts while waiting for placement. Comment Review of Relevant I have reviewed the following items michelle (where applicable) has been applied. Labs Laboratory Tests Test 10/17/21 11:55 10/17/21 14:26 10/17/21 20:31 10/18/21 07:51 Glucose (Fingerstick) 163 mg/dL (70-99) 167 mg/dL (70-99) 126 mg/dL (70-99) White Blood Count 10.6 x10^3/uL (4.0-11.0) Red Blood Count 3.63 x10^6/uL (4.30-5.70) Hemoglobin 10.0 g/dL (13.0-17.5) Hematocrit 31.3 % (39.0-53.0) Mean Corpuscular Volume 86 fL (79-100) Mean Corpuscular Hemoglobin 28 pg (25-35) Mean Corpuscular Hemoglobin Concent 32 g/dL (31-37) Red Cell Distribution Width 15.3 % (11.5-14.5) Platelet Count 279 x10^3/uL (140-400) Neutrophils (%) (Auto) 74 % (31-73) Lymphocytes (%) (Auto) 15 % (24-48) Monocytes (%) (Auto) 8 % (0-9) Eosinophils (%) (Auto) 2 % (0-3) Basophils (%) (Auto) 1 % (0-3) Neutrophils # (Auto) 7.8 x10^3/uL (1.8-7.7) Lymphocytes # (Auto) 1.6 x10^3/uL (1.0-4.8) Monocytes # (Auto) 0.9 x10^3/uL (0.0-1.1) Eosinophils # (Auto) 0.2 x10^3/uL (0.0-0.7) Basophils # (Auto) 0.1 x10^3/uL (0.0-0.2) Sodium Level 143 mmol/L (136-145) Potassium Level 3.6 mmol/L (3.5-5.1) Chloride Level 106 mmol/L (98-107) Carbon Dioxide Level 26 mmol/L (21-32) Anion Gap 11 (6-14) Blood Urea Nitrogen 10 mg/dL (8-26) Creatinine 0.8 mg/dL (0.7-1.3) Estimated GFR (Cockcroft-Gault) 118.9 Glucose Level 173 mg/dL (70-99) Calcium Level 8.2 mg/dL (8.5-10.1) Magnesium Level 1.6 mg/dL (1.8-2.4) Test 10/18/21 11:48 10/18/21 16:41 10/18/21 19:40 10/19/21 08:43 Glucose (Fingerstick) 182 mg/dL (70-99) 134 mg/dL (70-99) 150 mg/dL (70-99) 130 mg/dL (70-99) Laboratory Tests Test 10/18/21 11:48 10/18/21 16:41 10/18/21 19:40 10/19/21 08:43 Glucose (Fingerstick) 182 mg/dL (70-99) 134 mg/dL (70-99) 150 mg/dL (70-99) 130 mg/dL (70-99) Microbiology 10/01/21 Urine Culture - Final, Complete Escherichia Coli Escherichia Coli#2 Medications Current Medications Fentanyl Citrate (Fentanyl 2ml Vial) 25 mcg PRN Q5MIN PRN IVP MILD PAIN 1-3; Start 09/25/21 at 06:00; Stop 09/25/21 at 20:00; Status DC Fentanyl Citrate (Fentanyl 2ml Vial) 50 mcg PRN Q5MIN PRN IVP MODERATE PAIN 4-6 Last administered on 09/25/21at 13:48; Start 09/25/21 at 06:00; Stop 09/25/21 at 20:00; Status DC Morphine Sulfate (Morphine Sulfate) 1 mg PRN Q10MIN PRN IVP SEVERE PAIN 7-10 Last administered on 09/25/21at 14:21; Start 09/25/21 at 06:00; Stop 09/25/21 at 20:00; Status DC Ringer's Solution 1,000 ml @ 30 mls/hr Q24H IV Last administered on 09/25/21at 12:54; Start 09/25/21 at 06:00; Stop 09/25/21 at 17:59; Status DC Hydromorphone HCl (Dilaudid) 0.5 mg PRN Q10MIN PRN IVP SEVERE PAIN 7-10, 2nd CHOICE Last administered on 09/25/21at 16:53; Start 09/25/21 at 06:00; Stop 09/25/21 at 20:00; Status DC Prochlorperazine Edisylate (Compazine) 5 mg PACU PRN PRN IVP NAUSEA, MRX1; Start 09/25/21 at 06:00; Stop 09/25/21 at 20:00; Status DC Cefazolin Sodium 1 gm/Sodium Chloride 1,000 ml @ 1,000 mls/hr 1X ONCE IRR Last administered on 09/25/21at 10:14; Start 09/25/21 at 06:00; Stop 09/25/21 at 06:59; Status DC Cefazolin Sodium/ Dextrose 50 ml @ 100 mls/hr 1X PREOP PRN IV PRIOR TO PROCEDURE Last administered on 09/25/21at 09:30; Start 09/25/21 at 06:00; Stop 09/25/21 at 13:39; Status DC Insulin Human Lispro (HumaLOG VIAL for OP,RR ONLY) 0-10 units PRN Q1HR PRN SQ PER PROTOCOL Last administered on 09/25/21at 17:01; Start 09/25/21 at 07:00; Stop 09/25/21 at 18:00; Status DC Bupivacaine HCl/ Epinephrine Bitart (Sensorcain-Epi 0.5% Kit) 30 ml STK-MED ONCE INJ Last administered on 09/25/21at 10:14; Start 09/25/21 at 10:14; Stop 09/25/21 at 10:30; Status DC Ketorolac Tromethamine (Toradol Im) 60 mg STK-MED ONCE INJ Last administered on 09/25/21at 10:14; Start 09/25/21 at 10:14; Stop 09/25/21 at 10:30; Status DC Thrombin 20,000 unit STK-MED ONCE TP Last administered on 09/25/21at 10:14; Start 09/25/21 at 10:14; Stop 09/25/21 at 10:30; Status DC Gelatin (Gelfoam Size 100) 1 each STK-MED ONCE TP Last administered on 2at 10:14; Start 09/25/21 at 10:14; Stop 09/25/21 at 10:30; Status DC Acetaminophen (Tylenol) 650 mg PRN Q4HRS PRN PO TEMP OVER 100.4F OR MILD PAIN Last administered on 10/19/21at 05:44; Start 09/25/21 at 12:30 Aspirin (Aspirin Chewable) 81 mg DAILY PO Last administered on 09/26/21at 08:30; Start 09/26/21 at 09:00; Stop 09/28/21 at 17:19; Status DC Atorvastatin Calcium (Lipitor) 10 mg QHS PO Last administered on 10/18/21 20:16; Start 09/25/21 at 21:00 Baclofen (Lioresal) 10 mg BID PO Last administered on 10/16/21at 08:26; Start 09/25/21 at 21:00; Stop 10/16/21 at 13:21; Status DC Diazepam (Valium) 5 mg TID PO Last administered on 10/19/21 08:48; Start 09/25/21 at 14:00 Docusate Sodium (Colace) 100 mg PRN BID PRN PO HARD STOOLS Last administered on 10/15/21 10:22; Start 09/25/21 at 12:30 Fluticasone Propionate (Flonase) 2 spray DAILY NS Last administered on 10/17/21 12:58; Start 09/26/21 at 09:00 Hydroxyzine HCl (Atarax) 25 mg PRN Q6HRS PRN PO Itching (2ND Choice) Last administered on 10/19/21 06:38; Start 09/25/21 at 12:30 Lidocaine (Lidoderm) 1 patch QHS TP Last administered on 10/03/21 23:31; Start 09/25/21 at 20:00; Stop 10/05/21 at 01:01; Status DC Linagliptin (Tradjenta) 5 mg DAILY PO Last administered on 10/19/21 08:47; Start 09/25/21 at 13:00 Miconazole Nitrate (Monistat-Derm) 1 crispin TID TP Last administered on 10/04/21 20:08; Start 09/25/21 at 21:00; Stop 10/05/21 at 13:23; Status DC Midodrine (Proamatine) 2.5 mg PRN 1X PRN PO hypotension Last administered on 09/27/21 08:56; Start 09/25/21 at 12:30 Oxycodone HCl (Roxicodone) 10 mg PRN Q6HRS PRN PO MODERATE-SEVERE PAIN Last administered on 10/19/21 08:48; Start 09/25/21 at 12:30 Diclofenac Sodium (Voltaren) 1 crispin PRN TID PRN TP PAIN CONTROL; Start 09/25/21 at 13:15; Stop 09/25/21 at 18:37; Status DC Insulin Glargine (Lantus Syringe) 4 unit QHS SQ Last administered on 10/18/21 20:29; Start 09/25/21 at 21:00 Losartan Potassium (Cozaar) 25 mg DAILY08 PO Last administered on 10/19/21 08:48; Start 09/26/21 at 08:00 Polyethylene Glycol (miraLAX PACKET) 17 gm DAILY PO Last administered on 10/13/21 08:53; Start 09/25/21 at 14:00 Pregabalin (Lyrica) 100 mg BID PO Last administered on 10/19/21 08:47; Start 09/25/21 at 21:00 Acetaminophen (Tylenol) 650 mg PRN Q6HRS PRN PO MILD PAIN / TEMP > 100.3'F; Start 09/25/21 at 12:30; Status Cancel Al Hydroxide/Mg Hydroxide (Mylanta Plus Xs) 30 ml PRN Q3HRS PRN PO HEARTBURN / GAS; Start 09/25/21 at 12:30 Calcium Carbonate/ Glycine (Tums) 500 mg PRN Q3HRS PRN PO INDIGESTION; Start 09/25/21 at 12:30 Diphenhydramine HCl (Benadryl) 25 mg PRN Q6HRS PRN PO ITCHING (1ST CHOICE); Start 09/25/21 at 12:30 Naloxone HCl (Narcan) 0.1 mg PRN Q2MIN PRN IV SEE COMMENTS; Start 09/25/21 at 12:30 Sodium Chloride (Normal Saline Flush) 3 ml QSHIFT PRN IV AFTER MEDS AND BLOOD DRAWS; Start 09/25/21 at 12:30 Potassium Chloride/Sodium Chloride 1,000 ml @ 75 mls/hr [id number] IV Last administered on 09/26/21at 07:00; Start 09/25/21 at 12:30; Stop 09/26/21 at 17:33; Status DC Magnesium Hydroxide (Milk Of Magnesia) 2,400 mg PRN Q12HR PRN PO CONSTIPATION; Start 09/25/21 at 12:30 Cefazolin Sodium (Ancef) 1 gm Q8H IVP Last administered on 09/26/21at 04:14; Start 09/25/21 at 18:00; Stop 09/26/21 at 10:01; Status DC Fentanyl Citrate (Fentanyl 2ml Vial) 50 mcg PRN Q2HR PRN IVP MODERATE TO SEVERE PAIN Last administered on 10/05/21at 22:46; Start 09/25/21 at 12:30 Dextrose (Dextrose 50%-Water Syringe) 12.5 gm PRN Q15MIN PRN IV SEE COMMENTS; Start 09/25/21 at 12:30; Status Cancel Dextrose (Iv Dextrose 5%) 250 ml PRN Q15MIN PRN IV SEE COMMENTS; Start 09/25/21 at 12:30; Status Cancel Gelatin (Gelfoam Size 100) 1 each STK-MED ONCE .ROUTE ; Start 09/25/21 at 06:37; Stop 09/25/21 at 14:55; Status DC Bupivacaine HCl/ Epinephrine Bitart (Sensorcain-Epi 0.5% Kit) 30 ml STK-MED ONCE .ROUTE ; Start 09/25/21 at 06:37; Stop 09/25/21 at 14:55; Status DC Ketorolac Tromethamine (Toradol Im) 60 mg STK-MED ONCE .ROUTE ; Start 09/25/21 at 06:37; Stop 09/25/21 at 14:55; Status DC Thrombin 20,000 unit STK-MED ONCE TP ; Start 09/25/21 at 06:38; Stop 09/25/21 at 14:55; Status DC Propofol (Diprivan) 200 mg STK-MED ONCE IV ; Start 09/25/21 at 05:54; Stop 09/25/21 at 14:57; Status DC Lidocaine HCl (Lidocaine Pf 2% Vial) 5 ml STK-MED ONCE .ROUTE ; Start 09/25/21 at 05:54; Stop 09/25/21 at 14:57; Status DC Ondansetron HCl (Zofran) 4 mg STK-MED ONCE .ROUTE ; Start 09/25/21 at 05:54; Stop 09/25/21 at 14:57; Status DC Phenylephrine HCl (Ramone-Synephrine Inj) 10 mg STK-MED ONCE .ROUTE ; Start 09/25/21 at 05:54; Stop 09/25/21 at 14:57; Status DC Propofol 50 ml @ As Directed STK-MED ONCE IV ; Start 09/25/21 at 05:54; Stop 09/25/21 at 14:57; Status DC Dexamethasone Sodium Phosphate (Decadron) 4 mg STK-MED ONCE .ROUTE ; Start 09/25/21 at 05:54; Stop 09/25/21 at 14:57; Status DC Fentanyl Citrate (Fentanyl 2ml Vial) 100 mcg STK-MED ONCE .ROUTE ; Start 09/25/21 at 05:54; Stop 09/25/21 at 14:57; Status DC Succinylcholine Chloride (Anectine) 200 mg STK-MED ONCE .ROUTE ; Start 09/25/21 at 05:54; Stop 09/25/21 at 14:57; Status DC Remifentanil HCl (Ultiva) 1 mg STK-MED ONCE IV ; Start 09/25/21 at 05:54; Stop 09/25/21 at 14:57; Status DC Glycopyrrolate (Robinul) 1 mg STK-MED ONCE .ROUTE ; Start 09/25/21 at 07:11; Stop 09/25/21 at 15:01; Status DC Propofol 50 ml @ As Directed STK-MED ONCE IV ; Start 09/25/21 at 08:07; Stop 09/25/21 at 15:02; Status DC Ketamine HCl (Ketamine) 50 mg STK-MED ONCE .ROUTE ; Start 09/25/21 at 08:15; Stop 09/25/21 at 15:02; Status DC Hydromorphone HCl (Dilaudid) 2 mg STK-MED ONCE .ROUTE ; Start 09/25/21 at 10:44; Stop 09/25/21 at 15:03; Status DC Fentanyl Citrate (Fentanyl 2ml Vial) 100 mcg STK-MED ONCE .ROUTE ; Start 09/25/21 at 13:26; Stop 09/25/21 at 15:04; Status DC Morphine Sulfate (Morphine Sulfate) 2 mg STK-MED ONCE .ROUTE ; Start 09/25/21 at 14:04; Stop 09/25/21 at 15:05; Status DC Hydromorphone HCl (Dilaudid) 2 mg STK-MED ONCE .ROUTE ; Start 09/25/21 at 14:54; Stop 09/25/21 at 15:06; Status DC Menthol/Methyl Salicylate (Bengay Greaseless Cream) 1 crispin PRN Q30MIN PRN TP MUSCLE PAIN Last administered on 10/02/21at 21:03; Start 09/25/21 at 18:45 Mupirocin (Bactroban) 1 crispin BID NS Last administered on 10/12/21at 21:09; Start 09/26/21 at 09:00; Stop 10/13/21 at 07:56; Status DC Dexamethasone Sodium Phosphate (Decadron) 10 mg 1X ONCE IVP Last administered on 09/26/21at 07:31; Start 09/26/21 at 07:30; Stop 09/26/21 at 07:31; Status DC Cefazolin Sodium 1 gm/Sodium Chloride 1,000 ml @ 1,000 mls/hr 1X ONCE IRR Last administered on 09/26/21at 11:52; Start 09/26/21 at 10:30; Stop 09/26/21 at 11:29; Status DC Cefazolin Sodium (Ancef) 1 gm STK-MED ONCE IVP ; Start 09/26/21 at 10:05; Stop 09/26/21 at 10:06; Status DC Lidocaine HCl (Lidocaine Pf 2% Vial) 5 ml STK-MED ONCE .ROUTE ; Start 09/26/21 at 10:18; Stop 09/26/21 at 10:18; Status DC Ondansetron HCl (Zofran) 4 mg STK-MED ONCE .ROUTE ; Start 09/26/21 at 10:18; Stop 09/26/21 at 10:18; Status DC Propofol (Diprivan) 200 mg STK-MED ONCE IV ; Start 09/26/21 at 10:18; Stop 09/26/21 at 10:19; Status DC Dexamethasone Sodium Phosphate (Decadron) 4 mg STK-MED ONCE .ROUTE ; Start 09/26/21 at 10:18; Stop 09/26/21 at 10:19; Status DC Sevoflurane (Ultane) 30 ml STK-MED ONCE IH ; Start 09/26/21 at 10:18; Stop 09/26/21 at 10:19; Status DC Fentanyl Citrate (Fentanyl 2ml Vial) 100 mcg STK-MED ONCE .ROUTE ; Start 09/26/21 at 10:19; Stop 09/26/21 at 10:19; Status DC Rocuronium Anthony (Zemuron) 50 mg STK-MED ONCE .ROUTE ; Start 09/26/21 at 10:19; Stop 09/26/21 at 10:19; Status DC Insulin Human Lispro (HumaLOG VIAL for OP,RR ONLY) 0-10 units PRN Q1HR PRN SQ PER PROTOCOL Last administered on 09/26/21at 15:11; Start 09/26/21 at 10:30; Stop 09/26/21 at 18:00; Status DC Sugammadex Sodium (Bridion) 200 mg 1X ONCE IVP Last administered on 09/26/21at 10:30; Start 09/26/21 at 10:30; Stop 09/26/21 at 10:31; Status DC Gelatin (Gelfoam Size 100) 1 each STK-MED ONCE .ROUTE Last administered on 09/26/21at 11:52; Start 09/26/21 at 10:30; Stop 09/26/21 at 10:30; Status DC Bupivacaine HCl/ Epinephrine Bitart (Sensorcain-Epi 0.5% Kit) 30 ml STK-MED ONCE .ROUTE ; Start 09/26/21 at 10:30; Stop 09/26/21 at 10:30; Status DC Ketorolac Tromethamine (Toradol Im) 60 mg STK-MED ONCE .ROUTE ; Start 09/26/21 at 10:30; Stop 09/26/21 at 10:30; Status DC Thrombin 20,000 unit STK-MED ONCE TP Last administered on 09/26/21at 11:52; Start 09/26/21 at 10:30; Stop 09/26/21 at 10:31; Status DC Cefazolin Sodium/ Dextrose 50 ml @ As Directed STK-MED ONCE IV ; Start 09/26/21 at 10:32; Stop 09/26/21 at 10:32; Status DC Vancomycin HCl 1 gm/Sodium Chloride 250 ml @ 250 mls/hr PREOP PRN PRN IV PRIOR TO PROCEDURE; Start 09/26/21 at 10:45; Stop 09/26/21 at 14:00; Status DC Cefazolin Sodium/ Dextrose 50 ml @ 100 mls/hr 1X ONCE IV Last administered on 09/26/21at 11:00; Start 09/26/21 at 11:00; Stop 09/26/21 at 11:29; Status DC Dexamethasone Sodium Phosphate (Decadron) 4 mg STK-MED ONCE .ROUTE ; Start 09/26/21 at 11:04; Stop 09/26/21 at 11:04; Status DC Glycopyrrolate (Robinul) 1 mg STK-MED ONCE .ROUTE ; Start 09/26/21 at 11:04; Stop 09/26/21 at 11:04; Status DC Hydromorphone HCl (Dilaudid) 2 mg STK-MED ONCE .ROUTE ; Start 09/26/21 at 11:56; Stop 09/26/21 at 11:56; Status DC Fentanyl Citrate (Fentanyl 2ml Vial) 25 mcg PRN Q5MIN PRN IVP MILD PAIN 1-3; Start 09/26/21 at 14:30; Stop 09/26/21 at 18:15; Status DC Fentanyl Citrate (Fentanyl 2ml Vial) 50 mcg PRN Q5MIN PRN IVP MODERATE PAIN 4- 6; Start 09/26/21 at 14:30; Stop 09/26/21 at 18:15; Status DC Morphine Sulfate (Morphine Sulfate) 1 mg PRN Q10MIN PRN IVP SEVERE PAIN 7-10; Start 09/26/21 at 14:30; Stop 09/26/21 at 18:15; Status DC Ringer's Solution 1,000 ml @ 30 mls/hr Q24H IV Last administered on 09/26/21at 15:18; Start 09/26/21 at 14:30; Stop 09/26/21 at 21:00; Status DC Hydromorphone HCl (Dilaudid) 0.5 mg PRN Q10MIN PRN IVP SEVERE PAIN 7-10, 2nd CHOICE; Start 09/26/21 at 14:30; Stop 09/26/21 at 18:15; Status DC Prochlorperazine Edisylate (Compazine) 5 mg PACU PRN PRN IVP NAUSEA, MRX1; Start 09/26/21 at 14:30; Stop 09/26/21 at 21:00; Status DC Fentanyl Citrate (Fentanyl 2ml Vial) 100 mcg STK-MED ONCE .ROUTE ; Start 09/26/21 at 14:23; Stop 09/26/21 at 14:25; Status DC Fentanyl Citrate (Fentanyl 2ml Vial) 25 mcg PRN Q5MIN PRN IVP MILD PAIN 1-3; Start 09/26/21 at 14:30; Stop 09/27/21 at 14:29; Status UNV Fentanyl Citrate (Fentanyl 2ml Vial) 50 mcg PRN Q5MIN PRN IVP MODERATE PAIN 4- 6; Start 09/26/21 at 14:30; Stop 09/27/21 at 14:29; Status UNV Morphine Sulfate (Morphine Sulfate) 1 mg PRN Q10MIN PRN IVP SEVERE PAIN 7-10; Start 09/26/21 at 14:30; Stop 09/27/21 at 14:29; Status UNV Ringer's Solution 1,000 ml @ 30 mls/hr Q24H IV ; Start 09/26/21 at 14:30; Stop 09/27/21 at 02:29; Status UNV Hydromorphone HCl (Dilaudid) 0.5 mg PRN Q10MIN PRN IVP SEVERE PAIN 7-10, 2nd CHOICE; Start 09/26/21 at 14:30; Stop 09/27/21 at 14:29; Status UNV Prochlorperazine Edisylate (Compazine) 5 mg PACU PRN PRN IVP NAUSEA, MRX1; Start 09/26/21 at 14:30; Stop 09/27/21 at 14:29; Status UNV Dexamethasone Sodium Phosphate (Decadron) 4 mg Q6HRS IVP Last administered on 09/28/21at 05:06; Start 09/26/21 at 18:00; Stop 09/28/21 at 06:00; Status DC Sodium Chloride 1,000 ml @ 100 mls/hr Q10H IV Last administered on 10/05/21at 06:41; Start 09/26/21 at 17:30; Stop 10/05/21 at 13:48; Status DC Cefazolin Sodium (Ancef) 1 gm Q8HRS IVP ; Start 09/27/21 at 06:00; Stop 09/27/21 at 05:47; Status DC Vancomycin HCl 1 gm/Sodium Chloride 250 ml @ 166.667 mls/hr 1X ONCE IV Last administered on 09/27/21at 06:27; Start 09/27/21 at 06:00; Stop 09/27/21 at 07:29; Status DC Gadoterate Meglumine (Clariscan) 19 ml 1X ONCE IVP Last administered on 09/29/21at 10:32; Start 09/29/21 at 08:15; Stop 09/29/21 at 08:17; Status DC Bisacodyl (Dulcolax Supp) 10 mg PRN DAILY PRN [place] CONSTIPATION; Start 09/29/21 at 14:15 Lactulose (Lactulose) 20 gm PRN DAILY PRN PO CONSTIPATION, 2nd choice Last administered on 10/01/21at 08:35; Start 09/29/21 at 14:30 Ascorbic Acid (Vitamin C) 500 mg DAILY PO Last administered on 10/19/21at 08:48; Start 10/02/21 at 10:00 Levofloxacin/ Dextrose 100 ml @ 100 mls/hr Q24H IV Last administered on 10/02/21at 12:15; Start 10/02/21 at 12:00; Stop 10/03/21 at 08:57; Status DC Levofloxacin/ Dextrose 50 ml @ 50 mls/hr Q24H IV Last administered on 10/06/21at 15:19; Start 10/03/21 at 12:00; Stop 10/06/21 at 23:00; Status DC Lactobacillus Rhamnosus (Culturelle) 1 cap BID PO Last administered on 10/19/21at 08:47; Start 10/03/21 at 21:00 Lidocaine (Lidoderm) 1 patch QHS TP Last administered on 10/18/21at 20:16; Start 10/04/21 at 22:00 Levofloxacin (Levaquin) 250 mg DAILY06 PO Last administered on 10/11/21at 06:13; Start 10/07/21 at 06:00; Stop 10/11/21 at 12:00; Status DC Insulin Human Lispro (HumaLOG) 0-5 UNITS TIDWMEALS SQ Last administered on 10/18/21at 12:16; Start 10/12/21 at 08:00 Dextrose (Dextrose 50%-Water Syringe) 12.5 gm PRN Q15MIN PRN IV SEE COMMENTS; Start 10/11/21 at 19:00 Dextrose (Iv Dextrose 5%) 250 ml PRN Q15MIN PRN IV SEE COMMENTS; Start 10/11/21 at 19:00 Potassium Chloride (Klor-Con) 40 meq 1X ONCE PO Last administered on 10/15/21at 10:21; Start 10/15/21 at 10:30; Stop 10/15/21 at 10:31; Status DC Magnesium Sulfate 50 ml @ 25 mls/hr 1X ONCE IV Last administered on 10/15/21at 10:20; Start 10/15/21 at 10:30; Stop 10/15/21 at 12:29; Status DC Baclofen (Lioresal) 10 mg Q8HRS PO Last administered on 10/17/21at 06:02; Start 10/16/21 at 22:00; Stop 10/17/21 at 11:58; Status DC Baclofen (Lioresal) 10 mg Q6HRS PO Last administered on 10/19/21at 05:43; Start 10/17/21 at 12:00 Triamcinolone Acetonide (Kenalog-40) 40 mg 1X ONCE IM Last administered on 10/17/21at 12:15; Start 10/17/21 at 12:15; Stop 10/17/21 at 12:16; Status DC Bupivacaine HCl (Sensorcaine-Mpf 0.25%) 10 ml 1X ONCE IJ Last administered on 10/17/21at 12:00; Start 10/17/21 at 12:00; Stop 10/17/21 at 12:01; Status DC Magnesium Sulfate 100 ml @ 25 mls/hr 1X ONCE IV Last administered on 10/18/21at 14:11; Start 10/18/21 at 14:30; Stop 10/18/21 at 18:29; Status DC Vitamin B Complex (Folbic Tablet) 1 tab DAILY PO Last administered on 10/19/21at 08:47; Start 10/18/21 at 14:30 Active Scripts Active Dok (Docusate Sodium) 100 Mg Capsule 100 Mg PO PRN BID PRN 30 Days Tylenol (Acetaminophen) 325 Mg Tablet 650 Mg PO PRN Q4HRS PRN 30 Days Valium (Diazepam) 5 Mg Tablet 5 Mg PO TID Atorvastatin Calcium 10 Mg Tablet 10 Mg PO QHS Reported Midodrine Hcl 2.5 Mg Tablet 2.5 Mg PO PRN 1X PRN Aspirin 81 Mg Tab.chew 81 Mg PO DAILY Baclofen 10 Mg Tablet 10 Mg PO BID Lyrica (Pregabalin) 100 Mg Capsule 100 Mg PO BID 30 Days Polyethylene Glycol 3350 2,500 Gm Powder 17 Gm PO DAILY 30 Days Micatin (Miconazole Nitrate) 14 Gm Cream..g. 1 [place] TP TID Tradjenta (Linagliptin) 5 Mg Tablet 5 Mg PO DAILY Lidocaine PATCH (Lidocaine) 1 Each Adh..patch 1 Each TP DAILY REMOVE AFTER 12 HOURS Levemir (Insulin Detemir) 100 Unit/1 Ml Vial 4 Unit SQ HS Hydroxyzine Hcl 25 Mg Tablet 25 Mg PO PRN Q6HRS PRN Fluticasone Propionate Nasal [place] (Fluticasone Propionate) 16 Gm [place].susp 2 [place] NS DAILY Diclofenac Sodium 100 Gm Gel..gram. 100 Gm TP PRN TID PRN Losartan Potassium 100 Mg Tablet 25 Tab PO DAILY08 Vitals/I & O Vital Sign - Last 24 Hours 10/18/21 10/18/21 10/18/21 10/18/21 12:00 14:12 14:42 16:00 Temp 98.2 98.4 98.2 98.4 Pulse 77 76 Resp 18 18 B/P (MAP) 118/68 (85) 111/62 (78) Pulse Ox 97 97 97 O2 Delivery Room Air Room Air Room Air Room Air 10/18/21 10/18/21 10/18/21 10/19/21 20:00 20:00 23:00 03:00 Temp 97.7 98.0 97.9 97.7 98.0 97.9 Pulse 75 79 68 Resp 18 18 16 B/P (MAP) 121/69 (86) 117/68 (84) 107/59 (75) Pulse Ox 93 94 97 O2 Delivery Room Air Room Air Room Air Room Air 10/19/21 10/19/21 10/19/21 10/19/21 06:31 08:15 08:15 08:48 Temp 97.6 97.2 97.6 97.2 Pulse 75 65 65 Resp 18 18 B/P (MAP) 121/71 (88) 116/64 (81) 116/64 Pulse Ox 96 97 O2 Delivery Room Air Room Air Room Air 10/19/21 09:18 Pulse Ox 97 O2 Delivery Room Air Intake and Output 10/18/21 10/18/21 10/19/21 15:00 23:00 07:00 Intake Total 240 ml Output Total 1500 ml Balance 240 ml -1500 ml Justifications for Admission Other Justification uncontrolled diabetes TERRY JURADO MD Oct 19, 2021 09:41
--- NOTE | 2021-10-19 11:33 | PDOC ---
[employer] PROGRESS NOTE Date of Service DOS: DATE: 10/19/21 TIME: 11:31 Chief Complaint Chief Complaint Cervical spinal cord injury - Concern for C5 cord edema, cord compression, a right lateral C5 fracture, and concern for numerous ligamentous injuries. 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 S/p decompression 07/26/2021 and repeat surgeries 09/25 and 09/26 Diabetes - sliding scale plus basal HTN - prn hydralazine HLD - statin when taking PO Cervical laminectomy as per above, diabetes, hypertension, hyperlipidemia, arthritis, GERD, left knee arthroplasty and TIA S/p; IVC filter FEN - ADAT PPX - SCDs FULL CODE Dispo - Inpatient History of Present Illness History of Present Illness 10/19/2021 No acute events overnight. Patient seen examined bedside. Spasms have improved and pain overall has improved after adjustment with baclofen. Continuing with rehab modalities. Patient's chart, labs, images were reviewed and discussed with RN 10/18: Right shoulder radiograph with some degenerative changes. Had some spasming this morning, but feeling better currently. Mag 1.6. Discussed addition of B6, 9, 12 and needs for complex neuro rehab. 10/17/2021 No acute events overnight. Patient seen examined bedside. Still complaining of muscle spasms. Baclofen has been increased. He is already on Valium and Lyrica. Considering neurology consult for evaluation. Pending right shoulder x-ray. Patient's chart, labs, images were reviewed and discussed with RN 10/16: Seen in ICU notes spasming started again last night this happened about 6 times even when he tries to reach up and scratch his eyelid. Having some more pain in his right biceps and left Achilles area. 10/15: Seen bedside in ICU getting bed bath. Says his spasming is improved today having a little bit of shortness of breath but no cough. No chest pain. 10/14: Seen bedside in ICU. Still with spasming upon awakening in his hands and f eet still with some weakness in his left foot. Poor appetite. 10/13: Patient seen and examined. Discussed with neurosurgery nurse practitioner Roberta 10/12: Patient seen and examined 10/11: Patient seen and examined. His discharge was held again as he was not accepted at [facility] 10/09: His sister is here as well discussed with her. Plan is to get the patient to [facility] residential if they accept him 10/08: Patient seen and examined. He is moving his toes more each day 10/07: Patient seen and examined in the ICU (he is actually in overfull patient). He is working with his nurse to try to use his nurse button and remote control. Started to move his toes a little bit 10/06/2021 Patient seen and examined in the ICU I discussed the case with his sister again I also discussed the case with case management [facility] rehab may consider taking him after all now that he is improved over the past 3 days 10/05/2021 Patient seen and examined in the ICU His nurses are starting to get ready to clean him up His sister is present Discussed with RN Discussed with case management we are still awaiting [facility] transfer if it can be arranged 10/04/2021 Patient seen and examined again in the ICU He remains very weak cannot move his legs was able to move his hands His sister is present I called case management they are checking into possibly if he could go to [facility] Chart reviewed 10/03/2021 Patient seen and examined in the ICU Chart reviewed Discussed with RN Called case management We are hoping to get the patient [facility] if [facility] (they are evaluating his admission criteria to rehab) 10/02/2021 Patient seen and examined in the ICU He is still unable to move his legs He is able to move his hands and arms slightly but is very weak at bedside Chart reviewed Discussed with RN I called case management to see if maybe he could go to [facility] rehab sometime soon 10/01 Patient evaluated examined at bedside. Continues to improve. Continue rehab. Plan discussed with bedside RN. 09/30 Patient evaluated examined at bedside. Clinically about the same from yester day. Continue rehab modalities. Labs stable. Plan discussed with bedside RN. 09/29 Patient evaluated at bedside. Underwent MRI this morning. Symptoms very similar to yesterday but he feels like he is regaining some function. Pain controlled. PT OT. Hemoglovin stable. 09/28 Evaluate examined at bedside. Resting in bed had no complaints to me. Said pain is quite improved. Did okay with transfusion yesterday. Continue current treatments. PT/OT. Discussed with bedside RNStar Diane 09/27 Patient evaluated examined at bedside. Was resting in bed easily awoken able to answer some questions. Some movement in his upper extremities but very limited in lower. Transfuse 1 unit today. Plan discussed with RN. Mr Terrell is a 60-year-old male w/ PMHx prediabetes, HLD, HTN and recent fall in July 2021 with cervical myelopathy and s/p cervical decompression with ACDF C5-6 07/26/2021 On 09/25/21 underwent cervical laminectomy, C3, C4, C5, C6, partial C7 with lateral mass fusion C3 through C7, Posterior nstrumentation C3-C7 on the left and posterior instrumentation C-C6 on the right. On 09/26/21 returned to OR for cervical hematoma evacuation. Vitals/I&O Vitals/I&O: Vital Signs Date Time Temp Pulse Resp B/P (MAP) Pulse Ox O2 Delivery O2 Flow Rate FiO2 10/19/21 09:18 97 Room Air 10/19/21 08:48 65 116/64 10/19/21 08:15 97.2 18 97.2 I & O 10/18/21 10/18/21 10/19/21 15:00 23:00 07:00 Intake Total 240 ml Output Total 1500 ml Balance 240 ml -1500 ml Physical Exam General: Alert, Oriented X3, Cooperative Heart: Regular rate Lungs: Clear Abdomen: Normal bowel sounds, Soft, No tenderness Extremities: No edema, Normal pulses Skin: Other (incision healing well) Labs Labs: Laboratory Tests Test 10/18/21 11:48 10/18/21 16:41 10/18/21 19:40 10/19/21 08:43 Glucose (Fingerstick) 182 mg/dL (70-99) 134 mg/dL (70-99) 150 mg/dL (70-99) 130 mg/dL (70-99) Comment Review of Relevant I have reviewed the following items michelle (where applicable) has been applied. Medications: Current Medications Medications (Trade) Dose Ordered Sig/Vernon Route PRN Reason Start Time Stop Time Status Last Admin Dose Admin Magnesium Sulfate 100 ml @ 25 mls/hr 1X ONCE IV 10/18/21 14:30 10/18/21 18:29 DC 3/2/22 14:11 Vitamin B Complex (Folbic Tablet) 1 tab DAILY PO 10/18/21 14:30 10/19/21 08:47 Justifications for Admission Other Justification uncontrolled diabetes SHANICE TAYLOR MD Oct 19, 2021 11:33
[2021-10-19] MEDS: CARNITINE 500 MG PO SCH (12:54)
--- NOTE | 2021-10-19 13:56 | PDOC ---
PROGRESS NOTES Date of Service DATE: 10/19/21 TIME: 13:55 Assessment Fall in July due to alcohol intoxication, he underwent cervical decompression, then returned a month ago for further cervical surgery, developed epidural hematoma, now has a C6 motor spinal level, no sensory spinal level. Spasticity due to above, better with higher dose of baclofen along with pregabalin and Valium. He is also on narcotics analgesics. Diabetic neuropathy History of syncope History of transient ischemic attack symptoms related to hypertension Plan Agree with current management by Dr. Pineda I will follow along at intervals. Subjective Feels much better Objective Vital Signs Date Time Temp Pulse Resp B/P (MAP) Pulse Ox O2 Delivery O2 Flow Rate FiO2 10/19/21 12:00 97 Room Air 10/19/21 08:48 65 116/64 10/19/21 08:15 97.2 18 97.2 Intake and Output 10/19/21 07:00 Intake Total 240 ml Output Total 1500 ml Balance -1260 ml Intake Oral 240 ml Output Urine Total 1500 ml # Bowel Movements 2 PHYSICAL EXAM Alert. Oriented to time, place and person. PERRL. EOMI. CN: no focal findings. Muscle tone: normal. Muscle strength: 0/5 legs, 3/5 distal arms, 4/5 left shoulder, 5/5 right shoulder DTR: 1+ Plantar reflex: Silent Gait: not examined Sensory exam: Stocking loss. No cerebellar signs elicited. Review of Relevant I have reviewed the following items michelle (where applicable) has been applied. Labs Laboratory Tests Test 10/17/21 14:26 10/17/21 20:31 10/18/21 07:51 10/18/21 11:48 White Blood Count 10.6 x10^3/uL (4.0-11.0) Red Blood Count 3.63 x10^6/uL (4.30-5.70) Hemoglobin 10.0 g/dL (13.0-17.5) Hematocrit 31.3 % (39.0-53.0) Mean Corpuscular Volume 86 fL (79-100) Mean Corpuscular Hemoglobin 28 pg (25-35) Mean Corpuscular Hemoglobin Concent 32 g/dL (31-37) Red Cell Distribution Width 15.3 % (11.5-14.5) Platelet Count 279 x10^3/uL (140-400) Neutrophils (%) (Auto) 74 % (31-73) Lymphocytes (%) (Auto) 15 % (24-48) Monocytes (%) (Auto) 8 % (0-9) Eosinophils (%) (Auto) 2 % (0-3) Basophils (%) (Auto) 1 % (0-3) Neutrophils # (Auto) 7.8 x10^3/uL (1.8-7.7) Lymphocytes # (Auto) 1.6 x10^3/uL (1.0-4.8) Monocytes # (Auto) 0.9 x10^3/uL (0.0-1.1) Eosinophils # (Auto) 0.2 x10^3/uL (0.0-0.7) Basophils # (Auto) 0.1 x10^3/uL (0.0-0.2) Sodium Level 143 mmol/L (136-145) Potassium Level 3.6 mmol/L (3.5-5.1) Chloride Level 106 mmol/L (98-107) Carbon Dioxide Level 26 mmol/L (21-32) Anion Gap 11 (6-14) Blood Urea Nitrogen 10 mg/dL (8-26) Creatinine 0.8 mg/dL (0.7-1.3) Estimated GFR (Cockcroft-Gault) 118.9 Glucose Level 173 mg/dL (70-99) Calcium Level 8.2 mg/dL (8.5-10.1) Magnesium Level 1.6 mg/dL (1.8-2.4) Glucose (Fingerstick) 167 mg/dL (70-99) 126 mg/dL (70-99) 182 mg/dL (70-99) Test 10/18/21 16:41 10/18/21 19:40 10/19/21 08:43 10/19/21 12:23 Glucose (Fingerstick) 134 mg/dL (70-99) 150 mg/dL (70-99) 130 mg/dL (70-99) 146 mg/dL (70-99) Laboratory Tests Test 10/18/21 16:41 10/18/21 19:40 10/19/21 08:43 10/19/21 12:23 Glucose (Fingerstick) 134 mg/dL (70-99) 150 mg/dL (70-99) 130 mg/dL (70-99) 146 mg/dL (70-99) Microbiology 10/01/21 Urine Culture - Final, Complete Escherichia Coli Escherichia Coli#2 Medications Current Medications Fentanyl Citrate (Fentanyl 2ml Vial) 25 mcg PRN Q5MIN PRN IVP MILD PAIN 1-3; Start 09/25/21 at 06:00; Stop 09/25/21 at 20:00; Status DC Fentanyl Citrate (Fentanyl 2ml Vial) 50 mcg PRN Q5MIN PRN IVP MODERATE PAIN 4-6 Last administered on 09/25/21at 13:48; Start 09/25/21 at 06:00; Stop 09/25/21 at 20:00; Status DC Morphine Sulfate (Morphine Sulfate) 1 mg PRN Q10MIN PRN IVP SEVERE PAIN 7-10 Last administered on 09/25/21at 14:21; Start 09/25/21 at 06:00; Stop 09/25/21 at 20:00; Status DC Ringer's Solution 1,000 ml @ 30 mls/hr Q24H IV Last administered on 09/25/21at 12:54; Start 09/25/21 at 06:00; Stop 09/25/21 at 17:59; Status DC Hydromorphone HCl (Dilaudid) 0.5 mg PRN Q10MIN PRN IVP SEVERE PAIN 7-10, 2nd CHOICE Last administered on 09/25/21at 16:53; Start 09/25/21 at 06:00; Stop 09/25/21 at 20:00; Status DC Prochlorperazine Edisylate (Compazine) 5 mg PACU PRN PRN IVP NAUSEA, MRX1; S tart 09/25/21 at 06:00; Stop 09/25/21 at 20:00; Status DC Cefazolin Sodium 1 gm/Sodium Chloride 1,000 ml @ 1,000 mls/hr 1X ONCE IRR Last administered on 09/25/21at 10:14; Start 09/25/21 at 06:00; Stop 09/25/21 at 06:59; Status DC Cefazolin Sodium/ Dextrose 50 ml @ 100 mls/hr 1X PREOP PRN IV PRIOR TO PROCEDURE Last administered on 09/25/21at 09:30; Start 09/25/21 at 06:00; Stop 09/25/21 at 13:39; Status DC Insulin Human Lispro (HumaLOG VIAL for OP,RR ONLY) 0-10 units PRN Q1HR PRN SQ PER PROTOCOL Last administered on 09/25/21at 17:01; Start 09/25/21 at 07:00; Stop 09/25/21 at 18:00; Status DC Bupivacaine HCl/ Epinephrine Bitart (Sensorcain-Epi 0.5% Kit) 30 ml STK-MED ONCE INJ Last administered on 09/25/21at 10:14; Start 09/25/21 at 10:14; Stop 09/25/21 at 10:30; Status DC Ketorolac Tromethamine (Toradol Im) 60 mg STK-MED ONCE INJ Last administered on 09/25/21at 10:14; Start 09/25/21 at 10:14; Stop 09/25/21 at 10:30; Status DC Thrombin 20,000 unit STK-MED ONCE TP Last administered on 09/25/21at 10:14; Start 09/25/21 at 10:14; Stop 09/25/21 at 10:30; Status DC Gelatin (Gelfoam Size 100) 1 each STK-MED ONCE TP Last administered on 09/25/21at 10:14; Start 09/25/21 at 10:14; Stop 09/25/21 at 10:30; Status DC Acetaminophen (Tylenol) 650 mg PRN Q4HRS PRN PO TEMP OVER 100.4F OR MILD PAIN Last administered on 10/19/21at 05:44; Start 09/25/21 at 12:30 Aspirin (Aspirin Chewable) 81 mg DAILY PO Last administered on 09/26/21at 08:30; Start 09/26/21 at 09:00; Stop 09/28/21 at 17:19; Status DC Atorvastatin Calcium (Lipitor) 10 mg QHS PO Last administered on 10/18/21 20:16; Start 09/25/21 at 21:00 Baclofen (Lioresal) 10 mg BID PO Last administered on 10/16/21at 08:26; Start 09/25/21 at 21:00; Stop 10/16/21 at 13:21; Status DC Diazepam (Valium) 5 mg TID PO Last administered on 10/19/21 08:48; Start 09/25/21 at 14:00 Docusate Sodium (Colace) 100 mg PRN BID PRN PO HARD STOOLS Last administered on 10/15/21 10:22; Start 09/25/21 at 12:30 Fluticasone Propionate (Flonase) 2 spray DAILY NS Last administered on 10/17/21 12:58; Start 09/26/21 at 09:00 Hydroxyzine HCl (Atarax) 25 mg PRN Q6HRS PRN PO Itching (2ND Choice) Last administered on 10/19/21 06:38; Start 09/25/21 at 12:30 Lidocaine (Lidoderm) 1 patch QHS TP Last administered on 10/03/21 23:31; Start 09/25/21 at 20:00; Stop 10/05/21 at 01:01; Status DC Linagliptin (Tradjenta) 5 mg DAILY PO Last administered on 10/19/21 08:47; Start 09/25/21 at 13:00 Miconazole Nitrate (Monistat-Derm) 1 crispin TID TP Last administered on 10/04/21 20:08; Start 09/25/21 at 21:00; Stop 10/05/21 at 13:23; Status DC Midodrine (Proamatine) 2.5 mg PRN 1X PRN PO hypotension Last administered on 09/27/21 08:56; Start 09/25/21 at 12:30 Oxycodone HCl (Roxicodone) 10 mg PRN Q6HRS PRN PO MODERATE-SEVERE PAIN Last administered on 10/19/21 08:48; Start 09/25/21 at 12:30 Diclofenac Sodium (Voltaren) 1 crispin PRN TID PRN TP PAIN CONTROL; Start 09/25/21 at 13:15; Stop 09/25/21 at 18:37; Status DC Insulin Glargine (Lantus Syringe) 4 unit QHS SQ Last administered on 10/18/21 20:29; Start 09/25/21 at 21:00 Losartan Potassium (Cozaar) 25 mg DAILY08 PO Last administered on 10/19/21 08:48; Start 09/26/21 at 08:00 Polyethylene Glycol (miraLAX PACKET) 17 gm DAILY PO Last administered on 10/13/21 08:53; Start 09/25/21 at 14:00 Pregabalin (Lyrica) 100 mg BID PO Last administered on 10/19/21at 08:47; Start 09/25/21 at 21:00 Acetaminophen (Tylenol) 650 mg PRN Q6HRS PRN PO MILD PAIN / TEMP > 100.3'F; Start 09/25/21 at 12:30; Status Cancel Al Hydroxide/Mg Hydroxide (Mylanta Plus Xs) 30 ml PRN Q3HRS PRN PO HEARTBURN / GAS; Start 09/25/21 at 12:30 Calcium Carbonate/ Glycine (Tums) 500 mg PRN Q3HRS PRN PO INDIGESTION; Start 09/25/21 at 12:30 Diphenhydramine HCl (Benadryl) 25 mg PRN Q6HRS PRN PO ITCHING (1ST CHOICE); Start 09/25/21 at 12:30 Naloxone HCl (Narcan) 0.1 mg PRN Q2MIN PRN IV SEE COMMENTS; Start 09/25/21 at 12:30 Sodium Chloride (Normal Saline Flush) 3 ml QSHIFT PRN IV AFTER MEDS AND BLOOD DRAWS; Start 09/25/21 at 12:30 Potassium Chloride/Sodium Chloride 1,000 ml @ 75 mls/hr [id number] IV Last administered on 09/26/21at 07:00; Start 09/25/21 at 12:30; Stop 09/26/21 at 17:33; Status DC Magnesium Hydroxide (Milk Of Magnesia) 2,400 mg PRN Q12HR PRN PO CONSTIPATION; Start 09/25/21 at 12:30 Cefazolin Sodium (Ancef) 1 gm Q8H IVP Last administered on 09/26/21at 04:14; Start 09/25/21 at 18:00; Stop 09/26/21 at 10:01; Status DC Fentanyl Citrate (Fentanyl 2ml Vial) 50 mcg PRN Q2HR PRN IVP MODERATE TO SEVERE PAIN Last administered on 10/05/21at 22:46; Start 09/25/21 at 12:30 Dextrose (Dextrose 50%-Water Syringe) 12.5 gm PRN Q15MIN PRN IV SEE COMMENTS; Start 09/25/21 at 12:30; Status Cancel Dextrose (Iv Dextrose 5%) 250 ml PRN Q15MIN PRN IV SEE COMMENTS; Start 09/25/21 at 12:30; Status Cancel Gelatin (Gelfoam Size 100) 1 each STK-MED ONCE .ROUTE ; Start 09/25/21 at 06:37; Stop 09/25/21 at 14:55; Status DC Bupivacaine HCl/ Epinephrine Bitart (Sensorcain-Epi 0.5% Kit) 30 ml STK-MED ONCE .ROUTE ; Start 09/25/21 at 06:37; Stop 09/25/21 at 14:55; Status DC Ketorolac Tromethamine (Toradol Im) 60 mg STK-MED ONCE .ROUTE ; Start 09/25/21 at 06:37; Stop 09/25/21 at 14:55; Status DC Thrombin 20,000 unit STK-MED ONCE TP ; Start 09/25/21 at 06:38; Stop 09/25/21 at 14:55; Status DC Propofol (Diprivan) 200 mg STK-MED ONCE IV ; Start 09/25/21 at 05:54; Stop 09/25/21 at 14:57; Status DC Lidocaine HCl (Lidocaine Pf 2% Vial) 5 ml STK-MED ONCE .ROUTE ; Start 09/25/21 at 05:54; Stop 09/25/21 at 14:57; Status DC Ondansetron HCl (Zofran) 4 mg STK-MED ONCE .ROUTE ; Start 09/25/21 at 05:54; Stop 09/25/21 at 14:57; Status DC Phenylephrine HCl (Ramone-Synephrine Inj) 10 mg STK-MED ONCE .ROUTE ; Start 09/25/21 at 05:54; Stop 09/25/21 at 14:57; Status DC Propofol 50 ml @ As Directed STK-MED ONCE IV ; Start 09/25/21 at 05:54; Stop 09/25/21 at 14:57; Status DC Dexamethasone Sodium Phosphate (Decadron) 4 mg STK-MED ONCE .ROUTE ; Start 09/25/21 at 05:54; Stop 09/25/21 at 14:57; Status DC Fentanyl Citrate (Fentanyl 2ml Vial) 100 mcg STK-MED ONCE .ROUTE ; Start 09/25/21 at 05:54; Stop 09/25/21 at 14:57; Status DC Succinylcholine Chloride (Anectine) 200 mg STK-MED ONCE .ROUTE ; Start 09/25/21 at 05:54; Stop 09/25/21 at 14:57; Status DC Remifentanil HCl (Ultiva) 1 mg STK-MED ONCE IV ; Start 09/25/21 at 05:54; Stop 09/25/21 at 14:57; Status DC Glycopyrrolate (Robinul) 1 mg STK-MED ONCE .ROUTE ; Start 09/25/21 at 07:11; Stop 09/25/21 at 15:01; Status DC Propofol 50 ml @ As Directed STK-MED ONCE IV ; Start 09/25/21 at 08:07; Stop 09/25/21 at 15:02; Status DC Ketamine HCl (Ketamine) 50 mg STK-MED ONCE .ROUTE ; Start 09/25/21 at 08:15; Stop 09/25/21 at 15:02; Status DC Hydromorphone HCl (Dilaudid) 2 mg STK-MED ONCE .ROUTE ; Start 09/25/21 at 10:44; Stop 09/25/21 at 15:03; Status DC Fentanyl Citrate (Fentanyl 2ml Vial) 100 mcg STK-MED ONCE .ROUTE ; Start 09/25/21 at 13:26; Stop 09/25/21 at 15:04; Status DC Morphine Sulfate (Morphine Sulfate) 2 mg STK-MED ONCE .ROUTE ; Start 09/25/21 at 14:04; Stop 09/25/21 at 15:05; Status DC Hydromorphone HCl (Dilaudid) 2 mg STK-MED ONCE .ROUTE ; Start 09/25/21 at 14:54; Stop 09/25/21 at 15:06; Status DC Menthol/Methyl Salicylate (Bengay Greaseless Cream) 1 crispin PRN Q30MIN PRN TP MUSCLE PAIN Last administered on 10/02/21at 21:03; Start 09/25/21 at 18:45 Mupirocin (Bactroban) 1 crispin BID NS Last administered on 10/12/21at 21:09; Start 09/26/21 at 09:00; Stop 10/13/21 at 07:56; Status DC Dexamethasone Sodium Phosphate (Decadron) 10 mg 1X ONCE IVP Last administered on 09/26/21at 07:31; Start 09/26/21 at 07:30; Stop 09/26/21 at 07:31; Status DC Cefazolin Sodium 1 gm/Sodium Chloride 1,000 ml @ 1,000 mls/hr 1X ONCE IRR Last administered on 09/26/21at 11:52; Start 09/26/21 at 10:30; Stop 09/26/21 at 11:29; Status DC Cefazolin Sodium (Ancef) 1 gm STK-MED ONCE IVP ; Start 09/26/21 at 10:05; Stop 09/26/21 at 10:06; Status DC Lidocaine HCl (Lidocaine Pf 2% Vial) 5 ml STK-MED ONCE .ROUTE ; Start 09/26/21 at 10:18; Stop 09/26/21 at 10:18; Status DC Ondansetron HCl (Zofran) 4 mg STK-MED ONCE .ROUTE ; Start 09/26/21 at 10:18; Stop 09/26/21 at 10:18; Status DC Propofol (Diprivan) 200 mg STK-MED ONCE IV ; Start 09/26/21 at 10:18; Stop 09/26/21 at 10:19; Status DC Dexamethasone Sodium Phosphate (Decadron) 4 mg STK-MED ONCE .ROUTE ; Start 09/26/21 at 10:18; Stop 09/26/21 at 10:19; Status DC Sevoflurane (Ultane) 30 ml STK-MED ONCE IH ; Start 09/26/21 at 10:18; Stop 09/26/21 at 10:19; Status DC Fentanyl Citrate (Fentanyl 2ml Vial) 100 mcg STK-MED ONCE .ROUTE ; Start 09/26/21 at 10:19; Stop 09/26/21 at 10:19; Status DC Rocuronium [place] (Zemuron) 50 mg STK-MED ONCE .ROUTE ; Start 09/26/21 at 10:19; Stop 09/26/21 at 10:19; Status DC Insulin Human Lispro (HumaLOG VIAL for OP,RR ONLY) 0-10 units PRN Q1HR PRN SQ PER PROTOCOL Last administered on 09/26/21at 15:11; Start 09/26/21 at 10:30; Stop 09/26/21 at 18:00; Status DC Sugammadex Sodium (Bridion) 200 mg 1X ONCE IVP Last administered on 09/26/21at 10:30; Start 09/26/21 at 10:30; Stop 09/26/21 at 10:31; Status DC Gelatin (Gelfoam Size 100) 1 each STK-MED ONCE .ROUTE Last administered on 09/26/21at 11:52; Start 09/26/21 at 10:30; Stop 09/26/21 at 10:30; Status DC Bupivacaine HCl/ Epinephrine Bitart (Sensorcain-Epi 0.5% Kit) 30 ml STK-MED ONCE .ROUTE ; Start 09/26/21 at 10:30; Stop 09/26/21 at 10:30; Status DC Ketorolac Tromethamine (Toradol Im) 60 mg STK-MED ONCE .ROUTE ; Start 09/26/21 at 10:30; Stop 09/26/21 at 10:30; Status DC Thrombin 20,000 unit STK-MED ONCE TP Last administered on 09/26/21at 11:52; Start 09/26/21 at 10:30; Stop 09/26/21 at 10:31; Status DC Cefazolin Sodium/ Dextrose 50 ml @ As Directed STK-MED ONCE IV ; Start 09/26/21 at 10:32; Stop 09/26/21 at 10:32; Status DC Vancomycin HCl 1 gm/Sodium Chloride 250 ml @ 250 mls/hr PREOP PRN PRN IV PRIOR TO PROCEDURE; Start 09/26/21 at 10:45; Stop 09/26/21 at 14:00; Status DC Cefazolin Sodium/ Dextrose 50 ml @ 100 mls/hr 1X ONCE IV Last administered on 09/26/21at 11:00; Start 09/26/21 at 11:00; Stop 09/26/21 at 11:29; Status DC Dexamethasone Sodium Phosphate (Decadron) 4 mg STK-MED ONCE .ROUTE ; Start 09/26/21 at 11:04; Stop 09/26/21 at 11:04; Status DC Glycopyrrolate (Robinul) 1 mg STK-MED ONCE .ROUTE ; Start 09/26/21 at 11:04; Stop 09/26/21 at 11:04; Status DC Hydromorphone HCl (Dilaudid) 2 mg STK-MED ONCE .ROUTE ; Start 09/26/21 at 11:56; Stop 09/26/21 at 11:56; Status DC Fentanyl Citrate (Fentanyl 2ml Vial) 25 mcg PRN Q5MIN PRN IVP MILD PAIN 1-3; Start 09/26/21 at 14:30; Stop 09/26/21 at 18:15; Status DC Fentanyl Citrate (Fentanyl 2ml Vial) 50 mcg PRN Q5MIN PRN IVP MODERATE PAIN 4- 6; Start 09/26/21 at 14:30; Stop 09/26/21 at 18:15; Status DC Morphine Sulfate (Morphine Sulfate) 1 mg PRN Q10MIN PRN IVP SEVERE PAIN 7-10; Start 09/26/21 at 14:30; Stop 09/26/21 at 18:15; Status DC Ringer's Solution 1,000 ml @ 30 mls/hr Q24H IV Last administered on 09/26/21at 15:18; Start 09/26/21 at 14:30; Stop 09/26/21 at 21:00; Status DC Hydromorphone HCl (Dilaudid) 0.5 mg PRN Q10MIN PRN IVP SEVERE PAIN 7-10, 2nd CHOICE; Start 09/26/21 at 14:30; Stop 09/26/21 at 18:15; Status DC Prochlorperazine Edisylate (Compazine) 5 mg PACU PRN PRN IVP NAUSEA, MRX1; Start 09/26/21 at 14:30; Stop 09/26/21 at 21:00; Status DC Fentanyl Citrate (Fentanyl 2ml Vial) 100 mcg STK-MED ONCE .ROUTE ; Start 09/26/21 at 14:23; Stop 09/26/21 at 14:25; Status DC Fentanyl Citrate (Fentanyl 2ml Vial) 25 mcg PRN Q5MIN PRN IVP MILD PAIN 1-3; Start 09/26/21 at 14:30; Stop 09/27/21 at 14:29; Status UNV Fentanyl Citrate (Fentanyl 2ml Vial) 50 mcg PRN Q5MIN PRN IVP MODERATE PAIN 4- 6; Start 09/26/21 at 14:30; Stop 09/27/21 at 14:29; Status UNV Morphine Sulfate (Morphine Sulfate) 1 mg PRN Q10MIN PRN IVP SEVERE PAIN 7-10; Start 09/26/21 at 14:30; Stop 09/27/21 at 14:29; Status UNV Ringer's Solution 1,000 ml @ 30 mls/hr Q24H IV ; Start 09/26/21 at 14:30; Stop 09/27/21 at 02:29; Status UNV Hydromorphone HCl (Dilaudid) 0.5 mg PRN Q10MIN PRN IVP SEVERE PAIN 7-10, 2nd CHOICE; Start 09/26/21 at 14:30; Stop 09/27/21 at 14:29; Status UNV Prochlorperazine Edisylate (Compazine) 5 mg PACU PRN PRN IVP NAUSEA, MRX1; Start 09/26/21 at 14:30; Stop 09/27/21 at 14:29; Status UNV Dexamethasone Sodium Phosphate (Decadron) 4 mg Q6HRS IVP Last administered on 09/28/21at 05:06; Start 09/26/21 at 18:00; Stop 09/28/21 at 06:00; Status DC Sodium Chloride 1,000 ml @ 100 mls/hr Q10H IV Last administered on 10/05/21at 06:41; Start 09/26/21 at 17:30; Stop 10/05/21 at 13:48; Status DC Cefazolin Sodium (Ancef) 1 gm Q8HRS IVP ; Start 09/27/21 at 06:00; Stop 09/27/21 at 05:47; Status DC Vancomycin HCl 1 gm/Sodium Chloride 250 ml @ 166.667 mls/hr 1X ONCE IV Last administered on 09/27/21at 06:27; Start 09/27/21 at 06:00; Stop 09/27/21 at 07:29; Status DC Gadoterate Meglumine (Clariscan) 19 ml 1X ONCE IVP Last administered on 09/29/21at 10:32; Start 09/29/21 at 08:15; Stop 09/29/21 at 08:17; Status DC Bisacodyl (Dulcolax Supp) 10 mg PRN DAILY PRN [place] CONSTIPATION; Start 09/29/21 at 14:15 Lactulose (Lactulose) 20 gm PRN DAILY PRN PO CONSTIPATION, 2nd choice Last administered on 10/01/21at 08:35; Start 09/29/21 at 14:30 Ascorbic Acid (Vitamin C) 500 mg DAILY PO Last administered on 10/19/21at 08:48; Start 10/02/21 at 10:00 Levofloxacin/ Dextrose 100 ml @ 100 mls/hr Q24H IV Last administered on 10/02/21at 12:15; Start 10/02/21 at 12:00; Stop 10/03/21 at 08:57; Status DC Levofloxacin/ Dextrose 50 ml @ 50 mls/hr Q24H IV Last administered on 10/06/21at 15:19; Start 10/03/21 at 12:00; Stop 10/06/21 at 23:00; Status DC Lactobacillus Rhamnosus (Culturelle) 1 cap BID PO Last administered on 10/19/21at 08:47; Start 10/03/21 at 21:00 Lidocaine (Lidoderm) 1 patch QHS TP Last administered on 10/18/21at 20:16; Start 10/04/21 at 22:00 Levofloxacin (Levaquin) 250 mg DAILY06 PO Last administered on 10/11/21at 06:13; Start 10/07/21 at 06:00; Stop 10/11/21 at 12:00; Status DC Insulin Human Lispro (HumaLOG) 0-5 UNITS TIDWMEALS SQ Last administered on 10/18/21at 12:16; Start 10/12/21 at 08:00 Dextrose (Dextrose 50%-Water Syringe) 12.5 gm PRN Q15MIN PRN IV SEE COMMENTS; Start 10/11/21 at 19:00 Dextrose (Iv Dextrose 5%) 250 ml PRN Q15MIN PRN IV SEE COMMENTS; Start 10/11/21 at 19:00 Potassium Chloride (Klor-Con) 40 meq 1X ONCE PO Last administered on 10/15/21at 10:21; Start 10/15/21 at 10:30; Stop 10/15/21 at 10:31; Status DC Magnesium Sulfate 50 ml @ 25 mls/hr 1X ONCE IV Last administered on 10/15/21at 10:20; Start 10/15/21 at 10:30; Stop 10/15/21 at 12:29; Status DC Baclofen (Lioresal) 10 mg Q8HRS PO Last administered on 10/17/21at 06:02; Start 10/16/21 at 22:00; Stop 10/17/21 at 11:58; Status DC Baclofen (Lioresal) 10 mg Q6HRS PO Last administered on 10/19/21at 12:54; Start 10/17/21 at 12:00 Triamcinolone Acetonide (Kenalog-40) 40 mg 1X ONCE IM Last administered on 10/17/21at 12:15; Start 10/17/21 at 12:15; Stop 10/17/21 at 12:16; Status DC Bupivacaine HCl (Sensorcaine-Mpf 0.25%) 10 ml 1X ONCE IJ Last administered on 10/17/21at 12:00; Start 10/17/21 at 12:00; Stop 10/17/21 at 12:01; Status DC Magnesium Sulfate 100 ml @ 25 mls/hr 1X ONCE IV Last administered on 10/18/21at 14:11; Start 10/18/21 at 14:30; Stop 10/18/21 at 18:29; Status DC Vitamin B Complex (Folbic Tablet) 1 tab DAILY PO Last administered on 10/19/21at 08:47; Start 10/18/21 at 14:30 Non-Formulary Medication (L-Carnitine 500 Mg Capsule) 1 ea DAILY PO Last administered on 10/19/21at 12:54; Start 10/19/21 at 13:00 Active Scripts Active Dok (Docusate Sodium) 100 Mg Capsule 100 Mg PO PRN BID PRN 30 Days Tylenol (Acetaminophen) 325 Mg Tablet 650 Mg PO PRN Q4HRS PRN 30 Days Valium (Diazepam) 5 Mg Tablet 5 Mg PO TID Atorvastatin Calcium 10 Mg Tablet 10 Mg PO QHS Reported Midodrine Hcl 2.5 Mg Tablet 2.5 Mg PO PRN 1X PRN Aspirin 81 Mg Tab.chew 81 Mg PO DAILY Baclofen 10 Mg Tablet 10 Mg PO BID Lyrica (Pregabalin) 100 Mg Capsule 100 Mg PO BID 30 Days Polyethylene Glycol 3350 2,500 Gm Powder 17 Gm PO DAILY 30 Days Micatin (Miconazole Nitrate) 14 Gm Cream..g. 1 Crispin TP TID Tradjenta (Linagliptin) 5 Mg Tablet 5 Mg PO DAILY Lidocaine PATCH (Lidocaine) 1 Each Adh..patch 1 Each TP DAILY REMOVE AFTER 12 HOURS Levemir (Insulin Detemir) 100 Unit/1 Ml Vial 4 Unit SQ HS Hydroxyzine Hcl 25 Mg Tablet 25 Mg PO PRN Q6HRS PRN Fluticasone Propionate Nasal Scammon (Fluticasone Propionate) 16 Gm Scammon.susp 2 Scammon NS DAILY Diclofenac Sodium 100 Gm Gel..gram. 100 Gm TP PRN TID PRN Losartan Potassium 100 Mg Tablet 25 Tab PO DAILY08 Vitals/I & O Vital Sign - Last 24 Hours 10/18/21 10/18/21 10/18/21 10/18/21 14:12 14:42 16:00 20:00 Temp 98.4 97.7 98.4 97.7 Pulse 76 75 Resp 18 18 B/P (MAP) 111/62 (78) 121/69 (86) Pulse Ox 97 97 93 O2 Delivery Room Air Room Air Room Air Room Air 10/18/21 10/18/21 10/19/21 10/19/21 20:00 23:00 03:00 06:31 Temp 98.0 97.9 97.6 98.0 97.9 97.6 Pulse 79 68 75 Resp 18 16 18 B/P (MAP) 117/68 (84) 107/59 (75) 121/71 (88) Pulse Ox 94 97 96 O2 Delivery Room Air Room Air Room Air Room Air 10/19/21 10/19/21 10/19/21 10/19/21 08:15 08:15 08:48 09:18 Temp 97.2 97.2 Pulse 65 65 Resp 18 B/P (MAP) 116/64 (81) 116/64 Pulse Ox 97 97 O2 Delivery Room Air Room Air Room Air 10/19/21 12:00 Pulse Ox 97 O2 Delivery Room Air Intake and Output 10/18/21 10/18/21 10/19/21 15:00 23:00 07:00 Intake Total 240 ml Output Total 1500 ml Balance 240 ml -1500 ml Justicifation of Admission Dx: Justifications for Admission: Justification of Admission Dx: Yes RICH HUGGINS MD Oct 19, 2021 13:56
[2021-10-19 16:00] VITALS: BP 126/73
--- NOTE | 2021-10-19 17:05 | PDOC ---
PROGRESS NOTES Date of Service DATE: 10/19/21 TIME: 17:02 Subjective Subjective POD #23 S/P Evacuation of epidural hematoma, s/p cervical laminectomy and fusion 09/25/21 pain improved, spasms improved Objective Objective Vital Signs Date Time Temp Pulse Resp B/P (MAP) Pulse Ox O2 Delivery O2 Flow Rate FiO2 10/19/21 14:42 97 Room Air 10/19/21 08:48 65 116/64 10/19/21 08:15 97.2 18 97.2 10/17/21 20:00 2.0 Intake and Output 10/19/21 07:00 Intake Total 240 ml Output Total 1500 ml Balance -1260 ml Intake Oral 240 ml Output Urine Total 1500 ml # Bowel Movements 2 Physical Exam General: Alert, Oriented X3, No acute distress Neuro: Normal speech, Other (strength 0/5 legs, 3/5 distal arms, 4/5 left shoulder, 5/5 right shoulder)) Plan Plan of Care continue current treatments PT/ OT SCDs awaiting placement Comment Review of Relevant I have reviewed the following items michelle (where applicable) has been applied. Labs Laboratory Tests Test 10/17/21 20:31 10/18/21 07:51 10/18/21 11:48 10/18/21 16:41 Glucose (Fingerstick) 167 mg/dL (70-99) 126 mg/dL (70-99) 182 mg/dL (70-99) 134 mg/dL (70-99) Test 10/18/21 19:40 10/19/21 08:43 10/19/21 12:23 Glucose (Fingerstick) 150 mg/dL (70-99) 130 mg/dL (70-99) 146 mg/dL (70-99) Laboratory Tests Test 10/18/21 19:40 10/19/21 08:43 10/19/21 12:23 Glucose (Fingerstick) 150 mg/dL (70-99) 130 mg/dL (70-99) 146 mg/dL (70-99) Microbiology 10/01/21 Urine Culture - Final, Complete Escherichia Coli Escherichia Coli#2 Medications Current Medications Fentanyl Citrate (Fentanyl 2ml Vial) 25 mcg PRN Q5MIN PRN IVP MILD PAIN 1-3; Start 09/25/21 at 06:00; Stop 09/25/21 at 20:00; Status DC Fentanyl Citrate (Fentanyl 2ml Vial) 50 mcg PRN Q5MIN PRN IVP MODERATE PAIN 4-6 Last administered on 09/25/21at 13:48; Start 09/25/21 at 06:00; Stop 09/25/21 at 20:00; Status DC Morphine Sulfate (Morphine Sulfate) 1 mg PRN Q10MIN PRN IVP SEVERE PAIN 7-10 Last administered on 09/25/21at 14:21; Start 09/25/21 at 06:00; Stop 09/25/21 at 20:00; Status DC Ringer's Solution 1,000 ml @ 30 mls/hr Q24H IV Last administered on 09/25/21at 12:54; Start 09/25/21 at 06:00; Stop 09/25/21 at 17:59; Status DC Hydromorphone HCl (Dilaudid) 0.5 mg PRN Q10MIN PRN IVP SEVERE PAIN 7-10, 2nd CHOICE Last administered on 09/25/21at 16:53; Start 09/25/21 at 06:00; Stop 09/25/21 at 20:00; Status DC Prochlorperazine Edisylate (Compazine) 5 mg PACU PRN PRN IVP NAUSEA, MRX1; Start 09/25/21 at 06:00; Stop 09/25/21 at 20:00; Status DC Cefazolin Sodium 1 gm/Sodium Chloride 1,000 ml @ 1,000 mls/hr 1X ONCE IRR Last administered on 09/25/21at 10:14; Start 09/25/21 at 06:00; Stop 09/25/21 at 06:59; Status DC Cefazolin Sodium/ Dextrose 50 ml @ 100 mls/hr 1X PREOP PRN IV PRIOR TO PROCEDURE Last administered on 09/25/21at 09:30; Start 09/25/21 at 06:00; Stop 09/25/21 at 13:39; Status DC Insulin Human Lispro (HumaLOG VIAL for OP,RR ONLY) 0-10 units PRN Q1HR PRN SQ PER PROTOCOL Last administered on 09/25/21at 17:01; Start 09/25/21 at 07:00; Stop 09/25/21 at 18:00; Status DC Bupivacaine HCl/ Epinephrine Bitart (Sensorcain-Epi 0.5% Kit) 30 ml STK-MED ONCE INJ Last administered on 09/25/21at 10:14; Start 09/25/21 at 10:14; Stop 09/25/21 at 10:30; Status DC Ketorolac Tromethamine (Toradol Im) 60 mg STK-MED ONCE INJ Last administered on 09/25/21at 10:14; Start 09/25/21 at 10:14; Stop 09/25/21 at 10:30; Status DC Thrombin 20,000 unit STK-MED ONCE TP Last administered on 09/25/21at 10:14; Start 09/25/21 at 10:14; Stop 09/25/21 at 10:30; Status DC Gelatin (Gelfoam Size 100) 1 each STK-MED ONCE TP Last administered on 09/25/21at 10:14; Start 09/25/21 at 10:14; Stop 09/25/21 at 10:30; Status DC Acetaminophen (Tylenol) 650 mg PRN Q4HRS PRN PO TEMP OVER 100.4F OR MILD PAIN Last administered on 10/19/21 05:44; Start 09/25/21 at 12:30 Aspirin (Aspirin Chewable) 81 mg DAILY PO Last administered on 09/26/21at 08:30; Start 09/26/21 at 09:00; Stop 09/28/21 at 17:19; Status DC Atorvastatin Calcium (Lipitor) 10 mg QHS PO Last administered on 10/18/21 20:16; Start 09/25/21 at 21:00 Baclofen (Lioresal) 10 mg BID PO Last administered on 10/16/21at 08:26; Start 09/25/21 at 21:00; Stop 10/16/21 at 13:21; Status DC Diazepam (Valium) 5 mg TID PO Last administered on 10/19/21 14:12; Start 09/25/21 at 14:00 Docusate Sodium (Colace) 100 mg PRN BID PRN PO HARD STOOLS Last administered on 10/15/21at 10:22; Start 09/25/21 at 12:30 Fluticasone Propionate (Flonase) 2 spray DAILY NS Last administered on 10/17/21at 12:58; Start 09/26/21 at 09:00 Hydroxyzine HCl (Atarax) 25 mg PRN Q6HRS PRN PO Itching (2ND Choice) Last administered on 10/19/21 06:38; Start 09/25/21 at 12:30 Lidocaine (Lidoderm) 1 patch QHS TP Last administered on 10/03/21at 23:31; Start 09/25/21 at 20:00; Stop 10/05/21 at 01:01; Status DC Linagliptin (Tradjenta) 5 mg DAILY PO Last administered on 10/19/21 08:47; Start 09/25/21 at 13:00 Miconazole Nitrate (Monistat-Derm) 1 crispin TID TP Last administered on 10/04/21at 20:08; Start 09/25/21 at 21:00; Stop 10/05/21 at 13:23; Status DC Midodrine (Proamatine) 2.5 mg PRN 1X PRN PO hypotension Last administered on 09/27/21at 08:56; Start 09/25/21 at 12:30 Oxycodone HCl (Roxicodone) 10 mg PRN Q6HRS PRN PO MODERATE-SEVERE PAIN Last administered on 10/19/21at 14:12; Start 09/25/21 at 12:30 Diclofenac Sodium (Voltaren) 1 crispin PRN TID PRN TP PAIN CONTROL; Start 09/25/21 at 13:15; Stop 09/25/21 at 18:37; Status DC Insulin Glargine (Lantus Syringe) 4 unit QHS SQ Last administered on 10/18/21at 20:29; Start 09/25/21 at 21:00 Losartan Potassium (Cozaar) 25 mg DAILY08 PO Last administered on 10/19/21at 08:48; Start 09/26/21 at 08:00 Polyethylene Glycol (miraLAX PACKET) 17 gm DAILY PO Last administered on 10/13/21 08:53; Start 09/25/21 at 14:00 Pregabalin (Lyrica) 100 mg BID PO Last administered on 10/19/21 08:47; Start 09/25/21 at 21:00 Acetaminophen (Tylenol) 650 mg PRN Q6HRS PRN PO MILD PAIN / TEMP > 100.3'F; Start 09/25/21 at 12:30; Status Cancel Al Hydroxide/Mg Hydroxide (Mylanta Plus Xs) 30 ml PRN Q3HRS PRN PO HEARTBURN / GAS; Start 09/25/21 at 12:30 Calcium Carbonate/ Glycine (Tums) 500 mg PRN Q3HRS PRN PO INDIGESTION; Start 09/25/21 at 12:30 Diphenhydramine HCl (Benadryl) 25 mg PRN Q6HRS PRN PO ITCHING (1ST CHOICE); Start 09/25/21 at 12:30 Naloxone HCl (Narcan) 0.1 mg PRN Q2MIN PRN IV SEE COMMENTS; Start 09/25/21 at 12:30 Sodium Chloride (Normal Saline Flush) 3 ml QSHIFT PRN IV AFTER MEDS AND BLOOD DRAWS; Start 09/25/21 at 12:30 Potassium Chloride/Sodium Chloride 1,000 ml @ 75 mls/hr [id number] IV Last administered on 09/26/21at 07:00; Start 09/25/21 at 12:30; Stop 09/26/21 at 17:33; Status DC Magnesium Hydroxide (Milk Of Magnesia) 2,400 mg PRN Q12HR PRN PO CONSTIPATION; Start 09/25/21 at 12:30 Cefazolin Sodium (Ancef) 1 gm Q8H IVP Last administered on 09/26/21at 04:14; Start 09/25/21 at 18:00; Stop 09/26/21 at 10:01; Status DC Fentanyl Citrate (Fentanyl 2ml Vial) 50 mcg PRN Q2HR PRN IVP MODERATE TO SEVERE PAIN Last administered on 10/05/21at 22:46; Start 09/25/21 at 12:30 Dextrose (Dextrose 50%-Water Syringe) 12.5 gm PRN Q15MIN PRN IV SEE COMMENTS; Start 09/25/21 at 12:30; Status Cancel Dextrose (Iv Dextrose 5%) 250 ml PRN Q15MIN PRN IV SEE COMMENTS; Start 09/25/21 at 12:30; Status Cancel Gelatin (Gelfoam Size 100) 1 each STK-MED ONCE .ROUTE ; Start 09/25/21 at 06:37; Stop 09/25/21 at 14:55; Status DC Bupivacaine HCl/ Epinephrine Bitart (Sensorcain-Epi 0.5% Kit) 30 ml STK-MED ONCE .ROUTE ; Start 09/25/21 at 06:37; Stop 09/25/21 at 14:55; Status DC Ketorolac Tromethamine (Toradol Im) 60 mg STK-MED ONCE .ROUTE ; Start 09/25/21 at 06:37; Stop 09/25/21 at 14:55; Status DC Thrombin 20,000 unit STK-MED ONCE TP ; Start 09/25/21 at 06:38; Stop 09/25/21 at 14:55; Status DC Propofol (Diprivan) 200 mg STK-MED ONCE IV ; Start 09/25/21 at 05:54; Stop 09/25/21 at 14:57; Status DC Lidocaine HCl (Lidocaine Pf 2% Vial) 5 ml STK-MED ONCE .ROUTE ; Start 09/25/21 at 05:54; Stop 09/25/21 at 14:57; Status DC Ondansetron HCl (Zofran) 4 mg STK-MED ONCE .ROUTE ; Start 09/25/21 at 05:54; Stop 09/25/21 at 14:57; Status DC Phenylephrine HCl (Ramone-Synephrine Inj) 10 mg STK-MED ONCE .ROUTE ; Start 09/25/21 at 05:54; Stop 09/25/21 at 14:57; Status DC Propofol 50 ml @ As Directed STK-MED ONCE IV ; Start 09/25/21 at 05:54; Stop 09/25/21 at 14:57; Status DC Dexamethasone Sodium Phosphate (Decadron) 4 mg STK-MED ONCE .ROUTE ; Start 09/25/21 at 05:54; Stop 09/25/21 at 14:57; Status DC Fentanyl Citrate (Fentanyl 2ml Vial) 100 mcg STK-MED ONCE .ROUTE ; Start 09/25/21 at 05:54; Stop 09/25/21 at 14:57; Status DC Succinylcholine Chloride (Anectine) 200 mg STK-MED ONCE .ROUTE ; Start 09/25/21 at 05:54; Stop 09/25/21 at 14:57; Status DC Remifentanil HCl (Ultiva) 1 mg STK-MED ONCE IV ; Start 09/25/21 at 05:54; Stop 09/25/21 at 14:57; Status DC Glycopyrrolate (Robinul) 1 mg STK-MED ONCE .ROUTE ; Start 09/25/21 at 07:11; Stop 09/25/21 at 15:01; Status DC Propofol 50 ml @ As Directed STK-MED ONCE IV ; Start 09/25/21 at 08:07; Stop 09/25/21 at 15:02; Status DC Ketamine HCl (Ketamine) 50 mg STK-MED ONCE .ROUTE ; Start 09/25/21 at 08:15; Stop 09/25/21 at 15:02; Status DC Hydromorphone HCl (Dilaudid) 2 mg STK-MED ONCE .ROUTE ; Start 09/25/21 at 10:44; Stop 09/25/21 at 15:03; Status DC Fentanyl Citrate (Fentanyl 2ml Vial) 100 mcg STK-MED ONCE .ROUTE ; Start 09/25/21 at 13:26; Stop 09/25/21 at 15:04; Status DC Morphine Sulfate (Morphine Sulfate) 2 mg STK-MED ONCE .ROUTE ; Start 09/25/21 at 14:04; Stop 09/25/21 at 15:05; Status DC Hydromorphone HCl (Dilaudid) 2 mg STK-MED ONCE .ROUTE ; Start 09/25/21 at 14:54; Stop 09/25/21 at 15:06; Status DC Menthol/Methyl Salicylate (Bengay Greaseless Cream) 1 crispin PRN Q30MIN PRN TP MUSCLE PAIN Last administered on 10/02/21at 21:03; Start 09/25/21 at 18:45 Mupirocin (Bactroban) 1 crispin BID NS Last administered on 10/12/21at 21:09; Start 09/26/21 at 09:00; Stop 10/13/21 at 07:56; Status DC Dexamethasone Sodium Phosphate (Decadron) 10 mg 1X ONCE IVP Last administered on 09/26/21at 07:31; Start 09/26/21 at 07:30; Stop 09/26/21 at 07:31; Status DC Cefazolin Sodium 1 gm/Sodium Chloride 1,000 ml @ 1,000 mls/hr 1X ONCE IRR Last administered on 09/26/21at 11:52; Start 09/26/21 at 10:30; Stop 09/26/21 at 11:29; Status DC Cefazolin Sodium (Ancef) 1 gm STK-MED ONCE IVP ; Start 09/26/21 at 10:05; Stop 09/26/21 at 10:06; Status DC Lidocaine HCl (Lidocaine Pf 2% Vial) 5 ml STK-MED ONCE .ROUTE ; Start 09/26/21 at 10:18; Stop 09/26/21 at 10:18; Status DC Ondansetron HCl (Zofran) 4 mg STK-MED ONCE .ROUTE ; Start 09/26/21 at 10:18; Stop 09/26/21 at 10:18; Status DC Propofol (Diprivan) 200 mg STK-MED ONCE IV ; Start 09/26/21 at 10:18; Stop 09/26/21 at 10:19; Status DC Dexamethasone Sodium Phosphate (Decadron) 4 mg STK-MED ONCE .ROUTE ; Start 09/26/21 at 10:18; Stop 09/26/21 at 10:19; Status DC Sevoflurane (Ultane) 30 ml STK-MED ONCE IH ; Start 09/26/21 at 10:18; Stop 09/26/21 at 10:19; Status DC Fentanyl Citrate (Fentanyl 2ml Vial) 100 mcg STK-MED ONCE .ROUTE ; Start 09/26/21 at 10:19; Stop 09/26/21 at 10:19; Status DC Rocuronium Paton (Zemuron) 50 mg STK-MED ONCE .ROUTE ; Start 09/26/21 at 10:19; Stop 09/26/21 at 10:19; Status DC Insulin Human Lispro (HumaLOG VIAL for OP,RR ONLY) 0-10 units PRN Q1HR PRN SQ PER PROTOCOL Last administered on 09/26/21at 15:11; Start 09/26/21 at 10:30; Stop 09/26/21 at 18:00; Status DC Sugammadex Sodium (Bridion) 200 mg 1X ONCE IVP Last administered on 09/26/21at 10:30; Start 09/26/21 at 10:30; Stop 09/26/21 at 10:31; Status DC Gelatin (Gelfoam Size 100) 1 each STK-MED ONCE .ROUTE Last administered on 09/26/21at 11:52; Start 09/26/21 at 10:30; Stop 09/26/21 at 10:30; Status DC Bupivacaine HCl/ Epinephrine Bitart (Sensorcain-Epi 0.5% Kit) 30 ml STK-MED ONCE .ROUTE ; Start 09/26/21 at 10:30; Stop 09/26/21 at 10:30; Status DC Ketorolac Tromethamine (Toradol Im) 60 mg STK-MED ONCE .ROUTE ; Start 09/26/21 at 10:30; Stop 09/26/21 at 10:30; Status DC Thrombin 20,000 unit STK-MED ONCE TP Last administered on 09/26/21at 11:52; Start 09/26/21 at 10:30; Stop 09/26/21 at 10:31; Status DC Cefazolin Sodium/ Dextrose 50 ml @ As Directed STK-MED ONCE IV ; Start 09/26/21 at 10:32; Stop 09/26/21 at 10:32; Status DC Vancomycin HCl 1 gm/Sodium Chloride 250 ml @ 250 mls/hr PREOP PRN PRN IV PRIOR TO PROCEDURE; Start 09/26/21 at 10:45; Stop 09/26/21 at 14:00; Status DC Cefazolin Sodium/ Dextrose 50 ml @ 100 mls/hr 1X ONCE IV Last administered on 09/26/21at 11:00; Start 09/26/21 at 11:00; Stop 09/26/21 at 11:29; Status DC Dexamethasone Sodium Phosphate (Decadron) 4 mg STK-MED ONCE .ROUTE ; Start 09/26/21 at 11:04; Stop 09/26/21 at 11:04; Status DC Glycopyrrolate (Robinul) 1 mg STK-MED ONCE .ROUTE ; Start 09/26/21 at 11:04; Stop 09/26/21 at 11:04; Status DC Hydromorphone HCl (Dilaudid) 2 mg STK-MED ONCE .ROUTE ; Start 09/26/21 at 11:56; Stop 09/26/21 at 11:56; Status DC Fentanyl Citrate (Fentanyl 2ml Vial) 25 mcg PRN Q5MIN PRN IVP MILD PAIN 1-3; Start 09/26/21 at 14:30; Stop 09/26/21 at 18:15; Status DC Fentanyl Citrate (Fentanyl 2ml Vial) 50 mcg PRN Q5MIN PRN IVP MODERATE PAIN 4- 6; Start 09/26/21 at 14:30; Stop 09/26/21 at 18:15; Status DC Morphine Sulfate (Morphine Sulfate) 1 mg PRN Q10MIN PRN IVP SEVERE PAIN 7-10; Start 09/26/21 at 14:30; Stop 09/26/21 at 18:15; Status DC Ringer's Solution 1,000 ml @ 30 mls/hr Q24H IV Last administered on 09/26/21at 15:18; Start 09/26/21 at 14:30; Stop 09/26/21 at 21:00; Status DC Hydromorphone HCl (Dilaudid) 0.5 mg PRN Q10MIN PRN IVP SEVERE PAIN 7-10, 2nd CHOICE; Start 09/26/21 at 14:30; Stop 09/26/21 at 18:15; Status DC Prochlorperazine Edisylate (Compazine) 5 mg PACU PRN PRN IVP NAUSEA, MRX1; Start 09/26/21 at 14:30; Stop 09/26/21 at 21:00; Status DC Fentanyl Citrate (Fentanyl 2ml Vial) 100 mcg STK-MED ONCE .ROUTE ; Start 09/26/21 at 14:23; Stop 09/26/21 at 14:25; Status DC Fentanyl Citrate (Fentanyl 2ml Vial) 25 mcg PRN Q5MIN PRN IVP MILD PAIN 1-3; Start 09/26/21 at 14:30; Stop 09/27/21 at 14:29; Status UNV Fentanyl Citrate (Fentanyl 2ml Vial) 50 mcg PRN Q5MIN PRN IVP MODERATE PAIN 4- 6; Start 09/26/21 at 14:30; Stop 09/27/21 at 14:29; Status UNV Morphine Sulfate (Morphine Sulfate) 1 mg PRN Q10MIN PRN IVP SEVERE PAIN 7-10; Start 09/26/21 at 14:30; Stop 09/27/21 at 14:29; Status UNV Ringer's Solution 1,000 ml @ 30 mls/hr Q24H IV ; Start 09/26/21 at 14:30; Stop 09/27/21 at 02:29; Status UNV Hydromorphone HCl (Dilaudid) 0.5 mg PRN Q10MIN PRN IVP SEVERE PAIN 7-10, 2nd CHOICE; Start 09/26/21 at 14:30; Stop 09/27/21 at 14:29; Status UNV Prochlorperazine Edisylate (Compazine) 5 mg PACU PRN PRN IVP NAUSEA, MRX1; Start 09/26/21 at 14:30; Stop 09/27/21 at 14:29; Status UNV Dexamethasone Sodium Phosphate (Decadron) 4 mg Q6HRS IVP Last administered on 09/28/21at 05:06; Start 09/26/21 at 18:00; Stop 09/28/21 at 06:00; Status DC Sodium Chloride 1,000 ml @ 100 mls/hr Q10H IV Last administered on 10/05/21at 06:41; Start 09/26/21 at 17:30; Stop 10/05/21 at 13:48; Status DC Cefazolin Sodium (Ancef) 1 gm Q8HRS IVP ; Start 09/27/21 at 06:00; Stop 09/27/21 at 05:47; Status DC Vancomycin HCl 1 gm/Sodium Chloride 250 ml @ 166.667 mls/hr 1X ONCE IV Last administered on 09/27/21at 06:27; Start 09/27/21 at 06:00; Stop 09/27/21 at 07:29; Status DC Gadoterate Meglumine (Clariscan) 19 ml 1X ONCE IVP Last administered on 09/29/21at 10:32; Start 09/29/21 at 08:15; Stop 09/29/21 at 08:17; Status DC Bisacodyl (Dulcolax Supp) 10 mg PRN DAILY PRN MT CONSTIPATION; Start 09/29/21 at 14:15 Lactulose (Lactulose) 20 gm PRN DAILY PRN PO CONSTIPATION, 2nd choice Last administered on 10/01/21at 08:35; Start 09/29/21 at 14:30 Ascorbic Acid (Vitamin C) 500 mg DAILY PO Last administered on 10/19/21at 08:48; Start 10/02/21 at 10:00 Levofloxacin/ Dextrose 100 ml @ 100 mls/hr Q24H IV Last administered on 10/02/21at 12:15; Start 10/02/21 at 12:00; Stop 10/03/21 at 08:57; Status DC Levofloxacin/ Dextrose 50 ml @ 50 mls/hr Q24H IV Last administered on 10/06/21at 15:19; Start 10/03/21 at 12:00; Stop 10/06/21 at 23:00; Status DC Lactobacillus Rhamnosus (Culturelle) 1 cap BID PO Last administered on 10/19/21at 08:47; Start 10/03/21 at 21:00 Lidocaine (Lidoderm) 1 patch QHS TP Last administered on 10/18/21at 20:16; Start 10/04/21 at 22:00 Levofloxacin (Levaquin) 250 mg DAILY06 PO Last administered on 10/11/21at 06:13; Start 10/07/21 at 06:00; Stop 10/11/21 at 12:00; Status DC Insulin Human Lispro (HumaLOG) 0-5 UNITS TIDWMEALS SQ Last administered on 10/18/21at 12:16; Start 10/12/21 at 08:00; Stop 10/19/21 at 15:15; Status DC Dextrose (Dextrose 50%-Water Syringe) 12.5 gm PRN Q15MIN PRN IV SEE COMMENTS; Start 10/11/21 at 19:00 Dextrose (Iv Dextrose 5%) 250 ml PRN Q15MIN PRN IV SEE COMMENTS; Start 10/11/21 at 19:00 Potassium Chloride (Klor-Con) 40 meq 1X ONCE PO Last administered on 10/15/21at 10:21; Start 10/15/21 at 10:30; Stop 10/15/21 at 10:31; Status DC Magnesium Sulfate 50 ml @ 25 mls/hr 1X ONCE IV Last administered on 10/15/21at 10:20; Start 10/15/21 at 10:30; Stop 10/15/21 at 12:29; Status DC Baclofen (Lioresal) 10 mg Q8HRS PO Last administered on 10/17/21at 06:02; Start 10/16/21 at 22:00; Stop 10/17/21 at 11:58; Status DC Baclofen (Lioresal) 10 mg Q6HRS PO Last administered on 10/19/21at 12:54; Start 10/17/21 at 12:00 Triamcinolone Acetonide (Kenalog-40) 40 mg 1X ONCE IM Last administered on 10/17/21at 12:15; Start 10/17/21 at 12:15; Stop 10/17/21 at 12:16; Status DC Bupivacaine HCl (Sensorcaine-Mpf 0.25%) 10 ml 1X ONCE IJ Last administered on 10/17/21at 12:00; Start 10/17/21 at 12:00; Stop 10/17/21 at 12:01; Status DC Magnesium Sulfate 100 ml @ 25 mls/hr 1X ONCE IV Last administered on 10/18/21at 14:11; Start 10/18/21 at 14:30; Stop 10/18/21 at 18:29; Status DC Vitamin B Complex (Folbic Tablet) 1 tab DAILY PO Last administered on 10/19/21at 08:47; Start 10/18/21 at 14:30 Non-Formulary Medication (L-Carnitine 500 Mg Capsule) 1 ea DAILY PO Last administered on 10/19/21at 12:54; Start 10/19/21 at 13:00 Insulin Human Lispro (HumaLOG) 0-5 UNITS PRN BFRMEAL PRN SQ SEE ADMIN INSTRUCTIONS; Start 10/19/21 at 15:15 Active Scripts Active Dok (Docusate Sodium) 100 Mg Capsule 100 Mg PO PRN BID PRN 30 Days Tylenol (Acetaminophen) 325 Mg Tablet 650 Mg PO PRN Q4HRS PRN 30 Days Valium (Diazepam) 5 Mg Tablet 5 Mg PO TID Atorvastatin Calcium 10 Mg Tablet 10 Mg PO QHS Reported Midodrine Hcl 2.5 Mg Tablet 2.5 Mg PO PRN 1X PRN Aspirin 81 Mg Tab.chew 81 Mg PO DAILY Baclofen 10 Mg Tablet 10 Mg PO BID Lyrica (Pregabalin) 100 Mg Capsule 100 Mg PO BID 30 Days Polyethylene Glycol 3350 2,500 Gm Powder 17 Gm PO DAILY 30 Days Micatin (Miconazole Nitrate) 14 Gm Cream..g. 1 Crispin TP TID Tradjenta (Linagliptin) 5 Mg Tablet 5 Mg PO DAILY Lidocaine PATCH (Lidocaine) 1 Each Adh..patch 1 Each TP DAILY REMOVE AFTER 12 HOURS Levemir (Insulin Detemir) 100 Unit/1 Ml Vial 4 Unit SQ HS Hydroxyzine Hcl 25 Mg Tablet 25 Mg PO PRN Q6HRS PRN Fluticasone Propionate Nasal [place] (Fluticasone Propionate) 16 Gm [place].susp 2 [place] NS DAILY Diclofenac Sodium 100 Gm Gel..gram. 100 Gm TP PRN TID PRN Losartan Potassium 100 Mg Tablet 25 Tab PO DAILY08 Vitals/I & O Vital Sign - Last 24 Hours 10/18/21 10/18/21 10/18/21 10/19/21 20:00 20:00 23:00 03:00 Temp 97.7 98.0 97.9 97.7 98.0 97.9 Pulse 75 79 68 Resp 18 18 16 B/P (MAP) 121/69 (86) 117/68 (84) 107/59 (75) Pulse Ox 93 94 97 O2 Delivery Room Air Room Air Room Air Room Air 10/19/21 10/19/21 10/19/21 10/19/21 06:31 08:15 08:15 08:48 Temp 97.6 97.2 97.6 97.2 Pulse 75 65 65 Resp 18 18 B/P (MAP) 121/71 (88) 116/64 (81) 116/64 Pulse Ox 96 97 O2 Delivery Room Air Room Air Room Air 10/19/21 10/19/21 10/19/21 10/19/21 09:18 12:00 14:12 14:42 Pulse Ox 97 97 97 97 O2 Delivery Room Air Room Air Room Air Room Air Intake and Output 10/18/21 10/18/21 10/19/21 15:00 23:00 07:00 Intake Total 240 ml Output Total 1500 ml Balance 240 ml -1500 ml Justifications for Admission Other Justification uncontrolled diabetes TODD RIVERA APRN Oct 19, 2021 17:05
[2021-10-19] MEDS: ATORVASTATIN CALCIUM 10 MG TABLET. PO SCH (21:06)
[2021-10-19] MEDS: LIDOCAINE (700MG/PATCH) PATCH. TP SCH (21:07)
[2021-10-19] MEDS: INSULIN GLARGINE SYRINGE. SQ SCH (21:15)
[2021-10-19 23:00] VITALS: BP 108/49
[2021-10-20 03:00] VITALS: BP 103/53
[2021-10-20] MEDS: BACLOFEN 10 MG TABLET. PO SCH ×4 (06:12→17:26)
[2021-10-20 07:00] VITALS: BP 104/55
[2021-10-20] MEDS: oxyCODONE IR 5 MG TABLET PO PRN ×3 (08:51→21:36)
[2021-10-20] MEDS: ACETAMINOPHEN 325 MG TABLET. PO PRN ×2 (08:51→20:27)
[2021-10-20] MEDS: PREGABALIN 50 MG CAPSULE PO SCH ×2 (08:52→21:21)
[2021-10-20] MEDS: LACTOBACILLUS RHAMNOSUS GG 1 CAPSULE. PO SCH ×2 (08:52→21:20)
[2021-10-20] MEDS: ASCORBIC ACID 500 MG TABLET PO SCH (08:52)
[2021-10-20] MEDS: VITAMIN B12,B9,B6 COMPLEX 1 TABLET. PO SCH (08:53)
[2021-10-20] MEDS: LINAGLIPTIN 5 MG TABLET PO SCH (08:53)
[2021-10-20] MEDS: CARNITINE 500 MG PO SCH (08:54)
[2021-10-20] MEDS: LOSARTAN POTASSIUM 25 MG TABLET. PO SCH (08:57)
[2021-10-20] MEDS: POLYETHYLENE GLYCOL 3350 17 GM PACKET. PO SCH (08:59)
[2021-10-20] MEDS: FLUTICASONE 50MCG/NASAL SPRAY 16GM BOTTLE. NS SCH (08:59)
[2021-10-20] MEDS: diazePAM 5 MG TABLET PO SCH ×3 (09:00→23:07)
--- NOTE | 2021-10-20 10:07 | PDOC ---
PROGRESS NOTES Date of Service DATE: 10/20/21 TIME: 10:04 Subjective Subjective No new complaints. Right shoulder pain continues. Objective Objective Vital Signs Date Time Temp Pulse Resp B/P (MAP) Pulse Ox O2 Delivery O2 Flow Rate FiO2 10/20/21 08:57 77 128/76 10/20/21 08:51 Room Air 10/20/21 07:00 97.9 17 97 97.9 10/17/21 20:00 2.0 Intake and Output 10/20/21 07:00 Output Total 1350 ml Balance -1350 ml Output Urine Total 1350 ml # Bowel Movements 1 Physical Exam Physical Exam He had painfully limited right shoulder joint ROM and he is moving his toes and trace hip adduction bilaterally and trace right hip extension. Plan Plan of Care At his request,I have injected painful rihgt shoulder joint under aseptic skin technique with alcohol skin prep using 2 ml of 0.25% marcaine solution mixed with 1 ml od triamcinilone acetonide 40 mg/1 ml solution and he tolerated the p rocedure satisfactorily without any side effects. Comment Review of Relevant I have reviewed the following items michelle (where applicable) has been applied. Labs Laboratory Tests Test 10/18/21 11:48 10/18/21 16:41 10/18/21 19:40 10/19/21 08:43 Glucose (Fingerstick) 182 mg/dL (70-99) 134 mg/dL (70-99) 150 mg/dL (70-99) 130 mg/dL (70-99) Test 10/19/21 12:23 10/20/21 06:21 Glucose (Fingerstick) 146 mg/dL (70-99) 121 mg/dL (70-99) Laboratory Tests Test 10/19/21 12:23 10/20/21 06:21 Glucose (Fingerstick) 146 mg/dL (70-99) 121 mg/dL (70-99) Microbiology 10/01/21 Urine Culture - Final, Complete Escherichia Coli Escherichia Coli#2 Medications Current Medications Fentanyl Citrate (Fentanyl 2ml Vial) 25 mcg PRN Q5MIN PRN IVP MILD PAIN 1-3; Start 09/25/21 at 06:00; Stop 09/25/21 at 20:00; Status DC Fentanyl Citrate (Fentanyl 2ml Vial) 50 mcg PRN Q5MIN PRN IVP MODERATE PAIN 4-6 Last administered on 09/25/21at 13:48; Start 09/25/21 at 06:00; Stop 09/25/21 at 20:00; Status DC Morphine Sulfate (Morphine Sulfate) 1 mg PRN Q10MIN PRN IVP SEVERE PAIN 7-10 Last administered on 09/25/21at 14:21; Start 09/25/21 at 06:00; Stop 09/25/21 at 20:00; Status DC Ringer's Solution 1,000 ml @ 30 mls/hr Q24H IV Last administered on 09/25/21at 12:54; Start 09/25/21 at 06:00; Stop 09/25/21 at 17:59; Status DC Hydromorphone HCl (Dilaudid) 0.5 mg PRN Q10MIN PRN IVP SEVERE PAIN 7-10, 2nd CHOICE Last administered on 09/25/21at 16:53; Start 09/25/21 at 06:00; Stop 09/25/21 at 20:00; Status DC Prochlorperazine Edisylate (Compazine) 5 mg PACU PRN PRN IVP NAUSEA, MRX1; Start 09/25/21 at 06:00; Stop 09/25/21 at 20:00; Status DC Cefazolin Sodium 1 gm/Sodium Chloride 1,000 ml @ 1,000 mls/hr 1X ONCE IRR Last administered on 09/25/21at 10:14; Start 09/25/21 at 06:00; Stop 09/25/21 at 06:59; Status DC Cefazolin Sodium/ Dextrose 50 ml @ 100 mls/hr 1X PREOP PRN IV PRIOR TO PROCEDURE Last administered on 09/25/21at 09:30; Start 09/25/21 at 06:00; Stop 09/25/21 at 13:39; Status DC Insulin Human Lispro (HumaLOG VIAL for OP,RR ONLY) 0-10 units PRN Q1HR PRN SQ PER PROTOCOL Last administered on 09/25/21at 17:01; Start 09/25/21 at 07:00; Stop 09/25/21 at 18:00; Status DC Bupivacaine HCl/ Epinephrine Bitart (Sensorcain-Epi 0.5% Kit) 30 ml STK-MED ONCE INJ Last administered on 09/25/21at 10:14; Start 09/25/21 at 10:14; Stop 09/25/21 at 10:30; Status DC Ketorolac Tromethamine (Toradol Im) 60 mg STK-MED ONCE INJ Last administered on 09/25/21 10:14; Start 09/25/21 at 10:14; Stop 09/25/21 at 10:30; Status DC Thrombin 20,000 unit STK-MED ONCE TP Last administered on 09/25/21at 10:14; Star t 09/25/21 at 10:14; Stop 09/25/21 at 10:30; Status DC Gelatin (Gelfoam Size 100) 1 each STK-MED ONCE TP Last administered on 09/25/21at 10:14; Start 09/25/21 at 10:14; Stop 09/25/21 at 10:30; Status DC Acetaminophen (Tylenol) 650 mg PRN Q4HRS PRN PO TEMP OVER 100.4F OR MILD PAIN Last administered on 10/20/21 08:51; Start 09/25/21 at 12:30 Aspirin (Aspirin Chewable) 81 mg DAILY PO Last administered on 09/26/21at 08:30; Start 09/26/21 at 09:00; Stop 09/28/21 at 17:19; Status DC Atorvastatin Calcium (Lipitor) 10 mg QHS PO Last administered on 10/19/21 21:06; Start 09/25/21 at 21:00 Baclofen (Lioresal) 10 mg BID PO Last administered on 10/16/21at 08:26; Start 09/25/21 at 21:00; Stop 10/16/21 at 13:21; Status DC Diazepam (Valium) 5 mg TID PO Last administered on 10/19/21 14:12; Start 09/25/21 at 14:00 Docusate Sodium (Colace) 100 mg PRN BID PRN PO HARD STOOLS Last administered on 10/15/21at 10:22; Start 09/25/21 at 12:30 Fluticasone Propionate (Flonase) 2 spray DAILY NS Last administered on 10/17/21at 12:58; Start 09/26/21 at 09:00 Hydroxyzine HCl (Atarax) 25 mg PRN Q6HRS PRN PO Itching (2ND Choice) Last administered on 10/19/21 06:38; Start 09/25/21 at 12:30 Lidocaine (Lidoderm) 1 patch QHS TP Last administered on 10/03/21 23:31; Start 09/25/21 at 20:00; Stop 10/05/21 at 01:01; Status DC Linagliptin (Tradjenta) 5 mg DAILY PO Last administered on 10/20/21 08:53; Start 09/25/21 at 13:00 Miconazole Nitrate (Monistat-Derm) 1 crispin TID TP Last administered on 10/04/21 20:08; Start 09/25/21 at 21:00; Stop 10/05/21 at 13:23; Status DC Midodrine (Proamatine) 2.5 mg PRN 1X PRN PO hypotension Last administered on 09/27/21 08:56; Start 09/25/21 at 12:30 Oxycodone HCl (Roxicodone) 10 mg PRN Q6HRS PRN PO MODERATE-SEVERE PAIN Last administered on 10/20/21 08:51; Start 09/25/21 at 12:30 Diclofenac Sodium (Voltaren) 1 crispin PRN TID PRN TP PAIN CONTROL; Start 09/25/21 at 13:15; Stop 09/25/21 at 18:37; Status DC Insulin Glargine (Lantus Syringe) 4 unit QHS SQ Last administered on 10/19/21 21:15; Start 09/25/21 at 21:00 Losartan Potassium (Cozaar) 25 mg DAILY08 PO Last administered on 10/20/21 08:57; Start 09/26/21 at 08:00 Polyethylene Glycol (miraLAX PACKET) 17 gm DAILY PO Last administered on 10/13/21 08:53; Start 09/25/21 at 14:00 Pregabalin (Lyrica) 100 mg BID PO Last administered on 10/20/21 08:52; Start 09/25/21 at 21:00 Acetaminophen (Tylenol) 650 mg PRN Q6HRS PRN PO MILD PAIN / TEMP > 100.3'F; Start 09/25/21 at 12:30; Status Cancel Al Hydroxide/Mg Hydroxide (Mylanta Plus Xs) 30 ml PRN Q3HRS PRN PO HEARTBURN / GAS; Start 09/25/21 at 12:30 Calcium Carbonate/ Glycine (Tums) 500 mg PRN Q3HRS PRN PO INDIGESTION; Start 09/25/21 at 12:30 Diphenhydramine HCl (Benadryl) 25 mg PRN Q6HRS PRN PO ITCHING (1ST CHOICE); Start 09/25/21 at 12:30 Naloxone HCl (Narcan) 0.1 mg PRN Q2MIN PRN IV SEE COMMENTS; Start 09/25/21 at 12:30 Sodium Chloride (Normal Saline Flush) 3 ml QSHIFT PRN IV AFTER MEDS AND BLOOD DRAWS; Start 09/25/21 at 12:30 Potassium Chloride/Sodium Chloride 1,000 ml @ 75 mls/hr [id number] IV Last administered on 09/26/21at 07:00; Start 09/25/21 at 12:30; Stop 09/26/21 at 17:33; Status DC Magnesium Hydroxide (Milk Of Magnesia) 2,400 mg PRN Q12HR PRN PO CONSTIPATION; Start 09/25/21 at 12:30 Cefazolin Sodium (Ancef) 1 gm Q8H IVP Last administered on 09/26/21at 04:14; Start 09/25/21 at 18:00; Stop 09/26/21 at 10:01; Status DC Fentanyl Citrate (Fentanyl 2ml Vial) 50 mcg PRN Q2HR PRN IVP MODERATE TO SEVERE PAIN Last administered on 10/05/21at 22:46; Start 09/25/21 at 12:30 Dextrose (Dextrose 50%-Water Syringe) 12.5 gm PRN Q15MIN PRN IV SEE COMMENTS; Start 09/25/21 at 12:30; Status Cancel Dextrose (Iv Dextrose 5%) 250 ml PRN Q15MIN PRN IV SEE COMMENTS; Start 09/25/21 at 12:30; Status Cancel Gelatin (Gelfoam Size 100) 1 each STK-MED ONCE .ROUTE ; Start 09/25/21 at 06:37; Stop 09/25/21 at 14:55; Status DC Bupivacaine HCl/ Epinephrine Bitart (Sensorcain-Epi 0.5% Kit) 30 ml STK-MED ONCE .ROUTE ; Start 09/25/21 at 06:37; Stop 09/25/21 at 14:55; Status DC Ketorolac Tromethamine (Toradol Im) 60 mg STK-MED ONCE .ROUTE ; Start 09/25/21 at 06:37; Stop 09/25/21 at 14:55; Status DC Thrombin 20,000 unit STK-MED ONCE TP ; Start 09/25/21 at 06:38; Stop 09/25/21 at 14:55; Status DC Propofol (Diprivan) 200 mg STK-MED ONCE IV ; Start 09/25/21 at 05:54; Stop 09/25/21 at 14:57; Status DC Lidocaine HCl (Lidocaine Pf 2% Vial) 5 ml STK-MED ONCE .ROUTE ; Start 09/25/21 at 05:54; Stop 09/25/21 at 14:57; Status DC Ondansetron HCl (Zofran) 4 mg STK-MED ONCE .ROUTE ; Start 09/25/21 at 05:54; Stop 09/25/21 at 14:57; Status DC Phenylephrine HCl (Ramone-Synephrine Inj) 10 mg STK-MED ONCE .ROUTE ; Start 09/25/21 at 05:54; Stop 09/25/21 at 14:57; Status DC Propofol 50 ml @ As Directed STK-MED ONCE IV ; Start 09/25/21 at 05:54; Stop 09/25/21 at 14:57; Status DC Dexamethasone Sodium Phosphate (Decadron) 4 mg STK-MED ONCE .ROUTE ; Start 09/25/21 at 05:54; Stop 09/25/21 at 14:57; Status DC Fentanyl Citrate (Fentanyl 2ml Vial) 100 mcg STK-MED ONCE .ROUTE ; Start 09/25/21 at 05:54; Stop 09/25/21 at 14:57; Status DC Succinylcholine Chloride (Anectine) 200 mg STK-MED ONCE .ROUTE ; Start 09/25/21 at 05:54; Stop 09/25/21 at 14:57; Status DC Remifentanil HCl (Ultiva) 1 mg STK-MED ONCE IV ; Start 09/25/21 at 05:54; Stop 09/25/21 at 14:57; Status DC Glycopyrrolate (Robinul) 1 mg STK-MED ONCE .ROUTE ; Start 09/25/21 at 07:11; Stop 09/25/21 at 15:01; Status DC Propofol 50 ml @ As Directed STK-MED ONCE IV ; Start 09/25/21 at 08:07; Stop 09/25/21 at 15:02; Status DC Ketamine HCl (Ketamine) 50 mg STK-MED ONCE .ROUTE ; Start 09/25/21 at 08:15; Stop 09/25/21 at 15:02; Status DC Hydromorphone HCl (Dilaudid) 2 mg STK-MED ONCE .ROUTE ; Start 09/25/21 at 10:44; Stop 09/25/21 at 15:03; Status DC Fentanyl Citrate (Fentanyl 2ml Vial) 100 mcg STK-MED ONCE .ROUTE ; Start 09/25/21 at 13:26; Stop 09/25/21 at 15:04; Status DC Morphine Sulfate (Morphine Sulfate) 2 mg STK-MED ONCE .ROUTE ; Start 09/25/21 at 14:04; Stop 09/25/21 at 15:05; Status DC Hydromorphone HCl (Dilaudid) 2 mg STK-MED ONCE .ROUTE ; Start 09/25/21 at 14:54; Stop 09/25/21 at 15:06; Status DC Menthol/Methyl Salicylate ([place] Greaseless Cream) 1 crispin PRN Q30MIN PRN TP MUSCLE PAIN Last administered on 10/02/21at 21:03; Start 09/25/21 at 18:45 Mupirocin (Bactroban) 1 crispin BID NS Last administered on 10/12/21at 21:09; Start 09/26/21 at 09:00; Stop 10/13/21 at 07:56; Status DC Dexamethasone Sodium Phosphate (Decadron) 10 mg 1X ONCE IVP Last administered on 09/26/21at 07:31; Start 09/26/21 at 07:30; Stop 09/26/21 at 07:31; Status DC Cefazolin Sodium 1 gm/Sodium Chloride 1,000 ml @ 1,000 mls/hr 1X ONCE IRR Last administered on 09/26/21at 11:52; Start 09/26/21 at 10:30; Stop 09/26/21 at 11:29; Status DC Cefazolin Sodium (Ancef) 1 gm STK-MED ONCE IVP ; Start 09/26/21 at 10:05; Stop 09/26/21 at 10:06; Status DC Lidocaine HCl (Lidocaine Pf 2% Vial) 5 ml STK-MED ONCE .ROUTE ; Start 09/26/21 at 10:18; Stop 09/26/21 at 10:18; Status DC Ondansetron HCl (Zofran) 4 mg STK-MED ONCE .ROUTE ; Start 09/26/21 at 10:18; Stop 09/26/21 at 10:18; Status DC Propofol (Diprivan) 200 mg STK-MED ONCE IV ; Start 09/26/21 at 10:18; Stop 09/26/21 at 10:19; Status DC Dexamethasone Sodium Phosphate (Decadron) 4 mg STK-MED ONCE .ROUTE ; Start 09/26/21 at 10:18; Stop 09/26/21 at 10:19; Status DC Sevoflurane (Ultane) 30 ml STK-MED ONCE IH ; Start 09/26/21 at 10:18; Stop 09/26/21 at 10:19; Status DC Fentanyl Citrate (Fentanyl 2ml Vial) 100 mcg STK-MED ONCE .ROUTE ; Start 09/26/21 at 10:19; Stop 09/26/21 at 10:19; Status DC Rocuronium [place] (Zemuron) 50 mg STK-MED ONCE .ROUTE ; Start 09/26/21 at 10:19; Stop 09/26/21 at 10:19; Status DC Insulin Human Lispro (HumaLOG VIAL for OP,RR ONLY) 0-10 units PRN Q1HR PRN SQ PER PROTOCOL Last administered on 09/26/21at 15:11; Start 09/26/21 at 10:30; Stop 09/26/21 at 18:00; Status DC Sugammadex Sodium (Bridion) 200 mg 1X ONCE IVP Last administered on 09/26/21at 10:30; Start 09/26/21 at 10:30; Stop 09/26/21 at 10:31; Status DC Gelatin (Gelfoam Size 100) 1 each STK-MED ONCE .ROUTE Last administered on 09/26/21at 11:52; Start 09/26/21 at 10:30; Stop 09/26/21 at 10:30; Status DC Bupivacaine HCl/ Epinephrine Bitart (Sensorcain-Epi 0.5% Kit) 30 ml STK-MED ONCE .ROUTE ; Start 09/26/21 at 10:30; Stop 09/26/21 at 10:30; Status DC Ketorolac Tromethamine (Toradol Im) 60 mg STK-MED ONCE .ROUTE ; Start 09/26/21 at 10:30; Stop 09/26/21 at 10:30; Status DC Thrombin 20,000 unit STK-MED ONCE TP Last administered on 09/26/21at 11:52; Start 09/26/21 at 10:30; Stop 09/26/21 at 10:31; Status DC Cefazolin Sodium/ Dextrose 50 ml @ As Directed STK-MED ONCE IV ; Start 09/26/21 at 10:32; Stop 09/26/21 at 10:32; Status DC Vancomycin HCl 1 gm/Sodium Chloride 250 ml @ 250 mls/hr PREOP PRN PRN IV PRIOR TO PROCEDURE; Start 09/26/21 at 10:45; Stop 09/26/21 at 14:00; Status DC Cefazolin Sodium/ Dextrose 50 ml @ 100 mls/hr 1X ONCE IV Last administered on 09/26/21at 11:00; Start 09/26/21 at 11:00; Stop 09/26/21 at 11:29; Status DC Dexamethasone Sodium Phosphate (Decadron) 4 mg STK-MED ONCE .ROUTE ; Start 09/26/21 at 11:04; Stop 09/26/21 at 11:04; Status DC Glycopyrrolate (Robinul) 1 mg STK-MED ONCE .ROUTE ; Start 09/26/21 at 11:04; Stop 09/26/21 at 11:04; Status DC Hydromorphone HCl (Dilaudid) 2 mg STK-MED ONCE .ROUTE ; Start 09/26/21 at 11:56; Stop 09/26/21 at 11:56; Status DC Fentanyl Citrate (Fentanyl 2ml Vial) 25 mcg PRN Q5MIN PRN IVP MILD PAIN 1-3; Start 09/26/21 at 14:30; Stop 09/26/21 at 18:15; Status DC Fentanyl Citrate (Fentanyl 2ml Vial) 50 mcg PRN Q5MIN PRN IVP MODERATE PAIN 4- 6; Start 09/26/21 at 14:30; Stop 09/26/21 at 18:15; Status DC Morphine Sulfate (Morphine Sulfate) 1 mg PRN Q10MIN PRN IVP SEVERE PAIN 7-10; Start 09/26/21 at 14:30; Stop 09/26/21 at 18:15; Status DC Ringer's Solution 1,000 ml @ 30 mls/hr Q24H IV Last administered on 09/26/21at 15:18; Start 09/26/21 at 14:30; Stop 09/26/21 at 21:00; Status DC Hydromorphone HCl (Dilaudid) 0.5 mg PRN Q10MIN PRN IVP SEVERE PAIN 7-10, 2nd CHOICE; Start 09/26/21 at 14:30; Stop 09/26/21 at 18:15; Status DC Prochlorperazine Edisylate (Compazine) 5 mg PACU PRN PRN IVP NAUSEA, MRX1; Start 09/26/21 at 14:30; Stop 09/26/21 at 21:00; Status DC Fentanyl Citrate (Fentanyl 2ml Vial) 100 mcg STK-MED ONCE .ROUTE ; Start 09/26/21 at 14:23; Stop 09/26/21 at 14:25; Status DC Fentanyl Citrate (Fentanyl 2ml Vial) 25 mcg PRN Q5MIN PRN IVP MILD PAIN 1-3; Start 09/26/21 at 14:30; Stop 09/27/21 at 14:29; Status UNV Fentanyl Citrate (Fentanyl 2ml Vial) 50 mcg PRN Q5MIN PRN IVP MODERATE PAIN 4- 6; Start 09/26/21 at 14:30; Stop 09/27/21 at 14:29; Status UNV Morphine Sulfate (Morphine Sulfate) 1 mg PRN Q10MIN PRN IVP SEVERE PAIN 7-10; Start 09/26/21 at 14:30; Stop 09/27/21 at 14:29; Status UNV Ringer's Solution 1,000 ml @ 30 mls/hr Q24H IV ; Start 09/26/21 at 14:30; Stop 09/27/21 at 02:29; Status UNV Hydromorphone HCl (Dilaudid) 0.5 mg PRN Q10MIN PRN IVP SEVERE PAIN 7-10, 2nd CHOICE; Start 09/26/21 at 14:30; Stop 09/27/21 at 14:29; Status UNV Prochlorperazine Edisylate (Compazine) 5 mg PACU PRN PRN IVP NAUSEA, MRX1; Start 09/26/21 at 14:30; Stop 09/27/21 at 14:29; Status UNV Dexamethasone Sodium Phosphate (Decadron) 4 mg Q6HRS IVP Last administered on 09/28/21at 05:06; Start 09/26/21 at 18:00; Stop 09/28/21 at 06:00; Status DC Sodium Chloride 1,000 ml @ 100 mls/hr Q10H IV Last administered on 10/05/21at 06:41; Start 09/26/21 at 17:30; Stop 10/05/21 at 13:48; Status DC Cefazolin Sodium (Ancef) 1 gm Q8HRS IVP ; Start 09/27/21 at 06:00; Stop 09/27/21 at 05:47; Status DC Vancomycin HCl 1 gm/Sodium Chloride 250 ml @ 166.667 mls/hr 1X ONCE IV Last administered on 09/27/21at 06:27; Start 09/27/21 at 06:00; Stop 09/27/21 at 07:29; Status DC Gadoterate Meglumine (Clariscan) 19 ml 1X ONCE IVP Last administered on 09/29/21at 10:32; Start 09/29/21 at 08:15; Stop 09/29/21 at 08:17; Status DC Bisacodyl (Dulcolax Supp) 10 mg PRN DAILY PRN DE CONSTIPATION; Start 09/29/21 at 14:15 Lactulose (Lactulose) 20 gm PRN DAILY PRN PO CONSTIPATION, 2nd choice Last administered on 10/01/21at 08:35; Start 09/29/21 at 14:30 Ascorbic Acid (Vitamin C) 500 mg DAILY PO Last administered on 10/20/21at 08:52; Start 10/02/21 at 10:00 Levofloxacin/ Dextrose 100 ml @ 100 mls/hr Q24H IV Last administered on 10/02/21at 12:15; Start 10/02/21 at 12:00; Stop 10/03/21 at 08:57; Status DC Levofloxacin/ Dextrose 50 ml @ 50 mls/hr Q24H IV Last administered on 10/06/21at 15:19; Start 10/03/21 at 12:00; Stop 10/06/21 at 23:00; Status DC Lactobacillus Rhamnosus (Culturelle) 1 cap BID PO Last administered on 10/20/21at 08:52; Start 10/03/21 at 21:00 Lidocaine (Lidoderm) 1 patch QHS TP Last administered on 10/19/21at 21:07; Start 10/04/21 at 22:00 Levofloxacin (Levaquin) 250 mg DAILY06 PO Last administered on 10/11/21at 06:13; Start 10/07/21 at 06:00; Stop 10/11/21 at 12:00; Status DC Insulin Human Lispro (HumaLOG) 0-5 UNITS TIDWMEALS SQ Last administered on 10/18/21at 12:16; Start 10/12/21 at 08:00; Stop 10/19/21 at 15:15; Status DC Dextrose (Dextrose 50%-Water Syringe) 12.5 gm PRN Q15MIN PRN IV SEE COMMENTS; Start 10/11/21 at 19:00 Dextrose (Iv Dextrose 5%) 250 ml PRN Q15MIN PRN IV SEE COMMENTS; Start 10/11/21 at 19:00 Potassium Chloride (Klor-Con) 40 meq 1X ONCE PO Last administered on 10/15/21at 10:21; Start 10/15/21 at 10:30; Stop 10/15/21 at 10:31; Status DC Magnesium Sulfate 50 ml @ 25 mls/hr 1X ONCE IV Last administered on 10/15/21at 10:20; Start 10/15/21 at 10:30; Stop 10/15/21 at 12:29; Status DC Baclofen (Lioresal) 10 mg Q8HRS PO Last administered on 10/17/21at 06:02; Start 10/16/21 at 22:00; Stop 10/17/21 at 11:58; Status DC Baclofen (Lioresal) 10 mg Q6HRS PO Last administered on 10/20/21at 06:12; Start 10/17/21 at 12:00 Triamcinolone Acetonide (Kenalog-40) 40 mg 1X ONCE IM Last administered on 10/17/21at 12:15; Start 10/17/21 at 12:15; Stop 10/17/21 at 12:16; Status DC Bupivacaine HCl (Sensorcaine-Mpf 0.25%) 10 ml 1X ONCE IJ Last administered on 10/17/21at 12:00; Start 10/17/21 at 12:00; Stop 10/17/21 at 12:01; Status DC Magnesium Sulfate 100 ml @ 25 mls/hr 1X ONCE IV Last administered on 10/18/21at 14:11; Start 10/18/21 at 14:30; Stop 10/18/21 at 18:29; Status DC Vitamin B Complex (Folbic Tablet) 1 tab DAILY PO Last administered on 10/20/21at 08:53; Start 10/18/21 at 14:30 Non-Formulary Medication (L-Carnitine 500 Mg Capsule) 1 ea DAILY PO Last ad ministered on 10/20/21at 08:54; Start 10/19/21 at 13:00 Insulin Human Lispro (HumaLOG) 0-5 UNITS PRN BFRMEAL PRN SQ SEE ADMIN INST RUCTIONS; Start 10/19/21 at 15:15 Active Scripts Active Dok (Docusate Sodium) 100 Mg Capsule 100 Mg PO PRN BID PRN 30 Days Tylenol (Acetaminophen) 325 Mg Tablet 650 Mg PO PRN Q4HRS PRN 30 Days Valium (Diazepam) 5 Mg Tablet 5 Mg PO TID Atorvastatin Calcium 10 Mg Tablet 10 Mg PO QHS Reported Midodrine Hcl 2.5 Mg Tablet 2.5 Mg PO PRN 1X PRN Aspirin 81 Mg Tab.chew 81 Mg PO DAILY Baclofen 10 Mg Tablet 10 Mg PO BID Lyrica (Pregabalin) 100 Mg Capsule 100 Mg PO BID 30 Days Polyethylene Glycol 3350 2,500 Gm Powder 17 Gm PO DAILY 30 Days Micatin (Miconazole Nitrate) 14 Gm Cream..g. 1 [place] TP TID Tradjenta (Linagliptin) 5 Mg Tablet 5 Mg PO DAILY Lidocaine PATCH (Lidocaine) 1 Each Adh..patch 1 Each TP DAILY REMOVE AFTER 12 HOURS Levemir (Insulin Detemir) 100 Unit/1 Ml Vial 4 Unit SQ HS Hydroxyzine Hcl 25 Mg Tablet 25 Mg PO PRN Q6HRS PRN Fluticasone Propionate Nasal [place] (Fluticasone Propionate) 16 Gm [place].susp 2 [place] NS DAILY Diclofenac Sodium 100 Gm Gel..gram. 100 Gm TP PRN TID PRN Losartan Potassium 100 Mg Tablet 25 Tab PO DAILY08 Vitals/I & O Vital Sign - Last 24 Hours 10/19/21 10/19/21 10/19/21 10/19/21 12:00 14:12 14:42 16:00 Temp 97.4 97.4 Pulse 82 Resp 16 B/P (MAP) 126/73 (90) Pulse Ox 97 97 97 97 O2 Delivery Room Air Room Air Room Air Room Air 10/19/21 10/19/21 10/19/21 10/19/21 20:00 21:06 21:40 23:00 Temp 98.2 98.2 Pulse 75 Resp 20 20 16 B/P (MAP) 108/49 (68) Pulse Ox 98 O2 Delivery Room Air Room Air Room Air 10/20/21 10/20/21 10/20/21 10/20/21 03:00 07:00 08:03 08:51 Temp 98.4 97.9 98.4 97.9 Pulse 59 61 Resp 16 17 B/P (MAP) 103/53 (70) 104/55 (71) Pulse Ox 98 97 O2 Delivery Room Air Room Air Room Air Room Air 10/20/21 08:57 Pulse 77 B/P (MAP) 128/76 Intake and Output 10/19/21 10/19/21 10/20/21 15:00 23:00 07:00 Output Total 750 ml 600 ml Balance -750 ml -600 ml Justifications for Admission Other Justification uncontrolled diabetes TERRY JURADO MD Oct 20, 2021 10:07
[2021-10-20 11:17] VITALS: BP 125/66
--- NOTE | 2021-10-20 13:35 | PDOC ---
[employer] PROGRESS NOTE Date of Service DOS: DATE: 10/20/21 TIME: 13:33 Chief Complaint Chief Complaint Cervical spinal cord injury - Concern for C5 cord edema, cord compression, a right lateral C5 fracture, and concern for numerous ligamentous injuries. S/p decompression ACDF 07/26/2021 Weakness of distal arms and legs - bilateral hand towel folder strength weakness, and lower extremity weakness there is high concern for occult cervical spine compression. S/p decompression 07/26/2021 and repeat surgeries 09/25 and 09/26 Diabetes - sliding scale plus basal HTN - prn hydralazine HLD - statin when taking PO Cervical laminectomy as per above, diabetes, hypertension, hyperlipidemia, arthritis, GERD, left knee arthroplasty and TIA S/p; IVC filter FEN - ADAT PPX - SCDs FULL CODE Dispo - Inpatient History of Present Illness History of Present Illness 3 422 No acute events overnight. Patient seen examined bedside. Injection received in right shoulder with Dr. JURADO. Patient tolerated procedure well. Spasms have improved. Pending placement to neuro rehab as a possibility. Patient's chart, labs, images were reviewed and discussed with RN 10/19/2021 No acute events overnight. Patient seen examined bedside. Spasms have improved and pain overall has improved after adjustment with baclofen. Continuing with rehab modalities. Patient's chart, labs, images were reviewed and discussed with RN 10/18: Right shoulder radiograph with some degenerative changes. Had some spasming this morning, but feeling better currently. Mag 1.6. Discussed addition of B6, 9, 12 and needs for complex neuro rehab. 10/17/2021 No acute events overnight. Patient seen examined bedside. Still complaining of muscle spasms. Baclofen has been increased. He is already on Valium and Lyrica. Considering neurology consult for evaluation. Pending right shoulder x-ray. Patient's chart, labs, images were reviewed and discussed with RN 10/16: Seen in ICU notes spasming started again last night this happened about 6 times even when he tries to reach up and scratch his eyelid. Having some more pain in his right biceps and left Achilles area. 10/15: Seen bedside in ICU getting bed bath. Says his spasming is improved today having a little bit of shortness of breath but no cough. No chest pain. 10/14: Seen bedside in ICU. Still with spasming upon awakening in his hands and feet still with some weakness in his left foot. Poor appetite. 10/13: Patient seen and examined. Discussed with neurosurgery nurse practitioner Roberta 10/12: Patient seen and examined 10/11: Patient seen and examined. His discharge was held again as he was not accepted at [facility] 10/09: His sister is here as well discussed with her. Plan is to get the patient to [facility] if they accept him 10/08: Patient seen and examined. He is moving his toes more each day 10/07: Patient seen and examined in the ICU (he is actually in overfull patient). He is working with his nurse to try to use his nurse button and remote control. Started to move his toes a little bit 10/06/2021 Patient seen and examined in the ICU I discussed the case with his sister again I also discussed the case with case management [facility] rehab may consider taking him after all now that he is improved over the past 3 days 10/05/2021 Patient seen and examined in the ICU His nurses are starting to get ready to clean him up His sister is present Discussed with RN Discussed with case management we are still awaiting [facility] transfer if it can be arranged 10/04/2021 Patient seen and examined again in the ICU He remains very weak cannot move his legs was able to move his hands His sister is present I called case management they are checking into possibly if he could go to [facility] Chart reviewed 10/03/2021 Patient seen and examined in the ICU Chart reviewed Discussed with RN Called case management We are hoping to get the patient transferred to [facility] rehab if possible (they are evaluating his admission criteria to rehab) 10/02/2021 Patient seen and examined in the ICU He is still unable to move his legs He is able to move his hands and arms slightly but is very weak at bedside Chart reviewed Discussed with RN I called case management to see if maybe he could go to [facility] rehab sometime soon 10/01 Patient evaluated examined at bedside. Continues to improve. Continue rehab. Plan discussed with bedside RN. 09/30 Patient evaluated examined at bedside. Clinically about the same from yesterday. Continue rehab modalities. Labs stable. Plan discussed with bedside RN. 09/29 Patient evaluated at bedside. Underwent MRI this morning. Symptoms very similar to yesterday but he feels like he is regaining some function. Pain controlled. PT OT. Hemoglovin stable. 09/28 Evaluate examined at bedside. Resting in bed had no complaints to me. Said pain is quite improved. Did okay with transfusion yesterday. Continue current treatments. PT/OT. Discussed with bedside RNStar Diane 09/27 Patient evaluated examined at bedside. Was resting in bed easily awoken able to answer some questions. Some movement in his upper extremities but very limited in lower. Transfuse 1 unit today. Plan discussed with RN. Mr Terrell is a 60-year-old male w/ PMHx prediabetes, HLD, HTN and recent fall in July 2021 with cervical myelopathy and s/p cervical decompression with ACDF C5-6 07/26/2021 On 09/25/21 underwent cervical laminectomy, C3, C4, C5, C6, partial C7 with lateral mass fusion C3 through C7, Posterior nstrumentation C3-C7 on the left and posterior instrumentation C-C6 on the right. On 09/26/21 returned to OR for cervical hematoma evacuation. Vitals/I&O Vitals/I&O: Vital Signs Date Time Temp Pulse Resp B/P (MAP) Pulse Ox O2 Delivery O2 Flow Rate FiO2 10/20/21 11:17 98.1 72 20 125/66 (85) 96 Room Air 98.1 I & O 10/19/21 10/19/21 10/20/21 15:00 23:00 07:00 Output Total 750 ml 600 ml Balance -750 ml -600 ml Physical Exam General: Alert, Oriented X3, No acute distress Heart: Regular rate Lungs: Clear Abdomen: Normal bowel sounds, Soft, No tenderness Extremities: No edema, Normal pulses Skin: Other (incision healing well) Labs Labs: Laboratory Tests Test 10/20/21 06:21 Glucose (Fingerstick) 121 mg/dL (70-99) Comment Review of Relevant I have reviewed the following items michelle (where applicable) has been applied. Justifications for Admission Other Justification uncontrolled diabetes SHANICE TAYLOR MD Oct 20, 2021 13:35
[2021-10-20 15:02] VITALS: BP 130/65
--- NOTE | 2021-10-20 15:57 | PDOC ---
PROGRESS NOTES Date of Service DATE: 10/20/21 TIME: 15:53 Subjective Subjective seen at 1330 POD #24 S/P Evacuation of epidural hematoma, s/p cervical laminectomy and fusion 09/25/21 pain improved, spasms improved Did receive right shoulder injection today Objective Objective Vital Signs Date Time Temp Pulse Resp B/P (MAP) Pulse Ox O2 Delivery O2 Flow Rate FiO2 10/20/21 15:02 98.7 85 20 130/65 (86) 97 Room Air 98.7 10/17/21 20:00 2.0 Intake and Output 10/20/21 06:59 Output Total 1350 ml Balance -1350 ml Output Urine Total 1350 ml # Bowel Movements 1 Physical Exam MUSCULOSKELETAL: Full range of motion without pain, Other Neuro: Normal speech, Other (3/5 distal arms, 4/5 left shoulder, 5/5 right shoulder, trace hip adduction bilaterally and trace right hip extension) Skin: No rashes, Other (incision healing well) Plan Plan of Care continue current treatments PT/ OT SCDs awaiting placement D/W sister per phone Comment Review of Relevant I have reviewed the following items michelle (where applicable) has been applied. Labs Laboratory Tests Test 10/18/21 16:41 10/18/21 19:40 10/19/21 08:43 10/19/21 12:23 Glucose (Fingerstick) 134 mg/dL (70-99) 150 mg/dL (70-99) 130 mg/dL (70-99) 146 mg/dL (70-99) Test 10/20/21 06:21 Glucose (Fingerstick) 121 mg/dL (70-99) Laboratory Tests Test 10/20/21 06:21 Glucose (Fingerstick) 121 mg/dL (70-99) Microbiology 10/01/21 Urine Culture - Final, Complete Escherichia Coli Escherichia Coli#2 Medications Current Medications Fentanyl Citrate (Fentanyl 2ml Vial) 25 mcg PRN Q5MIN PRN IVP MILD PAIN 1-3; Start 09/25/21 at 06:00; Stop 09/25/21 at 20:00; Status DC Fentanyl Citrate (Fentanyl 2ml Vial) 50 mcg PRN Q5MIN PRN IVP MODERATE PAIN 4-6 Last administered on 09/25/21at 13:48; Start 09/25/21 at 06:00; Stop 09/25/21 at 20:00; Status DC Morphine Sulfate (Morphine Sulfate) 1 mg PRN Q10MIN PRN IVP SEVERE PAIN 7-10 Last administered on 09/25/21at 14:21; Start 09/25/21 at 06:00; Stop 09/25/21 at 20:00; Status DC Ringer's Solution 1,000 ml @ 30 mls/hr Q24H IV Last administered on 09/25/21at 12:54; Start 09/25/21 at 06:00; Stop 09/25/21 at 17:59; Status DC Hydromorphone HCl (Dilaudid) 0.5 mg PRN Q10MIN PRN IVP SEVERE PAIN 7-10, 2nd CHOICE Last administered on 09/25/21at 16:53; Start 09/25/21 at 06:00; Stop 09/25/21 at 20:00; Status DC Prochlorperazine Edisylate (Compazine) 5 mg PACU PRN PRN IVP NAUSEA, MRX1; Start 09/25/21 at 06:00; Stop 09/25/21 at 20:00; Status DC Cefazolin Sodium 1 gm/Sodium Chloride 1,000 ml @ 1,000 mls/hr 1X ONCE IRR Last administered on 09/25/21at 10:14; Start 09/25/21 at 06:00; Stop 09/25/21 at 06:59; Status DC Cefazolin Sodium/ Dextrose 50 ml @ 100 mls/hr 1X PREOP PRN IV PRIOR TO PROCEDURE Last administered on 09/25/21at 09:30; Start 09/25/21 at 06:00; Stop 09/25/21 at 13:39; Status DC Insulin Human Lispro (HumaLOG VIAL for OP,RR ONLY) 0-10 units PRN Q1HR PRN SQ PER PROTOCOL Last administered on 09/25/21at 17:01; Start 09/25/21 at 07:00; Stop 09/25/21 at 18:00; Status DC Bupivacaine HCl/ Epinephrine Bitart (Sensorcain-Epi 0.5% Kit) 30 ml STK-MED ONCE INJ Last administered on 09/25/21at 10:14; Start 09/25/21 at 10:14; Stop 09/25/21 at 10:30; Status DC Ketorolac Tromethamine (Toradol Im) 60 mg STK-MED ONCE INJ Last administered on 09/25/21 10:14; Start 09/25/21 at 10:14; Stop 09/25/21 at 10:30; Status DC Thrombin 20,000 unit STK-MED ONCE TP Last administered on 09/25/21 10:14; Start 09/25/21 at 10:14; Stop 09/25/21 at 10:30; Status DC Gelatin (Gelfoam Size 100) 1 each STK-MED ONCE TP Last administered on 09/25/21 10:14; Start 09/25/21 at 10:14; Stop 09/25/21 at 10:30; Status DC Acetaminophen (Tylenol) 650 mg PRN Q4HRS PRN PO TEMP OVER 100.4F OR MILD PAIN Last administered on 10/20/21 08:51; Start 09/25/21 at 12:30 Aspirin (Aspirin Chewable) 81 mg DAILY PO Last administered on 09/26/21 08:30; Start 09/26/21 at 09:00; Stop 09/28/21 at 17:19; Status DC Atorvastatin Calcium (Lipitor) 10 mg QHS PO Last administered on 10/19/21 21:06; Start 09/25/21 at 21:00 Baclofen (Lioresal) 10 mg BID PO Last administered on 10/16/21 08:26; Start 09/25/21 at 21:00; Stop 10/16/21 at 13:21; Status DC Diazepam (Valium) 5 mg TID PO Last administered on 10/20/21 14:46; Start 09/25/21 at 14:00 Docusate Sodium (Colace) 100 mg PRN BID PRN PO HARD STOOLS Last administered on 10/15/21 10:22; Start 09/25/21 at 12:30 Fluticasone Propionate (Flonase) 2 spray DAILY NS Last administered on 10/17/21 12:58; Start 09/26/21 at 09:00 Hydroxyzine HCl (Atarax) 25 mg PRN Q6HRS PRN PO Itching (2ND Choice) Last administered on 10/19/21 06:38; Start 09/25/21 at 12:30 Lidocaine (Lidoderm) 1 patch QHS TP Last administered on 2/15/22at 23:31; Start 09/25/21 at 20:00; Stop 10/05/21 at 01:01; Status DC Linagliptin (Tradjenta) 5 mg DAILY PO Last administered on 10/20/21 08:53; Start 09/25/21 at 13:00 Miconazole Nitrate (Monistat-Derm) 1 rcispin TID TP Last administered on 10/04/21 20:08; Start 09/25/21 at 21:00; Stop 10/05/21 at 13:23; Status DC Midodrine (Proamatine) 2.5 mg PRN 1X PRN PO hypotension Last administered on 09/27/21 08:56; Start 09/25/21 at 12:30 Oxycodone HCl (Roxicodone) 10 mg PRN Q6HRS PRN PO MODERATE-SEVERE PAIN Last administered on 10/20/21 14:45; Start 09/25/21 at 12:30 Diclofenac Sodium (Voltaren) 1 crispin PRN TID PRN TP PAIN CONTROL; Start 09/25/21 at 13:15; Stop 09/25/21 at 18:37; Status DC Insulin Glargine (Lantus Syringe) 4 unit QHS SQ Last administered on 10/19/21 21:15; Start 09/25/21 at 21:00 Losartan Potassium (Cozaar) 25 mg DAILY08 PO Last administered on 10/20/21 08:57; Start 09/26/21 at 08:00 Polyethylene Glycol (miraLAX PACKET) 17 gm DAILY PO Last administered on 10/13/21 08:53; Start 09/25/21 at 14:00 Pregabalin (Lyrica) 100 mg BID PO Last administered on 10/20/21 08:52; Start 09/25/21 at 21:00 Acetaminophen (Tylenol) 650 mg PRN Q6HRS PRN PO MILD PAIN / TEMP > 100.3'F; Start 09/25/21 at 12:30; Status Cancel Al Hydroxide/Mg Hydroxide (Mylanta Plus Xs) 30 ml PRN Q3HRS PRN PO HEARTBURN / GAS; Start 09/25/21 at 12:30 Calcium Carbonate/ Glycine (Tums) 500 mg PRN Q3HRS PRN PO INDIGESTION; Start 09/25/21 at 12:30 Diphenhydramine HCl (Benadryl) 25 mg PRN Q6HRS PRN PO ITCHING (1ST CHOICE); Start 09/25/21 at 12:30 Naloxone HCl (Narcan) 0.1 mg PRN Q2MIN PRN IV SEE COMMENTS; Start 09/25/21 at 12:30 Sodium Chloride (Normal Saline Flush) 3 ml QSHIFT PRN IV AFTER MEDS AND BLOOD DRAWS; Start 09/25/21 at 12:30 Potassium Chloride/Sodium Chloride 1,000 ml @ 75 mls/hr [id number] IV Last administered on 09/26/21at 07:00; Start 09/25/21 at 12:30; Stop 09/26/21 at 17:33; Status DC Magnesium Hydroxide (Milk Of Magnesia) 2,400 mg PRN Q12HR PRN PO CONSTIPATION; Start 09/25/21 at 12:30 Cefazolin Sodium (Ancef) 1 gm Q8H IVP Last administered on 09/26/21at 04:14; Start 09/25/21 at 18:00; Stop 09/26/21 at 10:01; Status DC Fentanyl Citrate (Fentanyl 2ml Vial) 50 mcg PRN Q2HR PRN IVP MODERATE TO SEVERE PAIN Last administered on 10/05/21at 22:46; Start 09/25/21 at 12:30 Dextrose (Dextrose 50%-Water Syringe) 12.5 gm PRN Q15MIN PRN IV SEE COMMENTS; Start 09/25/21 at 12:30; Status Cancel Dextrose (Iv Dextrose 5%) 250 ml PRN Q15MIN PRN IV SEE COMMENTS; Start 09/25/21 at 12:30; Status Cancel Gelatin (Gelfoam Size 100) 1 each STK-MED ONCE .ROUTE ; Start 09/25/21 at 06:37; Stop 09/25/21 at 14:55; Status DC Bupivacaine HCl/ Epinephrine Bitart (Sensorcain-Epi 0.5% Kit) 30 ml STK-MED ONCE .ROUTE ; Start 09/25/21 at 06:37; Stop 09/25/21 at 14:55; Status DC Ketorolac Tromethamine (Toradol Im) 60 mg STK-MED ONCE .ROUTE ; Start 09/25/21 at 06:37; Stop 09/25/21 at 14:55; Status DC Thrombin 20,000 unit STK-MED ONCE TP ; Start 09/25/21 at 06:38; Stop 09/25/21 at 14:55; Status DC Propofol (Diprivan) 200 mg STK-MED ONCE IV ; Start 09/25/21 at 05:54; Stop 09/25/21 at 14:57; Status DC Lidocaine HCl (Lidocaine Pf 2% Vial) 5 ml STK-MED ONCE .ROUTE ; Start 09/25/21 at 05:54; Stop 09/25/21 at 14:57; Status DC Ondansetron HCl (Zofran) 4 mg STK-MED ONCE .ROUTE ; Start 09/25/21 at 05:54; Stop 09/25/21 at 14:57; Status DC Phenylephrine HCl (Ramone-Synephrine Inj) 10 mg STK-MED ONCE .ROUTE ; Start 09/25/21 at 05:54; Stop 09/25/21 at 14:57; Status DC Propofol 50 ml @ As Directed STK-MED ONCE IV ; Start 09/25/21 at 05:54; Stop 09/25/21 at 14:57; Status DC Dexamethasone Sodium Phosphate (Decadron) 4 mg STK-MED ONCE .ROUTE ; Start 09/25/21 at 05:54; Stop 09/25/21 at 14:57; Status DC Fentanyl Citrate (Fentanyl 2ml Vial) 100 mcg STK-MED ONCE .ROUTE ; Start 09/25/21 at 05:54; Stop 09/25/21 at 14:57; Status DC Succinylcholine Chloride (Anectine) 200 mg STK-MED ONCE .ROUTE ; Start 09/25/21 at 05:54; Stop 09/25/21 at 14:57; Status DC Remifentanil HCl (Ultiva) 1 mg STK-MED ONCE IV ; Start 09/25/21 at 05:54; Stop 09/25/21 at 14:57; Status DC Glycopyrrolate (Robinul) 1 mg STK-MED ONCE .ROUTE ; Start 09/25/21 at 07:11; Stop 09/25/21 at 15:01; Status DC Propofol 50 ml @ As Directed STK-MED ONCE IV ; Start 09/25/21 at 08:07; Stop 09/25/21 at 15:02; Status DC Ketamine HCl (Ketamine) 50 mg STK-MED ONCE .ROUTE ; Start 09/25/21 at 08:15; Stop 09/25/21 at 15:02; Status DC Hydromorphone HCl (Dilaudid) 2 mg STK-MED ONCE .ROUTE ; Start 09/25/21 at 10:44; Stop 09/25/21 at 15:03; Status DC Fentanyl Citrate (Fentanyl 2ml Vial) 100 mcg STK-MED ONCE .ROUTE ; Start 09/25/21 at 13:26; Stop 09/25/21 at 15:04; Status DC Morphine Sulfate (Morphine Sulfate) 2 mg STK-MED ONCE .ROUTE ; Start 09/25/21 at 14:04; Stop 09/25/21 at 15:05; Status DC Hydromorphone HCl (Dilaudid) 2 mg STK-MED ONCE .ROUTE ; Start 09/25/21 at 14:54; Stop 09/25/21 at 15:06; Status DC Menthol/Methyl Salicylate (Bengay Greaseless Cream) 1 crispin PRN Q30MIN PRN TP MUSCLE PAIN Last administered on 10/02/21at 21:03; Start 09/25/21 at 18:45 Mupirocin (Bactroban) 1 crispin BID NS Last administered on 10/12/21at 21:09; Start 09/26/21 at 09:00; Stop 10/13/21 at 07:56; Status DC Dexamethasone Sodium Phosphate (Decadron) 10 mg 1X ONCE IVP Last administered on 09/26/21at 07:31; Start 09/26/21 at 07:30; Stop 09/26/21 at 07:31; Status DC Cefazolin Sodium 1 gm/Sodium Chloride 1,000 ml @ 1,000 mls/hr 1X ONCE IRR Last administered on 09/26/21at 11:52; Start 09/26/21 at 10:30; Stop 09/26/21 at 11:29; Status DC Cefazolin Sodium (Ancef) 1 gm STK-MED ONCE IVP ; Start 09/26/21 at 10:05; Stop 09/26/21 at 10:06; Status DC Lidocaine HCl (Lidocaine Pf 2% Vial) 5 ml STK-MED ONCE .ROUTE ; Start 09/26/21 at 10:18; Stop 09/26/21 at 10:18; Status DC Ondansetron HCl (Zofran) 4 mg STK-MED ONCE .ROUTE ; Start 09/26/21 at 10:18; Stop 09/26/21 at 10:18; Status DC Propofol (Diprivan) 200 mg STK-MED ONCE IV ; Start 09/26/21 at 10:18; Stop 09/26/21 at 10:19; Status DC Dexamethasone Sodium Phosphate (Decadron) 4 mg STK-MED ONCE .ROUTE ; Start 09/26/21 at 10:18; Stop 09/26/21 at 10:19; Status DC Sevoflurane (Ultane) 30 ml STK-MED ONCE IH ; Start 09/26/21 at 10:18; Stop 09/26/21 at 10:19; Status DC Fentanyl Citrate (Fentanyl 2ml Vial) 100 mcg STK-MED ONCE .ROUTE ; Start 09/26/21 at 10:19; Stop 09/26/21 at 10:19; Status DC Rocuronium [place] (Zemuron) 50 mg STK-MED ONCE .ROUTE ; Start 09/26/21 at 10:19; Stop 09/26/21 at 10:19; Status DC Insulin Human Lispro (HumaLOG VIAL for OP,RR ONLY) 0-10 units PRN Q1HR PRN SQ PER PROTOCOL Last administered on 09/26/21at 15:11; Start 09/26/21 at 10:30; Stop 09/26/21 at 18:00; Status DC Sugammadex Sodium (Bridion) 200 mg 1X ONCE IVP Last administered on 09/26/21at 10:30; Start 09/26/21 at 10:30; Stop 09/26/21 at 10:31; Status DC Gelatin (Gelfoam Size 100) 1 each STK-MED ONCE .ROUTE Last administered on 09/26/21at 11:52; Start 09/26/21 at 10:30; Stop 09/26/21 at 10:30; Status DC Bupivacaine HCl/ Epinephrine Bitart (Sensorcain-Epi 0.5% Kit) 30 ml STK-MED ONCE .ROUTE ; Start 09/26/21 at 10:30; Stop 09/26/21 at 10:30; Status DC Ketorolac Tromethamine (Toradol Im) 60 mg STK-MED ONCE .ROUTE ; Start 09/26/21 at 10:30; Stop 09/26/21 at 10:30; Status DC Thrombin 20,000 unit STK-MED ONCE TP Last administered on 09/26/21at 11:52; Start 09/26/21 at 10:30; Stop 09/26/21 at 10:31; Status DC Cefazolin Sodium/ Dextrose 50 ml @ As Directed STK-MED ONCE IV ; Start 09/26/21 at 10:32; Stop 09/26/21 at 10:32; Status DC Vancomycin HCl 1 gm/Sodium Chloride 250 ml @ 250 mls/hr PREOP PRN PRN IV PRIOR TO PROCEDURE; Start 09/26/21 at 10:45; Stop 09/26/21 at 14:00; Status DC Cefazolin Sodium/ Dextrose 50 ml @ 100 mls/hr 1X ONCE IV Last administered on 09/26/21at 11:00; Start 09/26/21 at 11:00; Stop 09/26/21 at 11:29; Status DC Dexamethasone Sodium Phosphate (Decadron) 4 mg STK-MED ONCE .ROUTE ; Start 09/26/21 at 11:04; Stop 09/26/21 at 11:04; Status DC Glycopyrrolate (Robinul) 1 mg STK-MED ONCE .ROUTE ; Start 09/26/21 at 11:04; Stop 09/26/21 at 11:04; Status DC Hydromorphone HCl (Dilaudid) 2 mg STK-MED ONCE .ROUTE ; Start 09/26/21 at 11:56; Stop 09/26/21 at 11:56; Status DC Fentanyl Citrate (Fentanyl 2ml Vial) 25 mcg PRN Q5MIN PRN IVP MILD PAIN 1-3; Start 09/26/21 at 14:30; Stop 09/26/21 at 18:15; Status DC Fentanyl Citrate (Fentanyl 2ml Vial) 50 mcg PRN Q5MIN PRN IVP MODERATE PAIN 4- 6; Start 09/26/21 at 14:30; Stop 09/26/21 at 18:15; Status DC Morphine Sulfate (Morphine Sulfate) 1 mg PRN Q10MIN PRN IVP SEVERE PAIN 7-10; Start 09/26/21 at 14:30; Stop 09/26/21 at 18:15; Status DC Ringer's Solution 1,000 ml @ 30 mls/hr Q24H IV Last administered on 09/26/21at 15:18; Start 09/26/21 at 14:30; Stop 09/26/21 at 21:00; Status DC Hydromorphone HCl (Dilaudid) 0.5 mg PRN Q10MIN PRN IVP SEVERE PAIN 7-10, 2nd CHOICE; Start 09/26/21 at 14:30; Stop 09/26/21 at 18:15; Status DC Prochlorperazine Edisylate (Compazine) 5 mg PACU PRN PRN IVP NAUSEA, MRX1; Start 09/26/21 at 14:30; Stop 09/26/21 at 21:00; Status DC Fentanyl Citrate (Fentanyl 2ml Vial) 100 mcg STK-MED ONCE .ROUTE ; Start 09/26/21 at 14:23; Stop 09/26/21 at 14:25; Status DC Fentanyl Citrate (Fentanyl 2ml Vial) 25 mcg PRN Q5MIN PRN IVP MILD PAIN 1-3; Start 09/26/21 at 14:30; Stop 09/27/21 at 14:29; Status UNV Fentanyl Citrate (Fentanyl 2ml Vial) 50 mcg PRN Q5MIN PRN IVP MODERATE PAIN 4- 6; Start 09/26/21 at 14:30; Stop 09/27/21 at 14:29; Status UNV Morphine Sulfate (Morphine Sulfate) 1 mg PRN Q10MIN PRN IVP SEVERE PAIN 7-10; Start 09/26/21 at 14:30; Stop 09/27/21 at 14:29; Status UNV Ringer's Solution 1,000 ml @ 30 mls/hr Q24H IV ; Start 09/26/21 at 14:30; Stop 09/27/21 at 02:29; Status UNV Hydromorphone HCl (Dilaudid) 0.5 mg PRN Q10MIN PRN IVP SEVERE PAIN 7-10, 2nd CHOICE; Start 09/26/21 at 14:30; Stop 09/27/21 at 14:29; Status UNV Prochlorperazine Edisylate (Compazine) 5 mg PACU PRN PRN IVP NAUSEA, MRX1; Start 09/26/21 at 14:30; Stop 09/27/21 at 14:29; Status UNV Dexamethasone Sodium Phosphate (Decadron) 4 mg Q6HRS IVP Last administered on 09/28/21at 05:06; Start 09/26/21 at 18:00; Stop 09/28/21 at 06:00; Status DC Sodium Chloride 1,000 ml @ 100 mls/hr Q10H IV Last administered on 10/05/21at 06:41; Start 09/26/21 at 17:30; Stop 10/05/21 at 13:48; Status DC Cefazolin Sodium (Ancef) 1 gm Q8HRS IVP ; Start 09/27/21 at 06:00; Stop 09/27/21 at 05:47; Status DC Vancomycin HCl 1 gm/Sodium Chloride 250 ml @ 166.667 mls/hr 1X ONCE IV Last administered on 09/27/21at 06:27; Start 09/27/21 at 06:00; Stop 09/27/21 at 07:29; Status DC Gadoterate Meglumine (Clariscan) 19 ml 1X ONCE IVP Last administered on 09/29/21at 10:32; Start 09/29/21 at 08:15; Stop 09/29/21 at 08:17; Status DC Bisacodyl (Dulcolax Supp) 10 mg PRN DAILY PRN [place] CONSTIPATION; Start 09/29/21 at 14:15 Lactulose (Lactulose) 20 gm PRN DAILY PRN PO CONSTIPATION, 2nd choice Last administered on 10/01/21at 08:35; Start 09/29/21 at 14:30 Ascorbic Acid (Vitamin C) 500 mg DAILY PO Last administered on 10/20/21at 08:52; Start 10/02/21 at 10:00 Levofloxacin/ Dextrose 100 ml @ 100 mls/hr Q24H IV Last administered on 10/02/21at 12:15; Start 10/02/21 at 12:00; Stop 10/03/21 at 08:57; Status DC Levofloxacin/ Dextrose 50 ml @ 50 mls/hr Q24H IV Last administered on 10/06/21at 15:19; Start 10/03/21 at 12:00; Stop 10/06/21 at 23:00; Status DC Lactobacillus Rhamnosus (Culturelle) 1 cap BID PO Last administered on 10/20/21at 08:52; Start 10/03/21 at 21:00 Lidocaine (Lidoderm) 1 patch QHS TP Last administered on 10/19/21at 21:07; Start 10/04/21 at 22:00 Levofloxacin (Levaquin) 250 mg DAILY06 PO Last administered on 10/11/21at 06:13; Start 10/07/21 at 06:00; Stop 10/11/21 at 12:00; Status DC Insulin Human Lispro (HumaLOG) 0-5 UNITS TIDWMEALS SQ Last administered on 10/18/21at 12:16; Start 10/12/21 at 08:00; Stop 10/19/21 at 15:15; Status DC Dextrose (Dextrose 50%-Water Syringe) 12.5 gm PRN Q15MIN PRN IV SEE COMMENTS; Start 10/11/21 at 19:00 Dextrose (Iv Dextrose 5%) 250 ml PRN Q15MIN PRN IV SEE COMMENTS; Start 10/11/21 at 19:00 Potassium Chloride (Klor-Con) 40 meq 1X ONCE PO Last administered on 10/15/21at 10:21; Start 10/15/21 at 10:30; Stop 10/15/21 at 10:31; Status DC Magnesium Sulfate 50 ml @ 25 mls/hr 1X ONCE IV Last administered on 10/15/21at 10:20; Start 10/15/21 at 10:30; Stop 10/15/21 at 12:29; Status DC Baclofen (Lioresal) 10 mg Q8HRS PO Last administered on 10/17/21at 06:02; Start 10/16/21 at 22:00; Stop 10/17/21 at 11:58; Status DC Baclofen (Lioresal) 10 mg Q6HRS PO Last administered on 10/20/21at 12:35; Start 10/17/21 at 12:00 Triamcinolone Acetonide (Kenalog-40) 40 mg 1X ONCE IM Last administered on 10/17/21at 12:15; Start 10/17/21 at 12:15; Stop 10/17/21 at 12:16; Status DC Bupivacaine HCl (Sensorcaine-Mpf 0.25%) 10 ml 1X ONCE IJ Last administered on 10/17/21at 12:00; Start 10/17/21 at 12:00; Stop 10/17/21 at 12:01; Status DC Magnesium Sulfate 100 ml @ 25 mls/hr 1X ONCE IV Last administered on 10/18/21at 14:11; Start 10/18/21 at 14:30; Stop 10/18/21 at 18:29; Status DC Vitamin B Complex (Folbic Tablet) 1 tab DAILY PO Last administered on 10/20/21at 08:53; Start 10/18/21 at 14:30 Non-Formulary Medication (L-Carnitine 500 Mg Capsule) 1 ea DAILY PO Last administered on 10/20/21at 08:54; Start 10/19/21 at 13:00 Insulin Human Lispro (HumaLOG) 0-5 UNITS PRN BFRMEAL PRN SQ SEE ADMIN INSTRUCTIONS; Start 10/19/21 at 15:15 Active Scripts Active Dok (Docusate Sodium) 100 Mg Capsule 100 Mg PO PRN BID PRN 30 Days Tylenol (Acetaminophen) 325 Mg Tablet 650 Mg PO PRN Q4HRS PRN 30 Days Valium (Diazepam) 5 Mg Tablet 5 Mg PO TID Atorvastatin Calcium 10 Mg Tablet 10 Mg PO QHS Reported Midodrine Hcl 2.5 Mg Tablet 2.5 Mg PO PRN 1X PRN Aspirin 81 Mg Tab.chew 81 Mg PO DAILY Baclofen 10 Mg Tablet 10 Mg PO BID Lyrica (Pregabalin) 100 Mg Capsule 100 Mg PO BID 30 Days Polyethylene Glycol 3350 2,500 Gm Powder 17 Gm PO DAILY 30 Days Micatin (Miconazole Nitrate) 14 Gm Cream..g. 1 Crispin TP TID Tradjenta (Linagliptin) 5 Mg Tablet 5 Mg PO DAILY Lidocaine PATCH (Lidocaine) 1 Each Adh..patch 1 Each TP DAILY REMOVE AFTER 12 HOURS Levemir (Insulin Detemir) 100 Unit/1 Ml Vial 4 Unit SQ HS Hydroxyzine Hcl 25 Mg Tablet 25 Mg PO PRN Q6HRS PRN Fluticasone Propionate Nasal King (Fluticasone Propionate) 16 Gm King.susp 2 King NS DAILY Diclofenac Sodium 100 Gm Gel..gram. 100 Gm TP PRN TID PRN Losartan Potassium 100 Mg Tablet 25 Tab PO DAILY08 Vitals/I & O Vital Sign - Last 24 Hours 10/19/21 10/19/21 10/19/21 10/19/21 16:00 20:00 21:06 21:40 Temp 97.4 97.4 Pulse 82 Resp 16 20 20 B/P (MAP) 126/73 (90) Pulse Ox 97 O2 Delivery Room Air Room Air Room Air 10/19/21 10/20/21 10/20/21 10/20/21 23:00 03:00 07:00 08:03 Temp 98.2 98.4 97.9 98.2 98.4 97.9 Pulse 75 59 61 Resp 16 16 17 B/P (MAP) 108/49 (68) 103/53 (70) 104/55 (71) Pulse Ox 98 98 97 O2 Delivery Room Air Room Air Room Air Room Air 10/20/21 10/20/21 10/20/21 10/20/21 08:51 08:57 09:30 11:17 Temp 98.1 98.1 Pulse 77 72 Resp 20 B/P (MAP) 128/76 125/66 (85) Pulse Ox 96 O2 Delivery Room Air Room Air Room Air 10/20/21 10/20/21 14:45 15:02 Temp 98.7 98.7 Pulse 85 Resp 20 B/P (MAP) 130/65 (86) Pulse Ox 97 O2 Delivery Room Air Room Air Intake and Output 10/19/21 10/19/21 10/20/21 14:59 22:59 06:59 Output Total 750 ml 600 ml Balance -750 ml -600 ml Justifications for Admission Other Justification uncontrolled diabetes TODD RIVERA APRN Oct 20, 2021 15:57
[2021-10-20 19:00] VITALS: BP 128/64
[2021-10-20] MEDS: ATORVASTATIN CALCIUM 10 MG TABLET. PO SCH (21:20)
[2021-10-20] MEDS: LIDOCAINE (700MG/PATCH) PATCH. TP SCH (21:21)
[2021-10-20] MEDS: INSULIN GLARGINE SYRINGE. SQ SCH (21:28)
[2021-10-20 23:00] VITALS: BP 115/59
[2021-10-20] MEDS: hydrOXYzine 25 MG TABLET PO PRN (23:07)
[2021-10-21 03:00] VITALS: BP 102/47
[2021-10-21] MEDS: oxyCODONE IR 5 MG TABLET PO PRN ×2 (03:35→12:11)
[2021-10-21] MEDS: BACLOFEN 10 MG TABLET. PO SCH ×4 (06:10→18:20)
[2021-10-21 07:00] VITALS: BP 122/47
[2021-10-21] MEDS: POLYETHYLENE GLYCOL 3350 17 GM PACKET. PO SCH (07:18)
[2021-10-21] MEDS: LACTOBACILLUS RHAMNOSUS GG 1 CAPSULE. PO SCH ×2 (08:14→20:44)
[2021-10-21] MEDS: LOSARTAN POTASSIUM 25 MG TABLET. PO SCH (08:14)
[2021-10-21] MEDS: LINAGLIPTIN 5 MG TABLET PO SCH (08:14)
[2021-10-21] MEDS: VITAMIN B12,B9,B6 COMPLEX 1 TABLET. PO SCH (08:14)
[2021-10-21] MEDS: ASCORBIC ACID 500 MG TABLET PO SCH (08:14)
[2021-10-21] MEDS: PREGABALIN 50 MG CAPSULE PO SCH ×2 (08:15→20:44)
[2021-10-21] MEDS: diazePAM 5 MG TABLET PO SCH ×3 (08:15→20:45)
[2021-10-21] MEDS: INSULIN LISPRO 300 UNITS/3 ML VIAL. SQ PRN ×2 (08:23→17:33)
[2021-10-21] MEDS: FLUTICASONE 50MCG/NASAL SPRAY 16GM BOTTLE. NS SCH (09:00)
[2021-10-21] MEDS: CARNITINE 500 MG PO SCH (09:00)
[2021-10-21 11:00] VITALS: BP 123/60
--- NOTE | 2021-10-21 11:32 | PDOC ---
PROGRESS NOTES Date of Service DATE: 10/21/21 TIME: 11:30 Subjective Subjective No new problems and right shoulder pain is less. Objective Objective Vital Signs Date Time Temp Pulse Resp B/P (MAP) Pulse Ox O2 Delivery O2 Flow Rate FiO2 10/21/21 11:00 98.2 74 14 123/60 (81) 94 Room Air 98.2 10/17/21 20:00 2.0 Intake and Output 10/21/21 07:00 Intake Total 1220 ml Output Total 2500 ml Balance -1280 ml Intake Oral 1220 ml Output Urine Total 2500 ml Physical Exam Physical Exam He is alert,supine in bed and seems to be comfortable and no change with his neurological status. Plan Plan of Care To continue present rehab efforts as tolerated. Comment Review of Relevant I have reviewed the following items michelle (where applicable) has been applied. Labs Laboratory Tests Test 10/19/21 12:23 10/20/21 06:21 10/20/21 21:23 10/21/21 07:45 Glucose (Fingerstick) 146 mg/dL (70-99) 121 mg/dL (70-99) 167 mg/dL (70-99) 195 mg/dL (70-99) Laboratory Tests Test 10/20/21 21:23 10/21/21 07:45 Glucose (Fingerstick) 167 mg/dL (70-99) 195 mg/dL (70-99) Microbiology 10/01/21 Urine Culture - Final, Complete Escherichia Coli Escherichia Coli#2 Medications Current Medications Fentanyl Citrate (Fentanyl 2ml Vial) 25 mcg PRN Q5MIN PRN IVP MILD PAIN 1-3; Start 09/25/21 at 06:00; Stop 09/25/21 at 20:00; Status DC Fentanyl Citrate (Fentanyl 2ml Vial) 50 mcg PRN Q5MIN PRN IVP MODERATE PAIN 4-6 Last administered on 09/25/21at 13:48; Start 09/25/21 at 06:00; Stop 09/25/21 at 20:00; Status DC Morphine Sulfate (Morphine Sulfate) 1 mg PRN Q10MIN PRN IVP SEVERE PAIN 7-10 Last administered on 09/25/21at 14:21; Start 09/25/21 at 06:00; Stop 09/25/21 at 20:00; Status DC Ringer's Solution 1,000 ml @ 30 mls/hr Q24H IV Last administered on 09/25/21at 12:54; Start 09/25/21 at 06:00; Stop 09/25/21 at 17:59; Status DC Hydromorphone HCl (Dilaudid) 0.5 mg PRN Q10MIN PRN IVP SEVERE PAIN 7-10, 2nd CHOICE Last administered on 09/25/21at 16:53; Start 09/25/21 at 06:00; Stop 09/25/21 at 20:00; Status DC Prochlorperazine Edisylate (Compazine) 5 mg PACU PRN PRN IVP NAUSEA, MRX1; Start 09/25/21 at 06:00; Stop 09/25/21 at 20:00; Status DC Cefazolin Sodium 1 gm/Sodium Chloride 1,000 ml @ 1,000 mls/hr 1X ONCE IRR Last administered on 09/25/21at 10:14; Start 09/25/21 at 06:00; Stop 09/25/21 at 06:59; Status DC Cefazolin Sodium/ Dextrose 50 ml @ 100 mls/hr 1X PREOP PRN IV PRIOR TO PROCEDURE Last administered on 09/25/21at 09:30; Start 09/25/21 at 06:00; Stop 09/25/21 at 13:39; Status DC Insulin Human Lispro (HumaLOG VIAL for OP,RR ONLY) 0-10 units PRN Q1HR PRN SQ PER PROTOCOL Last administered on 09/25/21at 17:01; Start 09/25/21 at 07:00; Stop 09/25/21 at 18:00; Status DC Bupivacaine HCl/ Epinephrine Bitart (Sensorcain-Epi 0.5% Kit) 30 ml STK-MED ONCE INJ Last administered on 09/25/21at 10:14; Start 09/25/21 at 10:14; Stop 09/25/21 at 10:30; Status DC Ketorolac Tromethamine (Toradol Im) 60 mg STK-MED ONCE INJ Last administered on 09/25/21at 10:14; Start 09/25/21 at 10:14; Stop 09/25/21 at 10:30; Status DC Thrombin 20,000 unit STK-MED ONCE TP Last administered on 09/25/21at 10:14; Start 09/25/21 at 10:14; Stop 09/25/21 at 10:30; Status DC Gelatin (Gelfoam Size 100) 1 each STK-MED ONCE TP Last administered on 09/25/21 10:14; Start 09/25/21 at 10:14; Stop 09/25/21 at 10:30; Status DC Acetaminophen (Tylenol) 650 mg PRN Q4HRS PRN PO TEMP OVER 100.4F OR MILD PAIN Last administered on 10/20/21 20:27; Start 09/25/21 at 12:30 Aspirin (Aspirin Chewable) 81 mg DAILY PO Last administered on 09/26/21 08:30; Start 09/26/21 at 09:00; Stop 09/28/21 at 17:19; Status DC Atorvastatin Calcium (Lipitor) 10 mg QHS PO Last administered on 10/20/21 21:20; Start 09/25/21 at 21:00 Baclofen (Lioresal) 10 mg BID PO Last administered on 10/16/21 08:26; Start 09/25/21 at 21:00; Stop 10/16/21 at 13:21; Status DC Diazepam (Valium) 5 mg TID PO Last administered on 10/21/21 08:15; Start 09/25/21 at 14:00 Docusate Sodium (Colace) 100 mg PRN BID PRN PO HARD STOOLS Last administered on 10/15/21 10:22; Start 09/25/21 at 12:30 Fluticasone Propionate (Flonase) 2 spray DAILY NS Last administered on 10/17/21at 12:58; Start 09/26/21 at 09:00 Hydroxyzine HCl (Atarax) 25 mg PRN Q6HRS PRN PO Itching (2ND Choice) Last administered on 10/20/21 23:07; Start 09/25/21 at 12:30 Lidocaine (Lidoderm) 1 patch QHS TP Last administered on 10/03/21 23:31; Start 09/25/21 at 20:00; Stop 10/05/21 at 01:01; Status DC Linagliptin (Tradjenta) 5 mg DAILY PO Last administered on 10/21/21 08:14; Start 09/25/21 at 13:00 Miconazole Nitrate (Monistat-Derm) 1 crispin TID TP Last administered on 10/04/21at 20:08; Start 09/25/21 at 21:00; Stop 10/05/21 at 13:23; Status DC Midodrine (Proamatine) 2.5 mg PRN 1X PRN PO hypotension Last administered on 09/27/21at 08:56; Start 09/25/21 at 12:30 Oxycodone HCl (Roxicodone) 10 mg PRN Q6HRS PRN PO MODERATE-SEVERE PAIN Last administered on 10/21/21at 03:35; Start 09/25/21 at 12:30 Diclofenac Sodium (Voltaren) 1 crispin PRN TID PRN TP PAIN CONTROL; Start 09/25/21 at 13:15; Stop 09/25/21 at 18:37; Status DC Insulin Glargine (Lantus Syringe) 4 unit QHS SQ Last administered on 10/20/21at 21:28; Start 09/25/21 at 21:00 Losartan Potassium (Cozaar) 25 mg DAILY08 PO Last administered on 10/21/21at 08:14; Start 09/26/21 at 08:00 Polyethylene Glycol (miraLAX PACKET) 17 gm DAILY PO Last administered on 10/13/21at 08:53; Start 09/25/21 at 14:00 Pregabalin (Lyrica) 100 mg BID PO Last administered on 10/21/21at 08:15; Start 09/25/21 at 21:00 Acetaminophen (Tylenol) 650 mg PRN Q6HRS PRN PO MILD PAIN / TEMP > 100.3'F; Start 09/25/21 at 12:30; Status Cancel Al Hydroxide/Mg Hydroxide (Mylanta Plus Xs) 30 ml PRN Q3HRS PRN PO HEARTBURN / GAS; Start 09/25/21 at 12:30 Calcium Carbonate/ Glycine (Tums) 500 mg PRN Q3HRS PRN PO INDIGESTION; Start 09/25/21 at 12:30 Diphenhydramine HCl (Benadryl) 25 mg PRN Q6HRS PRN PO ITCHING (1ST CHOICE); Start 09/25/21 at 12:30 Naloxone HCl (Narcan) 0.1 mg PRN Q2MIN PRN IV SEE COMMENTS; Start 09/25/21 at 12:30 Sodium Chloride (Normal Saline Flush) 3 ml QSHIFT PRN IV AFTER MEDS AND BLOOD DRAWS; Start 09/25/21 at 12:30 Potassium Chloride/Sodium Chloride 1,000 ml @ 75 mls/hr [id number] IV Last administered on 09/26/21at 07:00; Start 09/25/21 at 12:30; Stop 09/26/21 at 17:33; Status DC Magnesium Hydroxide (Milk Of Magnesia) 2,400 mg PRN Q12HR PRN PO CONSTIPATION; Start 09/25/21 at 12:30 Cefazolin Sodium (Ancef) 1 gm Q8H IVP Last administered on 09/26/21at 04:14; Start 09/25/21 at 18:00; Stop 09/26/21 at 10:01; Status DC Fentanyl Citrate (Fentanyl 2ml Vial) 50 mcg PRN Q2HR PRN IVP MODERATE TO SEVERE PAIN Last administered on 10/05/21at 22:46; Start 09/25/21 at 12:30 Dextrose (Dextrose 50%-Water Syringe) 12.5 gm PRN Q15MIN PRN IV SEE COMMENTS; Start 09/25/21 at 12:30; Status Cancel Dextrose (Iv Dextrose 5%) 250 ml PRN Q15MIN PRN IV SEE COMMENTS; Start 09/25/21 at 12:30; Status Cancel Gelatin (Gelfoam Size 100) 1 each STK-MED ONCE .ROUTE ; Start 09/25/21 at 06:37; Stop 09/25/21 at 14:55; Status DC Bupivacaine HCl/ Epinephrine Bitart (Sensorcain-Epi 0.5% Kit) 30 ml STK-MED ONCE .ROUTE ; Start 09/25/21 at 06:37; Stop 09/25/21 at 14:55; Status DC Ketorolac Tromethamine (Toradol Im) 60 mg STK-MED ONCE .ROUTE ; Start 09/25/21 at 06:37; Stop 09/25/21 at 14:55; Status DC Thrombin 20,000 unit STK-MED ONCE TP ; Start 09/25/21 at 06:38; Stop 09/25/21 at 14:55; Status DC Propofol (Diprivan) 200 mg STK-MED ONCE IV ; Start 09/25/21 at 05:54; Stop 09/25/21 at 14:57; Status DC Lidocaine HCl (Lidocaine Pf 2% Vial) 5 ml STK-MED ONCE .ROUTE ; Start 09/25/21 at 05:54; Stop 09/25/21 at 14:57; Status DC Ondansetron HCl (Zofran) 4 mg STK-MED ONCE .ROUTE ; Start 09/25/21 at 05:54; Stop 09/25/21 at 14:57; Status DC Phenylephrine HCl (Ramone-Synephrine Inj) 10 mg STK-MED ONCE .ROUTE ; Start 09/25/21 at 05:54; Stop 09/25/21 at 14:57; Status DC Propofol 50 ml @ As Directed STK-MED ONCE IV ; Start 09/25/21 at 05:54; Stop 09/25/21 at 14:57; Status DC Dexamethasone Sodium Phosphate (Decadron) 4 mg STK-MED ONCE .ROUTE ; Start 09/25/21 at 05:54; Stop 09/25/21 at 14:57; Status DC Fentanyl Citrate (Fentanyl 2ml Vial) 100 mcg STK-MED ONCE .ROUTE ; Start 09/25/21 at 05:54; Stop 09/25/21 at 14:57; Status DC Succinylcholine Chloride (Anectine) 200 mg STK-MED ONCE .ROUTE ; Start 09/25/21 at 05:54; Stop 09/25/21 at 14:57; Status DC Remifentanil HCl (Ultiva) 1 mg STK-MED ONCE IV ; Start 09/25/21 at 05:54; Stop 09/25/21 at 14:57; Status DC Glycopyrrolate (Robinul) 1 mg STK-MED ONCE .ROUTE ; Start 09/25/21 at 07:11; Stop 09/25/21 at 15:01; Status DC Propofol 50 ml @ As Directed STK-MED ONCE IV ; Start 09/25/21 at 08:07; Stop 09/25/21 at 15:02; Status DC Ketamine HCl (Ketamine) 50 mg STK-MED ONCE .ROUTE ; Start 09/25/21 at 08:15; Stop 09/25/21 at 15:02; Status DC Hydromorphone HCl (Dilaudid) 2 mg STK-MED ONCE .ROUTE ; Start 09/25/21 at 10:44; Stop 09/25/21 at 15:03; Status DC Fentanyl Citrate (Fentanyl 2ml Vial) 100 mcg STK-MED ONCE .ROUTE ; Start 09/25/21 at 13:26; Stop 09/25/21 at 15:04; Status DC Morphine Sulfate (Morphine Sulfate) 2 mg STK-MED ONCE .ROUTE ; Start 09/25/21 at 14:04; Stop 09/25/21 at 15:05; Status DC Hydromorphone HCl (Dilaudid) 2 mg STK-MED ONCE .ROUTE ; Start 09/25/21 at 14:54; Stop 09/25/21 at 15:06; Status DC Menthol/Methyl Salicylate ([place] Greaseless Cream) 1 crispin PRN Q30MIN PRN TP MUSCLE PAIN Last administered on 10/02/21at 21:03; Start 09/25/21 at 18:45 Mupirocin (Bactroban) 1 crispin BID NS Last administered on 10/12/21at 21:09; Start 09/26/21 at 09:00; Stop 10/13/21 at 07:56; Status DC Dexamethasone Sodium Phosphate (Decadron) 10 mg 1X ONCE IVP Last administered on 09/26/21at 07:31; Start 09/26/21 at 07:30; Stop 09/26/21 at 07:31; Status DC Cefazolin Sodium 1 gm/Sodium Chloride 1,000 ml @ 1,000 mls/hr 1X ONCE IRR Last administered on 09/26/21at 11:52; Start 09/26/21 at 10:30; Stop 09/26/21 at 11:29; Status DC Cefazolin Sodium (Ancef) 1 gm STK-MED ONCE IVP ; Start 09/26/21 at 10:05; Stop 09/26/21 at 10:06; Status DC Lidocaine HCl (Lidocaine Pf 2% Vial) 5 ml STK-MED ONCE .ROUTE ; Start 09/26/21 at 10:18; Stop 09/26/21 at 10:18; Status DC Ondansetron HCl (Zofran) 4 mg STK-MED ONCE .ROUTE ; Start 09/26/21 at 10:18; Stop 09/26/21 at 10:18; Status DC Propofol (Diprivan) 200 mg STK-MED ONCE IV ; Start 09/26/21 at 10:18; Stop 09/26/21 at 10:19; Status DC Dexamethasone Sodium Phosphate (Decadron) 4 mg STK-MED ONCE .ROUTE ; Start 09/26/21 at 10:18; Stop 09/26/21 at 10:19; Status DC Sevoflurane (Ultane) 30 ml STK-MED ONCE IH ; Start 09/26/21 at 10:18; Stop 09/26/21 at 10:19; Status DC Fentanyl Citrate (Fentanyl 2ml Vial) 100 mcg STK-MED ONCE .ROUTE ; Start 09/26/21 at 10:19; Stop 09/26/21 at 10:19; Status DC Rocuronium [place] (Zemuron) 50 mg STK-MED ONCE .ROUTE ; Start 09/26/21 at 10:19; Stop 09/26/21 at 10:19; Status DC Insulin Human Lispro (HumaLOG VIAL for OP,RR ONLY) 0-10 units PRN Q1HR PRN SQ PER PROTOCOL Last administered on 09/26/21at 15:11; Start 09/26/21 at 10:30; Stop 09/26/21 at 18:00; Status DC Sugammadex Sodium (Bridion) 200 mg 1X ONCE IVP Last administered on 09/26/21at 10:30; Start 09/26/21 at 10:30; Stop 09/26/21 at 10:31; Status DC Gelatin (Gelfoam Size 100) 1 each STK-MED ONCE .ROUTE Last administered on 09/26/21at 11:52; Start 09/26/21 at 10:30; Stop 09/26/21 at 10:30; Status DC Bupivacaine HCl/ Epinephrine Bitart (Sensorcain-Epi 0.5% Kit) 30 ml STK-MED ONCE .ROUTE ; Start 09/26/21 at 10:30; Stop 09/26/21 at 10:30; Status DC Ketorolac Tromethamine (Toradol Im) 60 mg STK-MED ONCE .ROUTE ; Start 09/26/21 at 10:30; Stop 09/26/21 at 10:30; Status DC Thrombin 20,000 unit STK-MED ONCE TP Last administered on 09/26/21at 11:52; Start 09/26/21 at 10:30; Stop 09/26/21 at 10:31; Status DC Cefazolin Sodium/ Dextrose 50 ml @ As Directed STK-MED ONCE IV ; Start 09/26/21 at 10:32; Stop 09/26/21 at 10:32; Status DC Vancomycin HCl 1 gm/Sodium Chloride 250 ml @ 250 mls/hr PREOP PRN PRN IV PRIOR TO PROCEDURE; Start 09/26/21 at 10:45; Stop 09/26/21 at 14:00; Status DC Cefazolin Sodium/ Dextrose 50 ml @ 100 mls/hr 1X ONCE IV Last administered on 09/26/21at 11:00; Start 09/26/21 at 11:00; Stop 09/26/21 at 11:29; Status DC Dexamethasone Sodium Phosphate (Decadron) 4 mg STK-MED ONCE .ROUTE ; Start 09/26/21 at 11:04; Stop 09/26/21 at 11:04; Status DC Glycopyrrolate (Robinul) 1 mg STK-MED ONCE .ROUTE ; Start 09/26/21 at 11:04; Stop 09/26/21 at 11:04; Status DC Hydromorphone HCl (Dilaudid) 2 mg STK-MED ONCE .ROUTE ; Start 09/26/21 at 11:56; Stop 09/26/21 at 11:56; Status DC Fentanyl Citrate (Fentanyl 2ml Vial) 25 mcg PRN Q5MIN PRN IVP MILD PAIN 1-3; Start 09/26/21 at 14:30; Stop 09/26/21 at 18:15; Status DC Fentanyl Citrate (Fentanyl 2ml Vial) 50 mcg PRN Q5MIN PRN IVP MODERATE PAIN 4- 6; Start 09/26/21 at 14:30; Stop 09/26/21 at 18:15; Status DC Morphine Sulfate (Morphine Sulfate) 1 mg PRN Q10MIN PRN IVP SEVERE PAIN 7-10; Start 09/26/21 at 14:30; Stop 09/26/21 at 18:15; Status DC Ringer's Solution 1,000 ml @ 30 mls/hr Q24H IV Last administered on 09/26/21at 15:18; Start 09/26/21 at 14:30; Stop 09/26/21 at 21:00; Status DC Hydromorphone HCl (Dilaudid) 0.5 mg PRN Q10MIN PRN IVP SEVERE PAIN 7-10, 2nd CHOICE; Start 09/26/21 at 14:30; Stop 09/26/21 at 18:15; Status DC Prochlorperazine Edisylate (Compazine) 5 mg PACU PRN PRN IVP NAUSEA, MRX1; Start 09/26/21 at 14:30; Stop 09/26/21 at 21:00; Status DC Fentanyl Citrate (Fentanyl 2ml Vial) 100 mcg STK-MED ONCE .ROUTE ; Start 09/26/21 at 14:23; Stop 09/26/21 at 14:25; Status DC Fentanyl Citrate (Fentanyl 2ml Vial) 25 mcg PRN Q5MIN PRN IVP MILD PAIN 1-3; Start 09/26/21 at 14:30; Stop 09/27/21 at 14:29; Status UNV Fentanyl Citrate (Fentanyl 2ml Vial) 50 mcg PRN Q5MIN PRN IVP MODERATE PAIN 4- 6; Start 09/26/21 at 14:30; Stop 09/27/21 at 14:29; Status UNV Morphine Sulfate (Morphine Sulfate) 1 mg PRN Q10MIN PRN IVP SEVERE PAIN 7-10; Start 09/26/21 at 14:30; Stop 09/27/21 at 14:29; Status UNV Ringer's Solution 1,000 ml @ 30 mls/hr Q24H IV ; Start 09/26/21 at 14:30; Stop 09/27/21 at 02:29; Status UNV Hydromorphone HCl (Dilaudid) 0.5 mg PRN Q10MIN PRN IVP SEVERE PAIN 7-10, 2nd CHOICE; Start 09/26/21 at 14:30; Stop 09/27/21 at 14:29; Status UNV Prochlorperazine Edisylate (Compazine) 5 mg PACU PRN PRN IVP NAUSEA, MRX1; Start 09/26/21 at 14:30; Stop 09/27/21 at 14:29; Status UNV Dexamethasone Sodium Phosphate (Decadron) 4 mg Q6HRS IVP Last administered on 09/28/21at 05:06; Start 09/26/21 at 18:00; Stop 09/28/21 at 06:00; Status DC Sodium Chloride 1,000 ml @ 100 mls/hr Q10H IV Last administered on 10/05/21at 06:41; Start 09/26/21 at 17:30; Stop 10/05/21 at 13:48; Status DC Cefazolin Sodium (Ancef) 1 gm Q8HRS IVP ; Start 09/27/21 at 06:00; Stop 09/27/21 at 05:47; Status DC Vancomycin HCl 1 gm/Sodium Chloride 250 ml @ 166.667 mls/hr 1X ONCE IV Last administered on 09/27/21at 06:27; Start 09/27/21 at 06:00; Stop 09/27/21 at 07:29; Status DC Gadoterate Meglumine (Clariscan) 19 ml 1X ONCE IVP Last administered on 09/29/21at 10:32; Start 09/29/21 at 08:15; Stop 09/29/21 at 08:17; Status DC Bisacodyl (Dulcolax Supp) 10 mg PRN DAILY PRN AL CONSTIPATION; Start 09/29/21 at 14:15 Lactulose (Lactulose) 20 gm PRN DAILY PRN PO CONSTIPATION, 2nd choice Last administered on 10/01/21at 08:35; Start 09/29/21 at 14:30 Ascorbic Acid (Vitamin C) 500 mg DAILY PO Last administered on 10/21/21at 08:14; Start 10/02/21 at 10:00 Levofloxacin/ Dextrose 100 ml @ 100 mls/hr Q24H IV Last administered on 10/02/21at 12:15; Start 10/02/21 at 12:00; Stop 10/03/21 at 08:57; Status DC Levofloxacin/ Dextrose 50 ml @ 50 mls/hr Q24H IV Last administered on 10/06/21at 15:19; Start 10/03/21 at 12:00; Stop 10/06/21 at 23:00; Status DC Lactobacillus Rhamnosus (Culturelle) 1 cap BID PO Last administered on 10/21/21at 08:14; Start 10/03/21 at 21:00 Lidocaine (Lidoderm) 1 patch QHS TP Last administered on 10/20/21at 21:21; Start 10/04/21 at 22:00 Levofloxacin (Levaquin) 250 mg DAILY06 PO Last administered on 10/11/21at 06:13; Start 10/07/21 at 06:00; Stop 10/11/21 at 12:00; Status DC Insulin Human Lispro (HumaLOG) 0-5 UNITS TIDWMEALS SQ Last administered on 10/18/21at 12:16; Start 10/12/21 at 08:00; Stop 10/19/21 at 15:15; Status DC Dextrose (Dextrose 50%-Water Syringe) 12.5 gm PRN Q15MIN PRN IV SEE COMMENTS; Start 10/11/21 at 19:00 Dextrose (Iv Dextrose 5%) 250 ml PRN Q15MIN PRN IV SEE COMMENTS; Start 10/11/21 at 19:00 Potassium Chloride (Klor-Con) 40 meq 1X ONCE PO Last administered on 10/15/21at 10:21; Start 10/15/21 at 10:30; Stop 10/15/21 at 10:31; Status DC Magnesium Sulfate 50 ml @ 25 mls/hr 1X ONCE IV Last administered on 10/15/21at 10:20; Start 10/15/21 at 10:30; Stop 10/15/21 at 12:29; Status DC Baclofen (Lioresal) 10 mg Q8HRS PO Last administered on 10/17/21at 06:02; Start 10/16/21 at 22:00; Stop 10/17/21 at 11:58; Status DC Baclofen (Lioresal) 10 mg Q6HRS PO Last administered on 10/21/21at 06:10; Start 10/17/21 at 12:00 Triamcinolone Acetonide (Kenalog-40) 40 mg 1X ONCE IM Last administered on 10/17/21at 12:15; Start 10/17/21 at 12:15; Stop 10/17/21 at 12:16; Status DC Bupivacaine HCl (Sensorcaine-Mpf 0.25%) 10 ml 1X ONCE IJ Last administered on 10/17/21at 12:00; Start 10/17/21 at 12:00; Stop 10/17/21 at 12:01; Status DC Magnesium Sulfate 100 ml @ 25 mls/hr 1X ONCE IV Last administered on 10/18/21at 14:11; Start 10/18/21 at 14:30; Stop 10/18/21 at 18:29; Status DC Vitamin B Complex (Folbic Tablet) 1 tab DAILY PO Last administered on 10/21/21at 08:14; Start 10/18/21 at 14:30 Non-Formulary Medication (L-Carnitine 500 Mg Capsule) 1 ea DAILY PO Last administered on 10/20/21at 08:54; Start 10/19/21 at 13:00 Insulin Human Lispro (HumaLOG) 0-5 UNITS PRN BFRMEAL PRN SQ SEE ADMIN INSTRUCTIONS Last administered on 10/21/21at 08:23; Start 10/19/21 at 15:15 Active Scripts Active Dok (Docusate Sodium) 100 Mg Capsule 100 Mg PO PRN BID PRN 30 Days Tylenol (Acetaminophen) 325 Mg Tablet 650 Mg PO PRN Q4HRS PRN 30 Days Valium (Diazepam) 5 Mg Tablet 5 Mg PO TID Atorvastatin Calcium 10 Mg Tablet 10 Mg PO QHS Reported Midodrine Hcl 2.5 Mg Tablet 2.5 Mg PO PRN 1X PRN Aspirin 81 Mg Tab.chew 81 Mg PO DAILY Baclofen 10 Mg Tablet 10 Mg PO BID Lyrica (Pregabalin) 100 Mg Capsule 100 Mg PO BID 30 Days Polyethylene Glycol 3350 2,500 Gm Powder 17 Gm PO DAILY 30 Days Micatin (Miconazole Nitrate) 14 Gm Cream..g. 1 [place] TP TID Tradjenta (Linagliptin) 5 Mg Tablet 5 Mg PO DAILY Lidocaine PATCH (Lidocaine) 1 Each Adh..patch 1 Each TP DAILY REMOVE AFTER 12 HOURS Levemir (Insulin Detemir) 100 Unit/1 Ml Vial 4 Unit SQ HS Hydroxyzine Hcl 25 Mg Tablet 25 Mg PO PRN Q6HRS PRN Fluticasone Propionate Nasal [place] (Fluticasone Propionate) 16 Gm [place].susp 2 [place] NS DAILY Diclofenac Sodium 100 Gm Gel..gram. 100 Gm TP PRN TID PRN Losartan Potassium 100 Mg Tablet 25 Tab PO DAILY08 Vitals/I & O Vital Sign - Last 24 Hours 10/20/21 10/20/21 10/20/21 10/20/21 14:45 15:02 19:00 19:40 Temp 98.7 98.2 98.7 98.2 Pulse 85 80 Resp 20 20 B/P (MAP) 130/65 (86) 128/64 (85) Pulse Ox 97 93 O2 Delivery Room Air Room Air Room Air Room Air 10/20/21 10/20/21 10/20/21 10/21/21 21:36 22:06 23:00 03:00 Temp 97.9 98.5 97.9 98.5 Pulse 67 62 Resp 20 20 14 14 B/P (MAP) 115/59 (77) 102/47 (65) Pulse Ox 96 100 O2 Delivery Room Air Room Air Room Air Room Air 10/21/21 10/21/21 10/21/21 10/21/21 03:35 04:05 07:00 08:14 Temp 98.3 98.3 Pulse 75 75 Resp 20 20 14 B/P (MAP) 122/47 (72) 122/47 Pulse Ox 95 O2 Delivery Room Air Room Air Room Air 10/21/21 11:00 Temp 98.2 98.2 Pulse 74 Resp 14 B/P (MAP) 123/60 (81) Pulse Ox 94 O2 Delivery Room Air Intake and Output 10/20/21 10/20/21 10/21/21 15:00 23:00 07:00 Intake Total 420 ml 800 ml Output Total 400 ml 2100 ml Balance 20 ml -1300 ml Justifications for Admission Other Justification uncontrolled diabetes TERRY JURADO MD Oct 21, 2021 11:32
--- NOTE | 2021-10-21 13:29 | PDOC ---
[employer] PROGRESS NOTE Date of Service DOS: DATE: 10/21/21 TIME: 13:28 Chief Complaint Chief Complaint Cervical spinal cord injury - Concern for C5 cord edema, cord compression, a right lateral C5 fracture, and concern for numerous ligamentous injuries. 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 S/p decompression 07/26/2021 and repeat surgeries 09/25 and 09/26 Diabetes - sliding scale plus basal HTN - prn hydralazine HLD - statin when taking PO Cervical laminectomy as per above, diabetes, hypertension, hyperlipidemia, arthritis, GERD, left knee arthroplasty and TIA S/p; IVC filter FEN - ADAT PPX - SCDs FULL CODE Dispo - Inpatient History of Present Illness History of Present Illness 10/21/2021 No acute events overnight. Patient seen examined bedside. Still working with PT OT and pending neuro rehab placement. Insurance issues still pending. Complaining of weakness is about the same and having pain in his extremities that have somewhat improved. 3 [phone] No acute events overnight. Patient seen examined bedside. Injection received in right shoulder with Dr. JURADO. Patient tolerated procedure well. Spasms have improved. Pending placement to neuro rehab as a possibility. Patient's chart, labs, images were reviewed and discussed with RN 10/19/2021 No acute events overnight. Patient seen examined bedside. Spasms have improved and pain overall has improved after adjustment with baclofen. Continuing with rehab modalities. Patient's chart, labs, images were reviewed and discussed with RN 10/18: Right shoulder radiograph with some degenerative changes. Had some spasming this morning, but feeling better currently. Mag 1.6. Discussed addition of B6, 9, 12 and needs for complex neuro rehab. 10/17/2021 No acute events overnight. Patient seen examined bedside. Still complaining of muscle spasms. Baclofen has been increased. He is already on Valium and Lyrica. Considering neurology consult for evaluation. Pending right shoulder x-ray. Patient's chart, labs, images were reviewed and discussed with RN 10/16: Seen in ICU notes spasming started again last night this happened about 6 times even when he tries to reach up and scratch his eyelid. Having some more pain in his right biceps and left Achilles area. 10/15: Seen bedside in ICU getting bed bath. Says his spasming is improved today having a little bit of shortness of breath but no cough. No chest pain. 10/14: Seen bedside in ICU. Still with spasming upon awakening in his hands and feet still with some weakness in his left foot. Poor appetite. 10/13: Patient seen and examined. Discussed with neurosurgery nurse practitioner Roberta 10/12: Patient seen and examined 10/11: Patient seen and examined. His discharge was held again as he was not accepted at [facility] 10/09: His sister is here as well discussed with her. Plan is to get the patient to [facility] long-term if they accept him 10/08: Patient seen and examined. He is moving his toes more each day 10/07: Patient seen and examined in the ICU (he is actually in overfull patient). He is working with his nurse to try to use his nurse button and remote control. Started to move his toes a little bit 10/06/2021 Patient seen and examined in the ICU I discussed the case with his sister again I also discussed the case with case management [facility] after all now that he is improved over the past 3 days 10/05/2021 Patient seen and examined in the ICU His nurses are starting to get ready to clean him up His sister is present Discussed with RN Discussed with case management [facility] transfer if it can be arranged 10/04/2021 Patient seen and examined again in the ICU He remains very weak cannot move his legs was able to move his hands His sister is present I called case management they are checking into possibly if he could go to rehab [facility] Chart reviewed 10/03/2021 Patient seen and examined in the ICU Chart reviewed Discussed with RN Called case management We are hoping to get the patient transferred to [facility] if possible (they are evaluating his admission criteria to rehab) 10/02/2021 Patient seen and examined in the ICU He is still unable to move his legs He is able to move his hands and arms slightly but is very weak at bedside Chart reviewed Discussed with RN I called case management to see if maybe he could go to [facility] rehab sometime soon 10/01 Patient evaluated examined at bedside. Continues to improve. Continue rehab. Plan discussed with bedside RN. 09/30 Patient evaluated examined at bedside. Clinically about the same from yesterday. Continue rehab modalities. Labs stable. Plan discussed with bedside RN. 09/29 Patient evaluated at bedside. Underwent MRI this morning. Symptoms very similar to yesterday but he feels like he is regaining some function. Pain controlled. PT OT. Hemoglovin stable. 09/28 Evaluate examined at bedside. Resting in bed had no complaints to me. Said pain is quite improved. Did okay with transfusion yesterday. Continue current treatments. PT/OT. Discussed with bedside RN. Roxi 09/27 Patient evaluated examined at bedside. Was resting in bed easily awoken able to answer some questions. Some movement in his upper extremities but very limited in lower. Transfuse 1 unit today. Plan discussed with RN. Mr Terrell is a 60-year-old male w/ PMHx prediabetes, HLD, HTN and recent fall in July 2021 with cervical myelopathy and s/p cervical decompression with ACDF C5-6 07/26/2021 On 09/25/21 underwent cervical laminectomy, C3, C4, C5, C6, partial C7 with later al mass fusion C3 through C7, Posterior nstrumentation C3-C7 on the left and posterior instrumentation C-C6 on the right. On 09/26/21 returned to OR for cervical hematoma evacuation. Vitals/I&O Vitals/I&O: Vital Signs Date Time Temp Pulse Resp B/P (MAP) Pulse Ox O2 Delivery O2 Flow Rate FiO2 10/21/21 12:41 Room Air 10/21/21 11:00 98.2 74 14 123/60 (81) 94 98.2 10/21/21 08:00 2.0 I & O 10/20/21 10/20/21 10/21/21 15:00 23:00 07:00 Intake Total 420 ml 800 ml Output Total 400 ml 2100 ml Balance 20 ml -1300 ml Physical Exam General: Alert, Oriented X3, No acute distress Heart: Regular rate Lungs: Clear Abdomen: Normal bowel sounds, Soft, No tenderness Extremities: No edema, Normal pulses Skin: No rashes, Other (incision healing well) Labs Labs: Laboratory Tests Test 10/20/21 21:23 10/21/21 07:45 10/21/21 11:53 Glucose (Fingerstick) 167 mg/dL (70-99) 195 mg/dL (70-99) 148 mg/dL (70-99) Comment Review of Relevant I have reviewed the following items michelle (where applicable) has been applied. Justifications for Admission Other Justification uncontrolled diabetes SHANICE TAYLOR MD Oct 21, 2021 13:29
[2021-10-21] MEDS: ACETAMINOPHEN 325 MG TABLET. PO PRN ×2 (14:18→18:23)
[2021-10-21 15:00] VITALS: BP 131/59
[2021-10-21 19:00] VITALS: BP 110/52
--- NOTE | 2021-10-21 19:03 | PDOC ---
PROGRESS NOTES Date of Service DATE: 10/21/21 TIME: 18:59 Subjective Subjective Patient seen at 1015 POD #25 S/P Evacuation of epidural hematoma, s/p cervical laminectomy and fusion 09/25/21 pain well controlled sister at bedside Objective Objective Vital Signs Date Time Temp Pulse Resp B/P (MAP) Pulse Ox O2 Delivery O2 Flow Rate FiO2 10/21/21 15:00 98.3 75 14 131/59 (83) 96 Room Air 98.3 10/21/21 08:00 2.0 Intake and Output 10/21/21 06:59 Intake Total 1220 ml Output Total 2500 ml Balance -1280 ml Intake Oral 1220 ml Output Urine Total 2500 ml Physical Exam General: Alert, Oriented X3, Cooperative, No acute distress Neuro: Normal speech, Other (3/5 distal arms, 4/5 left shoulder, 5/5 right shoulder, trace hip adduction bilaterally and trace right hip extension) Skin: Other (incision healing well) Plan Plan of Care continue current treatments PT/ OT SCDs awaiting placement Comment Review of Relevant I have reviewed the following items michelle (where applicable) has been applied. Labs Laboratory Tests Test 10/20/21 06:21 10/20/21 21:23 10/21/21 07:45 10/21/21 11:53 Glucose (Fingerstick) 121 mg/dL (70-99) 167 mg/dL (70-99) 195 mg/dL (70-99) 148 mg/dL (70-99) Test 10/21/21 17:04 Glucose (Fingerstick) 161 mg/dL (70-99) Laboratory Tests Test 10/20/21 21:23 10/21/21 07:45 10/21/21 11:53 10/21/21 17:04 Glucose (Fingerstick) 167 mg/dL (70-99) 195 mg/dL (70-99) 148 mg/dL (70-99) 161 mg/dL (70-99) Microbiology 10/01/21 Urine Culture - Final, Complete Escherichia Coli Escherichia Coli#2 Medications Current Medications Fentanyl Citrate (Fentanyl 2ml Vial) 25 mcg PRN Q5MIN PRN IVP MILD PAIN 1-3; Start 09/25/21 at 06:00; Stop 09/25/21 at 20:00; Status DC Fentanyl Citrate (Fentanyl 2ml Vial) 50 mcg PRN Q5MIN PRN IVP MODERATE PAIN 4-6 Last administered on 09/25/21at 13:48; Start 09/25/21 at 06:00; Stop 09/25/21 at 20:00; Status DC Morphine Sulfate (Morphine Sulfate) 1 mg PRN Q10MIN PRN IVP SEVERE PAIN 7-10 Last administered on 09/25/21at 14:21; Start 09/25/21 at 06:00; Stop 09/25/21 at 20:00; Status DC Ringer's Solution 1,000 ml @ 30 mls/hr Q24H IV Last administered on 09/25/21at 12:54; Start 09/25/21 at 06:00; Stop 09/25/21 at 17:59; Status DC Hydromorphone HCl (Dilaudid) 0.5 mg PRN Q10MIN PRN IVP SEVERE PAIN 7-10, 2nd CHOICE Last administered on 09/25/21at 16:53; Start 09/25/21 at 06:00; Stop 09/25/21 at 20:00; Status DC Prochlorperazine Edisylate (Compazine) 5 mg PACU PRN PRN IVP NAUSEA, MRX1; Start 09/25/21 at 06:00; Stop 09/25/21 at 20:00; Status DC Cefazolin Sodium 1 gm/Sodium Chloride 1,000 ml @ 1,000 mls/hr 1X ONCE IRR Last administered on 09/25/21at 10:14; Start 09/25/21 at 06:00; Stop 09/25/21 at 06:59; Status DC Cefazolin Sodium/ Dextrose 50 ml @ 100 mls/hr 1X PREOP PRN IV PRIOR TO PROCEDURE Last administered on 09/25/21at 09:30; Start 09/25/21 at 06:00; Stop 09/25/21 at 13:39; Status DC Insulin Human Lispro (HumaLOG VIAL for OP,RR ONLY) 0-10 units PRN Q1HR PRN SQ PER PROTOCOL Last administered on 09/25/21at 17:01; Start 09/25/21 at 07:00; Stop 09/25/21 at 18:00; Status DC Bupivacaine HCl/ Epinephrine Bitart (Sensorcain-Epi 0.5% Kit) 30 ml STK-MED ONCE INJ Last administered on 09/25/21 10:14; Start 09/25/21 at 10:14; Stop 09/25/21 at 10:30; Status DC Ketorolac Tromethamine (Toradol Im) 60 mg STK-MED ONCE INJ Last administered on 09/25/21 10:14; Start 09/25/21 at 10:14; Stop 09/25/21 at 10:30; Status DC Thrombin 20,000 unit STK-MED ONCE TP Last administered on 09/25/21at 10:14; Start 09/25/21 at 10:14; Stop 09/25/21 at 10:30; Status DC Gelatin (Gelfoam Size 100) 1 each STK-MED ONCE TP Last administered on 09/25/21 10:14; Start 09/25/21 at 10:14; Stop 09/25/21 at 10:30; Status DC Acetaminophen (Tylenol) 650 mg PRN Q4HRS PRN PO TEMP OVER 100.4F OR MILD PAIN Last administered on 10/21/21 18:23; Start 09/25/21 at 12:30 Aspirin (Aspirin Chewable) 81 mg DAILY PO Last administered on 09/26/21 08:30; Start 09/26/21 at 09:00; Stop 09/28/21 at 17:19; Status DC Atorvastatin Calcium (Lipitor) 10 mg QHS PO Last administered on 10/20/21 21:20; Start 09/25/21 at 21:00 Baclofen (Lioresal) 10 mg BID PO Last administered on 10/16/21 08:26; Start 09/25/21 at 21:00; Stop 10/16/21 at 13:21; Status DC Diazepam (Valium) 5 mg TID PO Last administered on 10/21/21 08:15; Start 09/25/21 at 14:00 Docusate Sodium (Colace) 100 mg PRN BID PRN PO HARD STOOLS Last administered on 10/15/21 10:22; Start 09/25/21 at 12:30 Fluticasone Propionate (Flonase) 2 spray DAILY NS Last administered on 10/17/21at 12:58; Start 09/26/21 at 09:00 Hydroxyzine HCl (Atarax) 25 mg PRN Q6HRS PRN PO Itching (2ND Choice) Last administered on 10/20/21 23:07; Start 09/25/21 at 12:30 Lidocaine (Lidoderm) 1 patch QHS TP Last administered on 10/03/21 23:31; Start 09/25/21 at 20:00; Stop 10/05/21 at 01:01; Status DC Linagliptin (Tradjenta) 5 mg DAILY PO Last administered on 10/21/21 08:14; Start 09/25/21 at 13:00 Miconazole Nitrate (Monistat-Derm) 1 crispin TID TP Last administered on 10/04/21 20:08; Start 09/25/21 at 21:00; Stop 10/05/21 at 13:23; Status DC Midodrine (Proamatine) 2.5 mg PRN 1X PRN PO hypotension Last administered on 09/27/21 08:56; Start 09/25/21 at 12:30 Oxycodone HCl (Roxicodone) 10 mg PRN Q6HRS PRN PO MODERATE-SEVERE PAIN Last administered on 10/21/21 12:11; Start 09/25/21 at 12:30 Diclofenac Sodium (Voltaren) 1 crispin PRN TID PRN TP PAIN CONTROL; Start 09/25/21 at 13:15; Stop 09/25/21 at 18:37; Status DC Insulin Glargine (Lantus Syringe) 4 unit QHS SQ Last administered on 10/20/21 21:28; Start 09/25/21 at 21:00 Losartan Potassium (Cozaar) 25 mg DAILY08 PO Last administered on 10/21/21 08:14; Start 09/26/21 at 08:00 Polyethylene Glycol (miraLAX PACKET) 17 gm DAILY PO Last administered on 10/13/21 08:53; Start 09/25/21 at 14:00 Pregabalin (Lyrica) 100 mg BID PO Last administered on 10/21/21 08:15; Start 09/25/21 at 21:00 Acetaminophen (Tylenol) 650 mg PRN Q6HRS PRN PO MILD PAIN / TEMP > 100.3'F; Start 09/25/21 at 12:30; Status Cancel Al Hydroxide/Mg Hydroxide (Mylanta Plus Xs) 30 ml PRN Q3HRS PRN PO HEARTBURN / GAS; Start 09/25/21 at 12:30 Calcium Carbonate/ Glycine (Tums) 500 mg PRN Q3HRS PRN PO INDIGESTION; Start 09/25/21 at 12:30 Diphenhydramine HCl (Benadryl) 25 mg PRN Q6HRS PRN PO ITCHING (1ST CHOICE); Start 09/25/21 at 12:30 Naloxone HCl (Narcan) 0.1 mg PRN Q2MIN PRN IV SEE COMMENTS; Start 09/25/21 at 12:30 Sodium Chloride (Normal Saline Flush) 3 ml QSHIFT PRN IV AFTER MEDS AND BLOOD DRAWS; Start 09/25/21 at 12:30 Potassium Chloride/Sodium Chloride 1,000 ml @ 75 mls/hr [id number] IV Last administered on 09/26/21at 07:00; Start 09/25/21 at 12:30; Stop 09/26/21 at 17:33; Status DC Magnesium Hydroxide (Milk Of Magnesia) 2,400 mg PRN Q12HR PRN PO CONSTIPATION; Start 09/25/21 at 12:30 Cefazolin Sodium (Ancef) 1 gm Q8H IVP Last administered on 09/26/21at 04:14; Start 09/25/21 at 18:00; Stop 09/26/21 at 10:01; Status DC Fentanyl Citrate (Fentanyl 2ml Vial) 50 mcg PRN Q2HR PRN IVP MODERATE TO SEVERE PAIN Last administered on 10/05/21at 22:46; Start 09/25/21 at 12:30 Dextrose (Dextrose 50%-Water Syringe) 12.5 gm PRN Q15MIN PRN IV SEE COMMENTS; Start 09/25/21 at 12:30; Status Cancel Dextrose (Iv Dextrose 5%) 250 ml PRN Q15MIN PRN IV SEE COMMENTS; Start 09/25/21 at 12:30; Status Cancel Gelatin (Gelfoam Size 100) 1 each STK-MED ONCE .ROUTE ; Start 09/25/21 at 06:37; Stop 09/25/21 at 14:55; Status DC Bupivacaine HCl/ Epinephrine Bitart (Sensorcain-Epi 0.5% Kit) 30 ml STK-MED ONCE .ROUTE ; Start 09/25/21 at 06:37; Stop 09/25/21 at 14:55; Status DC Ketorolac Tromethamine (Toradol Im) 60 mg STK-MED ONCE .ROUTE ; Start 09/25/21 at 06:37; Stop 09/25/21 at 14:55; Status DC Thrombin 20,000 unit STK-MED ONCE TP ; Start 09/25/21 at 06:38; Stop 09/25/21 at 14:55; Status DC Propofol (Diprivan) 200 mg STK-MED ONCE IV ; Start 09/25/21 at 05:54; Stop 09/25/21 at 14:57; Status DC Lidocaine HCl (Lidocaine Pf 2% Vial) 5 ml STK-MED ONCE .ROUTE ; Start 09/25/21 at 05:54; Stop 09/25/21 at 14:57; Status DC Ondansetron HCl (Zofran) 4 mg STK-MED ONCE .ROUTE ; Start 09/25/21 at 05:54; Stop 09/25/21 at 14:57; Status DC Phenylephrine HCl (Ramone-Synephrine Inj) 10 mg STK-MED ONCE .ROUTE ; Start 09/25/21 at 05:54; Stop 09/25/21 at 14:57; Status DC Propofol 50 ml @ As Directed STK-MED ONCE IV ; Start 09/25/21 at 05:54; Stop 09/25/21 at 14:57; Status DC Dexamethasone Sodium Phosphate (Decadron) 4 mg STK-MED ONCE .ROUTE ; Start 09/25/21 at 05:54; Stop 09/25/21 at 14:57; Status DC Fentanyl Citrate (Fentanyl 2ml Vial) 100 mcg STK-MED ONCE .ROUTE ; Start 09/25/21 at 05:54; Stop 09/25/21 at 14:57; Status DC Succinylcholine Chloride (Anectine) 200 mg STK-MED ONCE .ROUTE ; Start 09/25/21 at 05:54; Stop 09/25/21 at 14:57; Status DC Remifentanil HCl (Ultiva) 1 mg STK-MED ONCE IV ; Start 09/25/21 at 05:54; Stop at 14:57; Status DC Glycopyrrolate (Robinul) 1 mg STK-MED ONCE .ROUTE ; Start 09/25/21 at 07:11; Stop 09/25/21 at 15:01; Status DC Propofol 50 ml @ As Directed STK-MED ONCE IV ; Start 09/25/21 at 08:07; Stop 09/25/21 at 15:02; Status DC Ketamine HCl (Ketamine) 50 mg STK-MED ONCE .ROUTE ; Start 09/25/21 at 08:15; Stop 09/25/21 at 15:02; Status DC Hydromorphone HCl (Dilaudid) 2 mg STK-MED ONCE .ROUTE ; Start 09/25/21 at 10:44; Stop 09/25/21 at 15:03; Status DC Fentanyl Citrate (Fentanyl 2ml Vial) 100 mcg STK-MED ONCE .ROUTE ; Start 09/25/21 at 13:26; Stop 09/25/21 at 15:04; Status DC Morphine Sulfate (Morphine Sulfate) 2 mg STK-MED ONCE .ROUTE ; Start 09/25/21 at 14:04; Stop 09/25/21 at 15:05; Status DC Hydromorphone HCl (Dilaudid) 2 mg STK-MED ONCE .ROUTE ; Start 09/25/21 at 14:54; Stop 09/25/21 at 15:06; Status DC Menthol/Methyl Salicylate (Bengay Greaseless Cream) 1 crispin PRN Q30MIN PRN TP MUSCLE PAIN Last administered on 10/02/21at 21:03; Start 09/25/21 at 18:45 Mupirocin (Bactroban) 1 crispin BID NS Last administered on 10/12/21at 21:09; Start 09/26/21 at 09:00; Stop 10/13/21 at 07:56; Status DC Dexamethasone Sodium Phosphate (Decadron) 10 mg 1X ONCE IVP Last administered on 09/26/21at 07:31; Start 09/26/21 at 07:30; Stop 09/26/21 at 07:31; Status DC Cefazolin Sodium 1 gm/Sodium Chloride 1,000 ml @ 1,000 mls/hr 1X ONCE IRR Last administered on 09/26/21at 11:52; Start 09/26/21 at 10:30; Stop 09/26/21 at 11:29; Status DC Cefazolin Sodium (Ancef) 1 gm STK-MED ONCE IVP ; Start 09/26/21 at 10:05; Stop 09/26/21 at 10:06; Status DC Lidocaine HCl (Lidocaine Pf 2% Vial) 5 ml STK-MED ONCE .ROUTE ; Start 09/26/21 at 10:18; Stop 09/26/21 at 10:18; Status DC Ondansetron HCl (Zofran) 4 mg STK-MED ONCE .ROUTE ; Start 09/26/21 at 10:18; Stop 09/26/21 at 10:18; Status DC Propofol (Diprivan) 200 mg STK-MED ONCE IV ; Start 09/26/21 at 10:18; Stop 09/26/21 at 10:19; Status DC Dexamethasone Sodium Phosphate (Decadron) 4 mg STK-MED ONCE .ROUTE ; Start 09/26/21 at 10:18; Stop 09/26/21 at 10:19; Status DC Sevoflurane (Ultane) 30 ml STK-MED ONCE IH ; Start 09/26/21 at 10:18; Stop 09/26/21 at 10:19; Status DC Fentanyl Citrate (Fentanyl 2ml Vial) 100 mcg STK-MED ONCE .ROUTE ; Start 09/26/21 at 10:19; Stop 09/26/21 at 10:19; Status DC Rocuronium [place] (Zemuron) 50 mg STK-MED ONCE .ROUTE ; Start 09/26/21 at 10:19; Stop 09/26/21 at 10:19; Status DC Insulin Human Lispro (HumaLOG VIAL for OP,RR ONLY) 0-10 units PRN Q1HR PRN SQ PER PROTOCOL Last administered on 09/26/21at 15:11; Start 09/26/21 at 10:30; Stop 09/26/21 at 18:00; Status DC Sugammadex Sodium (Bridion) 200 mg 1X ONCE IVP Last administered on 09/26/21at 10:30; Start 09/26/21 at 10:30; Stop 09/26/21 at 10:31; Status DC Gelatin (Gelfoam Size 100) 1 each STK-MED ONCE .ROUTE Last administered on 09/26/21at 11:52; Start 09/26/21 at 10:30; Stop 09/26/21 at 10:30; Status DC Bupivacaine HCl/ Epinephrine Bitart (Sensorcain-Epi 0.5% Kit) 30 ml STK-MED ONCE .ROUTE ; Start 09/26/21 at 10:30; Stop 09/26/21 at 10:30; Status DC Ketorolac Tromethamine (Toradol Im) 60 mg STK-MED ONCE .ROUTE ; Start 09/26/21 at 10:30; Stop 09/26/21 at 10:30; Status DC Thrombin 20,000 unit STK-MED ONCE TP Last administered on 09/26/21at 11:52; Start 09/26/21 at 10:30; Stop 09/26/21 at 10:31; Status DC Cefazolin Sodium/ Dextrose 50 ml @ As Directed STK-MED ONCE IV ; Start 09/26/21 at 10:32; Stop 09/26/21 at 10:32; Status DC Vancomycin HCl 1 gm/Sodium Chloride 250 ml @ 250 mls/hr PREOP PRN PRN IV PRIOR TO PROCEDURE; Start 09/26/21 at 10:45; Stop 09/26/21 at 14:00; Status DC Cefazolin Sodium/ Dextrose 50 ml @ 100 mls/hr 1X ONCE IV Last administered on 09/26/21at 11:00; Start 09/26/21 at 11:00; Stop 09/26/21 at 11:29; Status DC Dexamethasone Sodium Phosphate (Decadron) 4 mg STK-MED ONCE .ROUTE ; Start 09/26/21 at 11:04; Stop 09/26/21 at 11:04; Status DC Glycopyrrolate (Robinul) 1 mg STK-MED ONCE .ROUTE ; Start 09/26/21 at 11:04; Stop 09/26/21 at 11:04; Status DC Hydromorphone HCl (Dilaudid) 2 mg STK-MED ONCE .ROUTE ; Start 09/26/21 at 11:56; Stop 09/26/21 at 11:56; Status DC Fentanyl Citrate (Fentanyl 2ml Vial) 25 mcg PRN Q5MIN PRN IVP MILD PAIN 1-3; Start 09/26/21 at 14:30; Stop 09/26/21 at 18:15; Status DC Fentanyl Citrate (Fentanyl 2ml Vial) 50 mcg PRN Q5MIN PRN IVP MODERATE PAIN 4- 6; Start 09/26/21 at 14:30; Stop 09/26/21 at 18:15; Status DC Morphine Sulfate (Morphine Sulfate) 1 mg PRN Q10MIN PRN IVP SEVERE PAIN 7-10; Start 09/26/21 at 14:30; Stop 09/26/21 at 18:15; Status DC Ringer's Solution 1,000 ml @ 30 mls/hr Q24H IV Last administered on 09/26/21at 15:18; Start 09/26/21 at 14:30; Stop 09/26/21 at 21:00; Status DC Hydromorphone HCl (Dilaudid) 0.5 mg PRN Q10MIN PRN IVP SEVERE PAIN 7-10, 2nd CHOICE; Start 09/26/21 at 14:30; Stop 09/26/21 at 18:15; Status DC Prochlorperazine Edisylate (Compazine) 5 mg PACU PRN PRN IVP NAUSEA, MRX1; Start 09/26/21 at 14:30; Stop 09/26/21 at 21:00; Status DC Fentanyl Citrate (Fentanyl 2ml Vial) 100 mcg STK-MED ONCE .ROUTE ; Start 09/26/21 at 14:23; Stop 09/26/21 at 14:25; Status DC Fentanyl Citrate (Fentanyl 2ml Vial) 25 mcg PRN Q5MIN PRN IVP MILD PAIN 1-3; Start 09/26/21 at 14:30; Stop 09/27/21 at 14:29; Status UNV Fentanyl Citrate (Fentanyl 2ml Vial) 50 mcg PRN Q5MIN PRN IVP MODERATE PAIN 4- 6; Start 09/26/21 at 14:30; Stop 09/27/21 at 14:29; Status UNV Morphine Sulfate (Morphine Sulfate) 1 mg PRN Q10MIN PRN IVP SEVERE PAIN 7-10; Start 09/26/21 at 14:30; Stop 09/27/21 at 14:29; Status UNV Ringer's Solution 1,000 ml @ 30 mls/hr Q24H IV ; Start 09/26/21 at 14:30; Stop 09/27/21 at 02:29; Status UNV Hydromorphone HCl (Dilaudid) 0.5 mg PRN Q10MIN PRN IVP SEVERE PAIN 7-10, 2nd CHOICE; Start 09/26/21 at 14:30; Stop 09/27/21 at 14:29; Status UNV Prochlorperazine Edisylate (Compazine) 5 mg PACU PRN PRN IVP NAUSEA, MRX1; Start 09/26/21 at 14:30; Stop 09/27/21 at 14:29; Status UNV Dexamethasone Sodium Phosphate (Decadron) 4 mg Q6HRS IVP Last administered on 09/28/21at 05:06; Start 09/26/21 at 18:00; Stop 09/28/21 at 06:00; Status DC Sodium Chloride 1,000 ml @ 100 mls/hr Q10H IV Last administered on 10/05/21at 06:41; Start 09/26/21 at 17:30; Stop 10/05/21 at 13:48; Status DC Cefazolin Sodium (Ancef) 1 gm Q8HRS IVP ; Start 09/27/21 at 06:00; Stop 09/27/21 at 05:47; Status DC Vancomycin HCl 1 gm/Sodium Chloride 250 ml @ 166.667 mls/hr 1X ONCE IV Last administered on 09/27/21at 06:27; Start 09/27/21 at 06:00; Stop 09/27/21 at 07:29; Status DC Gadoterate Meglumine (Clariscan) 19 ml 1X ONCE IVP Last administered on 09/29/21at 10:32; Start 09/29/21 at 08:15; Stop 09/29/21 at 08:17; Status DC Bisacodyl (Dulcolax Supp) 10 mg PRN DAILY PRN NC CONSTIPATION; Start 09/29/21 at 14:15 Lactulose (Lactulose) 20 gm PRN DAILY PRN PO CONSTIPATION, 2nd choice Last administered on 10/01/21at 08:35; Start 09/29/21 at 14:30 Ascorbic Acid (Vitamin C) 500 mg DAILY PO Last administered on 10/21/21at 08:14; Start 10/02/21 at 10:00 Levofloxacin/ Dextrose 100 ml @ 100 mls/hr Q24H IV Last administered on 10/02/21at 12:15; Start 10/02/21 at 12:00; Stop 10/03/21 at 08:57; Status DC Levofloxacin/ Dextrose 50 ml @ 50 mls/hr Q24H IV Last administered on 10/06/21at 15:19; Start 10/03/21 at 12:00; Stop 10/06/21 at 23:00; Status DC Lactobacillus Rhamnosus (Culturelle) 1 cap BID PO Last administered on 10/21/21at 08:14; Start 10/03/21 at 21:00 Lidocaine (Lidoderm) 1 patch QHS TP Last administered on 10/20/21at 21:21; Start 10/04/21 at 22:00 Levofloxacin (Levaquin) 250 mg DAILY06 PO Last administered on 10/11/21at 06:13; Start 10/07/21 at 06:00; Stop 10/11/21 at 12:00; Status DC Insulin Human Lispro (HumaLOG) 0-5 UNITS TIDWMEALS SQ Last administered on 10/18/21at 12:16; Start 10/12/21 at 08:00; Stop 10/19/21 at 15:15; Status DC Dextrose (Dextrose 50%-Water Syringe) 12.5 gm PRN Q15MIN PRN IV SEE COMMENTS; Start 10/11/21 at 19:00 Dextrose (Iv Dextrose 5%) 250 ml PRN Q15MIN PRN IV SEE COMMENTS; Start 10/11/21 at 19:00 Potassium Chloride (Klor-Con) 40 meq 1X ONCE PO Last administered on 10/15/21at 10:21; Start 10/15/21 at 10:30; Stop 10/15/21 at 10:31; Status DC Magnesium Sulfate 50 ml @ 25 mls/hr 1X ONCE IV Last administered on 10/15/21at 10:20; Start 10/15/21 at 10:30; Stop 10/15/21 at 12:29; Status DC Baclofen (Lioresal) 10 mg Q8HRS PO Last administered on 10/17/21at 06:02; Start 10/16/21 at 22:00; Stop 10/17/21 at 11:58; Status DC Baclofen (Lioresal) 10 mg Q6HRS PO Last administered on 10/21/21at 18:20; Start 10/17/21 at 12:00 Triamcinolone Acetonide (Kenalog-40) 40 mg 1X ONCE IM Last administered on 10/17/21at 12:15; Start 10/17/21 at 12:15; Stop 10/17/21 at 12:16; Status DC Bupivacaine HCl (Sensorcaine-Mpf 0.25%) 10 ml 1X ONCE IJ Last administered on 10/17/21at 12:00; Start 10/17/21 at 12:00; Stop 10/17/21 at 12:01; Status DC Magnesium Sulfate 100 ml @ 25 mls/hr 1X ONCE IV Last administered on 10/18/21at 14:11; Start 10/18/21 at 14:30; Stop 10/18/21 at 18:29; Status DC Vitamin B Complex (Folbic Tablet) 1 tab DAILY PO Last administered on 10/21/21at 08:14; Start 10/18/21 at 14:30 Non-Formulary Medication (L-Carnitine 500 Mg Capsule) 1 ea DAILY PO Last administered on 10/20/21at 08:54; Start 10/19/21 at 13:00 Insulin Human Lispro (HumaLOG) 0-5 UNITS PRN BFRMEAL PRN SQ SEE ADMIN INSTRUCTIONS Last administered on 10/21/21at 17:33; Start 10/19/21 at 15:15 Active Scripts Active Dok (Docusate Sodium) 100 Mg Capsule 100 Mg PO PRN BID PRN 30 Days Tylenol (Acetaminophen) 325 Mg Tablet 650 Mg PO PRN Q4HRS PRN 30 Days Valium (Diazepam) 5 Mg Tablet 5 Mg PO TID Atorvastatin Calcium 10 Mg Tablet 10 Mg PO QHS Reported Midodrine Hcl 2.5 Mg Tablet 2.5 Mg PO PRN 1X PRN Aspirin 81 Mg Tab.chew 81 Mg PO DAILY Baclofen 10 Mg Tablet 10 Mg PO BID Lyrica (Pregabalin) 100 Mg Capsule 100 Mg PO BID 30 Days Polyethylene Glycol 3350 2,500 Gm Powder 17 Gm PO DAILY 30 Days Micatin (Miconazole Nitrate) 14 Gm Cream..g. 1 [place] TP TID Tradjenta (Linagliptin) 5 Mg Tablet 5 Mg PO DAILY Lidocaine PATCH (Lidocaine) 1 Each Adh..patch 1 Each TP DAILY REMOVE AFTER 12 HOURS Levemir (Insulin Detemir) 100 Unit/1 Ml Vial 4 Unit SQ HS Hydroxyzine Hcl 25 Mg Tablet 25 Mg PO PRN Q6HRS PRN Fluticasone Propionate Nasal Vadito (Fluticasone Propionate) 16 Gm Vadito.susp 2 [place] NS DAILY Diclofenac Sodium 100 Gm Gel..gram. 100 Gm TP PRN TID PRN Losartan Potassium 100 Mg Tablet 25 Tab PO DAILY08 Vitals/I & O Vital Sign - Last 24 Hours 10/20/21 10/20/21 10/20/21 10/20/21 19:00 19:40 21:36 22:06 Temp 98.2 98.2 Pulse 80 Resp 20 20 20 B/P (MAP) 128/64 (85) Pulse Ox 93 O2 Delivery Room Air Room Air Room Air Room Air 10/20/21 10/21/21 10/21/21 10/21/21 23:00 03:00 03:35 04:05 Temp 97.9 98.5 97.9 98.5 Pulse 67 62 Resp 14 14 20 20 B/P (MAP) 115/59 (77) 102/47 (65) Pulse Ox 96 100 O2 Delivery Room Air Room Air Room Air Room Air 10/21/21 10/21/21 10/21/21 10/21/21 07:00 08:00 08:14 11:00 Temp 98.3 98.2 98.3 98.2 Pulse 75 75 74 Resp 14 14 B/P (MAP) 122/47 (72) 122/47 123/60 (81) Pulse Ox 95 94 O2 Delivery Room Air Nasal Cannula Room Air O2 Flow Rate 2.0 10/21/21 10/21/21 10/21/21 12:11 12:41 15:00 Temp 98.3 98.3 Pulse 75 Resp 14 B/P (MAP) 131/59 (83) Pulse Ox 96 O2 Delivery Room Air Room Air Room Air Intake and Output 10/20/21 10/20/21 10/21/21 14:59 22:59 06:59 Intake Total 420 ml 800 ml Output Total 400 ml 2100 ml Balance 20 ml -1300 ml Justifications for Admission Other Justification uncontrolled diabetes KELLEN BRUNO MD Oct 21, 2021 19:03
[2021-10-21] MEDS: ATORVASTATIN CALCIUM 10 MG TABLET. PO SCH (20:44)
[2021-10-21] MEDS: LIDOCAINE (700MG/PATCH) PATCH. TP SCH (20:47)
[2021-10-21] MEDS: INSULIN GLARGINE SYRINGE. SQ SCH (20:52)
[2021-10-21 23:25] VITALS: BP 103/56
[2021-10-22] MEDS: oxyCODONE IR 5 MG TABLET PO PRN ×5 (02:44→21:17)
[2021-10-22 03:00] VITALS: BP 104/43
[2021-10-22] MEDS: diazePAM 5 MG TABLET PO SCH ×3 (04:02→12:35)
[2021-10-22] MEDS: hydrOXYzine 25 MG TABLET PO PRN ×2 (04:58→23:07)
[2021-10-22] MEDS: BACLOFEN 10 MG TABLET. PO SCH ×4 (06:00→16:59)
[2021-10-22 07:00] VITALS: BP 117/49
[2021-10-22] MEDS: FLUTICASONE 50MCG/NASAL SPRAY 16GM BOTTLE. NS SCH (07:48)
[2021-10-22] MEDS: CARNITINE 500 MG PO SCH (07:48)
[2021-10-22] MEDS: POLYETHYLENE GLYCOL 3350 17 GM PACKET. PO SCH (07:49)
[2021-10-22] MEDS: VITAMIN B12,B9,B6 COMPLEX 1 TABLET. PO SCH (08:33)
[2021-10-22] MEDS: LINAGLIPTIN 5 MG TABLET PO SCH (08:34)
[2021-10-22] MEDS: ASCORBIC ACID 500 MG TABLET PO SCH (08:34)
[2021-10-22] MEDS: LOSARTAN POTASSIUM 25 MG TABLET. PO SCH (08:34)
[2021-10-22] MEDS: LACTOBACILLUS RHAMNOSUS GG 1 CAPSULE. PO SCH ×2 (08:34→21:16)
[2021-10-22] MEDS: PREGABALIN 50 MG CAPSULE PO SCH ×2 (08:34→21:16)
--- NOTE | 2021-10-22 09:56 | PDOC ---
[employer] PROGRESS NOTE Date of Service DOS: DATE: 10/22/21 TIME: 09:56 Chief Complaint Chief Complaint Cervical spinal cord injury - Concern for C5 cord edema, cord compression, a right lateral C5 fracture, and concern for numerous ligamentous injuries. 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 S/p decompression 07/26/2021 and repeat surgeries 09/25 and 09/26 Diabetes - sliding scale plus basal HTN - prn hydralazine HLD - statin when taking PO Cervical laminectomy as per above, diabetes, hypertension, hyperlipidemia, arthritis, GERD, left knee arthroplasty and TIA S/p; IVC filter FEN - ADAT PPX - SCDs FULL CODE Dispo - Inpatient History of Present Illness History of Present Illness 10/22/2021 Patient seen and examined bedside. No complaints today. 10/21/2021 No acute events overnight. Patient seen examined bedside. Still working with PT OT and pending neuro rehab placement. Insurance issues still pending. Complaining of weakness is about the same and having pain in his extremities that have somewhat improved. 3 [phone] No acute events overnight. Patient seen examined bedside. Injection received in right shoulder with Dr. JURADO. Patient tolerated procedure well. Spasms have improved. Pending placement to neuro rehab as a possibility. Patient's chart, labs, images were reviewed and discussed with RN 10/19/2021 No acute events overnight. Patient seen examined bedside. Spasms have improved and pain overall has improved after adjustment with baclofen. Continuing with rehab modalities. Patient's chart, labs, images were reviewed and discussed with RN 10/18: Right shoulder radiograph with some degenerative changes. Had some spasming this morning, but feeling better currently. Mag 1.6. Discussed addition of B6, 9, 12 and needs for complex neuro rehab. 10/17/2021 No acute events overnight. Patient seen examined bedside. Still complaining of muscle spasms. Baclofen has been increased. He is already on Valium and Lyrica. Considering neurology consult for evaluation. Pending right shoulder x-ray. Patient's chart, labs, images were reviewed and discussed with RN 10/16: Seen in ICU notes spasming started again last night this happened about 6 times even when he tries to reach up and scratch his eyelid. Having some more pain in his right biceps and left Achilles area. 10/15: Seen bedside in ICU getting bed bath. Says his spasming is improved today having a little bit of shortness of breath but no cough. No chest pain. 10/14: Seen bedside in ICU. Still with spasming upon awakening in his hands and feet still with some weakness in his left foot. Poor appetite. 10/13: Patient seen and examined. Discussed with neurosurgery nurse practitioner Roberta 10/12: Patient seen and examined 10/11: Patient seen and examined. His discharge was held again as he was not accepted at [facility] 10/09: His sister is here as well discussed with her. Plan is to get the patient to [facility] snf if they accept him 10/08: Patient seen and examined. He is moving his toes more each day 10/07: Patient seen and examined in the ICU (he is actually in overfull patient). He is working with his nurse to try to use his nurse button and remote control. Started to move his toes a little bit 10/06/2021 Patient seen and examined in the ICU I discussed the case with his sister again I also discussed the case with case management [facility] all now that he is improved over the past 3 days 10/05/2021 Patient seen and examined in the ICU His nurses are starting to get ready to clean him up His sister is present Discussed with RN Discussed with case management [facility] if it can be arranged 10/04/2021 Patient seen and examined again in the ICU He remains very weak cannot move his legs was able to move his hands His sister is present I called case management they are checking into possibly if he could go to rehab [facility] Chart reviewed 10/03/2021 Patient seen and examined in the ICU Chart reviewed Discussed with RN Called case management We are hoping to get the patient transferred to [facility] rehab if possible (they are evaluating his admission criteria to rehab) 10/02/2021 Patient seen and examined in the ICU He is still unable to move his legs He is able to move his hands and arms slightly but is very weak at bedside Chart reviewed Discussed with RN I called case management to see if maybe he could go to [facility] rehab sometime soon 10/01 Patient evaluated examined at bedside. Continues to improve. Continue rehab. Plan discussed with bedside RN. 09/30 Patient evaluated examined at bedside. Clinically about the same from yesterday. Continue rehab modalities. Labs stable. Plan discussed with bedside RN. 09/29 Patient evaluated at bedside. Underwent MRI this morning. Symptoms very similar to yesterday but he feels like he is regaining some function. Pain controlled. PT OT. Hemoglovin stable. 09/28 Evaluate examined at bedside. Resting in bed had no complaints to me. Said pain is quite improved. Did okay with transfusion yesterday. Continue current treatments. PT/OT. Discussed with bedside RN. Roxi 09/27 Patient evaluated examined at bedside. Was resting in bed easily awoken able to answer some questions. Some movement in his upper extremities but very limited in lower. Transfuse 1 unit today. Plan discussed with RN. Mr Terrell is a 60-year-old male w/ PMHx prediabetes, HLD, HTN and recent fall in July 2021 with cervical myelopathy and s/p cervical decompression with ACDF C5-6 07/26/2021 On 09/25/21 underwent cervical laminectomy, C3, C4, C5, C6, partial C7 with lateral mass fusion C3 through C7, Posterior nstrumentation C3-C7 on the left and posterior instrumentation C-C6 on the right. On 09/26/21 returned to OR for cervical hematoma evacuation. Vitals/I&O Vitals/I&O: Vital Signs Date Time Temp Pulse Resp B/P (MAP) Pulse Ox O2 Delivery O2 Flow Rate FiO2 10/22/21 08:35 Room Air 10/22/21 08:34 58 117/49 10/22/21 07:00 97.5 21 95 97.5 10/21/21 08:00 2.0 I & O 10/21/21 10/21/21 10/22/21 15:00 23:00 07:00 Intake Total 200 ml Output Total 1250 ml 300 ml Balance -1250 ml -100 ml Physical Exam General: Alert, Oriented X3, Cooperative, No acute distress Heart: Regular rate Lungs: Clear Abdomen: Normal bowel sounds, Soft, No tenderness Extremities: No edema, Normal pulses Skin: Other (incision healing well) Labs Labs: Laboratory Tests Test 10/21/21 11:53 10/21/21 17:04 10/22/21 07:15 Glucose (Fingerstick) 148 mg/dL (70-99) 161 mg/dL (70-99) 153 mg/dL (70-99) Comment Review of Relevant I have reviewed the following items michelle (where applicable) has been applied. Justifications for Admission Other Justification uncontrolled diabetes SHANICE TAYLOR MD Oct 22, 2021 09:56
[2021-10-22 11:00] VITALS: BP 146/66
--- NOTE | 2021-10-22 11:00 | PDOC ---
PROGRESS NOTES Date of Service DATE: 10/22/21 TIME: 10:58 Subjective Subjective He had rough not not getting medicine at proper time last night. 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 Plan Plan of Care To continue present rehab efforts while waiting for placement. Comment Review of Relevant I have reviewed the following items michelle (where applicable) has been applied. Labs Laboratory Tests Test 10/20/21 21:23 10/21/21 07:45 10/21/21 11:53 10/21/21 17:04 Glucose (Fingerstick) 167 mg/dL (70-99) 195 mg/dL (70-99) 148 mg/dL (70-99) 161 mg/dL (70-99) Test 10/22/21 07:15 Glucose (Fingerstick) 153 mg/dL (70-99) Laboratory Tests Test 10/21/21 11:53 10/21/21 17:04 10/22/21 07:15 Glucose (Fingerstick) 148 mg/dL (70-99) 161 mg/dL (70-99) 153 mg/dL (70-99) Microbiology 10/01/21 Urine Culture - Final, Complete Escherichia Coli Escherichia Coli#2 Medications Current Medications Fentanyl Citrate (Fentanyl 2ml Vial) 25 mcg PRN Q5MIN PRN IVP MILD PAIN 1-3; Start 09/25/21 at 06:00; Stop 09/25/21 at 20:00; Status DC Fentanyl Citrate (Fentanyl 2ml Vial) 50 mcg PRN Q5MIN PRN IVP MODERATE PAIN 4-6 Last administered on 09/25/21at 13:48; Start 09/25/21 at 06:00; Stop 09/25/21 at 20:00; Status DC Morphine Sulfate (Morphine Sulfate) 1 mg PRN Q10MIN PRN IVP SEVERE PAIN 7-10 Last administered on 09/25/21at 14:21; Start 09/25/21 at 06:00; Stop 09/25/21 at 20:00; Status DC Ringer's Solution 1,000 ml @ 30 mls/hr Q24H IV Last administered on 09/25/21at 12:54; Start 09/25/21 at 06:00; Stop 09/25/21 at 17:59; Status DC Hydromorphone HCl (Dilaudid) 0.5 mg PRN Q10MIN PRN IVP SEVERE PAIN 7-10, 2nd CHOICE Last administered on 09/25/21at 16:53; Start 09/25/21 at 06:00; Stop 09/25/21 at 20:00; Status DC Prochlorperazine Edisylate (Compazine) 5 mg PACU PRN PRN IVP NAUSEA, MRX1; Start 09/25/21 at 06:00; Stop 09/25/21 at 20:00; Status DC Cefazolin Sodium 1 gm/Sodium Chloride 1,000 ml @ 1,000 mls/hr 1X ONCE IRR Last administered on 09/25/21at 10:14; Start 09/25/21 at 06:00; Stop 09/25/21 at 06:59; Status DC Cefazolin Sodium/ Dextrose 50 ml @ 100 mls/hr 1X PREOP PRN IV PRIOR TO PROCEDU RE Last administered on 09/25/21at 09:30; Start 09/25/21 at 06:00; Stop 09/25/21 at 13:39; Status DC Insulin Human Lispro (HumaLOG VIAL for OP,RR ONLY) 0-10 units PRN Q1HR PRN SQ PER PROTOCOL Last administered on 09/25/21at 17:01; Start 09/25/21 at 07:00; Stop 09/25/21 at 18:00; Status DC Bupivacaine HCl/ Epinephrine Bitart (Sensorcain-Epi 0.5% Kit) 30 ml STK-MED ONCE INJ Last administered on 09/25/21at 10:14; Start 09/25/21 at 10:14; Stop 09/25/21 at 10:30; Status DC Ketorolac Tromethamine (Toradol Im) 60 mg STK-MED ONCE INJ Last administered on 09/25/21 10:14; Start 09/25/21 at 10:14; Stop 09/25/21 at 10:30; Status DC Thrombin 20,000 unit STK-MED ONCE TP Last administered on 09/25/21 10:14; Start 09/25/21 at 10:14; Stop 09/25/21 at 10:30; Status DC Gelatin (Gelfoam Size 100) 1 each STK-MED ONCE TP Last administered on 09/25/21 10:14; Start 09/25/21 at 10:14; Stop 09/25/21 at 10:30; Status DC Acetaminophen (Tylenol) 650 mg PRN Q4HRS PRN PO TEMP OVER 100.4F OR MILD PAIN Last administered on 10/21/21 18:23; Start 09/25/21 at 12:30 Aspirin (Aspirin Chewable) 81 mg DAILY PO Last administered on 09/26/21 08:30; Start 09/26/21 at 09:00; Stop 09/28/21 at 17:19; Status DC Atorvastatin Calcium (Lipitor) 10 mg QHS PO Last administered on 10/21/21 20:44; Start 09/25/21 at 21:00 Baclofen (Lioresal) 10 mg BID PO Last administered on 10/16/21 08:26; Start 09/25/21 at 21:00; Stop 10/16/21 at 13:21; Status DC Diazepam (Valium) 5 mg TID PO Last administered on 10/22/21 08:34; Start 09/25/21 at 14:00 Docusate Sodium (Colace) 100 mg PRN BID PRN PO HARD STOOLS Last administered on 10/15/21 10:22; Start 09/25/21 at 12:30 Fluticasone Propionate (Flonase) 2 spray DAILY NS Last administered on 10/17/21 12:58; Start 09/26/21 at 09:00 Hydroxyzine HCl (Atarax) 25 mg PRN Q6HRS PRN PO Itching (2ND Choice) Last administered on 10/22/21 04:58; Start 09/25/21 at 12:30 Lidocaine (Lidoderm) 1 patch QHS TP Last administered on 10/03/21at 23:31; Start 09/25/21 at 20:00; Stop 10/05/21 at 01:01; Status DC Linagliptin (Tradjenta) 5 mg DAILY PO Last administered on 10/22/21at 08:34; Start 09/25/21 at 13:00 Miconazole Nitrate (Monistat-Derm) 1 crispin TID TP Last administered on 10/04/21at 20:08; Start 09/25/21 at 21:00; Stop 10/05/21 at 13:23; Status DC Midodrine (Proamatine) 2.5 mg PRN 1X PRN PO hypotension Last administered on 09/27/21at 08:56; Start 09/25/21 at 12:30 Oxycodone HCl (Roxicodone) 10 mg PRN Q6HRS PRN PO MODERATE-SEVERE PAIN Last administered on 10/22/21at 08:35; Start 09/25/21 at 12:30 Diclofenac Sodium (Voltaren) 1 crispin PRN TID PRN TP PAIN CONTROL; Start 09/25/21 at 13:15; Stop 09/25/21 at 18:37; Status DC Insulin Glargine (Lantus Syringe) 4 unit QHS SQ Last administered on 10/21/21at 20:52; Start 09/25/21 at 21:00 Losartan Potassium (Cozaar) 25 mg DAILY08 PO Last administered on 10/22/21at 08:34; Start 09/26/21 at 08:00 Polyethylene Glycol (miraLAX PACKET) 17 gm DAILY PO Last administered on 10/13/21at 08:53; Start 09/25/21 at 14:00 Pregabalin (Lyrica) 100 mg BID PO Last administered on 10/22/21at 08:34; Start 09/25/21 at 21:00 Acetaminophen (Tylenol) 650 mg PRN Q6HRS PRN PO MILD PAIN / TEMP > 100.3'F; Start 09/25/21 at 12:30; Status Cancel Al Hydroxide/Mg Hydroxide (Mylanta Plus Xs) 30 ml PRN Q3HRS PRN PO HEARTBURN / GAS; Start 09/25/21 at 12:30 Calcium Carbonate/ Glycine (Tums) 500 mg PRN Q3HRS PRN PO INDIGESTION; Start 09/25/21 at 12:30 Diphenhydramine HCl (Benadryl) 25 mg PRN Q6HRS PRN PO ITCHING (1ST CHOICE); Start 09/25/21 at 12:30 Naloxone HCl (Narcan) 0.1 mg PRN Q2MIN PRN IV SEE COMMENTS; Start 09/25/21 at 12:30 Sodium Chloride (Normal Saline Flush) 3 ml QSHIFT PRN IV AFTER MEDS AND BLOOD DRAWS; Start 09/25/21 at 12:30 Potassium Chloride/Sodium Chloride 1,000 ml @ 75 mls/hr [id number] IV Last administered on 09/26/21at 07:00; Start 09/25/21 at 12:30; Stop 09/26/21 at 17:33; Status DC Magnesium Hydroxide (Milk Of Magnesia) 2,400 mg PRN Q12HR PRN PO CONSTIPATION; Start 09/25/21 at 12:30 Cefazolin Sodium (Ancef) 1 gm Q8H IVP Last administered on 09/26/21at 04:14; Start 09/25/21 at 18:00; Stop 09/26/21 at 10:01; Status DC Fentanyl Citrate (Fentanyl 2ml Vial) 50 mcg PRN Q2HR PRN IVP MODERATE TO SEVERE PAIN Last administered on 10/05/21at 22:46; Start 09/25/21 at 12:30 Dextrose (Dextrose 50%-Water Syringe) 12.5 gm PRN Q15MIN PRN IV SEE COMMENTS; Start 09/25/21 at 12:30; Status Cancel Dextrose (Iv Dextrose 5%) 250 ml PRN Q15MIN PRN IV SEE COMMENTS; Start 09/25/21 at 12:30; Status Cancel Gelatin (Gelfoam Size 100) 1 each STK-MED ONCE .ROUTE ; Start 09/25/21 at 06:37; Stop 09/25/21 at 14:55; Status DC Bupivacaine HCl/ Epinephrine Bitart (Sensorcain-Epi 0.5% Kit) 30 ml STK-MED ONCE .ROUTE ; Start 09/25/21 at 06:37; Stop 09/25/21 at 14:55; Status DC Ketorolac Tromethamine (Toradol Im) 60 mg STK-MED ONCE .ROUTE ; Start 09/25/21 at 06:37; Stop 09/25/21 at 14:55; Status DC Thrombin 20,000 unit STK-MED ONCE TP ; Start 09/25/21 at 06:38; Stop 09/25/21 at 14:55; Status DC Propofol (Diprivan) 200 mg STK-MED ONCE IV ; Start 09/25/21 at 05:54; Stop 09/25/21 at 14:57; Status DC Lidocaine HCl (Lidocaine Pf 2% Vial) 5 ml STK-MED ONCE .ROUTE ; Start 09/25/21 at 05:54; Stop 09/25/21 at 14:57; Status DC Ondansetron HCl (Zofran) 4 mg STK-MED ONCE .ROUTE ; Start 09/25/21 at 05:54; Stop 09/25/21 at 14:57; Status DC Phenylephrine HCl (Ramone-Synephrine Inj) 10 mg STK-MED ONCE .ROUTE ; Start 09/25/21 at 05:54; Stop 09/25/21 at 14:57; Status DC Propofol 50 ml @ As Directed STK-MED ONCE IV ; Start 09/25/21 at 05:54; Stop 09/25/21 at 14:57; Status DC Dexamethasone Sodium Phosphate (Decadron) 4 mg STK-MED ONCE .ROUTE ; Start 09/25/21 at 05:54; Stop 09/25/21 at 14:57; Status DC Fentanyl Citrate (Fentanyl 2ml Vial) 100 mcg STK-MED ONCE .ROUTE ; Start 09/25/21 at 05:54; Stop 09/25/21 at 14:57; Status DC Succinylcholine Chloride (Anectine) 200 mg STK-MED ONCE .ROUTE ; Start 09/25/21 at 05:54; Stop 09/25/21 at 14:57; Status DC Remifentanil HCl (Ultiva) 1 mg STK-MED ONCE IV ; Start 09/25/21 at 05:54; Stop 09/25/21 at 14:57; Status DC Glycopyrrolate (Robinul) 1 mg STK-MED ONCE .ROUTE ; Start 09/25/21 at 07:11; Stop 09/25/21 at 15:01; Status DC Propofol 50 ml @ As Directed STK-MED ONCE IV ; Start 09/25/21 at 08:07; Stop 09/25/21 at 15:02; Status DC Ketamine HCl (Ketamine) 50 mg STK-MED ONCE .ROUTE ; Start 09/25/21 at 08:15; Stop 09/25/21 at 15:02; Status DC Hydromorphone HCl (Dilaudid) 2 mg STK-MED ONCE .ROUTE ; Start 09/25/21 at 10:44; Stop 09/25/21 at 15:03; Status DC Fentanyl Citrate (Fentanyl 2ml Vial) 100 mcg STK-MED ONCE .ROUTE ; Start 09/25/21 at 13:26; Stop 09/25/21 at 15:04; Status DC Morphine Sulfate (Morphine Sulfate) 2 mg STK-MED ONCE .ROUTE ; Start 09/25/21 at 14:04; Stop 09/25/21 at 15:05; Status DC Hydromorphone HCl (Dilaudid) 2 mg STK-MED ONCE .ROUTE ; Start 09/25/21 at 14:54; Stop 09/25/21 at 15:06; Status DC Menthol/Methyl Salicylate (B[place] Greaseless Cream) 1 crispin PRN Q30MIN PRN TP MUSCLE PAIN Last administered on 10/02/21at 21:03; Start 09/25/21 at 18:45 Mupirocin (Bactroban) 1 crispin BID NS Last administered on 10/12/21at 21:09; Start 09/26/21 at 09:00; Stop 10/13/21 at 07:56; Status DC Dexamethasone Sodium Phosphate (Decadron) 10 mg 1X ONCE IVP Last administered on 09/26/21at 07:31; Start 09/26/21 at 07:30; Stop 09/26/21 at 07:31; Status DC Cefazolin Sodium 1 gm/Sodium Chloride 1,000 ml @ 1,000 mls/hr 1X ONCE IRR Last administered on 09/26/21at 11:52; Start 09/26/21 at 10:30; Stop 09/26/21 at 11:29; Status DC Cefazolin Sodium (Ancef) 1 gm STK-MED ONCE IVP ; Start 09/26/21 at 10:05; Stop 09/26/21 at 10:06; Status DC Lidocaine HCl (Lidocaine Pf 2% Vial) 5 ml STK-MED ONCE .ROUTE ; Start 09/26/21 at 10:18; Stop 09/26/21 at 10:18; Status DC Ondansetron HCl (Zofran) 4 mg STK-MED ONCE .ROUTE ; Start 09/26/21 at 10:18; Stop 09/26/21 at 10:18; Status DC Propofol (Diprivan) 200 mg STK-MED ONCE IV ; Start 09/26/21 at 10:18; Stop 09/26/21 at 10:19; Status DC Dexamethasone Sodium Phosphate (Decadron) 4 mg STK-MED ONCE .ROUTE ; Start 09/26/21 at 10:18; Stop 09/26/21 at 10:19; Status DC Sevoflurane (Ultane) 30 ml STK-MED ONCE IH ; Start 09/26/21 at 10:18; Stop 09/26/21 at 10:19; Status DC Fentanyl Citrate (Fentanyl 2ml Vial) 100 mcg STK-MED ONCE .ROUTE ; Start 09/26/21 at 10:19; Stop 09/26/21 at 10:19; Status DC Rocuronium Monarch (Zemuron) 50 mg STK-MED ONCE .ROUTE ; Start 09/26/21 at 10:19; Stop 09/26/21 at 10:19; Status DC Insulin Human Lispro (HumaLOG VIAL for OP,RR ONLY) 0-10 units PRN Q1HR PRN SQ PER PROTOCOL Last administered on 09/26/21at 15:11; Start 09/26/21 at 10:30; Stop 09/26/21 at 18:00; Status DC Sugammadex Sodium (Bridion) 200 mg 1X ONCE IVP Last administered on 09/26/21at 10:30; Start 09/26/21 at 10:30; Stop 09/26/21 at 10:31; Status DC Gelatin (Gelfoam Size 100) 1 each STK-MED ONCE .ROUTE Last administered on 09/26/21at 11:52; Start 09/26/21 at 10:30; Stop 09/26/21 at 10:30; Status DC Bupivacaine HCl/ Epinephrine Bitart (Sensorcain-Epi 0.5% Kit) 30 ml STK-MED ONCE .ROUTE ; Start 09/26/21 at 10:30; Stop 09/26/21 at 10:30; Status DC Ketorolac Tromethamine (Toradol Im) 60 mg STK-MED ONCE .ROUTE ; Start 09/26/21 at 10:30; Stop 09/26/21 at 10:30; Status DC Thrombin 20,000 unit STK-MED ONCE TP Last administered on 09/26/21at 11:52; Start 09/26/21 at 10:30; Stop 09/26/21 at 10:31; Status DC Cefazolin Sodium/ Dextrose 50 ml @ As Directed STK-MED ONCE IV ; Start 09/26/21 at 10:32; Stop 09/26/21 at 10:32; Status DC Vancomycin HCl 1 gm/Sodium Chloride 250 ml @ 250 mls/hr PREOP PRN PRN IV PRIOR TO PROCEDURE; Start 09/26/21 at 10:45; Stop 09/26/21 at 14:00; Status DC Cefazolin Sodium/ Dextrose 50 ml @ 100 mls/hr 1X ONCE IV Last administered on 09/26/21at 11:00; Start 09/26/21 at 11:00; Stop 09/26/21 at 11:29; Status DC Dexamethasone Sodium Phosphate (Decadron) 4 mg STK-MED ONCE .ROUTE ; Start 09/26/21 at 11:04; Stop 09/26/21 at 11:04; Status DC Glycopyrrolate (Robinul) 1 mg STK-MED ONCE .ROUTE ; Start 09/26/21 at 11:04; Stop 09/26/21 at 11:04; Status DC Hydromorphone HCl (Dilaudid) 2 mg STK-MED ONCE .ROUTE ; Start 09/26/21 at 11:56; Stop 09/26/21 at 11:56; Status DC Fentanyl Citrate (Fentanyl 2ml Vial) 25 mcg PRN Q5MIN PRN IVP MILD PAIN 1-3; Start 09/26/21 at 14:30; Stop 09/26/21 at 18:15; Status DC Fentanyl Citrate (Fentanyl 2ml Vial) 50 mcg PRN Q5MIN PRN IVP MODERATE PAIN 4- 6; Start 09/26/21 at 14:30; Stop 09/26/21 at 18:15; Status DC Morphine Sulfate (Morphine Sulfate) 1 mg PRN Q10MIN PRN IVP SEVERE PAIN 7-10; Start 09/26/21 at 14:30; Stop 09/26/21 at 18:15; Status DC Ringer's Solution 1,000 ml @ 30 mls/hr Q24H IV Last administered on 09/26/21at 15:18; Start 09/26/21 at 14:30; Stop 09/26/21 at 21:00; Status DC Hydromorphone HCl (Dilaudid) 0.5 mg PRN Q10MIN PRN IVP SEVERE PAIN 7-10, 2nd CHOICE; Start 09/26/21 at 14:30; Stop 09/26/21 at 18:15; Status DC Prochlorperazine Edisylate (Compazine) 5 mg PACU PRN PRN IVP NAUSEA, MRX1; Start 09/26/21 at 14:30; Stop 09/26/21 at 21:00; Status DC Fentanyl Citrate (Fentanyl 2ml Vial) 100 mcg STK-MED ONCE .ROUTE ; Start 09/26/21 at 14:23; Stop 09/26/21 at 14:25; Status DC Fentanyl Citrate (Fentanyl 2ml Vial) 25 mcg PRN Q5MIN PRN IVP MILD PAIN 1-3; Start 09/26/21 at 14:30; Stop 09/27/21 at 14:29; Status UNV Fentanyl Citrate (Fentanyl 2ml Vial) 50 mcg PRN Q5MIN PRN IVP MODERATE PAIN 4- 6; Start 09/26/21 at 14:30; Stop 09/27/21 at 14:29; Status UNV Morphine Sulfate (Morphine Sulfate) 1 mg PRN Q10MIN PRN IVP SEVERE PAIN 7-10; Start 09/26/21 at 14:30; Stop 09/27/21 at 14:29; Status UNV Ringer's Solution 1,000 ml @ 30 mls/hr Q24H IV ; Start 09/26/21 at 14:30; Stop 09/27/21 at 02:29; Status UNV Hydromorphone HCl (Dilaudid) 0.5 mg PRN Q10MIN PRN IVP SEVERE PAIN 7-10, 2nd CHOICE; Start 09/26/21 at 14:30; Stop 09/27/21 at 14:29; Status UNV Prochlorperazine Edisylate (Compazine) 5 mg PACU PRN PRN IVP NAUSEA, MRX1; Start 09/26/21 at 14:30; Stop 09/27/21 at 14:29; Status UNV Dexamethasone Sodium Phosphate (Decadron) 4 mg Q6HRS IVP Last administered on 09/28/21at 05:06; Start 09/26/21 at 18:00; Stop 09/28/21 at 06:00; Status DC Sodium Chloride 1,000 ml @ 100 mls/hr Q10H IV Last administered on 10/05/21at 06:41; Start 09/26/21 at 17:30; Stop 10/05/21 at 13:48; Status DC Cefazolin Sodium (Ancef) 1 gm Q8HRS IVP ; Start 09/27/21 at 06:00; Stop 09/27/21 at 05:47; Status DC Vancomycin HCl 1 gm/Sodium Chloride 250 ml @ 166.667 mls/hr 1X ONCE IV Last administered on 09/27/21at 06:27; Start 09/27/21 at 06:00; Stop 09/27/21 at 07:29; Status DC Gadoterate Meglumine (Clariscan) 19 ml 1X ONCE IVP Last administered on 09/29/21at 10:32; Start 09/29/21 at 08:15; Stop 09/29/21 at 08:17; Status DC Bisacodyl (Dulcolax Supp) 10 mg PRN DAILY PRN [place] CONSTIPATION; Start 09/29/21 at 14:15 Lactulose (Lactulose) 20 gm PRN DAILY PRN PO CONSTIPATION, 2nd choice Last administered on 10/01/21at 08:35; Start 09/29/21 at 14:30 Ascorbic Acid (Vitamin C) 500 mg DAILY PO Last administered on 10/22/21at 08:34; Start 10/02/21 at 10:00 Levofloxacin/ Dextrose 100 ml @ 100 mls/hr Q24H IV Last administered on 10/02/21at 12:15; Start 10/02/21 at 12:00; Stop 10/03/21 at 08:57; Status DC Levofloxacin/ Dextrose 50 ml @ 50 mls/hr Q24H IV Last administered on 10/06/21at 15:19; Start 10/03/21 at 12:00; Stop 10/06/21 at 23:00; Status DC Lactobacillus Rhamnosus (Culturelle) 1 cap BID PO Last administered on 10/22/21at 08:34; Start 10/03/21 at 21:00 Lidocaine (Lidoderm) 1 patch QHS TP Last administered on 10/21/21at 20:47; Start 10/04/21 at 22:00 Levofloxacin (Levaquin) 250 mg DAILY06 PO Last administered on 10/11/21at 06:13; Start 10/07/21 at 06:00; Stop 10/11/21 at 12:00; Status DC Insulin Human Lispro (HumaLOG) 0-5 UNITS TIDWMEALS SQ Last administered on 10/18/21at 12:16; Start 10/12/21 at 08:00; Stop 10/19/21 at 15:15; Status DC Dextrose (Dextrose 50%-Water Syringe) 12.5 gm PRN Q15MIN PRN IV SEE COMMENTS; Start 10/11/21 at 19:00 Dextrose (Iv Dextrose 5%) 250 ml PRN Q15MIN PRN IV SEE COMMENTS; Start 10/11/21 at 19:00 Potassium Chloride (Klor-Con) 40 meq 1X ONCE PO Last administered on 10/15/21at 10:21; Start 10/15/21 at 10:30; Stop 10/15/21 at 10:31; Status DC Magnesium Sulfate 50 ml @ 25 mls/hr 1X ONCE IV Last administered on 10/15/21at 10:20; Start 10/15/21 at 10:30; Stop 10/15/21 at 12:29; Status DC Baclofen (Lioresal) 10 mg Q8HRS PO Last administered on 10/17/21at 06:02; Start 10/16/21 at 22:00; Stop 10/17/21 at 11:58; Status DC Baclofen (Lioresal) 10 mg Q6HRS PO Last administered on 10/22/21at 06:00; Start 10/17/21 at 12:00 Triamcinolone Acetonide (Kenalog-40) 40 mg 1X ONCE IM Last administered on 10/17/21at 12:15; Start 10/17/21 at 12:15; Stop 10/17/21 at 12:16; Status DC Bupivacaine HCl (Sensorcaine-Mpf 0.25%) 10 ml 1X ONCE IJ Last administered on 10/17/21at 12:00; Start 10/17/21 at 12:00; Stop 10/17/21 at 12:01; Status DC Magnesium Sulfate 100 ml @ 25 mls/hr 1X ONCE IV Last administered on 10/18/21at 14:11; Start 10/18/21 at 14:30; Stop 10/18/21 at 18:29; Status DC Vitamin B Complex (Folbic Tablet) 1 tab DAILY PO Last administered on 10/22/21at 08:33; Start 10/18/21 at 14:30 Non-Formulary Medication (L-Carnitine 500 Mg Capsule) 1 ea DAILY PO Last administered on 10/20/21at 08:54; Start 10/19/21 at 13:00 Insulin Human Lispro (HumaLOG) 0-5 UNITS PRN BFRMEAL PRN SQ SEE ADMIN INSTRUCTIONS Last administered on 10/21/21at 17:33; Start 10/19/21 at 15:15 Active Scripts Active Dok (Docusate Sodium) 100 Mg Capsule 100 Mg PO PRN BID PRN 30 Days Tylenol (Acetaminophen) 325 Mg Tablet 650 Mg PO PRN Q4HRS PRN 30 Days Valium (Diazepam) 5 Mg Tablet 5 Mg PO TID Atorvastatin Calcium 10 Mg Tablet 10 Mg PO QHS Reported Midodrine Hcl 2.5 Mg Tablet 2.5 Mg PO PRN 1X PRN Aspirin 81 Mg Tab.chew 81 Mg PO DAILY Baclofen 10 Mg Tablet 10 Mg PO BID Lyrica (Pregabalin) 100 Mg Capsule 100 Mg PO BID 30 Days Polyethylene Glycol 3350 2,500 Gm Powder 17 Gm PO DAILY 30 Days Micatin (Miconazole Nitrate) 14 Gm Cream..g. 1 [place] TP TID Tradjenta (Linagliptin) 5 Mg Tablet 5 Mg PO DAILY Lidocaine PATCH (Lidocaine) 1 Each Adh..patch 1 Each TP DAILY REMOVE AFTER 12 HOURS Levemir (Insulin Detemir) 100 Unit/1 Ml Vial 4 Unit SQ HS Hydroxyzine Hcl 25 Mg Tablet 25 Mg PO PRN Q6HRS PRN Fluticasone Propionate Nasal [place] (Fluticasone Propionate) 16 Gm [place].susp 2 [place] NS DAILY Diclofenac Sodium 100 Gm Gel..gram. 100 Gm TP PRN TID PRN Losartan Potassium 100 Mg Tablet 25 Tab PO DAILY08 Vitals/I & O Vital Sign - Last 24 Hours 10/21/21 10/21/21 10/21/21 10/21/21 11:00 12:11 12:41 15:00 Temp 98.2 98.3 98.2 98.3 Pulse 74 75 Resp 14 14 B/P (MAP) 123/60 (81) 131/59 (83) Pulse Ox 94 96 O2 Delivery Room Air Room Air Room Air Room Air 10/21/21 10/21/21 10/21/21 10/22/21 19:00 20:00 23:25 02:44 Temp 98.3 98.1 98.3 98.1 Pulse 75 70 Resp 20 20 18 B/P (MAP) 110/52 (71) 103/56 (72) Pulse Ox 96 96 O2 Delivery Room Air Room Air Room Air Room Air 10/22/21 10/22/21 10/22/21 10/22/21 03:00 03:14 07:00 08:34 Temp 97.8 97.5 97.8 97.5 Pulse 70 58 58 Resp 21 16 21 B/P (MAP) 104/43 (63) 117/49 (71) 117/49 Pulse Ox 96 95 O2 Delivery Room Air Room Air 10/22/21 08:35 O2 Delivery Room Air Intake and Output 10/21/21 10/21/21 10/22/21 14:59 22:59 06:59 Intake Total 200 ml Output Total 1250 ml 300 ml Balance -1250 ml -100 ml Justifications for Admission Other Justification uncontrolled diabetes TERRY JURADO MD Oct 22, 2021 11:00
[2021-10-22] MEDS: ACETAMINOPHEN 325 MG TABLET. PO PRN ×2 (11:11→21:29)
--- NOTE | 2021-10-22 11:38 | PDOC ---
PROGRESS NOTES Date of Service DATE: 10/22/21 TIME: 11:34 Subjective Subjective patient seen at 1000 POD #26 S/P Evacuation of epidural hematoma, s/p cervical laminectomy and fusion 09/25/21 He had rough not not getting medicine at proper time last night. Objective Objective Vital Signs Date Time Temp Pulse Resp B/P (MAP) Pulse Ox O2 Delivery O2 Flow Rate FiO2 10/22/21 09:05 Room Air 10/22/21 08:34 58 117/49 10/22/21 07:00 97.5 21 95 97.5 10/21/21 08:00 2.0 Intake and Output 10/22/21 07:00 Intake Total 200 ml Output Total 1550 ml Balance -1350 ml Intake Oral 200 ml Output Urine Total 1550 ml Physical Exam General: Alert, Cooperative Neuro: Normal speech, Other (3/5 distal arms, 4/5 left shoulder, 5/5 right shoulder, trace hip adduction bilaterally and trace right hip extension) Plan Plan of Care continue current treatments PT/ OT SCDs awaiting placement Comment Review of Relevant I have reviewed the following items michelle (where applicable) has been applied. Labs Laboratory Tests Test 10/20/21 21:23 10/21/21 07:45 10/21/21 11:53 10/21/21 17:04 Glucose (Fingerstick) 167 mg/dL (70-99) 195 mg/dL (70-99) 148 mg/dL (70-99) 161 mg/dL (70-99) Test 10/22/21 07:15 Glucose (Fingerstick) 153 mg/dL (70-99) Laboratory Tests Test 10/21/21 11:53 10/21/21 17:04 10/22/21 07:15 Glucose (Fingerstick) 148 mg/dL (70-99) 161 mg/dL (70-99) 153 mg/dL (70-99) Microbiology 10/01/21 Urine Culture - Final, Complete Escherichia Coli Escherichia Coli#2 Medications Current Medications Fentanyl Citrate (Fentanyl 2ml Vial) 25 mcg PRN Q5MIN PRN IVP MILD PAIN 1-3; Start 09/25/21 at 06:00; Stop 09/25/21 at 20:00; Status DC Fentanyl Citrate (Fentanyl 2ml Vial) 50 mcg PRN Q5MIN PRN IVP MODERATE PAIN 4-6 Last administered on 09/25/21at 13:48; Start 09/25/21 at 06:00; Stop 09/25/21 at 20:00; Status DC Morphine Sulfate (Morphine Sulfate) 1 mg PRN Q10MIN PRN IVP SEVERE PAIN 7-10 Last administered on 09/25/21at 14:21; Start 09/25/21 at 06:00; Stop 09/25/21 at 20:00; Status DC Ringer's Solution 1,000 ml @ 30 mls/hr Q24H IV Last administered on 09/25/21at 12:54; Start 09/25/21 at 06:00; Stop 09/25/21 at 17:59; Status DC Hydromorphone HCl (Dilaudid) 0.5 mg PRN Q10MIN PRN IVP SEVERE PAIN 7-10, 2nd CHOICE Last administered on 09/25/21at 16:53; Start 09/25/21 at 06:00; Stop 09/25/21 at 20:00; Status DC Prochlorperazine Edisylate (Compazine) 5 mg PACU PRN PRN IVP NAUSEA, MRX1; Start 09/25/21 at 06:00; Stop 09/25/21 at 20:00; Status DC Cefazolin Sodium 1 gm/Sodium Chloride 1,000 ml @ 1,000 mls/hr 1X ONCE IRR Last administered on 09/25/21at 10:14; Start 09/25/21 at 06:00; Stop 09/25/21 at 06:59; Status DC Cefazolin Sodium/ Dextrose 50 ml @ 100 mls/hr 1X PREOP PRN IV PRIOR TO PROCEDURE Last administered on 09/25/21at 09:30; Start 09/25/21 at 06:00; Stop 09/25/21 at 13:39; Status DC Insulin Human Lispro (HumaLOG VIAL for OP,RR ONLY) 0-10 units PRN Q1HR PRN SQ PER PROTOCOL Last administered on 09/25/21at 17:01; Start 09/25/21 at 07:00; Stop 09/25/21 at 18:00; Status DC Bupivacaine HCl/ Epinephrine Bitart (Sensorcain-Epi 0.5% Kit) 30 ml STK-MED ONCE INJ Last administered on 09/25/21at 10:14; Start 09/25/21 at 10:14; Stop 09/25/21 at 10:30; Status DC Ketorolac Tromethamine (Toradol Im) 60 mg STK-MED ONCE INJ Last administered on 09/25/21at 10:14; Start 09/25/21 at 10:14; Stop 09/25/21 at 10:30; Status DC Thrombin 20,000 unit STK-MED ONCE TP Last administered on 09/25/21at 10:14; Start 09/25/21 at 10:14; Stop 09/25/21 at 10:30; Status DC Gelatin (Gelfoam Size 100) 1 each STK-MED ONCE TP Last administered on 09/25/21at 10:14; Start 09/25/21 at 10:14; Stop 09/25/21 at 10:30; Status DC Acetaminophen (Tylenol) 650 mg PRN Q4HRS PRN PO TEMP OVER 100.4F OR MILD PAIN Last administered on 10/22/21 11:11; Start 09/25/21 at 12:30 Aspirin (Aspirin Chewable) 81 mg DAILY PO Last administered on 09/26/21at 08:30; Start 09/26/21 at 09:00; Stop 09/28/21 at 17:19; Status DC Atorvastatin Calcium (Lipitor) 10 mg QHS PO Last administered on 10/21/21 20:44; Start 09/25/21 at 21:00 Baclofen (Lioresal) 10 mg BID PO Last administered on 10/16/21 08:26; Start 09/25/21 at 21:00; Stop 10/16/21 at 13:21; Status DC Diazepam (Valium) 5 mg TID PO Last administered on 10/22/21at 08:34; Start 09/25/21 at 14:00 Docusate Sodium (Colace) 100 mg PRN BID PRN PO HARD STOOLS Last administered on 10/15/21 10:22; Start 09/25/21 at 12:30 Fluticasone Propionate (Flonase) 2 spray DAILY NS Last administered on 10/17/21 12:58; Start 09/26/21 at 09:00 Hydroxyzine HCl (Atarax) 25 mg PRN Q6HRS PRN PO Itching (2ND Choice) Last administered on 3/6/22at 04:58; Start 09/25/21 at 12:30 Lidocaine (Lidoderm) 1 patch QHS TP Last administered on 10/03/21 23:31; Start 09/25/21 at 20:00; Stop 10/05/21 at 01:01; Status DC Linagliptin (Tradjenta) 5 mg DAILY PO Last administered on 10/22/21 08:34; Start 09/25/21 at 13:00 Miconazole Nitrate (Monistat-Derm) 1 crispin TID TP Last administered on 10/04/21at 20:08; Start 09/25/21 at 21:00; Stop 10/05/21 at 13:23; Status DC Midodrine (Proamatine) 2.5 mg PRN 1X PRN PO hypotension Last administered on 09/27/21 08:56; Start 09/25/21 at 12:30 Oxycodone HCl (Roxicodone) 10 mg PRN Q6HRS PRN PO MODERATE-SEVERE PAIN Last administered on 10/22/21 08:35; Start 09/25/21 at 12:30 Diclofenac Sodium (Voltaren) 1 crispin PRN TID PRN TP PAIN CONTROL; Start 09/25/21 at 13:15; Stop 09/25/21 at 18:37; Status DC Insulin Glargine (Lantus Syringe) 4 unit QHS SQ Last administered on 10/21/21 20:52; Start 09/25/21 at 21:00 Losartan Potassium (Cozaar) 25 mg DAILY08 PO Last administered on 10/22/21 08:34; Start 09/26/21 at 08:00 Polyethylene Glycol (miraLAX PACKET) 17 gm DAILY PO Last administered on 10/13 08:53; Start 09/25/21 at 14:00 Pregabalin (Lyrica) 100 mg BID PO Last administered on 10/22/21 08:34; Start 09/25/21 at 21:00 Acetaminophen (Tylenol) 650 mg PRN Q6HRS PRN PO MILD PAIN / TEMP > 100.3'F; Start 09/25/21 at 12:30; Status Cancel Al Hydroxide/Mg Hydroxide (Mylanta Plus Xs) 30 ml PRN Q3HRS PRN PO HEARTBURN / GAS; Start 09/25/21 at 12:30 Calcium Carbonate/ Glycine (Tums) 500 mg PRN Q3HRS PRN PO INDIGESTION; Start 09/25/21 at 12:30 Diphenhydramine HCl (Benadryl) 25 mg PRN Q6HRS PRN PO ITCHING (1ST CHOICE); Start 09/25/21 at 12:30 Naloxone HCl (Narcan) 0.1 mg PRN Q2MIN PRN IV SEE COMMENTS; Start 09/25/21 at 12:30 Sodium Chloride (Normal Saline Flush) 3 ml QSHIFT PRN IV AFTER MEDS AND BLOOD DRAWS; Start 09/25/21 at 12:30 Potassium Chloride/Sodium Chloride 1,000 ml @ 75 mls/hr [id number] IV Last administered on 09/26/21at 07:00; Start 09/25/21 at 12:30; Stop 09/26/21 at 17:33; Status DC Magnesium Hydroxide (Milk Of Magnesia) 2,400 mg PRN Q12HR PRN PO CONSTIPATION; Start 09/25/21 at 12:30 Cefazolin Sodium (Ancef) 1 gm Q8H IVP Last administered on 09/26/21at 04:14; Start 09/25/21 at 18:00; Stop 09/26/21 at 10:01; Status DC Fentanyl Citrate (Fentanyl 2ml Vial) 50 mcg PRN Q2HR PRN IVP MODERATE TO SEVERE PAIN Last administered on 10/05/21at 22:46; Start 09/25/21 at 12:30 Dextrose (Dextrose 50%-Water Syringe) 12.5 gm PRN Q15MIN PRN IV SEE COMMENTS; Start 09/25/21 at 12:30; Status Cancel Dextrose (Iv Dextrose 5%) 250 ml PRN Q15MIN PRN IV SEE COMMENTS; Start 09/25/21 at 12:30; Status Cancel Gelatin (Gelfoam Size 100) 1 each STK-MED ONCE .ROUTE ; Start 09/25/21 at 06:37; Stop 09/25/21 at 14:55; Status DC Bupivacaine HCl/ Epinephrine Bitart (Sensorcain-Epi 0.5% Kit) 30 ml STK-MED ONCE .ROUTE ; Start 09/25/21 at 06:37; Stop 09/25/21 at 14:55; Status DC Ketorolac Tromethamine (Toradol Im) 60 mg STK-MED ONCE .ROUTE ; Start 09/25/21 at 06:37; Stop 09/25/21 at 14:55; Status DC Thrombin 20,000 unit STK-MED ONCE TP ; Start 09/25/21 at 06:38; Stop 09/25/21 at 14:55; Status DC Propofol (Diprivan) 200 mg STK-MED ONCE IV ; Start 09/25/21 at 05:54; Stop 09/25/21 at 14:57; Status DC Lidocaine HCl (Lidocaine Pf 2% Vial) 5 ml STK-MED ONCE .ROUTE ; Start 09/25/21 at 05:54; Stop 09/25/21 at 14:57; Status DC Ondansetron HCl (Zofran) 4 mg STK-MED ONCE .ROUTE ; Start 09/25/21 at 05:54; Stop 09/25/21 at 14:57; Status DC Phenylephrine HCl (Ramone-Synephrine Inj) 10 mg STK-MED ONCE .ROUTE ; Start 09/25/21 at 05:54; Stop 09/25/21 at 14:57; Status DC Propofol 50 ml @ As Directed STK-MED ONCE IV ; Start 09/25/21 at 05:54; Stop 09/25/21 at 14:57; Status DC Dexamethasone Sodium Phosphate (Decadron) 4 mg STK-MED ONCE .ROUTE ; Start 09/25/21 at 05:54; Stop 09/25/21 at 14:57; Status DC Fentanyl Citrate (Fentanyl 2ml Vial) 100 mcg STK-MED ONCE .ROUTE ; Start 09/25/21 at 05:54; Stop 09/25/21 at 14:57; Status DC Succinylcholine Chloride (Anectine) 200 mg STK-MED ONCE .ROUTE ; Start 09/25/21 at 05:54; Stop 09/25/21 at 14:57; Status DC Remifentanil HCl (Ultiva) 1 mg STK-MED ONCE IV ; Start 09/25/21 at 05:54; Stop 09/25/21 at 14:57; Status DC Glycopyrrolate (Robinul) 1 mg STK-MED ONCE .ROUTE ; Start 09/25/21 at 07:11; Stop 09/25/21 at 15:01; Status DC Propofol 50 ml @ As Directed STK-MED ONCE IV ; Start 09/25/21 at 08:07; Stop 09/25/21 at 15:02; Status DC Ketamine HCl (Ketamine) 50 mg STK-MED ONCE .ROUTE ; Start 09/25/21 at 08:15; Stop 09/25/21 at 15:02; Status DC Hydromorphone HCl (Dilaudid) 2 mg STK-MED ONCE .ROUTE ; Start 09/25/21 at 10:44; Stop 09/25/21 at 15:03; Status DC Fentanyl Citrate (Fentanyl 2ml Vial) 100 mcg STK-MED ONCE .ROUTE ; Start 09/25/21 at 13:26; Stop 09/25/21 at 15:04; Status DC Morphine Sulfate (Morphine Sulfate) 2 mg STK-MED ONCE .ROUTE ; Start 09/25/21 at 14:04; Stop 09/25/21 at 15:05; Status DC Hydromorphone HCl (Dilaudid) 2 mg STK-MED ONCE .ROUTE ; Start 09/25/21 at 14:54; Stop 09/25/21 at 15:06; Status DC Menthol/Methyl Salicylate (Bengay Greaseless Cream) 1 crispin PRN Q30MIN PRN TP MUSCLE PAIN Last administered on 10/02/21at 21:03; Start 09/25/21 at 18:45 Mupirocin (Bactroban) 1 crispin BID NS Last administered on 10/12/21at 21:09; Start 09/26/21 at 09:00; Stop 10/13/21 at 07:56; Status DC Dexamethasone Sodium Phosphate (Decadron) 10 mg 1X ONCE IVP Last administered on 09/26/21at 07:31; Start 09/26/21 at 07:30; Stop 09/26/21 at 07:31; Status DC Cefazolin Sodium 1 gm/Sodium Chloride 1,000 ml @ 1,000 mls/hr 1X ONCE IRR Last administered on 09/26/21at 11:52; Start 09/26/21 at 10:30; Stop 09/26/21 at 11:29; Status DC Cefazolin Sodium (Ancef) 1 gm STK-MED ONCE IVP ; Start 09/26/21 at 10:05; Stop 09/26/21 at 10:06; Status DC Lidocaine HCl (Lidocaine Pf 2% Vial) 5 ml STK-MED ONCE .ROUTE ; Start 09/26/21 at 10:18; Stop 09/26/21 at 10:18; Status DC Ondansetron HCl (Zofran) 4 mg STK-MED ONCE .ROUTE ; Start 09/26/21 at 10:18; Stop 09/26/21 at 10:18; Status DC Propofol (Diprivan) 200 mg STK-MED ONCE IV ; Start 09/26/21 at 10:18; Stop 09/26/21 at 10:19; Status DC Dexamethasone Sodium Phosphate (Decadron) 4 mg STK-MED ONCE .ROUTE ; Start 09/26/21 at 10:18; Stop 09/26/21 at 10:19; Status DC Sevoflurane (Ultane) 30 ml STK-MED ONCE IH ; Start 09/26/21 at 10:18; Stop 09/26/21 at 10:19; Status DC Fentanyl Citrate (Fentanyl 2ml Vial) 100 mcg STK-MED ONCE .ROUTE ; Start 09/26/21 at 10:19; Stop 09/26/21 at 10:19; Status DC Rocuronium Carrier (Zemuron) 50 mg STK-MED ONCE .ROUTE ; Start 09/26/21 at 10:19; Stop 09/26/21 at 10:19; Status DC Insulin Human Lispro (HumaLOG VIAL for OP,RR ONLY) 0-10 units PRN Q1HR PRN SQ PER PROTOCOL Last administered on 09/26/21at 15:11; Start 09/26/21 at 10:30; Stop 09/26/21 at 18:00; Status DC Sugammadex Sodium (Bridion) 200 mg 1X ONCE IVP Last administered on 09/26/21at 10:30; Start 09/26/21 at 10:30; Stop 09/26/21 at 10:31; Status DC Gelatin (Gelfoam Size 100) 1 each STK-MED ONCE .ROUTE Last administered on 09/26/21at 11:52; Start 09/26/21 at 10:30; Stop 09/26/21 at 10:30; Status DC Bupivacaine HCl/ Epinephrine Bitart (Sensorcain-Epi 0.5% Kit) 30 ml STK-MED ONCE .ROUTE ; Start 09/26/21 at 10:30; Stop 09/26/21 at 10:30; Status DC Ketorolac Tromethamine (Toradol Im) 60 mg STK-MED ONCE .ROUTE ; Start 09/26/21 at 10:30; Stop 09/26/21 at 10:30; Status DC Thrombin 20,000 unit STK-MED ONCE TP Last administered on 09/26/21at 11:52; Start 09/26/21 at 10:30; Stop 09/26/21 at 10:31; Status DC Cefazolin Sodium/ Dextrose 50 ml @ As Directed STK-MED ONCE IV ; Start 09/26/21 at 10:32; Stop 09/26/21 at 10:32; Status DC Vancomycin HCl 1 gm/Sodium Chloride 250 ml @ 250 mls/hr PREOP PRN PRN IV PRIOR TO PROCEDURE; Start 09/26/21 at 10:45; Stop 09/26/21 at 14:00; Status DC Cefazolin Sodium/ Dextrose 50 ml @ 100 mls/hr 1X ONCE IV Last administered on 09/26/21at 11:00; Start 09/26/21 at 11:00; Stop 09/26/21 at 11:29; Status DC Dexamethasone Sodium Phosphate (Decadron) 4 mg STK-MED ONCE .ROUTE ; Start 09/26/21 at 11:04; Stop 09/26/21 at 11:04; Status DC Glycopyrrolate (Robinul) 1 mg STK-MED ONCE .ROUTE ; Start 09/26/21 at 11:04; Stop 09/26/21 at 11:04; Status DC Hydromorphone HCl (Dilaudid) 2 mg STK-MED ONCE .ROUTE ; Start 09/26/21 at 11:56; Stop 09/26/21 at 11:56; Status DC Fentanyl Citrate (Fentanyl 2ml Vial) 25 mcg PRN Q5MIN PRN IVP MILD PAIN 1-3; Start 09/26/21 at 14:30; Stop 09/26/21 at 18:15; Status DC Fentanyl Citrate (Fentanyl 2ml Vial) 50 mcg PRN Q5MIN PRN IVP MODERATE PAIN 4- 6; Start 09/26/21 at 14:30; Stop 09/26/21 at 18:15; Status DC Morphine Sulfate (Morphine Sulfate) 1 mg PRN Q10MIN PRN IVP SEVERE PAIN 7-10; Start 09/26/21 at 14:30; Stop 09/26/21 at 18:15; Status DC Ringer's Solution 1,000 ml @ 30 mls/hr Q24H IV Last administered on 09/26/21at 15:18; Start 09/26/21 at 14:30; Stop 09/26/21 at 21:00; Status DC Hydromorphone HCl (Dilaudid) 0.5 mg PRN Q10MIN PRN IVP SEVERE PAIN 7-10, 2nd CHOICE; Start 09/26/21 at 14:30; Stop 09/26/21 at 18:15; Status DC Prochlorperazine Edisylate (Compazine) 5 mg PACU PRN PRN IVP NAUSEA, MRX1; Start 09/26/21 at 14:30; Stop 09/26/21 at 21:00; Status DC Fentanyl Citrate (Fentanyl 2ml Vial) 100 mcg STK-MED ONCE .ROUTE ; Start 09/26/21 at 14:23; Stop 09/26/21 at 14:25; Status DC Fentanyl Citrate (Fentanyl 2ml Vial) 25 mcg PRN Q5MIN PRN IVP MILD PAIN 1-3; Start 09/26/21 at 14:30; Stop 09/27/21 at 14:29; Status UNV Fentanyl Citrate (Fentanyl 2ml Vial) 50 mcg PRN Q5MIN PRN IVP MODERATE PAIN 4- 6; Start 09/26/21 at 14:30; Stop 09/27/21 at 14:29; Status UNV Morphine Sulfate (Morphine Sulfate) 1 mg PRN Q10MIN PRN IVP SEVERE PAIN 7-10; Start 09/26/21 at 14:30; Stop 09/27/21 at 14:29; Status UNV Ringer's Solution 1,000 ml @ 30 mls/hr Q24H IV ; Start 09/26/21 at 14:30; Stop 09/27/21 at 02:29; Status UNV Hydromorphone HCl (Dilaudid) 0.5 mg PRN Q10MIN PRN IVP SEVERE PAIN 7-10, 2nd CHOICE; Start 09/26/21 at 14:30; Stop 09/27/21 at 14:29; Status UNV Prochlorperazine Edisylate (Compazine) 5 mg PACU PRN PRN IVP NAUSEA, MRX1; Start 09/26/21 at 14:30; Stop 09/27/21 at 14:29; Status UNV Dexamethasone Sodium Phosphate (Decadron) 4 mg Q6HRS IVP Last administered on 09/28/21at 05:06; Start 09/26/21 at 18:00; Stop 09/28/21 at 06:00; Status DC Sodium Chloride 1,000 ml @ 100 mls/hr Q10H IV Last administered on 10/05/21at 06:41; Start 09/26/21 at 17:30; Stop 10/05/21 at 13:48; Status DC Cefazolin Sodium (Ancef) 1 gm Q8HRS IVP ; Start 09/27/21 at 06:00; Stop 09/27/21 at 05:47; Status DC Vancomycin HCl 1 gm/Sodium Chloride 250 ml @ 166.667 mls/hr 1X ONCE IV Last administered on 09/27/21at 06:27; Start 09/27/21 at 06:00; Stop 09/27/21 at 07:29; Status DC Gadoterate Meglumine (Clariscan) 19 ml 1X ONCE IVP Last administered on 09/29/21at 10:32; Start 09/29/21 at 08:15; Stop 09/29/21 at 08:17; Status DC Bisacodyl (Dulcolax Supp) 10 mg PRN DAILY PRN [place] CONSTIPATION; Start 09/29/21 at 14:15 Lactulose (Lactulose) 20 gm PRN DAILY PRN PO CONSTIPATION, 2nd choice Last administered on 10/01/21at 08:35; Start 09/29/21 at 14:30 Ascorbic Acid (Vitamin C) 500 mg DAILY PO Last administered on 10/22/21at 08:34; Start 10/02/21 at 10:00 Levofloxacin/ Dextrose 100 ml @ 100 mls/hr Q24H IV Last administered on 10/02/21at 12:15; Start 10/02/21 at 12:00; Stop 10/03/21 at 08:57; Status DC Levofloxacin/ Dextrose 50 ml @ 50 mls/hr Q24H IV Last administered on 10/06/21at 15:19; Start 10/03/21 at 12:00; Stop 10/06/21 at 23:00; Status DC Lactobacillus Rhamnosus (Culturelle) 1 cap BID PO Last administered on 10/22/21at 08:34; Start 10/03/21 at 21:00 Lidocaine (Lidoderm) 1 patch QHS TP Last administered on 10/21/21at 20:47; Start 10/04/21 at 22:00 Levofloxacin (Levaquin) 250 mg DAILY06 PO Last administered on 10/11/21at 06:13; Start 10/07/21 at 06:00; Stop 10/11/21 at 12:00; Status DC Insulin Human Lispro (HumaLOG) 0-5 UNITS TIDWMEALS SQ Last administered on 10/18/21at 12:16; Start 10/12/21 at 08:00; Stop 10/19/21 at 15:15; Status DC Dextrose (Dextrose 50%-Water Syringe) 12.5 gm PRN Q15MIN PRN IV SEE COMMENTS; Start 10/11/21 at 19:00 Dextrose (Iv Dextrose 5%) 250 ml PRN Q15MIN PRN IV SEE COMMENTS; Start 10/11/21 at 19:00 Potassium Chloride (Klor-Con) 40 meq 1X ONCE PO Last administered on 10/15/21at 10:21; Start 10/15/21 at 10:30; Stop 10/15/21 at 10:31; Status DC Magnesium Sulfate 50 ml @ 25 mls/hr 1X ONCE IV Last administered on 10/15/21at 10:20; Start 10/15/21 at 10:30; Stop 10/15/21 at 12:29; Status DC Baclofen (Lioresal) 10 mg Q8HRS PO Last administered on 10/17/21at 06:02; Start 10/16/21 at 22:00; Stop 10/17/21 at 11:58; Status DC Baclofen (Lioresal) 10 mg Q6HRS PO Last administered on 10/22/21at 06:00; Start 10/17/21 at 12:00 Triamcinolone Acetonide (Kenalog-40) 40 mg 1X ONCE IM Last administered on 10/17/21at 12:15; Start 10/17/21 at 12:15; Stop 10/17/21 at 12:16; Status DC Bupivacaine HCl (Sensorcaine-Mpf 0.25%) 10 ml 1X ONCE IJ Last administered on 10/17/21at 12:00; Start 10/17/21 at 12:00; Stop 10/17/21 at 12:01; Status DC Magnesium Sulfate 100 ml @ 25 mls/hr 1X ONCE IV Last administered on 10/18/21at 14:11; Start 10/18/21 at 14:30; Stop 10/18/21 at 18:29; Status DC Vitamin B Complex (Folbic Tablet) 1 tab DAILY PO Last administered on 10/22/21at 08:33; Start 10/18/21 at 14:30 Non-Formulary Medication (L-Carnitine 500 Mg Capsule) 1 ea DAILY PO Last administered on 10/20/21at 08:54; Start 10/19/21 at 13:00 Insulin Human Lispro (HumaLOG) 0-5 UNITS PRN BFRMEAL PRN SQ SEE ADMIN INSTRUCTIONS Last administered on 10/21/21at 17:33; Start 10/19/21 at 15:15 Active Scripts Active Dok (Docusate Sodium) 100 Mg Capsule 100 Mg PO PRN BID PRN 30 Days Tylenol (Acetaminophen) 325 Mg Tablet 650 Mg PO PRN Q4HRS PRN 30 Days Valium (Diazepam) 5 Mg Tablet 5 Mg PO TID Atorvastatin Calcium 10 Mg Tablet 10 Mg PO QHS Reported Midodrine Hcl 2.5 Mg Tablet 2.5 Mg PO PRN 1X PRN Aspirin 81 Mg Tab.chew 81 Mg PO DAILY Baclofen 10 Mg Tablet 10 Mg PO BID Lyrica (Pregabalin) 100 Mg Capsule 100 Mg PO BID 30 Days Polyethylene Glycol 3350 2,500 Gm Powder 17 Gm PO DAILY 30 Days Micatin (Miconazole Nitrate) 14 Gm Cream..g. 1 Crispin TP TID Tradjenta (Linagliptin) 5 Mg Tablet 5 Mg PO DAILY Lidocaine PATCH (Lidocaine) 1 Each Adh..patch 1 Each TP DAILY REMOVE AFTER 12 HOURS Levemir (Insulin Detemir) 100 Unit/1 Ml Vial 4 Unit SQ HS Hydroxyzine Hcl 25 Mg Tablet 25 Mg PO PRN Q6HRS PRN Fluticasone Propionate Nasal Stella (Fluticasone Propionate) 16 Gm Stella.susp 2 Stella NS DAILY Diclofenac Sodium 100 Gm Gel..gram. 100 Gm TP PRN TID PRN Losartan Potassium 100 Mg Tablet 25 Tab PO DAILY08 Vitals/I & O Vital Sign - Last 24 Hours 10/21/21 10/21/21 10/21/21 10/21/21 12:11 12:41 15:00 19:00 Temp 98.3 98.3 98.3 98.3 Pulse 75 75 Resp 14 20 B/P (MAP) 131/59 (83) 110/52 (71) Pulse Ox 96 96 O2 Delivery Room Air Room Air Room Air Room Air 10/21/21 10/21/21 10/22/21 10/22/21 20:00 23:25 02:44 03:00 Temp 98.1 97.8 98.1 97.8 Pulse 70 70 Resp 20 18 21 B/P (MAP) 103/56 (72) 104/43 (63) Pulse Ox 96 96 O2 Delivery Room Air Room Air Room Air Room Air 10/22/21 10/22/21 10/22/21 10/22/21 03:14 07:00 08:34 08:35 Temp 97.5 97.5 Pulse 58 58 Resp 16 21 B/P (MAP) 117/49 (71) 117/49 Pulse Ox 95 O2 Delivery Room Air Room Air 10/22/21 09:05 O2 Delivery Room Air Intake and Output 10/21/21 10/21/21 10/22/21 15:00 23:00 07:00 Intake Total 200 ml Output Total 1250 ml 300 ml Balance -1250 ml -100 ml Justifications for Admission Other Justification uncontrolled diabetes KELLEN BRUNO MD Oct 22, 2021 11:38
[2021-10-22] MEDS: INSULIN LISPRO 300 UNITS/3 ML VIAL. SQ PRN (12:46)
[2021-10-22 15:00] VITALS: BP 160/75
[2021-10-22 19:00] VITALS: BP 140/71
[2021-10-22] MEDS: ATORVASTATIN CALCIUM 10 MG TABLET. PO SCH (21:16)
[2021-10-22] MEDS: LIDOCAINE (700MG/PATCH) PATCH. TP SCH (21:18)
[2021-10-22] MEDS: INSULIN GLARGINE SYRINGE. SQ SCH (21:25)
[2021-10-22 23:00] VITALS: BP 142/70
[2021-10-23] MEDS: diazePAM 5 MG TABLET PO PRN ×2 (00:05→23:04)
[2021-10-23] MEDS: BACLOFEN 10 MG TABLET. PO SCH ×4 (00:05→17:48)
[2021-10-23] MEDS: oxyCODONE IR 5 MG TABLET PO PRN ×6 (02:09→21:38)
[2021-10-23 03:43] VITALS: BP 116/52
[2021-10-23] MEDS: ACETAMINOPHEN 325 MG TABLET. PO PRN ×2 (03:52→19:09)
[2021-10-23 07:15] VITALS: BP 107/52
[2021-10-23] MEDS: FLUTICASONE 50MCG/NASAL SPRAY 16GM BOTTLE. NS SCH (07:46)
[2021-10-23] MEDS: POLYETHYLENE GLYCOL 3350 17 GM PACKET. PO SCH (07:48)
[2021-10-23] MEDS: ASCORBIC ACID 500 MG TABLET PO SCH (08:26)
[2021-10-23] MEDS: LINAGLIPTIN 5 MG TABLET PO SCH (08:26)
[2021-10-23] MEDS: VITAMIN B12,B9,B6 COMPLEX 1 TABLET. PO SCH (08:26)
[2021-10-23] MEDS: LOSARTAN POTASSIUM 25 MG TABLET. PO SCH (08:26)
[2021-10-23] MEDS: LACTOBACILLUS RHAMNOSUS GG 1 CAPSULE. PO SCH ×2 (08:26→21:00)
[2021-10-23] MEDS: PREGABALIN 50 MG CAPSULE PO SCH ×2 (08:27→21:07)
[2021-10-23] MEDS: CARNITINE 500 MG PO SCH (09:00)
--- NOTE | 2021-10-23 09:13 | PDOC ---
PROGRESS NOTES Date of Service DATE: 10/23/21 TIME: 09:12 Assessment Fall in July due to alcohol intoxication, he underwent cervical decompression, then returned a month ago for further cervical surgery, developed epidural hematoma, now has a C6 motor spinal level, no sensory spinal level. Spasticity due to above, better with higher dose of baclofen along with pregabalin and Valium. He is also on narcotics analgesics. Diabetic neuropathy History of syncope History of transient ischemic attack symptoms related to hypertension Plan Agree with current management by Dr. Pineda, spasms are better, still has them occasionally and they are painful for him I will follow along at intervals. Subjective Slept well last night, still has occasional spasm Objective Vital Signs Date Time Temp Pulse Resp B/P (MAP) Pulse Ox O2 Delivery O2 Flow Rate FiO2 10/23/21 08:26 74 107/52 10/23/21 07:15 98.6 16 95 Room Air 98.6 Intake and Output 10/23/21 07:00 Intake Total 400 ml Output Total 1451 ml Balance -1051 ml Intake Oral 400 ml Output Urine Total 1450 ml Stool Total 1 ml PHYSICAL EXAM Alert. Oriented to time, place and person. PERRL. EOMI. CN: no focal findings. Muscle tone: normal. Muscle strength: 0/5 legs, 3/5 distal arms, 4/5 left shoulder, 5/5 right shoulder DTR: 1+ Plantar reflex: Silent Gait: not examined Sensory exam: Stocking loss. No cerebellar signs elicited. Review of Relevant I have reviewed the following items michelle (where applicable) has been applied. Labs Laboratory Tests Test 10/21/21 11:53 10/21/21 17:04 10/22/21 07:15 10/22/21 11:46 Glucose (Fingerstick) 148 mg/dL (70-99) 161 mg/dL (70-99) 153 mg/dL (70-99) 191 mg/dL (70-99) Test 10/22/21 16:52 10/23/21 07:39 Glucose (Fingerstick) 114 mg/dL (70-99) 128 mg/dL (70-99) Laboratory Tests Test 10/22/21 11:46 10/22/21 16:52 10/23/21 07:39 Glucose (Fingerstick) 191 mg/dL (70-99) 114 mg/dL (70-99) 128 mg/dL (70-99) Microbiology 10/01/21 Urine Culture - Final, Complete Escherichia Coli Escherichia Coli#2 Medications Current Medications Fentanyl Citrate (Fentanyl 2ml Vial) 25 mcg PRN Q5MIN PRN IVP MILD PAIN 1-3; Start 09/25/21 at 06:00; Stop 09/25/21 at 20:00; Status DC Fentanyl Citrate (Fentanyl 2ml Vial) 50 mcg PRN Q5MIN PRN IVP MODERATE PAIN 4-6 Last administered on 09/25/21at 13:48; Start 09/25/21 at 06:00; Stop 09/25/21 at 20:00; Status DC Morphine Sulfate (Morphine Sulfate) 1 mg PRN Q10MIN PRN IVP SEVERE PAIN 7-10 Last administered on 09/25/21at 14:21; Start 09/25/21 at 06:00; Stop 09/25/21 at 20:00; Status DC Ringer's Solution 1,000 ml @ 30 mls/hr Q24H IV Last administered on 09/25/21at 12:54; Start 09/25/21 at 06:00; Stop 09/25/21 at 17:59; Status DC Hydromorphone HCl (Dilaudid) 0.5 mg PRN Q10MIN PRN IVP SEVERE PAIN 7-10, 2nd CHOICE Last administered on 09/25/21at 16:53; Start 09/25/21 at 06:00; Stop 09/25/21 at 20:00; Status DC Prochlorperazine Edisylate (Compazine) 5 mg PACU PRN PRN IVP NAUSEA, MRX1; Start 09/25/21 at 06:00; Stop 09/25/21 at 20:00; Status DC Cefazolin Sodium 1 gm/Sodium Chloride 1,000 ml @ 1,000 mls/hr 1X ONCE IRR Last administered on 09/25/21at 10:14; Start 09/25/21 at 06:00; Stop 09/25/21 at 06:59; Status DC Cefazolin Sodium/ Dextrose 50 ml @ 100 mls/hr 1X PREOP PRN IV PRIOR TO PROCEDURE Last administered on 09/25/21at 09:30; Start 09/25/21 at 06:00; Stop 09/25/21 at 13:39; Status DC Insulin Human Lispro (HumaLOG VIAL for OP,RR ONLY) 0-10 units PRN Q1HR PRN SQ PER PROTOCOL Last administered on 09/25/21at 17:01; Start 09/25/21 at 07:00; Stop 09/25/21 at 18:00; Status DC Bupivacaine HCl/ Epinephrine Bitart (Sensorcain-Epi 0.5% Kit) 30 ml STK-MED ONCE INJ Last administered on 09/25/21at 10:14; Start 09/25/21 at 10:14; Stop 09/25/21 at 10:30; Status DC Ketorolac Tromethamine (Toradol Im) 60 mg STK-MED ONCE INJ Last administered on 09/25/21at 10:14; Start 09/25/21 at 10:14; Stop 09/25/21 at 10:30; Status DC Thrombin 20,000 unit STK-MED ONCE TP Last administered on 09/25/21at 10:14; Start 09/25/21 at 10:14; Stop 09/25/21 at 10:30; Status DC Gelatin (Gelfoam Size 100) 1 each STK-MED ONCE TP Last administered on 09/25/21at 10:14; Start 09/25/21 at 10:14; Stop 09/25/21 at 10:30; Status DC Acetaminophen (Tylenol) 650 mg PRN Q4HRS PRN PO TEMP OVER 100.4F OR MILD PAIN Last administered on 10/23/21at 03:52; Start 09/25/21 at 12:30 Aspirin (Aspirin Chewable) 81 mg DAILY PO Last administered on 09/26/21at 08:30; Start 09/26/21 at 09:00; Stop 09/28/21 at 17:19; Status DC Atorvastatin Calcium (Lipitor) 10 mg QHS PO Last administered on 10/22/21at 21:16; Start 09/25/21 at 21:00 Baclofen (Lioresal) 10 mg BID PO Last administered on 10/16/21at 08:26; Start 09/25/21 at 21:00; Stop 10/16/21 at 13:21; Status DC Diazepam (Valium) 5 mg TID PO Last administered on 10/22/21at 12:35; Start 09/25/21 at 14:00; Stop 10/22/21 at 19:23; Status DC Docusate Sodium (Colace) 100 mg PRN BID PRN PO HARD STOOLS Last administered on 10/15/21at 10:22; Start 09/25/21 at 12:30 Fluticasone Propionate (Flonase) 2 spray DAILY NS Last administered on 10/17/21at 12:58; Start 09/26/21 at 09:00 Hydroxyzine HCl (Atarax) 25 mg PRN Q6HRS PRN PO Itching (2ND Choice) Last administered on 10/22/21at 23:07; Start 09/25/21 at 12:30 Lidocaine (Lidoderm) 1 patch QHS TP Last administered on 10/03/21at 23:31; Start 09/25/21 at 20:00; Stop 10/05/21 at 01:01; Status DC Linagliptin (Tradjenta) 5 mg DAILY PO Last administered on 10/23/21at 08:26; Start 09/25/21 at 13:00 Miconazole Nitrate (Monistat-Derm) 1 crispin TID TP Last administered on 10/04/21at 20:08; Start 09/25/21 at 21:00; Stop 10/05/21 at 13:23; Status DC Midodrine (Proamatine) 2.5 mg PRN 1X PRN PO hypotension Last administered on 09/27/21at 08:56; Start 09/25/21 at 12:30 Oxycodone HCl (Roxicodone) 10 mg PRN Q6HRS PRN PO MODERATE-SEVERE PAIN Last administered on 10/22/21at 12:35; Start 09/25/21 at 12:30; Stop 10/22/21 at 16:20; Status DC Diclofenac Sodium (Voltaren) 1 crispin PRN TID PRN TP PAIN CONTROL; Start 09/25/21 at 13:15; Stop 09/25/21 at 18:37; Status DC Insulin Glargine (Lantus Syringe) 4 unit QHS SQ Last administered on 10/22/21at 21:25; Start 09/25/21 at 21:00 Losartan Potassium (Cozaar) 25 mg DAILY08 PO Last administered on 10/23/21at 08:26; Start 09/26/21 at 08:00 Polyethylene Glycol (miraLAX PACKET) 17 gm DAILY PO Last administered on 10/13/21at 08:53; Start 09/25/21 at 14:00 Pregabalin (Lyrica) 100 mg BID PO Last administered on 10/23/21at 08:27; Start 09/25/21 at 21:00 Acetaminophen (Tylenol) 650 mg PRN Q6HRS PRN PO MILD PAIN / TEMP > 100.3'F; Start 09/25/21 at 12:30; Status Cancel Al Hydroxide/Mg Hydroxide (Mylanta Plus Xs) 30 ml PRN Q3HRS PRN PO HEARTBURN / GAS; Start 09/25/21 at 12:30 Calcium Carbonate/ Glycine (Tums) 500 mg PRN Q3HRS PRN PO INDIGESTION; Start 09/25/21 at 12:30 Diphenhydramine HCl (Benadryl) 25 mg PRN Q6HRS PRN PO ITCHING (1ST CHOICE); Start 09/25/21 at 12:30 Naloxone HCl (Narcan) 0.1 mg PRN Q2MIN PRN IV SEE COMMENTS; Start 09/25/21 at 12:30 Sodium Chloride (Normal Saline Flush) 3 ml QSHIFT PRN IV AFTER MEDS AND BLOOD DRAWS; Start 09/25/21 at 12:30 Potassium Chloride/Sodium Chloride 1,000 ml @ 75 mls/hr [id number] IV Last administered on 09/26/21at 07:00; Start 09/25/21 at 12:30; Stop 09/26/21 at 17:33; Status DC Magnesium Hydroxide (Milk Of Magnesia) 2,400 mg PRN Q12HR PRN PO CONSTIPATION; Start 09/25/21 at 12:30 Cefazolin Sodium (Ancef) 1 gm Q8H IVP Last administered on 09/26/21at 04:14; Start 09/25/21 at 18:00; Stop 09/26/21 at 10:01; Status DC Fentanyl Citrate (Fentanyl 2ml Vial) 50 mcg PRN Q2HR PRN IVP MODERATE TO SEVERE PAIN Last administered on 10/05/21at 22:46; Start 09/25/21 at 12:30 Dextrose (Dextrose 50%-Water Syringe) 12.5 gm PRN Q15MIN PRN IV SEE COMMENTS; Start 09/25/21 at 12:30; Status Cancel Dextrose (Iv Dextrose 5%) 250 ml PRN Q15MIN PRN IV SEE COMMENTS; Start 09/25/21 at 12:30; Status Cancel Gelatin (Gelfoam Size 100) 1 each STK-MED ONCE .ROUTE ; Start 09/25/21 at 06:37; Stop 09/25/21 at 14:55; Status DC Bupivacaine HCl/ Epinephrine Bitart (Sensorcain-Epi 0.5% Kit) 30 ml STK-MED ONCE .ROUTE ; Start 09/25/21 at 06:37; Stop 09/25/21 at 14:55; Status DC Ketorolac Tromethamine (Toradol Im) 60 mg STK-MED ONCE .ROUTE ; Start 09/25/21 at 06:37; Stop 09/25/21 at 14:55; Status DC Thrombin 20,000 unit STK-MED ONCE TP ; Start 09/25/21 at 06:38; Stop 09/25/21 at 14:55; Status DC Propofol (Diprivan) 200 mg STK-MED ONCE IV ; Start 09/25/21 at 05:54; Stop 09/25/21 at 14:57; Status DC Lidocaine HCl (Lidocaine Pf 2% Vial) 5 ml STK-MED ONCE .ROUTE ; Start 09/25/21 at 05:54; Stop 09/25/21 at 14:57; Status DC Ondansetron HCl (Zofran) 4 mg STK-MED ONCE .ROUTE ; Start 09/25/21 at 05:54; Stop 09/25/21 at 14:57; Status DC Phenylephrine HCl (Ramone-Synephrine Inj) 10 mg STK-MED ONCE .ROUTE ; Start 09/25/21 at 05:54; Stop 09/25/21 at 14:57; Status DC Propofol 50 ml @ As Directed STK-MED ONCE IV ; Start 09/25/21 at 05:54; Stop 09/25/21 at 14:57; Status DC Dexamethasone Sodium Phosphate (Decadron) 4 mg STK-MED ONCE .ROUTE ; Start 09/25/21 at 05:54; Stop 09/25/21 at 14:57; Status DC Fentanyl Citrate (Fentanyl 2ml Vial) 100 mcg STK-MED ONCE .ROUTE ; Start 09/25/21 at 05:54; Stop 09/25/21 at 14:57; Status DC Succinylcholine Chloride (Anectine) 200 mg STK-MED ONCE .ROUTE ; Start 09/25/21 at 05:54; Stop 09/25/21 at 14:57; Status DC Remifentanil HCl (Ultiva) 1 mg STK-MED ONCE IV ; Start 09/25/21 at 05:54; Stop 09/25/21 at 14:57; Status DC Glycopyrrolate (Robinul) 1 mg STK-MED ONCE .ROUTE ; Start 09/25/21 at 07:11; Stop 09/25/21 at 15:01; Status DC Propofol 50 ml @ As Directed STK-MED ONCE IV ; Start 09/25/21 at 08:07; Stop 09/25/21 at 15:02; Status DC Ketamine HCl (Ketamine) 50 mg STK-MED ONCE .ROUTE ; Start 09/25/21 at 08:15; Stop 09/25/21 at 15:02; Status DC Hydromorphone HCl (Dilaudid) 2 mg STK-MED ONCE .ROUTE ; Start 09/25/21 at 10:44; Stop 09/25/21 at 15:03; Status DC Fentanyl Citrate (Fentanyl 2ml Vial) 100 mcg STK-MED ONCE .ROUTE ; Start 09/25/21 at 13:26; Stop 09/25/21 at 15:04; Status DC Morphine Sulfate (Morphine Sulfate) 2 mg STK-MED ONCE .ROUTE ; Start 09/25/21 at 14:04; Stop 09/25/21 at 15:05; Status DC Hydromorphone HCl (Dilaudid) 2 mg STK-MED ONCE .ROUTE ; Start 09/25/21 at 14:54; Stop 09/25/21 at 15:06; Status DC Menthol/Methyl Salicylate ([place] Greaseless Cream) 1 crispin PRN Q30MIN PRN TP MUSCLE PAIN Last administered on 10/02/21at 21:03; Start 09/25/21 at 18:45 Mupirocin (Bactroban) 1 crispin BID NS Last administered on 10/12/21at 21:09; Start 09/26/21 at 09:00; Stop 10/13/21 at 07:56; Status DC Dexamethasone Sodium Phosphate (Decadron) 10 mg 1X ONCE IVP Last administered on 09/26/21at 07:31; Start 09/26/21 at 07:30; Stop 09/26/21 at 07:31; Status DC Cefazolin Sodium 1 gm/Sodium Chloride 1,000 ml @ 1,000 mls/hr 1X ONCE IRR Last administered on 09/26/21at 11:52; Start 09/26/21 at 10:30; Stop 09/26/21 at 11:29; Status DC Cefazolin Sodium (Ancef) 1 gm STK-MED ONCE IVP ; Start 09/26/21 at 10:05; Stop 09/26/21 at 10:06; Status DC Lidocaine HCl (Lidocaine Pf 2% Vial) 5 ml STK-MED ONCE .ROUTE ; Start 09/26/21 at 10:18; Stop 09/26/21 at 10:18; Status DC Ondansetron HCl (Zofran) 4 mg STK-MED ONCE .ROUTE ; Start 09/26/21 at 10:18; Stop 09/26/21 at 10:18; Status DC Propofol (Diprivan) 200 mg STK-MED ONCE IV ; Start 09/26/21 at 10:18; Stop 09/26/21 at 10:19; Status DC Dexamethasone Sodium Phosphate (Decadron) 4 mg STK-MED ONCE .ROUTE ; Start at 10:18; Stop 09/26/21 at 10:19; Status DC Sevoflurane (Ultane) 30 ml STK-MED ONCE IH ; Start 09/26/21 at 10:18; Stop 09/26/21 at 10:19; Status DC Fentanyl Citrate (Fentanyl 2ml Vial) 100 mcg STK-MED ONCE .ROUTE ; Start 09/26/21 at 10:19; Stop 09/26/21 at 10:19; Status DC Rocuronium [place] (Zemuron) 50 mg STK-MED ONCE .ROUTE ; Start 09/26/21 at 10:19; Stop 09/26/21 at 10:19; Status DC Insulin Human Lispro (HumaLOG VIAL for OP,RR ONLY) 0-10 units PRN Q1HR PRN SQ PER PROTOCOL Last administered on 09/26/21at 15:11; Start 09/26/21 at 10:30; Stop 09/26/21 at 18:00; Status DC Sugammadex Sodium (Bridion) 200 mg 1X ONCE IVP Last administered on 09/26/21at 10:30; Start 09/26/21 at 10:30; Stop 09/26/21 at 10:31; Status DC Gelatin (Gelfoam Size 100) 1 each STK-MED ONCE .ROUTE Last administered on 09/26/21at 11:52; Start 09/26/21 at 10:30; Stop 09/26/21 at 10:30; Status DC Bupivacaine HCl/ Epinephrine Bitart (Sensorcain-Epi 0.5% Kit) 30 ml STK-MED ONCE .ROUTE ; Start 09/26/21 at 10:30; Stop 09/26/21 at 10:30; Status DC Ketorolac Tromethamine (Toradol Im) 60 mg STK-MED ONCE .ROUTE ; Start 09/26/21 at 10:30; Stop 09/26/21 at 10:30; Status DC Thrombin 20,000 unit STK-MED ONCE TP Last administered on 09/26/21at 11:52; Start 09/26/21 at 10:30; Stop 09/26/21 at 10:31; Status DC Cefazolin Sodium/ Dextrose 50 ml @ As Directed STK-MED ONCE IV ; Start 09/26/21 at 10:32; Stop 09/26/21 at 10:32; Status DC Vancomycin HCl 1 gm/Sodium Chloride 250 ml @ 250 mls/hr PREOP PRN PRN IV PRIOR TO PROCEDURE; Start 09/26/21 at 10:45; Stop 09/26/21 at 14:00; Status DC Cefazolin Sodium/ Dextrose 50 ml @ 100 mls/hr 1X ONCE IV Last administered on 09/26/21at 11:00; Start 09/26/21 at 11:00; Stop 09/26/21 at 11:29; Status DC Dexamethasone Sodium Phosphate (Decadron) 4 mg STK-MED ONCE .ROUTE ; Start 09/26/21 at 11:04; Stop 09/26/21 at 11:04; Status DC Glycopyrrolate (Robinul) 1 mg STK-MED ONCE .ROUTE ; Start 09/26/21 at 11:04; Stop 09/26/21 at 11:04; Status DC Hydromorphone HCl (Dilaudid) 2 mg STK-MED ONCE .ROUTE ; Start 09/26/21 at 11:56; Stop 09/26/21 at 11:56; Status DC Fentanyl Citrate (Fentanyl 2ml Vial) 25 mcg PRN Q5MIN PRN IVP MILD PAIN 1-3; Start 09/26/21 at 14:30; Stop 09/26/21 at 18:15; Status DC Fentanyl Citrate (Fentanyl 2ml Vial) 50 mcg PRN Q5MIN PRN IVP MODERATE PAIN 4- 6; Start 09/26/21 at 14:30; Stop 09/26/21 at 18:15; Status DC Morphine Sulfate (Morphine Sulfate) 1 mg PRN Q10MIN PRN IVP SEVERE PAIN 7-10; Start 09/26/21 at 14:30; Stop 09/26/21 at 18:15; Status DC Ringer's Solution 1,000 ml @ 30 mls/hr Q24H IV Last administered on 09/26/21at 15:18; Start 09/26/21 at 14:30; Stop 09/26/21 at 21:00; Status DC Hydromorphone HCl (Dilaudid) 0.5 mg PRN Q10MIN PRN IVP SEVERE PAIN 7-10, 2nd CHOICE; Start 09/26/21 at 14:30; Stop 09/26/21 at 18:15; Status DC Prochlorperazine Edisylate (Compazine) 5 mg PACU PRN PRN IVP NAUSEA, MRX1; Start 09/26/21 at 14:30; Stop 09/26/21 at 21:00; Status DC Fentanyl Citrate (Fentanyl 2ml Vial) 100 mcg STK-MED ONCE .ROUTE ; Start 09/26/21 at 14:23; Stop 09/26/21 at 14:25; Status DC Fentanyl Citrate (Fentanyl 2ml Vial) 25 mcg PRN Q5MIN PRN IVP MILD PAIN 1-3; Start 09/26/21 at 14:30; Stop 09/27/21 at 14:29; Status UNV Fentanyl Citrate (Fentanyl 2ml Vial) 50 mcg PRN Q5MIN PRN IVP MODERATE PAIN 4- 6; Start 09/26/21 at 14:30; Stop 09/27/21 at 14:29; Status UNV Morphine Sulfate (Morphine Sulfate) 1 mg PRN Q10MIN PRN IVP SEVERE PAIN 7-10; Start 09/26/21 at 14:30; Stop 09/27/21 at 14:29; Status UNV Ringer's Solution 1,000 ml @ 30 mls/hr Q24H IV ; Start 09/26/21 at 14:30; Stop 09/27/21 at 02:29; Status UNV Hydromorphone HCl (Dilaudid) 0.5 mg PRN Q10MIN PRN IVP SEVERE PAIN 7-10, 2nd CHOICE; Start 09/26/21 at 14:30; Stop 09/27/21 at 14:29; Status UNV Prochlorperazine Edisylate (Compazine) 5 mg PACU PRN PRN IVP NAUSEA, MRX1; Start 09/26/21 at 14:30; Stop 09/27/21 at 14:29; Status UNV Dexamethasone Sodium Phosphate (Decadron) 4 mg Q6HRS IVP Last administered on 09/28/21at 05:06; Start 09/26/21 at 18:00; Stop 09/28/21 at 06:00; Status DC Sodium Chloride 1,000 ml @ 100 mls/hr Q10H IV Last administered on 10/05/21at 06:41; Start 09/26/21 at 17:30; Stop 10/05/21 at 13:48; Status DC Cefazolin Sodium (Ancef) 1 gm Q8HRS IVP ; Start 09/27/21 at 06:00; Stop 09/27/21 at 05:47; Status DC Vancomycin HCl 1 gm/Sodium Chloride 250 ml @ 166.667 mls/hr 1X ONCE IV Last administered on 09/27/21at 06:27; Start 09/27/21 at 06:00; Stop 09/27/21 at 07:29; Status DC Gadoterate Meglumine (Clariscan) 19 ml 1X ONCE IVP Last administered on 09/29/21at 10:32; Start 09/29/21 at 08:15; Stop 09/29/21 at 08:17; Status DC Bisacodyl (Dulcolax Supp) 10 mg PRN DAILY PRN RI CONSTIPATION; Start 09/29/21 at 14:15 Lactulose (Lactulose) 20 gm PRN DAILY PRN PO CONSTIPATION, 2nd choice Last administered on 10/01/21at 08:35; Start 09/29/21 at 14:30 Ascorbic Acid (Vitamin C) 500 mg DAILY PO Last administered on 10/23/21at 08:26; Start 10/02/21 at 10:00 Levofloxacin/ Dextrose 100 ml @ 100 mls/hr Q24H IV Last administered on 10/02/21at 12:15; Start 10/02/21 at 12:00; Stop 10/03/21 at 08:57; Status DC Levofloxacin/ Dextrose 50 ml @ 50 mls/hr Q24H IV Last administered on 10/06/21at 15:19; Start 10/03/21 at 12:00; Stop 10/06/21 at 23:00; Status DC Lactobacillus Rhamnosus (Culturelle) 1 cap BID PO Last administered on 10/23/21at 08:26; Start 10/03/21 at 21:00 Lidocaine (Lidoderm) 1 patch QHS TP Last administered on 10/22/21at 21:18; Start 10/04/21 at 22:00 Levofloxacin (Levaquin) 250 mg DAILY06 PO Last administered on 10/11/21at 06:13; Start 10/07/21 at 06:00; Stop 10/11/21 at 12:00; Status DC Insulin Human Lispro (HumaLOG) 0-5 UNITS TIDWMEALS SQ Last administered on 10/18/21at 12:16; Start 10/12/21 at 08:00; Stop 10/19/21 at 15:15; Status DC Dextrose (Dextrose 50%-Water Syringe) 12.5 gm PRN Q15MIN PRN IV SEE COMMENTS; Start 10/11/21 at 19:00 Dextrose (Iv Dextrose 5%) 250 ml PRN Q15MIN PRN IV SEE COMMENTS; Start 10/11/21 at 19:00 Potassium Chloride (Klor-Con) 40 meq 1X ONCE PO Last administered on 10/15/21at 10:21; Start 10/15/21 at 10:30; Stop 10/15/21 at 10:31; Status DC Magnesium Sulfate 50 ml @ 25 mls/hr 1X ONCE IV Last administered on 10/15/21at 10:20; Start 10/15/21 at 10:30; Stop 10/15/21 at 12:29; Status DC Baclofen (Lioresal) 10 mg Q8HRS PO Last administered on 10/17/21at 06:02; Start 10/16/21 at 22:00; Stop 10/17/21 at 11:58; Status DC Baclofen (Lioresal) 10 mg Q6HRS PO Last administered on 10/23/21at 06:23; Start 10/17/21 at 12:00 Triamcinolone Acetonide (Kenalog-40) 40 mg 1X ONCE IM Last administered on 10/17/21at 12:15; Start 10/17/21 at 12:15; Stop 10/17/21 at 12:16; Status DC Bupivacaine HCl (Sensorcaine-Mpf 0.25%) 10 ml 1X ONCE IJ Last administered on 10/17/21at 12:00; Start 10/17/21 at 12:00; Stop 10/17/21 at 12:01; Status DC Magnesium Sulfate 100 ml @ 25 mls/hr 1X ONCE IV Last administered on 10/18/21at 14:11; Start 10/18/21 at 14:30; Stop 10/18/21 at 18:29; Status DC Vitamin B Complex (Folbic Tablet) 1 tab DAILY PO Last administered on 10/23/21at 08:26; Start 10/18/21 at 14:30 Non-Formulary Medication (L-Carnitine 500 Mg Capsule) 1 ea DAILY PO Last administered on 10/20/21at 08:54; Start 10/19/21 at 13:00 Insulin Human Lispro (HumaLOG) 0-5 UNITS PRN BFRMEAL PRN SQ SEE ADMIN INSTRUCTIONS Last administered on 10/22/21at 12:46; Start 10/19/21 at 15:15 Oxycodone HCl (Roxicodone) 5 mg PRN Q3HRS PRN PO MODERATE-SEVERE PAIN Last ad ministered on 10/23/21at 02:09; Start 10/22/21 at 16:30 Diazepam (Valium) 5 mg PRN TID PRN PO ANXIETY Last administered on 10/23/21at 00:05; Start 10/22/21 at 19:30 Active Scripts Active Dok (Docusate Sodium) 100 Mg Capsule 100 Mg PO PRN BID PRN 30 Days Tylenol (Acetaminophen) 325 Mg Tablet 650 Mg PO PRN Q4HRS PRN 30 Days Valium (Diazepam) 5 Mg Tablet 5 Mg PO TID Atorvastatin Calcium 10 Mg Tablet 10 Mg PO QHS Reported Midodrine Hcl 2.5 Mg Tablet 2.5 Mg PO PRN 1X PRN Aspirin 81 Mg Tab.chew 81 Mg PO DAILY Baclofen 10 Mg Tablet 10 Mg PO BID Lyrica (Pregabalin) 100 Mg Capsule 100 Mg PO BID 30 Days Polyethylene Glycol 3350 2,500 Gm Powder 17 Gm PO DAILY 30 Days Micatin (Miconazole Nitrate) 14 Gm Cream..g. 1 [place] TP TID Tradjenta (Linagliptin) 5 Mg Tablet 5 Mg PO DAILY Lidocaine PATCH (Lidocaine) 1 Each Adh..patch 1 Each TP DAILY REMOVE AFTER 12 HOURS Levemir (Insulin Detemir) 100 Unit/1 Ml Vial 4 Unit SQ HS Hydroxyzine Hcl 25 Mg Tablet 25 Mg PO PRN Q6HRS PRN Fluticasone Propionate Nasal [place] (Fluticasone Propionate) 16 Gm [place].susp 2 [place] NS DAILY Diclofenac Sodium 100 Gm Gel..gram. 100 Gm TP PRN TID PRN Losartan Potassium 100 Mg Tablet 25 Tab PO DAILY08 Vitals/I & O Vital Sign - Last 24 Hours 10/22/21 10/22/21 10/22/21 10/22/21 11:00 12:35 13:05 15:00 Temp 97.4 97.4 Pulse 81 83 Resp 21 21 B/P (MAP) 146/66 (92) 160/75 (103) Pulse Ox 97 96 O2 Delivery Room Air Room Air Room Air Room Air 10/22/21 10/22/21 10/22/21 10/22/21 16:59 17:29 19:00 20:00 Temp 98.1 98.1 Pulse 85 Resp 20 B/P (MAP) 140/71 (94) Pulse Ox 96 O2 Delivery Room Air Room Air Room Air Room Air 10/22/21 10/22/21 10/22/21 10/23/21 21:17 21:47 23:00 02:09 Temp 98.2 98.2 Pulse 87 Resp 20 20 20 18 B/P (MAP) 142/70 (94) Pulse Ox 95 O2 Delivery Room Air Room Air Room Air 10/23/21 10/23/21 10/23/21 10/23/21 02:39 03:43 07:15 08:26 Temp 98.3 98.6 98.3 98.6 Pulse 84 74 74 Resp 18 20 16 B/P (MAP) 116/52 (73) 107/52 (70) 107/52 Pulse Ox 96 95 O2 Delivery Room Air Room Air Room Air Intake and Output 10/22/21 10/22/21 10/23/21 15:00 23:00 07:00 Intake Total 200 ml 200 ml Output Total 400 ml 1051 ml Balance -200 ml -851 ml Justicifation of Admission Dx: Justifications for Admission: Justification of Admission Dx: Yes RICH HUGGINS MD Oct 23, 2021 09:13
--- NOTE | 2021-10-23 10:43 | PDOC ---
[employer] PROGRESS NOTE Date of Service DOS: DATE: 10/23/21 TIME: 10:41 Chief Complaint Chief Complaint Cervical spinal cord injury - Concern for C5 cord edema, cord compression, a right lateral C5 fracture, and concern for numerous ligamentous injuries. 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 S/p decompression 07/26/2021 and repeat surgeries 09/25 and 09/26 Diabetes - sliding scale plus basal HTN - prn hydralazine HLD - statin when taking PO Cervical laminectomy as per above, diabetes, hypertension, hyperlipidemia, arthritis, GERD, left knee arthroplasty and TIA S/p; IVC filter FEN - ADAT PPX - SCDs FULL CODE Dispo - Inpatient History of Present Illness History of Present Illness 10/23/2021 No acute events overnight. Patient seen examined bedside. Resting comfortably. No complaints at this time. No concerns from nursing. Pending neuro rehab placement. Patient's chart, labs, images were reviewed and discussed with RN 10/22/2021 Patient seen and examined bedside. No complaints today. 10/21/2021 No acute events overnight. Patient seen examined bedside. Still working with PT OT and pending neuro rehab placement. Insurance issues still pending. Complaining of weakness is about the same and having pain in his extremities that have somewhat improved. 3 [phone] No acute events overnight. Patient seen examined bedside. Injection received in right shoulder with Dr. JURADO. Patient tolerated procedure well. Spasms have improved. Pending placement to neuro rehab as a possibility. Patient's chart, labs, images were reviewed and discussed with RN 10/19/2021 No acute events overnight. Patient seen examined bedside. Spasms have improved and pain overall has improved after adjustment with baclofen. Continuing with rehab modalities. Patient's chart, labs, images were reviewed and discussed with RN 3/2: Right shoulder radiograph with some degenerative changes. Had some spasming this morning, but feeling better currently. Mag 1.6. Discussed addition of B6, 9, 12 and needs for complex neuro rehab. 10/17/2021 No acute events overnight. Patient seen examined bedside. Still complaining of muscle spasms. Baclofen has been increased. He is already on Valium and Lyrica. Considering neurology consult for evaluation. Pending right shoulder x-ray. Patient's chart, labs, images were reviewed and discussed with RN 10/16: Seen in ICU notes spasming started again last night this happened about 6 times even when he tries to reach up and scratch his eyelid. Having some more pain in his right biceps and left Achilles area. 10/15: Seen bedside in ICU getting bed bath. Says his spasming is improved today having a little bit of shortness of breath but no cough. No chest pain. 10/14: Seen bedside in ICU. Still with spasming upon awakening in his hands and feet still with some weakness in his left foot. Poor appetite. 10/13: Patient seen and examined. Discussed with neurosurgery nurse practitioner Roberta 10/12: Patient seen and examined 10/11: Patient seen and examined. His discharge was held again as he was not accepted at [facility] 10/09: His sister is here as well discussed with her. Plan is to get the patient to [facility] care home if they accept him 10/08: Patient seen and examined. He is moving his toes more each day 10/07: Patient seen and examined in the ICU (he is actually in overfull patient). He is working with his nurse to try to use his nurse button and remote control. Started to move his toes a little bit 10/06/2021 Patient seen and examined in the ICU I discussed the case with his sister again I also discussed the case with case management [facility] rehab may consider taking him after all now that he is improved over the past 3 days 10/05/2021 Patient seen and examined in the ICU His nurses are starting to get ready to clean him up His sister is present Discussed with RN Discussed with case management we are still awaiting [facility] transfer if it can be arranged 10/04/2021 Patient seen and examined again in the ICU He remains very weak cannot move his legs was able to move his hands His sister is present I called case management they are checking into possibly if he could go to [facility] Chart reviewed 10/03/2021 Patient seen and examined in the ICU Chart reviewed Discussed with RN Called case management We are hoping to get the patient transferred to [facility] rehab if possible (they are evaluating his admission criteria to rehab) 10/02/2021 Patient seen and examined in the ICU He is still unable to move his legs He is able to move his hands and arms slightly but is very weak at bedside Chart reviewed Discussed with RN I called case management to see if maybe he could go to [facility] rehab sometime soon 10/01 Patient evaluated examined at bedside. Continues to improve. Continue rehab. Plan discussed with bedside RN. 09/30 Patient evaluated examined at bedside. Clinically about the same from yesterday. Continue rehab modalities. Labs stable. Plan discussed with bedside RN. 09/29 Patient evaluated at bedside. Underwent MRI this morning. Symptoms very similar to yesterday but he feels like he is regaining some function. Pain controlled. PT OT. Hemoglovin stable. 09/28 Evaluate examined at bedside. Resting in bed had no complaints to me. Said pain is quite improved. Did okay with transfusion yesterday. Continue current treatments. PT/OT. Discussed with bedside RN. Roxi 09/27 Patient evaluated examined at bedside. Was resting in bed easily awoken able to answer some questions. Some movement in his upper extremities but very limited in lower. Transfuse 1 unit today. Plan discussed with RN. Mr Terrell is a 60-year-old male w/ PMHx prediabetes, HLD, HTN and recent fall in July 2021 with cervical myelopathy and s/p cervical decompression with ACDF C5-6 07/26/2021 On 09/25/21 underwent cervical laminectomy, C3, C4, C5, C6, partial C7 with lateral mass fusion C3 through C7, Posterior nstrumentation C3-C7 on the left and posterior instrumentation C-C6 on the right. On 09/26/21 returned to OR for cervical hematoma evacuation. Vitals/I&O Vitals/I&O: Vital Signs Date Time Temp Pulse Resp B/P (MAP) Pulse Ox O2 Delivery O2 Flow Rate FiO2 10/23/21 10:07 Room Air 10/23/21 08:26 74 107/52 10/23/21 07:15 98.6 16 95 98.6 I & O 10/22/21 10/22/21 10/23/21 15:00 23:00 07:00 Intake Total 200 ml 200 ml Output Total 400 ml 1051 ml Balance -200 ml -851 ml Physical Exam General: Alert, Cooperative Heart: Regular rate Lungs: Clear Abdomen: Normal bowel sounds, Soft, No tenderness Extremities: No edema, Normal pulses Skin: Other (incision healing well) Labs Labs: Laboratory Tests Test 10/22/21 11:46 10/22/21 16:52 10/23/21 07:39 Glucose (Fingerstick) 191 mg/dL (70-99) 114 mg/dL (70-99) 128 mg/dL (70-99) Comment Review of Relevant I have reviewed the following items michelle (where applicable) has been applied. Medications: Current Medications Medications (Trade) Dose Ordered Sig/Vernon Route PRN Reason Start Time Stop Time Status Last Admin Dose Admin Oxycodone HCl (Roxicodone) 5 mg PRN Q3HRS PRN PO MODERATE-SEVERE PAIN 10/22/21 16:30 10/23/21 09:37 Diazepam (Valium) 5 mg PRN TID PRN PO ANXIETY 10/22/21 19:30 10/23/21 00:05 Justifications for Admission Other Justification uncontrolled diabetes SHANICE TAYLOR MD Oct 23, 2021 10:43
[2021-10-23 11:00] VITALS: BP 116/57
[2021-10-23 15:01] VITALS: BP 153/70
--- NOTE | 2021-10-23 16:57 | PDOC ---
PROGRESS NOTES Date of Service DATE: 10/23/21 TIME: 16:55 Subjective Subjective POD #27 S/P Evacuation of epidural hematoma, s/p cervical laminectomy and fusion 09/25/21 some pain in hands, they feel cold Objective Objective Vital Signs Date Time Temp Pulse Resp B/P (MAP) Pulse Ox O2 Delivery O2 Flow Rate FiO2 10/23/21 15:01 97.9 81 18 153/70 (97) 94 Room Air 97.9 10/21/21 08:00 2.0 Intake and Output 10/23/21 07:00 Intake Total 400 ml Output Total 1451 ml Balance -1051 ml Intake Oral 400 ml Output Urine Total 1450 ml Stool Total 1 ml Physical Exam General: Alert, Oriented X3, Cooperative, No acute distress Neuro: Normal speech, Other (3/5 distal arms, 4/5 left shoulder, 5/5 right shoulder, trace hip adduction bilaterally and trace right hip extension) Skin: Other Plan Plan of Care PT/ OT SCDs awaiting placement D/W sister Comment Review of Relevant I have reviewed the following items michelle (where applicable) has been applied. Labs Laboratory Tests Test 10/21/21 17:04 10/22/21 07:15 10/22/21 11:46 10/22/21 16:52 Glucose (Fingerstick) 161 mg/dL (70-99) 153 mg/dL (70-99) 191 mg/dL (70-99) 114 mg/dL (70-99) Test 10/23/21 07:39 10/23/21 11:24 10/23/21 16:43 Glucose (Fingerstick) 128 mg/dL (70-99) 157 mg/dL (70-99) 186 mg/dL (70-99) Laboratory Tests Test 10/23/21 07:39 10/23/21 11:24 10/23/21 16:43 Glucose (Fingerstick) 128 mg/dL (70-99) 157 mg/dL (70-99) 186 mg/dL (70-99) Microbiology 10/01/21 Urine Culture - Final, Complete Escherichia Coli Escherichia Coli#2 Medications Current Medications Fentanyl Citrate (Fentanyl 2ml Vial) 25 mcg PRN Q5MIN PRN IVP MILD PAIN 1-3; Start 09/25/21 at 06:00; Stop 09/25/21 at 20:00; Status DC Fentanyl Citrate (Fentanyl 2ml Vial) 50 mcg PRN Q5MIN PRN IVP MODERATE PAIN 4-6 Last administered on 09/25/21at 13:48; Start 09/25/21 at 06:00; Stop 09/25/21 at 20:00; Status DC Morphine Sulfate (Morphine Sulfate) 1 mg PRN Q10MIN PRN IVP SEVERE PAIN 7-10 Last administered on 09/25/21at 14:21; Start 09/25/21 at 06:00; Stop 09/25/21 at 20:00; Status DC Ringer's Solution 1,000 ml @ 30 mls/hr Q24H IV Last administered on 09/25/21at 12:54; Start 09/25/21 at 06:00; Stop 09/25/21 at 17:59; Status DC Hydromorphone HCl (Dilaudid) 0.5 mg PRN Q10MIN PRN IVP SEVERE PAIN 7-10, 2nd CHOICE Last administered on 09/25/21at 16:53; Start 09/25/21 at 06:00; Stop 09/25/21 at 20:00; Status DC Prochlorperazine Edisylate (Compazine) 5 mg PACU PRN PRN IVP NAUSEA, MRX1; Start 09/25/21 at 06:00; Stop 09/25/21 at 20:00; Status DC Cefazolin Sodium 1 gm/Sodium Chloride 1,000 ml @ 1,000 mls/hr 1X ONCE IRR Last administered on 09/25/21at 10:14; Start 09/25/21 at 06:00; Stop 09/25/21 at 06:59; Status DC Cefazolin Sodium/ Dextrose 50 ml @ 100 mls/hr 1X PREOP PRN IV PRIOR TO PROCEDURE Last administered on 09/25/21at 09:30; Start 09/25/21 at 06:00; Stop 09/25/21 at 13:39; Status DC Insulin Human Lispro (HumaLOG VIAL for OP,RR ONLY) 0-10 units PRN Q1HR PRN SQ PER PROTOCOL Last administered on 09/25/21at 17:01; Start 09/25/21 at 07:00; Stop 09/25/21 at 18:00; Status DC Bupivacaine HCl/ Epinephrine Bitart (Sensorcain-Epi 0.5% Kit) 30 ml STK-MED ONCE INJ Last administered on 09/25/21at 10:14; Start 09/25/21 at 10:14; Stop 09/25/21 at 10:30; Status DC Ketorolac Tromethamine (Toradol Im) 60 mg STK-MED ONCE INJ Last administered on 09/25/21at 10:14; Start 09/25/21 at 10:14; Stop 09/25/21 at 10:30; Status DC Thrombin 20,000 unit STK-MED ONCE TP Last administered on 09/25/21at 10:14; Start 09/25/21 at 10:14; Stop 09/25/21 at 10:30; Status DC Gelatin (Gelfoam Size 100) 1 each STK-MED ONCE TP Last administered on 09/25/21 t 10:14; Start 09/25/21 at 10:14; Stop 09/25/21 at 10:30; Status DC Acetaminophen (Tylenol) 650 mg PRN Q4HRS PRN PO TEMP OVER 100.4F OR MILD PAIN Last administered on 10/23/21at 03:52; Start 09/25/21 at 12:30 Aspirin (Aspirin Chewable) 81 mg DAILY PO Last administered on 09/26/21 08:30; Start 09/26/21 at 09:00; Stop 09/28/21 at 17:19; Status DC Atorvastatin Calcium (Lipitor) 10 mg QHS PO Last administered on 10/22/21 21:16; Start 09/25/21 at 21:00 Baclofen (Lioresal) 10 mg BID PO Last administered on 10/16/21at 08:26; Start 09/25/21 at 21:00; Stop 10/16/21 at 13:21; Status DC Diazepam (Valium) 5 mg TID PO Last administered on 10/22/21 12:35; Start 09/25/21 at 14:00; Stop 10/22/21 at 19:23; Status DC Docusate Sodium (Colace) 100 mg PRN BID PRN PO HARD STOOLS Last administered on 10/15/21at 10:22; Start 09/25/21 at 12:30 Fluticasone Propionate (Flonase) 2 spray DAILY NS Last administered on 10/17/21at 12:58; Start 09/26/21 at 09:00 Hydroxyzine HCl (Atarax) 25 mg PRN Q6HRS PRN PO Itching (2ND Choice) Last administered on 10/22/21 23:07; Start 09/25/21 at 12:30 Lidocaine (Lidoderm) 1 patch QHS TP Last administered on 10/03/21 23:31; Start 09/25/21 at 20:00; Stop 10/05/21 at 01:01; Status DC Linagliptin (Tradjenta) 5 mg DAILY PO Last administered on 10/23/21at 08:26; Start 09/25/21 at 13:00 Miconazole Nitrate (Monistat-Derm) 1 crispin TID TP Last administered on 10/04/21at 20:08; Start 09/25/21 at 21:00; Stop 10/05/21 at 13:23; Status DC Midodrine (Proamatine) 2.5 mg PRN 1X PRN PO hypotension Last administered on 09/27/21at 08:56; Start 09/25/21 at 12:30 Oxycodone HCl (Roxicodone) 10 mg PRN Q6HRS PRN PO MODERATE-SEVERE PAIN Last administered on 10/22/21at 12:35; Start 09/25/21 at 12:30; Stop 10/22/21 at 16:20; Status DC Diclofenac Sodium (Voltaren) 1 crispin PRN TID PRN TP PAIN CONTROL; Start 09/25/21 at 13:15; Stop 09/25/21 at 18:37; Status DC Insulin Glargine (Lantus Syringe) 4 unit QHS SQ Last administered on 10/22/21at 21:25; Start 09/25/21 at 21:00 Losartan Potassium (Cozaar) 25 mg DAILY08 PO Last administered on 10/23/21at 08:26; Start 09/26/21 at 08:00 Polyethylene Glycol (miraLAX PACKET) 17 gm DAILY PO Last administered on 10/13/21 08:53; Start 09/25/21 at 14:00 Pregabalin (Lyrica) 100 mg BID PO Last administered on 10/23/21at 08:27; Start 09/25/21 at 21:00 Acetaminophen (Tylenol) 650 mg PRN Q6HRS PRN PO MILD PAIN / TEMP > 100.3'F; Start 09/25/21 at 12:30; Status Cancel Al Hydroxide/Mg Hydroxide (Mylanta Plus Xs) 30 ml PRN Q3HRS PRN PO HEARTBURN / GAS; Start 09/25/21 at 12:30 Calcium Carbonate/ Glycine (Tums) 500 mg PRN Q3HRS PRN PO INDIGESTION; Start 09/25/21 at 12:30 Diphenhydramine HCl (Benadryl) 25 mg PRN Q6HRS PRN PO ITCHING (1ST CHOICE); Start 09/25/21 at 12:30 Naloxone HCl (Narcan) 0.1 mg PRN Q2MIN PRN IV SEE COMMENTS; Start 09/25/21 at 12:30 Sodium Chloride (Normal Saline Flush) 3 ml QSHIFT PRN IV AFTER MEDS AND BLOOD DRAWS; Start 09/25/21 at 12:30 Potassium Chloride/Sodium Chloride 1,000 ml @ 75 mls/hr [id number] IV Last administered on 09/26/21at 07:00; Start 09/25/21 at 12:30; Stop 09/26/21 at 17:33; Status DC Magnesium Hydroxide (Milk Of Magnesia) 2,400 mg PRN Q12HR PRN PO CONSTIPATION; Start 09/25/21 at 12:30 Cefazolin Sodium (Ancef) 1 gm Q8H IVP Last administered on 09/26/21at 04:14; Start 09/25/21 at 18:00; Stop 09/26/21 at 10:01; Status DC Fentanyl Citrate (Fentanyl 2ml Vial) 50 mcg PRN Q2HR PRN IVP MODERATE TO SEVERE PAIN Last administered on 10/05/21at 22:46; Start 09/25/21 at 12:30 Dextrose (Dextrose 50%-Water Syringe) 12.5 gm PRN Q15MIN PRN IV SEE COMMENTS; Start 09/25/21 at 12:30; Status Cancel Dextrose (Iv Dextrose 5%) 250 ml PRN Q15MIN PRN IV SEE COMMENTS; Start 09/25/21 at 12:30; Status Cancel Gelatin (Gelfoam Size 100) 1 each STK-MED ONCE .ROUTE ; Start 09/25/21 at 06:37; Stop 09/25/21 at 14:55; Status DC Bupivacaine HCl/ Epinephrine Bitart (Sensorcain-Epi 0.5% Kit) 30 ml STK-MED ONCE .ROUTE ; Start 09/25/21 at 06:37; Stop 09/25/21 at 14:55; Status DC Ketorolac Tromethamine (Toradol Im) 60 mg STK-MED ONCE .ROUTE ; Start 09/25/21 at 06:37; Stop 09/25/21 at 14:55; Status DC Thrombin 20,000 unit STK-MED ONCE TP ; Start 09/25/21 at 06:38; Stop 09/25/21 at 14:55; Status DC Propofol (Diprivan) 200 mg STK-MED ONCE IV ; Start 09/25/21 at 05:54; Stop 2 at 14:57; Status DC Lidocaine HCl (Lidocaine Pf 2% Vial) 5 ml STK-MED ONCE .ROUTE ; Start 09/25/21 at 05:54; Stop 09/25/21 at 14:57; Status DC Ondansetron HCl (Zofran) 4 mg STK-MED ONCE .ROUTE ; Start 09/25/21 at 05:54; Stop 09/25/21 at 14:57; Status DC Phenylephrine HCl (Ramone-Synephrine Inj) 10 mg STK-MED ONCE .ROUTE ; Start 09/25/21 at 05:54; Stop 09/25/21 at 14:57; Status DC Propofol 50 ml @ As Directed STK-MED ONCE IV ; Start 09/25/21 at 05:54; Stop 09/25/21 at 14:57; Status DC Dexamethasone Sodium Phosphate (Decadron) 4 mg STK-MED ONCE .ROUTE ; Start 09/25/21 at 05:54; Stop 09/25/21 at 14:57; Status DC Fentanyl Citrate (Fentanyl 2ml Vial) 100 mcg STK-MED ONCE .ROUTE ; Start 09/25/21 at 05:54; Stop 09/25/21 at 14:57; Status DC Succinylcholine Chloride (Anectine) 200 mg STK-MED ONCE .ROUTE ; Start 09/25/21 at 05:54; Stop 09/25/21 at 14:57; Status DC Remifentanil HCl (Ultiva) 1 mg STK-MED ONCE IV ; Start 09/25/21 at 05:54; Stop 09/25/21 at 14:57; Status DC Glycopyrrolate (Robinul) 1 mg STK-MED ONCE .ROUTE ; Start 09/25/21 at 07:11; Stop 09/25/21 at 15:01; Status DC Propofol 50 ml @ As Directed STK-MED ONCE IV ; Start 09/25/21 at 08:07; Stop 09/25/21 at 15:02; Status DC Ketamine HCl (Ketamine) 50 mg STK-MED ONCE .ROUTE ; Start 09/25/21 at 08:15; Stop 09/25/21 at 15:02; Status DC Hydromorphone HCl (Dilaudid) 2 mg STK-MED ONCE .ROUTE ; Start 09/25/21 at 10:44; Stop 09/25/21 at 15:03; Status DC Fentanyl Citrate (Fentanyl 2ml Vial) 100 mcg STK-MED ONCE .ROUTE ; Start 09/25/21 at 13:26; Stop 09/25/21 at 15:04; Status DC Morphine Sulfate (Morphine Sulfate) 2 mg STK-MED ONCE .ROUTE ; Start 09/25/21 at 14:04; Stop 09/25/21 at 15:05; Status DC Hydromorphone HCl (Dilaudid) 2 mg STK-MED ONCE .ROUTE ; Start 09/25/21 at 14:54; Stop 09/25/21 at 15:06; Status DC Menthol/Methyl Salicylate ([place] Greaseless Cream) 1 crispin PRN Q30MIN PRN TP MUSCLE PAIN Last administered on 10/02/21at 21:03; Start 09/25/21 at 18:45 Mupirocin (Bactroban) 1 crispin BID NS Last administered on 10/12/21at 21:09; Start 09/26/21 at 09:00; Stop 10/13/21 at 07:56; Status DC Dexamethasone Sodium Phosphate (Decadron) 10 mg 1X ONCE IVP Last administered on 09/26/21at 07:31; Start 09/26/21 at 07:30; Stop 09/26/21 at 07:31; Status DC Cefazolin Sodium 1 gm/Sodium Chloride 1,000 ml @ 1,000 mls/hr 1X ONCE IRR Last administered on 09/26/21at 11:52; Start 09/26/21 at 10:30; Stop 09/26/21 at 11:29; Status DC Cefazolin Sodium (Ancef) 1 gm STK-MED ONCE IVP ; Start 09/26/21 at 10:05; Stop 09/26/21 at 10:06; Status DC Lidocaine HCl (Lidocaine Pf 2% Vial) 5 ml STK-MED ONCE .ROUTE ; Start 09/26/21 at 10:18; Stop 09/26/21 at 10:18; Status DC Ondansetron HCl (Zofran) 4 mg STK-MED ONCE .ROUTE ; Start 09/26/21 at 10:18; Stop 09/26/21 at 10:18; Status DC Propofol (Diprivan) 200 mg STK-MED ONCE IV ; Start 09/26/21 at 10:18; Stop 09/26/21 at 10:19; Status DC Dexamethasone Sodium Phosphate (Decadron) 4 mg STK-MED ONCE .ROUTE ; Start 09/26/21 at 10:18; Stop 09/26/21 at 10:19; Status DC Sevoflurane (Ultane) 30 ml STK-MED ONCE IH ; Start 09/26/21 at 10:18; Stop 09/26/21 at 10:19; Status DC Fentanyl Citrate (Fentanyl 2ml Vial) 100 mcg STK-MED ONCE .ROUTE ; Start 09/26/21 at 10:19; Stop 09/26/21 at 10:19; Status DC Rocuronium [place] (Zemuron) 50 mg STK-MED ONCE .ROUTE ; Start 09/26/21 at 10:19; Stop 09/26/21 at 10:19; Status DC Insulin Human Lispro (HumaLOG VIAL for OP,RR ONLY) 0-10 units PRN Q1HR PRN SQ PER PROTOCOL Last administered on 09/26/21at 15:11; Start 09/26/21 at 10:30; Stop 09/26/21 at 18:00; Status DC Sugammadex Sodium (Bridion) 200 mg 1X ONCE IVP Last administered on 09/26/21at 10:30; Start 09/26/21 at 10:30; Stop 09/26/21 at 10:31; Status DC Gelatin (Gelfoam Size 100) 1 each STK-MED ONCE .ROUTE Last administered on 09/26/21at 11:52; Start 09/26/21 at 10:30; Stop 09/26/21 at 10:30; Status DC Bupivacaine HCl/ Epinephrine Bitart (Sensorcain-Epi 0.5% Kit) 30 ml STK-MED ONCE .ROUTE ; Start 09/26/21 at 10:30; Stop 09/26/21 at 10:30; Status DC Ketorolac Tromethamine (Toradol Im) 60 mg STK-MED ONCE .ROUTE ; Start 09/26/21 at 10:30; Stop 09/26/21 at 10:30; Status DC Thrombin 20,000 unit STK-MED ONCE TP Last administered on 09/26/21at 11:52; Start 09/26/21 at 10:30; Stop 09/26/21 at 10:31; Status DC Cefazolin Sodium/ Dextrose 50 ml @ As Directed STK-MED ONCE IV ; Start 09/26/21 at 10:32; Stop 09/26/21 at 10:32; Status DC Vancomycin HCl 1 gm/Sodium Chloride 250 ml @ 250 mls/hr PREOP PRN PRN IV PRIOR TO PROCEDURE; Start 09/26/21 at 10:45; Stop 09/26/21 at 14:00; Status DC Cefazolin Sodium/ Dextrose 50 ml @ 100 mls/hr 1X ONCE IV Last administered on 09/26/21at 11:00; Start 09/26/21 at 11:00; Stop 09/26/21 at 11:29; Status DC Dexamethasone Sodium Phosphate (Decadron) 4 mg STK-MED ONCE .ROUTE ; Start 09/26/21 at 11:04; Stop 09/26/21 at 11:04; Status DC Glycopyrrolate (Robinul) 1 mg STK-MED ONCE .ROUTE ; Start 09/26/21 at 11:04; Stop 09/26/21 at 11:04; Status DC Hydromorphone HCl (Dilaudid) 2 mg STK-MED ONCE .ROUTE ; Start 09/26/21 at 11:56; Stop 09/26/21 at 11:56; Status DC Fentanyl Citrate (Fentanyl 2ml Vial) 25 mcg PRN Q5MIN PRN IVP MILD PAIN 1-3; Start 09/26/21 at 14:30; Stop 09/26/21 at 18:15; Status DC Fentanyl Citrate (Fentanyl 2ml Vial) 50 mcg PRN Q5MIN PRN IVP MODERATE PAIN 4- 6; Start 09/26/21 at 14:30; Stop 09/26/21 at 18:15; Status DC Morphine Sulfate (Morphine Sulfate) 1 mg PRN Q10MIN PRN IVP SEVERE PAIN 7-10; Start 09/26/21 at 14:30; Stop 09/26/21 at 18:15; Status DC Ringer's Solution 1,000 ml @ 30 mls/hr Q24H IV Last administered on 09/26/21at 15:18; Start 09/26/21 at 14:30; Stop 09/26/21 at 21:00; Status DC Hydromorphone HCl (Dilaudid) 0.5 mg PRN Q10MIN PRN IVP SEVERE PAIN 7-10, 2nd CHOICE; Start 09/26/21 at 14:30; Stop 09/26/21 at 18:15; Status DC Prochlorperazine Edisylate (Compazine) 5 mg PACU PRN PRN IVP NAUSEA, MRX1; Start 09/26/21 at 14:30; Stop 09/26/21 at 21:00; Status DC Fentanyl Citrate (Fentanyl 2ml Vial) 100 mcg STK-MED ONCE .ROUTE ; Start 09/26/21 at 14:23; Stop 09/26/21 at 14:25; Status DC Fentanyl Citrate (Fentanyl 2ml Vial) 25 mcg PRN Q5MIN PRN IVP MILD PAIN 1-3; Start 09/26/21 at 14:30; Stop 09/27/21 at 14:29; Status UNV Fentanyl Citrate (Fentanyl 2ml Vial) 50 mcg PRN Q5MIN PRN IVP MODERATE PAIN 4- 6; Start 09/26/21 at 14:30; Stop 09/27/21 at 14:29; Status UNV Morphine Sulfate (Morphine Sulfate) 1 mg PRN Q10MIN PRN IVP SEVERE PAIN 7-10; Start 09/26/21 at 14:30; Stop 09/27/21 at 14:29; Status UNV Ringer's Solution 1,000 ml @ 30 mls/hr Q24H IV ; Start 09/26/21 at 14:30; Stop 09/27/21 at 02:29; Status UNV Hydromorphone HCl (Dilaudid) 0.5 mg PRN Q10MIN PRN IVP SEVERE PAIN 7-10, 2nd CHOICE; Start 09/26/21 at 14:30; Stop 09/27/21 at 14:29; Status UNV Prochlorperazine Edisylate (Compazine) 5 mg PACU PRN PRN IVP NAUSEA, MRX1; Start 09/26/21 at 14:30; Stop 09/27/21 at 14:29; Status UNV Dexamethasone Sodium Phosphate (Decadron) 4 mg Q6HRS IVP Last administered on 09/28/21at 05:06; Start 09/26/21 at 18:00; Stop 09/28/21 at 06:00; Status DC Sodium Chloride 1,000 ml @ 100 mls/hr Q10H IV Last administered on 10/05/21at 06:41; Start 09/26/21 at 17:30; Stop 10/05/21 at 13:48; Status DC Cefazolin Sodium (Ancef) 1 gm Q8HRS IVP ; Start 09/27/21 at 06:00; Stop 09/27/21 at 05:47; Status DC Vancomycin HCl 1 gm/Sodium Chloride 250 ml @ 166.667 mls/hr 1X ONCE IV Last administered on 09/27/21at 06:27; Start 09/27/21 at 06:00; Stop 09/27/21 at 07:29; Status DC Gadoterate Meglumine (Clariscan) 19 ml 1X ONCE IVP Last administered on 09/29/21at 10:32; Start 09/29/21 at 08:15; Stop 09/29/21 at 08:17; Status DC Bisacodyl (Dulcolax Supp) 10 mg PRN DAILY PRN [place] CONSTIPATION; Start 09/29/21 at 14:15 Lactulose (Lactulose) 20 gm PRN DAILY PRN PO CONSTIPATION, 2nd choice Last administered on 10/01/21at 08:35; Start 09/29/21 at 14:30 Ascorbic Acid (Vitamin C) 500 mg DAILY PO Last administered on 10/23/21at 08:26; Start 10/02/21 at 10:00 Levofloxacin/ Dextrose 100 ml @ 100 mls/hr Q24H IV Last administered on 10/02/21at 12:15; Start 10/02/21 at 12:00; Stop 10/03/21 at 08:57; Status DC Levofloxacin/ Dextrose 50 ml @ 50 mls/hr Q24H IV Last administered on 10/06/21at 15:19; Start 10/03/21 at 12:00; Stop 10/06/21 at 23:00; Status DC Lactobacillus Rhamnosus (Culturelle) 1 cap BID PO Last administered on 10/23/21at 08:26; Start 10/03/21 at 21:00 Lidocaine (Lidoderm) 1 patch QHS TP Last administered on 10/22/21at 21:18; Start 10/04/21 at 22:00 Levofloxacin (Levaquin) 250 mg DAILY06 PO Last administered on 10/11/21at 06:13; Start 10/07/21 at 06:00; Stop 10/11/21 at 12:00; Status DC Insulin Human Lispro (HumaLOG) 0-5 UNITS TIDWMEALS SQ Last administered on 10/18/21at 12:16; Start 10/12/21 at 08:00; Stop 10/19/21 at 15:15; Status DC Dextrose (Dextrose 50%-Water Syringe) 12.5 gm PRN Q15MIN PRN IV SEE COMMENTS; Start 10/11/21 at 19:00 Dextrose (Iv Dextrose 5%) 250 ml PRN Q15MIN PRN IV SEE COMMENTS; Start 10/11/21 at 19:00 Potassium Chloride (Klor-Con) 40 meq 1X ONCE PO Last administered on 10/15/21at 10:21; Start 10/15/21 at 10:30; Stop 10/15/21 at 10:31; Status DC Magnesium Sulfate 50 ml @ 25 mls/hr 1X ONCE IV Last administered on 10/15/21at 10:20; Start 10/15/21 at 10:30; Stop 10/15/21 at 12:29; Status DC Baclofen (Lioresal) 10 mg Q8HRS PO Last administered on 10/17/21at 06:02; Start 10/16/21 at 22:00; Stop 10/17/21 at 11:58; Status DC Baclofen (Lioresal) 10 mg Q6HRS PO Last administered on 10/23/21at 12:53; Start 10/17/21 at 12:00 Triamcinolone Acetonide (Kenalog-40) 40 mg 1X ONCE IM Last administered on 10/17/21 12:15; Start 10/17/21 at 12:15; Stop 10/17/21 at 12:16; Status DC Bupivacaine HCl (Sensorcaine-Mpf 0.25%) 10 ml 1X ONCE IJ Last administered on 10/17/21at 12:00; Start 10/17/21 at 12:00; Stop 10/17/21 at 12:01; Status DC Magnesium Sulfate 100 ml @ 25 mls/hr 1X ONCE IV Last administered on 10/18/21at 14:11; Start 10/18/21 at 14:30; Stop 10/18/21 at 18:29; Status DC Vitamin B Complex (Folbic Tablet) 1 tab DAILY PO Last administered on 10/23/21at 08:26; Start 10/18/21 at 14:30 Non-Formulary Medication (L-Carnitine 500 Mg Capsule) 1 ea DAILY PO Last administered on 10/20/21 08:54; Start 10/19/21 at 13:00 Insulin Human Lispro (HumaLOG) 0-5 UNITS PRN BFRMEAL PRN SQ SEE ADMIN INSTRUCTIONS Last administered on 10/22/21 12:46; Start 10/19/21 at 15:15 Oxycodone HCl (Roxicodone) 5 mg PRN Q3HRS PRN PO MODERATE-SEVERE PAIN Last administered on 10/23/21 12:53; Start 10/22/21 at 16:30 Diazepam (Valium) 5 mg PRN TID PRN PO ANXIETY Last administered on 10/23/21 00:05; Start 10/22/21 at 19:30 Active Scripts Active Dok (Docusate Sodium) 100 Mg Capsule 100 Mg PO PRN BID PRN 30 Days Tylenol (Acetaminophen) 325 Mg Tablet 650 Mg PO PRN Q4HRS PRN 30 Days Valium (Diazepam) 5 Mg Tablet 5 Mg PO TID Atorvastatin Calcium 10 Mg Tablet 10 Mg PO QHS Reported Midodrine Hcl 2.5 Mg Tablet 2.5 Mg PO PRN 1X PRN Aspirin 81 Mg Tab.chew 81 Mg PO DAILY Baclofen 10 Mg Tablet 10 Mg PO BID Lyrica (Pregabalin) 100 Mg Capsule 100 Mg PO BID 30 Days Polyethylene Glycol 3350 2,500 Gm Powder 17 Gm PO DAILY 30 Days Micatin (Miconazole Nitrate) 14 Gm Cream..g. 1 [place] TP TID Tradjenta (Linagliptin) 5 Mg Tablet 5 Mg PO DAILY Lidocaine PATCH (Lidocaine) 1 Each Adh..patch 1 Each TP DAILY REMOVE AFTER 12 HOURS Levemir (Insulin Detemir) 100 Unit/1 Ml Vial 4 Unit SQ HS Hydroxyzine Hcl 25 Mg Tablet 25 Mg PO PRN Q6HRS PRN Fluticasone Propionate Nasal [place] (Fluticasone Propionate) 16 Gm [place].susp 2 [place] NS DAILY Diclofenac Sodium 100 Gm Gel..gram. 100 Gm TP PRN TID PRN Losartan Potassium 100 Mg Tablet 25 Tab PO DAILY08 Vitals/I & O Vital Sign - Last 24 Hours 10/22/21 10/22/21 10/22/21 10/22/21 16:59 17:29 19:00 20:00 Temp 98.1 98.1 Pulse 85 Resp 20 B/P (MAP) 140/71 (94) Pulse Ox 96 O2 Delivery Room Air Room Air Room Air Room Air 10/22/21 10/22/21 10/22/21 10/23/21 21:17 21:47 23:00 02:09 Temp 98.2 98.2 Pulse 87 Resp 20 20 20 18 B/P (MAP) 142/70 (94) Pulse Ox 95 O2 Delivery Room Air Room Air Room Air 10/23/21 10/23/21 10/23/21 10/23/21 02:39 03:43 07:15 08:00 Temp 98.3 98.6 98.3 98.6 Pulse 84 74 Resp 18 20 16 B/P (MAP) 116/52 (73) 107/52 (70) Pulse Ox 96 95 O2 Delivery Room Air Room Air Room Air Room Air 10/23/21 10/23/21 10/23/21 10/23/21 08:26 09:37 10:07 11:00 Temp 98.5 98.5 Pulse 74 76 Resp 16 B/P (MAP) 107/52 116/57 (76) Pulse Ox 93 O2 Delivery Room Air Room Air Room Air 10/23/21 10/23/21 10/23/21 12:53 13:23 15:01 Temp 97.9 97.9 Pulse 81 Resp 18 B/P (MAP) 153/70 (97) Pulse Ox 94 O2 Delivery Room Air Room Air Room Air Intake and Output 10/22/21 10/22/21 10/23/21 15:00 23:00 07:00 Intake Total 200 ml 200 ml Output Total 400 ml 1051 ml Balance -200 ml -851 ml Justifications for Admission Other Justification uncontrolled diabetes TODD RIVERA SURVEYOR Oct 23, 2021 16:57
[2021-10-23 19:00] VITALS: BP 118/62
[2021-10-23] MEDS: LIDOCAINE (700MG/PATCH) PATCH. TP SCH (21:08)
[2021-10-23] MEDS: ATORVASTATIN CALCIUM 10 MG TABLET. PO SCH (21:08)
[2021-10-23] MEDS: INSULIN GLARGINE SYRINGE. SQ SCH (21:14)
[2021-10-23 23:00] VITALS: BP 117/58
[2021-10-23] MEDS: hydrOXYzine 25 MG TABLET PO PRN (23:04)
[2021-10-24] MEDS: oxyCODONE IR 5 MG TABLET PO PRN ×7 (00:02→21:54)
[2021-10-24 03:00] VITALS: BP 95/50
[2021-10-24] MEDS: BACLOFEN 10 MG TABLET. PO SCH ×5 (06:15→23:53)
[2021-10-24 07:00] VITALS: BP 116/63
--- NOTE | 2021-10-24 08:26 | PDOC ---
[facility] PROGRESS NOTE Date of Service DOS: DATE: 10/24/21 TIME: 08:26 Chief Complaint Chief Complaint Cervical spinal cord injury - Concern for C5 cord edema, cord compression, a right lateral C5 fracture, and concern for numerous ligamentous injuries. 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 S/p decompression 07/26/2021 and repeat surgeries 09/25 and 09/26 Diabetes - sliding scale plus basal HTN - prn hydralazine HLD - statin when taking PO Cervical laminectomy as per above, diabetes, hypertension, hyperlipidemia, arthritis, GERD, left knee arthroplasty and TIA S/p; IVC filter FEN - ADAT PPX - SCDs FULL CODE Dispo - Inpatient History of Present Illness History of Present Illness 10/24 Patient evaluated examined at bedside. Resting in bed without complaint. Continue therapy modalities. Working on placement. Discussed with bedside RN 10/23/2021 No acute events overnight. Patient seen examined bedside. Resting comfortably. No complaints at this time. No concerns from nursing. Pending neuro rehab placement. Patient's chart, labs, images were reviewed and discussed with RN 10/22/2021 Patient seen and examined bedside. No complaints today. 10/21/2021 No acute events overnight. Patient seen examined bedside. Still working with PT OT and pending neuro rehab placement. Insurance issues still pending. Complaining of weakness is about the same and having pain in his extremities that have somewhat improved. 3 [phone] No acute events overnight. Patient seen examined bedside. Injection received in right shoulder with Dr. JURADO. Patient tolerated procedure well. Spasms have improved. Pending placement to neuro rehab as a possibility. Patient's chart, labs, images were reviewed and discussed with RN 10/19/2021 No acute events overnight. Patient seen examined bedside. Spasms have improved and pain overall has improved after adjustment with baclofen. Continuing with rehab modalities. Patient's chart, labs, images were reviewed and discussed with RN 10/18: Right shoulder radiograph with some degenerative changes. Had some spasming this morning, but feeling better currently. Mag 1.6. Discussed addition of B6, 9, 12 and needs for complex neuro rehab. 10/17/2021 No acute events overnight. Patient seen examined bedside. Still complaining of muscle spasms. Baclofen has been increased. He is already on Valium and Lyrica. Considering neurology consult for evaluation. Pending right shoulder x-ray. Patient's chart, labs, images were reviewed and discussed with RN 10/16: Seen in ICU notes spasming started again last night this happened about 6 times even when he tries to reach up and scratch his eyelid. Having some more pain in his right biceps and left Achilles area. 10/15: Seen bedside in ICU getting bed bath. Says his spasming is improved today having a little bit of shortness of breath but no cough. No chest pain. 10/14: Seen bedside in ICU. Still with spasming upon awakening in his hands and feet still with some weakness in his left foot. Poor appetite. 10/13: Patient seen and examined. Discussed with neurosurgery nurse practitioner Roberta 10/12: Patient seen and examined 10/11: Patient seen and examined. His discharge was held again as he was not accepted at [facility] 10/09: His sister is here as well discussed with her. Plan is to get the patient to [facility] care home if they accept him 10/08: Patient seen and examined. He is moving his toes more each day 10/07: Patient seen and examined in the ICU (he is actually in overfull patient). He is working with his nurse to try to use his nurse button and remote control. Started to move his toes a little bit 10/06/2021 Patient seen and examined in the ICU I discussed the case with his sister again I also discussed the case with case management [facility] rehab may consider taking him after all now that he is improved over the past 3 days 10/05/2021 Patient seen and examined in the ICU His nurses are starting to get ready to clean him up His sister is present Discussed with RN Discussed with case management we are still awaiting [facility] transfer if it can be arranged 10/04/2021 Patient seen and examined again in the ICU He remains very weak cannot move his legs was able to move his hands His sister is present I called case management they are checking into possibly if he could go to rehab [facility] Chart reviewed 10/03/2021 Patient seen and examined in the ICU Chart reviewed Discussed with RN Called case management We are hoping to get the patient transferred to [facility] if possible (they are evaluating his admission criteria to rehab) 10/02/2021 Patient seen and examined in the ICU He is still unable to move his legs He is able to move his hands and arms slightly but is very weak at bedside Chart reviewed Discussed with RN I called case management to see if maybe he could go to [facility] rehab sometime soon 10/01 Patient evaluated examined at bedside. Continues to improve. Continue rehab. Plan discussed with bedside RN. 09/30 Patient evaluated examined at bedside. Clinically about the same from yesterday. Continue rehab modalities. Labs stable. Plan discussed with bedside RN. 09/29 Patient evaluated at bedside. Underwent MRI this morning. Symptoms very similar to yesterday but he feels like he is regaining some function. Pain controlled. PT OT. Hemoglovin stable. 09/28 Evaluate examined at bedside. Resting in bed had no complaints to me. Said pain is quite improved. Did okay with transfusion yesterday. Continue current treatments. PT/OT. Discussed with bedside RNStar Diane 09/27 Patient evaluated examined at bedside. Was resting in bed easily awoken able to answer some questions. Some movement in his upper extremities but very limited in lower. Transfuse 1 unit today. Plan discussed with RN. Mr Terrell is a 60-year-old male w/ PMHx prediabetes, HLD, HTN and recent fall in July 2021 with cervical myelopathy and s/p cervical decompression with ACDF C5-6 07/26/2021 On 09/25/21 underwent cervical laminectomy, C3, C4, C5, C6, partial C7 with lateral mass fusion C3 through C7, Posterior nstrumentation C3-C7 on the left and posterior instrumentation C-C6 on the right. On 09/26/21 returned to OR for cervical hematoma evacuation. Vitals/I&O Vitals/I&O: Vital Signs Date Time Temp Pulse Resp B/P (MAP) Pulse Ox O2 Delivery O2 Flow Rate FiO2 10/24/21 07:00 98.4 57 18 116/63 (80) 97 Room Air 98.4 I & O 0 10/23/21 10/23/21 10/24/21 15:00 23:00 07:00 Intake Total 120 ml 120 ml 200 ml Output Total 775 ml Balance 120 ml -655 ml 200 ml Physical Exam General: Alert, Oriented X3, Cooperative, No acute distress Heart: Regular rate Lungs: Clear Abdomen: Normal bowel sounds, Soft, No tenderness Extremities: No edema, Normal pulses Skin: Other Labs Labs: Laboratory Tests Test 10/23/21 11:24 10/23/21 16:43 10/23/21 20:43 10/24/21 07:29 Glucose (Fingerstick) 157 mg/dL (70-99) 186 mg/dL (70-99) 175 mg/dL (70-99) 144 mg/dL (70-99) Comment Review of Relevant I have reviewed the following items michelle (where applicable) has been applied. Justifications for Admission Other Justification uncontrolled diabetes STACY LÓPEZ MD Oct 24, 2021 08:26
[2021-10-24] MEDS: POLYETHYLENE GLYCOL 3350 17 GM PACKET. PO SCH (09:00)
[2021-10-24] MEDS: FLUTICASONE 50MCG/NASAL SPRAY 16GM BOTTLE. NS SCH (09:00)
[2021-10-24] MEDS: ASCORBIC ACID 500 MG TABLET PO SCH (09:27)
[2021-10-24] MEDS: VITAMIN B12,B9,B6 COMPLEX 1 TABLET. PO SCH (09:28)
[2021-10-24] MEDS: LINAGLIPTIN 5 MG TABLET PO SCH (09:28)
[2021-10-24] MEDS: PREGABALIN 50 MG CAPSULE PO SCH ×2 (09:28→21:53)
[2021-10-24] MEDS: LOSARTAN POTASSIUM 25 MG TABLET. PO SCH (09:28)
[2021-10-24] MEDS: LACTOBACILLUS RHAMNOSUS GG 1 CAPSULE. PO SCH ×2 (09:28→21:53)
[2021-10-24] MEDS: CARNITINE 500 MG PO SCH (09:35)
[2021-10-24] MEDS: hydrOXYzine 25 MG TABLET PO PRN ×2 (09:37→20:22)
--- NOTE | 2021-10-24 10:13 | PDOC ---
PROGRESS NOTES Date of Service DATE: 10/24/21 TIME: 10:11 Subjective Subjective No new problems. Objective Objective Vital Signs Date Time Temp Pulse Resp B/P (MAP) Pulse Ox O2 Delivery O2 Flow Rate FiO2 10/24/21 09:28 57 116/63 10/24/21 07:00 98.4 18 97 Room Air 98.4 10/21/21 08:00 2.0 Intake and Output 10/24/21 07:00 Intake Total 440 ml Output Total 775 ml Balance -335 ml Intake Oral 440 ml Output Urine Total 775 ml # Voids 2 Physical Exam Physical Exam No change with his neurological status. He is alert,supine in bed. Plan Plan of Care Waiting for placement. Comment Review of Relevant I have reviewed the following items michelle (where applicable) has been applied. Labs Laboratory Tests Test 10/22/21 11:46 10/22/21 16:52 10/23/21 07:39 10/23/21 11:24 Glucose (Fingerstick) 191 mg/dL (70-99) 114 mg/dL (70-99) 128 mg/dL (70-99) 157 mg/dL (70-99) Test 10/23/21 16:43 10/23/21 20:43 10/24/21 07:29 Glucose (Fingerstick) 186 mg/dL (70-99) 175 mg/dL (70-99) 144 mg/dL (70-99) Laboratory Tests Test 10/23/21 11:24 10/23/21 16:43 10/23/21 20:43 10/24/21 07:29 Glucose (Fingerstick) 157 mg/dL (70-99) 186 mg/dL (70-99) 175 mg/dL (70-99) 144 mg/dL (70-99) Microbiology 10/01/21 Urine Culture - Final, Complete Escherichia Coli Escherichia Coli#2 Medications Current Medications Fentanyl Citrate (Fentanyl 2ml Vial) 25 mcg PRN Q5MIN PRN IVP MILD PAIN 1-3; Start 09/25/21 at 06:00; Stop 09/25/21 at 20:00; Status DC Fentanyl Citrate (Fentanyl 2ml Vial) 50 mcg PRN Q5MIN PRN IVP MODERATE PAIN 4-6 Last administered on 09/25/21at 13:48; Start 09/25/21 at 06:00; Stop 09/25/21 at 20:00; Status DC Morphine Sulfate (Morphine Sulfate) 1 mg PRN Q10MIN PRN IVP SEVERE PAIN 7-10 Last administered on 09/25/21at 14:21; Start 09/25/21 at 06:00; Stop 09/25/21 at 20:00; Status DC Ringer's Solution 1,000 ml @ 30 mls/hr Q24H IV Last administered on 09/25/21at 12:54; Start 09/25/21 at 06:00; Stop 09/25/21 at 17:59; Status DC Hydromorphone HCl (Dilaudid) 0.5 mg PRN Q10MIN PRN IVP SEVERE PAIN 7-10, 2nd CHOICE Last administered on 09/25/21at 16:53; Start 09/25/21 at 06:00; Stop 09/25/21 at 20:00; Status DC Prochlorperazine Edisylate (Compazine) 5 mg PACU PRN PRN IVP NAUSEA, MRX1; Start 09/25/21 at 06:00; Stop 09/25/21 at 20:00; Status DC Cefazolin Sodium 1 gm/Sodium Chloride 1,000 ml @ 1,000 mls/hr 1X ONCE IRR Last administered on 09/25/21at 10:14; Start 09/25/21 at 06:00; Stop 09/25/21 at 06:59; Status DC Cefazolin Sodium/ Dextrose 50 ml @ 100 mls/hr 1X PREOP PRN IV PRIOR TO PROCEDURE Last administered on 09/25/21at 09:30; Start 09/25/21 at 06:00; Stop 09/25/21 at 13:39; Status DC Insulin Human Lispro (HumaLOG VIAL for OP,RR ONLY) 0-10 units PRN Q1HR PRN SQ PER PROTOCOL Last administered on 09/25/21at 17:01; Start 09/25/21 at 07:00; Stop 09/25/21 at 18:00; Status DC Bupivacaine HCl/ Epinephrine Bitart (Sensorcain-Epi 0.5% Kit) 30 ml STK-MED ONCE INJ Last administered on 09/25/21at 10:14; Start 09/25/21 at 10:14; Stop 09/25/21 at 10:30; Status DC Ketorolac Tromethamine (Toradol Im) 60 mg STK-MED ONCE INJ Last administered on 09/25/21 10:14; Start 09/25/21 at 10:14; Stop 09/25/21 at 10:30; Status DC Thrombin 20,000 unit STK-MED ONCE TP Last administered on 09/25/21 10:14; Start 09/25/21 at 10:14; Stop 09/25/21 at 10:30; Status DC Gelatin (Gelfoam Size 100) 1 each STK-MED ONCE TP Last administered on 09/25/21at 10:14; Start 09/25/21 at 10:14; Stop 09/25/21 at 10:30; Status DC Acetaminophen (Tylenol) 650 mg PRN Q4HRS PRN PO TEMP OVER 100.4F OR MILD PAIN Last administered on 10/23/21 19:09; Start 09/25/21 at 12:30 Aspirin (Aspirin Chewable) 81 mg DAILY PO Last administered on 09/26/21 08:30; Start 09/26/21 at 09:00; Stop 09/28/21 at 17:19; Status DC Atorvastatin Calcium (Lipitor) 10 mg QHS PO Last administered on 10/23/21 21:08; Start 09/25/21 at 21:00 Baclofen (Lioresal) 10 mg BID PO Last administered on 10/16/21 08:26; Start 09/25/21 at 21:00; Stop 10/16/21 at 13:21; Status DC Diazepam (Valium) 5 mg TID PO Last administered on 10/22/21 12:35; Start 09/25/21 at 14:00; Stop 10/22/21 at 19:23; Status DC Docusate Sodium (Colace) 100 mg PRN BID PRN PO HARD STOOLS Last administered on 10/15/21 10:22; Start 09/25/21 at 12:30 Fluticasone Propionate (Flonase) 2 spray DAILY NS Last administered on 10/17/21 12:58; Start 09/26/21 at 09:00 Hydroxyzine HCl (Atarax) 25 mg PRN Q6HRS PRN PO Itching (2ND Choice) Last administered on 10/24/21 09:37; Start 09/25/21 at 12:30 Lidocaine (Lidoderm) 1 patch QHS TP Last administered on 10/03/21at 23:31; Start 09/25/21 at 20:00; Stop 10/05/21 at 01:01; Status DC Linagliptin (Tradjenta) 5 mg DAILY PO Last administered on 10/24/21 09:28; Start 09/25/21 at 13:00 Miconazole Nitrate (Monistat-Derm) 1 crispin TID TP Last administered on 10/04/21at 20:08; Start 09/25/21 at 21:00; Stop 10/05/21 at 13:23; Status DC Midodrine (Proamatine) 2.5 mg PRN 1X PRN PO hypotension Last administered on 09/27/21 08:56; Start 09/25/21 at 12:30 Oxycodone HCl (Roxicodone) 10 mg PRN Q6HRS PRN PO MODERATE-SEVERE PAIN Last administered on 10/22/21at 12:35; Start 09/25/21 at 12:30; Stop 10/22/21 at 16:20; Status DC Diclofenac Sodium (Voltaren) 1 crispin PRN TID PRN TP PAIN CONTROL; Start 09/25/21 at 13:15; Stop 09/25/21 at 18:37; Status DC Insulin Glargine (Lantus Syringe) 4 unit QHS SQ Last administered on 10/23/21at 21:14; Start 09/25/21 at 21:00 Losartan Potassium (Cozaar) 25 mg DAILY08 PO Last administered on 10/24/21 09:28; Start 09/26/21 at 08:00 Polyethylene Glycol (miraLAX PACKET) 17 gm DAILY PO Last administered on 10/13/21 08:53; Start 09/25/21 at 14:00 Pregabalin (Lyrica) 100 mg BID PO Last administered on 10/24/21 09:28; Start 09/25/21 at 21:00 Acetaminophen (Tylenol) 650 mg PRN Q6HRS PRN PO MILD PAIN / TEMP > 100.3'F; Start 09/25/21 at 12:30; Status Cancel Al Hydroxide/Mg Hydroxide (Mylanta Plus Xs) 30 ml PRN Q3HRS PRN PO HEARTBURN / GAS; Start 09/25/21 at 12:30 Calcium Carbonate/ Glycine (Tums) 500 mg PRN Q3HRS PRN PO INDIGESTION; Start 09/25/21 at 12:30 Diphenhydramine HCl (Benadryl) 25 mg PRN Q6HRS PRN PO ITCHING (1ST CHOICE); Start 09/25/21 at 12:30 Naloxone HCl (Narcan) 0.1 mg PRN Q2MIN PRN IV SEE COMMENTS; Start 09/25/21 at 12:30 Sodium Chloride (Normal Saline Flush) 3 ml QSHIFT PRN IV AFTER MEDS AND BLOOD DRAWS; Start 09/25/21 at 12:30 Potassium Chloride/Sodium Chloride 1,000 ml @ 75 mls/hr [id number] IV Last administered on 09/26/21at 07:00; Start 09/25/21 at 12:30; Stop 09/26/21 at 17:33; Status DC Magnesium Hydroxide (Milk Of Magnesia) 2,400 mg PRN Q12HR PRN PO CONSTIPATION; Start 09/25/21 at 12:30 Cefazolin Sodium (Ancef) 1 gm Q8H IVP Last administered on 09/26/21at 04:14; Start 09/25/21 at 18:00; Stop 09/26/21 at 10:01; Status DC Fentanyl Citrate (Fentanyl 2ml Vial) 50 mcg PRN Q2HR PRN IVP MODERATE TO SEVERE PAIN Last administered on 10/05/21at 22:46; Start 09/25/21 at 12:30 Dextrose (Dextrose 50%-Water Syringe) 12.5 gm PRN Q15MIN PRN IV SEE COMMENTS; Start 09/25/21 at 12:30; Status Cancel Dextrose (Iv Dextrose 5%) 250 ml PRN Q15MIN PRN IV SEE COMMENTS; Start 09/25/21 at 12:30; Status Cancel Gelatin (Gelfoam Size 100) 1 each STK-MED ONCE .ROUTE ; Start 09/25/21 at 06:37; Stop 09/25/21 at 14:55; Status DC Bupivacaine HCl/ Epinephrine Bitart (Sensorcain-Epi 0.5% Kit) 30 ml STK-MED ONCE .ROUTE ; Start 09/25/21 at 06:37; Stop 09/25/21 at 14:55; Status DC Ketorolac Tromethamine (Toradol Im) 60 mg STK-MED ONCE .ROUTE ; Start 09/25/21 at 06:37; Stop 09/25/21 at 14:55; Status DC Thrombin 20,000 unit STK-MED ONCE TP ; Start 09/25/21 at 06:38; Stop 09/25/21 at 14:55; Status DC Propofol (Diprivan) 200 mg STK-MED ONCE IV ; Start 09/25/21 at 05:54; Stop 09/25/21 at 14:57; Status DC Lidocaine HCl (Lidocaine Pf 2% Vial) 5 ml STK-MED ONCE .ROUTE ; Start 09/25/21 at 05:54; Stop 09/25/21 at 14:57; Status DC Ondansetron HCl (Zofran) 4 mg STK-MED ONCE .ROUTE ; Start 09/25/21 at 05:54; Stop 09/25/21 at 14:57; Status DC Phenylephrine HCl (Ramone-Synephrine Inj) 10 mg STK-MED ONCE .ROUTE ; Start 09/25/21 at 05:54; Stop 09/25/21 at 14:57; Status DC Propofol 50 ml @ As Directed STK-MED ONCE IV ; Start 09/25/21 at 05:54; Stop 09/25/21 at 14:57; Status DC Dexamethasone Sodium Phosphate (Decadron) 4 mg STK-MED ONCE .ROUTE ; Start 09/25/21 at 05:54; Stop 09/25/21 at 14:57; Status DC Fentanyl Citrate (Fentanyl 2ml Vial) 100 mcg STK-MED ONCE .ROUTE ; Start 09/25/21 at 05:54; Stop 09/25/21 at 14:57; Status DC Succinylcholine Chloride (Anectine) 200 mg STK-MED ONCE .ROUTE ; Start 09/25/21 at 05:54; Stop 09/25/21 at 14:57; Status DC Remifentanil HCl (Ultiva) 1 mg STK-MED ONCE IV ; Start 09/25/21 at 05:54; Stop 09/25/21 at 14:57; Status DC Glycopyrrolate (Robinul) 1 mg STK-MED ONCE .ROUTE ; Start 09/25/21 at 07:11; Stop 09/25/21 at 15:01; Status DC Propofol 50 ml @ As Directed STK-MED ONCE IV ; Start 09/25/21 at 08:07; Stop 09/25/21 at 15:02; Status DC Ketamine HCl (Ketamine) 50 mg STK-MED ONCE .ROUTE ; Start 09/25/21 at 08:15; Stop 09/25/21 at 15:02; Status DC Hydromorphone HCl (Dilaudid) 2 mg STK-MED ONCE .ROUTE ; Start 09/25/21 at 10:44; Stop 09/25/21 at 15:03; Status DC Fentanyl Citrate (Fentanyl 2ml Vial) 100 mcg STK-MED ONCE .ROUTE ; Start 09/25/21 at 13:26; Stop 09/25/21 at 15:04; Status DC Morphine Sulfate (Morphine Sulfate) 2 mg STK-MED ONCE .ROUTE ; Start 09/25/21 at 14:04; Stop 09/25/21 at 15:05; Status DC Hydromorphone HCl (Dilaudid) 2 mg STK-MED ONCE .ROUTE ; Start 09/25/21 at 14:54; Stop 09/25/21 at 15:06; Status DC Menthol/Methyl Salicylate (Beng[place] Greaseless Cream) 1 crispin PRN Q30MIN PRN TP MUSCLE PAIN Last administered on 10/02/21at 21:03; Start 09/25/21 at 18:45 Mupirocin (Bactroban) 1 crispin BID NS Last administered on 10/12/21at 21:09; Start 09/26/21 at 09:00; Stop 10/13/21 at 07:56; Status DC Dexamethasone Sodium Phosphate (Decadron) 10 mg 1X ONCE IVP Last administered on 09/26/21at 07:31; Start 09/26/21 at 07:30; Stop 09/26/21 at 07:31; Status DC Cefazolin Sodium 1 gm/Sodium Chloride 1,000 ml @ 1,000 mls/hr 1X ONCE IRR Last administered on 09/26/21at 11:52; Start 09/26/21 at 10:30; Stop 09/26/21 at 11:29; Status DC Cefazolin Sodium (Ancef) 1 gm STK-MED ONCE IVP ; Start 09/26/21 at 10:05; Stop 09/26/21 at 10:06; Status DC Lidocaine HCl (Lidocaine Pf 2% Vial) 5 ml STK-MED ONCE .ROUTE ; Start 09/26/21 at 10:18; Stop 09/26/21 at 10:18; Status DC Ondansetron HCl (Zofran) 4 mg STK-MED ONCE .ROUTE ; Start 09/26/21 at 10:18; Stop 09/26/21 at 10:18; Status DC Propofol (Diprivan) 200 mg STK-MED ONCE IV ; Start 09/26/21 at 10:18; Stop 09/26/21 at 10:19; Status DC Dexamethasone Sodium Phosphate (Decadron) 4 mg STK-MED ONCE .ROUTE ; Start 09/26/21 at 10:18; Stop 09/26/21 at 10:19; Status DC Sevoflurane (Ultane) 30 ml STK-MED ONCE IH ; Start 09/26/21 at 10:18; Stop 09/26/21 at 10:19; Status DC Fentanyl Citrate (Fentanyl 2ml Vial) 100 mcg STK-MED ONCE .ROUTE ; Start 09/26/21 at 10:19; Stop 09/26/21 at 10:19; Status DC Rocuronium [place] (Zemuron) 50 mg STK-MED ONCE .ROUTE ; Start 09/26/21 at 10:19; Stop 09/26/21 at 10:19; Status DC Insulin Human Lispro (HumaLOG VIAL for OP,RR ONLY) 0-10 units PRN Q1HR PRN SQ PER PROTOCOL Last administered on 09/26/21at 15:11; Start 09/26/21 at 10:30; Stop 09/26/21 at 18:00; Status DC Sugammadex Sodium (Bridion) 200 mg 1X ONCE IVP Last administered on 09/26/21at 10:30; Start 09/26/21 at 10:30; Stop 09/26/21 at 10:31; Status DC Gelatin (Gelfoam Size 100) 1 each STK-MED ONCE .ROUTE Last administered on 09/26/21at 11:52; Start 09/26/21 at 10:30; Stop 09/26/21 at 10:30; Status DC Bupivacaine HCl/ Epinephrine Bitart (Sensorcain-Epi 0.5% Kit) 30 ml STK-MED ONCE .ROUTE ; Start 09/26/21 at 10:30; Stop 09/26/21 at 10:30; Status DC Ketorolac Tromethamine (Toradol Im) 60 mg STK-MED ONCE .ROUTE ; Start 09/26/21 at 10:30; Stop 09/26/21 at 10:30; Status DC Thrombin 20,000 unit STK-MED ONCE TP Last administered on 09/26/21at 11:52; Start 09/26/21 at 10:30; Stop 09/26/21 at 10:31; Status DC Cefazolin Sodium/ Dextrose 50 ml @ As Directed STK-MED ONCE IV ; Start 09/26/21 at 10:32; Stop 09/26/21 at 10:32; Status DC Vancomycin HCl 1 gm/Sodium Chloride 250 ml @ 250 mls/hr PREOP PRN PRN IV PRIOR TO PROCEDURE; Start 09/26/21 at 10:45; Stop 09/26/21 at 14:00; Status DC Cefazolin Sodium/ Dextrose 50 ml @ 100 mls/hr 1X ONCE IV Last administered on 09/26/21at 11:00; Start 09/26/21 at 11:00; Stop 09/26/21 at 11:29; Status DC Dexamethasone Sodium Phosphate (Decadron) 4 mg STK-MED ONCE .ROUTE ; Start 09/26/21 at 11:04; Stop 09/26/21 at 11:04; Status DC Glycopyrrolate (Robinul) 1 mg STK-MED ONCE .ROUTE ; Start 09/26/21 at 11:04; Stop 09/26/21 at 11:04; Status DC Hydromorphone HCl (Dilaudid) 2 mg STK-MED ONCE .ROUTE ; Start 09/26/21 at 11:56; Stop 09/26/21 at 11:56; Status DC Fentanyl Citrate (Fentanyl 2ml Vial) 25 mcg PRN Q5MIN PRN IVP MILD PAIN 1-3; Start 09/26/21 at 14:30; Stop 09/26/21 at 18:15; Status DC Fentanyl Citrate (Fentanyl 2ml Vial) 50 mcg PRN Q5MIN PRN IVP MODERATE PAIN 4- 6; Start 09/26/21 at 14:30; Stop 09/26/21 at 18:15; Status DC Morphine Sulfate (Morphine Sulfate) 1 mg PRN Q10MIN PRN IVP SEVERE PAIN 7-10; Start 09/26/21 at 14:30; Stop 09/26/21 at 18:15; Status DC Ringer's Solution 1,000 ml @ 30 mls/hr Q24H IV Last administered on 09/26/21at 15:18; Start 09/26/21 at 14:30; Stop 09/26/21 at 21:00; Status DC Hydromorphone HCl (Dilaudid) 0.5 mg PRN Q10MIN PRN IVP SEVERE PAIN 7-10, 2nd CHOICE; Start 09/26/21 at 14:30; Stop 09/26/21 at 18:15; Status DC Prochlorperazine Edisylate (Compazine) 5 mg PACU PRN PRN IVP NAUSEA, MRX1; Start 09/26/21 at 14:30; Stop 09/26/21 at 21:00; Status DC Fentanyl Citrate (Fentanyl 2ml Vial) 100 mcg STK-MED ONCE .ROUTE ; Start 09/26/21 at 14:23; Stop 09/26/21 at 14:25; Status DC Fentanyl Citrate (Fentanyl 2ml Vial) 25 mcg PRN Q5MIN PRN IVP MILD PAIN 1-3; Start 09/26/21 at 14:30; Stop 09/27/21 at 14:29; Status UNV Fentanyl Citrate (Fentanyl 2ml Vial) 50 mcg PRN Q5MIN PRN IVP MODERATE PAIN 4- 6; Start 09/26/21 at 14:30; Stop 09/27/21 at 14:29; Status UNV Morphine Sulfate (Morphine Sulfate) 1 mg PRN Q10MIN PRN IVP SEVERE PAIN 7-10; Start 09/26/21 at 14:30; Stop 09/27/21 at 14:29; Status UNV Ringer's Solution 1,000 ml @ 30 mls/hr Q24H IV ; Start 09/26/21 at 14:30; Stop 09/27/21 at 02:29; Status UNV Hydromorphone HCl (Dilaudid) 0.5 mg PRN Q10MIN PRN IVP SEVERE PAIN 7-10, 2nd CHOICE; Start 09/26/21 at 14:30; Stop 09/27/21 at 14:29; Status UNV Prochlorperazine Edisylate (Compazine) 5 mg PACU PRN PRN IVP NAUSEA, MRX1; Start 09/26/21 at 14:30; Stop 09/27/21 at 14:29; Status UNV Dexamethasone Sodium Phosphate (Decadron) 4 mg Q6HRS IVP Last administered on 09/28/21at 05:06; Start 09/26/21 at 18:00; Stop 09/28/21 at 06:00; Status DC Sodium Chloride 1,000 ml @ 100 mls/hr Q10H IV Last administered on 10/05/21at 06:41; Start 09/26/21 at 17:30; Stop 10/05/21 at 13:48; Status DC Cefazolin Sodium (Ancef) 1 gm Q8HRS IVP ; Start 09/27/21 at 06:00; Stop 09/27/21 at 05:47; Status DC Vancomycin HCl 1 gm/Sodium Chloride 250 ml @ 166.667 mls/hr 1X ONCE IV Last administered on 09/27/21at 06:27; Start 09/27/21 at 06:00; Stop 09/27/21 at 07:29; Status DC Gadoterate Meglumine (Clariscan) 19 ml 1X ONCE IVP Last administered on 09/29/21at 10:32; Start 09/29/21 at 08:15; Stop 09/29/21 at 08:17; Status DC Bisacodyl (Dulcolax Supp) 10 mg PRN DAILY PRN MA CONSTIPATION; Start 09/29/21 at 14:15 Lactulose (Lactulose) 20 gm PRN DAILY PRN PO CONSTIPATION, 2nd choice Last administered on 10/01/21at 08:35; Start 09/29/21 at 14:30 Ascorbic Acid (Vitamin C) 500 mg DAILY PO Last administered on 10/24/21at 09:27; Start 10/02/21 at 10:00 Levofloxacin/ Dextrose 100 ml @ 100 mls/hr Q24H IV Last administered on 10/02/21at 12:15; Start 10/02/21 at 12:00; Stop 10/03/21 at 08:57; Status DC Levofloxacin/ Dextrose 50 ml @ 50 mls/hr Q24H IV Last administered on 10/06/21at 15:19; Start 10/03/21 at 12:00; Stop 10/06/21 at 23:00; Status DC Lactobacillus Rhamnosus (Culturelle) 1 cap BID PO Last administered on 10/24/21at 09:28; Start 10/03/21 at 21:00 Lidocaine (Lidoderm) 1 patch QHS TP Last administered on 10/23/21at 21:08; Start 10/04/21 at 22:00 Levofloxacin (Levaquin) 250 mg DAILY06 PO Last administered on 10/11/21at 06:13; Start 10/07/21 at 06:00; Stop 10/11/21 at 12:00; Status DC Insulin Human Lispro (HumaLOG) 0-5 UNITS TIDWMEALS SQ Last administered on 10/18/21at 12:16; Start 10/12/21 at 08:00; Stop 10/19/21 at 15:15; Status DC Dextrose (Dextrose 50%-Water Syringe) 12.5 gm PRN Q15MIN PRN IV SEE COMMENTS; Start 10/11/21 at 19:00 Dextrose (Iv Dextrose 5%) 250 ml PRN Q15MIN PRN IV SEE COMMENTS; Start 10/11/21 at 19:00 Potassium Chloride (Klor-Con) 40 meq 1X ONCE PO Last administered on 10/15/21at 10:21; Start 10/15/21 at 10:30; Stop 10/15/21 at 10:31; Status DC Magnesium Sulfate 50 ml @ 25 mls/hr 1X ONCE IV Last administered on 10/15/21at 10:20; Start 10/15/21 at 10:30; Stop 10/15/21 at 12:29; Status DC Baclofen (Lioresal) 10 mg Q8HRS PO Last administered on 10/17/21at 06:02; Start 10/16/21 at 22:00; Stop 10/17/21 at 11:58; Status DC Baclofen (Lioresal) 10 mg Q6HRS PO Last administered on 10/24/21at 06:15; Start 10/17/21 at 12:00 Triamcinolone Acetonide (Kenalog-40) 40 mg 1X ONCE IM Last administered on 10/17/21at 12:15; Start 10/17/21 at 12:15; Stop 10/17/21 at 12:16; Status DC Bupivacaine HCl (Sensorcaine-Mpf 0.25%) 10 ml 1X ONCE IJ Last administered on 10/17/21at 12:00; Start 10/17/21 at 12:00; Stop 10/17/21 at 12:01; Status DC Magnesium Sulfate 100 ml @ 25 mls/hr 1X ONCE IV Last administered on 10/18/21at 14:11; Start 10/18/21 at 14:30; Stop 10/18/21 at 18:29; Status DC Vitamin B Complex (Folbic Tablet) 1 tab DAILY PO Last administered on 10/24/21at 09:28; Start 10/18/21 at 14:30 Non-Formulary Medication (L-Carnitine 500 Mg Capsule) 1 ea DAILY PO Last administered on 10/24/21 09:35; Start 10/19/21 at 13:00 Insulin Human Lispro (HumaLOG) 0-5 UNITS PRN BFRMEAL PRN SQ SEE ADMIN INSTRUCTIONS Last administered on 10/22/21at 12:46; Start 10/19/21 at 15:15 Oxycodone HCl (Roxicodone) 5 mg PRN Q3HRS PRN PO MODERATE-SEVERE PAIN Last administered on 10/24/21 09:27; Start 10/22/21 at 16:30 Diazepam (Valium) 5 mg PRN TID PRN PO ANXIETY Last administered on 10/23/21 23:04; Start 10/22/21 at 19:30 Active Scripts Active Dok (Docusate Sodium) 100 Mg Capsule 100 Mg PO PRN BID PRN 30 Days Tylenol (Acetaminophen) 325 Mg Tablet 650 Mg PO PRN Q4HRS PRN 30 Days Valium (Diazepam) 5 Mg Tablet 5 Mg PO TID Atorvastatin Calcium 10 Mg Tablet 10 Mg PO QHS Reported Midodrine Hcl 2.5 Mg Tablet 2.5 Mg PO PRN 1X PRN Aspirin 81 Mg Tab.chew 81 Mg PO DAILY Baclofen 10 Mg Tablet 10 Mg PO BID Lyrica (Pregabalin) 100 Mg Capsule 100 Mg PO BID 30 Days Polyethylene Glycol 3350 2,500 Gm Powder 17 Gm PO DAILY 30 Days Micatin (Miconazole Nitrate) 14 Gm Cream..g. 1 Crispin TP TID Tradjenta (Linagliptin) 5 Mg Tablet 5 Mg PO DAILY Lidocaine PATCH (Lidocaine) 1 Each Adh..patch 1 Each TP DAILY REMOVE AFTER 12 HOURS Levemir (Insulin Detemir) 100 Unit/1 Ml Vial 4 Unit SQ HS Hydroxyzine Hcl 25 Mg Tablet 25 Mg PO PRN Q6HRS PRN Fluticasone Propionate Nasal Star (Fluticasone Propionate) 16 Gm Star.susp 2 Star NS DAILY Diclofenac Sodium 100 Gm Gel..gram. 100 Gm TP PRN TID PRN Losartan Potassium 100 Mg Tablet 25 Tab PO DAILY08 Vitals/I & O Vital Sign - Last 24 Hours 10/23/21 10/23/21 10/23/21 10/23/21 11:00 12:53 13:23 15:01 Temp 98.5 97.9 98.5 97.9 Pulse 76 81 Resp 16 18 B/P (MAP) 116/57 (76) 153/70 (97) Pulse Ox 93 94 O2 Delivery Room Air Room Air Room Air Room Air 10/23/21 10/23/21 10/23/21 10/23/21 17:48 18:18 19:00 20:05 Temp 98.4 98.4 Pulse 85 Resp 20 B/P (MAP) 118/62 (80) Pulse Ox 93 O2 Delivery Room Air Room Air Room Air Room Air 10/23/21 10/23/21 10/23/21 10/23/21 21:08 21:38 21:38 22:08 Resp 20 20 20 20 O2 Delivery Room Air Room Air Room Air Room Air 10/23/21 10/24/21 10/24/21 10/24/21 23:00 00:02 00:32 03:00 Temp 99.4 97.5 99.4 97.5 Pulse 74 60 Resp 20 20 20 18 B/P (MAP) 117/58 (77) 95/50 (65) Pulse Ox 97 95 O2 Delivery Room Air Room Air Room Air Room Air 10/24/21 10/24/21 10/24/21 10/24/21 03:04 03:34 06:15 07:00 Temp 98.4 98.4 Pulse 57 Resp 20 20 20 18 B/P (MAP) 116/63 (80) Pulse Ox 97 O2 Delivery Room Air Room Air Room Air Room Air 10/24/21 09:28 Pulse 57 B/P (MAP) 116/63 Intake and Output 10/23/21 10/23/21 10/24/21 15:00 23:00 07:00 Intake Total 120 ml 120 ml 200 ml Output Total 775 ml Balance 120 ml -655 ml 200 ml Justifications for Admission Other Justification uncontrolled diabetes TERRY JURADO MD Oct 24, 2021 10:13
[2021-10-24 11:00] VITALS: BP 140/73
[2021-10-24] MEDS: diphenhydrAMINE HCL 25 MG CAPSULE PO PRN (11:44)
[2021-10-24 15:00] VITALS: BP 139/73
[2021-10-24] MEDS: ACETAMINOPHEN 325 MG TABLET. PO PRN (15:43)
--- NOTE | 2021-10-24 16:38 | PDOC ---
Provider Note Date of Service: DATE: 10/24/21 TIME: 16:37 Provider Note patient asleep spoke with sister per telephone Justifications for Admission Other Justification uncontrolled diabetes TODD RIVERA APRN Oct 24, 2021 16:38
[2021-10-24 19:00] VITALS: BP 142/60
[2021-10-24] MEDS: LIDOCAINE (700MG/PATCH) PATCH. TP SCH (21:00)
[2021-10-24] MEDS: ATORVASTATIN CALCIUM 10 MG TABLET. PO SCH (21:53)
[2021-10-24] MEDS: INSULIN GLARGINE SYRINGE. SQ SCH (22:01)
[2021-10-24 23:04] VITALS: BP 130/60
[2021-10-24] MEDS: diazePAM 5 MG TABLET PO PRN (23:54)
[2021-10-25] MEDS: oxyCODONE IR 5 MG TABLET PO PRN ×5 (01:05→21:16)
[2021-10-25 03:00] VITALS: BP 106/55
[2021-10-25] MEDS: BACLOFEN 10 MG TABLET. PO SCH ×3 (06:15→17:50)
[2021-10-25 07:00] VITALS: BP 102/52
--- NOTE | 2021-10-25 08:28 | PDOC ---
PROGRESS NOTES Date of Service DATE: 10/25/21 TIME: 08:26 Subjective Subjective No new complaints. Objective Objective Vital Signs Date Time Temp Pulse Resp B/P (MAP) Pulse Ox O2 Delivery O2 Flow Rate FiO2 10/25/21 05:49 20 Room Air 10/25/21 03:00 98.4 68 106/55 (72) 95 98.4 10/24/21 13:00 2.0 Intake and Output 10/25/21 07:00 Intake Total 780 ml Output Total 2100 ml Balance -1320 ml Intake Oral 780 ml Output Urine Total 2100 ml # Bowel Movements 1 Physical Exam Physical Exam He is alert,supine in bed and is comfortable and no change with his neurological status and physical and occupational therapy are working with him. Plan Plan of Care Social service is working on transfer to retirement care unit. Comment Review of Relevant I have reviewed the following items michelle (where applicable) has been applied. Labs Laboratory Tests Test 10/23/21 11:24 10/23/21 16:43 10/23/21 20:43 10/24/21 07:29 Glucose (Fingerstick) 157 mg/dL (70-99) 186 mg/dL (70-99) 175 mg/dL (70-99) 144 mg/dL (70-99) Test 10/24/21 20:40 10/25/21 07:52 Glucose (Fingerstick) 174 mg/dL (70-99) 128 mg/dL (70-99) Laboratory Tests Test 10/24/21 20:40 10/25/21 07:52 Glucose (Fingerstick) 174 mg/dL (70-99) 128 mg/dL (70-99) Microbiology 10/01/21 Urine Culture - Final, Complete Escherichia Coli Escherichia Coli#2 Medications Current Medications Fentanyl Citrate (Fentanyl 2ml Vial) 25 mcg PRN Q5MIN PRN IVP MILD PAIN 1-3; Start 09/25/21 at 06:00; Stop 09/25/21 at 20:00; Status DC Fentanyl Citrate (Fentanyl 2ml Vial) 50 mcg PRN Q5MIN PRN IVP MODERATE PAIN 4-6 Last administered on 09/25/21at 13:48; Start 09/25/21 at 06:00; Stop 09/25/21 at 20:00; Status DC Morphine Sulfate (Morphine Sulfate) 1 mg PRN Q10MIN PRN IVP SEVERE PAIN 7-10 Last administered on 09/25/21at 14:21; Start 09/25/21 at 06:00; Stop 09/25/21 at 20:00; Status DC Ringer's Solution 1,000 ml @ 30 mls/hr Q24H IV Last administered on 09/25/21at 12:54; Start 09/25/21 at 06:00; Stop 09/25/21 at 17:59; Status DC Hydromorphone HCl (Dilaudid) 0.5 mg PRN Q10MIN PRN IVP SEVERE PAIN 7-10, 2nd CHOICE Last administered on 09/25/21at 16:53; Start 09/25/21 at 06:00; Stop 09/25/21 at 20:00; Status DC Prochlorperazine Edisylate (Compazine) 5 mg PACU PRN PRN IVP NAUSEA, MRX1; Start 09/25/21 at 06:00; Stop 09/25/21 at 20:00; Status DC Cefazolin Sodium 1 gm/Sodium Chloride 1,000 ml @ 1,000 mls/hr 1X ONCE IRR Last administered on 09/25/21at 10:14; Start 09/25/21 at 06:00; Stop 09/25/21 at 06:59; Status DC Cefazolin Sodium/ Dextrose 50 ml @ 100 mls/hr 1X PREOP PRN IV PRIOR TO PROCEDURE Last administered on 09/25/21at 09:30; Start 09/25/21 at 06:00; Stop 09/25/21 at 13:39; Status DC Insulin Human Lispro (HumaLOG VIAL for OP,RR ONLY) 0-10 units PRN Q1HR PRN SQ PER PROTOCOL Last administered on 09/25/21at 17:01; Start 09/25/21 at 07:00; Stop 09/25/21 at 18:00; Status DC Bupivacaine HCl/ Epinephrine Bitart (Sensorcain-Epi 0.5% Kit) 30 ml STK-MED ONCE INJ Last administered on 09/25/21at 10:14; Start 09/25/21 at 10:14; Stop 09/25/21 at 10:30; Status DC Ketorolac Tromethamine (Toradol Im) 60 mg STK-MED ONCE INJ Last administered on 09/25/21at 10:14; Start 09/25/21 at 10:14; Stop 09/25/21 at 10:30; Status DC Thrombin 20,000 unit STK-MED ONCE TP Last administered on 09/25/21at 10:14; Start 09/25/21 at 10:14; Stop 09/25/21 at 10:30; Status DC Gelatin (Gelfoam Size 100) 1 each STK-MED ONCE TP Last administered on 09/25/21 10:14; Start 09/25/21 at 10:14; Stop 09/25/21 at 10:30; Status DC Acetaminophen (Tylenol) 650 mg PRN Q4HRS PRN PO TEMP OVER 100.4F OR MILD PAIN Last administered on 10/24/21 15:43; Start 09/25/21 at 12:30 Aspirin (Aspirin Chewable) 81 mg DAILY PO Last administered on 09/26/21 08:30; Start 09/26/21 at 09:00; Stop 09/28/21 at 17:19; Status DC Atorvastatin Calcium (Lipitor) 10 mg QHS PO Last administered on 10/24/21 21:53; Start 09/25/21 at 21:00 Baclofen (Lioresal) 10 mg BID PO Last administered on 10/16/21 08:26; Start 09/25/21 at 21:00; Stop 10/16/21 at 13:21; Status DC Diazepam (Valium) 5 mg TID PO Last administered on 10/22/21 12:35; Start 09/25/21 at 14:00; Stop 10/22/21 at 19:23; Status DC Docusate Sodium (Colace) 100 mg PRN BID PRN PO HARD STOOLS Last administered on 10/15/21at 10:22; Start 09/25/21 at 12:30 Fluticasone Propionate (Flonase) 2 spray DAILY NS Last administered on 10/17/21 12:58; Start 09/26/21 at 09:00 Hydroxyzine HCl (Atarax) 25 mg PRN Q6HRS PRN PO Itching (2ND Choice) Last administered on 10/24/21 20:22; Start 09/25/21 at 12:30 Lidocaine (Lidoderm) 1 patch QHS TP Last administered on 10/03/21at 23:31; Start 09/25/21 at 20:00; Stop 10/05/21 at 01:01; Status DC Linagliptin (Tradjenta) 5 mg DAILY PO Last administered on 10/24/21 09:28; Start 09/25/21 at 13:00 Miconazole Nitrate (Monistat-Derm) 1 crispin TID TP Last administered on 10/04/21at 20:08; Start 09/25/21 at 21:00; Stop 10/05/21 at 13:23; Status DC Midodrine (Proamatine) 2.5 mg PRN 1X PRN PO hypotension Last administered on 09/27/21 08:56; Start 09/25/21 at 12:30 Oxycodone HCl (Roxicodone) 10 mg PRN Q6HRS PRN PO MODERATE-SEVERE PAIN Last administered on 10/22/21at 12:35; Start 09/25/21 at 12:30; Stop 10/22/21 at 16:20; Status DC Diclofenac Sodium (Voltaren) 1 crispin PRN TID PRN TP PAIN CONTROL; Start 09/25/21 at 13:15; Stop 09/25/21 at 18:37; Status DC Insulin Glargine (Lantus Syringe) 4 unit QHS SQ Last administered on 10/24/21at 22:01; Start 09/25/21 at 21:00 Losartan Potassium (Cozaar) 25 mg DAILY08 PO Last administered on 10/24/21 09:28; Start 09/26/21 at 08:00 Polyethylene Glycol (miraLAX PACKET) 17 gm DAILY PO Last administered on 10/13/21at 08:53; Start 09/25/21 at 14:00 Pregabalin (Lyrica) 100 mg BID PO Last administered on 10/24/21at 21:53; Start 09/25/21 at 21:00 Acetaminophen (Tylenol) 650 mg PRN Q6HRS PRN PO MILD PAIN / TEMP > 100.3'F; Start 09/25/21 at 12:30; Status Cancel Al Hydroxide/Mg Hydroxide (Mylanta Plus Xs) 30 ml PRN Q3HRS PRN PO HEARTBURN / GAS; Start 09/25/21 at 12:30 Calcium Carbonate/ Glycine (Tums) 500 mg PRN Q3HRS PRN PO INDIGESTION; Start 09/25/21 at 12:30 Diphenhydramine HCl (Benadryl) 25 mg PRN Q6HRS PRN PO ITCHING (1ST CHOICE) Last administered on 10/24/21at 11:44; Start 09/25/21 at 12:30 Naloxone HCl (Narcan) 0.1 mg PRN Q2MIN PRN IV SEE COMMENTS; Start 09/25/21 at 12:30 Sodium Chloride (Normal Saline Flush) 3 ml QSHIFT PRN IV AFTER MEDS AND BLOOD DRAWS; Start 09/25/21 at 12:30 Potassium Chloride/Sodium Chloride 1,000 ml @ 75 mls/hr [id number] IV Last administered on 09/26/21at 07:00; Start 09/25/21 at 12:30; Stop 09/26/21 at 17:33; Status DC Magnesium Hydroxide (Milk Of Magnesia) 2,400 mg PRN Q12HR PRN PO CONSTIPATION; Start 09/25/21 at 12:30 Cefazolin Sodium (Ancef) 1 gm Q8H IVP Last administered on 09/26/21at 04:14; Start 09/25/21 at 18:00; Stop 09/26/21 at 10:01; Status DC Fentanyl Citrate (Fentanyl 2ml Vial) 50 mcg PRN Q2HR PRN IVP MODERATE TO SEVERE PAIN Last administered on 10/05/21at 22:46; Start 09/25/21 at 12:30 Dextrose (Dextrose 50%-Water Syringe) 12.5 gm PRN Q15MIN PRN IV SEE COMMENTS; Start 09/25/21 at 12:30; Status Cancel Dextrose (Iv Dextrose 5%) 250 ml PRN Q15MIN PRN IV SEE COMMENTS; Start 09/25/21 at 12:30; Status Cancel Gelatin (Gelfoam Size 100) 1 each STK-MED ONCE .ROUTE ; Start 09/25/21 at 06:37; Stop 09/25/21 at 14:55; Status DC Bupivacaine HCl/ Epinephrine Bitart (Sensorcain-Epi 0.5% Kit) 30 ml STK-MED ONCE .ROUTE ; Start 09/25/21 at 06:37; Stop 09/25/21 at 14:55; Status DC Ketorolac Tromethamine (Toradol Im) 60 mg STK-MED ONCE .ROUTE ; Start 09/25/21 at 06:37; Stop 09/25/21 at 14:55; Status DC Thrombin 20,000 unit STK-MED ONCE TP ; Start 09/25/21 at 06:38; Stop 09/25/21 at 14:55; Status DC Propofol (Diprivan) 200 mg STK-MED ONCE IV ; Start 09/25/21 at 05:54; Stop 09/25/21 at 14:57; Status DC Lidocaine HCl (Lidocaine Pf 2% Vial) 5 ml STK-MED ONCE .ROUTE ; Start 09/25/21 at 05:54; Stop 09/25/21 at 14:57; Status DC Ondansetron HCl (Zofran) 4 mg STK-MED ONCE .ROUTE ; Start 09/25/21 at 05:54; Stop 09/25/21 at 14:57; Status DC Phenylephrine HCl (Ramone-Synephrine Inj) 10 mg STK-MED ONCE .ROUTE ; Start 09/25/21 at 05:54; Stop 09/25/21 at 14:57; Status DC Propofol 50 ml @ As Directed STK-MED ONCE IV ; Start 09/25/21 at 05:54; Stop 09/25/21 at 14:57; Status DC Dexamethasone Sodium Phosphate (Decadron) 4 mg STK-MED ONCE .ROUTE ; Start 09/25/21 at 05:54; Stop 09/25/21 at 14:57; Status DC Fentanyl Citrate (Fentanyl 2ml Vial) 100 mcg STK-MED ONCE .ROUTE ; Start 09/25/21 at 05:54; Stop 09/25/21 at 14:57; Status DC Succinylcholine Chloride (Anectine) 200 mg STK-MED ONCE .ROUTE ; Start 09/25/21 a t 05:54; Stop 09/25/21 at 14:57; Status DC Remifentanil HCl (Ultiva) 1 mg STK-MED ONCE IV ; Start 09/25/21 at 05:54; Stop 09/25/21 at 14:57; Status DC Glycopyrrolate (Robinul) 1 mg STK-MED ONCE .ROUTE ; Start 09/25/21 at 07:11; Stop 09/25/21 at 15:01; Status DC Propofol 50 ml @ As Directed STK-MED ONCE IV ; Start 09/25/21 at 08:07; Stop 09/25/21 at 15:02; Status DC Ketamine HCl (Ketamine) 50 mg STK-MED ONCE .ROUTE ; Start 09/25/21 at 08:15; Stop 09/25/21 at 15:02; Status DC Hydromorphone HCl (Dilaudid) 2 mg STK-MED ONCE .ROUTE ; Start 09/25/21 at 10:44; Stop 09/25/21 at 15:03; Status DC Fentanyl Citrate (Fentanyl 2ml Vial) 100 mcg STK-MED ONCE .ROUTE ; Start 09/25/21 at 13:26; Stop 09/25/21 at 15:04; Status DC Morphine Sulfate (Morphine Sulfate) 2 mg STK-MED ONCE .ROUTE ; Start 09/25/21 at 14:04; Stop 09/25/21 at 15:05; Status DC Hydromorphone HCl (Dilaudid) 2 mg STK-MED ONCE .ROUTE ; Start 09/25/21 at 14:54; Stop 09/25/21 at 15:06; Status DC Menthol/Methyl Salicylate (Bengay Greaseless Cream) 1 crispin PRN Q30MIN PRN TP MUSCLE PAIN Last administered on 10/02/21at 21:03; Start 09/25/21 at 18:45 Mupirocin (Bactroban) 1 crispin BID NS Last administered on 10/12/21at 21:09; Start 09/26/21 at 09:00; Stop 10/13/21 at 07:56; Status DC Dexamethasone Sodium Phosphate (Decadron) 10 mg 1X ONCE IVP Last administered on 09/26/21at 07:31; Start 09/26/21 at 07:30; Stop 09/26/21 at 07:31; Status DC Cefazolin Sodium 1 gm/Sodium Chloride 1,000 ml @ 1,000 mls/hr 1X ONCE IRR Last administered on 09/26/21at 11:52; Start 09/26/21 at 10:30; Stop 09/26/21 at 11:29; Status DC Cefazolin Sodium (Ancef) 1 gm STK-MED ONCE IVP ; Start 09/26/21 at 10:05; Stop 09/26/21 at 10:06; Status DC Lidocaine HCl (Lidocaine Pf 2% Vial) 5 ml STK-MED ONCE .ROUTE ; Start 09/26/21 at 10:18; Stop 09/26/21 at 10:18; Status DC Ondansetron HCl (Zofran) 4 mg STK-MED ONCE .ROUTE ; Start 09/26/21 at 10:18; Stop 09/26/21 at 10:18; Status DC Propofol (Diprivan) 200 mg STK-MED ONCE IV ; Start 09/26/21 at 10:18; Stop 09/26/21 at 10:19; Status DC Dexamethasone Sodium Phosphate (Decadron) 4 mg STK-MED ONCE .ROUTE ; Start 09/26/21 at 10:18; Stop 09/26/21 at 10:19; Status DC Sevoflurane (Ultane) 30 ml STK-MED ONCE IH ; Start 09/26/21 at 10:18; Stop 09/26/21 at 10:19; Status DC Fentanyl Citrate (Fentanyl 2ml Vial) 100 mcg STK-MED ONCE .ROUTE ; Start 09/26/21 at 10:19; Stop 09/26/21 at 10:19; Status DC Rocuronium Hancock (Zemuron) 50 mg STK-MED ONCE .ROUTE ; Start 09/26/21 at 10:19; Stop 09/26/21 at 10:19; Status DC Insulin Human Lispro (HumaLOG VIAL for OP,RR ONLY) 0-10 units PRN Q1HR PRN SQ PER PROTOCOL Last administered on 09/26/21at 15:11; Start 09/26/21 at 10:30; Stop 09/26/21 at 18:00; Status DC Sugammadex Sodium (Bridion) 200 mg 1X ONCE IVP Last administered on 09/26/21at 10:30; Start 09/26/21 at 10:30; Stop 09/26/21 at 10:31; Status DC Gelatin (Gelfoam Size 100) 1 each STK-MED ONCE .ROUTE Last administered on 09/26/21at 11:52; Start 09/26/21 at 10:30; Stop 09/26/21 at 10:30; Status DC Bupivacaine HCl/ Epinephrine Bitart (Sensorcain-Epi 0.5% Kit) 30 ml STK-MED ONCE .ROUTE ; Start 09/26/21 at 10:30; Stop 09/26/21 at 10:30; Status DC Ketorolac Tromethamine (Toradol Im) 60 mg STK-MED ONCE .ROUTE ; Start 09/26/21 at 10:30; Stop 09/26/21 at 10:30; Status DC Thrombin 20,000 unit STK-MED ONCE TP Last administered on 09/26/21at 11:52; Start 09/26/21 at 10:30; Stop 09/26/21 at 10:31; Status DC Cefazolin Sodium/ Dextrose 50 ml @ As Directed STK-MED ONCE IV ; Start 09/26/21 at 10:32; Stop 09/26/21 at 10:32; Status DC Vancomycin HCl 1 gm/Sodium Chloride 250 ml @ 250 mls/hr PREOP PRN PRN IV PRIOR TO PROCEDURE; Start 09/26/21 at 10:45; Stop 09/26/21 at 14:00; Status DC Cefazolin Sodium/ Dextrose 50 ml @ 100 mls/hr 1X ONCE IV Last administered on 09/26/21at 11:00; Start 09/26/21 at 11:00; Stop 09/26/21 at 11:29; Status DC Dexamethasone Sodium Phosphate (Decadron) 4 mg STK-MED ONCE .ROUTE ; Start 09/26/21 at 11:04; Stop 09/26/21 at 11:04; Status DC Glycopyrrolate (Robinul) 1 mg STK-MED ONCE .ROUTE ; Start 09/26/21 at 11:04; Stop 09/26/21 at 11:04; Status DC Hydromorphone HCl (Dilaudid) 2 mg STK-MED ONCE .ROUTE ; Start 09/26/21 at 11:56; Stop 09/26/21 at 11:56; Status DC Fentanyl Citrate (Fentanyl 2ml Vial) 25 mcg PRN Q5MIN PRN IVP MILD PAIN 1-3; Start 09/26/21 at 14:30; Stop 09/26/21 at 18:15; Status DC Fentanyl Citrate (Fentanyl 2ml Vial) 50 mcg PRN Q5MIN PRN IVP MODERATE PAIN 4- 6; Start 09/26/21 at 14:30; Stop 09/26/21 at 18:15; Status DC Morphine Sulfate (Morphine Sulfate) 1 mg PRN Q10MIN PRN IVP SEVERE PAIN 7-10; Start 09/26/21 at 14:30; Stop 09/26/21 at 18:15; Status DC Ringer's Solution 1,000 ml @ 30 mls/hr Q24H IV Last administered on 09/26/21at 15:18; Start 09/26/21 at 14:30; Stop 09/26/21 at 21:00; Status DC Hydromorphone HCl (Dilaudid) 0.5 mg PRN Q10MIN PRN IVP SEVERE PAIN 7-10, 2nd CHOICE; Start 09/26/21 at 14:30; Stop 09/26/21 at 18:15; Status DC Prochlorperazine Edisylate (Compazine) 5 mg PACU PRN PRN IVP NAUSEA, MRX1; Start 09/26/21 at 14:30; Stop 09/26/21 at 21:00; Status DC Fentanyl Citrate (Fentanyl 2ml Vial) 100 mcg STK-MED ONCE .ROUTE ; Start 09/26/21 at 14:23; Stop 09/26/21 at 14:25; Status DC Fentanyl Citrate (Fentanyl 2ml Vial) 25 mcg PRN Q5MIN PRN IVP MILD PAIN 1-3; Start 09/26/21 at 14:30; Stop 09/27/21 at 14:29; Status UNV Fentanyl Citrate (Fentanyl 2ml Vial) 50 mcg PRN Q5MIN PRN IVP MODERATE PAIN 4- 6; Start 09/26/21 at 14:30; Stop 09/27/21 at 14:29; Status UNV Morphine Sulfate (Morphine Sulfate) 1 mg PRN Q10MIN PRN IVP SEVERE PAIN 7-10; Start 09/26/21 at 14:30; Stop 09/27/21 at 14:29; Status UNV Ringer's Solution 1,000 ml @ 30 mls/hr Q24H IV ; Start 09/26/21 at 14:30; Stop 09/27/21 at 02:29; Status UNV Hydromorphone HCl (Dilaudid) 0.5 mg PRN Q10MIN PRN IVP SEVERE PAIN 7-10, 2nd CHOICE; Start 09/26/21 at 14:30; Stop 09/27/21 at 14:29; Status UNV Prochlorperazine Edisylate (Compazine) 5 mg PACU PRN PRN IVP NAUSEA, MRX1; Start 09/26/21 at 14:30; Stop 09/27/21 at 14:29; Status UNV Dexamethasone Sodium Phosphate (Decadron) 4 mg Q6HRS IVP Last administered on 09/28/21at 05:06; Start 09/26/21 at 18:00; Stop 09/28/21 at 06:00; Status DC Sodium Chloride 1,000 ml @ 100 mls/hr Q10H IV Last administered on 10/05/21at 06:41; Start 09/26/21 at 17:30; Stop 10/05/21 at 13:48; Status DC Cefazolin Sodium (Ancef) 1 gm Q8HRS IVP ; Start 09/27/21 at 06:00; Stop 09/27/21 at 05:47; Status DC Vancomycin HCl 1 gm/Sodium Chloride 250 ml @ 166.667 mls/hr 1X ONCE IV Last administered on 09/27/21at 06:27; Start 09/27/21 at 06:00; Stop 09/27/21 at 07:29; Status DC Gadoterate Meglumine (Clariscan) 19 ml 1X ONCE IVP Last administered on 09/29/21at 10:32; Start 09/29/21 at 08:15; Stop 09/29/21 at 08:17; Status DC Bisacodyl (Dulcolax Supp) 10 mg PRN DAILY PRN [place] CONSTIPATION; Start 09/29/21 at 14:15 Lactulose (Lactulose) 20 gm PRN DAILY PRN PO CONSTIPATION, 2nd choice Last administered on 10/01/21at 08:35; Start 09/29/21 at 14:30 Ascorbic Acid (Vitamin C) 500 mg DAILY PO Last administered on 10/24/21at 09:27; Start 10/02/21 at 10:00 Levofloxacin/ Dextrose 100 ml @ 100 mls/hr Q24H IV Last administered on 10/02/21at 12:15; Start 10/02/21 at 12:00; Stop 10/03/21 at 08:57; Status DC Levofloxacin/ Dextrose 50 ml @ 50 mls/hr Q24H IV Last administered on 10/06/21at 15:19; Start 10/03/21 at 12:00; Stop 10/06/21 at 23:00; Status DC Lactobacillus Rhamnosus (Culturelle) 1 cap BID PO Last administered on 10/24/21at 21:53; Start 10/03/21 at 21:00 Lidocaine (Lidoderm) 1 patch QHS TP Last administered on 10/24/21at 21:00; Start 10/04/21 at 22:00 Levofloxacin (Levaquin) 250 mg DAILY06 PO Last administered on 10/11/21at 06:13; Start 10/07/21 at 06:00; Stop 10/11/21 at 12:00; Status DC Insulin Human Lispro (HumaLOG) 0-5 UNITS TIDWMEALS SQ Last administered on at 12:16; Start 10/12/21 at 08:00; Stop 10/19/21 at 15:15; Status DC Dextrose (Dextrose 50%-Water Syringe) 12.5 gm PRN Q15MIN PRN IV SEE COMMENTS; Start 10/11/21 at 19:00 Dextrose (Iv Dextrose 5%) 250 ml PRN Q15MIN PRN IV SEE COMMENTS; Start 10/11/21 at 19:00 Potassium Chloride (Klor-Con) 40 meq 1X ONCE PO Last administered on 10/15/21at 10:21; Start 10/15/21 at 10:30; Stop 10/15/21 at 10:31; Status DC Magnesium Sulfate 50 ml @ 25 mls/hr 1X ONCE IV Last administered on 10/15/21at 10:20; Start 10/15/21 at 10:30; Stop 10/15/21 at 12:29; Status DC Baclofen (Lioresal) 10 mg Q8HRS PO Last administered on 10/17/21at 06:02; Start 10/16/21 at 22:00; Stop 10/17/21 at 11:58; Status DC Baclofen (Lioresal) 10 mg Q6HRS PO Last administered on 10/25/21at 06:15; Start 10/17/21 at 12:00 Triamcinolone Acetonide (Kenalog-40) 40 mg 1X ONCE IM Last administered on 10/17/21at 12:15; Start 10/17/21 at 12:15; Stop 10/17/21 at 12:16; Status DC Bupivacaine HCl (Sensorcaine-Mpf 0.25%) 10 ml 1X ONCE IJ Last administered on 10/17/21at 12:00; Start 10/17/21 at 12:00; Stop 10/17/21 at 12:01; Status DC Magnesium Sulfate 100 ml @ 25 mls/hr 1X ONCE IV Last administered on 10/18/21at 14:11; Start 10/18/21 at 14:30; Stop 10/18/21 at 18:29; Status DC Vitamin B Complex (Folbic Tablet) 1 tab DAILY PO Last administered on 10/24/21 09:28; Start 10/18/21 at 14:30 Non-Formulary Medication (L-Carnitine 500 Mg Capsule) 1 ea DAILY PO Last administered on 10/24/21 09:35; Start 10/19/21 at 13:00 Insulin Human Lispro (HumaLOG) 0-5 UNITS PRN BFRMEAL PRN SQ SEE ADMIN INSTRUCTIONS Last administered on 10/22/21 12:46; Start 10/19/21 at 15:15 Oxycodone HCl (Roxicodone) 5 mg PRN Q3HRS PRN PO MODERATE-SEVERE PAIN Last administered on 10/25/21at 05:19; Start 10/22/21 at 16:30 Diazepam (Valium) 5 mg PRN TID PRN PO ANXIETY Last administered on 10/24/21 23:54; Start 10/22/21 at 19:30 Active Scripts Active Dok (Docusate Sodium) 100 Mg Capsule 100 Mg PO PRN BID PRN 30 Days Tylenol (Acetaminophen) 325 Mg Tablet 650 Mg PO PRN Q4HRS PRN 30 Days Valium (Diazepam) 5 Mg Tablet 5 Mg PO TID Atorvastatin Calcium 10 Mg Tablet 10 Mg PO QHS Reported Midodrine Hcl 2.5 Mg Tablet 2.5 Mg PO PRN 1X PRN Aspirin 81 Mg Tab.chew 81 Mg PO DAILY Baclofen 10 Mg Tablet 10 Mg PO BID Lyrica (Pregabalin) 100 Mg Capsule 100 Mg PO BID 30 Days Polyethylene Glycol 3350 2,500 Gm Powder 17 Gm PO DAILY 30 Days Micatin (Miconazole Nitrate) 14 Gm Cream..g. 1 Crispin TP TID Tradjenta (Linagliptin) 5 Mg Tablet 5 Mg PO DAILY Lidocaine PATCH (Lidocaine) 1 Each Adh..patch 1 Each TP DAILY REMOVE AFTER 12 HOURS Levemir (Insulin Detemir) 100 Unit/1 Ml Vial 4 Unit SQ HS Hydroxyzine Hcl 25 Mg Tablet 25 Mg PO PRN Q6HRS PRN Fluticasone Propionate Nasal [place] (Fluticasone Propionate) 16 Gm [place].susp 2 [place] NS DAILY Diclofenac Sodium 100 Gm Gel..gram. 100 Gm TP PRN TID PRN Losartan Potassium 100 Mg Tablet 25 Tab PO DAILY08 Vitals/I & O Vital Sign - Last 24 Hours 10/24/21 10/24/21 10/24/21 10/24/21 09:28 11:00 13:00 15:00 Temp 98.1 97.7 98.1 97.7 Pulse 57 74 75 Resp 18 18 B/P (MAP) 116/63 140/73 (95) 139/73 (95) Pulse Ox 98 98 97 O2 Delivery Room Air Room Air Room Air O2 Flow Rate 2.0 10/24/21 10/24/21 10/24/21 10/24/21 17:58 19:00 20:20 21:54 Temp 98.4 98.4 Pulse 69 Resp 20 14 20 B/P (MAP) 142/60 (87) Pulse Ox 93 O2 Delivery Room Air Room Air Room Air 10/24/21 10/24/21 10/25/21 10/25/21 22:24 23:04 01:05 01:35 Temp 98.2 98.2 Pulse 74 Resp 20 14 20 20 B/P (MAP) 130/60 (83) Pulse Ox 94 O2 Delivery Room Air Room Air Room Air Room Air 10/25/21 10/25/21 10/25/21 03:00 05:19 05:49 Temp 98.4 98.4 Pulse 68 Resp 14 20 20 B/P (MAP) 106/55 (72) Pulse Ox 95 O2 Delivery Room Air Room Air Room Air Intake and Output 10/24/21 10/24/21 10/25/21 15:00 23:00 07:00 Intake Total 480 ml 300 ml Output Total 2100 ml Balance 480 ml -1800 ml Justifications for Admission Other Justification uncontrolled diabetes TERRY JURADO MD Oct 25, 2021 08:28
[2021-10-25] MEDS: FLUTICASONE 50MCG/NASAL SPRAY 16GM BOTTLE. NS SCH (09:00)
[2021-10-25] MEDS: POLYETHYLENE GLYCOL 3350 17 GM PACKET. PO SCH (09:00)
[2021-10-25] MEDS: ASCORBIC ACID 500 MG TABLET PO SCH (09:13)
[2021-10-25] MEDS: PREGABALIN 50 MG CAPSULE PO SCH ×2 (09:14→21:17)
[2021-10-25] MEDS: VITAMIN B12,B9,B6 COMPLEX 1 TABLET. PO SCH (09:14)
[2021-10-25] MEDS: LINAGLIPTIN 5 MG TABLET PO SCH (09:15)
[2021-10-25] MEDS: LACTOBACILLUS RHAMNOSUS GG 1 CAPSULE. PO SCH ×2 (09:15→21:16)
[2021-10-25] MEDS: hydrOXYzine 25 MG TABLET PO PRN ×2 (09:15→23:01)
[2021-10-25] MEDS: LOSARTAN POTASSIUM 25 MG TABLET. PO SCH (09:15)
[2021-10-25] MEDS: CARNITINE 500 MG PO SCH (09:19)
--- NOTE | 2021-10-25 09:43 | PDOC ---
[employer] PROGRESS NOTE Date of Service DOS: DATE: 10/25/21 TIME: 09:43 Chief Complaint Chief Complaint Cervical spinal cord injury - Concern for C5 cord edema, cord compression, a right lateral C5 fracture, and concern for numerous ligamentous injuries. 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 S/p decompression 07/26/2021 and repeat surgeries 09/25 and 09/26 Diabetes - sliding scale plus basal HTN - prn hydralazine HLD - statin when taking PO Cervical laminectomy as per above, diabetes, hypertension, hyperlipidemia, arthritis, GERD, left knee arthroplasty and TIA S/p; IVC filter FEN - ADAT PPX - SCDs FULL CODE Dispo - Inpatient History of Present Illness History of Present Illness 10/25 Patient evaluated examined at bedside. Resting in bed no complaints. Just waiting on transfer to skilled facility. 10/24 Patient evaluated examined at bedside. Resting in bed without complaint. Continue therapy modalities. Working on placement. Discussed with bedside RN 10/23/2021 No acute events overnight. Patient seen examined bedside. Resting comfortably. No complaints at this time. No concerns from nursing. Pending neuro rehab pl acement. Patient's chart, labs, images were reviewed and discussed with RN 10/22/2021 Patient seen and examined bedside. No complaints today. 10/21/2021 No acute events overnight. Patient seen examined bedside. Still working with PT OT and pending neuro rehab placement. Insurance issues still pending. Complaining of weakness is about the same and having pain in his extremities that have somewhat improved. 3 422 No acute events overnight. Patient seen examined bedside. Injection received in right shoulder with Dr. JURADO. Patient tolerated procedure well. Spasms have improved. Pending placement to neuro rehab as a possibility. Patient's chart, labs, images were reviewed and discussed with RN 10/19/2021 No acute events overnight. Patient seen examined bedside. Spasms have improved and pain overall has improved after adjustment with baclofen. Continuing with rehab modalities. Patient's chart, labs, images were reviewed and discussed with RN 3/2: Right shoulder radiograph with some degenerative changes. Had some spasming this morning, but feeling better currently. Mag 1.6. Discussed addition of B6, 9, 12 and needs for complex neuro rehab. 10/17/2021 No acute events overnight. Patient seen examined bedside. Still complaining of muscle spasms. Baclofen has been increased. He is already on Valium and Lyrica. Considering neurology consult for evaluation. Pending right shoulder x-ray. Patient's chart, labs, images were reviewed and discussed with RN 10/16: Seen in ICU notes spasming started again last night this happened about 6 times even when he tries to reach up and scratch his eyelid. Having some more pain in his right biceps and left Achilles area. 10/15: Seen bedside in ICU getting bed bath. Says his spasming is improved today having a little bit of shortness of breath but no cough. No chest pain. 10/14: Seen bedside in ICU. Still with spasming upon awakening in his hands and feet still with some weakness in his left foot. Poor appetite. 10/13: Patient seen and examined. Discussed with neurosurgery nurse practitioner Roberta 10/12: Patient seen and examined 10/11: Patient seen and examined. His discharge was held again as he was not accepted at [facility] 10/09: His sister is here as well discussed with her. Plan is to get the patient to [facility] custodial if they accept him 10/08: Patient seen and examined. He is moving his toes more each day 10/07: Patient seen and examined in the ICU (he is actually in overfull patient). He is working with his nurse to try to use his nurse button and remote control. Started to move his toes a little bit 10/06/2021 Patient seen and examined in the ICU I discussed the case with his sister again I also discussed the case with case management [facility] rehab may consider taking him after all now that he is improved over the past 3 days 10/05/2021 Patient seen and examined in the ICU His nurses are starting to get ready to clean him up His sister is present Discussed with RN Discussed with case management we are still awaiting rehab [facility] transfer if it can be arranged 10/04/2021 Patient seen and examined again in the ICU He remains very weak cannot move his legs was able to move his hands His sister is present I called case management they are checking into possibly if he could go to rehab [facility] Chart reviewed 10/03/2021 Patient seen and examined in the ICU Chart reviewed Discussed with RN Called case management We are hoping to get the patient transferred to [facility] rehab if possible (they are evaluating his admission criteria to rehab) 10/02/2021 Patient seen and examined in the ICU He is still unable to move his legs He is able to move his hands and arms slightly but is very weak at bedside Chart reviewed Discussed with RN I called case management to see if maybe he could go to [facility] rehab sometime soon 10/01 Patient evaluated examined at bedside. Continues to improve. Continue rehab. Plan discussed with bedside RN. 09/30 Patient evaluated examined at bedside. Clinically about the same from yes terday. Continue rehab modalities. Labs stable. Plan discussed with bedside RN. 09/29 Patient evaluated at bedside. Underwent MRI this morning. Symptoms very similar to yesterday but he feels like he is regaining some function. Pain controlled. PT OT. Hemoglovin stable. 09/28 Evaluate examined at bedside. Resting in bed had no complaints to me. Said pain is quite improved. Did okay with transfusion yesterday. Continue current treatments. PT/OT. Discussed with bedside RN. Roxi 09/27 Patient evaluated examined at bedside. Was resting in bed easily awoken able to answer some questions. Some movement in his upper extremities but very limited in lower. Transfuse 1 unit today. Plan discussed with RN. Mr Terrell is a 60-year-old male w/ PMHx prediabetes, HLD, HTN and recent fall in July 2021 with cervical myelopathy and s/p cervical decompression with ACDF C5-6 07/26/2021 On 09/25/21 underwent cervical laminectomy, C3, C4, C5, C6, partial C7 with lateral mass fusion C3 through C7, Posterior nstrumentation C3-C7 on the left and posterior instrumentation C-C6 on the right. On 09/26/21 returned to OR for cervical hematoma evacuation. Vitals/I&O Vitals/I&O: Vital Signs Date Time Temp Pulse Resp B/P (MAP) Pulse Ox O2 Delivery O2 Flow Rate FiO2 10/25/21 09:15 67 102/52 10/25/21 07:00 97.8 16 95 Room Air 97.8 10/24/21 13:00 2.0 I & O 10/24/21 10/24/21 10/25/21 15:00 23:00 07:00 Intake Total 480 ml 300 ml Output Total 2100 ml Balance 480 ml -1800 ml Physical Exam General: Alert, Oriented X3, Cooperative, No acute distress Heart: Regular rate Lungs: Clear Abdomen: Normal bowel sounds, Soft, No tenderness Extremities: No edema, Normal pulses Skin: Other Labs Labs: Laboratory Tests Test 10/24/21 20:40 10/25/21 07:52 Glucose (Fingerstick) 174 mg/dL (70-99) 128 mg/dL (70-99) Comment Review of Relevant I have reviewed the following items michelle (where applicable) has been applied. Justifications for Admission Other Justification uncontrolled diabetes STACY LÓPEZ MD Oct 25, 2021 09:43
[2021-10-25 10:54] VITALS: BP 121/62
[2021-10-25] MEDS: BACITRACIN TOPICAL OINT PACKET. TP SCH ×2 (13:00→21:00)
[2021-10-25 15:00] VITALS: BP 122/57
[2021-10-25 19:00] VITALS: BP 121/60
[2021-10-25] MEDS: LIDOCAINE (700MG/PATCH) PATCH. TP SCH (21:16)
[2021-10-25] MEDS: ATORVASTATIN CALCIUM 10 MG TABLET. PO SCH (21:16)
[2021-10-25] MEDS: INSULIN GLARGINE SYRINGE. SQ SCH (21:31)
--- NOTE | 2021-10-25 22:44 | PDOC ---
PROGRESS NOTES Date of Service DATE: 10/25/21 TIME: 22:40 Subjective Subjective Patient seen at 1330 POD #29 S/P Evacuation of epidural hematoma, s/p cervical laminectomy and fusion 09/25/21 pain well controlled Objective Objective Vital Signs Date Time Temp Pulse Resp B/P (MAP) Pulse Ox O2 Delivery O2 Flow Rate FiO2 10/25/21 21:16 20 Room Air 10/25/21 19:00 98.3 72 121/60 (80) 96 98.3 10/24/21 13:00 2.0 Intake and Output 10/25/21 06:59 Intake Total 780 ml Output Total 2100 ml Balance -1320 ml Intake Oral 780 ml Output Urine Total 2100 ml # Bowel Movements 1 Physical Exam General: Alert, Oriented X3, Cooperative, No acute distress Neuro: Normal speech, Other (3/5 distal arms, 4/5 left shoulder, 5/5 right shoulder, trace hip adduction bilaterally and trace right hip extension) Plan Plan of Care PT/ OT SCDs awaiting placement left message with sister Comment Review of Relevant I have reviewed the following items michelle (where applicable) has been applied. Labs Laboratory Tests Test 10/24/21 07:29 10/24/21 20:40 10/25/21 07:52 10/25/21 21:11 Glucose (Fingerstick) 144 mg/dL (70-99) 174 mg/dL (70-99) 128 mg/dL (70-99) 181 mg/dL (70-99) Laboratory Tests Test 10/25/21 07:52 10/25/21 21:11 Glucose (Fingerstick) 128 mg/dL (70-99) 181 mg/dL (70-99) Microbiology 10/01/21 Urine Culture - Final, Complete Escherichia Coli Escherichia Coli#2 Medications Current Medications Fentanyl Citrate (Fentanyl 2ml Vial) 25 mcg PRN Q5MIN PRN IVP MILD PAIN 1-3; Start 09/25/21 at 06:00; Stop 09/25/21 at 20:00; Status DC Fentanyl Citrate (Fentanyl 2ml Vial) 50 mcg PRN Q5MIN PRN IVP MODERATE PAIN 4-6 Last administered on 09/25/21at 13:48; Start 09/25/21 at 06:00; Stop 09/25/21 at 20:00; Status DC Morphine Sulfate (Morphine Sulfate) 1 mg PRN Q10MIN PRN IVP SEVERE PAIN 7-10 Last administered on 09/25/21at 14:21; Start 09/25/21 at 06:00; Stop 09/25/21 at 20:00; Status DC Ringer's Solution 1,000 ml @ 30 mls/hr Q24H IV Last administered on 09/25/21at 12:54; Start 09/25/21 at 06:00; Stop 09/25/21 at 17:59; Status DC Hydromorphone HCl (Dilaudid) 0.5 mg PRN Q10MIN PRN IVP SEVERE PAIN 7-10, 2nd CHOICE Last administered on 09/25/21at 16:53; Start 09/25/21 at 06:00; Stop 09/25/21 at 20:00; Status DC Prochlorperazine Edisylate (Compazine) 5 mg PACU PRN PRN IVP NAUSEA, MRX1; Start 09/25/21 at 06:00; Stop 09/25/21 at 20:00; Status DC Cefazolin Sodium 1 gm/Sodium Chloride 1,000 ml @ 1,000 mls/hr 1X ONCE IRR Last administered on 09/25/21at 10:14; Start 09/25/21 at 06:00; Stop 09/25/21 at 06:59; Status DC Cefazolin Sodium/ Dextrose 50 ml @ 100 mls/hr 1X PREOP PRN IV PRIOR TO PROCEDURE Last administered on 09/25/21at 09:30; Start 09/25/21 at 06:00; Stop 09/25/21 at 13:39; Status DC Insulin Human Lispro (HumaLOG VIAL for OP,RR ONLY) 0-10 units PRN Q1HR PRN SQ PER PROTOCOL Last administered on 09/25/21at 17:01; Start 09/25/21 at 07:00; Stop 09/25/21 at 18:00; Status DC Bupivacaine HCl/ Epinephrine Bitart (Sensorcain-Epi 0.5% Kit) 30 ml STK-MED ONCE INJ Last administered on 09/25/21at 10:14; Start 09/25/21 at 10:14; Stop 09/25/21 at 10:30; Status DC Ketorolac Tromethamine (Toradol Im) 60 mg STK-MED ONCE INJ Last administered on 2/7/22at 10:14; Start 09/25/21 at 10:14; Stop 09/25/21 at 10:30; Status DC Thrombin 20,000 unit STK-MED ONCE TP Last administered on 09/25/21 10:14; Start 09/25/21 at 10:14; Stop 09/25/21 at 10:30; Status DC Gelatin (Gelfoam Size 100) 1 each STK-MED ONCE TP Last administered on 09/25/21 10:14; Start 09/25/21 at 10:14; Stop 09/25/21 at 10:30; Status DC Acetaminophen (Tylenol) 650 mg PRN Q4HRS PRN PO TEMP OVER 100.4F OR MILD PAIN Last administered on 10/24/21 15:43; Start 09/25/21 at 12:30 Aspirin (Aspirin Chewable) 81 mg DAILY PO Last administered on 09/26/21 08:30; Start 09/26/21 at 09:00; Stop 09/28/21 at 17:19; Status DC Atorvastatin Calcium (Lipitor) 10 mg QHS PO Last administered on 10/25/21 21:16; Start 09/25/21 at 21:00 Baclofen (Lioresal) 10 mg BID PO Last administered on 10/16/21 08:26; Start 09/25/21 at 21:00; Stop 10/16/21 at 13:21; Status DC Diazepam (Valium) 5 mg TID PO Last administered on 10/22/21 12:35; Start at 14:00; Stop 10/22/21 at 19:23; Status DC Docusate Sodium (Colace) 100 mg PRN BID PRN PO HARD STOOLS Last administered on 10/15/21 10:22; Start 09/25/21 at 12:30 Fluticasone Propionate (Flonase) 2 spray DAILY NS Last administered on 10/17/21 12:58; Start 09/26/21 at 09:00 Hydroxyzine HCl (Atarax) 25 mg PRN Q6HRS PRN PO Itching (2ND Choice) Last administered on 10/25/21 09:15; Start 09/25/21 at 12:30 Lidocaine (Lidoderm) 1 patch QHS TP Last administered on 10/03/21at 23:31; Start 09/25/21 at 20:00; Stop 10/05/21 at 01:01; Status DC Linagliptin (Tradjenta) 5 mg DAILY PO Last administered on 10/25/21at 09:15; Start 09/25/21 at 13:00 Miconazole Nitrate (Monistat-Derm) 1 crispin TID TP Last administered on 10/04/21at 20:08; Start 09/25/21 at 21:00; Stop 10/05/21 at 13:23; Status DC Midodrine (Proamatine) 2.5 mg PRN 1X PRN PO hypotension Last administered on 09/27/21 08:56; Start 09/25/21 at 12:30 Oxycodone HCl (Roxicodone) 10 mg PRN Q6HRS PRN PO MODERATE-SEVERE PAIN Last administered on 10/22/21 12:35; Start 09/25/21 at 12:30; Stop 10/22/21 at 16:20; Status DC Diclofenac Sodium (Voltaren) 1 crispin PRN TID PRN TP PAIN CONTROL; Start 09/25/21 a t 13:15; Stop 09/25/21 at 18:37; Status DC Insulin Glargine (Lantus Syringe) 4 unit QHS SQ Last administered on 10/25/21 21:31; Start 09/25/21 at 21:00 Losartan Potassium (Cozaar) 25 mg DAILY08 PO Last administered on 10/25/21 09:15; Start 09/26/21 at 08:00 Polyethylene Glycol (miraLAX PACKET) 17 gm DAILY PO Last administered on 10/13/21at 08:53; Start 09/25/21 at 14:00 Pregabalin (Lyrica) 100 mg BID PO Last administered on 10/25/21at 21:17; Start 09/25/21 at 21:00 Acetaminophen (Tylenol) 650 mg PRN Q6HRS PRN PO MILD PAIN / TEMP > 100.3'F; Start 09/25/21 at 12:30; Status Cancel Al Hydroxide/Mg Hydroxide (Mylanta Plus Xs) 30 ml PRN Q3HRS PRN PO HEARTBURN / GAS; Start 09/25/21 at 12:30 Calcium Carbonate/ Glycine (Tums) 500 mg PRN Q3HRS PRN PO INDIGESTION; Start 09/25/21 at 12:30 Diphenhydramine HCl (Benadryl) 25 mg PRN Q6HRS PRN PO ITCHING (1ST CHOICE) Last administered on 10/24/21at 11:44; Start 09/25/21 at 12:30 Naloxone HCl (Narcan) 0.1 mg PRN Q2MIN PRN IV SEE COMMENTS; Start 09/25/21 at 12:30 Sodium Chloride (Normal Saline Flush) 3 ml QSHIFT PRN IV AFTER MEDS AND BLOOD DRAWS; Start 09/25/21 at 12:30 Potassium Chloride/Sodium Chloride 1,000 ml @ 75 mls/hr [id number] IV Last administered on 09/26/21at 07:00; Start 09/25/21 at 12:30; Stop 09/26/21 at 17:33; Status DC Magnesium Hydroxide (Milk Of Magnesia) 2,400 mg PRN Q12HR PRN PO CONSTIPATION; Start 09/25/21 at 12:30 Cefazolin Sodium (Ancef) 1 gm Q8H IVP Last administered on 09/26/21at 04:14; Start 09/25/21 at 18:00; Stop 09/26/21 at 10:01; Status DC Fentanyl Citrate (Fentanyl 2ml Vial) 50 mcg PRN Q2HR PRN IVP MODERATE TO SEVERE PAIN Last administered on 10/05/21at 22:46; Start 09/25/21 at 12:30 Dextrose (Dextrose 50%-Water Syringe) 12.5 gm PRN Q15MIN PRN IV SEE COMMENTS; Start 09/25/21 at 12:30; Status Cancel Dextrose (Iv Dextrose 5%) 250 ml PRN Q15MIN PRN IV SEE COMMENTS; Start 09/25/21 at 12:30; Status Cancel Gelatin (Gelfoam Size 100) 1 each STK-MED ONCE .ROUTE ; Start 09/25/21 at 06:37; Stop 09/25/21 at 14:55; Status DC Bupivacaine HCl/ Epinephrine Bitart (Sensorcain-Epi 0.5% Kit) 30 ml STK-MED ONCE .ROUTE ; Start 09/25/21 at 06:37; Stop 09/25/21 at 14:55; Status DC Ketorolac Tromethamine (Toradol Im) 60 mg STK-MED ONCE .ROUTE ; Start 09/25/21 at 06:37; Stop 09/25/21 at 14:55; Status DC Thrombin 20,000 unit STK-MED ONCE TP ; Start 09/25/21 at 06:38; Stop 09/25/21 at 14:55; Status DC Propofol (Diprivan) 200 mg STK-MED ONCE IV ; Start 09/25/21 at 05:54; Stop 09/25/21 at 14:57; Status DC Lidocaine HCl (Lidocaine Pf 2% Vial) 5 ml STK-MED ONCE .ROUTE ; Start 09/25/21 at 05:54; Stop 09/25/21 at 14:57; Status DC Ondansetron HCl (Zofran) 4 mg STK-MED ONCE .ROUTE ; Start 09/25/21 at 05:54; Stop 09/25/21 at 14:57; Status DC Phenylephrine HCl (Ramone-Synephrine Inj) 10 mg STK-MED ONCE .ROUTE ; Start 09/25/21 at 05:54; Stop 09/25/21 at 14:57; Status DC Propofol 50 ml @ As Directed STK-MED ONCE IV ; Start 09/25/21 at 05:54; Stop 09/25/21 at 14:57; Status DC Dexamethasone Sodium Phosphate (Decadron) 4 mg STK-MED ONCE .ROUTE ; Start 09/25/21 at 05:54; Stop 09/25/21 at 14:57; Status DC Fentanyl Citrate (Fentanyl 2ml Vial) 100 mcg STK-MED ONCE .ROUTE ; Start 09/25/21 at 05:54; Stop 09/25/21 at 14:57; Status DC Succinylcholine Chloride (Anectine) 200 mg STK-MED ONCE .ROUTE ; Start 09/25/21 at 05:54; Stop 09/25/21 at 14:57; Status DC Remifentanil HCl (Ultiva) 1 mg STK-MED ONCE IV ; Start 09/25/21 at 05:54; Stop 09/25/21 at 14:57; Status DC Glycopyrrolate (Robinul) 1 mg STK-MED ONCE .ROUTE ; Start 09/25/21 at 07:11; Stop 09/25/21 at 15:01; Status DC Propofol 50 ml @ As Directed STK-MED ONCE IV ; Start 09/25/21 at 08:07; Stop 09/25/21 at 15:02; Status DC Ketamine HCl (Ketamine) 50 mg STK-MED ONCE .ROUTE ; Start 09/25/21 at 08:15; Stop 09/25/21 at 15:02; Status DC Hydromorphone HCl (Dilaudid) 2 mg STK-MED ONCE .ROUTE ; Start 09/25/21 at 10:44; Stop 09/25/21 at 15:03; Status DC Fentanyl Citrate (Fentanyl 2ml Vial) 100 mcg STK-MED ONCE .ROUTE ; Start 09/25/21 at 13:26; Stop 09/25/21 at 15:04; Status DC Morphine Sulfate (Morphine Sulfate) 2 mg STK-MED ONCE .ROUTE ; Start 09/25/21 at 14:04; Stop 09/25/21 at 15:05; Status DC Hydromorphone HCl (Dilaudid) 2 mg STK-MED ONCE .ROUTE ; Start 09/25/21 at 14:54; Stop 09/25/21 at 15:06; Status DC Menthol/Methyl Salicylate ([place] Greaseless Cream) 1 crispin PRN Q30MIN PRN TP MUSCLE PAIN Last administered on 10/02/21at 21:03; Start 09/25/21 at 18:45 Mupirocin (Bactroban) 1 crispin BID NS Last administered on 10/12/21at 21:09; Start 09/26/21 at 09:00; Stop 10/13/21 at 07:56; Status DC Dexamethasone Sodium Phosphate (Decadron) 10 mg 1X ONCE IVP Last administered on 09/26/21at 07:31; Start 09/26/21 at 07:30; Stop 09/26/21 at 07:31; Status DC Cefazolin Sodium 1 gm/Sodium Chloride 1,000 ml @ 1,000 mls/hr 1X ONCE IRR Last administered on 09/26/21at 11:52; Start 09/26/21 at 10:30; Stop 09/26/21 at 11:29; Status DC Cefazolin Sodium (Ancef) 1 gm STK-MED ONCE IVP ; Start 09/26/21 at 10:05; Stop 09/26/21 at 10:06; Status DC Lidocaine HCl (Lidocaine Pf 2% Vial) 5 ml STK-MED ONCE .ROUTE ; Start 09/26/21 at 10:18; Stop 09/26/21 at 10:18; Status DC Ondansetron HCl (Zofran) 4 mg STK-MED ONCE .ROUTE ; Start 09/26/21 at 10:18; Stop 09/26/21 at 10:18; Status DC Propofol (Diprivan) 200 mg STK-MED ONCE IV ; Start 09/26/21 at 10:18; Stop 09/26/21 at 10:19; Status DC Dexamethasone Sodium Phosphate (Decadron) 4 mg STK-MED ONCE .ROUTE ; Start 09/26/21 at 10:18; Stop 09/26/21 at 10:19; Status DC Sevoflurane (Ultane) 30 ml STK-MED ONCE IH ; Start 09/26/21 at 10:18; Stop 09/26/21 at 10:19; Status DC Fentanyl Citrate (Fentanyl 2ml Vial) 100 mcg STK-MED ONCE .ROUTE ; Start 09/26/21 at 10:19; Stop 09/26/21 at 10:19; Status DC Rocuronium [place] (Zemuron) 50 mg STK-MED ONCE .ROUTE ; Start 09/26/21 at 10:19; Stop 09/26/21 at 10:19; Status DC Insulin Human Lispro (HumaLOG VIAL for OP,RR ONLY) 0-10 units PRN Q1HR PRN SQ PER PROTOCOL Last administered on 09/26/21at 15:11; Start 09/26/21 at 10:30; Stop 09/26/21 at 18:00; Status DC Sugammadex Sodium (Bridion) 200 mg 1X ONCE IVP Last administered on 09/26/21at 10:30; Start 09/26/21 at 10:30; Stop 09/26/21 at 10:31; Status DC Gelatin (Gelfoam Size 100) 1 each STK-MED ONCE .ROUTE Last administered on 09/26/21at 11:52; Start 09/26/21 at 10:30; Stop 09/26/21 at 10:30; Status DC Bupivacaine HCl/ Epinephrine Bitart (Sensorcain-Epi 0.5% Kit) 30 ml STK-MED ONCE .ROUTE ; Start 09/26/21 at 10:30; Stop 09/26/21 at 10:30; Status DC Ketorolac Tromethamine (Toradol Im) 60 mg STK-MED ONCE .ROUTE ; Start 09/26/21 at 10:30; Stop 09/26/21 at 10:30; Status DC Thrombin 20,000 unit STK-MED ONCE TP Last administered on 09/26/21at 11:52; Start 09/26/21 at 10:30; Stop 09/26/21 at 10:31; Status DC Cefazolin Sodium/ Dextrose 50 ml @ As Directed STK-MED ONCE IV ; Start 09/26/21 at 10:32; Stop 09/26/21 at 10:32; Status DC Vancomycin HCl 1 gm/Sodium Chloride 250 ml @ 250 mls/hr PREOP PRN PRN IV PRIOR TO PROCEDURE; Start 09/26/21 at 10:45; Stop 09/26/21 at 14:00; Status DC Cefazolin Sodium/ Dextrose 50 ml @ 100 mls/hr 1X ONCE IV Last administered on 09/26/21at 11:00; Start 09/26/21 at 11:00; Stop 09/26/21 at 11:29; Status DC Dexamethasone Sodium Phosphate (Decadron) 4 mg STK-MED ONCE .ROUTE ; Start 09/26/21 at 11:04; Stop 09/26/21 at 11:04; Status DC Glycopyrrolate (Robinul) 1 mg STK-MED ONCE .ROUTE ; Start 09/26/21 at 11:04; Stop 09/26/21 at 11:04; Status DC Hydromorphone HCl (Dilaudid) 2 mg STK-MED ONCE .ROUTE ; Start 09/26/21 at 11:56; Stop 09/26/21 at 11:56; Status DC Fentanyl Citrate (Fentanyl 2ml Vial) 25 mcg PRN Q5MIN PRN IVP MILD PAIN 1-3; Start 09/26/21 at 14:30; Stop 09/26/21 at 18:15; Status DC Fentanyl Citrate (Fentanyl 2ml Vial) 50 mcg PRN Q5MIN PRN IVP MODERATE PAIN 4- 6; Start 09/26/21 at 14:30; Stop 09/26/21 at 18:15; Status DC Morphine Sulfate (Morphine Sulfate) 1 mg PRN Q10MIN PRN IVP SEVERE PAIN 7-10; Start 09/26/21 at 14:30; Stop 09/26/21 at 18:15; Status DC Ringer's Solution 1,000 ml @ 30 mls/hr Q24H IV Last administered on 09/26/21at 15:18; Start 09/26/21 at 14:30; Stop 09/26/21 at 21:00; Status DC Hydromorphone HCl (Dilaudid) 0.5 mg PRN Q10MIN PRN IVP SEVERE PAIN 7-10, 2nd CHOICE; Start 09/26/21 at 14:30; Stop 09/26/21 at 18:15; Status DC Prochlorperazine Edisylate (Compazine) 5 mg PACU PRN PRN IVP NAUSEA, MRX1; Start 09/26/21 at 14:30; Stop 09/26/21 at 21:00; Status DC Fentanyl Citrate (Fentanyl 2ml Vial) 100 mcg STK-MED ONCE .ROUTE ; Start 09/26/21 at 14:23; Stop 09/26/21 at 14:25; Status DC Fentanyl Citrate (Fentanyl 2ml Vial) 25 mcg PRN Q5MIN PRN IVP MILD PAIN 1-3; Start 09/26/21 at 14:30; Stop 09/27/21 at 14:29; Status UNV Fentanyl Citrate (Fentanyl 2ml Vial) 50 mcg PRN Q5MIN PRN IVP MODERATE PAIN 4- 6; Start 09/26/21 at 14:30; Stop 09/27/21 at 14:29; Status UNV Morphine Sulfate (Morphine Sulfate) 1 mg PRN Q10MIN PRN IVP SEVERE PAIN 7-10; Start 09/26/21 at 14:30; Stop 09/27/21 at 14:29; Status UNV Ringer's Solution 1,000 ml @ 30 mls/hr Q24H IV ; Start 09/26/21 at 14:30; Stop 09/27/21 at 02:29; Status UNV Hydromorphone HCl (Dilaudid) 0.5 mg PRN Q10MIN PRN IVP SEVERE PAIN 7-10, 2nd CHOICE; Start 09/26/21 at 14:30; Stop 09/27/21 at 14:29; Status UNV Prochlorperazine Edisylate (Compazine) 5 mg PACU PRN PRN IVP NAUSEA, MRX1; Start 09/26/21 at 14:30; Stop 09/27/21 at 14:29; Status UNV Dexamethasone Sodium Phosphate (Decadron) 4 mg Q6HRS IVP Last administered on 09/28/21at 05:06; Start 09/26/21 at 18:00; Stop 09/28/21 at 06:00; Status DC Sodium Chloride 1,000 ml @ 100 mls/hr Q10H IV Last administered on 10/05/21at 06:41; Start 09/26/21 at 17:30; Stop 10/05/21 at 13:48; Status DC Cefazolin Sodium (Ancef) 1 gm Q8HRS IVP ; Start 09/27/21 at 06:00; Stop 09/27/21 at 05:47; Status DC Vancomycin HCl 1 gm/Sodium Chloride 250 ml @ 166.667 mls/hr 1X ONCE IV Last administered on 09/27/21at 06:27; Start 09/27/21 at 06:00; Stop 09/27/21 at 07:29; Status DC Gadoterate Meglumine (Clariscan) 19 ml 1X ONCE IVP Last administered on 09/29/21at 10:32; Start 09/29/21 at 08:15; Stop 09/29/21 at 08:17; Status DC Bisacodyl (Dulcolax Supp) 10 mg PRN DAILY PRN NC CONSTIPATION; Start 09/29/21 at 14:15 Lactulose (Lactulose) 20 gm PRN DAILY PRN PO CONSTIPATION, 2nd choice Last administered on 10/01/21at 08:35; Start 09/29/21 at 14:30 Ascorbic Acid (Vitamin C) 500 mg DAILY PO Last administered on 10/25/21at 09:13; Start 10/02/21 at 10:00 Levofloxacin/ Dextrose 100 ml @ 100 mls/hr Q24H IV Last administered on 10/02/21at 12:15; Start 10/02/21 at 12:00; Stop 10/03/21 at 08:57; Status DC Levofloxacin/ Dextrose 50 ml @ 50 mls/hr Q24H IV Last administered on 10/06/21at 15:19; Start 10/03/21 at 12:00; Stop 10/06/21 at 23:00; Status DC Lactobacillus Rhamnosus (Culturelle) 1 cap BID PO Last administered on 10/25/21at 21:16; Start 10/03/21 at 21:00 Lidocaine (Lidoderm) 1 patch QHS TP Last administered on 10/25/21at 21:16; Start 10/04/21 at 22:00 Levofloxacin (Levaquin) 250 mg DAILY06 PO Last administered on 10/11/21at 06:13; Start 10/07/21 at 06:00; Stop 10/11/21 at 12:00; Status DC Insulin Human Lispro (HumaLOG) 0-5 UNITS TIDWMEALS SQ Last administered on 10/18/21at 12:16; Start 10/12/21 at 08:00; Stop 10/19/21 at 15:15; Status DC Dextrose (Dextrose 50%-Water Syringe) 12.5 gm PRN Q15MIN PRN IV SEE COMMENTS; Start 10/11/21 at 19:00 Dextrose (Iv Dextrose 5%) 250 ml PRN Q15MIN PRN IV SEE COMMENTS; Start 10/11/21 at 19:00 Potassium Chloride (Klor-Con) 40 meq 1X ONCE PO Last administered on 10/15/21at 10:21; Start 10/15/21 at 10:30; Stop 10/15/21 at 10:31; Status DC Magnesium Sulfate 50 ml @ 25 mls/hr 1X ONCE IV Last administered on 10/15/21at 10:20; Start 10/15/21 at 10:30; Stop 10/15/21 at 12:29; Status DC Baclofen (Lioresal) 10 mg Q8HRS PO Last administered on 10/17/21at 06:02; Start 10/16/21 at 22:00; Stop 10/17/21 at 11:58; Status DC Baclofen (Lioresal) 10 mg Q6HRS PO Last administered on 10/25/21at 17:50; Start 10/17/21 at 12:00 Triamcinolone Acetonide (Kenalog-40) 40 mg 1X ONCE IM Last administered on 10/17/21at 12:15; Start 10/17/21 at 12:15; Stop 10/17/21 at 12:16; Status DC Bupivacaine HCl (Sensorcaine-Mpf 0.25%) 10 ml 1X ONCE IJ Last administered on 10/17/21 12:00; Start 10/17/21 at 12:00; Stop 10/17/21 at 12:01; Status DC Magnesium Sulfate 100 ml @ 25 mls/hr 1X ONCE IV Last administered on 10/18/21 14:11; Start 10/18/21 at 14:30; Stop 10/18/21 at 18:29; Status DC Vitamin B Complex (Folbic Tablet) 1 tab DAILY PO Last administered on 10/25/21at 09:14; Start 10/18/21 at 14:30 Non-Formulary Medication (L-Carnitine 500 Mg Capsule) 1 ea DAILY PO Last administered on 10/25/21 09:19; Start 10/19/21 at 13:00 Insulin Human Lispro (HumaLOG) 0-5 UNITS PRN BFRMEAL PRN SQ SEE ADMIN INSTRUCTIONS Last administered on 10/22/21 12:46; Start 10/19/21 at 15:15 Oxycodone HCl (Roxicodone) 5 mg PRN Q3HRS PRN PO MODERATE-SEVERE PAIN Last administered on 10/25/21 21:16; Start 10/22/21 at 16:30 Diazepam (Valium) 5 mg PRN TID PRN PO ANXIETY Last administered on 10/24/21 23:54; Start 10/22/21 at 19:30 Bacitracin (Bacitracin Zinc Oint Pkt) 1 pkt BID TP Last administered on 10/25/21 21:00; Start 10/25/21 at 13:00 Active Scripts Active Dok (Docusate Sodium) 100 Mg Capsule 100 Mg PO PRN BID PRN 30 Days Tylenol (Acetaminophen) 325 Mg Tablet 650 Mg PO PRN Q4HRS PRN 30 Days Valium (Diazepam) 5 Mg Tablet 5 Mg PO TID Atorvastatin Calcium 10 Mg Tablet 10 Mg PO QHS Reported Midodrine Hcl 2.5 Mg Tablet 2.5 Mg PO PRN 1X PRN Aspirin 81 Mg Tab.chew 81 Mg PO DAILY Baclofen 10 Mg Tablet 10 Mg PO BID Lyrica (Pregabalin) 100 Mg Capsule 100 Mg PO BID 30 Days Polyethylene Glycol 3350 2,500 Gm Powder 17 Gm PO DAILY 30 Days Micatin (Miconazole Nitrate) 14 Gm Cream..g. 1 [place] TP TID Tradjenta (Linagliptin) 5 Mg Tablet 5 Mg PO DAILY Lidocaine PATCH (Lidocaine) 1 Each Adh..patch 1 Each TP DAILY REMOVE AFTER 12 HOURS Levemir (Insulin Detemir) 100 Unit/1 Ml Vial 4 Unit SQ HS Hydroxyzine Hcl 25 Mg Tablet 25 Mg PO PRN Q6HRS PRN Fluticasone Propionate Nasal [place] (Fluticasone Propionate) 16 Gm [place].susp 2 [place] NS DAILY Diclofenac Sodium 100 Gm Gel..gram. 100 Gm TP PRN TID PRN Losartan Potassium 100 Mg Tablet 25 Tab PO DAILY08 Vitals/I & O Vital Sign - Last 24 Hours 10/24/21 10/25/21 10/25/21 10/25/21 23:04 01:05 01:35 03:00 Temp 98.2 98.4 98.2 98.4 Pulse 74 68 Resp 14 20 20 14 B/P (MAP) 130/60 (83) 106/55 (72) Pulse Ox 94 95 O2 Delivery Room Air Room Air Room Air Room Air 10/25/21 10/25/21 10/25/21 10/25/21 05:19 05:49 07:00 08:00 Temp 97.8 97.8 Pulse 67 Resp 20 20 16 B/P (MAP) 102/52 (69) Pulse Ox 95 O2 Delivery Room Air Room Air Room Air Room Air 10/25/21 10/25/21 10/25/21 10/25/21 09:15 10:54 15:00 19:00 Temp 98.0 97.6 98.3 98.0 97.6 98.3 Pulse 67 80 77 72 Resp 16 16 14 B/P (MAP) 102/52 121/62 (81) 122/57 (78) 121/60 (80) Pulse Ox 95 96 96 O2 Delivery Room Air Room Air Room Air 10/25/21 10/25/21 20:05 21:16 Resp 20 O2 Delivery Room Air Room Air Intake and Output 10/24/21 10/24/21 10/25/21 14:59 22:59 06:59 Intake Total 480 ml 300 ml Output Total 2100 ml Balance 480 ml -1800 ml Justifications for Admission Other Justification uncontrolled diabetes TODD RIVERA [employer]YW[employer]CH[employer]IC Oct 25, 2021 22:44
[2021-10-25 23:00] VITALS: BP 114/51
[2021-10-25] MEDS: diazePAM 5 MG TABLET PO PRN (23:01)
[2021-10-26] MEDS: BACLOFEN 10 MG TABLET. PO SCH ×4 (00:16→17:17)
[2021-10-26] MEDS: oxyCODONE IR 5 MG TABLET PO PRN ×5 (00:17→21:14)
[2021-10-26 03:00] VITALS: BP 106/56
[2021-10-26 07:00] VITALS: BP 124/63
[2021-10-26] MEDS: FLUTICASONE 50MCG/NASAL SPRAY 16GM BOTTLE. NS SCH (07:28)
[2021-10-26] MEDS: POLYETHYLENE GLYCOL 3350 17 GM PACKET. PO SCH (08:22)
[2021-10-26] MEDS: PREGABALIN 50 MG CAPSULE PO SCH ×2 (08:23→21:14)
[2021-10-26] MEDS: LOSARTAN POTASSIUM 25 MG TABLET. PO SCH (08:24)
[2021-10-26] MEDS: BACITRACIN TOPICAL OINT PACKET. TP SCH ×2 (08:24→21:14)
[2021-10-26] MEDS: ASCORBIC ACID 500 MG TABLET PO SCH (08:24)
[2021-10-26] MEDS: VITAMIN B12,B9,B6 COMPLEX 1 TABLET. PO SCH (08:24)
[2021-10-26] MEDS: LINAGLIPTIN 5 MG TABLET PO SCH (08:24)
[2021-10-26] MEDS: LACTOBACILLUS RHAMNOSUS GG 1 CAPSULE. PO SCH ×2 (08:24→21:00)
[2021-10-26] MEDS: CARNITINE 500 MG PO SCH (08:25)
--- NOTE | 2021-10-26 09:21 | PDOC ---
PROGRESS NOTES Date of Service DATE: 10/26/21 TIME: 09:19 Subjective Subjective No new complaints. 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 Plan Plan of Care Waiting for [facility] care [facility] transfer. Comment Review of Relevant I have reviewed the following items michelle (where applicable) has been applied. Labs Laboratory Tests Test 10/24/21 20:40 10/25/21 07:52 10/25/21 21:11 Glucose (Fingerstick) 174 mg/dL (70-99) 128 mg/dL (70-99) 181 mg/dL (70-99) Laboratory Tests Test 10/25/21 21:11 Glucose (Fingerstick) 181 mg/dL (70-99) Microbiology 10/01/21 Urine Culture - Final, Complete Escherichia Coli Escherichia Coli#2 Medications Current Medications Fentanyl Citrate (Fentanyl 2ml Vial) 25 mcg PRN Q5MIN PRN IVP MILD PAIN 1-3; Start 09/25/21 at 06:00; Stop 09/25/21 at 20:00; Status DC Fentanyl Citrate (Fentanyl 2ml Vial) 50 mcg PRN Q5MIN PRN IVP MODERATE PAIN 4-6 Last administered on 09/25/21at 13:48; Start 09/25/21 at 06:00; Stop 09/25/21 at 20:00; Status DC Morphine Sulfate (Morphine Sulfate) 1 mg PRN Q10MIN PRN IVP SEVERE PAIN 7-10 Last administered on 09/25/21at 14:21; Start 09/25/21 at 06:00; Stop 09/25/21 at 20:00; Status DC Ringer's Solution 1,000 ml @ 30 mls/hr Q24H IV Last administered on 09/25/21at 12:54; Start 09/25/21 at 06:00; Stop 09/25/21 at 17:59; Status DC Hydromorphone HCl (Dilaudid) 0.5 mg PRN Q10MIN PRN IVP SEVERE PAIN 7-10, 2nd CHOICE Last administered on 09/25/21at 16:53; Start 09/25/21 at 06:00; Stop 09/25/21 at 20:00; Status DC Prochlorperazine Edisylate (Compazine) 5 mg PACU PRN PRN IVP NAUSEA, MRX1; Start 09/25/21 at 06:00; Stop 09/25/21 at 20:00; Status DC Cefazolin Sodium 1 gm/Sodium Chloride 1,000 ml @ 1,000 mls/hr 1X ONCE IRR Last administered on 09/25/21at 10:14; Start 09/25/21 at 06:00; Stop 09/25/21 at 06:59; Status DC Cefazolin Sodium/ Dextrose 50 ml @ 100 mls/hr 1X PREOP PRN IV PRIOR TO PROCEDURE Last administered on 09/25/21at 09:30; Start 09/25/21 at 06:00; Stop 09/25/21 at 13:39; Status DC Insulin Human Lispro (HumaLOG VIAL for OP,RR ONLY) 0-10 units PRN Q1HR PRN SQ PER PROTOCOL Last administered on 09/25/21at 17:01; Start 09/25/21 at 07:00; Stop 09/25/21 at 18:00; Status DC Bupivacaine HCl/ Epinephrine Bitart (Sensorcain-Epi 0.5% Kit) 30 ml STK-MED ONCE INJ Last administered on 09/25/21at 10:14; Start 09/25/21 at 10:14; Stop 09/25/21 at 10:30; Status DC Ketorolac Tromethamine (Toradol Im) 60 mg STK-MED ONCE INJ Last administered on 09/25/21at 10:14; Start 09/25/21 at 10:14; Stop 09/25/21 at 10:30; Status DC Thrombin 20,000 unit STK-MED ONCE TP Last administered on 09/25/21at 10:14; Start 09/25/21 at 10:14; Stop 09/25/21 at 10:30; Status DC Gelatin (Gelfoam Size 100) 1 each STK-MED ONCE TP Last administered on 09/25/21 10:14; Start 09/25/21 at 10:14; Stop 09/25/21 at 10:30; Status DC Acetaminophen (Tylenol) 650 mg PRN Q4HRS PRN PO TEMP OVER 100.4F OR MILD PAIN Last administered on 10/24/21 15:43; Start 09/25/21 at 12:30 Aspirin (Aspirin Chewable) 81 mg DAILY PO Last administered on 09/26/21 08:30; Start 09/26/21 at 09:00; Stop 09/28/21 at 17:19; Status DC Atorvastatin Calcium (Lipitor) 10 mg QHS PO Last administered on 10/25/21 21:16; Start 09/25/21 at 21:00 Baclofen (Lioresal) 10 mg BID PO Last administered on 10/16/21 08:26; Start 09/25/21 at 21:00; Stop 10/16/21 at 13:21; Status DC Diazepam (Valium) 5 mg TID PO Last administered on 10/22/21 12:35; Start 09/25/21 at 14:00; Stop 10/22/21 at 19:23; Status DC Docusate Sodium (Colace) 100 mg PRN BID PRN PO HARD STOOLS Last administered on 10/15/21 10:22; Start 09/25/21 at 12:30 Fluticasone Propionate (Flonase) 2 spray DAILY NS Last administered on 10/17/21 12:58; Start 09/26/21 at 09:00 Hydroxyzine HCl (Atarax) 25 mg PRN Q6HRS PRN PO Itching (2ND Choice) Last administered on 10/25/21 23:01; Start 09/25/21 at 12:30 Lidocaine (Lidoderm) 1 patch QHS TP Last administered on 10/03/21 23:31; Start 09/25/21 at 20:00; Stop 10/05/21 at 01:01; Status DC Linagliptin (Tradjenta) 5 mg DAILY PO Last administered on 10/26/21 08:24; Start 09/25/21 at 13:00 Miconazole Nitrate (Monistat-Derm) 1 crispin TID TP Last administered on 2/16/22at 20:08; Start 09/25/21 at 21:00; Stop 10/05/21 at 13:23; Status DC Midodrine (Proamatine) 2.5 mg PRN 1X PRN PO hypotension Last administered on 09/27/21 08:56; Start 09/25/21 at 12:30 Oxycodone HCl (Roxicodone) 10 mg PRN Q6HRS PRN PO MODERATE-SEVERE PAIN Last administered on 10/22/21at 12:35; Start 09/25/21 at 12:30; Stop 10/22/21 at 16:20; Status DC Diclofenac Sodium (Voltaren) 1 crispin PRN TID PRN TP PAIN CONTROL; Start 09/25/21 at 13:15; Stop 09/25/21 at 18:37; Status DC Insulin Glargine (Lantus Syringe) 4 unit QHS SQ Last administered on 10/25/21at 21:31; Start 09/25/21 at 21:00 Losartan Potassium (Cozaar) 25 mg DAILY08 PO Last administered on 10/26/21 08:24; Start 09/26/21 at 08:00 Polyethylene Glycol (miraLAX PACKET) 17 gm DAILY PO Last administered on 10/13/21 08:53; Start 09/25/21 at 14:00 Pregabalin (Lyrica) 100 mg BID PO Last administered on 10/26/21 08:23; Start 09/25/21 at 21:00 Acetaminophen (Tylenol) 650 mg PRN Q6HRS PRN PO MILD PAIN / TEMP > 100.3'F; Start 09/25/21 at 12:30; Status Cancel Al Hydroxide/Mg Hydroxide (Mylanta Plus Xs) 30 ml PRN Q3HRS PRN PO HEARTBURN / GAS; Start 09/25/21 at 12:30 Calcium Carbonate/ Glycine (Tums) 500 mg PRN Q3HRS PRN PO INDIGESTION; Start 09/25/21 at 12:30 Diphenhydramine HCl (Benadryl) 25 mg PRN Q6HRS PRN PO ITCHING (1ST CHOICE) Last administered on 10/24/21at 11:44; Start 09/25/21 at 12:30 Naloxone HCl (Narcan) 0.1 mg PRN Q2MIN PRN IV SEE COMMENTS; Start 09/25/21 at 12:30 Sodium Chloride (Normal Saline Flush) 3 ml QSHIFT PRN IV AFTER MEDS AND BLOOD DRAWS; Start 09/25/21 at 12:30 Potassium Chloride/Sodium Chloride 1,000 ml @ 75 mls/hr [id number] IV Last administered on 09/26/21at 07:00; Start 09/25/21 at 12:30; Stop 09/26/21 at 17:33; Status DC Magnesium Hydroxide (Milk Of Magnesia) 2,400 mg PRN Q12HR PRN PO CONSTIPATION; Start 09/25/21 at 12:30 Cefazolin Sodium (Ancef) 1 gm Q8H IVP Last administered on 09/26/21at 04:14; Start 09/25/21 at 18:00; Stop 09/26/21 at 10:01; Status DC Fentanyl Citrate (Fentanyl 2ml Vial) 50 mcg PRN Q2HR PRN IVP MODERATE TO SEVERE PAIN Last administered on 10/05/21at 22:46; Start 09/25/21 at 12:30 Dextrose (Dextrose 50%-Water Syringe) 12.5 gm PRN Q15MIN PRN IV SEE COMMENTS; Start 09/25/21 at 12:30; Status Cancel Dextrose (Iv Dextrose 5%) 250 ml PRN Q15MIN PRN IV SEE COMMENTS; Start 09/25/21 at 12:30; Status Cancel Gelatin (Gelfoam Size 100) 1 each STK-MED ONCE .ROUTE ; Start 09/25/21 at 06:37; Stop 09/25/21 at 14:55; Status DC Bupivacaine HCl/ Epinephrine Bitart (Sensorcain-Epi 0.5% Kit) 30 ml STK-MED ONCE .ROUTE ; Start 09/25/21 at 06:37; Stop 09/25/21 at 14:55; Status DC Ketorolac Tromethamine (Toradol Im) 60 mg STK-MED ONCE .ROUTE ; Start 09/25/21 at 06:37; Stop 09/25/21 at 14:55; Status DC Thrombin 20,000 unit STK-MED ONCE TP ; Start 09/25/21 at 06:38; Stop 09/25/21 at 14:55; Status DC Propofol (Diprivan) 200 mg STK-MED ONCE IV ; Start 09/25/21 at 05:54; Stop 09/25/21 at 14:57; Status DC Lidocaine HCl (Lidocaine Pf 2% Vial) 5 ml STK-MED ONCE .ROUTE ; Start 09/25/21 at 05:54; Stop 09/25/21 at 14:57; Status DC Ondansetron HCl (Zofran) 4 mg STK-MED ONCE .ROUTE ; Start 09/25/21 at 05:54; Stop 09/25/21 at 14:57; Status DC Phenylephrine HCl (Ramone-Synephrine Inj) 10 mg STK-MED ONCE .ROUTE ; Start 09/25/21 at 05:54; Stop 09/25/21 at 14:57; Status DC Propofol 50 ml @ As Directed STK-MED ONCE IV ; Start 09/25/21 at 05:54; Stop 09/25/21 at 14:57; Status DC Dexamethasone Sodium Phosphate (Decadron) 4 mg STK-MED ONCE .ROUTE ; Start 09/25/21 at 05:54; Stop 09/25/21 at 14:57; Status DC Fentanyl Citrate (Fentanyl 2ml Vial) 100 mcg STK-MED ONCE .ROUTE ; Start 09/25/21 at 05:54; Stop 09/25/21 at 14:57; Status DC Succinylcholine Chloride (Anectine) 200 mg STK-MED ONCE .ROUTE ; Start 09/25/21 at 05:54; Stop 09/25/21 at 14:57; Status DC Remifentanil HCl (Ultiva) 1 mg STK-MED ONCE IV ; Start 09/25/21 at 05:54; Stop 09/25/21 at 14:57; Status DC Glycopyrrolate (Robinul) 1 mg STK-MED ONCE .ROUTE ; Start 09/25/21 at 07:11; Stop 09/25/21 at 15:01; Status DC Propofol 50 ml @ As Directed STK-MED ONCE IV ; Start 09/25/21 at 08:07; Stop 09/25/21 at 15:02; Status DC Ketamine HCl (Ketamine) 50 mg STK-MED ONCE .ROUTE ; Start 09/25/21 at 08:15; Stop 09/25/21 at 15:02; Status DC Hydromorphone HCl (Dilaudid) 2 mg STK-MED ONCE .ROUTE ; Start 09/25/21 at 10:44; Stop 09/25/21 at 15:03; Status DC Fentanyl Citrate (Fentanyl 2ml Vial) 100 mcg STK-MED ONCE .ROUTE ; Start 09/25/21 at 13:26; Stop 09/25/21 at 15:04; Status DC Morphine Sulfate (Morphine Sulfate) 2 mg STK-MED ONCE .ROUTE ; Start 09/25/21 at 14:04; Stop 09/25/21 at 15:05; Status DC Hydromorphone HCl (Dilaudid) 2 mg STK-MED ONCE .ROUTE ; Start 09/25/21 at 14:54; Stop 09/25/21 at 15:06; Status DC Menthol/Methyl Salicylate (Bengay Greaseless Cream) 1 crispin PRN Q30MIN PRN TP MUSCLE PAIN Last administered on 10/02/21at 21:03; Start 09/25/21 at 18:45 Mupirocin (Bactroban) 1 crispin BID NS Last administered on 10/12/21at 21:09; Start 09/26/21 at 09:00; Stop 10/13/21 at 07:56; Status DC Dexamethasone Sodium Phosphate (Decadron) 10 mg 1X ONCE IVP Last administered on 09/26/21at 07:31; Start 09/26/21 at 07:30; Stop 09/26/21 at 07:31; Status DC Cefazolin Sodium 1 gm/Sodium Chloride 1,000 ml @ 1,000 mls/hr 1X ONCE IRR Last administered on 09/26/21at 11:52; Start 09/26/21 at 10:30; Stop 09/26/21 at 11:29; Status DC Cefazolin Sodium (Ancef) 1 gm STK-MED ONCE IVP ; Start 09/26/21 at 10:05; Stop 09/26/21 at 10:06; Status DC Lidocaine HCl (Lidocaine Pf 2% Vial) 5 ml STK-MED ONCE .ROUTE ; Start 09/26/21 at 10:18; Stop 09/26/21 at 10:18; Status DC Ondansetron HCl (Zofran) 4 mg STK-MED ONCE .ROUTE ; Start 09/26/21 at 10:18; Stop 09/26/21 at 10:18; Status DC Propofol (Diprivan) 200 mg STK-MED ONCE IV ; Start 09/26/21 at 10:18; Stop 09/26/21 at 10:19; Status DC Dexamethasone Sodium Phosphate (Decadron) 4 mg STK-MED ONCE .ROUTE ; Start 09/26/21 at 10:18; Stop 09/26/21 at 10:19; Status DC Sevoflurane (Ultane) 30 ml STK-MED ONCE IH ; Start 09/26/21 at 10:18; Stop 09/26/21 at 10:19; Status DC Fentanyl Citrate (Fentanyl 2ml Vial) 100 mcg STK-MED ONCE .ROUTE ; Start 09/26/21 at 10:19; Stop 09/26/21 at 10:19; Status DC Rocuronium [place] (Zemuron) 50 mg STK-MED ONCE .ROUTE ; Start 09/26/21 at 10:19; Stop 09/26/21 at 10:19; Status DC Insulin Human Lispro (HumaLOG VIAL for OP,RR ONLY) 0-10 units PRN Q1HR PRN SQ PER PROTOCOL Last administered on 09/26/21at 15:11; Start 09/26/21 at 10:30; Stop 09/26/21 at 18:00; Status DC Sugammadex Sodium (Bridion) 200 mg 1X ONCE IVP Last administered on 09/26/21at 10:30; Start 09/26/21 at 10:30; Stop 09/26/21 at 10:31; Status DC Gelatin (Gelfoam Size 100) 1 each STK-MED ONCE .ROUTE Last administered on 09/26/21at 11:52; Start 09/26/21 at 10:30; Stop 09/26/21 at 10:30; Status DC Bupivacaine HCl/ Epinephrine Bitart (Sensorcain-Epi 0.5% Kit) 30 ml STK-MED ONCE .ROUTE ; Start 09/26/21 at 10:30; Stop 09/26/21 at 10:30; Status DC Ketorolac Tromethamine (Toradol Im) 60 mg STK-MED ONCE .ROUTE ; Start 09/26/21 at 10:30; Stop 09/26/21 at 10:30; Status DC Thrombin 20,000 unit STK-MED ONCE TP Last administered on 09/26/21at 11:52; Start 09/26/21 at 10:30; Stop 09/26/21 at 10:31; Status DC Cefazolin Sodium/ Dextrose 50 ml @ As Directed STK-MED ONCE IV ; Start 09/26/21 at 10:32; Stop 09/26/21 at 10:32; Status DC Vancomycin HCl 1 gm/Sodium Chloride 250 ml @ 250 mls/hr PREOP PRN PRN IV PRIOR TO PROCEDURE; Start 09/26/21 at 10:45; Stop 09/26/21 at 14:00; Status DC Cefazolin Sodium/ Dextrose 50 ml @ 100 mls/hr 1X ONCE IV Last administered on 09/26/21at 11:00; Start 09/26/21 at 11:00; Stop 09/26/21 at 11:29; Status DC Dexamethasone Sodium Phosphate (Decadron) 4 mg STK-MED ONCE .ROUTE ; Start 09/26/21 at 11:04; Stop 09/26/21 at 11:04; Status DC Glycopyrrolate (Robinul) 1 mg STK-MED ONCE .ROUTE ; Start 09/26/21 at 11:04; Stop 09/26/21 at 11:04; Status DC Hydromorphone HCl (Dilaudid) 2 mg STK-MED ONCE .ROUTE ; Start 09/26/21 at 11:56; Stop 09/26/21 at 11:56; Status DC Fentanyl Citrate (Fentanyl 2ml Vial) 25 mcg PRN Q5MIN PRN IVP MILD PAIN 1-3; Start 09/26/21 at 14:30; Stop 09/26/21 at 18:15; Status DC Fentanyl Citrate (Fentanyl 2ml Vial) 50 mcg PRN Q5MIN PRN IVP MODERATE PAIN 4- 6; Start 09/26/21 at 14:30; Stop 09/26/21 at 18:15; Status DC Morphine Sulfate (Morphine Sulfate) 1 mg PRN Q10MIN PRN IVP SEVERE PAIN 7-10; Start 09/26/21 at 14:30; Stop 09/26/21 at 18:15; Status DC Ringer's Solution 1,000 ml @ 30 mls/hr Q24H IV Last administered on 09/26/21at 15:18; Start 09/26/21 at 14:30; Stop 09/26/21 at 21:00; Status DC Hydromorphone HCl (Dilaudid) 0.5 mg PRN Q10MIN PRN IVP SEVERE PAIN 7-10, 2nd CHOICE; Start 09/26/21 at 14:30; Stop 09/26/21 at 18:15; Status DC Prochlorperazine Edisylate (Compazine) 5 mg PACU PRN PRN IVP NAUSEA, MRX1; Start 09/26/21 at 14:30; Stop 09/26/21 at 21:00; Status DC Fentanyl Citrate (Fentanyl 2ml Vial) 100 mcg STK-MED ONCE .ROUTE ; Start 09/26/21 at 14:23; Stop 09/26/21 at 14:25; Status DC Fentanyl Citrate (Fentanyl 2ml Vial) 25 mcg PRN Q5MIN PRN IVP MILD PAIN 1-3; Start 09/26/21 at 14:30; Stop 09/27/21 at 14:29; Status UNV Fentanyl Citrate (Fentanyl 2ml Vial) 50 mcg PRN Q5MIN PRN IVP MODERATE PAIN 4- 6; Start 09/26/21 at 14:30; Stop 09/27/21 at 14:29; Status UNV Morphine Sulfate (Morphine Sulfate) 1 mg PRN Q10MIN PRN IVP SEVERE PAIN 7-10; Start 09/26/21 at 14:30; Stop 09/27/21 at 14:29; Status UNV Ringer's Solution 1,000 ml @ 30 mls/hr Q24H IV ; Start 09/26/21 at 14:30; Stop 09/27/21 at 02:29; Status UNV Hydromorphone HCl (Dilaudid) 0.5 mg PRN Q10MIN PRN IVP SEVERE PAIN 7-10, 2nd CHOICE; Start 09/26/21 at 14:30; Stop 09/27/21 at 14:29; Status UNV Prochlorperazine Edisylate (Compazine) 5 mg PACU PRN PRN IVP NAUSEA, MRX1; Start 09/26/21 at 14:30; Stop 09/27/21 at 14:29; Status UNV Dexamethasone Sodium Phosphate (Decadron) 4 mg Q6HRS IVP Last administered on 09/28/21at 05:06; Start 09/26/21 at 18:00; Stop 09/28/21 at 06:00; Status DC Sodium Chloride 1,000 ml @ 100 mls/hr Q10H IV Last administered on 10/05/21at 06:41; Start 09/26/21 at 17:30; Stop 10/05/21 at 13:48; Status DC Cefazolin Sodium (Ancef) 1 gm Q8HRS IVP ; Start 09/27/21 at 06:00; Stop 09/27/21 at 05:47; Status DC Vancomycin HCl 1 gm/Sodium Chloride 250 ml @ 166.667 mls/hr 1X ONCE IV Last administered on 09/27/21at 06:27; Start 09/27/21 at 06:00; Stop 09/27/21 at 07:29; Status DC Gadoterate Meglumine (Clariscan) 19 ml 1X ONCE IVP Last administered on 09/29/21at 10:32; Start 09/29/21 at 08:15; Stop 09/29/21 at 08:17; Status DC Bisacodyl (Dulcolax Supp) 10 mg PRN DAILY PRN [place] CONSTIPATION; Start 09/29/21 at 14:15 Lactulose (Lactulose) 20 gm PRN DAILY PRN PO CONSTIPATION, 2nd choice Last administered on 10/01/21at 08:35; Start 09/29/21 at 14:30 Ascorbic Acid (Vitamin C) 500 mg DAILY PO Last administered on 10/26/21at 08:24; Start 10/02/21 at 10:00 Levofloxacin/ Dextrose 100 ml @ 100 mls/hr Q24H IV Last administered on 10/02/21at 12:15; Start 10/02/21 at 12:00; Stop 10/03/21 at 08:57; Status DC Levofloxacin/ Dextrose 50 ml @ 50 mls/hr Q24H IV Last administered on 10/06/21at 15:19; Start 10/03/21 at 12:00; Stop 10/06/21 at 23:00; Status DC Lactobacillus Rhamnosus (Culturelle) 1 cap BID PO Last administered on 10/26/21at 08:24; Start 10/03/21 at 21:00 Lidocaine (Lidoderm) 1 patch QHS TP Last administered on 10/25/21at 21:16; Start 10/04/21 at 22:00 Levofloxacin (Levaquin) 250 mg DAILY06 PO Last administered on 10/11/21at 06:13; Start 10/07/21 at 06:00; Stop 10/11/21 at 12:00; Status DC Insulin Human Lispro (HumaLOG) 0-5 UNITS TIDWMEALS SQ Last administered on at 12:16; Start 10/12/21 at 08:00; Stop 10/19/21 at 15:15; Status DC Dextrose (Dextrose 50%-Water Syringe) 12.5 gm PRN Q15MIN PRN IV SEE COMMENTS; Start 10/11/21 at 19:00 Dextrose (Iv Dextrose 5%) 250 ml PRN Q15MIN PRN IV SEE COMMENTS; Start 10/11/21 at 19:00 Potassium Chloride (Klor-Con) 40 meq 1X ONCE PO Last administered on 10/15/21at 10:21; Start 10/15/21 at 10:30; Stop 10/15/21 at 10:31; Status DC Magnesium Sulfate 50 ml @ 25 mls/hr 1X ONCE IV Last administered on 10/15/21at 10:20; Start 10/15/21 at 10:30; Stop 10/15/21 at 12:29; Status DC Baclofen (Lioresal) 10 mg Q8HRS PO Last administered on 10/17/21at 06:02; Start 10/16/21 at 22:00; Stop 10/17/21 at 11:58; Status DC Baclofen (Lioresal) 10 mg Q6HRS PO Last administered on 10/26/21at 06:08; Start 10/17/21 at 12:00 Triamcinolone Acetonide (Kenalog-40) 40 mg 1X ONCE IM Last administered on 10/17/21at 12:15; Start 10/17/21 at 12:15; Stop 10/17/21 at 12:16; Status DC Bupivacaine HCl (Sensorcaine-Mpf 0.25%) 10 ml 1X ONCE IJ Last administered on 10/17/21at 12:00; Start 10/17/21 at 12:00; Stop 10/17/21 at 12:01; Status DC Magnesium Sulfate 100 ml @ 25 mls/hr 1X ONCE IV Last administered on 10/18/21at 14:11; Start 10/18/21 at 14:30; Stop 10/18/21 at 18:29; Status DC Vitamin B Complex (Folbic Tablet) 1 tab DAILY PO Last administered on 10/26/21 08:24; Start 10/18/21 at 14:30 Non-Formulary Medication (L-Carnitine 500 Mg Capsule) 1 ea DAILY PO Last administered on 10/26/21at 08:25; Start 10/19/21 at 13:00 Insulin Human Lispro (HumaLOG) 0-5 UNITS PRN BFRMEAL PRN SQ SEE ADMIN INSTRUCTIONS Last administered on 10/22/21at 12:46; Start 10/19/21 at 15:15 Oxycodone HCl (Roxicodone) 5 mg PRN Q3HRS PRN PO MODERATE-SEVERE PAIN Last administered on 10/26/21at 06:08; Start 10/22/21 at 16:30 Diazepam (Valium) 5 mg PRN TID PRN PO ANXIETY Last administered on 10/25/21at 23:01; Start 10/22/21 at 19:30 Bacitracin (Bacitracin Zinc Oint Pkt) 1 pkt BID TP Last administered on 10/26/21at 08:24; Start 10/25/21 at 13:00 Active Scripts Active Dok (Docusate Sodium) 100 Mg Capsule 100 Mg PO PRN BID PRN 30 Days Tylenol (Acetaminophen) 325 Mg Tablet 650 Mg PO PRN Q4HRS PRN 30 Days Valium (Diazepam) 5 Mg Tablet 5 Mg PO TID Atorvastatin Calcium 10 Mg Tablet 10 Mg PO QHS Reported Midodrine Hcl 2.5 Mg Tablet 2.5 Mg PO PRN 1X PRN Aspirin 81 Mg Tab.chew 81 Mg PO DAILY Baclofen 10 Mg Tablet 10 Mg PO BID Lyrica (Pregabalin) 100 Mg Capsule 100 Mg PO BID 30 Days Polyethylene Glycol 3350 2,500 Gm Powder 17 Gm PO DAILY 30 Days Micatin (Miconazole Nitrate) 14 Gm Cream..g. 1 [place] TP TID Tradjenta (Linagliptin) 5 Mg Tablet 5 Mg PO DAILY Lidocaine PATCH (Lidocaine) 1 Each Adh..patch 1 Each TP DAILY REMOVE AFTER 12 HOURS Levemir (Insulin Detemir) 100 Unit/1 Ml Vial 4 Unit SQ HS Hydroxyzine Hcl 25 Mg Tablet 25 Mg PO PRN Q6HRS PRN Fluticasone Propionate Nasal [place] (Fluticasone Propionate) 16 Gm [place].susp 2 [place] NS DAILY Diclofenac Sodium 100 Gm Gel..gram. 100 Gm TP PRN TID PRN Losartan Potassium 100 Mg Tablet 25 Tab PO DAILY08 Vitals/I & O Vital Sign - Last 24 Hours 10/25/21 10/25/21 10/25/21 10/25/21 10:54 15:00 19:00 20:05 Temp 98.0 97.6 98.3 98.0 97.6 98.3 Pulse 80 77 72 Resp 16 16 14 B/P (MAP) 121/62 (81) 122/57 (78) 121/60 (80) Pulse Ox 95 96 96 O2 Delivery Room Air Room Air Room Air Room Air 10/25/21 10/25/21 10/25/21 10/26/21 21:16 21:46 23:00 00:17 Temp 99.7 99.7 Pulse 71 Resp 20 20 14 20 B/P (MAP) 114/51 (72) Pulse Ox 95 O2 Delivery Room Air Room Air Room Air Room Air 10/26/21 10/26/21 10/26/21 10/26/21 00:47 03:00 06:08 07:00 Temp 97.6 97.6 Pulse 61 60 Resp 20 14 20 18 B/P (MAP) 106/56 (73) 124/63 (83) Pulse Ox 97 96 O2 Delivery Room Air Room Air Room Air 10/26/21 10/26/21 07:37 08:24 Pulse 60 B/P (MAP) 124/63 O2 Delivery Room Air Intake and Output 10/25/21 10/25/21 10/26/21 15:00 23:00 07:00 Output Total 2350 ml 1000 ml Balance -2350 ml -1000 ml Justifications for Admission Other Justification uncontrolled diabetes TERRY JURADO MD Oct 26, 2021 09:21
[2021-10-26] MEDS: diphenhydrAMINE HCL 25 MG CAPSULE PO PRN ×2 (10:20→23:05)
[2021-10-26 11:00] VITALS: BP 110/56
--- NOTE | 2021-10-26 12:12 | PDOC ---
PROGRESS NOTES Date of Service DATE: 10/26/21 TIME: 12:11 Assessment Fall in July due to alcohol intoxication, he underwent cervical decompression, then returned a month ago for further cervical surgery, developed epidural hematoma, now has a C6 motor spinal level, no sensory spinal level. Spasticity due to above, better with higher dose of baclofen along with pregabalin and Valium. He is also on narcotics analgesics. Diabetic neuropathy History of syncope History of transient ischemic attack symptoms related to hypertension Plan Awaiting care home unit transfer Agree with current management by Dr. Pineda, spasms are better, still has them occasionally and they are painful for him I will follow along at intervals. Subjective No complaints Objective Vital Signs Date Time Temp Pulse Resp B/P (MAP) Pulse Ox O2 Delivery O2 Flow Rate FiO2 10/26/21 11:00 97.8 72 18 110/56 (74) 96 97.8 10/26/21 07:37 Room Air Intake and Output 10/26/21 07:00 Output Total 3350 ml Balance -3350 ml Output Urine Total 3350 ml # Bowel Movements 2 PHYSICAL EXAM Alert. Oriented to time, place and person. PERRL. EOMI. CN: no focal findings. Muscle tone: normal. Muscle strength: 0/5 legs, 3/5 distal arms, 4/5 left shoulder, 5/5 right shoulder DTR: 1+ Plantar reflex: Silent Gait: not examined Sensory exam: Stocking loss. No cerebellar signs elicited. Review of Relevant I have reviewed the following items michelle (where applicable) has been applied. Labs Laboratory Tests Test 10/24/21 20:40 10/25/21 07:52 10/25/21 21:11 Glucose (Fingerstick) 174 mg/dL (70-99) 128 mg/dL (70-99) 181 mg/dL (70-99) Laboratory Tests Test 10/25/21 21:11 Glucose (Fingerstick) 181 mg/dL (70-99) Microbiology 10/01/21 Urine Culture - Final, Complete Escherichia Coli Escherichia Coli#2 Medications Current Medications Fentanyl Citrate (Fentanyl 2ml Vial) 25 mcg PRN Q5MIN PRN IVP MILD PAIN 1-3; Start 09/25/21 at 06:00; Stop 09/25/21 at 20:00; Status DC Fentanyl Citrate (Fentanyl 2ml Vial) 50 mcg PRN Q5MIN PRN IVP MODERATE PAIN 4-6 Last administered on 09/25/21at 13:48; Start 09/25/21 at 06:00; Stop 09/25/21 at 20:00; Status DC Morphine Sulfate (Morphine Sulfate) 1 mg PRN Q10MIN PRN IVP SEVERE PAIN 7-10 Last administered on 09/25/21at 14:21; Start 09/25/21 at 06:00; Stop 09/25/21 at 20:00; Status DC Ringer's Solution 1,000 ml @ 30 mls/hr Q24H IV Last administered on 09/25/21at 12:54; Start 09/25/21 at 06:00; Stop 09/25/21 at 17:59; Status DC Hydromorphone HCl (Dilaudid) 0.5 mg PRN Q10MIN PRN IVP SEVERE PAIN 7-10, 2nd CHOICE Last administered on 09/25/21at 16:53; Start 09/25/21 at 06:00; Stop 09/25/21 at 20:00; Status DC Prochlorperazine Edisylate (Compazine) 5 mg PACU PRN PRN IVP NAUSEA, MRX1; Start 09/25/21 at 06:00; Stop 09/25/21 at 20:00; Status DC Cefazolin Sodium 1 gm/Sodium Chloride 1,000 ml @ 1,000 mls/hr 1X ONCE IRR Last administered on 09/25/21at 10:14; Start 09/25/21 at 06:00; Stop 09/25/21 at 06:59; Status DC Cefazolin Sodium/ Dextrose 50 ml @ 100 mls/hr 1X PREOP PRN IV PRIOR TO PROCEDURE Last administered on 09/25/21at 09:30; Start 09/25/21 at 06:00; Stop 09/25/21 at 13:39; Status DC Insulin Human Lispro (HumaLOG VIAL for OP,RR ONLY) 0-10 units PRN Q1HR PRN SQ PER PROTOCOL Last administered on 09/25/21at 17:01; Start 09/25/21 at 07:00; Stop 09/25/21 at 18:00; Status DC Bupivacaine HCl/ Epinephrine Bitart (Sensorcain-Epi 0.5% Kit) 30 ml STK-MED ONCE INJ Last administered on 09/25/21at 10:14; Start 09/25/21 at 10:14; Stop 09/25/21 at 10:30; Status DC Ketorolac Tromethamine (Toradol Im) 60 mg STK-MED ONCE INJ Last administered on 09/25/21 10:14; Start 09/25/21 at 10:14; Stop 09/25/21 at 10:30; Status DC Thrombin 20,000 unit STK-MED ONCE TP Last administered on 09/25/21at 10:14; Start 09/25/21 at 10:14; Stop 09/25/21 at 10:30; Status DC Gelatin (Gelfoam Size 100) 1 each STK-MED ONCE TP Last administered on 09/25/21at 10:14; Start 09/25/21 at 10:14; Stop 09/25/21 at 10:30; Status DC Acetaminophen (Tylenol) 650 mg PRN Q4HRS PRN PO TEMP OVER 100.4F OR MILD PAIN Last administered on 10/24/21at 15:43; Start 09/25/21 at 12:30 Aspirin (Aspirin Chewable) 81 mg DAILY PO Last administered on 09/26/21at 08:30; Start 09/26/21 at 09:00; Stop 09/28/21 at 17:19; Status DC Atorvastatin Calcium (Lipitor) 10 mg QHS PO Last administered on 10/25/21at 21:16; Start 09/25/21 at 21:00 Baclofen (Lioresal) 10 mg BID PO Last administered on 10/16/21at 08:26; Start 09/25/21 at 21:00; Stop 10/16/21 at 13:21; Status DC Diazepam (Valium) 5 mg TID PO Last administered on 10/22/21at 12:35; Start 09/25/21 at 14:00; Stop 10/22/21 at 19:23; Status DC Docusate Sodium (Colace) 100 mg PRN BID PRN PO HARD STOOLS Last administered on 10/15/21at 10:22; Start 09/25/21 at 12:30 Fluticasone Propionate (Flonase) 2 spray DAILY NS Last administered on 10/17/21at 12:58; Start 09/26/21 at 09:00 Hydroxyzine HCl (Atarax) 25 mg PRN Q6HRS PRN PO Itching (2ND Choice) Last administered on 10/25/21 23:01; Start 09/25/21 at 12:30 Lidocaine (Lidoderm) 1 patch QHS TP Last administered on 10/03/21 23:31; Start 09/25/21 at 20:00; Stop 10/05/21 at 01:01; Status DC Linagliptin (Tradjenta) 5 mg DAILY PO Last administered on 10/26/21 08:24; Start 09/25/21 at 13:00 Miconazole Nitrate (Monistat-Derm) 1 crispin TID TP Last administered on 10/04/21 20:08; Start 09/25/21 at 21:00; Stop 10/05/21 at 13:23; Status DC Midodrine (Proamatine) 2.5 mg PRN 1X PRN PO hypotension Last administered on 09/27/21 08:56; Start 09/25/21 at 12:30 Oxycodone HCl (Roxicodone) 10 mg PRN Q6HRS PRN PO MODERATE-SEVERE PAIN Last administered on 10/22/21 12:35; Start 09/25/21 at 12:30; Stop 10/22/21 at 16:20; Status DC Diclofenac Sodium (Voltaren) 1 crispin PRN TID PRN TP PAIN CONTROL; Start 09/25/21 at 13:15; Stop 09/25/21 at 18:37; Status DC Insulin Glargine (Lantus Syringe) 4 unit QHS SQ Last administered on 10/25/21 21:31; Start 09/25/21 at 21:00 Losartan Potassium (Cozaar) 25 mg DAILY08 PO Last administered on 10/26/21 08:24; Start 09/26/21 at 08:00 Polyethylene Glycol (miraLAX PACKET) 17 gm DAILY PO Last administered on 10/13/21 08:53; Start 09/25/21 at 14:00 Pregabalin (Lyrica) 100 mg BID PO Last administered on 10/26/21 08:23; Start 09/25/21 at 21:00 Acetaminophen (Tylenol) 650 mg PRN Q6HRS PRN PO MILD PAIN / TEMP > 100.3'F; Start 09/25/21 at 12:30; Status Cancel Al Hydroxide/Mg Hydroxide (Mylanta Plus Xs) 30 ml PRN Q3HRS PRN PO HEARTBURN / GAS; Start 09/25/21 at 12:30 Calcium Carbonate/ Glycine (Tums) 500 mg PRN Q3HRS PRN PO INDIGESTION; Start 09/25/21 at 12:30 Diphenhydramine HCl (Benadryl) 25 mg PRN Q6HRS PRN PO ITCHING (1ST CHOICE) Last administered on 10/26/21at 10:20; Start 09/25/21 at 12:30 Naloxone HCl (Narcan) 0.1 mg PRN Q2MIN PRN IV SEE COMMENTS; Start 09/25/21 at 12:30 Sodium Chloride (Normal Saline Flush) 3 ml QSHIFT PRN IV AFTER MEDS AND BLOOD DRAWS; Start 09/25/21 at 12:30 Potassium Chloride/Sodium Chloride 1,000 ml @ 75 mls/hr [id number] IV Last administered on 09/26/21at 07:00; Start 09/25/21 at 12:30; Stop 09/26/21 at 17:33; Status DC Magnesium Hydroxide (Milk Of Magnesia) 2,400 mg PRN Q12HR PRN PO CONSTIPATION; Start 09/25/21 at 12:30 Cefazolin Sodium (Ancef) 1 gm Q8H IVP Last administered on 09/26/21at 04:14; Start 09/25/21 at 18:00; Stop 09/26/21 at 10:01; Status DC Fentanyl Citrate (Fentanyl 2ml Vial) 50 mcg PRN Q2HR PRN IVP MODERATE TO SEVERE PAIN Last administered on 10/05/21at 22:46; Start 09/25/21 at 12:30 Dextrose (Dextrose 50%-Water Syringe) 12.5 gm PRN Q15MIN PRN IV SEE COMMENTS; Start 09/25/21 at 12:30; Status Cancel Dextrose (Iv Dextrose 5%) 250 ml PRN Q15MIN PRN IV SEE COMMENTS; Start 09/25/21 at 12:30; Status Cancel Gelatin (Gelfoam Size 100) 1 each STK-MED ONCE .ROUTE ; Start 09/25/21 at 06:37; Stop 09/25/21 at 14:55; Status DC Bupivacaine HCl/ Epinephrine Bitart (Sensorcain-Epi 0.5% Kit) 30 ml STK-MED ONCE .ROUTE ; Start 09/25/21 at 06:37; Stop 09/25/21 at 14:55; Status DC Ketorolac Tromethamine (Toradol Im) 60 mg STK-MED ONCE .ROUTE ; Start 09/25/21 at 06:37; Stop 09/25/21 at 14:55; Status DC Thrombin 20,000 unit STK-MED ONCE TP ; Start 09/25/21 at 06:38; Stop 09/25/21 at 14:55; Status DC Propofol (Diprivan) 200 mg STK-MED ONCE IV ; Start 09/25/21 at 05:54; Stop 09/25/21 at 14:57; Status DC Lidocaine HCl (Lidocaine Pf 2% Vial) 5 ml STK-MED ONCE .ROUTE ; Start 09/25/21 at 05:54; Stop 09/25/21 at 14:57; Status DC Ondansetron HCl (Zofran) 4 mg STK-MED ONCE .ROUTE ; Start 09/25/21 at 05:54; Stop 09/25/21 at 14:57; Status DC Phenylephrine HCl (Ramone-Synephrine Inj) 10 mg STK-MED ONCE .ROUTE ; Start 09/25/21 at 05:54; Stop 09/25/21 at 14:57; Status DC Propofol 50 ml @ As Directed STK-MED ONCE IV ; Start 09/25/21 at 05:54; Stop 09/25/21 at 14:57; Status DC Dexamethasone Sodium Phosphate (Decadron) 4 mg STK-MED ONCE .ROUTE ; Start 09/25/21 at 05:54; Stop 09/25/21 at 14:57; Status DC Fentanyl Citrate (Fentanyl 2ml Vial) 100 mcg STK-MED ONCE .ROUTE ; Start 09/25/21 at 05:54; Stop 09/25/21 at 14:57; Status DC Succinylcholine Chloride (Anectine) 200 mg STK-MED ONCE .ROUTE ; Start 09/25/21 at 05:54; Stop 09/25/21 at 14:57; Status DC Remifentanil HCl (Ultiva) 1 mg STK-MED ONCE IV ; Start 09/25/21 at 05:54; Stop 09/25/21 at 14:57; Status DC Glycopyrrolate (Robinul) 1 mg STK-MED ONCE .ROUTE ; Start 09/25/21 at 07:11; Stop 09/25/21 at 15:01; Status DC Propofol 50 ml @ As Directed STK-MED ONCE IV ; Start 09/25/21 at 08:07; Stop 09/25/21 at 15:02; Status DC Ketamine HCl (Ketamine) 50 mg STK-MED ONCE .ROUTE ; Start 09/25/21 at 08:15; Stop 09/25/21 at 15:02; Status DC Hydromorphone HCl (Dilaudid) 2 mg STK-MED ONCE .ROUTE ; Start 09/25/21 at 10:44; Stop 09/25/21 at 15:03; Status DC Fentanyl Citrate (Fentanyl 2ml Vial) 100 mcg STK-MED ONCE .ROUTE ; Start 09/25/21 at 13:26; Stop 09/25/21 at 15:04; Status DC Morphine Sulfate (Morphine Sulfate) 2 mg STK-MED ONCE .ROUTE ; Start 09/25/21 at 14:04; Stop 09/25/21 at 15:05; Status DC Hydromorphone HCl (Dilaudid) 2 mg STK-MED ONCE .ROUTE ; Start 09/25/21 at 14:54; Stop 09/25/21 at 15:06; Status DC Menthol/Methyl Salicylate (Bengay Greaseless Cream) 1 crispin PRN Q30MIN PRN TP MUSCLE PAIN Last administered on 10/02/21at 21:03; Start 09/25/21 at 18:45 Mupirocin (Bactroban) 1 crispin BID NS Last administered on 10/12/21at 21:09; Start 09/26/21 at 09:00; Stop 10/13/21 at 07:56; Status DC Dexamethasone Sodium Phosphate (Decadron) 10 mg 1X ONCE IVP Last administered on 09/26/21at 07:31; Start 09/26/21 at 07:30; Stop 09/26/21 at 07:31; Status DC Cefazolin Sodium 1 gm/Sodium Chloride 1,000 ml @ 1,000 mls/hr 1X ONCE IRR Last administered on 09/26/21at 11:52; Start 09/26/21 at 10:30; Stop 09/26/21 at 11:29; Status DC Cefazolin Sodium (Ancef) 1 gm STK-MED ONCE IVP ; Start 09/26/21 at 10:05; Stop 09/26/21 at 10:06; Status DC Lidocaine HCl (Lidocaine Pf 2% Vial) 5 ml STK-MED ONCE .ROUTE ; Start 09/26/21 at 10:18; Stop 09/26/21 at 10:18; Status DC Ondansetron HCl (Zofran) 4 mg STK-MED ONCE .ROUTE ; Start 09/26/21 at 10:18; Stop 09/26/21 at 10:18; Status DC Propofol (Diprivan) 200 mg STK-MED ONCE IV ; Start 09/26/21 at 10:18; Stop 09/26/21 at 10:19; Status DC Dexamethasone Sodium Phosphate (Decadron) 4 mg STK-MED ONCE .ROUTE ; Start 09/26/21 at 10:18; Stop 09/26/21 at 10:19; Status DC Sevoflurane (Ultane) 30 ml STK-MED ONCE IH ; Start 09/26/21 at 10:18; Stop 09/26/21 at 10:19; Status DC Fentanyl Citrate (Fentanyl 2ml Vial) 100 mcg STK-MED ONCE .ROUTE ; Start 09/26/21 at 10:19; Stop 09/26/21 at 10:19; Status DC Rocuronium [place] (Zemuron) 50 mg STK-MED ONCE .ROUTE ; Start 09/26/21 at 10:19; Stop 09/26/21 at 10:19; Status DC Insulin Human Lispro (HumaLOG VIAL for OP,RR ONLY) 0-10 units PRN Q1HR PRN SQ PER PROTOCOL Last administered on 09/26/21at 15:11; Start 09/26/21 at 10:30; Stop 09/26/21 at 18:00; Status DC Sugammadex Sodium (Bridion) 200 mg 1X ONCE IVP Last administered on 09/26/21at 10:30; Start 09/26/21 at 10:30; Stop 09/26/21 at 10:31; Status DC Gelatin (Gelfoam Size 100) 1 each STK-MED ONCE .ROUTE Last administered on 09/26/21at 11:52; Start 09/26/21 at 10:30; Stop 09/26/21 at 10:30; Status DC Bupivacaine HCl/ Epinephrine Bitart (Sensorcain-Epi 0.5% Kit) 30 ml STK-MED ONCE .ROUTE ; Start 09/26/21 at 10:30; Stop 09/26/21 at 10:30; Status DC Ketorolac Tromethamine (Toradol Im) 60 mg STK-MED ONCE .ROUTE ; Start 09/26/21 at 10:30; Stop 09/26/21 at 10:30; Status DC Thrombin 20,000 unit STK-MED ONCE TP Last administered on 09/26/21at 11:52; Start 09/26/21 at 10:30; Stop 09/26/21 at 10:31; Status DC Cefazolin Sodium/ Dextrose 50 ml @ As Directed STK-MED ONCE IV ; Start 09/26/21 at 10:32; Stop 09/26/21 at 10:32; Status DC Vancomycin HCl 1 gm/Sodium Chloride 250 ml @ 250 mls/hr PREOP PRN PRN IV PRIOR TO PROCEDURE; Start 09/26/21 at 10:45; Stop 09/26/21 at 14:00; Status DC Cefazolin Sodium/ Dextrose 50 ml @ 100 mls/hr 1X ONCE IV Last administered on 09/26/21at 11:00; Start 09/26/21 at 11:00; Stop 09/26/21 at 11:29; Status DC Dexamethasone Sodium Phosphate (Decadron) 4 mg STK-MED ONCE .ROUTE ; Start 09/26/21 at 11:04; Stop 09/26/21 at 11:04; Status DC Glycopyrrolate (Robinul) 1 mg STK-MED ONCE .ROUTE ; Start 09/26/21 at 11:04; Stop 09/26/21 at 11:04; Status DC Hydromorphone HCl (Dilaudid) 2 mg STK-MED ONCE .ROUTE ; Start 09/26/21 at 11:56; Stop 09/26/21 at 11:56; Status DC Fentanyl Citrate (Fentanyl 2ml Vial) 25 mcg PRN Q5MIN PRN IVP MILD PAIN 1-3; Start 09/26/21 at 14:30; Stop 09/26/21 at 18:15; Status DC Fentanyl Citrate (Fentanyl 2ml Vial) 50 mcg PRN Q5MIN PRN IVP MODERATE PAIN 4- 6; Start 09/26/21 at 14:30; Stop 09/26/21 at 18:15; Status DC Morphine Sulfate (Morphine Sulfate) 1 mg PRN Q10MIN PRN IVP SEVERE PAIN 7-10; Start 09/26/21 at 14:30; Stop 09/26/21 at 18:15; Status DC Ringer's Solution 1,000 ml @ 30 mls/hr Q24H IV Last administered on 09/26/21at 15:18; Start 09/26/21 at 14:30; Stop 09/26/21 at 21:00; Status DC Hydromorphone HCl (Dilaudid) 0.5 mg PRN Q10MIN PRN IVP SEVERE PAIN 7-10, 2nd CHOICE; Start 09/26/21 at 14:30; Stop 09/26/21 at 18:15; Status DC Prochlorperazine Edisylate (Compazine) 5 mg PACU PRN PRN IVP NAUSEA, MRX1; Start 09/26/21 at 14:30; Stop 09/26/21 at 21:00; Status DC Fentanyl Citrate (Fentanyl 2ml Vial) 100 mcg STK-MED ONCE .ROUTE ; Start 09/26/21 at 14:23; Stop 09/26/21 at 14:25; Status DC Fentanyl Citrate (Fentanyl 2ml Vial) 25 mcg PRN Q5MIN PRN IVP MILD PAIN 1-3; Start 09/26/21 at 14:30; Stop 09/27/21 at 14:29; Status UNV Fentanyl Citrate (Fentanyl 2ml Vial) 50 mcg PRN Q5MIN PRN IVP MODERATE PAIN 4- 6; Start 09/26/21 at 14:30; Stop 09/27/21 at 14:29; Status UNV Morphine Sulfate (Morphine Sulfate) 1 mg PRN Q10MIN PRN IVP SEVERE PAIN 7-10; Start 09/26/21 at 14:30; Stop 09/27/21 at 14:29; Status UNV Ringer's Solution 1,000 ml @ 30 mls/hr Q24H IV ; Start 09/26/21 at 14:30; Stop 09/27/21 at 02:29; Status UNV Hydromorphone HCl (Dilaudid) 0.5 mg PRN Q10MIN PRN IVP SEVERE PAIN 7-10, 2nd CHOICE; Start 09/26/21 at 14:30; Stop 09/27/21 at 14:29; Status UNV Prochlorperazine Edisylate (Compazine) 5 mg PACU PRN PRN IVP NAUSEA, MRX1; Start 09/26/21 at 14:30; Stop 09/27/21 at 14:29; Status UNV Dexamethasone Sodium Phosphate (Decadron) 4 mg Q6HRS IVP Last administered on 09/28/21at 05:06; Start 09/26/21 at 18:00; Stop 09/28/21 at 06:00; Status DC Sodium Chloride 1,000 ml @ 100 mls/hr Q10H IV Last administered on 10/05/21at 06:41; Start 09/26/21 at 17:30; Stop 10/05/21 at 13:48; Status DC Cefazolin Sodium (Ancef) 1 gm Q8HRS IVP ; Start 09/27/21 at 06:00; Stop 09/27/21 at 05:47; Status DC Vancomycin HCl 1 gm/Sodium Chloride 250 ml @ 166.667 mls/hr 1X ONCE IV Last administered on 09/27/21at 06:27; Start 09/27/21 at 06:00; Stop 09/27/21 at 07:29; Status DC Gadoterate Meglumine (Clariscan) 19 ml 1X ONCE IVP Last administered on 09/29/21at 10:32; Start 09/29/21 at 08:15; Stop 09/29/21 at 08:17; Status DC Bisacodyl (Dulcolax Supp) 10 mg PRN DAILY PRN [place] CONSTIPATION; Start 09/29/21 at 14:15 Lactulose (Lactulose) 20 gm PRN DAILY PRN PO CONSTIPATION, 2nd choice Last administered on 10/01/21at 08:35; Start 09/29/21 at 14:30 Ascorbic Acid (Vitamin C) 500 mg DAILY PO Last administered on 10/26/21at 08:24; Start 10/02/21 at 10:00 Levofloxacin/ Dextrose 100 ml @ 100 mls/hr Q24H IV Last administered on 10/02/21at 12:15; Start 10/02/21 at 12:00; Stop 10/03/21 at 08:57; Status DC Levofloxacin/ Dextrose 50 ml @ 50 mls/hr Q24H IV Last administered on 10/06/21at 15:19; Start 10/03/21 at 12:00; Stop 10/06/21 at 23:00; Status DC Lactobacillus Rhamnosus (Culturelle) 1 cap BID PO Last administered on 10/26/21at 08:24; Start 10/03/21 at 21:00 Lidocaine (Lidoderm) 1 patch QHS TP Last administered on 10/25/21at 21:16; Start 10/04/21 at 22:00 Levofloxacin (Levaquin) 250 mg DAILY06 PO Last administered on 10/11/21at 06:13; Start 10/07/21 at 06:00; Stop 10/11/21 at 12:00; Status DC Insulin Human Lispro (HumaLOG) 0-5 UNITS TIDWMEALS SQ Last administered on 10/18/21at 12:16; Start 10/12/21 at 08:00; Stop 10/19/21 at 15:15; Status DC Dextrose (Dextrose 50%-Water Syringe) 12.5 gm PRN Q15MIN PRN IV SEE COMMENTS; Start 10/11/21 at 19:00 Dextrose (Iv Dextrose 5%) 250 ml PRN Q15MIN PRN IV SEE COMMENTS; Start 10/11/21 at 19:00 Potassium Chloride (Klor-Con) 40 meq 1X ONCE PO Last administered on 10/15/21at 10:21; Start 10/15/21 at 10:30; Stop 10/15/21 at 10:31; Status DC Magnesium Sulfate 50 ml @ 25 mls/hr 1X ONCE IV Last administered on 10/15/21at 10:20; Start 10/15/21 at 10:30; Stop 10/15/21 at 12:29; Status DC Baclofen (Lioresal) 10 mg Q8HRS PO Last administered on 10/17/21at 06:02; Start 10/16/21 at 22:00; Stop 10/17/21 at 11:58; Status DC Baclofen (Lioresal) 10 mg Q6HRS PO Last administered on 10/26/21at 11:07; Start 10/17/21 at 12:00 Triamcinolone Acetonide (Kenalog-40) 40 mg 1X ONCE IM Last administered on 10/17/21at 12:15; Start 10/17/21 at 12:15; Stop 10/17/21 at 12:16; Status DC Bupivacaine HCl (Sensorcaine-Mpf 0.25%) 10 ml 1X ONCE IJ Last administered on 10/17/21at 12:00; Start 10/17/21 at 12:00; Stop 10/17/21 at 12:01; Status DC Magnesium Sulfate 100 ml @ 25 mls/hr 1X ONCE IV Last administered on 10/18/21at 14:11; Start 10/18/21 at 14:30; Stop 10/18/21 at 18:29; Status DC Vitamin B Complex (Folbic Tablet) 1 tab DAILY PO Last administered on 10/26/21 08:24; Start 10/18/21 at 14:30 Non-Formulary Medication (L-Carnitine 500 Mg Capsule) 1 ea DAILY PO Last administered on 10/26/21 08:25; Start 10/19/21 at 13:00 Insulin Human Lispro (HumaLOG) 0-5 UNITS PRN BFRMEAL PRN SQ SEE ADMIN INSTRUCTIONS Last administered on 10/22/21at 12:46; Start 10/19/21 at 15:15 Oxycodone HCl (Roxicodone) 5 mg PRN Q3HRS PRN PO MODERATE-SEVERE PAIN Last administered on 10/26/21at 10:20; Start 10/22/21 at 16:30 Diazepam (Valium) 5 mg PRN TID PRN PO ANXIETY Last administered on 10/25/21at 23:01; Start 10/22/21 at 19:30 Bacitracin (Bacitracin Zinc Oint Pkt) 1 pkt BID TP Last administered on 10/26/21at 08:24; Start 10/25/21 at 13:00 Active Scripts Active Dok (Docusate Sodium) 100 Mg Capsule 100 Mg PO PRN BID PRN 30 Days Tylenol (Acetaminophen) 325 Mg Tablet 650 Mg PO PRN Q4HRS PRN 30 Days Valium (Diazepam) 5 Mg Tablet 5 Mg PO TID Atorvastatin Calcium 10 Mg Tablet 10 Mg PO QHS Reported Midodrine Hcl 2.5 Mg Tablet 2.5 Mg PO PRN 1X PRN Aspirin 81 Mg Tab.chew 81 Mg PO DAILY Baclofen 10 Mg Tablet 10 Mg PO BID Lyrica (Pregabalin) 100 Mg Capsule 100 Mg PO BID 30 Days Polyethylene Glycol 3350 2,500 Gm Powder 17 Gm PO DAILY 30 Days Micatin (Miconazole Nitrate) 14 Gm Cream..g. 1 Crispin TP TID Tradjenta (Linagliptin) 5 Mg Tablet 5 Mg PO DAILY Lidocaine PATCH (Lidocaine) 1 Each Adh..patch 1 Each TP DAILY REMOVE AFTER 12 HOURS Levemir (Insulin Detemir) 100 Unit/1 Ml Vial 4 Unit SQ HS Hydroxyzine Hcl 25 Mg Tablet 25 Mg PO PRN Q6HRS PRN Fluticasone Propionate Nasal [place]vier (Fluticasone Propionate) 16 Gm [place]vier.susp 2 [place] NS DAILY Diclofenac Sodium 100 Gm Gel..gram. 100 Gm TP PRN TID PRN Losartan Potassium 100 Mg Tablet 25 Tab PO DAILY08 Vitals/I & O Vital Sign - Last 24 Hours 10/25/21 10/25/21 10/25/21 10/25/21 15:00 19:00 20:05 21:16 Temp 97.6 98.3 97.6 98.3 Pulse 77 72 Resp 16 14 20 B/P (MAP) 122/57 (78) 121/60 (80) Pulse Ox 96 96 O2 Delivery Room Air Room Air Room Air Room Air 10/25/21 10/25/21 10/26/21 10/26/21 21:46 23:00 00:17 00:47 Temp 99.7 99.7 Pulse 71 Resp 20 14 20 20 B/P (MAP) 114/51 (72) Pulse Ox 95 O2 Delivery Room Air Room Air Room Air Room Air 10/26/21 10/26/21 10/26/21 10/26/21 03:00 06:08 07:00 07:37 Temp 97.6 97.6 Pulse 61 60 Resp 14 20 18 B/P (MAP) 106/56 (73) 124/63 (83) Pulse Ox 97 96 O2 Delivery Room Air Room Air Room Air 10/26/21 10/26/21 08:24 11:00 Temp 97.8 97.8 Pulse 60 72 Resp 18 B/P (MAP) 124/63 110/56 (74) Pulse Ox 96 Intake and Output 10/25/21 10/25/21 10/26/21 15:00 23:00 07:00 Output Total 2350 ml 1000 ml Balance -2350 ml -1000 ml Justicifation of Admission Dx: Justifications for Admission: Justification of Admission Dx: Yes RICH HUGGINS MD Oct 26, 2021 12:12
--- NOTE | 2021-10-26 12:43 | PDOC ---
[facility] PROGRESS NOTE Date of Service DOS: DATE: 10/26/21 TIME: 12:43 Chief Complaint Chief Complaint Cervical spinal cord injury - Concern for C5 cord edema, cord compression, a right lateral C5 fracture, and concern for numerous ligamentous injuries. 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 S/p decompression 07/26/2021 and repeat surgeries 09/25 and 09/26 Diabetes - sliding scale plus basal HTN - prn hydralazine HLD - statin when taking PO Cervical laminectomy as per above, diabetes, hypertension, hyperlipidemia, arthritis, GERD, left knee arthroplasty and TIA S/p; IVC filter FEN - ADAT PPX - SCDs FULL CODE Dispo - Inpatient History of Present Illness History of Present Illness 10/26 Patient evaluated examined at bedside. Resting in bed no complaints. waiting on transfer to skilled facility. physiatry and neuro following, Vitals/I&O Vitals/I&O: Vital Signs Date Time Temp Pulse Resp B/P (MAP) Pulse Ox O2 Delivery O2 Flow Rate FiO2 10/26/21 11:00 97.8 72 18 110/56 (74) 96 97.8 10/26/21 07:37 Room Air I & O 10/25/21 10/25/21 10/26/21 15:00 23:00 07:00 Output Total 2350 ml 1000 ml Balance -2350 ml -1000 ml Physical Exam General: Alert, Oriented X3, Cooperative, No acute distress Heart: Regular rate Lungs: Clear Abdomen: Normal bowel sounds, Soft, No tenderness Extremities: No edema, Normal pulses Skin: Other Labs Labs: Laboratory Tests Test 10/25/21 21:11 Glucose (Fingerstick) 181 mg/dL (70-99) Comment Review of Relevant I have reviewed the following items michelle (where applicable) has been applied. Medications: Current Medications Medications (Trade) Dose Ordered Sig/[place] Route PRN Reason Start Time Stop Time Status Last Admin Dose Admin Bacitracin (Bacitracin Zinc Oint Pkt) 1 pkt BID TP 10/25/21 13:00 10/26/21 08:24 Justifications for Admission Other Justification uncontrolled diabetes KATY CISNEROS MD Oct 26, 2021 12:43
[2021-10-26 15:00] VITALS: BP 134/62
[2021-10-26] MEDS ORDERED: [UNRECOGNIZED DRUG - OTHER] VAX IM ONE (15:15)
[2021-10-26 19:00] VITALS: BP 137/63
[2021-10-26] MEDS: ATORVASTATIN CALCIUM 10 MG TABLET. PO SCH (21:13)
[2021-10-26] MEDS: LIDOCAINE (700MG/PATCH) PATCH. TP SCH (21:14)
[2021-10-26] MEDS: INSULIN GLARGINE SYRINGE. SQ SCH (21:22)
[2021-10-26 23:00] VITALS: BP 144/76
[2021-10-26] MEDS: diazePAM 5 MG TABLET PO PRN (23:05)
[2021-10-27] MEDS: oxyCODONE IR 5 MG TABLET PO PRN ×6 (00:07→15:06)
[2021-10-27] MEDS: BACLOFEN 10 MG TABLET. PO SCH ×3 (00:07→12:12)
[2021-10-27 03:00] VITALS: BP 119/66
[2021-10-27 07:00] VITALS: BP 110/58
--- NOTE | 2021-10-27 08:38 | PDOC ---
PROGRESS NOTES Date of Service DATE: 10/27/21 TIME: 08:36 Subjective Subjective No new complaints. Objective Objective Vital Signs Date Time Temp Pulse Resp B/P (MAP) Pulse Ox O2 Delivery O2 Flow Rate FiO2 10/27/21 07:00 97.8 62 16 110/58 (75) 97 Room Air 97.8 10/24/21 13:00 2.0 Intake and Output 10/27/21 07:00 Output Total 1850 ml Balance -1850 ml Output Urine Total 1850 ml # Bowel Movements 1 Physical Exam Physical Exam He is alert,supine in bed and he had active hip adduction and movements of his toes bilaterally. Plan Plan of Care Agree with plans for transfer to [facility] when medically stable. Comment Review of Relevant I have reviewed the following items michelle (where applicable) has been applied. Labs Laboratory Tests Test 10/25/21 21:11 10/26/21 11:50 10/26/21 21:08 Glucose (Fingerstick) 181 mg/dL (70-99) 175 mg/dL (70-99) Coronavirus (COVID-19)(PCR) Not detected (NOT DETECTD) Laboratory Tests Test 10/26/21 11:50 10/26/21 21:08 Coronavirus (COVID-19)(PCR) Not detected (NOT DETECTD) Glucose (Fingerstick) 175 mg/dL (70-99) Microbiology 10/01/21 Urine Culture - Final, Complete Escherichia Coli Escherichia Coli#2 Medications Current Medications Fentanyl Citrate (Fentanyl 2ml Vial) 25 mcg PRN Q5MIN PRN IVP MILD PAIN 1-3; Start 09/25/21 at 06:00; Stop 09/25/21 at 20:00; Status DC Fentanyl Citrate (Fentanyl 2ml Vial) 50 mcg PRN Q5MIN PRN IVP MODERATE PAIN 4-6 Last administered on 09/25/21at 13:48; Start 09/25/21 at 06:00; Stop 09/25/21 at 20:00; Status DC Morphine Sulfate (Morphine Sulfate) 1 mg PRN Q10MIN PRN IVP SEVERE PAIN 7-10 Last administered on 09/25/21at 14:21; Start 09/25/21 at 06:00; Stop 09/25/21 at 20:00; Status DC Ringer's Solution 1,000 ml @ 30 mls/hr Q24H IV Last administered on 09/25/21at 12:54; Start 09/25/21 at 06:00; Stop 09/25/21 at 17:59; Status DC Hydromorphone HCl (Dilaudid) 0.5 mg PRN Q10MIN PRN IVP SEVERE PAIN 7-10, 2nd CHOICE Last administered on 09/25/21at 16:53; Start 09/25/21 at 06:00; Stop 09/25/21 at 20:00; Status DC Prochlorperazine Edisylate (Compazine) 5 mg PACU PRN PRN IVP NAUSEA, MRX1; Start 09/25/21 at 06:00; Stop 09/25/21 at 20:00; Status DC Cefazolin Sodium 1 gm/Sodium Chloride 1,000 ml @ 1,000 mls/hr 1X ONCE IRR Last administered on 09/25/21at 10:14; Start 09/25/21 at 06:00; Stop 09/25/21 at 06:59; Status DC Cefazolin Sodium/ Dextrose 50 ml @ 100 mls/hr 1X PREOP PRN IV PRIOR TO PROCEDURE Last administered on 09/25/21at 09:30; Start 09/25/21 at 06:00; Stop 09/25/21 at 13:39; Status DC Insulin Human Lispro (HumaLOG VIAL for OP,RR ONLY) 0-10 units PRN Q1HR PRN SQ PER PROTOCOL Last administered on 09/25/21at 17:01; Start 09/25/21 at 07:00; Stop 09/25/21 at 18:00; Status DC Bupivacaine HCl/ Epinephrine Bitart (Sensorcain-Epi 0.5% Kit) 30 ml STK-MED ONCE INJ Last administered on 09/25/21at 10:14; Start 09/25/21 at 10:14; Stop 09/25/21 at 10:30; Status DC Ketorolac Tromethamine (Toradol Im) 60 mg STK-MED ONCE INJ Last administered on 09/25/21at 10:14; Start 09/25/21 at 10:14; Stop 09/25/21 at 10:30; Status DC Thrombin 20,000 unit STK-MED ONCE TP Last administered on 09/25/21at 10:14; Start 09/25/21 at 10:14; Stop 09/25/21 at 10:30; Status DC Gelatin (Gelfoam Size 100) 1 each STK-MED ONCE TP Last administered on 09/25/21 10:14; Start 09/25/21 at 10:14; Stop 09/25/21 at 10:30; Status DC Acetaminophen (Tylenol) 650 mg PRN Q4HRS PRN PO TEMP OVER 100.4F OR MILD PAIN Last administered on 10/24/21at 15:43; Start 09/25/21 at 12:30 Aspirin (Aspirin Chewable) 81 mg DAILY PO Last administered on 09/26/21 08:30; Start 09/26/21 at 09:00; Stop 09/28/21 at 17:19; Status DC Atorvastatin Calcium (Lipitor) 10 mg QHS PO Last administered on 10/26/21at 21:13; Start 09/25/21 at 21:00 Baclofen (Lioresal) 10 mg BID PO Last administered on 10/16/21 08:26; Start 09/25/21 at 21:00; Stop 10/16/21 at 13:21; Status DC Diazepam (Valium) 5 mg TID PO Last administered on 10/22/21 12:35; Start 09/25/21 at 14:00; Stop 10/22/21 at 19:23; Status DC Docusate Sodium (Colace) 100 mg PRN BID PRN PO HARD STOOLS Last administered on 10/15/21 10:22; Start 09/25/21 at 12:30 Fluticasone Propionate (Flonase) 2 spray DAILY NS Last administered on 10/17/21at 12:58; Start 09/26/21 at 09:00 Hydroxyzine HCl (Atarax) 25 mg PRN Q6HRS PRN PO Itching (2ND Choice) Last administered on 10/25/21 23:01; Start 09/25/21 at 12:30 Lidocaine (Lidoderm) 1 patch QHS TP Last administered on 10/03/21 23:31; Start 09/25/21 at 20:00; Stop 10/05/21 at 01:01; Status DC Linagliptin (Tradjenta) 5 mg DAILY PO Last administered on 10/26/21at 08:24; Start 09/25/21 at 13:00 Miconazole Nitrate (Monistat-Derm) 1 crispin TID TP Last administered on 10/04/21at 20:08; Start 09/25/21 at 21:00; Stop 10/05/21 at 13:23; Status DC Midodrine (Proamatine) 2.5 mg PRN 1X PRN PO hypotension Last administered on 09/27/21at 08:56; Start 09/25/21 at 12:30 Oxycodone HCl (Roxicodone) 10 mg PRN Q6HRS PRN PO MODERATE-SEVERE PAIN Last administered on 10/22/21at 12:35; Start 09/25/21 at 12:30; Stop 10/22/21 at 16:20; Status DC Diclofenac Sodium (Voltaren) 1 crispin PRN TID PRN TP PAIN CONTROL; Start 09/25/21 at 13:15; Stop 09/25/21 at 18:37; Status DC Insulin Glargine (Lantus Syringe) 4 unit QHS SQ Last administered on 10/26/21at 21:22; Start 09/25/21 at 21:00 Losartan Potassium (Cozaar) 25 mg DAILY08 PO Last administered on 10/26/21 08:24; Start 09/26/21 at 08:00 Polyethylene Glycol (miraLAX PACKET) 17 gm DAILY PO Last administered on 10/13/21at 08:53; Start 09/25/21 at 14:00 Pregabalin (Lyrica) 100 mg BID PO Last administered on 10/26/21at 21:14; Start 09/25/21 at 21:00 Acetaminophen (Tylenol) 650 mg PRN Q6HRS PRN PO MILD PAIN / TEMP > 100.3'F; Start 09/25/21 at 12:30; Status Cancel Al Hydroxide/Mg Hydroxide (Mylanta Plus Xs) 30 ml PRN Q3HRS PRN PO HEARTBURN / GAS; Start 09/25/21 at 12:30 Calcium Carbonate/ Glycine (Tums) 500 mg PRN Q3HRS PRN PO INDIGESTION; Start 09/25/21 at 12:30 Diphenhydramine HCl (Benadryl) 25 mg PRN Q6HRS PRN PO ITCHING (1ST CHOICE) Last administered on 10/26/21at 23:05; Start 09/25/21 at 12:30 Naloxone HCl (Narcan) 0.1 mg PRN Q2MIN PRN IV SEE COMMENTS; Start 09/25/21 at 12:30 Sodium Chloride (Normal Saline Flush) 3 ml QSHIFT PRN IV AFTER MEDS AND BLOOD DRAWS; Start 09/25/21 at 12:30 Potassium Chloride/Sodium Chloride 1,000 ml @ 75 mls/hr [id number] IV Last administered on 09/26/21at 07:00; Start 09/25/21 at 12:30; Stop 09/26/21 at 17:33; Status DC Magnesium Hydroxide (Milk Of Magnesia) 2,400 mg PRN Q12HR PRN PO CONSTIPATION; Start 09/25/21 at 12:30 Cefazolin Sodium (Ancef) 1 gm Q8H IVP Last administered on 09/26/21at 04:14; Start 09/25/21 at 18:00; Stop 09/26/21 at 10:01; Status DC Fentanyl Citrate (Fentanyl 2ml Vial) 50 mcg PRN Q2HR PRN IVP MODERATE TO SEVERE PAIN Last administered on 10/05/21at 22:46; Start 09/25/21 at 12:30 Dextrose (Dextrose 50%-Water Syringe) 12.5 gm PRN Q15MIN PRN IV SEE COMMENTS; Start 09/25/21 at 12:30; Status Cancel Dextrose (Iv Dextrose 5%) 250 ml PRN Q15MIN PRN IV SEE COMMENTS; Start 09/25/21 at 12:30; Status Cancel Gelatin (Gelfoam Size 100) 1 each STK-MED ONCE .ROUTE ; Start 09/25/21 at 06:37; Stop 09/25/21 at 14:55; Status DC Bupivacaine HCl/ Epinephrine Bitart (Sensorcain-Epi 0.5% Kit) 30 ml STK-MED ONCE .ROUTE ; Start 09/25/21 at 06:37; Stop 09/25/21 at 14:55; Status DC Ketorolac Tromethamine (Toradol Im) 60 mg STK-MED ONCE .ROUTE ; Start 09/25/21 at 06:37; Stop 09/25/21 at 14:55; Status DC Thrombin 20,000 unit STK-MED ONCE TP ; Start 09/25/21 at 06:38; Stop 09/25/21 at 14:55; Status DC Propofol (Diprivan) 200 mg STK-MED ONCE IV ; Start 09/25/21 at 05:54; Stop 09/25/21 at 14:57; Status DC Lidocaine HCl (Lidocaine Pf 2% Vial) 5 ml STK-MED ONCE .ROUTE ; Start 09/25/21 at 05:54; Stop 09/25/21 at 14:57; Status DC Ondansetron HCl (Zofran) 4 mg STK-MED ONCE .ROUTE ; Start 09/25/21 at 05:54; Stop 09/25/21 at 14:57; Status DC Phenylephrine HCl (Ramone-Synephrine Inj) 10 mg STK-MED ONCE .ROUTE ; Start 09/25/21 at 05:54; Stop 09/25/21 at 14:57; Status DC Propofol 50 ml @ As Directed STK-MED ONCE IV ; Start 09/25/21 at 05:54; Stop 09/25/21 at 14:57; Status DC Dexamethasone Sodium Phosphate (Decadron) 4 mg STK-MED ONCE .ROUTE ; Start 09/25/21 at 05:54; Stop 09/25/21 at 14:57; Status DC Fentanyl Citrate (Fentanyl 2ml Vial) 100 mcg STK-MED ONCE .ROUTE ; Start 09/25/21 at 05:54; Stop 09/25/21 at 14:57; Status DC Succinylcholine Chloride (Anectine) 200 mg STK-MED ONCE .ROUTE ; Start 09/25/21 at 05:54; Stop 09/25/21 at 14:57; Status DC Remifentanil HCl (Ultiva) 1 mg STK-MED ONCE IV ; Start 09/25/21 at 05:54; Stop 09/25/21 at 14:57; Status DC Glycopyrrolate (Robinul) 1 mg STK-MED ONCE .ROUTE ; Start 09/25/21 at 07:11; Stop 09/25/21 at 15:01; Status DC Propofol 50 ml @ As Directed STK-MED ONCE IV ; Start 09/25/21 at 08:07; Stop 09/25/21 at 15:02; Status DC Ketamine HCl (Ketamine) 50 mg STK-MED ONCE .ROUTE ; Start 09/25/21 at 08:15; Stop 09/25/21 at 15:02; Status DC Hydromorphone HCl (Dilaudid) 2 mg STK-MED ONCE .ROUTE ; Start 09/25/21 at 10:44; Stop 09/25/21 at 15:03; Status DC Fentanyl Citrate (Fentanyl 2ml Vial) 100 mcg STK-MED ONCE .ROUTE ; Start 09/25/21 at 13:26; Stop 09/25/21 at 15:04; Status DC Morphine Sulfate (Morphine Sulfate) 2 mg STK-MED ONCE .ROUTE ; Start 09/25/21 at 14:04; Stop 09/25/21 at 15:05; Status DC Hydromorphone HCl (Dilaudid) 2 mg STK-MED ONCE .ROUTE ; Start 09/25/21 at 14:54; Stop 09/25/21 at 15:06; Status DC Menthol/Methyl Salicylate (Bengay Greaseless Cream) 1 crispin PRN Q30MIN PRN TP MUSCLE PAIN Last administered on 10/02/21at 21:03; Start 09/25/21 at 18:45 Mupirocin (Bactroban) 1 crispin BID NS Last administered on 10/12/21at 21:09; Start 09/26/21 at 09:00; Stop 10/13/21 at 07:56; Status DC Dexamethasone Sodium Phosphate (Decadron) 10 mg 1X ONCE IVP Last administered on 09/26/21at 07:31; Start 09/26/21 at 07:30; Stop 09/26/21 at 07:31; Status DC Cefazolin Sodium 1 gm/Sodium Chloride 1,000 ml @ 1,000 mls/hr 1X ONCE IRR Last administered on 09/26/21at 11:52; Start 09/26/21 at 10:30; Stop 09/26/21 at 11:29; Status DC Cefazolin Sodium (Ancef) 1 gm STK-MED ONCE IVP ; Start 09/26/21 at 10:05; Stop 09/26/21 at 10:06; Status DC Lidocaine HCl (Lidocaine Pf 2% Vial) 5 ml STK-MED ONCE .ROUTE ; Start 09/26/21 at 10:18; Stop 09/26/21 at 10:18; Status DC Ondansetron HCl (Zofran) 4 mg STK-MED ONCE .ROUTE ; Start 09/26/21 at 10:18; Stop 09/26/21 at 10:18; Status DC Propofol (Diprivan) 200 mg STK-MED ONCE IV ; Start 09/26/21 at 10:18; Stop 09/26/21 at 10:19; Status DC Dexamethasone Sodium Phosphate (Decadron) 4 mg STK-MED ONCE .ROUTE ; Start 09/26/21 at 10:18; Stop 09/26/21 at 10:19; Status DC Sevoflurane (Ultane) 30 ml STK-MED ONCE IH ; Start 09/26/21 at 10:18; Stop 09/26/21 at 10:19; Status DC Fentanyl Citrate (Fentanyl 2ml Vial) 100 mcg STK-MED ONCE .ROUTE ; Start 09/26/21 at 10:19; Stop 09/26/21 at 10:19; Status DC Rocuronium Morrow (Zemuron) 50 mg STK-MED ONCE .ROUTE ; Start 09/26/21 at 10:19; Stop 09/26/21 at 10:19; Status DC Insulin Human Lispro (HumaLOG VIAL for OP,RR ONLY) 0-10 units PRN Q1HR PRN SQ PER PROTOCOL Last administered on 09/26/21at 15:11; Start 09/26/21 at 10:30; Stop 09/26/21 at 18:00; Status DC Sugammadex Sodium (Bridion) 200 mg 1X ONCE IVP Last administered on 09/26/21at 10:30; Start 09/26/21 at 10:30; Stop 09/26/21 at 10:31; Status DC Gelatin (Gelfoam Size 100) 1 each STK-MED ONCE .ROUTE Last administered on 09/26/21at 11:52; Start 09/26/21 at 10:30; Stop 09/26/21 at 10:30; Status DC Bupivacaine HCl/ Epinephrine Bitart (Sensorcain-Epi 0.5% Kit) 30 ml STK-MED ONCE .ROUTE ; Start 09/26/21 at 10:30; Stop 09/26/21 at 10:30; Status DC Ketorolac Tromethamine (Toradol Im) 60 mg STK-MED ONCE .ROUTE ; Start 09/26/21 at 10:30; Stop 09/26/21 at 10:30; Status DC Thrombin 20,000 unit STK-MED ONCE TP Last administered on 09/26/21at 11:52; Start 09/26/21 at 10:30; Stop 09/26/21 at 10:31; Status DC Cefazolin Sodium/ Dextrose 50 ml @ As Directed STK-MED ONCE IV ; Start 09/26/21 at 10:32; Stop 09/26/21 at 10:32; Status DC Vancomycin HCl 1 gm/Sodium Chloride 250 ml @ 250 mls/hr PREOP PRN PRN IV PRIOR TO PROCEDURE; Start 09/26/21 at 10:45; Stop 09/26/21 at 14:00; Status DC Cefazolin Sodium/ Dextrose 50 ml @ 100 mls/hr 1X ONCE IV Last administered on 09/26/21at 11:00; Start 09/26/21 at 11:00; Stop 09/26/21 at 11:29; Status DC Dexamethasone Sodium Phosphate (Decadron) 4 mg STK-MED ONCE .ROUTE ; Start 09/26/21 at 11:04; Stop 09/26/21 at 11:04; Status DC Glycopyrrolate (Robinul) 1 mg STK-MED ONCE .ROUTE ; Start 09/26/21 at 11:04; Stop 09/26/21 at 11:04; Status DC Hydromorphone HCl (Dilaudid) 2 mg STK-MED ONCE .ROUTE ; Start 09/26/21 at 11:56; Stop 09/26/21 at 11:56; Status DC Fentanyl Citrate (Fentanyl 2ml Vial) 25 mcg PRN Q5MIN PRN IVP MILD PAIN 1-3; Start 09/26/21 at 14:30; Stop 09/26/21 at 18:15; Status DC Fentanyl Citrate (Fentanyl 2ml Vial) 50 mcg PRN Q5MIN PRN IVP MODERATE PAIN 4- 6; Start 09/26/21 at 14:30; Stop 09/26/21 at 18:15; Status DC Morphine Sulfate (Morphine Sulfate) 1 mg PRN Q10MIN PRN IVP SEVERE PAIN 7-10; Start 09/26/21 at 14:30; Stop 09/26/21 at 18:15; Status DC Ringer's Solution 1,000 ml @ 30 mls/hr Q24H IV Last administered on 09/26/21at 15:18; Start 09/26/21 at 14:30; Stop 09/26/21 at 21:00; Status DC Hydromorphone HCl (Dilaudid) 0.5 mg PRN Q10MIN PRN IVP SEVERE PAIN 7-10, 2nd CHOICE; Start 09/26/21 at 14:30; Stop 09/26/21 at 18:15; Status DC Prochlorperazine Edisylate (Compazine) 5 mg PACU PRN PRN IVP NAUSEA, MRX1; Start 09/26/21 at 14:30; Stop 09/26/21 at 21:00; Status DC Fentanyl Citrate (Fentanyl 2ml Vial) 100 mcg STK-MED ONCE .ROUTE ; Start 09/26/21 at 14:23; Stop 09/26/21 at 14:25; Status DC Fentanyl Citrate (Fentanyl 2ml Vial) 25 mcg PRN Q5MIN PRN IVP MILD PAIN 1-3; Start 09/26/21 at 14:30; Stop 09/27/21 at 14:29; Status UNV Fentanyl Citrate (Fentanyl 2ml Vial) 50 mcg PRN Q5MIN PRN IVP MODERATE PAIN 4- 6; Start 09/26/21 at 14:30; Stop 09/27/21 at 14:29; Status UNV Morphine Sulfate (Morphine Sulfate) 1 mg PRN Q10MIN PRN IVP SEVERE PAIN 7-10; Start 09/26/21 at 14:30; Stop 09/27/21 at 14:29; Status UNV Ringer's Solution 1,000 ml @ 30 mls/hr Q24H IV ; Start 09/26/21 at 14:30; Stop 09/27/21 at 02:29; Status UNV Hydromorphone HCl (Dilaudid) 0.5 mg PRN Q10MIN PRN IVP SEVERE PAIN 7-10, 2nd CHOICE; Start 09/26/21 at 14:30; Stop 09/27/21 at 14:29; Status UNV Prochlorperazine Edisylate (Compazine) 5 mg PACU PRN PRN IVP NAUSEA, MRX1; Start 09/26/21 at 14:30; Stop 09/27/21 at 14:29; Status UNV Dexamethasone Sodium Phosphate (Decadron) 4 mg Q6HRS IVP Last administered on 09/28/21at 05:06; Start 09/26/21 at 18:00; Stop 09/28/21 at 06:00; Status DC Sodium Chloride 1,000 ml @ 100 mls/hr Q10H IV Last administered on 10/05/21at 06:41; Start 09/26/21 at 17:30; Stop 10/05/21 at 13:48; Status DC Cefazolin Sodium (Ancef) 1 gm Q8HRS IVP ; Start 09/27/21 at 06:00; Stop 09/27/21 at 05:47; Status DC Vancomycin HCl 1 gm/Sodium Chloride 250 ml @ 166.667 mls/hr 1X ONCE IV Last administered on 09/27/21at 06:27; Start 09/27/21 at 06:00; Stop 09/27/21 at 07:29; Status DC Gadoterate Meglumine (Clariscan) 19 ml 1X ONCE IVP Last administered on 09/29/21at 10:32; Start 09/29/21 at 08:15; Stop 09/29/21 at 08:17; Status DC Bisacodyl (Dulcolax Supp) 10 mg PRN DAILY PRN [place] CONSTIPATION; Start 09/29/21 at 14:15 Lactulose (Lactulose) 20 gm PRN DAILY PRN PO CONSTIPATION, 2nd choice Last a dministered on 10/01/21at 08:35; Start 09/29/21 at 14:30 Ascorbic Acid (Vitamin C) 500 mg DAILY PO Last administered on 10/26/21at 08:24; Start 10/02/21 at 10:00 Levofloxacin/ Dextrose 100 ml @ 100 mls/hr Q24H IV Last administered on 10/02/21at 12:15; Start 10/02/21 at 12:00; Stop 10/03/21 at 08:57; Status DC Levofloxacin/ Dextrose 50 ml @ 50 mls/hr Q24H IV Last administered on 10/06/21at 15:19; Start 10/03/21 at 12:00; Stop 10/06/21 at 23:00; Status DC Lactobacillus Rhamnosus (Culturelle) 1 cap BID PO Last administered on 10/26/21at 08:24; Start 10/03/21 at 21:00 Lidocaine (Lidoderm) 1 patch QHS TP Last administered on 10/26/21at 21:14; Start 10/04/21 at 22:00 Levofloxacin (Levaquin) 250 mg DAILY06 PO Last administered on 10/11/21at 06:13; Start 10/07/21 at 06:00; Stop 10/11/21 at 12:00; Status DC Insulin Human Lispro (HumaLOG) 0-5 UNITS TIDWMEALS SQ Last administered on 10/18/21at 12:16; Start 10/12/21 at 08:00; Stop 10/19/21 at 15:15; Status DC Dextrose (Dextrose 50%-Water Syringe) 12.5 gm PRN Q15MIN PRN IV SEE COMMENTS; Start 10/11/21 at 19:00 Dextrose (Iv Dextrose 5%) 250 ml PRN Q15MIN PRN IV SEE COMMENTS; Start 10/11/21 at 19:00 Potassium Chloride (Klor-Con) 40 meq 1X ONCE PO Last administered on 10/15/21at 10:21; Start 10/15/21 at 10:30; Stop 10/15/21 at 10:31; Status DC Magnesium Sulfate 50 ml @ 25 mls/hr 1X ONCE IV Last administered on 10/15/21at 10:20; Start 10/15/21 at 10:30; Stop 10/15/21 at 12:29; Status DC Baclofen (Lioresal) 10 mg Q8HRS PO Last administered on 10/17/21at 06:02; Start 10/16/21 at 22:00; Stop 10/17/21 at 11:58; Status DC Baclofen (Lioresal) 10 mg Q6HRS PO Last administered on 10/27/21at 06:11; Start 10/17/21 at 12:00 Triamcinolone Acetonide (Kenalog-40) 40 mg 1X ONCE IM Last administered on 10/17/21at 12:15; Start 10/17/21 at 12:15; Stop 10/17/21 at 12:16; Status DC Bupivacaine HCl (Sensorcaine-Mpf 0.25%) 10 ml 1X ONCE IJ Last administered on 10/17/21at 12:00; Start 10/17/21 at 12:00; Stop 10/17/21 at 12:01; Status DC Magnesium Sulfate 100 ml @ 25 mls/hr 1X ONCE IV Last administered on 10/18/21at 14:11; Start 10/18/21 at 14:30; Stop 10/18/21 at 18:29; Status DC Vitamin B Complex (Folbic Tablet) 1 tab DAILY PO Last administered on 10/26/21at 08:24; Start 10/18/21 at 14:30 Non-Formulary Medication (L-Carnitine 500 Mg Capsule) 1 ea DAILY PO Last administered on 10/26/21at 08:25; Start 10/19/21 at 13:00 Insulin Human Lispro (HumaLOG) 0-5 UNITS PRN BFRMEAL PRN SQ SEE ADMIN INSTRUCTIONS Last administered on 10/22/21at 12:46; Start 10/19/21 at 15:15 Oxycodone HCl (Roxicodone) 5 mg PRN Q3HRS PRN PO MODERATE-SEVERE PAIN Last administered on 10/27/21at 06:11; Start 10/22/21 at 16:30 Diazepam (Valium) 5 mg PRN TID PRN PO ANXIETY Last administered on 10/26/21at 23:05; Start 10/22/21 at 19:30 Bacitracin (Bacitracin Zinc Oint Pkt) 1 pkt BID TP Last administered on 10/26/21at 21:14; Start 10/25/21 at 13:00 COVID-19 Vacc mRNA LNP-S (MOD) (PF) (Moderna Covid19 Vaccine) 0.25 ml ONCE ONCE VAX IM Last administered on 10/26/21at 15:31; Start 10/26/21 at 15:15; Stop 10/26/21 at 15:17; Status DC Active Scripts Active Dok (Docusate Sodium) 100 Mg Capsule 100 Mg PO PRN BID PRN 30 Days Tylenol (Acetaminophen) 325 Mg Tablet 650 Mg PO PRN Q4HRS PRN 30 Days Valium (Diazepam) 5 Mg Tablet 5 Mg PO TID Atorvastatin Calcium 10 Mg Tablet 10 Mg PO QHS Reported Midodrine Hcl 2.5 Mg Tablet 2.5 Mg PO PRN 1X PRN Aspirin 81 Mg Tab.chew 81 Mg PO DAILY Baclofen 10 Mg Tablet 10 Mg PO BID Lyrica (Pregabalin) 100 Mg Capsule 100 Mg PO BID 30 Days Polyethylene Glycol 3350 2,500 Gm Powder 17 Gm PO DAILY 30 Days Micatin (Miconazole Nitrate) 14 Gm Cream..g. 1 Crispin TP TID Tradjenta (Linagliptin) 5 Mg Tablet 5 Mg PO DAILY Lidocaine PATCH (Lidocaine) 1 Each Adh..patch 1 Each TP DAILY REMOVE AFTER 12 HOURS Levemir (Insulin Detemir) 100 Unit/1 Ml Vial 4 Unit SQ HS Hydroxyzine Hcl 25 Mg Tablet 25 Mg PO PRN Q6HRS PRN Fluticasone Propionate Nasal Dale (Fluticasone Propionate) 16 Gm Dale.susp 2 Dale NS DAILY Diclofenac Sodium 100 Gm Gel..gram. 100 Gm TP PRN TID PRN Losartan Potassium 100 Mg Tablet 25 Tab PO DAILY08 Vitals/I & O Vital Sign - Last 24 Hours 10/26/21 10/26/21 10/26/21 10/26/21 11:00 15:00 19:00 20:00 Temp 97.8 98.2 98.4 97.8 98.2 98.4 Pulse 72 69 79 Resp 18 18 16 B/P (MAP) 110/56 (74) 134/62 (86) 137/63 (87) Pulse Ox 96 98 97 O2 Delivery Room Air Room Air 10/26/21 10/26/21 10/26/21 10/27/21 21:14 21:50 23:00 00:07 Temp 98.0 98.0 Pulse 73 Resp 16 16 16 16 B/P (MAP) 144/76 (98) Pulse Ox 99 O2 Delivery Room Air 10/27/21 10/27/21 10/27/21 10/27/21 01:48 03:00 03:09 03:40 Temp 97.9 97.9 Pulse 59 Resp 16 16 16 16 B/P (MAP) 119/66 (83) Pulse Ox 98 O2 Delivery Room Air 10/27/21 10/27/21 10/27/21 06:11 06:48 07:00 Temp 97.8 97.8 Pulse 62 Resp 16 16 16 B/P (MAP) 110/58 (75) Pulse Ox 97 O2 Delivery Room Air Intake and Output 10/26/21 10/26/21 10/27/21 15:00 23:00 07:00 Output Total 950 ml 900 ml Balance -950 ml -900 ml Justifications for Admission Other Justification uncontrolled diabetes TERRY JURADO MD Oct 27, 2021 08:38
[2021-10-27] MEDS: FLUTICASONE 50MCG/NASAL SPRAY 16GM BOTTLE. NS SCH (09:00)
[2021-10-27] MEDS: POLYETHYLENE GLYCOL 3350 17 GM PACKET. PO SCH (09:00)
[2021-10-27] MEDS: VITAMIN B12,B9,B6 COMPLEX 1 TABLET. PO SCH (09:19)
[2021-10-27] MEDS: LINAGLIPTIN 5 MG TABLET PO SCH (09:19)
[2021-10-27] MEDS: LOSARTAN POTASSIUM 25 MG TABLET. PO SCH (09:19)
[2021-10-27] MEDS: ASCORBIC ACID 500 MG TABLET PO SCH (09:19)
[2021-10-27] MEDS: CARNITINE 500 MG PO SCH (09:19)
[2021-10-27] MEDS: LACTOBACILLUS RHAMNOSUS GG 1 CAPSULE. PO SCH (09:19)
[2021-10-27] MEDS: PREGABALIN 50 MG CAPSULE PO SCH (09:20)
[2021-10-27] MEDS: BACITRACIN TOPICAL OINT PACKET. TP SCH (09:20)
--- NOTE | 2021-10-27 09:29 | SNU/HH DC ---
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 Physical Therapy For: Evalulation/Treatment Occupational Therapy For: Evaluation/Treatment Speech Language Pathology For: Evaluation/Treatment DISCHARGE MEDICATIONS: Home Meds Active Scripts Docusate Sodium (DOK) 100 Mg Capsule, 100 MG PO PRN BID PRN for HARD STOOLS for 30 Days, #60 CAP Prov:AIDE LENTZ MD 09/17/20 Acetaminophen (TYLENOL) 325 Mg Tablet, 650 MG PO PRN Q4HRS PRN for TEMP OVER 100.4F OR MILD PAIN for 30 Days, #60 TAB Prov:AIDE LENTZ MD 09/17/20 Diazepam (VALIUM) 5 Mg Tablet, 5 MG PO TID for SPASM, #15 TAB Prov:CINDA ERNANDEZ MD 06/30/20 Atorvastatin Calcium (ATORVASTATIN CALCIUM) 10 Mg Tablet, 10 MG PO QHS, #30 TAB-CAP Prov:TIMMY MARTINS MD 11/20/16 Reported Medications Midodrine Hcl (MIDODRINE HCL) 2.5 Mg Tablet, 2.5 MG PO PRN 1X PRN for hypotension, TAB 09/22/21 Aspirin (ASPIRIN) 81 Mg Tab.chew, 81 MG PO DAILY for blood thinner, TAB.CHEW 09/22/21 Baclofen (BACLOFEN) 10 Mg Tablet, 10 MG PO BID 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, #30 TAB 0 Refills 09/21/21 Pregabalin (LYRICA) 100 Mg Capsule, 100 MG PO BID for neurological pain for 30 Days, CAP 0 Refills 09/21/21 Polyethylene Glycol 3350 (POLYETHYLENE GLYCOL 3350) 2,500 Gm Powder, 17 GM PO DAILY for constipation for 30 Days, #527 GM 0 Refills 09/21/21 Miconazole Nitrate (MICATIN) 14 Gm Cream..g., 1 MARTHA TP TID for treat tinea pedis, EACH 2/3/22 Linagliptin (TRADJENTA) 5 Mg Tablet, 5 MG PO DAILY for TYPE 2 DIABETES, TAB 09/21/21 Lidocaine (Lidocaine PATCH ) 1 Each Adh..patch, 1 EACH TP DAILY for FOR LOCAL PAIN, PATCH REMOVE AFTER 12 HOURS 09/21/21 Insulin Detemir (LEVEMIR) 100 Unit/1 Ml Vial, 4 UNIT SQ HS for control diabetes, EACH 09/21/21 Hydroxyzine Hcl (HYDROXYZINE HCL) 25 Mg Tablet, 25 MG PO PRN Q6HRS PRN for itching, TAB 09/21/21 Fluticasone Propionate (FLUTICASONE PROPIONATE NASAL SPRAY) 16 Gm Jackson.susp, 2 SPRAY NS DAILY for control allergies, EACH 09/21/21 Diclofenac Sodium (DICLOFENAC SODIUM) 100 Gm Gel..gram., 100 GM TP PRN TID PRN for pain control, EACH 09/21/21 Losartan Potassium (LOSARTAN POTASSIUM) 100 Mg Tablet, 25 TAB PO DAILY08 for bp control, #30 11/18/16 STACY LÓPEZ MD Oct 27, 2021 09:29
[2021-10-27 10:36] VITALS: BP 136/77
[2021-10-27] MEDS ORDERED: OXYC5TAB4 PO (12:05)
[2021-10-27] MEDS ORDERED: BACL10TA PO (12:05)
--- NOTE | 2021-10-27 13:08 | PDOC ---
PROGRESS NOTES Date of Service DATE: 10/27/21 TIME: 13:02 Subjective Subjective POD #31 S/P Evacuation of epidural hematoma, s/p cervical laminectomy and fusion 09/25/21 pain well controlled plans to dc today Objective Objective Vital Signs Date Time Temp Pulse Resp B/P (MAP) Pulse Ox O2 Delivery O2 Flow Rate FiO2 10/27/21 12:12 97 Room Air 2.0 10/27/21 10:36 97.6 68 16 136/77 (96) 97.6 Intake and Output 10/27/21 07:00 Output Total 1850 ml Balance -1850 ml Output Urine Total 1850 ml # Bowel Movements 1 Physical Exam General: Alert, Cooperative, No acute distress Neuro: Normal speech, Other (active hip adduction and movements of his toes bilaterally) Plan Plan of Care dc to SNF today D/W sister f/u in 4 weeks Comment Review of Relevant I have reviewed the following items michelle (where applicable) has been applied. Labs Laboratory Tests Test 10/25/21 21:11 10/26/21 11:50 10/26/21 21:08 Glucose (Fingerstick) 181 mg/dL (70-99) 175 mg/dL (70-99) Coronavirus (COVID-19)(PCR) Not detected (NOT DETECTD) Laboratory Tests Test 10/26/21 21:08 Glucose (Fingerstick) 175 mg/dL (70-99) Microbiology 10/01/21 Urine Culture - Final, Complete Escherichia Coli Escherichia Coli#2 Medications Current Medications Fentanyl Citrate (Fentanyl 2ml Vial) 25 mcg PRN Q5MIN PRN IVP MILD PAIN 1-3; Start 09/25/21 at 06:00; Stop 09/25/21 at 20:00; Status DC Fentanyl Citrate (Fentanyl 2ml Vial) 50 mcg PRN Q5MIN PRN IVP MODERATE PAIN 4-6 Last administered on 09/25/21at 13:48; Start 09/25/21 at 06:00; Stop 09/25/21 at 20:00; Status DC Morphine Sulfate (Morphine Sulfate) 1 mg PRN Q10MIN PRN IVP SEVERE PAIN 7-10 Last administered on 09/25/21at 14:21; Start 09/25/21 at 06:00; Stop 09/25/21 at 20:00; Status DC Ringer's Solution 1,000 ml @ 30 mls/hr Q24H IV Last administered on 09/25/21at 12:54; Start 09/25/21 at 06:00; Stop 09/25/21 at 17:59; Status DC Hydromorphone HCl (Dilaudid) 0.5 mg PRN Q10MIN PRN IVP SEVERE PAIN 7-10, 2nd CHOICE Last administered on 09/25/21at 16:53; Start 09/25/21 at 06:00; Stop 09/25/21 at 20:00; Status DC Prochlorperazine Edisylate (Compazine) 5 mg PACU PRN PRN IVP NAUSEA, MRX1; Start 09/25/21 at 06:00; Stop 09/25/21 at 20:00; Status DC Cefazolin Sodium 1 gm/Sodium Chloride 1,000 ml @ 1,000 mls/hr 1X ONCE IRR Last administered on 09/25/21at 10:14; Start 09/25/21 at 06:00; Stop 09/25/21 at 06:59; Status DC Cefazolin Sodium/ Dextrose 50 ml @ 100 mls/hr 1X PREOP PRN IV PRIOR TO PROCEDURE Last administered on 09/25/21at 09:30; Start 09/25/21 at 06:00; Stop 09/25/21 at 13:39; Status DC Insulin Human Lispro (HumaLOG VIAL for OP,RR ONLY) 0-10 units PRN Q1HR PRN SQ PER PROTOCOL Last administered on 09/25/21at 17:01; Start 09/25/21 at 07:00; Stop 09/25/21 at 18:00; Status DC Bupivacaine HCl/ Epinephrine Bitart (Sensorcain-Epi 0.5% Kit) 30 ml STK-MED ONCE INJ Last administered on 09/25/21at 10:14; Start 09/25/21 at 10:14; Stop 09/25/21 at 10:30; Status DC Ketorolac Tromethamine (Toradol Im) 60 mg STK-MED ONCE INJ Last administered on 09/25/21at 10:14; Start 09/25/21 at 10:14; Stop 09/25/21 at 10:30; Status DC Thrombin 20,000 unit STK-MED ONCE TP Last administered on 09/25/21at 10:14; Start 09/25/21 at 10:14; Stop 09/25/21 at 10:30; Status DC Gelatin (Gelfoam Size 100) 1 each STK-MED ONCE TP Last administered on 09/25/21at 10:14; Start 09/25/21 at 10:14; Stop 09/25/21 at 10:30; Status DC Acetaminophen (Tylenol) 650 mg PRN Q4HRS PRN PO TEMP OVER 100.4F OR MILD PAIN Last administered on 10/24/21at 15:43; Start 09/25/21 at 12:30 Aspirin (Aspirin Chewable) 81 mg DAILY PO Last administered on 09/26/21 08:30; Start 09/26/21 at 09:00; Stop 09/28/21 at 17:19; Status DC Atorvastatin Calcium (Lipitor) 10 mg QHS PO Last administered on 10/26/21at 21:13; Start 09/25/21 at 21:00 Baclofen (Lioresal) 10 mg BID PO Last administered on 10/16/21at 08:26; Start 09/25/21 at 21:00; Stop 10/16/21 at 13:21; Status DC Diazepam (Valium) 5 mg TID PO Last administered on 10/22/21 12:35; Start 09/25/21 at 14:00; Stop 10/22/21 at 19:23; Status DC Docusate Sodium (Colace) 100 mg PRN BID PRN PO HARD STOOLS Last administered on 10/15/21 10:22; Start 09/25/21 at 12:30 Fluticasone Propionate (Flonase) 2 spray DAILY NS Last administered on 10/17/21at 12:58; Start 09/26/21 at 09:00 Hydroxyzine HCl (Atarax) 25 mg PRN Q6HRS PRN PO Itching (2ND Choice) Last administered on 10/25/21 23:01; Start 09/25/21 at 12:30 Lidocaine (Lidoderm) 1 patch QHS TP Last administered on 10/03/21 23:31; Start 09/25/21 at 20:00; Stop 10/05/21 at 01:01; Status DC Linagliptin (Tradjenta) 5 mg DAILY PO Last administered on 10/27/21at 09:19; Start 09/25/21 at 13:00 Miconazole Nitrate (Monistat-Derm) 1 crispin TID TP Last administered on 10/04/21at 20:08; Start 09/25/21 at 21:00; Stop 10/05/21 at 13:23; Status DC Midodrine (Proamatine) 2.5 mg PRN 1X PRN PO hypotension Last administered on 09/27/21at 08:56; Start 09/25/21 at 12:30 Oxycodone HCl (Roxicodone) 10 mg PRN Q6HRS PRN PO MODERATE-SEVERE PAIN Last administered on 10/22/21at 12:35; Start 09/25/21 at 12:30; Stop 10/22/21 at 16:20; Status DC Diclofenac Sodium (Voltaren) 1 crispin PRN TID PRN TP PAIN CONTROL; Start 09/25/21 at 13:15; Stop 09/25/21 at 18:37; Status DC Insulin Glargine (Lantus Syringe) 4 unit QHS SQ Last administered on 10/26/21at 21:22; Start 09/25/21 at 21:00 Losartan Potassium (Cozaar) 25 mg DAILY08 PO Last administered on 10/27/21at 09:19; Start 09/26/21 at 08:00 Polyethylene Glycol (miraLAX PACKET) 17 gm DAILY PO Last administered on 10/13/21at 08:53; Start 09/25/21 at 14:00 Pregabalin (Lyrica) 100 mg BID PO Last administered on 10/27/21at 09:20; Start 09/25/21 at 21:00 Acetaminophen (Tylenol) 650 mg PRN Q6HRS PRN PO MILD PAIN / TEMP > 100.3'F; Start 09/25/21 at 12:30; Status Cancel Al Hydroxide/Mg Hydroxide (Mylanta Plus Xs) 30 ml PRN Q3HRS PRN PO HEARTBURN / GAS; Start 09/25/21 at 12:30 Calcium Carbonate/ Glycine (Tums) 500 mg PRN Q3HRS PRN PO INDIGESTION; Start 09/25/21 at 12:30 Diphenhydramine HCl (Benadryl) 25 mg PRN Q6HRS PRN PO ITCHING (1ST CHOICE) Last administered on 10/26/21at 23:05; Start 09/25/21 at 12:30 Naloxone HCl (Narcan) 0.1 mg PRN Q2MIN PRN IV SEE COMMENTS; Start 09/25/21 at 12:30 Sodium Chloride (Normal Saline Flush) 3 ml QSHIFT PRN IV AFTER MEDS AND BLOOD DRAWS; Start 09/25/21 at 12:30 Potassium Chloride/Sodium Chloride 1,000 ml @ 75 mls/hr [id number] IV Last administered on 09/26/21at 07:00; Start 09/25/21 at 12:30; Stop 09/26/21 at 17:33; Status DC Magnesium Hydroxide (Milk Of Magnesia) 2,400 mg PRN Q12HR PRN PO CONSTIPATION; Start 09/25/21 at 12:30 Cefazolin Sodium (Ancef) 1 gm Q8H IVP Last administered on 09/26/21at 04:14; Start 09/25/21 at 18:00; Stop 09/26/21 at 10:01; Status DC Fentanyl Citrate (Fentanyl 2ml Vial) 50 mcg PRN Q2HR PRN IVP MODERATE TO SEVERE PAIN Last administered on 10/05/21at 22:46; Start 09/25/21 at 12:30 Dextrose (Dextrose 50%-Water Syringe) 12.5 gm PRN Q15MIN PRN IV SEE COMMENTS; Start 09/25/21 at 12:30; Status Cancel Dextrose (Iv Dextrose 5%) 250 ml PRN Q15MIN PRN IV SEE COMMENTS; Start 09/25/21 at 12:30; Status Cancel Gelatin (Gelfoam Size 100) 1 each STK-MED ONCE .ROUTE ; Start 09/25/21 at 06:37; Stop 09/25/21 at 14:55; Status DC Bupivacaine HCl/ Epinephrine Bitart (Sensorcain-Epi 0.5% Kit) 30 ml STK-MED ONCE .ROUTE ; Start 09/25/21 at 06:37; Stop 09/25/21 at 14:55; Status DC Ketorolac Tromethamine (Toradol Im) 60 mg STK-MED ONCE .ROUTE ; Start 09/25/21 at 06:37; Stop 09/25/21 at 14:55; Status DC Thrombin 20,000 unit STK-MED ONCE TP ; Start 09/25/21 at 06:38; Stop 09/25/21 at 14:55; Status DC Propofol (Diprivan) 200 mg STK-MED ONCE IV ; Start 09/25/21 at 05:54; Stop 09/25/21 at 14:57; Status DC Lidocaine HCl (Lidocaine Pf 2% Vial) 5 ml STK-MED ONCE .ROUTE ; Start 09/25/21 at 05:54; Stop 09/25/21 at 14:57; Status DC Ondansetron HCl (Zofran) 4 mg STK-MED ONCE .ROUTE ; Start 09/25/21 at 05:54; Stop 09/25/21 at 14:57; Status DC Phenylephrine HCl (Ramone-Synephrine Inj) 10 mg STK-MED ONCE .ROUTE ; Start 09/25/21 at 05:54; Stop 09/25/21 at 14:57; Status DC Propofol 50 ml @ As Directed STK-MED ONCE IV ; Start 09/25/21 at 05:54; Stop 09/25/21 at 14:57; Status DC Dexamethasone Sodium Phosphate (Decadron) 4 mg STK-MED ONCE .ROUTE ; Start 09/25/21 at 05:54; Stop 09/25/21 at 14:57; Status DC Fentanyl Citrate (Fentanyl 2ml Vial) 100 mcg STK-MED ONCE .ROUTE ; Start 09/25/21 at 05:54; Stop 09/25/21 at 14:57; Status DC Succinylcholine Chloride (Anectine) 200 mg STK-MED ONCE .ROUTE ; Start 09/25/21 at 05:54; Stop 09/25/21 at 14:57; Status DC Remifentanil HCl (Ultiva) 1 mg STK-MED ONCE IV ; Start 09/25/21 at 05:54; Stop 09/25/21 at 14:57; Status DC Glycopyrrolate (Robinul) 1 mg STK-MED ONCE .ROUTE ; Start 09/25/21 at 07:11; Stop 09/25/21 at 15:01; Status DC Propofol 50 ml @ As Directed STK-MED ONCE IV ; Start 09/25/21 at 08:07; Stop 09/25/21 at 15:02; Status DC Ketamine HCl (Ketamine) 50 mg STK-MED ONCE .ROUTE ; Start 09/25/21 at 08:15; Stop 09/25/21 at 15:02; Status DC Hydromorphone HCl (Dilaudid) 2 mg STK-MED ONCE .ROUTE ; Start 09/25/21 at 10:44; Stop 09/25/21 at 15:03; Status DC Fentanyl Citrate (Fentanyl 2ml Vial) 100 mcg STK-MED ONCE .ROUTE ; Start 09/25/21 at 13:26; Stop 09/25/21 at 15:04; Status DC Morphine Sulfate (Morphine Sulfate) 2 mg STK-MED ONCE .ROUTE ; Start 09/25/21 at 14:04; Stop 09/25/21 at 15:05; Status DC Hydromorphone HCl (Dilaudid) 2 mg STK-MED ONCE .ROUTE ; Start 09/25/21 at 14:54; Stop 09/25/21 at 15:06; Status DC Menthol/Methyl Salicylate ([place] Greaseless Cream) 1 crispin PRN Q30MIN PRN TP MUSCLE PAIN Last administered on 10/02/21at 21:03; Start 09/25/21 at 18:45 Mupirocin (Bactroban) 1 crispin BID NS Last administered on 10/12/21at 21:09; Start 09/26/21 at 09:00; Stop 10/13/21 at 07:56; Status DC Dexamethasone Sodium Phosphate (Decadron) 10 mg 1X ONCE IVP Last administered on 09/26/21at 07:31; Start 09/26/21 at 07:30; Stop 09/26/21 at 07:31; Status DC Cefazolin Sodium 1 gm/Sodium Chloride 1,000 ml @ 1,000 mls/hr 1X ONCE IRR Last administered on 09/26/21at 11:52; Start 09/26/21 at 10:30; Stop 09/26/21 at 11:29; Status DC Cefazolin Sodium (Ancef) 1 gm STK-MED ONCE IVP ; Start 09/26/21 at 10:05; Stop 09/26/21 at 10:06; Status DC Lidocaine HCl (Lidocaine Pf 2% Vial) 5 ml STK-MED ONCE .ROUTE ; Start 09/26/21 at 10:18; Stop 09/26/21 at 10:18; Status DC Ondansetron HCl (Zofran) 4 mg STK-MED ONCE .ROUTE ; Start 09/26/21 at 10:18; Stop 09/26/21 at 10:18; Status DC Propofol (Diprivan) 200 mg STK-MED ONCE IV ; Start 09/26/21 at 10:18; Stop 09/26/21 at 10:19; Status DC Dexamethasone Sodium Phosphate (Decadron) 4 mg STK-MED ONCE .ROUTE ; Start 09/26/21 at 10:18; Stop 09/26/21 at 10:19; Status DC Sevoflurane (Ultane) 30 ml STK-MED ONCE IH ; Start 09/26/21 at 10:18; Stop 09/26/21 at 10:19; Status DC Fentanyl Citrate (Fentanyl 2ml Vial) 100 mcg STK-MED ONCE .ROUTE ; Start 09/26/21 at 10:19; Stop 09/26/21 at 10:19; Status DC Rocuronium [place] (Zemuron) 50 mg STK-MED ONCE .ROUTE ; Start 09/26/21 at 10:19; Stop 09/26/21 at 10:19; Status DC Insulin Human Lispro (HumaLOG VIAL for OP,RR ONLY) 0-10 units PRN Q1HR PRN SQ PER PROTOCOL Last administered on 09/26/21at 15:11; Start 09/26/21 at 10:30; Stop 09/26/21 at 18:00; Status DC Sugammadex Sodium (Bridion) 200 mg 1X ONCE IVP Last administered on 09/26/21at 10:30; Start 09/26/21 at 10:30; Stop 09/26/21 at 10:31; Status DC Gelatin (Gelfoam Size 100) 1 each STK-MED ONCE .ROUTE Last administered on 09/26/21at 11:52; Start 09/26/21 at 10:30; Stop 09/26/21 at 10:30; Status DC Bupivacaine HCl/ Epinephrine Bitart (Sensorcain-Epi 0.5% Kit) 30 ml STK-MED ONCE .ROUTE ; Start 09/26/21 at 10:30; Stop 09/26/21 at 10:30; Status DC Ketorolac Tromethamine (Toradol Im) 60 mg STK-MED ONCE .ROUTE ; Start 09/26/21 at 10:30; Stop 09/26/21 at 10:30; Status DC Thrombin 20,000 unit STK-MED ONCE TP Last administered on 09/26/21at 11:52; Start 09/26/21 at 10:30; Stop 09/26/21 at 10:31; Status DC Cefazolin Sodium/ Dextrose 50 ml @ As Directed STK-MED ONCE IV ; Start 09/26/21 at 10:32; Stop 09/26/21 at 10:32; Status DC Vancomycin HCl 1 gm/Sodium Chloride 250 ml @ 250 mls/hr PREOP PRN PRN IV PRIOR TO PROCEDURE; Start 09/26/21 at 10:45; Stop 09/26/21 at 14:00; Status DC Cefazolin Sodium/ Dextrose 50 ml @ 100 mls/hr 1X ONCE IV Last administered on 09/26/21at 11:00; Start 09/26/21 at 11:00; Stop 09/26/21 at 11:29; Status DC Dexamethasone Sodium Phosphate (Decadron) 4 mg STK-MED ONCE .ROUTE ; Start 09/26/21 at 11:04; Stop 09/26/21 at 11:04; Status DC Glycopyrrolate (Robinul) 1 mg STK-MED ONCE .ROUTE ; Start 09/26/21 at 11:04; Stop 09/26/21 at 11:04; Status DC Hydromorphone HCl (Dilaudid) 2 mg STK-MED ONCE .ROUTE ; Start 09/26/21 at 11:56; Stop 09/26/21 at 11:56; Status DC Fentanyl Citrate (Fentanyl 2ml Vial) 25 mcg PRN Q5MIN PRN IVP MILD PAIN 1-3; Start 09/26/21 at 14:30; Stop 09/26/21 at 18:15; Status DC Fentanyl Citrate (Fentanyl 2ml Vial) 50 mcg PRN Q5MIN PRN IVP MODERATE PAIN 4- 6; Start 09/26/21 at 14:30; Stop 09/26/21 at 18:15; Status DC Morphine Sulfate (Morphine Sulfate) 1 mg PRN Q10MIN PRN IVP SEVERE PAIN 7-10; Start 09/26/21 at 14:30; Stop 09/26/21 at 18:15; Status DC Ringer's Solution 1,000 ml @ 30 mls/hr Q24H IV Last administered on 09/26/21at 15:18; Start 09/26/21 at 14:30; Stop 09/26/21 at 21:00; Status DC Hydromorphone HCl (Dilaudid) 0.5 mg PRN Q10MIN PRN IVP SEVERE PAIN 7-10, 2nd CHOICE; Start 09/26/21 at 14:30; Stop 09/26/21 at 18:15; Status DC Prochlorperazine Edisylate (Compazine) 5 mg PACU PRN PRN IVP NAUSEA, MRX1; Start 09/26/21 at 14:30; Stop 09/26/21 at 21:00; Status DC Fentanyl Citrate (Fentanyl 2ml Vial) 100 mcg STK-MED ONCE .ROUTE ; Start 09/26/21 at 14:23; Stop 09/26/21 at 14:25; Status DC Fentanyl Citrate (Fentanyl 2ml Vial) 25 mcg PRN Q5MIN PRN IVP MILD PAIN 1-3; Start 09/26/21 at 14:30; Stop 09/27/21 at 14:29; Status UNV Fentanyl Citrate (Fentanyl 2ml Vial) 50 mcg PRN Q5MIN PRN IVP MODERATE PAIN 4- 6; Start 09/26/21 at 14:30; Stop 09/27/21 at 14:29; Status UNV Morphine Sulfate (Morphine Sulfate) 1 mg PRN Q10MIN PRN IVP SEVERE PAIN 7-10; Start 09/26/21 at 14:30; Stop 09/27/21 at 14:29; Status UNV Ringer's Solution 1,000 ml @ 30 mls/hr Q24H IV ; Start 09/26/21 at 14:30; Stop 09/27/21 at 02:29; Status UNV Hydromorphone HCl (Dilaudid) 0.5 mg PRN Q10MIN PRN IVP SEVERE PAIN 7-10, 2nd CHOICE; Start 09/26/21 at 14:30; Stop 09/27/21 at 14:29; Status UNV Prochlorperazine Edisylate (Compazine) 5 mg PACU PRN PRN IVP NAUSEA, MRX1; Start 09/26/21 at 14:30; Stop 09/27/21 at 14:29; Status UNV Dexamethasone Sodium Phosphate (Decadron) 4 mg Q6HRS IVP Last administered on 09/28/21at 05:06; Start 09/26/21 at 18:00; Stop 09/28/21 at 06:00; Status DC Sodium Chloride 1,000 ml @ 100 mls/hr Q10H IV Last administered on 10/05/21at 06:41; Start 09/26/21 at 17:30; Stop 10/05/21 at 13:48; Status DC Cefazolin Sodium (Ancef) 1 gm Q8HRS IVP ; Start 09/27/21 at 06:00; Stop 09/27/21 at 05:47; Status DC Vancomycin HCl 1 gm/Sodium Chloride 250 ml @ 166.667 mls/hr 1X ONCE IV Last administered on 09/27/21at 06:27; Start 09/27/21 at 06:00; Stop 09/27/21 at 07:29; Status DC Gadoterate Meglumine (Clariscan) 19 ml 1X ONCE IVP Last administered on 09/29/21at 10:32; Start 09/29/21 at 08:15; Stop 09/29/21 at 08:17; Status DC Bisacodyl (Dulcolax Supp) 10 mg PRN DAILY PRN [place] CONSTIPATION; Start 09/29/21 at 14:15 Lactulose (Lactulose) 20 gm PRN DAILY PRN PO CONSTIPATION, 2nd choice Last administered on 10/01/21at 08:35; Start 09/29/21 at 14:30 Ascorbic Acid (Vitamin C) 500 mg DAILY PO Last administered on 10/27/21at 09:19; Start 10/02/21 at 10:00 Levofloxacin/ Dextrose 100 ml @ 100 mls/hr Q24H IV Last administered on 10/02/21at 12:15; Start 10/02/21 at 12:00; Stop 10/03/21 at 08:57; Status DC Levofloxacin/ Dextrose 50 ml @ 50 mls/hr Q24H IV Last administered on 10/06/21at 15:19; Start 10/03/21 at 12:00; Stop 10/06/21 at 23:00; Status DC Lactobacillus Rhamnosus (Culturelle) 1 cap BID PO Last administered on 10/27/21at 09:19; Start 10/03/21 at 21:00 Lidocaine (Lidoderm) 1 patch QHS TP Last administered on 10/26/21at 21:14; Start 10/04/21 at 22:00 Levofloxacin (Levaquin) 250 mg DAILY06 PO Last administered on 10/11/21at 06:13; Start 10/07/21 at 06:00; Stop 10/11/21 at 12:00; Status DC Insulin Human Lispro (HumaLOG) 0-5 UNITS TIDWMEALS SQ Last administered on 10/18/21at 12:16; Start 10/12/21 at 08:00; Stop 10/19/21 at 15:15; Status DC Dextrose (Dextrose 50%-Water Syringe) 12.5 gm PRN Q15MIN PRN IV SEE COMMENTS; Start 10/11/21 at 19:00 Dextrose (Iv Dextrose 5%) 250 ml PRN Q15MIN PRN IV SEE COMMENTS; Start 10/11/21 at 19:00 Potassium Chloride (Klor-Con) 40 meq 1X ONCE PO Last administered on 10/15/21at 10:21; Start 10/15/21 at 10:30; Stop 10/15/21 at 10:31; Status DC Magnesium Sulfate 50 ml @ 25 mls/hr 1X ONCE IV Last administered on 10/15/21at 10:20; Start 10/15/21 at 10:30; Stop 10/15/21 at 12:29; Status DC Baclofen (Lioresal) 10 mg Q8HRS PO Last administered on 10/17/21at 06:02; Start 10/16/21 at 22:00; Stop 10/17/21 at 11:58; Status DC Baclofen (Lioresal) 10 mg Q6HRS PO Last administered on 10/27/21at 12:12; Start 10/17/21 at 12:00 Triamcinolone Acetonide (Kenalog-40) 40 mg 1X ONCE IM Last administered on 10/17/21at 12:15; Start 10/17/21 at 12:15; Stop 10/17/21 at 12:16; Status DC Bupivacaine HCl (Sensorcaine-Mpf 0.25%) 10 ml 1X ONCE IJ Last administered on 10/17/21at 12:00; Start 10/17/21 at 12:00; Stop 10/17/21 at 12:01; Status DC Magnesium Sulfate 100 ml @ 25 mls/hr 1X ONCE IV Last administered on 10/18/21at 14:11; Start 10/18/21 at 14:30; Stop 10/18/21 at 18:29; Status DC Vitamin B Complex (Folbic Tablet) 1 tab DAILY PO Last administered on 10/27/21at 09:19; Start 10/18/21 at 14:30 Non-Formulary Medication (L-Carnitine 500 Mg Capsule) 1 ea DAILY PO Last administered on 10/27/21at 09:19; Start 10/19/21 at 13:00 Insulin Human Lispro (HumaLOG) 0-5 UNITS PRN BFRMEAL PRN SQ SEE ADMIN INSTRUCTIONS Last administered on 10/22/21at 12:46; Start 10/19/21 at 15:15 Oxycodone HCl (Roxicodone) 5 mg PRN Q3HRS PRN PO MODERATE-SEVERE PAIN Last administered on 10/27/21at 12:12; Start 10/22/21 at 16:30 Diazepam (Valium) 5 mg PRN TID PRN PO ANXIETY Last administered on 10/26/21at 23:05; Start 10/22/21 at 19:30 Bacitracin (Bacitracin Zinc Oint Pkt) 1 pkt BID TP Last administered on 10/27/21at 09:20; Start 10/25/21 at 13:00 COVID-19 Vacc mRNA LNP-S (MOD) (PF) (Moderna Covid19 Vaccine) 0.25 ml ONCE ONCE VAX IM Last administered on 10/26/21at 15:31; Start 10/26/21 at 15:15; Stop 10/17 at 15:17; Status DC Active Scripts Active Oxycodone Hcl Immed.release (Oxycodone Hcl) 5 Mg Tablet 5 Mg PO PRN Q3HRS PRN 10 Days Baclofen 10 Mg Tablet 10 Mg PO Q6HRS 30 Days Dok (Docusate Sodium) 100 Mg Capsule 100 Mg PO PRN BID PRN 30 Days Tylenol (Acetaminophen) 325 Mg Tablet 650 Mg PO PRN Q4HRS PRN 30 Days Valium (Diazepam) 5 Mg Tablet 5 Mg PO TID Atorvastatin Calcium 10 Mg Tablet 10 Mg PO QHS Reported Midodrine Hcl 2.5 Mg Tablet 2.5 Mg PO PRN 1X PRN Aspirin 81 Mg Tab.chew 81 Mg PO DAILY Baclofen 10 Mg Tablet 10 Mg PO BID Lyrica (Pregabalin) 100 Mg Capsule 100 Mg PO BID 30 Days Polyethylene Glycol 3350 2,500 Gm Powder 17 Gm PO DAILY 30 Days Micatin (Miconazole Nitrate) 14 Gm Cream..g. 1 [place] TP TID Tradjenta (Linagliptin) 5 Mg Tablet 5 Mg PO DAILY Lidocaine PATCH (Lidocaine) 1 Each Adh..patch 1 Each TP DAILY REMOVE AFTER 12 HOURS Levemir (Insulin Detemir) 100 Unit/1 Ml Vial 4 Unit SQ HS Hydroxyzine Hcl 25 Mg Tablet 25 Mg PO PRN Q6HRS PRN Fluticasone Propionate Nasal [place] (Fluticasone Propionate) 16 Gm [place].susp 2 [place] NS DAILY Diclofenac Sodium 100 Gm Gel..gram. 100 Gm TP PRN TID PRN Losartan Potassium 100 Mg Tablet 25 Tab PO DAILY08 Vitals/I & O Vital Sign - Last 24 Hours 10/26/21 10/26/21 10/26/21 10/26/21 15:00 19:00 20:00 21:14 Temp 98.2 98.4 98.2 98.4 Pulse 69 79 Resp 18 16 16 B/P (MAP) 134/62 (86) 137/63 (87) Pulse Ox 98 97 O2 Delivery Room Air Room Air 10/26/21 10/26/21 10/27/21 10/27/21 21:50 23:00 00:07 01:48 Temp 98.0 98.0 Pulse 73 Resp 16 16 16 16 B/P (MAP) 144/76 (98) Pulse Ox 99 O2 Delivery Room Air 10/27/21 10/27/21 10/27/21 10/27/21 03:00 03:09 03:40 06:11 Temp 97.9 97.9 Pulse 59 Resp 16 16 16 16 B/P (MAP) 119/66 (83) Pulse Ox 98 O2 Delivery Room Air 10/27/21 10/27/21 10/27/21 10/27/21 06:48 07:00 08:00 09:19 Temp 97.8 97.8 Pulse 62 62 Resp 16 16 B/P (MAP) 110/58 (75) 110/58 Pulse Ox 97 O2 Delivery Room Air Room Air 10/27/21 10/27/21 10/27/21 10/27/21 09:20 10:36 10:37 12:12 Temp 97.6 97.6 Pulse 68 Resp 16 B/P (MAP) 136/77 (96) Pulse Ox 97 96 97 97 O2 Delivery Room Air Room Air Room Air Room Air O2 Flow Rate 2.0 2.0 Intake and Output 10/26/21 10/26/21 10/27/21 15:00 23:00 07:00 Output Total 950 ml 900 ml Balance -950 ml -900 ml Justifications for Admission Other Justification uncontrolled diabetes TODD RIVERA [employer] Oct 27, 2021 13:08
[2021-10-27 15:00] VITALS: BP 127/81
--- NOTE | 2021-10-29 16:26 | PDOC3 ---
[facility]-Discharge Summary Date of Admission: Date of Admission: Sep 25, 2021 Date of Discharge: Date of Discharge: Oct 27, 2021 Admission Diagnosis: Admitting Diagnosis: cervical stenosis Hospital Course: Hospital Course: hief Complaint Cervical spinal cord injury - Concern for C5 cord edema, cord compression, a right lateral C5 fracture, and concern for numerous ligamentous injuries. 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 S/p decompression 07/26/2021 and repeat surgeries 09/25 and 09/26 Diabetes - sliding scale plus basal HTN - prn hydralazine HLD - statin when taking PO Cervical laminectomy as per above, diabetes, hypertension, hyperlipidemia, arthritis, GERD, left knee arthroplasty and TIA S/p; IVC filter FEN - ADAT PPX - SCDs FULL CODE Dispo - Inpatient History of Present Illness History of Present Illness 10/26 Patient evaluated examined at bedside. Resting in bed no complaints. waiting on transfer to skilled facility. physiatry and neuro following, 10/27 Evaluated examined at bedside. Accepted to long-term. Discharge today. Patient agreeable. greater than 30 minutes spent on discharge. Disposition: Disposition/Orders: D/C to Another Facility Activity: Activity: Resume previous activity Diet: Diet: Regular Medications: Home Meds Active Scripts Oxycodone Hcl (OXYCODONE HCL IMMED.RELEASE ) 5 Mg Tablet, 5 MG PO PRN Q3HRS PRN for MODERATE-SEVERE PAIN for 10 Days, #30 TAB Prov:STACY LÓPEZ MD 10/27/21 Baclofen (BACLOFEN) 10 Mg Tablet, 10 MG PO Q6HRS for pain for 30 Days, #120 TAB Prov:STACY LÓPEZ MD 10/27/21 Docusate Sodium (DOK) 100 Mg Capsule, 100 MG PO PRN BID PRN for HARD STOOLS for 30 Days, #60 CAP Prov:AIDE LENTZ MD 09/17/20 Acetaminophen (TYLENOL) 325 Mg Tablet, 650 MG PO PRN Q4HRS PRN for TEMP OVER 100.4F OR MILD PAIN for 30 Days, #60 TAB Prov:AIDE LENTZ MD 09/17/20 Diazepam (VALIUM) 5 Mg Tablet, 5 MG PO TID for SPASM, #15 TAB Prov:CINDA ERNANDEZ MD 06/30/20 Atorvastatin Calcium (ATORVASTATIN CALCIUM) 10 Mg Tablet, 10 MG PO QHS, #30 TAB- CAP Prov:TIMMY MARTINS MD 11/20/16 Reported Medications Midodrine Hcl (MIDODRINE HCL) 2.5 Mg Tablet, 2.5 MG PO PRN 1X PRN for hypotension, TAB 09/22/21 Aspirin (ASPIRIN) 81 Mg Tab.chew, 81 MG PO DAILY for blood thinner, TAB.CHEW 09/22/21 Baclofen (BACLOFEN) 10 Mg Tablet, 10 MG PO BID 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, #30 TAB 0 Refills 09/21/21 Pregabalin (LYRICA) 100 Mg Capsule, 100 MG PO BID for neurological pain for 30 Days, CAP 0 Refills 09/21/21 Polyethylene Glycol 3350 (POLYETHYLENE GLYCOL 3350) 2,500 Gm Powder, 17 GM PO DAILY for constipation for 30 Days, #527 GM 0 Refills 09/21/21 Miconazole Nitrate (MICATIN) 14 Gm Cream..g., 1 MARTHA TP TID for treat tinea pedis, EACH 09/21/21 Linagliptin (TRADJENTA) 5 Mg Tablet, 5 MG PO DAILY for TYPE 2 DIABETES, TAB 09/21/21 Lidocaine (Lidocaine PATCH ) 1 Each Adh..patch, 1 EACH TP DAILY for FOR LOCAL PAIN, PATCH REMOVE AFTER 12 HOURS 09/21/21 Insulin Detemir (LEVEMIR) 100 Unit/1 Ml Vial, 4 UNIT SQ HS for control diabetes, EACH 09/21/21 Hydroxyzine Hcl (HYDROXYZINE HCL) 25 Mg Tablet, 25 MG PO PRN Q6HRS PRN for itching, TAB 09/21/21 Fluticasone Propionate (FLUTICASONE PROPIONATE NASAL SPRAY) 16 Gm [place].susp, 2 SPRAY NS DAILY for control allergies, EACH 09/21/21 Diclofenac Sodium (DICLOFENAC SODIUM) 100 Gm Gel..gram., 100 GM TP PRN TID PRN for pain control, EACH 09/21/21 Losartan Potassium (LOSARTAN POTASSIUM) 100 Mg Tablet, 25 TAB PO DAILY08 for bp control, #30 11/18/16 Scheduled Aspirin (Aspirin), 81 MG PO DAILY, (Reported) Atorvastatin Calcium (Atorvastatin Calcium), 10 MG PO QHS Baclofen (Baclofen), 10 MG PO BID, (Reported) Baclofen (Baclofen), 10 MG PO Q6HRS Diazepam (Valium), 5 MG PO TID Fluticasone Propionate (Fluticasone Propionate Nasal [place]), 2 SPRAY NS DAILY, (Reported) Insulin Detemir (Levemir), 4 UNIT SQ HS, (Reported) Lidocaine (Lidocaine PATCH ), 1 EACH TP DAILY, (Reported) Linagliptin (Tradjenta), 5 MG PO DAILY, (Reported) Losartan Potassium (Losartan Potassium), 25 TAB PO DAILY08, (Reported) Miconazole Nitrate (Micatin), 1 MARTHA TP TID, (Reported) Polyethylene Glycol 3350 (Polyethylene Glycol 3350), 17 GM PO DAILY, (Reported) Pregabalin (Lyrica), 100 MG PO BID, (Reported) Scheduled PRN Acetaminophen (Tylenol), 650 MG PO PRN Q4HRS PRN for TEMP OVER 100.4F OR MILD PAIN Diclofenac Sodium (Diclofenac Sodium), 100 GM TP PRN TID PRN for pain control, (Reported) Docusate Sodium (Dok), 100 MG PO PRN BID PRN for HARD STOOLS Hydroxyzine Hcl (Hydroxyzine Hcl), 25 MG PO PRN Q6HRS PRN for itching, (Reported) Midodrine Hcl (Midodrine Hcl), 2.5 MG PO PRN 1X PRN for hypotension, (Reported) Oxycodone Hcl (Oxycodone Hcl Immed.release ), 5 MG PO PRN Q3HRS PRN for MODERATE-SEVERE PAIN Justicifation of Admission Dx: Justifications for Admission: Justification of Admission Dx: Yes STACY LÓPEZ MD Oct 29, 2021 16:26
== END 2021-10-27 15:55 | DRG 28 ==
LOC: OPSVCIP 06:51 → 4 SOUTHEST 17:32 → 1 WEST ICU 09-26 15:28 → 4 SOUTHEST 10-16 11:15 → 4 NORTH 10-20 15:44
PROVIDERS: ADMIT Neurological Surgery; ATTEND Neurological Surgery
PROC: 01N10ZZ Release Cervical Nerve, Open Approach (ICD-10-PCS; 2021-09-25)
PROC: 4A11X4G Monitoring of Peripheral Nervous Electrical Activity, Intraoperative, External Approach (ICD-10-PCS; 2021-09-25)
PROC: 0RG2071 Fusion of 2 or more Cervical Vertebral Joints with Autologous Tissue Substitute, Posterior Approach, Posterior Column, Open Approach (ICD-10-PCS; principal; 2021-09-25 08:30)
PROC: 00CU0ZZ Extirpation of Matter from Spinal Canal, Open Approach (ICD-10-PCS; 2021-09-26)
PROC: 01N10ZZ Release Cervical Nerve, Open Approach (ICD-10-PCS; 2021-09-26)
PROC: 30233N1 Transfusion of Nonautologous Red Blood Cells into Peripheral Vein, Percutaneous Approach (ICD-10-PCS; 2021-09-27)
DX: G95.89 Other specified diseases of spinal cord (principal); S14.102A Unspecified injury at C2 level of cervical spinal cord, initial encounter; G82.50 Quadriplegia, unspecified; K21.9 Gastro-esophageal reflux disease without esophagitis; M48.02 Spinal stenosis, cervical region; D64.9 Anemia, unspecified; E11.40 Type 2 diabetes mellitus with diabetic neuropathy, unspecified; E78.5 Hyperlipidemia, unspecified; I10 Essential (primary) hypertension; M43.00 Spondylolysis, site unspecified; M47.819 Spondylosis without myelopathy or radiculopathy, site unspecified; S20.229A Contusion of unspecified back wall of thorax, initial encounter; Z82.49 Family history of ischemic heart disease and other diseases of the circulatory system; Z83.3 Family history of diabetes mellitus; Z86.73 Personal history of transient ischemic attack (TIA), and cerebral infarction without residual deficits; Z91.81 History of falling; Z95.828 Presence of other vascular implants and grafts; Z96.652 Presence of left artificial knee joint; Z98.1 Arthrodesis status; W18.39XA Other fall on same level, initial encounter; Y93.89 Activity, other specified; Y92.89 Other specified places as the place of occurrence of the external cause; Y99.8 Other external cause status; Z23 Encounter for immunization
CPT/HCPCS: 0064A; 36415; 36430; 71045; 72125; 72156; 73030; 76000; 80048; 80053; 81001; 82550; 82607; 82962; 83735; 84100; 84443; 85014; 85018; 85025; 85027; 85610; 85730; 86850; 86900; 86901; 86920; 87077; 87086; 87186; 87641; 88304; 88311; 91301; A4222; A4223; A4364; A4452; A4556; A4657; A4930; A6254; A6255; A6258; A9575; C1713; J0330; J0690; J1100; J1170; J1815; J1885; J1956; J2270; J2370; J2405; J2704; J3010; J3301; J3370; J3475; J3480; J3490; J7030; J7050; J7120; P9016; U0003; 97110-GO; 97110-GP; 97112-GO; 97112-GP; 97140-GP; 97530-GO; 97530-GP; 97535-GO; G0378; Q0163